=== PATIENT | male | born 1960 | race Caucasian/White ===

== ENCOUNTER → 2016-08-13 | Outpatient (CLI) | payer BC ==
[~2016-08-13] MED LIST: /ADVA50050; /ADVA50050 IN; /CELE20CA; /GLIM2TA; ACET65TA OR; ALBU83IN INH; AVAN8TAB3; CEFT500T OR; CEPACOL PO; CIPR500T19; CLAR5CHW OR; COLA100C2; DOXY100T PO; DUONSOL IN; ECOT325T5 PO; GLUC850T; GLUC850T PO; HYDR25TA6 OR; IBUP800T; IBUP800T OR; INSUDET SC; INSUH10VL SC; INSUHUMDS SC; IPRASOL4 IN; LEVEMIR INSULIN SC; LEVO175T3; LEVO200T4 PO; LEVO25TA5 PO; LEVO25TABR OR; LISI10TA4; LOPR50TA OR; LORATADINE; LOVA20TA2 PO; MUCI600T34 PO; MUCINEX PO; Omnicef PO; PAXI20TA PO; PRED10TA2 OR; PRED20TA PO; PROP10TAB; PROP10TAB PO; RANI150C PO; SING10TA31 PO; TYLE325T5 PO; VALS80CA OR; VENTAER IN; VICO5TAB; [UNRECOGNIZED DRUG - OTHER]; [UNRECOGNIZED DRUG - OTHER] PO; [UNRECOGNIZED DRUG - OTHER] PO
--- NOTE | 2016-08-14 02:56 | REP ---
Clinical: Right hip pain. Technique: AP and frog lateral views of the right hip. Findings: AP view suggests an acute avulsion fracture off the greater trochanter and correlation is recommended. Joint space demonstrates mild age-related degenerative changes including increase sclerosis to the acetabular roof with subtle spurring and mild joint space narrowing. Impression: Small acute avulsion fracture from the greater trochanter. Signed by Jayant Dodd MD 08/14/2016 02:47 A
--- NOTE | 2016-08-14 02:58 | REP ---
Clinical: Right lower extremity pain. Technique: AP and lateral views of the femur. Findings: Evaluation in conjunction with right hip series demonstrates a small avulsion fracture from the greater trochanter. Age-related degenerative changes at the hip and knee noted. No further acute fracture or dislocation identified. Impression: Small avulsion fracture from the greater trochanter. Age-related degenerative changes at the hip and knee. Signed by Jayant Dodd MD 08/14/2016 02:50 A
--- NOTE | 2016-08-14 03:04 | REP ---
Clinical: Acute right knee pain. Technique: AP, lateral views. Findings: In conjunction with right femur radiographs, age-related degenerative changes noted without evidence for acute fracture or dislocation. No obvious effusion. Impression: Age-related changes. No acute fracture or dislocation. Signed by Jayant Dodd MD 08/14/2016 02:55 A
--- NOTE | 2016-08-14 03:06 | REP ---
Clinical: Acute right ankle pain. Peak: AP, lateral, bilateral oblique views of the right ankle. Findings: Age-related degenerative changes are appreciated along with evidence to suggest old lateral malleolus fracture. Subtle superimposed acute injury to the distal fibula cannot be excluded. Mild lateral soft tissue swelling noted. Impression: Findings to suggest old injury involving the lateral malleolus. Cannot exclude subtle superimposed acute injury. Signed by Jayant Dodd MD 08/14/2016 02:58 A
== END | disposition home or self-care (01) ==
LOC: M RAD 16:23
PROVIDERS: ATTEND Nurse Practitioner Family
DX: M25.561 Pain in right knee (principal); M25.571 Pain in right ankle and joints of right foot; M25.551 Pain in right hip; S72.111A Displaced fracture of greater trochanter of right femur, initial encounter for closed fracture; X58.XXXA Exposure to other specified factors, initial encounter; Y92.9 Unspecified place or not applicable; Y93.9 Activity, unspecified; Y99.9 Unspecified external cause status

== ENCOUNTER → 2016-08-17 | Outpatient (CLI) | payer BC ==
[2016-08-17 11:39] LABS: MEAN CORPUSCULAR HEMOGLOBIN 31.3 pg (27.0-33.0); MEAN CORPUSCULAR HGB CONC 36.1 g/dl (32.0-36.5); MEAN CORPUSCULAR VOLUME 86.5 fl (80.0-96.0); RED CELL DISTRIBUTION WIDTH 13.7 % (11.5-14.5); WHITE BLOOD COUNT 5.7 K/mm3 (4.0-10.0)
[2016-08-17 12:02] LABS: ANION GAP 9 MEQ/L (8-16); BLOOD UREA NITROGEN 23 MG/DL (7-18); CALCIUM LEVEL 8.6 MG/DL (8.5-10.1); CARBON DIOXIDE LEVEL 27 MEQ/L (21-32); CHLORIDE LEVEL 106 MEQ/L (98-107); CREATININE FOR GFR 0.98 MG/DL (0.70-1.30); GLOMERULAR FILTRATION RATE > 60.0 (>56); GLUCOSE, FASTING 167 MG/DL (70-105); POTASSIUM SERUM 4.3 MEQ/L (3.5-5.1); SODIUM LEVEL 142 MEQ/L (136-145)
== END | disposition home or self-care (01) ==
LOC: M WUC 10:18
PROVIDERS: ATTEND Internal Medicine Cardiovascular Disease
DX: I10 Essential (primary) hypertension (principal); I42.0 Dilated cardiomyopathy; R00.2 Palpitations

== ENCOUNTER → 2016-08-17 | Outpatient (CLI) | payer BC ==
[2016-08-17 12:00] LABS: ALBUMIN/GLOBULIN RATIO 1.48 (1.00-1.93); ALKALINE PHOSPHATASE 100 U/L (45-117); ALT/SGPT 29 U/L (12-78); ANION GAP 8 MEQ/L (8-16); AST/SGOT 12 U/L (15-37); BILIRUBIN,TOTAL 0.9 MG/DL (0.2-1.0); BLOOD UREA NITROGEN 22 MG/DL (7-18); CALCIUM LEVEL 8.6 MG/DL (8.5-10.1); CARBON DIOXIDE LEVEL 28 MEQ/L (21-32); CHLORIDE LEVEL 105 MEQ/L (98-107); CHOLESTEROL LEVEL 151 MG/DL (<200); CREATININE FOR GFR 1.01 MG/DL (0.70-1.30); FREE T4 0.76 NG/DL (0.76-1.46); GLOMERULAR FILTRATION RATE > 60.0 (>56); GLUCOSE, FASTING 173 MG/DL (70-105); POTASSIUM SERUM 4.3 MEQ/L (3.5-5.1); SODIUM LEVEL 141 MEQ/L (136-145); TOTAL PROTEIN 6.7 GM/DL (6.4-8.2); TRIGLYCERIDES LEVEL 144 MG/DL (<150)
== END | disposition home or self-care (01) ==
LOC: M WUC 10:14
PROVIDERS: ATTEND Nurse Practitioner Family
DX: E11.65 Type 2 diabetes mellitus with hyperglycemia (principal); I10 Essential (primary) hypertension; E03.9 Hypothyroidism, unspecified; E78.4 Other hyperlipidemia

== ENCOUNTER 2017-02-13 14:43 | Emergency (ER) | payer BC ==
[~2017-02-13] VITALS: Ht 180.3 cm; Wt 115.0 kg
[~2017-02-13 14:43] MED LIST changes: -MUCI600T34 PO; +MUCI600T37 PO
[2017-02-13] MEDS: NITROGLYCERIN 0.4 MG SUBL TABLET SL PRN ×3 (15:03→15:15)
[2017-02-13] MEDS ORDERED: PARO20TA3 PO (15:09)
[2017-02-13] MEDS ORDERED: VITA2000 PO (15:09)
[2017-02-13] MEDS ORDERED: LOSA50TA20 PO (15:09)
[2017-02-13] MEDS ORDERED: ASPI81CH PO (15:09)
[2017-02-13] MEDS ORDERED: CARV25TA PO (15:09)
[2017-02-13] MEDS ORDERED: ATOR1TAB21 PO (15:09)
[2017-02-13] MEDS ORDERED: LEVO75TA4 PO (15:09)
[2017-02-13] MEDS ORDERED: COEN100C PO (15:09)
[2017-02-13 15:15] VITALS: BP 137/64
[2017-02-13] MEDS ORDERED: MORPHINE 2 MG/ML 1ML SYRINGE IV PRN (15:15)
[2017-02-13] MEDS ORDERED: ONDANSETRON 4MG/2ML VIAL (J2405) As Ordered ONE (15:26)
[2017-02-13] MEDS ORDERED: ONDANSETRON 4MG/2ML VIAL (J2405) IV ONE (15:30)
[2017-02-13 15:59] LABS: ALBUMIN 3.9 GM/DL (3.2-5.2); ALKALINE PHOSPHATASE 91 U/L (45-117); ALT/SGPT 35 U/L (12-78); ANION GAP 8 MEQ/L (8-16); AST/SGOT 11 U/L (15-37); BILIRUBIN,DIRECT 0.2 MG/DL (0.0-0.2); BILIRUBIN,TOTAL 0.8 MG/DL (0.2-1.0); BLOOD UREA NITROGEN 20 MG/DL (7-18); CALCIUM LEVEL 8.8 MG/DL (8.5-10.1); CARBON DIOXIDE LEVEL 26 MEQ/L (21-32); CHLORIDE LEVEL 109 MEQ/L (98-107); CREATININE FOR GFR 0.84 MG/DL (0.70-1.30); FREE T4 0.88 NG/DL (0.76-1.46); GLOMERULAR FILTRATION RATE > 60.0 (>56); GLUCOSE, FASTING 173 MG/DL (70-105); POTASSIUM SERUM 3.7 MEQ/L (3.5-5.1); SODIUM LEVEL 143 MEQ/L (136-145); TOTAL PROTEIN 6.9 GM/DL (6.4-8.2)
[2017-02-13 16:00] LABS: INR 0.99
[2017-02-13 16:28] LABS: BASO % 0.5 % (0.0-1.0); EOS # 0.1 K/mm3 (0.0-0.50); EOS % 1.2 % (0.0-3.0); LARGE UNSTAINED CELL # 0.1 K/mm3 (0.0-0.4); LARGE UNSTAINED CELL % 2.1 % (0.0-4.0); LYMPH # 1.2 K/mm3 (1.5-4.5); LYMPH % 22.7 % (24.0-44.0); MEAN CORPUSCULAR HEMOGLOBIN 32.3 pg (27.0-33.0); MEAN CORPUSCULAR HGB CONC 36.4 g/dl (32.0-36.5); MEAN CORPUSCULAR VOLUME 88.8 fl (80.0-96.0); MONO # 0.3 K/mm3 (0.0-0.8); MONO % 5.6 % (0.0-5.0); NEUTROPHILS # 3.5 K/mm3 (1.8-7.7); PLATELET COUNT, AUTOMATED 184 k/mm3 (150-450); RED CELL DISTRIBUTION WIDTH 13.6 % (11.5-14.5); WHITE BLOOD COUNT 5.2 K/mm3 (4.0-10.0)
--- NOTE | 2017-02-13 16:36 | REP ---
Chest one-view HISTORY: Chest pain Comparison: 09/20/2014 The lungs are clear. The heart is normal in size. The pulmonary vasculature is normal in appearance. Impression: No acute disease. Signed by Fransisco Persaud MD 02/13/2017 04:17 P
[2017-02-13] MEDS ORDERED: HEPARIN DRIP 25,000 UNITS in APPROPRIATE DILUENT 1 EA IV SCH (16:40)
[2017-02-13] MEDS ORDERED: HEPARIN SOD (PORCINE) 5000 UNITS/ML VIAL IV ONE (16:45)
[2017-02-13] MEDS ORDERED: CLOPIDOGREL 300 MG TAB (PLAVIX) PO ONE (16:45)
[2017-02-13] MEDS ORDERED: NS 1,000 ML IV SCH (17:15)
[2017-02-13 18:47] VITALS: BP 135/56
--- NOTE | 2017-02-13 21:00 | ECGEPIP ---
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
--- NOTE | 2017-02-13 21:01 | ECGEPIP ---
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
--- NOTE | 2017-02-13 21:01 | ECGEPIP ---
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
[2017-04-18] MEDS ORDERED: NITR4TASL SL (16:14)
[2017-04-18] MEDS ORDERED: LOVA40TA PO (16:14)
[2017-04-18] MEDS ORDERED: INSUDET SC (16:14)
[2017-04-18] MEDS ORDERED: CORE3.12 PO (16:14)
[2017-04-18] MEDS ORDERED: LEVO25TA5 PO (16:14)
[2017-04-18] MEDS ORDERED: TRUL10IN SC (16:14)
== END 2017-02-13 18:54 | disposition short-term general hospital (02) ==
LOC: M ED 14:43
DX: I20.0 Unstable angina (principal); E11.9 Type 2 diabetes mellitus without complications; K21.9 Gastro-esophageal reflux disease without esophagitis; I10 Essential (primary) hypertension; E78.5 Hyperlipidemia, unspecified; G47.33 Obstructive sleep apnea (adult) (pediatric); Z88.2 Allergy status to sulfonamides; Z88.8 Allergy status to other drugs, medicaments and biological substances; Z79.82 Long term (current) use of aspirin; Z79.4 Long term (current) use of insulin; Z79.899 Other long term (current) drug therapy; Z79.52 Long term (current) use of systemic steroids
CPT/HCPCS: 71010; 80048; 80076; 82550; 82553; 83690; 84439; 84443; 85025; 85610; 85730; 93005; 93041; 94760; 96374; 96375; 99285; J2405

== ENCOUNTER 2017-04-25 10:37 | Day surgery (SDC) | payer BC, SELFPAY ==
[~2017-04-25] VITALS: Ht 177.8 cm; Wt 114.8 kg
[~2017-04-25 10:37] MED LIST changes: +ASPI81CH PO; +ATOR1TAB21 PO; +CARV25TA PO; +COEN100C PO; +CORE3.12 PO; +LEVO75TA4 PO; +LOSA50TA20 PO; +LOVA40TA PO; +NITR4TASL SL; +PARO20TA3 PO; +TRUL10IN SC; +VITA2000 PO
[2017-04-25] MEDS ORDERED: PROPOFOL 200 MG/20 ML VIAL As Ordered ONE (11:33)
--- NOTE | 2017-04-25 12:13 | ROOR ---
Patient Name: Kuldip Reyna Procedure Date: 04/25/2017 11:43 AM Date of : 1960 Age: 56 Room: [facility] Gender: Male Note Status: Finalized Procedure: Colonoscopy Indications: Screening in patient at increased risk: Colorectal cancer in brother before age 60 Providers: To CASTELLON MD Referring MD: PORTILLO MCGOVERN MD, Galilea Roblero NP Requesting Provider: Medicines: Monitored Anesthesia Care Complications: No immediate complications. Procedure: Pre-Anesthesia Assessment: - The heart rate, respiratory rate, oxygen saturations, blood pressure, adequacy of pulmonary ventilation, and response to care were monitored throughout the procedure. The Colonoscope was introduced through the anus and advanced to the cecum, identified by appendiceal orifice and ileocecal valve. The colonoscopy was performed without difficulty. The patient tolerated the procedure well. The quality of the bowel preparation was good. Findings: The perianal and digital rectal examinations were normal. Two sessile polyps were found in the cecum. The polyps were 4 to 5 mm in size. These polyps were removed with a cold snare. Resection and retrieval were complete. A 5 mm polyp was found in the splenic flexure. The polyp was sessile. The polyp was removed with a cold snare. Resection and retrieval were complete. Two sessile polyps were found in the sigmoid colon. The polyps were 5 to 6 mm in size. These polyps were removed with a cold snare. Resection and retrieval were complete. A 4 mm polyp was found in the rectum. The polyp was sessile. The polyp was removed with a cold snare. Resection and retrieval were complete. Small Internal Hemorrhoids. The exam was otherwise without abnormality on direct and retroflexion views. Impression: - Two 4 to 5 mm polyps in the cecum, removed with a cold snare. Resected and retrieved. - One 5 mm polyp at the splenic flexure, removed with a cold snare. Resected and retrieved. - Two 5 to 6 mm polyps in the sigmoid colon, removed with a cold snare. Resected and retrieved. - One 4 mm polyp in the rectum, removed with a cold snare. Resected and retrieved. - Small Internal Hemorrhoids. - The examination was otherwise normal on direct and retroflexion views. Recommendation: - Repeat colonoscopy in 3 years for surveillance. - Telephone endoscopist for pathology results in 2 weeks. To Castellon MD To CASTELLON MD 04/25/2017 12:12:33 PM This report has been signed electronically. Number of Addenda: 0 Note Initiated On: 04/25/2017 11:43 AM Estimated Blood Loss: Estimated blood loss: none.
[2017-04-25 12:40] VITALS: BP 127/72
== END 2017-04-25 12:52 | disposition home or self-care (01) ==
LOC: M OPP 10:37 → EDSTATUS 11:45 → M OPP 12:52
PROVIDERS: ATTEND Internal Medicine Gastroenterology
DX: Z12.11 Encounter for screening for malignant neoplasm of colon (principal); Z80.0 Family history of malignant neoplasm of digestive organs; D12.0 Benign neoplasm of cecum; D12.3 Benign neoplasm of transverse colon; D12.5 Benign neoplasm of sigmoid colon; K62.1 Rectal polyp; K64.8 Other hemorrhoids; R00.8 Other abnormalities of heart beat; I25.10 Atherosclerotic heart disease of native coronary artery without angina pectoris; K21.9 Gastro-esophageal reflux disease without esophagitis; I10 Essential (primary) hypertension; E78.5 Hyperlipidemia, unspecified; E11.9 Type 2 diabetes mellitus without complications; E03.9 Hypothyroidism, unspecified; F41.9 Anxiety disorder, unspecified; J45.909 Unspecified asthma, uncomplicated; G47.30 Sleep apnea, unspecified; F17.220 Nicotine dependence, chewing tobacco, uncomplicated; Z88.8 Allergy status to other drugs, medicaments and biological substances; Z88.2 Allergy status to sulfonamides; Z79.82 Long term (current) use of aspirin; Z79.899 Other long term (current) drug therapy

== ENCOUNTER → 2017-06-18 | Outpatient (CLI) | payer BC ==
[2017-06-18 12:16] LABS: MEAN CORPUSCULAR HEMOGLOBIN 30.9 pg (27.0-33.0); MEAN CORPUSCULAR HGB CONC 36.1 g/dl (32.0-36.5); MEAN CORPUSCULAR VOLUME 85.7 fl (80.0-96.0); PLATELET COUNT, AUTOMATED 191 10^3/uL (150-450); WHITE BLOOD COUNT 6.2 10^3/uL (4.0-10.0)
[2017-06-18 12:41] LABS: ALKALINE PHOSPHATASE 92 U/L (45-117); ALT/SGPT 30 U/L (12-78); ANION GAP 8 MEQ/L (8-16); AST/SGOT 10 U/L (7-37); BILIRUBIN,TOTAL 0.7 MG/DL (0.2-1.0); BLOOD UREA NITROGEN 18 MG/DL (7-18); CALCIUM LEVEL 8.5 MG/DL (8.5-10.1); CARBON DIOXIDE LEVEL 27 MEQ/L (21-32); CHLORIDE LEVEL 107 MEQ/L (98-107); CHOLESTEROL LEVEL 125 MG/DL (<200); CREATININE FOR GFR 1.03 MG/DL (0.70-1.30); GLOMERULAR FILTRATION RATE > 60.0 (>56); GLUCOSE, FASTING 165 MG/DL (70-105); POTASSIUM SERUM 4.4 MEQ/L (3.5-5.1); SODIUM LEVEL 142 MEQ/L (136-145); TRIGLYCERIDES LEVEL 125 MG/DL (<150)
[2017-06-18 12:42] LABS: ALBUMIN/GLOBULIN RATIO 1.38 (1.00-1.93); FREE T4 0.83 NG/DL (0.76-1.46); TOTAL PROTEIN 6.9 GM/DL (6.4-8.2)
== END ==
LOC: M WUC 09:03
PROVIDERS: ATTEND Internal Medicine Endocrinology, Diabetes & Metabolism
DX: E11.65 Type 2 diabetes mellitus with hyperglycemia (principal); Z79.4 Long term (current) use of insulin

== ENCOUNTER → 2017-06-18 | Outpatient (CLI) | payer BC ==
[2017-06-18 12:14] LABS: BASO # 0.1 10^3/uL (0.0-0.2); BASO % 0.8 % (0.0-1.0); EOS # 0.1 10^3/uL (0.0-0.50); EOS % 1.8 % (0.0-3.0); IMMATURE GRANULOCYTE % 0.5 % (0-0); LYMPH # 1.9 10^3/uL (1.5-4.5); LYMPH % 31.5 % (24.0-44.0); MEAN CORPUSCULAR HEMOGLOBIN 30.8 pg (27.0-33.0); MEAN CORPUSCULAR HGB CONC 35.8 g/dl (32.0-36.5); MEAN CORPUSCULAR VOLUME 86.1 fl (80.0-96.0); MONO # 0.4 10^3/uL (0.0-0.8); MONO % 7.1 % (0.0-5.0); NEUTROPHILS # 3.6 10^3/uL (1.8-7.7); NEUTROPHILS % 58.3 % (36.0-66.0); PLATELET COUNT, AUTOMATED 188 10^3/uL (150-450); WHITE BLOOD COUNT 6.1 10^3/uL (4.0-10.0)
[2017-06-18 12:40] LABS: ALBUMIN/GLOBULIN RATIO 1.43 (1.00-1.93); ALKALINE PHOSPHATASE 93 U/L (45-117); ALT/SGPT 28 U/L (12-78); ANION GAP 8 MEQ/L (8-16); AST/SGOT 10 U/L (7-37); BILIRUBIN,TOTAL 0.7 MG/DL (0.2-1.0); BLOOD UREA NITROGEN 18 MG/DL (7-18); CALCIUM LEVEL 8.3 MG/DL (8.5-10.1); CARBON DIOXIDE LEVEL 26 MEQ/L (21-32); CHLORIDE LEVEL 107 MEQ/L (98-107); CHOLESTEROL LEVEL 125 MG/DL (<200); CREATININE FOR GFR 1.02 MG/DL (0.70-1.30); FREE T4 0.82 NG/DL (0.76-1.46); GLOMERULAR FILTRATION RATE > 60.0 (>56); GLUCOSE, FASTING 165 MG/DL (70-105); POTASSIUM SERUM 4.4 MEQ/L (3.5-5.1); SODIUM LEVEL 141 MEQ/L (136-145); TOTAL PROTEIN 6.8 GM/DL (6.4-8.2); TRIGLYCERIDES LEVEL 125 MG/DL (<150)
== END ==
LOC: M WUC 08:59
PROVIDERS: ATTEND Nurse Practitioner Family
DX: F32.9 Major depressive disorder, single episode, unspecified (principal); I10 Essential (primary) hypertension; E03.9 Hypothyroidism, unspecified; E11.65 Type 2 diabetes mellitus with hyperglycemia

== ENCOUNTER 2017-08-24 20:51 | Emergency (ER) | payer OTHER, BC ==
[2017-08-24 21:26] LABS: BASO # 0.1 10^3/uL (0.0-0.2); BASO % 0.6 % (0.0-1.0); EOS # 0.1 10^3/uL (0.0-0.50); EOS % 1.2 % (0.0-3.0); HEMATOCRIT 42.9 % (42.0-52.0); HEMOGLOBIN 15.6 g/dl (14.0-18.0); IMMATURE GRANULOCYTE % 0.6 % (0-3.0); LYMPH # 2.4 10^3/uL (1.5-4.5); LYMPH % 26.6 % (24.0-44.0); MEAN CORPUSCULAR HEMOGLOBIN 31.4 pg (27.0-33.0); MEAN CORPUSCULAR HGB CONC 36.4 g/dl (32.0-36.5); MEAN CORPUSCULAR VOLUME 86.3 fl (80.0-96.0); MONO # 0.7 10^3/uL (0.0-0.8); MONO % 7.9 % (0.0-5.0); NEUTROPHILS # 5.6 10^3/uL (1.8-7.7); NEUTROPHILS % 63.1 % (36.0-66.0); PLATELET COUNT, AUTOMATED 183 10^3/uL (150-450); RED BLOOD COUNT 4.97 10^6/uL (4.30-6.10); RED CELL DISTRIBUTION WIDTH 13.2 % (11.5-14.5); WHITE BLOOD COUNT 8.9 10^3/uL (4.0-10.0)
[2017-08-24 21:37] LABS: INR 1.01; PARTIAL THROMBOPLASTIN TIME 27.9 SECONDS (26.8-37.9); PROTHROMBIN TIME 13.4 SECONDS (12.4-14.5)
[2017-08-24] MEDS: ONDANSETRON 4MG/2ML VIAL (J2405) IV (21:45)
[2017-08-24 21:49] LABS: ALKALINE PHOSPHATASE 101 U/L (45-117); ALT/SGPT 35 U/L (12-78); ANION GAP 9 MEQ/L (8-16); AST/SGOT 20 U/L (7-37); BLOOD UREA NITROGEN 19 MG/DL (7-18); CALCIUM LEVEL 8.8 MG/DL (8.5-10.1); CARBON DIOXIDE LEVEL 27 MEQ/L (21-32); CHLORIDE LEVEL 107 MEQ/L (98-107); CREATININE FOR GFR 1.27 MG/DL (0.70-1.30); GLOMERULAR FILTRATION RATE > 60.0 (>56); GLUCOSE, FASTING 129 MG/DL (70-100); POTASSIUM SERUM 3.6 MEQ/L (3.5-5.1); SODIUM LEVEL 143 MEQ/L (136-145)
[2017-08-24 21:50] LABS: ALBUMIN 4.2 GM/DL (3.2-5.2); ALBUMIN/GLOBULIN RATIO 1.27 (1.00-1.93); BILIRUBIN,DIRECT 0.1 MG/DL (0.0-0.2); BILIRUBIN,TOTAL 0.5 MG/DL (0.2-1.0); LIPASE 146 U/L (73-393); TOTAL PROTEIN 7.5 GM/DL (6.4-8.2); TROPONIN I 0.04 NG/ML (< 0.10)
[2017-08-24] MEDS: LORazepam 2 MG/ML VIAL (J2060) IV (21:54)
[2017-08-24] MEDS: ASPIRIN 81 MG CHEW TABLET PO (21:54)
[2017-08-24] MEDS: ACETAMINOPHEN TAB 650MG DOSE (2X325MG) PO (21:54)
[2017-08-24] MEDS: NITROGLYCERIN 0.4 MG SUBL TABLET SL ×2 (21:54→22:16)
[2017-08-24 22:12] LABS: CK-MB VALUE MASS 3.4 NG/ML (0.0-3.6)
[2017-08-24 22:13] LABS: CPK CREATINE PHOSPHOKINASE 1217 U/L (39-308); MB/CK RELATIVE INDEX 0.27 (< OR =4)
[2017-08-24] MEDS: MORPHINE 4 MG/ML 1ML VIAL (J2270) IV (22:35)
[2017-08-24] MEDS ORDERED: ISOVUE-370 76% 100ML VIAL (Q9967) As Ordered (22:40)
[2017-08-25 01:36] LABS: BEDSIDE GLUCOSE 109 MG/DL (70-105)
== END 2017-08-25 01:46 | disposition short-term general hospital (02) ==
LOC: M ED 08-25 01:46
DX: I20.0 Unstable angina (principal); I44.7 Left bundle-branch block, unspecified; I51.9 Heart disease, unspecified; Z79.82 Long term (current) use of aspirin; Z79.84 Long term (current) use of oral hypoglycemic drugs; Z79.899 Other long term (current) drug therapy; Z88.0 Allergy status to penicillin; Z88.8 Allergy status to other drugs, medicaments and biological substances; Z88.2 Allergy status to sulfonamides
CPT/HCPCS: J2270

== ENCOUNTER → 2018-03-13 | Outpatient (CLI) | payer OTHER ==
[2018-03-13 17:37] LABS: BASO % 0.6 % (0.0-1.0); EOS # 0.2 10^3/uL (0.0-0.50); EOS % 2.4 % (0.0-3.0); HEMATOCRIT 43.9 % (42.0-52.0); HEMOGLOBIN 15.3 g/dl (13.5-17.5); IMMATURE GRANULOCYTE % 0.5 % (0-3.0); LYMPH # 2.3 10^3/uL (1.5-4.5); MEAN CORPUSCULAR HEMOGLOBIN 30.4 pg (27.0-33.0); MEAN CORPUSCULAR HGB CONC 34.9 g/dl (32.0-36.5); MEAN CORPUSCULAR VOLUME 87.1 fl (80.0-96.0); MONO # 0.6 10^3/uL (0.0-0.8); MONO % 8.9 % (0.0-5.0); NEUTROPHILS # 3.5 10^3/uL (1.8-7.7); NEUTROPHILS % 52.6 % (36.0-66.0); PLATELET COUNT, AUTOMATED 186 10^3/uL (150-450); RED BLOOD COUNT 5.04 10^6/uL (4.30-6.10); RED CELL DISTRIBUTION WIDTH 13.5 % (11.5-14.5); WHITE BLOOD COUNT 6.6 10^3/uL (4.0-10.0)
[2018-03-13 18:06] LABS: ESTIMATED AVERAGE GLUCOSE 157 MG/DL (60-110); HEMOGLOBIN A1c 7.1 %
[2018-03-13 18:09] LABS: ALBUMIN 4.3 GM/DL (3.2-5.2); ALBUMIN/GLOBULIN RATIO 1.54 (1.00-1.93); ALKALINE PHOSPHATASE 96 U/L (45-117); ALT/SGPT 33 U/L (12-78); ANION GAP 10 MEQ/L (8-16); AST/SGOT 15 U/L (7-37); BILIRUBIN,TOTAL 0.7 MG/DL (0.2-1.0); BLOOD UREA NITROGEN 14 MG/DL (7-18); CARBON DIOXIDE LEVEL 28 MEQ/L (21-32); CHLORIDE LEVEL 107 MEQ/L (98-107); CHOLESTEROL LEVEL 135 MG/DL (<200); CHOLESTEROL RISK RATIO 3.857 (<5); CREATININE FOR GFR 0.88 MG/DL (0.70-1.30); FREE T4 0.78 NG/DL (0.76-1.46); GLOMERULAR FILTRATION RATE > 60.0 (>56); GLUCOSE, FASTING 102 MG/DL (70-100); HDL CHOLESTEROL 35 MG/DL (>40); LDL CHOLESTEROL 76.2 MG/DL (<100); NON-HDL-C 100 MG/DL; POTASSIUM SERUM 4.3 MEQ/L (3.5-5.1); SODIUM LEVEL 145 MEQ/L (136-145); TOTAL PROTEIN 7.1 GM/DL (6.4-8.2); TRIGLYCERIDES LEVEL 119 MG/DL (<150)
== END ==
LOC: M WUC 11:15
DX: F32.9 Major depressive disorder, single episode, unspecified (principal); I10 Essential (primary) hypertension; E03.9 Hypothyroidism, unspecified; E11.65 Type 2 diabetes mellitus with hyperglycemia
CPT/HCPCS: 84443

== ENCOUNTER 2018-05-17 22:58 | Emergency (ER) | payer OTHER ==
[2018-05-17] MEDS: TETRACAINE 0.5% OPHTH SOLN 4ML OU (23:42)
[2018-05-17] MEDS: FLUORESCEIN OPHTH 1 MG STRIP OU (23:42)
== END 2018-05-18 00:12 | disposition home or self-care (01) ==
LOC: M ED 22:58
DX: S00.12XA Contusion of left eyelid and periocular area, initial encounter (principal); W22.8XXA Striking against or struck by other objects, initial encounter; Y92.89 Other specified places as the place of occurrence of the external cause; E11.9 Type 2 diabetes mellitus without complications; I12.9 Hypertensive chronic kidney disease with stage 1 through stage 4 chronic kidney disease, or unspecified chronic kidney disease; N18.9 Chronic kidney disease, unspecified; I25.2 Old myocardial infarction; Z79.899 Other long term (current) drug therapy; Z79.4 Long term (current) use of insulin
CPT/HCPCS: 99283

== ENCOUNTER → 2018-08-18 | Outpatient (REF) | payer OTHER ==
[~2018-08-18] MED LIST changes: +IPRA0.00 IN; -IPRASOL4 IN; -LOSA50TA20 PO; +LOSA50TA88 PO
[2018-08-18 16:51] LABS: BASO # 0.1 10^3/uL (0.0-0.2); BASO % 0.7 % (0.0-1.0); EOS # 0.1 10^3/uL (0.0-0.50); EOS % 1.8 % (0.0-3.0); HEMATOCRIT 45.8 % (42.0-52.0); HEMOGLOBIN 15.9 g/dl (13.5-17.5); LYMPH # 1.9 10^3/uL (1.5-4.5); LYMPH % 26.9 % (24.0-44.0); MEAN CORPUSCULAR HEMOGLOBIN 30.4 pg (27.0-33.0); MEAN CORPUSCULAR HGB CONC 34.7 g/dl (32.0-36.5); MEAN CORPUSCULAR VOLUME 87.6 fl (80.0-96.0); MONO # 0.6 10^3/uL (0.0-0.8); NEUTROPHILS # 4.4 10^3/uL (1.8-7.7); PLATELET COUNT, AUTOMATED 192 10^3/uL (150-450); RED BLOOD COUNT 5.23 10^6/uL (4.30-6.10); WHITE BLOOD COUNT 7.1 10^3/uL (4.0-10.0)
[2018-08-18 17:00] LABS: ALBUMIN 4.1 GM/DL (3.2-5.2); ALT/SGPT 27 U/L (12-78); BILIRUBIN,TOTAL 0.8 MG/DL (0.2-1.0); BLOOD UREA NITROGEN 19 MG/DL (7-18); CALCIUM LEVEL 8.8 MG/DL (8.5-10.1); CARBON DIOXIDE LEVEL 29 MEQ/L (21-32); CHLORIDE LEVEL 107 MEQ/L (98-107); CHOLESTEROL LEVEL 126 MG/DL (<200); CHOLESTEROL RISK RATIO 3.818 (<5); CREATININE FOR GFR 0.96 MG/DL (0.70-1.30); FREE T4 0.87 NG/DL (0.76-1.46); GLOMERULAR FILTRATION RATE > 60.0 (>56); GLUCOSE, FASTING 133 MG/DL (70-100); HDL CHOLESTEROL 33 MG/DL (>40); LDL CHOLESTEROL 69 MG/DL (<100); NON-HDL-C 93 MG/DL; POTASSIUM SERUM 4.1 MEQ/L (3.5-5.1); SODIUM LEVEL 142 MEQ/L (136-145); TOTAL PROTEIN 6.9 GM/DL (6.4-8.2); TRIGLYCERIDES LEVEL 122 MG/DL (<150)
[2018-08-18 17:06] LABS: HEMOGLOBIN A1c 7.2 %
[2018-08-18 17:25] LABS: MALB URINE SIEMENS 33.3 MG/L; MAU/CREAT RATIO 14.3 MCG/MG (0.0-30.0)
== END ==
LOC: M SFHCCLAY 10:57
PROVIDERS: ATTEND Nurse Practitioner Family
DX: E11.65 Type 2 diabetes mellitus with hyperglycemia (principal); I10 Essential (primary) hypertension; F32.9 Major depressive disorder, single episode, unspecified; E03.9 Hypothyroidism, unspecified

== ENCOUNTER → 2018-12-01 | Outpatient (REF) | payer OTHER ==
[~2018-12-01] MED LIST changes: -/ADVA50050; -/ADVA50050 IN; -/CELE20CA; -/GLIM2TA; +ADVA1AER2; +ADVA1AER2 IN; +AMAR1TAB5; -ASPI81CH PO; +ASPI81CH49 PO; +CELE1CAP4
[2018-12-01 16:28] LABS: BLOOD UREA NITROGEN 20 MG/DL (7-18); CREATININE FOR GFR 0.95 MG/DL (0.70-1.30); GLOMERULAR FILTRATION RATE > 60.0 (>56)
== END ==
LOC: M LABDRAW1 15:54
PROVIDERS: ATTEND Orthopaedic Surgery Sports Medicine
DX: R22.32 Localized swelling, mass and lump, left upper limb (principal)

== ENCOUNTER 2018-12-14 04:22 | Emergency (ER) | payer OTHER ==
[~2018-12-14] VITALS: Ht 180.3 cm; Wt 117.7 kg
[2018-12-14 04:54] LABS: BASO % 0.1 % (0.0-1.0); EOS # 0.1 10^3/uL (0.0-0.50); EOS % 0.4 % (0.0-3.0); HEMATOCRIT 44.2 % (42.0-52.0); HEMOGLOBIN 15.9 g/dl (13.5-17.5); LYMPH # 1.6 10^3/uL (1.5-4.5); LYMPH % 11.7 % (24.0-44.0); MEAN CORPUSCULAR HEMOGLOBIN 31.1 pg (27.0-33.0); MEAN CORPUSCULAR VOLUME 86.3 fl (80.0-96.0); MONO # 0.6 10^3/uL (0.0-0.8); MONO % 4.6 % (0.0-5.0); NEUTROPHILS # 11.2 10^3/uL (1.8-7.7); NEUTROPHILS % 82.8 % (36.0-66.0); PLATELET COUNT, AUTOMATED 192 10^3/uL (150-450); RED BLOOD COUNT 5.12 10^6/uL (4.30-6.10); WHITE BLOOD COUNT 13.6 10^3/uL (4.0-10.0)
[2018-12-14] MEDS ORDERED: TRUL0.5I IM (04:54)
[2018-12-14] MEDS ORDERED: CARV6.25 PO (04:54)
[2018-12-14] MEDS ORDERED: CLOP75TA2 PO (04:54)
[2018-12-14] MEDS ORDERED: LEVO100T5 PO (04:54)
[2018-12-14] MEDS ORDERED: ATOR40TA75 PO (04:54)
[2018-12-14] MEDS ORDERED: GI COCKTAIL 50ML BTL(HYOSCYAMINE/MAALOX/LIDOCAINE VISCOUS)(1:3:1) PO ONE (05:00)
[2018-12-14] MEDS ORDERED: MORPHINE 4 MG/ML 1ML VIAL/SYRINGE (J2270) IV ONE (05:00)
[2018-12-14] MEDS ORDERED: MORPHINE 4 MG/ML 1ML VIAL/SYRINGE (J2270) As Ordered ONE (05:01)
[2018-12-14 05:05] LABS: INR 1.05; PROTHROMBIN TIME 13.8 SECONDS (12.1-14.4)
[2018-12-14 05:17] LABS: ALBUMIN 3.6 GM/DL (3.2-5.2); ALT/SGPT 28 U/L (12-78); BILIRUBIN,DIRECT 0.2 MG/DL (0.0-0.2); BILIRUBIN,TOTAL 0.9 MG/DL (0.2-1.0); BLOOD UREA NITROGEN 15 MG/DL (7-18); CALCIUM LEVEL 8.5 MG/DL (8.5-10.1); CARBON DIOXIDE LEVEL 24 MEQ/L (21-32); CHLORIDE LEVEL 110 MEQ/L (98-107); CK-MB VALUE MASS 2.6 NG/ML (<3.6); CPK CREATINE PHOSPHOKINASE 144 U/L (39-308); CREATININE FOR GFR 1.07 MG/DL (0.70-1.30); GLOMERULAR FILTRATION RATE > 60.0 (>56); GLUCOSE, FASTING 243 MG/DL (70-100); LIPASE 177 U/L (73-393); MB/CK RELATIVE INDEX 1.81 (< OR =4); POTASSIUM SERUM 3.9 MEQ/L (3.5-5.1); SODIUM LEVEL 143 MEQ/L (136-145); TOTAL PROTEIN 6.2 GM/DL (6.4-8.2); TROPONIN I < 0.02 NG/ML (< 0.10)
[2018-12-14] MEDS ORDERED: PANTOPRAZOLE 40MG INJ (PROTONIX) (C9113) IV ONE (05:30)
[2018-12-14] MEDS ORDERED: METOCLOPRAMIDE INJ 10MG/2ML VIAL (J2765) IV ONE (05:30)
[2018-12-14] MEDS ORDERED: PROT1TAB2 PO (05:58)
--- NOTE | 2018-12-14 07:14 | ECGEPIP ---
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
[2018-12-14 09:47] LABS: CK-MB VALUE MASS 1.9 NG/ML (<3.6); CPK CREATINE PHOSPHOKINASE 112 U/L (39-308); TROPONIN I < 0.02 NG/ML (< 0.10)
[2018-12-14 12:06] VITALS: BP 112/69
--- NOTE | 2018-12-15 07:44 | ECGEPIP ---
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
--- NOTE | 2018-12-21 11:28 | REP ---
CHEST, SINGLE VIEW: There is no evidence of acute infiltrate. No pleural effusion is seen. The heart is normal in size. The mediastinal silhouette is unremarkable. The visualized osseous structures are intact. IMPRESSION: No acute pulmonary disease. Electronically Signed by Massimo Casillas MD 12/21/2018 04:20 P
== END 2018-12-14 12:14 | disposition home or self-care (01) ==
LOC: EDBD 04:22 → M ED 04:22
DX: K21.9 Gastro-esophageal reflux disease without esophagitis (principal); I44.7 Left bundle-branch block, unspecified; E11.9 Type 2 diabetes mellitus without complications; I10 Essential (primary) hypertension; E78.5 Hyperlipidemia, unspecified; Z79.899 Other long term (current) drug therapy; Z79.4 Long term (current) use of insulin; Z79.82 Long term (current) use of aspirin; Z79.01 Long term (current) use of anticoagulants; Z88.1 Allergy status to other antibiotic agents; Z88.2 Allergy status to sulfonamides; Z88.8 Allergy status to other drugs, medicaments and biological substances
CPT/HCPCS: 71045; 80048; 80076; 82550; 82553; 83690; 84484; 85025; 85610; 93005; 93041; 94760; 96374; 96375; 99285; C9113; J2270; J2765

== ENCOUNTER 2019-04-15 06:19 | Emergency (ER) | payer OTHER ==
[~2019-04-15] VITALS: Ht 177.8 cm; Wt 118.8 kg
[~2019-04-15 06:19] MED LIST changes: +ATOR40TA75 PO; +CARV6.25 PO; +CLOP75TA2 PO; +LEVO100T5 PO; +PROT1TAB2 PO; +TRUL0.5I IM
[2019-04-15 06:42] LABS: BASO % 0.4 % (0.0-1.0); EOS # 0.1 10^3/uL (0.0-0.5); EOS % 1.7 % (0.0-3.0); HEMATOCRIT 39.9 % (42.0-52.0); HEMOGLOBIN 14.2 g/dl (13.5-17.5); LYMPH # 1.7 10^3/uL (1.5-5.0); MEAN CORPUSCULAR HEMOGLOBIN 31.3 pg (27.0-33.0); MEAN CORPUSCULAR HGB CONC 35.6 g/dl (32.0-36.5); MEAN CORPUSCULAR VOLUME 88.1 fl (80.0-96.0); MONO # 0.6 10^3/uL (0.0-0.8); MONO % 7.7 % (0.0-5.0); NEUTROPHILS # 4.8 10^3/uL (1.5-8.5); NEUTROPHILS % 65.4 % (36.0-66.0); PLATELET COUNT, AUTOMATED 182 10^3/uL (150-450); RED BLOOD COUNT 4.53 10^6/uL (4.30-6.10); WHITE BLOOD COUNT 7.3 10^3/uL (4.0-10.0)
[2019-04-15] MEDS ORDERED: MORPHINE 4 MG/ML 1ML VIAL/SYRINGE (J2270) IV PRN (06:45)
[2019-04-15 06:54] LABS: INR 1.11
[2019-04-15 07:13] LABS: ALBUMIN 3.5 GM/DL (3.2-5.2); ALT/SGPT 35 U/L (12-78); BILIRUBIN,DIRECT 0.2 MG/DL (0.0-0.2); BILIRUBIN,TOTAL 0.9 MG/DL (0.2-1.0); BLOOD UREA NITROGEN 17 MG/DL (7-18); CALCIUM LEVEL 8.5 MG/DL (8.5-10.1); CARBON DIOXIDE LEVEL 25 MEQ/L (21-32); CHLORIDE LEVEL 108 MEQ/L (98-107); CK-MB VALUE MASS 1.7 NG/ML (<3.6); CPK CREATINE PHOSPHOKINASE 121 U/L (39-308); CREATININE FOR GFR 1.06 MG/DL (0.70-1.30); GLOMERULAR FILTRATION RATE > 60.0 (>56); GLUCOSE, FASTING 241 MG/DL (70-100); LIPASE 110 U/L (73-393); POTASSIUM SERUM 3.6 MEQ/L (3.5-5.1); SODIUM LEVEL 142 MEQ/L (136-145); TOTAL PROTEIN 6.2 GM/DL (6.4-8.2); TROPONIN I < 0.02 NG/ML (< 0.10)
--- NOTE | 2019-04-15 08:11 | REP ---
Portable chest, 06:33 a.m., single AP view with the patient upright: Comparison is 12/14/2018. The lung guillaume are clear. The cardiac size is normal. The viviana, mediastinum, and skeletal structures are unremarkable. Impression: Negative portable chest. Electronically Signed by Massimo Olmos MD 04/15/2019 08:03 A
[2019-04-15] MEDS ORDERED: ISOVUE-370 76% 100ML VIAL (Q9967) As Ordered ONE (08:41)
--- NOTE | 2019-04-15 09:34 | REP ---
CT of the abdomen and pelvis with IV contrast, without bowel contrast: The studies performed. Contiguous with the chest CT utilizing the same IV contrast bolus. Studies performed for abdominal pain. Comparison is 07/07/2011. The visualized lung guillaume are unremarkable. The hepatic parenchyma is hypodense as previously compatible with hepato steatosis. The hepatic parenchyma is otherwise unremarkable. Spleen is upper normal size measuring 16 cm craniocaudad length in the midclavicular line. The gallbladder and pancreas are unremarkable. Spleen is enlarged measuring 16 cm AP diameter. The adrenals are unremarkable. The kidneys are unremarkable. The abdominal aorta is unremarkable. There is no periaortic adenopathy or mass. There is no bowel distension or obstruction. There is wall thickening of the sigmoid colon, nonspecific but could represent colitis in the appropriate clinical setting. Pelvis: The the patient has an appendectomy. The bladder is unremarkable. There is no adenopathy or ascites. Impression: Splenomegaly. The liver is upper normal size. Hepato steatosis. There is no ascites. Wall thickening of the sigmoid colon, nonspecific but could represent colitis in the appropriate clinical setting. Otherwise, negative CT of the abdomen and pelvis. Electronically Signed by Massimo Olmos MD 04/15/2019 09:26 A
--- NOTE | 2019-04-15 09:58 | REP ---
CT of the chest for chest pain with IV contrast, CT pulmonary angiography: There are no emboli in the pulmonary trunk or central pulmonary arteries. There are no emboli in the pulmonary lobe or segment branches. There are no infiltrates or pleural effusions. There are no masses or nodules. There is no mediastinal, hilar or axillary lymphadenopathy. The thoracic aorta is unremarkable. Cardiac size is upper normal. There is no pericardial effusion. The visualized upper abdominal structures are unremarkable except that the spleen is enlarged measuring 16 cm AP diameter. Impression: There are no pulmonary emboli. Splenomegaly. Otherwise, negative CT study of the chest. Electronically Signed by Massimo Olmos MD 04/15/2019 09:50 A
--- NOTE | 2019-04-15 10:57 | ECGEPIP ---
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
--- NOTE | 2019-04-15 11:00 | ECGEPIP ---
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
[2019-04-15 11:22] LABS: CK-MB VALUE MASS 2.1 NG/ML (<3.6); CPK CREATINE PHOSPHOKINASE 108 U/L (39-308); MB/CK RELATIVE INDEX 1.94 (< OR =4); TROPONIN I < 0.02 NG/ML (< 0.10)
[2019-04-15 11:30] VITALS: BP 131/68
[2019-04-15] MEDS ORDERED: CIPR500T3 PO (12:02)
[2019-04-15] MEDS ORDERED: FLAG500T PO (12:02)
[2019-04-15] MEDS ORDERED: metroNIDAZOLE (FLAGYL) 500 MG TAB PO ONE (12:15)
[2019-04-15] MEDS ORDERED: CIPROFLOXACIN 500 MG TAB PO ONE (12:15)
== END 2019-04-15 12:53 | disposition home or self-care (01) ==
LOC: M ED 06:19
DX: A09 Infectious gastroenteritis and colitis, unspecified (principal); R07.89 Other chest pain; R16.1 Splenomegaly, not elsewhere classified; K75.81 Nonalcoholic steatohepatitis (NASH); I25.10 Atherosclerotic heart disease of native coronary artery without angina pectoris; E11.9 Type 2 diabetes mellitus without complications; Z95.5 Presence of coronary angioplasty implant and graft; Z88.2 Allergy status to sulfonamides; Z88.8 Allergy status to other drugs, medicaments and biological substances; Z88.0 Allergy status to penicillin; Z88.1 Allergy status to other antibiotic agents; Z79.899 Other long term (current) drug therapy
CPT/HCPCS: 71045; 71275; 74177; 80048; 80076; 82550; 82553; 83690; 85025; 85610; 93005; 93041; 94760; 99285; Q9967

== ENCOUNTER → 2019-07-16 | Outpatient (CLI) | payer OTHER ==
[~2019-07-16] MED LIST changes: +CIPR500T3 PO; +FLAG500T PO
--- NOTE | 2019-07-16 14:29 | REP ---
CHEST, TWO VIEWS: There is no evidence of acute infiltrate. No pleural effusion is seen. The heart is normal in size. The mediastinal silhouette is unremarkable. The visualized osseous structures are intact. IMPRESSION: No acute pulmonary disease. Electronically Signed by Massimo Casillas MD 07/17/2019 03:21 P
[2019-07-16 16:07] LABS: HEMOGLOBIN 15.6 g/dl (13.5-17.5); MEAN CORPUSCULAR HEMOGLOBIN 30.2 pg (27.0-33.0); MEAN CORPUSCULAR HGB CONC 33.9 g/dl (32.0-36.5); PLATELET COUNT, AUTOMATED 167 10^3/uL (150-450); RED BLOOD COUNT 5.17 10^6/uL (4.30-6.10); WHITE BLOOD COUNT 5.3 10^3/uL (4.0-10.0)
[2019-07-16 16:17] LABS: INR 1.08; PROTHROMBIN TIME 13.7 SECONDS (11.8-14.0)
== END ==
LOC: M CLY 12:04
PROVIDERS: ATTEND Orthopaedic Surgery Sports Medicine
DX: M67.432 Ganglion, left wrist (principal)

== ENCOUNTER 2019-07-30 09:12 | Day surgery (SDC) | payer OTHER ==
[~2019-07-30] VITALS: Ht 177.8 cm; Wt 118.8 kg
[~2019-07-30 09:12] MED LIST changes: -COEN100C PO; +LIDOCAINE 2% INJ 100 MG/5 ML SDV (FOR ANES.) As Ordered ONE; +LR 1,000 ML IV ONE; +MIDAZOLAM INJ 2 MG/2 ML VIAL (J2250) As Ordered ONE; +ONDANSETRON 4MG/2ML VIAL (J2405) As Ordered ONE; +UBID100C6 PO; +ceFAZolin SOD 2 GM in IV 1 EA IV ONE; +fentaNYL 100 MCG/2 ML INJECTION (J3010) As Ordered ONE; +propofoL 200 MG/20 ML VIAL As Ordered ONE
[2019-07-30] MEDS ORDERED: LIDOCAINE 1% SDV INJ 30 ML VIAL As Ordered ONE (10:37)
[2019-07-30] MEDS ORDERED: MIDAZOLAM INJ 2 MG/2 ML VIAL (J2250) As Ordered ONE (10:38)
[2019-07-30] MEDS ORDERED: ACETAMINOPHEN 1000MG 100ML IV BTL (OFIRMEV) (J0131 PER 10MG) As Ordered ONE (11:22)
[2019-07-30] MEDS ORDERED: KETOROLAC 60 MG/2 ML VIAL (J1885) As Ordered ONE (11:37)
[2019-07-30] MEDS ORDERED: propofoL 200 MG/20 ML VIAL As Ordered ONE (11:46)
[2019-07-30] MEDS ORDERED: ONDANSETRON 4MG/2ML VIAL (J2405) IV PRN (12:45)
[2019-07-30] MEDS ORDERED: oxyCODONE 5MG TAB PO PRN (12:45)
[2019-07-30] MEDS ORDERED: LR 1,000 ML IV SCH (12:45)
--- NOTE | 2019-07-30 12:58 | RO ---
DATE OF PROCEDURE: 07/30/2019 PREOPERATIVE DIAGNOSIS: Left wrist ganglion cyst on the volar side. POSTOPERATIVE DIAGNOSIS: Left wrist ganglion cyst on the volar side. PLANNED PROCEDURE: Left wrist ganglion cyst excision. PROCEDURE PERFORMED: Left wrist ganglion cyst excision. SURGEON: Dr. Tristan Fatima QUANTITATIVE ANALYST MARKETING: ANESTHESIA: Local plus MAC. PLASTIC ROLLER: Dr. Justin OPERATIVE PREAMBLE: This 58-year-old man had a ganglion cyst on MRI and clinical exam on the volar aspect of his left wrist. He tried to do an aspiration by himself and only clear fluid came out and it came back. We talked about the pros, cons, risks, benefits, and continued nonsurgical management versus surgical excision. These risks were reiterated in preoperative holding. I marked the left upper extremity. We proceeded to surgery. OPERATIVE REPORT: The patient was brought to the operating theater. There administered a sedation by the traveling auditor team. All bony prominences were padded. Hand table was used for the left side. Tourniquet applied and appropriately padded as well as all bony prominences appropriately padded and sequential compression devices (SCDs) used. Two grams of IV Ancef was administered. The limb was prepped and draped in the usual sterile fashion allowing over 3 minutes prep solution drying time. A preoperative time out was performed to confirm the site of the patient's surgery. The limb was elevated. Esmarch used to exsanguinate the limb and tourniquet inflated to 250 mmHg. I began by making a small 1 inch incision longitudinally, centered over the midline of the left wrist just proximal to the wrist crease overlying the obvious site of the lesion. This incision was carried down through skin and subcutaneous tissue achieving meticulous hemostasis. Immediately upon entering the subcutaneous tissue, there is clear fluid that escaped. This is approximately 3 mL. I worked around this and there was some ganglion tissue to be found at the distal end of the incision. I followed this deep down into the wrist, identifying the median nerve as well as palmaris longus and the other flexor tendons. There was no obvious stalk. This appeared to be mostly superficial. I excised the ganglion tissue that I could, ensuring safety of the neurovascular bundles and median nerve. I sent this off for pathology. Tourniquet was let down. Meticulous hemostasis was achieved. The wound was thoroughly irrigated using normal saline. Subcutaneous tissues closed interrupted #2-0 Vicryl suture and the skin with #3-0 Monocryl. Seven mL of 1% lidocaine was instilled in and around the incision site. Steri-Strips were applied, Adaptic and 4x8 gauze was then applied and overwrapped with a sterile 4-inch Hao bandage. Tourniquet was taken down prior to the end of the case. The patient was woken up from her local and sedation and transferred off the operating table and taken to the postanesthetic care unit in stable condition. All sponge, needle, and instrument were correct. No complications. Estimated blood loss 5 mL. PLAN: The patient to be discharged home according to day surgery criteria. Follow up in the office 2 weeks' time. Change the bandage in 2 days or when they see myself in 2 weeks. Activity as tolerated, the definitely no soaks and no heavy lifting or gripping for 4 weeks until the incision is completely healed and the pain and swelling have settled down. MTDD
[2019-07-30 13:00] VITALS: BP 128/67
== END 2019-07-30 13:50 | disposition home or self-care (01) ==
LOC: M SDC 09:12
PROVIDERS: ATTEND Orthopaedic Surgery Sports Medicine
DX: M67.432 Ganglion, left wrist (principal); I10 Essential (primary) hypertension; J45.909 Unspecified asthma, uncomplicated; E78.00 Pure hypercholesterolemia, unspecified; E11.9 Type 2 diabetes mellitus without complications; G47.30 Sleep apnea, unspecified; E03.9 Hypothyroidism, unspecified; K21.9 Gastro-esophageal reflux disease without esophagitis; I42.9 Cardiomyopathy, unspecified; I44.7 Left bundle-branch block, unspecified; Z88.2 Allergy status to sulfonamides; Z88.0 Allergy status to penicillin; Z88.1 Allergy status to other antibiotic agents; Z88.8 Allergy status to other drugs, medicaments and biological substances; Z91.018 Allergy to other foods; Z95.5 Presence of coronary angioplasty implant and graft; I25.10 Atherosclerotic heart disease of native coronary artery without angina pectoris; I25.2 Old myocardial infarction; F41.9 Anxiety disorder, unspecified; G43.909 Migraine, unspecified, not intractable, without status migrainosus; F17.220 Nicotine dependence, chewing tobacco, uncomplicated; Z79.899 Other long term (current) drug therapy; Z79.82 Long term (current) use of aspirin; Z79.02 Long term (current) use of antithrombotics/antiplatelets; Z79.4 Long term (current) use of insulin
CPT/HCPCS: 25111; 88304; J0131; J0690; J1885; J2250; J2405; J3010

== ENCOUNTER 2019-09-04 06:53 | Emergency (ER) | payer OTHER ==
[~2019-09-04] VITALS: Ht 180.3 cm; Wt 114.8 kg
[~2019-09-04 06:53] MED LIST changes: +CETI5SOL3 PO; -LIDOCAINE 2% INJ 100 MG/5 ML SDV (FOR ANES.) As Ordered ONE; -LR 1,000 ML IV ONE; -MIDAZOLAM INJ 2 MG/2 ML VIAL (J2250) As Ordered ONE; -ONDANSETRON 4MG/2ML VIAL (J2405) As Ordered ONE; +VITAD1000T PO; -ceFAZolin SOD 2 GM in IV 1 EA IV ONE; -fentaNYL 100 MCG/2 ML INJECTION (J3010) As Ordered ONE; -propofoL 200 MG/20 ML VIAL As Ordered ONE
[2019-09-04] MEDS ORDERED: diphenhydrAMINE INJ 50MG/ML VIAL (J1200) IV STA (07:11)
[2019-09-04] MEDS ORDERED: diphenhydrAMINE INJ 50MG/ML VIAL (J1200) As Ordered ONE (07:13)
[2019-09-04] MEDS ORDERED: METOCLOPRAMIDE INJ 10MG/2ML VIAL (J2765) As Ordered ONE (07:13)
[2019-09-04] MEDS ORDERED: METOCLOPRAMIDE INJ 10MG/2ML VIAL (J2765) IV ONE (07:15)
[2019-09-04] MEDS ORDERED: NS 1,000 ML IV ONE (07:15)
[2019-09-04 07:20] LABS: BASO % 0.2 % (0.0-1.0); EOS # 0.1 10^3/uL (0.0-0.5); EOS % 0.7 % (0.0-3.0); HEMATOCRIT 53.6 % (42.0-52.0); HEMOGLOBIN 18.8 g/dl (13.5-17.5); LYMPH # 1.2 10^3/uL (1.5-5.0); LYMPH % 8.1 % (24.0-44.0); MEAN CORPUSCULAR HEMOGLOBIN 30.5 pg (27.0-33.0); MEAN CORPUSCULAR HGB CONC 35.1 g/dl (32.0-36.5); MONO # 0.6 10^3/uL (0.0-0.8); MONO % 4.2 % (0.0-5.0); NEUTROPHILS # 13.1 10^3/uL (1.5-8.5); NEUTROPHILS % 86.2 % (36.0-66.0); PLATELET COUNT, AUTOMATED 265 10^3/uL (150-450); RED BLOOD COUNT 6.16 10^6/uL (4.30-6.10); WHITE BLOOD COUNT 15.2 10^3/uL (4.0-10.0)
[2019-09-04] MEDS ORDERED: PANTOPRAZOLE 40MG INJ (PROTONIX) (C9113) IV ONE (07:30)
[2019-09-04 07:31] LABS: INR 1.12; PARTIAL THROMBOPLASTIN TIME 27.5 SECONDS (25.0-38.4); PROTHROMBIN TIME 14.1 SECONDS (11.8-14.0)
[2019-09-04 07:54] LABS: ALBUMIN 3.7 GM/DL (3.2-5.2); ALT/SGPT 26 U/L (12-78); BILIRUBIN,DIRECT 0.2 MG/DL (0.0-0.2); BILIRUBIN,TOTAL 1.3 MG/DL (0.2-1.0); BLOOD UREA NITROGEN 27 MG/DL (7-18); CALCIUM LEVEL 8.6 MG/DL (8.5-10.1); CARBON DIOXIDE LEVEL 21 MEQ/L (21-32); CHLORIDE LEVEL 107 MEQ/L (98-107); CK-MB VALUE MASS 1.5 NG/ML (<3.6); CPK CREATINE PHOSPHOKINASE 159 U/L (39-308); CREATININE FOR GFR 1.28 MG/DL (0.70-1.30); GLOMERULAR FILTRATION RATE > 60.0 (>56); GLUCOSE, FASTING 297 MG/DL (70-100); LIPASE 45 U/L (73-393); MB/CK RELATIVE INDEX 0.94 (< OR =4); NT-PRO BNP 47 PG/ML (<125); POTASSIUM SERUM 4.7 MEQ/L (3.5-5.1); SODIUM LEVEL 137 MEQ/L (136-145); TOTAL PROTEIN 6.8 GM/DL (6.4-8.2); TROPONIN I < 0.02 NG/ML (< 0.10)
--- NOTE | 2019-09-04 09:58 | REP ---
CHEST: Single view. There is no evidence of acute infiltrate. No pleural effusion is seen. The heart is normal in size. The mediastinal silhouette is unremarkable. The visualized osseous structures are intact. IMPRESSION: No acute pulmonary disease. Electronically Signed by Massimo Casillas MD 09/04/2019 06:35 P
[2019-09-04 11:41] LABS: CK-MB VALUE MASS 1.2 NG/ML (<3.6); CPK CREATINE PHOSPHOKINASE 56 U/L (39-308); MB/CK RELATIVE INDEX 2.14 (< OR =4); TROPONIN I < 0.02 NG/ML (< 0.10)
[2019-09-04] MEDS ORDERED: ONDA4TAB6 PO (12:25)
[2019-09-04 12:39] VITALS: BP 138/69
--- NOTE | 2019-09-04 17:51 | ECGEPIP ---
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
--- NOTE | 2019-09-04 17:53 | ECGEPIP ---
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
== END 2019-09-04 12:43 | disposition home or self-care (01) ==
LOC: M ED 06:53
DX: R11.10 Vomiting, unspecified (principal); R19.7 Diarrhea, unspecified; E78.5 Hyperlipidemia, unspecified; I44.7 Left bundle-branch block, unspecified; Z79.4 Long term (current) use of insulin; Z79.82 Long term (current) use of aspirin; Z79.899 Other long term (current) drug therapy; Z88.1 Allergy status to other antibiotic agents; Z88.2 Allergy status to sulfonamides; Z88.8 Allergy status to other drugs, medicaments and biological substances; Z91.018 Allergy to other foods; Z95.818 Presence of other cardiac implants and grafts
CPT/HCPCS: 71045; 80048; 80076; 82550; 82553; 83690; 83880; 84443; 85025; 85610; 85730; 93005; 93041; 94760; 96374; 96375; 99285; C9113; J1200; J2765

== ENCOUNTER → 2019-10-20 | Outpatient (CLI) | payer OTHER, MEDICAID ==
[~2019-10-20] MED LIST changes: +BACL10TA2 PO; +LEVO125T4; +LIDO5DIS41 TOP; +ONDA4TAB6 PO; +VITA-122
--- NOTE | 2019-10-21 15:44 | SLEEPHOME ---
DATE OF PROCEDURE: 10/20/2019 ORDERED BY: Antonella Stone NP Diagnostic home sleep testing was performed due to concern for the obstructive sleep apnea syndrome. For testing a nocturnal T3 respiratory monitoring device was used. Continuous record was made of pulse, oxygen saturation, airflow, chest and abdominal strain and body position. 9 hours and 59 minutes data were reviewed. There were 7 hours and 3 minutes marked as time in bed. During the interval marked time in bed, there were 193 respiratory events identified of 10 seconds in duration or greater for a respiratory event index of 27.3. The events were obstructive. Baseline pulse rate 72. Pulse rate ranged 60-102. Baseline saturation was 92%. Saturations fell to 75%. Testing was performed in both the supine and non positions. IMPRESSION: Abnormal home sleep testing with repetitive respiratory events and oxygen desaturations to 75% with a respiratory event index of 27.3 is consistent with obstructive sleep apnea syndrome. RECOMMENDATIONS: The patient should be encouraged to undergo formal evaluation.
== END ==
LOC: M SLEEP HO 11:31
PROVIDERS: ATTEND Nurse Practitioner Adult Health
DX: G47.30 Sleep apnea, unspecified (principal)

== ENCOUNTER 2019-11-18 11:56 | Emergency (ER) | payer MEDICAID, OTHER ==
[~2019-11-18] VITALS: Ht 177.8 cm; Wt 124.2 kg
[~2019-11-18 11:56] MED LIST changes: -BACL10TA2 PO; -LEVO125T4; -LIDO5DIS41 TOP; -VITA-122
[2019-11-18] MEDS ORDERED: VITA-122 (12:07)
[2019-11-18] MEDS ORDERED: LEVO125T4 (12:07)
[2019-11-18 13:48] LABS: ALBUMIN 3.8 GM/DL (3.2-5.2); ALT/SGPT 32 U/L (12-78); BILIRUBIN,DIRECT 0.2 MG/DL (0.0-0.2); BILIRUBIN,TOTAL 0.6 MG/DL (0.2-1.0); LIPASE 213 U/L (73-393); TOTAL PROTEIN 6.6 GM/DL (6.4-8.2)
[2019-11-18 13:50] LABS: BASO % 0.7 % (0.0-1.0); EOS # 0.2 10^3/uL (0.0-0.5); EOS % 2.9 % (0.0-3.0); HEMATOCRIT 41.6 % (42.0-52.0); LYMPH # 2.2 10^3/uL (1.5-5.0); LYMPH % 37.8 % (24.0-44.0); MEAN CORPUSCULAR HEMOGLOBIN 30.9 pg (27.0-33.0); MEAN CORPUSCULAR HGB CONC 36.1 g/dl (32.0-36.5); MEAN CORPUSCULAR VOLUME 85.8 fl (80.0-96.0); MONO # 0.5 10^3/uL (0.0-0.8); MONO % 8.1 % (0.0-5.0); NEUTROPHILS # 2.9 10^3/uL (1.5-8.5); NEUTROPHILS % 49.5 % (36.0-66.0); PLATELET COUNT, AUTOMATED 179 10^3/uL (150-450); RED BLOOD COUNT 4.85 10^6/uL (4.30-6.10); WHITE BLOOD COUNT 5.8 10^3/uL (4.0-10.0)
[2019-11-18] MEDS ORDERED: LIDOCAINE 5% (LIDODERM) PATCH TD ONE (14:00)
[2019-11-18 14:26] LABS: BLOOD UREA NITROGEN 18 MG/DL (7-18); CALCIUM LEVEL 8.4 MG/DL (8.5-10.1); CARBON DIOXIDE LEVEL 25 MEQ/L (21-32); CHLORIDE LEVEL 110 MEQ/L (98-107); CREATININE FOR GFR 0.82 MG/DL (0.70-1.30); GLOMERULAR FILTRATION RATE > 60.0 (>56); GLUCOSE, FASTING 120 MG/DL (70-100); POTASSIUM SERUM 3.9 MEQ/L (3.5-5.1); SODIUM LEVEL 143 MEQ/L (136-145)
--- NOTE | 2019-11-18 16:08 | REP ---
LEFT INGUINAL ULTRASOUND: Left inguinal ultrasound performed at rest and with Valsalva maneuver to evaluate for a left inguinal hernia. There is no evidence of left inguinal hernia. No mass or fluid collection is seen. IMPRESSION: No sonographic evidence of left inguinal hernia. Electronically Signed by Massimo Casillas MD 11/18/2019 04:16 P
[2019-11-18 16:18] VITALS: BP 150/90
[2019-11-18] MEDS ORDERED: BACL10TA2 PO (16:20)
[2019-11-18] MEDS ORDERED: LIDO5DIS41 TOP (16:21)
[2019-11-18] MEDS ORDERED: ACETAMINOPHEN TAB 650MG DOSE (2X325MG) PO ONE (16:30)
[2019-11-18] MEDS ORDERED: **NOTE PATIENT COMMENT** MISC XX SCH (21:00)
== END 2019-11-18 16:49 | disposition home or self-care (01) ==
LOC: M ED 11:56

== ENCOUNTER → 2019-11-24 | Outpatient (REF) | payer MEDICAID ==
[~2019-11-24] MED LIST changes: +BACL10TA2 PO; +LEVO125T4; +LIDO5DIS41 TOP; +VITA-122
== END ==
LOC: M SFHCCLAY 15:57
PROVIDERS: ATTEND Nurse Practitioner Family
DX: R19.7 Diarrhea, unspecified (principal)

== ENCOUNTER → 2019-12-03 | Outpatient (CLI) | payer MEDICAID ==
[2019-12-03 13:40] LABS: ALBUMIN 3.6 GM/DL (3.2-5.2); ALT/SGPT 45 U/L (12-78); BILIRUBIN,TOTAL 0.7 MG/DL (0.2-1.0); BLOOD UREA NITROGEN 20 MG/DL (7-18); CALCIUM LEVEL 8.7 MG/DL (8.5-10.1); CARBON DIOXIDE LEVEL 30 MEQ/L (21-32); CHLORIDE LEVEL 109 MEQ/L (98-107); CHOLESTEROL LEVEL 131 MG/DL (<200); CHOLESTEROL RISK RATIO 4.225 (<5); CREATININE FOR GFR 0.85 MG/DL (0.70-1.30); FREE T4 0.99 NG/DL (0.76-1.46); GLOMERULAR FILTRATION RATE > 60.0 (>56); GLUCOSE, FASTING 135 MG/DL (70-100); HDL CHOLESTEROL 31 MG/DL (>40); LDL CHOLESTEROL 77 MG/DL (<100); NON-HDL-C 100 MG/DL; POTASSIUM SERUM 4.2 MEQ/L (3.5-5.1); SODIUM LEVEL 145 MEQ/L (136-145); TOTAL PROTEIN 6.4 GM/DL (6.4-8.2); TRIGLYCERIDES LEVEL 116 MG/DL (<150)
[2019-12-03 13:44] LABS: THYROID PEROXIDASE ANTIBODY 152.4 U/ML (<60.0); TOTAL 25(OH) VITAMIN D 25.9 NG/ML (30.0-100.0)
[2019-12-03 13:50] LABS: MALB URINE SIEMENS 7.8 MG/L; MAU/CREAT RATIO 5.3 MCG/MG (0.0-30.0)
== END ==
LOC: M LAB 11:35
PROVIDERS: ATTEND Physician Assistant
DX: E78.5 Hyperlipidemia, unspecified (principal)

== ENCOUNTER → 2019-12-12 | Outpatient (CLI) | payer MEDICAID, OTHER ==
--- NOTE | 2019-12-17 08:51 | SLEEPCENT ---
DATE OF STUDY: 12/12/2019 ORDERED BY: Antonella Stone Nocturnal polysomnography was performed for the titration of pressure therapy in this patient with obstructive sleep apnea syndrome. For testing, a ResMed Air Fit N20 nasal mask of medium size was used and 4 cm of water pressure were applied to the circuit and the lights were extinguished. 7 hours and 22 minutes of data were reviewed. There were 394 minutes of sleep identified. Sleep latency was normal 11.5 minutes. REM sleep was delayed at 133 minutes. Sleep architecture was fair with 2 REM cycles. Overall sleep efficiency was 90.2%. The electrocardiogram showed a sinus rhythm, possibly paced. Average heart rate 62 beats per minute. Electroencephalogram (EEG) showed normal waveforms for awake and sleep. Respiratory events were best palliated with C-PAP at a pressure of +6. Some limb activity was noted in the midportion of the study. Limb movement arousal index was 6.2. IMPRESSION: Obstructive sleep apnea syndrome (G47.33). RECOMMENDATION: Nightly use of pressure therapy at 6 cm of water.
== END ==
LOC: M SLEEP 20:00
PROVIDERS: ATTEND Nurse Practitioner Adult Health
DX: G47.33 Obstructive sleep apnea (adult) (pediatric) (principal)

== ENCOUNTER → 2020-05-24 | Outpatient (REF) | payer MEDICAID, OTHER ==
[~2020-05-24] MED LIST changes: +COEN100C4 PO; +D31000TA2 PO; -UBID100C6 PO; -VITAD1000T PO
[2020-05-24 12:44] LABS: BASO # 0.1 10^3/uL (0.0-0.2); BASO % 0.9 % (0.0-1.0); EOS # 0.2 10^3/uL (0.0-0.5); EOS % 3.6 % (0.0-3.0); HEMOGLOBIN 14.2 g/dl (13.5-17.5); LYMPH # 1.8 10^3/uL (1.5-5.0); LYMPH % 34.5 % (24.0-44.0); MEAN CORPUSCULAR HEMOGLOBIN 30.2 pg (27.0-33.0); MEAN CORPUSCULAR HGB CONC 33.8 g/dl (32.0-36.5); MEAN CORPUSCULAR VOLUME 89.4 fl (80.0-96.0); MONO # 0.5 10^3/uL (0.0-0.8); MONO % 8.8 % (0.0-5.0); NEUTROPHILS # 2.8 10^3/uL (1.5-8.5); NEUTROPHILS % 51.8 % (36.0-66.0); PLATELET COUNT, AUTOMATED 184 10^3/uL (150-450); WHITE BLOOD COUNT 5.3 10^3/uL (4.0-10.0)
[2020-05-24 13:05] LABS: HEMOGLOBIN A1c 6.7 %
[2020-05-24 13:29] LABS: ALBUMIN 3.8 GM/DL (3.2-5.2); ALT/SGPT 27 U/L (12-78); BILIRUBIN,TOTAL 0.7 MG/DL (0.2-1.0); BLOOD UREA NITROGEN 14 MG/DL (7-18); CALCIUM LEVEL 8.6 MG/DL (8.5-10.1); CARBON DIOXIDE LEVEL 28 MEQ/L (21-32); CHLORIDE LEVEL 110 MEQ/L (98-107); CHOLESTEROL LEVEL 119 MG/DL (<200); FREE T4 1.02 NG/DL (0.76-1.46); GLOMERULAR FILTRATION RATE > 60.0 (>56); GLUCOSE, FASTING 109 MG/DL (70-100); HDL CHOLESTEROL 35 MG/DL (>40); LDL CHOLESTEROL 67 MG/DL (<100); NON-HDL-C 84 MG/DL; POTASSIUM SERUM 4.1 MEQ/L (3.5-5.1); SODIUM LEVEL 143 MEQ/L (136-145); TOTAL PROTEIN 6.6 GM/DL (6.4-8.2); TRIGLYCERIDES LEVEL 84 MG/DL (<150)
== END ==
LOC: M SFHCCLAY 08:03
PROVIDERS: ATTEND Nurse Practitioner Family
DX: I25.110 Atherosclerotic heart disease of native coronary artery with unstable angina pectoris (principal); E11.9 Type 2 diabetes mellitus without complications; E03.9 Hypothyroidism, unspecified; E11.65 Type 2 diabetes mellitus with hyperglycemia; I10 Essential (primary) hypertension

== ENCOUNTER 2020-06-04 14:46 | Observation (INO) | payer OTHER ==
[~2020-06-04] VITALS: Ht 177.8 cm; Wt 113.6 kg
[~2020-06-04 14:46] MED LIST changes: -LEVO125T4; +LEVO125T4 PO
[2020-06-04 15:18] LABS: BASO % 0.2 % (0.0-1.0); EOS # 0.2 10^3/uL (0.0-0.5); EOS % 1.8 % (0.0-3.0); HEMATOCRIT 51.1 % (42.0-52.0); HEMOGLOBIN 17.8 g/dl (13.5-17.5); LYMPH % 15.6 % (24.0-44.0); MEAN CORPUSCULAR HGB CONC 34.8 g/dl (32.0-36.5); MEAN CORPUSCULAR VOLUME 86.2 fl (80.0-96.0); MONO # 0.8 10^3/uL (0.0-0.8); MONO % 6.4 % (0.0-5.0); NEUTROPHILS # 9.5 10^3/uL (1.5-8.5); NEUTROPHILS % 75.6 % (36.0-66.0); PLATELET COUNT, AUTOMATED 254 10^3/uL (150-450); RED BLOOD COUNT 5.93 10^6/uL (4.30-6.10); WHITE BLOOD COUNT 12.6 10^3/uL (4.0-10.0)
[2020-06-04] MEDS ORDERED: MORPHINE 2 MG/ML 1ML VIAL (J2270) IV PRN ×2 (15:45→21:15)
[2020-06-04] MEDS ORDERED: NS 1,000 ML IV ONE (15:45)
[2020-06-04] MEDS ORDERED: ONDANSETRON 4MG/2ML VIAL IV ONE (15:45)
[2020-06-04 15:55] LABS: ALBUMIN 3.7 GM/DL (3.2-5.2); ALT/SGPT 25 U/L (12-78); BILIRUBIN,DIRECT 0.2 MG/DL (0.0-0.2); BILIRUBIN,TOTAL 1.1 MG/DL (0.2-1.0); BLOOD UREA NITROGEN 31 MG/DL (7-18); CALCIUM LEVEL 8.6 MG/DL (8.5-10.1); CARBON DIOXIDE LEVEL 23 MEQ/L (21-32); CHLORIDE LEVEL 105 MEQ/L (98-107); CK-MB VALUE MASS 2.3 NG/ML (<3.6); CPK CREATINE PHOSPHOKINASE 101 U/L (39-308); CREATININE FOR GFR 1.32 MG/DL (0.70-1.30); FREE T4 0.87 NG/DL (0.76-1.46); GLOMERULAR FILTRATION RATE 59.3 (>56); GLUCOSE, FASTING 224 MG/DL (70-100); LIPASE 74 U/L (73-393); MB/CK RELATIVE INDEX 2.28 (< OR =4); SODIUM LEVEL 137 MEQ/L (136-145); TOTAL PROTEIN 7.1 GM/DL (6.4-8.2); TROPONIN I < 0.02 NG/ML (< 0.10)
--- NOTE | 2020-06-04 16:02 | REP ---
INDICATION: CHEST PAIN COMPARISON: 09/04/2019 TECHNIQUE: Portable AP view of the chest FINDINGS: The mediastinum and cardiac silhouette are stable and within normal limits for portable technique. The lung guillaume are clear without acute consolidation, effusion, or pneumothorax. Skeletal structures are intact. IMPRESSION: No acute cardiopulmonary process appreciated. <Electronically signed by Jayant Dodd > 06/04/20 [id number]
[2020-06-04 16:47] LABS: CLOSTRIDIUM DIFFICILE PCR NEGATIVE (NEGATIVE)
[2020-06-04] MEDS ORDERED: ISOVUE-370 76% 100ML VIAL As Ordered ONE (17:53)
--- NOTE | 2020-06-04 18:20 | REPVR ---
PROCEDURE INFORMATION: Exam: CT Abdomen And Pelvis With Contrast Exam date and time: 06/04/2020 5:55 PM Age: 59 years old Clinical indication: Abdominal pain; Generalized; Additional info: Abdominal pain/chest pain TECHNIQUE: Imaging protocol: Computed tomography of the abdomen and pelvis with intravenous contrast. Radiation optimization: All CT scans at this facility use at least one of these dose optimization techniques: automated exposure control; mA and/or kV adjustment per patient size (includes targeted exams where dose is matched to clinical indication); or iterative reconstruction. Contrast material: ISOVUE 370; Contrast volume: 100 ml; Contrast route: INTRAVENOUS (IV); COMPARISON: CT ABD/PEL W/IV CONTRAST ONLY 04/15/2019 8:48 AM FINDINGS: Lungs: Mild atelectasis at the right lung base. Liver: Liver appears normal with no focal abnormality. Gallbladder and bile ducts: Gallbladder is present and shows no evidence of gallstone. Pancreas: Pancreas appears normal. No focal mass or peripancreatic inflammation. Spleen: Spleen appears homogeneous without focal mass. Adrenal glands: Adrenal glands are normal in appearance. Kidneys and ureters: Kidneys appear normal, with no stone, solid mass or hydronephrosis. Stomach and bowel: No evidence of small bowel obstruction. Terminal ileum has normal appearance. No evidence of acute diverticulitis. Multiple fluid-filled loops of nondilated bowel with enhancing mucosa are present. Appendix: Appendix is not seen. No RLQ inflammation to suggest appendicitis. Intraperitoneal space: No pneumoperitoneum. Vasculature: No aortic aneurysm. Main portal and splenic veins enhance normally. Lymph nodes: No enlarged lymph nodes. Urinary bladder: Urinary bladder appears normal. Reproductive: No overt enlargement of the prostate gland. Bones/joints: Bony structures are normal except for lumbar spine degenerative disc changes. Soft tissues: Unremarkable. IMPRESSION: Questionable mild changes in the small bowel and proximal colon which may suggest mild infectious or inflammatory enteritis. These are equivocal. Electronically signed by: Von Matthew On 06/04/2020 18:20:13 PM
--- NOTE | 2020-06-04 18:22 | REPVR ---
PROCEDURE INFORMATION: Exam: CT Angiography Chest With Contrast Exam date and time: 06/04/2020 5:55 PM Age: 59 years old Clinical indication: Chest pain; Type not specified; Additional info: Abdominal pain/chest pain TECHNIQUE: Imaging protocol: Computed tomographic angiography of the chest with intravenous contrast. 3D rendering (Not supervised by radiologist): MIP and/or 3D reconstructed images were created by the technologist. Radiation optimization: All CT scans at this facility use at least one of these dose optimization techniques: automated exposure control; mA and/or kV adjustment per patient size (includes targeted exams where dose is matched to clinical indication); or iterative reconstruction. Contrast material: ISOVUE 370; Contrast volume: 100 ml; Contrast route: INTRAVENOUS (IV); COMPARISON: CT ANGIO CHEST 04/15/2019 8:48 AM FINDINGS: Pulmonary arteries: No focal pulmonary artery filling defect to suggest acute pulmonary embolus. Aorta: No thoracic aortic aneurysm or dissection. Great vessels off aortic arch: Atherosclerotic calcifications in the coronary vessels. Lungs: Pulmonary vascular/interstitial pattern does not suggest active pulmonary edema. Minimal atelectasis at the right lung base. Noncalcified subpleural 6 mm nodule in the left lower lobe, axial image 109, unchanged since chest CT August 24 2017. This is a benign lesion. No central endobronchial lesion, new or concerning mass or airspace infiltrate. Pleural space: No pleural effusion or pneumothorax. Heart: No overt cardiac enlargement or abnormal volume of pericardial fluid. Lymph nodes: No enlarged mediastinal lymph nodes. Bones/joints: Bony structures are unremarkable except for thoracic degenerative disc disease. Soft tissues: No asymmetric abnormality of the extrathoracic soft tissues. IMPRESSION: 1. No evidence of acute pulmonary embolus. 2. No other acute or concerning focal intrathoracic abnormality. 3. Benign 6 mm subpleural left lower lobe lung nodule, unchanged since August 2017. No specific follow-up is warranted given the stability in size over greater than 2 years. Electronically signed by: Von Matthew On 06/04/2020 18:22:57 PM
[2020-06-04] MEDS ORDERED: CIPROFLOXACIN 400 MG in IV 1 EA IV ONE (20:00)
[2020-06-04] MEDS ORDERED: METOCLOPRAMIDE INJ 10MG/2ML VIAL (J2765 PER 1) IV ONE (20:00)
[2020-06-04] MEDS ORDERED: HYDROMORPHONE HCL 0.5 MG/ 0.5 ML SYRINGE (J1170 PER 1) IV PRN (20:00)
[2020-06-04] MEDS ORDERED: metroNIDAZOLE 500 MG in IV 1 EA IV ONE (20:00)
[2020-06-04] MEDS ORDERED: LOSA100T50 PO (20:34)
[2020-06-04] MEDS ORDERED: CETI10TA4 PO (20:34)
[2020-06-04] MEDS ORDERED: ADME100I2 SC (20:37)
[2020-06-04] MEDS ORDERED: BASA100I SC (20:37)
--- NOTE | 2020-06-04 20:42 | ECGEPIP ---
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
[2020-06-04] MEDS ORDERED: NITROGLYCERIN 0.4 MG SUBL TABLET SL PRN (21:00)
[2020-06-04] MEDS ORDERED: GLUCOSE 4GM CHEW TABLET PO PRN (21:00)
[2020-06-04] MEDS: LEVEMIR (INSULIN DETEMIR) 1 UNITS/0.01ML SC SCH (21:00)
[2020-06-04] MEDS: HumaLOG INSULIN (NovoLOG) PER UNIT SC SCH (21:00)
[2020-06-04] MEDS ORDERED: ACETAMINOPHEN TAB 650MG DOSE (2X325MG) PO PRN (21:00)
[2020-06-04] MEDS ORDERED: MORPHINE 2 MG/ML 1ML VIAL (J2270) IV SCH (21:00)
[2020-06-04] MEDS ORDERED: ONDANSETRON 4MG/2ML VIAL IV PRN (21:00)
[2020-06-04] MEDS ORDERED: DEXTROSE 50% 50 ML SYRINGE IV PRN (21:00)
[2020-06-04] MEDS ORDERED: GLUCAGON INJ 1MG VIAL SC PRN (21:00)
[2020-06-04] MEDS ORDERED: metroNIDAZOLE 250 MG in IV 1 EA IV SCH (21:00)
--- NOTE | 2020-06-04 21:14 | HPEPDOC ---
General Date of Admission Jun 04, 2020 at 14:47 Date of Service: Jun 04, 2020 Chief Complaint The patient is a 59-year-old male admitted with a reason for visit of Vomiting And Diarrhea. Source: Patient Exam Limitations: No limitations Timing/Duration: Day(s) Severity: Moderate Associated Symptoms: Nausea, Vomiting History of Present Illness Patient is 59 years old male with past medical history of coronary artery diseases, hyperlipidemia, stent placement around 3 years ago, hypothyroidism presented to the hospital with nausea,vomiting and diarrhea. Patient stated that yesterday he developed severe abdominal pain in the right lower quadrant associated with multiple episodes of diarrhea with constant nausea and multiple episodes of vomiting. Patient denied fever, chills or blood in the stool. Patient stated that nobody from his family have the same symptoms. After multiple episodes of vomiting patient started feeling dull chest pain without radiation. In ER patient was found to have leukocytosis of 12.6, creatinine 1.3. CT abdomen and pelvis showed questionable mild changes in the small bowel and proximal colon which may suggest mild infectious or inflammatory enteritis. EKG was done and did not show any acute ischemic changes. Troponin negative Home Medications Scheduled Aspirin (Aspirin) 81 Mg Chw, 81 MG PO DAILY, (Reported) Atorvastatin Calcium (Atorvastatin Calcium) 40 Mg Tablet, 40 MG PO QHS, (Reported) Cetirizine HCl (Cetirizine HCl) 10 Mg Tablet, 10 MG PO DAILY, (Reported) Cholecalciferol (Vitamin D3) (Vitamin D3) 1,000 Unit Tablet, 2,000 UNITS PO DAILY, (Reported) Dulaglutide (Trulicity) 1.5 Mg/0.5 Ml Pen.injctr, 1.75 MG IM QWEEK, (Reported) FRIDAY Insulin Glargine,Hum.rec.anlog (Basaglar Kwikpen U-100) 100 Unit/1 Ml Insuln.pen, 60 UNIT SC BID, (Reported) Levothyroxine Sodium (Levothyroxine Sodium) 125 Mcg Tablet, 125 MCG PO QAM, (Reported) Losartan Potassium (Losartan Potassium) 100 Mg Tablet, 100 MG PO DAILY, (Reported) Nitroglycerin (Nitrostat) 0.4 Mg Subl, 0.4 MG SL Q5MP, (Reported) Paroxetine HCl (Paroxetine HCl) 20 Mg Tab, 20 MG PO DAILY, (Reported) Ubidecarenone (Coenzyme Q10) 100 Mg Cap, 200 MG PO BID, (Reported) Scheduled PRN Insulin Lispro (Admelog Solostar) 100 Unit/1 Ml Insuln.pen, 1 DOSE SC ASDIRECTED PRN for SLIDING SCALE, (Reported) Allergies Coded Allergies: Sulfa (Sulfonamide Antibiotics) (Verified Allergy, Severe, ANAPHYLAXIS, 12/14/18) pokagon (Verified Allergy, Severe, ANAPHYLAXIS, 06/04/20) amoxicillin (Verified Allergy, Unknown, 12/14/18) cefdinir (Verified Allergy, Unknown, 12/14/18) clavulanic acid (Verified Allergy, Unknown, 12/14/18) pseudoephedrine (Verified Adverse Reaction, Severe, high bp, 08/12/19) lisinopril (Verified Adverse Reaction, Intermediate, BRADYKININ COUGH, 08/12/19) Past Medical History Medical History LUCILA/ CPAP PULMONARY (LAST SEEN 06/16)- NOT USING DM2 HYPOTHYROIDISM: MARGO GERD : DIET CONTROLLED HTN OBESITY DYSLIPIDEMIA H/O ANXIETY ALLERGIC RHINITIS PNEUMOVAX- REFUSES THORACIC ANUERYSM LBBB ECHOCARDIOGRAM 05/[address] CONNELL: MODERATELY THICKENED AORTIC VALVE, DILATED THROACIC AORTA AT 4.2 CM CAD Surgical History HERNIA REPAIR APPENDECTOMY SEPTOPLASTY CARDIAC CATH ([facility]) 09/2012 EGD/COLONOSCOPY 2010 ANGIOPLASTY- [facility]: BILL 02/2017 COLONOSCOPY- DR. REDDY. + ADENOMA: REPEAT DUE 04/2017 CARDIAC STENT: [facility] 08/2017 Family History FATHER: 82 YRS, CAD, DIAGNOSED WITH HYPERTENSION, DIABETES, UNSPECIFIED HEART DISEASE MOTHER: 82 YRS, DEMENTIA, TIAS SIBLINGS: BROTHER FROM RECTAL CANCER BROTHER GSW OTHER SIBS: WELL SISTER 71YO WITH LUNG CA 1 BROTHER(S) , 1 SISTER(S) . 1 SON(S) , 2 DAUGHTER(S) - HEALTHY. BROTHER IN OCTOBER D/T COLORECTAL CANCERBROTHER - MVASISTER- LUNG CA (2). Social History * Smoker: Denies, chew Alcohol: Denies Drugs: denies A-FIB/CHADSVASC A-FIB History Current/History of A-Fib/PAF?: No Current PO Anticoag Therapy: No Review of Systems Constitutional: Denies: Chills, Fever Eyes: Denies: Pain ENT: Denies: Head Aches Skin: Denies: Rash, Lesions Pulmonary: Denies: Dyspnea, Cough Cardiovascular: Reports: Chest Pain Gastrointestinal: Reports: Nausea, Vomiting, Abdominal Pain, Diarrhea Genitourinary: Denies: Dysuria Hematologic: Denies: Bruising Endocrine: Denies: Polydipsia Musculoskeletal: Denies: Neck Pain Neurological: Denies: Weakness Psych: Reports: Mood Normal Physical Examination General Exam: Positive: Alert, Cooperative Eye Exam: Positive: PERRLA ENT Exam: Positive: Atraumatic Neck Exam: Positive: Supple; Negative: JVD Chest Exam: Positive: Clear to auscultation Heart Exam: Positive: Rate Normal Telemetry: Positive: No significant arrhythmia Abdomen Exam: Positive: BS Hyperactive, Tenderness (right lower quadrant) Extremity Exam: Negative: Cyanosis Skin Exam: Positive: Nl turgor and temperature Neuro Exam: Positive: Strength at 5/5 X4 ext Psych Exam: Positive: Mental status NL Vital Signs Vital Signs Date Time Temp Pulse Resp B/P (MAP) Pulse Ox O2 Delivery O2 Flow Rate FiO2 06/04/20 18:16 79 06/04/20 15:50 16 06/04/20 15:18 06/04/20 14:47 97.0 98 Room Air Laboratory Data Labs 24H Laboratory Tests 2 06/04/20 15:06: Immature Granulocyte % (Auto) 0.4, Neutrophils (%) (Auto) 75.6H, Lymphocytes (%) (Auto) 15.6L, Monocytes (%) (Auto) 6.4H, Eosinophils (%) (Auto) 1.8, Basophils (%) (Auto) 0.2, Neutrophils # (Auto) 9.5H, Lymphocytes # (Auto) 2.0, Monocytes # (Auto) 0.8, Eosinophils # (Auto) 0.2, Basophils # (Auto) 0.0, Nucleated Red Blood Cells % (auto) 0.0, Anion Gap 9, Glomerular Filtration Rate 59.3, Calcium Level 8.6, Total Bilirubin 1.1H, Direct Bilirubin 0.2, Aspartate Amino Transf (AST/SGOT) 4L, Alanine Aminotransferase (ALT/SGPT) 25, Alkaline Phosphatase 138H, Total Creatine Kinase 101, Creatine Kinase MB 2.3, Creatine Kinase MB Relative Index 2.28, Troponin I < 0.02, Total Protein 7.1, Albumin 3.7, Al bumin/Globulin Ratio 1.1, Lipase 74, Thyroid Stimulating Hormone (TSH) 6.570H, Free Thyroxine 0.87 06/04/20 15:54: Clostridium difficile [id number] PRESUMPTIVE NEGATIVE, Clostridium difficile Toxin (PCR) NEGATIVE CBC/BMP Laboratory Tests 06/04/20 15:06 Microbiology Microbiology 06/04/20 Respiratory Virus Panel (PCR) ([facility]) - Final, Complete Assessment/Plan Patient is 59 years old male with past medical history of coronary artery diseases, hyperlipidemia, stent placement around 3 years ago, hypothyroidism presented to the hospital with nausea,vomiting and diarrhea. Patient stated that yesterday he developed severe abdominal pain in the right lower quadrant associated with multiple episodes of diarrhea with constant nausea and multiple episodes of vomiting. Patient denied fever, chills or blood in the stool. Patient stated that nobody from his family have the same symptoms. Patient denied eating outside. After multiple episodes of vomiting patient started feeling dull chest pain without radiation. In ER patient was found to have leukocytosis of 12.6, creatinine 1.3. CT abdomen and pelvis showed questionable mild changes in the small bowel and proximal colon which may suggest mild infectious or inflammatory enteritis. EKG was done and did not show any acute ischemic changes. Troponin negative Problems (1) Colitis Status: Acute Problem Text: Most likely infectious etiology Ciprofloxacin IV, metronidazole IV GI panel IV fluid (2) Coronary artery disease Status: Chronic Problem Text: Continue home cardioprotective medication (3) Vomiting and diarrhea Status: Acute Problem Text: Zofran IV (4) Atypical chest pain Status: Acute Problem Text: Most likely secondary to multiple episodes of vomiting EKG negative for acute ischemic changes Troponin negative Continue telemetry Plan / VTE VTE Prophylaxis Ordered?: Yes LAURY LEIGH DO Jun 04, 2020 21:14
[2020-06-04 22:15] VITALS: BP 145/85
[2020-06-04] MEDS: ATORVASTATIN 20 MG TAB PO SCH (23:25)
[2020-06-04] MEDS: HEPARIN SOD (PORCINE) 5000UNITS/ML 1ML VIAL/SYRINGE SC SCH (23:26)
[2020-06-04] MEDS: NS 1,000 ML IV SCH (23:32)
[2020-06-04] MEDS: CO-ENZYME Q10 50 MG CAP PO SCH (23:45)
[2020-06-05] MEDS: NS 1,000 ML IV SCH ×3 (05:14→21:02)
[2020-06-05 06:00] VITALS: BP 119/67
[2020-06-05] MEDS: metroNIDAZOLE 500 MG in IV 1 EA IV SCH ×3 (06:01→21:02)
[2020-06-05] MEDS: LEVOTHYROXINE 125MCG TABLET (0.125MG) PO SCH (06:03)
[2020-06-05 06:15] LABS: HEMATOCRIT 46.6 % (42.0-52.0); HEMOGLOBIN 16.4 g/dl (13.5-17.5); MEAN CORPUSCULAR HGB CONC 35.2 g/dl (32.0-36.5); MEAN CORPUSCULAR VOLUME 88.1 fl (80.0-96.0); PLATELET COUNT, AUTOMATED 193 10^3/uL (150-450); RED BLOOD COUNT 5.29 10^6/uL (4.30-6.10); WHITE BLOOD COUNT 9.4 10^3/uL (4.0-10.0)
[2020-06-05 06:53] LABS: ALBUMIN 3.3 GM/DL (3.2-5.2); ALT/SGPT 22 U/L (12-78); BILIRUBIN,TOTAL 0.8 MG/DL (0.2-1.0); BLOOD UREA NITROGEN 28 MG/DL (7-18); CALCIUM LEVEL 7.9 MG/DL (8.5-10.1); CARBON DIOXIDE LEVEL 23 MEQ/L (21-32); CHLORIDE LEVEL 107 MEQ/L (98-107); CREATININE FOR GFR 1.03 MG/DL (0.70-1.30); GLOMERULAR FILTRATION RATE > 60.0 (>56); GLUCOSE, FASTING 118 MG/DL (70-100); MAGNESIUM LEVEL 1.9 MG/DL (1.8-2.4); POTASSIUM SERUM 3.5 MEQ/L (3.5-5.1); SODIUM LEVEL 138 MEQ/L (136-145); TOTAL PROTEIN 6.3 GM/DL (6.4-8.2)
--- NOTE | 2020-06-05 07:26 | IPNPDOC ---
Text Note Date of Service The patient was seen on 06/05/20. NOTE SUBJECTIVE: Patient reports symptoms are improving since his admission. He is having 3 bouts of diarrhea overnight, nonbloody. Denies any emesis. Lower abdominal pain is also improving. Currently on clear liquid diet does report that he is hungry. Denies any chest pain, tightness or palpitations. No shortness of breath, cough or wheeze. OBJECTIVE: Vital signs: Temperature 98.3, pulse of 78, respiratory rate of 16, blood pressure 119/68, oxygen saturation 98% on room air Gen.: Patient is interviewed and examined in his hospital room. Patient is currently resting in bed comfortably in no acute distress. He was awake alert and able to answer questions regarding his medical history. HEENT: Normocephalic, atraumatic, EOMI, sclera nonicteric, no conjunctival pallor or injection, his membranes are moist, is midline, face is symmetric CVS: Regular rate and rhythm, normal S1 and S2 without any murmurs appreciated Respiratory: Clear to auscultation bilaterally, fair air movement, no conversational dyspnea appreciated. Abdomen: Mild tenderness to bilateral lower quadrants, no apparent rebound or guarding. No overlying skin changes, appendectomy scar in the lower right quadrant noted. Bowel sounds appreciated throughout. There is small umbilical fascial defect appreciated, Extremities: Peripheral pulses 2+ bilaterally both radial and posterior tibial pulses. No lower extremity edema or calf tenderness. Psychiatric: Mood and affect are appropriate given patient's current clinical condition. LABS: WBC of 9.4, H/H of 16.4/46.6, platelet count 193, sodium 138, potassium of 3.5, BUN/CR 28/1.03, C. difficile negative GI panel pending. IMAGING: CT Abdomen/Pelvis (06/04/20): Questionable mild changes in the small bowel and proximal colon which may suggest mild infectious or inflammatory enteritis. These are equivocal. CT Angio Chest (06/04/20): No evidence of acute pulmonary emboli. No other acute or concerning focal intrathoracic abdomen allergies. Benign 6 mm velazco bpleural left lower lobe lung nodule, unchanged August 2017. No specific follow-up is warranted given the stability in size over greater than 2 years. CXR (06/04/20): No acute cardiopulmonary process appreciated. ASSESSMENT: Patient is a 59-year-old male, past medical history is for coronary artery disease, hyperlipidemia, stent placement in 2018, hypothyroidism presented to the hospital on 06/04/2020 with a chief complaint of 3 day history of nausea, vomiting and diarrhea. Generalized lower abdominal pain began on 06/02 and persisted throughout 06/03. Patient reported no one else in his family has fallen ill, and he has not had any food cooked outside the home. Early on 06/04/20, patient reported experiencing some nonspecific chest pain at which time he decided to present to the emergency department further evaluation and management. In the ER, patient was found to have a mild leukocytosis 12.6, a small bump in his creatinine of 1.3. EKG and troponins were negative. C. difficile negative. CT of the patient's abdomen did demonstrate some mild changes in the small bowel and proximal colon suggestive of possible infectious enteritis. Given these findings, patient was admitted for further evaluation and management. He was started on clear liquid diet, IV fluids and treated with ciprofloxacin and metronidazole. Panel was ordered and remains pending. Overnight, patient continued to have 3 episodes of nonbloody diarrhea. His abdominal pain improved, but was still somewhat present. He has remained afebrile, his leukocytosis has resolved, as has his chest discomfort. Patient remained on telemetry overnight without any noteable findings. If patient chaparrita erates advancing diet, despite discharge later today. PLAN: #Enterocolitis -Suspect viral etiology, patient remains stable, afebrile, without leukocytosis. -Continues receiving IV Cipro and flagyl -IVF at 120 mL per hour -GI panel pending -advanced diet as tolerated, likely D/C home today #N/V -Utilizing IV Zofran -Discharge patient with by mouth Zofran #MARIO -Suspect dehydration 2/2 to vomiting and diarrhea -BUN/Cr of 31/1.32 at admission -Improved to BUN/Cr of 28/1.03 following appropriate rehydration #Atypical Chest pain -Suspect related to emesis. -Center EKG negative admission. No events on tele overnight. -Resolved CODE STATUS: Full Code DVT: Heparin SQ DISPO: D/C today if tolerating PO VS,Fishbone, I+O VS, Fishbone, I+O Laboratory Tests 06/04/20 15:06 06/05/20 05:46 Vital Signs Date Time Temp Pulse Resp B/P (MAP) Pulse Ox O2 Delivery O2 Flow Rate FiO2 06/05/20 06:00 98.3 78 16 119/67 (84) 98 Room Air I&O- Last 24 Hours up to 6 AM 06/05/20 06:00 Intake Total 2120 ml Output Total 200 ml Balance 1920 ml GME ATTESTATION GME ATTESTATION My faculty preceptor for this patient encounter was physically present during the encounter and was fully available. All aspects of the patient interview, examination, medical decision making process, and medical care plan development were reviewed and approved by the faculty preceptor. The faculty preceptor is aware and concurs with the plan as stated in the body of this note and will attest to such by his/her cosignature. VERONICA MORRIS DO Jun 05, 2020 07:26
[2020-06-05] MEDS: LEVEMIR (INSULIN DETEMIR) 1 UNITS/0.01ML SC SCH ×2 (08:15→21:04)
[2020-06-05] MEDS: CETIRIZINE (ZyrTEC) 10 MG TAB PO SCH (08:16)
[2020-06-05] MEDS: HumaLOG INSULIN (NovoLOG) PER UNIT SC SCH ×4 (08:16→21:00)
[2020-06-05] MEDS: ASPIRIN 81 MG CHEW TABLET PO SCH (08:16)
[2020-06-05] MEDS: PARoxetine 20MG TABLET PO SCH (08:16)
[2020-06-05] MEDS: VITAMIN D 1,000 INTERNATIONAL UNITS TABLET PO SCH (08:17)
[2020-06-05] MEDS: CO-ENZYME Q10 50 MG CAP PO SCH ×2 (08:17→21:02)
[2020-06-05] MEDS: LOSARTAN 50MG TABLET PO SCH (08:18)
[2020-06-05] MEDS: HEPARIN SOD (PORCINE) 5000UNITS/ML 1ML VIAL/SYRINGE SC SCH ×2 (08:18→21:02)
[2020-06-05] MEDS ORDERED: POTASSIUM CHLORIDE 10 MEQ SR TABLET PO ONE (09:00)
[2020-06-05] MEDS ORDERED: LEVEMIR (INSULIN DETEMIR) 1 UNITS/0.01ML SC ONE (09:00)
[2020-06-05] MEDS: CIPROFLOXACIN 400 MG in IV 1 EA IV SCH ×2 (09:58→23:31)
[2020-06-05] MEDS ORDERED: ONDA4TAB6 PO (10:59)
[2020-06-05 14:00] VITALS: BP 124/66
[2020-06-05] MEDS: ATORVASTATIN 20 MG TAB PO SCH (21:02)
[2020-06-05 22:00] VITALS: BP 126/64
[2020-06-06] MEDS: LEVOTHYROXINE 125MCG TABLET (0.125MG) PO SCH (05:55)
[2020-06-06] MEDS: metroNIDAZOLE 500 MG in IV 1 EA IV SCH (05:55)
[2020-06-06 06:00] VITALS: BP 150/64
[2020-06-06 06:03] LABS: HEMATOCRIT 38.4 % (42.0-52.0); MEAN CORPUSCULAR HEMOGLOBIN 30.4 pg (27.0-33.0); MEAN CORPUSCULAR HGB CONC 34.6 g/dl (32.0-36.5); MEAN CORPUSCULAR VOLUME 87.9 fl (80.0-96.0); PLATELET COUNT, AUTOMATED 152 10^3/uL (150-450); RED BLOOD COUNT 4.37 10^6/uL (4.30-6.10); WHITE BLOOD COUNT 5.1 10^3/uL (4.0-10.0)
[2020-06-06 06:05] LABS: HEMOGLOBIN 13.3 g/dl (13.5-17.5)
[2020-06-06] MEDS: NS 1,000 ML IV SCH (06:14)
[2020-06-06 06:31] LABS: BLOOD UREA NITROGEN 12 MG/DL (7-18); CALCIUM LEVEL 7.8 MG/DL (8.5-10.1); CARBON DIOXIDE LEVEL 23 MEQ/L (21-32); CHLORIDE LEVEL 113 MEQ/L (98-107); CREATININE FOR GFR 0.98 MG/DL (0.70-1.30); GLOMERULAR FILTRATION RATE > 60.0 (>56); GLUCOSE, FASTING 176 MG/DL (70-100); POTASSIUM SERUM 3.3 MEQ/L (3.5-5.1); SODIUM LEVEL 142 MEQ/L (136-145)
[2020-06-06] MEDS ORDERED: CIPR500T3 PO (06:47)
[2020-06-06] MEDS ORDERED: METR-265 PO (06:47)
[2020-06-06] MEDS ORDERED: POTASSIUM CHLORIDE 10 MEQ SR TABLET PO ONE (07:00)
--- NOTE | 2020-06-06 07:00 | DS.PDOC ---
Discharge Summary General Date of Admission Jun 04, 2020 at 14:47 Date of Discharge 06/06/20 Primary Care Physician: Philipp Mcfarland MD Attending Physician: SERGIO MARTINS MD Discharge Summary PROCEDURES PERFORMED DURING STAY: None ADMITTING DIAGNOSES: Colitis CAD Vomiting and Diarrhea Atypical chest pain DISCHARGE DIAGNOSES: Enterocolitis, viral vs. bacterial MARIO Atypical chest pain COMPLICATIONS/CHIEF COMPLAINT: Vomiting And Diarrhea. HISTORY OF PRESENT ILLNESS: Patient is 59 years old male with past medical history of coronary artery diseases, hyperlipidemia, stent placement around 3 years ago, hypothyroidism presented to the hospital with nausea,vomiting and diarrhea. Patient stated that yesterday he developed severe abdominal pain in the right lower quadrant associated with multiple episodes of diarrhea with constant nausea and multiple episodes of vomiting. Patient denied fever, chills or blood in the stool. Patient stated that nobody from his family have the same symptoms. After multiple episodes of vomiting patient started feeling dull chest pain without radiation. In ER patient was found to have leukocytosis of 12.6, creatinine 1.3. CT abdomen and pelvis showed questionable mild changes in the small bowel and proximal colon which may suggest mild infectious or inflammatory enteritis. EKG was done and did not show any acute ischemic changes. Troponin negative. HOSPITAL COURSE: Patient was admitted to the floor and started on both Cipro Floxin metronidazole for infectious colitis, bacterial versus viral etiology. He received adequate IVF and electrolyte replacement. Nausea controlled with Zofran PRN. Given his chest pain, patient was placed on telemetry. No acute events during patient's hospitalization, further supporting that his chest pain was related to his nausea and vomiting rather than any ACS event. On 06/05/20, patient was successfully transitioned to a full diet. Stools have become more formed. Pt to be discharge with an additional 3 days of both PO ciprofloxacin and metronidazole. DISCHARGE MEDICATIONS: Please see below. ALLERGIES: Please see below. PHYSICAL EXAMINATION ON DISCHARGE: VITAL SIGNS: Please see below. GENERAL: Patient is interviewed and examined in his hospital room. Patient is seated comfortably in his bedside chair watching television. No acute distress. HEENT: Normocephalic, atraumatic, EOMI, sclera nonicteric conjunctival injection, mucous members moist CARDIOVASCULAR EXAMINATION: Regular rate and rhythm, no murmurs gallops or rubs RESPIRATORY EXAMINATION: Clear to auscultation bilaterally, appropriate movement, no conversational dyspnea. ABDOMINAL EXAMINATION: Soft, nontender, nondistended, no organomegaly present, no overlying skin changes EXTREMITIES: No lower edema or calf tenderness. Radial posterior tibial pulses 2+ bilaterally. SKIN: No skin changes including rashes or new lesions NEUROLOGICAL EXAMINATION: No focal neurologic deficits, motor function/cranial nerves grossly intact PSYCHIATRIC EXAMINATION: Mood and affect are appropriate LABORATORY DATA: Please see below. IMAGING: CT Abdomen/Pelvis (06/04/20): Questionable mild changes in the small bowel and proximal colon which may suggest mild infectious or inflammatory enteritis. These are equivocal. CT Angio Chest (06/04/20): No evidence of acute pulmonary emboli. No other acute or concerning focal intrathoracic abdomen allergies. Benign 6 mm subpleural left lower lobe lung nodule, unchanged August 2017. No specific follow-up is warranted given the stability in size over greater than 2 years. CXR (06/04/20): No acute cardiopulmonary process appreciated. PROGNOSIS: Good ACTIVITY: As tolerated DIET: As tolerated DISPOSITION: Home with self-care. DISCHARGE INSTRUCTIONS: Please continue oral antibiotics for 3 days. Please utilize Zofran as needed for nausea. Please follow-up with PCP in 5-7 days. Please return to ED if symptoms return. DISCHARGE CONDITION: Stable TIME SPENT ON DISCHARGE: Greater than 25 minutes. Vital Signs/I&Os Vital Signs Date Time Temp Pulse Resp B/P (MAP) Pulse Ox O2 Delivery O2 Flow Rate FiO2 06/05/20 22:00 98.5 65 18 126/64 (84) 95 Room Air I&O- Last 24 Hours up to 6 AM 06/06/20 06:00 Intake Total 3550 ml Output Total 700 ml Balance 2850 ml Laboratory Data Labs 24H Laboratory Tests 2 06/05/20 12:27: Bedside Glucose (Misc Panel) 157H 06/05/20 16:58: Bedside Glucose (Misc Panel) 164H 06/05/20 20:42: Bedside Glucose (Misc Panel) 205H 06/06/20 04:17: Bedside Glucose (Misc Panel) 98 06/06/20 04:24: Bedside Glucose (Misc Panel) 97 06/06/20 05:32: Nucleated Red Blood Cells % (auto) 0.0, Anion Gap 6L, Glomerular Filtration Rate > 60.0, Calcium Level 7.8L CBC/BMP Laboratory Tests 06/06/20 05:32 FSBS Laboratory Tests Test 06/05/20 12:27 06/05/20 16:58 06/05/20 20:42 06/06/20 04:17 Range/Units Bedside Glucose (Misc Panel) 157 164 205 98 70-105 MG/DL Test 06/06/20 04:24 Range/Units Bedside Glucose (Misc Panel) 97 70-105 MG/DL Microbiology Microbiology 06/05/20 Campylobacter (PCR), Received Pending 06/05/20 Clostridium difficile Toxin A&B PCR, Received Pending 06/05/20 Plesiomonas shigelloides (PCR), Received Pending 06/05/20 Salmonella (PCR)(MAURO), Received Pending 06/05/20 Vibrio Species (PCR), Received Pending 06/05/20 Vibrio Cholerae (PCR), Received Pending 06/05/20 Yersinia enterocolitica (PCR), Received Pending 06/05/20 Enteroaggregative E. coli (PCR), Received Pending 06/05/20 Enteropathogenic E. coli (PCR), Received Pending 06/05/20 Enterotoxigenic E. coli (PCR), Received Pending 06/05/20 E. coli Shiga-like Toxin (PCR), Received Pending 06/05/20 Escherichia coli 0157 (PCR), Received Pending 06/05/20 Enteroinvasive E. coli/Shigella PCR, Received Pending 06/05/20 Cryptosporidium (PCR), Received Pending 06/05/20 Cyclospora cayetanensis (PCR), Received Pending 06/05/20 Entamoeba histolytica (PCR), Received Pending 06/05/20 Giardia lamblia (PCR), Received Pending 06/05/20 Adenovirus Type F 40/41 (PCR), Received Pending 06/05/20 Astrovirus (PCR), Received Pending 06/05/20 Norovirus GI/GII (PCR), Received Pending 06/05/20 Rotavirus A (PCR), Received Pending 06/05/20 Sapovirus I/II/IV/V (PCR), Received Pending 06/04/20 Respiratory Virus Panel (PCR) (MAURO) - Final, Complete Discharge Medications Scheduled Aspirin (Aspirin) 81 Mg Chw, 81 MG PO DAILY, (Reported) Atorvastatin Calcium (Atorvastatin Calcium) 40 Mg Tablet, 40 MG PO QHS, (Reported) Cetirizine HCl (Cetirizine HCl) 10 Mg Tablet, 10 MG PO DAILY, (Reported) Cholecalciferol (Vitamin D3) (Vitamin D3) 1,000 Unit Tablet, 2,000 UNITS PO DAILY, (Reported) Ciprofloxacin HCl (Ciprofloxacin HCl) 500 Mg Tablet, 500 MG PO BID Dulaglutide (Trulicity) 1.5 Mg/0.5 Ml Pen.injctr, 1.75 MG IM QWEEK, (Reported) FRIDAY Insulin Glargine,Hum.rec.anlog (Basaglar Kwikpen U-100) 100 Unit/1 Ml Insuln.pen, 60 UNIT SC BID, (Reported) Levothyroxine Sodium (Levothyroxine Sodium) 125 Mcg Tablet, 125 MCG PO QAM, (Reported) Losartan Potassium (Losartan Potassium) 100 Mg Tablet, 100 MG PO DAILY, (Reported) Metronidazole (Metronidazole) 500 Mg Tablet, 500 MG PO TID Nitroglycerin (Nitrostat) 0.4 Mg Subl, 0.4 MG SL Q5MP, (Reported) Paroxetine HCl (Paroxetine HCl) 20 Mg Tab, 20 MG PO DAILY, (Reported) Ubidecarenone (Coenzyme Q10) 100 Mg Cap, 200 MG PO BID, (Reported) Scheduled PRN Insulin Lispro (Admelog Solostar) 100 Unit/1 Ml Insuln.pen, 1 DOSE SC ASDIRECTED PRN for SLIDING SCALE, (Reported) Ondansetron (Ondansetron Odt) 4 Mg Tab.rapdis, 4 MG PO Q6-8HP PRN for nausea/vomiting Allergies Coded Allergies: Sulfa (Sulfonamide Antibiotics) (Verified Allergy, Severe, ANAPHYLAXIS, 12/14/18) [place] (Verified Allergy, Severe, ANAPHYLAXIS, 06/04/20) amoxicillin (Verified Allergy, Unknown, 12/14/18) cefdinir (Verified Allergy, Unknown, 12/14/18) clavulanic acid (Verified Allergy, Unknown, 12/14/18) pseudoephedrine (Verified Adverse Reaction, Severe, high bp, 08/12/19) lisinopril (Verified Adverse Reaction, Intermediate, BRADYKININ COUGH, 08/12/19) GME ATTESTATION GME ATTESTATION My faculty preceptor for this patient encounter was physically present during the encounter and was fully available. All aspects of the patient interview, examination, medical decision making process, and medical care plan development were reviewed and approved by the faculty preceptor. The faculty preceptor is aware and concurs with the plan as stated in the body of this note and will attest to such by his/her cosignature. VERONICA MORRIS DO Jun 06, 2020 07:00
[2020-06-06] MEDS: HumaLOG INSULIN (NovoLOG) PER UNIT SC SCH (07:30)
[2020-06-06] MEDS: ASPIRIN 81 MG CHEW TABLET PO SCH (08:20)
[2020-06-06] MEDS: CO-ENZYME Q10 50 MG CAP PO SCH (08:20)
[2020-06-06] MEDS: PARoxetine 20MG TABLET PO SCH (08:20)
[2020-06-06 08:21] VITALS: BP 136/62
[2020-06-06] MEDS: CETIRIZINE (ZyrTEC) 10 MG TAB PO SCH (08:21)
[2020-06-06] MEDS: LOSARTAN 50MG TABLET PO SCH (08:21)
[2020-06-06] MEDS: VITAMIN D 1,000 INTERNATIONAL UNITS TABLET PO SCH (08:21)
[2020-06-06] MEDS: HEPARIN SOD (PORCINE) 5000UNITS/ML 1ML VIAL/SYRINGE SC SCH (08:22)
[2020-06-06] MEDS: LEVEMIR (INSULIN DETEMIR) 1 UNITS/0.01ML SC SCH (08:22)
== END 2020-06-06 11:23 | disposition home or self-care (01) ==
LOC: M ED 14:46 → M ED INP 14:47 → ENRESERV 21:24 → M MSPAV 22:15
PROVIDERS: ADMIT Internal Medicine; ATTEND Internal Medicine
DX: K52.9 Noninfective gastroenteritis and colitis, unspecified (principal); N17.9 Acute kidney failure, unspecified; R07.89 Other chest pain; E66.9 Obesity, unspecified; I25.10 Atherosclerotic heart disease of native coronary artery without angina pectoris; E78.49 Other hyperlipidemia; Z98.61 Coronary angioplasty status; E11.9 Type 2 diabetes mellitus without complications; E03.9 Hypothyroidism, unspecified; Z79.82 Long term (current) use of aspirin; Z79.4 Long term (current) use of insulin; Z79.899 Other long term (current) drug therapy; K21.9 Gastro-esophageal reflux disease without esophagitis; Z91.018 Allergy to other foods; Z88.2 Allergy status to sulfonamides; Z88.1 Allergy status to other antibiotic agents; F17.220 Nicotine dependence, chewing tobacco, uncomplicated
CPT/HCPCS: 36415; 71045; 71275; 74177; 80048; 80053; 80076; 82550; 82553; 83690; 83735; 84439; 84443; 85025; 85027; 87486; 87493; 87507; 87581; 87633; 87798; 93005; 93041; 96365; 96366; 96367; 96372; 96375; 96376; 99285; J0744; J1644; J2270; J2405; J2765; Q9967

== ENCOUNTER 2020-07-03 22:06 | Emergency (ER) | payer MEDICAID, OTHER ==
[~2020-07-03] VITALS: Ht 180.3 cm; Wt 119.8 kg
[~2020-07-03 22:06] MED LIST changes: +ADME100I2 SC; +BASA100I SC; +CETI10TA4 PO; +LOSA100T50 PO; +METR-265 PO
[2020-07-03 22:07] VITALS: BP 141/69
[2020-07-03] MEDS ORDERED: PANT40TA29 (22:17)
[2020-07-03] MEDS ORDERED: OMEP-218 (22:17)
[2020-07-03] MEDS ORDERED: VITA200016 (22:17)
[2020-07-03 22:57] LABS: BASO % 0.6 % (0.0-1.0); EOS # 0.6 10^3/uL (0.0-0.5); EOS % 9.5 % (0.0-3.0); HEMATOCRIT 46.2 % (42.0-52.0); HEMOGLOBIN 15.5 g/dl (13.5-17.5); LYMPH % 14.7 % (24.0-44.0); MEAN CORPUSCULAR HEMOGLOBIN 29.7 pg (27.0-33.0); MEAN CORPUSCULAR HGB CONC 33.5 g/dl (32.0-36.5); MEAN CORPUSCULAR VOLUME 88.5 fl (80.0-96.0); MONO # 0.7 10^3/uL (0.0-0.8); MONO % 10.3 % (0.0-5.0); NEUTROPHILS # 4.3 10^3/uL (1.5-8.5); NEUTROPHILS % 64.3 % (36.0-66.0); PLATELET COUNT, AUTOMATED 155 10^3/uL (150-450); RED BLOOD COUNT 5.22 10^6/uL (4.30-6.10); WHITE BLOOD COUNT 6.6 10^3/uL (4.0-10.0)
[2020-07-03] MEDS ORDERED: MORPHINE 4 MG/ML 1ML VIAL/SYRINGE (J2270) IV ONE (23:15)
[2020-07-03] MEDS ORDERED: NS 1,000 ML IV ONE (23:15)
[2020-07-03 23:37] LABS: ALBUMIN 4.1 GM/DL (3.2-5.2); ALT/SGPT 41 U/L (12-78); BILIRUBIN,DIRECT 0.1 MG/DL (0.0-0.2); BILIRUBIN,TOTAL 0.8 MG/DL (0.2-1.0); BLOOD UREA NITROGEN 17 MG/DL (7-18); CALCIUM LEVEL 8.9 MG/DL (8.5-10.1); CARBON DIOXIDE LEVEL 25 MEQ/L (21-32); CHLORIDE LEVEL 106 MEQ/L (98-107); CREATININE FOR GFR 1.21 MG/DL (0.70-1.30); GLOMERULAR FILTRATION RATE > 60.0 (>56); GLUCOSE, FASTING 228 MG/DL (70-100); LIPASE 124 U/L (73-393); SODIUM LEVEL 139 MEQ/L (136-145); TOTAL PROTEIN 7.3 GM/DL (6.4-8.2)
--- NOTE | 2020-07-04 00:25 | REPVR ---
PROCEDURE INFORMATION: Exam: CT Abdomen And Pelvis With Contrast Exam date and time: 07/03/2020 11:04 PM Age: 59 years old Clinical indication: Abdominal pain; Localized; Lower; Additional info: Lower abd pain, HX c diff, recent admit, no better TECHNIQUE: Imaging protocol: Computed tomography of the abdomen and pelvis with intravenous contrast. Radiation optimization: All CT scans at this facility use at least one of these dose optimization techniques: automated exposure control; mA and/or kV adjustment per patient size (includes targeted exams where dose is matched to clinical indication); or iterative reconstruction. Contrast material: ISO; Contrast volume: 100 ml; Contrast route: INTRAVENOUS (IV); COMPARISON: CT ABD/PEL W/IV CONTRAST ONLY 06/04/2020 5:56 PM FINDINGS: Lungs: No suspicious mass or airspace process in the visualized lung bases. Liver: Liver appears diffusely enlarged, without focal lesion. Gallbladder and bile ducts: Gallbladder is present and shows no evidence of gallstone. Pancreas: Pancreas appears normal. No focal mass or peripancreatic inflammation. Spleen: Spleen is diffusely enlarged, without focal lesion. Adrenal glands: Adrenal glands are normal in appearance. Kidneys and ureters: Kidneys appear normal, with no stone, solid mass or hydronephrosis. Stomach and bowel: No evidence of small bowel obstruction. Terminal ileum has normal appearance. No evidence of acute diverticulitis. No abnormal colonic wall thickening or pericolonic inflammation. Appendix: Appendix is not seen. No RLQ inflammation to suggest appendicitis. Intraperitoneal space: No pneumoperitoneum. Vasculature: No aortic aneurysm. Main portal and splenic veins enhance normally. Lymph nodes: No enlarged lymph nodes. Urinary bladder: Urinary bladder appears normal. Reproductive: Dystrophic prostate calcifications are noted. Bones/joints: Bony structures are normal except for lumbar spine degenerative disc changes. Soft tissues: Fat containing umbilical hernia is present. Fat containing umbilical hernia is present. IMPRESSION: 1. No acute surgical or inflammatory intra-abdominal or pelvic process. No evidence of active colitis. 2. Hepatosplenomegaly. Electronically signed by: Von Matthew On 07/04/2020 00:25:17 AM
[2020-07-04] MEDS ORDERED: ZINC OXIDE 30.6% CREAM 92GM TUBE (SECURA EPC) TOP STA (00:59)
[2020-07-04] MEDS ORDERED: LOPERAMIDE 2 MG CAPLET PO ONE (01:00)
[2020-07-04] MEDS ORDERED: DICYCLOMINE 10 MG CAP PO ONE (01:00)
[2020-07-04] MEDS ORDERED: LOPE-39 PO (01:06)
[2020-07-04] MEDS ORDERED: CVS13CRE TOP (01:06)
[2020-07-04] MEDS ORDERED: DICY10CA13 PO (01:06)
[2020-07-04] MEDS ORDERED: VANC125C3 PO (01:09)
[2020-07-04] MEDS ORDERED: VANCOMYCIN ORAL SOL 250MG/5ML ORAL SYRINGE PO STA (01:13)
== END 2020-07-04 02:00 | disposition home or self-care (01) ==
LOC: M ED 22:06
DX: A04.71 Enterocolitis due to Clostridium difficile, recurrent (principal); R10.30 Lower abdominal pain, unspecified; I25.10 Atherosclerotic heart disease of native coronary artery without angina pectoris; I25.2 Old myocardial infarction; E78.5 Hyperlipidemia, unspecified; E03.9 Hypothyroidism, unspecified; E11.9 Type 2 diabetes mellitus without complications; Z95.5 Presence of coronary angioplasty implant and graft; Z88.2 Allergy status to sulfonamides; Z88.0 Allergy status to penicillin; Z88.1 Allergy status to other antibiotic agents; Z88.8 Allergy status to other drugs, medicaments and biological substances; Z91.018 Allergy to other foods; Z79.899 Other long term (current) drug therapy; Z79.82 Long term (current) use of aspirin; Z79.4 Long term (current) use of insulin
CPT/HCPCS: 74177; 80048; 80076; 81001; 83690; 85025; 87505; 96361; 96374; 99283; J2270

== ENCOUNTER 2020-07-07 20:06 | Emergency (ER) | payer OTHER ==
[~2020-07-07 20:06] MED LIST changes: +CVS13CRE TOP; +DICY10CA13 PO; +LOPE-39 PO; +OMEP-218 PO; +PANT40TA29 PO; +VANC125C3 PO; +VITA200016 PO
[2020-07-07] MEDS ORDERED: NS 1,000 ML IV ONE (20:30)
[2020-07-07] MEDS ORDERED: methylPREDNISolone 125MG 2ML VIAL IV ONE (20:30)
[2020-07-07] MEDS ORDERED: ACETAMINOPHEN 325 MG TAB PO ONE (20:30)
[2020-07-07 20:55] LABS: BASO % 0.5 % (0.0-1.0); EOS # 0.1 10^3/uL (0.0-0.5); EOS % 2.3 % (0.0-3.0); HEMATOCRIT 45.2 % (42.0-52.0); HEMOGLOBIN 15.1 g/dl (13.5-17.5); LYMPH # 1.1 10^3/uL (1.5-5.0); LYMPH % 25.5 % (24.0-44.0); MEAN CORPUSCULAR HEMOGLOBIN 29.5 pg (27.0-33.0); MEAN CORPUSCULAR HGB CONC 33.4 g/dl (32.0-36.5); MEAN CORPUSCULAR VOLUME 88.3 fl (80.0-96.0); MONO # 0.3 10^3/uL (0.0-0.8); MONO % 7.6 % (0.0-5.0); NEUTROPHILS # 2.8 10^3/uL (1.5-8.5); NEUTROPHILS % 63.9 % (36.0-66.0); PLATELET COUNT, AUTOMATED 126 10^3/uL (150-450); RED BLOOD COUNT 5.12 10^6/uL (4.30-6.10); WHITE BLOOD COUNT 4.4 10^3/uL (4.0-10.0)
[2020-07-07 21:17] LABS: INR 0.98; PROTHROMBIN TIME 13.2 SECONDS (12.5-14.3)
--- NOTE | 2020-07-07 21:19 | REPVR ---
PROCEDURE INFORMATION: Exam: XR Chest, 1 View Exam date and time: 07/07/20 (8:48pm) Age: 59 years old Clinical indication: Dyspnea and cough TECHNIQUE: Imaging protocol: Portable CXR Views: 1 view COMPARISON: Portable CXR of 06/04/20 FINDINGS: Lungs: Unremarkable. No consolidation. Pleural space: Unremarkable. No pleural effusions. No pneumothorax. Heart/Mediastinum: Unremarkable. No cardiomegaly. Bones/joints: Unremarkable. IMPRESSION: No acute findings. The lung guillaume remain clear. Electronically signed by: Suellen Barlow On 07/07/2020 21:19:14 PM
[2020-07-07 21:30] LABS: ALBUMIN 3.6 GM/DL (3.2-5.2); ALT/SGPT 44 U/L (12-78); BILIRUBIN,DIRECT 0.1 MG/DL (0.0-0.2); BILIRUBIN,TOTAL 0.8 MG/DL (0.2-1.0); BLOOD UREA NITROGEN 12 MG/DL (7-18); CALCIUM LEVEL 8.2 MG/DL (8.5-10.1); CARBON DIOXIDE LEVEL 25 MEQ/L (21-32); CHLORIDE LEVEL 101 MEQ/L (98-107); CK-MB VALUE MASS 1.2 NG/ML (<3.6); CPK CREATINE PHOSPHOKINASE 166 U/L (39-308); CREATININE FOR GFR 0.91 MG/DL (0.70-1.30); GLOMERULAR FILTRATION RATE > 60.0 (>56); GLUCOSE, FASTING 146 MG/DL (70-100); MB/CK RELATIVE INDEX 0.72 (< OR =4); NT-PRO BNP 27 PG/ML (<125); POTASSIUM SERUM 4.2 MEQ/L (3.5-5.1); SODIUM LEVEL 136 MEQ/L (136-145); TOTAL PROTEIN 6.6 GM/DL (6.4-8.2); TROPONIN I < 0.02 NG/ML (< 0.10)
[2020-07-07] MEDS: ALBUTEROL 90 MCG/ACT 8GM HFA INHALER INH SCH ×3 (21:32→21:54)
[2020-07-07] MEDS ORDERED: ALBUTEROL 90 MCG/ACT 8GM HFA INHALER INH ONE (22:15)
[2020-07-07 22:51] VITALS: BP 131/74
--- NOTE | 2020-07-08 09:26 | ECGEPIP ---
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
== END 2020-07-07 23:10 | disposition home or self-care (01) ==
LOC: M ED 20:06
DX: B34.9 Viral infection, unspecified (principal); F41.9 Anxiety disorder, unspecified; I44.7 Left bundle-branch block, unspecified; I10 Essential (primary) hypertension; E11.9 Type 2 diabetes mellitus without complications; Z88.2 Allergy status to sulfonamides; Z88.8 Allergy status to other drugs, medicaments and biological substances; Z88.0 Allergy status to penicillin; Z88.1 Allergy status to other antibiotic agents; Z91.018 Allergy to other foods; Z79.899 Other long term (current) drug therapy; Z79.2 Long term (current) use of antibiotics; Z79.82 Long term (current) use of aspirin; Z79.4 Long term (current) use of insulin
CPT/HCPCS: 36600; 71045; 80048; 80076; 82550; 82553; 82803; 83880; 85025; 85610; 93005; 96361; 96374; 99285; J2930

== ENCOUNTER 2020-07-11 12:31 | Inpatient (IN) | payer OTHER ==
[~2020-07-11] VITALS: Ht 177.8 cm; Wt 123.8 kg
[2020-07-11] MEDS ORDERED: NS 1,000 ML IV ONE (13:15)
[2020-07-11] MEDS ORDERED: MORPHINE 4 MG/ML 1ML VIAL/SYRINGE (J2270) IV ONE (13:15)
[2020-07-11] MEDS ORDERED: ONDANSETRON 4MG/2ML VIAL IV ONE (13:15)
[2020-07-11] MEDS ORDERED: LOPE2CAP PO (13:23)
[2020-07-11 14:16] LABS: BASO % 0.3 % (0.0-1.0); EOS % 0.3 % (0.0-3.0); HEMATOCRIT 43.3 % (42.0-52.0); HEMOGLOBIN 14.8 g/dl (13.5-17.5); LYMPH # 0.8 10^3/uL (1.5-5.0); LYMPH % 21.5 % (24.0-44.0); MEAN CORPUSCULAR HGB CONC 34.2 g/dl (32.0-36.5); MEAN CORPUSCULAR VOLUME 87.7 fl (80.0-96.0); MONO # 0.2 10^3/uL (0.0-0.8); NEUTROPHILS # 2.6 10^3/uL (1.5-8.5); NEUTROPHILS % 71.6 % (36.0-66.0); PLATELET COUNT, AUTOMATED 139 10^3/uL (150-450); RED BLOOD COUNT 4.94 10^6/uL (4.30-6.10); WHITE BLOOD COUNT 3.7 10^3/uL (4.0-10.0)
[2020-07-11 14:31] LABS: INR 0.95; PROTHROMBIN TIME 12.9 SECONDS (12.5-14.3)
[2020-07-11 14:32] LABS: PARTIAL THROMBOPLASTIN TIME 30.4 SECONDS (24.2-38.5)
[2020-07-11 14:35] LABS: D-DIMER QUANT 391.92 ng/ml (<500)
--- NOTE | 2020-07-11 14:35 | REP ---
INDICATION: left scrotal pain - covid positive. COMPARISON: 07/07/2020 as well as other prior exams. TECHNIQUE: SINGLE PORTABLE AP VIEW OF THE CHEST WAS PERFORMED. FINDINGS: Infiltrate is visualized in the left lung base. No infiltrate is seen in the right lung. Heart and mediastinum are unchanged. IMPRESSION: Infiltrate lower left lung. <Electronically signed by Massimo Casillas > 07/11/20 [id number]
[2020-07-11 14:53] LABS: ALBUMIN 3.5 GM/DL (3.2-5.2); ALT/SGPT 38 U/L (12-78); BILIRUBIN,TOTAL 0.7 MG/DL (0.2-1.0); BLOOD UREA NITROGEN 11 MG/DL (7-18); C REACTIVE PROTEIN QUANTITATIV 4.07 MG/DL (0.00-0.30); CALCIUM LEVEL 8.5 MG/DL (8.5-10.1); CARBON DIOXIDE LEVEL 26 MEQ/L (21-32); CHLORIDE LEVEL 105 MEQ/L (98-107); CK-MB VALUE MASS < 1.0 NG/ML (<3.6); CPK CREATINE PHOSPHOKINASE 120 U/L (39-308); CREATININE FOR GFR 0.83 MG/DL (0.70-1.30); FERRITIN 519 NG/ML (26-388); GLOMERULAR FILTRATION RATE > 60.0 (>56); GLUCOSE, FASTING 168 MG/DL (70-100); LDH LACTATE DEHYDROGENASE 268 U/L (87-241); MAGNESIUM LEVEL 2.2 MG/DL (1.8-2.4); MB/CK RELATIVE INDEX 0.83 (< OR =4); SODIUM LEVEL 137 MEQ/L (136-145); TOTAL PROTEIN 6.5 GM/DL (6.4-8.2); TROPONIN I < 0.02 NG/ML (< 0.10)
--- NOTE | 2020-07-11 15:17 | REP ---
INDICATION: left scrotal pain - covid positive COMPARISON: None. TECHNIQUE: Casillas scale and color Doppler evaluation using linear and curved array transducer with color Doppler evaluation. FINDINGS: The bilateral testicles and right epididymis are normal in contour, size, echogenicity, vascularity and overall appearance. The left epididymis appears heterogeneous and mildly thickened and includes 2 mm epididymal head cyst. There also appears to be a moderate complex left hydrocele with floating debris. Color evaluation demonstrates no significant asymmetric hypervascularity. Findings may represent resolving epididymitis and should be correlated with physical examination. No right hydrocele or bilateral varicoceles are identified. Right testicle measures 5.5 x 2.4 x 3.2 cm. Left testicle measures 5.6 x 2.2 x 3.3 cm. IMPRESSION: 1. Asymmetric findings involving the left epididymis and complex left hydrocele raise the possibility of resolving epididymitis. Correlation is recommended. 2. Bilateral testicles and right epididymis are normal. <Electronically signed by Jayant Dodd > 07/11/20 [id number]
[2020-07-11] MEDS ORDERED: methylPREDNISolone 125MG 2ML VIAL IV ONE (15:45)
[2020-07-11] MEDS ORDERED: LevoFLOXacin IV 750 MG in IV 1 EA IV ONE (15:45)
[2020-07-11] MEDS: ALBUTEROL 90 MCG/ACT 8GM HFA INHALER INH SCH ×3 (16:10→16:45)
[2020-07-11] MEDS ORDERED: ACETAMINOPHEN TAB 650MG DOSE (2X325MG) PO PRN (16:15)
[2020-07-11] MEDS ORDERED: ISOVUE-370 76% 100ML VIAL As Ordered ONE (16:27)
[2020-07-11] MEDS ORDERED: VANC125C3 PO (17:30)
[2020-07-11] MEDS ORDERED: LEVO-92 PO (17:31)
--- NOTE | 2020-07-11 18:40 | HPEPDOC ---
[facility] Medical History & Physical Date of Admission Jul 11, 2020 Date of Service: Jul 11, 2020 Attending Physician: STEFF UGALDE MD History and Physical CHIEF COMPLAINT: SOB in the setting of recent covid-19 diagnosis, constipation, abdominal pain HISTORY OF PRESENT ILLNESS: 59 yo M with a history of IDDM, coronary artery diseases, hyperlipidemia, cardiac stent placement in 2017, hypothyroidism who developed respiratory symptoms and diarrhea on 06/29, was diagnosed with C.diff infection on 07/03 and started on PO vanc and loperamide QID? at the same time, and finally diagnosed with covid-19 on 07/04 who now represents to [facility] with abdominal pain at R suprapubic area/lower abdominal pain, constipation for 5 days with last very small BM yesterday, poor PO, without nausea, emesis and worsening dry to mildly productive cough and chills and diffuse aches. He denies recent krupa fevers, rigors, krupa chest pain, palpitations. In the ED, he arrived HDS, afebrile and saturating well on room air but was noted to desaturate to 989-90% and acutely became dizzy and SOB on standing to ambulate. His abdomen was hypoactive and mildly distended and tender and reported scrotal pain especially on the R side. Workup was notable for leukopenia to WBC 3.7, hgb 14.8, platelets of 139, Na 137, K 4, Cr 0.83, lactate wnl, procalcitonin <0.05, troponin wnl, LDH 268, CRP 4.07, Ddimer 391, fibr inogen 624 and CXR showed LLL infiltrate. Given the scrotal pain, he had a scrotal US that showed a moderate complex L hydrocele with floating debris c/f epididymitis. UA was bland and GC/CT was ordered and is pending. Given the LLL infiltrate (likely viral given negative procalcitonin) and ongoing epididymitis he was given IV levaquin and he was also started on PO vanc for ongoing C.diff infection and loperamide was discontinued and CT A/P ordered for c/f obstructive pathology given Q6H loperamide during an active C.diff infection, while a CTA chest was also ordered for exertional hypoxemia with a +ddimer in a covid-19 patient. He is now being admitted to medicine with pending imaging. ALLERGIES: Sulfa (Sulfonamide Antibiotics) (Verified Allergy, Severe, ANAPHYLAXIS, 12/14/18) [place] (Verified Allergy, Severe, ANAPHYLAXIS, 06/04/20) amoxicillin (Verified Allergy, Unknown, 12/14/18) cefdinir (Verified Allergy, Unknown, 12/14/18) clavulanic acid (Verified Allergy, Unknown, 12/14/18) pseudoephedrine (Verified Adverse Reaction, Severe, high bp, 08/12/19) lisinopril (Verified Adverse Reaction, Intermediate, BRADYKININ COUGH, 08/12/19) PAST MEDICAL HISTORY: LUCILA/ CPAP PULMONARY (LAST SEEN 06/16)- NOT USING DM2 HYPOTHYROIDISM: MARGO GERD: DIET CONTROLLED HTN OBESITY DYSLIPIDEMIA H/O ANXIETY ALLERGIC RHINITIS PNEUMOVAX- REFUSES THORACIC ANUERYSM LBBB ECHOCARDIOGRAM 05/[address] CONNELL: MODERATELY THICKENED AORTIC VALVE, DILATED THROACIC AORTA AT 4.2 CM CAD PAST SURGICAL HISTORY: HERNIA REPAIR APPENDECTOMY SEPTOPLASTY CARDIAC CATH ([facility] 09/2012 EGD/COLONOSCOPY 2010 ANGIOPLASTY- [facility]: BILL 02/2017 COLONOSCOPY- DR. REDDY. + ADENOMA: REPEAT DUE 04/2017 CARDIAC STENT: [facility] 08/2017 FAMILY HISTORY: FATHER: 82 YRS, CAD, DIAGNOSED WITH HYPERTENSION, DIABETES, UNSPECIFIED HEART DISEASE MOTHER: 82 YRS, DEMENTIA, TIAS SIBLINGS: BROTHER FROM RECTAL CANCER BROTHER GSW OTHER SIBS: WELL SISTER 71YO WITH LUNG CA 1 BROTHER(S) , 1 SISTER(S) . 1 SON(S) , 2 DAUGHTER(S) - HEALTHY. BROTHER IN OCTOBER D/T COLORECTAL CANCERBROTHER - MVASISTER- LUNG CA (2). SOCIAL HISTORY: No alcohol, nicotine or illicit drug use. REVIEW OF SYSTEMS:12 point ROS was completed, and all pertinent positives were noted in HPI. HOME MEDICATIONS: Please see below. PHYSICAL EXAMINATION: VITAL SIGNS: HDS, afebrile, stable on room air GENERAL APPEARANCE: Ill appearing, shivering during my examination, clammy HEENT: NCAT, EOMI, MMM CARDIOVASCULAR: RRR, no m/r/g LUNGS: Good air movement, no wheezing or crackles at this time. coughing through his speech, has cough fits mild distress when he coughs that resolves promptly ABDOMEN: Mild distention, hypoactive sounds, lower quadrants TTP, no rebound or involuntary guarding EXTREMITIES: WWP, no LE edema NEUROLOGICAL: AOx3, CN 3-12 intact, speech clear, moving all extremities PSYCHIATRIC: AOx3 LABORATORY DATA AND IMAGING: noted above MICROBIOLOGY: Please see below. ASSESSMENT: 59 yo M with a history of IDDM, coronary artery diseases, hyperlipidemia, cardiac stent placement in 2016, hypothyroidism who developed respiratory sympto ms and diarrhea on 06/29, was diagnosed with C.diff infection on 07/03 and started on PO vanc and loperamide QID? at the same time, and finally diagnosed with covid-19 on 07/04 who now represents to [facility] with abdominal pain at R suprapubic area/lower abdominal pain, constipation for 5 days, poor PO and worsening cough and chills with imaging showing LLL infiltrates c/w ongoing c.diff infection c/b loperamide induced constipation placing him at risk for GI complications, ongoing covid-19 PNA and epididymitis. Covid-19 PNA: LLL infiltrates with negative procalcitonin with mild exertional hypoxemia -trend covid labs including procal -empiric levaquin that will also cover epididymitis -sputum culture -urine strep and legionella -incentive spiromtery -tessalon perls for cough -albuterol inh PRN -q4H pulse ox -droplet precautions -CTA chest -will give lovenox at 40 QD given Ddimer in 300s unless CTA results in confirmation of thrombi C.diff infection c/b loperamide usage -CT A/P for distention, pain and hypoactive abdomen -may need to involve surgery team if imaging is concerning -stop loperamide -PO vanc Q6H for c.diff infection -will hold off diet and allow liquids until imaging results Epididymitis: -UA was bland -f/u GC/CT testing -empiric levaquin, will require 10d course, day 1 IDDM: -c/w levemir for lantus long acting insulin -SSI AC/HS -hypoglycemia protocol -FSBG AC/HS -hold trulicity CAD: -c/w ASA/lipitor -PRN SLN Depression: -c/w paxil HTN -contnue ARB DVT ppx: lovenox 40 QD Dispo: med/surg, covid floor Vital Signs Vital Signs Date Time Temp Pulse Resp B/P (MAP) Pulse Ox O2 Delivery O2 Flow Rate FiO2 07/11/20 15:19 97.4 77 18 151/69 99 Room Air Laboratory Data Labs 24H Laboratory Tests 2 07/11/20 14:01: Immature Granulocyte % (Auto) 0.3, Neutrophils (%) (Auto) 71.6H, Lymphocytes (%) (Auto) 21.5L, Monocytes (%) (Auto) 6.0H, Eosinophils (%) (Auto) 0.3, Basophils (%) (Auto) 0.3, Neutrophils # (Auto) 2.6, Lymphocytes # (Auto) 0.8L, Monocytes # (Auto) 0.2, Eosinophils # (Auto) 0.0, Basophils # (Auto) 0.0, Nucleated Red Blood Cells % (auto) 0.0, Prothrombin Time 12.9, Prothromb Time International Ratio 0.95, Activated Partial Thromboplast Time 30.4, Fibrinogen 624H, D-Dimer, Quantitative 391.92, Anion Gap 6L, Glomerular Filtration Rate > 60.0, Lactic Acid Level 1.1, Calcium Level 8.5, Magnesium Level 2.2, Ferritin 519H, Total Bilirubin 0.7, Aspartate Amino Transf (AST/SGOT) 21, Alanine Aminotransferase (ALT/SGPT) 38, Alkaline Phosphatase 109, Lactate Dehydrogenase 268H, Total Creatine Kinase 120, Creatine Kinase MB < 1.0, Creatine Kinase MB Relative Index 0.83, Troponin I < 0.02, C-Reactive Protein, Quantitative 4.07H, Total Protein 6.5, Albumin 3.5, Albumin/Globulin Ratio 1.2, Procalcitonin <0.05 07/11/20 15:36: Urine Color YELLOW, Urine Appearance HAZY, Urine pH 6.0, Urine Specific [place] 1.021, Urine Protein 2+H, Urine Glucose (UA) 1+H, Urine Ketones 1+H, Urine Blood NEGATIVE, Urine Nitrite NEGATIVE, Urine Bilirubin NEGATIVE, Urine Urobilinogen 0.2, Urine Leukocyte Esterase NEGATIVE, Urine WBC (Auto) 0, Urine RBC (Auto) 2, Urine Hyaline Casts (Auto) 0, Urine Bacteria (Auto) NEGATIVE, Urine Squamous Epithelial Cells 0, Urine Mucus (Auto) SMALL, Urine Sperm (Auto) CBC/BMP Laboratory Tests 07/11/20 14:01 Microbiology Microbiology 07/11/20 Blood Culture, Received Pending 07/11/20 Blood Culture, Received Pending Home Medications Scheduled Aspirin (Aspirin) 81 Mg Chw, 81 MG PO DAILY Atorvastatin Calcium (Atorvastatin Calcium) 40 Mg Tablet, 40 MG PO QHS Cetirizine HCl (Cetirizine HCl) 10 Mg Tablet, 10 MG PO DAILY Cholecalciferol (Vitamin D3) (Vitamin D3) 50 Mcg Capsule, 100 MCG PO DAILY Dulaglutide (Trulicity) 1.5 Mg/0.5 Ml Pen.injctr, 1.5 MG IM QWEEK FRIDAY Insulin Glargine,Hum.rec.anlog (Basaglar Kwikpen U-100) 100 Unit/1 Ml Insuln.pen, 60 UNIT SC BID Levothyroxine Sodium (Levo-T) 125 Mcg Tablet, 125 MCG PO DAILY Losartan Potassium (Losartan Potassium) 100 Mg Tablet, 100 MG PO DAILY Nitroglycerin (Nitrostat) 0.4 Mg Subl, 0.4 MG SL Q5MP Pantoprazole Sodium (Pantoprazole Sodium) 40 Mg Tablet.dr, 40 MG PO DAILY Paroxetine HCl (Paroxetine HCl) 20 Mg Tab, 20 MG PO DAILY Ubidecarenone (Coenzyme Q10) 100 Mg Cap, 200 MG PO BID Vancomycin Hcl (Vancomycin HCl) 125 Mg Capsule, 125 MG PO QID Zinc Oxide (Diaper Rash) 113 Gm Cream..g., 1 APLCT TOP BID Scheduled PRN Dicyclomine HCl (Dicyclomine HCl) 10 Mg Capsule, 1 CAP PO Q6HP PRN for irritable bowel symptoms Insulin Lispro (Admelog Solostar) 100 Unit/1 Ml Insuln.pen, 1 DOSE SC ASDIRECTED PRN for SLIDING SCALE Allergies Coded Allergies: Sulfa (Sulfonamide Antibiotics) (Verified Allergy, Severe, ANAPHYLAXIS, 12/14/18) [place] (Verified Allergy, Severe, ANAPHYLAXIS, 06/04/20) amoxicillin (Verified Allergy, Unknown, 12/14/18) cefdinir (Verified Allergy, Unknown, 12/14/18) clavulanic acid (Verified Allergy, Unknown, 12/14/18) pseudoephedrine (Verified Adverse Reaction, Severe, high bp, 08/12/19) lisinopril (Verified Adverse Reaction, Intermediate, BRADYKININ COUGH, 08/12/19) A-FIB/CHADSVASC A-FIB History Current/History of A-Fib/PAF?: No Current PO Anticoag Therapy: No Age/Risk Factor Scoring CHADSVASC: CHADSVASC Response (Comments) Value Age Risk Factor Age < 65 years old 0 Gender Risk Factor Male 0 Hx of CHF No 0 Hx of HTN Yes 1 Hx of Stroke/TIA/or VTE No 0 Hx of Diabetes Yes 1 Hx of Vascular Disease Yes 1 Total 3 Treatment Treatment ordered: NONE Reason Anticoagulant not given: Not indicated/[id number] STEFF UGALDE MD Jul 11, 2020 18:40
[2020-07-11] MEDS ORDERED: GLUCAGON INJ 1MG VIAL SC PRN (18:45)
[2020-07-11] MEDS ORDERED: DEXTROSE 50% 50 ML SYRINGE IV PRN (18:45)
[2020-07-11] MEDS ORDERED: GLUCOSE 4GM CHEW TABLET PO PRN (18:45)
[2020-07-11] MEDS ORDERED: NITROGLYCERIN 0.4 MG SUBL TABLET SL PRN (18:45)
--- NOTE | 2020-07-11 19:02 | REPVR ---
PROCEDURE INFORMATION: Exam: CT Angiography Chest With Contrast Exam date and time: 07/11/2020 6:20 PM Age: 59 years old Clinical indication: Shortness of breath; Additional info: RO pe TECHNIQUE: Imaging protocol: Computed tomographic angiography of the chest with intravenous contrast. 3D rendering (Not supervised by radiologist): MIP and/or 3D reconstructed images were created by the technologist. Radiation optimization: All CT scans at this facility use at least one of these dose optimization techniques: automated exposure control; mA and/or kV adjustment per patient size (includes targeted exams where dose is matched to clinical indication); or iterative reconstruction. Contrast material: ISOVUE 370; Contrast volume: 100 ml; Contrast route: INTRAVENOUS (IV); COMPARISON: CT ANGIO CHEST 06/04/2020 5:56 PM FINDINGS: Pulmonary arteries: Peripheral pulmonary artery evaluation limited by cardiac and respiratory motion artifact. Central pulmonary arteries show no intraluminal defect suggestive of clot. Aorta: No thoracic aortic aneurysm or dissection. Lungs: Pulmonary vascular/interstitial pattern does not suggest active pulmonary edema. Patchy multifocal airspace infiltrates bilaterally. No central endobronchial lesion or dense consolidation. Pleural space: No pleural effusion or pneumothorax. Heart: Multi-chamber cardiac dilatation is noted. Lymph nodes: Small, nonspecific mediastinal nodes are present. Liver: Liver and spleen may be enlarged but are incompletely imaged. Bones/joints: Bony structures show no acute fracture or destructive process. IMPRESSION: 1. No evidence of acute, central pulmonary embolus. Peripheral pulmonary arterial evaluation is limited by cardiac and respiratory motion artifact. 2. Multifocal lung infiltrates suggestive of COVID-19 pneumonia Electronically signed by: Von Matthew On 07/11/2020 19:02:35 PM
--- NOTE | 2020-07-11 19:07 | REPVR ---
PROCEDURE INFORMATION: Exam: CT Abdomen And Pelvis With Contrast Exam date and time: 07/11/2020 6:20 PM Age: 59 years old Clinical indication: Abdominal pain; Additional info: Llq pain TECHNIQUE: Imaging protocol: Computed tomography of the abdomen and pelvis with intravenous contrast. Radiation optimization: All CT scans at this facility use at least one of these dose optimization techniques: automated exposure control; mA and/or kV adjustment per patient size (includes targeted exams where dose is matched to clinical indication); or iterative reconstruction. Contrast material: ISOVUE 370; Contrast volume: 100 ml; Contrast route: INTRAVENOUS (IV); COMPARISON: CT ABD/PEL W/IV CONTRAST ONLY 07/03/2020 11:41 PM FINDINGS: Liver: Liver is mildly enlarged without focal lesion. Probable hepatic steatosis Gallbladder and bile ducts: Gallbladder is present and shows no evidence of gallstone. Pancreas: Pancreas appears normal. No focal mass or peripancreatic inflammation. Spleen: Spleen is mildly enlarged, without focal lesion. Adrenal glands: Adrenal glands are normal in appearance. Kidneys and ureters: Kidneys demonstrate mild perinephric stranding but symmetric enhancement. No mass, hydronephrosis or obstructing stone. Stomach and bowel: No evidence of small bowel obstruction. Diverticular changes are present within the colon without inflammation. Appendix: Appendix is not seen. No RLQ inflammation to suggest appendicitis. Unchanged 2.4 x 1.6 cm ovoid fluid density structure just deep to the left inguinal canal in the anterior lower iliac fossa. This is unchanged since April 15, 2019 and probably a benign cyst. Intraperitoneal space: No pneumoperitoneum. Vasculature: No aortic aneurysm. Main portal and splenic veins enhance normally. Lymph nodes: No enlarged lymph nodes. Urinary bladder: Urinary bladder appears normal. Reproductive: No overt enlargement of the prostate gland. Dystrophic prostate calcifications are noted. Bones/joints: Benign bone island in the right femoral head. Mild degenerative change in the lower lumbar spine. Soft tissues: Subcutaneous scarring in the anterior lower abdomen bilaterally, unchanged. IMPRESSION: 1. No evidence of acute diverticulitis or other inflammatory left lower quadrant process. 2. Probable benign mesenteric cyst, anterior left lower quadrant unchanged since April 15, 2019. 3. Hepatosplenomegaly and hepatic steatosis, as seen on multiple prior CTs. Electronically signed by: Von Matthew On 07/11/2020 19:08:26 PM
[2020-07-11] MEDS ORDERED: ATORVASTATIN 20 MG TAB PO SCH (21:00)
[2020-07-11] MEDS ORDERED: HumaLOG INSULIN (NovoLOG) PER UNIT SC SCH (21:00)
[2020-07-11 21:47] VITALS: BP 140/66
[2020-07-11] MEDS: LEVEMIR (INSULIN DETEMIR) 1 UNITS/0.01ML SC SCH (22:33)
[2020-07-11 23:04] VITALS: O2SAT 95
[2020-07-11] MEDS: VANCOMYCIN ORAL SOL 250MG/5ML ORAL SYRINGE PO SCH (23:35)
[2020-07-12] MEDS: VANCOMYCIN ORAL SOL 250MG/5ML ORAL SYRINGE PO SCH ×4 (01:28→17:37)
[2020-07-12] MEDS: CO-ENZYME Q10 50 MG CAP PO SCH ×2 (01:28→08:34)
[2020-07-12 02:11] VITALS: O2SAT 96
[2020-07-12 06:00] LABS: HEMATOCRIT 42.4 % (42.0-52.0); LYMPH # 0.5 10^3/uL (1.5-5.0); LYMPH % 17.5 % (24.0-44.0); MEAN CORPUSCULAR HEMOGLOBIN 29.3 pg (27.0-33.0); MEAN CORPUSCULAR VOLUME 88.7 fl (80.0-96.0); MONO # 0.1 10^3/uL (0.0-0.8); MONO % 2.4 % (0.0-5.0); NEUTROPHILS # 2.4 10^3/uL (1.5-8.5); NEUTROPHILS % 79.8 % (36.0-66.0); PLATELET COUNT, AUTOMATED 151 10^3/uL (150-450); RED BLOOD COUNT 4.78 10^6/uL (4.30-6.10)
[2020-07-12] MEDS ORDERED: LEVOTHYROXINE 125MCG TABLET (0.125MG) PO SCH (06:00)
[2020-07-12 06:11] LABS: INR 1.05; PROTHROMBIN TIME 13.9 SECONDS (12.5-14.3)
[2020-07-12 06:12] LABS: PARTIAL THROMBOPLASTIN TIME 32.6 SECONDS (24.2-38.5)
[2020-07-12 06:14] LABS: D-DIMER QUANT 367.41 ng/ml (<500)
[2020-07-12 06:34] LABS: ALBUMIN 3.3 GM/DL (3.2-5.2); ALT/SGPT 35 U/L (12-78); BILIRUBIN,DIRECT 0.2 MG/DL (0.0-0.2); BILIRUBIN,TOTAL 0.6 MG/DL (0.2-1.0); BLOOD UREA NITROGEN 12 MG/DL (7-18); C REACTIVE PROTEIN QUANTITATIV 5.77 MG/DL (0.00-0.30); CALCIUM LEVEL 8.5 MG/DL (8.5-10.1); CARBON DIOXIDE LEVEL 26 MEQ/L (21-32); CHLORIDE LEVEL 104 MEQ/L (98-107); CREATININE FOR GFR 0.86 MG/DL (0.70-1.30); FERRITIN 534 NG/ML (26-388); GLOMERULAR FILTRATION RATE > 60.0 (>56); GLUCOSE, FASTING 294 MG/DL (70-100); LDH LACTATE DEHYDROGENASE 252 U/L (87-241); MAGNESIUM LEVEL 2.3 MG/DL (1.8-2.4); NT-PRO BNP 132 PG/ML (<125); POTASSIUM SERUM 4.7 MEQ/L (3.5-5.1); SODIUM LEVEL 135 MEQ/L (136-145); TOTAL PROTEIN 6.4 GM/DL (6.4-8.2); TRIGLYCERIDES LEVEL 62 MG/DL (<150); TROPONIN I < 0.02 NG/ML (< 0.10)
[2020-07-12 08:00] VITALS: O2SAT 93
[2020-07-12] MEDS: LEVEMIR (INSULIN DETEMIR) 1 UNITS/0.01ML SC SCH (08:32)
[2020-07-12] MEDS: HumaLOG INSULIN (NovoLOG) PER UNIT SC SCH ×3 (08:34→17:38)
[2020-07-12 08:36] VITALS: BP 127/72
[2020-07-12] MEDS ORDERED: CETIRIZINE (ZyrTEC) 10 MG TAB PO SCH (09:00)
[2020-07-12] MEDS ORDERED: PANTOPRAZOLE 40MG TAB (PROTONIX) PO SCH (09:00)
[2020-07-12] MEDS ORDERED: LOSARTAN 50MG TABLET PO SCH (09:00)
[2020-07-12] MEDS ORDERED: ASPIRIN 81 MG CHEW TABLET PO SCH (09:00)
[2020-07-12] MEDS ORDERED: ENOXAPARIN 40MG/0.4ML SYRINGE (J1650 PER 10MG) SC SCH (09:00)
[2020-07-12] MEDS ORDERED: PARoxetine 20MG TABLET PO SCH (09:00)
[2020-07-12 09:08] LABS: HEPATITIS B SURFACE ANTIGEN NEGATIVE (NEGATIVE)
[2020-07-12 09:37] LABS: HIV 1&2 SCREEN CENTAUR NEGATIVE (NEGATIVE)
[2020-07-12 12:00] VITALS: BP 131/71; O2SAT 91
[2020-07-12] MEDS ORDERED: VANC125C3 PO (12:21)
[2020-07-12] MEDS ORDERED: TESS100C PO (12:21)
[2020-07-12] MEDS ORDERED: ALBU8.5H INH (12:21)
[2020-07-12] MEDS ORDERED: PROBCAP2 PO (12:21)
[2020-07-12] MEDS ORDERED: LEVO750T13 PO (12:21)
--- NOTE | 2020-07-12 12:43 | DS.PDOC ---
Discharge Summary General Date of Admission Jul 11, 2020 at 16:04 Date of Discharge 07/12/2020 Attending Physician: STEFF UGALDE MD Discharge Summary PROCEDURES PERFORMED DURING STAY: None ADMITTING DIAGNOSES: Covid-19 infection Recent C.diff infection with ongoing treatment Constipation Scrotal pain DISCHARGE DIAGNOSES: Covid-19 infection Recent C.diff infection with ongoing treatment Constipation i/s/o recent loperamide Epididymitis LUCILA not using CPAP IDDM Hypothyroidism HTN Obesity HLD COMPLICATIONS/CHIEF COMPLAINT: Abdominal Pain,Covid-19,Hypoxia,Pneumonia,Sc rotal. HISTORY OF PRESENT ILLNESS: 59 yo M with a history of IDDM, coronary artery diseases, hyperlipidemia, cardiac stent placement in 2016, hypothyroidism who developed respiratory symptoms and diarrhea on 06/29, was diagnosed with C.diff infection on 07/03 and started on PO vanc and loperamide QID? at the same time, and finally diagnosed with covid-19 on 07/04 who represented to [facility] with abdominal pain at R suprapubic area/lower abdominal pain, constipation for 5 days with last very small BM the day before admission, poor PO, without nausea, emesis and worsening dry to mildly productive cough and chills. He denied recent krupa fevers, rigors, krupa chest pain, palpitations. HOSPITAL COURSE In the ED, he arrived HDS, afebrile and saturating well on room air but was noted to desaturate to 89-90% and acutely became dizzy and SOB on standing to ambulate. His abdomen was hypoactive and mildly distended and tender and reported scrotal pain especially on the R side. Workup was notable for leukopenia to WBC 3.7, hgb 14.8, platelets of 139, Na 137, K 4, Cr 0.83, lactate wnl, procalcitonin <0.05, troponin wnl, LDH 268, CRP 4.07, Ddimer 391, fibrinogen 624 and CXR showed LLL infiltrate. Given the scrotal pain, he had a scrotal US that showed a moderate complex L hydrocele with floating debris c/f epididymitis. UA was bland and GC/CT was ordered and is pending. Given the LLL infiltrate (likely viral given negative procalcitonin) and ongoing epididymitis he was given IV levaquin and he was also started on PO vanc for ongoing C.diff infection and loperamide was discontinued and CT A/P ordered for c/f obstructive pathology given Q6H loperamide during an active C.diff infection, while a CTA chest was also ordered for exertional hypoxemia with a +ddimer in a covid-19 patient. His CTA was negative for a PE and showed multifocal GGO's c/w covid infection, while procalcitonin was negative, and CT A/P showed normal gas pattern without obstructive pathology, bowel edema or inflammation. He did well overnight without any noted hypoxemia even with exertion, was afebrile and labs were stable without worsening covid-indices. He is now being discharged home to complete the oral vancomycin for the recent C.diff infection and 7d of levaquin for the ongoing epididymitis, as well as covid infection supportive medications namely, albuterol mdi, tessalon perls for cough, as well as a probiotic. DISCHARGE MEDICATIONS: Please see below. ALLERGIES: Please see below. PHYSICAL EXAMINATION ON DISCHARGE: VITAL SIGNS: HDS, afebrile, stable on room air GENERAL APPEARANCE: Ill appearing, shivering during my examination, clammy HEENT: NCAT, EOMI, MMM CARDIOVASCULAR: RRR, no m/r/g LUNGS: Good air movement, no wheezing or crackles at this time. coughing through his speech, has cough fits mild distress when he coughs that resolves promptly ABDOMEN: Mild distention, hypoactive sounds, lower quadrants TTP, no rebound or involuntary guarding EXTREMITIES: WWP, no LE edema NEUROLOGICAL: AOx3, CN 3-12 intact, speech clear, moving all extremities PSYCHIATRIC: AOx3 LABORATORY DATA: Please see below. IMAGING: CT A/P without contrast: FINDINGS: Liver: Liver is mildly enlarged without focal lesion. Probable hepatic steatosis Gallbladder and bile ducts: Gallbladder is present and shows no evidence of gallstone. Pancreas: Pancreas appears normal. No focal mass or peripancreatic inflammation. Spleen: Spleen is mildly enlarged, without focal lesion. Adrenal glands: Adrenal glands are normal in appearance. Kidneys and ureters: Kidneys demonstrate mild perinephric stranding but symmetric enhancement. No mass, hydronephrosis or obstructing stone. Stomach and bowel: No evidence of small bowel obstruction. Diverticular changes are present within the colon without inflammation. Appendix: Appendix is not seen. No RLQ inflammation to suggest appendicitis. Unchanged 2.4 x 1.6 cm ovoid fluid density structure just deep to the left inguinal canal in the anterior lower iliac fossa. This is unchanged since April 15, 2019 and probably a benign cyst. Intraperitoneal space: No pneumoperitoneum. Vasculature: No aortic aneurysm. Main portal and splenic veins enhance normally. Lymph nodes: No enlarged lymph nodes. Urinary bladder: Urinary bladder appears normal. Reproductive: No overt enlargement of the prostate gland. Dystrophic prostate calcifications are noted. Bones/joints: Benign bone island in the right femoral head. Mild degenerative change in the lower lumbar spine. Soft tissues: Subcutaneous scarring in the anterior lower abdomen bilaterally, unchanged. IMPRESSION: 1. No evidence of acute diverticulitis or other inflammatory left lower quadrant process. 2. Probable benign mesenteric cyst, anterior left lower quadrant unchanged since April 15, 2019. 3. Hepatosplenomegaly and hepatic steatosis, as seen on multiple prior CTs. CTA chest: FINDINGS: Pulmonary arteries: Peripheral pulmonary artery evaluation limited by cardiac and respiratory motion artifact. Central pulmonary arteries show no intraluminal defect suggestive of clot. Aorta: No thoracic aortic aneurysm or dissection. Lungs: Pulmonary vascular/interstitial pattern does not suggest active pulmonary edema. Patchy multifocal airspace infiltrates bilaterally. No central endobronchial lesion or dense consolidation. Pleural space: No pleural effusion or pneumothorax. Heart: Multi-chamber cardiac dilatation is noted. Lymph nodes: Small, nonspecific mediastinal nodes are present. Liver: Liver and spleen may be enlarged but are incompletely imaged. Bones/joints: Bony structures show no acute fracture or destructive process. IMPRESSION: 1. No evidence of acute, central pulmonary embolus. Peripheral pulmonary arterial evaluation is limited by cardiac and respiratory motion artifact. 2. Multifocal lung infiltrates suggestive of COVID-19 pneumonia CXR: Infiltrate is visualized in the left lung base. No infiltrate is seen in the right lung. Heart and mediastinum are unchanged. IMPRESSION: Infiltrate lower left lung. Scrotal US: The bilateral testicles and right epididymis are normal in contour, size, echogenicity, vascularity and overall appearance. The left epididymis appears heterogeneous and mildly thickened and includes 2 mm epididymal head cyst. There also appears to be a moderate complex left hydrocele with floating debris. Color evaluation demonstrates no significant asymmetric hypervascularity. Findings may represent resolving epididymitis and should be correlated with physical examination. No right hydrocele or bilateral varicoceles are identified. Right testicle measures 5.5 x 2.4 x 3.2 cm. Left testicle measures 5.6 x 2.2 x 3.3 cm. IMPRESSION: 1. Asymmetric findings involving the left epididymis and complex left hydrocele raise the possibility of resolving epididymitis. Correlation is recommended. 2. Bilateral testicles and right epididymis are normal. PROGNOSIS: Good ACTIVITY: As tolerated DIET: Consistent carb DISCHARGE PLAN: Home with PCP follow up DISPOSITION: Home DISCHARGE INSTRUCTIONS: Home to complete the oral vancomycin for the recent C.diff infection and 7d of levaquin for the ongoing epididymitis, as well as covid infection supportive medications namely, albuterol mdi, tessalon perls for cough, as well as a probiotic. ITEMS TO FOLLOWUP ON ON OUTPATIENT: C.diff infection resolution Covid-19 infection Epididymitis DISCHARGE CONDITION: Stable TIME SPENT ON DISCHARGE: 46 minutes. Vital Signs/I&Os Vital Signs Date Time Temp Pulse Resp B/P (MAP) Pulse Ox O2 Delivery O2 Flow Rate FiO2 07/12/20 08:36 127/72 07/12/20 02:14 16 07/12/20 02:11 96 Room Air 07/11/20 23:04 2.0 07/11/20 21:47 100.6 85 I&O- Last 24 Hours up to 6 AM 07/12/20 06:00 Intake Total 1630 ml Output Total 1900 ml Balance -270 ml Laboratory Data Labs 24H Laboratory Tests 2 07/11/20 14:01: Immature Granulocyte % (Auto) 0.3, Neutrophils (%) (Auto) 71.6H, Lymphocytes (%) (Auto) 21.5L, Monocytes (%) (Auto) 6.0H, Eosinophils (%) (Auto) 0.3, Basophils (%) (Auto) 0.3, Neutrophils # (Auto) 2.6, Lymphocytes # (Auto) 0.8L, Monocytes # (Auto) 0.2, Eosinophils # (Auto) 0.0, Basophils # (Auto) 0.0, Nucleated Red Blood Cells % (auto) 0.0, Prothrombin Time 12.9, Prothromb Time International Ratio 0.95, Activated Partial Thromboplast Time 30.4, Fibrinogen 624H, D-Dimer, Quantitative 391.92, Anion Gap 6L, Glomerular Filtration Rate > 60.0, Lactic Acid Level 1.1, Calcium Level 8.5, Magnesium Level 2.2, Ferritin 519H, Total Bilirubin 0.7, Aspartate Amino Transf (AST/SGOT) 21, Alanine Aminotransferase (ALT/SGPT) 38, Alkaline Phosphatase 109, Lactate Dehydrogenase 268H, Total Creatine Kinase 120, Creatine Kinase MB < 1.0, Creatine Kinase MB Relative Index 0.83, Troponin I < 0.02, C-Reactive Protein, Quantitative 4.07H, Total Protein 6.5, Albumin 3.5, Albumin/Globulin Ratio 1.2, Procalcitonin <0.05 07/11/20 15:36: Urine Color YELLOW, Urine Appearance HAZY, Urine pH 6.0, Urine Specific Addis 1.021, Urine Protein 2+H, Urine Glucose (UA) 1+H, Urine Ketones 1+H, Urine Blood NEGATIVE, Urine Nitrite NEGATIVE, Urine Bilirubin NEGATIVE, Urine Urobilinogen 0.2, Urine Leukocyte Esterase NEGATIVE, Urine WBC (Auto) 0, Urine RBC (Auto) 2, Urine Hyaline Casts (Auto) 0, Urine Bacteria (Auto) NEGATIVE, Urine Squamous Epithelial Cells 0, Urine Mucus (Auto) SMALL, Urine Sperm (Auto) 07/11/20 22:32: Bedside Glucose (Misc Panel) 288H 07/12/20 05:48: Immature Granulocyte % (Auto) 0.3, Neutrophils (%) (Auto) 79.8H, Lymphocytes (%) (Auto) 17.5L, Monocytes (%) (Auto) 2.4, Eosinophils (%) (Auto) 0.0, Basophils (%) (Auto) 0.0, Neutrophils # (Auto) 2.4, Lymphocytes # (Auto) 0.5L, Monocytes # (Auto) 0.1, Eosinophils # (Auto) 0.0, Basophils # (Auto) 0.0, Nucleated Red Blood Cells % (auto) 0.0, Prothrombin Time 13.9, Prothromb Time International Ratio 1.05, Activated Partial Thromboplast Time 32.6, Fibrinogen 608H, D-Dimer, Quantitative 367.41, Anion Gap 5L, Glomerular Filtration Rate > 60.0, Lactic Acid Level 1.2, Calcium Level 8.5, Magnesium Level 2.3, Ferritin 534H, Total Bilirubin 0.6, Aspartate Amino Transf (AST/SGOT) 15, Alanine Aminotransferase (ALT/SGPT) 35, Alkaline Phosphatase 106, Lactate Dehydrogenase 252H, Troponin I < 0.02, C-Reactive Protein, Quantitative 5.77H, Total Protein 6.4, Albumin 3.3, Albumin/Globulin Ratio 1.1, Procalcitonin <0.05, Direct Bilirubin 0.2, NT-Coc-N-Type Natriuretic Peptide 132H, Triglycerides Level 62, Hepatitis B Surface Antigen NEGATIVE, HIV Antigen/Antibody Combo Qual NEGATIVE 07/12/20 11:35: Bedside Glucose (Misc Panel) 386H CBC/BMP Laboratory Tests 07/11/20 14:01 07/12/20 05:48 FSBS Laboratory Tests Test 07/11/20 22:32 07/12/20 11:35 Range/Units Bedside Glucose (Misc Panel) 288 386 70-105 MG/DL Microbiology Microbiology 07/11/20 Blood Culture, Received Pending 07/11/20 Blood Culture, Received Pending Discharge Medications Scheduled Aspirin (Aspirin) 81 Mg Chw, 81 MG PO DAILY, (Reported) Atorvastatin Calcium (Atorvastatin Calcium) 40 Mg Tablet, 40 MG PO QHS, (Reported) Benzonatate (Tessalon Perle) 100 Mg Capsule, 1 CAP PO TID for cough Cetirizine HCl (Cetirizine HCl) 10 Mg Tablet, 10 MG PO DAILY, (Reported) Cholecalciferol (Vitamin D3) (Vitamin D3) 50 Mcg Capsule, 100 MCG PO DAILY, (Reported) Dulaglutide (Trulicity) 1.5 Mg/0.5 Ml Pen.injctr, 1.5 MG IM QWEEK, (Reported) FRIDAY Insulin Glargine,Hum.rec.anlog (Basaglar Kwikpen U-100) 100 Unit/1 Ml Insuln.pen, 60 UNIT SC BID, (Reported) Lactobacillus 3/Fos/Pantethine (Probiotic & Acidophilus Cap) 1 Each Capsule, 1 CAP PO DAILY Levofloxacin (Levofloxacin) 750 Mg Tablet, 1 TAB PO DAILY Levothyroxine Sodium (Levo-T) 125 Mcg Tablet, 125 MCG PO DAILY, (Reported) Losartan Potassium (Losartan Potassium) 100 Mg Tablet, 100 MG PO DAILY, (Reported) Nitroglycerin (Nitrostat) 0.4 Mg Subl, 0.4 MG SL Q5MP, (Reported) Pantoprazole Sodium (Pantoprazole Sodium) 40 Mg Tablet.dr, 40 MG PO DAILY, (Reported) Paroxetine HCl (Paroxetine HCl) 20 Mg Tab, 20 MG PO DAILY, (Reported) Ubidecarenone (Coenzyme Q10) 100 Mg Cap, 200 MG PO BID, (Reported) Vancomycin Hcl (Vancomycin HCl) 125 Mg Capsule, 125 MG PO QID Zinc Oxide (Diaper Rash) 113 Gm Cream..g., 1 APLCT TOP BID Scheduled PRN Albuterol Sulfate (Albuterol Sulfate Hfa) 8.5 Gm Hfa.aer.ad, 2 PUFFS INH Q6HP PRN for SOB/COUGH Dicyclomine HCl (Dicyclomine HCl) 10 Mg Capsule, 1 CAP PO Q6HP PRN for irritable bowel symptoms Insulin Lispro (Admelog Solostar) 100 Unit/1 Ml Insuln.pen, 1 DOSE SC ASDIRECTED PRN for SLIDING SCALE, (Reported) Allergies Coded Allergies: Sulfa (Sulfonamide Antibiotics) (Verified Allergy, Severe, ANAPHYLAXIS, 12/14/18) [place] (Verified Allergy, Severe, ANAPHYLAXIS, 06/04/20) amoxicillin (Verified Allergy, Unknown, 12/14/18) cefdinir (Verified Allergy, Unknown, 12/14/18) clavulanic acid (Verified Allergy, Unknown, 12/14/18) pseudoephedrine (Verified Adverse Reaction, Severe, high bp, 08/12/19) lisinopril (Verified Adverse Reaction, Intermediate, BRADYKININ COUGH, 08/12/19) STEFF UGALDE MD Jul 12, 2020 12:42
[2020-07-12 16:00] VITALS: O2SAT 93
[2020-07-12] MEDS ORDERED: LevoFLOXacin IV 750 MG in IV 1 EA IV SCH (18:00)
[2020-07-12 20:27] VITALS: BP 142/72
== END 2020-07-12 20:00 | disposition home or self-care (01) | DRG 137 ==
LOC: M ED 12:31 → M ED INP 16:04 → ENRESERV 16:56 → M 4MAIN 21:47
PROVIDERS: ADMIT Internal Medicine; ATTEND Internal Medicine
DX: U07.1 COVID-19 (principal); I71.2 Thoracic aortic aneurysm, without rupture; A04.72 Enterocolitis due to Clostridium difficile, not specified as recurrent; J12.89 Other viral pneumonia; I10 Essential (primary) hypertension; E11.9 Type 2 diabetes mellitus without complications; E66.9 Obesity, unspecified; Z68.39 Body mass index [BMI] 39.0-39.9, adult; N45.1 Epididymitis; G47.33 Obstructive sleep apnea (adult) (pediatric); K59.00 Constipation, unspecified; E78.5 Hyperlipidemia, unspecified; Z95.2 Presence of prosthetic heart valve; Z79.899 Other long term (current) drug therapy; Z79.82 Long term (current) use of aspirin; Z79.4 Long term (current) use of insulin; Z88.2 Allergy status to sulfonamides; Z88.1 Allergy status to other antibiotic agents; Z88.8 Allergy status to other drugs, medicaments and biological substances; Z91.018 Allergy to other foods; K21.9 Gastro-esophageal reflux disease without esophagitis; F32.9 Major depressive disorder, single episode, unspecified; I25.10 Atherosclerotic heart disease of native coronary artery without angina pectoris

== ENCOUNTER 2020-07-13 12:33 | Inpatient (IN) | payer OTHER ==
[~2020-07-13] VITALS: Ht 182.9 cm; Wt 113.1 kg
[~2020-07-13 12:33] MED LIST changes: +ALBU8.5H INH; +LEVO-92 PO; +LEVO750T13 PO; +LOPE2CAP PO; +PROBCAP2 PO; +TESS100C PO
--- NOTE | 2020-07-13 13:36 | REP ---
INDICATION: Coronavirus workup. COMPARISON: Comparison portable chest x-ray 11 July 2020. TECHNIQUE: Portable upright AP chest radiograph. FINDINGS: The lungs are exposed at a somewhat lesser level of inspiration. There is an infiltrate in the left base which appears more extensive than on the study done 2 days prior. Increased markings are felt to be present above the minor fissure in the right upper lobe today and a subtle interstitial infiltrate in the right upper lobe is suspected. Monitoring electrodes and oxygen delivery tubing are seen.. IMPRESSION: Relatively low level of inspiration. Increased infiltrate left base. Question new infiltrate right upper lobe.. <Electronically signed by Rex Lara > 07/13/20 [id number]
[2020-07-13 13:49] LABS: BASO % 0.1 % (0.0-1.0); HEMATOCRIT 40.7 % (42.0-52.0); HEMOGLOBIN 13.9 g/dl (13.5-17.5); LYMPH # 0.7 10^3/uL (1.5-5.0); MEAN CORPUSCULAR HEMOGLOBIN 29.8 pg (27.0-33.0); MEAN CORPUSCULAR HGB CONC 34.2 g/dl (32.0-36.5); MEAN CORPUSCULAR VOLUME 87.3 fl (80.0-96.0); MONO # 0.4 10^3/uL (0.0-0.8); MONO % 3.7 % (0.0-5.0); NEUTROPHILS # 8.7 10^3/uL (1.5-8.5); NEUTROPHILS % 88.7 % (36.0-66.0); PLATELET COUNT, AUTOMATED 191 10^3/uL (150-450); RED BLOOD COUNT 4.66 10^6/uL (4.30-6.10); WHITE BLOOD COUNT 9.8 10^3/uL (4.0-10.0)
[2020-07-13 13:59] LABS: INR 1.05; PROTHROMBIN TIME 13.9 SECONDS (12.5-14.3)
[2020-07-13 14:00] LABS: PARTIAL THROMBOPLASTIN TIME 29.8 SECONDS (24.2-38.5)
[2020-07-13 14:03] LABS: D-DIMER QUANT 334.37 ng/ml (<500)
[2020-07-13 14:28] LABS: ALBUMIN 3.3 GM/DL (3.2-5.2); ALT/SGPT 35 U/L (12-78); BILIRUBIN,TOTAL 0.7 MG/DL (0.2-1.0); BLOOD UREA NITROGEN 21 MG/DL (7-18); C REACTIVE PROTEIN QUANTITATIV 7.52 MG/DL (0.00-0.30); CALCIUM LEVEL 8.6 MG/DL (8.5-10.1); CARBON DIOXIDE LEVEL 27 MEQ/L (21-32); CHLORIDE LEVEL 106 MEQ/L (98-107); CK-MB VALUE MASS < 1.0 NG/ML (<3.6); CPK CREATINE PHOSPHOKINASE 111 U/L (39-308); CREATININE FOR GFR 1.04 MG/DL (0.70-1.30); FERRITIN 592 NG/ML (26-388); GLOMERULAR FILTRATION RATE > 60.0 (>56); GLUCOSE, FASTING 134 MG/DL (70-100); LDH LACTATE DEHYDROGENASE 247 U/L (87-241); MAGNESIUM LEVEL 1.7 MG/DL (1.8-2.4); POTASSIUM SERUM 3.8 MEQ/L (3.5-5.1); SODIUM LEVEL 137 MEQ/L (136-145); TOTAL PROTEIN 6.7 GM/DL (6.4-8.2); TROPONIN I < 0.02 NG/ML (< 0.10)
[2020-07-13] MEDS ORDERED: GLUCAGON INJ 1MG VIAL SC PRN (17:15)
[2020-07-13] MEDS ORDERED: DICYCLOMINE 10 MG CAP PO PRN (17:15)
[2020-07-13] MEDS ORDERED: DEXTROSE 50% 50 ML SYRINGE IV PRN (17:15)
[2020-07-13] MEDS ORDERED: NITROGLYCERIN 0.4 MG SUBL TABLET SL PRN (17:15)
[2020-07-13] MEDS ORDERED: GLUCOSE 4GM CHEW TABLET PO PRN (17:15)
[2020-07-13] MEDS ORDERED: ALBUTEROL 90 MCG/ACT 8GM HFA INHALER INH PRN (17:15)
[2020-07-13] MEDS: HumaLOG INSULIN (NovoLOG) PER UNIT SC SCH (17:30)
--- NOTE | 2020-07-13 18:07 | HPEPDOC ---
[facility] Medical History & Physical Date of Admission Jul 13, 2020 Date of Service: Jul 13, 2020 Attending Physician: SETFF UGALDE MD History and Physical CHIEF COMPLAINT: Dyspnea HISTORY OF PRESENT ILLNESS: 59 yo M with a history of IDDM, coronary artery diseases, hyperlipidemia, cardiac stent placement in 2017, hypothyroidism who developed respiratory symptoms and diarrhea on 06/29, was diagnosed with C.diff infection on 07/03 and started on PO vanc and loperamide QID? at the same time, and finally diagnosed with covid-19 on 07/04 who was recently admitted at [facility] 07/11 - 07/12 with abdominal pain at R suprapubic area/lower abdominal pain, constipation for 5 days and found to have mild covid-19 infection without hypoxemia, and constipation without obstruction or toxic megacolon with resolving c.diff infection, who now returns reporting worsening dyspnea without any noted krupa fevers, no diarrhea or abdominal pain, no chest pain or palpitations. Chief complaint is worsening dyspnea at rest and worse with exertion with poor PO intake. In the ED, he arrived HDS, afebrile and saturating 84% at rest on room air and desaturated to 70s% exertion. Workup today was notable for WBC 9.8, hgb 13.9, platelets of 191, Cr 1.04, lactate wnl, procalcitonin <0.05, troponin wnl, Ddimer down to 334 from 330 at discharge yesterday, fibrinogen 608 from 667, and CXR showed worsening now multifocal infiltrates that were previously LLL. Of note, he was discharged home on PO vanc for resolving C.diff infection with recent CT A/P that showed normal gas pattern without acute obstruction or faraz acolon, while recent CTA did not showed a PE but multifocal GGOs. He is now being admitted for worsening covid-19 PNA with hypoxemic respiratory failure. ALLERGIES: Sulfa (Sulfonamide Antibiotics) (Verified Allergy, Severe, ANAPHYLAXIS, 12/14/18) [place] (Verified Allergy, Severe, ANAPHYLAXIS, 06/04/20) amoxicillin (Verified Allergy, Unknown, 12/14/18) cefdinir (Verified Allergy, Unknown, 12/14/18) clavulanic acid (Verified Allergy, Unknown, 12/14/18) pseudoephedrine (Verified Adverse Reaction, Severe, high bp, 08/12/19) lisinopril (Verified Adverse Reaction, Intermediate, BRADYKININ COUGH, 08/12/19) PAST MEDICAL HISTORY: LUCILA/ CPAP PULMONARY (LAST SEEN 06/16)- NOT USING DM2 HYPOTHYROIDISM: MARGO GERD: DIET CONTROLLED HTN OBESITY DYSLIPIDEMIA H/O ANXIETY ALLERGIC RHINITIS PNEUMOVAX- REFUSES THORACIC ANUERYSM LBBB ECHOCARDIOGRAM 05/[address] 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 REDDY. + ADENOMA: REPEAT DUE 04/2017 CARDIAC STENT: [facility] 08/2017 FAMILY HISTORY: FATHER: 82 YRS, CAD, DIAGNOSED WITH HYPERTENSION, DIABETES, UNSPECIFIED HEART DISEASE MOTHER: 82 YRS, DEMENTIA, TIAS SIBLINGS: BROTHER FROM RECTAL CANCER BROTHER GSW OTHER SIBS: WELL SISTER 71YO WITH LUNG CA 1 BROTHER(S) , 1 SISTER(S) . 1 SON(S) , 2 DAUGHTER(S) - HEALTHY. BROTHER IN OCTOBER D/T COLORECTAL CANCERBROTHER - MVASISTER- LUNG CA (2). SOCIAL HISTORY: No alcohol, nicotine or illicit drug use. REVIEW OF SYSTEMS:12 point ROS was completed, and all pertinent positives were noted in HPI. HOME MEDICATIONS: Please see below. PHYSICAL EXAMINATION: VITAL SIGNS: HDS, afebrile, on 2L NC GENERAL APPEARANCE: Ill appearing, appears uncomfortable HEENT: NCAT, EOMI, MMM CARDIOVASCULAR: RRR, no m/r/g LUNGS: Good air movement, no wheezing or crackles at this time. coughing while we speak with some mild distress. Nasal canula in place. ABDOMEN: Obese, soft, normoactive sounds, NTND EXTREMITIES: WWP, no LE edema NEUROLOGICAL: AOx3, CN 3-12 intact, speech clear, moving all extremities PSYCHIATRIC: AOx3 LABORATORY DATA: summarized above IMAGIN07/13/2020 CXR FINDINGS: The lungs are exposed at a somewhat lesser level of inspiration. There is an infiltrate in the left base which appears more extensive than on the study done 2 days prior. Increased markings are felt to be present above the minor fissure in the right upper lobe today and a subtle interstitial infiltrate in the right upper lobe is suspected. Monitoring electrodes and oxygen delivery tubing are seen.. IMPRESSION: Relatively low level of inspiration. Increased infiltrate left base. Question new infiltrate right upper lobe.. MICROBIOLOGY: Please see below. ASSESSMENT: 59 yo M with a history of IDDM, coronary artery diseases, hyperlipidemia, cardiac stent placement in 2017, hypothyroidism who developed respiratory symptoms and diarrhea on 06/29, was diagnosed with C.diff infection on 07/03 and finally diagnosed with covid-19 on 07/04 who was admitted at [facility] 07/11 - 07/12 for mild covid-19 infection and abdominal pain and epididymitis and was discharged home but now returns with worsening dyspnea and found to have new hypoxemic respiratory failure with imaging c/w worsening covid-19 PNA. Covid-19 PNA: LLL infiltrates with negative procalcitonin with mild exertional hypoxemia -trend covid labs including procal -continue PO levaquin that will also cover recent epididymitis -sputum culture -incentive spiromtery -tessalon perls for cough -albuterol inh PRN -q4H pulse ox -droplet precautions -will give lovenox at 40 QD given Ddimer in 300s unless -supplemental O2 -dex 6mg daily, no remdesevir given out of the window for proven potential benefit. Recent C.diff infection c/b loperamide usage: resolved. -Recent CT A/P wnl Recent diagnosis of epididymitis: -UA was bland -f/u GC/CT testing was negative -empiric levaquin, on levaquin day 2 of 7 IDDM: -levemir for lantus long acting insulin -SSI AC/HS -hypoglycemia protocol -FSBG AC/HS -hold trulicity CAD: -c/w ASA/lipitor -PRN SLN Depression: -c/w paxil HTN -continue ARB DVT ppx: lovenox 40 QD Dispo: med/surg, covid floor Vital Signs Vital Signs Date Time Temp Pulse Resp B/P (MAP) Pulse Ox O2 Delivery O2 Flow Rate FiO2 07/13/20 12:49 97.8 93 24 141/68 96 Nasal Cannula 2.0 Laboratory Data Labs 24H Laboratory Tests 2 07/13/20 13:35: Immature Granulocyte % (Auto) 0.5, Neutrophils (%) (Auto) 88.7H, Lymphocytes (%) (Auto) 7.0L, Monocytes (%) (Auto) 3.7, Eosinophils (%) (Auto) 0.0, Basophils (%) (Auto) 0.1, Neutrophils # (Auto) 8.7H, Lymphocytes # (Auto) 0.7L, Monocytes # (Auto) 0.4, Eosinophils # (Auto) 0.0, Basophils # (Auto) 0.0, Nucleated Red Blood Cells % (auto) 0.0, Prothrombin Time 13.9, Prothromb Time International Ratio 1.05, Activated Partial Thromboplast Time 29.8, Fibrinogen 667H, D-Dimer, Quantitative 334.37, Anion Gap 4L, Glomerular Filtration Rate > 60.0, Lactic Acid Level 1.7, Calcium Level 8.6, Magnesium Level 1.7L, Ferritin 592H, Total Bilirubin 0.7, Aspartate Amino Transf (AST/SGOT) 16, Alanine Aminotransferase (ALT/SGPT) 35, Alkaline Phosphatase 91, Lactate Dehydrogenase 247H, Total Creatine Kinase 111, Creatine Kinase MB < 1.0, Creatine Kinase MB Relative Index 0.90, Troponin I < 0.02, C-Reactive Protein, Quantitative 7.52H, Total Protein 6.7, Albumin 3.3, Albumin/Globulin Ratio 1.0, Procalcitonin <0.05 CBC/BMP Laboratory Tests 07/13/20 13:35 Microbiology Microbiology 07/13/20 Blood Culture, Received Pending 07/13/20 Respiratory Virus Panel (PCR) ([facility]) - Final, Complete SARS-CoV-2 (COVID 19) 07/13/20 Blood Culture, Received Pending Home Medications Scheduled Aspirin (Aspirin) 81 Mg Chw, 81 MG PO DAILY Atorvastatin Calcium (Atorvastatin Calcium) 40 Mg Tablet, 40 MG PO QHS Benzonatate (Tessalon Perle) 100 Mg Capsule, 1 CAP PO TID for cough Cetirizine HCl (Cetirizine HCl) 10 Mg Tablet, 10 MG PO DAILY Cholecalciferol (Vitamin D3) (Vitamin D3) 50 Mcg Capsule, 100 MCG PO DAILY Dulaglutide (Trulicity) 1.5 Mg/0.5 Ml Pen.injctr, 1.5 MG IM QWEEK FRIDAY Insulin Glargine,Hum.rec.anlog (Basaglar Kwikpen U-100) 100 Unit/1 Ml Insuln.pen, 60 UNIT SC BID Lactobacillus 3/Fos/Pantethine (Probiotic & Acidophilus Cap) 1 Each Capsule, 1 CAP PO DAILY Levofloxacin (Levofloxacin) 750 Mg Tablet, 1 TAB PO DAILY Levothyroxine Sodium (Levo-T) 125 Mcg Tablet, 125 MCG PO DAILY Losartan Potassium (Losartan Potassium) 100 Mg Tablet, 100 MG PO DAILY Nitroglycerin (Nitrostat) 0.4 Mg Subl, 0.4 MG SL Q5MP Pantoprazole Sodium (Pantoprazole Sodium) 40 Mg Tablet.dr, 40 MG PO QHS Paroxetine HCl (Paroxetine HCl) 20 Mg Tab, 20 MG PO QHS Ubidecarenone (Coenzyme Q10) 100 Mg Cap, 200 MG PO BID Vancomycin Hcl (Vancomycin HCl) 125 Mg Capsule, 125 MG PO QID Zinc Oxide (Diaper Rash) 113 Gm Cream..g., 1 APLCT TOP BID Scheduled PRN Albuterol Sulfate (Albuterol Sulfate Hfa) 8.5 Gm Hfa.aer.ad, 2 PUFFS INH Q6HP PRN for SOB/COUGH Dicyclomine HCl (Dicyclomine HCl) 10 Mg Capsule, 1 CAP PO Q6HP PRN for irritable bowel symptoms Insulin Lispro (Admelog Solostar) 100 Unit/1 Ml Insuln.pen, 1 DOSE SC ASDIRECTED PRN for SLIDING SCALE Allergies Coded Allergies: Sulfa (Sulfonamide Antibiotics) (Verified Allergy, Severe, ANAPHYLAXIS, 12/14/18) [place] (Verified Allergy, Severe, ANAPHYLAXIS, 06/04/20) amoxicillin (Verified Allergy, Unknown, 12/14/18) cefdinir (Verified Allergy, Unknown, 12/14/18) clavulanic acid (Verified Allergy, Unknown, 12/14/18) pseudoephedrine (Verified Adverse Reaction, Severe, high bp, 08/12/19) lisinopril (Verified Adverse Reaction, Intermediate, BRADYKININ COUGH, 08/12/19) A-FIB/CHADSVASC A-FIB History Current/History of A-Fib/PAF?: No Current PO Anticoag Therapy: No Age/Risk Factor Scoring CHADSVASC: CHADSVASC Response (Comments) Value Age Risk Factor Age < 65 years old 0 Gender Risk Factor Male 0 Hx of CHF No 0 Hx of HTN Yes 1 Hx of Stroke/TIA/or VTE No 0 Hx of Diabetes Yes 1 Hx of Vascular Disease No 0 Total 2 Treatment Treatment ordered: NONE Reason Anticoagulant not given: Not indicated/[id number] STEFF UGALDE MD Jul 13, 2020 17:02
[2020-07-13] MEDS: dexameTHASONE 4 MG/ML 1ML VIAL (J1100 PER 1MG) IV SCH (18:43)
[2020-07-13] MEDS: PARoxetine 20MG TABLET PO SCH (21:00)
[2020-07-13] MEDS: BENZONATATE 100 MG CAP PO SCH (21:00)
[2020-07-13] MEDS: PANTOPRAZOLE 40MG TAB (PROTONIX) PO SCH (21:00)
[2020-07-13] MEDS: ATORVASTATIN 20 MG TAB PO SCH (21:00)
[2020-07-13] MEDS: CO-ENZYME Q10 50 MG CAP PO SCH (21:00)
[2020-07-13] MEDS: LEVEMIR (INSULIN DETEMIR) 1 UNITS/0.01ML SC SCH (22:12)
[2020-07-14] VITALS (7 sets, daily range): BP systolic 101–136; BP diastolic 51–65; O2SAT 91–100
[2020-07-14] MEDS: HumaLOG INSULIN (NovoLOG) PER UNIT SC SCH ×5 (03:07→21:00)
[2020-07-14] MEDS: LevoFLOXacin 750 MG TABLET PO SCH (06:06)
[2020-07-14] MEDS: LEVOTHYROXINE 125MCG TABLET (0.125MG) PO SCH (06:06)
[2020-07-14 07:21] LABS: BASO % 0.1 % (0.0-1.0); HEMATOCRIT 40.1 % (42.0-52.0); LYMPH # 0.7 10^3/uL (1.5-5.0); LYMPH % 7.2 % (24.0-44.0); MEAN CORPUSCULAR HEMOGLOBIN 29.3 pg (27.0-33.0); MEAN CORPUSCULAR HGB CONC 32.4 g/dl (32.0-36.5); MEAN CORPUSCULAR VOLUME 90.3 fl (80.0-96.0); MONO # 0.3 10^3/uL (0.0-0.8); MONO % 3.6 % (0.0-5.0); NEUTROPHILS # 8.3 10^3/uL (1.5-8.5); NEUTROPHILS % 88.7 % (36.0-66.0); PLATELET COUNT, AUTOMATED 208 10^3/uL (150-450); RED BLOOD COUNT 4.44 10^6/uL (4.30-6.10); WHITE BLOOD COUNT 9.3 10^3/uL (4.0-10.0)
[2020-07-14 07:53] LABS: INR 1.1; PROTHROMBIN TIME 14.4 SECONDS (12.5-14.3)
[2020-07-14 07:54] LABS: PARTIAL THROMBOPLASTIN TIME 34.9 SECONDS (24.2-38.5)
[2020-07-14 07:57] LABS: ALT/SGPT 36 U/L (12-78); BILIRUBIN,DIRECT 0.2 MG/DL (0.0-0.2); BILIRUBIN,TOTAL 0.8 MG/DL (0.2-1.0); BLOOD UREA NITROGEN 18 MG/DL (7-18); CALCIUM LEVEL 8.4 MG/DL (8.5-10.1); CARBON DIOXIDE LEVEL 28 MEQ/L (21-32); CHLORIDE LEVEL 101 MEQ/L (98-107); CREATININE FOR GFR 1.06 MG/DL (0.70-1.30); D-DIMER QUANT 300.93 ng/ml (<500); FERRITIN 660 NG/ML (26-388); GLOMERULAR FILTRATION RATE > 60.0 (>56); GLUCOSE, FASTING 205 MG/DL (70-100); LDH LACTATE DEHYDROGENASE 238 U/L (87-241); MAGNESIUM LEVEL 2.1 MG/DL (1.8-2.4); NT-PRO BNP 224 PG/ML (<125); POTASSIUM SERUM 4.2 MEQ/L (3.5-5.1); SODIUM LEVEL 135 MEQ/L (136-145); TOTAL PROTEIN 6.5 GM/DL (6.4-8.2); TRIGLYCERIDES LEVEL 82 MG/DL (<150); TROPONIN I < 0.02 NG/ML (< 0.10)
[2020-07-14] MEDS: dexameTHASONE 4 MG/ML 1ML VIAL (J1100 PER 1MG) IV SCH (08:41)
[2020-07-14] MEDS: ENOXAPARIN 40MG/0.4ML SYRINGE (J1650 PER 10MG) SC SCH (08:42)
[2020-07-14] MEDS: LEVEMIR (INSULIN DETEMIR) 1 UNITS/0.01ML SC SCH ×2 (08:42→21:00)
[2020-07-14] MEDS: CO-ENZYME Q10 50 MG CAP PO SCH ×2 (08:43→22:10)
[2020-07-14] MEDS: ASPIRIN 81 MG CHEW TABLET PO SCH (08:43)
[2020-07-14] MEDS: VITAMIN D 1,000 INTERNATIONAL UNITS TABLET PO SCH (08:43)
[2020-07-14] MEDS: LOSARTAN 50MG TABLET PO SCH (08:43)
[2020-07-14] MEDS: BENZONATATE 100 MG CAP PO SCH ×3 (08:43→22:09)
[2020-07-14] MEDS: LACTOBACILLUS ACIDOPHILUS CAP (BACID) PO SCH (08:43)
[2020-07-14] MEDS: CETIRIZINE (ZyrTEC) 10 MG TAB PO SCH (08:43)
--- NOTE | 2020-07-14 14:31 | IPNPDOC ---
Text Note Date of Service The patient was seen on 07/14/20. NOTE SUBJECTIVE: -No acute events, now on 4L NC -continues to have a cough PHYSICAL EXAMINATION: VITAL SIGNS: HDS, afebrile, on 4L NC GENERAL APPEARANCE: Ill appearing, appears uncomfortable HEENT: NCAT, EOMI, MMM CARDIOVASCULAR: RRR, no m/r/g LUNGS: Good air movement, no wheezing or crackles at this time. coughing while we speak with some mild distress. Nasal canula in place. ABDOMEN: Obese, soft, normoactive sounds, NTND EXTREMITIES: WWP, no LE edema NEUROLOGICAL: AOx3, CN 3-12 intact, speech clear, moving all extremities PSYCHIATRIC: AOx3 LABORATORY DATA: reviewed CRP now uptrending at 10.9 proBNP 224 ferritin 660 CBC and BMP wnl IMAGIN07/13/2020 CXR FINDINGS: The lungs are exposed at a somewhat lesser level of inspiration. There is an infiltrate in the left base which appears more extensive than on the study done 2 days prior. Increased markings are felt to be present above the minor fissure in the right upper lobe today and a subtle interstitial infiltrate in the right upper lobe is suspected. Monitoring electrodes and oxygen delivery tubing are seen.. IMPRESSION: Relatively low level of inspiration. Increased infiltrate left base. Question new infiltrate right upper lobe.. MICROBIOLOGY: Please see below. ASSESSMENT: 59 yo M with a history of IDDM, coronary artery diseases, hyperlipidemia, cardiac stent placement in 2017, hypothyroidism who developed respiratory symptoms and diarrhea on 06/29, was diagnosed with C.diff infection on 07/03 and finally diagnosed with covid-19 on 07/04 who was admitted at [facility] 07/11 - 07/12 for mild covid-19 infection and abdominal pain and epididymitis and was discharged home but now returns with worsening dyspnea and found to have new hypoxemic respiratory failure with imaging c/w worsening covid-19 PNA. Covid-19 PNA: LLL infiltrates with negative procalcitonin with mild exertional hypoxemia -trend covid labs including procal -continue PO levaquin that will also cover recent epididymitis -sputum culture -incentive spiromtery -tessalon perls for cough -albuterol inh PRN -q4H pulse ox -droplet precautions -will give lovenox at 40 QD given Ddimer in 300s -supplemental O2 -dex 6mg daily, no remdesevir given out of the window for proven potential benefit. Recent C.diff infection c/b loperamide usage: resolved. -Recent CT A/P wnl Recent diagnosis of epididymitis: -UA was bland -f/u GC/CT testing was negative -empiric levaquin, on levaquin day 3 of 7 IDDM: -levemir for lantus long acting insulin -SSI AC/HS -hypoglycemia protocol -FSBG AC/HS -hold trulicity CAD: -c/w ASA/lipitor -PRN SLN Depression: -c/w paxil HTN -continue ARB DVT ppx: lovenox 40 QD Dispo: med/surg, covid floor VS,Fishbone, I+O VS, Fishbone, I+O Laboratory Tests 07/13/20 13:35 07/14/20 06:48 Vital Signs Date Time Temp Pulse Resp B/P (MAP) Pulse Ox O2 Delivery O2 Flow Rate FiO2 07/14/20 08:43 136/65 07/14/20 06:04 100.0 70 18 94 Nasal Cannula 4.0 07/14/20 00:16 40 STEFF UGALDE MD Jul 14, 2020 10:18
[2020-07-14 18:15] LABS: TROPONIN I < 0.02 NG/ML (< 0.10)
--- NOTE | 2020-07-14 21:28 | ECGEPIP ---
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
[2020-07-14] MEDS: ATORVASTATIN 20 MG TAB PO SCH (22:10)
[2020-07-14] MEDS: PANTOPRAZOLE 40MG TAB (PROTONIX) PO SCH (22:10)
[2020-07-14] MEDS: PARoxetine 20MG TABLET PO SCH (22:10)
[2020-07-15] MEDS: LEVOTHYROXINE 125MCG TABLET (0.125MG) PO SCH (06:56)
[2020-07-15] MEDS: LevoFLOXacin 750 MG TABLET PO SCH (06:56)
[2020-07-15 06:57] VITALS: BP 114/60
[2020-07-15] MEDS: HumaLOG INSULIN (NovoLOG) PER UNIT SC SCH ×4 (07:30→22:41)
[2020-07-15 08:00] VITALS: BP 101/55
[2020-07-15] MEDS: LEVEMIR (INSULIN DETEMIR) 1 UNITS/0.01ML SC SCH ×2 (09:00→22:40)
[2020-07-15] MEDS: LOSARTAN 50MG TABLET PO SCH (09:00)
[2020-07-15] MEDS: BENZONATATE 100 MG CAP PO SCH ×3 (09:21→22:39)
[2020-07-15] MEDS: ENOXAPARIN 40MG/0.4ML SYRINGE (J1650 PER 10MG) SC SCH (09:21)
[2020-07-15] MEDS: dexameTHASONE 4 MG/ML 1ML VIAL (J1100 PER 1MG) IV SCH (09:21)
[2020-07-15] MEDS: CO-ENZYME Q10 50 MG CAP PO SCH ×2 (09:22→22:35)
[2020-07-15] MEDS: ACETAMINOPHEN TAB 650MG DOSE (2X325MG) PO PRN (09:22)
[2020-07-15] MEDS: LACTOBACILLUS ACIDOPHILUS CAP (BACID) PO SCH (09:22)
[2020-07-15] MEDS: ASPIRIN 81 MG CHEW TABLET PO SCH (09:22)
[2020-07-15] MEDS: VITAMIN D 1,000 INTERNATIONAL UNITS TABLET PO SCH (09:23)
[2020-07-15] MEDS: CETIRIZINE (ZyrTEC) 10 MG TAB PO SCH (09:24)
[2020-07-15] MEDS ORDERED: LEVEMIR (INSULIN DETEMIR) 1 UNITS/0.01ML SC ONE (09:30)
[2020-07-15 11:17] LABS: BASO % 0.1 % (0.0-1.0); HEMATOCRIT 38.4 % (42.0-52.0); HEMOGLOBIN 12.6 g/dl (13.5-17.5); LYMPH # 0.7 10^3/uL (1.5-5.0); LYMPH % 6.1 % (24.0-44.0); MEAN CORPUSCULAR HEMOGLOBIN 29.4 pg (27.0-33.0); MEAN CORPUSCULAR HGB CONC 32.8 g/dl (32.0-36.5); MEAN CORPUSCULAR VOLUME 89.7 fl (80.0-96.0); MONO # 0.4 10^3/uL (0.0-0.8); MONO % 3.3 % (0.0-5.0); NEUTROPHILS # 10.8 10^3/uL (1.5-8.5); PLATELET COUNT, AUTOMATED 223 10^3/uL (150-450); RED BLOOD COUNT 4.28 10^6/uL (4.30-6.10)
[2020-07-15 11:53] LABS: ALBUMIN 2.8 GM/DL (3.2-5.2); ALT/SGPT 43 U/L (12-78); BILIRUBIN,DIRECT 0.2 MG/DL (0.0-0.2); BILIRUBIN,TOTAL 0.8 MG/DL (0.2-1.0); BLOOD UREA NITROGEN 30 MG/DL (7-18); CALCIUM LEVEL 8.3 MG/DL (8.5-10.1); CARBON DIOXIDE LEVEL 26 MEQ/L (21-32); CHLORIDE LEVEL 107 MEQ/L (98-107); CREATININE FOR GFR 1.12 MG/DL (0.70-1.30); FERRITIN 1063 NG/ML (26-388); GLOMERULAR FILTRATION RATE > 60.0 (>56); GLUCOSE, FASTING 90 MG/DL (70-100); MAGNESIUM LEVEL 2.3 MG/DL (1.8-2.4); SODIUM LEVEL 140 MEQ/L (136-145); TOTAL PROTEIN 5.9 GM/DL (6.4-8.2); TROPONIN I < 0.02 NG/ML (< 0.10)
[2020-07-15 12:17] LABS: D-DIMER QUANT 271.34 ng/ml (<500)
[2020-07-15 13:11] VITALS: BP 110/57
--- NOTE | 2020-07-15 14:55 | IPNPDOC ---
Text Note Date of Service The patient was seen on 07/15/20. NOTE SUBJECTIVE: -No acute events, now on 6L NC -continues to have a cough PHYSICAL EXAMINATION: VITAL SIGNS: HDS, afebrile, on 4L NC GENERAL APPEARANCE: Ill appearing, NAD HEENT: NCAT, EOMI, MMM CARDIOVASCULAR: RRR, no m/r/g LUNGS: More diminished today, no wheezing or crackles at this time. Nasal canula in place. ABDOMEN: Obese, soft, normoactive sounds, NTND EXTREMITIES: WWP, no LE edema NEUROLOGICAL: AOx3, CN 3-12 intact, speech clear, moving all extremities PSYCHIATRIC: AOx3 LABORATORY DATA: reviewed IMAGIN07/13/2020 CXR FINDINGS: The lungs are exposed at a somewhat lesser level of inspiration. There is an infiltrate in the left base which appears more extensive than on the study done 2 days prior. Increased markings are felt to be present above the minor fissure in the right upper lobe today and a subtle interstitial infiltrate in the right upper lobe is suspected. Monitoring electrodes and oxygen delivery tubing are seen.. IMPRESSION: Relatively low level of inspiration. Increased infiltrate left base. Question new infiltrate right upper lobe.. MICROBIOLOGY: Please see below. ASSESSMENT: 59 yo M with a history of IDDM, coronary artery diseases, hyperlipidemia, cardiac stent placement in 2017, hypothyroidism who developed respiratory symptoms and diarrhea on 06/29, was diagnosed with C.diff infection on 07/03 and finally diagnosed with covid-19 on 07/04 who was admitted at [facility] 07/11 - 07/12 for mild covid-19 infection and abdominal pain and epididymitis and was discharged home but now returns with worsening dyspnea and found to have new hypoxemic respiratory failure with imaging c/w worsening covid-19 PNA. Covid-19 PNA: LLL infiltrates with negative procalcitonin with mild exertional hypoxemia -trend covid labs including procal -continue PO levaquin that will also cover recent epididymitis to completion -sputum culture -incentive spiromtery -tessalon perls for cough -albuterol inh PRN -q4H pulse ox -droplet precautions -lovenox at 40 QD given Ddimer wnl -supplemental O2 -dex 6mg daily, no remdesevir given out of the window for proven potential benefit. Recent C.diff infection c/b loperamide usage: resolved. -Recent CT A/P wnl Recent diagnosis of epididymitis: -UA was bland -f/u GC/CT testing was negative -empiric levaquin, on levaquin day 4 of 7 IDDM: -levemir for lantus long acting insulin -SSI AC/HS -hypoglycemia protocol -FSBG AC/HS -hold trulicity CAD: -c/w ASA/lipitor -PRN SLN Depression: -c/w paxil HTN -continue ARB DVT ppx: lovenox 40 QD Dispo: med/surg, covid floor VS,Fishbone, I+O VS, Fishbone, I+O Vital Signs Date Time Temp Pulse Resp B/P (MAP) Pulse Ox O2 Delivery O2 Flow Rate FiO2 07/15/20 06:57 97.3 84 20 114/60 (78) 95 NIPPV (BIPAP/CPAP) 5.0 07/14/20 00:16 40 I&O- Last 24 Hours up to 6 AM 07/15/20 06:00 Intake Total 660 ml Output Total 950 ml Balance -290 ml STEFF UGALDE MD Jul 15, 2020 08:59
[2020-07-15 16:00] VITALS: BP 110/57
[2020-07-15 20:00] VITALS: O2SAT 92
[2020-07-15 22:00] VITALS: BP 122/61
[2020-07-15] MEDS: ATORVASTATIN 20 MG TAB PO SCH (22:36)
[2020-07-15] MEDS: PARoxetine 20MG TABLET PO SCH (22:39)
[2020-07-15] MEDS: PANTOPRAZOLE 40MG TAB (PROTONIX) PO SCH (22:39)
[2020-07-16] VITALS: O2SAT 91
[2020-07-16 04:00] VITALS: O2SAT 91
[2020-07-16 06:00] VITALS: BP 107/54
[2020-07-16] MEDS: LEVOTHYROXINE 125MCG TABLET (0.125MG) PO SCH (06:02)
[2020-07-16] MEDS: LevoFLOXacin 750 MG TABLET PO SCH (06:02)
[2020-07-16 07:54] LABS: BASO % 0.1 % (0.0-1.0); HEMATOCRIT 40.9 % (42.0-52.0); HEMOGLOBIN 12.9 g/dl (13.5-17.5); LYMPH # 0.6 10^3/uL (1.5-5.0); LYMPH % 5.8 % (24.0-44.0); MEAN CORPUSCULAR HEMOGLOBIN 29.7 pg (27.0-33.0); MEAN CORPUSCULAR HGB CONC 31.5 g/dl (32.0-36.5); MEAN CORPUSCULAR VOLUME 94.2 fl (80.0-96.0); MONO # 0.5 10^3/uL (0.0-0.8); MONO % 4.4 % (0.0-5.0); NEUTROPHILS # 9.3 10^3/uL (1.5-8.5); NEUTROPHILS % 89.3 % (36.0-66.0); PLATELET COUNT, AUTOMATED 229 10^3/uL (150-450); RED BLOOD COUNT 4.34 10^6/uL (4.30-6.10); WHITE BLOOD COUNT 10.4 10^3/uL (4.0-10.0)
[2020-07-16 08:50] LABS: ALBUMIN 2.6 GM/DL (3.2-5.2); ALT/SGPT 93 U/L (12-78); BILIRUBIN,DIRECT 0.2 MG/DL (0.0-0.2); BILIRUBIN,TOTAL 0.8 MG/DL (0.2-1.0); BLOOD UREA NITROGEN 32 MG/DL (7-18); CALCIUM LEVEL 8.2 MG/DL (8.5-10.1); CARBON DIOXIDE LEVEL 25 MEQ/L (21-32); CHLORIDE LEVEL 108 MEQ/L (98-107); CREATININE FOR GFR 0.97 MG/DL (0.70-1.30); FERRITIN 1451 NG/ML (26-388); GLOMERULAR FILTRATION RATE > 60.0 (>56); GLUCOSE, FASTING 215 MG/DL (70-100); MAGNESIUM LEVEL 2.3 MG/DL (1.8-2.4); POTASSIUM SERUM 4.8 MEQ/L (3.5-5.1); SODIUM LEVEL 141 MEQ/L (136-145); TOTAL PROTEIN 5.9 GM/DL (6.4-8.2)
[2020-07-16] MEDS ORDERED: dexameTHASONE 20MG/5ML VIAL (J1100 PER 1MG) IV SCH ×2 (09:00→13:00)
[2020-07-16] MEDS: LOSARTAN 50MG TABLET PO SCH (09:00)
[2020-07-16] MEDS: HumaLOG INSULIN (NovoLOG) PER UNIT SC SCH ×4 (09:35→22:33)
[2020-07-16] MEDS: LEVEMIR (INSULIN DETEMIR) 1 UNITS/0.01ML SC SCH ×2 (09:36→22:32)
[2020-07-16] MEDS: CETIRIZINE (ZyrTEC) 10 MG TAB PO SCH (09:36)
[2020-07-16] MEDS: LACTOBACILLUS ACIDOPHILUS CAP (BACID) PO SCH (09:36)
[2020-07-16] MEDS: CO-ENZYME Q10 50 MG CAP PO SCH ×2 (09:36→22:31)
[2020-07-16] MEDS: VITAMIN D 1,000 INTERNATIONAL UNITS TABLET PO SCH (09:37)
[2020-07-16] MEDS: ASPIRIN 81 MG CHEW TABLET PO SCH (09:37)
[2020-07-16] MEDS: BENZONATATE 100 MG CAP PO SCH ×3 (09:37→22:31)
[2020-07-16] MEDS: ENOXAPARIN 40MG/0.4ML SYRINGE (J1650 PER 10MG) SC SCH (09:38)
[2020-07-16 10:10] LABS: FIBRINOGEN 882 MG/DL (221-452)
[2020-07-16 10:57] LABS: D-DIMER QUANT < 270 ng/ml (<500)
--- NOTE | 2020-07-16 15:40 | IPNPDOC ---
Text Note Date of Service The patient was seen on 07/16/20. NOTE SUBJECTIVE: -No acute events -requiring 5L -continues to have a cough PHYSICAL EXAMINATION: VITAL SIGNS: HDS, afebrile, on 5L NC GENERAL APPEARANCE: Ill appearing, NAD HEENT: NCAT, EOMI, MMM CARDIOVASCULAR: RRR, no m/r/g LUNGS: Diminished today, no wheezing or crackles at this time. Nasal canula in place. ABDOMEN: Obese, soft, normoactive sounds, NTND EXTREMITIES: WWP, no LE edema NEUROLOGICAL: AOx3, CN 3-12 intact, speech clear, moving all extremities PSYCHIATRIC: AOx3 LABORATORY DATA: reviewed IMAGIN07/13/2020 CXR FINDINGS: The lungs are exposed at a somewhat lesser level of inspiration. There is an infiltrate in the left base which appears more extensive than on the study done 2 days prior. Increased markings are felt to be present above the minor fissure in the right upper lobe today and a subtle interstitial infiltrate in the right upper lobe is suspected. Monitoring electrodes and oxygen delivery tubing are seen.. IMPRESSION: Relatively low level of inspiration. Increased infiltrate left base. Question new infiltrate right upper lobe.. MICROBIOLOGY: Please see below. ASSESSMENT: 59 yo M with a history of IDDM, coronary artery diseases, hyperlipidemia, cardiac stent placement in 2017, hypothyroidism who developed respiratory symptoms and diarrhea on 06/29, was diagnosed with C.diff infection on 07/03 and finally diagnosed with covid-19 on 07/04 who was admitted at [facility] 07/11 - 07/12 for mild covid-19 infection and abdominal pain and epididymitis and was discharged home but now returns with worsening dyspnea and found to have new hypoxemic respiratory failure with imaging c/w worsening covid-19 PNA. Covid-19 PNA: LLL infiltrates with negative procalcitonin with mild exertional hypoxemia -trend covid labs -continue PO levaquin that will also cover recent epididymitis to completion -incentive spiromtery -tessalon perls for cough -albuterol inh PRN -q4H pulse ox -droplet precautions -lovenox at 40 QD given Ddimer wnl -supplemental O2 -Day #3 of dex 6mg daily, no remdesevir given out of the window for proven potential benefit. Recent C.diff infection c/b loperamide usage: resolved. -Recent CT A/P wnl Recent diagnosis of epididymitis: -UA was bland -f/u GC/CT testing was negative -empiric levaquin, on levaquin day 5 of 7 IDDM: -levemir for lantus long acting insulin -SSI AC/HS -hypoglycemia protocol -FSBG AC/HS -hold trulicity CAD: -c/w ASA/lipitor -PRN SLN Depression: -c/w paxil HTN -continue ARB DVT ppx: lovenox 40 QD Dispo: med/surg, covid floor VS,Fishbone, I+O VS, Fishbone, I+O Laboratory Tests 07/15/20 10:25 07/15/20 10:55 07/16/20 07:34 Vital Signs Date Time Temp Pulse Resp B/P (MAP) Pulse Ox O2 Delivery O2 Flow Rate FiO2 07/16/20 06:00 98.9 66 20 107/54 (71) 91 NIPPV (BIPAP/CPAP) 5.0 07/14/20 00:16 40 I&O- Last 24 Hours up to 6 AM 07/16/20 05:59 Intake Total 1220 ml Output Total 1100 ml Balance 120 ml STEFF UGALDE MD Jul 16, 2020 08:45
[2020-07-16 20:00] VITALS: O2SAT 91
[2020-07-16 22:00] VITALS: BP 120/61
[2020-07-16] MEDS: PARoxetine 20MG TABLET PO SCH (22:30)
[2020-07-16] MEDS: ATORVASTATIN 20 MG TAB PO SCH (22:31)
[2020-07-16] MEDS: PANTOPRAZOLE 40MG TAB (PROTONIX) PO SCH (22:31)
[2020-07-17] VITALS: O2SAT 91
[2020-07-17 04:00] VITALS: BP 115/56; O2SAT 93
[2020-07-17] MEDS: LevoFLOXacin 750 MG TABLET PO SCH (06:08)
[2020-07-17] MEDS: LEVOTHYROXINE 125MCG TABLET (0.125MG) PO SCH (06:08)
[2020-07-17 08:00] VITALS: O2SAT 94
[2020-07-17] MEDS: LOSARTAN 50MG TABLET PO SCH (09:00)
[2020-07-17] MEDS: LEVEMIR (INSULIN DETEMIR) 1 UNITS/0.01ML SC SCH ×2 (09:13→22:32)
[2020-07-17] MEDS: HumaLOG INSULIN (NovoLOG) PER UNIT SC SCH ×4 (09:14→22:00)
[2020-07-17] MEDS: ASPIRIN 81 MG CHEW TABLET PO SCH (09:14)
[2020-07-17] MEDS: LACTOBACILLUS ACIDOPHILUS CAP (BACID) PO SCH (09:14)
[2020-07-17] MEDS: CO-ENZYME Q10 50 MG CAP PO SCH ×2 (09:17→22:31)
[2020-07-17] MEDS: BENZONATATE 100 MG CAP PO SCH ×3 (09:17→22:31)
[2020-07-17] MEDS: CETIRIZINE (ZyrTEC) 10 MG TAB PO SCH (09:17)
[2020-07-17] MEDS: VITAMIN D 1,000 INTERNATIONAL UNITS TABLET PO SCH (09:17)
[2020-07-17 10:47] LABS: BASO % 0.2 % (0.0-1.0); EOS % 0.1 % (0.0-3.0); HEMATOCRIT 40.5 % (42.0-52.0); HEMOGLOBIN 13.3 g/dl (13.5-17.5); LYMPH # 0.8 10^3/uL (1.5-5.0); MEAN CORPUSCULAR HEMOGLOBIN 29.6 pg (27.0-33.0); MEAN CORPUSCULAR HGB CONC 32.8 g/dl (32.0-36.5); MEAN CORPUSCULAR VOLUME 90.2 fl (80.0-96.0); MONO # 0.5 10^3/uL (0.0-0.8); MONO % 5.9 % (0.0-5.0); NEUTROPHILS # 6.8 10^3/uL (1.5-8.5); NEUTROPHILS % 83.1 % (36.0-66.0); PLATELET COUNT, AUTOMATED 266 10^3/uL (150-450); RED BLOOD COUNT 4.49 10^6/uL (4.30-6.10); WHITE BLOOD COUNT 8.2 10^3/uL (4.0-10.0)
[2020-07-17 11:21] LABS: D-DIMER QUANT 275.58 ng/ml (<500)
[2020-07-17 11:22] LABS: ALBUMIN 2.8 GM/DL (3.2-5.2); ALT/SGPT 229 U/L (12-78); BILIRUBIN,DIRECT 0.2 MG/DL (0.0-0.2); BILIRUBIN,TOTAL 0.7 MG/DL (0.2-1.0); BLOOD UREA NITROGEN 32 MG/DL (7-18); C REACTIVE PROTEIN QUANTITATIV 5.04 MG/DL (0.00-0.30); CALCIUM LEVEL 8.7 MG/DL (8.5-10.1); CARBON DIOXIDE LEVEL 27 MEQ/L (21-32); CHLORIDE LEVEL 106 MEQ/L (98-107); CREATININE FOR GFR 0.95 MG/DL (0.70-1.30); FERRITIN 1889 NG/ML (26-388); GLOMERULAR FILTRATION RATE > 60.0 (>56); GLUCOSE, FASTING 239 MG/DL (70-100); MAGNESIUM LEVEL 2.2 MG/DL (1.8-2.4); POTASSIUM SERUM 3.8 MEQ/L (3.5-5.1); SODIUM LEVEL 139 MEQ/L (136-145); TOTAL PROTEIN 6.8 GM/DL (6.4-8.2)
[2020-07-17 12:00] VITALS: BP 118/57; O2SAT 93
[2020-07-17] MEDS: ENOXAPARIN 40MG/0.4ML SYRINGE (J1650 PER 10MG) SC SCH (12:38)
--- NOTE | 2020-07-17 17:21 | IPNPDOC ---
Date Seen The patient was seen on 07/17/20. Progress Note SUBJECTIVE: Mr. Reyna was seen and examined at the bedside this morning sitting up using his BiPaP. Later in the day he was transitioned to nasal cannula oxygen requiring only 4 L. He complains of R shoulder pain which he attributes to his proning. Otherwise he states he feels better than days prior. He denies any worsening shortness of breath, no cough, no nausea no vomiting and no abdominal pain. He denies any diarrhea. Overall he feels he is improving. OBJECTIVE PHYSICAL EXAMINATION: VITAL SIGNS: see below GENERAL: Sitting up in bed, alert and oriented, in no apparent distress, co nversant in full sentences. HEENT: PERRL, EOMI, Oral mucous membranes are moist without lesions. NECK: The patient has no noted JVD. No adenopathy is appreciated. No thyromegaly CHEST/LUNGS: There are decreased breath sounds bilaterally with some scattered wheezing in all lung guillaume. Chest rise is symmetrical HEART:Regular rate and rhythm. No murmurs, rubs, or gallops are appreciated. Distal pulses are 2+. No carotid bruits appreciated. ABDOMEN: Soft, nontender, and nondistended. Bowel sounds are positive. No organomegaly is appreciated. No masses are appreciated. There are no peritoneal signs. There is no [place] sign. EXTREMITIES: No peripheral edema. There is no focal long bone tenderness or deformity. SKIN: The patients skin is warm and dry, without rashes or lesions. PSYCHIATRIC: AAO x 3, normal mood/affect NEUROLOGIC: The patient has 5/5 strength to the upper and lower extremities bilaterally. Sensation is intact throughout. Deep tendon reflexes are 2+ in all four extremities. There are no deficits to the cranial nerves. LABORATORY DATA, IMAGING STUDIES, MICROBIOLOGY: Please see below. Echocardiogram: None ASSESSMENT AND PLAN: This is a 59-year-old man with history of type 2 diabetes, CAD, hypothyroidism who first developed respiratory symptoms on 06/29/2020, was diagnosed with C. difficile infection on 07/03/2020 and finally diagnosed with Covid 19 pneumonia on 07/04/2020. He was admitted to [facility] 07/11/2020 until 07/12/2020 found to have mild abdominal pain and epididymitis for which he is currently on antibiotics. On this hospitalization he was found to have new hypoxemic respiratory failure and is admitted to the Covid floor on BiPAP. PROBLEMS: 1. Acute hypoxemic respiratory failure secondary to Covid 19 pneumonia: -Inflammatory markers: Ferritin decreased to 1249, liver enzymes improving, CRP stable at 3.37, pro calcitonin for today pending. D-dimer normalized to 326. -Tessalon Perles as needed for cough -Albuterol as needed for shortness of breath -Continue dexamethasone, day #5 2. Recent C. difficile infection: -Resolved. CT abdomen and pelvis on admission WNL -Continue Bacid 3. Recent diagnosis of epididymitis: -Completed 7 day course of Levaquin 4. Type 2 diabetes mellitus, on insulin: -Patient was hypoglycemic this morning, Levemir dose switch to 30 units twice a day -Sliding-scale insulin with hypoglycemic protocol -FS BS before meals/at bedtime -Holding home Trulicity 5. History of CAD status post cardiac stent placement in 2017: -Continue home aspirin, Lipitor 6. Mood disorder: Continue Paxil 7. Hypothyroidism: -TSH elevated at 11.6 likely due to acute infection. T4 was within normal limits -Continue Levothyroxine 125mcg daily 8. HTN: -Continue Losartan DVT prophylaxis ordered?: Lovenox 40 mg every 12 hours GI PPx: Protonix DISPOSITION: Pending improvement in oxygenation VS, I&O, 24H, [facility] Vital Signs/I&O Vital Signs Date Time Temp Pulse Resp B/P (MAP) Pulse Ox O2 Delivery O2 Flow Rate FiO2 07/17/20 15:22 NIPPV (BIPAP/CPAP) 07/17/20 12:00 97.0 66 20 118/57 (77) 98 4.0 07/14/20 00:16 40 I&O- Last 24 Hours up to 6 AM 07/17/20 06:00 Intake Total 0 ml Output Total 1050 ml Balance -1050 ml Laboratory Data 24H LABS Laboratory Tests 2 07/16/20 18:38: D-Dimer, Quantitative < 270, C-Reactive Protein, Quantitative 7.64H 07/16/20 22:29: Bedside Glucose (Misc Panel) 327H 07/17/20 09:56: D-Dimer, Quantitative 275.58, C-Reactive Protein, Quantitative 5.04H, Immature Granulocyte % (Auto) 0.7, Neutrophils (%) (Auto) 83.1H, Lymphocytes (%) (Auto) 10.0L, Monocytes (%) (Auto) 5.9H, Eosinophils (%) (Auto) 0.1, Basophils (%) (Auto) 0.2, Neutrophils # (Auto) 6.8, Lymphocytes # (Auto) 0.8L, Monocytes # (Auto) 0.5, Eosinophils # (Auto) 0.0, Basophils # (Auto) 0.0, Nucleated Red Blood Cells % (auto) 0.0, Fibrinogen 722H, Anion Gap 6L, Glomerular Filtration Rate > 60.0, Calcium Level 8.7, Magnesium Level 2.2, Ferritin 1889H, Total Bilirubin 0.7, Direct Bilirubin 0.2, Aspartate Amino Transf (AST/SGOT) 116H, Alanine Aminotransferase (ALT/SGPT) 229H, Alkaline Phosphatase 133H, Total Protein 6.8, Albumin 2.8L, Albumin/Globulin Ratio 0.7 CBC/BMP Laboratory Tests 07/17/20 09:56 Microbiology Microbiology 07/13/20 Blood Culture - Preliminary, Resulted No Growth after 72 hours. All specime... 07/13/20 Blood Culture - Preliminary, Resulted No Growth after 72 hours. All specime... 07/13/20 Blood Culture - Preliminary, Resulted No Growth after 72 hours. All specime... 07/13/20 Respiratory Virus Panel (PCR) ([facility]) - Final, Complete SARS-CoV-2 (COVID 19) 07/13/20 Blood Culture - Preliminary, Resulted No Growth after 72 hours. All specime... GME ATTESTATION GME ATTESTATION My faculty preceptor for this patient encounter was physically present during the encounter and was fully available. All aspects of the patient interview, examination, medical decision making process, and medical care plan development were reviewed and approved by the faculty preceptor. The faculty preceptor is a gao and concurs with the plan as stated in the body of this note and will attest to such by his/her cosignature. SONAM YUN MD Jul 17, 2020 17:11
[2020-07-17 20:00] VITALS: O2SAT 93
[2020-07-17 22:00] VITALS: BP 144/62
[2020-07-17] MEDS: PARoxetine 20MG TABLET PO SCH (22:31)
[2020-07-17] MEDS: ATORVASTATIN 20 MG TAB PO SCH (22:31)
[2020-07-17] MEDS: PANTOPRAZOLE 40MG TAB (PROTONIX) PO SCH (22:31)
[2020-07-18] VITALS: O2SAT 93
[2020-07-18 04:34] VITALS: O2SAT 92
[2020-07-18 05:35] VITALS: BP 102/51
[2020-07-18] MEDS: LEVOTHYROXINE 125MCG TABLET (0.125MG) PO SCH (06:03)
[2020-07-18] MEDS: ACETAMINOPHEN TAB 650MG DOSE (2X325MG) PO PRN ×2 (06:19→23:01)
[2020-07-18] MEDS: HumaLOG INSULIN (NovoLOG) PER UNIT SC SCH ×4 (07:30→23:02)
[2020-07-18 09:37] LABS: BASO % 0.1 % (0.0-1.0); EOS # 0.1 10^3/uL (0.0-0.5); EOS % 0.5 % (0.0-3.0); HEMATOCRIT 40.2 % (42.0-52.0); HEMOGLOBIN 13.5 g/dl (13.5-17.5); LYMPH # 1.4 10^3/uL (1.5-5.0); LYMPH % 14.1 % (24.0-44.0); MEAN CORPUSCULAR HEMOGLOBIN 30.3 pg (27.0-33.0); MEAN CORPUSCULAR HGB CONC 33.6 g/dl (32.0-36.5); MEAN CORPUSCULAR VOLUME 90.3 fl (80.0-96.0); MONO # 0.7 10^3/uL (0.0-0.8); MONO % 7.7 % (0.0-5.0); NEUTROPHILS # 7.3 10^3/uL (1.5-8.5); NEUTROPHILS % 76.9 % (36.0-66.0); PLATELET COUNT, AUTOMATED 276 10^3/uL (150-450); RED BLOOD COUNT 4.45 10^6/uL (4.30-6.10); WHITE BLOOD COUNT 9.6 10^3/uL (4.0-10.0)
[2020-07-18 10:08] LABS: D-DIMER QUANT 326.05 ng/ml (<500)
[2020-07-18 10:14] LABS: ALBUMIN 2.7 GM/DL (3.2-5.2); ALT/SGPT 202 U/L (12-78); BILIRUBIN,DIRECT 0.2 MG/DL (0.0-0.2); BILIRUBIN,TOTAL 0.7 MG/DL (0.2-1.0); BLOOD UREA NITROGEN 26 MG/DL (7-18); C REACTIVE PROTEIN QUANTITATIV 3.37 MG/DL (0.00-0.30); CALCIUM LEVEL 8.3 MG/DL (8.5-10.1); CARBON DIOXIDE LEVEL 28 MEQ/L (21-32); CHLORIDE LEVEL 108 MEQ/L (98-107); CREATININE FOR GFR 0.87 MG/DL (0.70-1.30); FERRITIN 1249 NG/ML (26-388); FREE T4 1.24 NG/DL (0.76-1.46); GLOMERULAR FILTRATION RATE > 60.0 (>56); GLUCOSE, FASTING 62 MG/DL (70-100); MAGNESIUM LEVEL 2.1 MG/DL (1.8-2.4); POTASSIUM SERUM 3.7 MEQ/L (3.5-5.1); SODIUM LEVEL 142 MEQ/L (136-145); TOTAL PROTEIN 5.7 GM/DL (6.4-8.2)
[2020-07-18] MEDS: LACTOBACILLUS ACIDOPHILUS CAP (BACID) PO SCH (10:36)
[2020-07-18] MEDS: ASPIRIN 81 MG CHEW TABLET PO SCH (10:36)
[2020-07-18] MEDS: BENZONATATE 100 MG CAP PO SCH ×3 (10:36→23:00)
[2020-07-18] MEDS: CETIRIZINE (ZyrTEC) 10 MG TAB PO SCH (10:36)
[2020-07-18] MEDS: VITAMIN D 1,000 INTERNATIONAL UNITS TABLET PO SCH (10:36)
[2020-07-18] MEDS: dexameTHASONE 20MG/5ML VIAL (J1100 PER 1MG) IV SCH (10:37)
[2020-07-18] MEDS: CO-ENZYME Q10 50 MG CAP PO SCH ×2 (10:37→23:01)
[2020-07-18] MEDS: ENOXAPARIN 40MG/0.4ML SYRINGE (J1650 PER 10MG) SC SCH (10:37)
[2020-07-18] MEDS: LOSARTAN 50MG TABLET PO SCH (10:44)
[2020-07-18] MEDS ORDERED: traMADol 50 MG TAB PO PRN (11:00)
[2020-07-18 12:00] VITALS: BP 114/63
--- NOTE | 2020-07-18 13:29 | IPNPDOC ---
Date Seen The patient was seen on 07/18/20. Progress Note SUBJECTIVE: Mr. Reyna was seen and examined at the bedside this morning sitting up using his BiPaP. Later in the day he was transitioned to nasal cannula oxygen requiring only 4 L. He complains of R shoulder pain which he attributes to his proning. Otherwise he states he feels better than days prior. He denies any worsening shortness of breath, no cough, no nausea no vomiting and no abdominal pain. He denies any diarrhea. Overall he feels he is improving. OBJECTIVE PHYSICAL EXAMINATION: VITAL SIGNS: see below GENERAL: Sitting up in bed, alert and oriented, in no apparent distress, co nversant in full sentences. HEENT: PERRL, EOMI, Oral mucous membranes are moist without lesions. NECK: The patient has no noted JVD. No adenopathy is appreciated. No thyromegaly CHEST/LUNGS: There are decreased breath sounds bilaterally with some scattered wheezing in all lung guillaume. Chest rise is symmetrical HEART:Regular rate and rhythm. No murmurs, rubs, or gallops are appreciated. Distal pulses are 2+. No carotid bruits appreciated. ABDOMEN: Soft, nontender, and nondistended. Bowel sounds are positive. No organomegaly is appreciated. No masses are appreciated. There are no peritoneal signs. There is no [place] sign. EXTREMITIES: No peripheral edema. There is no focal long bone tenderness or deformity. SKIN: The patients skin is warm and dry, without rashes or lesions. PSYCHIATRIC: AAO x 3, normal mood/affect NEUROLOGIC: The patient has 5/5 strength to the upper and lower extremities bilaterally. Sensation is intact throughout. Deep tendon reflexes are 2+ in all four extremities. There are no deficits to the cranial nerves. LABORATORY DATA, IMAGING STUDIES, MICROBIOLOGY: Please see below. Echocardiogram: None ASSESSMENT AND PLAN: This is a 59-year-old man with history of type 2 diabetes, CAD, hypothyroidism who first developed respiratory symptoms on 06/29/2020, was diagnosed with C. difficile infection on 07/03/2020 and finally diagnosed with Covid 19 pneumonia on 07/04/2020. He was admitted to [facility] 07/11/2020 until 07/12/2020 found to have mild abdominal pain and epididymitis for which he is currently on antibiotics. On this hospitalization he was found to have new hypoxemic respiratory failure and is admitted to the Covid floor on BiPAP. PROBLEMS: 1. Acute hypoxemic respiratory failure secondary to COVID19 pneumonia: -Inflammatory markers: Ferritin decreased to 1249, liver enzymes improving, CRP stable at 3.37, pro calcitonin for today pending. D-dimer normalized to 326. -Tessalon Perles as needed for cough -Albuterol as needed for shortness of breath -Continue dexamethasone; day #5 2. Recent C. difficile infection: -Resolved; CT abdomen and pelvis on admission WNL -Continue Bacid 3. Recent diagnosis of epididymitis: -Completed 7 day course of Levaquin 4. Type 2 diabetes mellitus, on insulin: -Patient was hypoglycemic this morning, Levemir dose switch to 30 units twice a day -Sliding-scale insulin with hypoglycemic protocol -FS BS before meals/at bedtime -Holding home Trulicity 5. History of CAD status post cardiac stent placement in 2017: -Continue home aspirin, Lipitor 6. Mood disorder: Continue Paxil 7. Hypothyroidism: -TSH elevated at 11.6 likely due to acute infection. T4 was within normal limits -Continue Levothyroxine 125mcg daily 8. HTN: -Continue Losartan DVT prophylaxis ordered?: Lovenox 40 mg every 12 hours GI PPx: Protonix DISPOSITION: Pending improvement in oxygenation VS, I&O, 24H, Fishbone Vital Signs/I&O Vital Signs Date Time Temp Pulse Resp B/P (MAP) Pulse Ox O2 Delivery O2 Flow Rate FiO2 07/18/20 12:00 98.9 61 19 114/63 (80) 98 Nasal Cannula 4.0 07/14/20 00:16 40 I&O- Last 24 Hours up to 6 AM 07/18/20 06:00 Intake Total 1350 ml Output Total 1500 ml Balance -150 ml Laboratory Data 24H LABS Laboratory Tests 2 07/17/20 17:23: D-Dimer, Quantitative 379.69, C-Reactive Protein, Quantitative 3.49H 07/18/20 05:21: Bedside Glucose (Misc Panel) 63L 07/18/20 09:16: D-Dimer, Quantitative 326.05, C-Reactive Protein, Quantitative 3.37H, Immature Granulocyte % (Auto) 0.7, Neutrophils (%) (Auto) 76.9H, Lymphocytes (%) (Auto) 14.1L, Monocytes (%) (Auto) 7.7H, Eosinophils (%) (Auto) 0.5, Basophils (%) (Aut o) 0.1, Neutrophils # (Auto) 7.3, Lymphocytes # (Auto) 1.4L, Monocytes # (Auto) 0.7, Eosinophils # (Auto) 0.1, Basophils # (Auto) 0.0, Nucleated Red Blood Cells % (auto) 0.0, Fibrinogen 628H, Anion Gap 6L, Glomerular Filtration Rate > 60.0, Calcium Level 8.3L, Magnesium Level 2.1, Ferritin 1249H, Total Bilirubin 0.7, Direct Bilirubin 0.2, Aspartate Amino Transf (AST/SGOT) 57H, Alanine Aminotransferase (ALT/SGPT) 202H, Alkaline Phosphatase 118H, Total Protein 5.7L, Albumin 2.7L, Albumin/Globulin Ratio 0.9, Thyroid Stimulating Hormone (TSH) 11.600H, Free Thyroxine 1.24 07/18/20 10:32: Bedside Glucose (Misc Panel) 97 07/18/20 11:44: Bedside Glucose (Misc Panel) 230H CBC/BMP Laboratory Tests 07/18/20 09:16 Microbiology Microbiology 07/13/20 Blood Culture - Preliminary, Resulted No Growth after 72 hours. All specime... 07/13/20 Blood Culture - Preliminary, Resulted No Growth after 72 hours. All specime... 07/13/20 Blood Culture - Preliminary, Resulted No Growth after 72 hours. All specime... 07/13/20 Respiratory Virus Panel (PCR) ([facility]) - Final, Complete SARS-CoV-2 (COVID 19) 07/13/20 Blood Culture - Preliminary, Resulted No Growth after 72 hours. All specime... GME ATTESTATION GME ATTESTATION My faculty preceptor for this patient encounter was physically present during the encounter and was fully available. All aspects of the patient interview, examination, medical decision making process, and medical care plan development were reviewed and approved by the faculty preceptor. The faculty preceptor is aware and concurs with the plan as stated in the body of this note and will attest to such by his/her cosignature. ATTENDING NOTE I, Cleopatra Blanc, have independently examined this patient and performed my own physical exam, as well as reviewed the documentation and edited where necessary. I have discussed in detail with the resident / student the findings and plan of treatment as documented by the resident / student and edited their note. I agree with their findings and treatment plan and have edited their documentation. I will continue to follow the patient during this hospital stay. SONAM YUN MD Jul 18, 2020 13:29 CLEOPATRA BLANC MD Jul 18, 2020 15:57
[2020-07-18 20:00] VITALS: BP 153/71
[2020-07-18] MEDS: ATORVASTATIN 20 MG TAB PO SCH (23:00)
[2020-07-18] MEDS: PARoxetine 20MG TABLET PO SCH (23:01)
[2020-07-18] MEDS: PANTOPRAZOLE 40MG TAB (PROTONIX) PO SCH (23:01)
[2020-07-18] MEDS: LEVEMIR (INSULIN DETEMIR) 1 UNITS/0.01ML SC SCH (23:02)
[2020-07-19 04:00] VITALS: BP 119/61
[2020-07-19] MEDS: LEVOTHYROXINE 125MCG TABLET (0.125MG) PO SCH (06:21)
[2020-07-19 08:21] LABS: BASO % 0.3 % (0.0-1.0); EOS # 0.1 10^3/uL (0.0-0.5); EOS % 0.8 % (0.0-3.0); HEMATOCRIT 38.6 % (42.0-52.0); HEMOGLOBIN 12.8 g/dl (13.5-17.5); LYMPH # 0.7 10^3/uL (1.5-5.0); LYMPH % 9.6 % (24.0-44.0); MEAN CORPUSCULAR HEMOGLOBIN 29.1 pg (27.0-33.0); MEAN CORPUSCULAR HGB CONC 33.2 g/dl (32.0-36.5); MEAN CORPUSCULAR VOLUME 87.7 fl (80.0-96.0); MONO # 0.5 10^3/uL (0.0-0.8); MONO % 6.2 % (0.0-5.0); NEUTROPHILS # 6.1 10^3/uL (1.5-8.5); NEUTROPHILS % 81.8 % (36.0-66.0); PLATELET COUNT, AUTOMATED 259 10^3/uL (150-450); WHITE BLOOD COUNT 7.5 10^3/uL (4.0-10.0)
[2020-07-19] MEDS: LEVEMIR (INSULIN DETEMIR) 1 UNITS/0.01ML SC SCH (08:42)
[2020-07-19] MEDS: HumaLOG INSULIN (NovoLOG) PER UNIT SC SCH ×3 (08:42→18:31)
[2020-07-19] MEDS: CO-ENZYME Q10 50 MG CAP PO SCH (08:43)
[2020-07-19] MEDS: VITAMIN D 1,000 INTERNATIONAL UNITS TABLET PO SCH (08:43)
[2020-07-19] MEDS: BENZONATATE 100 MG CAP PO SCH ×2 (08:43→16:00)
[2020-07-19] MEDS: dexameTHASONE 20MG/5ML VIAL (J1100 PER 1MG) IV SCH (08:43)
[2020-07-19 08:44] VITALS: BP 119/61
[2020-07-19] MEDS: ENOXAPARIN 40MG/0.4ML SYRINGE (J1650 PER 10MG) SC SCH (08:44)
[2020-07-19] MEDS: CETIRIZINE (ZyrTEC) 10 MG TAB PO SCH (08:44)
[2020-07-19] MEDS: LOSARTAN 50MG TABLET PO SCH (08:44)
[2020-07-19] MEDS: LACTOBACILLUS ACIDOPHILUS CAP (BACID) PO SCH (08:44)
[2020-07-19] MEDS: ASPIRIN 81 MG CHEW TABLET PO SCH (08:45)
[2020-07-19 08:46] LABS: ALBUMIN 2.6 GM/DL (3.2-5.2); ALT/SGPT 236 U/L (12-78); BILIRUBIN,TOTAL 0.8 MG/DL (0.2-1.0); BLOOD UREA NITROGEN 18 MG/DL (7-18); CALCIUM LEVEL 8.4 MG/DL (8.5-10.1); CARBON DIOXIDE LEVEL 28 MEQ/L (21-32); CHLORIDE LEVEL 105 MEQ/L (98-107); CREATININE FOR GFR 0.77 MG/DL (0.70-1.30); FERRITIN 1202 NG/ML (26-388); GLOMERULAR FILTRATION RATE > 60.0 (>56); GLUCOSE, FASTING 216 MG/DL (70-100); LDH LACTATE DEHYDROGENASE 256 U/L (87-241); POTASSIUM SERUM 4.4 MEQ/L (3.5-5.1); SODIUM LEVEL 137 MEQ/L (136-145); TOTAL PROTEIN 5.8 GM/DL (6.4-8.2)
[2020-07-19] MEDS ORDERED: SODIUM CHLORIDE NASAL 0.65% SPRAY BTL (OCEAN) PRN (10:00)
[2020-07-19 12:10] VITALS: BP 127/64
--- NOTE | 2020-07-19 12:15 | REP ---
INDICATION: hypoxia covid+. COMPARISON: 07/13/2020. TECHNIQUE: SINGLE PORTABLE AP VIEW OF THE CHEST WAS PERFORMED. FINDINGS: Diffuse bilateral infiltrates are visualized which have worsened compared to the prior study. Heart mediastinum are unchanged. IMPRESSION: Increased diffuse bilateral infiltrates. <Electronically signed by Massimo Casillas > 07/19/20 1211
--- NOTE | 2020-07-19 14:44 | IPNPDOC ---
Date Seen The patient was seen on 07/19/20. Progress Note SUBJECTIVE: Mr. Reyna was seen and examined at the bedside this morning sitting up using his BiPaP. I asked him to sit up in bed and found that his oxygen dropped to 86- 88% when BiPAP was removed. He denied any shortness of breath at that time. He was transitioned to nasal cannula 5 L and later titrated down to 3 L nasal cannula at 92% saturation. He complains of R shoulder pain which he surmises is from proning on his stomach. The pain is limiting his ability to take deep breaths. He states that Tylenol is not helping his pain. Tramadol had been ordered for him yesterday but had not been given. Otherwise, he has no other complaints. OBJECTIVE PHYSICAL EXAMINATION: VITAL SIGNS: see below GENERAL: Sitting up in bed, alert and oriented, in no apparent distress, conversant in full sentences. HEENT: PERRL, EOMI, Oral mucous membranes are moist without lesions. NECK: The patient has no noted JVD. No adenopathy is appreciated. No thyromegaly CHEST/LUNGS: There are decreased breath sounds bilaterally with some scattered wheezing in all lung guillaume. Chest rise is symmetrical HEART:Regular rate and rhythm. No murmurs, rubs, or gallops are appreciated. Distal pulses are 2+. No carotid bruits appreciated. ABDOMEN: Soft, nontender, and nondistended. Bowel sounds are positive. No o rganomegaly is appreciated. No masses are appreciated. There are no peritoneal signs. There is no [place] sign. EXTREMITIES: No peripheral edema. There is no focal long bone tenderness or deformity. SKIN: The patients skin is warm and dry, without rashes or lesions. PSYCHIATRIC: AAO x 3, normal mood/affect NEUROLOGIC: The patient has 5/5 strength to the upper and lower extremities bilaterally. Sensation is intact throughout. Deep tendon reflexes are 2+ in all four extremities. There are no deficits to the cranial nerves. LABORATORY DATA, IMAGING STUDIES, MICROBIOLOGY: Please see below. Echocardiogram: None ASSESSMENT AND PLAN: This is a 59-year-old man with history of type 2 diabetes, CAD, hypothyroidism who first developed respiratory symptoms on 06/29/2020, was diagnosed with C. difficile infection on 07/03/2020 and finally diagnosed with Covid 19 pneumonia on 07/04/2020. He was admitted to [facility] 07/11/2020 until 07/12/2020 found to have mild abdominal pain and epididymitis for which he is currently on antibiotics. On this hospitalization he was found to have new hypoxemic respiratory failure and is admitted to the Covid floor on BiPAP. PROBLEMS: 1. Acute hypoxemic respiratory failure secondary to COVID19 pneumonia: -Inflammatory markers: Ferritin decreased to 1249, liver enzymes improving, CRP stable at 3.37, pro calcitonin for today pending. D-dimer normalized to 326. -Tessalon Perles as needed for cough -Albuterol as needed for shortness of breath -Continue dexamethasone; day #6 2. Recent C. difficile infection: -Resolved; CT abdomen and pelvis on admission WNL -Continue Bacid 3. Recent diagnosis of epididymitis: -Completed 7 day course of Levaquin 4. Type 2 diabetes mellitus, on insulin: -Patient was hypoglycemic this morning, Levemir dose switch to 30 units twice a day -Sliding-scale insulin with hypoglycemic protocol -FS BS before meals/at bedtime -Holding home Trulicity 5. History of CAD status post cardiac stent placement in 2017: -Continue home aspirin, Lipitor 6. Mood disorder: Continue Paxil 7. Hypothyroidism: -TSH elevated at 11.6 likely due to acute infection. T4 was within normal limits -Continue Levothyroxine 125mcg daily 8. HTN: -Continue Losartan DVT prophylaxis ordered?: Lovenox 40 mg every 12 hours GI PPx: Protonix DISPOSITION: Pending improvement in oxygenation VS, I&O, 24H, Fishbone Vital Signs/I&O Vital Signs Date Time Temp Pulse Resp B/P (MAP) Pulse Ox O2 Delivery O2 Flow Rate FiO2 07/19/20 12:10 97.9 71 20 127/64 (85) 92 Nasal Cannula 3.0 07/14/20 00:16 40 I&O- Last 24 Hours up to 6 AM 07/19/20 06:00 Intake Total 940 ml Output Total 2070 ml Balance -1130 ml Laboratory Data 24H LABS Laboratory Tests 2 07/18/20 16:46: Bedside Glucose (Misc Panel) 199H 07/18/20 16:47: D-Dimer, Quantitative < 270, C-Reactive Protein, Quantitative 4.85H 07/18/20 21:54: Bedside Glucose (Misc Panel) 265H 07/19/20 06:45: Bedside Glucose (Misc Panel) 268H 07/19/20 07:47: Immature Granulocyte % (Auto) 1.3, Neutrophils (%) (Auto) 81.8H, Lymphocytes (%) (Auto) 9.6L, Monocytes (%) (Auto) 6.2H, Eosinophils (%) (Auto) 0.8, Basophils (%) (Auto) 0.3, Neutrophils # (Auto) 6.1, Lymphocytes # (Auto) 0.7L, Monocytes # (Auto) 0.5, Eosinophils # (Auto) 0.1, Basophils # (Auto) 0.0, Nucleated Red Blood Cells % (auto) 0.0, Fibrinogen 685H, Anion Gap 4L, Glomerular Filtration Rate > 60.0, Calcium Level 8.4L, Ferritin 1202H, Total Bilirubin 0.8, Aspartate Amino Transf (AST/SGOT) 47H, Alanine Aminotransferase (ALT/SGPT) 236H, Alkaline Phosphatase 133H, Lactate Dehydrogenase 256H, C-Reactive Protein, Quantitative 4.40H, Total Protein 5.8L, Albumin 2.6L, Albumin/Globulin Ratio 0.8 07/19/20 11:29: Bedside Glucose (Misc Panel) 265H CBC/BMP Laboratory Tests 07/19/20 07:47 Microbiology Microbiology 07/13/20 Blood Culture - Final, Complete NO GROWTH AFTER 5 DAYS 07/13/20 Blood Culture - Final, Complete NO GROWTH AFTER 5 DAYS 07/13/20 Blood Culture - Final, Complete NO GROWTH AFTER 5 DAYS 07/13/20 Respiratory Virus Panel (PCR) ([facility]) - Final, Complete SARS-CoV-2 (COVID 19) 07/13/20 Blood Culture - Final, Complete NO GROWTH AFTER 5 DAYS GME ATTESTATION GME ATTESTATION My faculty preceptor for this patient encounter was physically present during the encounter and was fully available. All aspects of the patient interview, examination, medical decision making process, and medical care plan development were reviewed and approved by the faculty preceptor. The faculty preceptor is aware and concurs with the plan as stated in the body of this note and will attest to such by his/her cosignature. ATTENDING NOTE I, Cleopatra Blanc, have independently examined this patient and performed my own physical exam, as well as reviewed the documentation and edited where necessary. I have discussed in detail with the resident / student the findings and plan of treatment as documented by the resident / student and edited their note. I agree with their findings and treatment plan and have edited their documentation. I will continue to follow the patient during this hospital stay. SONAM YUN MD Jul 19, 2020 14:44 CLEOPATRA BLANC MD Jul 19, 2020 15:10
[2020-07-19 16:00] VITALS: O2SAT 91
[2020-07-19] MEDS ORDERED: BASA100I SC (16:59)
[2020-07-19] MEDS ORDERED: TRAM50TA2 PO (16:59)
[2020-07-19] MEDS ORDERED: COMBAER6 INH (18:12)
--- NOTE | 2020-07-19 18:45 | DS.PDOC ---
Discharge Summary General Date of Admission Jul 13, 2020 at 17:02 Date of Discharge July 19, 2020 Attending Physician: CLEOPATRA FERRARO MD Discharge Summary PROCEDURES PERFORMED DURING STAY: [None]. ADMITTING DIAGNOSES / DISCHARGE DIAGNOSES: Acute hypoxic respiratory failure secondary to COVID19 pneumonia Recent C. difficile infection Recent diagnosis of epididymitis Type 2 diabetes mellitus, on insulin History of CAD status post cardiac stent placement (2016) Mood disorder Hypothyroidism HTN DVT prophylaxis COMPLICATIONS/CHIEF COMPLAINT: Shortness of breath HISTORY OF PRESENT ILLNESS: 59 yo M with a history of IDDM, coronary artery diseases, hyperlipidemia, cardiac stent placement in 2016, hypothyroidism who developed respiratory symptoms and diarrhea on 06/29, was diagnosed with C.diff infection on 07/03 and started on PO vanc and loperamide QID? at the same time, and finally diagnosed with covid-19 on 07/04 who was recently admitted at [facility] 07/11 - 07/12 with abdominal pain at R suprapubic area/lower abdominal pain, constipation for 5 days and found to have mild covid-19 infection without hypoxemia, and constipation without obstruction or toxic megacolon with resolving c.diff infection, who now returns reporting worsening dyspnea without any noted krupa fevers, no diarrhea or abdominal pain, no chest pain or palpitations. Chief complaint is worsening dyspnea at rest and worse with exertion with poor PO intake. In the ED, he arrived HDS, afebrile and saturating 84% at rest on room air and desaturated to 70s% exertion. Workup today was notable for WBC 9.8, hgb 13.9, platelets of 191, Cr 1.04, lactate wnl, procalcitonin <0.05, troponin wnl, Ddimer down to 334 from 330 at discharge yesterday, fibrinogen 608 from 667, and CXR showed worsening now multifocal infiltrates that were previously LLL. Of note, he was discharged home on PO vanc for resolving C.diff infection with recent CT A/P that showed normal gas pattern without acute obstruction or megacolon, while recent CTA did not showed a PE but multifocal GGOs. He is now being admitted for worsening covid-19 PNA with hypoxemic respiratory failure. HOSPITAL COURSE: 1. Acute hypoxemic respiratory failure secondary to COVID19 pneumonia: Patient was based on BiPAP and eventually titrated down to room air on hospital day 7. -Inflammatory markers decreased throughout hospitalization -Tessalon Perles as needed for cough -Albuterol as needed for shortness of breath -Completed 6 days of dexamethasone -Patient sent home on Combivent inhaler, 2 L oxygen for ambulation 2. Recent C. difficile infection: -Resolved; CT abdomen and pelvis on admission WNL -Continue Bacid 3. Recent diagnosis of epididymitis: -Completed 7 day course of Levaquin 4. Type 2 diabetes mellitus, on insulin: -Levemir 30 units twice daily -Sliding-scale insulin with hypoglycemic protocol -FS BS before meals/at bedtime -Holding home Trulicity 5. History of CAD status post cardiac stent placement in 2017: -Continue home aspirin, Lipitor 6. Mood disorder: Continue Paxil 7. Hypothyroidism: -TSH elevated at 11.6 likely due to acute infection. T4 was within normal limits -Continue Levothyroxine 125mcg daily 8. HTN: -Continue Losartan DISCHARGE MEDICATIONS: Please see below. ALLERGIES: Please see below. PHYSICAL EXAMINATION ON DISCHARGE: VITAL SIGNS: see below GENERAL: Sitting up in bed, alert and oriented, in no apparent distress, conversant in full sentences. HEENT: PERRL, EOMI, Oral mucous membranes are moist without lesions. NECK: The patient has no noted JVD. No adenopathy is appreciated. No thyromegaly CHEST/LUNGS: There are decreased breath sounds bilaterally with some scattered wheezing in all lung guillaume. Chest rise is symmetrical HEART:Regular rate and rhythm. No murmurs, rubs, or gallops are appreciated. Distal pulses are 2+. No carotid bruits appreciated. ABDOMEN: Soft, nontender, and nondistended. Bowel sounds are positive. No organomegaly is appreciated. No masses are appreciated. There are no peritoneal signs. There is no Paris sign. EXTREMITIES: No peripheral edema. There is no focal long bone tenderness or deformity. SKIN: The patients skin is warm and dry, without rashes or lesions. PSYCHIATRIC: AAO x 3, normal mood/affect NEUROLOGIC: The patient has 5/5 strength to the upper and lower extremities bilaterally. Sensation is intact throughout. Deep tendon reflexes are 2+ in all four extremities. There are no deficits to the cranial nerves. LABORATORY DATA: Please see below. IMAGING: CXR: FINDINGS: Diffuse bilateral infiltrates are visualized which have worsened compared to the prior study. Heart mediastinum are unchanged. IMPRESSION: Increased diffuse bilateral infiltrates PROGNOSIS: Fair ACTIVITY: [As tolerated]. DIET: Consistent carb DISCHARGE PLAN: Follow-up with primary care provider within the next 7 days Remain compliant with treatment plan and medications Return to the ER if you experience any problems DISPOSITION: Home DISCHARGE INSTRUCTIONS: 1. Quarantine for 10 days 2. Follow-up with PCP after 14 days 3. Pickup oxygen for use at home ITEMS TO FOLLOWUP ON ON OUTPATIENT: 1. None DISCHARGE CONDITION: [Stable]. TIME SPENT ON DISCHARGE: 35 minutes. Vital Signs/I&Os Vital Signs Date Time Temp Pulse Resp B/P (MAP) Pulse Ox O2 Delivery O2 Flow Rate FiO2 07/19/20 16:00 91 Room Air 07/19/20 12:10 97.9 71 20 127/64 (85) 3.0 07/14/20 00:16 40 I&O- Last 24 Hours up to 6 AM 07/19/20 06:00 Intake Total 940 ml Output Total 2070 ml Balance -1130 ml Laboratory Data Labs 24H Laboratory Tests 2 07/18/20 21:54: Bedside Glucose (Misc Panel) 265H 07/19/20 06:45: Bedside Glucose (Misc Panel) 268H 07/19/20 07:47: Immature Granulocyte % (Auto) 1.3, Neutrophils (%) (Auto) 81.8H, Lymphocytes (%) (Auto) 9.6L, Monocytes (%) (Auto) 6.2H, Eosinophils (%) (Auto) 0.8, Basophils (%) (Auto) 0.3, Neutrophils # (Auto) 6.1, Lymphocytes # (Auto) 0.7L, Monocytes # (Auto) 0.5, Eosinophils # (Auto) 0.1, Basophils # (Auto) 0.0, Nucleated Red Blood Cells % (auto) 0.0, Fibrinogen 685H, Anion Gap 4L, Glomerular Filtration Rate > 60.0, Calcium Level 8.4L, Ferritin 1202H, Total Bilirubin 0.8, Aspartate Amino Transf (AST/SGOT) 47H, Alanine Aminotransferase (ALT/SGPT) 236H, Alkaline Phosphatase 133H, Lactate Dehydrogenase 256H, C-Reactive Protein, Quantitative 4.40H, Total Protein 5.8L, Albumin 2.6L, Albumin/Globulin Ratio 0.8 07/19/20 11:29: Bedside Glucose (Misc Panel) 265H 07/19/20 17:51: Bedside Glucose (Misc Panel) 265H CBC/BMP Laboratory Tests 07/19/20 07:47 FSBS Laboratory Tests Test 07/18/20 21:54 07/19/20 06:45 07/19/20 11:29 07/19/20 17:51 Range/Units Bedside Glucose (Misc Panel) 265 268 265 265 70-105 MG/DL Microbiology Microbiology 07/13/20 Blood Culture - Final, Complete NO GROWTH AFTER 5 DAYS 07/13/20 Blood Culture - Final, Complete NO GROWTH AFTER 5 DAYS 07/13/20 Blood Culture - Final, Complete NO GROWTH AFTER 5 DAYS 07/13/20 Respiratory Virus Panel (PCR) ([facility]) - Final, Complete SARS-CoV-2 (COVID 19) 07/13/20 Blood Culture - Final, Complete NO GROWTH AFTER 5 DAYS Discharge Medications Scheduled Aspirin (Aspirin) 81 Mg Chw, 81 MG PO DAILY, (Reported) Atorvastatin Calcium (Atorvastatin Calcium) 40 Mg Tablet, 40 MG PO QHS, (Reported) Benzonatate (Tessalon Perle) 100 Mg Capsule, 1 CAP PO TID for cough Cetirizine HCl (Cetirizine HCl) 10 Mg Tablet, 10 MG PO DAILY, (Reported) Cholecalciferol (Vitamin D3) (Vitamin D3) 50 Mcg Capsule, 100 MCG PO DAILY, (Reported) Dulaglutide (Trulicity) 1.5 Mg/0.5 Ml Pen.injctr, 1.5 MG IM QWEEK, (Reported) FRIDAY Insulin Glargine,Hum.rec.anlog (Basaglar Kwikpen U-100) 100 Unit/1 Ml Insuln.pen, 30 UNIT SC BID Ipratropium/Albuterol Sulfate (Combivent Respimat 20-100 Mcg) 4 Gm Mist.inhal, 2 PUFF INH TID Lactobacillus 3/Fos/Pantethine (Probiotic & Acidophilus Cap) 1 Each Capsule, 1 CAP PO DAILY Levothyroxine Sodium (Levo-T) 125 Mcg Tablet, 125 MCG PO DAILY, (Reported) Losartan Potassium (Losartan Potassium) 100 Mg Tablet, 100 MG PO DAILY, (Reported) Nitroglycerin (Nitrostat) 0.4 Mg Subl, 0.4 MG SL Q5MP, (Reported) Pantoprazole Sodium (Pantoprazole Sodium) 40 Mg Tablet.dr, 40 MG PO QHS, (Reported) Paroxetine HCl (Paroxetine HCl) 20 Mg Tab, 20 MG PO QHS, (Reported) Ubidecarenone (Coenzyme Q10) 100 Mg Cap, 200 MG PO BID, (Reported) Zinc Oxide (Diaper Rash) 113 Gm Cream..g., 1 APLCT TOP BID Scheduled PRN Albuterol Sulfate (Albuterol Sulfate Hfa) 8.5 Gm Hfa.aer.ad, 2 PUFFS INH Q6HP PRN for SOB/COUGH Dicyclomine HCl (Dicyclomine HCl) 10 Mg Capsule, 1 CAP PO Q6HP PRN for irritable bowel symptoms Insulin Lispro (Admelog Solostar) 100 Unit/1 Ml Insuln.pen, 1 DOSE SC ASDIRECTED PRN for SLIDING SCALE, (Reported) Tramadol HCl (Tramadol HCl) 50 Mg Tablet, 50 MG PO Q8HP PRN for MODERATE PAIN (PS 5-7) Allergies Coded Allergies: Sulfa (Sulfonamide Antibiotics) (Verified Allergy, Severe, ANAPHYLAXIS, 04/24) [place] (Verified Allergy, Severe, ANAPHYLAXIS, 06/04/20) amoxicillin (Verified Allergy, Unknown, 12/14/18) cefdinir (Verified Allergy, Unknown, 12/14/18) clavulanic acid (Verified Allergy, Unknown, 12/14/18) pseudoephedrine (Verified Adverse Reaction, Severe, high bp, 08/12/19) lisinopril (Verified Adverse Reaction, Intermediate, BRADYKININ COUGH, 08/12/19) GME ATTESTATION GME ATTESTATION My faculty preceptor for this patient encounter was physically present during the encounter and was fully available. All aspects of the patient interview, examination, medical decision making process, and medical care plan development were reviewed and approved by the faculty preceptor. The faculty preceptor is aware and concurs with the plan as stated in the body of this note and will attest to such by his/her cosignature. ATTENDING NOTE I, Cleopatra Ferraro, have independently examined this patient and performed my own physical exam, as well as reviewed the documentation and edited where necessary. I have discussed in detail with the resident / student the findings and plan of treatment as documented by the resident / student and edited their note. I agree with their findings and treatment plan and have edited their documentation. I will continue to follow the patient during this hospital stay. Time spent on discharge 37 minutes SONAM YUN MD Jul 19, 2020 18:45 CLEOPATRA FERRARO MD Jul 20, 2020 14:35
== END 2020-07-19 19:00 | disposition home or self-care (01) | DRG 137 ==
LOC: M ED 12:33 → M ED INP 17:02 → M 4MAIN 07-14 03:07
PROVIDERS: ADMIT Internal Medicine; ATTEND Internal Medicine
PROC: 3E0333Z Introduction of Anti-inflammatory into Peripheral Vein, Percutaneous Approach (ICD-10-PCS; principal; 2020-07-13)
DX: U07.1 COVID-19 (principal); J96.01 Acute respiratory failure with hypoxia; A04.72 Enterocolitis due to Clostridium difficile, not specified as recurrent; J12.89 Other viral pneumonia; E11.9 Type 2 diabetes mellitus without complications; I25.10 Atherosclerotic heart disease of native coronary artery without angina pectoris; E03.9 Hypothyroidism, unspecified; G47.33 Obstructive sleep apnea (adult) (pediatric); I10 Essential (primary) hypertension; N45.1 Epididymitis; E66.9 Obesity, unspecified; E78.5 Hyperlipidemia, unspecified; F32.9 Major depressive disorder, single episode, unspecified; F39 Unspecified mood [affective] disorder; K21.9 Gastro-esophageal reflux disease without esophagitis; Z95.5 Presence of coronary angioplasty implant and graft; Z88.0 Allergy status to penicillin; Z88.1 Allergy status to other antibiotic agents; Z88.2 Allergy status to sulfonamides; Z88.8 Allergy status to other drugs, medicaments and biological substances; Z91.018 Allergy to other foods; Z79.82 Long term (current) use of aspirin; Z79.4 Long term (current) use of insulin; Z79.899 Other long term (current) drug therapy; Z68.33 Body mass index [BMI] 33.0-33.9, adult

== ENCOUNTER 2020-07-21 15:28 | Inpatient (IN) | payer OTHER ==
[~2020-07-21] VITALS: Ht 177.8 cm; Wt 109.0 kg
[~2020-07-21 15:28] MED LIST changes: +COMBAER6 INH; +TRAM50TA2 PO
--- OUTSIDE RECORDS SUMMARY | 2020-07-21 15:35 | CCD ---
Author Author [facility] Organization [facility] Address Unknown Phone Unavailable Care Team Providers Care Booking Prizer Name Role Phone Galilea Roblero Unavailable PROBLEMS Type Condition ICD9-CM Code [id number] Code Onset Dates Condition S tatus SNOMED Code Notes Problem Asthma J45.909 Active 234542761 Problem Esophageal reflux K21.9 Active 329459452 Problem Other and unspecified hyperlipidemia E78.5 Act artemio 21836622 Problem Obstructive sleep apnea G47.33 Active 47841279 Problem Hypothyroidism, unspecified E03.9 Active 4093 0008 Problem Type 2 diabetes mellitus with hyperglycemia E11.65 Active 196995968250145 Problem Essential (primary) hypertension I10 Active 45411661 Problem Other anxiety states F41.1 Active 170934706 Problem Other asthma J45.998 Active 470675744 Problem Other obesity E66.8 Active 167354048 Problem Type 2 diabetes mellitus without complications E11 .9 Active 742825625 Problem Depression, unspecified depression type F32.9 Active 89308479 Problem 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 Active 23612988 Problem Other hyperlipidemia E78.4 Active 71458367 Problem DM w/o complication type II E11.9 Active 3134 86315 Problem LUCILA (obstructive sleep apnea) G47.33 Active 78 592836 Problem Obstructive sleep apnea (adult) (pediatric) G47.33 Active 11759946 Problem Hypothyroidism E03.9 Active 46523730 Problem Obesity E66.9 Active 826240717 Problem Coronary artery disease invo lving jamul heart with unstable angina pectoris, unspecified vessel or lesion type I25.110 Act artemio 02276316 Problem 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 Active 63813053 Problem Allergic rhinitis, unspecified J30.9 Active 6 0202602 Problem Anxiety F41.9 Active 22163097 ALLERGIES Allergen (clinical drug ingredient) Drug/Non Drug Allergy do cumented on EMR Reaction Allergy Type Onset Date Status pseudoephedrine Pseudoephedrine HCl([facility] Code:[address]- 61) hospitalized for hypertensive urgency Drug Allergy Active amoxicillin / clavulanate Augmentin([facility] Code:[address]-27) Unkn own Drug Allergy Active cefdinir Cefdinir([facility] Code:[address]-36) Tongue tingling Drug Freddie rgy Active [place] Anaphylaxis Non Drug Allergy Active Sulfa (for allergy use only) anaphylaxis Drug Allergy Active ENCOUNTERS from 1961 to 2020-07-11 Encounter Location Date Provider Diagnosis [facility] [address] [place] [address] Jul Galilea Roblero IMMUNIZATIONS Vaccine Route Administration Date Status Influenza (6mo & up) Fluzone Unknown May 21, 2017 Ref used Influenza (6mo & up) Fluzone Unknown Aug 13, 2016 Oth ers SOCIAL HISTORY Tobacco Use: Social History Observation Description Date Details (start date - stop date) Never Smoker Sex Assigned At : Social History Observation Description Sex Assigned At Unknown Education: Question Answer Notes Level of Education: High School Audit Question Answer Notes Total Score: 2 Interpretation: Alcohol Education Language: Question Answer Notes Languages spoken: Citizen Of [place] Methodist: Question Answer Notes Methodist 08 Gnosticist Sexual Hx: Question Answer Notes Had sex in the last 12 months (vaginal, oral, or anal)? Yes Have you ever had an STD? No with Women only Drug and Alcohol Question Answer Notes Total Score: 0 Interpretation: No problems reported Alcohol Screening: Question Answer Notes Did you have a drink containing alcohol in the past year? Ye s Points 1 Interpretation Negative How often did you have six or more drinks on one occas ion in the past year? Never (0 points) How many drinks did you have on a typica l day when you were drinking in the past year? 1 or 2 (0 points) How often did you have a drink containing alcohol in t he past year? Monthly or less (1 point) BMI Care Goal Follow-Up Question Answer Notes Above Normal BMI Follow-Up Lifestyle education regarding t Tobacco Use: Question Answer Notes Are you a: never smoker Additional Findings: Tobacco User Chews fine cut tobacco 1 c an per day REASON FOR REFERRAL No Information VITAL SIGNS No information MEDICATIONS Medication SIG (Take, Route, Frequency, Duration) Notes Start Da te End Date Status Tizanidine HCl 4 MG 1 tablet as needed Orally Three times a day for 5 day(s) November, Active Aspirin 81 81 MG 1 tablet Orally Once a day Active Naproxen 500 MG 1 tablet with food or milk a s needed Orally every 12 hrs for 5 day(s) November, Active Co Q 10 200 MG 1 capsule with a meal Orally BID Active Losartan Potassium 50 MG 1 tablet Orally Once a day Active Levemir 100 UNIT/ML DX : 250 Subcutaneous 60 units twice daily Unknown Trulicity 1.5 MG/0.5ML Subcutaneous Active Atorvastatin Calcium 40 MG 1 tablet Orally Once a day Active Terbinafine HCl 1 % apply thick layer to groin e xternally three times a day for 30 Days Aug, Active Nitroglycerin 0.4 MG Sublingual Act artemio Flonase 50 MCG/ACT 1 spray in each nostril Nasally bid for 90 days Active Omeprazole 20 MG ONE BY MOUTH EVERY DAY for 30 Active NovoLog Flexpen 100 UNIT/ML sliding scale Subcutaneous between 10 and 28 units (Dr. Felipe) Active Tylenol Extra Strength 650 mg 1 tablet as needed Orally every 6 hrs as needed Active Pantoprazole Sodium 40 MG take one tablet by mouth jerri ry day orally Daily for 30 days Active Zyrtec Allergy 10 MG 1 tablet Orally Once a day for 90 Active Levothyroxine Sodium 125 MCG 1 tablet on an empty stom ach in the morning Orally Once a day Active Vitamin D 1000 UNIT 4 tablet Orally Once a day Active Paxil 20 MG 1 tablet in the morning Orally Once a day for 30 Active PROCEDURES No Information RESULTS No Results REASON FOR VISIT needs a call back MEDICAL (GENERAL) HISTORY Type Description Date Medical History LUCILA/ CPAP Pulmonary (last seen 06/16)- n ot using Medical History DM2: [place] Medical History Hypothyroidism: [place] Medical History GERD : diet controlled Medical History HTN Medical History Obesity Medical History Dyslipidemia Medical History H/O Anxiety Medical History Allergic rhinitis Medical History Pneumovax- REFUSES Medical History thoracic anuerysm Medical History LBBB Medical History Echocardiogram 05/[address] Gutierrez: moderately thickened aortic valve, dilated throacic aorta at 4.2 cm Medical History CAD Surgical History hernia repair Surgical History appendectomy Surgical History septoplasty Surgical History cardiac cath ([facility]) 09/2012 Surgical History EGD/colonoscopy 2010 Surgical History Angioplasty- [facility]: [place] 02/23 17 Surgical History Colonoscopy- Dr. Castellon. + adenoma: repe at due 04/2017 Surgical History Cardiac Stent: [facility] 08/2017 Hospitalization History asthma exacerbation 09/2011 Hospitalization History unstable angina, angioplasty [facility] Hospitalization History [facility] [place]/Stent 08/2017 Hospitalization History [facility]-N/V/D-Colitis 06/2020 Goals Section No Information Health Concerns No Information MEDICAL EQUIPMENT No Information MENTAL STATUS No Information FUNCTIONAL STATUS No Information ASSESSMENTS No Information PLAN OF TREATMENT No Information Insurance Providers Payer Name Payer Address Payer Phone Insured Name Patient Relati onship to Insured Coverage Start Date Coverage End Date MEDICAID [place] [employer] [address] [facility] [id number] [place] self
--- OUTSIDE RECORDS SUMMARY | 2020-07-21 15:35 | CCD ---
Author Author [facility] Organization [facility] Address Unknown Phone Unavailable Care Team Providers Care [employer] Name Role Phone Galilea Roblero Unavailable PROBLEMS Type Condition ICD9-CM Code RRA36-UX Code Onset Dates Condition S tatus SNOMED Code Notes Problem Asthma J45.909 Active 133795324 Problem Esophageal reflux K21.9 Active 831975126 Problem Other and unspecified hyperlipidemia E78.5 Act artemio 98061296 Problem Obstructive sleep apnea G47.33 Active 72726110 Problem Hypothyroidism, unspecified E03.9 Active 4093 0008 Problem Type 2 diabetes mellitus with hyperglycemia E11.65 Active 224490557280125 Problem Essential (primary) hypertension I10 Active 93020161 Problem Other anxiety states F41.1 Active 333681437 Problem Other asthma J45.998 Active 492686462 Problem Other obesity E66.8 Active 329583872 Problem Type 2 diabetes mellitus without complications E11 .9 Active 527681734 Problem Depression, unspecified depression type F32.9 Active 26397825 Problem 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 Active 69380418 Problem Other hyperlipidemia E78.4 Active 42648966 Problem DM w/o complication type II E11.9 Active 3134 71596 Problem LUCILA (obstructive sleep apnea) G47.33 Active 78 569055 Problem Obstructive sleep apnea (adult) (pediatric) G47.33 Active 81148932 Problem Hypothyroidism E03.9 Active 45514091 Problem Obesity E66.9 Active 351756663 Problem Coronary artery disease invo lving inupiat heart with unstable angina pectoris, unspecified vessel or lesion type I25.110 Act artemio 11242371 Problem 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 Active 44237295 Problem Allergic rhinitis, unspecified J30.9 Active 6 2448028 Problem Anxiety F41.9 Active 22901338 ALLERGIES Allergen (clinical drug ingredient) Drug/Non Drug Allergy do cumented on EMR Reaction Allergy Type Onset Date Status pseudoephedrine Pseudoephedrine HCl([facility] Code:[address]- 61) hospitalized for hypertensive urgency Drug Allergy Active amoxicillin / clavulanate Augmentin([facility] Code:[address]-42) Unkn own Drug Allergy Active cefdinir Cefdinir([facility] Code:[address]-45) Tongue tingling Drug Freddie rgy Active [place] Anaphylaxis Non Drug Allergy Active Sulfa (for allergy use only) anaphylaxis Drug Allergy Active ENCOUNTERS from 1961 to 2020-07-18 Encounter Location Date Provider Diagnosis [facility] [address] [place] [address] Jul Galilea Roblero IMMUNIZATIONS Vaccine Route Administration [...] Education Language: Question Answer Notes Languages spoken: [place] Jainism: Question Answer Notes Jainism 08 Yarsani Sexual Hx: Question Answer Notes Had sex [...] Notes Start Da te End Date Status Co Q 10 200 MG 1 capsule with a meal Orally BID Unknown Levemir 100 UNIT/ML DX : 250 Subcutaneous 60 units twice daily Unknown Nitroglycerin 0.4 MG Sublingual Unk nown Zyrtec Allergy 10 MG 1 tablet Orally Once a day for 90 Unknown Omeprazole 20 MG ONE BY MOUTH EVERY DAY for 30 Unknown Pantoprazole Sodium 40 MG take one tablet by mouth jerri ry day orally Daily for 30 days Unknown Levothyroxine Sodium 125 MCG 1 tablet on an empty stom ach in the morning Orally Once a day Unknown Atorvastatin Calcium 40 MG 1 tablet Orally Once a day Unknown Vitamin D 1000 UNIT 4 tablet Orally Once a day Unknown Tizanidine HCl 4 MG 1 tablet as needed Orally Three times a day for 5 day(s) November, Unknown Naproxen 500 MG 1 tablet with food or milk a s needed Orally every 12 hrs for 5 day(s) November, Unknown Losartan Potassium 50 MG 1 tablet Orally Once a day Unknown Tylenol Extra Strength 650 mg 1 tablet as needed Orally every 6 hrs as needed Unknown NovoLog Flexpen 100 UNIT/ML sliding scale Subcutaneous between 10 and 28 units (Dr. Felipe) Unknown Flonase 50 MCG/ACT 1 spray in each nostril Nasally bid for 90 days Unknown Trulicity 1.5 MG/0.5ML Subcutaneous Unknown Aspirin 81 81 MG 1 tablet Orally Once a day Unknown Paxil 20 MG 1 tablet in the morning Orally Once a day for 30 Unknown Terbinafine HCl 1 % apply thick layer to groin e xternally three times a day for 30 Days Aug, Unknown PROCEDURES No Information RESULTS No Results REASON FOR VISIT [facility] D/C 07/12 MEDICAL (GENERAL) HISTORY Type Description Date Medical History LUCILA/ CPAP Pulmonary (last seen 06/16)- n ot using Medical History DM2: [place] Medical History Hypothyroidism: [place] Medical History GERD : diet controlled Medical [...] Surgical History septoplasty Surgical History cardiac cath ([facility]) 09/2012 Surgical History EGD/colonoscopy 2010 Surgical History Angioplasty- [facility]: [place] 02/23 17 Surgical History Colonoscopy- Dr. Castellon. + adenoma: repe at due 2020 04/2017 Surgical History Cardiac Stent: [facility] 08/2017 Hospitalization History asthma exacerbation 09/2011 Hospitalization History unstable angina, angioplasty [facility] Hospitalization History [facility] [place]/Stent 08/2017 Hospitalization History [facility]-N/V/D-Colitis 06/2020 Goals Section No Information Health Concerns No Information MEDICAL EQUIPMENT No Information MENTAL STATUS No Information FUNCTIONAL STATUS No Information ASSESSMENTS Encounter Date Diagnosis Assessment Notes Treatment Notes Treatm ent Clinical Notes Jul, Other Discussion with patient PLAN OF TREATMENT No Information Insurance Providers Payer Name Payer Address Payer Phone Insured Name Patient Relati onship to Insured Coverage Start Date Coverage End Date MEDICAID [place] [address] [facility] [id number] [place] self
--- OUTSIDE RECORDS SUMMARY | 2020-07-21 15:35 | CCD ---
Author Author [facility] Organization [facility] Address Unknown Phone Unavailable Care Team Providers Care Geoscience Technician Name Role Phone Galilea Roblero Unavailable PROBLEMS Type Condition ICD9-CM Code SEO26-SS Code Onset Dates Condition S tatus SNOMED Code Notes Problem Asthma J45.909 Active 864761433 Problem Esophageal reflux K21.9 Active 901220865 Problem Other and unspecified hyperlipidemia E78.5 Act artemio 91213772 Problem Obstructive sleep apnea G47.33 Active 15937975 Problem Hypothyroidism, unspecified E03.9 Active 4093 0008 Problem Type 2 diabetes mellitus with hyperglycemia E11.65 Active 783904646869384 Problem Essential (primary) hypertension I10 Active 36028778 Problem Other anxiety states F41.1 Active 285243398 Problem Other asthma J45.998 Active 494709483 Problem Other obesity E66.8 Active 714017021 Problem Type 2 diabetes mellitus without complications E11 .9 Active 444931364 Problem Depression, unspecified depression type F32.9 Active 53902428 Problem 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 Active 63307950 Problem Other hyperlipidemia E78.4 Active 40816363 Problem DM w/o complication type II E11.9 Active 3134 04020 Problem LUCILA (obstructive sleep apnea) G47.33 Active 78 318939 Problem Obstructive sleep apnea (adult) (pediatric) G47.33 Active 34475283 Problem Hypothyroidism E03.9 Active 12998420 Problem Obesity E66.9 Active 141251626 Problem Coronary artery disease invo lving [place] heart with unstable angina pectoris, unspecified vessel or lesion type I25.110 Act artemio 54055051 Problem 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 Active 14087342 Problem Allergic rhinitis, unspecified J30.9 Active 6 1665772 Problem Anxiety F41.9 Active 43430109 ALLERGIES Allergen (clinical drug ingredient) Drug/Non Drug Allergy do cumented on EMR Reaction Allergy Type Onset Date Status pseudoephedrine Pseudoephedrine HCl([facility] Code:[address]- 61) hospitalized for hypertensive urgency Drug Allergy Active amoxicillin / clavulanate Augmentin([facility] Code:[address]-76) Unkn own Drug Allergy Active cefdinir Cefdinir([facility] Code:[address]-79) Tongue tingling Drug Freddie rgy Active [place] Anaphylaxis Non Drug Allergy Active Sulfa (for allergy use only) anaphylaxis Drug Allergy Active ENCOUNTERS from 1961 to 2020-07-14 Encounter Location Date Provider Diagnosis [facility] [address] [place] [address] Jul Galilea Roblero IMMUNIZATIONS Vaccine Route Administration [...] Education Language: Question Answer Notes Languages spoken: [place] Yazidi: Question Answer Notes Yazidi 08 Orthodox Sexual Hx: Question Answer Notes Had sex [...] Information RESULTS No Results REASON FOR VISIT diff breathing/ weakness/ fever MEDICAL (GENERAL) HISTORY Type Description Date Medical History LUCILA/ CPAP Pulmonary (last seen 06/16)- n ot using Medical History DM2: [place] Medical History Hypothyroidism: [place] Medical History GERD : diet controlled Medical [...] Surgical History septoplasty Surgical History cardiac cath ([place] [facility]) 09/2012 Surgical History EGD/colonoscopy 2010 Surgical History Angioplasty- [place]: [place] 02/23 17 Surgical History Colonoscopy- Dr. Castellon. + adenoma: repe at due 04/2017 Surgical History Cardiac Stent: [facility] 08/2017 Hospitalization History asthma exacerbation 09/2011 Hospitalization History unstable angina, angioplasty [facility] Hospitalization History [facility] [place]/Stent 08/2017 Hospitalization History [facility]-Colitis 06/2020 Goals Section No Information Health Concerns No Information MEDICAL EQUIPMENT No Information MENTAL STATUS No Information FUNCTIONAL STATUS No Information ASSESSMENTS No Information PLAN OF TREATMENT No Information Insurance Providers Payer Name Payer Address Payer Phone Insured Name Patient Relati onship to Insured Coverage Start Date Coverage End Date MEDICAID [address] [address] [facility] [id number] [place] SHIELDS self
--- OUTSIDE RECORDS SUMMARY | 2020-07-21 15:35 | CCD ---
Author Author [facility] Organization [facility] Address Unknown Phone Unavailable Care Team Providers Care Welfare Director Name Role Phone Galilea Roblero Unavailable PROBLEMS Type Condition ICD9-CM Code [id number] Code Onset Dates Condition S tatus SNOMED Code Notes Problem Asthma J45.909 Active 334147601 Problem Esophageal reflux K21.9 Active 955292632 Problem Other and unspecified hyperlipidemia E78.5 Act artemio 71695772 Problem Obstructive sleep apnea G47.33 Active 70757055 Problem Hypothyroidism, unspecified E03.9 Active 4093 0008 Problem Type 2 diabetes mellitus with hyperglycemia E11.65 Active 328803686853901 Problem Essential (primary) hypertension I10 Active 06999175 Problem Other anxiety states F41.1 Active 911405910 Problem Other asthma J45.998 Active 311685218 Problem Other obesity E66.8 Active 949204390 Problem Type 2 diabetes mellitus without complications E11 .9 Active 629474308 Problem Depression, unspecified depression type F32.9 Active 90877702 Problem 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 Active 27807896 Problem Other hyperlipidemia E78.4 Active 68647518 Problem DM w/o complication type II E11.9 Active 3134 04127 Problem LUCILA (obstructive sleep apnea) G47.33 Active 78 708346 Problem Obstructive sleep apnea (adult) (pediatric) G47.33 Active 40868774 Problem Hypothyroidism E03.9 Active 47997209 Problem Obesity E66.9 Active 907629903 Problem Coronary artery disease invo lving [place] heart with unstable angina pectoris, unspecified vessel or lesion type I25.110 Act artemio 20602673 Problem 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 Active 55389482 Problem Allergic rhinitis, unspecified J30.9 Active 6 3284516 Problem Anxiety F41.9 Active 68166858 ALLERGIES Allergen (clinical drug ingredient) Drug/Non Drug Allergy do cumented on EMR Reaction Allergy Type Onset Date Status pseudoephedrine Pseudoephedrine HCl([facility] Code:[address]- 61) hospitalized for hypertensive urgency Drug Allergy Active amoxicillin / clavulanate Augmentin([facility] Code:[address]-06) Unkn own Drug Allergy Active cefdinir Cefdinir([facility] Code:[address]-56) Tongue tingling Drug Freddie rgy Active [place] Anaphylaxis Non Drug Allergy Active Sulfa (for allergy use only) anaphylaxis Drug Allergy Active ENCOUNTERS from 1961 to 2020-07-13 Encounter Location Date Provider Diagnosis [facility] [address] [place] [address] Jul Galilea Roblero IMMUNIZATIONS Vaccine Route Administration [...] Education Language: Question Answer Notes Languages spoken: [place] Latter-Day: Question Answer Notes Latter-Day 08 Christianity Sexual Hx: Question Answer Notes Had sex [...] Information RESULTS No Results REASON FOR VISIT msg/call back MEDICAL (GENERAL) HISTORY Type Description Date Medical History LUCILA/ CPAP Pulmonary (last seen 06/16)- n ot using Medical History DM2: [place] Medical History Hypothyroidism: [place] Medical History GERD : diet controlled Medical [...] Surgical History septoplasty Surgical History cardiac cath ([place] [facility]) 09/2012 Surgical History EGD/colonoscopy 2010 Surgical History Angioplasty- [place]: [place] 02/23 17 Surgical History Colonoscopy- Dr. Castellon. + adenoma: repe at due 04/2017 Surgical History [facility] St[facility] 08[facility] Hospitalization History asthma exacerbation 09/2011 Hospitalization History unstable angina, angioplasty [facility] Hospitalization History [facility] [place] 08/2017 Hospitalization [facility] 06/2020 Goals Section No Information Health Concerns No Information MEDICAL EQUIPMENT No Information MENTAL STATUS No Information FUNCTIONAL STATUS No Information ASSESSMENTS No Information PLAN OF TREATMENT No Information Insurance Providers Payer Name Payer Address Payer Phone Insured Name Patient Relati onship to Insured Coverage Start Date Coverage End Date MEDICAID [employer] [address] [facility] [address] MAR[place] SHIELDS self
--- OUTSIDE RECORDS SUMMARY | 2020-07-21 15:35 | CCD ---
Author Author [facility] Organization [facility] Address Unknown Phone Unavailable Care Team Providers Care Bus Monitor Name Role Phone Galilea Roblero Unavailable PROBLEMS Type Condition ICD9-CM Code [id number] Code Onset Dates Condition S tatus SNOMED Code Notes Problem Asthma J45.909 Active 134788081 Problem Esophageal reflux K21.9 Active 586302701 Problem Other and unspecified hyperlipidemia E78.5 Act artemio 12692797 Problem Obstructive sleep apnea G47.33 Active 87659419 Problem Hypothyroidism, unspecified E03.9 Active 4093 0008 Problem Type 2 diabetes mellitus with hyperglycemia E11.65 Active 327644521831138 Problem Essential (primary) hypertension I10 Active 76247996 Problem Other anxiety states F41.1 Active 725063185 Problem Other asthma J45.998 Active 725345769 Problem Other obesity E66.8 Active 479496306 Problem Type 2 diabetes mellitus without complications E11 .9 Active 065905763 Problem Depression, unspecified depression type F32.9 Active 03417300 Problem 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 Active 68865248 Problem Other hyperlipidemia E78.4 Active 04548999 Problem DM w/o complication type II E11.9 Active 3134 18565 Problem LUCILA (obstructive sleep apnea) G47.33 Active 78 876066 Problem Obstructive sleep apnea (adult) (pediatric) G47.33 Active 49993620 Problem Hypothyroidism E03.9 Active 57283352 Problem Obesity E66.9 Active 571017840 Problem Coronary artery disease invo lving [place] heart with unstable angina pectoris, unspecified vessel or lesion type I25.110 Act artemio 80201011 Problem 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 Active 55997198 Problem Allergic rhinitis, unspecified J30.9 Active 6 8162732 Problem Anxiety F41.9 Active 20667941 ALLERGIES Allergen (clinical drug ingredient) Drug/Non Drug Allergy do cumented on EMR Reaction Allergy Type Onset Date Status pseudoephedrine Pseudoephedrine HCl([facility] Code:[address]- 61) hospitalized for hypertensive urgency Drug Allergy Active amoxicillin / clavulanate Augmentin([facility] Code:[address]-50) Unkn own Drug Allergy Active cefdinir Cefdinir([facility] Code:[address]-07) Tongue tingling Drug Freddie rgy Active [place] Anaphylaxis Non Drug Allergy Active Sulfa (for allergy use only) anaphylaxis Drug Allergy Active ENCOUNTERS from 1961 to 2020-07-12 Encounter Location Date Provider Diagnosis [facility] [address] [place] [address] Jul Galilea Roblero IMMUNIZATIONS Vaccine Route Administration [...] Education Language: Question Answer Notes Languages spoken: Thai Gnosticism: Question Answer Notes Gnosticism 08 Caodaism Sexual Hx: Question Answer Notes Had sex [...] Surgical History septoplasty Surgical History cardiac cath ([facility]) 09/2012 Surgical History EGD/colonoscopy 2010 Surgical History Angi[place]- [facility]: [place] 02/23 17 Surgical History Colonoscopy- Dr. Castellon. + adenoma: repe at due 04/2017 Surgical History Cardiac Stent: [facility] 08/2017 Hospitalization History asthma exacerbation 09/2011 Hospitalization History unstable angina, angioplasty [facility] Hospitalization History [facility] [place]/Stent 08/2017 Hospitalization History [facility] 06/2020 Goals Section No Information Health Concerns No Information MEDICAL EQUIPMENT No Information MENTAL STATUS No Information FUNCTIONAL STATUS No Information ASSESSMENTS No Information PLAN OF TREATMENT No Information Insurance Providers Payer Name Payer Address Payer Phone Insured Name Patient Relati onship to Insured Coverage Start Date Coverage End Date MEDICAID [employer] [address] [facility] [id number] MARILYN SHIELDS self
--- OUTSIDE RECORDS SUMMARY | 2020-07-21 15:36 | CCD ---
Author Author [facility] Organization [facility] Address Unknown Phone Unavailable Care Team Providers Care City Plant Supervisor Name Role Phone Jeremy Fatima MD Unavailable Unavailable Jeremy Fatima MD Unavailable Unavailable Jeremy Fatima MD Unavailable Unavailable Jeremy Fatima MD Unavailable Unavailable Jeremy Fatima MD Unavailable Unavailable Jeremy Fatima MD Unavailable Unavailable Jeremy Fatima MD Unavailable Unavailable Jeremy Fatima MD Unavailable Unavailable Jeremy Fatima MD Unavailable Unavailable Jeremy Fatima MD Unavailable Unavailable Jeremy Fatima MD Unavailable Unavailable Jeremy Fatima MD Unavailable Unavailable Jeremy Fatima MD Unavailable Unavailable Jeremy Fatima MD Unavailable Unavailable Jeremy Fatima MD Unavailable Unavailable Jeremy Fatima MD Unavailable Unavailable Jeremy Fatima MD Unavailable Unavailable Jeremy Fatima MD Unavailable Unavailable Jeremy Fatima MD Unavailable Unavailable Jeremy Fatima MD Unavailable Unavailable Jeremy Fatima MD Unavailable Unavailable Lisa, Ruban Unavailable Unavailable Lisa, Ruban Unavailable Unavailable Lisa, Ruban Unavailable Unavailable Lisa, Ruban Unavailable Unavailable Lisa, Ruban Unavailable Unavailable Lisa, Ruban Unavailable Unavailable Lisa, Ruban Unavailable Unavailable Lisa, Ruban Unavailable Unavailable Lisa, Ruban Unavailable Unavailable Lisa, Ruban Unavailable Unavailable Lisa, Ruban Unavailable Unavailable Lisa, Ruban Unavailable Unavailable Lisa, Ruban Unavailable Unavailable Lisa, Ruban Unavailable Unavailable Lisa, Ruban Unavailable Unavailable Lisa, Ruban Unavailable Unavailable Lisa, Ruban Unavailable Unavailable Lisa, Ruban Unavailable Unavailable Lisa, Ruban Unavailable Unavailable Lisa, Ruban Unavailable Unavailable Lisa, Ruban Unavailable Unavailable Lisa, Ruban Unavailable Unavailable Lisa, Ruban Unavailable Unavailable Lisa, Ruban Unavailable Unavailable Lisa, Ruban Unavailable Unavailable Lisa, Ruban Unavailable Unavailable Lisa, Ruban Unavailable Unavailable Lisa, Ruban Unavailable Unavailable Lisa, Ruban Unavailable Unavailable Lisa, Ruban Unavailable Unavailable Lisa, Ruban Unavailable Unavailable Lisa, Ruban Unavailable Unavailable Lisa, Ruban Unavailable Unavailable Lisa, Ruban Unavailable Unavailable Lisa, Ruban Unavailable Unavailable Lisa, Ruban Unavailable Unavailable Lisa, Ruban Unavailable Unavailable Lisa, Ruban Unavailable Unavailable Lisa, Ruban Unavailable Unavailable Lisa, Ruban Unavailable Unavailable Lisa, Ruban Unavailable Unavailable Spenser, L Jessie PA Unavailable Unavailable Spenser, L Jessie PA Unavailable Unavailable Spenser, L Jessie PA Unavailable Unavailable Spenser, L Jessie PA Unavailable Unavailable Spenser, L Jessie PA Unavailable Unavailable Spenser, L Jessie PA Unavailable Unavailable Spenser, L Jessie PA Unavailable Unavailable Spenser, L Jessie PA Unavailable Unavailable Spenser, L Jessie PA Unavailable Unavailable Spenser, L Jessie PA Unavailable Unavailable Spenser, L Jessie PA Unavailable Unavailable Spenser, L Jessie PA Unavailable Unavailable Spenser, L Jessie PA Unavailable Unavailable Spenser, L Jessie PA Unavailable Unavailable Spenser, L Jessie PA Unavailable Unavailable Spenser, L Jessie PA Unavailable Unavailable Spenser, L Jessie PA Unavailable Unavailable Spenser, L Jessie PA Unavailable Unavailable Spenser, L Jessie PA Unavailable Unavailable Spenser, L Jessie PA Unavailable Unavailable Spenser, L Jessie PA Unavailable Unavailable Spenser, L Jessie PA Unavailable Unavailable Spenser, L Jessie PA Unavailable Unavailable GENA, SATYA PA Unavailable Unavailable GENA, SATYA PA Unavailable Unavailable GENA, SATYA PA Unavailable Unavailable GENA, SATYA PA Unavailable Unavailable GENA, SATYA PA Unavailable Unavailable GENA, SATYA PA Unavailable Unavailable GENA, SATYA PA Unavailable Unavailable GENA, SATYA PA Unavailable Unavailable GENA, SATYA PA Unavailable Unavailable GENA, SATYA PA Unavailable Unavailable GENA, SATYA PA Unavailable Unavailable GENA, SATYA PA Unavailable Unavailable GENA, SATYA PA Unavailable Unavailable GENA, SATYA PA Unavailable Unavailable GENA, SATYA PA Unavailable Unavailable GENA, SATYA PA Unavailable Unavailable GENA, SATYA PA Unavailable Unavailable GENA, SATYA PA Unavailable Unavailable GENA, SATYA PA Unavailable Unavailable GENA, SATYA PA Unavailable Unavailable GENA, SATYA PA Unavailable Unavailable GENA, SATYA PA Unavailable Unavailable GENA, SATYA PA Unavailable Unavailable GENA, SATYA PA Unavailable Unavailable GENA, SATYA PA Unavailable Unavailable GENA, SATYA PA Unavailable Unavailable GENA, SATYA PA Unavailable Unavailable GENA, SATYA PA Unavailable Unavailable GENA, SATYA PA Unavailable Unavailable GENA, SATYA PA Unavailable Unavailable GENA, SATYA PA Unavailable Unavailable GENA, SATYA PA Unavailable Unavailable GENA, SATYA PA Unavailable Unavailable GENA, SATYA PA Unavailable Unavailable GENA, SATYA PA Unavailable Unavailable REINDL, RACHEL WRIGHT Unavailable Unavailable REINDL, RACHEL WRIGHT Unavailable Unavailable REINDL, RACHEL WRIGHT Unavailable Unavailable REINDL, RACHEL WRIGHT Unavailable Unavailable REINDL, RACHEL WRIGHT Unavailable Unavailable REINDL, RACHEL WRIGHT Unavailable Unavailable REINDL, RACHEL WRIGHT Unavailable Unavailable REINDL, RACHEL WRIGHT Unavailable Unavailable REINDL, RACHEL WRIGHT Unavailable Unavailable REINDL, RACHEL WRIGHT Unavailable Unavailable REINDL, RACHEL WRIGHT Unavailable Unavailable REINDL, RACHEL WRIGHT Unavailable Unavailable REINDL, RACHEL WRIGHT Unavailable Unavailable REINDL, RACHEL WRIGHT Unavailable Unavailable REINDL, RACHEL WRIGHT Unavailable Unavailable REINDL, RACHEL WRIGHT Unavailable Unavailable REINDL, RACHEL WRIGHT Unavailable Unavailable REINDL, RACHEL WRIGHT Unavailable Unavailable REINDL, RACHEL WRIGHT Unavailable Unavailable REINDL, RACHEL WRIGHT Unavailable Unavailable REINDL, RACHEL WRIGHT Unavailable Unavailable REINDL, RACHEL WRIGHT Unavailable Unavailable REINDL, RACHEL WRIGHT Unavailable Unavailable REINDL, RACHEL WRIGHT Unavailable Unavailable REINDL, RACHEL WRIGHT Unavailable Unavailable REINDL, RACHEL WRIGHT Unavailable Unavailable REINDL, RACHEL WRIGHT Unavailable Unavailable REINDL, RACHEL WRIGHT Unavailable Unavailable REINDL, RACHEL WRIGHT Unavailable Unavailable REINDL, RACHEL WRIGHT Unavailable Unavailable REINDL, RACHEL WRIGHT Unavailable Unavailable REINDL, RACHEL WRIGHT Unavailable Unavailable REINDL, RACHEL WRIGHT Unavailable Unavailable REINDL, RACHEL WRIGHT Unavailable Unavailable REINDL, RACHEL WRIGHT Unavailable Unavailable REINDL, RACHEL WRIGHT Unavailable Unavailable REINDL, RACHEL WRIGHT Unavailable Unavailable REINDL, RACHEL WRIGHT Unavailable Unavailable REINDL, RACHEL WRIGHT Unavailable Unavailable REINDL, RACHEL WRIGHT Unavailable Unavailable REINDL, RACHEL WRIGHT Unavailable Unavailable REINDL, RACHEL WRIGHT Unavailable Unavailable Chase, L Antonella MACHINE WORKER Unavailable Unavailable Chase, L Antonella MACHINE WORKER Unavailable Unavailable Chase, L Antonella MACHINE WORKER Unavailable Unavailable Chase, L Antonella MACHINE WORKER Unavailable Unavailable Chase, L Antonella MACHINE WORKER Unavailable Unavailable Chase, L Antonella MACHINE WORKER Unavailable Unavailable Chase, L Antonella MACHINE WORKER Unavailable Unavailable Chase, L Antonella MACHINE WORKER Unavailable Unavailable Chase, L Antonella MACHINE WORKER Unavailable Unavailable Chase, L Antonella MACHINE WORKER Unavailable Unavailable Chase, L Antonella MACHINE WORKER Unavailable Unavailable Chase, L Antonella MACHINE WORKER Unavailable Unavailable Chase, L Antonella MACHINE WORKER Unavailable Unavailable Chase, L Antonella MACHINE WORKER Unavailable Unavailable Chase, L Antonella MACHINE WORKER Unavailable Unavailable Chase, L Antonella MACHINE WORKER Unavailable Unavailable Chase, L Antonella MACHINE WORKER Unavailable Unavailable Chase, L Antonella MACHINE WORKER Unavailable Unavailable Chase, L Antonella MACHINE WORKER Unavailable Unavailable Chase, L Antonella MACHINE WORKER Unavailable Unavailable Chase, L Antonella MACHINE WORKER Unavailable Unavailable Chase, L Antoenlla MACHINE WORKER Unavailable Unavailable Re-disclosure Warning The records that you are about to access may contain information from federally-assisted alcohol or drug abuse programs. If such information is present, then the following federally mandated warning applies: This information has been disclosed to you from records protected by federal confidentiality rules (42 CFR part 2). The federal rules prohibit you from making any further disclosure of this information unless further disclosure is expressly permitted by the written consent of the person to whom it pertains or as otherwise permitted by 42 CFR part 2. A general authorization for the release of medical or other information is NOT sufficient for this purpose. The Federal rules restrict any use of the information to criminally investigate or prosecute any alcohol or drug abuse patient.The records that you are about to access may contain highly sensitive health information, the redisclosure of which is protected by Article 27-F of the [place] Public Health law. If you continue you may have access to information: Regarding HIV / AIDS; Provided by facilities licensed or operated by the [facility] Office of Mental Health; or Provided by the [facility] Office for People With Developmental Disabilities. If such information is present, then the following [facility] mandated warning applies: This information has been disclosed to you from confidential records which are protected by state law. State law prohibits you from making any further disclosure of this information without the specific written consent of the person to whom it pertains, or as otherwise permitted by law. Any unauthorized further disclosure in violation of state law may result in a fine or half-way sentence or both. A general authorization for the release of medical or other information is NOT sufficient authorization for further disc losure. Allergies and Adverse Reactions Type Description Substance Reaction Status Data Source(s ) Drug allergy Cefdinir cefdinir Tongue tingling Active eCW1 ( [facility]) Drug allergy Augmentin amoxicillin / clavulanate Unknown Active eCW1 ([facility]) Drug allergy Pseudoephedrine HCl Pseudoephedrine hospitalized for hypertensive urgency Active eCW1 ([facility]) platinum platinum platinum Anaphylaxis Active eCW1 ([facility]) platinum platinum platinum Anaphylaxis Active eCW1 ([facility]) platinum platinum platinum Anaphylaxis Active eCW1 ([facility]) platinum platinum platinum Anaphylaxis Active eCW1 ([facility]) Family History Family Member Name Family Member Gender Family Member Status Date o f Status Description Data Source(s) Unknown Male Problem MEDENT ([facility]) Unknown Unknown Problem MEDENT ([facility] ) Unknown Unknown Problem MEDENT ([facility] ) Unknown Unknown Problem MEDENT ([facility] ) Unknown Female Problem MEDENT ([facility]) Unknown Female Problem MEDENT ([facility]) Encounters Encounter Providers Location Date Indications Data Source(s ) Outpatient Attender: SATYA ANDERSON 11/01/2020 12:00:0 0 AM [facility] Outpatient Attender: Evan Gonzalez 08/03/2020 12:00:00 AM [facility] [place] [address] [address] 07/20/2020 12:00:00 AM EST eCW1 ([facility]) [place] [address] [address] 07/20/2020 12:00:00 AM EST eCW1 ([facility]) [place] [address] [address] 07/13/2020 12:00:00 AM EST eCW1 ([facility]) [place] [address] [address] 07/13/2020 12:00:00 AM EST eCW1 ([facility]) [place] [address] [address] 07/11/2020 12:00:00 AM EST eCW1 ([facility]) [place] [address] [address] 07/11/2020 12:00:00 AM EST eCW1 ([facility]) [place] [address] [address] 07/10/2020 12:00:00 AM EST eCW1 ([facility]) [place] [address] [address] 07/05/2020 12:00:00 AM EST eCW1 ([facility]) [place] [address] [address] 07/04/2020 12:00:00 AM EST eCW1 ([facility]) [place] [address] [address] 06/15/2020 12:00:00 AM EST eCW1 ([facility]) [place] [address] [address] 06/09/2020 12:00:00 AM EST eCW1 ([facility]) [place] [address] [facility] [place] [address] 06/08/2020 12:00:00 AM EST eCW1 ([facility]) [place] [address] [facility] [address] 05/26/2020 12:00:00 AM EST eCW1 ([facility]) [place] [address] [facility] [place] [address] 05/24/2020 12:00:00 AM EST eCW1 ([facility]) Outpatient Attender: Jessie ANDERSON Main Office 05/12/2020 07:15:0 0 AM EST MEDENT ([facility]) Outpatient Attender: SATYA ANDERSON [id number] 12:00:00 AM EDT - 04/20/2020 12:42:09 PM EDT Type 2 diabetes mellitus with hyperglycemia [facility] Type 2 diabetes mellitus with hyperglyce starla Outpatient Attender: Antonella Madera/Clarisa/Yasmany/Reinleif 03/30/2020 10:00:00 AM EDT MEDENT ([facility]) Outpatient Attender: Evan Gonzalez 01/27/2020 12:00:00 AM EDT [facility] Outpatient Attender: Jessie ANDERSON Main Office 12/03/2019 09:45:0 0 AM EDT MEDENT ([facility]) [address] [address] 11/30/2019 12:00:00 AM EDT [facility] Outpatient Referrer: Tristan Fatima MD 11/26/2019 05:14:00 AM EDT [facility] [address] [address] 11/25/2019 12:00:00 AM EDT [facility] [address] [address] 11/24/2019 12:00:00 AM EDT eCW1 ([facility] [address] [address] 11/22/2019 12:00:00 AM EDT eCW1 ([facility] [address] [place] [address] 11/22/2019 12:00:00 AM EDT eCW1 ([facility] [address] [address] 11/19/2019 12:00:00 AM EDT eCW1 ([facility] [address] [address] 11/17/2019 12:00:00 AM EDT eCW1 [facility]) Outpatient Attender: Antonella Madera/Clarisa/Yasmany/Cande 11/02/2019 10:30:00 AM EDT MEDENT ([facility]) Outpatient Attender: SATYA [id number] 12:00:00 AM EDT - 10/28/2019 12:30:32 PM EDT Type 2 diabetes mellitus with hyperglycemia [facility] Type 2 diabetes mellitus with hyperglyce starla [address] [address] 10/12/2019 12:00:00 AM EDT eCW1 ([facility]) Outpatient Attender: Antonella Stone NP Main Office 09/16/2019 10:00:00 AM EDT MEDENT ([facility] Outpatient Referrer: Tristan Fatima MD 09/09/2019 11:44:00 AM EST [facility] [address] [address] 08/27/2019 12:00:00 AM EST eCW1 ([facility]) [address] [address] 08/12/2019 12:00:00 AM EST eCW1 ([facility]) Outpatient Referrer: Tristan Fatima MD 07/29/2019 09:04:00 PM EST [facility] Outpatient Attender: SATYA ANDERSON [id number] 12:00:00 AM EST - 07/28/2019 10:49:43 AM EST Type 2 diabetes mellitus with hyperglycemia [facility] Type 2 diabetes mellitus with hyperglyce starla [address], [facility] [address] 07/19/2019 12:00:00 AM EST eCW1 ([facility]) [address] [address] 07/16/2019 12:00:00 AM EST eCW1 ([facility]) Outpatient Attender: RACHEL Madera/Clarisa/Yasmany/Singh yadav 07/14/2019 10:00:00 AM EST MEDENT ([facility]) [facility] Hannah [address], [facility] [address] 07/13/2019 12:00:00 AM EST eCW1 ([facility]) Outpatient Attender: Jessie ANDERSON Main Office 07/09/2019 10:30:0 0 AM EST MEDENT ([facility]) [facility] GME Resident [address] [place] [address] 06/02/2019 12:00:00 AM EST eCW1 ([facility]) Medications Medication Brand Name Start Date Product Form Dose Route Admi nistrative Instructions Pharmacy Instructions Status Indications Reaction Description Data Source(s) 50 mg 07/19/2020 12:00:00 AM EST tablet 9 TAKE ONE TABLET BY MOUTH EVERY 8 HOURS NEEDED FOR MODERATE PAIN (PS 5-7) MAXIMUM DAILY DOSE = 3 TABLETS TAKE ONE TABLET BY MOUTH EVERY 8 HOURS NEEDED FOR MODERATE PAIN (PS 5-7) MAXIMUM DAILY DOSE = 3 TABLETS SOLD: 07/19/2020 [facility] 20-100 mcg/actuation 07/19/2020 12:00:00 AM EST mist 4 INHALE 2 PUFFS BY MOUTH THREE TIMES A DAY INHALE 2 PUFFS BY MOUTH THREE TIMES A DAY SOLD: 07/19/2020 [facility] 125 mg 07/18/2020 12:00:00 AM EST capsule 36 TAKE ONE CAPSULE BY MOUTH FOUR TIMES A DAY TAKE ONE CAPSULE BY MOUTH FOUR TIMES A DAY SOLD: 07/19/2020 [facility] 750 mg 07/12/2020 12:00:00 AM EST tablet 7 TAKE ONE TABLET BY MOUTH EVERY DAY TAKE ONE TABLET BY MOUTH EVERY DAY SOLD: 07/12/2020 [facility] 90 mcg/actuation 07/12/2020 12:00:00 AM EST HFA aerosol inha ler 8 USE 2 PUFFS BY MOUTH EVERY 6 HOURS NEEDED FOR SHORTNESS OF BREATH / COUGH USE 2 PUFFS BY MOUTH EVERY 6 HOURS NEEDED FOR SHORTNESS OF BREATH / COUGH SOLD: 07/12/2020 [facility] benzonatate 100 MG Oral Capsule BENZONATATE 07/12/2020 12:00:00 AM EST capsule 30 TAKE ONE CAPSULE BY MOUTH THREE TIMES A DAY FOR COUGH TAKE ONE CAPSULE BY MOUTH THREE TIMES A DAY FOR COUGH SOLD: 07/12/2020 [facility] 125 mg 07/04/2020 12:00:00 AM EST capsule 40 TAKE ONE CAPSULE BY MOUTH FOUR TIMES A DAY TAKE ONE CAPSULE BY MOUTH FOUR TIMES A DAY SOLD: 07/04/2020 [facility] 10 mg 07/04/2020 12:00:00 AM EST capsule 20 TAKE ONE CAPSULE BY MOUTH EVERY 6 HOURS NEEDED IRRIATBLE BOWEL SYMPTOM TAKE ONE CAPSULE BY MOUTH EVERY 6 HOURS NEEDED IRRIATBLE BOWEL SYMPTOM SOLD: 07/04/2020 [facility] 2 mg 07/04/2020 12:00:00 AM EST capsule 20 TAKE ONE CAPSULE BY MOUTH FOUR TIMES A DAY TAKE ONE CAPSULE BY MOUTH FOUR TIMES A DAY SOLD: 07/04/2020 [facility] Metronidazole 500 MG Oral Tablet METRONIDAZOLE 06/06/2020 12:0 0:00 AM EST tablet 30 TAKE ONE TABLET BY MOUTH THREE T IMES A DAY TAKE ONE TABLET BY MOUTH THREE TIMES A DAY SOLD: 06/06/2020 [facility] 500 mg 06/06/2020 12:00:00 AM EST tablet 14 TAKE ONE TABLET BY MOUTH TWICE A DAY TAKE ONE TABLET BY MOUTH TWICE A DAY SOLD: 06/06/2020 [facility] 4 mg 06/05/2020 12:00:00 AM EST tablet,disintegrating 8 DISSOLVE 1 TABLET BY MOUTH EVERY 6 TO 8 HOURS NEEDED FOR NAUSEA AND VOMITING DISSOLVE 1 TABLET BY MOUTH EVERY 6 TO 8 HOURS NEEDED FOR NAUSEA AND VOMITING SOLD: 06/06/2020 [facility] Cholecalciferol 2000 UNT Oral Capsule Vitamin D3 05/11/2020 12:00:00 AM EST ORAL active MEDENT ([facility]) 100 unit/mL 04/30/2020 12:00:00 AM EDT insulin pen 45 INJECT SUBCUTANEOUSLY DAILY PER INSULIN ORDERS MAXIMUM DAILY DOSE = 140 UNITS WITH TITRATION AND PRIMING INJECT SUBCUTANEOUSLY DAILY PER INSULIN ORDERS MAXIMUM DAILY DOSE = 140 UNITS WITH TITRATION AND PRIMING SOLD: 06/26/2020 [facility] 100 unit/mL 04/30/2020 12:00:00 AM EDT insulin pen 30 INJECT SUBCUTANEOUSLY DAILY PER INSULIN ORDERS MAXIMUM DAILY DOSE = 140 UNITS WITH TITRATION AND PRIMING INJECT SUBCUTANEOUSLY DAILY PER INSULIN ORDERS MAXIMUM DAILY DOSE = 140 UNITS WITH TITRATION AND PRIMING SOLD: 04/30/2020 [facility] 100 unit/mL 04/30/2020 12:00:00 AM EDT insulin pen 45 INJECT SUBCUTANEOUSLY DAILY PER INSULIN ORDERS MAXIMUM DAILY DOSE = 140 UNITS WITH TITRATION AND PRIMING INJECT SUBCUTANEOUSLY DAILY PER INSULIN ORDERS MAXIMUM DAILY DOSE = 140 UNITS WITH TITRATION AND PRIMING SOLD: 05/26/2020 [facility] 100 unit/mL (3 mL) 04/25/2020 12:00:00 AM EDT insulin pen 45 INJECT 60 UNITS EVERY MORNING AND 60 UNITS IN THE EVENING MAXIMUM DAILY DOSE = 144 UNITS INJECT 60 UNITS EVERY MORNING AND 60 UNITS IN THE EVENING MAXIMUM DAILY DOSE = 144 UNITS SOLD: 04/30/2020 [facility] 100 unit/mL (3 mL) 04/25/2020 12:00:00 AM EDT insulin pen 45 INJECT 60 UNITS EVERY MORNING AND 60 UNITS IN THE EVENING MAXIMUM DAILY DOSE = 144 UNITS INJECT 60 UNITS EVERY MORNING AND 60 UNITS IN THE EVENING MAXIMUM DAILY DOSE = 144 UNITS SOLD: 06/06/2020 [facility] 100 unit/mL (3 mL) 04/25/2020 12:00:00 AM EDT insulin pen 45 INJECT 60 UNITS EVERY MORNING AND 60 UNITS IN THE EVENING MAXIMUM DAILY DOSE = 144 UNITS INJECT 60 UNITS EVERY MORNING AND 60 UNITS IN THE EVENING MAXIMUM DAILY DOSE = 144 UNITS SOLD: 07/04/2020 [facility] Cholecalciferol 4000 UNT Oral Capsule Ch olecalciferol 100 MCG (4000 UT) Oral Capsule Cholecalciferol 100 MCG (4000 UT) Oral Capsule 12:00:00 AM EDT 1 {capsule} Oral active Take 1 capsu le by mouth daily [facility] 0.4 mg 04/20/2020 12:00:00 AM EDT tablet, sublingual [address] ONE TABLET UNDER THE TONGUE EVERY 5 MINUTES FOR UP TO 3 DOSES NEEDED FOR CHEST PAIN. IF CHEST PAIN STILL PERSISTS CONTACT [address] ONE TABLET UNDER THE TONGUE EVERY 5 MINUTES FOR UP TO 3 DOSES NEEDED FOR CHEST PAIN. IF CHEST PAIN STILL PERSISTS CONTACT 911 SOLD: 07/19/2020 [facility] atorvastatin 40 MG Oral Tablet Atorvastatin Calcium 40 MG Oral Tablet (LIPITOR) Atorvastatin Calcium 40 MG Oral Tablet (LIPITOR) 04/20/2020 12:00:00 AM EDT active [facility] 3 ML Insulin, Aspart, Human 100 UNT/ML P en Injector [NovoLog] NovoLOG FlexPen 100 UNIT/ML Subcutaneous Solution Pen-injector (insulin aspart) NovoLOG FlexPen 100 UNIT/ML Subcutaneous Solution Pen-injector (insulin aspart) 04/20/2020 12:00:00 AM EDT active Type 2 diabetes mellitus with hyperglycemia, with long-term current use of insulin Inject subq malik y per insulin orders. MDD 140 units with titration and priming. Dx: E11.65. [facility] Type 2 diabetes mellitus with hyperglyce starla, with long-term current use of insulin FreeStyle Shabbir 14 Day Sensor [address]-04 04/20/2020 12:00:00 AM EDT active Type 2 diabetes mellitus with hyperglyce starla, with long-term current use of insulin Use as directed. Change every 14 days. Dx: E11.65 [facility] Type 2 diabetes mellitus with hyperglyce starla, with long-term current use of insulin 3 ML insulin detemir 100 UNT/ML Pen Inje ctor [Levemir] Levemir FlexTouch 100 UNIT/ML Subcutaneous Solution Pen-injector (insulin detemir) Levemir FlexTouch 100 UNIT/ML Subcutaneous Solution Pen-injector (insulin detemir) 04/20/2020 12:00:00 AM EDT active Type 2 diabetes mellitus with hyperglycemia, with long-term current use of insulin Inject 60 units, QAM and 60 units QPM, Max Daily Dose: 144 units inclusive of priming and titiration. Dx code: E11.65 [facility] Type 2 diabetes mellitus with hyperglyce starla, with long-term current use of insulin OneTouch Ze[employer]at [address] [id number] 04/20/2020 12:00:00 AM EDT active Type 2 diabetes mellitus with hyperglyce starla, with long-term current use of insulin Use to test blood sugar up to 4 times da adeola. Dx: e11.65 [facility] Type 2 diabetes mellitus with hyperglyce starla, with long-term current use of insulin 0.5 ML dulaglutide 3 MG/ML Auto-Injector [Trulicity] Trulicity 1.5 MG/0.5ML Subcutaneous Solution Pen-injector (dulaglutide) Trulicity 1.5 MG/0.5ML Subcutaneous Solution Pen-injector (dulaglutide) 04/20/2020 12:00:00 AM EDT 1.5 mg Subcutaneous active Type 2 diabetes mellitus with hyperglycemia, with long-term current use of insulin Inject 0.5 [address] the sk in once a week [facility] Type 2 diabetes mellitus with hyperglyce starla, with long-term current use of insulin 0.4 mg 04/20/2020 12:00:00 AM EDT tablet, sublingual [address]ACE ONE TABLET UNDER THE TONGUE EVERY 5 MINUTES FOR UP TO 3 DOSES NEEDED FOR CHEST PAIN. IF CHEST PAIN STILL PERSISTS CONTACT [address] ONE TABLET UNDER THE TONGUE EVERY 5 MINUTES FOR UP TO 3 DOSES NEEDED FOR CHEST PAIN. IF CHEST PAIN STILL PERSISTS CONTACT 911 SOLD: 05/26/2020 [facility] atorvastatin 40 MG Oral Tablet ATORVASTATIN CALCIUM 04/20/2020 1 2:00:00 AM EDT tablet 30 TAKE 1 TABLET BY MOUTH AT BEDTIME TAKE 1 TABLET BY MOUTH AT BEDTIME SOLD: 06/26/2020 [facility] atorvastatin 40 MG Oral Tablet ATORVASTATIN CALCIUM 04/20/2020 1 2:00:00 AM EDT tablet 30 TAKE 1 TABLET BY MOUTH AT BEDTIME TAKE 1 TABLET BY MOUTH AT BEDTIME SOLD: 05/26/2020 [facility] 0.4 mg 04/20/2020 12:00:00 AM EDT tablet, sublingual [address]ACE ONE TABLET UNDER THE TONGUE EVERY 5 MINUTES FOR UP TO 3 DOSES NEEDED FOR CHEST PAIN. IF CHEST PAIN STILL PERSISTS CONTACT [address] ONE TABLET UNDER THE TONGUE EVERY 5 MINUTES FOR UP TO 3 DOSES NEEDED FOR CHEST PAIN. IF CHEST PAIN STILL PERSISTS CONTACT 911 SOLD: 06/26/2020 [facility] atorvastatin 40 MG Oral Tablet ATORVASTATIN CALCIUM 04/20/2020 1 2:00:00 AM EDT tablet 30 TAKE 1 TABLET BY MOUTH AT BEDTIME TAKE 1 TABLET BY MOUTH AT BEDTIME SOLD: 04/24/2020 [facility] 0.4 mg 04/20/2020 12:00:00 AM EDT tablet, sublingual 75 [address]ACE ONE TABLET UNDER THE TONGUE EVERY 5 MINUTES FOR UP TO 3 DOSES NEEDED FOR CHEST PAIN. IF CHEST PAIN STILL PERSISTS CONTACT [address] ONE TABLET UNDER THE TONGUE EVERY 5 MINUTES FOR UP TO 3 DOSES NEEDED FOR CHEST PAIN. IF CHEST PAIN STILL PERSISTS CONTACT 911 SOLD: 04/24/2020 [facility] Losartan Potassium 100 MG Oral Tablet Lo sartan Potassium 100 MG Oral Tablet (COZAAR) Losartan Potassium 100 MG Oral Tablet (COZAAR) 10/14/2 020 12:00:00 AM EDT active [facility] Naproxen 500 MG Oral Tablet Naproxen 500 MG Oral Table t (NAPROSYN) Naproxen 500 MG Oral Tablet (NAPROSYN) 03/25/2020 12:00:00 AM EDT active TAKE ONE TABLET BY MOUTH EVERY 12 HOURS WITH FOOD OR MILK NEEDED [facility] Levothyroxine Sodium 0.125 MG Oral Table t Levothyroxine Sodium 125 MCG Oral Tablet (SYNTHROID) Levothyroxine Sodium 125 MCG Oral Tablet (SYNTHROID) 03/21/2020 12:00:00 AM EDT active Other specified hypothyroidism TAKE ONE TABLET BY MOUTH EVERY DAY [facility] Other specified hypothyroidism Cholecalciferol 1000 UNT Oral Tablet Vit olmedo D3 25 MCG (1000 UT) Oral Tablet (CHOLECALCIFEROL) Vitamin D3 25 MCG (1000 UT) Oral Tablet (CHOLECALCIFER OL) 03/21/2020 12:00:00 AM EDT aborted TAKE THREE TABLETS BY MOUTH EVERY DAY [facility] BD Pen Needle Original U/F 29G X 12.7MM (Insulin Pen Needle) [id number] 03/21/2020 12:00:00 AM EDT act [facility] Type 2 diabetes mellitus with hyperglycemia, with long-term current use of insulin U se as directed. INJECT DIRECTED UP TO 5 TIMES A DAY [facility] Type 2 diabetes mellitus with hyperglyce starla, with long-term current use of insulin CPAP 12/15/2019 12:00:00 AM EDT active [facility] ([facility]) Losartan Potassium 100 MG Oral Tablet Losartan Potassium 12:00:00 AM EDT ORAL active [facility] ([facility] 100 mg 12/03/2019 12:00:00 AM EDT tablet 90 TAKE ONE TABLET BY MOUTH EVERY DAY AT BEDTIME TAKE ONE TABLET BY MOUTH EVERY DAY AT BEDTIME SOLD: 12/06/2019 [facility] Cholecalciferol 1000 UNT Oral Capsule Vitamin D3 12/02/2019 12:00:00 AM EDT ORAL completed [facility] ([facility]) 10 mg 11/30/2019 12:00:00 AM EDT tablet 90 TAKE ONE TABLET BY MOUTH EVERY DAY TAKE ONE TABLET BY MOUTH EVERY DAY SOLD: 12/01/2019 [facility] Naproxen 500 MG Oral Tablet Naproxen 500 MG 11/24/2019 12:00:00 AM EDT active Naproxen 500 MG eCW1 ([facility]) Naproxen 500 MG Oral Tablet Naproxen 500 MG 11/24/2019 12:00:00 AM EDT active Naproxen 500 MG eCW1 ([facility]) tizanidine 4 MG Oral Tablet Tizanidine HCl 4 MG Tizanidine H Cl 4 MG 11/24/2019 12:00:00 AM EDT 1.0 {tablet_as_needed} active Tizanidine HCl 4 MG eCW1 ([facility]) Naproxen 500 MG Oral Tablet Naproxen 500 MG 11/24/2019 12:00:00 AM EDT active Naproxen 500 MG eCW1 ([facility]) tizanidine 4 MG Oral Tablet Tizanidine HCl 4 MG Tizanidine H Cl 4 MG 11/24/2019 12:00:00 AM EDT 1.0 {tablet_as_needed} active Tizanidine HCl 4 MG eCW1 ([facility]) Naproxen 500 MG Oral Tablet Naproxen 500 MG 11/24/2019 12:00:00 AM EDT active Naproxen 500 MG eCW1 ([facility]) tizanidine 4 MG Oral Tablet Tizanidine HCl 4 MG Tizanidine H Cl 4 MG 11/24/2019 12:00:00 AM EDT 1.0 {tablet_as_needed} active Tizanidine HCl 4 MG eCW1 ([facility]) Naproxen 500 MG Oral Tablet Naproxen 500 MG 11/24/2019 12:00:00 AM EDT active Naproxen 500 MG eCW1 ([facility]) Naproxen 500 MG Oral Tablet Naproxen 500 MG 11/24/2019 12:00:00 AM EDT suspended Naproxen 500 MG eCW1 ([facility]) tizanidine 4 MG Oral Tablet Tizanidine HCl 4 MG Tizanidine H Cl 4 MG 11/24/2019 12:00:00 AM EDT 1.0 {tablet_as_needed} active Tizanidine HCl 4 MG eCW1 ([facility]) tizanidine 4 MG Oral Tablet Tizanidine HCl 4 MG Tizanidine H Cl 4 MG 11/24/2019 12:00:00 AM EDT active 1 tablet as needed eCW1 ([facility]) Naproxen 500 MG Oral Tablet Naproxen 500 MG 11/24/2019 12:00:00 AM EDT active Naproxen 500 MG eCW1 ([facility]) tizanidine 4 MG Oral Tablet Tizanidine HCl 4 MG Tizanidine H Cl 4 MG 11/24/2019 12:00:00 AM EDT 1.0 {tablet_as_needed} active Tizanidine HCl 4 MG eCW1 ([facility]) Naproxen 500 MG Oral Tablet Naproxen 500 MG 11/24/2019 12:00:00 AM EDT active Naproxen 500 MG eCW1 ([facility]) tizanidine 4 MG Oral Tablet Tizanidine HCl 4 MG Tizanidine H Cl 4 MG 11/24/2019 12:00:00 AM EDT 1.0 {tablet_as_needed} active Tizanidine HCl 4 MG eCW1 ([facility]) Naproxen 500 MG Oral Tablet Naproxen 500 MG 11/24/2019 12:00:00 AM EDT suspended Naproxen 500 MG eCW1 ([facility]) Naproxen 500 MG Oral Tablet Naproxen 500 MG 11/24/2019 12:00:00 AM EDT active 1 tablet with food or milk a s needed eCW1 ([facility]) tizanidine 4 MG Oral Tablet Tizanidine HCl 4 MG Tizanidine H Cl 4 MG 11/24/2019 12:00:00 AM EDT 1.0 {tablet_as_needed} active Tizanidine HCl 4 MG eCW1 ([facility]) Naproxen 500 MG Oral Tablet Naproxen 500 MG 11/24/2019 12:00:00 AM EDT active Naproxen 500 MG eCW1 ([facility]) Naproxen 500 MG Oral Tablet Naproxen 500 MG 11/24/2019 12:00:00 AM EDT active Naproxen 500 MG eCW1 ([facility]) tizanidine 4 MG Oral Tablet Tizanidine HCl 4 MG Tizanidine H Cl 4 MG 11/24/2019 12:00:00 AM EDT 1.0 {tablet_as_needed} active Tizanidine HCl 4 MG eCW1 ([facility]) tizanidine 4 MG Oral Tablet Tizanidine HCl 4 MG Tizanidine H Cl 4 MG 11/24/2019 12:00:00 AM EDT 1.0 {tablet_as_needed} active Tizanidine HCl 4 MG eCW1 ([facility]) tizanidine 4 MG Oral Tablet Tizanidine HCl 4 MG Tizanidine H Cl 4 MG 11/24/2019 12:00:00 AM EDT 1.0 {tablet_as_needed} active Tizanidine HCl 4 MG eCW1 ([facility]) tizanidine 4 MG Oral Tablet Tizanidine HCl 4 MG Tizanidine H Cl 4 MG 11/24/2019 12:00:00 AM EDT 1.0 {tablet_as_needed} suspended Tizanidine HCl 4 MG eCW1 ([facility]) tizanidine 4 MG Oral Tablet Tizanidine HCl 4 MG Tizanidine H Cl 4 MG 11/24/2019 12:00:00 AM EDT 1.0 {tablet_as_needed} active Tizanidine HCl 4 MG eCW1 ([facility]) tizanidine 4 MG Oral Tablet Tizanidine HCl 4 MG Tizanidine H Cl 4 MG 11/24/2019 12:00:00 AM EDT 1.0 {tablet_as_needed} active Tizanidine HCl 4 MG eCW1 ([facility]) Naproxen 500 MG Oral Tablet Naproxen 500 MG 11/24/2019 12:00:00 AM EDT active Naproxen 500 MG eCW1 ([facility]) tizanidine 4 MG Oral Tablet Tizanidine HCl 4 MG Tizanidine H Cl 4 MG 11/24/2019 12:00:00 AM EDT 1.0 {tablet_as_needed} suspended Tizanidine HCl 4 MG eCW1 ([facility]) Naproxen 500 MG Oral Tablet Naproxen 500 MG 11/24/2019 12:00:00 AM EDT active Naproxen 500 MG eCW1 ([facility]) Naproxen 500 MG Oral Tablet Naproxen 500 MG 11/24/2019 12:00:00 AM EDT active Naproxen 500 MG eCW1 ([facility]) FLASH GLUCOSE SENSOR 11/23/2019 12:00:00 AM EDT kit 2 USE DIRECTED, CHANGE EVERY 14 DAYS USE DIRECTED, CHANGE EVERY 14 DAYS SOLD: 11/23/2019 [facility] [employer] Shabbir 14 Day Sensor [id number] 11/23/2019 12:00:00 AM EDT aborted Type 2 diabetes mellitus with hyperglyce starla, with long-term current use of insulin Use as directed. Change every 14 days. Dx: E11.65 [facility] Type 2 diabetes mellitus with hyperglyce starla, with long-term current use of insulin 20 mg 11/21/2019 12:00:00 AM EDT tablet 30 TAKE 1 TABLET BY MOUTH ONCE DAILY IN THE MORNING TAKE 1 TABLET BY MOUTH ONCE DAILY IN THE MORNING SOLD: 02/01/2020 [facility] 20 mg 11/21/2019 12:00:00 AM EDT tablet 30 TAKE 1 TABLET BY MOUTH ONCE DAILY IN THE MORNING TAKE 1 TABLET BY MOUTH ONCE DAILY IN THE MORNING SOLD: 11/23/2019 [facility] Baclofen 10 MG Oral Tablet Baclofen 10 MG Oral Tablet (LIORESAL) Baclofen 10 MG Oral Tablet (LIORESAL) 11/18/2019 12:00:00 AM EDT active TAKE ONE TABLET BY MOUTH THREE TIMES A DAY NEEDED FOR MUSCLE SPASMS [facility] 10 mg 11/18/2019 12:00:00 AM EDT tablet 21 TAKE ONE TABLET BY MOUTH THREE TIMES A DAY NEEDED FOR MUSCLE SPASMS TAKE ONE TABLET BY MOUTH THREE TIMES A DAY NEEDED FOR MUSCLE SPASMS SOLD: 11/18/2019 [facility] 29 gauge x 1/2" 11/02/2019 12:00:00 AM EDT needle 150 USE DIRECTED UP TO 5 TIMES A DAY USE DIRECTED UP TO 5 TIMES A DAY SOLD: 11/02/2019 [facility] Insulin Pen Needle 29G X 12.7MM (BD ULTRA-FINE PEN NEEDLES) [id number] 10/28/2019 12:00:00 AM EDT active Type 2 diabetes mellitus with hyperglycemia, with long-term current use of insulin Use as directed. DIRECTED UP TO 5 TIMES A DAY [facility] Type 2 diabetes mellitus with hyperglyce starla, with long-term current use of insulin 20 mg 10/27/2019 12:00:00 AM EDT tablet 30 TAKE ONE TABLET BY MOUTH EVERY DAY IN THE MORNING TAKE ONE TABLET BY MOUTH EVERY DAY IN THE MORNING SOLD : 11/02/2019 [facility] 0.5 ML dulaglutide 3 MG/ML Auto-Injector [Trulicity] Trulicity 1.5 MG/0.5ML Subcutaneous Solution Pen-injector (dulaglutide) Trulicity 1.5 MG/0.5ML Subcutaneous Solution Pen-injector (dulaglutide) 10/04/2019 12:00:00 AM EDT aborted Type 2 diabetes mellitus with hyperglycemia, with long-term current use of insulin INJECT 1.5MG WEEKLY [facility] Type 2 diabetes mellitus with hyperglyce starla, with long-term current use of insulin 1.5 mg/0.5 mL 10/01/2019 12:00:00 AM EDT pen injector 4 INJECT 1 PEN (1.5MG) ONCE WEEKLY INJECT 1 PEN (1.5MG) ONCE WEEKLY SOLD: 12/06/2019 [facility] 1.5 mg/0.5 mL 10/01/2019 12:00:00 AM EDT pen injector 4 INJECT 1 PEN (1.5MG) ONCE WEEKLY INJECT 1 PEN (1.5MG) ONCE WEEKLY SOLD: 10/01/2019 [facility] pantoprazole 40 MG Delayed Release Oral Tablet Pantoprazole Sodium 40 MG Oral Tablet Delayed Release (PROTONIX) Pantoprazole Sodium 40 MG Oral Tablet De layed Release (PROTONIX) 10/01/2019 12:00:00 AM EDT acti ve [facility] Losartan Potassium 50 MG Oral Tablet Los gavin Potassium 50 MG Oral Tablet (COZAAR) Losartan Potassium 50 MG Oral Tablet (COZAAR) 10/01/19 12:00:00 AM EDT aborted [facility] Terbinafine hydrochloride 10 MG/ML Topic al Cream SM Athletes Foot 1 % External Cream SM Athletes Foot 1 % External Cream 09/28/2019 12:00:00 AM EDT active [facility] Insulin Pen Needle 29G X 12.7MM (BD ULTRA-FINE PEN NEEDLES) [id number] 09/06/2019 12:00:00 AM EST aborted Type 2 diabetes mellitus with hyperglycemia, with long-term current use of insulin Use as directed. DIRECTED UP TO 5 TIMES A DAY [facility] Type 2 diabetes mellitus with hyperglyce starla, with long-term current use of insulin Ondansetron 4 MG Disintegrating Oral Tab let Ondansetron 4 MG Oral Tablet Disintegrating (ZOFRAN-ODT) Ondansetron 4 MG Oral Tablet Disintegrat ing (ZOFRAN-ODT) 09/04/2019 12:00:00 AM EST active [facility] 4 mg 09/04/2019 12:00:00 AM EST tablet,disintegrating 8 DISSOLVE ONE TABLET ON TONGUE EVERY 6 TO 8 HOURS NEEDED FOR NAUSEA AND VOMITING DISSOLVE ONE TABLET ON TONGUE EVERY 6 TO 8 HOURS NEEDED FOR NAUSEA AND VOMITING SOLD: 09/05/2019 [facility] 100 unit/mL (3 mL) 09/02/2019 12:00:00 AM EST insulin pen 45 INJECT 60 UNITS EVERY MORNING AND EVERY EVENING MAXIMUM DAILY DOSE = 144 UNITS INCLUSIVE OF PRIMING AND TITRATION INJECT 60 UNITS EVERY MORNING AND EVERY EVENING MAXIMUM DAILY DOSE = 144 UNITS INCLUSIVE OF PRIMING AND TITRATION SOLD: 12/01/2019 [facility] 100 unit/mL (3 mL) 09/02/2019 12:00:00 AM EST insulin pen 13 5 INJECT 60 UNITS EVERY MORNING AND EVERY EVENING MAXIMUM DAILY DOSE = 144 UNITS INCLUSIVE OF PRIMING AND TITRATION INJECT 60 UNITS EVERY MORNING AND EVERY EVENING MAXIMUM DAILY DOSE = 144 UNITS INCLUSIVE OF PRIMING AND TITRATION SOLD: 09/02/2019 [facility] Terbinafine HCl 1 % Terbinafine HCl 1 % 08/27/2019 12:00:00 AM EST suspended Terbinafine HCl 1 % eCW1 ([facility]) Terbinafine HCl 1 % Terbinafine HCl 1 % 08/27/2019 12:00:00 AM EST active Terbinafine HCl 1 % eCW1 ([facility]) Terbinafine HCl 1 % Terbinafine HCl 1 % 08/27/2019 12:00:00 AM EST active apply thick layer to groin eCW1 ([facility]) Terbinafine HCl 1 % Terbinafine HCl 1 % 08/27/2019 12:00:00 AM EST active Terbinafine HCl 1 % eCW1 ([facility]) Terbinafine HCl 1 % Terbinafine HCl 1 % 08/27/2019 12:00:00 AM EST active Terbinafine HCl 1 % eCW1 ([facility]) Terbinafine HCl 1 % Terbinafine HCl 1 % 08/27/2019 12:00:00 AM EST active Terbinafine HCl 1 % eCW1 ([facility]) Terbinafine hydrochloride 10 MG/ML Topical Cream Terbi nafine HCl 1 % Terbinafine HCl 1 % 08/27/2019 12:00:00 AM EST active apply thick layer to groin eCW1 ([facility]) 1 % 08/27/2019 12:00:00 AM EST cream 60 APPLY THICK LAYER TO GROIN THREE TIMES A DAY APPLY THICK LAYER TO GROIN THREE TIMES A DAY SOLD: 09/02/2019 [facility] Terbinafine HCl 1 % Terbinafine HCl 1 % 08/27/2019 12:00:00 AM EST active Terbinafine HCl 1 % eCW1 ([facility]) Terbinafine HCl 1 % Terbinafine HCl 1 % 08/27/2019 12:00:00 AM EST active Terbinafine HCl 1 % eCW1 ([facility]) Terbinafine HCl 1 % Terbinafine HCl 1 % 08/27/2019 12:00:00 AM EST active Terbinafine HCl 1 % eCW1 ([facility]) Terbinafine HCl 1 % Terbinafine HCl 1 % 08/27/2019 12:00:00 AM EST active apply thick layer to groin eCW1 ([facility]) Terbinafine HCl 1 % Terbinafine HCl 1 % 08/27/2019 12:00:00 AM EST active Terbinafine HCl 1 % eCW1 ([facility]) Terbinafine HCl 1 % Terbinafine HCl 1 % 08/27/2019 12:00:00 AM EST active Terbinafine HCl 1 % eCW1 ([facility]) Terbinafine HCl 1 % Terbinafine HCl 1 % 08/27/2019 12:00:00 AM EST active Terbinafine HCl 1 % eCW1 ([facility]) Terbinafine HCl 1 % Terbinafine HCl 1 % 08/27/2019 12:00:00 AM EST active Terbinafine HCl 1 % eCW1 ([facility]) Terbinafine HCl 1 % Terbinafine HCl 1 % 08/27/2019 12:00:00 AM EST active Terbinafine HCl 1 % eCW1 ([facility]) Terbinafine HCl 1 % Terbinafine HCl 1 % 08/27/2019 12:00:00 AM EST suspended Terbinafine HCl 1 % eCW1 ([facility]) 25 mcg (1,000 unit) 08/03/2019 12:00:00 AM EST tablet 90 TAKE THREE TABLETS BY MOUTH EVERY DAY TAKE THREE TABLETS BY MOUTH EVERY DAY SOLD: 09/02/2019 [facility] 25 mcg (1,000 unit) 08/03/2019 12:00:00 AM EST tablet 90 TAKE THREE TABLETS BY MOUTH EVERY DAY TAKE THREE TABLETS BY MOUTH EVERY DAY SOLD: 11/02/2019 [facility] 100 unit/mL (3 mL) 08/03/2019 12:00:00 AM EST insulin pen 15 6 INJECT UNDER THE SKIN DAILY PER INSULIN ORDERS MAXIMUM DAILY DOSE = 175 UNITS WITH TITRATION AND PRIMING INJECT UNDER THE SKIN DAILY PER INSULIN ORDERS MAXIMUM DAILY DOSE = 175 UNITS WITH TITRATION AND PRIMING SOLD: 08/03/2019 [facility] 29 gauge x 1/2" 08/03/2019 12:00:00 AM EST needle 150 USE DIRECTED UP TO 5 TIMES DAILY USE DIRECTED UP TO 5 TIMES DAILY SOLD: 08/03/2019 [facility] 25 mcg (1,000 unit) 08/03/2019 12:00:00 AM EST tablet 90 TAKE THREE TABLETS BY MOUTH EVERY DAY TAKE THREE TABLETS BY MOUTH EVERY DAY SOLD: 08/03/2019 [facility] 25 mcg (1,000 unit) 08/03/2019 12:00:00 AM EST tablet 90 TAKE THREE TABLETS BY MOUTH EVERY DAY TAKE THREE TABLETS BY MOUTH EVERY DAY SOLD: 10/01/2019 [facility] 25 mcg (1,000 unit) 08/03/2019 12:00:00 AM EST tablet 90 TAKE THREE TABLETS BY MOUTH EVERY DAY TAKE THREE TABLETS BY MOUTH EVERY DAY SOLD: 12/01/2019 [facility] 25 mcg (1,000 unit) 08/03/2019 12:00:00 AM EST tablet 90 TAKE THREE TABLETS BY MOUTH EVERY DAY TAKE THREE TABLETS BY MOUTH EVERY DAY SOLD: 02/01/2020 [facility] 5-325 mg 07/29/2019 12:00:00 AM EST tablet 30 TAKE ONE TABLET BY MOUTH EVERY 4 HOURS FOR POST SURGICAL PAIN, MAXIMUM DAILY DOSE = 6 TAKE ONE TABLET BY MOUTH EVERY 4 HOURS FOR POST SURGICAL PAIN, MAXIMUM DAILY DOSE = 6 SOLD: 07/30/2019 [facility] FLASH GLUCOSE SENSOR 07/29/2019 12:00:00 AM EST kit 6 USE DIRECTED CHANGE EVERY 14 DAYS USE DIRECTED CHANGE EVERY 14 DAYS SOLD: 07/30/2019 [facility] FLASH GLUCOSE SENSOR 07/29/2019 12:00:00 AM EST kit 6 USE DIRECTED CHANGE EVERY 14 DAYS USE DIRECTED CHANGE EVERY 14 DAYS SOLD: 10/01/2019 [facility] 0.5 ML dulaglutide 3 MG/ML Auto-Injector Dulaglutide 1.5 MG/0.5ML Subcutaneous Solution Pen-injector (TRULICITY) Dulaglutide 1.5 MG/0.5ML Subcutaneous So lution Pen-injector (TRULICITY) 07/28/2019 12:00:00 AM EST active Type 2 diabetes mellitus with hyperglycemia, with long-term current use of insulin Inject 1.5 mg once weekly. DX:E11.65 [facility] Type 2 diabetes mellitus with hyperglyce starla, with long-term current use of insulin 3 ML insulin detemir 100 UNT/ML Pen Inje ctor Insulin Detemir 100 UNIT/ML Subcutaneous Solution Pen-injector (LEVEMIR FLEXTOUCH) Insulin Detemir 100 UNIT/ML Subcutaneous Solution Pen-injector (LEVEMIR FLEXTOUCH) 07/28/2019 12:00:00 AM EST aborted Type 2 diabetes mellitus with hyperglycemia, with long-term current use of insulin Inject 60 units, QAM and 60 units QPM, Max Daily Dose: 144 units inclusive of priming and titiration. Dx code: E11.65 [facility] Type 2 diabetes mellitus with hyperglyce starla, with long-term current use of insulin 3 ML Insulin, Aspart, Human 100 UNT/ML P en Injector Insulin Aspart 100 UNIT/ML Subcutaneous Solution Pen-injector (NOVOLOG FLEXPEN) Insulin Aspart 100 UNIT/ML Subcutaneous Solution Pen-injector (NOVOLOG FLEXPEN) 07/28/2019 12:00:00 AM EST aborted Type 2 diabete s mellitus with hyperglycemia, with long-term current use of insulin Inject subq daily per insuli n orders. MDD 175 units with titration and priming. Dx: E11.65. [facility] Type 2 diabetes mellitus with hyperglyce starla, with long-term current use of insulin Cholecalciferol 1000 UNT Oral Tablet Vit olmedo D3 25 MCG (1000 UT) Oral Tablet (CHOLECALCIFEROL) Vitamin D3 25 MCG (1000 UT) Oral Tablet (CHOLECALCIFER OL) 07/28/2019 12:00:00 AM EST 3000 U Oral active Take 3 tablets by mouth daily [facility] Levothyroxine Sodium 0.125 MG Oral Table t Levothyroxine Sodium 125 MCG Oral Tablet (SYNTHROID, LEVOTHROID) Levothyroxine Sodium 125 MCG Oral Tablet (SYNTHROID, LEVOTHROID) 07/28/2019 12:00:00 AM EST 125 ug Oral active Other specified hypothyroidism Take 1 tablet by mouth daily [facility] Other specified hypothyroidism [employer] Shabbir 14 Day Sensor [id number] 07/28/2019 12:00:00 AM EST active Type 2 diabetes mellitus with hyperglyce starla, with long-term current use of insulin Use as directed. Change every 14 days. Dx: E11.65 [facility] Type 2 diabetes mellitus with hyperglyce starla, with long-term current use of insulin 125 mcg 07/28/2019 12:00:00 AM EST tablet 90 TAKE ONE TABLET BY MOUTH EVERY DAY TAKE ONE TABLET BY MOUTH EVERY DAY SOLD: 11/02/2019 [facility] 125 mcg 07/28/2019 12:00:00 AM EST tablet 90 TAKE ONE TABLET BY MOUTH EVERY DAY TAKE ONE TABLET BY MOUTH EVERY DAY SOLD: 07/30/2019 [facility] Acetaminophen 325 MG / Oxycodone Hydrochloride 5 MG Or al Tablet [Percocet] Percocet 07/26/2019 12:00:00 AM EST ORAL active [facility] ([facility]) 20 mg 07/19/2019 12:00:00 AM EST tablet 30 TAKE ONE TABLET BY MOUTH EVERY MORNING TAKE ONE TABLET BY MOUTH EVERY MORNING SOLD: 07/30/2019 [facility] 20 mg 07/19/2019 12:00:00 AM EST tablet 30 TAKE ONE TABLET BY MOUTH EVERY MORNING TAKE ONE TABLET BY MOUTH EVERY MORNING SOLD: 10/01/2019 [facility] 20 mg 07/19/2019 12:00:00 AM EST tablet 30 TAKE ONE TABLET BY MOUTH EVERY MORNING TAKE ONE TABLET BY MOUTH EVERY MORNING SOLD: 09/02/2019 [facility] Hydrocortisone 25 MG/ML Topical Cream Hydrocortisone 07/14/2019 12:00:00 AM EST active [facility] ( [facility], ) 17.5-3.13-1.6 gram 07/14/2019 12:00:00 AM EST recon soln [address] REDDY'S INSTRUCTIONS DIRECTED SEE DR REDDY'S INSTRUCTIONS SOLD: 07/14/2019 [facility] Suprep Bowel Prep Kit Suprep Bowel Prep Kit 07/14/2019 12:00:00 AM EST active [facility] ([facility], ) Magnesium Hydroxide 80 MG/ML Oral Suspension Milk Of Magnesi a 07/14/2019 12:00:00 AM EST ORAL active M [facility]ENT ([facility], ) 2.5 % 07/14/2019 12:00:00 AM EST cream with perineal bart licator 60 APPLY 0.5CC TO PERIANAL AREA THREE TIMES A DAY FOR 14 DAYS APPLY 0.5CC TO PERIANAL AREA THREE TIMES A DAY FOR 14 DAYS SOLD: 07/14/2019 [facility] pantoprazole 40 MG Delayed Release Oral Tablet Pantoprazole Sodium 07/08/2019 12:00:00 AM EST ORAL active [facility] ([facility]) Levothyroxine Sodium 0.125 MG Oral Tablet Levothyroxine Sodi um 07/08/2019 12:00:00 AM EST ORAL active [facility] ([facility]) 29 gauge x 1/2" 07/06/2019 12:00:00 AM EST needle 150 DIRECTED UP TO 5 TIMES A DAY DIRECTED UP TO 5 TIMES A DAY SOLD: 07/09/2019 [facility] 100 unit/mL (3 mL) 07/02/2019 12:00:00 AM EST insulin pen 75 INJECT UNDER THE SKIN THREE TIMES A DAY MAXIMUM DAILY DOSE = 125UNITS INJECT UNDER THE SKIN THREE TIMES A DAY MAXIMUM DAILY DOSE = 125UNITS SOLD: 07/09/2019 [facility] Insulin Pen Needle 29G X 12.7MM (BD ULTRA-FINE PEN NEEDLES) [id number] 07/02/2019 12:00:00 AM EST active Type 2 diabetes mellitus with hyperglycemia, with long-term current use of insulin Use as directed. DIRECTED UP TO 5 TIMES A DAY [facility] Type 2 diabetes mellitus with hyperglyce starla, with long-term current use of insulin carvedilol 6.25 MG Oral Tablet CARVEDILOL 07/01/2019 12:00:00 AM EST tablet 60 TAKE ONE TABLET BY MOUTH TWICE A DAY TAKE ONE TABLET BY MOUT H TWICE A DAY SOLD: 08/16/2019 [facility] 100 unit/mL (3 mL) 07/01/2019 12:00:00 AM EST insulin pen 90 INJECT 60 UNITS EVERY MORNING AND EVERY EVENING MAXIMUM DAILY DOSE = 140 UNITS INCLUSIVE OF PRIMING AND TITRATION INJECT 60 UNITS EVERY MORNING AND EVERY EVENING MAXIMUM DAILY DOSE = 140 UNITS INCLUSIVE OF PRIMING AND TITRATION SOLD: 07/01/2019 [facility] carvedilol 6.25 MG Oral Tablet CARVEDILOL 07/01/2019 12:00:00 AM EST tablet 60 TAKE ONE TABLET BY MOUTH TWICE A DAY TAKE ONE TABLET BY MOUT H TWICE A DAY SOLD: 11/02/2019 [facility] 1.5 mg/0.5 mL 07/01/2019 12:00:00 AM EST pen injector 2 INJECT 1.5MG WEEKLY INJECT 1.5MG WEEKLY SOLD: 07/01/2019 [facility] carvedilol 6.25 MG Oral Tablet CARVEDILOL 07/01/2019 12:00:00 AM EST tablet 60 TAKE ONE TABLET BY MOUTH TWICE A DAY TAKE ONE TABLET BY MOUT H TWICE A DAY SOLD: 12/06/2019 [facility] carvedilol 6.25 MG Oral Tablet CARVEDILOL 07/01/2019 12:00:00 AM EST tablet 60 TAKE ONE TABLET BY MOUTH TWICE A DAY TAKE ONE TABLET BY MOUT H TWICE A DAY SOLD: 07/01/2019 [facility] carvedilol 6.25 MG Oral Tablet CARVEDILOL 07/01/2019 12:00:00 AM EST tablet 60 TAKE ONE TABLET BY MOUTH TWICE A DAY TAKE ONE TABLET BY MOUT H TWICE A DAY SOLD: 10/01/2019 [facility] 1.5 mg/0.5 mL 07/01/2019 12:00:00 AM EST pen injector 2 INJECT 1.5MG WEEKLY INJECT 1.5MG WEEKLY SOLD: 07/30/2019 [facility] carvedilol 6.25 MG Oral Tablet CARVEDILOL 07/01/2019 12:00:00 AM EST tablet 60 TAKE ONE TABLET BY MOUTH TWICE A DAY TAKE ONE TABLET BY MOUT H TWICE A DAY SOLD: 02/01/2020 [facility] 10 mg 06/29/2019 12:00:00 AM EST tablet 30 TAKE ONE TABLET BY MOUTH EVERY DAY TAKE ONE TABLET BY MOUTH EVERY DAY SOLD: 09/02/2019 [facility] 10 mg 06/29/2019 12:00:00 AM EST tablet 30 TAKE ONE TABLET BY MOUTH EVERY DAY TAKE ONE TABLET BY MOUTH EVERY DAY SOLD: 10/01/2019 [facility] 10 mg 06/29/2019 12:00:00 AM EST tablet 30 TAKE ONE TABLET BY MOUTH EVERY DAY TAKE ONE TABLET BY MOUTH EVERY DAY SOLD: 11/02/2019 [facility] 10 mg 06/29/2019 12:00:00 AM EST tablet 30 TAKE ONE TABLET BY MOUTH EVERY DAY TAKE ONE TABLET BY MOUTH EVERY DAY SOLD: 07/30/2019 [facility] 10 mg 06/29/2019 12:00:00 AM EST tablet 30 TAKE ONE TABLET BY MOUTH EVERY DAY TAKE ONE TABLET BY MOUTH EVERY DAY SOLD: 07/01/2019 [facility] 40 mg 06/22/2019 12:00:00 AM EST tablet 90 TAKE ONE TABLET BY MOUTH AT BEDTIME TAKE ONE TABLET BY MOUTH AT BEDTIME SOLD: 06/28/2019 [facility] 40 mg 06/22/2019 12:00:00 AM EST tablet 90 TAKE ONE TABLET BY MOUTH AT BEDTIME TAKE ONE TABLET BY MOUTH AT BEDTIME SOLD: 10/01/2019 [facility] 40 mg 06/22/2019 12:00:00 AM EST tablet 90 TAKE ONE TABLET BY MOUTH AT BEDTIME TAKE ONE TABLET BY MOUTH AT BEDTIME SOLD: 12/01/2019 [facility] Acetaminophen 325 MG / Oxycodone Hydrochloride 5 MG Or al Tablet [Percocet] Percocet 06/11/2019 12:00:00 AM EST ORAL completed [facility] ([facility]) 3 ML insulin detemir 100 UNT/ML Pen Inje ctor Insulin Detemir 100 UNIT/ML Subcutaneous Solution Pen-injector (LEVEMIR FLEXTOUCH) Insulin Detemir 100 UNIT/ML Subcutaneous Solution Pen-injector (LEVEMIR FLEXTOUCH) 05/28/2019 12:00:00 AM EST aborted Type 2 diabetes mellitus with hyperglycemia, with long-term current use of insulin Inject 60 units, QAM and 60 units QPM, Max Daily Dose: 140 units inclusive of priming and titiration. Dx code: E11.65 [facility] Type 2 diabetes mellitus with hyperglyce starla, with long-term current use of insulin 0.5 ML dulaglutide 3 MG/ML Auto-Injector Dulaglutide 1.5 MG/0.5ML Subcutaneous Solution Pen-injector (TRULICITY) Dulaglutide 1.5 MG/0.5ML Subcutaneous So lution Pen-injector (TRULICITY) 05/28/2019 12:00:00 AM EST aborted Type 2 diabetes mellitus with hyperglycemia, with long-term current use of insulin Inject 1.5 mg once weekly. DX:E11.65 [facility] Type 2 diabetes mellitus with hyperglyce starla, with long-term current use of insulin 3 ML Insulin, Aspart, Human 100 UNT/ML P en Injector Insulin Aspart 100 UNIT/ML Subcutaneous Solution Pen-injector (NOVOLOG FLEXPEN) Insulin Aspart 100 UNIT/ML Subcutaneous Solution Pen-injector (NOVOLOG FLEXPEN) 05/28/2019 12:00:00 AM EST aborted Type 2 diabete s mellitus with hyperglycemia, with long-term current use of insulin Inject subq 3 time daily pe r insulin orders.MDD 125 units with titration and priming. Dx: E11.65. [facility] Type 2 diabetes mellitus with hyperglyce starla, with long-term current use of insulin 40 mg 05/04/2019 12:00:00 AM EDT tablet,delayed release (DR/EC) 30 TAKE ONE TABLET BY MOUTH EVERY DAY TAKE ONE TABLET BY MOUTH EVERY DAY SOLD: 09/02/2019 [facility] 40 mg 05/04/2019 12:00:00 AM EDT tablet,delayed release (DR/EC) 30 TAKE ONE TABLET BY MOUTH EVERY DAY TAKE ONE TABLET BY MOUTH EVERY DAY SOLD: 07/01/2019 [facility] 40 mg 05/04/2019 12:00:00 AM EDT tablet,delayed release (DR/EC) 30 TAKE ONE TABLET BY MOUTH EVERY DAY TAKE ONE TABLET BY MOUTH EVERY DAY SOLD: 10/01/2019 [facility] 40 mg 05/04/2019 12:00:00 AM EDT tablet,delayed release (DR/EC) 30 TAKE ONE TABLET BY MOUTH EVERY DAY TAKE ONE TABLET BY MOUTH EVERY DAY SOLD: 08/03/2019 [facility] 20 mg 04/08/2019 12:00:00 AM EDT tablet,delayed release (DR/EC) 30 ONE BY MOUTH EVERY DAY ONE BY MOUTH EVERY DAY SOLD: 05/25/2019 [facility] 75 mg 04/05/2019 12:00:00 AM EDT tablet 30 TAKE ONE TABLET BY MOUTH EVERY DAY TAKE ONE TABLET BY MOUTH EVERY DAY SOLD: 02/01/2020 [facility] 75 mg 04/05/2019 12:00:00 AM EDT tablet 90 TAKE ONE TABLET BY MOUTH EVERY DAY TAKE ONE TABLET BY MOUTH EVERY DAY SOLD: 07/01/2019 [facility] 75 mg 04/05/2019 12:00:00 AM EDT tablet 90 TAKE ONE TABLET BY MOUTH EVERY DAY TAKE ONE TABLET BY MOUTH EVERY DAY SOLD: 10/01/2019 [facility] FLASH GLUCOSE SENSOR 03/10/2019 12:00:00 AM EDT kit 2 USE DIRECTED CHANGE EVERY 14 DAYS USE DIRECTED CHANGE EVERY 14 DAYS SOLD: 07/01/2019 [facility] Continuous Blood Gluc Sensor (FREESTYLE SHABBIR 14 DAY SENSOR) [facility] [id number] 03/10/2019 12:00:00 AM EDT abo rted Type 2 diabetes mellitus with hyperglycemia, with long-term current use of insulin U se as directed. Change every 14 days. [facility] Type 2 diabetes mellitus with hyperglyce starla, with long-term current use of insulin Losartan Potassium 50 MG Oral Tablet LOSARTAN POTASSIUM 12:00:00 AM EDT tablet 90 TAKE ONE TABLET BY MOUTH MARCELLUS TAKE ONE TABLET BY MOUTH EVERY DAY SOLD: 07/09/2019 [facility] 50 mg 01/29/2019 12:00:00 AM EDT tablet 90 TAKE ONE TABLET BY MOUTH EVERY DAY TAKE ONE TABLET BY MOUTH EVERY DAY SOLD: 10/01/2019 [facility] 25 mcg (1,000 unit) 12/22/2018 12:00:00 AM EDT tablet 90 TAKE THREE TABLETS BY MOUTH EVERY DAY TAKE THREE TABLETS BY MOUTH EVERY DAY SOLD: 07/01/2019 [facility] 25 mcg (1,000 unit) 12/22/2018 12:00:00 AM EDT tablet 90 TAKE THREE TABLETS BY MOUTH EVERY DAY TAKE THREE TABLETS BY MOUTH EVERY DAY SOLD: 05/25/2019 [facility] Cholecalciferol 1000 UNT Oral Tablet Vit olmedo D3 (CHOLECALCIFEROL) 1000 units tablet Vitamin D3 (CHOLECALCIFEROL) 1000 units tablet 019 12:00:00 AM EDT aborted TAKE THREE TABLE TS BY MOUTH EVERY DAY [facility] 10 mg 11/11/2018 12:00:00 AM EDT tablet 30 TAKE ONE TABLET BY MOUTH EVERY DAY TAKE ONE TABLET BY MOUTH EVERY DAY SOLD: 05/25/2019 [facility] 125 mcg 10/26/2018 12:00:00 AM EDT tablet 30 TAKE ONE TABLET BY MOUTH EVERY DAY TAKE ONE TABLET BY MOUTH EVERY DAY SOLD: 06/28/2019 [facility] Levothyroxine Sodium 0.125 MG Oral Table t levothyroxine (SYNTHROID, LEVOTHROID) 125 MCG tablet levothyroxine (SYNTHROID, LEVOTHROID) 125 MCG tablet 0 10/26/2018 12:00:00 AM EDT aborted Other specified hypothyroidism TAKE ONE TABLET BY MOUTH EVERY DAY [facility] Other specified hypothyroidism 29 gauge x 1/2" 09/18/2018 12:00:00 AM EDT needle 50 DIRECTED UP TO 5 TIMES A DAY DIRECTED UP TO 5 TIMES A DAY SOLD: 06/28/2019 [facility] ONETOUCH DELICA LANCETS 33G [facility] [id number] 06/17/2017 12:00:[address] aborted Type 2 diabetes idris itus with hyperglycemia, with long-term current use of insulin Use to test blood sugar up to 6 times da adeola. Dx: e11.65 [facility] Type 2 diabetes mellitus with hyperglyce starla, with long-term current use of insulin Insurance Providers Payer name Policy type / Coverage type Policy ID Covered green party ID Covered green party's relationship to patiño Policy Patiño Plan Information [facility] [id number] SP [id number] [facility] [place] [id number] S [id number] [place] [id number] SP [id number] [facility] [id number] SP [id number] [facility] I [id number] Self [id number] MEDICAID [id number] SP [id number] MEDICAID [id number] S [id number] MEDICAID [id number] SP [id number] [facility] EX[place]ANGE [place] [id number] Self [id number] ANSI-Not a Secondary Insurance [id number] ANSI-Not a Secondary Insurance [id number] [employer] (O) [id number] Self [id number] [employer] (O) [id number] Self [id number] ANSI-Not a Secondary Insurance [id number] ANSI-Not a Secondary Insurance [id number] ANSI-Not a Secondary Insurance [id number] [employer] (O) [id number] Self [id number] ANSI-Not a Secondary Insurance [id number] ANSI-Not a Secondary Insurance [id number] ANSI-Not a Secondary Insurance [id number] [employer] (O) [id number] Self [id number] [place] [employer] (O) [id number] Self [id number] ANSI-Not a Secondary Insurance [id number] ANSI-Not a Secondary Insurance [id number] ANSI-Not a Secondary Insurance [id number] ANSI-Not a Secondary Insurance [id number] EXCELLUS H [id number] [facility] [id number] [place] EXCHANGE [id number] Liset 7 [id number] [place] MEDICAID [id number] Liset 7 [id number] [place] MEDICAID PI PI [employer] BCBS [id number] ORe YND [id number] [place] 306/806 [id number] [place] [id number] Ghi FHP-(DO Not Use) Medigap Part B [id number] Self [id number] Bshmo ZFC,Yot,Yoy,ZFH,ZFP Medigap Part B [id number] Self [id number] BS [place] Medigap Part B [id number] Family Depend ent [id number] BS [place] Commercial [id number] Family Dependent [id number] SELF PAY ONLY [id number] SP [id number] [employer] BCBS Health Maintenance Organization (HMO) [id number] Family Dependent [id number] BCBS [place] PPO 302/307 [id number] [place] [id number] [employer] BCBS PI PI Ghi FHP-(DO Not Use) Medigap Part B [id number] Self [id number] Bshmo ZFC,Yot,Yoy,ZFH,ZFP Medigap Part B [id number] Self [id number] BS [place] Medigap Part B [id number] Family Depend ent [id number] BS [place] Commercial [id number] Family Dependent [id number] Ghi FHP-(DO Not Use) Medigap Part B [id number] Self [id number] Bshmo ZFC,Yot,Yoy,ZFH,ZFP Medigap Part B [id number] Self [id number] BS [place] Medigap Part B [id number] Family Depend ent [id number] BS [place] Commercial [id number] Family Dependent [id number] Ghi FHP-(DO Not Use) Medigap Part B [id number] Self [id number] Bshmo ZFC,Yot,Yoy,ZFH,ZFP Medigap Part B [id number] Self [id number] BS [place] Medigap Part B [id number] Family Depend ent [id number] BS [place] Commercial [id number] Family Dependent [id number] BCBS [place] PPO 302/307 [id number] [place]2 [id number] [employer] BCBS B [id number] P YND [id number] BCBS [place] PPO 302/307 [id number] [place] [id number] [employer] BC[employer] Health Maintenance Organization (HMO) Family Dependent Ghi FHP-(DO Not Use) Medigap Part B Self Bshmo ZFC,Yot,Yoy,ZFH,ZFP Medigap Part B Self BS [place] Commercial Family Dependent BS [place] Commercial Family Dependent BCBS [place] PPO 302/307 [id number] [place]2 [id number] EXCELLUS C [id number] Self [id number] BCBS [place] O [id number] U VY [id number] [employer] BCBS P [id number] P KARINE [id number] SELF PAY 2 UNAVAILABLE 1 UNAVAILA BLE BC EXC PLANS 1 [id number] Problems, Conditions, and Diagnoses Code Display Name Description Problem Type Effective Dates Data Source(s) Thoracic aortic ectasia Thoracic aortic ectasia Proble m 12/03/2019 12:00:00 AM EDT [facility] ([facility]) [id number] Obstructive sleep apnea syndrome Obstructive sle ep apnea syndrome Problem 11/02/2019 12:00:00 AM EDT [facility] ([facility] NEETA sanchez) G47.33 [id number] LUCILA (obstructive sleep apnea) Problem 07/19/2019 12:00:00 AM EST eCW1 ([facility]) [id number] Preoperative cardiovascular examination Preoperative cardiovascular examination Problem 07/09/2019 12:00:00 AM EST [facility] ([facility]) E55.9 Vitamin D deficiency, unspecified Vitamin D defi ciency, unspecified Diagnosis 07/28/2019 12:46:10 PM [facility] Surgeries/Procedures Procedure Description Date Indications Data Source(s) ECG ROUTINE ECG W/LEAST 12 LDS W/I&R 05/12/2020 12:00: 00 AM EST [facility] ([facility]) POCT HEMOGLOBIN A1C, DOCKED POCT HEMOGLOBIN A1C, DOCKED Routine 04/20/2020 12:00 PM EDT 04/20/2020 12:00:00 PM EDT [facility] POCT GLUCOSE, DOCKED POCT GLUCOSE, DOCKED Routine 04/20/2020 11:58 AM EDT 04/20/2020 11:58:00 AM [facility] MYOCARDIAL SPECT MULTIPLE STUDIES 01/24/2020 12:00:00 AM EDT [facility] ([facility]) CV STRS TST XERS&/OR RX CONT ECG PHYS SI&R 01/24/2020 12:00:00 AM EDT [facility] ([facility]) ECG ROUTINE ECG W/LEAST 12 LDS W/I&R 12/03/2019 12:00: 00 AM EDT [facility] ([facility]) PHYSICIAN TELEPHONE EVALUATION 5-10 MIN 10/12/2019 12: 00:00 AM EDT eCW1 ([facility]) DESTROY BENIGN/PREMLG LESION 08/27/2019 12:00:00 AM ES T eCW1 ([facility]) POCT HEMOGLOBIN A1C, DOCKED POCT HEMOGLOBIN A1C, DOCKED Routine 07/28/2019 10:06 AM EST 07/28/2019 03:06:00 PM EST [facility] POCT GLUCOSE, DOCKED POCT GLUCOSE, DOCKED Routine 07/28/2019 9:58 AM EST 07/28/2019 02:58:00 PM [facility] ECG ROUTINE ECG W/LEAST 12 LDS W/I&R 07/09/2019 12:00: 00 AM EST [facility] ([facility]) ECHO TTHRC R-T 2D W/WOM-MODE COMPL SPEC&COLR DOP 06/08 12:00:00 AM EST [facility] ([facility]) Results ID Date Data Source [id number] 07/13/2020 01:35:00 PM EST [facility] Name Value Range Interpretation Code Description Data Renetta rce(s) Supporting Document(s) Respiratory pathogens identified [Type] in Nasopharynx by Probe and target amplification method SARS-CoV-2 (COVID 19) [facility] This lab was ordered by [facility] a nd reported by [facility]. ID Date Data Source [id number] 07/04/2020 12:00:00 AM EST [facility] Name Value Range Interpretation Code Description Data Renetta rce(s) Supporting Document(s) Carestart Rapid COVID Antigen Test [facility] This lab was reported by [facility] Isauro hernandez. ID Date Data Source [id number] 06/04/2020 03:54:00 PM EST [facility] Name Value Range Interpretation Code Description Data Renetta rce(s) Supporting Document(s) SARS-CoV-2 (COVID 19) [facility] This lab was ordered by [facility] a nd reported by [facility]. ID Date Data Source CBC with Differential 05/24/2020 12:00:00 AM EST eCW1 ([facility]) Name Value Range Interpretation Code Description Data Renetta rce(s) Supporting Document(s) 5.3 4.0-10.0 WHITE BLOOD COUNT eCW1 ([facility]) 4.70 4.30-6.10 RED BLOOD COUNT eCW1 ([facility]) 14.2 13.5-17.5 HEMOGLOBIN eCW1 (On license of [facility]) 33.8 32.0-36.5 MEAN CORPUSCULAR HGB CONC eCW1 ([facility]) 42.0 42.0-52.0 HEMATOCRIT eCW1 (On license of [facility]) 30.2 27.0-33.0 MEAN CORPUSCULAR HEMOGLOB IN eCW1 ([facility]) 89.4 80.0-96.0 MEAN CORPUSCULAR VOLUME e CW1 ([facility]) 8.8 0.0-5.0 MONO % eCW1 ([facility]) 12.5 11.5-14.5 RED CELL DISTRIBUTION WID TH eCW1 ([facility]) 51.8 36.0-66.0 NEUTROPHILS % eCW1 ([facility]) 34.5 24.0-44.0 LYMPH % eCW1 ([facility]) 184 150-450 PLATELET COUNT, AUTOMATED eCW1 ([facility]) 2.8 1.5-8.5 NEUTROPHILS # eCW1 ([facility]) 0.9 0.0-1.0 BASO % eCW1 ([facility]) 0.5 0.0-0.8 MONO # eCW1 ([facility]) 3.6 0.0-3.0 EOS % eCW1 ([facility]) 1.8 1.5-5.0 LYMPH # eCW1 ([facility]) 0.1 0.0-0.2 BASO # eCW1 ([facility]) 0.2 0.0-0.5 EOS # eCW1 ([facility]) ID Date Data Source [id number] 05/24/2020 12:00:00 AM EST eCW1 ([facility]) Name Value Range Interpretation Code Description Data Renetta rce(s) Supporting Document(s) Hemoglobin A1c/Hemoglobin.total in Blood 6.7 HEMOGLOBIN A1c eCW1 ([facility]) ID Date Data Source LIPID PANEL (CARDIAC RISK) 05/24/2020 12:00:00 AM EST eCW1 ( [facility]) Name Value Range Interpretation Code Description Data Renetta rce(s) Supporting Document(s) Triglyceride [Mass/volume] in Serum or Plasma by calculation 84 <150 TRIGLYCERIDES LEVEL eCW1 ([facility]) Cholesterol in HDL [Moles/volume] in Serum or Plasma 35 >40 HDL CHOLESTEROL eCW1 ([facility]) Cholesterol [Moles/volume] in Serum or Plasma 119 <200 CHOLESTEROL LEVEL eCW1 ([facility]) 84 NON-HDL-C eCW1 ([facility]) Cholesterol in LDL [Mass/volume] in Serum or Plasma by calculation 67 <100 LDL CHOLESTEROL eCW1 ([facility]) 3.400 <5 CHOLESTEROL RISK RATIO eCW1 ([facility]) ID Date Data Source FREE T4 & TSH PANEL 05/24/2020 12:00:00 AM EST eCW1 ([facility]) Name Value Range Interpretation Code Description Data Renetta rce(s) Supporting Document(s) 2.800 0.358-3.740 eCW1 ([facility]) 1.02 0.76-1.46 eCW1 ([facility]) ID Date Data Source Comprehensive Metabolic Profile (CMP) 05/24/2020 12:00:00 AM EST eCW1 ([facility]) Name Value Range Interpretation Code Description Data Renetta rce(s) Supporting Document(s) 109 70-100 GLUCOSE, FASTING eCW1 ([facility]) 14 7-18 BLOOD UREA NITROGEN eCW1 ([facility]) > 60.0 >56 GLOMERULAR FILTRATION RATE eCW 1 ([facility]) 110 98-107 CHLORIDE LEVEL eCW1 ([facility]) 1.00 0.70-1.30 CREATININE FOR GFR eCW1 ([facility]) 4.1 3.5-5.1 POTASSIUM SERUM eCW1 ([facility]) 143 136-145 SODIUM LEVEL eCW1 ([facility]) 8.6 8.5-10.1 CALCIUM LEVEL eCW1 ([facility]) 10 7-37 AST/SGOT eCW1 ([facility]) 28 21-32 CARBON DIOXIDE LEVEL eCW1 ([facility]) 27 12-78 ALT/SGPT eCW1 ([facility]) 3.8 3.2-5.2 ALBUMIN eCW1 ([facility]) 1.4 ALBUMIN/GLOBULIN RATIO eCW1 ([facility]) 0.7 0.2-1.0 BILIRUBIN,TOTAL eCW1 ([facility]) 6.6 6.4-8.2 TOTAL PROTEIN eCW1 ([facility]) 93 45-117 ALKALINE PHOSPHATASE eCW1 ([facility]) ID Date Data Source [id number] 04/20/2020 04:48:22 PM EDT [facility] Name Value Range Interpretation Code Description Data Renetta rce(s) Supporting Document(s) Progress Note [facility] CXIWQv0mNvOWJnQr24/CSYorIGExi9DlSXybPKf8FVrkUQEtO8DgRKA0jU0pSBA3HYwDCcIiVzEuUCI8 lbm [file] ICAgICAgICAgICAgICAgICAgICAgICAgICAgICAgIC AgICAgICAgICAgICAgICAgICAgICAgICAgICAgICAgDQogICAgICAgICAgICAgICAgICAgICAgICAgIC AgICAgICAgICAgICAgICAgICAgICAgICAgICAgICAgICAgICAgICAgICAgICAgICAgICAgICAgICAgIC AgICAgICAgICAgICAgDQogICAgICAgICAgICAgICAg ICAgICAgICAgICAgICAgICAgICAgICAgICAgICAgICAgICAgICAgICAgICAgICAgICAgICAgICAgICAg ICAgICAgICAgICAgICAgICAgICAgICAgDQogICAgICAgICAgICAgICAgICAgICAgICAgICAgICAgICAg ICAgICAgICAgICAgICAgICAgICAgICAgICAgICAgIC AgICAgICAgICAgICAgICAgICAgICAgICAgICAgICAgICAgDQogICAgICAgICAgICAgICAgICAgICAgIC AgICAgICAgICAgICAgICAgICAgICAgICAgICAgICAgICAgICAgICAgICAgICAgICAgICAgICAgICAgIC AgICAgICAgICAgICAgICAgDQogICAgICAgICAgICAg ICAgICAgICAgICAgICAgICAgICAgICAgICAgICAgICAgICAgICAgICAgICAgICAgICAgICAgICAgICAg ICAgICAgICAgICAgICAgICAgICAgICAgICAgDQogICAgICAgICAgICAgICAgICAgICAgICAgICAgICAg ICAgICAgICAgICAgICAgICAgICAgICAgICAgICAgIC AgICAgICAgICAgICAgICAgICAgICAgICAgICAgICAgICAgICAgDQogICAgICAgICAgICAgICAgICAgIC AgICAgICAgICAgICAgICAgICAgICAgICAgICAgICAgICAgICAgICAgICAgICAgICAgICAgICAgICAgIC AgICAgICAgICAgICAgICAgICAgDQogICAgICAgICAg ICAgICAgICAgICAgICAgICAgICAgICAgICAgICAgICAgICAgICAgICAgICAgICAgICAgICAgICAgICAg ICAgICAgICAgICAgICAgICAgICAgICAgICAgICAgDQogICAgICAgICAgICAgICAgICAgICAgICAgICAg ICAgICAgICAgICAgICAgICAgICAgICAgICAgICAgIC OrCQOgQTYeBYJwHDMgPVMmHMHtHDUhZODzMIDaPGFdMQWbPUAhTABtUDa0L6waILKrNULiRL6bWSl6Ob 8+RDmPMsRxIAL6ckYczW0DZT7px0ZrAMcsUQHiy5JbHIe5VZ3KRSThPXcfLX0XXXqnjj6MYRTdMKUgrK LZx8reOvQrQKV4RHAqNpfnJL8HNNHsD5notbEoOPSh DHTDUAkgVOCMNLogINXHTGReZDVhNuKcBgIlTYYxDWFhCIALKBC2IKYdNwTzGJZyFRGyFvTqTIFUFM7M SvZvL4ZyxZ96AEbKYk9+FKdwagTgJakJLkA2BJMvt0UuZLc9BW9SFMCpDzxkg9UeEntfBSGEWKvsXQ6E UBH6BDZ1QIUwEs1XWIRcA691pvHmIG5XRp3TXfZeHO 5bsl8GTbfiSRDxYcmJBzb0OOniEH8ReXTsAWtDqx2wgsNbtuNQk4AkjjHkfNLUWC2lAYcmLOXLYSK3mg tpxAtoFVXiUJHgWWQsAGEbAnMrKBBkRNkjIYWRCXrARcKeJ6Wfj2TyNoF4OWNcSvCmPPwuKUWlCvQ8HV 33dSolRS1DVGYuEOWtQT25WMY3VKUsTm3CId4ANgJw GU7urk8MRTCqUFBzBwlQMok3AFvbCS5LeOBiV0WbtTJdx1wLHkEcL4NBZKE5ZZFaKg6TBXHiKlQgQEIr SNxuVR3sZLEgDVUOtLgzxqK1SD1WLP2sxwLfNG9LXzJdDx9fEn4ILyHsP1TmB5RdYBZkTSNHURlqVZ8I OHnwVA0dAW5Iz9HRtBKnuV5qhl3PWTWuISLiVcoova 1YSmgoF6I1aPrtQQGuRstnCUPONCsnRK0YWCZgJVM8YFSqIqDzGLBJVbHkV65bZA2WY9Ffh42sAqC8QK NwEwXzOTpkNK30eMxbilMytWGzvJyaJF0ZIc3+DQplbmRvYmoNCnhyZWYNCjAgNDENCjAwMDAwMDAwMD MrDhD3LoVsXn4PUSSeYNInYXHgWvWmKOQmURBaLKkp SBBcRGR8VNrkHUAkXTJjAP6JIsKtDPQbYDa6FMdhJSWaGRBtxj6YLPMeCKVuJAD4XnOjJDGdOYJsSOay PDHeSDQ0SEs4UOGxZWBoCW0ZUxVaDPOeBCC0UKzvBTHuLFYsio2ECCQkESAkCXY4EhTeCZPaCYRxJZui CFJiHYM9CStzKVWqWCExRX8EZuNnIOHrURKzSKXwFX RpQSXxof3FVEIvGEJhZRL8NBMuMIZrFQXjFBcpKHIsAVE0JMI3NENvTRSeRK3NYcQhQHPhNBS0CyViLG CaIOSsbc0THDPtSVYlADRjIkAyPZWnCRJgFVncMGDoKEO1QoYuTFThUVIjEN2KBpNeRKIzItY1XfdvEW SjTGCodq9VRUAtSKRbJRG1FYRwUZApPUBhVHxvPJQs DSOtNODmUFVlVPEvQO0FGwKoZAGmXaDjAEPkWREyXJYukg1QKCYyFNZjNjdzIAEyNBArZFVkTVcyZCWp SXA0GZL3ABAyEHDtZD7MNxBpVDWgLws1IDMaSPUeLXFbgn8BUZSpUUEpLHA4REAhDOQbYFPsJKkmSLFt YVQmBpSlQZLbOGNxNU0BStIsGBVdJyU8LIdvJYKpBC Skul1RNKQoTKTnWBEmEWSnGREzIMVqLTwpZLKnOGBiZTlvRTNgGMSjQI8WZoBlDEYbDrBbCXOwNBNaWH Nrsk4XOFOuNNNwJwC2AXOyVTLoKIHpXOrnREMuDYVdUCFpXBBfFDNvED9CZtAaBLObUTGaXdWtAMAjGT Egvy9XTPOzFLL4ETI4FVKpOQRqYPLjHYooOTKfJGN6 MUi8DZYuQLHxQU5UZaPnXDHnFLX5JZFjTXVvHEJpge2FOKPnEPJ3XHP6MNEfWFQxAHBeXUjcFDIzQEI5 RPpzRPRyRAPjSJ2FDoKxTZFbDOVwZVVjDDYcRKQqhn9KOZSoNUM9SrQ7CsPnTPIoJEHlFVswZQXqSCF7 FHU9CZGyFLHlHE1XGxCsPOBxWYsdFmXdDTNjQRHvmu 6XEYZsUDC6JEN7TzMjCCWvQGJzHTw7qsCskCEgZNa1DH1ZX7DzasYdJTSQXi9Ug623QEQmVNBbRp1VC8 hhKo3aRLMaLZDZPe5XVYf7RTWwDKmhYCEjZMX8RcX6EmJ4GCUvDXp6ENE8DyDdFQJ+EFiePRL4YGF7EC GnHwJfDihfIBanHjS1YQgsDOg2YqY8Si8yPSQZNi2+UWvldVSktYnnZMIEZyJ1GAB1OLbgHWVZTj3E ID Date Data Source [id number] 04/20/2020 12:13:55 PM EDT [facility] Name Value Range Interpretation Code Description Data Renetta rce(s) Supporting Document(s) Hemoglobin A1c/Hemoglobin.total in Blood 8.5 % 4.0-6.0 [facility] Glucose mean value [Mass/volume] in Blood Estimated fr om glycated hemoglobin 197 mg/dL <126 [facility] ID Date Data Source [id number] 04/20/2020 12:09:45 PM EDT [facility] Name Value Range Interpretation Code Description Data Renetta rce(s) Supporting Document(s) Glucose [Mass/volume] in Capillary blood by Glucometer 303 mg/dL 70- 140 [facility] ID Date Data Source [id number] 04/20/2020 11:24:00 AM EDT [facility] ([facility]) Name Value Range Interpretation Code Description Data Renetta rce(s) Supporting Document(s) Hemoglobin A1c/Hemoglobin.total in Blood 8.5 [facility] ([facility]) ID Date Data Source GASTROINTESTINAL GI PANEL (GIPANEL) 11/24/2019 12:00:00 AM EDT eCW1 ([facility]) Name Value Range Interpretation Code Description Data Renetta rce(s) Supporting Document(s) This Gastrointestinal PCR Panel detects the following bacteria, GASTROINTESTINAL (GI) PANEL eCW1 ([facility]) ID Date Data Source [id number] 11/18/2019 03:32:00 PM EDT [facility] ([facility]) Name Value Range Interpretation Code Description Data Renetta rce(s) Supporting Document(s) Albumin [Mass/volume] in Serum or Plasma 3.8 [facility] ([facility]) Alanine aminotransferase [Enzymatic activity/volume] in Serum or Pl asma 32 [facility] ([facility]) Carbon dioxide, total [Moles/volume] in Serum or Plasma 25 [facility] ([facility]) Calcium [Mass/volume] in Serum or Plasma 8.4 [facility] ([facility]) Chloride [Moles/volume] in Serum or Plasma 110 [facility] ([facility]) Potassium [Moles/volume] in Serum or Plasma 3.9 [facility] ([facility]) Alkaline phosphatase [Enzymatic activity/volume] in Serum or Plasma 1 09 [facility] ([facility]) Protein [Mass/volume] in Serum or Plasma 6.6 [facility] ([facility]) Aspartate aminotransferase [Enzymatic activity/volume] in Serum or Plasma 11 [facility] ([facility]) Glucose 120 70-100 [facility] ([facility] Urea nitrogen [Mass/volume] in Serum or Plasma 18 [facility] ([facility]) Sodium 143 [facility] ([facility] Creatinine For GFR 0.82 [facility] ([facility]) ID Date Data Source [id number] 11/18/2019 03:32:00 PM EDT [facility] ([facility]) Name Value Range Interpretation Code Description Data Renetta rce(s) Supporting Document(s) White Blood Count 5.8 4.0-10.0 [facility] ([facility]) Red Blood Count 4.85 4.30-6.10 [facility] ([facility]) Hemoglobin 15.0 [facility] ([facility]) Platelets 179 150-450 [facility] ([facility] Hematocrit 41.6 [facility] ([facility]) ID Date Data Source [id number] 10/28/2019 11:19:24 AM EDT [facility] Name Value Range Interpretation Code Description Data Renetta rce(s) Supporting Document(s) Progress Note [facility] MBVSGm1zOjRUVgDg82/AEVssQCZjr8NcEXebCXr9INyhZNBlX6MdVIM9uS6zCDU0VJjHUdVeDyDwUZBc [facility] ImDlvKCaMiFAWcZmwPQcDtRFubNnaukMGwCV5MrYX5CFKxO49iZKBkHFRsU0LuUGH9CyT+Ob9SYBSprY DwIU1GSsfE3M3wm4sKPi7y3H3VBpJttN8sa7axi6NObODxc7gaUGvRfhb1VUHrC74m7wW5xf02Ip3Bkz x1VMIr5VQcpFhjKUBys217PiHDpeb2r0jSzioj5WZ/ 2nnIa3QilJ/+cBm2mOm51+djo7k0cN9PIFbEut+e+/bYcm865QTWOWNGeh3p6cokJXaajkKV6F35HnmN 3QgyJ0XMo40ed7dSN1/OLt4o1/Mdz4+hog0Ngz+h87683whb8jXMACI+578blqBf7m78CPUDVzZhnrcs 0murk/v51wKijbA8Bn/FZjltcqdaTafteexiNiVk42 Ze37DtolDECm00hMXawVBs3wa5Raf02F9JF+hpIv9vr0R7AdfRZR1Sypq1h67IJnh3FDyzFTQJdv9baG /+CNlmSSkT39SVBDiiBDlJ5BJ8ULu85pF+udq7mdkfivAkBi/ilvzCGo3kpEk8PZQSGvKPKV4EnxI56C 5SStDlUrwDrQ/c2Dp4E+CjJ62zObr+uCbTR/3+NJlZ 1O0HxAxo18xnKD1zKj/wdkZn3zCDUGRgysh9zLBKsyuVu06s4HbEnrVyM8JUwLwd9mEYKenUKXBz+mxh jqf89zY/GyW07mGjJy6rSGg8JRUiM8cV1LarMPwlU14x/40QrUUBMdFvsFc586fQ8jbsitQE45m8oJv8 mvmCA1pz9Qt7Yg3lk+k06f/YMcL9ysIOWgcAC3iFLG gZgQob0jF3MtaFQzb5IEVzZcVA7PAHMfugxqTbJgZwJwCr7myOVqMGPcVdn80ktLG0OSt462dD4J1zC9 /Dj4vqtS/sPc/bHNwCbxjPmfvx5BNzgAAqc/K30NSOf+iKROWy8Es49eoFqF0y5dEgC/cx1sUxMXTWK7 UeRT9JRCgU/O7g/H2bpX7gVD1XY60KYPIrBY4R8F10 Rlgxb9g9LwoS27KtbgEB6qTBgnEKbxgb2uZvGqEq4jTyDjAm4J6k1zUkOVGcREkjEaRfNYEz17GB5QZ1 /82yzF92JW91iezQwJ7NMmWk9D+T7m6jQYHHREy2LCpVdsdnYjfeiASkEuyskPNFlta9XgFJINtcN7dq J+eob7SxXff5TvPqdNYlswcLKOVdmqygP+SihgEwvJ eFw/zpWTkGjZprXL7UNyEAHOhyp6x2Cjy4/DDBUBzneZaju/oeRn9EEcKfxMpyKGwRDf9/WCjyEBVHGD fQ9zIGKq2Os8/555KPApBIcXs54rPmlfKv7xa+/VfHea//9h/KelV2hcmcWktMjl91WMUjZwSJoBIV69 c32rE76B7P2Bl9iS31fxQ8fYFP3qz7S7Lz6idhGTF4 [file] ICAgICAgICAgICAgICAgICAgICAgICAgICAgICAgIC AgICAgICAgICAgICAgICAgICAgICAgICAgICAgDQogICAgICAgICAgICAgICAgICAgICAgICAgICAgIC AgICAgICAgICAgICAgICAgICAgICAgICAgICAgICAgICAgICAgICAgICAgICAgICAgICAgICAgICAgIC AgICAgICAgICAgDQogICAgICAgICAgICAgICAgICAg ICAgICAgICAgICAgICAgICAgICAgICAgICAgICAgICAgICAgICAgICAgICAgICAgICAgICAgICAgICAg ICAgICAgICAgICAgICAgICAgICAgDQogICAgICAgICAgICAgICAgICAgICAgICAgICAgICAgICAgICAg ICAgICAgICAgICAgICAgICAgICAgICAgICAgICAgIC AgICAgICAgICAgICAgICAgICAgICAgICAgICAgICAgDQogICAgICAgICAgICAgICAgICAgICAgICAgIC AgICAgICAgICAgICAgICAgICAgICAgICAgICAgICAgICAgICAgICAgICAgICAgICAgICAgICAgICAgIC AgICAgICAgICAgICAgDQogICAgICAgICAgICAgICAg ICAgICAgICAgICAgICAgICAgICAgICAgICAgICAgICAgICAgICAgICAgICAgICAgICAgICAgICAgICAg ICAgICAgICAgICAgICAgICAgICAgICAgDQogICAgICAgICAgICAgICAgICAgICAgICAgICAgICAgICAg ICAgICAgICAgICAgICAgICAgICAgICAgICAgICAgIC AgICAgICAgICAgICAgICAgICAgICAgICAgICAgICAgICAgDQogICAgICAgICAgICAgICAgICAgICAgIC AgICAgICAgICAgICAgICAgICAgICAgICAgICAgICAgICAgICAgICAgICAgICAgICAgICAgICAgICAgIC AgICAgICAgICAgICAgICAgDQogICAgICAgICAgICAg ICAgICAgICAgICAgICAgICAgICAgICAgICAgICAgICAgICAgICAgICAgICAgICAgICAgICAgICAgICAg ICAgICAgICAgICAgICAgICAgICAgICAgICAgDQogICAgICAgICAgICAgICAgICAgICAgICAgICAgICAg ICAgICAgICAgICAgICAgICAgICAgICAgICAgICAgIC WwSPVxHULhCIHlYNLuBHAmRNSgJYXuWNWiQFVjWGKlPMFsQVXvWSe0P2vlRVRsXKCiWZ7fUAj8Yp0+DQ yGOtSbDNE1bvXnwR9CMJ4bn3TxERcqHEGnm7AqOVe6TY7KWQTdIUkqHG9AHNnwwp3UVZXrZPQrlAJNw8 reWbNbSAG4REZdNcwfVS4GDZPrK0xglpUfNZVkLSAY DRjvTQJLXYxlKWEIGGNyJHMxZoEuJxWxXGMfOVWfVTLINWL1HHDlPjTcEGNkOQTnEO7KOKWgD395vsYc PN8RXn6NDlXdOM5fif9ASkWvMBXeNsiZWdj2ATyjYX6EkXOanJRbZbPhXXNOXnUgA8bxv9FfBfveFHXY GHscEI8In0QvhUGcUHg+Pi0MHP9yy4KvUYakVaEbBD 1rnk0NBCmEZuEfU6KjvMzfWASjx8xoIJWgGP0jeRLjQKI6ZQNmgyxarMuuJXWxXDVpnUPzZGQFJEUbpQ A1EtRaPxNmScQgFBH0UyQbPC2gGJamHO8JJNM8GUhtDKHnPEEfY3yWBzUgIRLsDjOspKzmHJ9QNkQcE8 BhcmVudCAzNiAwIFINCj4+AZclyrLzFnzPIqA2LSTg n9EoFOl9SG3LWLEfCTkxII6YVDShjN1eEWnkZI9GOzRfPNLgQZLEAoNqR85fsAQuCPa1N8VwFeCzVABf RmlsZXMgPDwvTmFtZXMgWyBdDQogID4+ID4+MUkmQT0MNYhuljNfXUJmBo4FJPEmPHOoQB0dNNArFFJr V2U1gTiaGOWAUfRlV6kcqxkqIU3qXPFyV477sIlnod OvFCP9CYWxQb3DRJQtHWY6TGNcpOWxNgWxMYPZENxhIV4FsDYfFLI6dT2zTAljIFRcGQPuG8xWMqYcuH oxJW78tFrhmvVyuFCvJUf+Nt0JWF7iq1DeJBz4gpCiBTkhTDJ0ETrqZNXlCHQrGTPzKIL1JUV5PUEABq IsWIHeYTEuBAhgVSXhOXZoso6PEOOcSTJ4QOqxMMUu ULAxLRUbAZtbBECfULRbHuZtKFBtUCGmUL0VTbEbRGGsQBVsISmxXRRcNANrzu8UXERlRXFlJgllQbXm ZAPkNGPhKPktALJzQLVoRUH6WUPhOGEnKY8IDnNvBAIoXBP1KVvcPPOtEEGwxe3AHFYzZRRvDvO1LlXu DFUkGAYzRNlaNQCoDNX7JDB3RLDzWXXnTQ4KUdZzXV ZwGMxjJiRhHXRdRMOpjf8XEQVwSKFuKlenNvYnTQGfJOOhDXicGHBgTXIwAPFjRREjTEMnUI9SUqBrAG FtAST2XTXaYSQyOSKpom3FFYWhXFBpArNdXPNeETKfRKQqKZelJOSaSDG4VmvtAWHgNOFbNO0NOpVaMV NzTVp2YOWpAMHfFNQwdm9MIPRwOTFuVqH4TBFqTTWu XLIgQRngKQGgRYJtGvgvBGLcWQXsKF2JFlCbTYAnYmBvYbCvZWPxGWIrik5SXWWcRMTrPRQxHsPkAOOn NJZbLEzkOYSqCDQ8IMg2UPBtNCPdGG1KDyBdZNErOmZ8BOMyJVWoLDObzf4HPDFbPLFvGIe7LvApATVt RTFrIKbcOTHtRVG7YCP1NPPtOXNxXB9QVzFwFHGwPi owQleoUOTuYDGnlo3KBRRuZLPnBvUdRxOmRRBhJQKjHWrvEVFuKVL3WjJ6NEDjGYVnJB5HUbHxVEQtGu c0RAZfRORjUEYsxo6UXFHoKXQaTKM8QUMuKJXaXMTdCMitRMIzOQO8CBXnTOHkTFAsQJ4XNkYbEMCzUt j9MHVhSUUhWNOmwk8UVWFpPGW4QLRuYYDkOXWuGEXp SPdaKMQkQXBhYpB2ZHIeCHEoVI9GHsXvHXMmPXX5INJrFLSgIRNqvc0UCGMdWTL1DQSfTcQtMGYoAHAb GJrjOYIoUQJuXzi5TPElUIYbLH2NUuVsNMLmZRX9XgqhCJKzAHKuxc5HGHBuZAX9JfXfATWjWUQjJKXg XQw6cqGgnJJnCQr1KC0BF2HyvkWeIscKKj3St508CO N3VLPwBa9WF5sqYc4mLCUlVIPDXg5XASx5DxSeVEUaLAMlGHCvR8E4Q0H7AZRnDgUrItSrS3PzCZD+ID wnBWLqHKIkVvOcAEP9UxljMTU3FWNkQSPiVCIyKWFkYr6bNQQYJa8+IKxsyXNerBmyBUJMBoQqElI0VM ofFVFKFk9Q ID Date Data Source [id number] 07/28/2019 12:48:26 PM [facility] Name Value Range Interpretation Code Description Data Renetta rce(s) Supporting Document(s) Progress Note [facility] WOTBLm7zCpMJHfBz26/OJCtdTAPsz0GqZVfmGKj3PFerVAZtJ1ZgUCS9gU6iCTX1DFoPYnKqIjUzNIVi lbm [file] ICAgICAgICAgICAgICAgICAgICAgICAgICAgICAgICAgICAgICAgICAgICAgICAgICAgICAgICAgDQog ICAgICAgICAgICAgICAgICAgICAgICAgICAgICAgIC AgICAgICAgICAgICAgICAgICAgICAgICAgICAgICAgICAgICAgICAgICAgICAgICAgICAgICAgICAgIC AgICAgICAgDQogICAgICAgICAgICAgICAgICAgICAgICAgICAgICAgICAgICAgICAgICAgICAgICAgIC AgICAgICAgICAgICAgICAgICAgICAgICAgICAgICAg ICAgICAgICAgICAgICAgICAgDQogICAgICAgICAgICAgICAgICAgICAgICAgICAgICAgICAgICAgICAg ICAgICAgICAgICAgICAgICAgICAgICAgICAgICAgICAgICAgICAgICAgICAgICAgICAgICAgICAgICAg DQogICAgICAgICAgICAgICAgICAgICAgICAgICAgIC AgICAgICAgICAgICAgICAgICAgICAgICAgICAgICAgICAgICAgICAgICAgICAgICAgICAgICAgICAgIC AgICAgICAgICAgDQogICAgICAgICAgICAgICAgICAgICAgICAgICAgICAgICAgICAgICAgICAgICAgIC AgICAgICAgICAgICAgICAgICAgICAgICAgICAgICAg ICAgICAgICAgICAgICAgICAgICAgDQogICAgICAgICAgICAgICAgICAgICAgICAgICAgICAgICAgICAg ICAgICAgICAgICAgICAgICAgICAgICAgICAgICAgICAgICAgICAgICAgICAgICAgICAgICAgICAgICAg ICAgDQogICAgICAgICAgICAgICAgICAgICAgICAgIC AgICAgICAgICAgICAgICAgICAgICAgICAgICAgICAgICAgICAgICAgICAgICAgICAgICAgICAgICAgIC AgICAgICAgICAgICAgDQogICAgICAgICAgICAgICAgICAgICAgICAgICAgICAgICAgICAgICAgICAgIC AgICAgICAgICAgICAgICAgICAgICAgICAgICAgICAg ICAgICAgICAgICAgICAgICAgICAgICAgDQogICAgICAgICAgICAgICAgICAgICAgICAgICAgICAgICAg ICAgICAgICAgICAgICAgICAgICAgICAgICAgICAgICAgICAgICAgICAgICAgICAgICAgICAgICAgICAg URWnZDUwIVi8L1zdROJcZUXsDP1fTDw3Uq4+DQoNCm XtYID2ohQipR1XKI4lu2UbPPdsWCZiz1IsWCr6OK6WQYZrUVfgXI9JINobpb8SJVXzQEDdkENYf2ddZn DwNRR2SVLqLuoaKX4DKNTgG4bswtWeABKoUSZOLXddZSTCPUsgEXDFMNOoAALbUbObNuUuUYDxUUKgXG HFUAY0REWvKnRpKBReJUFnJwUxVIEMVO6OLsDkW4Sp jF11DXoFGm0+MXfxgkZmKxxJGxQfWLSiy0OaHMc0CG4QUDVwIfylm0KgLCLzFSMFHZzhCI6SFCZ5UVEz RUYePp0OMKHkO909vjXyAN0QWc6PTnXsVX4pab8ZILStZZLcUgaKExk7BUkhXY5NjYVoXElCkd9arzJr rhXBa7NnuxYuuPSGKZ3aQCoaEBJGWJJ6qehtmGplNP VjIYVqZH2rOk2zMMTiMJX5IkRvUUAJQC8MVAMtTYKimOPvTKRsFFXRUL9JHYkwONQ8NEXlagIdqZSiDW bxHP5THOLabnYnHPSoWQHJKAq+Tg0IWM0jl6VwWOe4LEVvUH1qjo9UFOmLCeJmS3M7uVEsS3Y0KAqiSy 1KJQMvRJEiGDVrACSIOWijIB7LHQ2ixmV7LI1ToQRc FOZeMNHxsHZiTYq0E82kpSJoEKhsCR9IJOK+Cristina+Fi3MLZRiXGEpWGTdClPrRFJOIgDoR5YyH0MZz3Yz R9DaBQ01zUscfqRmVSohGQ1KPN0rCRHeIIMIDU6LqSPpdW1dmqI4EiZkBCNKMmOuD56hiPWnHSPmECHs RRJpCv0AHOKzN0PouoBeoDnlsbOwWCJxBEVEHJ9OFJ bjdsSviBEsdAcbWC84qXjdYD1BGy4TVqOkWQ8lsh4IgHQoJn0PBEM3JV1UFLQfDXBjYTPaSQD9IECcZk ZaBJicMFRxTEXvIUN0SMAgBFReRH3FFrLyREQhUXY1FRQsMIYoDQBshh2VKCEeUSR6XjH3KaEsSDGcNE SxAUsmSYFkZDPiMKS1UXQfQFYnHE2LCkWvPTDnKEV7 PUyjYERmMPWoqd0OQWLuWEYjOSNqUzRiPBEtXBQiXYdzWIBtNLH7XMcwIZLfQHNjKY4FAaSyXMJmXNQg BNvmVSZgMSAczn2UIXHpASQnZYGkPkBsSQRdYUTxZMbuLUOxVVE7EVX2RJHjHKYcBF0YWvLwDMNbZKK2 JsleQUBaXJCwpc4INWGiQDXwLMr3UgMdUWMcTXWaZT vzXAVcGOF6Xbo2ZNKtTZKzWB2LIeCiHQCiLTV3FVNdPJMxDYLvgn5OSOJrIQXqYbB3EBJmBJRsPTRcEJ pxWIHjIHF3YvdcSGAiKVIxAQ2INoJlFCTkChT3DSLjHVKfYAYdul5HHSEwQTJnYFp5TgCnBZFgWPEyEJ ezPLXmCAH7FWR8OMJkTYLfEG7SLxSvHVKsBwEqHCFy SRFmNVRrbz4UGWKbWJGjCcT6KhLsVNMxDRApHYqqWQClKWB0Wpn4CPUzHCUvXE0FQqLbFRSuQvg7DChq LUIqSIUgnf6HNQGcQBRwPrs5ZFDhTTOpBGNmOKzaAGKlSEP1DKZ2TLWyOASuMU0DLtTcJBNiVyfqRSnt PXUqLYDidk6RXUEtSHRqLZK4HOHsEMLxEZXgXOisMI VrEFK2CJb8VGQdGFLdYE6ZSeEzGCJxFMS2PXhhVDPbMCHeay5YDPDgLGF0WGYlZuLqMPZjGMNdNQmrFP XsZAFyTFBeISJaPXUbLG0KDlUgLCPaLRT2DZSyPFDzCKItai1MTHFiQET6ZHpsFvJcJNOfCCOaKMzaAF PfCYMmSkmuLTYaYFIcAI6LKuLtTCLfQDB7AfwyOBPx MYSmwh4COXAnAWJ9DiS6XeTiEVQiQUTePYatNUHcAMQaYOi9YJLiLEHnRR4XMiXuJDFzKpJ6EVYcFXDn CMOpxu4YCBLsRSM4DtRpVpHqCYCpRQAlRAmeTKOyNRkoLdUnZHYgDAZeCM0PKpKySQTuIHCsKMVzSAQy ZWYmgb6WJAUmSLX3NkziHKPzIRFhVDXiELjtBOXaWW qlJRG3HYAvRRMfLM1LDbWoRCTyGUQ5YmJnSVSkHMMnbq5IaZRcgNgkjk1ZFPyNOy4ElYexCOI8AUfbGg 1pjNV6NNIjZGMEVq5WsgDtVLHaEDPSSRlhCQPpZKA7JuYnWSUiU6AgVDEyEvJwZaxqRSF6PwNlNhS1Yo E8TuI6HhX3JFQzIWM6KiXwUpXsSaTyXoV8HOh2CYAu YzhjMzk+VH1xFJm+Ph0Xo4ItrdH0cgApGCy5XhObOL1DVFHKK9XWDz== ID Date Data Source [id number] 07/28/2019 10:25:56 AM [facility] Name Value Range Interpretation Code Description Data Renetta rce(s) Supporting Document(s) Hemoglobin A1c/Hemoglobin.total in Blood 7.9 % 4.0-6.0 [facility] Glucose mean value [Mass/volume] in Blood Estimated fr om glycated hemoglobin 180 mg/dL <126 [facility] ID Date Data Source [id number] 07/28/2019 10:13:43 AM [facility] Name Value Range Interpretation Code Description Data Renetta rce(s) Supporting Document(s) Glucose [Mass/volume] in Capillary blood by Glucometer 111 mg/dL 70- 140 [facility] ID Date Data Source [id number] 07/16/2019 12:00:00 PM EST [facility] ([facility]) Name Value Range Interpretation Code Description Data Renetta rce(s) Supporting Document(s) Prothrombin Time 13.7 s 11.8-14.0 [facility] ([facility]) Inr 1.08 [facility] ([facility]) THERAPUTIC HUMAN INR VALUES INDICATIONS NORMAL RANGES PROPHYLAXIS/TREATMENT OF: VENOUS THROMBOSIS 2.0-3.0 PULMONARY EMBOLISM 2.0-3.0 PREVENTION OF SYSTEMIC EMBOLISM FROM: TISSUE HEART VALVES 2.0-3.0 ACUTE MYOCARDIAL INFARCTION 2.0-3.0 VALVULAR HEART DISEASE 2.0-3.0 ATRIAL FIBRILLATION 2.0-3.0 MECHANICAL VALVES(HIGH RISK) 2.5-3.5 RECURRENT MYOCARDIAL INFARCTION 2.5-3.5 ID Date Data Source [id number] 07/16/2019 12:00:00 PM EST [facility] ([facility]) Name Value Range Interpretation Code Description Data Renetta rce(s) Supporting Document(s) Sodium Level 142 meq/L 136-145 [facility] ([facility]) Potassium Serum 4.0 meq/L 3.5-5.1 [facility] ([facility]) Chloride Level 108 meq/L 98-107 [facility] ([facility]) Carbon Dioxide Level 26 meq/L 21-32 [facility] ([facility]) Anion Gap 8 meq/L 8-16 [facility] ID Date Data Source [id number] 07/16/2019 12:00:00 PM EST [facility] ([facility]) Name Value Range Interpretation Code Description Data Renetta rce(s) Supporting Document(s) White Blood Count 5.3 10 4.0-10.0 [facility] ([facility]) Red Blood Count 5.17 10 4.30-6.10 [facility] ([facility]) Hematocrit 46.0 % 42.0-52.0 [facility] ([facility]) Hemoglobin 15.6 g/dL 13.5-17.5 [facility] ([facility]) Mean Corpuscular Hemoglobin 30.2 pg 27.0-33.0 [facility] ([facility]) Mean Corpuscular HGB Conc 33.9 g/dL 32.0-36.5 [facility] ([facility]) Mean Corpuscular Volume 89.0 fl 80.0-96.0 M EDENT ([facility]) Platelet Count, Automated 167 10 150-450 [facility] ([facility]) Red Cell Distribution Width 12.9 % 11.5-14.5 [facility] ([facility]) Nucleated Red Blood Cell % 0.0 % 0-0 MED ENT ([facility]) Procedure Social History Code Duration Value Status Description Data Source(s ) Smoking 06/15/2020 12:00:00 AM EST Never Smoker completed Never S moker eCW1 ([facility]) Smoking 06/15/2020 12:00:00 AM EST Never Smoker completed Never S moker eCW1 ([facility]) Smoking 06/15/2020 12:00:00 AM EST Never Smoker completed Never S moker eCW1 ([facility]) Smoking 06/15/2020 12:00:00 AM EST Never Smoker completed Never S moker eCW1 ([facility]) Smoking 06/15/2020 12:00:00 AM EST Never Smoker completed Never S moker eCW1 ([facility]) Smoking 06/15/2020 12:00:00 AM EST Never Smoker completed Never S moker eCW1 ([facility]) Smoking 06/15/2020 12:00:00 AM EST Never Smoker completed Never S moker eCW1 ([facility]) Smoking 06/15/2020 12:00:00 AM EST Never Smoker completed Never S moker eCW1 ([facility]) Smoking 06/15/2020 12:00:00 AM EST Never Smoker completed Never S moker eCW1 ([facility]) Smoking 06/15/2020 12:00:00 AM EST Never Smoker completed Never S moker eCW1 ([facility]) Smoking 05/24/2020 12:00:00 AM EST Never Smoker completed Never S moker eCW1 ([facility]) Smoking 05/24/2020 12:00:00 AM EST Never Smoker completed Never S moker eCW1 ([facility]) Smoking 05/24/2020 12:00:00 AM EST Never Smoker completed Never S moker eCW1 ([facility]) Smoking 05/24/2020 12:00:00 AM EST Never Smoker completed Never S moker eCW1 ([facility]) Smoking 05/12/2020 12:00:00 AM EST Patient has never smoked co mpleted Patient has never smoked [facility] ([facility]) Smoking 03/30/2020 12:00:00 AM EDT Never Smoked Cigarettes com pleted Never Smoked Cigarettes [facility] ([facility]) Alcohol intake 10/28/2019 12:00:00 AM EDT Current drinker of al cohol (finding) completed Current drinker of alcohol (finding) [facility] Tobacco use and exposure 10/28/2019 12:00:00 AM EDT Current user co mpleted Current user [facility] Smoking 10/28/2019 12:00:00 AM EDT Never smoker completed Never [facility] Smoking 10/28/2019 12:00:00 AM EDT Never smoker completed Never [facility] Alcohol intake 07/28/2019 12:00:00 AM EST Current drinker of al cohol (finding) completed Current drinker of alcohol (finding) [facility] Smoking 07/28/2019 12:00:00 AM EST Never smoker completed Never [facility] Vital Signs ID Date Data Source UNK Name Value Range Interpretation Code Description Data Source(s) Diastolic blood pressure 68 mm[Hg] 68 mm[Hg] eCW1 ([facility]) Systolic blood pressure 138 mm[Hg] 138 mm[Hg] e CW1 ([facility]) Body temperature 96.8 [degF] 96.8 [degF] eCW1 ( [facility]) Respiratory rate 16 /min 16 /min eCW1 ([facility]) Heart rate 69 /min 69 /min eCW1 ([facility]) Body mass index (BMI) [Ratio] 36.68 kg/m2 36.68 kg/m2 W1 ([facility]) Body height 71 [in_i] 71 [in_i] eCW1 ([facility]) Body weight 263 [lb_av] 263 [lb_av] eCW1 ([facility]) Diastolic blood pressure 78 mm[Hg] 78 mm[Hg] eCW1 ([facility]) Systolic blood pressure 124 mm[Hg] 124 mm[Hg] e CW1 ([facility]) Body temperature 97.1 [degF] 97.1 [degF] eCW1 ( [facility]) Respiratory rate 16 /min 16 /min eCW1 ([facility]) Heart rate 67 /min 67 /min eCW1 ([facility]) Body mass index (BMI) [Ratio] 36.40 kg/m2 36.40 kg/m2 eCW1 ([facility]) Body height 71 [in_i] 71 [in_i] eCW1 ([facility]) Body weight 261 [lb_av] 261 [lb_av] eCW1 ([facility]) Diastolic blood pressure--sitting 78 mm[Hg] 78 mm[Hg] MEDENT ([facility]) large cuff, Ra Systolic blood pressure--sitting 140 mm[Hg] 140 mm[Hg] [facility] ([facility]) large cuff, Ra Heart rate 61 /min 61 /min [facility] ([facility] Body mass index (BMI) [Ratio] 36.4 kg/m2 36.4 k g/m2 [facility] ([facility]) Body height 71 [in_i] 71 [in_i] [facility] ([facility]) 5'11" Body weight 261.00 [lb_av] 261.00 [lb_av] MEDEN T ([facility]) Body weight 119.297 kg 119.297 [facility] Body mass index (BMI) [Ratio] 37.7 kg/m2 37.7 k g/m2 [facility] ([facility], ) Body weight 263.00 [lb_av] 263.00 [lb_av] MEDEN T ([facility], ) Body height 70 [in_i] 70 [in_i] [facility] 5'10" Body temperature 97.1 [degF] 97.1 [degF] [facility] ([facility], ) Oxygen saturation in Arterial blood by Pulse oximetry 96 % 96 % [facility] ([facility], ) Heart rate 65 /min 65 /min [facility] ([facility], ) Diastolic blood pressure 68 mm[Hg] 68 mm[Hg] [facility] ([facility], ) Systolic blood pressure 124 mm[Hg] 124 mm[Hg] M EDENT ([facility], ) Diastolic blood pressure--sitting 78 mm[Hg] 78 mm[Hg] [facility] ([facility]) large cuff, Ra Systolic blood pressure--sitting 126 mm[Hg] 126 mm[Hg] [facility] ([facility]) large cuff, Ra Heart rate 67 /min 67 /min [facility] ([facility] Body mass index (BMI) [Ratio] 37.1 kg/m2 37.1 k g/m2 [facility] ([facility]) Body height 71 [in_i] 71 [in_i] [facility] ([facility] 5'11" Body weight 266.00 [lb_av] 266.00 [lb_av] MEDEN T ([facility]) Respiratory rate 18 /min 18 /min eCW1 ([facility]) Heart rate 71 /min 71 /min eCW1 ([facility]) Body mass index (BMI) [Ratio] 36.82 kg/m2 36.82 kg/m2 eCW1 ([facility]) Body height 71 [in_us] 71 [in_us] eCW1 ([facility]) Body weight Measured 264 [lb_av] 264 [lb_av] eC W1 ([facility]) Diastolic blood pressure 84 mm[Hg] 84 mm[Hg] eCW1 ([facility]) Systolic blood pressure 158 mm[Hg] 158 mm[Hg] e CW1 ([facility]) Body temperature 97.4 [degF] 97.4 [degF] eCW1 ( [facility]) Body weight 122.472 kg 122.472 kg [facility] ([facility], ) Body mass index (BMI) [Ratio] 38.7 kg/m2 38.7 k g/m2 [facility] ([facility], ) Body weight 270.00 [lb_av] 270.00 [lb_av] MEDEN T ([facility], ) Body height 70 [in_i] 70 [in_i] [facility] ([facility], ) 5'10" Body temperature 97.2 [degF] 97.2 [degF] [facility] ([facility], ) Oxygen saturation in Arterial blood by Pulse oximetry 96 % 96 % [facility] ([facility], ) Heart rate 65 /min 65 /min [facility] ([facility], ) Diastolic blood pressure 82 mm[Hg] 82 mm[Hg] [facility] ([facility], ) Systolic blood pressure 150 mm[Hg] 150 mm[Hg] M EDENT ([facility], ) Body mass index (BMI) [Ratio] 37.2 kg/m2 37.2 k g/m2 [facility] ([facility] Body weight 263.00 [lb_av] 263.00 [lb_av] MEDEN T ([facility] Body height 70.5 [in_i] 70.5 [in_i] [facility] ([facility] 5'10.50" Oxygen saturation in Arterial blood by Pulse oximetry 95 % 95 % [facility] ([facility] Heart rate 78 /min 78 /min MEDENT ([facility] Diastolic blood pressure 70 mm[Hg] 70 mm[Hg] MEDENT ([facility] Systolic blood pressure 122 mm[Hg] 122 mm[Hg] M EDENT ([facility] Diastolic blood pressure 72 mm[Hg] 72 mm[Hg] W1 ([facility]) Systolic blood pressure 136 mm[Hg] 136 mm[Hg] e CW1 ([facility]) Body mass index (BMI) [Ratio] 36.82 kg/m2 36.82 kg/m2 eCW1 ([facility]) Body height 71 [in_us] 71 [in_us] W1 ([facility]) Body weight Measured 264 [lb_av] 264 [lb_av] eC W1 ([facility]) Diastolic blood pressure 72 mm[Hg] 72 mm[Hg] eCW1 ([facility]) Systolic blood pressure 145 mm[Hg] 145 mm[Hg] e CW1 ([facility]) Body temperature 98.3 [degF] 98.3 [degF] eCW1 ( [facility]) Respiratory rate 18 /min 18 /min eCW1 ([facility]) Heart rate 64 /min 64 /min eCW1 ([facility]) Body mass index (BMI) [Ratio] 36.54 kg/m2 36.54 kg/m2 eCW1 ([facility]) Body height 71 [in_us] 71 [in_us] eCW1 ([facility]) Body weight Measured 262 [lb_av] 262 [lb_av] eC W1 ([facility]) Body weight 118.390 kg 118.390 kg MEDENT ([facility], ) Body mass index (BMI) [Ratio] 36.4 kg/m2 36.4 k g/m2 [facility] ([facility]) Body weight 261.00 [lb_av] 261.00 [lb_av] MEDEN T ([facility]) Body height 71 [in_i] 71 [in_i] [facility], [facility] 5'11" Diastolic blood pressure 80 mm[Hg] 80 mm[Hg] [facility] ([facility]) Systolic blood pressure 149 mm[Hg] 149 mm[Hg] M EDENT ([facility]) Diastolic blood pressure--sitting 76 mm[Hg] 76 mm[Hg] [facility] large cuff, [place] Systolic blood pressure--sitting 138 mm[Hg] 138 mm[Hg] [facility] large cuff, [place] Heart rate 63 /min 63 /min MEDENT ([facility] Body mass index (BMI) [Ratio] 36.5 kg/m2 36.5 k g/m2 MEDENT ([facility]) Body height 71 [in_i] 71 [in_i] MEDENT ([facility] 5'11" Body weight 262.00 [lb_av] 262.00 [lb_av] MEDEN T ([facility]) ID Date Data Source [id number] 04/24/2020 10:52:[facility] Name Value Range Interpretation Code Description Data Source(s) WEIGHT RECORDED 261.6 lb 261.6 lb [facility] Body height Measured 70.08 in 70.08 in [facility] ID Date Data Source [id number] 01/03/2020 11:02:56 AM [facility] Name Value Range Interpretation Code Description Data Source(s) WEIGHT RECORDED 261 lb 261 lb [facility] Body height Measured 70 in 70 in [facility] ID Date Data Source [id number] 07/28/2019 10:41:46 AM [facility] Name Value Range Interpretation Code Description Data Source(s) WEIGHT RECORDED 261 lb 261 lb [facility] Body height Measured 70 in 70 in [facility] Patient Treatment Plan of Care Planned Activity Planned Date Details Description Data Source (s) atorvastatin 40 MG Oral Tablet 04/20/2020 12:00:00 AM [facility] Cholecalciferol 4000 UNT Oral Capsule 04/20/2020 12:00:00 AM [facility] 0.5 ML dulaglutide 3 MG/ML Auto-Injector [Trulicity] 020 12:00:00 AM [facility] OneTouch Delica Lancets 33G 04/20/2020 12:00:00 AM [facility] 3 ML insulin detemir 100 UNT/ML Pen Injector [Levemir] 04/20/2020 12:00:[address] [facility] 3 ML Insulin, Aspart, Human 100 UNT/ML Pen Injector [N ovoLog] 04/20/2020 12:00:[address] [facility] FreeStyle Shabbir 14 Day Sensor 04/20/2020 12:00:00 AM [facility] Losartan Potassium 100 MG Oral Tablet 04/19/2020 12:00:00 AM [facility] Naproxen 500 MG Oral Tablet 03/25/2020 12:00:00 AM [facility] BD Pen Needle Original U/F 29G X 12.7MM (Insulin Pen N eedle) 03/21/2020 12:00:[address] [facility] Levothyroxine Sodium 0.125 MG Oral Tablet 03/21/2020 12:00:00 AM [facility] Cholecalciferol 1000 UNT Oral Tablet 03/21/2020 12:00:00 AM [facility] tizanidine 4 MG Oral Tablet 11/24/2019 12:00:00 AM [place] [id number] ([facility]) Naproxen 500 MG Oral Tablet 11/24/2019 12:00:00 AM [place] [id number] ([facility]) FreeStyle Shabbir 14 Day Sensor 11/23/2019 12:00:00 AM [facility] Baclofen 10 MG Oral Tablet 11/18/2019 12:00:00 AM [facility] Insulin Pen Needle 29G X 12.7MM (BD ULTRA-FINE PEN NEE DLES) 10/28/2019 12:00:[address] [facility] 0.5 ML dulaglutide 3 MG/ML Auto-Injector [Trulicity] 12:00:00 AM [facility] pantoprazole 40 MG Delayed Release Oral Tablet 10/01/2019 12:00:00 AM [facility] Losartan Potassium 50 MG Oral Tablet 10/01/2019 12:00:00 AM [facility] Terbinafine hydrochloride 10 MG/ML Topical Cream 09/28/2019 12:00:0 0 AM [facility] Insulin Pen Needle 29G X 12.7MM (BD ULTRA-FINE PEN NEE DLES) 09/06/2019 12:00:00 AM [facility] Ondansetron 4 MG Disintegrating Oral Tablet 09/04/2019 12:00:00 AM [facility] Terbinafine hydrochloride 10 MG/ML Topical Cream 08/27/2019 12:00:0 0 AM [place] [id number] ([facility]) 3 ML insulin detemir 100 UNT/ML Pen Injector 07/28/2019 12:00:00 AM [facility] 3 ML Insulin, Aspart, Human 100 UNT/ML Pen Injector 07/28/19 12:00:00 AM [facility] Cholecalciferol 1000 UNT Oral Tablet 07/28/2019 12:00:00 AM [facility] Levothyroxine Sodium 0.125 MG Oral Tablet 07/28/2019 12:00:00 AM [facility] FreeStyle Shabbir 14 Day Sensor 07/28/2019 12:00:00 AM [facility] 0.5 ML dulaglutide 3 MG/ML Auto-Injector 07/28/2019 12:00:00 AM [facility] Insulin Pen Needle 29G X 12.7MM (BD ULTRA-FINE PEN NEE DLES) 07/02/2019 12:00:00 AM [facility] 0.5 ML dulaglutide 3 MG/ML Auto-Injector 05/28/2019 12:00:00 AM [facility] 3 ML Insulin, Aspart, Human 100 UNT/ML Pen Injector 05/28/20 12:00:00 AM [facility] 3 ML insulin detemir 100 UNT/ML Pen Injector 05/28/2019 12:00:00 AM [facility] Continuous Blood Gluc Sensor (FREESTYLE SHABBIR 14 DAY S ENSOR) [facility] 03/10/2019 12:00:[address] [facility] Cholecalciferol 1000 UNT Oral Tablet 12/02/2018 12:00:00 AM [facility] Levothyroxine Sodium 0.125 MG Oral Tablet 10/26/2018 12:00:00 AM [facility] JAZZY BLANC 33G [facility] 06/17/2017 12:00:00 AM [facility]
--- NOTE | 2020-07-21 16:01 | REP ---
INDICATION: DYSPNEA/COUGH. COMPARISON: 07/19/2020. TECHNIQUE: SINGLE PORTABLE AP VIEW OF THE CHEST WAS PERFORMED. FINDINGS: Diffuse bilateral infiltrates are again noted appearing quite similar to the prior exam. Heart mediastinum appear unchanged. IMPRESSION: Stable diffuse bilateral infiltrates. <Electronically signed by Massimo Casillas > 07/21/20 1551
[2020-07-21 16:13] LABS: BASO % 0.1 % (0.0-1.0); EOS # 0.1 10^3/uL (0.0-0.5); EOS % 1.1 % (0.0-3.0); HEMATOCRIT 37.5 % (42.0-52.0); HEMOGLOBIN 12.8 g/dl (13.5-17.5); LYMPH # 0.8 10^3/uL (1.5-5.0); LYMPH % 10.8 % (24.0-44.0); MEAN CORPUSCULAR HEMOGLOBIN 29.6 pg (27.0-33.0); MEAN CORPUSCULAR HGB CONC 34.1 g/dl (32.0-36.5); MEAN CORPUSCULAR VOLUME 86.8 fl (80.0-96.0); MONO # 0.5 10^3/uL (0.0-0.8); MONO % 6.6 % (0.0-5.0); NEUTROPHILS % 79.8 % (36.0-66.0); RED BLOOD COUNT 4.32 10^6/uL (4.30-6.10); WHITE BLOOD COUNT 7.5 10^3/uL (4.0-10.0)
[2020-07-21 16:30] LABS: INR 1.09; PROTHROMBIN TIME 14.4 SECONDS (12.5-14.3)
--- OUTSIDE RECORDS SUMMARY | 2020-07-21 16:48 | CCD ---
Author Author [facility] Organization [facility] Address Unknown Phone Unavailable Care Team Providers Care Decorating Supervisor Name Role Phone Jeremy Fatima MD [...] RACHEL WRIGHT Unavailable Unavailable Chase, L Antonella HERB DOCTOR Unavailable Unavailable Chase, L Antonella HERB DOCTOR Unavailable Unavailable Chase, L Antonella HERB DOCTOR Unavailable Unavailable Chase, L Antonella HERB DOCTOR Unavailable Unavailable Chase, L Antonella HERB DOCTOR Unavailable Unavailable Chase, L Antonella HERB DOCTOR Unavailable Unavailable Chase, L Antonella HERB DOCTOR Unavailable Unavailable Chase, L Antonella HERB DOCTOR Unavailable Unavailable Chase, L Antonella HERB DOCTOR Unavailable Unavailable Chase, L Antonella HERB DOCTOR Unavailable Unavailable Chase, L Antonella HERB DOCTOR Unavailable Unavailable Chase, L Antonella HERB DOCTOR Unavailable Unavailable Chase, L Antonella HERB DOCTOR Unavailable Unavailable Chase, L Antonella HERB DOCTOR Unavailable Unavailable Chase, L Antonella HERB DOCTOR Unavailable Unavailable Chase, L Antonella HERB DOCTOR Unavailable Unavailable Chase, L Antonella HERB DOCTOR Unavailable Unavailable Chase, L Antonella HERB DOCTOR Unavailable Unavailable Chase, L Antonella HERB DOCTOR Unavailable Unavailable Chase, L Antonella HERB DOCTOR Unavailable Unavailable Chase, L Antonella HERB DOCTOR Unavailable Unavailable Chase, L Antonella HERB DOCTOR Unavailable Unavailable Re-disclosure Warning The records that [...] is protected by Article 27-F of the [place] State Public Health law. If you continue you may have access to information: Regarding HIV / AIDS; Provided by facilities licensed or operated by the [facility] Office of Mental Health; or Provided by the [facility] Office for People With Developmental Disabilities. If such information is present, then the following [facility] mandated warning applies: This information has been [...] law may result in a fine or alf sentence or both. A general authorization for the release of medical or other information is NOT sufficient authorization for further disc losure. Allergies and Adverse Reactions Type Description Substance Reaction Status Data Source(s ) Drug allergy Cefdinir cefdinir Tongue tingling Active eCW1 ( [facility]) Drug allergy Augmentin amoxicillin / clavulanate Unknown Active eCW1 ([facility]) Drug allergy Pseudoephedrine HCl Pseudoephedrine hospitalized for hypertensive urgency Active eCW1 ([facility]) sh[place]nee shaw[place] shawnee Anaphylaxis Active eCW1 ([facility]) shawnee shawnee shawnee Anaphylaxis Active eCW1 ([facility]) shawnee shawnee shawnee Anaphylaxis Active eCW1 ([facility]) shawnee shawnee shawnee Anaphylaxis Active eCW1 ([facility]) Family History Family Member Name Family Member Gender Family Member Status Date o f Status Description Data Source(s) Unknown Male Problem MEDENT ([facility]) Unknown Unknown Problem MEDENT ([facility] ) Unknown Unknown Problem MEDENT ([facility] ) Unknown Unknown Problem MEDENT ([facility] ) Unknown Female Problem MEDENT ([facility]) Unknown Female Problem MEDENT ([facility]) Encounters Encounter Providers Location Date Indications Data Source(s ) Outpatient Attender: SATYA ANDERSON 11/01/2020 12:00:0 0 AM [facility] Outpatient Attender: Evan Gonzalez 08/03/2020 12:00:00 AM [facility] Unknown [address] [facility] [address] 07/20/2020 12:00:00 AM EST eCW1 ([facility]) [place] [address] [facility] [address] 07/20/2020 12:00:00 AM EST eCW1 ([facility]) [place] [address] [facility] [address] 07/13/2020 12:00:00 AM EST eCW1 ([facility]) [place] [address] [facility] [address] 07/13/2020 12:00:00 AM EST eCW1 ([facility]) [place] [address] [facility] [address] 07/11/2020 12:00:00 AM EST eCW1 ([facility]) [place] [address] [facility] [address] 07/11/2020 12:00:00 AM EST eCW1 ([facility]) [place] [address] [facility] [address] 07/10/2020 12:00:00 AM EST eCW1 ([facility]) [place] [address] [facility] [address] 07/05/2020 12:00:00 AM EST eCW1 ([facility]) [place] [address] [facility] [address] 07/04/2020 12:00:00 AM EST eCW1 ([facility]) Outpatient [address] [facility] [address] 06/15/2020 12:00:00 AM EST eCW1 ([facility]) Unknown [address] [facility] [address] 06/09/2020 12:00:00 AM EST eCW1 ([facility]) [place] [address] [facility] [place] [address] 06/08/2020 12:00:00 AM EST eCW1 ([facility]) Unknown [address] [facility] [address] 05/26/2020 12:00:00 AM EST eCW1 ([facility]) Outpatient [address] [facility] [place] [address] 05/24/2020 12:00:00 AM EST eCW1 ([facility]) Outpatient Attender: Jessie ANDERSON Main Office 05/12/2020 07:15:0 0 AM EST MEDENT ([facility]) Outpatient Attender: SATYA ANDERSON [id number] 12:00:00 AM EDT - 04/20/2020 12:42:09 PM EDT Type 2 diabetes mellitus with hyperglycemia [facility] Type 2 diabetes mellitus with hyperglyce starla Outpatient Attender: Antonella Madera/Clarisa/Yasmany/Reinleif 03/30/2020 10:00:00 AM EDT MEDENT ([facility]) Outpatient Attender: Evan Gonzalez 01/27/2020 12:00:00 AM EDT [facility] Outpatient Attender: Jessie ANDERSON Main Office 12/03/2019 09:45:0 0 AM EDT MED[facility] ([facility]) [address] [address] 11/30/2019 12:00:00 AM EDT eCW1 ([facility]) Outpatient Referrer: Tristan Fatima MD 11/26/2019 05:14:00 AM EDT [facility] [address] [address] 11/25/2019 12:00:00 AM EDT eCW1 ([facility]) [address] [address] 11/24/2019 12:00:00 AM EDT eCW1 ([facility]) [address] [address] 11/22/2019 12:00:00 AM EDT eCW1 ([facility]) [address] [place] [address] 11/22/2019 12:00:00 AM EDT eCW1 ([facility]) [address] [address] 11/19/2019 12:00:00 AM EDT eCW1 ([facility]) [address] [address] 11/17/2019 12:00:00 AM EDT eCW1 ([facility]) Outpatient Attender: Antonella Madera/Clarisa/Yasmany/Cande 11/02/2019 10:30:00 AM EDT MEDENT ([facility]) Outpatient Attender: SATYA [id number] 12:00:00 AM EDT - 10/28/2019 12:30:32 PM EDT Type 2 diabetes mellitus with hyperglycemia [facility] Type 2 diabetes mellitus with hyperglyce starla [address] [address] 10/12/2019 12:00:00 AM EDT eCW1 ([facility]) Outpatient Attender: Antonella Stone NP Main Office 09/16/2019 10:00:00 AM EDT MEDENT ([facility] Outpatient Referrer: Tristan Fatima MD 09/09/2019 11:44:00 AM EST [facility] [address] [address] 08/27/2019 12:00:00 AM EST eCW1 ([facility]) [address] [address] 08/12/2019 12:00:00 AM EST eCW1 ([facility]) Outpatient Referrer: Tristan Fatima MD 07/29/2019 09:04:00 PM EST [facility] Outpatient Attender: SATYA ANDERSON [id number] 12:00:00 AM EST - 07/28/2019 10:49:43 AM EST Type 2 diabetes mellitus with hyperglycemia [facility] Type 2 diabetes mellitus with hyperglyce starla [address], [facility] [address] 07/19/2019 12:00:00 AM EST eCW1 ([facility]) [address] [address] 07/16/2019 12:00:00 AM EST eCW1 ([facility]) Outpatient Attender: RACHEL Madera/Clarisa/Yasmany/Singh yadav 07/14/2019 10:00:00 AM EST MED[facility] ([facility] [place] [address] [facility], [facility] [address] 07/13/2019 12:00:00 AM EST eCW1 ([facility]) Outpatient Attender: Jessie ANDERSON Main Office 07/09/2019 10:30:0 0 AM EST MEDENT ([facility]) [facility] [address] [place] [address] 06/02/2019 12:00:00 AM EST eCW1 ([facility]) Medications Medication Brand Name Start Date Product [...] ORAL active [facility] ([facility]) 100 unit/mL 04/30/2020 12:00:00 AM EDT insulin [...] Take 1 capsu le by mouth daily [facility] 0.4 mg 04/20/2020 12:00:00 AM EDT tablet, sublingual [address] ONE TABLET UNDER THE TONGUE EVERY 5 MINUTES FOR UP TO 3 DOSES NEEDED FOR CHEST PAIN. IF CHEST PAIN STILL PERSISTS CONTACT [address] ONE TABLET UNDER THE TONGUE EVERY 5 MINUTES FOR UP TO 3 DOSES NEEDED FOR CHEST PAIN. IF CHEST PAIN STILL PERSISTS CONTACT 911 SOLD: 07/19/2020 [facility] atorvastatin 40 MG Oral Tablet Atorvastatin Calcium 40 MG Oral Tablet (LIPITOR) Atorvastatin Calcium 40 MG Oral Tablet (LIPITOR) 04/20/2020 12:00:00 AM EDT active [facility] 3 ML Insulin, Aspart, Human 100 UNT/ML P en Injector [NovoLog] NovoLOG FlexPen 100 UNIT/ML Subcutaneous Solution Pen-injector (insulin aspart) NovoLOG FlexPen 100 UNIT/ML Subcutaneous Solution Pen-injector (insulin aspart) 04/20/2020 12:00:00 AM EDT active Type 2 diabetes mellitus with hyperglycemia, with long-term current use of insulin Inject subq malik y per insulin orders. MDD 140 units with titration and priming. Dx: E11.65. [facility] Type 2 diabetes mellitus with hyperglyce starla, with long-term current use of insulin FreeStyle Shabbir 14 Day Sensor [id number] 04/20/2020 12:00:00 AM EDT active Type 2 diabetes mellitus with hyperglyce starla, with long-term current use of insulin Use as directed. Change every 14 days. Dx: E11.65 [facility] Type 2 diabetes mellitus with hyperglyce starla, [...] of priming and titiration. Dx code: E11.65 [facility] Type 2 diabetes mellitus with hyperglyce starla, with long-term current use of insulin [employer] [facility] [address] [address] 04/20/2020 12:00:00 AM EDT active Type 2 diabetes mellitus with hyperglyce starla, with long-term current use of insulin Use to test blood sugar up to 4 times da adeola. Dx: e11.65 [facility] Type 2 diabetes mellitus with hyperglyce starla, [...] into the sk in once a week [facility] Type 2 diabetes mellitus with hyperglyce starla, [...] (COZAAR) 10/14/2 020 12:00:00 AM EDT active [facility] Naproxen 500 MG Oral Tablet Naproxen 500 MG Oral Table t (NAPROSYN) Naproxen 500 MG Oral Tablet (NAPROSYN) 03/25/2020 12:00:00 AM EDT active TAKE ONE TABLET BY MOUTH EVERY 12 HOURS WITH FOOD OR MILK NEEDED [facility] Levothyroxine Sodium 0.125 MG Oral Table t Levothyroxine Sodium 125 MCG Oral Tablet (SYNTHROID) Levothyroxine Sodium 125 MCG Oral Tablet (SYNTHROID) 03/21/2020 12:00:00 AM EDT active Other specified hypothyroidism TAKE ONE TABLET BY MOUTH EVERY DAY [facility] Other specified hypothyroidism Cholecalciferol 1000 UNT Oral Tablet Vit olmedo D3 25 MCG (1000 UT) Oral Tablet (CHOLECALCIFEROL) Vitamin D3 25 MCG (1000 UT) Oral Tablet (CHOLECALCIFER OL) 03/21/2020 12:00:00 AM EDT aborted TAKE THREE TABLETS BY MOUTH EVERY DAY [facility] BD Pen Needle Original U/F 29G X 12.7MM (Insulin Pen Needle) [id number] 03/21/2020 12:00:00 AM EDT act artemio Type 2 diabetes mellitus with hyperglycemia, with long-term current use of insulin U se as directed. INJECT DIRECTED UP TO 5 TIMES A DAY [facility] Type 2 diabetes mellitus with hyperglyce starla, with long-term current use of insulin CPAP 12/15/2019 12:00:00 AM EDT active MEDENT ([facility]) Losartan Potassium 100 MG Oral Tablet Losartan Potassium 12:00:00 AM EDT ORAL active [facility] ([facility] 100 mg 12/03/2019 12:00:00 AM EDT tablet 90 TAKE ONE TABLET BY MOUTH EVERY DAY AT BEDTIME TAKE ONE TABLET BY MOUTH EVERY DAY AT BEDTIME SOLD: 12/06/2019 [facility] Cholecalciferol 1000 UNT Oral Capsule Vitamin D3 12/02/2019 12:00:00 AM EDT ORAL completed [facility] ([facility]) 10 mg 11/30/2019 12:00:00 AM EDT tablet 90 TAKE ONE TABLET BY MOUTH EVERY DAY TAKE ONE TABLET BY MOUTH EVERY DAY SOLD: 12/01/2019 [facility] Naproxen 500 MG Oral Tablet Naproxen 500 MG 11/24/2019 12:00:00 AM EDT active Naproxen 500 MG eCW1 ([facility]) Naproxen 500 MG Oral Tablet Naproxen 500 MG 11/24/2019 12:00:00 AM EDT active Naproxen 500 MG eCW1 ([facility]) tizanidine 4 MG Oral Tablet Tizanidine HCl 4 MG Tizanidine H Cl 4 MG 11/24/2019 12:00:00 AM EDT 1.0 {tablet_as_needed} active Tizanidine HCl 4 MG eCW1 ([facility]) Naproxen 500 MG Oral Tablet Naproxen 500 MG 11/24/2019 12:00:00 AM EDT active Naproxen 500 MG eCW1 ([facility]) tizanidine 4 MG Oral Tablet Tizanidine HCl 4 MG Tizanidine H Cl 4 MG 11/24/2019 12:00:00 AM EDT 1.0 {tablet_as_needed} active Tizanidine HCl 4 MG eCW1 ([facility]) Naproxen 500 MG Oral Tablet Naproxen 500 MG 11/24/2019 12:00:00 AM EDT active Naproxen 500 MG eCW1 ([facility]) tizanidine 4 MG Oral Tablet Tizanidine HCl 4 MG Tizanidine H Cl 4 MG 11/24/2019 12:00:00 AM EDT 1.0 {tablet_as_needed} active Tizanidine HCl 4 MG eCW1 ([facility]) Naproxen 500 MG Oral Tablet Naproxen 500 MG 11/24/2019 12:00:00 AM EDT active Naproxen 500 MG eCW1 ([facility]) Naproxen 500 MG Oral Tablet Naproxen 500 MG 11/24/2019 12:00:00 AM EDT suspended Naproxen 500 MG eCW1 ([facility]) tizanidine 4 MG Oral Tablet Tizanidine HCl 4 MG Tizanidine H Cl 4 MG 11/24/2019 12:00:00 AM EDT 1.0 {tablet_as_needed} active Tizanidine HCl 4 MG eCW1 ([facility]) tizanidine 4 MG Oral Tablet Tizanidine HCl 4 MG Tizanidine H Cl 4 MG 11/24/2019 12:00:00 AM EDT active 1 tablet as needed eCW1 ([facility]) Naproxen 500 MG Oral Tablet Naproxen 500 MG 11/24/2019 12:00:00 AM EDT active Naproxen 500 MG eCW1 ([facility]) tizanidine 4 MG Oral Tablet Tizanidine HCl 4 MG Tizanidine H Cl 4 MG 11/24/2019 12:00:00 AM EDT 1.0 {tablet_as_needed} active Tizanidine HCl 4 MG eCW1 ([facility]) Naproxen 500 MG Oral Tablet Naproxen 500 MG 11/24/2019 12:00:00 AM EDT active Naproxen 500 MG eCW1 ([facility]) tizanidine 4 MG Oral Tablet Tizanidine HCl 4 MG Tizanidine H Cl 4 MG 11/24/2019 12:00:00 AM EDT 1.0 {tablet_as_needed} active Tizanidine HCl 4 MG eCW1 ([facility]) Naproxen 500 MG Oral Tablet Naproxen 500 MG 11/24/2019 12:00:00 AM EDT suspended Naproxen 500 MG eCW1 ([facility]) Naproxen 500 MG Oral Tablet Naproxen 500 MG 11/24/2019 12:00:00 AM EDT active 1 tablet with food or milk a s needed eCW1 ([facility]) tizanidine 4 MG Oral Tablet Tizanidine HCl 4 MG Tizanidine H Cl 4 MG 11/24/2019 12:00:00 AM EDT 1.0 {tablet_as_needed} active Tizanidine HCl 4 MG eCW1 ([facility]) Naproxen 500 MG Oral Tablet Naproxen 500 MG 11/24/2019 12:00:00 AM EDT active Naproxen 500 MG eCW1 ([facility]) Naproxen 500 MG Oral Tablet Naproxen 500 MG 11/24/2019 12:00:00 AM EDT active Naproxen 500 MG eCW1 ([facility]) tizanidine 4 MG Oral Tablet Tizanidine HCl 4 MG Tizanidine H Cl 4 MG 11/24/2019 12:00:00 AM EDT 1.0 {tablet_as_needed} active Tizanidine HCl 4 MG eCW1 ([facility]) tizanidine 4 MG Oral Tablet Tizanidine HCl 4 MG Tizanidine H Cl 4 MG 11/24/2019 12:00:00 AM EDT 1.0 {tablet_as_needed} active Tizanidine HCl 4 MG eCW1 ([facility]) tizanidine 4 MG Oral Tablet Tizanidine HCl 4 MG Tizanidine H Cl 4 MG 11/24/2019 12:00:00 AM EDT 1.0 {tablet_as_needed} active Tizanidine HCl 4 MG eCW1 ([facility]) tizanidine 4 MG Oral Tablet Tizanidine HCl 4 MG Tizanidine H Cl 4 MG 11/24/2019 12:00:00 AM EDT 1.0 {tablet_as_needed} suspended Tizanidine HCl 4 MG eCW1 ([facility]) tizanidine 4 MG Oral Tablet Tizanidine HCl 4 MG Tizanidine H Cl 4 MG 11/24/2019 12:00:00 AM EDT 1.0 {tablet_as_needed} active Tizanidine HCl 4 MG eCW1 ([facility]) tizanidine 4 MG Oral Tablet Tizanidine HCl 4 MG Tizanidine H Cl 4 MG 11/24/2019 12:00:00 AM EDT 1.0 {tablet_as_needed} active Tizanidine HCl 4 MG eCW1 ([facility]) Naproxen 500 MG Oral Tablet Naproxen 500 MG 11/24/2019 12:00:00 AM EDT active Naproxen 500 MG eCW1 ([facility]) tizanidine 4 MG Oral Tablet Tizanidine HCl 4 MG Tizanidine H Cl 4 MG 11/24/2019 12:00:00 AM EDT 1.0 {tablet_as_needed} suspended Tizanidine HCl 4 MG eCW1 ([facility]) Naproxen 500 MG Oral Tablet Naproxen 500 MG 11/24/2019 12:00:00 AM EDT active Naproxen 500 MG eCW1 ([facility]) Naproxen 500 MG Oral Tablet Naproxen 500 MG 11/24/2019 12:00:00 AM EDT active Naproxen 500 MG eCW1 ([facility]) FLASH GLUCOSE SENSOR 11/23/2019 12:00:00 AM EDT kit 2 USE DIRECTED, CHANGE EVERY 14 DAYS USE DIRECTED, CHANGE EVERY 14 DAYS SOLD: 11/23/2019 [facility] [employer] Shabbir 14 Day Sensor [id number] 11/23/2019 12:00:00 AM EDT aborted Type 2 diabetes mellitus with hyperglyce starla, with long-term current use of insulin Use as directed. Change every 14 days. Dx: E11.65 [facility] Type 2 diabetes mellitus with hyperglyce starla, [...] TIMES A DAY NEEDED FOR MUSCLE SPASMS [facility] 10 mg 11/18/2019 12:00:00 AM EDT tablet 21 TAKE ONE TABLET BY MOUTH THREE TIMES A DAY NEEDED FOR MUSCLE SPASMS TAKE ONE TABLET BY MOUTH THREE TIMES A DAY NEEDED FOR MUSCLE SPASMS SOLD: 11/18/2019 [facility] 29 gauge x 1/2" 11/02/2019 12:00:00 AM EDT needle 150 USE DIRECTED UP TO 5 TIMES A DAY USE DIRECTED UP TO 5 TIMES A DAY SOLD: 11/02/2019 [facility] Insulin Pen Needle 29G X 12.7MM (BD ULTRA-FINE PEN NEEDLES) [id number] 10/28/2019 12:00:00 AM EDT active Type 2 diabetes mellitus with hyperglycemia, with long-term current use of insulin Use as directed. DIRECTED UP TO 5 TIMES A DAY [facility] Type 2 diabetes mellitus with hyperglyce starla, [...] current use of insulin INJECT 1.5MG WEEKLY [facility] Type 2 diabetes mellitus with hyperglyce starla, [...] (PROTONIX) 10/01/2019 12:00:00 AM EDT acti ve [facility] Losartan Potassium 50 MG Oral Tablet Los gavin Potassium 50 MG Oral Tablet (COZAAR) Losartan Potassium 50 MG Oral Tablet (COZAAR) 10/01/19 12:00:00 AM EDT aborted [facility] Terbinafine hydrochloride 10 MG/ML Topic al Cream SM Athletes Foot 1 % External Cream SM Athletes Foot 1 % External Cream 09/28/2019 12:00:00 AM EDT active [facility] Insulin Pen Needle 29G X 12.7MM (BD ULTRA-FINE PEN NEEDLES) [id number] 09/06/2019 12:00:00 AM EST aborted Type 2 diabetes mellitus with hyperglycemia, with long-term current use of insulin Use as directed. DIRECTED UP TO 5 TIMES A DAY [facility] Type 2 diabetes mellitus with hyperglyce starla, with long-term current use of insulin Ondansetron 4 MG Disintegrating Oral Tab let Ondansetron 4 MG Oral Tablet Disintegrating (ZOFRAN-ODT) Ondansetron 4 MG Oral Tablet Disintegrat ing (ZOFRAN-ODT) 09/04/2019 12:00:00 AM EST active [facility] 4 mg 09/04/2019 12:00:00 AM EST tablet,disintegrating [...] suspended Terbinafine HCl 1 % eCW1 ([facility]) Terbinafine HCl 1 % Terbinafine HCl 1 % 08/27/2019 12:00:00 AM EST active Terbinafine HCl 1 % eCW1 ([facility]) Terbinafine HCl 1 % Terbinafine HCl 1 % 08/27/2019 12:00:00 AM EST active apply thick layer to groin eCW1 ([facility]) Terbinafine HCl 1 % Terbinafine HCl 1 % 08/27/2019 12:00:00 AM EST active Terbinafine HCl 1 % eCW1 ([facility]) Terbinafine HCl 1 % Terbinafine HCl 1 % 08/27/2019 12:00:00 AM EST active Terbinafine HCl 1 % eCW1 ([facility]) Terbinafine HCl 1 % Terbinafine HCl 1 % 08/27/2019 12:00:00 AM EST active Terbinafine HCl 1 % eCW1 ([facility]) Terbinafine hydrochloride 10 MG/ML Topical Cream Terbi nafine HCl 1 % Terbinafine HCl 1 % 08/27/2019 12:00:00 AM EST active apply thick layer to groin eCW1 ([facility]) 1 % 08/27/2019 12:00:00 AM EST cream 60 APPLY THICK LAYER TO GROIN THREE TIMES A DAY APPLY THICK LAYER TO GROIN THREE TIMES A DAY SOLD: 09/02/2019 [facility] Terbinafine HCl 1 % Terbinafine HCl 1 % 08/27/2019 12:00:00 AM EST active Terbinafine HCl 1 % eCW1 ([facility]) Terbinafine HCl 1 % Terbinafine HCl 1 % 08/27/2019 12:00:00 AM EST active Terbinafine HCl 1 % eCW1 ([facility]) Terbinafine HCl 1 % Terbinafine HCl 1 % 08/27/2019 12:00:00 AM EST active Terbinafine HCl 1 % eCW1 ([facility]) Terbinafine HCl 1 % Terbinafine HCl 1 % 08/27/2019 12:00:00 AM EST active apply thick layer to groin eCW1 ([facility]) Terbinafine HCl 1 % Terbinafine HCl 1 % 08/27/2019 12:00:00 AM EST active Terbinafine HCl 1 % eCW1 ([facility]) Terbinafine HCl 1 % Terbinafine HCl 1 % 08/27/2019 12:00:00 AM EST active Terbinafine HCl 1 % eCW1 ([facility]) Terbinafine HCl 1 % Terbinafine HCl 1 % 08/27/2019 12:00:00 AM EST active Terbinafine HCl 1 % eCW1 ([facility]) Terbinafine HCl 1 % Terbinafine HCl 1 % 08/27/2019 12:00:00 AM EST active Terbinafine HCl 1 % eCW1 ([facility]) Terbinafine HCl 1 % Terbinafine HCl 1 % 08/27/2019 12:00:00 AM EST active Terbinafine HCl 1 % eCW1 ([facility]) Terbinafine HCl 1 % Terbinafine HCl 1 % 08/27/2019 12:00:00 AM EST suspended Terbinafine HCl 1 % eCW1 ([facility]) 25 mcg (1,000 unit) 08/03/2019 12:00:00 AM [...] insulin Inject 1.5 mg once weekly. DX:E11.65 [facility] Type 2 diabetes mellitus with hyperglyce starla, [...] of priming and titiration. Dx code: E11.65 [facility] Type 2 diabetes mellitus with hyperglyce starla, [...] units with titration and priming. Dx: E11.65. [facility] Type 2 diabetes mellitus with hyperglyce starla, with long-term current use of insulin Cholecalciferol 1000 UNT Oral Tablet Vit olmedo D3 25 MCG (1000 UT) Oral Tablet (CHOLECALCIFEROL) Vitamin D3 25 MCG (1000 UT) Oral Tablet (CHOLECALCIFER OL) 07/28/2019 12:00:00 AM EST 3000 U Oral active Take 3 tablets by mouth daily [facility] Levothyroxine Sodium 0.125 MG Oral Table t Levothyroxine Sodium 125 MCG Oral Tablet (SYNTHROID, LEVOTHROID) Levothyroxine Sodium 125 MCG Oral Tablet (SYNTHROID, LEVOTHROID) 07/28/2019 12:00:00 AM EST 125 ug Oral active Other specified hypothyroidism Take 1 tablet by mouth daily [facility] Other specified hypothyroidism FreeStyle Shabbir 14 Day Sensor [id number] 07/28/2019 12:00:00 AM EST active Type 2 diabetes mellitus with hyperglyce starla, with long-term current use of insulin Use as directed. Change every 14 days. Dx: E11.65 [facility] Type 2 diabetes mellitus with hyperglyce starla, [...] 07/26/2019 12:00:00 AM EST ORAL active MEDENT ([facility]) 20 mg 07/19/2019 12:00:00 AM [...] 07/14/2019 12:00:00 AM EST active MEDENT ( [facility], ) 17.5-3.13-1.6 gram 07/14/2019 12:00:00 AM EST recon soln [address] REDDY'S INSTRUCTIONS DIRECTED SEE DR REDDY'S INSTRUCTIONS SOLD: 07/14/2019 [facility] Suprep Bowel Prep Kit Suprep Bowel Prep Kit 07/14/2019 12:00:00 AM EST active MEDENT ([facility] ) Magnesium Hydroxide 80 MG/ML Oral Suspension Milk Of Magnesi a 07/14/2019 12:00:00 AM EST ORAL active M EDENT ([facility], ) 2.5 % 07/14/2019 12:00:00 AM EST cream with perineal bart licator 60 APPLY 0.5CC TO PERIANAL AREA THREE TIMES A DAY FOR 14 DAYS APPLY 0.5CC TO PERIANAL AREA THREE TIMES A DAY FOR 14 DAYS SOLD: 07/14/2019 [facility] pantoprazole 40 MG Delayed Release Oral Tablet Pantoprazole Sodium 07/08/2019 12:00:00 AM EST ORAL active M EDENT ([facility]) Levothyroxine Sodium 0.125 MG Oral Tablet Levothyroxine Sodi um 07/08/2019 12:00:00 AM EST ORAL active M EDENT ([facility]) 29 gauge x 1/2" 07/06/2019 12:00:00 AM [...] 29G X 12.7MM (BD ULTRA-FINE PEN NEEDLES) [id number] 07/02/2019 12:00:00 AM EST active Type 2 diabetes mellitus with hyperglycemia, with long-term current use of insulin Use as directed. DIRECTED UP TO 5 TIMES A DAY [facility] Type 2 diabetes mellitus with hyperglyce starla, [...] 06/11/2019 12:00:00 AM EST ORAL completed MEDENT ([facility]) 3 ML insulin detemir 100 [...] of priming and titiration. Dx code: E11.65 [facility] Type 2 diabetes mellitus with hyperglyce starla, with long-term current use of insulin 0.5 ML dulaglutide 3 MG/ML Auto-Injector Dulaglutide 1.5 MG/0.5ML Subcutaneous Solution Pen-injector (TRULICITY) Dulaglutide 1.5 MG/0.5ML Subcutaneous So lution Pen-injector (TRULICITY) 05/28/2019 12:00:00 AM EST aborted Type 2 diabetes mellitus with hyperglycemia, with long-term current use of insulin Inject 1.5 mg once weekly. DX:E11.65 [facility] Type 2 diabetes mellitus with hyperglyce starla, [...] units with titration and priming. Dx: E11.65. [facility] Type 2 diabetes mellitus with hyperglyce starla, [...] TABLET BY MOUTH EVERY DAY SOLD: 08/03/2019 [facility] 20 mg 04/08/2019 12:00:00 AM EDT [...] Gluc Sensor (FREESTYLE SHABBIR 14 DAY SENSOR) [facility] [id number] 03/10/2019 12:00:00 AM EDT abo rted Type 2 diabetes mellitus with hyperglycemia, with long-term current use of insulin U se as directed. Change every 14 days. [facility] Type 2 diabetes mellitus with hyperglyce starla, [...] THREE TABLE TS BY MOUTH EVERY DAY [facility] 10 mg 11/11/2018 12:00:00 AM EDT tablet [...] TAKE ONE TABLET BY MOUTH EVERY DAY [facility] Other specified hypothyroidism 29 gauge x 1/2" 09/18/2018 12:00:00 AM EDT needle 50 DIRECTED UP TO 5 TIMES A DAY DIRECTED UP TO 5 TIMES A DAY SOLD: 06/28/2019 [facility] ONETOUCH DELICA LANCETS 33G [facility] [phone] 06/17/2017 12:00:[address] aborted Type 2 diabetes idris itus with hyperglycemia, with long-term current use of insulin Use to test blood sugar up to 6 times da adeola. Dx: e11.65 [facility] Type 2 diabetes mellitus with hyperglyce starla, with long-term current use of insulin Insurance Providers Payer name Policy type / Coverage type Policy ID Covered alliance party ID Covered alliance party's relationship to patiño Policy Patiño Plan Information [facility] [id number] SP [id number] [facility] [place] [id number] S [id number] [place] [id number] SP [id number] [facility] [id number] SP [id number] [facility] I [id number] Self [id number] MEDICAID [id number] SP [id number] MEDICAID M [id number] S [id number] MEDICAID [id number] SP [id number] [facility] EXCHANGE U [id number] Self [id number] ANSI-Not a Secondary Insurance [id number] ANSI-Not a Secondary Insurance [id number] [employer] (O) [id number] Self [id number] [employer] (O) [id number] Self [id number] ANSI-Not a Secondary Insurance [id number] ANSI-Not a Secondary Insurance [id number] ANSI-Not a Secondary Insurance [id number] [place] [employer] (O) [id number] Self [id number] ANSI-Not a Secondary Insurance [id number] ANSI-Not a Secondary Insurance [id number] ANSI-Not a Secondary Insurance [id number] [place] [employer] (O) [id number] Self [id number] [employer] (O) [id number] Self [id number] ANSI-Not a Secondary Insurance [id number] ANSI-Not a Secondary Insurance [id number] ANSI-Not a Secondary Insurance [id number] ANSI-Not a Secondary Insurance [id number] EXCELL[employer] H [id number] [facility] [id number] [place] EXCHANGE [id number] Liset 7 [id number] [place] MEDICAID [id number] Liset 7 [id number] [place] MEDICAID PI PI [employer] BCBS [id number] ORe YND [id number] BCBS OF [place] 306/[id number] WI2 [id number] Ghi FHP-(DO Not Use) Medigap Part B [id number] Self [id number] Bshmo ZFC,Yot,Yoy,ZFH,ZFP Medigap Part B [id number] Self [id number] BS [place] Medigap Part B [id number] Family Depend ent [id number] BS [place] Commercial [id number] Family Dependent [id number] SELF PAY ONLY [id number] SP [id number] [employer] BCBS Health Maintenance Organization (HMO) [id number] Family Dependent [id number] BCBS [place] PPO 302/307 [id number] [place]2 [id number] [employer] BCBS PI PI Ghi FHP-(DO Not Use) Medigap Part B [id number] Self [id number] Bshmo ZFC,Yot,Yoy,ZFH,ZFP Medigap Part B [id number] Self [id number] BS [place] Medigap Part B [id number] Family Depend ent [id number] BS [place] Commercial [id number] Family Dependent [id number] Ghi FHP-(DO Not Use) Medigap Part B [id number] Self [id number] Bshmo ZFC,Yot,Yoy,ZFH,ZFP Medigap Part B [id number] Self [id number] BS [place] Medigap Part B [id number] Family Depend ent [id number] BS [place] Commercial [id number] Family Dependent [id number] Ghi FHP-(DO Not Use) Medigap Part B [id number] Self [id number] Bshmo ZFC,Yot,Yoy,ZFH,ZFP Medigap Part B [id number] Self [id number] BS [place] Medigap Part B [id number] Family Depend ent [id number] BS [place] Commercial [id number] Family Dependent [id number] BCBS [place] PPO 302/307 [id number] [place]2 [id number] [employer] BCBS B [id number] P YND [id number] BCBS [place] PPO 302/307 [id number] WI2 [id number] [employer] Health Maintenance Organization (HMO) Family Dependent Ghi FHP-(DO Not Use) Medigap Part B Self Bshmo ZFC,Yot,Yoy,ZFH,ZFP Medigap Part B Self BS [place] Commercial Family Dependent BS [place] Commercial Family Dependent BCBS [place] PPO 302/307 [id number] WI2 [id number] EXCELLUS C [id number] Self [id number] BCBS ARON O [id number] U VY [id number] [employer] BCBS P [id number] P KARINE [id number] SELF PAY 2 UNAVAILABLE 1 UNAVAILA BLE BC EXC PLANS 1 [id number] Problems, Conditions, and Diagnoses Code Display Name Description Problem Type Effective Dates Data Source(s) Thoracic aortic ectasia Thoracic aortic ectasia Proble m 12/03/2019 12:00:00 AM EDT MEDENT ([facility]) [id number] Obstructive sleep apnea syndrome Obstructive sle ep apnea syndrome Problem 11/02/2019 12:00:00 AM EDT MEDENT ([facility] NEETA sanchez) G47.33 [id number] LUCILA (obstructive sleep apnea) Problem 07/19/2019 12:00:00 AM EST eCW1 ([facility]) [id number] Preoperative cardiovascular examination Preoperative cardiovascular examination Problem 07/09/2019 12:00:00 AM EST [facility] ([facility] E55.9 Vitamin D deficiency, unspecified Vitamin D defi ciency, unspecified Diagnosis 07/28/2019 12:46:10 PM [facility] Surgeries/Procedures Procedure Description Date Indications Data Source(s) ECG ROUTINE ECG W/LEAST 12 LDS W/I&R 05/12/2020 12:00: 00 AM EST MEDENT ([facility]) POCT HEMOGLOBIN A1C, DOCKED POCT HEMOGLOBIN A1C, DOCKED Routine 04/20/2020 12:00 PM EDT 04/20/2020 12:00:00 PM EDT [facility] POCT GLUCOSE, DOCKED POCT GLUCOSE, DOCKED Routine 04/20/2020 11:58 AM EDT 04/20/2020 11:58:00 AM [facility] MYOCARDIAL SPECT MULTIPLE STUDIES 01/24/2020 12:00:00 AM EDT MEDENT ([facility]) CV STRS TST XERS&/OR RX CONT ECG PHYS SI&R 01/24/2020 12:00:00 AM EDT MEDENT ([facility]) ECG ROUTINE ECG W/LEAST 12 LDS W/I&R 12/03/2019 12:00: 00 AM EDT MEDENT ([facility]) PHYSICIAN TELEPHONE EVALUATION 5-10 MIN 10/12/2019 12: 00:00 AM EDT eCW1 ([facility]) DESTROY BENIGN/PREMLG LESION 08/27/2019 12:00:00 AM ES T eCW1 ([facility]) POCT HEMOGLOBIN A1C, DOCKED POCT HEMOGLOBIN A1C, DOCKED Routine 07/28/2019 10:06 AM EST 07/28/2019 03:06:00 PM EST [facility] POCT GLUCOSE, DOCKED POCT GLUCOSE, DOCKED Routine 07/28/2019 9:58 AM EST 07/28/2019 02:58:00 PM [facility] ECG ROUTINE ECG W/LEAST 12 LDS W/I&R 07/09/2019 12:00: 00 AM EST [facility] ([facility]) ECHO TTHRC R-T 2D W/WOM-MODE COMPL SPEC&COLR DOP 06/08 12:00:00 AM EST [facility] ([facility]) Results ID Date Data Source [id number] 07/13/2020 01:35:00 PM EST [facility] Name Value Range Interpretation Code Description Data Renetta rce(s) Supporting Document(s) Respiratory pathogens identified [Type] in Nasopharynx by Probe and target amplification method SARS-CoV-2 (COVID 19) [facility] This lab was ordered by [facility] a nd reported by [facility]. ID Date Data Source [id number] 07/04/2020 12:00:00 AM EST [facility] Name Value Range Interpretation Code Description Data Renetta rce(s) Supporting Document(s) Carestart Rapid COVID Antigen Test [facility] This lab was reported by [facility] Isauro hernandez. ID Date Data Source [id number] 06/04/2020 03:54:00 PM EST [facility] Name Value Range Interpretation Code Description Data Renetta rce(s) Supporting Document(s) SARS-CoV-2 (COVID 19) [facility] This lab was ordered by [facility] a nd reported by [facility]. ID Date Data Source CBC with Differential 05/24/2020 12:00:00 AM EST eCW1 ([facility]) Name Value Range Interpretation Code Description Data Renetta rce(s) Supporting Document(s) 5.3 4.0-10.0 WHITE BLOOD COUNT eCW1 ([facility]) 4.70 4.30-6.10 RED BLOOD COUNT eCW1 ([facility]) 14.2 13.5-17.5 HEMOGLOBIN eCW1 ([facility]) 33.8 32.0-36.5 MEAN CORPUSCULAR HGB CONC eCW1 ([facility]) 42.0 42.0-52.0 HEMATOCRIT eCW1 ([facility]) 30.2 27.0-33.0 MEAN CORPUSCULAR HEMOGLOB IN eCW1 ([facility]) 89.4 80.0-96.0 MEAN CORPUSCULAR VOLUME e CW1 ([facility]) 8.8 0.0-5.0 MONO % eCW1 ([facility]) 12.5 11.5-14.5 RED CELL DISTRIBUTION WID TH eCW1 ([facility]) 51.8 36.0-66.0 NEUTROPHILS % eCW1 ([facility]) 34.5 24.0-44.0 LYMPH % eCW1 ([facility]) 184 150-450 PLATELET COUNT, AUTOMATED eCW1 ([facility]) 2.8 1.5-8.5 NEUTROPHILS # eCW1 ([facility]) 0.9 0.0-1.0 BASO % eCW1 ([facility]) 0.5 0.0-0.8 MONO # eCW1 ([facility]) 3.6 0.0-3.0 EOS % eCW1 ([facility]) 1.8 1.5-5.0 LYMPH # eCW1 ([facility]) 0.1 0.0-0.2 BASO # eCW1 ([facility]) 0.2 0.0-0.5 EOS # eCW1 ([facility]) ID Date Data Source [id number] 05/24/2020 12:00:00 AM EST eCW1 ([facility]) Name Value Range Interpretation Code Description Data Renetta rce(s) Supporting Document(s) Hemoglobin A1c/Hemoglobin.total in Blood 6.7 HEMOGLOBIN A1c eCW1 ([facility]) ID Date Data Source LIPID PANEL (CARDIAC RISK) 05/24/2020 12:00:00 AM EST eCW1 ( [facility]) Name Value Range Interpretation Code Description Data Renetta rce(s) Supporting Document(s) Triglyceride [Mass/volume] in Serum or Plasma by calculation 84 <150 TRIGLYCERIDES LEVEL eCW1 ([facility]) Cholesterol in HDL [Moles/volume] in Serum or Plasma 35 >40 HDL CHOLESTEROL eCW1 ([facility]) Cholesterol [Moles/volume] in Serum or Plasma 119 <200 CHOLESTEROL LEVEL eCW1 ([facility]) 84 NON-HDL-C eCW1 ([facility]) Cholesterol in LDL [Mass/volume] in Serum or Plasma by calculation 67 <100 LDL CHOLESTEROL eCW1 ([facility]) 3.400 <5 CHOLESTEROL RISK RATIO eCW1 (Count includes the [facility]) ID Date Data Source FREE T4 & TSH PANEL 05/24/2020 12:00:00 AM EST eCW1 ([facility]) Name Value Range Interpretation Code Description Data Renetta rce(s) Supporting Document(s) 2.800 0.358-3.740 eCW1 ([facility]) 1.02 0.76-1.46 eCW1 ([facility]) ID Date Data Source Comprehensive Metabolic Profile (CMP) 05/24/2020 12:00:00 AM EST eCW1 ([facility]) Name Value Range Interpretation Code Description Data Renetta rce(s) Supporting Document(s) 109 70-100 GLUCOSE, FASTING eCW1 ([facility]) 14 7-18 BLOOD UREA NITROGEN eCW1 ([facility]) > 60.0 >56 GLOMERULAR FILTRATION RATE eCW 1 ([facility]) 110 98-107 CHLORIDE LEVEL eCW1 ([facility]) 1.00 0.70-1.30 CREATININE FOR GFR eCW1 ([facility]) 4.1 3.5-5.1 POTASSIUM SERUM eCW1 ([facility]) 143 136-145 SODIUM LEVEL eCW1 ([facility]) 8.6 8.5-10.1 CALCIUM LEVEL eCW1 ([facility]) 10 7-37 AST/SGOT eCW1 ([facility]) 28 21-32 CARBON DIOXIDE LEVEL eCW1 ([facility]) 27 12-78 ALT/SGPT eCW1 ([facility]) 3.8 3.2-5.2 ALBUMIN eCW1 ([facility]) 1.4 ALBUMIN/GLOBULIN RATIO eCW1 (Count includes the [facility]) 0.7 0.2-1.0 BILIRUBIN,TOTAL eCW1 ([facility]) 6.6 6.4-8.2 TOTAL PROTEIN eCW1 ([facility]) 93 45-117 ALKALINE PHOSPHATASE eCW1 ([facility]) ID Date Data Source [id number] 04/20/2020 04:48:22 PM EDT [facility] Name Value Range Interpretation Code Description Data Renetta rce(s) Supporting Document(s) Progress Note [facility] WSPXLv1zYbGSJdPv56/OAEecMLLiw3PgSUjwMNl1XJvbPZKbI9PmIRM0oB3sRPN7MZnSWoVgQuNrGOD5 lbm [file] ICAgICAgICAgICAgICAgICAgICAgICAgICAgICAgIC AgICAgICAgICAgICAgICAgICAgICAgICAgICAgICAgDQogICAgICAgICAgICAgICAgICAgICAgICAgIC AgICAgICAgICAgICAgICAgICAgICAgICAgICAgICAgICAgICAgICAgICAgICAgICAgICAgICAgICAgIC AgICAgICAgICAgICAgDQogICAgICAgICAgICAgICAg ICAgICAgICAgICAgICAgICAgICAgICAgICAgICAgICAgICAgICAgICAgICAgICAgICAgICAgICAgICAg ICAgICAgICAgICAgICAgICAgICAgICAgDQogICAgICAgICAgICAgICAgICAgICAgICAgICAgICAgICAg ICAgICAgICAgICAgICAgICAgICAgICAgICAgICAgIC AgICAgICAgICAgICAgICAgICAgICAgICAgICAgICAgICAgDQogICAgICAgICAgICAgICAgICAgICAgIC AgICAgICAgICAgICAgICAgICAgICAgICAgICAgICAgICAgICAgICAgICAgICAgICAgICAgICAgICAgIC AgICAgICAgICAgICAgICAgDQogICAgICAgICAgICAg ICAgICAgICAgICAgICAgICAgICAgICAgICAgICAgICAgICAgICAgICAgICAgICAgICAgICAgICAgICAg ICAgICAgICAgICAgICAgICAgICAgICAgICAgDQogICAgICAgICAgICAgICAgICAgICAgICAgICAgICAg ICAgICAgICAgICAgICAgICAgICAgICAgICAgICAgIC AgICAgICAgICAgICAgICAgICAgICAgICAgICAgICAgICAgICAgDQogICAgICAgICAgICAgICAgICAgIC AgICAgICAgICAgICAgICAgICAgICAgICAgICAgICAgICAgICAgICAgICAgICAgICAgICAgICAgICAgIC AgICAgICAgICAgICAgICAgICAgDQogICAgICAgICAg ICAgICAgICAgICAgICAgICAgICAgICAgICAgICAgICAgICAgICAgICAgICAgICAgICAgICAgICAgICAg ICAgICAgICAgICAgICAgICAgICAgICAgICAgICAgDQogICAgICAgICAgICAgICAgICAgICAgICAgICAg ICAgICAgICAgICAgICAgICAgICAgICAgICAgICAgIC NuNZNzXKHhOPJjKDStHRHrCNFyLKFdENJbNJTyCTEgBQZrHKHjXGZdJIc5Z8feWNJuEFAbTN4xCXp8Ib 8+AKgHDfYdCJJ1bxAxvF4YLF4jr8YsQFfqQEPrl3MdVEv5WQ3UQVBaOTtrCZ4GEMdmmx6OXWDmKMTjeH ZAd1olDvLxOMV1LPSjSslcUM6NOAFeS0ycrsDeQKPx TIIXMBmhSPRUJNohEMQVHNYjKZNsPnLrNsMdCSFbBJKzSFZCBXJ6CAAtFaSaAWBkBRKdFlVcJPCKAR4B NoKcP0AukL19KLsXKq9+ZTjbifNeZebFHmB3ATMxs9UwDMs0FD3XXTNxOsqal9CrRmwuYZHHJSaePW1C OQU4AJD7DFQaGe1UPJQeN774feTyOL5BQv8EKrKbYK 5nbl9PAqerGDKzRglLGfi2OAhgOA6LhRGaQOiAlx8lsfBpgqKMm5XcdrUlpHDGXW3iULijVPOJTGE3xt fitRixNMHeLKPqRPMnNBBfYgRbJEWmWIyhZKFHQOxGKgGqU4Alp3EpLxP7FFEwTtKjQKiqSLBmJdK9XB 67vEuxHP6EQFWrBIFtXL86FIY3PASoJj4SEk7VJgOr CT9cac1HDAVnFOQdPbbUTzd8HItnMN5XbSIcJ0ZjeFDrv4nGHwCtI4CSVLR1XKZlTe5DVJIjMnFyEAJa DFfxCV8vVHXjTVFPjJakvzL0FP2FCT2hwuFiZW1NJwRsIr6gPx3YXiEoD4ZeB2JpVBXsGYVNCAjiPY6E OYrdZR6vOG9Wx4AEfXBygH1hkj9AKFQoTINjDeagvl 9ERkveL8R0gCdlZVYlOdtuKTGQXXwmWO3CTYVyIDC1NSDfJyKkULKTDwEyD03wKL9VV6Cpy13eVfZ2SP AzFmAeJEhjBF80tEgvzcAycEXryUvjZQ0RQi6+DQplbmRvYmoNCnhyZWYNCjAgNDENCjAwMDAwMDAwMD ImXjX5EqUtPj3LRQGwKANuEZQiXzCpORRsJFWeHHfb IXMkGEY8LZwyBNEkPRZyOS6KKlJlSBRcGMj2WWaxIKMlDQQwra3GEFSnGDUnLTW8OoUpTTOuMABcMFap VDDmJHC9IXl4MQWhDAYsPC3PKgCfJPIxYZO7WAklSBVvVTBesl7ILFHbPRAsCRX1JpUkMITeLFLzWYwz LTUvASG7EOkuKXQeJGBnWG1VEvRjFGMlGSGrVCExVH BuYXDgvt2JOCNdYJOaWSI1FERaSGYlGUUmSRgmRWDdJDL8CRU8GCPlVPXmTU2KQjXbGTEmETL5EmUcYK UuWLWujw5APUIsDOCcRLBmIjNoSAWeQOEzBXdzXLIvYPV8HeHhJLVsXWVaEL3QAqBuHCGpWvY5QzdfBK JoZZJasd2SYCYeMPInFBO9LOTlHOEnUIAvSPkiVBRw PHBhHWHbYEYkGBRyTP0MNbFqWIRrZaGkXCHcQFXpSXVggp3ATWGqBESaWfksBAHeDTFbACJtAZogYZTm TAP2PMK6MLYxWYSxHN8VOnCvLZJzFxa3YYNnOCUyJSSejq3HEQFtVCQgDJU6KIQdLPKcJECqBWcvRLVt MDWfVnJwWEQrLOBjZB2FBrByKDVbHeW7XQnjNBVvEX Satu2TDYQeSFFwYXFwXXUzNRGfGSMiFEgtPMDtOUIpYTnsZSScQRYjRB6VXgYoAXTbJiHoLPOeIUYrCP Rzyu0IRHIkDMGrOcP9FZWkMWVpAPMsBRyaDSIdMWLtPGHmHHEsQWRaQT3DPrGmXTHeHEYhIiYvMDQsLQ Msag5DTUVcELF2HZZ7IZQwRIIlYDAqPCgeQYGdTGT2 CUn6KMGaHFUtLX9CSePyMMVfOTJ6GGClPYMcUNAbmm7YYFPeOAA5IQO2JLHkAQHpFAUaSVuxZMViGHL2 BMugAAHvLREnEQ3QXiEsIWFmEZXgYSBeTOCtGJGhgb7UGCWgRMI6WhC9QfLwGGPmWXStOXmwUNBcJVR5 GTC5PLXjITSkCT3LIaOzUVZmVKluPpRhZUOxJMOmye 5OBNChSAP2DVE3RdZnWBJaOSJyKSp5ocSklZHoWHi8WR2MU4VhhqJpEDAXKc6Jj421GJJxKNRmIc8SG5 wvOj4gIQDxEJRINl5NDUy9AOHmUPgcGLFtSNL4ZxZ3FmI2SGPcMBh4DHK0QeJtHUZ+JJmfGQT8LZK8FK ZfIpEqSkfkLQljBvA8WHoyEPs0YhP1Fb5bCKJATe8+DRqzpWWvlXhpLZZNKzD5TRQ3AOvfBPVMTc2U ID Date Data Source [id number] 04/20/2020 12:13:55 PM EDT [facility] Name Value Range Interpretation Code Description Data Renetta rce(s) Supporting Document(s) Hemoglobin A1c/Hemoglobin.total in Blood 8.5 % 4.0-6.0 H [facility] Glucose mean value [Mass/volume] in Blood Estimated fr om glycated hemoglobin 197 mg/dL <126 H [facility] ID Date Data Source [id number] 04/20/2020 12:09:45 PM EDT [facility] Name Value Range Interpretation Code Description Data Renetta rce(s) Supporting Document(s) Glucose [Mass/volume] in Capillary blood by Glucometer 303 mg/dL 70- 140 H [facility] ID Date Data Source [id number] 04/20/2020 11:24:00 AM EDT MEDENT ([facility] Name Value Range Interpretation Code Description Data Renetta rce(s) Supporting Document(s) Hemoglobin A1c/Hemoglobin.total in Blood 8.5 MEDENT ([facility]) ID Date Data Source GASTROINTESTINAL GI PANEL (GIPANEL) 11/24/2019 12:00:00 AM EDT eCW1 ([facility]) Name Value Range Interpretation Code Description Data Renetta rce(s) Supporting Document(s) This Gastrointestinal PCR Panel detects the following bacteria, GASTROINTESTINAL (GI) PANEL eCW1 ([facility]) ID Date Data Source [id number] 11/18/2019 03:32:00 PM EDT MEDENT ([facility] Name Value Range Interpretation Code Description Data Renetta rce(s) Supporting Document(s) Albumin [Mass/volume] in Serum or Plasma 3.8 MEDENT ([facility]) Alanine aminotransferase [Enzymatic activity/volume] in Serum or Pl asma 32 MEDENT ([facility]) Carbon dioxide, total [Moles/volume] in Serum or Plasma 25 [facility] ([facility]) Calcium [Mass/volume] in Serum or Plasma 8.4 [facility] ([facility]) Chloride [Moles/volume] in Serum or Plasma 110 [facility] ([facility]) Potassium [Moles/volume] in Serum or Plasma 3.9 [facility] ([facility]) Alkaline phosphatase [Enzymatic activity/volume] in Serum or Plasma 1 09 [facility] ([facility]) Protein [Mass/volume] in Serum or Plasma 6.6 [facility] ([facility]) Aspartate aminotransferase [Enzymatic activity/volume] in Serum or Plasma 11 [facility] ([facility]) Glucose 120 70-100 [facility] Urea nitrogen [Mass/volume] in Serum or Plasma 18 [facility] ([facility] Sodium 143 [facility] Creatinine For GFR 0.82 [facility] ([facility]) ID Date Data Source [id number] 11/18/2019 03:32:00 PM EDT [facility] ([facility] Name Value Range Interpretation Code Description Data Renetta rce(s) Supporting Document(s) White Blood Count 5.8 4.0-10.0 [facility] Red Blood Count 4.85 4.30-6.10 [facility] Hemoglobin 15.0 [facility] ([facility]) Platelets 179 150-450 [facility] Hematocrit 41.6 [facility] ([facility]) ID Date Data Source [id number] 10/28/2019 11:19:24 AM EDT [facility] Name Value Range Interpretation Code Description Data Renetta rce(s) Supporting Document(s) Progress Note [facility] COVQGz2tDwEBZmSh86/SEFzgSHUbo5YxBOqkCYz2FFclJZKhM4FbCHT4dW3qXDX0SPgHZsKrSuCsRHEp [facility] NsNedJXcDpOFArCzwRBbZzRJrhHdzvbKTmEX5NwYD7MGKrV05tLGHvHNLzL6WhKRR5VwU+Kv0GLKWsyE ChRF8LLsuX7X4sl3lJSj4f6C5MQpIsyS0dk8jgw6ZJaYJtm7fsKCrFlgy3ILLdD56y6dM8yx57Mh6Dja i9NKSl0UBauSdpPYChx329XmJCqqn8j1cTmztr5PP/ 9syPz4WsxX/+vTm0bMv41+ama6y5gJ1FMEcZqt+e+/hXwd781FWCXVUMvy6i5crcWMrkalRV6T66JzxN 0KurF5MKc23xe2jLM4/OLt4o1/Mdz4+cfj2Ovh+u80114blj5wPESOR+634uxxDy0s51DYXPEuOypqox 0murk/l91vOipsR8Qp/IVflvytdoGjpwaipbVmYi76 Lh40HvuzNNEy68hSEtsTDg6jc5Sye22Z1WC+qzNa9uc5Z2DbwDJA9Ipgi6f97XGvd6OJqfHXVNou7uvL /+GMekKCyL55ZXGNjfEQpL1SY6RBb43dV+yhn1uqguzzZpIx/avjbMSi5fbGx1QNHKYjXYHL0MmfQ70Q 5SStDlUrwDrQ/c2Dp4E+HbE01wPmn+uCbTR/3+NJlZ 3F6FgNjv99tjRX0cFt/rjwZu9sQQHPLcqku0kJWMziwSv02j7PvUlvUuE9DDpUeb2kLEEhqPHSCd+mxh sza31iC/SuK45sZrWq1xQZl3NPAmL9oA4RiaFHonJ92w/63ClFIIQgXssBu568mN1bsyhqSS55u6mQa7 xswSZ7ou3Yc3Do2yr+k06f/JSzU5lpSRSqkKD1wHIL qTzYuq7zR9KldAMiq6IGIzPeTM8RYXNrzcvoYfJiImLsJa2vvRFeMJRcKps32jmBT6DHo881iR2X2nS6 /Rg9xprD/sPc/yNCgZigsWkvgd8CAofZGxl/P69BOKy+tBJOKz9Rd19voMmC3q8wVtD/rc1bHoUCUDH2 GuMX4CPFxX/O7g/C4ikV6cBA1GO54HODWjXJ0A2W21 Ikrle0b3TavM45JhelXD3tFKxpOPuwpb6vXkYfTb8zPuOtUv9J5c1bOfIYZmNJujXtBwXPCt52GM3BQ6 /19meD34AJ99pdwFaY4VUiNp7O+G5i8mEEWGDVk8XIgKssxoKzmsrCLwMguxlACGptz5AlBJNHegK8hj J+eib6MmFoc0DoHwzWNlepbSRFZajediR+SihgEwvJ eFw/mfUMoPjYuwDW8CNfFUQQmqg3b5Xpq3/DDBUBzneZaju/qxQq1LIlKomEzvIFkYYh6/WCjyEBVHGD cV8cRDGo7Sg9/320WVJhGSqJb39bCkkrKr0nf+/VfHea//9h/KkdT5sfeqQpfUkk71FSApHpBJnZDR61 e68aW49C3F0Dv7rT20mzX8qMVT4le9U8Zy6udmBLI0 [file] group home+/Ja0WgTUkEeONn5lfvDJfu9su0y+LBlaFqkhpkuV62Lp4IsjHO6pmgZvxXgF+NcDQ0KYPklp1Yev [file] ICAgICAgICAgICAgICAgICAgICAgICAgICAgICAgIC AgICAgICAgICAgICAgICAgICAgICAgICAgICAgDQogICAgICAgICAgICAgICAgICAgICAgICAgICAgIC AgICAgICAgICAgICAgICAgICAgICAgICAgICAgICAgICAgICAgICAgICAgICAgICAgICAgICAgICAgIC AgICAgICAgICAgDQogICAgICAgICAgICAgICAgICAg ICAgICAgICAgICAgICAgICAgICAgICAgICAgICAgICAgICAgICAgICAgICAgICAgICAgICAgICAgICAg ICAgICAgICAgICAgICAgICAgICAgDQogICAgICAgICAgICAgICAgICAgICAgICAgICAgICAgICAgICAg ICAgICAgICAgICAgICAgICAgICAgICAgICAgICAgIC AgICAgICAgICAgICAgICAgICAgICAgICAgICAgICAgDQogICAgICAgICAgICAgICAgICAgICAgICAgIC AgICAgICAgICAgICAgICAgICAgICAgICAgICAgICAgICAgICAgICAgICAgICAgICAgICAgICAgICAgIC AgICAgICAgICAgICAgDQogICAgICAgICAgICAgICAg ICAgICAgICAgICAgICAgICAgICAgICAgICAgICAgICAgICAgICAgICAgICAgICAgICAgICAgICAgICAg ICAgICAgICAgICAgICAgICAgICAgICAgDQogICAgICAgICAgICAgICAgICAgICAgICAgICAgICAgICAg ICAgICAgICAgICAgICAgICAgICAgICAgICAgICAgIC AgICAgICAgICAgICAgICAgICAgICAgICAgICAgICAgICAgDQogICAgICAgICAgICAgICAgICAgICAgIC AgICAgICAgICAgICAgICAgICAgICAgICAgICAgICAgICAgICAgICAgICAgICAgICAgICAgICAgICAgIC AgICAgICAgICAgICAgICAgDQogICAgICAgICAgICAg ICAgICAgICAgICAgICAgICAgICAgICAgICAgICAgICAgICAgICAgICAgICAgICAgICAgICAgICAgICAg ICAgICAgICAgICAgICAgICAgICAgICAgICAgDQogICAgICAgICAgICAgICAgICAgICAgICAgICAgICAg ICAgICAgICAgICAgICAgICAgICAgICAgICAgICAgIC XfYYViOHXbQFSzXGHmULCsSJHxRXZxANIrQHNpWMSdNYSlUVKpPDr7I9qcNBNlZLKmWJ1vXCl7Rg4+DQ zTQtCdBPJ4ysPmlJ5GIZ2dh5OsRFlqTZAap7DdMRw7GL8YBMQxATvaEZ4KZAzxur8SSCWiMUStnZTXy7 klPiGzOPS7SXUyEotuJX0TAEEqG3uwikUnMSSqRMCU XCufKMHLZRvfZWUSCJNwQANvYpCtAlFdCLYgOXWaLYVBLRM6GAQcYsYgGIUvBKKbMF1CRBGoO275ilIb JH3MIf1VAoUaNP7ivy2GLbPfQPOmTwrDLpa7EThoIH2MvBOmoXFlAyZqRBMQOlViU9fja6OvGmveDTST ZAktHT6Hx2OgzBCyYYm+Ne4QVO6bx1XqDDtiDjIoZQ 3lyu3WEUbWVdKzM0MleAdwXAXcb3voRKOwXV1tnBGoACU2MITcxselmIvuARSrVJFxiPZsOGJSOXPerI G7AxVkZgXzEbMrOYJ4KqOrND2fJFuoBP9ZUKG6NJegAOOmUVKnI7fYMnYuZBKkGpMcdEjeIQ2XTrTpY0 BhcmVudCAzNiAwIFINCj4+IZfeskFaMjqSZuU7MMPp e7JtVXq4GP2JQQRyCUlfRD8GHHZgpM0jSVrpNF6FWcQtXASeZEWPWfXyA19qrLUoZLp3H4PwRhLkNDAv RmlsZXMgPDwvTmFtZXMgWyBdDQogID4+ID4+OAjyQT7EBXrzupUmMYGbLg3IUHRwXVXsHR8lRZNlEQCb M1N5xCdeDUBNHbAuI2pmsnwyML7dJOToH786bFdlwq NtPVR9XGCxWt2XOMUdPHJ9ZPTcyQNbSeZbPHVYWKglJW2GnAQvKSF5dS5pQSptNNZkKPDkB3zBZxWmvX ucXH23qNtfnnEgwCYoOUq+Xd0YLM2uv8KwPYt3ttZfFQopNVU8LKngHCQpQJEkPSFsUAY9KKZ0JEGAHu SyVIFpUBElPAdeBPGxEGLpmq5KCXJiAPS3WXfpMPAz LDWeJCPqJPzoKTWsPHPkFbGsXPLcZGVqYN8NHkVtTZHlDJRmIFkfXQNwTFIbis6GXTWsCMZvImjsEdLn SAIiOWOkKZfrMHXiKULkGPH7HPRjTQKpLD3CClQzDLFrBFT0MIhpCDCeKZQxkz9EXTKzRSHxXaS4EcFo ZEJzKHUeJBkeCJWiZNL3MVW9GIUoYOYuFM6XPuDfRA BfOVfjKoByHUAbUKHayw3SGTAhZYNmAckuZoUaMPXdFZDzOZnpJQOyHNCcJZZmUXTtDPOmEA1ESeKvWT ZiMUN8QKIoTEEgMTFpwf0JMDWuTFVmLwVtPTHfNBJwTWTuPOfhFTOiAPQ4WfvkHIMxSNUrTW3JOiIfBW JaAPb6ZCRrHELqUQHezb2SDVJeIEAxUnI7FOXpTNYq EGAjMQtnBGNxTKAvQwcfSNWuRNNnZX4KAkZnZEVhVxOtYiPlQKBoSPRxyn7WADAtOOAhBPOuJdZsEZMe DAWiBLuaAYJjNRD4ZXl7MOEdIGLbIS2KXxSaGPNkWsD4UJGiGDLcAFMmgl8KSUFgKMNdVEw2JyZuSEZi CSEsFZvpZNByDDQ4MFE2VWEgSBLdDA9ENlOjUBMnAl ugYoawWIFhBQOrzi7NBGUrPYMuXjHrDhYwXPRdQGXcWBemXVMtMMT4EtX2KYEtLDCpCY0BIdVrCKWrNd p4ENSeIQOvIFVlps7PWENzSWEjKRK9IXLqHYFxLFIhFCnsRYHqATV0XELaSNApOCKxTK2JUgXvZNIcFx a6DVKgNOBvEPErqa0FMSBmZZF4JFGtFMNjDXQoXJKr XKttCWLvPZIjBcN4STHrKSOlPG3VJrNuHBHnVSD3TSDpFQRcRNJfns2UGCWcURD5PAXaJlCiQRYfFHIb MPzkGULqSOXxBav0NMDnPZKbFO0CXiLwRBFdEYJ4GfbzVMDyHWVzke5WRQGjXHU9ZbIqFOJyKLWhDAGj SJw2efEqxMMfTFs0VR5NF7WedwUvYhdKEa3Vv400RG U5WLByMr1XC9vbOj5fOSIgPUIPWd0TAUj3IfBcIPQgZUVmHPTjT9S3J7X5HSJzOdEnMbNvL5JeBLO+ID wdCMFlVKYzVgBxVAP0UjglZHN8BACeJMLiUEYgEKVlHy0lSHWXHt8+WScprQEkfQmzZOIKAkEaMuR5YD qlIKTKEc7O ID Date Data Source [id number] 07/28/2019 12:48:26 PM [facility] Name Value Range Interpretation Code Description Data Renetta rce(s) Supporting Document(s) Progress Note [facility] ZZEZIs6mAnQMTwKr74/RYBgfREJjo5HfBQchOSk7KJqgMAShW3CsYEU8zL8mQMY7OGuRRdBtEsEuJNKr lbm [file] ICAgICAgICAgICAgICAgICAgICAgICAgICAgICAgICAgICAgICAgICAgICAgICAgICAgICAgICAgDQog ICAgICAgICAgICAgICAgICAgICAgICAgICAgICAgIC AgICAgICAgICAgICAgICAgICAgICAgICAgICAgICAgICAgICAgICAgICAgICAgICAgICAgICAgICAgIC AgICAgICAgDQogICAgICAgICAgICAgICAgICAgICAgICAgICAgICAgICAgICAgICAgICAgICAgICAgIC AgICAgICAgICAgICAgICAgICAgICAgICAgICAgICAg ICAgICAgICAgICAgICAgICAgDQogICAgICAgICAgICAgICAgICAgICAgICAgICAgICAgICAgICAgICAg ICAgICAgICAgICAgICAgICAgICAgICAgICAgICAgICAgICAgICAgICAgICAgICAgICAgICAgICAgICAg DQogICAgICAgICAgICAgICAgICAgICAgICAgICAgIC AgICAgICAgICAgICAgICAgICAgICAgICAgICAgICAgICAgICAgICAgICAgICAgICAgICAgICAgICAgIC AgICAgICAgICAgDQogICAgICAgICAgICAgICAgICAgICAgICAgICAgICAgICAgICAgICAgICAgICAgIC AgICAgICAgICAgICAgICAgICAgICAgICAgICAgICAg ICAgICAgICAgICAgICAgICAgICAgDQogICAgICAgICAgICAgICAgICAgICAgICAgICAgICAgICAgICAg ICAgICAgICAgICAgICAgICAgICAgICAgICAgICAgICAgICAgICAgICAgICAgICAgICAgICAgICAgICAg ICAgDQogICAgICAgICAgICAgICAgICAgICAgICAgIC AgICAgICAgICAgICAgICAgICAgICAgICAgICAgICAgICAgICAgICAgICAgICAgICAgICAgICAgICAgIC AgICAgICAgICAgICAgDQogICAgICAgICAgICAgICAgICAgICAgICAgICAgICAgICAgICAgICAgICAgIC AgICAgICAgICAgICAgICAgICAgICAgICAgICAgICAg ICAgICAgICAgICAgICAgICAgICAgICAgDQogICAgICAgICAgICAgICAgICAgICAgICAgICAgICAgICAg ICAgICAgICAgICAgICAgICAgICAgICAgICAgICAgICAgICAgICAgICAgICAgICAgICAgICAgICAgICAg MMHiIFTvGUg1S6cdGNJwQHSsCL2nAYh7Wu3+DQoNCm IoPPA3iwSwpO3IMX4zm3EtWDofQXPmo6GlGDc2DJ3LJMSeBWxiPT7LYEvcbn2GETBxFFVwfIFVh5ebJq HkDEL0VCPxRdplVS6AIUYjE1qhnsSlWWUvLEUPXHrlXWPLSXgnVMZJUTKbWDDeQaFyKwPsHIXjLALeLV JMBTE0UBKoKoJeBXReSUNuCgNmQTERIR5YRjLwI9Rq oI60YKaLUw4+ZMebviMxBfoKWeCfUXUab7GbEEk0HH8JDHEbWgkgp0KbLJIlBSURAHgfPT1PRKZ1PZKi CTGvRl8QMIKvW373yzRmGO4KIb0OGeXoWM3ope7GTOMsSEKvIlgKRqu9NWjwCQ2FvDCoHQqBfv3lmkYv mdBRz2VhiyXjrTOHTI1uKXwqZMARKHG3zcuxpAloKO PyPUXsAK3kTo8wXKYnZIF5SmGyPRIKEF6DGWBvPXHpfVInSZCcEKUIDQ4NTTjuQMZ2CLBtlgQhwZRqPA rtYA5GFFHhgrAlKCTlHVGGODt+Yy6ZXI1zt4SdBBx8GIOaHO5uyw4AOUuPYcLxJ2K9vNIlY0O0RVdfAx 2TFSOhSGQuUGMsSUFKLGrgLV1ZUB9bnrZ8PP3EbNOf JEOuUEEcqWUtNFw4I02hyQUnUIiuTU3RKGQ+Cristina+Vl1SFHDhRSHgHYLbGiTiQGPQEoDmB9KoI8EFi6Ml O5MvDK50pTzzphHlLVxkSB4VSC8hKGJdSWJRXI0KrREycN1wiuQ1RsMfMXQXJaTnL23kxLVnZSTyDIXn DEBfWc7QTHTsE1ZfsbWkgIcocaCkYDExVIKRIE9VHP ovmlGgpXNxxOptLX03bJuhAL1GBk5XEfIxHN9tzc6QaXDaRu6AVAE0HU5PRIFjQNTdYALmPUR0FQJeWa UfATxsCPPlQPMqDCA5OLWkBKOsFP3TVpYcPBNvFCN5RDMmNPXbSDHhck3GJMGxCXM3XiW1SiKhKOHkJE AuBAsfZRCnPMIbBBF3BIWvIFIvXJ6QYeYlGQFfVWD6 ATkxQDBiCXRsmo0IFMFeKIMaNMYpQmIsJQZsJLWkARnpVMVsZNK1LBzxVZTlPXWmOS0UCjJpZDVpGEJx VOkeGRLbUZKgqj7LHJXuGSDqFECkXpUlPUAeGVJpFHurPKBbURK1XXB7NIVyFLCyQN5YQbTjALNkUNN8 GcumMJQkAWYttg7RKITvVCEvEUf0JyTrPNYeWMFvJO xcBXUwIOW3Ces9FHEyMSWfJE3SGrMfUABpHQQ6JKLlIRMyEPCdsq9IFEByVCUkEuJ2WRWbPZTmKPYvYQ wnDUXvGYB2FkjtWZMaLONoKA5IYiHlMAZiGbW0JQAzUOJnEJNzmp8UCAYoOLWoHUj6SsTgTASmFYIrAT hbDSTjSWP1SKF7VLBbRWXkAZ2IXtWwROTeDjBzPGQo OGDuYQWrhb3JQURiZUKwHyP5GsZlFGOvHQVoWGqeRJKjYHT2Req8TCNwTAXwQN1KGpZbRCDzWfw7HMkt QSJyEATrou1MOWFxWPGbYns9BVBlFHJpRGWwSEffSFQrBIR5KBS6QYDsQYIwFI8FKyYfXNCpYlpxZYse XMChQASawi2HMJSyXBJxACP3BBCtFZYhZIGmBFzlKX CnMVT4CUn3WGXbGEGaEN4CWxEyOAXoXTC0FSdyJHPlVICguv4NUCWeUUD2GFQlDnDuDNXfCEBcDOdnOU WkHWYwYVKsNGOiSVRnVF9GGjEcSQMfTTF1NAFfYODqYEVdea0YPQJyMFE4VUajLaEiHMPeVIEvYPkbPN WhAOMyInibFBWiNPRvMH0ZQbDaBCJuIYB9TmvoDDEi APLxjf1HWAItVMZ6YiJ5YkAiSWWbPTWcLOmwXPBsRWQvXXz9DIBhFNGxBF8TXkOxLAMmNaJ3NGEtLBDl CTFjem4QXTQeEAW5GyNbZdSmQIQeEKUiEAxuNAYrDWsmZcVyQYUzVTXcEQ8DCjCaHYIuNYBmZZHjRZQf SDRazb9OMDRtQVR7UbecEWMaDXYlWEZoAKtuPCYdMH izBMR4MNUuEMMbFA1CNmTgIGTzDCH9IzFbDSZwHQMkxn6NuLIceGkhpd0KVSnZHs8KzSryTVN0MKmfSz 2haVE3RROfMGVXVt5QyfMkNMIzISYCBPvuLSTkHBD2FfPuWCCiU3FjXUSxQtCoAeguOIO8AaLdTxS4Kr K1VcY7VjP2LDPiOEQ4SfFqLaViUuZdPfH6RRp8IWUf YzhjMzk+GV8yBPh+Uv1Pi7KapqE5epVtIAr6InPsKJ1OSZPKH3CBZs== ID Date Data Source [id number] 07/28/2019 10:25:56 AM [facility] Name Value Range Interpretation Code Description Data Renetta rce(s) Supporting Document(s) Hemoglobin A1c/Hemoglobin.total in Blood 7.9 % 4.0-6.0 [facility] Glucose mean value [Mass/volume] in Blood Estimated fr om glycated hemoglobin 180 mg/dL <126 [facility] ID Date Data Source [id number] 07/28/2019 10:13:43 AM [facility] Name Value Range Interpretation Code Description Data Renetta rce(s) Supporting Document(s) Glucose [Mass/volume] in Capillary blood by Glucometer 111 mg/dL 70- 140 [facility] ID Date Data Source [id number] 07/16/2019 12:00:00 PM EST [facility] ([facility]) Name Value Range Interpretation Code Description Data Renetta rce(s) Supporting Document(s) Prothrombin Time 13.7 s 11.8-14.0 [facility] ([facility] Inr 1.08 [facility] ([facility] THERAPUTIC HUMAN INR VALUES INDICATIONS NORMAL RANGES PROPHYLAXIS/TREATMENT OF: VENOUS THROMBOSIS 2.0-3.0 PULMONARY EMBOLISM 2.0-3.0 PREVENTION OF SYSTEMIC EMBOLISM FROM: TISSUE HEART VALVES 2.0-3.0 ACUTE MYOCARDIAL INFARCTION 2.0-3.0 VALVULAR HEART DISEASE 2.0-3.0 ATRIAL FIBRILLATION 2.0-3.0 MECHANICAL VALVES(HIGH RISK) 2.5-3.5 RECURRENT MYOCARDIAL INFARCTION 2.5-3.5 ID Date Data Source [id number] 07/16/2019 12:00:00 PM EST [facility] ([facility]) Name Value Range Interpretation Code Description Data Renetta rce(s) Supporting Document(s) Sodium Level 142 meq/L 136-145 [facility] ([facility]) Potassium Serum 4.0 meq/L 3.5-5.1 [facility] ([facility]) Chloride Level 108 meq/L 98-107 [facility] ([facility]) Carbon Dioxide Level 26 meq/L 21-32 [facility] ([facility]) Anion Gap 8 meq/L 8-16 [facility] ID Date Data Source [id number] 07/16/2019 12:00:00 PM EST [facility] ([facility]) Name Value Range Interpretation Code Description Data Renetta rce(s) Supporting Document(s) White Blood Count 5.3 10 4.0-10.0 [facility] ([facility]) Red Blood Count 5.17 10 4.30-6.10 [facility] ([facility]) Hematocrit 46.0 % 42.0-52.0 [facility] ([facility]) Hemoglobin 15.6 g/dL 13.5-17.5 [facility] ([facility]) Mean Corpuscular Hemoglobin 30.2 pg 27.0-33.0 [facility] ([facility]) Mean Corpuscular HGB Conc 33.9 g/dL 32.0-36.5 [facility] ([facility]) Mean Corpuscular Volume 89.0 fl 80.0-96.0 M [facility] ([facility]) Platelet Count, Automated 167 10 150-450 [facility] ([facility]) Red Cell Distribution Width 12.9 % 11.5-14.5 [facility] ([facility]) Nucleated Red Blood Cell % 0.0 % 0-0 MED ENT ([facility]) Procedure Social History Code Duration Value Status Description Data Source(s ) Smoking 06/15/2020 12:00:00 AM EST Never Smoker completed Never S moker eCW1 ([facility]) Smoking 06/15/2020 12:00:00 AM EST Never Smoker completed Never S moker eCW1 ([facility]) Smoking 06/15/2020 12:00:00 AM EST Never Smoker completed Never S moker eCW1 ([facility]) Smoking 06/15/2020 12:00:00 AM EST Never Smoker completed Never S moker eCW1 ([facility]) Smoking 06/15/2020 12:00:00 AM EST Never Smoker completed Never S moker eCW1 ([facility]) Smoking 06/15/2020 12:00:00 AM EST Never Smoker completed Never S moker eCW1 ([facility]) Smoking 06/15/2020 12:00:00 AM EST Never Smoker completed Never S moker eCW1 ([facility]) Smoking 06/15/2020 12:00:00 AM EST Never Smoker completed Never S moker eCW1 ([facility]) Smoking 06/15/2020 12:00:00 AM EST Never Smoker completed Never S moker eCW1 ([facility]) Smoking 06/15/2020 12:00:00 AM EST Never Smoker completed Never S moker eCW1 ([facility]) Smoking 05/24/2020 12:00:00 AM EST Never Smoker completed Never S moker eCW1 ([facility]) Smoking 05/24/2020 12:00:00 AM EST Never Smoker completed Never S moker eCW1 ([facility]) Smoking 05/24/2020 12:00:00 AM EST Never Smoker completed Never S moker eCW1 ([facility]) Smoking 05/24/2020 12:00:00 AM EST Never Smoker completed Never S moker eCW1 ([facility]) Smoking 05/12/2020 12:00:00 AM EST Patient has never smoked co mpleted Patient has never smoked [facility] ([facility]) Smoking 03/30/2020 12:00:00 AM EDT Never Smoked Cigarettes com pleted Never Smoked Cigarettes [facility] ([facility]) Alcohol intake 10/28/2019 12:00:00 AM EDT Current drinker of al cohol (finding) completed Current drinker of alcohol (finding) [facility] Tobacco use and exposure 10/28/2019 12:00:00 AM EDT Current user co mpleted Current user [facility] Smoking 10/28/2019 12:00:00 AM EDT Never smoker completed Never [facility] Smoking 10/28/2019 12:00:00 AM EDT Never smoker completed Never [facility] Alcohol intake 07/28/2019 12:00:00 AM EST Current drinker of al cohol (finding) completed Current drinker of alcohol (finding) [facility] Smoking 07/28/2019 12:00:00 AM EST Never smoker completed Never [facility] Vital Signs ID Date Data Source [id number] Name Value Range Interpretation Code Description Data Source(s) Diastolic blood pressure 68 mm[Hg] 68 mm[Hg] eCW1 ([facility]) Systolic blood pressure 138 mm[Hg] 138 mm[Hg] e CW1 ([facility]) Body temperature 96.8 [degF] 96.8 [degF] eCW1 ( [facility]) Respiratory rate 16 /min 16 /min eCW1 ([facility]) Heart rate 69 /min 69 /min eCW1 ([facility]) Body mass index (BMI) [Ratio] 36.68 kg/m2 36.68 kg/m2 W1 ([facility]) Body height 71 [in_i] 71 [in_i] eCW1 ([facility]) Body weight 263 [lb_av] 263 [lb_av] eCW1 ([facility]) Diastolic blood pressure 78 mm[Hg] 78 mm[Hg] eCW1 ([facility]) Systolic blood pressure 124 mm[Hg] 124 mm[Hg] e CW1 ([facility]) Body temperature 97.1 [degF] 97.1 [degF] eCW1 ( [facility]) Respiratory rate 16 /min 16 /min eCW1 ([facility]) Heart rate 67 /min 67 /min eCW1 ([facility]) Body mass index (BMI) [Ratio] 36.40 kg/m2 36.40 kg/m2 eCW1 ([facility]) Body height 71 [in_i] 71 [in_i] eCW1 ([facility]) Body weight 261 [lb_av] 261 [lb_av] eCW1 ([facility]) Diastolic blood pressure--sitting 78 mm[Hg] 78 mm[Hg] [facility] ([facility]) large cuff, Ra Systolic blood pressure--sitting 140 mm[Hg] 140 mm[Hg] [facility] ([facility]) large cuff, Ra Heart rate 61 /min 61 /min [facility] ([facility]) Body mass index (BMI) [Ratio] 36.4 kg/m2 36.4 k g/m2 [facility] ([facility]) Body height 71 [in_i] 71 [in_i] [facility] ([facility]) 5'11" Body weight 261.00 [lb_av] 261.00 [lb_av] MEDEN T ([facility]) Body weight 119.297 kg 119.297 [facility], [facility] Body mass index (BMI) [Ratio] 37.7 kg/m2 37.7 k g/m2 [facility] ([facility], ) Body weight 263.00 [lb_av] 263.00 [lb_av] MEDEN T ([facility], ) Body height 70 [in_i] 70 [in_i] [facility], [facility] 5'10" Body temperature 97.1 [degF] 97.1 [degF] [facility] ([facility], ) Oxygen saturation in Arterial blood by Pulse oximetry 96 % 96 % [facility] ([facility], ) Heart rate 65 /min 65 /min [facility] ([facility], ) Diastolic blood pressure 68 mm[Hg] 68 mm[Hg] [facility] ([facility], ) Systolic blood pressure 124 mm[Hg] 124 mm[Hg] M EDENT ([facility], ) Diastolic blood pressure--sitting 78 mm[Hg] 78 mm[Hg] [facility] ([facility]) large cuff, Ra Systolic blood pressure--sitting 126 mm[Hg] 126 mm[Hg] [facility] ([facility]) large cuff, Ra Heart rate 67 /min 67 /min [facility] ([facility]) Body mass index (BMI) [Ratio] 37.1 kg/m2 37.1 k g/m2 [facility] ([facility]) Body height 71 [in_i] 71 [in_i] [facility] ([facility]) 5'11" Body weight 266.00 [lb_av] 266.00 [lb_av] [facility] T ([facility]) Respiratory rate 18 /min 18 /min eCW1 ([facility]) Heart rate 71 /min 71 /min eCW1 ([facility]) Body mass index (BMI) [Ratio] 36.82 kg/m2 36.82 kg/m2 eCW1 ([facility]) Body height 71 [in_us] 71 [in_us] eCW1 ([facility]) Body weight Measured 264 [lb_av] 264 [lb_av] eC W1 ([facility]) Diastolic blood pressure 84 mm[Hg] 84 mm[Hg] eCW1 ([facility]) Systolic blood pressure 158 mm[Hg] 158 mm[Hg] e CW1 ([facility]) Body temperature 97.4 [degF] 97.4 [degF] eCW1 ( [facility]) Body weight 122.472 kg 122.472 kg [facility] ([facility], ) Body mass index (BMI) [Ratio] 38.7 kg/m2 38.7 k g/m2 [facility] ([facility], ) Body weight 270.00 [lb_av] 270.00 [lb_av] MEDEN T ([facility], ) Body height 70 [in_i] 70 [in_i] [facility] ([facility], ) 5'10" Body temperature 97.2 [degF] 97.2 [degF] [facility] ([facility], ) Oxygen saturation in Arterial blood by Pulse oximetry 96 % 96 % [facility] ([facility], ) Heart rate 65 /min 65 /min [facility] ([facility], ) Diastolic blood pressure 82 mm[Hg] 82 mm[Hg] [facility] ([facility], ) Systolic blood pressure 150 mm[Hg] 150 mm[Hg] M EDENT ([facility], ) Body mass index (BMI) [Ratio] [...] rate 78 /min 78 /min [facility] ([facility] Diastolic blood pressure 70 mm[Hg] 70 mm[Hg] [facility] ([facility] Systolic blood pressure 122 mm[Hg] 122 mm[Hg] M EDENT ([facility] Diastolic blood pressure 72 mm[Hg] 72 mm[Hg] W1 ([facility]) Systolic blood pressure 136 mm[Hg] 136 mm[Hg] e CW1 ([facility]) Body mass index (BMI) [Ratio] 36.82 kg/m2 36.82 kg/m2 eCW1 ([facility]) Body height 71 [in_us] 71 [in_us] W1 ([facility]) Body weight Measured 264 [lb_av] 264 [lb_av] eC W1 ([facility]) Diastolic blood pressure 72 mm[Hg] 72 mm[Hg] eCW1 ([facility]) Systolic blood pressure 145 mm[Hg] 145 mm[Hg] e CW1 ([facility]) Body temperature 98.3 [degF] 98.3 [degF] eCW1 ( [facility]) Respiratory rate 18 /min 18 /min eCW1 ([facility]) Heart rate 64 /min 64 /min eCW1 ([facility]) Body mass index (BMI) [Ratio] 36.54 kg/m2 36.54 kg/m2 eCW1 ([facility]) Body height 71 [in_us] 71 [in_us] eCW1 ([facility]) Body weight Measured 262 [lb_av] 262 [lb_av] eC W1 ([facility]) Body weight 118.390 kg 118.390 kg MEDENT ([facility], ) Body mass index (BMI) [Ratio] 36.4 kg/m2 36.4 k g/m2 [facility] ([facility]) Body weight 261.00 [lb_av] 261.00 [lb_av] MEDEN T ([facility]) Body height 71 [in_i] 71 [in_i] [facility] 5'11" Diastolic blood pressure 80 mm[Hg] 80 mm[Hg] [facility] ([facility]) Systolic blood pressure 149 mm[Hg] 149 mm[Hg] M EDENT ([facility]) Diastolic blood pressure--sitting 76 mm[Hg] 76 mm[Hg] [facility] ([facility]) large cuff, [place] Systolic blood pressure--sitting 138 mm[Hg] 138 mm[Hg] [facility] ([facility]) large cuff, [place] Heart rate 63 /min 63 /min MED[facility] ([facility] Body mass index (BMI) [Ratio] 36.5 kg/m2 36.5 k g/m2 [facility] ([facility]) Body height 71 [in_i] 71 [in_i] [facility] 5'11" Body weight 262.00 [lb_av] 262.00 [lb_av] MEDEN T ([facility]) ID Date Data Source [id number] [facility]24[facility] Value Range Interpretation Code Description Data Source(s) WEIGHT RECORDED 261.6 lb 261.6 lb [facility] Body height Measured 70.08 in 70.08 in [facility] ID Date Data Source [id number] 01/03/2020 11:02:56 AM [facility] Name Value Range Interpretation Code Description Data Source(s) WEIGHT RECORDED 261 lb 261 lb [facility] Body height Measured 70 in 70 in [facility] ID Date Data Source [id number] 07/28/2019 10:41:46 AM [facility] Name Value Range Interpretation Code Description Data Source(s) WEIGHT RECORDED 261 lb 261 lb [facility] Body height Measured 70 in 70 in [facility] Patient Treatment Plan of Care Planned Activity Planned Date Details Description Data Source (s) atorvastatin 40 MG Oral Tablet 04/20/2020 12:00:00 AM [facility] Cholecalciferol 4000 UNT Oral Capsule 04/20/2020 12:00:00 AM [facility] 0.5 ML dulaglutide 3 MG/ML Auto-Injector [Trulicity] 020 12:00:00 AM [facility] OneTouch Delica Lancets 33G 04/20/2020 12:00:00 AM [facility] 3 ML insulin detemir 100 UNT/ML Pen Injector [Levemir] 04/20/2020 12:00:00 AM [facility] 3 ML Insulin, Aspart, Human 100 UNT/ML Pen Injector [N ovoLog] 04/20/2020 12:00:00 AM [facility] FreeStyle Shabbir 14 Day Sensor 04/20/2020 12:00:00 AM [facility] Losartan Potassium 100 MG Oral Tablet 04/19/2020 12:00:00 AM [facility] Naproxen 500 MG Oral Tablet 03/25/2020 12:00:00 AM [facility] BD Pen Needle Original U/F 29G X 12.7MM (Insulin Pen N eedle) 03/21/2020 12:00:00 AM [facility] Levothyroxine Sodium 0.125 MG Oral Tablet 03/21/2020 12:00:[address] [facility] Cholecalciferol 1000 UNT Oral Tablet 03/21/2020 12:00:00 AM [facility] tizanidine 4 MG Oral Tablet 11/24/2019 12:00:00 AM [place] [id number] ([facility]) Naproxen 500 MG Oral Tablet 11/24/2019 12:00:00 AM [place] [id number] ([facility]) FreeStyle Shabbir 14 Day Sensor 11/23/2019 12:00:00 AM [facility] Baclofen 10 MG Oral Tablet 11/18/2019 12:00:00 AM [facility] Insulin Pen Needle 29G X 12.7MM (BD ULTRA-FINE PEN NEE DLES) 10/28/2019 12:00:00 AM [facility] 0.5 ML dulaglutide 3 MG/ML Auto-Injector [Trulicity] 12:00:00 AM [facility] pantoprazole 40 MG Delayed Release Oral Tablet 10/01/2019 12:00:00 AM [facility] Losartan Potassium 50 MG Oral Tablet 10/01/2019 12:00:00 AM [facility] Terbinafine hydrochloride 10 MG/ML Topical Cream 09/28/2019 12:00:0 0 AM [facility] Insulin Pen Needle 29G X 12.7MM (BD ULTRA-FINE PEN NEE DLES) 09/06/2019 12:00:00 AM [facility] Ondansetron 4 MG Disintegrating Oral Tablet 09/04/2019 12:00:00 AM [facility] Terbinafine hydrochloride 10 MG/ML Topical Cream 08/27/2019 12:00:0 0 AM [place] [id number] ([facility]) 3 ML insulin detemir 100 UNT/ML Pen Injector 07/28/2019 12:00:00 AM [facility] 3 ML Insulin, Aspart, Human 100 UNT/ML Pen Injector 07/28/19 12:00:00 AM [facility] Cholecalciferol 1000 UNT Oral Tablet 07/28/2019 12:00:00 AM [facility] Levothyroxine Sodium 0.125 MG Oral Tablet 07/28/2019 12:00:00 AM [facility] FreeStyle Shabbir 14 Day Sensor 07/28/2019 12:00:00 AM [facility] 0.5 ML dulaglutide 3 MG/ML Auto-Injector 07/28/2019 12:00:00 AM [facility] Insulin Pen Needle 29G X 12.7MM (BD ULTRA-FINE PEN NEE DLES) 07/02/2019 12:00:00 AM [facility] ospital 0.5 ML dulaglutide 3 MG/ML Auto-Injector 05/28/2019 12:00:00 AM [facility] 3 ML Insulin, Aspart, Human 100 UNT/ML Pen Injector 05/28/20 12:00:00 AM [facility] 3 ML insulin detemir 100 UNT/ML Pen Injector 05/28/2019 12:00:00 AM [facility] Continuous Blood Gluc Sensor (FREESTYLE SHABBIR 14 DAY S ENSOR) [facility] 03/10/2019 12:00:00 AM [facility]spital Cholecalciferol 1000 UNT Oral Tablet 12/02/2018 12:00:00 AM [facility] Levothyroxine Sodium 0.125 MG Oral Tablet 10/26/2018 12:00:[address] [facility] JAZZY BLANC 33G [facility] 06/17/2017 12:00:00 AM [facility]
[2020-07-21 16:52] LABS: ALBUMIN 2.6 GM/DL (3.2-5.2); BILIRUBIN,DIRECT 0.2 MG/DL (0.0-0.2); BILIRUBIN,TOTAL 0.8 MG/DL (0.2-1.0); THYROID STIMULATING HORMONE 7.94 uIU/ML (0.358-3.740)
[2020-07-21] MEDS ORDERED: TRAM50TA2 PO (17:04)
[2020-07-21] MEDS ORDERED: ACET-683 PO (17:04)
[2020-07-21] MEDS ORDERED: VENTAER INH (17:04)
[2020-07-21] MEDS ORDERED: COMBAER6 INH (17:04)
[2020-07-21] MEDS ORDERED: BASA100I SC (17:04)
[2020-07-21] MEDS ORDERED: TESS100C PO (17:04)
[2020-07-21] MEDS ORDERED: PROBCAP2 PO (17:04)
[2020-07-21] MEDS ORDERED: ACETAMINOPHEN TAB 650MG DOSE (2X325MG) PO PRN (17:30)
[2020-07-21] MEDS ORDERED: BENZONATATE 100 MG CAP PO PRN (17:30)
[2020-07-21] MEDS ORDERED: GLUCAGON INJ 1MG VIAL SC PRN (17:45)
[2020-07-21] MEDS ORDERED: GLUCOSE 4GM CHEW TABLET PO PRN (17:45)
[2020-07-21] MEDS ORDERED: DEXTROSE 50% 50 ML SYRINGE IV PRN (17:45)
[2020-07-21] MEDS ORDERED: ISOVUE-370 76% 100ML VIAL As Ordered ONE (17:51)
[2020-07-21 17:56] LABS: C REACTIVE PROTEIN QUANTITATIV 11.9 MG/DL (0.00-0.30); FREE T4 1.25 NG/DL (0.76-1.46)
[2020-07-21 18:13] LABS: D-DIMER QUANT 606.72 ng/ml (<500)
--- OUTSIDE RECORDS SUMMARY | 2020-07-21 18:16 | CCD ---
Author Author [facility] Organization [facility] Address Unknown Phone Unavailable Care Team Providers Care Inspector Plug Seam Name Role Phone Jeremy Fatima MD Unavailable [...] Unavailable Unavailable GENA, SATYA PA Unavailable Unavailable EGNA, SATYA PA Unavailable Unavailable GENA, SATYA PA [...] REINDL, RACHEL WRIGHT Unavailable Unavailable REINDL, RACHEL WRGIHT Unavailable Unavailable REINDL, RACHEL WRIGHT Unavailable Unavailable REINDL, RACHEL WRIGHT Unavailable Unavailable REINDL, RACHEL WRIGHT Unavailable Unavailable REINDL, RACHEL WRIGHT Unavailable Unavailable REINDL, RACHEL WRIGHT Unavailable Unavailable REINDL, RACHEL WRGIHT Unavailable Unavailable REINDL, RACHEL WRIGHT Unavailable Unavailable [...] RACHEL WRIGHT Unavailable Unavailable Chase, L Antonella IRONING PLEATER Unavailable Unavailable Chase, L Antonella IRONING PLEATER Unavailable Unavailable Chase, L Antonella IRONING PLEATER Unavailable Unavailable Chase, L Antonella IRONING PLEATER Unavailable Unavailable Chase, L Antonella IRONING PLEATER Unavailable Unavailable Chase, L Antonella IRONING PLEATER Unavailable Unavailable Chase, L Antonella IRONING PLEATER Unavailable Unavailable Chase, L Antonella IRONING PLEATER Unavailable Unavailable Chase, L Antonella IRONING PLEATER Unavailable Unavailable Chase, L Antonella IRONING PLEATER Unavailable Unavailable Chase, L Antonella IRONING PLEATER Unavailable Unavailable Chase, L Antonella IRONING PLEATER Unavailable Unavailable Chase, L Antonella IRONING PLEATER Unavailable Unavailable Chase, L Antonella IRONING PLEATER Unavailable Unavailable Chase, L Antonella IRONING PLEATER Unavailable Unavailable Chase, L Antonella IRONING PLEATER Unavailable Unavailable Cahse, L Antonella IRONING PLEATER Unavailable Unavailable Chase, L Antonella IRONING PLEATER Unavailable Unavailable Chase, L Antonella IRONING PLEATER Unavailable Unavailable Chase, L Antonella IRONING PLEATER Unavailable Unavailable Chase, L Antonella IRONING PLEATER Unavailable Unavailable Chase, L Antonella IRONING PLEATER Unavailable Unavailable Re-disclosure Warning The records that [...] is protected by Article 27-F of the [place] State Public Health law. If you continue you may have access to information: Regarding HIV / AIDS; Provided by facilities licensed or operated by the [facility] Office of Mental Health; or Provided by the [facility] Office for People With Developmental Disabilities. If such information is present, then the following [facility] mandated warning applies: This information [...] law may result in a fine or prison sentence or both. A general authorization for the release of medical or other information is NOT sufficient authorization for further disc losure. Allergies and Adverse Reactions Type Description Substance Reaction Status Data Source(s ) Drug allergy Cefdinir cefdinir Tongue tingling Active eCW1 ( [facility]) Drug allergy Augmentin amoxicillin / clavulanate Unknown Active eCW1 ([facility]) Drug allergy Pseudoephedrine HCl Pseudoephedrine hospitalized for hypertensive urgency Active eCW1 ([facility]) santee sioux santee sioux santee sioux Anaphylaxis Active eCW1 ([facility]) santee sioux santee sioux santee sioux Anaphylaxis Active eCW1 ([facility]) santee sioux santee sioux santee sioux Anaphylaxis Active eCW1 ([facility]) santee sioux santee sioux santee sioux Anaphylaxis Active eCW1 ([facility]) Family History Family Member Name Family Member Gender Family Member Status Date o f Status Description Data Source(s) Unknown Male Problem MEDENT ([facility]) Unknown Unknown Problem MEDENT ([facility] ) [facility] Unknown Problem MEDENT ([facility] ) Unknown Unknown Problem MEDENT ([facility] ) Unknown Female Problem MEDENT ([facility]) Unknown Female Problem MEDENT ([facility]) Encounters Encounter Providers Location Date Indications Data Source(s ) Outpatient Attender: SATYA ANDERSON 11/01/2020 12:00:0 0 AM [facility] Outpatient Attender: Evan Gonzalez 08/03/2020 12:00:00 AM [facility] Unknown [address] [facility] [facility] [address] 07/20/2020 12:00:00 AM EST eCW1 ([facility]) [place] [address] [facility] [facility] [address] 07/20/2020 12:00:00 AM EST eCW1 ([facility]) [place] [address] [facility] [facility] [address] 07/13/2020 12:00:00 AM EST eCW1 ([facility]) [place] [address] [facility] [facility] [address] 07/13/2020 12:00:00 AM EST eCW1 ([facility]) Unknown [address] [facility] [facility] [address] 07/11/2020 12:00:00 AM EST eCW1 ([facility]) Unknown [address] [facility] [facility] [address] 07/11/2020 12:00:00 AM EST eCW1 ([facility]) Unknown [address] [facility] [facility] [address] 07/10/2020 12:00:00 AM EST eCW1 ([facility]) Unknown [address] [facility] [address] 07/05/2020 12:00:00 AM EST eCW1 ([facility]) Unknown [address] [facility] [address] 07/04/2020 12:00:00 AM EST eCW1 ([facility]) [place] [address] [facility] [address] 06/15/2020 12:00:00 AM EST eCW1 ([facility]) Unknown [address] [facility] [address] 06/09/2020 12:00:00 AM EST eCW1 ([facility]) [place] [address] [facility] [place] [address] 06/08/2020 12:00:00 AM EST eCW1 ([facility]) Unknown [address] [facility] [address] 05/26/2020 12:00:00 AM EST eCW1 ([facility]) [place] [address] [facility] [place] [address] 05/24/2020 12:00:00 AM EST eCW1 ([facility]) Outpatient Attender: Jessie ANDERSON Main Office 05/12/2020 07:15:0 0 AM EST MEDENT ([facility]) Outpatient Attender: SATYA ANDERSON [id number] 12:00:00 AM EDT - 04/20/2020 12:42:09 PM EDT Type 2 diabetes mellitus with hyperglycemia [facility] Type 2 diabetes mellitus with hyperglyce starla Outpatient Attender: Antonella Madera/Clarisa/Yasmany/Reinleif 03/30/2020 10:00:00 AM EDT MEDENT ([facility]) Outpatient Attender: Evan Gonzalez 01/27/2020 12:00:00 AM EDT [facility] Outpatient Attender: Jessie ANDERSON Main Office 12/03/2019 09:45:0 0 AM EDT MEDENT ([facility]) [address] [address] 11/30/2019 12:00:00 AM EDT [facility]CW1 [facility] Outpatient Referrer: Tristan Fatima MD 11/26/2019 05:14:00 AM EDT [facility] [address] [address] 11/25/2019 12:00:00 AM EDT eCW1 ([facility] [address] [address] 11/24/2019 12:00:00 AM EDT [facility]CW1 ([facility] [address] [address] 11/22/2019 12:00:00 AM EDT [facility]CW1 ([facility] [address] [place] [address] 11/22/2019 12:00:00 AM EDT eCW1 ([facility] [address] [address] 11/19/2019 12:00:00 AM EDT eCW1 ([facility] [address] [address] 11/17/2019 12:00:00 AM EDT eCW1 ([facility]) Outpatient Attender: Antonella Maedra/Clarisa/Yasmany/Cande 11/02/2019 10:30:00 AM EDT MEDENT ([facility]) Outpatient Attender: SATYA [id number] 12:00:00 AM EDT - 10/28/2019 12:30:32 PM EDT Type 2 diabetes mellitus with hyperglycemia [facility] Type 2 diabetes mellitus with hyperglyce starla [address] [address] 10/12/2019 12:00:00 AM EDT eCW1 ([facility]) Outpatient Attender: Antonella Stone NP Main Office 09/16/2019 10:00:00 AM EDT MEDENT ([facility] Outpatient Referrer: Tristan Fatima MD 09/09/2019 11:44:00 AM EST [facility] [address] [address] 08/27/2019 12:00:00 AM EST eCW1 ([facility]) [address] [address] 08/12/2019 12:00:00 AM EST eCW1 ([facility]) Outpatient Referrer: Tristan Fatima MD 07/29/2019 09:04:00 PM EST [facility] Outpatient Attender: SATYA ANDERSON [id number] 12:00:00 AM EST - 07/28/2019 10:49:43 AM EST Type 2 diabetes mellitus with hyperglycemia [facility] Type 2 diabetes mellitus with hyperglyce starla [address], [facility] [address] 07/19/2019 12:00:00 AM EST eCW1 ([facility]) [address] [address] 07/16/2019 12:00:00 AM EST eCW1 ([facility]) Outpatient Attender: RACHEL Madera/Clarisa/Yasmany/Singh yadav 07/14/2019 10:00:00 AM EST MEDENT ([facility] [place] [address] [facility] [facility], [facility] [address] 07/13/2019 12:00:00 AM EST eCW1 ([facility]) Outpatient Attender: Jessie ANDERSON Main Office 07/09/2019 10:30:0 0 AM EST MEDENT ([facility]) [facility] Resident [address] [place] [address] 06/02/2019 12:00:00 AM EST eCW1 ([facility]) Medications Medication Brand Name Start Date [...] NEEDED FOR NAUSEA AND VOMITING SOLD: 06/06/2020 [facility] Cholecalciferol 2000 UNT Oral Capsule Vitamin D3 05/11/2020 12:00:00 AM EST ORAL active MEDENT ([facility] 100 unit/mL 04/30/2020 12:00:00 AM EDT insulin [...] Take 1 capsu le by mouth daily [facility] 0.4 mg 04/20/2020 12:00:00 AM EDT tablet, sublingual [address] ONE TABLET UNDER THE TONGUE EVERY 5 MINUTES FOR UP TO 3 DOSES NEEDED FOR CHEST PAIN. IF CHEST PAIN STILL PERSISTS CONTACT [address] ONE TABLET UNDER THE TONGUE EVERY 5 MINUTES FOR UP TO 3 DOSES NEEDED FOR CHEST PAIN. IF CHEST PAIN STILL PERSISTS CONTACT 911 SOLD: 07/19/2020 [facility] atorvastatin 40 MG Oral Tablet Atorvastatin Calcium 40 MG Oral Tablet (LIPITOR) Atorvastatin Calcium 40 MG Oral Tablet (LIPITOR) 04/20/2020 12:00:00 AM EDT active [facility] 3 ML Insulin, Aspart, Human 100 UNT/ML P en Injector [NovoLog] NovoLOG FlexPen 100 UNIT/ML Subcutaneous Solution Pen-injector (insulin aspart) NovoLOG FlexPen 100 UNIT/ML Subcutaneous Solution Pen-injector (insulin aspart) 04/20/2020 12:00:00 AM EDT active Type 2 diabetes mellitus with hyperglycemia, with long-term current use of insulin Inject subq malik y per insulin orders. MDD 140 units with titration and priming. Dx: E11.65. [facility] Type 2 diabetes mellitus with hyperglyce starla, with long-term current use of insulin FreeStyle Shabbir 14 Day Sensor [id number] 04/20/2020 12:00:00 AM EDT active Type 2 diabetes mellitus with hyperglyce starla, with long-term current use of insulin Use as directed. Change every 14 days. Dx: E11.65 [facility] Type 2 diabetes mellitus with hyperglyce [...] of priming and titiration. Dx code: E11.65 [facility] Type 2 diabetes mellitus with hyperglyce starla, with long-term current use of insulin [employer] [address] [address]30 04/20/2020 12:00:00 AM EDT active Type 2 diabetes mellitus with hyperglyce starla, with long-term current use of insulin Use to test blood sugar up to 4 times da adeola. Dx: e11.65 [facility] Type 2 diabetes mellitus with hyperglyce [...] into the sk in once a week [facility] Type 2 diabetes mellitus with hyperglyce [...] (COZAAR) 10/14/2 020 12:00:00 AM EDT active [facility] Naproxen 500 MG Oral Tablet Naproxen 500 MG Oral Table t (NAPROSYN) Naproxen 500 MG Oral Tablet (NAPROSYN) 03/25/2020 12:00:00 AM EDT active TAKE ONE TABLET BY MOUTH EVERY 12 HOURS WITH FOOD OR MILK NEEDED [facility] Levothyroxine Sodium 0.125 MG Oral Table t Levothyroxine Sodium 125 MCG Oral Tablet (SYNTHROID) Levothyroxine Sodium 125 MCG Oral Tablet (SYNTHROID) 03/21/2020 12:00:00 AM EDT active Other specified hypothyroidism TAKE ONE TABLET BY MOUTH EVERY DAY [facility] Other specified hypothyroidism Cholecalciferol 1000 UNT Oral Tablet Vit olmedo D3 25 MCG (1000 UT) Oral Tablet (CHOLECALCIFEROL) Vitamin D3 25 MCG (1000 UT) Oral Tablet (CHOLECALCIFER OL) 03/21/2020 12:00:00 AM EDT aborted TAKE THREE TABLETS BY MOUTH EVERY DAY [facility] BD Pen Needle Original U/F 29G X 12.7MM (Insulin Pen Needle) [id number] 03/21/2020 12:00:00 AM EDT act artemio Type 2 diabetes mellitus with hyperglycemia, with long-term current use of insulin U se as directed. INJECT DIRECTED UP TO 5 TIMES A DAY [facility] Type 2 diabetes mellitus with hyperglyce starla, with long-term current use of insulin CPAP 12/15/2019 12:00:00 AM EDT active MEDENT ([facility]) Losartan Potassium 100 MG Oral Tablet Losartan Potassium 12:00:00 AM EDT ORAL active [facility] ([facility] 100 mg 12/03/2019 12:00:00 AM EDT tablet 90 TAKE ONE TABLET BY MOUTH EVERY DAY AT BEDTIME TAKE ONE TABLET BY MOUTH EVERY DAY AT BEDTIME SOLD: 12/06/2019 [facility] Cholecalciferol 1000 UNT Oral Capsule Vitamin D3 12/02/2019 12:00:00 AM EDT ORAL completed [facility]ENT ([facility] 10 mg 11/30/2019 12:00:00 AM EDT tablet 90 TAKE ONE TABLET BY MOUTH EVERY DAY TAKE ONE TABLET BY MOUTH EVERY DAY SOLD: 12/01/2019 [facility] Naproxen 500 MG Oral Tablet Naproxen 500 MG 11/24/2019 12:00:00 AM EDT active Naproxen 500 MG eCW1 ([facility]) Naproxen 500 MG Oral Tablet Naproxen 500 MG 11/24/2019 12:00:00 AM EDT active Naproxen 500 MG eCW1 ([facility]) tizanidine 4 MG Oral Tablet Tizanidine HCl 4 MG Tizanidine H Cl 4 MG 11/24/2019 12:00:00 AM EDT 1.0 {tablet_as_needed} active Tizanidine HCl 4 MG eCW1 ([facility]) Naproxen 500 MG Oral Tablet Naproxen 500 MG 11/24/2019 12:00:00 AM EDT active Naproxen 500 MG eCW1 ([facility]) tizanidine 4 MG Oral Tablet Tizanidine HCl 4 MG Tizanidine H Cl 4 MG 11/24/2019 12:00:00 AM EDT 1.0 {tablet_as_needed} active Tizanidine HCl 4 MG eCW1 ([facility]) Naproxen 500 MG Oral Tablet Naproxen 500 MG 11/24/2019 12:00:00 AM EDT active Naproxen 500 MG eCW1 ([facility]) tizanidine 4 MG Oral Tablet Tizanidine HCl 4 MG Tizanidine H Cl 4 MG 11/24/2019 12:00:00 AM EDT 1.0 {tablet_as_needed} active Tizanidine HCl 4 MG eCW1 ([facility]) Naproxen 500 MG Oral Tablet Naproxen 500 MG 11/24/2019 12:00:00 AM EDT active Naproxen 500 MG eCW1 ([facility]) Naproxen 500 MG Oral Tablet Naproxen 500 MG 11/24/2019 12:00:00 AM EDT suspended Naproxen 500 MG eCW1 ([facility]) tizanidine 4 MG Oral Tablet Tizanidine HCl 4 MG Tizanidine H Cl 4 MG 11/24/2019 12:00:00 AM EDT 1.0 {tablet_as_needed} active Tizanidine HCl 4 MG eCW1 ([facility]) tizanidine 4 MG Oral Tablet Tizanidine HCl 4 MG Tizanidine H Cl 4 MG 11/24/2019 12:00:00 AM EDT active 1 tablet as needed eCW1 ([facility]) Naproxen 500 MG Oral Tablet Naproxen 500 MG 11/24/2019 12:00:00 AM EDT active Naproxen 500 MG eCW1 ([facility]) tizanidine 4 MG Oral Tablet Tizanidine HCl 4 MG Tizanidine H Cl 4 MG 11/24/2019 12:00:00 AM EDT 1.0 {tablet_as_needed} active Tizanidine HCl 4 MG eCW1 ([facility]) Naproxen 500 MG Oral Tablet Naproxen 500 MG 11/24/2019 12:00:00 AM EDT active Naproxen 500 MG eCW1 ([facility]) tizanidine 4 MG Oral Tablet Tizanidine HCl 4 MG Tizanidine H Cl 4 MG 11/24/2019 12:00:00 AM EDT 1.0 {tablet_as_needed} active Tizanidine HCl 4 MG eCW1 ([facility]) Naproxen 500 MG Oral Tablet Naproxen 500 MG 11/24/2019 12:00:00 AM EDT suspended Naproxen 500 MG eCW1 ([facility]) Naproxen 500 MG Oral Tablet Naproxen 500 MG 11/24/2019 12:00:00 AM EDT active 1 tablet with food or milk a s needed eCW1 ([facility]) tizanidine 4 MG Oral Tablet Tizanidine HCl 4 MG Tizanidine H Cl 4 MG 11/24/2019 12:00:00 AM EDT 1.0 {tablet_as_needed} active Tizanidine HCl 4 MG eCW1 ([facility]) Naproxen 500 MG Oral Tablet Naproxen 500 MG 11/24/2019 12:00:00 AM EDT active Naproxen 500 MG eCW1 ([facility]) Naproxen 500 MG Oral Tablet Naproxen 500 MG 11/24/2019 12:00:00 AM EDT active Naproxen 500 MG eCW1 ([facility]) tizanidine 4 MG Oral Tablet Tizanidine HCl 4 MG Tizanidine H Cl 4 MG 11/24/2019 12:00:00 AM EDT 1.0 {tablet_as_needed} active Tizanidine HCl 4 MG eCW1 ([facility]) tizanidine 4 MG Oral Tablet Tizanidine HCl 4 MG Tizanidine H Cl 4 MG 11/24/2019 12:00:00 AM EDT 1.0 {tablet_as_needed} active Tizanidine HCl 4 MG eCW1 ([facility]) tizanidine 4 MG Oral Tablet Tizanidine HCl 4 MG Tizanidine H Cl 4 MG 11/24/2019 12:00:00 AM EDT 1.0 {tablet_as_needed} active Tizanidine HCl 4 MG eCW1 ([facility]) tizanidine 4 MG Oral Tablet Tizanidine HCl 4 MG Tizanidine H Cl 4 MG 11/24/2019 12:00:00 AM EDT 1.0 {tablet_as_needed} suspended Tizanidine HCl 4 MG eCW1 ([facility]) tizanidine 4 MG Oral Tablet Tizanidine HCl 4 MG Tizanidine H Cl 4 MG 11/24/2019 12:00:00 AM EDT 1.0 {tablet_as_needed} active Tizanidine HCl 4 MG eCW1 ([facility]) tizanidine 4 MG Oral Tablet Tizanidine HCl 4 MG Tizanidine H Cl 4 MG 11/24/2019 12:00:00 AM EDT 1.0 {tablet_as_needed} active Tizanidine HCl 4 MG eCW1 ([facility]) Naproxen 500 MG Oral Tablet Naproxen 500 MG 11/24/2019 12:00:00 AM EDT active Naproxen 500 MG eCW1 ([facility]) tizanidine 4 MG Oral Tablet Tizanidine HCl 4 MG Tizanidine H Cl 4 MG 11/24/2019 12:00:00 AM EDT 1.0 {tablet_as_needed} suspended Tizanidine HCl 4 MG eCW1 ([facility]) Naproxen 500 MG Oral Tablet Naproxen 500 MG 11/24/2019 12:00:00 AM EDT active Naproxen 500 MG eCW1 ([facility]) Naproxen 500 MG Oral Tablet Naproxen 500 MG 11/24/2019 12:00:00 AM EDT active Naproxen 500 MG eCW1 ([facility]) FLASH GLUCOSE SENSOR 11/23/2019 12:00:00 AM EDT kit 2 USE DIRECTED, CHANGE EVERY 14 DAYS USE DIRECTED, CHANGE EVERY 14 DAYS SOLD: 11/23/2019 [facility] [employer]Style Shabbir 14 Day Sensor [id number] 11/23/2019 12:00:00 AM EDT aborted Type 2 diabetes mellitus with hyperglyce starla, with long-term current use of insulin Use as directed. Change every 14 days. Dx: E11.65 [facility] Type 2 diabetes mellitus with hyperglyce [...] TIMES A DAY NEEDED FOR MUSCLE SPASMS [facility] 10 mg 11/18/2019 12:00:00 AM EDT tablet 21 TAKE ONE TABLET BY MOUTH THREE TIMES A DAY NEEDED FOR MUSCLE SPASMS TAKE ONE TABLET BY MOUTH THREE TIMES A DAY NEEDED FOR MUSCLE SPASMS SOLD: 11/18/2019 [facility] 29 gauge x 1/2" 11/02/2019 12:00:00 AM EDT needle 150 USE DIRECTED UP TO 5 TIMES A DAY USE DIRECTED UP TO 5 TIMES A DAY SOLD: 11/02/2019 [facility] Insulin Pen Needle 29G X 12.7MM (BD ULTRA-FINE PEN NEEDLES) [id number] 10/28/2019 12:00:00 AM EDT active Type 2 diabetes mellitus with hyperglycemia, with long-term current use of insulin Use as directed. DIRECTED UP TO 5 TIMES A DAY [facility] Type 2 diabetes mellitus with hyperglyce starla, with long-term current use of insulin 20 mg 10/27/2019 12:00:00 AM EDT tablet 30 TAKE ONE TABLET BY MOUTH EVERY DAY IN THE MORNING TAKE ONE TABLET BY MOUTH EVERY DAY IN THE MORNING SOLD : 11/02/2019 [facility] 0.5 ML dulaglutide 3 MG/ML Auto-Injector [Trulicity] Trulicity 1.5 MG/0.5ML Subcutaneous Solution Pen-injector (dulaglutide) Trulicity 1.5 MG/0.5ML Subcutaneous Solution Pen-injector (dulaglutide) 10/04/2019 12:00:00 AM EDT aborted Type 2 diabetes mellitus with hyperglycemia, with long-term current use of insulin INJECT 1.5MG WEEKLY [facility] Type 2 diabetes mellitus with hyperglyce [...] (PROTONIX) 10/01/2019 12:00:00 AM EDT acti ve [facility] Losartan Potassium 50 MG Oral Tablet [place] Potassium 50 MG Oral Tablet (COZAAR) Losartan Potassium 50 MG Oral Tablet (COZAAR) 10/01/19 12:00:00 AM EDT aborted [facility] Terbinafine hydrochloride 10 MG/ML Topic al Cream SM Athletes Foot 1 % External Cream SM Athletes Foot 1 % External Cream 09/28/2019 12:00:00 AM EDT active [facility] Insulin Pen Needle 29G X 12.7MM (BD ULTRA-FINE PEN NEEDLES) [id number] 09/06/2019 12:00:00 AM EST aborted Type 2 diabetes mellitus with hyperglycemia, with long-term current use of insulin Use as directed. DIRECTED UP TO 5 TIMES A DAY [facility] Type 2 diabetes mellitus with hyperglyce starla, with long-term current use of insulin Ondansetron 4 MG Disintegrating Oral Tab let Ondansetron 4 MG Oral Tablet Disintegrating (ZOFRAN-ODT) Ondansetron 4 MG Oral Tablet Disintegrat ing (ZOFRAN-ODT) 09/04/2019 12:00:00 AM EST active [facility] 4 mg 09/04/2019 12:00:00 AM EST [...] EST suspended Terbinafine HCl 1 % eCW1 ([facility]) Terbinafine HCl 1 % Terbinafine HCl 1 % 08/27/2019 12:00:00 AM EST active Terbinafine HCl 1 % eCW1 ([facility]) Terbinafine HCl 1 % Terbinafine HCl 1 % 08/27/2019 12:00:00 AM EST active apply thick layer to groin eCW1 ([facility]) Terbinafine HCl 1 % Terbinafine HCl 1 % 08/27/2019 12:00:00 AM EST active Terbinafine HCl 1 % eCW1 ([facility]) Terbinafine HCl 1 % Terbinafine HCl 1 % 08/27/2019 12:00:00 AM EST active Terbinafine HCl 1 % eCW1 ([facility]) Terbinafine HCl 1 % Terbinafine HCl 1 % 08/27/2019 12:00:00 AM EST active Terbinafine HCl 1 % eCW1 ([facility]) Terbinafine hydrochloride 10 MG/ML Topical Cream Terbi nafine HCl 1 % Terbinafine HCl 1 % 08/27/2019 12:00:00 AM EST active apply thick layer to groin eCW1 ([facility]) 1 % 08/27/2019 12:00:00 AM EST cream 60 APPLY THICK LAYER TO GROIN THREE TIMES A DAY APPLY THICK LAYER TO GROIN THREE TIMES A DAY SOLD: 09/02/2019 [facility] Terbinafine HCl 1 % Terbinafine HCl 1 % 08/27/2019 12:00:00 AM EST active Terbinafine HCl 1 % eCW1 ([facility]) Terbinafine HCl 1 % Terbinafine HCl 1 % 08/27/2019 12:00:00 AM EST active Terbinafine HCl 1 % eCW1 ([facility]) Terbinafine HCl 1 % Terbinafine HCl 1 % 08/27/2019 12:00:00 AM EST active Terbinafine HCl 1 % eCW1 ([facility]) Terbinafine HCl 1 % Terbinafine HCl 1 % 08/27/2019 12:00:00 AM EST active apply thick layer to groin eCW1 ([facility]) Terbinafine HCl 1 % Terbinafine HCl 1 % 08/27/2019 12:00:00 AM EST active Terbinafine HCl 1 % eCW1 ([facility]) Terbinafine HCl 1 % Terbinafine HCl 1 % 08/27/2019 12:00:00 AM EST active Terbinafine HCl 1 % eCW1 ([facility]) Terbinafine HCl 1 % Terbinafine HCl 1 % 08/27/2019 12:00:00 AM EST active Terbinafine HCl 1 % eCW1 ([facility]) Terbinafine HCl 1 % Terbinafine HCl 1 % 08/27/2019 12:00:00 AM EST active Terbinafine HCl 1 % eCW1 ([facility]) Terbinafine HCl 1 % Terbinafine HCl 1 % 08/27/2019 12:00:00 AM EST active Terbinafine HCl 1 % eCW1 ([facility]) Terbinafine HCl 1 % Terbinafine HCl 1 % 08/27/2019 12:00:00 AM EST suspended Terbinafine HCl 1 % eCW1 ([facility]) 25 mcg (1,000 unit) 08/03/2019 12:00:00 AM [...] insulin Inject 1.5 mg once weekly. DX:E11.65 [facility] Type 2 diabetes mellitus with hyperglyce [...] of priming and titiration. Dx code: E11.65 [facility] Type 2 diabetes mellitus with hyperglyce [...] units with titration and priming. Dx: E11.65. [facility] Type 2 diabetes mellitus with hyperglyce starla, with long-term current use of insulin Cholecalciferol 1000 UNT Oral Tablet Vit olmedo D3 25 MCG (1000 UT) Oral Tablet (CHOLECALCIFEROL) Vitamin D3 25 MCG (1000 UT) Oral Tablet (CHOLECALCIFER OL) 07/28/2019 12:00:00 AM EST 3000 U Oral active Take 3 tablets by mouth daily [facility] Levothyroxine Sodium 0.125 MG Oral Table t Levothyroxine Sodium 125 MCG Oral Tablet (SYNTHROID, LEVOTHROID) Levothyroxine Sodium 125 MCG Oral Tablet (SYNTHROID, LEVOTHROID) 07/28/2019 12:00:00 AM EST 125 ug Oral active Other specified hypothyroidism Take 1 tablet by mouth daily [facility] Other specified hypothyroidism FreeStyle Shabbir 14 Day Sensor [id number] 07/28/2019 12:00:00 AM EST active Type 2 diabetes mellitus with hyperglyce starla, with long-term current use of insulin Use as directed. Change every 14 days. Dx: E11.65 [facility] Type 2 diabetes mellitus with hyperglyce [...] 07/26/2019 12:00:00 AM EST ORAL active MEDENT ([facility]) 20 mg 07/19/2019 12:00:00 AM EST tablet 30 TAKE ONE TABLET BY MOUTH EVERY MORNING TAKE ONE TABLET BY MOUTH EVERY MORNING SOLD: 07/30/2019 [facility] 20 mg 07/19/2019 12:00:00 AM EST tablet 30 TAKE ONE TABLET BY MOUTH EVERY MORNING TAKE ONE TABLET BY MOUTH EVERY MORNING SOLD: 10/01/2019 [facility] 20 mg 07/19/2019 12:00:00 AM EST tablet 30 TAKE ONE TABLET BY MOUTH EVERY MORNING TAKE ONE TABLET BY MOUTH EVERY MORNING SOLD: 09/02/2019 [facility] Hydrocortisone 25 MG/ML Topical Cream Hydrocortisone 07/14/2019 12:00:00 AM EST active MEDENT ( [facility], ) 17.5-3.13-1.6 gram 07/14/2019 12:00:00 AM EST recon soln [address] REDDY'S INSTRUCTIONS DIRECTED SEE DR REDDY'S INSTRUCTIONS SOLD: 07/14/2019 [facility] Suprep Bowel Prep Kit Suprep Bowel Prep Kit 07/14/2019 12:00:00 AM EST active MEDENT ([facility], ) Magnesium Hydroxide 80 MG/ML Oral Suspension Milk Of Magnesi a 07/14/2019 12:00:00 AM EST ORAL active M EDENT ([facility], ) 2.5 % 07/14/2019 12:00:00 AM EST cream with perineal bart licator 60 APPLY 0.5CC TO PERIANAL AREA THREE TIMES A DAY FOR 14 DAYS APPLY 0.5CC TO PERIANAL AREA THREE TIMES A DAY FOR 14 DAYS SOLD: 07/14/2019 [facility] pantoprazole 40 MG Delayed Release Oral Tablet Pantoprazole Sodium 07/08/2019 12:00:00 AM EST ORAL active M EDENT ([facility]) Levothyroxine Sodium 0.125 MG Oral Tablet Levothyroxine Sodi um 07/08/2019 12:00:00 AM EST ORAL active M EDENT ([facility]) 29 gauge x 1/2" 07/06/2019 12:00:00 AM [...] 29G X 12.7MM (BD ULTRA-FINE PEN NEEDLES) [id number] 07/02/2019 12:00:00 AM EST active Type 2 diabetes mellitus with hyperglycemia, with long-term current use of insulin Use as directed. DIRECTED UP TO 5 TIMES A DAY [facility] Type 2 diabetes mellitus with hyperglyce [...] 06/11/2019 12:00:00 AM EST ORAL completed MEDENT ([facility]) 3 ML insulin detemir [...] of priming and titiration. Dx code: E11.65 [facility] Type 2 diabetes mellitus with hyperglyce starla, with long-term current use of insulin 0.5 ML dulaglutide 3 MG/ML Auto-Injector Dulaglutide 1.5 MG/0.5ML Subcutaneous Solution Pen-injector (TRULICITY) Dulaglutide 1.5 MG/0.5ML Subcutaneous So lution Pen-injector (TRULICITY) 05/28/2019 12:00:00 AM EST aborted Type 2 diabetes mellitus with hyperglycemia, with long-term current use of insulin Inject 1.5 mg once weekly. DX:E11.65 [facility] Type 2 diabetes mellitus with hyperglyce [...] units with titration and priming. Dx: E11.65. [facility] Type 2 diabetes mellitus with hyperglyce [...] Gluc Sensor (FREESTYLE SHABBIR 14 DAY SENSOR) [facility] [id number] 03/10/2019 12:00:00 AM EDT abo rted Type 2 diabetes mellitus with hyperglycemia, with long-term current use of insulin U se as directed. Change every 14 days. [facility] Type 2 diabetes mellitus with hyperglyce [...] THREE TABLE TS BY MOUTH EVERY DAY [facility] 10 mg 11/11/2018 12:00:00 AM EDT [...] TAKE ONE TABLET BY MOUTH EVERY DAY [facility] Other specified hypothyroidism 29 gauge x 1/2" 09/18/2018 12:00:00 AM EDT needle 50 DIRECTED UP TO 5 TIMES A DAY DIRECTED UP TO 5 TIMES A DAY SOLD: 06/28/2019 [facility] ONETOUCH DELICA LANCETS 33G [facility] [id number] 06/17/2017 12:00:[address] aborted Type 2 diabetes idris itus with hyperglycemia, with long-term current use of insulin Use to test blood sugar up to 6 times da adeola. Dx: e11.65 [facility] Type 2 diabetes mellitus with hyperglyce starla, with long-term current use of insulin Insurance Providers Payer name Policy type / Coverage type Policy ID Covered green party ID Covered green party's relationship to patiño Policy Patiño Plan Information [facility] [id number] SP [id number] [facility] [place] [id number] S [id number] [place] [id number] SP [id number] [facility] [id number] SP [id number] [facility] I [id number] Self [id number] MEDICAID [id number] SP [id number] MEDICAID [id number] S [id number] MEDICAID [id number] SP [id number] [facility] EXCHANGE U [id number] Self [id number] ANSI-Not a Secondary Insurance [id number] ANSI-Not a Secondary Insurance [id number] [place] [employer] ([place]) [id number] Self [id number] [employer] (O) [id number] Self [id number] ANSI-Not a Secondary Insurance [id number] ANSI-Not a Secondary Insurance [id number] ANSI-Not a Secondary Insurance [id number] [place] [employer] (O) [id number] Self [id number] ANSI-Not a Secondary Insurance [id number] ANSI-Not a Secondary Insurance [id number] ANSI-Not a Secondary Insurance [id number] [place] [employer] (O) [id number] Self [id number] [place] [employer] (O) [id number] Self [id number] ANSI-Not a Secondary Insurance [id number] ANSI-Not a Secondary Insurance [id number] ANSI-Not a Secondary Insurance [id number] ANSI-Not a Secondary Insurance [id number] EXCELLUS H [id number] [facility] [id number] [place] EXCHANGE [id number] Liset 7 [id number] [place] MEDICAID [id number] Liset 7 [id number] [place] MEDICAID PI PI EXCELL[employer] BCBS [id number] ORe YND [id number] BCBS OF [place] 306/806 [id number] [place]2 [id number] Ghi FHP-(DO Not Use) Medigap Part B [id number] Self [id number] Bshmo ZFC,Yot,Yoy,ZFH,ZFP Medigap Part B [id number] Self [id number] [place] Medigap Part B [id number] Family Depend ent [id number] [place] Commercial [id number] Family Dependent [id number] SELF PAY ONLY [id number] SP [id number] [employer] BCBS Health Maintenance Organization (HMO) [id number] Family Dependent [id number] BCBS [place] PPO 302/307 [id number] [place] [id number] [employer] BCBS PI PI Ghi FHP-(DO Not Use) Medigap Part B [id number] Self [id number] Bshmo ZFC,Yot,Yoy,ZFH,ZFP Medigap Part B [id number] Self [id number] [place] Medigap Part B [id number] Family Depend ent [id number] [place] Commercial [id number] Family Dependent [id number] Ghi FHP-(DO Not Use) Medigap Part B [id number] Self [id number] Bshmo ZFC,Yot,Yoy,ZFH,ZFP Medigap Part B [id number] Self [id number] [place] Medigap Part B [id number] Family Depend ent [id number] [place] Commercial [id number] Family Dependent [id number] Ghi FHP-(DO Not Use) Medigap Part B [id number] Self [id number] Bshmo ZFC,Yot,Yoy,ZFH,ZFP Medigap Part B [id number] Self [id number] [place] Medigap Part B [id number] Family Depend ent [id number] BS [place] Commercial [id number] Family Dependent [id number] BCBS [place] PPO 302/307 [id number] WI2 [id number] EXCELLUS BCBS B [id number] P YND [id number] BCBS [place] PPO 302/307 [id number] WI2 [id number] [employer] BC[employer] Health Maintenance Organization (HMO) Family Dependent Ghi FHP-(DO Not Use) Medigap Part B Self Bshmo ZFC,Yot,Yoy,ZFH,ZFP Medigap Part B Self BS [place] Commercial Family Dependent BS [place] Commercial Family Dependent BCBS [place] PPO 302/307 [id number] WI2 [id number] EXCELLUS C [id number] Self [id number] BCBS [place] O [id number] U VY [id number] EXCELLUS BCBS P [id number] P KARINE [id number] SELF PAY 2 UNAVAILABLE 1 UNAVAILA BLE BC EXC PLANS 1 [id number] Problems, Conditions, and Diagnoses Code Display Name Description Problem Type Effective Dates Data Source(s) Thoracic aortic ectasia Thoracic aortic ectasia Proble m 12/03/2019 12:00:00 AM EDT MEDENT ([facility]) [id number] Obstructive sleep apnea syndrome Obstructive sle ep apnea syndrome Problem 11/02/2019 12:00:00 AM EDT MEDENT ([facility] NEETA sanchez) G47.33 [id number] LUCILA (obstructive sleep apnea) Problem 07/19/2019 12:00:00 AM EST eCW1 ([facility]) [id number] Preoperative cardiovascular examination Preoperative cardiovascular examination Problem 07/09/2019 12:00:00 AM EST MEDENT ([facility]) E55.9 Vitamin D deficiency, unspecified Vitamin D defi ciency, unspecified Diagnosis 07/28/2019 12:46:10 PM [facility] Surgeries/Procedures Procedure Description Date Indications Data Source(s) ECG ROUTINE ECG W/LEAST 12 LDS W/I&R 05/12/2020 12:00: 00 AM EST MED[facility] ([facility]) POCT HEMOGLOBIN A1C, DOCKED POCT HEMOGLOBIN A1C, DOCKED Routine 04/20/2020 12:00 PM EDT 04/20/2020 12:00:00 PM EDT [facility] POCT GLUCOSE, DOCKED POCT GLUCOSE, DOCKED Routine 04/20/2020 11:58 AM EDT 04/20/2020 11:58:00 AM [facility] MYOCARDIAL SPECT MULTIPLE STUDIES 01/24/2020 12:00:00 AM EDT MEDENT ([facility]) CV STRS TST XERS&/OR RX CONT ECG PHYS SI&R 01/24/2020 12:00:00 AM EDT [facility] ([facility]) ECG ROUTINE ECG W/LEAST 12 LDS W/I&R 12/03/2019 12:00: 00 AM EDT [facility] ([facility]) PHYSICIAN TELEPHONE EVALUATION 5-10 MIN 10/12/2019 12: 00:00 AM EDT eCW1 ([facility]) DESTROY BENIGN/PREMLG LESION 08/27/2019 12:00:00 AM ES T eCW1 ([facility]) POCT HEMOGLOBIN A1C, DOCKED POCT HEMOGLOBIN A1C, DOCKED Routine 07/28/2019 10:06 AM EST 07/28/2019 03:06:00 PM EST [facility] POCT GLUCOSE, DOCKED POCT GLUCOSE, DOCKED Routine 07/28/2019 9:58 AM EST 07/28/2019 02:58:00 PM [facility] ECG ROUTINE ECG W/LEAST 12 LDS W/I&R 07/09/2019 12:00: 00 AM EST [facility] ([facility]) ECHO TTHRC R-T 2D W/WOM-MODE COMPL SPEC&COLR DOP 06/08 12:00:00 AM EST [facility] ([facility]) Results ID Date Data Source [id number] 07/13/2020 01:35:00 PM EST [facility] Name Value Range Interpretation Code Description Data Renetta rce(s) Supporting Document(s) Respiratory pathogens identified [Type] in Nasopharynx by Probe and target amplification method SARS-CoV-2 (COVID 19) [facility] This lab was ordered by [facility] a nd reported by [facility]. ID Date Data Source [id number] 07/04/2020 12:00:00 AM EST [facility] Name Value Range Interpretation Code Description Data Renetta rce(s) Supporting Document(s) Carestart Rapid COVID Antigen Test [facility] This lab was reported by [facility] Isauro hernandez. ID Date Data Source [id number] 06/04/2020 03:54:00 PM EST [facility] Name Value Range Interpretation Code Description Data Renetta rce(s) Supporting Document(s) SARS-CoV-2 (COVID 19) [facility] This lab was ordered by [facility] a nd reported by [facility]. ID Date Data Source CBC with Differential 05/24/2020 12:00:00 AM EST eCW1 ([facility]) Name Value Range Interpretation Code Description Data Renetta rce(s) Supporting Document(s) 5.3 4.0-10.0 WHITE BLOOD COUNT eCW1 ([facility]) 4.70 4.30-6.10 RED BLOOD COUNT eCW1 ([facility]) 14.2 13.5-17.5 HEMOGLOBIN eCW1 ([facility]) 33.8 32.0-36.5 MEAN CORPUSCULAR HGB CONC eCW1 ([facility]) 42.0 42.0-52.0 HEMATOCRIT eCW1 ([facility]) 30.2 27.0-33.0 MEAN CORPUSCULAR HEMOGLOB IN eCW1 ([facility]) 89.4 80.0-96.0 MEAN CORPUSCULAR VOLUME e CW1 ([facility]) 8.8 0.0-5.0 MONO % eCW1 ([facility]) 12.5 11.5-14.5 RED CELL DISTRIBUTION WID TH eCW1 ([facility]) 51.8 36.0-66.0 NEUTROPHILS % eCW1 ([facility]) 34.5 24.0-44.0 LYMPH % eCW1 ([facility]) 184 150-450 PLATELET COUNT, AUTOMATED eCW1 ([facility]) 2.8 1.5-8.5 NEUTROPHILS # eCW1 ([facility]) 0.9 0.0-1.0 BASO % eCW1 ([facility]) 0.5 0.0-0.8 MONO # eCW1 ([facility]) 3.6 0.0-3.0 EOS % eCW1 ([facility]) 1.8 1.5-5.0 LYMPH # eCW1 ([facility]) 0.1 0.0-0.2 BASO # eCW1 ([facility]) 0.2 0.0-0.5 EOS # eCW1 ([facility]) ID Date Data Source [id number] 05/24/2020 12:00:00 AM EST eCW1 ([facility]) Name Value Range Interpretation Code Description Data Renetta rce(s) Supporting Document(s) Hemoglobin A1c/Hemoglobin.total in Blood 6.7 HEMOGLOBIN A1c eCW1 ([facility]) ID Date Data Source LIPID PANEL (CARDIAC RISK) 05/24/2020 12:00:00 AM EST eCW1 ( [facility]) Name Value Range Interpretation Code Description Data Renetta rce(s) Supporting Document(s) Triglyceride [Mass/volume] in Serum or Plasma by calculation 84 <150 TRIGLYCERIDES LEVEL eCW1 ([facility]) Cholesterol in HDL [Moles/volume] in Serum or Plasma 35 >40 HDL CHOLESTEROL eCW1 ([facility]) Cholesterol [Moles/volume] in Serum or Plasma 119 <200 CHOLESTEROL LEVEL eCW1 ([facility]) 84 NON-HDL-C eCW1 ([facility]) Cholesterol in LDL [Mass/volume] in Serum or Plasma by calculation 67 <100 LDL CHOLESTEROL eCW1 ([facility]) 3.400 <5 CHOLESTEROL RISK RATIO eCW1 ([facility]) ID Date Data Source FREE T4 & TSH PANEL 05/24/2020 12:00:00 AM EST eCW1 ([facility]) Name Value Range Interpretation Code Description Data Renetta rce(s) Supporting Document(s) 2.800 0.358-3.740 eCW1 ([facility]) 1.02 0.76-1.46 eCW1 ([facility]) ID Date Data Source Comprehensive Metabolic Profile (CMP) 05/24/2020 12:00:00 AM EST eCW1 ([facility]) Name Value Range Interpretation Code Description Data Renetta rce(s) Supporting Document(s) 109 70-100 GLUCOSE, FASTING eCW1 ([facility]) 14 7-18 BLOOD UREA NITROGEN eCW1 ([facility]) > 60.0 >56 GLOMERULAR FILTRATION RATE eCW 1 ([facility]) 110 98-107 CHLORIDE LEVEL eCW1 ([facility]) 1.00 0.70-1.30 CREATININE FOR GFR eCW1 ([facility]) 4.1 3.5-5.1 POTASSIUM SERUM eCW1 ([facility]) 143 136-145 SODIUM LEVEL eCW1 ([facility]) 8.6 8.5-10.1 CALCIUM LEVEL eCW1 ([facility]) 10 7-37 AST/SGOT eCW1 ([facility]) 28 21-32 CARBON DIOXIDE LEVEL eCW1 ([facility]) 27 12-78 ALT/SGPT eCW1 ([facility]) 3.8 3.2-5.2 ALBUMIN eCW1 ([facility]) 1.4 ALBUMIN/GLOBULIN RATIO eCW1 ([facility]) 0.7 0.2-1.0 BILIRUBIN,TOTAL eCW1 ([facility]) 6.6 6.4-8.2 TOTAL PROTEIN eCW1 ([facility]) 93 45-117 ALKALINE PHOSPHATASE eCW1 ([facility]) ID Date Data Source [id number] 04/20/2020 04:48:22 PM EDT [facility] Name Value Range Interpretation Code Description Data Renetta rce(s) Supporting Document(s) Progress Note [facility] MPNWFr6kNgRQSoUb53/XOLdvZAXdz7WbZNalYJa7FYiaYBArZ4PvVZT5iD6zFQK5BGhFGmQrVtOiWFC7 lbm [file] ICAgICAgICAgICAgICAgICAgICAgICAgICAgICAgIC AgICAgICAgICAgICAgICAgICAgICAgICAgICAgICAgDQogICAgICAgICAgICAgICAgICAgICAgICAgIC AgICAgICAgICAgICAgICAgICAgICAgICAgICAgICAgICAgICAgICAgICAgICAgICAgICAgICAgICAgIC AgICAgICAgICAgICAgDQogICAgICAgICAgICAgICAg ICAgICAgICAgICAgICAgICAgICAgICAgICAgICAgICAgICAgICAgICAgICAgICAgICAgICAgICAgICAg ICAgICAgICAgICAgICAgICAgICAgICAgDQogICAgICAgICAgICAgICAgICAgICAgICAgICAgICAgICAg ICAgICAgICAgICAgICAgICAgICAgICAgICAgICAgIC AgICAgICAgICAgICAgICAgICAgICAgICAgICAgICAgICAgDQogICAgICAgICAgICAgICAgICAgICAgIC AgICAgICAgICAgICAgICAgICAgICAgICAgICAgICAgICAgICAgICAgICAgICAgICAgICAgICAgICAgIC AgICAgICAgICAgICAgICAgDQogICAgICAgICAgICAg ICAgICAgICAgICAgICAgICAgICAgICAgICAgICAgICAgICAgICAgICAgICAgICAgICAgICAgICAgICAg ICAgICAgICAgICAgICAgICAgICAgICAgICAgDQogICAgICAgICAgICAgICAgICAgICAgICAgICAgICAg ICAgICAgICAgICAgICAgICAgICAgICAgICAgICAgIC AgICAgICAgICAgICAgICAgICAgICAgICAgICAgICAgICAgICAgDQogICAgICAgICAgICAgICAgICAgIC AgICAgICAgICAgICAgICAgICAgICAgICAgICAgICAgICAgICAgICAgICAgICAgICAgICAgICAgICAgIC AgICAgICAgICAgICAgICAgICAgDQogICAgICAgICAg ICAgICAgICAgICAgICAgICAgICAgICAgICAgICAgICAgICAgICAgICAgICAgICAgICAgICAgICAgICAg ICAgICAgICAgICAgICAgICAgICAgICAgICAgICAgDQogICAgICAgICAgICAgICAgICAgICAgICAgICAg ICAgICAgICAgICAgICAgICAgICAgICAgICAgICAgIC UqRBRkWQQtHCBlDJQiUSKaIDJcYGKpNXXqIKCfHTTlPFPkKEBsWUHrGXh4L1wcVZShDNRmOU9zONo8Ms 8+WYxMAzJyHRE6viOtjB7FLS7ew0NgZWwbLMNgi1BiWAf5IW2WPMYeXFzoVV1IPJfizq8WYITtUHDtkB QDa7icHkQiJXO9WXBkGrhtER0FQYLyR3sqheTuTIWy MFTMSWtdHAUDEVkfKKVZPRQqSFGyKmAyStEeSVEjZMKbFEXRHVR5PTVoTuHeAOZhIXAoLwNqJUSVPE0I IjSjU3IexV95RJfXEf4+HOzfpjUiEpyOHjR3HSWag3PrQCf9FC9KKUFtYoxoa6ZyDweuYMXARDepTU8N YKV7LTL2XHGlYg9UVJWbD835tgLkHJ4ZDp5FIhDpKY 0kfm6NCaoxPFZwFmrTIbp3UDhcWK9EfQDbZUwOkt0nwsTjtkDHr9ObmuGzcKZLFW9pNCoxNFMADBU1jp mqpNjkNYXiHWExWPDxOEAoPlYrKMKkUXfeKCQGSSvSIvDiK4Tfn9QbKsR6WUNqUiFeNPbiYBUsZpI4JK 33wIdtHQ0ZHPCvZCCtQU83ZJT5APUvZn5MOq2BNxEb KX2rqe1CVAVcLGFqKqyZGgs7IKdgHX4CsMTdQ8MmiNKts0sPYgEqH9CMPGN3GNLvCm0TFODzHrZgRVDm KXypPI1tVTDtDJRTkGnbtyR8NE5KFV2dvcNzGB5JHeUpXc2eZm7ZDnKcS6TaJ5WpHGQvHOIFAMbyBJ6X AWzdQO7mED4Hr2SItGYmcN7xjz7ICQFaEAZoInjuqr 8BPdpfY2P6tMteCUVsFrtnFUYEARhhKK9CHUGpOFG1ORMwUrZuYEDBNiVkY75aGA0OZ8Nde81vAyU1BU UrVmRlOXpmVZ13dFhsvsEakNCroIdnOF7NCh9+DQplbmRvYmoNCnhyZWYNCjAgNDENCjAwMDAwMDAwMD ObCeM2RjWnOx3OYHCdSLZzDKUzPnBuKPBoVZFyBVtj YWLtWCB9IBkyLPCwMPEbXI9OEyZyTHMtUNy5EVkaNCImJXDxur0BYWJqOTCyLQR3EqXiACJxYOHyOYxl COSpKGW1TKv1VTUuPMJcSU9NYsKvOFLbLHI3IRizBIWpDWNmot6ORCRgNSPtTEY8PcUdWDMdUULxGBvp IYDpBMO2XSvhTJIjJBZsWF3MDeDyCVKhVAKcICRpHU YyLZOjud6GXMJvCFWiHAB7UDRxLRVsYCOoFRepJPFdKGE4CGA2LJVpIBPtZS9XMlDdXADcHWX2IxVtVT HpMSNyas4IMMEqEPArEGPaFdUeLDFpJXRqBRihAJEgELF2PmHiTNVsWKUcCF8JFyPmYPCxDiJ4QaokGZ FyWEEfcq5ZLUWiBDYeDNV1WCNhUOYxAKQiEXzxNCPn ZAUvKBVtAEVdEHOlHY6CBiBjAZJlArCjNGWbQYXnVPCpar9BWMEiPFOgSosmZDAtVYAeRNXhIRhxVSBl QDL8RHK8POUbLQOtBQ3NVwLaVIMyEmj4TBXaOIIxLRDtgu5YIYFzYHYrGFL3BIWnAYApZGUyDUfeHIEz DAJpFnYnGNLwXOWrYW0JDvRxFCIaEtZ4FMqvXVJlNK Inez2CQRImIIFkOJMmGFQbAFSvNIVeDEtmGNFaKQNjJVmaBEPpFKUeEK0XNvRdNEXbNgBsFZMlGXGyKS Jnyo4PRZNxYAScKmV5MOBzEBVzYEHjAUwqVVQiPJJmMIEsOJOpLMZhJS1ICvFmVCOpUTFbVqJaNRCyRC Mjzf1IUNJoWXC2QJY3RPLxYECbNIGeJGvxUAMeIJU7 VXx3CRFcOZWjZV1HIfZvVLKjODA7ZVArFEXhFGTrxz6LPMDmCZE3KMJ1WINzOXUgUZQoLNxfALVfIZC6 KFguIPBnDKMiSI5ZQkXyCSKsFXWwOONeDQFzYZHivy5RKXLdEGQ4AoN2JqSdJSQaFFGaLVjsCCXmTFQ5 BZH6PYUqIZNjWN6XTcGeXSSeUKvzNsCbIXGnFCUtwo 0EIPRpOWN6LVU1TiRwMYMeYNJvDBx9nrZlsBFhEJc1SB4VF5DeteNuWKUFRe7Eh121ESCzMAKnUh5XY0 ynAt7hOSQgYXVARy2JPMi2TAThIPoaRRVuELL2ZhW0WcI9XRUfOYu6JCK7YxHlUGY+LUraQUO4OJB6YS ScRxWcZcjiDYcmScY5MRdhULc4YvK1Iu4nBWWORc9+FSaumKYntMpxHUNCIkO5MCL3KEdaKFBKFq5M ID Date Data Source [id number] 04/20/2020 12:13:55 PM EDT [facility] Name Value Range Interpretation Code Description Data Renetta rce(s) Supporting Document(s) Hemoglobin A1c/Hemoglobin.total in Blood 8.5 % 4.0-6.0 H [facility] Glucose mean value [Mass/volume] in Blood Estimated fr om glycated hemoglobin 197 mg/dL <126 H [facility] ID Date Data Source [id number] 04/20/2020 12:09:45 PM EDT [facility] Name Value Range Interpretation Code Description Data Renetta rce(s) Supporting Document(s) Glucose [Mass/volume] in Capillary blood by Glucometer 303 mg/dL 70- 140 [facility] ID Date Data Source [id number] 04/20/2020 11:24:00 AM EDT [facility] ([facility]) Name Value Range Interpretation Code Description Data Renetta rce(s) Supporting Document(s) Hemoglobin A1c/Hemoglobin.total in Blood 8.5 [facility] ([facility]) ID Date Data Source GASTROINTESTINAL GI PANEL (GIPANEL) 11/24/2019 12:00:00 AM EDT eCW1 ([facility]) Name Value Range Interpretation Code Description Data Renetta rce(s) Supporting Document(s) This Gastrointestinal PCR Panel detects the following bacteria, GASTROINTESTINAL (GI) PANEL eCW1 ([facility]) ID Date Data Source [id number] 11/18/2019 03:32:00 PM EDT [facility] ([facility]) Name Value Range Interpretation Code Description Data Renetta rce(s) Supporting Document(s) Albumin [Mass/volume] in Serum or Plasma 3.8 [facility] ([facility]) Alanine aminotransferase [Enzymatic activity/volume] in Serum or Pl asma 32 [facility] ([facility]) Carbon dioxide, total [Moles/volume] in Serum or Plasma 25 [facility] ([facility]) Calcium [Mass/volume] in Serum or Plasma 8.4 [facility] ([facility]) Chloride [Moles/volume] in Serum or Plasma 110 [facility] ([facility]) Potassium [Moles/volume] in Serum or Plasma 3.9 [facility] ([facility]) Alkaline phosphatase [Enzymatic activity/volume] in Serum or Plasma 1 09 [facility] ([facility]) Protein [Mass/volume] in Serum or Plasma 6.6 [facility] ([facility]) Aspartate aminotransferase [Enzymatic activity/volume] in Serum or Plasma 11 [facility] ([facility]) Glucose 120 70-100 [facility] Urea nitrogen [Mass/volume] in Serum or Plasma 18 [facility] ([facility]) Sodium 143 [facility] Creatinine For GFR 0.82 [facility] ([facility]) ID Date Data Source [id number] 11/18/2019 03:32:00 PM EDT [facility] ([facility]) Name Value Range Interpretation Code Description Data Renetta rce(s) Supporting Document(s) White Blood Count 5.8 4.0-10.0 [facility] ([facility]) Red Blood Count 4.85 4.30-6.10 [facility] [facility]) Hemoglobin 15.0 MEDENT ([facility]) Platelets 179 150-450 MED[facility] ([facility]) Hematocrit 41.6 MEDENT ([facility]) ID Date Data Source [id number] 10/28/2019 11:19:24 AM EDT [facility] Hospital Name Value Range Interpretation Code Description Data Renetta rce(s) Supporting Document(s) Progress Note [facility] AAXOVy6eGcRXExHx22/RLDviNQNel2RhROkrIUw6SZzpPJVrL0OjKQO2pV9vWAH8ZDyBLkPbUhBaWNIf [facility] SnKvqNLiKwNVWbHirGCiCtPBckFdymiLIzME5MmLX3JJOzT18gAKDiAEAkX0WvTBL9NcG+Ns6TDPZllJ ZxKG7XEvfM0X4hk7uHPw3k9K2ZPiWqbG1kg6qlc5GDjABmp2lvGGqCbsv4KSGkW06u8sB1zx81Og9Fou w6WKAx5ZZtkKqvYEGzq599XoSCxjk3y1wHxwno1ER/ 4rsZr5KyaE/+tOt2yZe84+qlt1o5hU3ATZuTee+e+/zKzh681GPBRRASfy3l2ctcRSsjulVT9D70NaiX 3NquT2CSh39mb0sUM0/OLt4o1/Mdz4+coj9Icy+l00315biv3hQALBQ+768hhcSn8e53YTFGLjVnxgxv 0murk/w98aMcjoG8Pp/CFjmzsjguQngnxuhyFgVw03 Np40UhafDQZh13aWSwrFXz6fx4Shi66R7RW+keEm5lj7N7PooUTM7Phmq2l37OWnp2KUtyTHSWnt4fiU /+IQnqXUiU27FKZXmbTRuE0KT8LOm15vB+aty2rxxqxdTpNt/pxgoIYx5zbSq9YEZUFvBWLP5HpkP72K 5SStDlUrwDrQ/c2Dp4E+SdY18sVpq+uCbTR/3+NJlZ 5B2PkAat51hsGE5eIc/pbfIa8lSJBNCwppl9aZULiipYo15g8VcVvaIaY1NUkXni1iOKNncGXCFg+mxh ggi70hK/DxF29vXoFv9xIYz6GBRfS5fE2CguHNtbE04q/94DkUOFLaKjzLz466xI7skcpoVU06n4bSw9 nhwYZ0ho6Wk6Fk0pg+k06f/JSyI1wlSHGdaGT9sPLI lRoMan0iP8XudGFro8MICzLxZM9GYUWnqkilJnKyKyFeAw2scDQpSMUrQhh58nfGW0BKc630hX6J3xS5 /Ij7zdfL/sPc/rWQxXqtjEyovi3KCybSAxh/K64PKSq+bVNMVj1Ky36pmVtC0y9jGeY/qr4nObSZUBG4 OzMM8OPVqG/O7g/F4afV6mIS9BC66BZETqDQ7F0S15 Dgges2y2QdvA69RxmfNX7jJRmkUXmftu3kKkSjUd1oMnPyUt6D1w9gWmYDBqABruJuEwUMLd14NP5DQ6 /14auX25AO72bddAwV3VRbUj0Q+U8i0wRANMBDf0SMdGxgdgLvnlbWKrPapkoPKTbnl0XsDRWXqyP2ec J+umr3TlUbt4KiMgeHCcbvfMTRBybloiA+SihgEwvJ eFw/yhZKoZpGyqOV2NWyYFPCxqt9g1Lyf0/DDBUBzneZaju/fqWh4HIcVekYpbKDqGYb8/WCjyEBVHGD dS1yKJAq3Jy2/384UUAvNOeDx66dEpqdVx1kc+/VfHea//9h/NnkA0ggwaEunEwp84XLUnPuZNaPZU66 n35iW08H5S9Pm7aK53lgF4gBGL7gs8B3Eh6uvuJGS2 [file] long term+/Iw7JxGUbDiKAm2vuuQMjo7mh8p+HCeoIfpkmsbN72Qd2YfaFM6oyvWxuBgU+LkSZ9GSQbfv6Atg [file] ICAgICAgICAgICAgICAgICAgICAgICAgICAgICAgIC AgICAgICAgICAgICAgICAgICAgICAgICAgICAgDQogICAgICAgICAgICAgICAgICAgICAgICAgICAgIC AgICAgICAgICAgICAgICAgICAgICAgICAgICAgICAgICAgICAgICAgICAgICAgICAgICAgICAgICAgIC AgICAgICAgICAgDQogICAgICAgICAgICAgICAgICAg ICAgICAgICAgICAgICAgICAgICAgICAgICAgICAgICAgICAgICAgICAgICAgICAgICAgICAgICAgICAg ICAgICAgICAgICAgICAgICAgICAgDQogICAgICAgICAgICAgICAgICAgICAgICAgICAgICAgICAgICAg ICAgICAgICAgICAgICAgICAgICAgICAgICAgICAgIC AgICAgICAgICAgICAgICAgICAgICAgICAgICAgICAgDQogICAgICAgICAgICAgICAgICAgICAgICAgIC AgICAgICAgICAgICAgICAgICAgICAgICAgICAgICAgICAgICAgICAgICAgICAgICAgICAgICAgICAgIC AgICAgICAgICAgICAgDQogICAgICAgICAgICAgICAg ICAgICAgICAgICAgICAgICAgICAgICAgICAgICAgICAgICAgICAgICAgICAgICAgICAgICAgICAgICAg ICAgICAgICAgICAgICAgICAgICAgICAgDQogICAgICAgICAgICAgICAgICAgICAgICAgICAgICAgICAg ICAgICAgICAgICAgICAgICAgICAgICAgICAgICAgIC AgICAgICAgICAgICAgICAgICAgICAgICAgICAgICAgICAgDQogICAgICAgICAgICAgICAgICAgICAgIC AgICAgICAgICAgICAgICAgICAgICAgICAgICAgICAgICAgICAgICAgICAgICAgICAgICAgICAgICAgIC AgICAgICAgICAgICAgICAgDQogICAgICAgICAgICAg ICAgICAgICAgICAgICAgICAgICAgICAgICAgICAgICAgICAgICAgICAgICAgICAgICAgICAgICAgICAg ICAgICAgICAgICAgICAgICAgICAgICAgICAgDQogICAgICAgICAgICAgICAgICAgICAgICAgICAgICAg ICAgICAgICAgICAgICAgICAgICAgICAgICAgICAgIC LwHXNiJVNgEWPrBZQhRPNgLKKgOJXlGJWnQRCaNWTrUKWjALEpEIn6R5ulGAOlGGMsDS8eRZb2Rm0+DQ nZCoZvYZL5rqPbgK0TLT7kx9JpYWvoBFMvr7LyYUp5SI0KCPJaHLjoBJ7TVTyiza0WTMQrKRRjuUXLp3 kbFzYcBAN6ZVJbIwedDU2WULXyR8ctkzLsQDNbROQC OXbcDPRLOGzvDELOURBmFXYuMnBdWiLsRTWqXNSoEDYMJKN7BYIdJrTyFTZfRPAtXS9BJWTuQ650fpIv TP3FIp2KSmKhTB6ivv6PTnJyOQZwMwlKZlg3FKmpQA7UcEAdhMSiPpAoYDBQJsFnP5wuw4RcZcosHHLB MGjfJV5Tl7SuzUFjXJh+Re1KKI7pj9YdGAxfLbBnOZ 6rup2ULVxWVgDyA7AnpVszRGXnj5omDHHcDV3inEUyCQC3IWNhpelhpLjtGUHsNROenGAnPDHHRUFesU C5DyCjLjLhWrKjQNI3CrMbRT9bRZzfOR6OQCT1TWyqIKCeDCFxJ3wNYuAwSRBmKxTxfVdkQC5WMhLoA7 BhcmVudCAzNiAwIFINCj4+LNvqzfRnQetYHrU0IDUs b9QsRMx4RW6WZTCuAZsuHP7OGAZgwQ3pGFlqHC4IFvCiZMUqAEIWRwYlG44xmUWrABg6H4McCmWoNVQv RmlsZXMgPDwvTmFtZXMgWyBdDQogID4+ID4+AXjlID5SPSwartRcWPBtZs9PFXYyMQPnXI4kVMZzDNTs S3V1dQjyMBAVHjJdE5rsakjxYU0nPQRwC185eKhyjv YyUZE3ZKVpMr8MKUHhSBN7XWMbaDEuDuMzOHWHDMfaQM8DlGDoHBD1pA6fDQdqYWRtLZOwP8rVOzAfqR ckBE27jPmzynYrjXPjKSh+Dy4NEQ9ld5UtQPb8sqIjFTclTPD3LJlzDKLgIAAuYDThYHS7AEW0EBGSLa HeEGZwTRGaRGdvFNYrAKKzuz1MIUXsZNI1NQzyJFQw IAJgOAQgRYgvDQIwMIHtMsLdIOAiIBQvQU9RXiYlZFJqDLZsQYbsLOAkDMMtzn7WYGFiRFPwVuziPxCc XLMpJKOmTLzsYTPjGKSwYVD9VZPhRMXrDK9EGhOrNXWqCDW4PDtySJOvLULtez8ONEYjZDKbAwV2OqPq JSIoGBBqIWtsWHCjFAA9LHI6SLFiXDTyLZ8MLwPyEA WhUIakBwNxIBJaMVSwcu3QMIGfPSLdNjwkSqFjIHNrILBdQHynPMGrPPIhFEZoTGFkOINzJG8CZuXcRH NpLTS0YVOnIUAsWSRubp0KHVLgUKMtFqCcPJQuSPBiVGXeLUvwLFTuBCB8UslsEDVlWSAyGK7IMjPmOR PxBCt9DERlLUVfXJGryk6MJARgLZPoPpV5KQUmYHIj SLVsPBoqDMGtQDKmLqiuSCCiQOWhCT4REyElLZBuYxKkXpXvPHBgVDArrr8QXNYsSYKwUDDwTuXqAZVr HWLtMCnzQOFgIQK7KHh0MUKuFDOiUQ4ELhBjMOKgUmA6LQEkSWGuSUVlxw7WLVSiPDYyWVb1VsLdRKBp JCVeNGbwRLNvRQC6XXA7IDHwGJGbZA2HYsPyTYTiXv lnRopxJPJyHXYzzq8DEZUxZPFtMlPfVtHrYSJxXQUrWSstAYZwEFK8AiM9LJLoTEOjRD1DAtOxOLEvHy m2VYSuQGIgJMLgsp8NCWDnHKTnFFW7GWBiZKRkVLEuRKpfQXZuLQV8IQOeBZMuMHKtVL5VYcLwEYAxFz r1YPUzGUFoILArhl2BWZUvWRE4SOStWAPyRTNbFPMv BTlySOObVQRbMeW1GEGtMMTpBJ9PGpRkYJKwYTA8FCXkKIMhZTHtge9UGAQuURG4UYZaEdLdGXMcMIHa LLfyWJYcCEExBgv9IRXoYYIaRK2IHwMaVHUeDNO1UooxHHVrLPIybs0RKEVtKMV4MgZzTUFaTUVjDYZm RDs5wtGggGAlOTr6BQ5QN9ElvrOuQmhDWg7Ly203ZK V0RQGkNh6KE7muPu3uPJOiSOFSAl4EPTl6BoWxRFClWNYsJATqK9G3P7F4DHOjGlCsPdCmM4HdTDH+ID gmOVGfQXInEoEiNCU2CzfnUPY6BSGnEAFyFOIfZEOcKl7gPPWLFd1+LEezyOCcpCdrTLOMDdFyFoI6AF afDOAJIo7H ID Date Data Source [id number] 07/28/2019 12:48:26 PM [facility] Hospital Name Value Range Interpretation Code Description Data Renetta rce(s) Supporting Document(s) Progress Note [facility] BCICDm9aErZZMbWh47/QDTweHFIac9CfIQbmDEr8AJkvGDBdW6McCHD4yH1gHFE3TKkWJnVzHbIeORUq lbm [file] ICAgICAgICAgICAgICAgICAgICAgICAgICAgICAgICAgICAgICAgICAgICAgICAgICAgICAgICAgDQog ICAgICAgICAgICAgICAgICAgICAgICAgICAgICAgIC AgICAgICAgICAgICAgICAgICAgICAgICAgICAgICAgICAgICAgICAgICAgICAgICAgICAgICAgICAgIC AgICAgICAgDQogICAgICAgICAgICAgICAgICAgICAgICAgICAgICAgICAgICAgICAgICAgICAgICAgIC AgICAgICAgICAgICAgICAgICAgICAgICAgICAgICAg ICAgICAgICAgICAgICAgICAgDQogICAgICAgICAgICAgICAgICAgICAgICAgICAgICAgICAgICAgICAg ICAgICAgICAgICAgICAgICAgICAgICAgICAgICAgICAgICAgICAgICAgICAgICAgICAgICAgICAgICAg DQogICAgICAgICAgICAgICAgICAgICAgICAgICAgIC AgICAgICAgICAgICAgICAgICAgICAgICAgICAgICAgICAgICAgICAgICAgICAgICAgICAgICAgICAgIC AgICAgICAgICAgDQogICAgICAgICAgICAgICAgICAgICAgICAgICAgICAgICAgICAgICAgICAgICAgIC AgICAgICAgICAgICAgICAgICAgICAgICAgICAgICAg ICAgICAgICAgICAgICAgICAgICAgDQogICAgICAgICAgICAgICAgICAgICAgICAgICAgICAgICAgICAg ICAgICAgICAgICAgICAgICAgICAgICAgICAgICAgICAgICAgICAgICAgICAgICAgICAgICAgICAgICAg ICAgDQogICAgICAgICAgICAgICAgICAgICAgICAgIC AgICAgICAgICAgICAgICAgICAgICAgICAgICAgICAgICAgICAgICAgICAgICAgICAgICAgICAgICAgIC AgICAgICAgICAgICAgDQogICAgICAgICAgICAgICAgICAgICAgICAgICAgICAgICAgICAgICAgICAgIC AgICAgICAgICAgICAgICAgICAgICAgICAgICAgICAg ICAgICAgICAgICAgICAgICAgICAgICAgDQogICAgICAgICAgICAgICAgICAgICAgICAgICAgICAgICAg ICAgICAgICAgICAgICAgICAgICAgICAgICAgICAgICAgICAgICAgICAgICAgICAgICAgICAgICAgICAg KTGkCCHdZLh0X0boFJWfCIQcVT9tUZj2Jl0+DQoNCm TyTBG1jbRinX0CLJ1is7FzXXrgTDNtj9FxOMd0OV2KQXOcARkmIK3HXBuqfx2JTYArTYJtdUNAb6wbPw RcIKZ1IDSbKgrjCY9QEPWeO4dzftGmCPHyCOWWJGveIDBHDSfmHCNOHNVcABFtFdCuLuZlIFPoOUCdDN THHRD4VTRiMdKaCHNiUWAqPhZoFSCIZN6DQkBvP3Rm oR03VGmDZm2+LDvoiyIsAqsDXeWqTNLvh4NfJHs3PM6VPPLmOjoch0JqAPSfUIMCMGawJJ9XWWK0HKHd TXQwTj6RHANbN670jnWwEV1RGc0EPkIgTP0lvq4APTNzJDGuRwjFAwj2WIfjVR3FaKTzTBkEvo4aomBx ymNBf1SewxWriPNEDA7vMHfrNDSSTPL9slzjiWxuXP MgOGEzNL9zKj5sWTWnUAP6JvNrSRAMOW7UHXLgNPJkgQKtXJLcCXXDSG2FAChzPNA3GMFlbuMiyOJbWA laDZ4NFSVhkrFmHENsBPFABGq+Ie8SPC6bf7KdLMe3XNElMH3uxn0ODMvEQqRrP7Z3cKFpD6H1ZZkwJy 6LBHPeAGOgNBYqZHUPYGpoHZ8WMU4npaD4XU0MsFYm NMUsFAEszGTsHBc5T86yxWMpJCdqAS7ORQB+Cristina+Pa1UGQGaRTVkITRpIhZnEQXILwTgJ6JrF7UEq7Xy C8DpXA71xHlnrtIzSNxmYN8BKD1xSPWlWYJCDB9NeTOkqC6ihpA6GxOrBPFDUeBhQ98trYReJSLtQTGi WKSwOs0MDMFiL2AiqaPhhKgqntCbMEBfGPCTWB0FVN etfnNzdHUhpCqnRH94lZmjOV8KXl5WNqPfQV2mqj3UmRCfLa3VPLW7YR5DYDZyEHMyVNMdAUW0RNCqIf RpWZfoXFHbQYQrTCZ7RQVmEGOyCI4VPdVyWJLhQKI2DAGyBQEzQFCjkp9KJMVoQGI6SkS4ViHrJATxDV OwZVrzCYYqKOImIUK7FATtNKOaMX5MSoYgSECeTZU5 WSmrTUZlWNMbqc5XASXkWXQpHPXoFtXeYFTkMXXxDIgvMZBwIQG0YIodLQGlKREtQL8SOxClUPJbJYIr LVcrBCOgUXQefo5HIVIiYUKyCOOeEwXwFHNiUUDkIZzzSRRvSIV4RZF8XVRoCMQkSF2BBkKsJXMfSHO4 ZmjmDHPxDRRseq5ONFIoRYVjLGa8QrJhUEGkNNSfQS ksYLSmGYN7Qwe6EYTaRHEmOG6IXnXaMBBxMCT2GGCxQZZxYALkym1WENPlWSMeXkD7NOZzCFDdBYIkRG mySUDgMFZ0UrnxWWYzHVGuWF0POgKjGTRfCuZ1VBCvMGYmYAKtuw0VTSFtGLXlNEm7OxWvVDYvSMPhMY hyQAYbQSO3UJK7ANQwDEDeHW0XZjHkPBKcKzRcDEVp LNCnOTOtrt4CYABdGPRzOrB2KbQqUFZfZQDhMXgwWTOaCPT1Tga6IFBaSRTxGA2BWyVkRAFaCgm7HXtu WDSrVWDhxd9DVPShTPRnVsf0PSQoIGQeBIOcLMbeBGUzZOL0WFQ3FTLeCAYiGC8SXyMiUDKcCrhrARfh GDQsSZUkml3CEWUuROSaBVF9AODyJMTjUNDjRYtnNO HjZYU2XIi7FUAnHAQcAG7SJuKkQZKiYHS9EAgwYENwGBWsof1UTKQnGEA4SJEhCnNdJPOaRHTqDRjiOX XuECWcIUNnZMHbJIWaFQ9GGmZqFBLvQAQ0FSFvQWAhVHIxdi4NHBWjBQV0SAwyMpFgDZOoLAOcZBtyAF AxIKBbPeqtTJRxLJKuOQ7NQoAlPVTpEMK8TvlvACCe IUYnlr8GSJIvERA1GlR7YvDoEIZlHSYzLXauXVElTDPgVLp6HDGtPCGxVE3BQxPnXERqXbR2CBLrBPCa WTXelz5DGFUxQND5RbQmCwEyQUFdGCDtHOikBVDnCImnAnBgGAJyNHMqLH2VQwBnNYPmZUGbDGDdOJRy WEUcpa5SYWBoACX4KuuaNOAgDJDjMAKhQXrbIMKsNX acKMR2SZNoEGBxTW7UYkCvVVTzBPG5CcYhROAqEFCivt0LcZWfsBhcpf4BDDgKIe3OmNqeRZO8UZsfZx 3geZJ7TVYaOHJHMq5XzwPmEARkYAKXESbsGAWvMDM7JzHqGMOnN0RpRZAgVgKsIaaeOTU4WxJpYrV7Qj Q2NmX8ShX4RXXqTIA4HaStKnAgIvMzDcD3DQp0ABQw YzhjMzk+QZ9pQKe+Ao2Zv8QmvjM3fwSuVIx4TuAzLE0RJCJMD6RNHu== ID Date Data Source [id number] 07/28/2019 10:25:56 AM [facility] Name Value Range Interpretation Code Description Data Renetta rce(s) Supporting Document(s) Hemoglobin A1c/Hemoglobin.total in Blood 7.9 % 4.0-6.0 H [facility] Glucose mean value [Mass/volume] in Blood Estimated fr om glycated hemoglobin 180 mg/dL <126 H [facility] ID Date Data Source [id number] 07/28/2019 10:13:43 AM [facility] Name Value Range Interpretation Code Description Data Renetta rce(s) Supporting Document(s) Glucose [Mass/volume] in Capillary blood by Glucometer 111 mg/dL 70- 140 [facility] ID Date Data Source [id number] 07/16/2019 12:00:00 PM EST MEDENT ([facility]) Name Value Range Interpretation Code Description Data Renetta rce(s) Supporting Document(s) Prothrombin Time 13.7 s 11.8-14.0 MED[facility] ([facility]) Inr 1.08 MED[facility] ([facility]) THERAPUTIC HUMAN INR VALUES INDICATIONS NORMAL RANGES PROPHYLAXIS/TREATMENT OF: VENOUS THROMBOSIS 2.0-3.0 PULMONARY EMBOLISM 2.0-3.0 PREVENTION OF SYSTEMIC EMBOLISM FROM: TISSUE HEART VALVES 2.0-3.0 ACUTE MYOCARDIAL INFARCTION 2.0-3.0 VALVULAR HEART DISEASE 2.0-3.0 ATRIAL FIBRILLATION 2.0-3.0 MECHANICAL VALVES(HIGH RISK) 2.5-3.5 RECURRENT MYOCARDIAL INFARCTION 2.5-3.5 ID Date Data Source [id number] 07/16/2019 12:00:00 PM EST MEDENT ([facility]) Name Value Range Interpretation Code Description Data Renetta rce(s) Supporting Document(s) Sodium Level 142 meq/L 136-145 [facility] ([facility]) Potassium Serum 4.0 meq/L 3.5-5.1 [facility] ([facility]) Chloride Level 108 meq/L 98-107 MED[facility] ([facility]) Carbon Dioxide Level 26 meq/L 21-32 MED[facility] ([facility]) Anion Gap 8 meq/L 8-16 [facility] ID Date Data Source [id number] 07/16/2019 12:00:00 PM EST MEDENT ([facility]) Name Value Range Interpretation Code Description Data Renetta rce(s) Supporting Document(s) White Blood Count 5.3 10 4.0-10.0 MED[facility] ([facility]) Red Blood Count 5.17 10 4.30-6.10 [facility] ([facility]) Hematocrit 46.0 % 42.0-52.0 [facility] ([facility]) Hemoglobin 15.6 g/dL 13.5-17.5 [facility] ([facility]) Mean Corpuscular Hemoglobin 30.2 pg 27.0-33.0 [facility] ([facility]) Mean Corpuscular HGB Conc 33.9 g/dL 32.0-36.5 [facility] ([facility]) Mean Corpuscular Volume 89.0 fl 80.0-96.0 M EDENT ([facility]) Platelet Count, Automated 167 10 150-450 MED[facility] ([facility]) Red Cell Distribution Width 12.9 % 11.5-14.5 [facility] ([facility]) Nucleated Red Blood Cell % 0.0 % 0-0 MED ENT ([facility]) Procedure Social History Code Duration Value Status Description Data Source(s ) Smoking 06/15/2020 12:00:00 AM EST Never Smoker completed Never S moker eCW1 ([facility]) Smoking 06/15/2020 12:00:00 AM EST Never Smoker completed Never S moker eCW1 ([facility]) Smoking 06/15/2020 12:00:00 AM EST Never Smoker completed Never S moker eCW1 ([facility]) Smoking 06/15/2020 12:00:00 AM EST Never Smoker completed Never S moker eCW1 ([facility]) Smoking 06/15/2020 12:00:00 AM EST Never Smoker completed Never S moker eCW1 ([facility]) Smoking 06/15/2020 12:00:00 AM EST Never Smoker completed Never S moker eCW1 ([facility]) Smoking 06/15/2020 12:00:00 AM EST Never Smoker completed Never S moker eCW1 ([facility]) Smoking 06/15/2020 12:00:00 AM EST Never Smoker completed Never S moker eCW1 ([facility]) Smoking 06/15/2020 12:00:00 AM EST Never Smoker completed Never S moker eCW1 ([facility]) Smoking 06/15/2020 12:00:00 AM EST Never Smoker completed Never S moker eCW1 ([facility]) Smoking 05/24/2020 12:00:00 AM EST Never Smoker completed Never S moker eCW1 ([facility]) Smoking 05/24/2020 12:00:00 AM EST Never Smoker completed Never S moker eCW1 ([facility]) Smoking 05/24/2020 12:00:00 AM EST Never Smoker completed Never S moker eCW1 ([facility]) Smoking 05/24/2020 12:00:00 AM EST Never Smoker completed Never S moker eCW1 ([facility]) Smoking 05/12/2020 12:00:00 AM EST Patient has never smoked co mpleted Patient has never smoked [facility] ([facility]) Smoking 03/30/2020 12:00:00 AM EDT Never Smoked Cigarettes com pleted Never Smoked Cigarettes MED[facility] ([facility]) Alcohol intake 10/28/2019 12:00:00 AM EDT Current drinker of al cohol (finding) completed Current drinker of alcohol (finding) [facility] Tobacco use and exposure 10/28/2019 12:00:00 AM EDT Current user co mpleted Current user [facility] Smoking 10/28/2019 12:00:00 AM EDT Never smoker completed Never [facility] Smoking 10/28/2019 12:00:00 AM EDT Never smoker completed Never [facility] Alcohol intake 07/28/2019 12:00:00 AM EST Current drinker of al cohol (finding) completed Current drinker of alcohol (finding) [facility] Smoking 07/28/2019 12:00:00 AM EST Never smoker completed Never [facility] Vital Signs ID Date Data Source [id number] Name Value Range Interpretation Code Description Data Source(s) Diastolic blood pressure 68 mm[Hg] 68 mm[Hg] eCW1 ([facility]) Systolic blood pressure 138 mm[Hg] 138 mm[Hg] e CW1 ([facility]) Body temperature 96.8 [degF] 96.8 [degF] eCW1 ( [facility]) Respiratory rate 16 /min 16 /min eCW1 ([facility]) Heart rate 69 /min 69 /min eCW1 ([facility]) Body mass index (BMI) [Ratio] 36.68 kg/m2 36.68 kg/m2 W1 ([facility]) Body height 71 [in_i] 71 [in_i] eCW1 ([facility]) Body weight 263 [lb_av] 263 [lb_av] eCW1 ([facility]) Diastolic blood pressure 78 mm[Hg] 78 mm[Hg] eCW1 ([facility]) Systolic blood pressure 124 mm[Hg] 124 mm[Hg] e CW1 ([facility]) Body temperature 97.1 [degF] 97.1 [degF] eCW1 ( [facility]) Respiratory rate 16 /min 16 /min eCW1 ([facility]) Heart rate 67 /min 67 /min eCW1 ([facility]) Body mass index (BMI) [Ratio] 36.40 kg/m2 36.40 kg/m2 eCW1 ([facility]) Body height 71 [in_i] 71 [in_i] eCW1 ([facility]) Body weight 261 [lb_av] 261 [lb_av] eCW1 ([facility]) Diastolic blood pressure--sitting 78 mm[Hg] 78 mm[Hg] MEDENT ([facility]) large cuff, Ra Systolic blood pressure--sitting 140 mm[Hg] 140 mm[Hg] MED[facility] ([facility]) large cuff, Ra Heart rate 61 /min 61 /min MED[facility] ([facility]) Body mass index (BMI) [Ratio] 36.4 kg/m2 36.4 k g/m2 [facility] ([facility]) Body height 71 [in_i] 71 [in_i] MED[facility] ([facility]) 5'11" Body weight 261.00 [lb_av] 261.00 [lb_av] MEDEN T ([facility]) Body weight 119.297 kg 119.297 [facility] Body mass index (BMI) [Ratio] 37.7 kg/m2 37.7 k g/m2 [facility] ([facility], ) Body weight 263.00 [lb_av] 263.00 [lb_av] MEDEN T ([facility], ) Body height 70 [in_i] 70 [in_i] [facility], [facility] 5'10" Body temperature 97.1 [degF] 97.1 [degF] [facility] ([facility], ) Oxygen saturation in Arterial blood by Pulse oximetry 96 % 96 % [facility] ([facility], ) Heart rate 65 /min 65 /min [facility] ([facility], ) Diastolic blood pressure 68 mm[Hg] 68 mm[Hg] [facility] ([facility], ) Systolic blood pressure 124 mm[Hg] 124 mm[Hg] M [facility] ([facility], ) Diastolic blood pressure--sitting 78 mm[Hg] 78 mm[Hg] [facility] ([facility]) large cuff, Ra Systolic blood pressure--sitting 126 mm[Hg] 126 mm[Hg] [facility] ([facility]) large cuff, Ra Heart rate 67 /min 67 /min [facility] ([facility]) Body mass index (BMI) [Ratio] 37.1 kg/m2 37.1 k g/m2 [facility] ([facility]) Body height 71 [in_i] 71 [in_i] [facility] ([facility]) 5'11" Body weight 266.00 [lb_av] 266.00 [lb_av] [facility] ([facility]) Respiratory rate 18 /min 18 /min eCW1 ([facility]) Heart rate 71 /min 71 /min eCW1 ([facility]) Body mass index (BMI) [Ratio] 36.82 kg/m2 36.82 kg/m2 eCW1 ([facility]) Body height 71 [in_us] 71 [in_us] eCW1 ([facility]) Body weight Measured 264 [lb_av] 264 [lb_av] eC W1 ([facility]) Diastolic blood pressure 84 mm[Hg] 84 mm[Hg] eCW1 ([facility]) Systolic blood pressure 158 mm[Hg] 158 mm[Hg] e CW1 ([facility]) Body temperature 97.4 [degF] 97.4 [degF] eCW1 ( [facility]) Body weight 122.472 kg 122.472 kg [facility] ([facility], ) Body mass index (BMI) [Ratio] 38.7 kg/m2 38.7 k g/m2 [facility] ([facility], ) Body weight 270.00 [lb_av] 270.00 [lb_av] [facility] T ([facility], ) Body height 70 [in_i] 70 [in_i] [facility] ([facility], ) 5'10" Body temperature 97.2 [degF] 97.2 [degF] [facility] ([facility], ) Oxygen saturation in Arterial blood by Pulse oximetry 96 % 96 % [facility] ([facility], ) Heart rate 65 /min 65 /min [facility] ([facility], ) Diastolic blood pressure 82 mm[Hg] 82 mm[Hg] [facility] ([facility], ) Systolic blood pressure 150 mm[Hg] 150 mm[Hg] M EDENT ([facility], ) Body mass index (BMI) [Ratio] [...] pressure 72 mm[Hg] 72 mm[Hg] W1 ([facility]) Systolic blood pressure 136 mm[Hg] 136 mm[Hg] e CW1 ([facility]) Body mass index (BMI) [Ratio] 36.82 kg/m2 36.82 kg/m2 eCW1 ([facility]) Body height 71 [in_us] 71 [in_us] W1 ([facility]) Body weight Measured 264 [lb_av] 264 [lb_av] eC W1 ([facility]) Diastolic blood pressure 72 mm[Hg] 72 mm[Hg] eCW1 ([facility]) Systolic blood pressure 145 mm[Hg] 145 mm[Hg] e CW1 ([facility]) Body temperature 98.3 [degF] 98.3 [degF] eCW1 ( [facility]) Respiratory rate 18 /min 18 /min eCW1 ([facility]) Heart rate 64 /min 64 /min eCW1 ([facility]) Body mass index (BMI) [Ratio] 36.54 kg/m2 36.54 kg/m2 eCW1 ([facility]) Body height 71 [in_us] 71 [in_us] eCW1 ([facility]) Body weight Measured 262 [lb_av] 262 [lb_av] eC W1 ([facility]) Body weight 118.390 kg 118.390 kg [facility] ([facility], ) Body mass index (BMI) [Ratio] 36.4 kg/m2 36.4 k g/m2 [facility] ([facility]) Body weight 261.00 [lb_av] 261.00 [lb_av] [facility] T ([facility]) Body height 71 [in_i] 71 [[facility]_i] [facility] 5'11" Diastolic blood pressure 80 mm[Hg] 80 mm[Hg] [facility] ([facility]) Systolic blood pressure 149 mm[Hg] 149 mm[Hg] M EDENT ([facility]) Diastolic blood pressure--sitting 76 mm[Hg] 76 mm[Hg] [facility]) large cuff, [place] Systolic blood pressure--sitting 138 mm[Hg] 138 mm[Hg] [facility] ([facility]) large cuff, [place] Heart rate 63 /min 63 /min [facility] ([facility]) Body mass index (BMI) [Ratio] 36.5 kg/m2 36.5 k g/m2 [facility] ([facility]) Body height 71 [in_i] 71 [in_i] [facility] ([facility]) 5'11" Body weight 262.00 [lb_av] 262.00 [lb_av] [facility] T ([facility]) ID Date Data Source [id number] [facility] Interpretation Code Description Data Source(s) WEIGHT RECORDED 261.6 lb 261.6 lb [facility] Body height Measured 70.08 in 70.08 in [facility] ID Date Data Source [id number] 01/03/2020 11:02:56 AM [facility] Name Value Range Interpretation Code Description Data Source(s) WEIGHT RECORDED 261 lb 261 lb [facility] Body height Measured 70 in 70 in [facility] ID Date Data Source [id number] 07/28/2019 10:41:46 AM [facility] Name Value Range Interpretation Code Description Data Source(s) WEIGHT RECORDED 261 lb 261 lb [facility] Body height Measured 70 in 70 in [facility] Patient Treatment Plan of Care Planned Activity Planned Date Details Description Data Source (s) atorvastatin 40 MG Oral Tablet 04/20/2020 12:00:00 AM [facility] Cholecalciferol 4000 UNT Oral Capsule 04/20/2020 12:00:00 AM [facility] 0.5 ML dulaglutide 3 MG/ML Auto-Injector [Trulicity] 020 12:00:00 AM [facility] OneTouch Delica Lancets 33G 04/20/2020 12:00:00 AM [facility] 3 ML insulin detemir 100 UNT/ML Pen Injector [Levemir] 04/20/2020 12:00:00 AM [facility] 3 ML Insulin, Aspart, Human 100 UNT/ML Pen Injector [N ovoLog] 04/20/2020 12:00:00 AM [facility] FreeStyle Shabbir 14 Day Sensor 04/20/2020 12:00:00 AM [facility] Losartan Potassium 100 MG Oral Tablet 04/19/2020 12:00:00 AM [facility] Naproxen 500 MG Oral Tablet 03/25/2020 12:00:00 AM [facility] BD Pen Needle Original U/F 29G X 12.7MM (Insulin Pen N eedle) 03/21/2020 12:00:00 AM [facility] Levothyroxine Sodium 0.125 MG Oral Tablet 03/21/2020 12:00:00 AM [facility] Cholecalciferol 1000 UNT Oral Tablet 03/21/2020 12:00:00 AM [facility] tizanidine 4 MG Oral Tablet 11/24/2019 12:00:00 AM [place] [id number] ([facility]) Naproxen 500 MG Oral Tablet 11/24/2019 12:00:00 AM [place] [id number] ([facility]) FreeStyle Shabbir 14 Day Sensor 11/23/2019 12:00:00 AM [facility] Baclofen 10 MG Oral Tablet 11/18/2019 12:00:00 AM [facility] Insulin Pen Needle 29G X 12.7MM (BD ULTRA-FINE PEN NEE DLES) 10/28/2019 12:00:00 AM [facility] 0.5 ML dulaglutide 3 MG/ML Auto-Injector [Trulicity] 12:00:00 AM [facility] pantoprazole 40 MG Delayed Release Oral Tablet 10/01/2019 12:00:00 AM [facility] Losartan Potassium 50 MG Oral Tablet 10/01/2019 12:00:00 AM [facility] Terbinafine hydrochloride 10 MG/ML Topical Cream 09/28/2019 12:00:0 0 AM [facility] Insulin Pen Needle 29G X 12.7MM (BD ULTRA-FINE PEN NEE DLES) 09/06/2019 12:00:00 AM [facility] Ondansetron 4 MG Disintegrating Oral Tablet 09/04/2019 12:00:00 AM [facility] Terbinafine hydrochloride 10 MG/ML Topical Cream 08/27/2019 12:00:0 0 AM [place] [id number] ([facility]) 3 ML insulin detemir 100 UNT/ML Pen Injector 07/28/2019 12:00:00 AM [facility] 3 ML Insulin, Aspart, Human 100 UNT/ML Pen Injector 07/28/19 12:00:00 AM [facility] Cholecalciferol 1000 UNT Oral Tablet 07/28/2019 12:00:00 AM [facility] Levothyroxine Sodium 0.125 MG Oral Tablet 07/28/2019 12:00:00 AM [facility] FreeStyle Shabbir 14 Day Sensor 07/28/2019 12:00:00 AM [facility] 0.5 ML dulaglutide 3 MG/ML Auto-Injector 07/28/2019 12:00:00 AM [facility] Insulin Pen Needle 29G X 12.7MM (BD ULTRA-FINE PEN NEE DLES) 07/02/2019 12:00:00 AM [facility] 0.5 ML dulaglutide 3 MG/ML Auto-Injector 05/28/2019 12:00:00 AM [facility] 3 ML Insulin, Aspart, Human 100 UNT/ML Pen Injector 05/28/20 12:00:00 AM [facility] 3 ML insulin detemir 100 UNT/ML Pen Injector 05/28/2019 12:00:00 AM [facility] Continuous Blood Gluc Sensor (FREESTYLE SHABBIR 14 DAY S ENSOR) [facility] 03/10/2019 12:00:00 AM [facility] Cholecalciferol 1000 UNT Oral Tablet 12/02/2018 12:00:00 AM [facility] Levothyroxine Sodium 0.125 MG Oral Tablet 10/26/2018 12:00:00 AM [facility] JAZZY BLANC 33G [facility] 06/17/2017 12:00:00 AM [facility]
--- NOTE | 2020-07-21 18:22 | ECGEPIP ---
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
--- NOTE | 2020-07-21 18:31 | HPEPDOC ---
[facility] Medical History & Physical Date of Admission Jul 21, 2020 Date of Service: Jul 21, 2020 Attending Physician: CLEOPATRA BLANC MD History and Physical CHIEF COMPLAINT: worsened SOB, COVID19+ HISTORY OF PRESENT ILLNESS: Kuldip Reyna is a 59 YO M with history of insulin-dependant DM2, LUCILA noncompliant with home CPAP, hypothyroidism who presents for third hospitalization in the past two months since he's been diagnosed with Covid 19. His first hospitalization was from 07/11/2020 until 07/12/2020 where he was found to be Covid positive as well as C. difficile, and epididymitis. He was discharged home on oral vancomycin and oral Levaquin for the C. difficile and epididymitis, respectively. On that hospitalization he was given only a one-time dose of 125 mg Solu-Medrol. A CT angiography of the chest on 07/11/2020 found no evidence of acute, central pulmonary emboli, but peripheral pulmonary arterial evaluation was limited by motion artifact. On his subsequent admission, from 07/13/2020 until 07/19/2020 the patient was treated with 6 days of dexamethasone and was placed on BiPAP as his saturations initially dropped. At the time of discharge he had been titrated down to 2 L oxygen and was sent home with oxygen and a Combivent inhaler. The patient reports once he went home he simply slept and continue to use the oxygen. He states he was using his incentive spirometer and Combivent inhaler but does not believe he received any the medication during inhalation. When home health visi allan him today he was found to require 6 L of oxygen. Upon his presentation to the ED, he states he feels more short of breath, worse with activity. He states that he has not had any fevers or chills recently, nor has he had any nausea/vomiting/diarrhea. He has not been eating much. PAST MEDICAL HISTORY: LUCILA/ CPAP Pulmonary (last seen 06/16)- not using. DM2: Cris. Hypothyroidism: Cris. GERD : diet controlled. HTN. Obesity. Dyslipidemia. H/O Anxiety. Allergic rhinitis. Pneumovax- REFUSES. Thoracic anuerysm. LBBB. Echocardiogram 05/[address] Gutierrez: moderately thickened aortic valve, dil ated throacic aorta at 4.2 cm. CAD. PAST SURGICAL HISTORY: hernia repair appendectomy septoplasty cardiac cath ([facility]) 09/2012 EGD/colonoscopy 2010 Angioplasty- [facility]: Gerda 02/2017 Colonoscopy- Dr. Castellon. + adenoma: repeat due 04/2017 Cardiac Stent: 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 1 son(s) , 2 daughter(s) - healthy. Brother in October d/t colorectal cancer Brother - MVA Sister- Lung CA (2). ALLERGIES: Please see below. REVIEW OF SYSTEMS: Constitutional: No Weight Change, No Fever, No Chills, No Night Sweats, No Fatigue, No Malaise ENT/Mouth: No Hearing Changes, No Ear Pain, No Nasal Congestion, No Sinus Pain, No Hoarseness, No sore throat, No Rhinorrhea, No Swallowing Difficulty Eyes: No Eye Pain, No Swelling, No Redness, No Foreign Body, No Discharge, No Vision Changes Cardiovascular: No Chest Pain, reports SOB, No PND, reports Dyspnea on Exertion, No Orthopnea, No Edema, No Palpitations Respiratory: Reports cough, reports shortness of breath, reports dyspnea on exertion Gastrointestinal: No Nausea, No Vomiting, No Diarrhea, No Constipation, No Pain, No Heartburn, No Anorexia, No Dysphagia, No Hematochezia, No Melena, No Flatulence, No Jaundice Genitourinary: No Dysuria Musculoskeletal: No Arthralgias, No Myalgias, No Joint Swelling, No Joint Stiffness, No Back Pain, No Neck Pain Neuro: No Weakness, No Numbness, No Paresthesias, No Loss of Consciousness, No Syncope, No Dizziness, No Headache, No Coordination Changes, No Recent Falls Psych: No Anxiety/Panic, No Depression, No Insomnia, No Personality Changes, No Delusions Heme/Lymph: No Bruising, No Bleeding, No Transfusions History, No Lymphadenopathy Endocrine: No Polyuria, No Polydipsia, No Temperature Intolerance HOME MEDICATIONS: Please see below. PHYSICAL EXAMINATION: VITAL SIGNS: see below GENERAL: alert and oriented, in no apparent distress, pleasant and conversant in full sentences. HEENT: PERRL, EOMI, Oral mucous membranes are moist without lesions. NECK: The patient has no noted JVD. No adenopathy is appreciated. No thyromegaly CHEST/LUNGS: There are decreased breath sounds bilaterally without any adventitious breath sounds appreciated. Chest rise is symmetrical. No crackles, wheezes HEART:Regular rate and rhythm. No murmurs, rubs, or gallops are appreciated. Distal pulses are 2+. No carotid bruits appreciated. ABDOMEN: Obese, Soft, nontender, and nondistended. Bowel sounds are positive. No organomegaly is appreciated. No masses are appreciated. There are no peritoneal signs. There is no [place] sign. EXTREMITIES: No peripheral edema. There is no focal long bone tenderness or deformity. SKIN: The patients skin is warm and dry, without rashes or lesions. PSYCHIATRIC: AAO x 3, normal mood/affect NEUROLOGIC: The patient has 5/5 strength to the upper and lower extremities jada aterally. Sensation is intact throughout. Deep tendon reflexes are 2+ in all four extremities. There are no deficits to the cranial nerves. LABORATORY DATA: See below. IMAGING: CXR: FINDINGS: Diffuse bilateral infiltrates are again noted appearing quite similar to the prior exam. Heart mediastinum appear unchanged. IMPRESSION: Stable diffuse bilateral infiltrates. MICROBIOLOGY: Please see below. ASSESSMENT: This is a 59-year-old male with history of obesity, diabetes type 2 on insulin, LUCILA noncompliant with CPAP who presents for third hospitalization for acute hypoxic respiratory failure secondary to COVID-19 pneumonia. PLAN: 1. Acute hypoxic respiratory failure secondary to COVID-19 pneumonia: -ABG on admission: 7.431/PCO2 34/PO2 67 -Will order CTA to rule out PE -Start Decadron 6 mg IV daily -Tessalon Perles for cough -Mucinex for congestion -Combivent inhaler scheduled 4 times a day -Oxygen titration orders in place -Weight-based Lovenox prophylactic dose ordered. Pending results of CTA, will change to weight-based treatment dose if necessary -Encourage strict proning -Encourage use of incentive spirometer -Will trend inflammatory markers at this time -Current inflammatory markers: Fibrinogen elevated at 778, d-dimer somewhat elevated at 606, CRP found to be elevated at 11.9 (CRP was down to 4.4 on 07/19/2020), ferritin elevated at 905 2. Possible superimposed bacterial pneumonia: -Started ceftriaxone and doxycycline for concurrent coverage of community-acquir ed pneumonia -Pending pro-calcitonin -Ordered mycoplasma, legionella workup -Pending blood cultures 3. Type 2 diabetes, insulin-dependent: -Continue Levemir 30 units twice daily -Sliding-scale insulin with hypoglycemic protocol -Consistent carbohydrate diet 4. Hypothyroidism: -TSH somewhat elevated at 7.940. T4 within normal limits at 1.25 -Continue home dose of levothyroxine 5. History of hypertension: -Continue losartan 6. GERD: -Continue Protonix 7. Mood disorder: -Continue paroxetine 8. History of CAD: -Continue atorvastatin, aspirin DVT ppx: Weight-based prophylactic dose of Lovenox, 110 mg every 12 hours DISPO: The improvement in oxygenation Vital Signs Vital Signs Date Time Temp Pulse Resp B/P (MAP) Pulse Ox O2 Delivery O2 Flow Rate FiO2 07/21/20 15:41 Nasal Cannula 6.0 93 07/21/20 15:37 96.5 71 38 123/56 92 Laboratory Data Labs 24H Laboratory Tests 2 07/21/20 15:49: Immature Granulocyte % (Auto) 1.6, Neutrophils (%) (Auto) 79.8H, Lymphocytes (%) (Auto) 10.8L, Monocytes (%) (Auto) 6.6H, Eosinophils (%) (Auto) 1.1, Basophils (%) (Auto) 0.1, Neutrophils # (Auto) 6.0, Lymphocytes # (Auto) 0.8L, Monocytes # (Auto) 0.5, Eosinophils # (Auto) 0.1, Basophils # (Auto) 0.0, Nucleated Red Blood Cells % (auto) 0.0, Prothrombin Time 14.4H, Prothromb Time International Ratio 1.09, Lactic Acid Level 1.3, Total Bilirubin 0.8, Direct Bilirubin 0.2, Aspartate Amino Transf (AST/SGOT) 16, Alanine Aminotransferase (ALT/SGPT) 129H, Alkaline Phosphatase 117, RP-Bys-V-Type Natriuretic Peptide 323H, Total Protein 6.0L, Albumin 2.6L, Albumin/Globulin Ratio 0.8, Thyroid Stimulating Hormone (TSH) 7.940H 1/15/21 16:10: POC Glucose (Misc Panel) 205H, POC Sodium (Misc Panel) 135L, POC Potassium (Misc Panel) 3.8, POC Chloride (Misc Panel) 104, POC Total CO2 (Misc Panel) 25.0, POC Blood Urea Nitrogen (Misc Panel 16, POC Ionized Calcium (Misc Panel) 4.0L, POC Creatinine (Misc Panel) 0.7, POC Hematocrit (Misc Panel) 33.0L 07/21/20 16:33: POC Total CO2 (Misc Panel) 24.0, POC pH (Misc Panel) 7.431, POC Base Excess (Misc Panel) -1.0, POC Saturated Percent O2 (Misc) 94L, POC pO2 (Misc Panel) 67.0L, POC pCO2 (Misc Panel) 34.5L, POC HCO3 (Misc Panel) 22.9 CBC/BMP Laboratory Tests 07/21/20 15:49 Microbiology Microbiology 07/21/20 Blood Culture, Received Pending 07/21/20 Blood Culture, Received Pending Home Medications Scheduled Aspirin (Aspirin) 81 Mg Chw, 81 MG PO QHS Atorvastatin Calcium (Atorvastatin Calcium) 40 Mg Tablet, 40 MG PO QHS Cetirizine HCl (Cetirizine HCl) 10 Mg Tablet, 10 MG PO QHS Cholecalciferol (Vitamin D3) (Vitamin D3) 50 Mcg Capsule, 100 MCG PO DAILY Dulaglutide (Trulicity) 1.5 Mg/0.5 Ml Pen.injctr, 1.5 MG IM QWEEK FRIDAY Insulin Glargine,Hum.rec.anlog (Basaglar Kwikpen U-100) 100 Unit/1 Ml Insuln.pen, 30 UNIT SC BID Ipratropium/Albuterol Sulfate (Combivent Respimat 20-100 Mcg) 4 Gm Mist.inhal, 2 PUFF INH TID Lactobacillus 3/Fos/Pantethine (Probiotic & Acidophilus Cap) 1 Each Capsule, 1 CAP PO DAILY Levothyroxine Sodium (Levo-T) 125 Mcg Tablet, 125 MCG PO DAILY Losartan Potassium (Losartan Potassium) 100 Mg Tablet, 100 MG PO QHS Pantoprazole Sodium (Pantoprazole Sodium) 40 Mg Tablet.dr, 40 MG PO QHS Paroxetine HCl (Paroxetine HCl) 20 Mg Tab, 20 MG PO QHS Ubidecarenone (Coenzyme Q10) 100 Mg Cap, 200 MG PO BID Scheduled PRN Acetaminophen (Acetaminophen) 500 Mg Tablet, 1,000 MG PO Q8H PRN for PAIN Albuterol Sulfate (Ventolin Hfa) 18 Gm Hfa.aer.ad, 2 PUFFS INH QID PRN for SOB/WHEEZING Benzonatate (Tessalon Perle) 100 Mg Capsule, 100 MG PO TID PRN for COUGH Insulin Lispro (Admelog Solostar) 100 Unit/1 Ml Insuln.pen, 1 DOSE SC ASDIRECTED PRN for SLIDING SCALE Nitroglycerin (Nitrostat) 0.4 Mg Subl, 0.4 MG SL NITRO PRN for CHEST PAIN Tramadol HCl (Tramadol HCl) 50 Mg Tablet, 50 MG PO Q8H PRN for PAIN Allergies Coded Allergies: Sulfa (Sulfonamide Antibiotics) (Verified Allergy, Severe, ANAPHYLAXIS, 07/21/20) asa'[place] (Verified Allergy, Severe, ANAPHYLAXIS, 07/21/20) amoxicillin (Verified Allergy, Unknown, 07/21/20) cefdinir (Verified Allergy, Unknown, 07/21/20) clavulanic acid (Verified Allergy, Unknown, 07/21/20) pseudoephedrine (Verified Adverse Reaction, Severe, high bp, 07/21/20) lisinopril (Verified Adverse Reaction, Intermediate, BRADYKININ COUGH, 07/21/20) A-FIB/CHADSVASC A-FIB History Current/History of A-Fib/PAF?: No Current PO Anticoag Therapy: No GME ATTESTATION GME ATTESTATION My faculty preceptor for this patient encounter was physically present during the encounter and was fully available. All aspects of the patient interview, examination, medical decision making process, and medical care plan development were reviewed and approved by the faculty preceptor. The faculty preceptor is aware and concurs with the plan as stated in the body of this note and will attest to such by his/her cosignature. ATTENDING NOTE I, Cleopatra Blanc, have independently examined this patient and performed my own physical exam, as well as reviewed the documentation and edited where necessary. I have discussed in detail with the resident / student the findings and plan of treatment as documented by the resident / student and edited their note. I agree with their findings and treatment plan and have edited their documentation. I will continue to follow the patient during this hospital stay. SONAM YUN MD Jul 21, 2020 17:06 CLEOPATRA BLANC MD Jul 22, 2020 16:23
[2020-07-21] MEDS: dexameTHASONE 4 MG/ML 1ML VIAL (J1100 PER 1MG) IV SCH (18:44)
[2020-07-21] MEDS: cefTRIAXone SOD 1 GM in D5W MINI-BAG PLUS 50 ML IV SCH (18:44)
--- NOTE | 2020-07-21 19:55 | REPVR ---
PROCEDURE INFORMATION: Exam: CT Angiography Chest With Contrast Exam date and time: 07/21/2020 7:01 PM Age: 59 years old Clinical indication: COVID+, R/O pe TECHNIQUE: Imaging protocol: Computed tomographic angiography of the chest with intravenous contrast. 3D rendering (Not supervised by radiologist): MIP and/or 3D reconstructed images were created by the technologist. Radiation optimization: All CT scans at this facility use at least one of these dose optimization techniques: automated exposure control; mA and/or kV adjustment per patient size (includes targeted exams where dose is matched to clinical indication); or iterative reconstruction. Contrast material: ISOVUE 370; Contrast volume: 100 ml; Contrast route: INTRAVENOUS (IV); COMPARISON: CT ANGIO CHEST 07/11/2020 5:59 PM FINDINGS: Pulmonary arteries: No pulmonary embolism. Aorta: The thoracic aorta is intact and patent. There is no thoracic aortic aneurysm, pseudoaneurysm, penetrating atherosclerotic ulcer, intramural hematoma, or dissection. There are minimal atherosclerotic calcifications. Great vessels off aortic arch: The brachiocephalic artery, imaged proximal portions of the common carotid arteries, imaged proximal portions of the vertebral arteries, and subclavian arteries are intact. No stenosis or occlusion of these vessels is noted. Incidental note is made of a bovine aortic arch, with common origin of the brachiocephalic artery and left common carotid artery from the aortic arch, which is a normal variant. Lungs: There are extensive ground-glass opacities with superimposed consolidation and areas of intralobular septal thickening (?crazy-paving?) from both lungs, which has progressed compared to the prior CTA chest on 07/11/2020 and are in keeping with the patient's history of COVID-19 pneumonia. Pleural space: Unremarkable. No pneumothorax. No pleural effusion. Heart: The heart is mildly enlarged. No pericardial effusion. The ratio of the diameter of the right ventricle to the diameter of the left ventricle measures less than 1, which is within normal limits and there is no evidence for a right ventricular strain. There are aortic valve and coronary artery calcifications. Mediastinal space: No mediastinal mass, fluid collection, or pneumomediastinum. Lymph nodes: No enlarged lymph nodes. Diaphragm: Intact. Gallbladder and bile ducts: No calcified gallstones are noted. No gallbladder wall thickening, pericholecystic fluid, or pericholecystic inflammatory changes are identified. No dilation of the bile ducts is noted. No calcified stones are seen in the common bile duct. Spleen: The spleen is enlarged and measures 14.3 cm. Limited kidneys: There is bilateral perinephric stranding. The kidneys were not fully imaged. Bones/joints: There is no fracture or dislocation. No suspicious osteolytic or osteoblastic lesion. There are degenerative changes involving the thoracic spine. There is endplate sclerosis involving the anterior aspect of the superior endplate of T11 that is unchanged compared to the prior CTA chest on 07/11/2020. Soft tissues: Unremarkable. No soft tissue fluid collection. IMPRESSION: 1. No pulmonary embolism. 2. Extensive ground-glass opacities with superimposed consolidation and areas of intralobular septal thickening (?crazy-paving?) from both lungs, which has progressed compared to the prior CTA chest on 07/11/2020 and are in keeping with the patient's history of COVID-19 pneumonia. 3. Splenomegaly. Electronically signed by: Samm Benitez On 07/21/2020 19:54:57 PM
[2020-07-21] MEDS: COMBIVENT RESPIMAT 100-20MCG INHALER 4GM INH SCH (20:00)
[2020-07-21] MEDS: traMADol 50 MG TAB PO PRN (20:01)
[2020-07-21 20:36] LABS: CK-MB VALUE MASS < 1.0 NG/ML (<3.6); CPK CREATINE PHOSPHOKINASE 414 U/L (39-308); MB/CK RELATIVE INDEX 0.24 (< OR =4); TROPONIN I < 0.02 NG/ML (< 0.10)
[2020-07-21] MEDS ORDERED: ENOXAPARIN 120MG/0.8ML SYRINGE (J1650 PER 10MG) SC SCH (21:00)
[2020-07-21] MEDS: SODIUM CHLORIDE NASAL 0.65% SPRAY BTL (OCEAN) SCH (21:00)
[2020-07-21 23:00] VITALS: BP 129/62
[2020-07-22] MEDS: guaiFENesin ER 600 MG TAB PO SCH ×3 (00:17→20:45)
[2020-07-22] MEDS: PANTOPRAZOLE 40MG TAB (PROTONIX) PO SCH ×2 (00:17→20:44)
[2020-07-22] MEDS: PARoxetine 20MG TABLET PO SCH ×2 (00:17→20:47)
[2020-07-22] MEDS: ATORVASTATIN 20 MG TAB PO SCH ×2 (00:18→20:44)
[2020-07-22] MEDS: LOSARTAN 50MG TABLET PO SCH ×2 (00:18→20:47)
[2020-07-22] MEDS: DOXYCYCLINE HYCLATE 100 MG in D5W MINI-BAG PLUS 100 ML IV SCH ×3 (00:20→20:44)
[2020-07-22] MEDS: HumaLOG INSULIN (NovoLOG) PER UNIT SC SCH ×5 (00:32→20:48)
[2020-07-22] MEDS: CETIRIZINE (ZyrTEC) 10 MG TAB PO SCH ×2 (00:32→20:44)
[2020-07-22] MEDS: ASPIRIN 81 MG CHEW TABLET PO SCH ×2 (00:32→20:44)
[2020-07-22] MEDS: LEVEMIR (INSULIN DETEMIR) 1 UNITS/0.01ML SC SCH ×3 (00:32→20:47)
[2020-07-22] MEDS: LEVOTHYROXINE 125MCG TABLET (0.125MG) PO SCH (06:04)
[2020-07-22] MEDS: cefTRIAXone SOD 1 GM in D5W MINI-BAG PLUS 50 ML IV SCH ×2 (06:04→18:33)
[2020-07-22 06:05] VITALS: BP 118/60
[2020-07-22 09:05] LABS: BASO % 0.2 % (0.0-1.0); EOS % 0.3 % (0.0-3.0); HEMATOCRIT 37.6 % (42.0-52.0); HEMOGLOBIN 12.9 g/dl (13.5-17.5); LYMPH # 0.6 10^3/uL (1.5-5.0); LYMPH % 9.5 % (24.0-44.0); MEAN CORPUSCULAR HEMOGLOBIN 30.6 pg (27.0-33.0); MEAN CORPUSCULAR HGB CONC 34.3 g/dl (32.0-36.5); MEAN CORPUSCULAR VOLUME 89.1 fl (80.0-96.0); MONO # 0.3 10^3/uL (0.0-0.8); MONO % 4.5 % (0.0-5.0); NEUTROPHILS # 5.2 10^3/uL (1.5-8.5); PLATELET COUNT, AUTOMATED 268 10^3/uL (150-450); RED BLOOD COUNT 4.22 10^6/uL (4.30-6.10); WHITE BLOOD COUNT 6.2 10^3/uL (4.0-10.0)
[2020-07-22 09:20] LABS: D-DIMER QUANT 305.13 ng/ml (<500)
[2020-07-22 09:25] LABS: C REACTIVE PROTEIN QUANTITATIV 9.19 MG/DL (0.00-0.30)
[2020-07-22] MEDS: SODIUM CHLORIDE NASAL 0.65% SPRAY BTL (OCEAN) SCH ×2 (09:32→20:48)
[2020-07-22] MEDS: ENOXAPARIN 60MG/0.6ML SYRINGE (J1650 PER 10MG) SC SCH ×2 (09:33→20:44)
[2020-07-22] MEDS: dexameTHASONE 4 MG/ML 1ML VIAL (J1100 PER 1MG) IV SCH (09:33)
[2020-07-22] MEDS: COMBIVENT RESPIMAT 100-20MCG INHALER 4GM INH SCH ×3 (09:34→20:49)
[2020-07-22 12:00] VITALS: BP 143/67
--- NOTE | 2020-07-22 14:32 | IPNPDOC ---
Date Seen The patient was seen on 07/22/20. Progress Note SUBJECTIVE: Mr. Reyna was seen and examined at the bedside this morning. He currently requires 4L O2. He states he feels somewhat better today but he is still short of breath. He was encouraged to continue proning and using his incentive spirometer. He denies any nausea/vomiting/diarrhea at this time. OBJECTIVE PHYSICAL EXAMINATION: VITAL SIGNS: see below GENERAL: alert and oriented, in no apparent distress, pleasant and conversant in full sentences. HEENT: PERRL, EOMI, Oral mucous membranes are moist without lesions. NECK: The patient has no noted JVD. No adenopathy is appreciated. No thyromegaly CHEST/LUNGS: There are decreased breath sounds bilaterally without any adventitious breath sounds appreciated. Chest rise is symmetrical. No crackles, wheezes HEART:Regular rate and rhythm. No murmurs, rubs, or gallops are appreciated. Distal pulses are 2+. No carotid bruits appreciated. ABDOMEN: Obese, Soft, nontender, and nondistended. Bowel sounds are positive. No organomegaly is appreciated. No masses are appreciated. There are no peritoneal signs. There is no Fowler sign. EXTREMITIES: No peripheral edema. There is no focal long bone tenderness or deformity. SKIN: The patients skin is warm and dry, without rashes or lesions. PSYCHIATRIC: AAO x 3, normal mood/affect NEUROLOGIC: The patient has 5/5 strength to the upper and lower extremities bilaterally. Sensation is intact throughout. Deep tendon reflexes are 2+ in all four extremities. There are no deficits to the cranial nerves. LABORATORY DATA: See below. IMAGING: CXR: FINDINGS: Diffuse bilateral infiltrates are again noted appearing quite similar to the prior exam. Heart mediastinum appear unchanged. IMPRESSION: Stable diffuse bilateral infiltrates. CTA: IMPRESSION: 1. No pulmonary embolism. 2. Extensive ground-glass opacities with superimposed consolidation and areas of intralobular septal thickening (?crazy-paving?) from both lungs, which has progressed compared to the prior CTA chest on 07/11/2020 and are in keeping with the patient's history of COVID-19 pneumonia. 3. Splenomegaly. MICROBIOLOGY: Please see below. ASSESSMENT: This is a 59-year-old male with history of obesity, diabetes type 2 on insulin, LUCILA noncompliant with CPAP who presents for third hospitalization for acute hypoxic respiratory failure secondary to COVID-19 pneumonia. PLAN: 1. Acute hypoxic respiratory failure secondary to COVID-19 pneumonia: -ABG on admission: 7.431/PCO2 34/PO2 67 -CTA without concern for PE -Continue Decadron 6 mg IV daily, day 2 -Tessalon Perles for cough -Mucinex for congestion -Combivent inhaler scheduled 4 times a day -Oxygen titration orders in place -Weight-based Lovenox prophylactic dose ordered. Pending results of CTA, will change to weight-based treatment dose if necessary -Encourage strict proning -Encourage use of incentive spirometer -Inflammatory markers: CRP trended down to 9.19, LDH stable at 230, ferritin 905, d-dimer trended down to 305, fibrinogen trended down to 740 2. Possible superimposed bacterial pneumonia: -Continue ceftriaxone and doxycycline for concurrent coverage of community- acquired pneumonia, day 2 -Pro calcitonin less than 0.5 -Ordered mycoplasma, legionella workup -Pending blood cultures 3. Type 2 diabetes, insulin-dependent: -Continue Levemir 30 units twice daily -Sliding-scale insulin with hypoglycemic protocol -Consistent carbohydrate diet 4. Hypothyroidism: -TSH somewhat elevated at 7.940. T4 within normal limits at 1.25 -Continue home dose of levothyroxine 5. History of hypertension: -Continue losartan 6. GERD: -Continue Protonix 7. Mood disorder: -Continue paroxetine 8. History of CAD: -Continue atorvastatin, aspirin DVT ppx: Lovenox 50 mg every 12 hours DISPO: The improvement in oxygenation VS, I&O, 24H, Fishbone Vital Signs/I&O Vital Signs Date Time Temp Pulse Resp B/P (MAP) Pulse Ox O2 Delivery O2 Flow Rate FiO2 07/22/20 06:05 97.8 56 18 118/60 (79) 95 Nasal Cannula 5.0 07/21/20 15:41 93 I&O- Last 24 Hours up to 6 AM 07/22/20 06:00 Intake Total 150 ml Output Total 400 ml Balance -250 ml Laboratory Data 24H LABS Laboratory Tests 2 07/21/20 15:45: Procalcitonin <0.05 07/21/20 15:49: Immature Granulocyte % (Auto) 1.6, Neutrophils (%) (Auto) 79.8H, Lymphocytes (%) (Auto) 10.8L, Monocytes (%) (Auto) 6.6H, Eosinophils (%) (Auto) 1.1, Basophils (%) (Auto) 0.1, Neutrophils # (Auto) 6.0, Lymphocytes # (Auto) 0.8L, Monocytes # (Auto) 0.5, Eosinophils # (Auto) 0.1, Basophils # (Auto) 0.0, Nucleated Red Blood Cells % (auto) 0.0, Prothrombin Time 14.4H, Prothromb Time International Ratio 1.09, Fibrinogen 778H, D-Dimer, Quantitative 606.72H, Lactic Acid Level 1.3, Ferritin 905H, Total Bilirubin 0.8, Direct Bilirubin 0.2, Aspartate Amino Transf (AST/SGOT) 16, Alanine Aminotransferase (ALT/SGPT) 129H, Alkaline Phosp hatase 117, Lactate Dehydrogenase 240, C-Reactive Protein, Quantitative 11.90H, EG-Nzr-B-Type Natriuretic Peptide 323H, Total Protein 6.0L, Albumin 2.6L, Albumin/Globulin Ratio 0.8, Thyroid Stimulating Hormone (TSH) 7.940H, Free Thyroxine 1.25 07/21/20 16:10: POC Glucose (Misc Panel) 205H, POC Sodium (Misc Panel) 135L, POC Potassium (Misc Panel) 3.8, POC Chloride (Misc Panel) 104, POC Total CO2 (Misc Panel) 25.0, POC Blood Urea Nitrogen (Misc Panel 16, POC Ionized Calcium (Misc Panel) 4.0L, POC Creatinine (Misc Panel) 0.7, POC Hematocrit (Misc Panel) 33.0L 07/21/20 16:33: POC Total CO2 (Misc Panel) 24.0, POC pH (Misc Panel) 7.431, POC Base Excess (Mi sc Panel) -1.0, POC Saturated Percent O2 (Misc) 94L, POC pO2 (Misc Panel) 67.0L, POC pCO2 (Misc Panel) 34.5L, POC HCO3 (Misc Panel) 22.9 07/21/20 19:38: Total Creatine Kinase 414H, Creatine Kinase MB < 1.0, Creatine Kinase MB Relative Index 0.24, Troponin I < 0.02 07/22/20 00:15: Bedside Glucose (Misc Panel) 321H 07/22/20 06:03: Bedside Glucose (Misc Panel) 236H CBC/BMP Laboratory Tests 07/21/20 15:49 Microbiology Microbiology 07/21/20 Blood Culture, Received Pending 07/21/20 Blood Culture, Received Pending GME ATTESTATION GME ATTESTATION My faculty preceptor for this patient encounter was physically present during the encounter and was fully available. All aspects of the patient interview, examination, medical decision making process, and medical care plan development were reviewed and approved by the faculty preceptor. The faculty preceptor is aware and concurs with the plan as stated in the body of this note and will attest to such by his/her cosignature. ATTENDING NOTE I, Cleopatra Ferraro, have independently examined this patient and performed my own physical exam, as well as reviewed the documentation and edited where necessary. I have discussed in detail with the resident / student the findings and plan of treatment as documented by the resident / student and edited their note. I agree with their findings and treatment plan and have edited their documentation. I will continue to follow the patient during this hospital stay. SONAM YUN MD Jul 22, 2020 08:38 CLEOPATRA FERRARO MD Jul 22, 2020 16:20
[2020-07-22] MEDS ORDERED: COMBIVENT RESPIMAT 100-20MCG INHALER 4GM INH PRN (14:45)
[2020-07-22 20:57] VITALS: BP 118/58
[2020-07-22] MEDS: traMADol 50 MG TAB PO PRN (22:11)
[2020-07-23] MEDS: cefTRIAXone SOD 1 GM in D5W MINI-BAG PLUS 50 ML IV SCH (06:03)
[2020-07-23] MEDS: LEVOTHYROXINE 125MCG TABLET (0.125MG) PO SCH (06:04)
[2020-07-23 06:07] VITALS: BP 113/61
[2020-07-23] MEDS: COMBIVENT RESPIMAT 100-20MCG INHALER 4GM INH SCH ×2 (06:12→20:00)
[2020-07-23 06:18] LABS: BASO % 0.3 % (0.0-1.0); EOS # 0.1 10^3/uL (0.0-0.5); EOS % 0.9 % (0.0-3.0); HEMATOCRIT 38.4 % (42.0-52.0); LYMPH # 0.9 10^3/uL (1.5-5.0); LYMPH % 9.1 % (24.0-44.0); MEAN CORPUSCULAR HEMOGLOBIN 29.3 pg (27.0-33.0); MEAN CORPUSCULAR HGB CONC 33.9 g/dl (32.0-36.5); MEAN CORPUSCULAR VOLUME 86.7 fl (80.0-96.0); MONO # 0.6 10^3/uL (0.0-0.8); MONO % 5.7 % (0.0-5.0); NEUTROPHILS # 8.1 10^3/uL (1.5-8.5); NEUTROPHILS % 82.5 % (36.0-66.0); PLATELET COUNT, AUTOMATED 272 10^3/uL (150-450); RED BLOOD COUNT 4.43 10^6/uL (4.30-6.10); WHITE BLOOD COUNT 9.8 10^3/uL (4.0-10.0)
[2020-07-23 06:27] LABS: D-DIMER QUANT 363.3 ng/ml (<500)
[2020-07-23 06:49] LABS: ALBUMIN 2.6 GM/DL (3.2-5.2); ALT/SGPT 114 U/L (12-78); BILIRUBIN,TOTAL 0.5 MG/DL (0.2-1.0); BLOOD UREA NITROGEN 19 MG/DL (7-18); C REACTIVE PROTEIN QUANTITATIV 3.83 MG/DL (0.00-0.30); CALCIUM LEVEL 8.7 MG/DL (8.5-10.1); CARBON DIOXIDE LEVEL 28 MEQ/L (21-32); CHLORIDE LEVEL 102 MEQ/L (98-107); CREATININE FOR GFR 0.87 MG/DL (0.70-1.30); GLOMERULAR FILTRATION RATE > 60.0 (>56); GLUCOSE, FASTING 209 MG/DL (70-100); LDH LACTATE DEHYDROGENASE 236 U/L (87-241); NT-PRO BNP 179 PG/ML (<125); POTASSIUM SERUM 4.3 MEQ/L (3.5-5.1); SODIUM LEVEL 136 MEQ/L (136-145)
[2020-07-23] MEDS: dexameTHASONE 4 MG/ML 1ML VIAL (J1100 PER 1MG) IV SCH (08:48)
[2020-07-23] MEDS: HumaLOG INSULIN (NovoLOG) PER UNIT SC SCH ×4 (08:49→22:30)
[2020-07-23] MEDS: ENOXAPARIN 60MG/0.6ML SYRINGE (J1650 PER 10MG) SC SCH ×2 (08:50→22:31)
[2020-07-23] MEDS: LEVEMIR (INSULIN DETEMIR) 1 UNITS/0.01ML SC SCH ×2 (08:50→22:31)
[2020-07-23] MEDS: guaiFENesin ER 600 MG TAB PO SCH ×2 (08:51→22:30)
[2020-07-23] MEDS: SODIUM CHLORIDE NASAL 0.65% SPRAY BTL (OCEAN) SCH ×2 (08:51→22:31)
[2020-07-23] MEDS ORDERED: DOXYCYCLINE HYCLATE 100MG TABLET PO SCH (09:00)
[2020-07-23] MEDS ORDERED: CEFDINIR 300 MG CAP (OMNICEF) PO SCH (09:00)
[2020-07-23] MEDS ORDERED: LevoFLOXacin 500 MG TABLET PO SCH (11:00)
--- NOTE | 2020-07-23 11:49 | IPNPDOC ---
Text Note Date of Service The patient was seen on 07/23/20. NOTE Subjective: Patient is a 69-year-old male with a PMHx of IDDM2, LUCILA on CPAP, Obestiy, Hx of C. diff (s/p Vanco PO) who presented to the ER for a third time after experiencing shortness of breath. Patient was admitted 07/11 to 07/12; patient was found to have C. difficile colitis and was treated with vancomycin by mouth also had epididymitis and was treated with Levaquin. Patient had presented again on 07/13 to 07/21. Patient had received 6 days of dexam ethasone was able to be titrated down to room air and 2 L of oxygen with ambulation and was discharged home Patient was seen and examined at the bedside. Currently patient seen lying on his stomach. Reports his breathing is doing better. Reports a mild cough. Denies any nausea, vomiting, abdominal pain, diarrhea, or urinary discomfort. Objective: Vitals (See below) General: Lying on stomach while in bed, appears comfortable, AAOx3 HEENT: NC, AT CVS: +S1S2 Lungs: Fair air entry b/l, -w/r/r Abdomen: Soft, ND, NT Extremities: - Edema, - Calf tenderness Imaging: CXR 07/21 Diffuse bilateral infiltrates are again noted appearing quite similar to the prior exam. Heart mediastinum appear unchanged. IMPRESSION: Stable diffuse bilateral infiltrates. CTA Chest 07/21 1. No pulmonary embolism. 2. Extensive ground-glass opacities with superimposed consolidation and areas of intralobular septal thickening (?crazy-paving?) from both lungs, which has progressed compared to the prior CTA chest on 07/11/2020 and are in keeping with the patient's history of COVID-19 pneumonia. 3. Splenomegaly. Assessment and plan: Acute hypoxic respiratory failure - likely 2/2 atelectasis with COVID19 pneumonia - Currently patient reports that his symptoms are doing better than upon arrival - Patient is on 4-5 L of nasal cannula oxygen - Inflammatory markers are improving - Imaging noted above - Continue with dexamethasone (Day #3) - c/w incentive spirometry / prone positioning and symptomatic control Unlikely 2/2 superimposed bacterial pneumonia - Patient has received a seven-day course of Levaquin on his first admission - Has been on antibiotics for 4 days; will DC antibiotics today; PCT negative Right shoulder pain - Patient reports that he follows with orthopedic surgery - c/w Tramadol IDDM2 - c/w ISS and Levemir Hypothyroidism - TSH improving - c/w Levothyroxine HTN - BP well controlled - c/w Losartan Mood disorder - c/w paroxetine CAD - c/w Atorvastatin and ASA GERD - c/w Protonix DVT prophylaxis - c/w Lovenox weight-based prophylactic dosing Disposition: - Awaiting clinical improvement in oxygenation VS,Fishbone, I+O VS, Fishbone, I+O Laboratory Tests 07/23/20 06:02 Vital Signs Date Time Temp Pulse Resp B/P (MAP) Pulse Ox O2 Delivery O2 Flow Rate FiO2 07/23/20 10:00 94 Nasal Cannula 5.0 07/23/20 06:07 96.5 68 18 113/61 (78) 07/21/20 15:41 93 I&O- Last 24 Hours up to 6 AM 07/23/20 05:59 Intake Total 860 ml Output Total 1100 ml Balance -240 ml OSKAR FERRARO MD Jul 23, 2020 11:49
[2020-07-23 16:34] VITALS: O2SAT 96
[2020-07-23 22:00] VITALS: BP 122/58
[2020-07-23] MEDS: PANTOPRAZOLE 40MG TAB (PROTONIX) PO SCH (22:30)
[2020-07-23] MEDS: PARoxetine 20MG TABLET PO SCH (22:30)
[2020-07-23] MEDS: CETIRIZINE (ZyrTEC) 10 MG TAB PO SCH (22:30)
[2020-07-23] MEDS: ASPIRIN 81 MG CHEW TABLET PO SCH (22:30)
[2020-07-23] MEDS: ATORVASTATIN 20 MG TAB PO SCH (22:30)
[2020-07-23] MEDS: LOSARTAN 50MG TABLET PO SCH (22:30)
[2020-07-24] MEDS: traMADol 50 MG TAB PO PRN ×2 (03:23→21:34)
[2020-07-24 03:58] VITALS: BP 114/53
[2020-07-24] MEDS: LEVOTHYROXINE 125MCG TABLET (0.125MG) PO SCH (05:41)
[2020-07-24] MEDS: COMBIVENT RESPIMAT 100-20MCG INHALER 4GM INH SCH ×2 (07:45→20:00)
[2020-07-24 08:00] VITALS: BP 110/53
[2020-07-24 08:02] LABS: BASO % 0.2 % (0.0-1.0); EOS # 0.1 10^3/uL (0.0-0.5); EOS % 1.1 % (0.0-3.0); HEMATOCRIT 37.3 % (42.0-52.0); HEMOGLOBIN 12.8 g/dl (13.5-17.5); LYMPH # 1.1 10^3/uL (1.5-5.0); LYMPH % 11.7 % (24.0-44.0); MEAN CORPUSCULAR HEMOGLOBIN 30.5 pg (27.0-33.0); MEAN CORPUSCULAR HGB CONC 34.3 g/dl (32.0-36.5); MEAN CORPUSCULAR VOLUME 88.8 fl (80.0-96.0); MONO # 0.6 10^3/uL (0.0-0.8); MONO % 6.6 % (0.0-5.0); NEUTROPHILS # 7.8 10^3/uL (1.5-8.5); NEUTROPHILS % 79.5 % (36.0-66.0); PLATELET COUNT, AUTOMATED 259 10^3/uL (150-450); WHITE BLOOD COUNT 9.8 10^3/uL (4.0-10.0)
[2020-07-24 08:21] LABS: D-DIMER QUANT 519.01 ng/ml (<500)
[2020-07-24 08:31] LABS: ALBUMIN 2.5 GM/DL (3.2-5.2); ALT/SGPT 103 U/L (12-78); BILIRUBIN,TOTAL 0.4 MG/DL (0.2-1.0); BLOOD UREA NITROGEN 21 MG/DL (7-18); C REACTIVE PROTEIN QUANTITATIV 1.76 MG/DL (0.00-0.30); CALCIUM LEVEL 8.3 MG/DL (8.5-10.1); CARBON DIOXIDE LEVEL 28 MEQ/L (21-32); CHLORIDE LEVEL 105 MEQ/L (98-107); CREATININE FOR GFR 0.92 MG/DL (0.70-1.30); GLOMERULAR FILTRATION RATE > 60.0 (>56); GLUCOSE, FASTING 242 MG/DL (70-100); LDH LACTATE DEHYDROGENASE 255 U/L (87-241); NT-PRO BNP 259 PG/ML (<125); SODIUM LEVEL 138 MEQ/L (136-145); TOTAL PROTEIN 5.6 GM/DL (6.4-8.2)
[2020-07-24] MEDS: dexameTHASONE 4 MG/ML 1ML VIAL (J1100 PER 1MG) IV SCH (09:01)
[2020-07-24] MEDS: HumaLOG INSULIN (NovoLOG) PER UNIT SC SCH ×4 (09:02→21:16)
[2020-07-24] MEDS: LEVEMIR (INSULIN DETEMIR) 1 UNITS/0.01ML SC SCH ×2 (09:02→21:15)
[2020-07-24] MEDS: guaiFENesin ER 600 MG TAB PO SCH ×2 (09:02→21:18)
[2020-07-24] MEDS: ENOXAPARIN 60MG/0.6ML SYRINGE (J1650 PER 10MG) SC SCH ×2 (09:03→21:17)
[2020-07-24] MEDS: SODIUM CHLORIDE NASAL 0.65% SPRAY BTL (OCEAN) SCH ×2 (09:03→21:17)
--- NOTE | 2020-07-24 11:30 | IPNPDOC ---
Text Note Date of Service The patient was seen on 07/24/20. NOTE Subjective: Patient is a 69-year-old male with a PMHx of IDDM2, LUCILA on CPAP, Obestiy, Hx of C. diff (s/p Vanco PO) who presented to the ER for a third time after experiencing shortness of breath. Patient was admitted 07/11 to 07/12; patient was found to have C. difficile colitis and was treated with vancomycin by mouth also had epididymitis and was treated with Levaquin. Patient had presented again on 07/13 to 07/21. Patient had received 6 days of dexam ethasone was able to be titrated down to room air and 2 L of oxygen with ambulation and was discharged home Patient was seen and examined at the bedside. Patient reports that yesterday he was doing relatively well throughout the majority of the day, however, in the evening. He did try to ambulate and felt that he was short of breath. Patient denies any nausea, vomiting, abdominal pain, diarrhea, or urinary discomfort. Objective: Vitals (See below) General: Patient is lying on his side appears to be comfortable, in no acute distress, is awake, alert and oriented 3 HEENT: NC, AT CVS: +S1S2 Lungs: There appears to be fair air entry bilaterally without any auscultated rhonchi, crackles or wheezing Abdomen: Soft, nondistended and nontender Extremities: No evidence of lower extremity edema, - Calf tenderness Imaging: CXR 07/21 Diffuse bilateral infiltrates are again noted appearing quite similar to the prior exam. Heart mediastinum appear unchanged. IMPRESSION: Stable diffuse bilateral infiltrates. CTA Chest 07/21 1. No pulmonary embolism. 2. Extensive ground-glass opacities with superimposed consolidation and areas of intralobular septal thickening (?crazy-paving?) from both lungs, which has progressed compared to the prior CTA chest on 07/11/2020 and are in keeping with the patient's history of COVID-19 pneumonia. 3. Splenomegaly. Assessment and plan: Acute hypoxic respiratory failure - likely 2/2 atelectasis with COVID19 pneumonia - Patient reports that he feels short of breath with ambulation ports a mild cough - Patient is on 4-5 L of nasal cannula oxygen; has remained essentially unchanged over the last 2 days - Inflammatory markers continue to be downtrending - Imaging noted above - Continue with dexamethasone (Day #4) - c/w incentive spirometry / prone positioning and symptomatic control - Will start PT today Unlikely 2/2 superimposed bacterial pneumonia - Patient has received a seven-day course of Levaquin on his first admission - Has been on antibiotics for 4 days; will DC antibiotics today; PCT negative Right shoulder pain - Patient reports that he follows with orthopedic surgery - c/w Tramadol IDDM2 - c/w ISS and Levemir Hypothyroidism - TSH improving - c/w Levothyroxine HTN - BP well controlled - c/w Losartan Mood disorder - c/w paroxetine CAD - c/w Atorvastatin and ASA GERD - c/w Protonix DVT prophylaxis - c/w Lovenox weight-based prophylactic dosing Disposition: - Awaiting clinical improvement in oxygenation - Called and discussed case with his ; Beverley Reyna; addressed all her questions and concerns VS,Abby, I+O VS, Abby, I+O Laboratory Tests 07/24/20 07:39 Vital Signs Date Time Temp Pulse Resp B/P (MAP) Pulse Ox O2 Delivery O2 Flow Rate FiO2 07/24/20 09:00 5.0 07/24/20 08:00 98.5 65 18 110/53 (72) 95 Nasal Cannula 07/21/20 15:41 93 I&O- Last 24 Hours up to 6 AM 07/24/20 06:00 Intake Total 1900 ml Output Total 400 ml Balance 1500 ml OSKAR FERRARO MD Jul 24, 2020 11:30
[2020-07-24 16:00] VITALS: BP 134/63
[2020-07-24 16:08] LABS: MYCOPLASMA PNEUMONIAE IgG <100 U/mL (0-99); MYCOPLASMA PNEUMONIAE IgM <770 U/mL (0-769)
[2020-07-24 19:57] VITALS: BP 136/68
[2020-07-24] MEDS: ASPIRIN 81 MG CHEW TABLET PO SCH (21:17)
[2020-07-24] MEDS: PARoxetine 20MG TABLET PO SCH (21:17)
[2020-07-24] MEDS: CETIRIZINE (ZyrTEC) 10 MG TAB PO SCH (21:18)
[2020-07-24] MEDS: LOSARTAN 50MG TABLET PO SCH (21:18)
[2020-07-24] MEDS: ATORVASTATIN 20 MG TAB PO SCH (21:18)
[2020-07-24] MEDS: PANTOPRAZOLE 40MG TAB (PROTONIX) PO SCH (21:18)
[2020-07-25 04:35] VITALS: BP 124/72
[2020-07-25] MEDS: LEVOTHYROXINE 125MCG TABLET (0.125MG) PO SCH (05:26)
[2020-07-25 05:30] VITALS: BP 108/52
[2020-07-25 07:25] LABS: BASO % 0.2 % (0.0-1.0); EOS # 0.1 10^3/uL (0.0-0.5); EOS % 1.2 % (0.0-3.0); HEMATOCRIT 38.2 % (42.0-52.0); LYMPH # 1.4 10^3/uL (1.5-5.0); LYMPH % 14.3 % (24.0-44.0); MEAN CORPUSCULAR VOLUME 88.2 fl (80.0-96.0); MONO # 0.7 10^3/uL (0.0-0.8); MONO % 7.4 % (0.0-5.0); NEUTROPHILS # 7.2 10^3/uL (1.5-8.5); NEUTROPHILS % 75.9 % (36.0-66.0); PLATELET COUNT, AUTOMATED 246 10^3/uL (150-450); RED BLOOD COUNT 4.33 10^6/uL (4.30-6.10); WHITE BLOOD COUNT 9.4 10^3/uL (4.0-10.0)
[2020-07-25 07:39] LABS: FIBRINOGEN 529 MG/DL (221-452)
[2020-07-25] MEDS: COMBIVENT RESPIMAT 100-20MCG INHALER 4GM INH SCH ×2 (07:59→20:40)
[2020-07-25 08:03] LABS: ALBUMIN 2.5 GM/DL (3.2-5.2); ALT/SGPT 87 U/L (12-78); BILIRUBIN,TOTAL 0.7 MG/DL (0.2-1.0); BLOOD UREA NITROGEN 20 MG/DL (7-18); C REACTIVE PROTEIN QUANTITATIV 1.32 MG/DL (0.00-0.30); CALCIUM LEVEL 8.8 MG/DL (8.5-10.1); CARBON DIOXIDE LEVEL 31 MEQ/L (21-32); CHLORIDE LEVEL 103 MEQ/L (98-107); GLOMERULAR FILTRATION RATE > 60.0 (>56); GLUCOSE, FASTING 181 MG/DL (70-100); LDH LACTATE DEHYDROGENASE 220 U/L (87-241); NT-PRO BNP 217 PG/ML (<125); POTASSIUM SERUM 4.1 MEQ/L (3.5-5.1); SODIUM LEVEL 136 MEQ/L (136-145); TOTAL PROTEIN 6.5 GM/DL (6.4-8.2)
[2020-07-25 08:06] LABS: D-DIMER QUANT < 270 ng/ml (<500)
[2020-07-25] MEDS: ENOXAPARIN 60MG/0.6ML SYRINGE (J1650 PER 10MG) SC SCH ×2 (08:41→21:05)
[2020-07-25] MEDS: dexameTHASONE 4 MG/ML 1ML VIAL (J1100 PER 1MG) IV SCH (08:41)
[2020-07-25] MEDS: guaiFENesin ER 600 MG TAB PO SCH ×2 (08:41→21:04)
[2020-07-25] MEDS: LEVEMIR (INSULIN DETEMIR) 1 UNITS/0.01ML SC SCH ×2 (08:42→21:08)
[2020-07-25] MEDS: SODIUM CHLORIDE NASAL 0.65% SPRAY BTL (OCEAN) SCH ×2 (08:43→21:05)
[2020-07-25] MEDS: HumaLOG INSULIN (NovoLOG) PER UNIT SC SCH ×4 (08:43→21:07)
[2020-07-25 13:19] VITALS: BP 115/62
--- NOTE | 2020-07-25 17:19 | IPNPDOC ---
Date Seen The patient was seen on 07/25/20. Progress Note SUBJECTIVE: 69-year-old male with a PMHx of IDDM2, LUCILA on CPAP, Obestiy, Hx of C. diff (s/p Vanco PO) who presented to the ER for a third time after experiencing shortness of breath. Patient was admitted between and was found to have C. difficile colitis was treated with by mouth vancomycin as well as epididymitis seizures treated with Levaquin. The patient had presented again to [facility] . 4. Hypoxia secondary to cold. And was treated with 6 days of dexamethasone and was able to be discharged on 2 L of oxygen with ambulation to home. The patient returns to the hospital with persistent shortness of breath. OBJECTIVE PHYSICAL EXAMINATION: VITAL SIGNS: please see below General: NAD, comfortable HEENT: PERRLA, EOMI, sclerae clear Neck: supple, normal ROM, no JVD Respiratory: Mild crackles bilateral lung bases. Otherwise clear CVS: RRR, normal S1, S2, no murmurs Abdo: soft, no masses, no hepatosplenomegaly, BS+, no rebound tenderness Extremities: no edema, pulses 2+ MSK: no joint deformities, normal ROM Neuro: no focal neuro deficits, moving all 4 extremities, CN2-12 intact. Strength 5/5 in all 4 extremities. No nystagmus. Psych: calm, cooperative, AAO x 3 LABORATORY DATA, IMAGING STUDIES, MICROBIOLOGY: Please see below. CXR 07/21 Diffuse bilateral infiltrates are again noted appearing quite similar to the prior exam. Heart mediastinum appear unchanged. IMPRESSION: Stable diffuse bilateral infiltrates. CTA Chest 07/21 1. No pulmonary embolism. 2. Extensive ground-glass opacities with superimposed consolidation and areas of intralobular septal thickening (?crazy-paving?) from both lungs, which has progressed compared to the prior CTA chest on 07/11/2020 and are in keeping with the patient's history of COVID-19 pneumonia. 3. Splenomegaly. DVT prophylaxis ordered?: Lovenox or 0.5 mg/kg every 12 hours subcutaneous. ASSESSMENT AND PLAN: Acute hypoxic respiratory failure - likely 2/2 atelectasis with COVID19 pneumonia - Patient reports that he feels short of breath with ambulation ports a mild cough - Patient is on 4-5 L of nasal cannula oxygen; has remained essentially unchanged over the last 2 days - Inflammatory markers continue to be downtrending - Imaging noted above - Continue with dexamethasone (Day #5) - c/w incentive spirometry / prone positioning and symptomatic control - PT eval ongoing Unlikely 2/2 superimposed bacterial pneumonia - Patient has received a seven-day course of Levaquin on his first admission - Has been on antibiotics for 4 days; Stopped abx on 07/25/20; PCT negative Right shoulder pain - Patient reports that he follows with orthopedic surgery - c/w Tramadol IDDM2 - c/w ISS and Levemir - discussed with his Yogesh Reyna, confirmed patient takes levemir 60 units sc BID - will increased dose to 45 units overnight, will reassess in am. Hypothyroidism - TSH improving - c/w Levothyroxine HTN - BP well controlled - c/w Losartan Mood disorder - c/w paroxetine CAD - c/w Atorvastatin and ASA GERD - c/w Protonix DVT prophylaxis - c/w Lovenox weight-based prophylactic dosing Dispo: I expect DC in 24 hours. Patient has been stable on 4L NC. I spoke to patient's Beverley Reyna and have answered all questions in detail. VS, I&O, 24H, Fishbone Vital Signs/I&O Vital Signs Date Time Temp Pulse Resp B/P (MAP) Pulse Ox O2 Delivery O2 Flow Rate FiO2 07/25/20 13:19 97.7 81 20 115/62 (79) 92 Nasal Cannula 4.0 07/21/20 15:41 93 I&O- Last 24 Hours up to 6 AM 07/25/20 06:00 Intake Total 1560 ml Output Total 3050 ml Balance -1490 ml Laboratory Data 24H LABS Laboratory Tests 2 07/24/20 19:51: Bedside Glucose (Misc Panel) 353H 07/25/20 05:56: Bedside Glucose (Misc Panel) 193H 07/25/20 07:04: Immature Granulocyte % (Auto) 1.0, Neutrophils (%) (Auto) 75.9H, Lymphocytes (%) (Auto) 14.3L, Monocytes (%) (Auto) 7.4H, Eosinophils (%) (Auto) 1.2, Basophils (%) (Auto) 0.2, Neutrophils # (Auto) 7.2, Lymphocytes # (Auto) 1.4L, Monocytes # (Auto) 0.7, Eosinophils # (Auto) 0.1, Basophils # (Auto) 0.0, Nucleated Red Blood Cells % (auto) 0.0, Fibrinogen 529H, D-Dimer, Quantitative < 270, Anion Gap 2L, Glomerular Filtration Rate > 60.0, Calcium Level 8.8, Total Bilirubin 0.7#, Aspartate Amino Transf (AST/SGOT) 7, Alanine Aminotransferase (ALT/SGPT) 87H, Alkaline Phosphatase 101, Lactate Dehydrogenase 220, C-Reactive Protein, Quantitative 1.32H, NQ-Hmo-C-Type Natriuretic Peptide 217H, Total Protein 6.5, Albumin 2.5L, Albumin/Globulin Ratio 0.6, Procalcitonin 0.05 07/25/20 11:24: Bedside Glucose (Misc Panel) 306H CBC/BMP Laboratory Tests 07/25/20 07:04 Microbiology Microbiology 07/21/20 Blood Culture - Preliminary, Resulted No Growth after 72 hours. All specime... 07/21/20 Blood Culture - Preliminary, Resulted No Growth after 72 hours. All specime... GOGO FLORES MD Jul 25, 2020 17:19
[2020-07-25 19:59] VITALS: BP 115/66
[2020-07-25 20:00] VITALS: O2SAT 93
[2020-07-25] MEDS: ATORVASTATIN 20 MG TAB PO SCH (21:03)
[2020-07-25] MEDS: PANTOPRAZOLE 40MG TAB (PROTONIX) PO SCH (21:03)
[2020-07-25 21:04] VITALS: BP 115/66
[2020-07-25] MEDS: CETIRIZINE (ZyrTEC) 10 MG TAB PO SCH (21:04)
[2020-07-25] MEDS: PARoxetine 20MG TABLET PO SCH (21:04)
[2020-07-25] MEDS: LOSARTAN 50MG TABLET PO SCH (21:04)
[2020-07-25] MEDS: ASPIRIN 81 MG CHEW TABLET PO SCH (21:04)
[2020-07-25] MEDS: traMADol 50 MG TAB PO PRN (22:05)
[2020-07-26] VITALS: O2SAT 96
[2020-07-26 04:00] VITALS: O2SAT 96
[2020-07-26 04:15] VITALS: BP 105/56
[2020-07-26] MEDS: LEVOTHYROXINE 125MCG TABLET (0.125MG) PO SCH (06:04)
[2020-07-26 06:33] LABS: BASO % 0.3 % (0.0-1.0); EOS # 0.1 10^3/uL (0.0-0.5); EOS % 1.2 % (0.0-3.0); HEMATOCRIT 36.7 % (42.0-52.0); HEMOGLOBIN 12.6 g/dl (13.5-17.5); LYMPH # 1.6 10^3/uL (1.5-5.0); LYMPH % 17.4 % (24.0-44.0); MEAN CORPUSCULAR HEMOGLOBIN 29.9 pg (27.0-33.0); MEAN CORPUSCULAR HGB CONC 34.3 g/dl (32.0-36.5); MONO # 0.7 10^3/uL (0.0-0.8); MONO % 7.7 % (0.0-5.0); NEUTROPHILS # 6.7 10^3/uL (1.5-8.5); NEUTROPHILS % 72.2 % (36.0-66.0); PLATELET COUNT, AUTOMATED 237 10^3/uL (150-450); RED BLOOD COUNT 4.22 10^6/uL (4.30-6.10); WHITE BLOOD COUNT 9.3 10^3/uL (4.0-10.0)
[2020-07-26 06:53] LABS: ALBUMIN 2.6 GM/DL (3.2-5.2); ALT/SGPT 71 U/L (12-78); BILIRUBIN,TOTAL 0.7 MG/DL (0.2-1.0); BLOOD UREA NITROGEN 21 MG/DL (7-18); C REACTIVE PROTEIN QUANTITATIV 0.92 MG/DL (0.00-0.30); CALCIUM LEVEL 8.5 MG/DL (8.5-10.1); CARBON DIOXIDE LEVEL 32 MEQ/L (21-32); CHLORIDE LEVEL 101 MEQ/L (98-107); CREATININE FOR GFR 0.83 MG/DL (0.70-1.30); GLOMERULAR FILTRATION RATE > 60.0 (>56); GLUCOSE, FASTING 240 MG/DL (70-100); LDH LACTATE DEHYDROGENASE 201 U/L (87-241); NT-PRO BNP 158 PG/ML (<125); SODIUM LEVEL 135 MEQ/L (136-145); TOTAL PROTEIN 5.7 GM/DL (6.4-8.2)
[2020-07-26 07:14] LABS: FIBRINOGEN 494 MG/DL (221-452)
[2020-07-26 07:21] LABS: D-DIMER QUANT < 270 ng/ml (<500)
[2020-07-26] MEDS: COMBIVENT RESPIMAT 100-20MCG INHALER 4GM INH SCH (08:00)
[2020-07-26 08:20] VITALS: BP 114/55
[2020-07-26] MEDS: guaiFENesin ER 600 MG TAB PO SCH (09:07)
[2020-07-26] MEDS: dexameTHASONE 4 MG/ML 1ML VIAL (J1100 PER 1MG) IV SCH (09:07)
[2020-07-26] MEDS: LEVEMIR (INSULIN DETEMIR) 1 UNITS/0.01ML SC SCH (09:08)
[2020-07-26] MEDS: ENOXAPARIN 60MG/0.6ML SYRINGE (J1650 PER 10MG) SC SCH (09:08)
[2020-07-26] MEDS: SODIUM CHLORIDE NASAL 0.65% SPRAY BTL (OCEAN) SCH (09:08)
[2020-07-26] MEDS: HumaLOG INSULIN (NovoLOG) PER UNIT SC SCH ×2 (09:09→12:46)
[2020-07-26] MEDS ORDERED: VENTAER INH (13:36)
[2020-07-26] MEDS ORDERED: BASA100I SC (13:36)
[2020-07-26] MEDS ORDERED: DEXA6TAB PO (13:36)
[2020-07-26] MEDS ORDERED: ALBU83IN NEB (13:36)
[2020-07-26] MEDS ORDERED: TESS100C PO (13:36)
--- NOTE | 2020-07-26 13:38 | DS.PDOC ---
Discharge Summary General Date of Admission Jul 21, 2020 at 17:30 Date of Discharge 07/26/20 Discharge Summary PROCEDURES PERFORMED DURING STAY: [None]. ADMITTING DIAGNOSES: Acute hypoxic respiratory failure secondary to Covid 19 Possible superimposed bacterial pneumonia Insulin-dependent type 2 diabetes Hypothyroidism Hypertension GERD Coronary artery disease Mood disorder DISCHARGE DIAGNOSES: Acute hypoxic respiratory failure secondary to Covid 19 Insulin-dependent type 2 diabetes Hypothyroidism Hypertension GERD Coronary artery disease Mood disorder COMPLICATIONS/CHIEF COMPLAINT: Covid-19 Hypoxia. HISTORY OF PRESENT ILLNESS: Kuldip Reyna is a 59 YO M with history of insulin-dependant DM2, LUCILA noncompliant with home CPAP, hypothyroidism who presents for third hospitalization in the past two months since he's been diagnosed with Covid 19. His first hospitalization was from 07/11/2020 until 07/12/2020 where he was found to be Covid positive as well as C. difficile, and epididymitis. He was discharged home on oral vancomycin and oral Levaquin for the C. difficile and epididymitis, respectively. On that hospitalization he was given only a one-time dose of 125 mg Solu-Medrol. A CT angiography of the chest on 07/11/2020 found no evidence of acute, central pulmonary emboli, but perip heral pulmonary arterial evaluation was limited by motion artifact. On his subsequent admission, from 07/13/2020 until 07/19/2020 the patient was treated with 6 days of dexamethasone and was placed on BiPAP as his saturations initially dropped. At the time of discharge he had been titrated down to 2 L oxygen and was sent home with oxygen and a Combivent inhaler. The patient reports once he went home he simply slept and continue to use the oxygen. He states he was using his incentive spirometer and Combivent inhaler but does not believe he received any the medication during inhalation. When home health visited him today he was found to require 6 L of oxygen. Upon his presentation to the ED, he states he feels more short of breath, worse with activity. He states that he has not had any fevers or chills recently, nor has he had any nausea/vomiting/diarrhea. He has not been eating much. HOSPITAL COURSE: Acute hypoxic respiratory failure - likely 2/2 atelectasis with COVID19 pneumonia - Patient is on 3-4L NC, and has been stable. - home O2 has been arranged. Home health services provided. - Inflammatory markers continue to be downtrending - Continue with dexamethasone 6 mg (to complete 14 days), to taper as outpatient. - c/w incentive spirometry, encorage prone positioning and symptomatic control at home - plan was discussed with patient's spouse, Beverley Reyna, and refills for nebulizer machine provided - PT cleared patient for DC. Walker provided on DC. Unlikely 2/2 superimposed bacterial pneumonia - Patient has received a seven-day course of Levaquin on his first admission - Has been on antibiotics for 4 days; Stopped abx on 07/25/20; procalcitonin negative Right shoulder pain - Patient reports that he follows with orthopedic surgery - c/w Tramadol IDDM2 - c/w ISS and Levemir - discussed with his Beverley Reyna, confirmed patient takes levemir 60 units sc BIB - will continue at 45 units bid, with titration on outpatient basis. Hypothyroidism - TSH improving - c/w Levothyroxine HTN - BP well controlled - c/w Losartan Mood disorder - c/w paroxetine CAD - c/w Atorvastatin and ASA GERD - c/w Protonix DVT prophylaxis - c/w Lovenox weight-based prophylactic dosing DISCHARGE MEDICATIONS: Please see below. ALLERGIES: Please see below. PHYSICAL EXAMINATION ON DISCHARGE: VITAL SIGNS: please see below General: NAD, comfortable HEENT: PERRLA, EOMI, sclerae clear Neck: supple, normal ROM, no JVD Respiratory: Discharge her bilaterally. No wheezes, no rales CVS: RRR, normal S1, S2, no murmurs Abdo: soft, no masses, no hepatosplenomegaly, BS+, no rebound tenderness Extremities: no edema MSK: no joint deformities, normal ROM Neuro: no focal neuro deficits, moving all 4 extremities, CN2-12 intact. Strength 5/5 in all 4 extremities. No nystagmus. Psych: calm, cooperative, AAO x 3 LABORATORY DATA: Please see below. IMAGING: CTA chest (07/21/20): 1. No pulmonary embolism. 2. Extensive ground-glass opacities with superimposed consolidation and areas of intralobular septal thickening (?crazy-paving?) from both lungs, which has progressed compared to the prior CTA chest on 07/11/2020 and are in keeping with the patient's history of COVID-19 pneumonia. 3. Splenomegaly. CXR (07/21/20): Diffuse bilateral infiltrates are again noted appearing quite similar to the prior exam. Heart mediastinum appear unchanged. IMPRESSION: Stable diffuse bilateral infiltrates. PROGNOSIS: Good ACTIVITY: As tolerated DIET: Consistent carbohydrate DISCHARGE PLAN: She'll shown with 4 L of home oxygen as well as home health services provided by [facility]. Follow-up with primary care doctor within 3-5 days. Patient has oxygen suppository delivered to the house from prior admission. DISPOSITION: Home with home services DISCHARGE INSTRUCTIONS: . Please follow-up with your primary care doctor within 3-5 days . Please taking medications as prescribed. Provided with albuterol nebulizer as well as dexamethasone. . If you develop bleeding, chest pain, shortness of breath, seizures, nausea, f sascha, or otherwise worsening of your symptoms, please call 911 or return to the nearest emergency room DISCHARGE CONDITION: Stable. Afebrile. Saturating 95% on 4 L of nasal cannula. Oxygen provided on discharge TIME SPENT ON DISCHARGE: 35 minutes Vital Signs/I&Os Vital Signs Date Time Temp Pulse Resp B/P (MAP) Pulse Ox O2 Delivery O2 Flow Rate FiO2 07/26/20 09:00 3.0 07/26/20 08:20 98.2 65 17 114/55 (74) 95 Nasal Cannula 07/21/20 15:41 93 I&O- Last 24 Hours up to 6 AM 07/26/20 06:00 Intake Total 600 ml Output Total 875 ml Balance -275 ml Laboratory Data Labs 24H Laboratory Tests 2 07/25/20 17:03: Bedside Glucose (Misc Panel) 336H 07/25/20 19:53: Bedside Glucose (Misc Panel) 356H 07/25/20 23:04: Bedside Glucose (Misc Panel) 435H 07/26/20 06:06: Immature Granulocyte % (Auto) 1.2, Neutrophils (%) (Auto) 72.2H, Lymphocytes (%) (Auto) 17.4L, Monocytes (%) (Auto) 7.7H, Eosinophils (%) (Auto) 1.2, Basophils (%) (Auto) 0.3, Neutrophils # (Auto) 6.7, Lymphocytes # (Auto) 1.6, Monocytes # (Auto) 0.7, Eosinophils # (Auto) 0.1, Basophils # (Auto) 0.0, Nucleated Red Blo od Cells % (auto) 0.0, Fibrinogen 494H, D-Dimer, Quantitative < 270, Anion Gap 2L, Glomerular Filtration Rate > 60.0, Calcium Level 8.5, Total Bilirubin 0.7, Aspartate Amino Transf (AST/SGOT) 5L, Alanine Aminotransferase (ALT/SGPT) 71, Alkaline Phosphatase 107, Lactate Dehydrogenase 201, C-Reactive Protein, Quantitative 0.92H, RJ-Rce-E-Type Natriuretic Peptide 158H, Total Protein 5.7L, Albumin 2.6L, Albumin/Globulin Ratio 0.8 07/26/20 11:40: Bedside Glucose (Misc Panel) 266H CBC/BMP Laboratory Tests 07/26/20 06:06 FSBS Laboratory Tests Test 07/25/20 17:03 07/25/20 19:53 07/25/20 23:04 07/26/20 11:40 Range/Units Bedside Glucose (Misc Panel) 336 356 435 266 70-105 MG/DL Microbiology Microbiology 07/21/20 Blood Culture - Preliminary, Resulted No Growth after 72 hours. All specime... 07/21/20 Blood Culture - Preliminary, Resulted No Growth after 72 hours. All specime... Discharge Medications Scheduled Aspirin (Aspirin) 81 Mg Chw, 81 MG PO QHS, (Reported) Atorvastatin Calcium (Atorvastatin Calcium) 40 Mg Tablet, 40 MG PO QHS, (Reported) Cetirizine HCl (Cetirizine HCl) 10 Mg Tablet, 10 MG PO QHS, (Reported) Cholecalciferol (Vitamin D3) (Vitamin D3) 50 Mcg Capsule, 100 MCG PO DAILY, (Reported) Dexamethasone (Dexamethasone) 6 Mg Tablet, 6 MG PO ONCE Dulaglutide (Trulicity) 1.5 Mg/0.5 Ml Pen.injctr, 1.5 MG IM QWEEK, (Reported) FRIDAY Insulin Glargine,Hum.rec.anlog (Basaglar Kwikpen U-100) 100 Unit/1 Ml Insuln.pen, 45 UNIT SC BID Ipratropium/Albuterol Sulfate (Combivent Respimat 20-100 Mcg) 4 Gm Mist.inhal, 2 PUFF INH TID, (Reported) Lactobacillus 3/Fos/Pantethine (Probiotic & Acidophilus Cap) 1 Each Capsule, 1 CAP PO DAILY, (Reported) Levothyroxine Sodium (Levo-T) 125 Mcg Tablet, 125 MCG PO DAILY, (Reported) Losartan Potassium (Losartan Potassium) 100 Mg Tablet, 100 MG PO QHS, (Reported) Pantoprazole Sodium (Pantoprazole Sodium) 40 Mg Tablet.dr, 40 MG PO QHS, (Reported) Paroxetine HCl (Paroxetine HCl) 20 Mg Tab, 20 MG PO QHS, (Reported) Ubidecarenone (Coenzyme Q10) 100 Mg Cap, 200 MG PO BID, (Reported) Scheduled PRN Acetaminophen (Acetaminophen) 500 Mg Tablet, 1,000 MG PO Q8H PRN for PAIN, (Reported) Albuterol Sulf (Albuterol Sulfate) 2.5 Mg/3 Ml Vial.neb, 1 VIAL NEB Q4HP PRN for wheezing Albuterol Sulfate (Ventolin Hfa) 18 Gm Hfa.aer.ad, 2 PUFFS INH QID PRN for SOB/WHEEZING Benzonatate (Tessalon Perle) 100 Mg Capsule, 100 MG PO TID PRN for COUGH Insulin Lispro (Admelog Solostar) 100 Unit/1 Ml Insuln.pen, 1 DOSE SC ASDIRECTED PRN for SLIDING SCALE, (Reported) Nitroglycerin (Nitrostat) 0.4 Mg Subl, 0.4 MG SL NITRO PRN for CHEST PAIN, (Reported) Tramadol HCl (Tramadol HCl) 50 Mg Tablet, 50 MG PO Q8H PRN for PAIN, (Reported) Allergies Coded Allergies: Sulfa (Sulfonamide Antibiotics) (Verified Allergy, Severe, ANAPHYLAXIS, 07/21/20) bill moore's slough (Verified Allergy, Severe, ANAPHYLAXIS, 07/21/20) amoxicillin (Verified Allergy, Unknown, 07/21/20) cefdinir (Verified Allergy, Unknown, 07/21/20) clavulanic acid (Verified Allergy, Unknown, 07/21/20) pseudoephedrine (Verified Adverse Reaction, Severe, high bp, 07/21/20) lisinopril (Verified Adverse Reaction, Intermediate, BRADYKININ COUGH, 07/21/20) GOGO FLORES MD Jul 26, 2020 13:38
[2020-07-26 16:08] LABS: BODY FLUID CULTURE Not indicated. (.); LEGIONELLA ANTIGEN URINE Negative (Negative); ORGANISM ID Not indicated. (.); SPECIMEN SOURCE Urine (.); URINE STREP PNEUMONIAE ANTIGEN Negative (Negative)
== END 2020-07-26 17:27 | disposition home health service (06) | DRG 137 ==
LOC: M ED 15:28 → M ED INP 17:30 → M 4MAIN 23:00
PROVIDERS: ADMIT Internal Medicine; ATTEND Family Medicine
DX: U07.1 COVID-19 (principal); J96.01 Acute respiratory failure with hypoxia; J12.89 Other viral pneumonia; E11.9 Type 2 diabetes mellitus without complications; G47.33 Obstructive sleep apnea (adult) (pediatric); E03.9 Hypothyroidism, unspecified; K21.9 Gastro-esophageal reflux disease without esophagitis; I10 Essential (primary) hypertension; E66.9 Obesity, unspecified; E78.5 Hyperlipidemia, unspecified; I25.10 Atherosclerotic heart disease of native coronary artery without angina pectoris; F17.220 Nicotine dependence, chewing tobacco, uncomplicated; M25.541 Pain in joints of right hand; I71.4 Abdominal aortic aneurysm, without rupture; I44.7 Left bundle-branch block, unspecified; J98.11 Atelectasis; F39 Unspecified mood [affective] disorder; Z90.49 Acquired absence of other specified parts of digestive tract; Z79.82 Long term (current) use of aspirin; Z79.4 Long term (current) use of insulin; Z79.899 Other long term (current) drug therapy; Z88.2 Allergy status to sulfonamides; Z88.1 Allergy status to other antibiotic agents; Z88.0 Allergy status to penicillin; Z88.8 Allergy status to other drugs, medicaments and biological substances; Z68.34 Body mass index [BMI] 34.0-34.9, adult

== ENCOUNTER → 2020-09-06 | Outpatient (CLI) | payer OTHER ==
[~2020-09-06] MED LIST changes: +ACET-683 PO; +ALBU83IN NEB; +DEXA6TAB PO; +VENTAER INH; -VITA-122; +VITA-168
[2020-09-06 16:15] LABS: BASO # 0.1 10^3/uL (0.0-0.2); EOS # 0.2 10^3/uL (0.0-0.5); EOS % 3.3 % (0.0-3.0); HEMATOCRIT 38.3 % (42.0-52.0); HEMOGLOBIN 12.9 g/dl (13.5-17.5); LYMPH # 2.1 10^3/uL (1.5-5.0); LYMPH % 34.1 % (24.0-44.0); MEAN CORPUSCULAR HEMOGLOBIN 29.9 pg (27.0-33.0); MEAN CORPUSCULAR HGB CONC 33.7 g/dl (32.0-36.5); MEAN CORPUSCULAR VOLUME 88.9 fl (80.0-96.0); MONO # 0.5 10^3/uL (0.0-0.8); NEUTROPHILS # 3.3 10^3/uL (1.5-8.5); NEUTROPHILS % 52.8 % (36.0-66.0); PLATELET COUNT, AUTOMATED 234 10^3/uL (150-450); RED BLOOD COUNT 4.31 10^6/uL (4.30-6.10); WHITE BLOOD COUNT 6.2 10^3/uL (4.0-10.0)
[2020-09-06 16:23] LABS: INR 1.02; PROTHROMBIN TIME 13.6 SECONDS (12.5-14.3)
[2020-09-06 16:38] LABS: ALBUMIN 3.9 GM/DL (3.2-5.2); ALT/SGPT 67 U/L (12-78); BILIRUBIN,DIRECT 0.2 MG/DL (0.0-0.2); BILIRUBIN,TOTAL 0.7 MG/DL (0.2-1.0); IMMUNOGLOBULIN A 99.5 MG/DL (70-400); IRON (FE) 85 UG/DL (65-175); PERCENT SATURATION 30.4 % (19.7-50.0); TOTAL IRON BINDING CAPACITY 280 UG/DL (250-450); TOTAL PROTEIN 6.9 GM/DL (6.4-8.2)
[2020-09-06 16:57] LABS: HEPATITIS B SURFACE ANTIGEN NEGATIVE (NEGATIVE)
[2020-09-06 17:24] LABS: HEPATITIS B CORE ANTIBODY IGM NEGATIVE (NEGATIVE); HEPATITIS C VIRUS ABY INDEX < 0.0 INDEX (<0.8)
[2020-09-06 17:27] LABS: HEPATITIS A ANTIBODY IGM NEGATIVE (NEGATIVE)
== END ==
LOC: M LAB 15:38
PROVIDERS: ATTEND Internal Medicine Gastroenterology
DX: R94.5 Abnormal results of liver function studies (principal)

== ENCOUNTER 2020-09-17 07:32 | Emergency (ER) | payer OTHER ==
[~2020-09-17] VITALS: Ht 177.8 cm; Wt 109.1 kg
[2020-09-17] MEDS ORDERED: CHLO125TA (07:51)
[2020-09-17] MEDS ORDERED: ASPIRIN 81 MG CHEW TABLET PO ONE (08:10)
[2020-09-17 08:15] LABS: BASO % 0.1 % (0.0-1.0); EOS # 0.3 10^3/uL (0.0-0.5); HEMATOCRIT 38.8 % (42.0-52.0); HEMOGLOBIN 13.4 g/dl (13.5-17.5); LYMPH # 1.7 10^3/uL (1.5-5.0); LYMPH % 22.6 % (24.0-44.0); MEAN CORPUSCULAR HEMOGLOBIN 30.2 pg (27.0-33.0); MEAN CORPUSCULAR HGB CONC 34.5 g/dl (32.0-36.5); MEAN CORPUSCULAR VOLUME 87.6 fl (80.0-96.0); MONO # 0.7 10^3/uL (0.0-0.8); MONO % 8.6 % (2.0-8.0); NEUTROPHILS % 64.3 % (36.0-66.0); PLATELET COUNT, AUTOMATED 187 10^3/uL (150-450); RED BLOOD COUNT 4.43 10^6/uL (4.30-6.10); WHITE BLOOD COUNT 7.7 10^3/uL (4.0-10.0)
[2020-09-17] MEDS: NITROGLYCERIN 0.4 MG SUBL TABLET SL PRN ×2 (08:21→08:30)
[2020-09-17 08:30] VITALS: BP 111/55
[2020-09-17] MEDS ORDERED: POTASSIUM CHLORIDE 10 MEQ SR TABLET PO ONE (08:30)
--- NOTE | 2020-09-17 08:37 | REP ---
INDICATION: CHEST PAIN COMPARISON: 07/21/2020 TECHNIQUE: Portable AP view of the chest FINDINGS: Lung guillaume demonstrate chronic changes with bilateral lower lobe airspace disease. Small right pleural effusion cannot be excluded. Further evaluation is limited by portable technique, underpenetration and poor inspiratory effort. IMPRESSION: Chronic changes with suspected superimposed perihilar and lower lobe infiltrates as well as possible small pleural effusion. <Electronically signed by Jayant Dodd > 09/17/20 0847
[2020-09-17 08:43] LABS: ALBUMIN 3.6 GM/DL (3.2-5.2); BILIRUBIN,DIRECT 0.3 MG/DL (0.0-0.2); BILIRUBIN,TOTAL 1.2 MG/DL (0.2-1.0); TOTAL PROTEIN 6.3 GM/DL (6.4-8.2)
[2020-09-17] MEDS ORDERED: ISOVUE-370 76% 100ML VIAL As Ordered ONE (08:56)
--- NOTE | 2020-09-17 09:26 | REP ---
INDICATION: CP COMPARISON: 07/21/2020 TECHNIQUE: Axial contrast enhanced images from the thoracic inlet to the upper abdomen using pulmonary embolus technique with multiplanar re-formations. 100 ml Isovue 370 intravenous contrast material administered without complication. Examination was followed by CT of the abdomen and pelvis. This CT examination was performed using the following dose reduction techniques: Automated exposure control, adjustment of mA and/or kv according to the patient's size, and use of iterative reconstruction technique. FINDINGS: Satisfactory enhancement of the pulmonary vasculature is achieved and no filling defects are identified to suggest pulmonary embolus. Further evaluation of the mediastinum demonstrates normal thoracic aorta. Atherosclerotic changes to the coronary arteries noted without cardiomegaly or pericardial effusion. The lung guillaume demonstrate chronic fibrosis along with scattered moderate to significant superimposed infiltrates which appear less dense and improved as compared with prior examination. No effusion or pneumothorax. Reactive mediastinal and hilar lymph nodes are identified. The tracheobronchial tree is patent. IMPRESSION: No evidence for pulmonary embolus. Bilateral multifocal primarily ground-glass infiltrates consistent with a continued multifocal pneumonia, but improved as compared with 07/21/2020 examination. <Electronically signed by Jayant Dodd > 09/17/20 0924
--- NOTE | 2020-09-17 09:28 | REP ---
INDICATION: intractable vomiting. COMPARISON: 07/11/2020 TECHNIQUE: Axial contrast-enhanced images from the lung bases to the pubic symphysis using 100 cc Isovue 370 intravenous contrast material. Coronal and sagittal reformations obtained. This CT examination was performed using the following dose reduction techniques: Automated exposure control, adjustment of mA and/or kv according to the patient's size, and the use of iterative reconstruction technique. FINDINGS: Liver, spleen, pancreas, gallbladder, bilateral adrenal glands and kidneys are normal. Mild symmetric perinephric stranding likely chronic. The enteric system including stomach, small, and large bowel appears normal. No evidence for obstruction or acute inflammatory process. Normal terminal ileum and cecum are identified in the right lower quadrant. Pelvis demonstrates normal bladder and age-appropriate prostate/seminal vesicles. No ascites. No free air. No intraperitoneal or retroperitoneal adenopathy. Abdominal aorta and vasculature appear normal. Musculoskeletal structures are intact and without acute osseous abnormality. IMPRESSION: No acute abdominopelvic pathology appreciated. Bibasilar pulmonary infiltrates. <Electronically signed by Jayant Dodd > 09/17/20 0930
[2020-09-17 15:15] VITALS: BP 116/55
--- NOTE | 2020-09-17 19:15 | ECGEPIP ---
[facility] - ED Test Date: 2020-09-17 Pat Name: MARILYN SHIELDS Department: Room: - Gender: Male Recreational Director: SEFERINO : 1960 Requested By: Hermelinda Dueñas Order Number: [id number] Reading MD: Prasanna Calloway Measurements Intervals [place] Rate: 81 P: 56 MS: 176 QRS: -26 QRSD: 114 T: 138 QT: 394 QTc: 457 Interpretive Statements Normal sinus rhythm LEFT ANTERIOR FASCICULAR BLOCK POOR R WAVE PROGRESSION Left ventricular hypertrophy with repolarization abnormality ( Lutz product ) SIMILAR TO 07/21/20 Electronically Signed on 09-17-2020 19:14:42 EDT by Prasanna Calloway
--- NOTE | 2020-09-17 19:23 | ECGEPIP ---
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
--- NOTE | 2020-09-18 12:34 | ED PDOC ---
Post-Departure Follow-Up cta chest and abd/p faxed to nika fernandez for fu Mary Taveras MD Sep 18, 2020 12:34
== END 2020-09-17 15:44 | disposition home or self-care (01) ==
LOC: M ED 07:32
DX: R07.9 Chest pain, unspecified (principal); R11.2 Nausea with vomiting, unspecified; R19.7 Diarrhea, unspecified; I11.9 Hypertensive heart disease without heart failure; E11.9 Type 2 diabetes mellitus without complications; E78.5 Hyperlipidemia, unspecified; J45.909 Unspecified asthma, uncomplicated; Z95.5 Presence of coronary angioplasty implant and graft
CPT/HCPCS: 71045; 71275; 74177; 80047; 80076; 83690; 83880; 85025; 93005; 93041; 94760; 99285; Q9967

== ENCOUNTER → 2020-09-27 | Outpatient (CLI) | payer OTHER ==
[~2020-09-27] MED LIST changes: +CHLO125TA
[2020-09-27 16:37] LABS: BASO # 0.1 10^3/uL (0.0-0.2); BASO % 1.3 % (0.0-1.0); EOS # 0.8 10^3/uL (0.0-0.5); EOS % 6.8 % (0.0-3.0); HEMATOCRIT 45.4 % (42.0-52.0); HEMOGLOBIN 15.4 g/dl (13.5-17.5); LYMPH # 2.9 10^3/uL (1.5-5.0); MEAN CORPUSCULAR HGB CONC 33.9 g/dl (32.0-36.5); MEAN CORPUSCULAR VOLUME 88.3 fl (80.0-96.0); MONO # 0.7 10^3/uL (0.0-0.8); MONO % 6.3 % (2.0-8.0); NEUTROPHILS # 6.5 10^3/uL (1.5-8.5); NEUTROPHILS % 58.6 % (36.0-66.0); PLATELET COUNT, AUTOMATED 250 10^3/uL (150-450); RED BLOOD COUNT 5.14 10^6/uL (4.30-6.10); WHITE BLOOD COUNT 11.1 10^3/uL (4.0-10.0)
[2020-09-27 17:10] LABS: ALBUMIN 4.2 GM/DL (3.2-5.2); ALT/SGPT 22 U/L (12-78); BILIRUBIN,TOTAL 0.6 MG/DL (0.2-1.0); BLOOD UREA NITROGEN 19 MG/DL (7-18); CALCIUM LEVEL 9.2 MG/DL (8.5-10.1); CARBON DIOXIDE LEVEL 27 MEQ/L (21-32); CHLORIDE LEVEL 107 MEQ/L (98-107); CREATININE FOR GFR 0.88 MG/DL (0.70-1.30); GLOMERULAR FILTRATION RATE > 60.0 (>56); GLUCOSE, FASTING 150 MG/DL (70-100); POTASSIUM SERUM 4.1 MEQ/L (3.5-5.1); SODIUM LEVEL 141 MEQ/L (136-145); TOTAL PROTEIN 7.2 GM/DL (6.4-8.2)
== END ==
LOC: M LAB 16:10
PROVIDERS: ATTEND Internal Medicine Cardiovascular Disease
DX: I11.9 Hypertensive heart disease without heart failure (principal); I25.10 Atherosclerotic heart disease of native coronary artery without angina pectoris; E78.00 Pure hypercholesterolemia, unspecified; I35.0 Nonrheumatic aortic (valve) stenosis

== ENCOUNTER → 2020-11-16 | Outpatient (CLI) | payer OTHER ==
[2020-11-16 16:16] LABS: BLOOD UREA NITROGEN 16 MG/DL (7-18); CALCIUM LEVEL 9.2 MG/DL (8.5-10.1); CARBON DIOXIDE LEVEL 28 MEQ/L (21-32); CHLORIDE LEVEL 109 MEQ/L (98-107); CREATININE FOR GFR 1.01 MG/DL (0.70-1.30); GLOMERULAR FILTRATION RATE > 60.0 (>56); GLUCOSE, FASTING 246 MG/DL (70-100); NT-PRO BNP 94 PG/ML (<125); SODIUM LEVEL 141 MEQ/L (136-145)
== END ==
LOC: M LAB 15:21
PROVIDERS: ATTEND Physician Assistant
DX: R06.02 Shortness of breath (principal)

== ENCOUNTER → 2021-01-15 | Outpatient (CLI) | payer OTHER ==
--- NOTE | 2021-01-15 10:17 | REP ---
INDICATION: ABN FINDINGS OF LUNG FIELD COMPARISON: 09/17/2020 through 08/24/2017 TECHNIQUE: Axial noncontrast images from the thoracic inlet to the upper abdomen with coronal and sagittal reformations. This CT examination was performed using the following dose reduction techniques: Automated exposure control, adjustment of mA and/or kv according to the patient's size, and use of iterative reconstruction technique. FINDINGS: The lung guillaume demonstrate moderate to advanced chronic COPD/emphysematous disease and basilar fibrosis/scarring. Previously noted infiltrates have resolved. A 5 mm noncalcified nodule in the periphery of the left lower lobe which was obscured by recent infiltrates is identified, but stable compared to 2018. No new acute consolidation, suspicious nodule or mass. No effusion. No pneumothorax. Tracheobronchial tree is patent. Nonspecific mediastinal lymph nodes measure up to approximately 10 mm. Atherosclerotic changes to the thoracic aorta and coronary arteries again noted and unchanged. No aortic aneurysm or cardiomegaly. No pericardial effusion. Surrounding musculoskeletal structures are intact. Limited upper abdomen demonstrates normal bilateral adrenal glands. IMPRESSION: Progressive COPD/emphysematous disease with moderate basilar fibrosis and scarring. Stable left lower lobe nodule unchanged compared to 2018. No acute mediastinal or pleuroparenchymal process otherwise appreciated. <Electronically signed by Jayant Dodd > 01/15/21 1011
== END ==
LOC: M RAD 09:16
PROVIDERS: ATTEND Nurse Practitioner Adult Health
DX: R91.1 Solitary pulmonary nodule (principal)

== ENCOUNTER → 2021-02-14 | Outpatient (CLI) | payer OTHER ==
--- NOTE | 2021-02-14 19:18 | REP ---
INDICATION: LT TESTIS SWELLING W/ PAIN ? TORSION. COMPARISON: None. TECHNIQUE: High-resolution bilateral scrotal sonography. FINDINGS: Testicular parenchyma is normal and homogeneous. No intratesticular mass lesion is seen on either side. Right testis measures 5.0 x 2.8 x 3.4 cm. Left testicular dimensions are 5.0 x 2.8 x 2.5 cm. Doppler flow is preserved to both testes. Resistive index by Doppler is measured at 0.59 on the right and 0.51 on the left. There is a 0.5 x 0.3 x 0.3 cm epididymal head cyst on the left. The right epididymis is unremarkable. There is a small small left-sided hydrocele. IMPRESSION: No significant abnormality. Small left-sided hydrocele and left-sided epididymal cyst. Otherwise negative. <Electronically signed by Rex Lara > 02/14/211914
[2021-02-15 11:08] LABS: APPEARANCE, URINE CLEAR (CLEAR); BACTERIA, URINE AUTO NEGATIVE (NEGATIVE); BILIRUBIN, URINE AUTO NEGATIVE (NEGATIVE); BLOOD, URINE BLOOD NEGATIVE (NEGATIVE); COLOR, URINE STRAW (YELLOW); GLUCOSE, URINE (UA) AUTO 3+ mg/dL (NEGATIVE); KETONE, URINE AUTO NEGATIVE (NEGATIVE); LEUKOCYTE ESTERASE, URINE AUTO NEGATIVE (NEGATIVE); NITRITE, URINE AUTO NEGATIVE (NEGATIVE); PROTEIN, URINE AUTO NEGATIVE (NEGATIVE); RBC, URINE AUTO 0 /HPF (0-3); SPECIFIC GRAVITY URINE AUTO 1.024 (1.002-1.035); SQUAMOUS EPITHELIAL CELL UR AU 0 /HPF (0-6); UROBILINOGEN, URINE AUTO 0.2 mg/dL (0.0-2.0); WBC, URINE AUTO 0 /HPF (0-3)
== END ==
LOC: M RAD 16:43
PROVIDERS: ATTEND Physician Assistant
DX: N50.89 Other specified disorders of the male genital organs (principal); N50.812 Left testicular pain

== ENCOUNTER 2021-04-18 21:22 | Inpatient (IN) | payer OTHER ==
[~2021-04-18] VITALS: Ht 180.3 cm; Wt 113.1 kg
[2021-04-18] MEDS: ROCURONIUM BROMIDE 50 MG/5 ML VIAL IV SCH ×2 (11:54→23:57)
--- OUTSIDE RECORDS SUMMARY | 2021-04-18 21:28 | CCD ---
Author Author [facility] Organization [facility] Address Unknown Phone Unavailable Care Team Providers Care Cable Dispatcher Name Role Phone Galilea Roblero Unavailable PROBLEMS Type Condition ICD9-CM Code [id number] Code Onset Dates Condition S tatus W/U Status Risk SNOMED Code Notes Problem Obstructive sleep apnea G47.33 Active confirmed 78156734 Problem Asthma J45.909 Active confirmed 420202396 Problem Type 2 diabetes mellitus with hyperglycemia E11.65 Active confirmed 527864406001992 Problem Other and unspecified hyperlipidemia E78.5 Act artemio confirmed 38072419 Problem Other asthma J45.998 Active confirmed 642049 001 Problem Hypothyroidism, unspecified E03.9 Active confirmed 82466239 Problem Obstructive sleep apnea (adult) (pediatric) G47.33 Active confirmed 84802461 Problem Hypothyroidism E03.9 Active confirmed 76911 008 Problem Essential (primary) hypertension I10 Active conf irmed 27556942 Problem Other anxiety states F41.1 Active confirmed 279962295 Problem Type 2 diabetes mellitus without complications E11 .9 Active confirmed 679891351 Problem Depression, unspecified depression type F32.9 Active confirmed 68258020 Problem 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, unspecified vessel or lesion type I25.110 Active confirmed 29370721 Problem LUCILA (obstructive sleep apnea) G47.33 Active confirm ed 74911636 Problem Other obesity E66.8 Active confirmed 208678 001 Problem Obesity E66.9 Active confirmed 763563068 Problem Right chronic serous otitis media H65.21 Active confirmed 261101888 Problem Other hyperlipidemia E78.4 Active confirmed 33585138 Problem DM w/o complication type II E11.9 Active confirmed 259117408 Problem Esophageal reflux K21.9 Active confirmed 23 3145673 Problem 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 Active confirmed 31944052 Problem Allergic rhinitis, unspecified J30.9 Active confir med 03527140 Problem Anxiety F41.9 Active confirmed 64417786 Problem 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 Active confirmed 21917917 ALLERGIES Allergen (clinical drug ingredient) Drug/Non Drug Allergy do cumented on EMR Reaction Allergy Type Onset Date Status pseudoephedrine Pseudoephedrine HCl([facility] Code:[address]- 61) hospitalized for hypertensive urgency Drug Allergy Active amoxicillin / clavulanate Augmentin([facility] Code:[address]-49) Unkn own Drug Allergy Active cefdinir Cefdinir([facility] Code:[address]-12) Tongue tingling Drug Freddie rgy Active [place] Anaphylaxis Non Drug Allergy Active Sulfa (for allergy use only) anaphylaxis Drug Allergy Active ENCOUNTERS from 1961 to 2021-03-08 Encounter Location Date Provider Diagnosis [address] [phone] [place] [address] Feb, 2021 Galilea Roblero Depression, unspecified depression type F32.9 ; Hypothyroidism, unspecified E03.9 ; Type 2 diabetes mellitus with hyperglycemia E11.65 ; Essential (primary) hypertension I10 ; Other asthma J45.998 ; Coronary artery disease involving comanche heart with unstable angina pectoris, unspecified vessel or lesion type I25.110 and Encounter for immunization Z23 IMMUNIZATIONS Vaccine Route Administration Date Status TDAP 0.5mL Boostrix IM Intramuscular Mar 06, 2021 Administere d Pneumococcal Adult 0.5mL Pneumovax 23 IM Intramuscular Mar 06 021 Administered Influenza 6mo & up Fluzone Unknown May 21, 2017 Refus ed Influenza 6mo & up Fluzone Unknown Aug 13, 2016 Other s SOCIAL HISTORY Tobacco Use: Social History Observation Description Date Details (start date - stop date) Never Smoker Sex Assigned At : Social History Observation Description Sex Assigned At Unknown Education: Question Answer Notes Level of Education: High School Audit Question Answer Notes Total Score: 2 Interpretation: Alcohol Education Language: Question Answer Notes Languages spoken: Cambodian Christian: Question Answer Notes Christian 08 Rastafari Sexual Hx: Question Answer Notes Had sex [...] REASON FOR REFERRAL No Information VITAL SIGNS Weight 255.12 lbs Feb, Weight-kg 115.72 kg Feb, Height 71 in Feb, BMI 35.58 kg/m2 Feb, Heart Rate 78 /min Feb, Respiratory Rate 18 /min Feb, Temperature 98.3 degrees Fahrenheit Feb, Oximetry 97 Feb, Blood pressure systolic 140 mm Hg Feb, Blood pressure diastolic 90 mm Hg Feb, MEDICATIONS Medication SIG (Take, Route, Frequency, Duration) Notes Start Da te End Date Status Dexamethasone 4 MG 1 tablet Orally Once a day for 7 day(s) Not-Taking Paxil 20 MG 1 tablet in the morning Orally Once a day for 30 Not-Taking Chlorthalidone 25 MG 1 tablet in the morning with food Orally Once a day for 30 day(s) /2 tab M-W-F Sep, Active Aspirin 81 81 MG 1 tablet Orally Once a day Active Pantoprazole Sodium 40 MG take one tablet by mouth jerri day orally Daily for 30 Active Naproxen 500 MG 1 tablet with food or milk a s needed Orally every 12 hrs for 5 day(s) November, Not-Taking traMADol HCl 50 MG 1 tablet as needed Orally QID prn pain for 5 days Feb, Active ZyrTEC Allergy 10 MG 1 tablet Orally Once a day for 30 Days Active Terbinafine HCl 1 % apply thick layer to groin e xternally three times a day for 30 Days Aug, Not-Taking Levaquin 500 MG 1 tablet Orally Once a day for 10 day(s) Feb, Not-Taking Levemir 100 UNIT/ML DX : 250 Subcutaneous 60 units twice daily Active tiZANidine HCl 4 MG 1 tablet as needed Orally Three times a day for 5 day(s) November, Not-Taking Combivent Respimat 20-100 mcg/act 1 puff Inhalation th ree times daily for 30 Days Active Paxil 20 MG 1 tablet in the morning Orally Once a day for 30 Days Active NovoLOG FlexPen 100 UNIT/ML sliding scale Subcutaneous between 10 and 28 units (Dr. Felipe) Active Flonase 50 MCG/ACT 1 spray in each nostril Nasally bid for 90 days Active Omeprazole 20 MG ONE BY MOUTH EVERY DAY for 30 Not-Taking Losartan Potassium 100 MG 1 tablet Orally Once a day Active Benzonatate 100 MG 1 capsule as needed Orally Three times a day Not-Taking Albuterol Sulfate HFA 108 (90 Base) MCG/ACT 1 puff as needed Inhalation every 6 hrs Active Dexamethasone 2 MG 1 tablet Orally after finish ing 4 mg tabs Once a day for 7 day(s) Jul, Not-Taking Trulicity 1.5 MG/0.5ML Subcutaneous Active Nitroglycerin 0.4 MG Sublingual Act artemio Tylenol Extra Strength 650 mg 1 tablet as needed Orally every 6 hrs as needed Active Admelog SoloStar 100 UNIT/ML as directed Subcutaneous sliding scale Active Levothyroxine Sodium 125 MCG 1 tablet on an empty stom ach in the morning Orally Once a day Active Albuterol Sulfate (2.5 MG/3ML) 0.083% 3 ml as needed Inhalation jerri ry 6 hrs Active Dicyclomine HCl 10 MG 1 capsules Orally every 6 ho urs as needed for irritable bowel symptoms Not-Taking Basaglar KwikPen 100 UNIT/ML 30 units Subcutaneous daily Active Vitamin D 1000 UNIT 4 tablet Orally Once a day Active Atorvastatin Calcium 40 MG 1 tablet Orally Once a day Active Probiotic Acidophilus - as directed Orally daily Active Zinc Oxide 12 % as directed Externally no percentage listed on d/c paper work Not-Taking Co Q 10 200 MG 1 capsule with a meal Orally BID Active May Have - as directed BP cuff: I10.0 - for 30 Days Jul Active PROCEDURES from 1961 to 2021-03-08 Procedure Date Ordered Result Body Site Imm: Pneumovax 23 0.5mL IM Pneumococcal 2021-03-06 N/A Imm: Boostrix 0.5mL IM TDAP 2021-03-06 N/A RESULTS No Results REASON FOR VISIT 4 month rescheduled from 01/18/2021 MEDICAL (GENERAL) HISTORY Type Description Date Medical History LUCILA/ CPAP Pulmonary (last seen 06/16)- n ot using Medical History DM2: [place] Medical History Hypothyroidism: [place] Medical History GERD : diet controlled Medical [...] Surgical History septoplasty [facility] Surgical History EGD/colonoscopy 2010 Surgical History Angioplasty- [place]: [place] 02/23 17 Surgical History Colonoscopy- Dr. Castellon. + adenoma: repe at due 04/2017 Surgical History Cardiac Stent: [facility] 08/2017 Hospitalization History asthma exacerbation 09/2011 Hospitalization History unstable angina, angioplasty [facility] Hospitalization History [place]- [place]/Stent 08/2017 Hospitalization History [facility]/V/D-Colitis 06/2020 Goals Section No Information Health Concerns No Information MEDICAL EQUIPMENT No Information MENTAL STATUS No Information FUNCTIONAL STATUS No Information ASSESSMENTS Encounter Date Diagnosis Assessment Notes Treatment Notes Treatm ent Clinical Notes Feb, Depression, unspecified depression type (ICD-10 - F32.9) stable. Feb, Hypothyroidism, unspecified (ICD-10 - E03.9) stable. Feb, Type 2 diabetes mellitus with hyperglycemia (ICD -10 - E11.65) Continue to maintain glycemic control. [facility] with [facility] Feb, Essential (primary) hypertension (ICD-10 - I10) Cardiology has been changing medications. Has appt in a few weeks for followup. Encouraged to keep that appt. Feb, Other asthma (ICD-10 - J45.998) treatment per COVID Feb, 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, unspecified vessel or lesion type (ICD-10 - I25.110) Feb, Encounter for immunization (ICD-10 - Z23) PLAN OF TREATMENT Medication Medication Name Sig Start Date Stop Date Nitroglycerin 0.4 MG Sublingual Atorvastatin Calcium 40 MG 1 tablet Orally Once a day Basaglar KwikPen 100 UNIT/ML 30 units Subcutaneous daily Losartan Potassium 100 MG 1 tablet Orally Once a day Admelog SoloStar 100 UNIT/ML as directed Subcutaneous sliding sc cici Paxil 20 MG 1 tablet in the morning Orally Once a day for 30 Days Levothyroxine Sodium 125 MCG 1 tablet on an empty stom ach in the morning Orally Once a day Trulicity 1.5 MG/0.5ML Subcutaneous Treatment Notes Assessment Notes Clinical Notes Depression, unspecified depression type stable. Hypothyroidism, unspecified stable. Type 2 diabetes mellitus with hyperglycemia Continue to maintain glycemic control. [facility] [facility] [place] Essential (primary) hypertension Cardiol ogy has been changing medications. Has appt in a few weeks for followup. Encouraged to keep that appt. Other asthma treatment per COVID Next Appt Details 6 Months Reason: Provider Name:Galilea Roblero, 09-03 11:00:00 AM, [address], , [place], [address], Insurance Providers Payer Name Payer Address Payer Phone Insured Name Patient Relati onship to Insured Coverage Start Date Coverage End Date [facility] CLAIMS DEPT [address] [place] [phone] MARILYN SHIELDS self
--- OUTSIDE RECORDS SUMMARY | 2021-04-18 21:28 | CCD ---
Author Author [facility] Organization [facility] Address Unknown Phone Unavailable Care Team Providers Care Electrical Technology Instructor Name Role Phone Teresita Parkinson Unavailable PROBLEMS Type Condition ICD9-CM Code [id number] Code Onset Dates Condition S tatus W/U Status Risk SNOMED Code Notes Problem Obstructive sleep apnea G47.33 Active confirmed 84117016 Problem Asthma J45.909 Active confirmed 991548033 Problem Type 2 diabetes mellitus with hyperglycemia E11.65 Active confirmed 674170208954340 Problem Other and unspecified hyperlipidemia E78.5 Act artemio confirmed 25500496 Problem Other asthma J45.998 Active confirmed 614692 001 Problem Hypothyroidism, unspecified E03.9 Active confirmed 23713559 Problem Obstructive sleep apnea (adult) (pediatric) G47.33 Active confirmed 15459864 Problem Hypothyroidism E03.9 Active confirmed 42268 008 Problem Essential (primary) hypertension I10 Active conf irmed 33018505 Problem Other anxiety states F41.1 Active confirmed 103722169 Problem Type 2 diabetes mellitus without complications E11 .9 Active confirmed 278942334 Problem Depression, unspecified depression type F32.9 Active confirmed 39897088 Problem Coronary artery disease invo 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, unspecified vessel or lesion type I25.110 Active confirmed 66805142 Problem LUCILA (obstructive sleep apnea) G47.33 Active confirm ed 32480828 Problem Other obesity E66.8 Active confirmed 522728 001 Problem Obesity E66.9 Active confirmed 179795330 Problem Right chronic serous otitis media H65.21 Active confirmed 396008969 Problem Other hyperlipidemia E78.4 Active confirmed 09594973 Problem DM w/o complication type II E11.9 Active confirmed 272316228 Problem Esophageal reflux K21.9 Active confirmed 23 9953180 Problem 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 Active confirmed 62817428 Problem Allergic rhinitis, unspecified J30.9 Active confir med 47035779 Problem Anxiety F41.9 Active confirmed 41676522 Problem 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 Active confirmed 78279560 ALLERGIES Allergen (clinical drug ingredient) Drug/Non Drug Allergy do cumented on EMR Reaction Allergy Type Onset Date Status pseudoephedrine Pseudoephedrine HCl([facility] Code:[address]- 61) hospitalized for hypertensive urgency Drug Allergy Active amoxicillin / clavulanate Augmentin([place] Code:[address]-09) Unkn own Drug Allergy Active cefdinir Cefdinir([facility] Code:[address]-27) Tongue tingling Drug Freddie rgy Active [place] Anaphylaxis Non Drug Allergy Active Sulfa (for allergy use only) anaphylaxis Drug Allergy Active ENCOUNTERS from 1961 to 2021-02-16 Encounter Location Date Provider Diagnosis [address] [phone] [place] [address] Feb, Teresita Parkinson Testicular swelling, left N5 0.89 and Left testicular pain N50.812 IMMUNIZATIONS Vaccine Route Administration Date Status Influenza 6mo & up Fluzone Unknown May [...] Education Language: Question Answer Notes Languages spoken: Emirati Sabianism: Question Answer Notes Sabianism 08 Taoism Sexual Hx: Question Answer Notes Had sex [...] FOR REFERRAL No Information VITAL SIGNS Weight 257 lbs Feb, Weight-kg 116.57 kg Feb, Height 71 in Feb, BMI 35.84 kg/m2 Feb, Heart Rate 81 /min Feb, Respiratory Rate 18 /min Feb, Temperature 97.4 degrees Fahrenheit Feb, Oximetry 98 Feb, Blood pressure systolic 150 mm Hg Feb, Blood pressure diastolic 84 mm Hg Feb, MEDICATIONS Medication SIG (Take, Route, Frequency, Duration) Notes Start Da te End Date Status Chlorthalidone 25 MG 1 tablet in the morning with food Orally Once a day for 30 day(s) /2 tab M-W-F Sep, Active Levemir 100 UNIT/ML DX : 250 Subcutaneous 60 units twice daily Not-Taking Naproxen 500 MG 1 tablet with food or milk a s needed Orally every 12 hrs for 5 day(s) November, Not-Taking May Have - as directed BP cuff: I10.0 - for 30 Days Jul Active Albuterol Sulfate HFA 108 (90 Base) MCG/ACT 1 puff as needed Inhalation every 6 hrs Active tiZANidine HCl 4 MG 1 tablet as needed Orally Three times a day for 5 day(s) November, Not-Taking Atorvastatin Calcium 40 MG 1 tablet Orally Once a day Active Levothyroxine Sodium 125 MCG 1 tablet on an empty stom ach in the morning Orally Once a day Active Omeprazole 20 MG ONE BY MOUTH EVERY DAY for 30 Not-Taking Nitroglycerin 0.4 MG Sublingual Act artemio traMADol HCl 50 MG 1 tablet as needed Orally QID prn pain for 5 days Feb, Active Levaquin 500 MG 1 tablet Orally Once a day for 10 day(s) Feb, Active Admelog SoloStar 100 UNIT/ML as directed Subcutaneous sliding scale Active Paxil 20 MG 1 tablet in the morning Orally Once a day for 30 Days Active Trulicity 1.5 MG/0.5ML Subcutaneous Active NovoLOG FlexPen 100 UNIT/ML sliding scale Subcutaneous between 10 and 28 units (Dr. Felipe) Not-Taking Basaglar KwikPen 100 UNIT/ML 30 units Subcutaneous daily Active Flonase 50 MCG/ACT 1 spray in each nostril Nasally bid for 90 days Not-Taking Zinc Oxide 12 % as directed Externally no percentage listed on d/c paper work Not-Taking Dexamethasone 4 MG 1 tablet Orally Once a day for 7 day(s) Not-Taking Probiotic Acidophilus - as directed Orally daily Active Tylenol Extra Strength 650 mg 1 tablet as needed Orally every 6 hrs as needed Active Benzonatate 100 MG 1 capsule as needed Orally Three times a day Not-Taking Terbinafine HCl 1 % apply thick layer to groin e xternally three times a day for 30 Days Aug, Not-Taking Aspirin 81 81 MG 1 tablet Orally Once a day Active Vitamin D 1000 UNIT 4 tablet Orally Once a day Active Losartan Potassium 100 MG 1 tablet Orally Once a day Active Dexamethasone 2 MG 1 tablet Orally after finish ing 4 mg tabs Once a day for 7 day(s) Jul, Not-Taking Co Q 10 200 MG 1 capsule with a meal Orally BID Active Dicyclomine HCl 10 MG 1 capsules Orally every 6 ho urs as needed for irritable bowel symptoms Not-Taking Pantoprazole Sodium 40 MG take one tablet by mouth jerri ry day orally Daily for 30 Active ZyrTEC Allergy 10 MG 1 tablet Orally Once a day for 30 Days Active Paxil 20 MG 1 tablet in the morning Orally Once a day for 30 Active Combivent Respimat 20-100 mcg/act 1 puff Inhalation th ree times daily for 30 Days Active Albuterol Sulfate (2.5 MG/3ML) 0.083% 3 ml as needed Inhalation jerri ry 6 hrs Active PROCEDURES No Information RESULTS Component Value Reference Range Urinalysis, no Micro Reviewed date:02/14/2021 16:07:29 Interpretation: Performing Lab:[facility], ,[place] [address] Spec gravity 1.010 1.002 - 1.035 pH 5 5.0 - 9.0 Leukocyte neg Negative - Nitrate pos Negative - Protein neg Negative - mg/dl Glucose 1000 Negative - mg/dl Ketones neg Negative - mg/dl Urobili norm Normal - mg/dl Bilirubin neg Negative - Blood neg Negative - Internal QC Acceptable (Y/N) yes UA URINALYSIS Reviewed date:02/15/2021 11:15:12 Interpretation: Performing Lab:[facility] LABORATORY [address] [address] , ,[place] [address] URINE CULTURE Reviewed date:02/16/2021 09:22:31 Interpretation: Performing Lab:[facility] LABORAT[facility] [address] [address] , ,[place] [address] REASON FOR VISIT Pain L testicle MEDICAL (GENERAL) HISTORY Type Description Date Medical History LUCILA/ CPAP Pulmonary (last seen 06/16)- n ot using Medical History DM2: [place] Medical History Hypothyroidism: [place] Medical History GERD : diet controlled Medical [...] Surgical History septoplasty Surgical History cardiac cath ([facility]) 09/2012 Surgical History EGD/colonoscopy 2010 Surgical History Angioplasty- [facility] [place]: [place] 02/23 17 Surgical History Colonoscopy- Dr. Castellon. + adenoma: repe at due 04/2017 Surgical History Cardiac Stent: [facility] [place] 08/2017 Hospitalization History asthma exacerbation 09/2011 Hospitalization History unstable angina, angioplasty [facility] Hospitalization History [facility]/Stent 08/2017 Hospitalization History [facility]D-Colitis 06/2020 Goals Section No Information Health Concerns No Information MEDICAL EQUIPMENT No Information MENTAL STATUS No Information FUNCTIONAL STATUS No Information ASSESSMENTS Encounter Date Diagnosis Assessment Notes Treatment Notes Treatm ent Clinical Notes Feb, Testicular swelling, left (ICD-10 - N50.89) Feb, Left testicular pain (ICD-10 - N50.812) Feb, Other Total time spent caring for the patient on the day of the encounter was 30 min PLAN OF TREATMENT Medication Medication Name Sig Start Date Stop Date Levaquin 500 MG 1 tablet Orally Once a day for 10 day(s) Feb, traMADol HCl 50 MG 1 tablet as needed Orally QID prn pain f or 5 days Feb, Treatment Notes Test Name Order Date Ultrasound : Testicular 2021-02-14 Next Appt Details Provider Name:Galilea Roblero, 8 04:00:00 PM, [address], , [place], [address], Insurance Providers Payer Name Payer Address Payer Phone Insured Name Patient Relati onship to Insured Coverage Start Date Coverage End Date [facility] CLAIMS DEPT [address] ON LICENSE OF [facility] [phone] MARILYN SHIELDS self
--- OUTSIDE RECORDS SUMMARY | 2021-04-18 21:28 | CCD | Continuity of Care Document ---
Author Author Kuldip OTT ANP Organization Unknown Address [address] [place] [address] Phone [phone] Care Team Providers Care Forex Trader Name Role Phone Galilea Roblero AUTM [phone] Central Scheduling AUTM [phone] Problems Active Problems Provider Date Allergic asthma without status asthmaticus Onset: 05/08/2012 Essential hypertension Onset: 05/08/2012 Obstructive sleep apnea syndrome GABE Huerta Onset: 11/02/2019 Social History Type Date Description Comments Sex Unknown Tobacco Use Start: Unknown Never Smoked Cigarettes Smoking Status Reviewed: 01/23/21 Never Smoked Cigarettes ETOH Use Denies alcohol use Tobacco Use Start: Unknown Chewing Tobacco 1/2 can daily Allergies, Adverse Reactions, Alerts Active Allergies Reaction Severity Comments Date Sulfa 04/25/2016 Pseudoephedrine 04/25/2016 Augmentin 04/25/2016 Cefdinir 04/25/2016 [place] 04/25/2016 Inactive Allergies NKDA 05/08/2012 Medications Active Medications SIG Qnty Indications Ordering Provide r Date CPAP Device 6cm GABE Pacheco 12/15/2019 Milk Of Magnesia 7.75% Suspension take 45 milliliters by mouth about 1-2 days before colonoscopy prep 360ml R93.3 Rachel Castellon MD 07/14/2019 Suprep Bowel Prep Kit 17.5-3.13-1.6GM/177ML Solution as directed - see dr mena instructions 1Kit R93.3 Rachel Castellon MD 07/14/2019 Zinc Oxide 20% Ointment warm sitz bath after bm then apply a thin film at the anal verge Unknown Co-Enzyme Q10 100mg Capsules Unknown Admelog Solostar 100 Unit/ML Solution Pen-Inject Unknown Basaglar Kwikpen 100 Unit/ML Solution Pen-Inject 60 units Unknown Dicyclomine HCL 10mg Capsules 1 to 2 by mouth every 6 hours as needed abdominal cramping Unknown Vitamin D 50mcg (2000 Ut) Tablets Unknown Cetirizine HCL 10mg Tablets Unknown Aspirin [address] 1 by mouth every day Unknown Lactobacillus Tablets 1 by mouth three times a day wm Unknown Tessalon Perles 100mg Capsules 1 by mouth three times a day Unknown Albuterol Sulfate (2 .5mg/3ML) 0.083% Nebulizer 1 vial four times a day as needed Unknown Pantoprazole Sodium 40mg Tablets D R daily -- one tablet in morning 1/2 hour before breakfast Unknown Fluticasone Propionate 50mcg/Act Suspension [place] One [place] In Each Nostril Twice A Day Unknown Tobramycin 0.3% Solution Sonal Cain, F.N.P. Atorvastatin Calcium 40mg Tablets once daily Jessie Dueñas, P.A. 000 Paroxetine HCL 20mg Tablets Galilea Roblero, F.N.P.-C. BD Pen Needle/Original/Ultra-Fine/29G X 12.7mm 29G X 12.7mm Misc Unknown Levothyroxine Sodium 125mcg Tablets Unknown Losartan Potassium 50mg Tablets Take One Tablet By Mouth Every Day Unknown Freestyle Shabbir 14 Day/Sensor/Flash [facility] toring System Misc Use as Directed Change Every 14 Days Unknown Nitrostat 0.4mg Tablets Sub 1 tab subling, every 5 min up to 3x for chest pain Unknown Epipen 2-Carlos 0.3mg/0 .3ML Solution Auto-Inject as directed Unknown Trulicity 0.75mg/0.5 ML Solution Pen-Inject once weekly Unknown Immunizations Description No Information Available Vital Signs Date Vital Result Comment 01/23/2021 2:25pm BP Systolic 124 mmHg BP Diastolic 78 mmHg Heart Rate 78 /min O2 % BldC Oximetry 96 % Body Temperature 98.0 F 97.3 Height 70 inches 5'10" Weight 259.00 lb BMI (Body Mass Index) 37.2 kg/m2 [place] Body Weight 166 lb Weight 117.482 kg BSA (Body Surface Area) 2.33 m2 12/07/2020 9:56am BP Systolic 170 mmHg BP Diastolic 80 mmHg Heart Rate 69 /min O2 % BldC Oximetry 96 % Height 70 inches 5'10" Weight 258.00 lb BMI (Body Mass Index) 37.0 kg/m2 [place] Body Weight 166 lb Weight 117.029 kg BSA (Body Surface Area) 2.33 m2 Results Test Acquired Date Facility Test Result H/L Range Note FVL/Juan Alberto 12/07/2020 [facility] SEE IMAGE FVC-Pred 4.80 L FVC-Pre 2.82 L FVC-%Pred-Pre 58 L FVC-LLN 3.87 L Fev1-Pred 3.64 L Fev1-Pre 2.44 L Fev1-%Pred-Pre 67 L Fev1-LLN 2.85 L Fev6-Pred 4.59 L Fev6-Pre 2.81 L Fev6-%Pred-Pre 61 L Fev6-LLN 3.68 L Ygh0mxr-Pguh 76 % Mwz3awl-Fap 87 % Fkj5tkv-%Pred-Pre 114 % Dez2grl-NCP 66 % Uye6cyy-Dmbb 96 % Izh0fpp-Bzm 99 % Rjx5ysk-%Pred-Pre 103 % FEFMax-Pred 9.30 L/E/sec FEFMax-Pre 5.43 L/E/sec FEFMax-%Pred-Pre 58 L/E/sec FEFMax-LLN 6.97 L/E/sec Dlv5759-Jxhn 3.02 L/E/sec Nnt0000-Acr 2.76 L/E/sec Gbp5626-%Pred-Pre 91 L/E/sec Lvu9054-JYJ 1.42 L/E/sec ExpTime-Pre 7.20 sec Mfa8xsg1-Hvyt 79 % Zwp4ppr0-Ogk 87 % Nwu1yqt0-%Pred-Pre 110 % Qwg4bco1-NCS 70 % Antinuclear Antibodies 09/06/2020 [facility] Main Lab [address] [place] [address]68 [phone] Antinuclear Antibodies Direct Positive Abnormal Ne gative Anti Double Strand-Dna AB 1 IU/mL Normal 0-9 1 MEDICAID NURSE Antibodies 1.1 AI High 0.0-0.9 Hernandez Antibodies <0.2 AI Normal 0.0-0.9 Sjogren's Anti SS-A <0.2 AI Normal 0.0-0.9 Sjogren's Anti SS-B <0.2 AI Normal 0.0-0.9 Chad Comment (SEE NOTE) Normal . 2 Laboratory test finding 09/06/2020 [facility] Main Lab [address] [place] [address] 12998 [phone] Anti-Mitochondrial Antibody <20.0 units Normal 0.0 -20.0 3 Anti-Neutrophil Cytoplasmic AB 09/06/2020 [facility] Main Lab [address] [place] [address] 51460 [phone] Cytoplasmic Neutrop AB Anca-C <1:20 titer Normal N eg:<1:20 Perinuclear AB Anca-P <1:20 titer Normal Neg:<1:20 4 Anca-Atypical <1:20 titer Normal Neg:<1:20 5 Laboratory test finding 09/06/2020 [facility] Main Lab [address] [place] [address] 97919 [phone] Liver-Kidney Microsomal Lelo <20.1 units Normal 0.0 -20.0 6 Total Iron Binding Capacit 09/06/2020 [facility] Main Lab [address] [place] [address] 23280 [phone] Iron (Fe) 85 g/dL Normal 65-175 Total Iron Binding Capacity 280 g/dL Normal 250-450 Percent Saturation 30.4 % Normal 19.7-50.0 Laboratory test finding 09/06/2020 [facility] Main Lab [address] [place] [address] 73089 [phone] Ceruloplasmin 26.6 mg/dL Normal 16.0-31.0 7 Hepatitis Profile 09/06/2020 [facility] Main Lab [address] [id number] [phone] Hepatitis C Virus Lelo Index < 0.0 INDEX Normal <0. 8 Hepatitis B Surface Antigen NEGATIVE Normal Negative Hepatitis B Core Antibody Igm NEGATIVE Normal Negative Hepatitis A Antibody Igm NEGATIVE Normal Negative Liver Profile 09/06/2020 [facility]ter Main Lab [address] [place] [address] 35538 [phone] Ast/Sgot 16 U/L Normal 7-37 Alt/SGPT 67 U/L Normal 12-78 Alkaline Phosphatase 114 U/L Normal 45-117 Bilirubin,Total 0.7 mg/dL Normal 0.2-1.0 Bilirubin,Direct 0.2 mg/dL Normal 0.0-0.2 Total Protein 6.9 GM/DL Normal 6.4-8.2 Albumin 3.9 GM/DL Normal 3.2-5.2 Albumin/Globulin Ratio 1.3 Normal Prothrombin Time/Inr 09/06/2020 [facility] enter Main Lab [address] [place] [address] 27188 [phone] Prothrombin Time 13.6 seconds Normal 12.5-14.3 Inr 1.02 Normal 8 CBC With Differential 09/06/2020 [facility] Main Lab [address] [place] [address] 97624 [phone] White Blood Count 6.2 10 Normal 4.0-10.0 Red Blood Count 4.31 10 Normal 4.30-6.10 Hemoglobin 12.9 g/dL Low 13.5-17.5 Hematocrit 38.3 % Low 42.0-52.0 Mean Corpuscular Volume 88.9 fl Normal 80.0-96.0 Mean Corpuscular Hemoglobin 29.9 pg Normal 27.0-33.0 Mean Corpuscular HGB Conc 33.7 g/dL Normal 32.0-36.5 Red Cell Distribution Width 14.8 % High 11.5-14.5 Platelet Count, Automated 234 10 Normal 150-450 Neutrophils % 52.8 % Normal 36.0-66.0 Lymph % 34.1 % Normal 24.0-44.0 [place] % 8.0 % Normal 2.0-8.0 Eos % 3.3 % High 0.0-3.0 Baso % 1.0 % Normal 0.0-1.0 Immature Granulocyte % 0.8 % Normal 0-3.0 Nucleated Red Blood Cell % 0.0 % Normal 0-0 Neutrophils # 3.3 10 Normal 1.5-8.5 Lymph # 2.1 10 Normal 1.5-5.0 [place] # 0.5 10 Normal 0.0-0.8 Eos # 0.2 10 Normal 0.0-0.5 Baso # 0.1 10 Normal 0.0-0.2 Laboratory test finding 09/06/2020 [facility] Main Lab [address] [id number] [phone] Tissue Transglutaminase IgA <2 U/mL Normal 0-3 9 Immunoglobulin A 99.5 mg/dL Normal 70-400 10 1 Negative <5 Equivocal 5 - 9 Positive >9 2 . Autoantibody Disease Association Condition Frequency -------- --------- Antinuclear Antibody, SLE, mixed connective Direct (CHAD-D) tissue diseases -------- --------- dsDNA SLE 40 - 60% -------- --------- Chromatin Drug induced SLE 90% SLE 48 - 97% -------- --------- SSA (Ro) SLE 25 - 35% Sjogren's Syndrome 40 - 70% Lupus 100% -------- --------- SSB (La) SLE 10% Sjogren's Syndrome 30% ------- --------- Sm (anti-Hernandez) SLE 15 - 30% ------- --------- MEDICAID NURSE Mixed Connective Tissue Disease 95% (U1 nRNP, SLE 30 - 50% anti-ribonucleoprotein) Polymyositis and/or Dermatomyositis 20% -------- --------- Scl-70 (antiDNA Scleroderma (diffuse) 20 - 35% topoisomerase) Crest 13% -------- --------- Christine-1 Polymyositis and/or Dermatomyositis 20 - 40% -------- --------- Centromere B Scleroderma - Crest variant 80% 3 Negative 0.0 - 20.0 Equivocal 20.1 - 24.9 Positive >24.9 . Mitochondrial (M2) Antibodies are found in 90-96% of patients with primary biliary cirrhosis. 4 The presence of positive flu orescence exhibiting P-ANCA or C-ANCA patterns alone is not specific for the diagnosis of Ally's Granulomatosis (WG) or microscopic polyangiitis. Decisions about treatment should not be based solely on ANCA IFA results. The International ANCA Group Consensus recommends follow up testing of positive sera with both [place]- 3 and MPO-ANCA enzyme immunoassays. As m any as 5% serum samples are positive only by EIA. Ref. AM J Clin Pathol 1999;111:507-513. 5 The atypical pANCA pattern h as been observed in a significant percentage of patients with ulcerative colitis, primary sclerosing cholangitis and autoimmune hepatitis. 6 Negative 0.0 - 20.0 Equivocal 20.1 - 24.9 Positive >24.9 . LKM type 1 antibodies are detected in patients with autoimmune hepatitis type 2 and in up to 8% of patients with chronic HCV infection. 7 Performed at: [facility] [employer] [id number] Wound Treatment Rn: Js Marcelo MD, Phone: [phone] Performed at: [facility] [employer] [id number] Wound Treatment Rn: Santa Blackburn MD, Phone: [phone] THERAPUTIC HUMAN INR VALUES INDICATIONS NORMAL RANGES PROPHYLAXIS/TREATMENT OF: VENOUS THROMBOSIS 2.0-3.0 PULMONARY EMBOLISM 2.0-3.0 PREVENTION OF SYSTEMIC EMBOLISM FROM: TISSUE HEART VALVES 2.0-3.0 ACUTE MYOCARDIAL INFARCTION 2.0-3.0 VALVULAR HEART DISEASE 2.0-3.0 ATRIAL FIBRILLATION 2.0-3.0 MECHANICAL VALVES(HIGH RISK) 2.5-3.5 RECURRENT MYOCARDIAL INFARCTION 2.5-3.5 9 Negative 0 - 3 Weak Positive 4 - 10 Positive >10 . Tissue Transglutaminase (tTG) has been identified as the endomysial antigen. Studies have demonstr- ated that endomysial IgA antibodies have over 99% specificity for gluten sensitive enteropathy. 10 09/13/20 (FriSep 13) 12:58 PM RACHEL harp Procedures Date Code Description Status 01/15/2021 75280 Diffusing Capacity Completed 01/15/2021 56471 Plethysmography Determination Ama ng Volumes & Per Airway Resist Completed 01/15/2021 06422 Bronchospasm Evaluation Complete d 12/07/2020 27565 Office/Outpatient Established Mo d MDM 30-39 Min Completed 12/07/2020 97140 Spirometry Completed 11/29/2020 83507 Office/Outpatient Established Mo d MDM 30-39 Min Completed 09/06/2020 45672 Office/Outpatient Established Lo w MDM 20-29 Min Completed Medical Devices Description No Information Available Encounters Type Date Location Provider Dx Diagnosis Office Visit 11/29/2020 1:00p [facility] Gastroenterology [facility] ctice Rachel Castellon MD R93.3 Abnormal findings on dx imag ing of prt digestive tract K62.5 Hemorrhage of anus and rectu m K75.81 Nonalcoholic steatohepatitis (Russell) Office Visit 09/06/2020 2:30p [facility] ENT Practice Luda Estrada R93.3 Abnormal findings on dx imaging of prt digestive tract K62.5 Hemorrhage of anus and rectu m R94.5 Abnormal results of liver fu nction studies Z80.0 Family history of malignant neoplasm of digestive organs Assessments Date Code Description Provider 01/23/2021 J84.9 Interstitial pulmonary disease, unspecified Antonella Ott, GABE 01/23/2021 R91.8 Other nonspecific abnormal findi ng of lung field GABE Huerta 01/23/2021 G47.33 Obstructive sleep apnea (adult) (pediatric) GABE Huerta 01/23/2021 R94.2 Abnormal results of pulmonary fu nction studies GABE Huerta 01/15/2021 R06.02 Shortness of breath Pulmonary La b 12/07/2020 R06.02 Shortness of breath GABE Huerta 12/07/2020 R91.8 Other nonspecific abnormal findi ng of lung field GABE Huerta 12/07/2020 Z86.16 Personal history of Covid-19 GABE Swanson i 11/29/2020 R93.3 Abnormal findings on diagnostic imaging of other parts of digestive tract Rachel Castellon MD 11/29/2020 K62.5 Hemorrhage of anus and rectum Da polly Castellon MD 11/29/2020 K75.81 Nonalcoholic steatohepatitis (Na sh) Rachel Castellon MD 09/06/2020 R93.3 Abnormal findings on diagnostic imaging of other parts of digestive tract Rachel Castellon MD 09/06/2020 K62.5 Hemorrhage of anus and rectum Da visugey Castellon MD 09/06/2020 R94.5 Abnormal results of liver functi on studies Rachel Castellon MD 09/06/2020 Z80.0 Family history of malignant neop lasm of digestive organs Rachel Castellon MD Plan of Treatment Future Appointment(s):* 07/30/2021 3:00 pm - GABE Huerta at [facility] Pulmonary/Thoracic * 07/30/2021 2:00 pm - Pulmonary Lab at [facility] Pulmonary/Thoracic 01/23/2021 - GABE Huerta* J84.9 Interstitial pulmonary disease, unspecified * R91.8 Other nonspecific abnormal finding of lung field * G47.33 Obstructive sleep apnea (adult) (pediatric) * R94.2 Abnormal results of pulmonary function studies * * New Labs:* PFT/HGB Off/No Meds, Scheduled: 07/30/21 * Follow up:* Cancel March appt. Follow up 6 months with PFT. Functional Status Description No Information Available Mental Status Description No Information Available Referrals Refer to Reason for Referral Status Appt Date Radiology/Procedure 59705 Closed 01/15/2021 Antonella Ott, David.NAntonio. POST COVID Closed 12/07/2020 [facility] Medical Practice Pulmonary [address] [place], [place] [address] [phone]
--- OUTSIDE RECORDS SUMMARY | 2021-04-18 21:28 | CCD ---
Author Author [employer] [facility] [employer] Organization [employer] Address Unknown Phone Unavailable Care Team Providers Care Clinical Tech Name Role Phone JimenaNainatt Unavailable PROBLEMS ALLERGIES ENCOUNTERS from 1960 to 2021-02-03 IMMUNIZATIONS SOCIAL HISTORY REASON FOR REFERRAL No Information VITAL SIGNS MEDICATIONS PROCEDURES No Information RESULTS No Results REASON FOR VISIT MEDICAL (GENERAL) HISTORY Goals Section Health Concerns MEDICAL EQUIPMENT No Information MENTAL STATUS FUNCTIONAL STATUS ASSESSMENTS PLAN OF TREATMENT Insurance Providers
--- OUTSIDE RECORDS SUMMARY | 2021-04-18 21:28 | CCD | Continuity of Care Document ---
Author Author Kuldip OTT ANP Organization Unknown Address [address] [place] [address] Phone [phone] Care Team Providers Care Supervisor Sample Preparation Name Role Phone Galilea Roblero AUTM Central Scheduling AUTM [phone] Problems Active Problems Provider Date Allergic asthma [...] 04/25/2016 Pseudoephedrine 04/25/2016 Augmentin 04/25/2016 Cefdinir 04/25/2016 [place] 04/25/2016 Inactive Allergies NKDA 05/08/2012 Medications Active [...] before breakfast Unknown Fluticasone Propionate 50mcg/Act Suspension [place] One [place] In Each Nostril Twice A Day Unknown [...] lb BMI (Body Mass Index) 37.2 kg/m2 [place] Body Weight 166 lb Weight 117.482 kg BSA (Body Surface Area) 2.33 m2 12/07/2020 9:56am BP Systolic 170 mmHg BP Diastolic 80 mmHg Heart Rate 69 /min O2 % BldC Oximetry 96 % Height 70 inches 5'10" Weight 258.00 lb BMI (Body Mass Index) 37.0 kg/m2 [place] Body Weight 166 lb Weight 117.029 kg [...] L Fev6-%Pred-Pre 61 L Fev6-LLN 3.68 L Rvl6jhu-Zkjl 76 % Eai1hzx-Eil 87 % Myf5cmb-%Pred-Pre 114 % Mws2vyc-YTS 66 % Waw2hye-Rlak 96 % Olu9stk-Rmc 99 % Sgc4chp-%Pred-Pre 103 % FEFMax-Pred 9.30 L/E/sec FEFMax-Pre 5.43 L/E/sec FEFMax-%Pred-Pre 58 L/E/sec FEFMax-LLN 6.97 L/E/sec Rwh3085-Iqfl 3.02 L/E/sec Fba1518-Qku 2.76 L/E/sec Isw2184-%Pred-Pre 91 L/E/sec Wyq7556-ODA 1.42 L/E/sec ExpTime-Pre 7.20 sec Mrc5adr5-Ngtx 79 % Heq0jqg7-Hvl 87 % Joh7tll6-%Pred-Pre 110 % Ncm2cev7-CCD 70 % Antinuclear Antibodies 09/06/2020 [facility] Main Lab [address] [place] [address] 23751 [phone] Antinuclear Antibodies Direct Positive Abnormal Ne gative Anti Double Strand-Dna AB 1 IU/mL Normal 0-9 1 ANIMAL CARE PROVIDER Antibodies 1.1 AI High 0.0-0.9 Hernandez Antibodies <0.2 AI Normal 0.0-0.9 Sjogren's Anti SS-A <0.2 AI Normal 0.0-0.9 Sjogren's Anti SS-B <0.2 AI Normal 0.0-0.9 Chad Comment (SEE NOTE) Normal . 2 Laboratory test finding 09/06/2020 [facility] Main Lab [address] [place] [address] 39057 [phone] Anti-Mitochondrial Antibody <20.0 units Normal 0.0 -20.0 3 Anti-Neutrophil Cytoplasmic AB 09/06/2020 [facility] Main Lab [address] [place] [address] 74049 [phone] Cytoplasmic Neutrop AB Anca-C <1:20 titer Normal N eg:<1:20 Perinuclear AB Anca-P <1:20 titer Normal Neg:<1:20 4 Anca-Atypical <1:20 titer Normal Neg:<1:20 5 Laboratory test finding 09/06/2020 [facility] Main Lab [address] [place] [address] 39230 [phone] Liver-Kidney Microsomal Lelo <20.1 units Normal 0.0 -20.0 6 Total Iron Binding Capacit 09/06/2020 [facility] Main Lab [address] [place] [address] 32755 [phone] Iron (Fe) 85 g/dL Normal 65-175 Total Iron Binding Capacity 280 g/dL Normal 250-450 Percent Saturation 30.4 % Normal 19.7-50.0 Laboratory test finding 09/06/2020 [facility] Main Lab [address] [place] [address] 36080 [phone] Ceruloplasmin 26.6 mg/dL Normal 16.0-31.0 7 Hepatitis Profile 09/06/2020 [facility] Main Lab [address] [phone] Hepatitis C Virus Lelo Index < 0.0 INDEX Normal <0. 8 Hepatitis B Surface Antigen NEGATIVE Normal Negative Hepatitis B Core Antibody Igm NEGATIVE Normal Negative Hepatitis A Antibody Igm NEGATIVE Normal Negative Liver Profile 09/06/2020 [facility] nter Main Lab [address] [place] [address] 60075 [phone] Ast/Sgot 16 U/L Normal 7-37 Alt/SGPT 67 U/L Normal 12-78 Alkaline Phosphatase 114 U/L Normal 45-117 Bilirubin,Total 0.7 mg/dL Normal 0.2-1.0 Bilirubin,Direct 0.2 mg/dL Normal 0.0-0.2 Total Protein 6.9 GM/DL Normal 6.4-8.2 Albumin 3.9 GM/DL Normal 3.2-5.2 Albumin/Globulin Ratio 1.3 Normal Prothrombin Time/Inr 09/06/2020 [facility] enter Main Lab [address] [place] [address] 49604 [phone] Prothrombin Time 13.6 seconds Normal 12.5-14.3 Inr 1.02 Normal 8 CBC With Differential 09/06/2020 [facility] Main Lab [address] [place] [address] 81081 [phone] White Blood Count 6.2 10 Normal 4.0-10.0 [...] 36.0-66.0 Lymph % 34.1 % Normal 24.0-44.0 Schleicher % 8.0 % Normal 2.0-8.0 Eos % 3.3 % High 0.0-3.0 Baso % 1.0 % Normal 0.0-1.0 Immature Granulocyte % 0.8 % Normal 0-3.0 Nucleated Red Blood Cell % 0.0 % Normal 0-0 Neutrophils # 3.3 10 Normal 1.5-8.5 Lymph # 2.1 10 Normal 1.5-5.0 Schleicher # 0.5 10 Normal 0.0-0.8 Eos # 0.2 10 Normal 0.0-0.5 Baso # 0.1 10 Normal 0.0-0.2 Laboratory test finding 09/06/2020 [facility] Main Lab [address] [id number] [phone] Tissue Transglutaminase IgA <2 U/mL Normal 0-3 [...] (anti-Hernandez) SLE 15 - 30% ------- --------- ANIMAL CARE PROVIDER Mixed Connective Tissue Disease 95% (U1 nRNP, [...] up testing of positive sera with both [place]- 3 and MPO-ANCA enzyme immunoassays. As m [...] with chronic HCV infection. 7 Performed at: [facility] [employer] [id number] [employer]: Js Marcelo MD, Phone: [phone] Performed at: [facility] [employer] [id number] [employer]: Santa Blackburn MD, Phone: [phone] THERAPUTIC HUMAN INR VALUES INDICATIONS NORMAL [...] RACHEL harp Procedures Date Code Description Status 01/23/2021 42506 Office/Outpatient Established Mo d MDM 30-39 Min Completed 01/15/2021 49797 Diffusing Capacity Completed 01/15/2021 52314 Plethysmography Determination Ama ng Volumes & Per Airway Resist Completed 01/15/2021 46550 Bronchospasm Evaluation Complete d 12/07/2020 50705 Office/Outpatient Established Mo d MDM 30-39 Min Completed 12/07/2020 45903 Spirometry Completed 11/29/2020 49083 Office/Outpatient Established Mo d MDM 30-39 Min Completed 09/06/2020 57281 Office/Outpatient Established Lo w MDM 20-29 Min Completed Medical Devices Description No Information Available Encounters Type Date Location Provider Dx Diagnosis Office Visit 01/23/2021 2:30p [facility] Pulmonary/Thoracic Antonella lewis, GABE J84.9 Interstitial pulmonary disease, unspecif ied R91.8 Other nonspecific abnormal f inding of lung field G47.33 Obstructive sleep apnea (abel lt) (pediatric) R94.2 Abnormal results of pulmonar y function studies Office Visit 11/29/2020 1:00p [facility] Gastroenterology Pra ctice Rachel Castellon MD R93.3 Abnormal findings on dx imag ing of prt digestive tract K62.5 Hemorrhage of anus and rectu m K75.81 Nonalcoholic steatohepatitis (Russell) Office Visit 09/06/2020 2:30p [facility] ENT Practice Luda Estrada R93.3 Abnormal findings on dx imaging of prt digestive tract K62.5 Hemorrhage of anus and rectu m R94.5 Abnormal results of liver fu nction studies Z80.0 Family history of malignant neoplasm of digestive organs Assessments Date Code Description Provider 01/23/2021 J84.9 Interstitial pulmonary disease, unspecified GABE Huerta 01/23/2021 R91.8 Other nonspecific abnormal findi ng [...] 11/29/2020 K62.5 Hemorrhage of anus and rectum Armand Castellon MD 11/29/2020 K75.81 Nonalcoholic steatohepatitis (Na sh) Rachel Castellon MD 09/06/2020 R93.3 Abnormal findings on diagnostic imaging of other parts of digestive tract Rachel Castellon MD 09/06/2020 K62.5 Hemorrhage of anus and rectum Armand Castellon MD 09/06/2020 R94.5 Abnormal results of liver functi on studies Rachel Castellon MD 09/06/2020 Z80.0 Family history of malignant neop lasm of digestive organs Rachel Castellon MD Plan of Treatment Future Appointment(s):* 07/30/2021 3:00 pm - GABE Huerta at [facility] Pulmonary/Thoracic * 07/30/2021 2:00 pm - Pulmonary Lab at [facility] Pulmonary/Thoracic 01/23/2021 - GABE Huerta* [...] Reason for Referral Status Appt Date Radiology/Procedure 41531 Closed 01/15/2021 Antonella Ott A.N.P. POST COVID Closed 12/07/2020 [facility] Medical Practice Pulmonary [address] [place] [id number] [phone]
--- OUTSIDE RECORDS SUMMARY | 2021-04-18 21:28 | CCD | Continuity of Care Document ---
Author Kuldip Valdez Organization Unknown Address [address] [place] [address], [place] [address] Phone [phone] Care Team Providers Care Airplane Rigger Name Role Phone Galilea Roblero TEREZA AUTM [phone] Tristan Fatima MD AUTM [phone] Problems Active Problems Provider Date Essential hypertension Eren Gutierrez MD Onset: 03/13/2018 Hypothyroidism Eren Gutierrez MD Onset: 03/13/2018 Body mass index 30+ - obesity Eren Gutierrez MD Onset: 01/2018 Multi vessel coronary artery disease Eren Gutierrez MD Ons et: 03/13/2018 Precordial pain Eren Gutierrez MD Onset: 03/13/2018 Left bundle branch block Eren Gutierrez MD Onset: 03/13/20 18 Aortic valve disorder Eren Gutierrez MD Onset: 03/13/2018 Disturbance in sleep behavior Eren Gutierrez MD Onset: 01/2018 Electrocardiogram abnormal Eren Gutierrez MD Onset: 2018 Aneurysm of thoracic aorta Eren Gutierrez MD Onset: 2018 Pure hypercholesterolemia Eren Gutierrez MD Onset: 019 Benign hypertensive heart disease without congestive h eart failure Eren Gutierrez MD Onset: 09/10/2018 Obesity MONICA Jacobo Onset: 04/01/2019 Dietary management surveillance MONICA Jacobo Onset: 04/01/2019 Chest pain MONICA Jacobo Onset: 04/30/2019 Preoperative cardiovascular examination MONICA Jacobo Onset: 07/09/2019 Thoracic aortic ectasia MONICA Jacobo Onset: 12/03/19 20 Social History Type Date Description Comments Sex Unknown Smokeless Tobacco Current Smokeless Tobacco User , Uses Occasionally a pinch occasionally ETOH Use Occasionally consumes beer Tobacco Use Start: Unknown Patient has never smoked Smoking Status Reviewed: 11/16/20 Patient has never smoked Exercise Type/Frequency Does yardwork daily Exercise Type/Frequency General Activities Daily physically demanding job Exercise Limitations None Allergies, Adverse Reactions, Alerts Active Allergies Reaction Severity Comments Date Sulfa throat swells 07/25/2010 Medications Active Medications SIG Qnty Indications Ordering Provide r Date Dilt-XR 120mg Caps ER 24HR 1 by mouth every day in the morning 90caps I11.9 Eren Gutierrez MD 11/04 Trulicity 3mg/0.5ML Solution Pen-I nject 1 injection weekly as directed Unknown Basaglar Kwikpen 100 Unit/ML Solution Pen-Inject inject as directed Unknown Humalog Mix 75/25 Kwikpen (75-25)100Unit/ML Supn inject as directed on ss by pcp Unknown 10/01/2020 Vitamin D3 50mcg (2000 Ut) Capsule s 2 by mouth every day Galilea Roblero FNP 0 Losartan Potassium 100mg Tablets 1 by mouth every night at bedtime 90tabs I11.9 Luda Hooper 12/03/2019 Levothyroxine Sodium 125mcg Tablet s 1 by mouth every day Evan Gonzalez MD 07/08/2019 Pantoprazole Sodium 40mg Tablets D R 1 by mouth every day Galilea Roblero FNP 0 Coq10 100mg Capsules 2 tablets twice a day Eren Gutierrez MD 09/10/2018 Atorvastatin Calcium 40mg Tablets take one tablet by mouth at bedtime 90tabs I25.10 To Bernard MD 09/10/2018 Nitroglycerin 0.4mg Tablets Sub Place One Tablet Under The Tongue Every 5 Minutes For Up To 3 Doses as Needed For Chest Pain. If Chest Pain Still Persists Contact 911 75tabs D yulissa Bernard MD 03/12/[address] 1 by mouth every day Unknown 03/12/2018 Flonase Allergy Relief 50mcg/Act Suspension 1 inhalation each nostril daily Unknown 03/12/2018 Cetirizine HCL 10mg Tablets 1 by mouth every day Unknown 03/12/2018 Paroxetine HCL 20mg Tablets 1 po qd [place] Pat, RPA-C 07/25/2010 History Medications Doxycycline Hyclate 100mg Capsules 1 by mouth twice a day Unknown 10/01/2020 - 0 11/15/2020 Chlorthalidone 25mg Tablets 1/2 by mouth daily 45tabs Eren Gutierrez MD 09/14/2020 - 11/15/2020 Amlodipine Besylate 2.5mg Tablets 1 by mouth every day 90tabs Eren Gutierrez MD 09/04/2020 - 09/14/2020 Immunizations Description No Information Available Vital Signs Date Vital Result Comment 11/16/2020 2:03pm Weight 248.00 lb Home Weight 238lb Height 71 inches 5'11" BMI (Body Mass Index) 34.6 kg/m2 Heart Rate 91 /min BP Systolic Sitting 148 mmHg Ra, large cuff BP Diastolic Sitting 80 mmHg Ra, large cuff 10/02/2020 12:57pm Weight 247.00 lb Home Weight 239lb at home weight Height 71 inches 5'11" BMI (Body Mass Index) 34.4 kg/m2 BP Systolic Sitting 144 mmHg Ra, large cuff BP Diastolic Sitting 82 mmHg Ra, large cuff Results Test Acquired Date Facility Test Result H/L Range Note BMP 11/16/2020 [facility] nter [phone] Glucose, Fasting 246 mg/dL High 70-100 Blood Urea Nitrogen 16 mg/dL Normal 7-18 Creatinine For GFR 1.01 mg/dL Normal 0.70-1.30 Glomerular Filtration Rate > 60.0 Normal >56 1 Sodium Level 141 mEq/L Normal 136-145 Potassium Serum 4.0 mEq/L Normal 3.5-5.1 Chloride Level 109 mEq/L High 98-107 Carbon Dioxide Level 28 mEq/L Normal 21-32 Anion Gap 4 mEq/L Low 8-16 Calcium Level 9.2 mg/dL Normal 8.5-10.1 Laboratory test finding 11/16/2020 [facility] [phone] NT-Pro BNP 94 pg/mL Normal <125 Comprehensive Metabolic Profil 09/27/2020 [facility] [phone] Glucose, Fasting 150 mg/dL High 70-100 Blood Urea Nitrogen 19 mg/dL High 7-18 Creatinine For GFR 0.88 mg/dL Normal 0.70-1.30 Glomerular Filtration Rate > 60.0 Normal >56 2 Sodium Level 141 mEq/L Normal 136-145 Potassium Serum 4.1 mEq/L Normal 3.5-5.1 Chloride Level 107 mEq/L Normal 98-107 Carbon Dioxide Level 27 mEq/L Normal 21-32 Anion Gap 7 mEq/L Low 8-16 Calcium Level 9.2 mg/dL Normal 8.5-10.1 Ast/Sgot 5 U/L Low 7-37 Alt/SGPT 22 U/L Normal 12-78 Alkaline Phosphatase 101 U/L Normal 45-117 Bilirubin,Total 0.6 mg/dL Normal 0.2-1.0 Total Protein 7.2 GM/DL Normal 6.4-8.2 Albumin 4.2 GM/DL Normal 3.2-5.2 Albumin/Globulin Ratio 1.4 Normal 1 Units are mL/min/1.73 m2 Chronic Kidney Disease Staging per NKF: Stage I & II GFR >=60 Normal to Mildly Decreased Stage III GFR 30-59 Moderately Decreased Stage IV GFR 15-29 Severely Decreased Stage V GFR <15 Very Little GFR Left ESRD GFR <15 on FELT PULLER 2 Units are mL/min/1.73 m2 Chronic Kidney Disease Staging per NKF: Stage I & II GFR >=60 Normal to Mildly Decreased Stage III GFR 30-59 Moderately Decreased Stage IV GFR 15-29 Severely Decreased Stage V GFR <15 Very Little GFR Left ESRD GFR <15 on FELT PULLER Procedures Date Code Description Status 01/23/2021 67531 Echocardiogram 2-D Doppler Color Completed 11/16/2020 00468 Office/Outpatient Established Mo d MDM 30-39 Min Completed 11/16/2020 97300 ECG 12-Lead Completed 10/02/2020 95323 Office/Outpatient Established Lo w MDM 20-29 Min Completed 10/02/2020 25247 ECG 12-Lead Completed Medical Devices Description No Information Available Encounters Type Date Location Provider Dx Diagnosis Office Visit 11/16/2020 2:00p Main Office MONICA Quintana R06 .02 Shortness of breath 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 I11.9 [facility] Thoracic aortic ectasia I35.0 Nonrheumatic aortic (valve) stenosis R94.31 Abnormal electrocardiogram [ ECG] [EKG] E66.8 Other obesity Z71.3 Dietary counseling and surve illance Office Visit 10/02/2020 12:45p Main Office MONICA Quintana I11 .9 Hypertensive heart disease without heart failure R94.31 Abnormal electrocardiogram [ ECG] [EKG] Assessments Date Code Description Provider 01/23/2021 R06.02 Shortness of breath ECHO 11/16/2020 R06.02 Shortness of breath MONICA Quintana 11/16/2020 I25.10 Atherosclerotic heart disease of [place] coronary artery with MONICA Quintana 11/16/2020 I11.9 Hypertensive heart disease witho ut heart failure MONICA Quintana 11/16/2020 I77.810 Thoracic aortic ectasia MONICA Dutta 11/16/2020 I35.0 Nonrheumatic aortic (valve) sten osis MONICA Quintana 11/16/2020 R94.31 Abnormal electrocardiogram [ECG] [EKG] MONICA Quintana 11/16/2020 E66.8 Other obesity MONICA Mcnally Cha, se 11/16/2020 Z71.3 Dietary counseling and surveilla nce MONICA Quintana 10/02/2020 I11.9 Hypertensive heart disease witho tn heart failure MONICA Quintana 10/02/2020 R94.31 Abnormal electrocardiogram [ECG] [EKG] MONICA Quintana Plan of Treatment Future Appointment(s):* 05/22/2021 3:00 pm - MONICA Quintana at Main Office 11/16/2020 - MONICA Quintana* R06.02 Shortness of breath* New Labs:* BMP, Ordered: 11/16/20 * NT Probnp QN Ser/Plas, Ordered: 11/16/20 * Recommendations:* Echocardiogram Doppler and labs ordered for further evaluation Advised patient to monitor his weight daily and alert us with a weight gain of greater than 3 pounds in a day Encouraged patient to use his inhalers, especially his rescue inhaler prior to activities known to flare of his breathing to see if this helps alonso any symptoms Advised patient to please seek medical attention with the onset of any worsening shortness of breath * I25.10 Atherosclerotic heart disease of [place] coronary artery with* Recommendations:* Continue aspirin, losartan, and atorvastatin therapy at the current dosages Plan for repeat stress test in 2021 Patient has nitroglycerin to use if symptoms arise Advised patient to contact our office with any chest pain, shortness of breath, new or concerning symptoms * I11.9 Hypertensive heart disease without heart failure* New Medication:* Dilt- XR 120 mg - 1 by mouth every day in the morning * Recommendations:* Continue losartan at the current dosage Begin diltiazem once daily in the morning Advised patient to please monitor blood pressures at home and to alert our office with readings * I77.810 Thoracic aortic ectasia* Recommendations:* Repeat echocardiogram ordered as above * I35.0 Nonrheumatic aortic (valve) stenosis* Recommendations:* As per thoracic aortic ectasia category above * R94.31 Abnormal electrocardiogram [ECG] [EKG]* Recommendations:* No further evaluation is needed at this time. * E66.8 Other obesity * Z71.3 Dietary counseling and surveillance* Recommendations:* Recommended for patient to follow a more whole food diet. Advised patient to avoid overly processed foods and packaged foods. Advised patient to avoid sodas, juices and other liquid calories. Recommended at least 30 minutes of exercise 3 days a week. * All * Follow up:* Follow up in 6 months Functional Status Functional Condition Comment Date Status Independent with all ADL's Activ e Mental Status Description No Information Available Referrals Refer to Reason for Referral Status Appt Date Eren Gutierrez MD ECHO AUTH EMR-EXPIRES 04/15/21. [place] Created [id number] [facility] [id number] [phone]
--- OUTSIDE RECORDS SUMMARY | 2021-04-18 21:28 | CCD ---
Author Author [facility] Organization [facility] Address Unknown Phone Unavailable Care Team Providers Care Director Of Primary Care Name Role Phone Galilea Roblero Unavailable PROBLEMS Type Condition ICD9-CM Code RAF46-JT Code Onset Dates Condition S tatus W/U Status Risk SNOMED Code Notes Problem Obstructive sleep apnea G47.33 Active confirmed 55614365 Problem Asthma J45.909 Active confirmed 202384758 Problem Type 2 diabetes mellitus with hyperglycemia E11.65 Active confirmed 659264757371693 Problem Other and unspecified hyperlipidemia E78.5 Act artemio confirmed 20794642 Problem Other asthma J45.998 Active confirmed 606301 001 Problem Hypothyroidism, unspecified E03.9 Active confirmed 40616257 Problem Obstructive sleep apnea (adult) (pediatric) G47.33 Active confirmed 60596442 Problem Hypothyroidism E03.9 Active confirmed 09111 008 Problem Essential (primary) hypertension I10 Active conf irmed 87518281 Problem Other anxiety states F41.1 Active confirmed 521642126 Problem Type 2 diabetes mellitus without complications E11 .9 Active confirmed 644571614 Problem Depression, unspecified depression type F32.9 Active confirmed 41727249 Problem Coronary artery disease invo lving table [facility] with unstable angina pectoris, unspecified vessel or lesion type I25.110 Active confirmed 04919721 Problem LUCILA (obstructive sleep apnea) G47.33 Active confirm ed 36923770 Problem Other obesity E66.8 Active confirmed 131348 001 Problem Obesity E66.9 Active confirmed 137420029 Problem Right chronic serous otitis media H65.21 Active confirmed 466102362 Problem Other hyperlipidemia E78.4 Active confirmed 57434359 Problem DM w/o complication type II E11.9 Active confirmed 182607770 Problem Esophageal reflux K21.9 Active confirmed 23 0211916 Problem 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 Active confirmed 42447391 Problem Allergic rhinitis, unspecified J30.9 Active confir med 09962892 Problem Anxiety F41.9 Active confirmed 66870015 Problem 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 Active confirmed 52444434 ALLERGIES Allergen (clinical drug ingredient) Drug/Non Drug Allergy do cumented on EMR Reaction Allergy Type Onset Date Status pseudoephedrine Pseudoephedrine HCl([facility] Code:[address]- 61) hospitalized for hypertensive urgency Drug Allergy Active amoxicillin / clavulanate Augmentin(ND Code:[address]-36) Unkn own Drug Allergy Active cefdinir Cefdinir([facility] Code:[address]-42) Tongue tingling Drug Freddie rgy Active campo Anaphylaxis Non Drug Allergy Active Sulfa (for allergy use only) anaphylaxis Drug Allergy Active ENCOUNTERS from 1960 to 2021-02-14 Encounter Location Date Provider Diagnosis [place] [address] [facility] [phone] [place] [address] 11 Feb, 2021 Galilea Roblero IMMUNIZATIONS Vaccine Route Administration Date [...] Education Language: Question Answer Notes Languages spoken: Sudanese Nondenominational: Question Answer Notes Nondenominational 08 Anabaptism Sexual Hx: Question Answer Notes Had sex [...] Orally Once a day for 10 day(s) 1 Feb, Active Admelog SoloStar 100 UNIT/ML as [...] 6 hrs Active PROCEDURES No Information RESULTS No Results REASON FOR VISIT L testicle pain MEDICAL (GENERAL) HISTORY Type Description Date Medical [...] Surgical History septoplasty Surgical History cardiac cath ([facility]) 09/2012 Surgical History EGD/colonoscopy 2010 Surgical History Angioplasty- [facility]: Gerda 02/23 17 Surgical History Colonoscopy- Dr. Castellon. + adenoma: repe at due 04/2017 Surgical History Cardiac Stent: [facility] 08/2017 Hospitalization History asthma exacerbation 09/2011 Hospitalization History unstable angina, angioplasty [facility] Hospitalization History [facility] [place]/Stent 08/2017 Hospitalization History [facility] [place]-Colitis 06/2020 Goals Section No Information Health Concerns No Information MEDICAL EQUIPMENT No Information MENTAL STATUS No Information FUNCTIONAL STATUS No Information ASSESSMENTS No Information PLAN OF TREATMENT Medication Medication Name Sig Start Date Stop Date Levaquin 500 MG 1 tablet Orally Once a day for 10 day(s) Feb, traMADol HCl 50 MG 1 tablet as needed Orally QID prn pain f or 5 days Feb, Next Appt Details Provider Name:Galilea Roblero, 03-06 04:00:00 PM, [address], , [place], [address], Insurance Providers Payer Name Payer Address Payer Phone Insured Name Patient Relati onship to Insured Coverage Start Date Coverage End Date [facility] CORPORATE CLAIMS DEPT [address] [facility] [phone] MARILYN SHIELDS self
--- OUTSIDE RECORDS SUMMARY | 2021-04-18 21:28 | CCD | Continuity of Care Document ---
Author Kuldip Valdez Organization Unknown Address [address] [place] [address], [place] [address] Phone [phone] Care Team Providers Care Commercial Property Manager Name Role Phone Galilea Roblero TEREZA AUTM [phone] Tristan Fatima MD AUTM [phone] Problems Active Problems Provider Date Essential hypertension [...] Test Result H/L Range Note BMP 11/16/2020 [facility] nter [phone] Glucose, Fasting 246 mg/dL High 70-100 Blood [...] mg/dL Normal 8.5-10.1 Laboratory test finding 11/16/2020 [facility] [phone] NT-Pro BNP 94 pg/mL Normal <125 Comprehensive Metabolic Profil 09/27/2020 [facility] [phone] Glucose, Fasting 150 mg/dL High 70-100 Blood [...] Little GFR Left ESRD GFR <15 on COMPUTATIONAL GENETICIST 2 Units are mL/min/1.73 m2 Chronic Kidney Disease Staging per NKF: Stage I & II GFR >=60 Normal to Mildly Decreased Stage III GFR 30-59 Moderately Decreased Stage IV GFR 15-29 Severely Decreased Stage V GFR <15 Very Little GFR Left ESRD GFR <15 on COMPUTATIONAL GENETICIST Procedures Date Code Description Status 01/23/2021 74800 Echocardiogram 2-D Doppler Color Completed 11/16/2020 18832 Office/Outpatient Established Mo d MDM 30-39 Min Completed 11/16/2020 70516 ECG 12-Lead Completed 10/02/2020 53885 Office/Outpatient Established Lo w MDM 20-29 Min Completed 10/02/2020 32669 ECG 12-Lead Completed Medical Devices Description No Information Available Encounters Type Date Location Provider Dx Diagnosis Office Visit 11/16/2020 2:00p Main Office MONICA Quintana R06 .02 Shortness of breath 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[place] 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 I11.9 [facility]810 Thoracic aortic ectasia [...] Quintana 11/16/2020 I25.10 Atherosclerotic heart disease of [place] coronary artery with MONICA Quintana 11/16/2020 I11.9 Hypertensive heart disease witho ut heart failure MONICA Quintana 11/16/2020 I77.810 Thoracic aortic ectasia MONICA Dutta 11/16/2020 I35.0 Nonrheumatic aortic (valve) sten osis MONICA Quintana 11/16/2020 R94.31 Abnormal electrocardiogram [ECG] [EKG] MONICA Quintana 11/16/2020 E66.8 Other obesity MONICA Mcnally Cha, se 11/16/2020 Z71.3 Dietary counseling and surveilla nce MONICA Quintana 10/02/2020 I11.9 Hypertensive heart disease witho hi heart failure MONICA Quintana 10/02/2020 R94.31 Abnormal [...] breath * I25.10 Atherosclerotic heart disease of [place] coronary artery with* Recommendations:* Continue aspirin, losartan, [...] MD ECHO AUTH EMR-EXPIRES 04/15/21. [place] Created [address] [facility] [id number] [phone]
--- OUTSIDE RECORDS SUMMARY | 2021-04-18 21:29 | CCD ---
Author Author [facility] Organization [facility] Address Unknown Phone Unavailable Care Team Providers Care Support Team Member Name Role Phone Chase, L Antonella REAL ESTATE EXECUTIVE ASSISTANT Unavailable Unavailable Chase, L Antonella REAL ESTATE EXECUTIVE ASSISTANT Unavailable Unavailable Chase, L Antonella REAL ESTATE EXECUTIVE ASSISTANT Unavailable Unavailable Chase, L Antonella REAL ESTATE EXECUTIVE ASSISTANT Unavailable Unavailable Chase, L Antonella REAL ESTATE EXECUTIVE ASSISTANT Unavailable Unavailable Chase, L Antonella REAL ESTATE EXECUTIVE ASSISTANT Unavailable Unavailable Chase, L Antonella REAL ESTATE EXECUTIVE ASSISTANT Unavailable Unavailable Chase, L Antonella REAL ESTATE EXECUTIVE ASSISTANT Unavailable Unavailable Chase, L Antonella REAL ESTATE EXECUTIVE ASSISTANT Unavailable Unavailable Chase, L Antonella REAL ESTATE EXECUTIVE ASSISTANT Unavailable Unavailable Chase, L Antonella REAL ESTATE EXECUTIVE ASSISTANT Unavailable Unavailable Chase, L Antonella REAL ESTATE EXECUTIVE ASSISTANT Unavailable Unavailable Chase, L Antonella REAL ESTATE EXECUTIVE ASSISTANT Unavailable Unavailable Chase, L Antonella REAL ESTATE EXECUTIVE ASSISTANT Unavailable Unavailable Chase, L Antonella REAL ESTATE EXECUTIVE ASSISTANT Unavailable Unavailable Chase, L Antonella REAL ESTATE EXECUTIVE ASSISTANT Unavailable Unavailable Chase, L Antonella REAL ESTATE EXECUTIVE ASSISTANT Unavailable Unavailable Chase, L Antonella REAL ESTATE EXECUTIVE ASSISTANT Unavailable Unavailable Chase, L Antonella REAL ESTATE EXECUTIVE ASSISTANT Unavailable Unavailable Chase, L Antonella REAL ESTATE EXECUTIVE ASSISTANT Unavailable Unavailable Chase, L Antonella REAL ESTATE EXECUTIVE ASSISTANT Unavailable Unavailable Chase, L Antonella REAL ESTATE EXECUTIVE ASSISTANT Unavailable Unavailable Chase, L Antonella REAL ESTATE EXECUTIVE ASSISTANT Unavailable Unavailable Chase, L Antonella REAL ESTATE EXECUTIVE ASSISTANT Unavailable Unavailable Chase, L Antonella REAL ESTATE EXECUTIVE ASSISTANT Unavailable Unavailable Spenser, L Jessie PA Unavailable [...] Unavailable Spenser, L Jessie PA Unavailable Unavailable MAUREEN, RACHEL WRIGHT Unavailable Unavailable REINDL, RACHEL WRIGHT [...] Unavailable Unavailable REINDL, RACHEL WRIGHT Unavailable Unavailable MAUREEN, RACHEL WRIGHT Unavailable Unavailable MAUREEN, RACHEL WRIGHT Unavailable Unavailable REINRACHEL BECKER MD Unavailable Unavailable REINRACHEL BECKER MD Unavailable Unavailable REINDL, RACHEL WRIGHT Unavailable Unavailable REINDL, RACHEL WRIGHT Unavailable Unavailable REINDL, RACHEL WRIHGT Unavailable Unavailable REINDL, RACHEL WRIGHT Unavailable Unavailable REINDLRACHEL MD Unavailable Unavailable REINDL, RACHEL WRIGHT Unavailable Unavailable REINDL, RACHEL WRIGHT Unavailable Unavailable JOSÉ MIGUELDL, RACHEL WRIGHT Unavailable Unavailable REINEUGENIO, RACHEL WRIGHT Unavailable Unavailable REINDL, RACHEL WRIGHT Unavailable Unavailable REINDL, RACHEL WRIGHT Unavailable Unavailable REINDL, RACHEL WRIGHT Unavailable Unavailable JOSÉ MIGUELDL, RACHEL WRIGHT Unavailable Unavailable JOSÉ MIGUELDL, RACHEL WRIGHT Unavailable Unavailable MAUREEN, RACHEL WRIGHT Unavailable Unavailable REINEUGENIO, RACHEL WRIGHT Unavailable Unavailable REINEUGENIO, RACHEL WRIGHT Unavailable Unavailable MAUREEN, RACHEL WRIGHT Unavailable Unavailable REINDL, RACHEL WRIGHT Unavailable Unavailable REINDL, RACHEL WRIGHT Unavailable Unavailable REINDL, RACHEL WRIGHT Unavailable Unavailable Agustin Padilla MD Unavailable Unavailable Agustin Padilla MD Unavailable Unavailable Agustin Padilla MD Unavailable Unavailable Agustin Padilla MD Unavailable Unavailable Agustin Padilla MD Unavailable Unavailable Agustin Padilla MD Unavailable Unavailable Agustin Padilla MD Unavailable Unavailable Agustin Padilla MD Unavailable Unavailable Agustin Padilla MD Unavailable Unavailable Agustin Padilla MD Unavailable Unavailable Agustin Padilla MD Unavailable Unavailable Lisa, Ruban Unavailable Unavailable [...] Ruban Unavailable Unavailable Lisa, Ruban Unavailable Unavailable ARPIT, L TERESA PA Unavailable Unavailable ARPIT, L TERESA PA Unavailable Unavailable ARPIT, L TERESA PA Unavailable Unavailable ARPIT, L TERESA PA Unavailable Unavailable ARPIT, L TERESA PA Unavailable Unavailable ARPIT, L TERESA PA Unavailable Unavailable ARPIT, L TERESA PA Unavailable Unavailable ARPIT, L TERESA PA Unavailable Unavailable ARPIT, L TERESA PA Unavailable Unavailable ARPIT, L TERESA PA Unavailable Unavailable ARPIT, L TERESA PA Unavailable Unavailable ARPIT, L TERESA PA Unavailable Unavailable ARPIT, L TERESA PA Unavailable Unavailable ARPIT, L TERESA PA Unavailable Unavailable ARPIT, L TERESA PA Unavailable Unavailable ARPIT, L TERESA PA Unavailable Unavailable GENA, SATYA PA Unavailable [...] Unavailable Unavailable GENA, SATYA PA Unavailable Unavailable Re-disclosure Warning The records that [...] is protected by Article 27-F of the [facility] Public Health law. If you continue you may have access to information: Regarding HIV / AIDS; Provided by facilities licensed or operated by the [facility] Office of Mental Health; or Provided by the [facility] Office for People With Developmental Disabilities. If such information is present, then the following [facility] mandated warning applies: This information has been [...] law may result in a fine or senior living sentence or both. A general authorization for the release of medical or other information is NOT sufficient authorization for further disc losure. Family History Family Member Name Family Member Gender Family Member Status Date o f Status Description Data Source(s) Unknown Male Problem [facility] ([facility]) Unknown Unknown Problem MEDENT ([facility]) Unknown Unknown Problem MEDENT ([facility]) Unknown Unknown Problem MEDENT ([facility]) Unknown Female Problem MEDENT ([facility]) Unknown Female Problem MEDENT ([facility]) Encounters Encounter Providers Location Date Indications Data Source(s ) Outpatient Attender: Evan Gonzalez 11/12/2021 12:00:00 AM [facility] Outpatient Attender: Evan Gonzalez 10/29/2021 12:00:00 AM [facility] Outpatient Attender: SATYA ANDERSON 06/04/2021 12:00:0 0 AM [facility] Outpatient [address], [place] [facility] [address] 03/06/2021 12:00:00 AM EDT eCW1 ([facility]) Outpatient Attender: SATYA ANDERSON 03/02/2021 12:00:0 0 AM [facility] Outpatient Attender: Evan Gonzalez 03/01/2021 12:00:00 AM EDT [facility] [place] [address] [address] 02/14/2021 12:00:00 AM EDT eCW1 ([facility]) [place] [address] [address] 02/14/2021 12:00:00 AM EDT eCW1 ([facility]) [place] [address] [address] 02/02/2021 12:00:00 AM EDT eCW1 ([facility]) Outpatient Attender: Antonella Madera/Clarisa/Yasmany/Reindl 01/23/2021 02:30:00 PM EDT MED[facility] ([facility]) [place] [address] [address] 01/01/2021 12:00:00 AM EDT eCW1 ([facility]) Outpatient Attender: RACHEL Madera/Clarisa/Yasmany/Rein dl 11/29/2020 01:00:00 PM EDT [facility] ([facility]) [place] [address] [address] 11/24/2020 12:00:00 AM EDT eCW1 ([facility]) Outpatient Attender: TERESA ANDERSON Main Office 11/16/2020 0 2:00:00 PM EDT MEDENT ([facility]) Outpatient Attender: SATYA ANDERSON [id number] 11/01/2020 1 2:00:00 AM EDT intermediate card tender (current) use of insulin [facility] intermediate card tender (current) use of insulin Unknown [address] [address] 10/05/2020 12:00:00 AM EDT eCW1 ([facility]) Outpatient Attender: TERESA ANDERSON Main Office 10/02/2020 1 2:45:00 PM EDT MEDENT ([facility]) Outpatient Attender: Marilyn Padilla MD Physical Therapy 02:45:00 PM EDT MEDENT ([facility]) [place] [address] [address] 09/20/2020 12:00:00 AM EDT eCW1 ([facility]) Outpatient Attender: RACHEL Madera/Clarisa/Yasmany/José Miguel becker 09/06/2020 01:30:00 PM EST MED[facility] ([facility]) Outpatient Attender: SATYA ANDERSON [id number] 12:00:00 AM EST - 09/01/2020 03:34:09 PM EST intermediate card tender (current) use of insulin [facility] (current) use of insulin [place] [address] [address] 08/29/2020 12:00:00 AM EST eCW1 ([facility]) [place] [address] [address] 08/29/2020 12:00:00 AM EST eCW1 ([facility]) [place] [address] [address] 08/23/2020 12:00:00 AM EST [facility] Outpatient Attender: Evan Gonzalez 08/03/2020 12:00:00 AM EST [facility] [place] [address] [address] 07/31/2020 12:00:00 AM EST eCW1 [facility] [place] [address] [address] 07/31/2020 12:00:00 AM EST eCW1 [facility] [place] [address] [address] 07/28/2020 12:00:00 AM EST eCW1 ([facility]) [place] [address] [address] 07/27/2020 12:00:00 AM EST eCW1 ([facility]) [place] [address] [address] 07/24/2020 12:00:00 AM EST eCW1 ([facility]) [place] [address] [address] 07/21/2020 12:00:00 AM EST eCW1 ([facility]) [place] [address] [address] 07/20/2020 12:00:00 AM EST eCW1 ([facility]) [place] [address] [address] 07/20/2020 12:00:00 AM EST eCW1 ([facility]) [place] [address] [address] 07/20/2020 12:00:00 AM EST eCW1 ([facility]) [place] [address] [address] 07/13/2020 12:00:00 AM EST eCW1 ([facility]) [place] [address] [address] 07/13/2020 12:00:00 AM EST eCW1 ([facility]) [place] [address] [address] 07/11/2020 12:00:00 AM EST eCW1 ([facility]) [place] [address] [address] 07/11/2020 12:00:00 AM EST eCW1 ([facility]) [place] [address] [address] 07/10/2020 12:00:00 AM EST eCW1 ([facility]) [place] [address] [address] 07/05/2020 12:00:00 AM EST eCW1 ([facility]) [place] [address] [address] 07/04/2020 12:00:00 AM EST eCW1 ([facility]) [place] [address] [address] 06/15/2020 12:00:00 AM EST eCW1 ([facility]) [place] [address] [address] 06/09/2020 12:00:00 AM EST eCW1 ([facility]) [place] [address] [address] 06/08/2020 12:00:00 AM EST eCW1 ([facility]) [place] [address] [address] 05/26/2020 12:00:00 AM EST eCW1 ([facility]) [place] [address] [address] 05/24/2020 12:00:00 AM EST eCW1 ([facility]) Outpatient Attender: Jessie ANDERSON Main Office 05/12/2020 07:15:0 0 AM EST MEDENT ([facility]) Outpatient Attender: ASTYA ANDERSON [id number] 12:00:00 AM EDT - 04/20/2020 12:42:09 PM EDT Type 2 diabetes mellitus with hyperglycemia [facility] Type 2 diabetes mellitus with hyperglyce starla Outpatient Attender: Antonella Madera/Clarisa/Yasmany/Maureen 03/30/2020 10:00:00 AM EDT [facility] ([facility] Immunizations Vaccine Date Status Description Data Source(s) pneumococcal polysaccharide PPV23 03/06/2021 12:06:00 PM EDT comple allan eCW1 ([facility]) Tdap 03/06/2021 12:05:00 PM EDT completed e CW1 ([facility]) Medications Medication Brand Name Start Date Product Form Dose Route Admi nistrative Instructions Pharmacy Instructions Status Indications Reaction Description Data Source(s) tramadol hydrochloride 50 MG Oral Tablet traMADol HCl 50 MG traMADol HCl 50 MG 02/14/2021 12:00:00 AM EDT 1.0 {tablet_as_needed} active traMADol HCl 50 MG eCW1 ([facility]) Levofloxacin 500 MG Oral Tablet Levaquin 500 MG Levaquin 500 MG 02/14/2021 12:00:00 AM EDT 1.0 {tablet} active Le vaquin 500 MG eCW1 ([facility]) Levofloxacin 500 MG Oral Tablet Levaquin 500 MG Levaquin 500 MG 02/14/2021 12:00:00 AM EDT 1.0 {tablet} suspended Levaquin 500 MG eCW1 ([facility]) Levofloxacin 500 MG Oral Tablet Levaquin 500 MG Levaquin 500 MG 02/14/2021 12:00:00 AM EDT 1.0 {tablet} active Le vaquin 500 MG eCW1 ([facility]) tramadol hydrochloride 50 MG Oral Tablet traMADol HCl 50 MG traMADol HCl 50 MG 02/14/2021 12:00:00 AM EDT 1.0 {tablet_as_needed} active traMADol HCl 50 MG eCW1 ([facility]) tramadol hydrochloride 50 MG Oral Tablet traMADol HCl 50 MG traMADol HCl 50 MG 02/14/2021 12:00:00 AM EDT 1.0 {tablet_as_needed} active traMADol HCl 50 MG eCW1 ([facility]) 24 HR Diltiazem Hydrochloride 120 MG Extended Release Oral Capsule [Dilt] Dilt-XR 11/16/2020 12:00:00 AM EDT ORAL active MEDENT ([facility]) FreeStyle Shabbir 2 Sensor 44109-548-57 11/01/2020 12:00:00 AM EDT 1 {each} Does not apply active 1 each by Does not apply route every 14 (fourteen) days Use as directed. Dx:E11.65 [facility] 100 unit/mL 10/27/2020 12:00:00 AM EDT insulin pen 30 INJECT PER SLIDING SCALE, MAXIMUM DAILY DOSE = 100UNITS WITH PRIMING AND TITRATION INJECT PER SLIDING SCALE, MAXIMUM DAILY DOSE = 100UNITS WITH PRIMING AND TITRATION SOLD: 02/18/2021 [facility] 3 ML Insulin Lispro 100 UNT/ML Pen Injec tor Insulin Lispro (1 Unit Dial) 100 UNIT/ML Subcutaneous Solution Pen-injector (Admelog SoloStar) Insulin Lispro (1 Unit Dial) 100 UNIT/ML Subcutaneous Solution Pen-injector (Admelog SoloStar) 10/26/2020 12:00:00 AM EDT act artemio Type 2 diabetes mellitus with hyperglycemia, with long-term current use of insulin I nject as per sliding scale. MDD- 100 units with priming and titration.Dx: E11.65 [facility] Type 2 diabetes mellitus with hyperglyce starla, with long-term current use of insulin Chlorthalidone 25 MG Oral Tablet Chlorthalidone 25 MG Oral Tablet (HYGROTON) Chlorthalidone 25 MG Oral Tablet (HYGROTON) 10/25/2020 12:00:[address] [facility] Cholecalciferol 1999 UNT Oral Capsule Vitamin D3 50 MC G (1999) Oral Capsule Vitamin D3 50 MCG (1999) Oral Capsule 10/17/2020 12:00:00 AM EDT active TAKE TWO CAPSULES BY MOUTH EVERY DAY [facility] 120 ACTUAT Albuterol 0.1 MG/ACTUAT / Ipr atropium [place] 0.02 MG/ACTUAT Metered Dose Inhaler [Combivent] Combivent Respimat 20-100 MCG/ACT Inhalation Aerosol Solution Combivent Respimat 20-100 MCG/ACT Inhalation Aerosol S olution 10/02/2020 12:00:00 AM EDT active INHALE ONE PUFF BY MOUTH THREE TIMES A DAY [facility] doxycycline hyclate 100 MG Oral Capsule Doxycycline Hyclate 10/01/2020 12:00:00 AM EDT ORAL completed MEDENT ([facility]) 3 ML Insulin Lispro 25 UNT/ML / Insulin, Protamine Lispro, Human 75 UNT/ML Pen Injector [Humalog Mix] Humalog Mix 75/25 Kwikpen 10/01/2020 12:00:00 AM EDT active [facility] ([facility]) Basaglar Kwikpen Basaglar Kwikpen 10/01/2020 12:00:00 AM EDT active [facility] ([facility] Trulicity Trulicity 10/01/2020 12:00:00 AM EDT act artemio MEDENT ([facility]) Levothyroxine Sodium 0.125 MG Oral Table t Levothyroxine Sodium 125 MCG Oral Tablet (SYNTHROID) Levothyroxine Sodium 125 MCG Oral Tablet (SYNTHROID) 2020 12:00:00 AM EDT active Other specified hypothyroidism TAKE ONE TABLET BY MOUTH EVERY DAY [facility] Other specified hypothyroidism BD Pen Needle Original U/F 29G X 12.7MM (Insulin Pen Needle) [id number] 2020 12:00:00 AM EDT act artemio Type 2 diabetes mellitus with hyperglycemia, with long-term current use of insulin U se as directed. INJECT DIRECTED UP TO 6 TIMES PER DAY [facility] Type 2 diabetes mellitus with hyperglyce starla, with long-term current use of insulin doxycycline hyclate 100 MG Oral Capsule Doxycycline Hy clate 100 MG Doxycycline Hyclate 100 MG 09/20/2020 12:00:00 AM EDT 1.0 {capsule} active Doxycycline Hyclate 100 MG eCW1 ([facility]) doxycycline hyclate 100 MG Oral Capsule Doxycycline Hy clate 100 MG Doxycycline Hyclate 100 MG 09/20/2020 12:00:00 AM EDT 1.0 {capsule} active Doxycycline Hyclate 100 MG eCW1 ([facility]) doxycycline hyclate 100 MG Oral Capsule Doxycycline Hy clate 100 MG Doxycycline Hyclate 100 MG 09/20/2020 12:00:00 AM EDT 1.0 {capsule} active eCW1 ([facility]) doxycycline hyclate 100 MG Oral Capsule Doxycycline Hy clate 100 MG Doxycycline Hyclate 100 MG 09/20/2020 12:00:00 AM EDT 1.0 {capsule} active Doxycycline Hyclate 100 MG eCW1 ([facility]) doxycycline hyclate 100 MG Oral Capsule Doxycycline Hy clate 100 MG Doxycycline Hyclate 100 MG 09/20/2020 12:00:00 AM EDT 1.0 {capsule} active Doxycycline Hyclate 100 MG eCW1 ([facility]) Chlorthalidone 25 MG Oral Tablet Chlorthalidone 25 MG 2020 12:00:00 AM EST 1.0 {tablet_in_the_morning_with_food} active Chlorthalidone 25 MG eCW1 ([facility]) Chlorthalidone 25 MG Oral Tablet Chlorthalidone 25 MG 2020 12:00:00 AM EST 1.0 {tablet_in_the_morning_with_food} active Chlorthalidone 25 MG eCW1 ([facility]) Chlorthalidone 25 MG Oral Tablet Chlorthalidone 25 MG 2020 12:00:00 AM EST 1.0 {tablet_in_the_morning_with_food} active Chlorthalidone 25 MG eCW1 ([facility]) Chlorthalidone 25 MG Oral Tablet Chlorthalidone 25 MG 2020 12:00:00 AM EST 1.0 {tablet_in_the_morning_with_food} active Chlorthalidone 25 MG eCW1 ([facility]) Chlorthalidone 25 MG Oral Tablet Chlorthalidone 25 MG 2020 12:00:00 AM EST 1.0 {tablet_in_the_morning_with_food} active Chlorthalidone 25 MG eCW1 ([facility]) Chlorthalidone 25 MG Oral Tablet Chlorthalidone 25 MG 2020 12:00:00 AM EST 1.0 {tablet_in_the_morning_with_food} active Chlorthalidone 25 MG eCW1 ([facility]) Chlorthalidone 25 MG Oral Tablet Chlorthalidone 25 MG 2020 12:00:00 AM EST 1.0 {tablet_in_the_morning_with_food} active Chlorthalidone 25 MG eCW1 ([facility]) Chlorthalidone 25 MG Oral Tablet Chlorthalidone 25 MG 2020 12:00:00 AM EST 1.0 {tablet_in_the_morning_with_food} active eCW1 ([facility]) Chlorthalidone 25 MG Oral Tablet Chlorthalidone 09/14/2020 12:00:00 A M EST ORAL completed [facility] ([facility] 25 mg 09/14/2020 12:00:00 AM EST tablet 6 TAKE 1/2 TABLET ON FRIDAY, FRIDAY AND FRIDAY TAKE 1/2 TABLET ON FRIDAY, FRIDAY AND FRIDAY SOLD: 09/14/2020 [facility] 2.5 mg 09/04/2020 12:00:00 AM EST tablet 30 TAKE ONE TABLET BY MOUTH EVERY DAY TAKE ONE TABLET BY MOUTH EVERY DAY SOLD: 09/04/2020 [facility] Amlodipine 2.5 MG Oral Tablet amLODIPine Besylate 2.5 MG Oral Tablet (NORVASC) amLODIPine Besylate 2.5 MG Oral Tablet (NORVASC) 09/04/2020 12:00:00 AM EST 2.5 mg Oral active Take 2.5 mg by mouth [facility] Amlodipine 2.5 MG Oral Tablet Amlodipine Besylate 09/04/2020 12:00: 00 AM EST ORAL completed [facility] ([facility]) Trulicity 3 MG/0.5ML Subcutaneous Solution Pen-injecto r (Dulaglutide) [id number] 09/01/2020 12:00:00 AM EST 3 mg Subcutaneous active Inject 3 mg into the skin once a week [facility] 0.4 mg 08/10/2020 12:00:00 AM EST tablet, sublingual [address] ONE TABLET UNDER THE TONGUE EVERY 5 MINUTES FOR UP TO 3 DOSES NEEDED FOR CHEST PAIN. IF CHEST PAIN STILL PERSISTS CONTACT [address] ONE TABLET UNDER THE TONGUE EVERY 5 MINUTES FOR UP TO 3 DOSES NEEDED FOR CHEST PAIN. IF CHEST PAIN STILL PERSISTS CONTACT 911 SOLD: 08/17/2020 [facility] Dexamethasone 2 MG Oral Tablet Dexamethasone 2 MG 07/31/2020 12:00: 00 AM EST 1.0 {tablet} suspended Dexamethasone 2 M G eCW1 ([facility]) Dexamethasone 2 MG Oral Tablet Dexamethasone 2 MG 07/31/2020 12:00: 00 AM EST 1.0 {tablet} suspended Dexamethasone 2 M G eCW1 ([facility]) May Have - UNK 07/31/2020 12:00:00 AM EST active May Have - eCW1 ([facility]) Dexamethasone 2 MG Oral Tablet Dexamethasone 2 MG 07/31/2020 12:00: 00 AM EST 1.0 {tablet} active Dexamethasone 2 MG eCW1 ([facility]) May Have - UNK 07/31/2020 12:00:00 AM EST active May Have - eCW1 ([facility]) May Have - UNK 07/31/2020 12:00:00 AM EST active May Have - eCW1 ([facility]) May Have - UNK 07/31/2020 12:00:00 AM EST active May Have - eCW1 ([facility]) Dexamethasone 2 MG Oral Tablet Dexamethasone 2 MG 07/31/2020 12:00: 00 AM EST 1.0 {tablet} suspended Dexamethasone 2 M G eCW1 ([facility]) Dexamethasone 2 MG Oral Tablet Dexamethasone 2 MG 07/31/2020 12:00: 00 AM EST 1.0 {tablet} suspended Dexamethasone 2 M G eCW1 ([facility]) May Have - UNK 07/31/2020 12:00:00 AM EST active May Have - eCW1 ([facility]) May Have - UNK 07/31/2020 12:00:00 AM EST active May Have - eCW1 ([facility]) Dexamethasone 2 MG Oral Tablet Dexamethasone 2 MG 07/31/2020 12:00: 00 AM EST 1.0 {tablet} suspended Dexamethasone 2 M G eCW1 ([facility]) May Have - UNK 07/31/2020 12:00:00 AM EST active May Have - eCW1 ([facility]) May Have - UNK 07/31/2020 12:00:00 AM EST active May Have - eCW1 ([facility]) Dexamethasone 2 MG Oral Tablet Dexamethasone 2 MG 07/31/2020 12:00: 00 AM EST 1.0 {tablet} active Dexamethasone 2 MG eCW1 ([facility]) May Have - UNK 07/31/2020 12:00:00 AM EST active May Have - eCW1 ([facility]) Dexamethasone 2 MG Oral Tablet Dexamethasone 2 MG 07/31/2020 12:00: 00 AM EST 1.0 {tablet} suspended Dexamethasone 2 M G eCW1 ([facility]) Dexamethasone 2 MG Oral Tablet Dexamethasone 2 MG 07/31/2020 12:00: 00 AM EST 1.0 {tablet} suspended Dexamethasone 2 M G eCW1 ([facility]) May Have - UNK 07/31/2020 12:00:00 AM EST active May Have - eCW1 ([facility]) Dexamethasone 2 MG Oral Tablet Dexamethasone 2 MG 07/31/2020 12:00: 00 AM EST 1.0 {tablet} active Dexamethasone 2 MG eCW1 ([facility]) May Have - UNK 07/31/2020 12:00:00 AM EST active May Have - eCW1 ([facility]) Dexamethasone 2 MG Oral Tablet Dexamethasone 2 MG 07/31/2020 12:00: 00 AM EST 1.0 {tablet} suspended Dexamethasone 2 M G eCW1 ([facility]) May Have - UNK 07/31/2020 12:00:00 AM EST active May Have - eCW1 ([facility]) May Have - UNK 07/31/2020 12:00:00 AM EST active May Have - eCW1 ([facility]) Dexamethasone 2 MG Oral Tablet Dexamethasone 2 MG 07/31/2020 12:00: 00 AM EST 1.0 {tablet} suspended eCW1 ([facility]) Dexamethasone 2 MG Oral Tablet Dexamethasone 2 MG 07/31/2020 12:00: 00 AM EST 1.0 {tablet} suspended Dexamethasone 2 M G eCW1 ([facility]) May Have - UNK 07/31/2020 12:00:00 AM EST active eCW1 ([facility]) Dexamethasone 2 MG Oral Tablet Dexamethasone 2 MG 07/31/2020 12:00: 00 AM EST 1.0 {tablet} suspended Dexamethasone 2 M G eCW1 ([facility]) 50 mg 07/19/2020 12:00:00 AM EST tablet [...] MOUTH THREE TIMES A DAY SOLD: 07/19/2020 [facility] 125 mg 07/18/2020 12:00:00 AM EST capsule 36 TAKE ONE CAPSULE BY MOUTH FOUR TIMES A DAY TAKE ONE CAPSULE BY MOUTH FOUR TIMES A DAY SOLD: 07/19/2020 [facility] benzonatate 100 MG Oral Capsule BENZONATATE 07/12/2020 12:00:00 AM EST capsule 30 TAKE ONE CAPSULE BY MOUTH THREE TIMES A DAY FOR COUGH TAKE ONE CAPSULE BY MOUTH THREE TIMES A DAY FOR COUGH SOLD: 07/12/2020 [facility] 90 mcg/actuation 07/12/2020 12:00:00 AM EST HFA aerosol inha ler 8 USE 2 PUFFS BY MOUTH EVERY 6 HOURS NEEDED FOR SHORTNESS OF BREATH / COUGH USE 2 PUFFS BY MOUTH EVERY 6 HOURS NEEDED FOR SHORTNESS OF BREATH / COUGH SOLD: 07/12/2020 [facility] 750 mg 07/12/2020 12:00:00 AM EST tablet 7 TAKE ONE TABLET BY MOUTH EVERY DAY TAKE ONE TABLET BY MOUTH EVERY DAY SOLD: 07/12/2020 [facility] 125 mg 07/04/2020 [...] TIMES A DAY SOLD: 07/04/2020 [facility] 500 mg 06/06/2020 12:00:00 AM EST tablet 14 TAKE ONE TABLET BY MOUTH TWICE A DAY TAKE ONE TABLET BY MOUTH TWICE A DAY SOLD: 06/06/2020 [facility] Metronidazole 500 MG Oral Tablet METRONIDAZOLE 06/06/2020 12:0 0:00 AM EST tablet 30 TAKE ONE TABLET BY MOUTH THREE T IMES A DAY TAKE ONE TABLET BY MOUTH THREE TIMES A DAY SOLD: 06/06/2020 [facility] 4 mg 06/05/2020 12:00:00 AM EST tablet,disintegrating 8 DISSOLVE 1 TABLET BY MOUTH EVERY 6 TO 8 HOURS NEEDED FOR NAUSEA AND VOMITING DISSOLVE 1 TABLET BY MOUTH EVERY 6 TO 8 HOURS NEEDED FOR NAUSEA AND VOMITING SOLD: 06/06/2020 [facility] Cholecalciferol 2000 UNT Oral Capsule Vitamin D3 05/11/2020 12:00:00 AM EST ORAL active MEDENT ([facility]) 3 ML Insulin, Aspart, Human 100 UNT/ML P en Injector [NovoLog] NovoLOG FlexPen 100 UNIT/ML Subcutaneous Solution Pen-injector (insulin aspart) NovoLOG FlexPen 100 UNIT/ML Subcutaneous Solution Pen-injector (insulin aspart) 05/04/2020 12:00:00 AM EDT aborted Type 2 diabetes mellitus with hyperglycemia, with long-term current use of insulin INJECT UNDER THE SKIN THREE TIMES A DAY MAXIMUM DAILY DOSE = 125UNITS [facility] Type 2 diabetes mellitus with hyperglyce starla, with long-term current use of insulin 100 unit/mL 04/30/2020 12:00:00 AM EDT insulin pen 45 INJECT SUBCUTANEOUSLY DAILY PER INSULIN ORDERS MAXIMUM DAILY DOSE = 140 UNITS WITH TITRATION AND PRIMING INJECT SUBCUTANEOUSLY DAILY PER INSULIN ORDERS MAXIMUM DAILY DOSE = 140 UNITS WITH TITRATION AND PRIMING SOLD: 09/27/2020 [facility] 100 unit/mL 04/30/2020 12:00:00 AM [...] PRIMING SOLD: 05/26/2020 [facility] 100 unit/mL 04/30/2020 12:00:00 AM EDT insulin pen 45 INJECT SUBCUTANEOUSLY DAILY PER INSULIN ORDERS MAXIMUM DAILY DOSE = 140 UNITS WITH TITRATION AND PRIMING INJECT SUBCUTANEOUSLY DAILY PER INSULIN ORDERS MAXIMUM DAILY DOSE = 140 UNITS WITH TITRATION AND PRIMING SOLD: 07/26/2020 [facility] 100 unit/mL 04/30/2020 12:00:00 AM [...] 140 UNITS WITH TITRATION AND PRIMING SOLD: 08/24/2020 [facility] 3 ML Insulin Lispro 100 UNT/ML Pen Injec tor Insulin Lispro (1 Unit Dial) 100 UNIT/ML Subcutaneous Solution Pen-injector (Admelog SoloStar) Insulin Lispro (1 Unit Dial) 100 UNIT/ML Subcutaneous Solution Pen-injector (Admelog SoloStar) 04/27/2020 12:00:00 AM EDT act artemio Type 2 diabetes mellitus with hyperglycemia, with long-term current use of insulin I nject subq daily per insulin orders. Max daily dose 140 units with titration and priming. Dx: E11.65 [facility] Type 2 diabetes mellitus with hyperglyce starla, with long-term current use of insulin 100 unit/mL (3 mL) 04/25/2020 12:00:00 AM [...] 144 UNITS SOLD: 07/04/2020 [facility] Chastityagltessa GomesPen 100 UNIT/ML Subcutaneou s Solution Pen-injector (insulin glargine) [id number] 04/24/2020 12:00:00 AM EDT active Type 2 diabetes mellitus with hyperglycemia, with long-term current use of insulin Inject 60 units, QAM and 60 units QPM, Max Daily Dose: 144 units inclusive of priming and titiration. Dx code: E11.65 [facility] Type 2 diabetes mellitus with hyperglyce [...] 1 TABLET BY MOUTH AT BEDTIME SOLD: 09/27/2020 [facility] atorvastatin 40 MG Oral Tablet ATORVASTATIN CALCIUM 04/20/2020 1 2:00:00 AM EDT tablet 30 TAKE 1 TABLET BY MOUTH AT BEDTIME TAKE 1 TABLET BY MOUTH AT BEDTIME SOLD: 06/26/2020 [facility] atorvastatin 40 MG Oral Tablet ATORVASTATIN CALCIUM 04/20/2020 1 2:00:00 AM EDT tablet 30 TAKE 1 TABLET BY MOUTH AT BEDTIME TAKE 1 TABLET BY MOUTH AT BEDTIME SOLD: 08/24/2020 [facility] 0.4 mg 04/20/2020 12:00:00 AM [...] CONTACT 911 SOLD: 05/26/2020 [facility] 0.4 mg 04/20/2020 12:00:00 AM EDT tablet, [...] CONTACT 911 SOLD: 04/24/2020 [facility] atorvastatin 40 MG Oral Tablet ATORVASTATIN CALCIUM 04/20/2020 1 2:00:00 AM EDT tablet 30 TAKE 1 TABLET BY MOUTH AT BEDTIME TAKE 1 TABLET BY MOUTH AT BEDTIME SOLD: 05/26/2020 [facility] atorvastatin 40 MG Oral Tablet ATORVASTATIN CALCIUM 04/20/2020 1 2:00:00 AM EDT tablet 30 TAKE 1 TABLET BY MOUTH AT BEDTIME TAKE 1 TABLET BY MOUTH AT BEDTIME SOLD: 07/26/2020 [facility] 0.4 mg 04/20/2020 12:00:00 AM EDT tablet, sublingual [address]ACE ONE TABLET UNDER THE TONGUE EVERY 5 MINUTES FOR UP TO 3 DOSES NEEDED FOR CHEST PAIN. IF CHEST PAIN STILL PERSISTS CONTACT [address] ONE TABLET UNDER THE TONGUE EVERY 5 MINUTES FOR UP TO 3 DOSES NEEDED FOR CHEST PAIN. IF CHEST PAIN STILL PERSISTS CONTACT 911 SOLD: 07/19/2020 [facility] 3 ML Insulin, Aspart, Human 100 UNT/ML P en Injector [NovoLog] NovoLOG FlexPen 100 UNIT/ML Subcutaneous Solution Pen-injector (insulin aspart) NovoLOG FlexPen 100 UNIT/ML Subcutaneous Solution Pen-injector (insulin aspart) 04/20/2020 12:00:00 AM EDT active Type 2 diabetes mellitus with hyperglycemia, with long-term current use of insulin Inject subq malik y per insulin orders. MDD 140 units with titration and priming. Dx: E11.65. [facility] Type 2 diabetes mellitus with hyperglyce starla, with long-term current use of insulin FreeStyle Shabbir 14 Day Sensor [id number] 04/20/2020 12:00:00 AM EDT active Type 2 diabetes mellitus with hyperglyce starla, with long-term current use of insulin Use as directed. Change every 14 days. Dx: E11.65 [facility] Type 2 diabetes mellitus with hyperglyce [...] of priming and titiration. Dx code: E11.65 [facility] Type 2 diabetes mellitus with hyperglyce starla, with long-term current use of insulin 0.5 ML dulaglutide 3 MG/ML Auto-Injector [Trulicity] Trulicity 1.5 MG/0.5ML Subcutaneous Solution Pen-injector (dulaglutide) Trulicity 1.5 MG/0.5ML Subcutaneous Solution Pen-injector (dulaglutide) 04/20/2020 12:00:00 AM EDT 1.5 mg Subcutaneous aborted Type 2 diabetes mellitus with hyperglycemia, with long-term current use of insulin Inject 0.5 mLs i nto the skin once a week [facility] Type 2 diabetes mellitus with hyperglyce starla, with long-term current use of insulin Cholecalciferol 4000 UNT Oral Capsule Ch olecalciferol 100 MCG (4000 UT) Oral Capsule Cholecalciferol 100 MCG (4000 UT) Oral Capsule 020 12:00:00 AM EDT 1 {capsule} Oral active Take 1 capsu le by mouth daily [facility] Lancets 33G [phone] 04/20/2020 12:00:00 AM EDT aborted Type 2 diabetes mellitus with hyperglyce starla, with long-term current use of insulin Use to test blood sugar up to 4 times da adeola. Dx: e11.65 [facility] Type 2 diabetes mellitus with hyperglyce starla, with long-term current use of insulin atorvastatin 40 MG Oral Tablet ATORVASTATIN CALCIUM 04/20/2020 1 2:00:00 AM EDT tablet 30 TAKE 1 TABLET BY MOUTH AT BEDTIME TAKE 1 TABLET BY MOUTH AT BEDTIME SOLD: 04/24/2020 [facility] atorvastatin 40 MG Oral Tablet Atorvastatin Calcium 40 MG Oral Tablet (LIPITOR) Atorvastatin Calcium 40 MG Oral Tablet (LIPITOR) 04/20/2020 12:00:00 AM EDT aborted [facility] Losartan Potassium 100 MG Oral Tablet Lo sartan Potassium 100 MG Oral Tablet (COZAAR) Losartan Potassium 100 MG Oral Tablet (COZAAR) 020 12:00:00 AM EDT active [facility] Naproxen 500 MG Oral Tablet Naproxen 500 MG Oral Table t (NAPROSYN) Naproxen 500 MG Oral Tablet (NAPROSYN) 03/25/2020 12:00:00 AM EDT active TAKE ONE TABLET BY MOUTH EVERY 12 HOURS WITH FOOD OR MILK NEEDED [facility] BD Pen Needle Original U/F 29G X 12.7MM (Insulin Pen Needle) [id number] 03/21/2020 12:00:00 AM EDT act artemio Type 2 diabetes mellitus with hyperglycemia, with long-term current use of insulin U se as directed. INJECT DIRECTED UP TO 5 TIMES A DAY [facility] Type 2 diabetes mellitus with hyperglyce starla, with long-term current use of insulin Levothyroxine Sodium 0.125 MG Oral Table t Levothyroxine Sodium 125 MCG Oral Tablet (SYNTHROID) Levothyroxine Sodium 125 MCG Oral Tablet (SYNTHROID) 03/21/2020 12:00:00 AM EDT active Other specified hypothyroidism TAKE ONE TABLET BY MOUTH EVERY DAY [facility] Other specified hypothyroidism Cholecalciferol 1000 UNT Oral Tablet Vit olmedo D3 25 MCG (1000 UT) Oral Tablet (CHOLECALCIFEROL) Vitamin D3 25 MCG (1000 UT) Oral Tablet (CHOLECALCIFER OL) 03/21/2020 12:00:00 AM EDT aborted TAKE THREE TABLETS BY MOUTH EVERY DAY [facility] Cholecalciferol 1000 UNT Oral Capsule Vitamin D3 12/02/2019 12:00:00 AM EDT ORAL completed [facility] ([facility]) FreeStyle Shabbir 14 Day Sensor [id number] 11/23/2019 12:00:00 AM EDT aborted Type 2 diabetes mellitus with hyperglyce starla, with long-term current use of insulin Use as directed. Change every 14 days. Dx: E11.65 [facility] Type 2 diabetes mellitus with hyperglyce starla, with long-term current use of insulin Baclofen 10 MG Oral Tablet Baclofen 10 MG Oral Tablet (LIORESAL) Baclofen 10 MG Oral Tablet (LIORESAL) 11/18/2019 12:00:00 AM EDT aborted TAKE ONE TABLET BY MOUTH THREE TIMES A DAY NEEDED FOR MUSCLE SPASMS [facility] 0.5 ML dulaglutide 3 MG/ML Auto-Injector [Trulicity] Trulicity 1.5 MG/0.5ML Subcutaneous Solution Pen-injector (dulaglutide) Trulicity 1.5 MG/0.5ML Subcutaneous Solution Pen-injector (dulaglutide) 10/04/2019 12:00:00 AM EDT aborted Type 2 diabetes mellitus with hyperglycemia, with long-term current use of insulin INJECT 1.5MG WEEKLY [facility] Type 2 diabetes mellitus with hyperglyce starla, with long-term current use of insulin Losartan Potassium 50 MG Oral Tablet Los gavin Potassium 50 MG Oral Tablet (COZAAR) Losartan Potassium 50 MG Oral Tablet (COZAAR) 10/01/19 12:00:00 AM EDT aborted [facility] 3 ML [...] units with titration and priming. Dx: E11.65. [facility] Type 2 diabetes mellitus with hyperglyce starla, with long-term current use of insulin 0.5 ML dulaglutide 3 MG/ML Auto-Injector Dulaglutide 1.5 MG/0.5ML Subcutaneous Solution Pen-injector (TRULICITY) Dulaglutide 1.5 MG/0.5ML Subcutaneous So lution Pen-injector (TRULICITY) 07/28/2019 12:00:00 AM EST active Type 2 diabetes mellitus with hyperglycemia, with long-term current use of insulin Inject 1.5 mg once weekly. DX:E11.65 [facility] Type 2 diabetes mellitus with hyperglyce [...] of priming and titiration. Dx code: E11.65 [facility] Type 2 diabetes mellitus with hyperglyce starla, with long-term current use of insulin clopidogrel 75 MG Oral Tablet clopidogrel (PLAVIX) 75 MG tablet clopidogrel (PLAVIX) 75 MG tablet 08/25/2017 12:00:00 AM EST 75 mg Oral aborted Take 75 mg by mouth daily [facility] LANCETS 33G [facility] [phone] 06/17/2017 12:00:[address] aborted Type 2 diabetes idris itus with hyperglycemia, with long-term current use of insulin Use to test blood sugar up to 6 times da adeola. Dx: e11.65 [facility] Type 2 diabetes mellitus with hyperglyce starla, with long-term current use of insulin tramadol hydrochloride 50 MG Oral Tablet traMADol HCl 50 MG Oral Tablet (ULTRAM) traMADol HCl 50 MG Oral Tablet (ULTRAM) 50 mg Oral aborted Take 50 mg by mouth every 8 (eight) hours as needed [facility] Rosuvastatin calcium 20 MG Oral Tablet rosuvastatin (C RESTOR) 20 MG tablet rosuvastatin (CRESTOR) 20 MG tablet 20 mg Oral ab orted Take 20 mg by mouth 1 tab daily [facility] carvedilol 6.25 MG Oral Tablet carvedilol (COREG) 6.25 MG tablet carvedilol (COREG) 6.25 MG tablet 6.25 mg Oral aborted Take 6.25 mg by mouth Two times daily with meals [facility] FreeStyle Shabbir 2 Sensor [phone] 1 {each} Does not apply aborted 1 each by Does not apply route every 14 (fourteen) days Use as directed. Dx:E11.65 [facility] Insurance Providers Payer name Policy type / Coverage type Policy ID Covered constitution party ID Covered constitution party's relationship to patiño Policy Patiño Plan Information [facility] Anabel OSORIO Yoy,DAVI,[facility] Medigap Part B [id number] Self [id number] [facility] Tolu OSORIOtYuki,ZFTricia,[facility] Medigap Part B [id number] Self [id number] [facility] Anabel OSORIO Yoy,DAVI,[facility] Medigap Part B [id number] Self [id number] [facility] Anabel OSORIO Yoy,DAVI,[facility] Medigap Part B [id number] Self [id number] Anabel OSORIO,Yuki,DAVI,[facility] Medigap Part B [id number] Self Ghi FHP-(DO Not Use) Medigap Part B [id number] Self 0 [id number] Ghi FHP-(DO Not Use) Medigap Part B [id number] Self Ghi FHP-(DO Not Use) Medigap Part B [id number] Self 0 [id number] Ghi FHP-(DO Not Use) Medigap Part B [id number] Self 0 [id number] Ghi FHP-(DO Not Use) Medigap Part B [id number] Self 0 [id number] [place] [id number] Family Dependent BS [place] [employer] Part B [id number] Family Dependent S [id number] [place] [employer] Part B [id number] Family Dependent S [id number] BS [place] Med[employer] Part B [id number] Family Dependent S [id number] BS [place] [employer] Part B [id number] Family Dependent S [id number] EXCELLUS C [id number] Self [id number] BS [place] [id number] Family Dependent EXCELLUS H [id number] Spouse [id number] [employer] BCBS [id number] ORe YND [id number] BS [place] [id number] Family Dependent Y [id number] BS [place] [id number] Family Dependent Y [id number] BS [place] [id number] Family Dependent Y [id number] BS [place] [id number] Family Dependent Y [id number] [place] MEDICAID [id number] Liset 7 [id number] [place] EXCHANGE [id number] Liset 7 [id number] [place] EXCHANGE U [id number] Self [id number] [place] I [id number] Self [id number] ANSI-Not a Secondary Insurance [id number] [place] MEDICAID PI PI ANSI-Not a Secondary Insurance [id number] [place] 306/806 [id number] [place]2 [id number] [place] -[employer] Health Maintenance Organization (HMO) [id number] Self [id number] ANSI-Not a Secondary Insurance [id number] ANSI-Not a Secondary Insurance [id number] SELF PAY 2 UNAVAILABLE 1 UNAVAILA BLE SELF PAY ONLY [id number] SP [id number] [employer] BCBS Health Maintenance Organization (HMO) [id number] Family Dependent [id number] [place]BS [place] P[place] 302/307 [id number] [place] [id number] [employer] BCBS PI PI ANSI-Not a Secondary Insurance [id number] [place] -Exchange Health Maintenance Organization (HMO) [id number] Self [id number] [place] -[employer] Health Maintenance Organization (HMO) [id number] Self 7 [id number] EXC PLANS 1 [id number] ANSI-Not a Secondary Insurance [id number] ANSI-Not a Secondary Insurance [id number] MEDICAID [id number] SP [id number] MEDICAID M [id number] S [id number] MEDICAID [id number] SP [id number] [place] [id number] SP [id number] BCBS [place] PPO 302/307 [id number] WI2 [id number] [employer] BCBS B [id number] P [id number] BCBS [place] PPO 302/307 [id number] [place]2 [id number] [employer] BCBS Health Maintenance Organization (O) [id number] Family Dependent [place] [id number] SP [id number] EMEDNY [id number] SP [id number] [place] [place] O [id number] S [id number] BCBS [place] PPO 302/307 [id number] [place]2 [id number] [place] [id number] SP [id number] BCBS [place] O [id number] U VY [id number] [employer] BCBS P [id number] P KARINE [id number] ANSI-Not a Secondary Insurance [id number] [place] -Exchange Health Maintenance Organization ([facility]) [id number] Self [id number] ANSI-Not a Secondary Insurance [id number] [place] -Exchange Health Maintenance Organization (O) [id number] 800 [id number] Self [id number] ANSI-Not a Secondary Insurance [id number] ANSI-Not a Secondary Insurance [id number] ANSI-Not a Secondary Insurance [id number] Problems, Conditions, and Diagnoses Code Display Name Description Problem Type Effective Dates Data Source(s) H65.21 [id number] Right chronic serous otitis media Problem 09/20/2020 12:00:00 AM EDT eCW1 ([facility]) Surgeries/Procedures Procedure Description Date Indications Data Source(s) TDAP VACCINE 7/> YR IM 03/06/2021 12:00:00 AM EDT eCW1 ([facility]) PNEUMOCOCCAL POLYSAC VACCINE 23-V 2 />YR SUBQ/IM 03/06 12:00:00 AM EDT eCW1 ([facility]) OFFICE OUTPATIENT VISIT 25 MINUTES 01/23/2021 12:00:00 AM EDT [facility] ECHO TTHRC R-T 2D W/WOM-MODE COMPL SPEC&COLR DOP 01/23 12:00:00 AM EDT [facility] ([facility]) Bronchospasm Evaluation 01/15/2021 12:00:00 AM EDT [facility] Plethysmography Determination Lung Volumes & Per Airway Resi st 01/15/2021 12:00:00 AM EDT [facility] ([facility], ) DIFFUSING CAPACITY 01/15/2021 12:00:00 AM EDT [facility] Spirometry 12/07/2020 12:00:00 AM EDT [facility] OFFICE OUTPATIENT VISIT 25 MINUTES 12/07/2020 12:00:00 AM EDT MED[facility] ([facility]) OFFICE OUTPATIENT VISIT 25 MINUTES 11/29/2020 12:00:00 AM EDT [facility] ([facility]) ECG ROUTINE ECG W/LEAST 12 LDS W/I&R 11/16/2020 12:00: 00 AM EDT [facility] ([facility]) OFFICE OUTPATIENT VISIT 25 MINUTES 11/16/2020 12:00:00 AM EDT [facility] ([facility]) ECG ROUTINE ECG W/LEAST 12 LDS W/I&R 10/02/2020 12:00: 00 AM EDT [facility] ([facility]) OFFICE OUTPATIENT VISIT 15 MINUTES 10/02/2020 12:00:00 AM EDT [facility] ([facility]) ARTHROCENTESIS ASPIR&/INJECTION MAJOR JT/BURSA 021 12:00:00 AM EDT [facility] ([facility] ) RADEX SHOULDER COMPLETE MINIMUM 2 VIEWS 09/20/2020 12: 00:00 AM EDT [facility] ([facility] ) OFFICE OUTPATIENT VISIT 15 MINUTES 09/06/2020 12:00:00 AM EST [facility] ECHO TTHRC R-T 2D W/WOM-MODE COMPL SPEC&COLR DOP 06/26 12:00:00 AM EST [facility] ([facility]) ECG ROUTINE ECG W/LEAST 12 LDS W/I&R 05/12/2020 12:00: 00 AM EST [facility] ([facility]) POCT HEMOGLOBIN A1C, DOCKED <td>POCT HEMOGLOBIN A1C, DOCKED</td><td>Routine</td><td>04/20/2020 12:00 PM EDT</td><td></td><td> </td> 04/20/2020 12:00:00 PM [facility] POCT GLUCOSE, DOCKED <td>POCT GLUCOSE, DOCKED</td ><td>Routine</td><td>04/20/2020 11:58 AM EDT</td><td></td><td> </td> 04/20/2020 11:58:00 AM [facility] Results ID Date Data Source URINE CULTURE 02/14/2021 12:00:00 AM EDT eCW1 ([facility]) Name Value Range Interpretation Code Description Data Renetta rce(s) Supporting Document(s) URINE CULTURE eCW1 ([facility]) ID Date Data Source UA URINALYSIS 02/14/2021 12:00:00 AM EDT eCW1 ([facility]) Name Value Range Interpretation Code Description Data Renetta rce(s) Supporting Document(s) UA URINALYSIS eCW1 ([facility]) ID Date Data Source [id number] 12/07/2020 09:56:00 AM EDT [facility] ([facility], ) Name Value Range Interpretation Code Description Data Renetta rce(s) Supporting Document(s) PDFReport Laboratory test result [facility] FVC-Pred 4.80 L [facility] ([facility]) FVC-Pre 2.82 L [facility] ([facility]) FVC-%Pred-Pre 58 L [facility] ([facility], ) FVC-LLN 3.87 L [facility] ([facility]) Fev1-Pred 3.64 L [facility] ([facility]) Fev1-%Pred-Pre 67 L [facility] ([facility]) Fev1-Pre 2.44 L [facility] ([facility]) Fev6-Pre 2.81 L [facility] ([facility]) Fev6-Pred 4.59 L [facility] ([facility]) Fev1-LLN 2.85 L [facility] ([facility]) Fev6-LLN 3.68 L [facility] ([facility]) Fev6-%Pred-Pre 61 L [facility] ([facility], ) Jub9sfi-Ahe 87 % [facility] ([facility]) Nbm9gui-%Pred-Pre 114 % [facility] ([facility]) Crp0ppl-Kken 76 % [facility] ([facility]) Iee2xkk-Mmq 99 % [facility] ([facility]) Dsd9pxo-Dutx 96 % [facility] ([facility]) Otm7osd-QLX 66 % MEDENT ([facility]) FEFMax-Pre 5.43 L/E/sec MEDENT ([facility]) FEFMax-Pred 9.30 L/E/sec MEDENT ([facility]) Vld0zyl-%Pred-Pre 103 % MEDENT ([facility]) Jkx7120-Hwfm 3.02 L/E/sec MEDENT ([facility]) FEFMax-%Pred-Pre 58 L/E/sec MEDENT ([facility]) FEFMax-LLN 6.97 L/E/sec MEDENT ([facility]) Zom4034-PTI 1.42 L/E/sec MEDENT ([facility]) Zgf5862-%Pred-Pre 91 L/E/sec MEDENT ([facility]) Eix6470-Nko 2.76 L/E/sec MEDENT ([facility]) ExpTime-Pre 7.20 sec MEDENT ([facility]) Pdf7kgp2-Jryk 79 % MEDENT ([facility]) Fod5mdx0-Ufy 87 % [facility] ([facility]) [id number] 70 % [facility] ([facility]) Drd8zst8-%Pred-Pre 110 % [facility] ([facility]) ID Date Data Source [id number] 11/16/2020 03:33:00 PM EDT [facility] ([facility] [place]) Name Value Range Interpretation Code Description Data Renetta rce(s) Supporting Document(s) Natriuretic peptide.B prohormone N-Terminal [Mass/volu me] in Serum or Plasma 94 pg/mL [facility] ([facility]) ID Date Data Source [id number] 11/16/2020 03:33:00 PM EDT [facility] ([facility] [place]) Name Value Range Interpretation Code Description Data Renetta rce(s) Supporting Document(s) Glucose, Fasting 246 mg/dL 70-100 [facility] ([facility] [place]) Blood Urea Nitrogen 16 mg/dL 7-18 [facility] ([facility]) Creatinine For GFR 1.01 mg/dL 0.70-1.30 [facility] ([facility]) Glomerular Filtration Rate Laboratory test result [facility] ([facility]) <content>Units are mL/min/1.73 m2</content>
<content></content>
<content>Chronic Kidney Disease Staging per NKF:</content>
<content></content>
<content>Stage I & II GFR >=60 Normal to Mildly Decreased</content>
<content>Stage III GFR 30- 59 Moderately Decreased</content>
<content>Stage IV GFR 15-29 Severely Decreased</content>
<content>Stage V GFR <15 Very Little GFR Left</content>
<content>ESRD GFR <15 on TELLER SUPERVISOR</content>
<content></content> Potassium Serum 4.0 meq/L 3.5-5.1 [facility] ([facility]) Sodium Level 141 meq/L 136-145 [facility] ([facility]) Chloride Level 109 meq/L 98-107 [facility] ([facility]) Anion Gap 4 meq/L 8-16 [facility] ([facility]) Carbon Dioxide Level 28 meq/L 21-32 [facility] ([facility]) Calcium Level 9.2 mg/dL 8.5-10.1 [facility] ([facility]) ID Date Data Source [id number] 11/01/2020 11:36:31 AM EDT [facility] Name Value Range Interpretation Code Description Data Renetta rce(s) Supporting Document(s) Progress Note [facility] XKFCNk4xWwOREwHw72/IBDmwPBMjt9OmSKxgRQy9TNizOQMbS0IsZIU3qC6uDCT6FWbHYoZaFjIsTCT0 lbm [file] ICAgICAgICAgICAgICAgICAgICAgICAgICAgICAgICAgICAgICAgICAgICAgICAgICAgICAgICAgICAg SNCsYOZoRNDeLE5SKWMpXZGqGDJgYNEvAAFlNROaJTSnNFAdUBNeBIBhEVIwLLSeONHqJVYiVVNnMYUx ICAgICAgICAgICAgICAgICAgICAgICAgICAgICAgIC QyNCXvIJTkQPYgLIEhCNCnHEDgAE6ZTIEyJSClDSFePDYeOEOtUERqHMTkKJVtNEEeIQPjZZDpCCJwCI AgICAgICAgICAgICAgICAgICAgICAgICAgICAgICAgICAgICAgICAgICAgICAgICAgICAgICAgICAgIC LaEM2UCUEyMYQkUKEtFDMoELXiQZGbBJXjBBMgQQNl ICAgICAgICAgICAgICAgICAgICAgICAgICAgICAgICAgICAgICAgICAgICAgICAgICAgICAgICAgICAg LWUaZFXsEUSnNIUuHD4OYBAlHLPwTODfDSAmWJIsOLFpVFBwSMFwNYStEWUoKKHgNTDxKWLyKCYlSRGa ICAgICAgICAgICAgICAgICAgICAgICAgICAgICAgIC QqQOMiAEYqRBMzWLRvWLJhRSOaAPSfAN6MQIDwJFTtGLMlQWDkLZEiJCEwRCKzGAVpTNPfXHUtCLDjTV AgICAgICAgICAgICAgICAgICAgICAgICAgICAgICAgICAgICAgICAgICAgICAgICAgICAgICAgICAgIC QrASQnZX6FSNIgFSGsZFGzLFWrCRJxWQUgCJRzGJOm ICAgICAgICAgICAgICAgICAgICAgICAgICAgICAgICAgICAgICAgICAgICAgICAgICAgICAgICAgICAg YZGsBFVnGCRcFIJlDIFzQN1CUNUyIBEgYTBxLERxOBUjZUKiQDFcSVLeQEFyTRXbBZRsRZAwXBMfQQJo ICAgICAgICAgICAgICAgICAgICAgICAgICAgICAgIC VtGLHjLDXxCAEgIGJvOBVnTDViRFMfUHGxZS1EPOIkVVVwNUMkTUPeYXQzSRAuNVKaDCXtLBMdWYQxXP AgICAgICAgICAgICAgICAgICAgICAgICAgICAgICAgICAgICAgICAgICAgICAgICAgICAgICAgICAgIC NsANDpTYLgDM5CNPVoTXTnIQLxAQOaXFVdSTMtCZXl ICAgICAgICAgICAgICAgICAgICAgICAgICAgICAgICAgICAgICAgICAgICAgICAgICAgICAgICAgICAg SICfMMAvDYIhJVBmKFKgXJIcRC3SNZ63uHPjz2B8LZRgGS6beja/Sn6IZKgydtTpaCLkRX6HOlFqBT2k qc8ZTcSiZC4mmz1YNTuUByRnB4U7fRFvVSVdXHLHUr DvX79aQJyvZw59KCgnLBSbUtOhDKw9Us2TJuGvH0prPMKmLtU6QVQcJmF0JCRzEqM9FTTjJoXdOVWaHR DhNFArBYRAWWR8LZLdUaEdObDzMZZlWC9LOUHoN254prUyTm3VPl1HMeDlSD7gcg2ZAfGxLWOiFncJWk n9YTgtWX0KeGNfnAKgDpBhPVEWQcHhJ9age4DaYwTa OGWGQOxmOT1Ks2GxrDCwTUf+Vp2FYZ7jp3AaVTndQtEqCZ2cuv0BTNvETlHzF1AqjVpfQLMbw9saDEQh QM2fjKUjEGQ3IHWkmhjqsUhtEUSqYPHkdvljS8UnysdjCJTsJZXtTE5sSL6fOCSjJSXsMbMdEWTGFO5T BFFmHKPlyKEaRHCzXCQKVT0VBRmjTZN4JMHfczWxpT IzREqrCR8EXTDeivVfThVuDOPFBZl+Ct6PMK9wk8ZwEHsnJkUsUB5acs1NZMqSYiXpV1L7jVNqZ9J3GX wgPh8EDACoBRJaOmjuTYZEXLayJX9BNQ9vezN9DE7AaRFxJVTsELVtjXXhIUq7B16huGKaXMidSD8RQI A+Cristina+Uy7KWDCsJMTxNYRvSmDvXRQNPmMgF0IuW9HY b9FnT3JgNY03ePayqdPvFGueYB0DVV3jQRLiDSWLVD7UfFZtnK5fzpAdQWQpEYPWWwNnI85keDFfAPTg OQCgXTHdJg1QXCNkW8UfhlJneChjuzZsNDOcCVXCWR3IUZmjgcWqyKXsoLovDX31rXqtXO3UUy0JJrRa OI5zyu4HeTIdCw2TPZSeMK9BAKFnQQBsKERiJBX0DB RzMmMcYYpyXPTlGXAfLDJ3QJSnJRVqBQ9ZKgSsIJSnPICuIMilVEYlQKKdbl5GRJCaCMP5AOuyHpFtGJ AwXOBeCPvrRCQbBWYoOIL2TNTlRVLjJO6BSzUvZBArGXJ8AeBjATLpGRIhwy9AFWJnVGQvSCWyEVDrCF IrGUIhLDhvATMuNLF3BKOgUDZxISFmDK5BReHvMLBz BBsjVbFsVMMeHSArxg0BUOXzSEYaMeZ4FfIuIYYcHHLsRKcnGBPkONTgPHKmPTXrWJNvJD7OXdRoXGCz WTL1HpluDIUsBZTccw0OUBJjKJSaADy3HlChHVIzDEFgCDfvVFOgFOK3Ngv5HRWlXALxOV1ZUvNgMXOo LXf7UOWdIOIsRXOjkx3IURKlNMEaFVl5PRZvGUVhDN GgCBatTKVcUUNtSGBqIBWyDDHbLX8ALmJfRIHtCbT7PJXqTQMuMDLeku5WXQEiMVPrISW8IaZjSZEuGO EmIPcxRZCyDZN1AKD6WMGeJYBzAO1XEfQjAHMgGtUuETCsKZDnBGUpzm8WBXMdLZIrTfF9UtXjTCZoGN NjEVeyKNPxCUX9FQQ5SZNxKFQjOT4HZaBuXEWjBlk1 GFxiHGNfVFZysv9AIQSySHMhXidfLzCqWLOrKMQeDMyfULHoTTH3IeV1CORvVBOwSN9BSpWsFZDnNee4 NNChRNQlZSJehl7WHSOgAREhWJzxGLWlIXLcEKUqBHkoXHMxHLOsFOSdKVBhZGEaIE6MKkAmPPQqVYHz SVWuTQMlZMOnoa9HUZIoZVC7SPB0TjRrNQIgJYTlJY pnFZDxCGCrSAj1ZWGyEGCbZV3SSyYvUOYqHFJwQTCoGTIfTOTutz4LDEYgQGI0RuAuJsOdVRSvRFSbYF m0ejKrnTVaLFf9YR0WK8YbpjRuRaXPXy9Bv716EGPoCKEoKr0NH8kxWi8nONShOVHZFf2NCUf6MGTnDk XnZIdnTJHxPBBqMlZjExYbWBV7HQBxYFQiJOM+IDw4 ZNG4LDR3EZBnRoDcZbQtAKNbEbYkXZikJHO7WNZ7Zw7eJYNKRd8+HTogdPBaoLmsBWJABcAjIVG1NEgj LFXPDf9I ID Date Data Source [id number] 11/01/2020 11:36:26 AM EDT [facility] Name Value Range Interpretation Code Description Data Renetta rce(s) Supporting Document(s) Progress Note [facility] SYWAYj2xCkQGTvBg22/WLZtqERCfi3KfGKxpNVz9RNjdOPUhU0XlDTT7bW6dSJT1DWoPLxWsBbRaNBM5 lbm [file] sACFDB0OANEaHPkTpFpZtao4Q1VsZE3HNbtf// [file] BWHoQMi5OcBaAmWqDYM0MgRbLN3ABg9XYgF2ZZJ8vONePc5UBkTkVmMZIhVwQC2KLRm= ID Date Data Source [id number] 09/27/2020 04:17:00 PM EDT [facility] Name Value Range Interpretation Code Description Data Renetta rce(s) Supporting Document(s) Creatinine For GFR 0.88 mg/dL 0.70-1.30 [facility] ([facility]) Blood Urea Nitrogen 19 mg/dL 7-18 [facility] ([facility]) Glucose, Fasting 150 mg/dL 70-100 [facility] Glomerular Filtration Rate Laboratory test result [facility] ([facility]) <content>Units are mL/min/1.73 m2</content>
<content></content>
<content>Chronic Kidney Disease Staging per NKF:</content>
<content></content>
<content>Stage I & II GFR >=60 Normal to Mildly Decreased</content>
<content>Stage III GFR 30- 59 Moderately Decreased</content>
<content>Stage IV GFR 15-29 Severely Decreased</content>
<content>Stage V GFR <15 Very Little GFR Left</content>
<content>ESRD GFR <15 on TELLER SUPERVISOR</content>
<content></content> Sodium Level 141 meq/L 136-145 [facility] Chloride Level 107 meq/L 98-107 [facility]) Potassium Serum 4.1 meq/L 3.5-5.1 [facility]) Carbon Dioxide Level 27 meq/L 21-32 [facility] Anion Gap 7 meq/L 8-16 [facility] Calcium Level 9.2 mg/dL 8.5-10.1 [facility] ([facility]) Ast/Sgot 5 U/L 7-37 [facility] Alt/SGPT 22 U/L 12-78 [facility] Alkaline Phosphatase 101 U/L 45-117 [facility]) Bilirubin,Total 0.6 mg/dL 0.2-1.0 [facility]) Total Protein 7.2 GM/DL 6.4-8.2 [facility] Albumin 4.2 GM/DL 3.2-5.2 [facility] Albumin/Globulin Ratio 1.4 [facility] ([facility]) ID Date Data Source [id number] 09/06/2020 03:50:00 PM EST [facility] ([facility], ) Name Value Range Interpretation Code Description Data Renetta rce(s) Supporting Document(s) Ceruloplasmin [Mass/volume] in Serum or Plasma 26.6 mg/dL 1 6.0-31.0 Normal (applies to non-numeric results) [facility] ([facility] ) Performed at: [facility] [address] [id number] [employer]ape[employer] Helper: Js Marcelo MD, Phone: [phone] Performed at: - [facility] [id number] Wallpape[employer] Helper: Santa Blackburn MD, Phone: [phone] ID Date Data Source [id number] 09/06/2020 03:50:00 PM EST [facility]) Name Value Range Interpretation Code Description Data Renetta rce(s) Supporting Document(s) Iron (Fe) 85 ug/dL 65-175 Normal (applies to non-numeric resul ts) [facility] ([facility]) Percent Saturation 30.4 % 19.7-50.0 Normal (applies to non-numer ic results) [facility] ([facility]) Total Iron Binding Capacity 280 ug/dL 250-450 Norm al (applies to non-numeric results) [facility]) ID Date Data Source [id number] 09/06/2020 03:50:00 PM EST [facility] ([facility]) Name Value Range Interpretation Code Description Data Renetta rce(s) Supporting Document(s) Liver-Kidney Microsomal Lelo Laboratory test result 0.0-20.0 Normal (applies to non-numeric results) [facility] ([facility]) Negative 0.0 - 20.0 Equivocal 20.1 - 24.9 Positive >24.9 . LKM type 1 antibodies are detected in patients with autoimmune hepatitis type 2 and in up to 8% of patients with chronic HCV infection. ID Date Data Source [id number] 09/06/2020 03:50:00 PM EST [facility]) Name Value Range Interpretation Code Description Data Renetta rce(s) Supporting Document(s) Cytoplasmic Neutrop AB Anca-C Laboratory test result Normal (applies to non- numeric results) [facility] ([facility]) Perinuclear AB Anca-P Laboratory test result Nor mal (applies to non-numeric results) [facility]) The presence of positive fluorescence ex hibiting P-ANCA or C-ANCA patterns alone is not specific for the diagnosis of Ally's Granulomatosis (WG) or microscopic polyangiitis. Decisions about treatment should not be based solely on ANCA IFA results. The International ANCA Group Consensus recommends follow up testing of positive sera with both FL- 3 and MPO-ANCA enzyme immunoassays. As m any as 5% serum samples are positive only by EIA. Ref. AM J Clin Pathol 1999;111:507-513. Anca-Atypical Laboratory test result Normal (applies t o non-numeric results) [facility] The atypical pANCA pattern has been obse rved in a significant percentage of patients with ulcerative colitis, primary sclerosing cholangitis and autoimmune hepatitis. ID Date Data Source [id number] 09/06/2020 03:50:00 PM EST [facility] ([facility]) Name Value Range Interpretation Code Description Data Renetta rce(s) Supporting Document(s) Mitochondria Ab [Units/volume] in Serum Laboratory test result 0 .0-20.0 Normal (applies to non-numeric results) [facility] ([facility]) Negative 0.0 - 20.0 Equivocal 20.1 - 24.9 Positive >24.9 . Mitochondrial (M2) Antibodies are found in 90-96% of patients with primary biliary cirrhosis. ID Date Data Source [id number] 09/06/2020 03:50:00 PM EST [facility] ([facility]) Name Value Range Interpretation Code Description Data Renetta rce(s) Supporting Document(s) Antinuclear Antibodies Direct Laboratory test result Abnormal (applies to non- numeric results) [facility] REMEDIAL TEACHER Antibodies 1.1 AI 0.0-0.9 Above high normal [facility] ([facility]) Anti Double Strand-Dna AB 1 IU/ml 0-9 Normal (applies to no n-numeric results) [facility]) <content>Negative <5</content>
<content>Equivocal 5 - 9</content>
<content>Positive >9</content>
<content></content> Hernandez Antibodies Laboratory test result 0.0-0.9 Normal ( applies to non-numeric results) [facility] ([facility]) Sjogren's Anti SS-B Laboratory test result 0.0-0.9 Vannessa l (applies to non- numeric results) [facility] ([facility]) Sjogren's Anti SS-A Laboratory test result 0.0-0.9 Vannessa l (applies to non- numeric results) [facility] Chad Comment Laboratory test result Normal (applies to non- numeric results) [facility] ([facility] ) . Autoantibody Disease Association Condition Frequency -------- [...] (anti-Hernandez) SLE 15 - 30% ------- --------- REMEDIAL TEACHER Mixed Connective Tissue Disease 95% (U1 nRNP, SLE 30 - 50% anti-ribonucleoprotein) Polymyositis and/or Dermatomyositis 20% -------- --------- Scl-70 (antiDNA Scleroderma (diffuse) 20 - 35% topoisomerase) Crest 13% -------- --------- Christine-1 Polymyositis and/or Dermatomyositis 20 - 40% -------- --------- Centromere B Scleroderma - Crest variant 80% ID Date Data Source [id number] 09/06/2020 03:50:00 PM EST [facility] ([facility] ) Name Value Range Interpretation Code Description Data Renetta rce(s) Supporting Document(s) Tissue transglutaminase IgA Ab [Units/volume] in Serum Labor atory test result 0-3 Normal (applies to non-numeric results) [facility] Negative 0 - 3 Weak Positive 4 - 10 Positive >10 . Tissue Transglutaminase (tTG) has been identified as the endomysial antigen. Studies have demonstr- ated that endomysial IgA antibodies have over 99% specificity for gluten sensitive enteropathy. IgA [Mass/volume] in Serum or Plasma 99.5 mg/dL 70-400 Normal (applies to non- numeric results) [facility] ([facility] ) 09/13/20 (FriSep 13) 12:58 PM RACHEL RE INDL ok ID Date Data Source [id number] 09/06/2020 03:50:00 PM EST [facility] ([facility]) Name Value Range Interpretation Code Description Data Renetta rce(s) Supporting Document(s) White Blood Count 6.2 10 4.0-10.0 Normal (applies to non-numeri c results) [facility] ([facility]) Red Blood Count 4.31 10 4.30-6.10 Normal (applies to non-numeric results) [facility] ([facility]) Hemoglobin 12.9 g/dL 13.5-17.5 Below low [facility] Mean Corpuscular Hemoglobin 29.9 pg 27.0-33.0 Norm al (applies to non-numeric results) [facility] ([facility]) Hematocrit 38.3 % 42.0-52.0 Below low normal [facility] ( [facility]) Mean Corpuscular Volume 88.9 fl 80.0-96.0 Normal ( applies to non-numeric results) [facility] ([facility]) Red Cell Distribution Width 14.8 % 11.5-14.5 Above high normal [facility] ([facility]) Mean Corpuscular HGB Conc 33.7 g/dL 32.0-36.5 Normal (applies to non-numeric results) [facility] ([facility]) Platelet Count, Automated 234 10 150-450 Normal (applies to non-numeric results) [facility] ([facility]) Neutrophils % 52.8 % 36.0-66.0 Normal (applies to non-numeric re sults) [facility] ([facility]) Lymph % 34.1 % 24.0-44.0 Normal (applies to non-numeric resul ts) [facility] ([facility]) Pierce % 8.0 % 2.0-8.0 Normal (applies to non-numeric resul ts) [facility]) Eos % 3.3 % 0.0-3.0 Above high normal [facility] ([facility]) Baso % 1.0 % 0.0-1.0 Normal (applies to non-numeric resul ts) [facility] Nucleated Red Blood Cell % 0.0 % 0-0 Normal (applies to n on-numeric results) [facility] ([facility]) Immature Granulocyte % 0.8 % 0-3.0 Normal (applies to non-n umeric results) [facility] ([facility]) Lymph # 2.1 10 1.5-5.0 Normal (applies to non-numeric resul ts) [facility]) Neutrophils # 3.3 10 1.5-8.5 Normal (applies to non-numeric re sults) [facility] ([facility]) Pierce # 0.5 10 0.0-0.8 Normal (applies to non-numeric resul ts) [facility] ([facility]) Baso # 0.1 10 0.0-0.2 Normal (applies to non-numeric resul ts) [facility] ([facility]) Eos # 0.2 10 0.0-0.5 Normal (applies to non-numeric resul ts) [facility] ID Date Data Source [id number] 09/06/2020 03:50:00 PM [facility] Name Value Range Interpretation Code Description Data Renetta rce(s) Supporting Document(s) Inr 1.02 Normal (applies to non-numeric resul ts) [facility] ([facility]) THERAPUTIC HUMAN INR VALUES INDICATIONS NORMAL RANGES PROPHYLAXIS/TREATMENT OF: VENOUS THROMBOSIS 2.0-3.0 PULMONARY EMBOLISM 2.0-3.0 PREVENTION OF SYSTEMIC EMBOLISM FROM: TISSUE HEART VALVES 2.0-3.0 ACUTE MYOCARDIAL INFARCTION 2.0-3.0 VALVULAR HEART DISEASE 2.0-3.0 ATRIAL FIBRILLATION 2.0-3.0 MECHANICAL VALVES(HIGH RISK) 2.5-3.5 RECURRENT MYOCARDIAL INFARCTION 2.5-3.5 Prothrombin Time 13.6 s 12.5-14.3 Normal (applies to non-numeric results) [facility] ID Date Data Source [id number] 09/06/2020 03:50:00 PM EST [facility] ([facility]) Name Value Range Interpretation Code Description Data Renetta rce(s) Supporting Document(s) Alt/SGPT 67 U/L 12-78 Normal (applies to non-numeric resul ts) [facility] Ast/Sgot 16 U/L 7-37 Normal (applies to non-numeric resul ts) [facility]) Alkaline Phosphatase 114 U/L 45-117 Normal (applies to non-num sagar results) [facility]) Bilirubin,Total 0.7 mg/dL 0.2-1.0 Normal (applies to non-numeric results) [facility] ([facility]) Bilirubin,Direct 0.2 mg/dL 0.0-0.2 Normal (applies to non-numeric results) [facility] ([facility]) Total Protein 6.9 GM/DL 6.4-8.2 Normal (applies to non-numeric re sults) [facility] ([facility]) Albumin/Globulin Ratio 1.3 Normal (applies to non-n umeric results) [facility] ([facility]) Albumin 3.9 GM/DL 3.2-5.2 Normal (applies to non-numeric resul ts) [facility] ([facility]) ID Date Data Source [id number] 09/06/2020 03:50:00 PM EST [facility] ([facility]) Name Value Range Interpretation Code Description Data Renetta rce(s) Supporting Document(s) Hepatitis C Virus Lelo Index Laboratory test result Normal (applies to non- numeric results) [facility]) Hepatitis B Core Antibody Igm Laboratory test result Normal (applies to non- numeric results) [facility] ([facility]) Hepatitis B Surface Antigen Laboratory test result Normal (applies to non- numeric results) [facility] ([facility]) Hepatitis A Antibody Igm Laboratory test result Normal (applies to non-numeric results) [facility] ([facility]) ID Date Data Source [id number] 09/01/2020 03:21:06 PM EST [facility] Name Value Range Interpretation Code Description Data Renetta rce(s) Supporting Document(s) Progress Note [facility] CMVOAd1lBoLMJcMg04/NDNgrMZIid3JzNPopCDp5UQfxBUOmJ3PnMWM9wA4jQWZ5NTiEOgVnOgUtKtH8 lbm [file] AgICAgICAgICAgICAgICAgICAgICAgICAgICAgICAgICAgICAgICAgICAgICAgICAgICAgICAgICAgIC AgICAgICAgICAgICANCiAgICAgICAgICAgICAgICAgICAgICAgICAgICAgICAgICAgICAgICAgICAgIC AgICAgICAgICAgICAgICAgICAgICAgICAgICAgICAg ICAgICAgICAgICAgICAgICAgICAgICANCiAgICAgICAgICAgICAgICAgICAgICAgICAgICAgICAgICAg ICAgICAgICAgICAgICAgICAgICAgICAgICAgICAgICAgICAgICAgICAgICAgICAgICAgICAgICAgICAg ICAgICANCiAgICAgICAgICAgICAgICAgICAgICAgIC AgICAgICAgICAgICAgICAgICAgICAgICAgICAgICAgICAgICAgICAgICAgICAgICAgICAgICAgICAgIC AgICAgICAgICAgICAgICANCiAgICAgICAgICAgICAgICAgICAgICAgICAgICAgICAgICAgICAgICAgIC AgICAgICAgICAgICAgICAgICAgICAgICAgICAgICAg ICAgICAgICAgICAgICAgICAgICAgICAgICANCiAgICAgICAgICAgICAgICAgICAgICAgICAgICAgICAg ICAgICAgICAgICAgICAgICAgICAgICAgICAgICAgICAgICAgICAgICAgICAgICAgICAgICAgICAgICAg ICAgICAgICANCiAgICAgICAgICAgICAgICAgICAgIC AgICAgICAgICAgICAgICAgICAgICAgICAgICAgICAgICAgICAgICAgICAgICAgICAgICAgICAgICAgIC AgICAgICAgICAgICAgICAgICANCiAgICAgICAgICAgICAgICAgICAgICAgICAgICAgICAgICAgICAgIC AgICAgICAgICAgICAgICAgICAgICAgICAgICAgICAg ICAgICAgICAgICAgICAgICAgICAgICAgICAgICANCiAgICAgICAgICAgICAgICAgICAgICAgICAgICAg ICAgICAgICAgICAgICAgICAgICAgICAgICAgICAgICAgICAgICAgICAgICAgICAgICAgICAgICAgICAg ICAgICAgICAgICANCiAgICAgICAgICAgICAgICAgIC AgICAgICAgICAgICAgICAgICAgICAgICAgICAgICAgICAgICAgICAgICAgICAgICAgICAgICAgICAgIC AgICAgICAgICAgICAgICAgICAgICANCjw/iTTpW3melMDnixW4W2dsYy4YYa0VBE3dh0WwGPEcTBahlz UrGtkSQwDxGWAtNijKAys9KWvcYK4RiOFvC3XyX9Xj CDgfHN6TSOQvXDVpaIGcLCGnQPPiMgV9NXLbTPwxDU2BpHDjFYvyPRNvAUSuNwLoUDItFMPeVKRnTITp NZBCAVLlNYNuWnZaVCPwMVCkLYhjQNAKDB6APuFwN7MneF62KSpZGt8+BVchwhDjJmlFYpEzJUJdo9Pe MMz2WR2NWYWtWvltx7OlOpZoEADLHNxdEL1GGBA0GV YnLZBkTo1JUSIgQ061okQqSG5OSx7MRbRfMI9kkh8LEjJtIJFgHaeZLhe3EEmnDJ5XiAUcMCeFpe4pqx QyvtNJj4SqkfGknRNAUQ3bVIpoLEZPELiopzWbqhr7n19mIOTYSWL8FPCpVpXyDmEuMSDdYlw3FAQZJZ eXQjNeS0Yso3XwCsN3WKFuTeWqPIitWPEdAnU2HD24 nYedBU6DYOFfYOWwSW92BXIkXTEiFy2HRo5AOeVhPM0zyc7UVvIeOMMeLhlCHeg0QWmjEE8LqRFpQ6Ju iEFat9gCYnHzO9WURSO8DNCdSh1LRYLvWwJtXBRwFHbyDX1lCAMcPAKKgQfsotI1UZ1MIK4gkqDyQL6K GqHjRf8tEp5CPrZmU9ZkZ6VaHZGmZCOTLUnxSS6ORC vqZJ8xKP7Az3XJiSFndE5iax6YUUUuVLLiCrykgo4INrtbJ3P1pFgzYJAjEwFuLARRINhuDL8NWNFjUK C8DCMzQIAtSOKHDgUaL20kMD6ZU0Cvm09tWpR4WJCuXvRuTPtzYR84kBzzzpRxlWMirYtkWI7UMx7+DQ plbmRvYmoNCnhyZWYNCjAgMzQNCjAwMDAwMDAwMDAg XqA8DsBiPy0CVTZjWLUyEULoLqWzNHTtQGNyNTcbMXTcUPLrQFQ5JCLoZWWyNJ4ANyQoCIBqDGY1GFge BQSnJQOxuw0NVOIeLAXcHFF3XxRzUIPgWFCdJSoaPHRsOUN0TTOhWOWsJSAcYD1JKlQoGIYmTZHsCfHf BLKzEKWyoq4VLQUmQIOpXWhvIbEvUTBsORQtSLptAS WiMPH8HPBvWLKhCPTdJC8SLpZuZAEiGOM5NiLiHREvQMLmbw9YTVLjDVDsQin2CYJcJCMxNETcEKvsKG AeSTJ4XIZaBFXwZHVeUO5BSeKnSREmSDH3DXEfUXXqAWUycb5LFZCbPRBzVwimVkBoUNUzYNLaFTizOQ DzIUO5JVGzDBFdWQXwLQ5TIiQdXICzUpU2FWTeSABw MVSite5THPKjIMEnFXxkHQUfKXOwXRCvDNqzYJVfJRT5VwsqGVYtBUApTJ9MYyUdDMIqEkD7HChoDIZd NOJlue5BPKTgIQTwHSb6FMUcIWKdXXPmLMioBZSjBLU9QAI9UZWyQBJzKX2BIzOgSCYrEjCcJwwvHTTl GJHlhk9RQUUfYHUmNmZ6KrIvXZJgGYIoSIxxXVSzRV J5LZm8MMKeFFJwDG6SYtXoVYBzXdf9HNhzABOyLBDokp8FEKRkGVGgQEWfSaNrORXhTRPlFAanBHNeHQ A8PEQcZNRcLSRcJR9SRoXeMYGhShu1UFJcTFPkASXafo2TQWPoQAWsNWaqSGVmNCPeFUNjTFtcVVJyPA CaAKX8GODsPAQeVX3BCvQjHHAiVVF8LBuhUDImCUSt hp3HVZLsXFW3VLpkBrYsZNDlMLPzSAxtXMCkLTGaTXt5TGElDIZqEL1KDcQnNZEyABZkDAOpGLMnDTRr bl5FmFPwuEragi0DDMvNFc3GmLsoZJW1GIrcPp5lfYQzKnHsFJBSTl6GpnUhYHIlIKNDZQvjXRFmMVTv HLR0CrAdNGNnEWU9GPD6VmH8SLDoXSp1NGTiRDPbTv J9ZjX6KZTmRBV9CfDfGgutQUjlYDJoHCW8QkWnCBY3YNX+OU6gYJs+Dj1Vp6QbujM7svVxQYy9VqR9Sp 4ROBSCM7YPCy== ID Date Data Source [id number] 09/01/2020 03:21:01 PM [facility] Name Value Range Interpretation Code Description Data Renetta rce(s) Supporting Document(s) Progress Note [facility] RVIQMv9tJyOXGpPv55/VIMrxKZLgy3HgFPfmCDv8FJsyGHVjH0MfMLZ6kI9zPIY8PDdMMrXmVkBdJtH1 lbm [file] AgICAgICAgICAgICAgICAgICAgICAgICAgICAgICAgICAgICAgICAgICAgICAgICAgICAgICAgICAgIA 0KICAgICAgICAgICAgICAgICAgICAgICAgICAgICAg ICAgICAgICAgICAgICAgICAgICAgICAgICAgICAgICAgICAgICAgICAgICAgICAgICAgICAgICAgICAg JUWaECOpICNhCG7MJGQgZLIcPNFcVMOiUROwNZZyKPWySVHsPDHnBBSsRKCfTEAjASPfPYEjYNWoZJHf ICAgICAgICAgICAgICAgICAgICAgICAgICAgICAgIC CgKKUqACZrYVFyIUBdVGWsIIAzGA9OPLRwFTImPYOlFMGwLMUoNNOvYINqZJEkTELyTUKhJNCmWPKuVL AgICAgICAgICAgICAgICAgICAgICAgICAgICAgICAgICAgICAgICAgICAgICAgICAgICAgICAgICAgIC SkAK0BBJRjWZKfXMEoTELqOHSxPWTmMBOwJTEbYHSd ICAgICAgICAgICAgICAgICAgICAgICAgICAgICAgICAgICAgICAgICAgICAgICAgICAgICAgICAgICAg RKEiOHYuEBWwUBFgAD1JWWXtDXLyCKZfXSVbBPDpZEXvVLNdRMDhHIZjLNWrQHMqJJClYVMoEMSwAPCr ICAgICAgICAgICAgICAgICAgICAgICAgICAgICAgIC HtVNPcWOZnJRGrCQMeCLLjZFNyPAYiBP5PKAUxKFVqXLRwBOToYRLuJPEeCRXsCFLoOFYiYBYpAPTcTA AgICAgICAgICAgICAgICAgICAgICAgICAgICAgICAgICAgICAgICAgICAgICAgICAgICAgICAgICAgIC UnWLMuII4KXQFwMPNhORNwSXHkNJTtECYaPYRhOSNz ICAgICAgICAgICAgICAgICAgICAgICAgICAgICAgICAgICAgICAgICAgICAgICAgICAgICAgICAgICAg FUNzIUXuNNDuUVKrUZXjZC2SVSHdNIJlFZAaIDRjHEYwNNTeUZYiDNJyDLDkMJAqIJNsUBQdTPDeKJLf ICAgICAgICAgICAgICAgICAgICAgICAgICAgICAgIC JsBUAzCVDuECInOBZuYWMvUSReWOTgEKDsLT4VVSMrGNFcSBOpIXVnTWGeJKPpWOIlDNTgGKNrYMGmCR AgICAgICAgICAgICAgICAgICAgICAgICAgICAgICAgICAgICAgICAgICAgICAgICAgICAgICAgICAgIC DwIGYuBJOiFO1TYQ09zSFex6D2YETkDK2komd/Pg0K EGwenzMpzXTqUY2SQlDyGI2llr1RIgByJG7mzg9VQTtAIdIhC2V9nYTvJTUfEANNXdAgC22mZSxgGa81 LMzyQKEiWiErGHq3Kh6ADzTkP0tnEAZuMgD7BIUbNdMlALzlNV6Vg6LtpWQpNBz+Pl5AEN0wg3PsCXaq KkOcMD8iif7ETOoHOfFtZ7LkrcC9MVEvUTKrBo9JKJ TzAWQknHIgKhLjUYILChSbK8WtvK40JRDCRv0+VWcxgoVmPbsUDyNrVAOkd4HtDEk5GP5FLGWmAJo6eO MsKUGlV6Ddx2ZcSl39FCMmWvpoZHolIVZQEPl4xmJ7YAXPIU9yTTUrXh6jCy4eRSScZDQqJzMnFHHOUL 8GNMRuJLNcaMEmJNZhRWLGGZ6RUSszXAX8IPLdubYe uOXjPNmyXM5SMKGkfgVqPeCnXDTOCKt+Gn7OWL8bn4XpSIhnZHApYQ7jsm3UTXaADxPqO6N4oQJcO1B1 GFsdDm9UIASjEVIsTyBaXORLDWxuHV1ORJ0gyaW3LJ9ZeKXxAIHmLGRjrEAyTRy3Z44iuYBsQWipUH6U ICA+Cristina+Tu5ICEImSAHqJIBbVqAkOCRGXeMiB9MiW2 VIk5CbD8KzQF94bTitxkRePJkhYA1SDE5qAPUmCUZNOP6WxRZhsD9swpDmIyBsZTXZBvRaU97azUDdFW VdNIGwZQLkGg6COXLqB0StbtOxcNpktpWhXQUnOGRHUC9JREsifxSiiPQotQhuMY77sZdnHA8WIb4KSs UvLC2vyk9XwKWiVq4BLYVnRJ2HIYWvLYLxJPOvQBT2 BPWnZxIdIVrsOYPnQZKqJYS9UCGuNEIaVT9USgTvWYZaPQg2VDbnDWOlHRXpgv4IXPJoCZNnORVaNkEw SPCpPUKwHMufHCCuCMVfGBX5UPEhKZUeDX2IQaYxOZMcZTGxXUdaNFNtQWVoil6HBXOhDYHsSsKyTuKg VGFrWEVeGFlfAXDlWTGfLpvaTXNhBDZnIJ1VObUiWI XdCWN7JjmdPHUoYWZzer6DCFWlUSHoPiT7PwWbHNHqUMTvTKyjDFGeHCW4TuF2EMRfDAWlZB2XAgOaOO FxSBG8KLskSQWqKUDjrk6YGYKqAOMsKYJwHUDxPFKtIWFbSAwjHVNqKOT5KrN1GPOzPGVaHC8EWzAgQT HqDZV3YmSaPDLfONPdmr6LSPVrFLQcMpd3LMAzDPYg HMNtEFgjWFVeVYM2XXL5GZErRRFiJE1VTkBqIQHfUFicCkOkYPFzQFCosa3YNDRtTKCtYMIkWIRpGSNt EXEiPYmcRNHiQXN6Hpw7DFKnYYTgSO0ZAtIeKQLlRIo6DpGiSVEzQTAudr2KVNGcKZXlIMm4ChOpXYIb GJFaIPacTVPzBCCcAZLqSRHtHZHfDZ0QQkEmFAUuDo U3OGWfVKCuKVJwcf5RYOIfIEQySMWaDVIfKRWqCTHkCCm7tmLczCSsBWq1WQ1QM8TttqPkQnKXCq5Me2 95RMX7XCTnCy9CT0vcDo3rJKAoPNZOIe8HYSp5HnSrTHZrZLZsVkB2KBb0YLJxE5QyPFDiEUHlNsGaKE E+MXa5FYA2OIUnWVMmWKtmHaKzWMAoHHWuDURzQ5T0 DXYfPF0jAVRJGi5+JEpozUCbdVvtRQHEBbOsDTpyJLflTQTHWj8V ID Date Data Source [id number] 07/13/2020 01:35:00 PM EST [facility] Name Value Range Interpretation Code Description Data Renetta rce(s) Supporting Document(s) Respiratory pathogens identified [Type] in Nasopharynx by Probe and target amplification method SARS-CoV-2 (COVID 19) [facility] This lab was ordered by [facility] a nd reported by [facility]. ID Date Data Source [id number] 07/04/2020 12:00:00 AM EST [facility] Name Value Range Interpretation Code Description Data Renetta rce(s) Supporting Document(s) Carestart Rapid COVID Antigen Test [facility] This lab was reported by Alexander hernandez. ID Date Data Source [id number] 06/04/2020 03:54:00 PM EST [facility] Name Value Range Interpretation Code Description Data Renetta rce(s) Supporting Document(s) SARS-CoV-2 (COVID 19) [facility] This lab was ordered by [facility] a nd reported by [facility]. ID Date Data Source CBC with Differential 05/24/2020 12:00:00 AM EST eCW1 ([facility]) Name Value Range Interpretation Code Description Data Renetta rce(s) Supporting Document(s) 5.3 4.0-10.0 WHITE BLOOD COUNT eCW1 ([facility]) 4.70 4.30-6.10 RED BLOOD COUNT eCW1 ([facility]) 14.2 13.5-17.5 HEMOGLOBIN eCW1 ([facility]) 33.8 32.0-36.5 MEAN CORPUSCULAR HGB CONC eCW1 ([facility]) 42.0 42.0-52.0 HEMATOCRIT eCW1 ([facility]) 30.2 27.0-33.0 MEAN CORPUSCULAR HEMOGLOB IN eCW1 ([facility]) 89.4 80.0-96.0 MEAN CORPUSCULAR VOLUME e CW1 ([facility]) 8.8 0.0-5.0 MONO % eCW1 ([facility]) 12.5 11.5-14.5 RED CELL DISTRIBUTION WID TH eCW1 ([facility]) 51.8 36.0-66.0 NEUTROPHILS % eCW1 ([facility]) 34.5 24.0-44.0 LYMPH % eCW1 ([facility]) 184 150-450 PLATELET COUNT, AUTOMATED eCW1 ([facility]) 2.8 1.5-8.5 NEUTROPHILS # eCW1 ([facility]) 0.9 0.0-1.0 BASO % eCW1 ([facility]) 0.5 0.0-0.8 MONO # eCW1 ([facility]) 3.6 0.0-3.0 EOS % eCW1 ([facility]) 1.8 1.5-5.0 LYMPH # eCW1 ([facility]) 0.1 0.0-0.2 BASO # eCW1 ([facility]) 0.2 0.0-0.5 EOS # eCW1 ([facility]) ID Date Data Source [id number] 05/24/2020 12:00:00 AM EST eCW1 ([facility]) Name Value Range Interpretation Code Description Data Renetta rce(s) Supporting Document(s) Hemoglobin A1c/Hemoglobin.total in Blood 6.7 HEMOGLOBIN A1c eCW1 ([facility]) ID Date Data Source LIPID PANEL (CARDIAC RISK) 05/24/2020 12:00:00 AM EST eCW1 ( [facility]) Name Value Range Interpretation Code Description Data Renetta rce(s) Supporting Document(s) Triglyceride [Mass/volume] in Serum or Plasma by calculation 84 <150 TRIGLYCERIDES LEVEL eCW1 ([facility]) Cholesterol in HDL [Moles/volume] in Serum or Plasma 35 >40 HDL CHOLESTEROL eCW1 ([facility]) Cholesterol [Moles/volume] in Serum or Plasma 119 <200 CHOLESTEROL LEVEL eCW1 ([facility]) 84 NON-HDL-C eCW1 ([facility]) Cholesterol in LDL [Mass/volume] in Serum or Plasma by calculation 67 <100 LDL CHOLESTEROL eC1 ([facility]) 3.400 <5 CHOLESTEROL RISK RATIO eCW ([facility]) ID Date Data Source FREE T4 & TSH PANEL 05/24/2020 12:00:00 AM EST eCW1 ([facility]) Name Value Range Interpretation Code Description Data Renetta rce(s) Supporting Document(s) 2.800 0.358-3.740 eCW1 (Count includes the [facility]) 1.02 0.76-1.46 eCW1 ([facility]) ID Date Data Source Comprehensive Metabolic Profile (CMP) 05/24/2020 12:00:00 AM EST eCW1 ([facility]) Name Value Range Interpretation Code Description Data Renetta rce(s) Supporting Document(s) 109 70-100 GLUCOSE, FASTING eCW1 ([facility]) 14 7-18 BLOOD UREA NITROGEN eCW1 ([facility]) > 60.0 >56 GLOMERULAR FILTRATION RATE eCW 1 ([facility]) 110 98-107 CHLORIDE LEVEL eCW1 ([facility]) 1.00 0.70-1.30 CREATININE FOR GFR eCW1 ([facility]) 4.1 3.5-5.1 POTASSIUM SERUM eCW1 ([facility]) 143 136-145 SODIUM LEVEL eCW1 ([facility]) 8.6 8.5-10.1 CALCIUM LEVEL eCW1 ([facility]) 10 7-37 AST/SGOT eCW1 ([facility]) 28 21-32 CARBON DIOXIDE LEVEL eCW1 ([facility]) 27 12-78 ALT/SGPT eCW1 ([facility]) 3.8 3.2-5.2 ALBUMIN eCW1 ([facility]) 1.4 ALBUMIN/GLOBULIN RATIO eCW1 ([facility]) 0.7 0.2-1.0 BILIRUBIN,TOTAL eCW1 ([facility]) 6.6 6.4-8.2 TOTAL PROTEIN eCW1 ([facility]) 93 45-117 ALKALINE PHOSPHATASE eCW1 ([facility]) ID Date Data Source [id number] 04/20/2020 04:48:22 PM EDT [facility] Name Value Range Interpretation Code Description Data Renetta rce(s) Supporting Document(s) Progress Note [facility] UITAKe1aGaHPNbIw97/WDRiaZRXhz3AnLAkxVBb2DLdnZNFjQ0CpYXJ7yV8bNIT2QUuRJrDqOmOmRCU5 lbm [file] ICAgICAgICAgICAgICAgICAgICAgICAgICAgICAgIC AgICAgICAgICAgICAgICAgICAgICAgICAgICAgICAgDQogICAgICAgICAgICAgICAgICAgICAgICAgIC AgICAgICAgICAgICAgICAgICAgICAgICAgICAgICAgICAgICAgICAgICAgICAgICAgICAgICAgICAgIC AgICAgICAgICAgICAgDQogICAgICAgICAgICAgICAg ICAgICAgICAgICAgICAgICAgICAgICAgICAgICAgICAgICAgICAgICAgICAgICAgICAgICAgICAgICAg ICAgICAgICAgICAgICAgICAgICAgICAgDQogICAgICAgICAgICAgICAgICAgICAgICAgICAgICAgICAg ICAgICAgICAgICAgICAgICAgICAgICAgICAgICAgIC AgICAgICAgICAgICAgICAgICAgICAgICAgICAgICAgICAgDQogICAgICAgICAgICAgICAgICAgICAgIC AgICAgICAgICAgICAgICAgICAgICAgICAgICAgICAgICAgICAgICAgICAgICAgICAgICAgICAgICAgIC AgICAgICAgICAgICAgICAgDQogICAgICAgICAgICAg ICAgICAgICAgICAgICAgICAgICAgICAgICAgICAgICAgICAgICAgICAgICAgICAgICAgICAgICAgICAg ICAgICAgICAgICAgICAgICAgICAgICAgICAgDQogICAgICAgICAgICAgICAgICAgICAgICAgICAgICAg ICAgICAgICAgICAgICAgICAgICAgICAgICAgICAgIC AgICAgICAgICAgICAgICAgICAgICAgICAgICAgICAgICAgICAgDQogICAgICAgICAgICAgICAgICAgIC AgICAgICAgICAgICAgICAgICAgICAgICAgICAgICAgICAgICAgICAgICAgICAgICAgICAgICAgICAgIC AgICAgICAgICAgICAgICAgICAgDQogICAgICAgICAg ICAgICAgICAgICAgICAgICAgICAgICAgICAgICAgICAgICAgICAgICAgICAgICAgICAgICAgICAgICAg ICAgICAgICAgICAgICAgICAgICAgICAgICAgICAgDQogICAgICAgICAgICAgICAgICAgICAgICAgICAg ICAgICAgICAgICAgICAgICAgICAgICAgICAgICAgIC BjZQPuYHRxZPFzNFPfZRBvYLBmDLGtKTEyEIRhJAScXMSlYBGxEAWpNQq9Q9beYCWcNIDtYJ8zHZw1If 8+AEtNGjHjIQG6jtTrbB4MDR5fp1StJKyaBATzg2ScGAw8SS7IBFObETqpLW7PLGiiuy8NDJFvEZKilX SPc8scJqLbKNL5RVVkBwskWY5REUJyM9tzqsQmCBFn VVEIEMwiBIMHTZviFQKOXRBnZEXdDdAuOyCfBVSaOIFwKIULXRJ1PLMiVwUqEPPrVMPtXeDtFYGFOD5W OnLyH6CojW08QIrTAo5+ZWctegHkQdrTJyJ8WQHwg1CxCCh3OO4ZNNHtGknue4AxBjvmIFEJXMpaGV6P HNH4IWF7KACuRz7WQNRxS082gjYhOS7OKy4IIgUwMU 6cxb3HPltlLMEzZlpPZql7FAgtVJ9XhNTzZAtTtd4hflBvooULh2QybsIzdWDFJM4mZAhgAUHLJZS5fi pohLnbLAChYECoKLFoMYYfUpUdHZJwMZcnENHLWCdDGdCsX8Ipf6EzEyC6NIUzBrSjQSbeMUBdPnF2WK 84xWhjWN7UMVSjGGZwXV73MTE3CTGiYw9ADo2LZfSo UY2hgg2XGFWhJAStKqgREfg3XOiyCI0MeVHzC0MmqCBtl5wIYuDzU7IIYJF4TJZtPc7GSIRdJxKnCCBy OKmoCB4rYAIjGFMFyYpnqbA7TN9UAK7osqCaDE0PCrUcBw1lNg2NHaGbE6AlW8EeWETnQQPWSOeuLQ4K TLejKQ1qTN2Nj6SEqZLmnW6zbc6OPVJaZIZvPnpjtp 5XGdquQ9C8gLjrVFYbOgluMQLIZGdtDE3BZKCiNJE5BJEvJdXdDHAINpPvQ78tEZ1CH2Tbb59nIgE1OZ NvBpTwVJseXQ50cVlsorYknFFsfMcnAX0XBo1+DQplbmRvYmoNCnhyZWYNCjAgNDENCjAwMDAwMDAwMD WaKjP6TdLnGp7FATJmAPJmXMXzAtVxZZAiFOOyVOpc FHYxXGM2OUteDXUuTTMuVH7PAiQxHAAxDJs4KDhoVPFhQAAhuj6ELKRkSORlBGT9ErXxNYJoLSNqJGbt SYVoWIJ1FXf6TPXtTHKiEW3OSkSxLRVjQGF0WSqkQIIsQDQszb2HJILoLQRsMGA0FgQdQTCfXSJiZUua DDWwFPJ1RCgrIVCrQZFdIN2KPjDkWWFbSSUlJGUaPS DtSYMfzi9SQQZoUOHfWRR5FMUsZIVuDBHdYXfcPDFwFJY0ZSR1BPYmNTScQQ8VChEfHNNqNJQ7ZfOwDJ YrUPWrif7DNQSoHGVlXUFqAbYgLUUsFRQoZRrzDNHtKRL8ToGsRHQuBHYbVR8UEuTuPECdKvZ8OifzTO RkFZEqho2PYRViIVZfUDK9ZGDpQPMwHHHiEUpeMHPk WCFnSMGsVGJoUMXkLE7BHnFrBBYzUmFvBPReJVUyQWMdrg4OBJVnPMYmVavmONChBDUcJIBvKHscYZHj UPD7VJY8HVQxCSHcET9HJlPoCYByReq1EEGoYKMlVEHcit5AQREeZQFsFER2FMOwYQQmFXXeYVrdMEZk WFIfDmDvCJZwPTNrXM4BVdWbQHNnQjO9ATazDCTeNM Woao1HYEZwLXYgTBLlGDNrMQMsVBBsTFebUYShXFTzIYkjNCMvSKYwJT6DQfJbDNJvPbPlXOGeOLJxGK Kzfl9LVDSgREUnFnB2KAWwNPChUPEsAOxaLVJdUFNeKMCvPELgGKQwRU3BThMmBGYqUNErEoCxSVBwOO Kubu9BCJEeQXC8RNI7VCIdBEXsLBSbBBpnHMMwJEF4 YVg1MXBdMFXaFB9JEyQmZCQtKLM2OUCtYUSzZPRcms9TFPHfTHD0VMV2GBXvATVdTQAiYAxwKLPaURX9 SSayHQXpVABwLO7IKxVoRYVqIMCcGMZnLZNwZLLriv4VSOLcMAU9AxC2IuMsEIUeOSGdGDvaFKAkIRL4 PRT5YWKtSUQbPJ0VLlYwWKJjDNlkRwHyJQYrDSEuyp 4QXAItPIN8FHJ4EmQqDVMvLHVeDZw9akBtrBEaBZx7CB6TO3XrzbGeJTIAKn7Tg153WGAlGEGnQi1NP2 jsIk1rUIEdMDEWIc5GUEm0QGMuJSxlLYEfJUQ8AzP2UkP6VOJfVTd0WNC9TwVuABJ+ZEbyXQY7NZQ7FD TcIsXqPvxzDJzaPmB1VCpmYHe6CaW3Zn1oHDCINh5+AZebpWPrkJewQYCSAlW7FJA7HKdvMSUWVb2S ID Date Data Source [id number] 04/20/2020 12:13:55 PM EDT [facility] Name Value Range Interpretation Code Description Data Renetta rce(s) Supporting Document(s) Hemoglobin A1c/Hemoglobin.total in Blood 8.5 % 4.0-6.0 H [facility] Glucose mean value [Mass/volume] in Blood Estimated fr om glycated hemoglobin 197 mg/dL <126 H [facility] ID Date Data Source [id number] 04/20/2020 12:09:45 PM EDT [facility] Name Value Range Interpretation Code Description Data Renetta rce(s) Supporting Document(s) Glucose [Mass/volume] in Capillary blood by Glucometer 303 mg/dL 70- 140 H [facility] ID Date Data Source [id number] 04/20/2020 11:24:00 AM EDT [facility] ([facility] Name Value Range Interpretation Code Description Data Renetta rce(s) Supporting Document(s) Hemoglobin A1c/Hemoglobin.total in Blood 8.5 [facility] ([facility]) Procedure Social History Code Duration Value Status Description Data Source(s ) Smoking 03/06/2021 12:00:00 AM EDT Never Smoker completed Never S moker eCW1 ([facility]) Smoking 02/14/2021 12:00:00 AM EDT Never Smoker completed Never S moker eCW1 ([facility]) Smoking 02/14/2021 12:00:00 AM EDT Never Smoker completed Never S moker eCW1 ([facility]) Smoking 01/23/2021 12:00:00 AM EDT Never Smoked Cigarettes com pleted Never Smoked Cigarettes [facility] ([facility] ) Smoking 11/16/2020 12:00:00 AM EDT Patient has never smoked co mpleted Patient has never smoked [facility] ([facility]) Alcohol intake 11/01/2020 12:00:00 AM EDT Current drinker of al cohol (finding) completed Current drinker of alcohol (finding) [facility] Tobacco use and exposure 11/01/2020 12:00:00 AM EDT Current user co mpleted Current user [facility] Smoking 11/01/2020 12:00:00 AM EDT Never smoker completed Never s [facility] Smoking 09/20/2020 12:00:00 AM EDT Never Smoker completed Never S moker eCW1 ([facility]) Smoking 09/20/2020 12:00:00 AM EDT Never Smoker completed Never S moker eCW1 ([facility]) Smoking 09/20/2020 12:00:00 AM EDT Never Smoker completed Never S moker eCW1 ([facility]) Smoking 09/20/2020 12:00:00 AM EDT Never Smoker completed Never S moker eCW1 ([facility]) Smoking 09/20/2020 12:00:00 AM EDT Patient has never smoked co mpleted Patient has never smoked [facility] ([facility]) Smoking 09/20/2020 12:00:00 AM EDT Never Smoker completed Never S moker eCW1 ([facility]) Alcohol intake 09/01/2020 12:00:00 AM EST Current drinker of al cohol (finding) completed Current drinker of alcohol (finding) [facility] Smoking 08/23/2020 12:00:00 AM EST Never Smoker completed Never S moker eCW1 ([facility]) Smoking 08/23/2020 12:00:00 AM EST Never Smoker completed Never S moker eCW1 ([facility]) Smoking 08/23/2020 12:00:00 AM EST Never Smoker completed Never S moker eCW1 ([facility]) Smoking 07/31/2020 12:00:00 AM EST Never Smoker completed Never S moker eCW1 ([facility]) Smoking 07/31/2020 12:00:00 AM EST Never Smoker completed Never S moker eCW1 ([facility]) Smoking 07/31/2020 12:00:00 AM EST Never Smoker completed Never S moker eCW1 ([facility]) Smoking 06/15/2020 12:00:00 AM EST Never Smoker completed Never S moker eCW1 ([facility]) Smoking 06/15/2020 12:00:00 AM EST Never Smoker completed Never S moker eCW1 ([facility]) Smoking 06/15/2020 12:00:00 AM EST Never Smoker completed Never S moker eCW1 ([facility]) Smoking 06/15/2020 12:00:00 AM EST Never Smoker completed Never S moker eCW1 ([facility]) Smoking 06/15/2020 12:00:00 AM EST Never Smoker completed Never S moker eCW1 ([facility]) Smoking 06/15/2020 12:00:00 AM EST Never Smoker completed Never S moker eCW1 ([facility]) Smoking 06/15/2020 12:00:00 AM EST Never Smoker completed Never S moker eCW1 ([facility]) Smoking 06/15/2020 12:00:00 AM EST Never Smoker completed Never S moker eCW1 ([facility]) Smoking 06/15/2020 12:00:00 AM EST Never Smoker completed Never S moker eCW1 ([facility]) Smoking 06/15/2020 12:00:00 AM EST Never Smoker completed Never S moker eCW1 ([facility]) Smoking 06/15/2020 12:00:00 AM EST Never Smoker completed Never S moker eCW1 ([facility]) Smoking 06/15/2020 12:00:00 AM EST Never Smoker completed Never S moker eCW1 ([facility]) Smoking 06/15/2020 12:00:00 AM EST Never Smoker completed Never S moker eCW1 ([facility]) Smoking 06/15/2020 12:00:00 AM EST Never Smoker completed Never S moker eCW1 ([facility]) Smoking 05/24/2020 12:00:00 AM EST Never Smoker completed Never S moker eCW1 ([facility]) Smoking 05/24/2020 12:00:00 AM EST Never Smoker completed Never S moker eCW1 ([facility]) Smoking 05/24/2020 12:00:00 AM EST Never Smoker completed Never S moker eCW1 ([facility]) Smoking 05/24/2020 12:00:00 AM EST Never Smoker completed Never S moker eCW1 ([facility]) Vital Signs ID Date Data Source UNK Name Value Range Interpretation Code Description Data Source(s) Body weight 115.72 kg 115.72 kg eCW1 ([facility]) Body weight 255.12 [lb_av] 255.12 [lb_av] eCW1 ([facility]) Body mass index (BMI) [Ratio] 35.58 kg/m2 35.58 kg/m2 eCW1 ([facility]) Body height 71 [in_i] 71 [in_i] eCW1 ([facility]) Heart rate 78 /min 78 /min eCW1 ([facility]) Respiratory rate 18 /min 18 /min eCW1 ([facility]) Body temperature 98.3 [degF] 98.3 [degF] eCW1 ( [facility]) Systolic blood pressure 140 mm[Hg] 140 mm[Hg] e CW1 ([facility]) Diastolic blood pressure 90 mm[Hg] 90 mm[Hg] eCW1 ([facility]) Body weight 257 [lb_av] 257 [lb_av] eCW1 ([facility]) Body weight 116.57 kg 116.57 kg eCW1 ([facility]) Body height 71 [in_i] 71 [in_i] eCW1 ([facility]) Body mass index (BMI) [Ratio] 35.84 kg/m2 35.84 kg/m2 W1 ([facility]) Heart rate 81 /min 81 /min eCW1 ([facility]) Respiratory rate 18 /min 18 /min eCW1 ([facility]) Body temperature 97.4 [degF] 97.4 [degF] eCW1 ( [facility]) Systolic blood pressure 150 mm[Hg] 150 mm[Hg] e CW1 ([facility]) Diastolic blood pressure 84 mm[Hg] 84 mm[Hg] eCW1 ([facility]) Systolic blood pressure 124 mm[Hg] 124 mm[Hg] M EDENT ([facility] ) Diastolic blood pressure 78 mm[Hg] 78 mm[Hg] [facility] ([facility] ) Heart rate 78 /min 78 /min [facility] ([facility] ) Body weight 117.482 kg 117.482 kg MEDENT ([facility], ) Oxygen saturation in Arterial blood by Pulse oximetry 96 % 96 % [facility] ([facility] ) Body surface area Derived from formula 2.33 m2 2.[address] [facility] ([facility]) Body temperature 98.0 [degF] 98.0 [degF] [facility] ([facility]) 97.3 Body height 70 [in_i] 70 [in_i] [facility] ([facility]) 5'10" Body weight 259.00 [lb_av] 259.00 [lb_av] [facility] ([facility]) Body mass index (BMI) [Ratio] 37.2 kg/m2 37.2 k g/m2 [facility] ([facility]) [place] body weight 166 [lb_av] 166 [lb_av] [facility] ([facility]) Heart rate 69 /min 69 /min [facility] ([facility]) Body height 70 [in_i] 70 [in_i] [facility] ([facility]) 5'10" Body weight 258.00 [lb_av] 258.00 [lb_av] [facility] ([facility]) Oxygen saturation in Arterial blood by Pulse oximetry 96 % 96 % [facility] ([facility]) Body mass index (BMI) [Ratio] 37.0 kg/m2 37.0 k g/m2 [facility] ([facility]) Body weight 117.029 kg 117.[address] [facility] ([facility]) [place] body weight 166 [lb_av] 166 [lb_av] [facility] ([facility]) Body surface area Derived from formula 2.33 m2 2.[address] [facility] ([facility]) Oxygen saturation in Arterial blood by Pulse oximetry 96 % 96 % [facility] ([facility]) Body height 70 [in_i] 70 [in_i] [facility] ([facility]) 5'10" Body weight 258.00 [lb_av] 258.00 [lb_av] [facility] ([facility]) Body mass index (BMI) [Ratio] 37.0 kg/m2 37.0 k g/m2 [facility] ([facility]) [place] body weight 166 [lb_av] 166 [lb_av] [facility] ([facility]) Body weight 117.029 kg 117.[address] [facility] ([facility]) Body surface area Derived from formula 2.33 m2 2.[address] [facility] ([facility]) Systolic blood pressure 170 mm[Hg] 170 mm[Hg] [facility] ([facility]) Diastolic blood pressure 80 mm[Hg] 80 mm[Hg] [facility] ([facility]) Body height 70 [in_i] 70 [in_i] [facility] ([facility]) 5'10" Body weight 114.307 kg 114.[address] [facility] ([facility]) Body surface area Derived from formula 2.30 m2 2.[address] [facility] ([facility]) Body weight 252.00 [lb_av] 252.00 [lb_av] [facility] ([facility]) Body mass index (BMI) [Ratio] 36.2 kg/m2 36.2 k g/m2 [facility] ([facility]) [place] body weight 166 [lb_av] 166 [lb_av] [facility] ([facility]) Systolic blood pressure 174 mm[Hg] 174 mm[Hg] [facility] ([facility]) Diastolic blood pressure 86 mm[Hg] 86 mm[Hg] [facility] ([facility]) Diastolic blood pressure--sitting 80 mm[Hg] 80 mm[Hg] [facility] Ra, large cuff Body weight 248.00 [lb_av] 248.00 [lb_av] [facility] ([facility]) Body height 71 [in_i] 71 [in_i] [facility] 5'11" Body mass index (BMI) [Ratio] 34.6 kg/m2 34.6 k g/m2 [facility] Heart rate 91 /min 91 /min [facility] Systolic blood pressure--sitting 148 mm[Hg] 148 mm[Hg] [facility] ([facility]) Ra, large cuff Body height 71 [in_i] 71 [in_i] [facility] 5'11" Body mass index (BMI) [Ratio] 34.4 kg/m2 34.4 k g/m2 [facility] ([facility]) Systolic blood pressure--sitting 144 mm[Hg] 144 mm[Hg] [facility] ([facility]) Ra, large cuff Diastolic blood pressure--sitting 82 mm[Hg] 82 mm[Hg] [facility] ([facility]) Ra, large cuff Body weight 247.00 [lb_av] 247.00 [lb_av] [facility] ([facility]) Body temperature 97.5 [degF] 97.5 [degF] MEDENT ([facility]) Body height 69.5 [in_i] 69.5 [in_i] MEDENT ([facility]) 5'9.50" Body weight 246.50 [lb_av] 246.50 [lb_av] MEDEN T ([facility]) Body mass index (BMI) [Ratio] 35.9 kg/m2 35.9 k g/m2 MEDENT ([facility]) Systolic blood pressure 155 mm[Hg] 155 mm[Hg] e CW1 ([facility]) Body weight 247 [lb_av] 247 [lb_av] eCW1 ([facility]) Body height 71 [in_i] 71 [in_i] eCW1 ([facility]) Body mass index (BMI) [Ratio] 34.45 kg/m2 34.45 kg/m2 eCW1 ([facility]) Heart rate 78 /min 78 /min eCW1 ([facility]) Respiratory rate 18 /min 18 /min eCW1 ([facility]) Body temperature 98.1 [degF] 98.1 [degF] eCW1 ( [facility]) Diastolic blood pressure 73 mm[Hg] 73 mm[Hg] eCW1 ([facility]) Body mass index (BMI) [Ratio] 36.0 kg/m2 36.0 k g/m2 MEDENT ([facility]) Body weight 113.854 kg 113.854 kg MEDENT ([facility]) Body surface area Derived from formula 2.30 m2 2.[address] [facility] ([facility]) [place] body weight 166 [lb_av] 166 [lb_av] MEDEN T ([facility]) Systolic blood pressure 154 mm[Hg] 154 mm[Hg] M EDENT ([facility]) Diastolic blood pressure 73 mm[Hg] 73 mm[Hg] MEDENT ([facility]) Body height 70 [in_i] 70 [in_i] [facility] ([facility]) 5'10" Body weight 251.00 [lb_av] 251.00 [lb_av] MEDEN T ([facility]) Body weight 239 [lb_av] 239 [lb_av] eCW1 ([facility]) Body height 71 [in_i] 71 [in_i] eCW1 ([facility]) Body mass index (BMI) [Ratio] 33.33 kg/m2 33.33 kg/m2 W1 ([facility]) Heart rate 88 /min 88 /min eCW1 ([facility]) Respiratory rate 20 /min 20 /min eCW1 ([facility]) Body temperature 98.3 [degF] 98.3 [degF] eCW1 ( [facility]) Systolic blood pressure 145 mm[Hg] 145 mm[Hg] e CW1 ([facility]) Diastolic blood pressure 76 mm[Hg] 76 mm[Hg] eCW1 ([facility]) Body weight 231 [lb_av] 231 [lb_av] eCW1 ([facility]) Body height 71 [in_i] 71 [in_i] eCW1 ([facility]) Body mass index (BMI) [Ratio] 32.21 kg/m2 32.21 kg/m2 W1 ([facility]) Heart rate 78 /min 78 /min eCW1 ([facility]) Respiratory rate 20 /min 20 /min eCW1 ([facility]) Body temperature 97.9 [degF] 97.9 [degF] eCW1 ( [facility]) Systolic blood pressure 126 mm[Hg] 126 mm[Hg] e CW1 ([facility]) Diastolic blood pressure 66 mm[Hg] 66 mm[Hg] eCW1 ([facility]) Respiratory rate 16 /min 16 /min eCW1 ([facility]) Body temperature 96.8 [degF] 96.8 [degF] eCW1 ( [facility]) Diastolic blood pressure 68 mm[Hg] 68 mm[Hg] eCW1 ([facility]) Body weight 263 [lb_av] 263 [lb_av] eCW1 ([facility]) Body height 71 [in_i] 71 [in_i] eCW1 ([facility]) Body mass index (BMI) [Ratio] 36.68 kg/m2 36.68 kg/m2 eCW1 ([facility]) Heart rate 69 /min 69 /min eCW1 ([facility]) Systolic blood pressure 138 mm[Hg] 138 mm[Hg] e CW1 ([facility]) Body weight 261 [lb_av] 261 [lb_av] eCW1 ([facility]) Body height 71 [in_i] 71 [in_i] eCW1 ([facility]) Body mass index (BMI) [Ratio] 36.40 kg/m2 36.40 kg/m2 eCW1 ([facility]) Heart rate 67 /min 67 /min eCW1 ([facility]) Respiratory rate 16 /min 16 /min eCW1 ([facility]) Body temperature 97.1 [degF] 97.1 [degF] eCW1 ( [facility]) Systolic blood pressure 124 mm[Hg] 124 mm[Hg] e CW1 ([facility]) Diastolic blood pressure 78 mm[Hg] 78 mm[Hg] eCW1 ([facility]) Diastolic blood pressure--sitting 78 mm[Hg] 78 mm[Hg] MEDENT ([facility]) large cuff, Ra Body weight 261.00 [lb_av] 261.00 [lb_av] MEDEN T ([facility]) Body height 71 [in_i] 71 [in_i] MEDENT ([facility] 5'11" Body mass index (BMI) [Ratio] 36.4 kg/m2 36.4 k g/m2 MEDENT ([facility]) Heart rate 61 /min 61 /min MEDENT ([facility]) Systolic blood pressure--sitting 140 mm[Hg] 140 mm[Hg] MEDENT ([facility]) large cuff, Ra Systolic blood pressure 124 mm[Hg] 124 mm[facility]Hg[facility] Diastolic blood pressure 68 mm[Hg] 68 mm[Hg] [facility] ([facility]) Heart rate 65 /min 65 /min [facility] ([facility]) Oxygen saturation in Arterial blood by Pulse oximetry 96 % 96 % [facility] ([facility]) Body temperature 97.1 [degF] 97.1 [degF] [facility] ([facility]) Body height 70 [in_i] 70 [in_i] [facility] ([facility]) 5'10" Body weight 263.00 [lb_av] 263.00 [lb_av] MEDEN T ([facility]) Body mass index (BMI) [Ratio] 37.7 kg/m2 37.7 k g/m2 [facility] ([facility]) Body weight 119.297 kg 119.[address] [facility] ([facility]) ID Date Data Source [id number] 11/01/2020 11:36:31 AM [facility] Name Value Range Interpretation Code Description Data Source(s) WEIGHT RECORDED 240 lb 240 lb [facility] ID Date Data Source [id number] 04/24/2020 10:52:15 AM [facility] Name Value Range Interpretation Code Description Data Source(s) WEIGHT RECORDED 261.6 lb 261.6 lb [facility] Body height Measured 70.08 in 70.08 in [facility] Patient Treatment Plan of Care Planned Activity Planned Date Details Description Data Source (s) Levofloxacin 500 MG Oral Tablet 02/14/2021 12:00:00 AM EDT eCW1 ([facility]) tramadol hydrochloride 50 MG Oral Tablet 02/14/2021 12:00:00 AM EDT eCW1 ([facility]) Levofloxacin 500 MG Oral Tablet 02/14/2021 12:00:00 AM EDT eCW1 ([facility]) tramadol hydrochloride 50 MG Oral Tablet 02/14/2021 12:00:00 AM EDT eCW1 ([facility]) FreeStyle Shabbir 2 Sensor 11/01/2020 12:00:00 AM [facility] 3 ML Insulin Lispro 100 UNT/ML Pen Injector 10/26/2020 12:00:00 AM [facility] Chlorthalidone 25 MG Oral Tablet 10/25/2020 12:00:00 AM [facility] Cholecalciferol 2000 UNT Oral Capsule 10/17/2020 12:00:00 AM [facility] 120 ACTUAT Albuterol 0.1 MG/ACTUAT / Ipr atropium [place] 0.02 MG/ACTUAT Metered Dose Inhaler [Combivent] 10/02/2020 12:00:00 AM [facility] BD Pen Needle Original U/F 29G X 12.7MM (Insulin Pen N eedle) 2020 12:00:00 AM [facility] Levothyroxine Sodium 0.125 MG Oral Tablet 2020 12:00:00 AM [facility] doxycycline hyclate 100 MG Oral Capsule 09/20/2020 12:00:00 AM EDT eCW1 ([facility]) doxycycline hyclate 100 MG Oral Capsule 09/20/2020 12:00:00 AM EDT eCW1 ([facility]) doxycycline hyclate 100 MG Oral Capsule 09/20/2020 12:00:00 AM EDT eCW1 ([facility]) doxycycline hyclate 100 MG Oral Capsule 09/20/2020 12:00:00 AM EDT eCW1 ([facility]) doxycycline hyclate 100 MG Oral Capsule 09/20/2020 12:00:00 AM EDT eCW1 ([facility]) Amlodipine 2.5 MG Oral Tablet 09/04/2020 12:00:00 AM [facility] Trulicity 3 MG/0.5ML Subcutaneous Solution Pen-injecto r (Dulaglutide) 09/01/2020 12:00:00 AM [facility] Dexamethasone 2 MG Oral Tablet 07/31/2020 12:00:00 AM EST eCW1 ([facility]) Dexamethasone 2 MG Oral Tablet 07/31/2020 12:00:00 AM EST eCW1 ([facility]) May Have - 07/31/2020 12:00:00 AM EST e CW1 ([facility]) May Have - 07/31/2020 12:00:00 AM EST e CW1 ([facility]) Dexamethasone 2 MG Oral Tablet 07/31/2020 12:00:00 AM EST eCW1 ([facility]) May Have - 07/31/2020 12:00:00 AM EST e CW1 ([facility]) 3 ML Insulin, Aspart, Human 100 UNT/ML Pen Injector [N ovoLog] 05/04/2020 12:00:00 AM [facility] 3 ML Insulin Lispro 100 UNT/ML Pen Injector 04/27/2020 12:00:00 AM [facility] Basaglar KwikPen 100 UNIT/ML Subcutaneou s Solution Pen-injector (insulin glargine) 04/24/2020 12:00:00 AM [facility] FreeStyle Shabbir 14 Day Sensor 04/20/2020 12:00:00 AM [facility] Cholecalciferol 4000 UNT Oral Capsule 04/20/2020 12:00:00 AM [facility] 0.5 ML dulaglutide 3 MG/ML Auto-Injector [Trulicity] 020 12:00:00 AM [facility] FrankoBarry Delcandy Lancets 33G 04/20/2020 12:00:00 AM [facility] atorvastatin 40 MG Oral Tablet 04/20/2020 12:00:00 AM [facility] 3 ML insulin detemir 100 UNT/ML Pen Injector [Levemir] 04/20/2020 12:00:00 AM [facility] 3 ML Insulin, Aspart, Human 100 UNT/ML Pen Injector [N ovoLog] 04/20/2020 12:00:00 AM [facility] Losartan Potassium 100 MG Oral Tablet 04/19/2020 12:00:00 AM [facility] Naproxen 500 MG Oral Tablet 03/25/2020 12:00:00 AM [facility] BD Pen Needle Original U/F 29G X 12.7MM (Insulin Pen N eedle) 03/21/2020 12:00:00 AM [facility] Levothyroxine Sodium 0.125 MG Oral Tablet 03/21/2020 12:00:00 AM [facility] Cholecalciferol 1000 UNT Oral Tablet 03/21/2020 12:00:00 AM [facility] FreeStyle Shabbir 14 Day Sensor 11/23/2019 12:00:00 AM [facility] Baclofen 10 MG Oral Tablet 11/18/2019 12:00:00 AM [facility] 0.5 ML dulaglutide 3 MG/ML Auto-Injector [Trulicity] 020 12:00:00 AM [facility] Losartan Potassium 50 MG Oral Tablet 10/01/2019 12:00:00 AM [facility] 3 ML insulin detemir 100 UNT/ML Pen Injector 07/28/2019 12:00:00 AM [facility] 3 ML Insulin, Aspart, Human 100 UNT/ML Pen Injector 07/28/19 20 12:00:00 AM [facility] 0.5 ML dulaglutide 3 MG/ML Auto-Injector 07/28/2019 12:00:00 AM [facility] clopidogrel 75 MG Oral Tablet 08/25/2017 12:00:00 AM [facility] ONEBARRY DELCANDY LANCETS 33G MISC 06/17/2017 12:00:00 AM [facility] FreeStyle Shabbir 2 Sensor Ups [facility] tramadol hydrochloride 50 MG Oral Tablet [facility] Rosuvastatin calcium 20 MG Oral Tablet [facility] carvedilol 6.25 MG Oral Tablet [facility]
[2021-04-18] MEDS ORDERED: EPINEPHrine INJ 1 MG/ML 1ML AMP IM STA (21:39)
[2021-04-18] MEDS ORDERED: diphenhydrAMINE 50MG/ML VIAL (J1200) IV STA (21:41)
[2021-04-18] MEDS ORDERED: ISOVUE-370 76% 100ML VIAL As Ordered ONE (21:43)
[2021-04-18] MEDS ORDERED: FAMOTIDINE IV BAG 20 MG in IV 1 EA IV ONE (21:45)
[2021-04-18] MEDS ORDERED: COMBIVENT RESPIMAT 100-20MCG INHALER 4GM INH ONE (21:45)
[2021-04-18] MEDS ORDERED: methylPREDNISolone 125MG 2ML VIAL IV ONE (21:45)
[2021-04-18 21:48] LABS: BASO # 0.1 10^3/uL (0.0-0.2); BASO % 0.7 % (0.0-1.0); EOS # 0.2 10^3/uL (0.0-0.5); EOS % 2.3 % (0.0-3.0); HEMATOCRIT 44.4 % (42.0-52.0); HEMOGLOBIN 15.9 g/dl (13.5-17.5); LYMPH # 2.6 10^3/uL (1.5-5.0); LYMPH % 31.4 % (24.0-44.0); MEAN CORPUSCULAR HEMOGLOBIN 30.8 pg (27.0-33.0); MEAN CORPUSCULAR HGB CONC 35.8 g/dl (32.0-36.5); MONO # 0.6 10^3/uL (0.0-0.8); NEUTROPHILS # 4.9 10^3/uL (1.5-8.5); NEUTROPHILS % 58.1 % (36.0-66.0); PLATELET COUNT, AUTOMATED 207 10^3/uL (150-450); RED BLOOD COUNT 5.16 10^6/uL (4.30-6.10); WHITE BLOOD COUNT 8.3 10^3/uL (4.0-10.0)
[2021-04-18] MEDS ORDERED: RACEPINEPHrine 2.25 % UD INHA INH ONE (21:55)
[2021-04-18] MEDS ORDERED: CETACAINE SPRAY 5GM TOP ONE (22:05)
[2021-04-18 22:23] LABS: CK-MB VALUE MASS 1.9 NG/ML (<3.6); CPK CREATINE PHOSPHOKINASE 120 U/L (39-308); MB/CK RELATIVE INDEX 1.58 (< OR =4); TROPONIN I < 0.02 NG/ML (< 0.10)
--- OUTSIDE RECORDS SUMMARY | 2021-04-18 22:34 | CCD ---
Author Author [facility] Organization [facility] Address Unknown Phone Unavailable Care Team Providers [facility] Pelleter Name Role Phone Chase, L Antonella BOTANY TECHNICIAN Unavailable Unavailable Chase, L Antonella BOTANY TECHNICIAN Unavailable Unavailable Chase, L Antonella BOTANY TECHNICIAN Unavailable Unavailable Chase, L Antonella BOTANY TECHNICIAN Unavailable Unavailable Chase, L Antonella BOTANY TECHNICIAN Unavailable Unavailable Chase, L Antonella BOTANY TECHNICIAN Unavailable Unavailable Chase, L Antonella BOTANY TECHNICIAN Unavailable Unavailable Chase, L Antonella BOTANY TECHNICIAN Unavailable Unavailable Chase, L Antonella BOTANY TECHNICIAN Unavailable Unavailable Chase, L Antonella BOTANY TECHNICIAN Unavailable Unavailable Chase, L Antonella BOTANY TECHNICIAN Unavailable Unavailable Chase, L Antonella BOTANY TECHNICIAN Unavailable Unavailable Chase, L Antonella BOTANY TECHNICIAN Unavailable Unavailable Chase, L Antonella BOTANY TECHNICIAN Unavailable Unavailable Chase, L Antonella BOTANY TECHNICIAN Unavailable Unavailable Chase, L Antonella BOTANY TECHNICIAN Unavailable Unavailable Chase, L Antonella BOTANY TECHNICIAN Unavailable Unavailable Chase, L Antonella BOTANY TECHNICIAN Unavailable Unavailable Chase, L Antonella BOTANY TECHNICIAN Unavailable Unavailable Chase, L Antonella BOTANY TECHNICIAN Unavailable Unavailable Chase, L Antonella BOTANY TECHNICIAN Unavailable Unavailable Chase, L Antonella BOTANY TECHNICIAN Unavailable Unavailable Chase, L Antonella BOTANY TECHNICIAN Unavailable Unavailable Chase, L Antonella BOTANY TECHNICIAN Unavailable Unavailable Chase, L Antonella BOTANY TECHNICIAN Unavailable Unavailable Spenser, L Jessie PA Unavailable [...] Unavailable Unavailable REINEUGENIO, RACHEL WRIGHT Unavailable Unavailable REINRACHEL BECKER MD Unavailable Unavailable REINRACHEL BECKER MD Unavailable Unavailable REINDL, RACHEL WRIGHT Unavailable Unavailable REINDL, RACHEL WRIGHT Unavailable Unavailable REINDL, RACHEL WRIGHT Unavailable Unavailable REINDL, RACHEL WRIGHT Unavailable Unavailable REINDLRACHEL MD Unavailable Unavailable REINDL, RACHEL WRIGHT Unavailable Unavailable REINDL, RACHEL WRIGHT Unavailable Unavailable REINDL, RACHEL WRIGHT Unavailable Unavailable REINEUGENIO, RACHEL WRIGHT Unavailable Unavailable REINDL, RACHEL WRIGHT Unavailable Unavailable REINDL, RACHEL WRIGHT Unavailable Unavailable MAUREEN, RACHEL WRIGHT Unavailable Unavailable JOSÉ MIGUELDL, RACHEL WRIGHT Unavailable Unavailable REINDL, RACHEL WRIGHT Unavailable Unavailable REINEUGENIO, RACHEL WRIGHT Unavailable Unavailable MAUREEN, RACHEL WRIGHT Unavailable Unavailable REINEUGENIO, RACHEL WRIGHT Unavailable Unavailable MAUREEN, RACHEL WRIGHT Unavailable Unavailable MAUREEN, RACHEL WRIGHT Unavailable Unavailable JOSÉ MIGUELDL, RACHEL WRIGHT Unavailable Unavailable REINDL, RACHEL WRIGHT [...] Unavailable Unavailable GENA, SATYA PA Unavailable Unavailable GEAN, SATYA PA Unavailable Unavailable GENA, SATYA PA [...] Unavailable GENA, SATYA PA Unavailable Unavailable GENA, SATAY PA Unavailable Unavailable GENA, SATYA PA Unavailable [...] is protected by Article 27-F of the [facility] Public Health law. If you continue you may have access to information: Regarding HIV / AIDS; Provided by facilities licensed or operated by the [facility] Office of Mental Health; or Provided by the [facility] Office for People With Developmental Disabilities. If such information is present, then the following [facility] mandated warning applies: This information [...] law may result in a fine or long term sentence or both. A general authorization for the release of medical or other information is NOT sufficient authorization for further disc losure. Family History Family Member Name Family Member Gender Family Member Status Date o f Status Description Data Source(s) Unknown Male Problem [facility] ([facility] Unknown Unknown Problem [facility] ([facility]) Unknown Unknown Problem [facility] ([facility]) Unknown Unknown Problem [facility] ([facility]) Unknown Female Problem MEDENT ([facility]) Unknown Female Problem MEDENT ([facility]) Encounters Encounter Providers Location Date Indications Data Source(s ) Outpatient Attender: Evan Gonzalez 11/12/2021 12:00:00 AM [facility] Outpatient Attender: Evan Gonzalez 10/29/2021 12:00:00 AM [facility] Outpatient Attender: SATYA ANDERSON 06/04/2021 12:00:0 0 AM [facility] Outpatient [address] [facility], [facility] [address] 03/06/2021 12:00:00 AM EDT eCW1 ([facility]) Outpatient Attender: SATYA ANDERSON 03/02/2021 12:00:0 0 AM [facility] Outpatient Attender: Evan Gonzalez 03/01/2021 12:00:00 AM EDT [facility] Outpatient [address] [facility] [address] 02/14/2021 12:00:00 AM EDT eCW1 ([facility]) Unknown [address] [facility] [address] 02/14/2021 12:00:00 AM EDT eCW1 ([facility]) Unknown [address] [facility] [address] 02/02/2021 12:00:00 AM EDT eCW1 ([facility]) Outpatient Attender: Antonella Madera/Clarisa/Yasmany/Reindl 01/23/2021 02:30:00 PM EDT [facility] ([facility] Unknown [address] [facility] [address] 01/01/2021 12:00:00 AM EDT eCW1 ([facility]) Outpatient Attender: RACHEL Madera/Clarisa/Yasmany/Rein dl 11/29/2020 01:00:00 PM EDT [facility] ([facility]) Unknown [address] [facility] [address] 11/24/2020 12:00:00 AM EDT eCW1 ([facility]) Outpatient Attender: TERESA ANDERSON Main Office 11/16/2020 0 2:00:00 PM EDT MED[facility] ([facility]) Outpatient Attender: SATYA ANDERSON [id number] 11/01/2020 1 2:00:00 AM 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 [facility] USP (current) use of insulin Unknown [address] [facility] [address] 10/05/2020 12:00:00 AM EDT eCW1 ([facility]) Outpatient Attender: TERESA ANDERSON Main Office 10/02/2020 1 2:45:00 PM EDT MEDENT ([facility]) Outpatient Attender: Marilyn Padilla MD Physical Therapy 02:45:00 PM EDT MEDENT ([facility]) Outpatient [address] [facility] [address] 09/20/2020 12:00:00 AM EDT eCW1 ([facility]) Outpatient Attender: RACHEL Madera/Clarisa/Yasmany/José Miguel becker 09/06/2020 01:30:00 PM EST MEDENT ([facility]) Outpatient Attender: SATYA ANDERSON [id number] 12:00:00 AM EST - 09/01/2020 03:34:09 PM EST USP (current) use of insulin [facility] USP (current) use of insulin Unknown [address] [facility] [address] 08/29/2020 12:00:00 AM EST eCW1 ([facility]) Unknown [address] [facility] [address] 08/29/2020 12:00:00 AM EST eCW1 ([facility]) Outpatient [address] [facility] [address] 08/23/2020 12:00:00 AM EST eCW1 ([facility]) Outpatient Attender: Evan Gonzalez 08/03/2020 12:00:00 AM EST [facility] Outpatient [address] [facility] [address] 07/31/2020 12:00:00 AM EST eCW1 [facility] Unknown [address] [facility] [address] 07/31/2020 12:00:00 AM EST eCW1 [facility] Unknown [address] [facility] [address] 07/28/2020 12:00:00 AM EST eCW1 ([facility]) Unknown [address] [facility] [address] 07/27/2020 12:00:00 AM EST eCW1 ([facility]) Unknown [address] [facility] [address] 07/24/2020 12:00:00 AM EST eCW1 ([facility]) Unknown [address] [facility] [address] 07/21/2020 12:00:00 AM EST eCW1 ([facility]) Unknown [address] [facility] [address] 07/20/2020 12:00:00 AM EST eCW1 ([facility]) Unknown [address] [facility] [address] 07/20/2020 12:00:00 AM EST eCW1 ([facility]) Unknown [address] [facility] [address] 07/20/2020 12:00:00 AM EST eCW1 ([facility]) Unknown [address] [facility] [address] 07/13/2020 12:00:00 AM EST eCW1 ([facility]) Unknown [address] [facility] [address] 07/13/2020 12:00:00 AM EST eCW1 ([facility]) Unknown [address] [facility] [address] 07/11/2020 12:00:00 AM EST eCW1 ([facility]) Unknown [address] [facility] [address] 07/11/2020 12:00:00 AM EST eCW1 ([facility]) Unknown [address] [facility] [address] 07/10/2020 12:00:00 AM EST eCW1 ([facility]) Unknown [address] [facility] [address] 07/05/2020 12:00:00 AM EST eCW1 ([facility]) Unknown [address] [facility] [address] 07/04/2020 12:00:00 AM EST eCW1 ([facility]) Outpatient [address] [facility] [address] 06/15/2020 12:00:00 AM EST eCW1 ([facility]) Unknown [address] [facility] [address] 06/09/2020 12:00:00 AM EST eCW1 ([facility]) Unknown [address] [facility] [address] 06/08/2020 12:00:00 AM EST eCW1 ([facility]) Unknown [address] [facility] [address] 05/26/2020 12:00:00 AM EST eCW1 ([facility]) Outpatient [address] [facility] [address] 05/24/2020 12:00:00 AM EST eCW1 ([facility]) Outpatient Attender: Jessie ANDERSON Main Office 05/12/2020 07:15:0 0 AM EST MED[facility] ([facility]) Outpatient Attender: SATYA ANDERSON [id number] 12:00:00 AM EDT - 04/20/2020 12:42:09 PM EDT Type 2 diabetes mellitus with hyperglycemia [facility] Type 2 diabetes mellitus with hyperglyce starla Outpatient Attender: Antonella Madera/Clarisa/Yasmany/Maureen 03/30/2020 10:00:00 AM EDT MED[facility] ([facility]) Immunizations Vaccine Date Status Description Data Source(s) pneumococcal polysaccharide PPV23 03/06/2021 12:06:00 PM EDT comple allan eCW1 ([facility]) Tdap 03/06/2021 12:05:00 PM EDT completed e CW1 ([facility]) Medications Medication Brand Name Start Date Product Form Dose Route Admi nistrative Instructions Pharmacy Instructions Status Indications Reaction Description Data Source(s) tramadol hydrochloride 50 MG Oral Tablet traMADol HCl 50 MG traMADol HCl 50 MG 02/14/2021 12:00:00 AM EDT 1.0 {tablet_as_needed} active traMADol HCl 50 MG eCW1 ([facility]) Levofloxacin 500 MG Oral Tablet Levaquin 500 MG Levaquin 500 MG 02/14/2021 12:00:00 AM EDT 1.0 {tablet} active Le vaquin 500 MG eCW1 ([facility]) Levofloxacin 500 MG Oral Tablet Levaquin 500 MG Levaquin 500 MG 02/14/2021 12:00:00 AM EDT 1.0 {tablet} suspended Levaquin 500 MG eCW1 ([facility]) Levofloxacin 500 MG Oral Tablet Levaquin 500 MG Levaquin 500 MG 02/14/2021 12:00:00 AM EDT 1.0 {tablet} active Le vaquin 500 MG eCW1 ([facility]) tramadol hydrochloride 50 MG Oral Tablet traMADol HCl 50 MG traMADol HCl 50 MG 02/14/2021 12:00:00 AM EDT 1.0 {tablet_as_needed} active traMADol HCl 50 MG eCW1 ([facility]) tramadol hydrochloride 50 MG Oral Tablet traMADol HCl 50 MG traMADol HCl 50 MG 02/14/2021 12:00:00 AM EDT 1.0 {tablet_as_needed} active traMADol HCl 50 MG eCW1 ([facility]) 24 HR Diltiazem Hydrochloride 120 MG Extended Release Oral Capsule [Dilt] Dilt-XR 11/16/2020 12:00:00 AM EDT ORAL active MED[facility] ([facility]) FreeStyle Shabbir 2 Sensor 31043-008-77 11/01/2020 12:00:00 AM EDT 1 {each} Does not apply active 1 each by Does not apply route every 14 (fourteen) days Use as directed. Dx:E11.65 [facility] 100 unit/mL 10/27/2020 12:00:00 AM EDT insulin [...] 100 units with priming and titration.Dx: E11.65 [facility] Type 2 diabetes mellitus with hyperglyce starla, with long-term current use of insulin Chlorthalidone 25 MG Oral Tablet Chlorthalidone 25 MG Oral Tablet (HYGROTON) Chlorthalidone 25 MG Oral Tablet (HYGROTON) 10/25/2020 12:00:00 AM EDT active [facility] Cholecalciferol 1999 UNT Oral Capsule Vitamin D3 50 MC G (1999) Oral Capsule Vitamin D3 50 MCG (1999) Oral Capsule 10/17/2020 12:00:00 AM EDT active TAKE TWO CAPSULES BY MOUTH EVERY DAY [facility] 120 ACTUAT Albuterol 0.1 MG/ACTUAT / Ipr atropium Foreman 0.02 MG/ACTUAT Metered Dose Inhaler [Combivent] Combivent Respimat 20-100 MCG/ACT Inhalation Aerosol Solution Combivent Respimat 20-100 MCG/ACT Inhalation Aerosol S olution 10/02/2020 12:00:00 AM EDT active INHALE ONE PUFF BY MOUTH THREE TIMES A DAY [facility] doxycycline hyclate 100 MG Oral Capsule Doxycycline Hyclate 10/01/2020 12:00:00 AM EDT ORAL completed MEDENT ([facility]) 3 ML Insulin Lispro 25 UNT/ML / Insulin, Protamine Lispro, Human 75 UNT/ML Pen Injector [Humalog Mix] Humalog Mix 75/25 Kwikpen 10/01/2020 12:00:00 AM EDT active [facility] ([facility]) Basaglar Kwikpen Basaglar Kwikpen 10/01/2020 12:00:00 AM EDT active MEDENT ([facility]) Trulicity Trulicity 10/01/2020 12:00:00 AM EDT act artemio MEDENT ([facility]) Levothyroxine Sodium 0.125 MG Oral Table t Levothyroxine Sodium 125 MCG Oral Tablet (SYNTHROID) Levothyroxine Sodium 125 MCG Oral Tablet (SYNTHROID) 2020 12:00:00 AM EDT active Other specified hypothyroidism TAKE ONE TABLET BY MOUTH EVERY DAY [facility] Other specified hypothyroidism BD Pen Needle Original U/F 29G X 12.7MM (Insulin Pen Needle) [id number] 2020 12:00:00 AM EDT act artemio Type 2 diabetes mellitus with hyperglycemia, with long-term current use of insulin U se as directed. INJECT DIRECTED UP TO 6 TIMES PER DAY [facility] Type 2 diabetes mellitus with hyperglyce starla, with long-term current use of insulin doxycycline hyclate 100 MG Oral Capsule Doxycycline Hy clate 100 MG Doxycycline Hyclate 100 MG 09/20/2020 12:00:00 AM EDT 1.0 {capsule} active Doxycycline Hyclate 100 MG eCW1 ([facility]) doxycycline hyclate 100 MG Oral Capsule Doxycycline Hy clate 100 MG Doxycycline Hyclate 100 MG 09/20/2020 12:00:00 AM EDT 1.0 {capsule} active Doxycycline Hyclate 100 MG eCW1 ([facility]) doxycycline hyclate 100 MG Oral Capsule Doxycycline Hy clate 100 MG Doxycycline Hyclate 100 MG 09/20/2020 12:00:00 AM EDT 1.0 {capsule} active eCW1 ([facility]) doxycycline hyclate 100 MG Oral Capsule Doxycycline Hy clate 100 MG Doxycycline Hyclate 100 MG 09/20/2020 12:00:00 AM EDT 1.0 {capsule} active Doxycycline Hyclate 100 MG eCW1 ([facility]) doxycycline hyclate 100 MG Oral Capsule Doxycycline Hy clate 100 MG Doxycycline Hyclate 100 MG 09/20/2020 12:00:00 AM EDT 1.0 {capsule} active Doxycycline Hyclate 100 MG eCW1 ([facility]) Chlorthalidone 25 MG Oral Tablet Chlorthalidone 25 MG 2020 12:00:00 AM EST 1.0 {tablet_in_the_morning_with_food} active Chlorthalidone 25 MG eCW1 ([facility]) Chlorthalidone 25 MG Oral Tablet Chlorthalidone 25 MG 2020 12:00:00 AM EST 1.0 {tablet_in_the_morning_with_food} active Chlorthalidone 25 MG eCW1 ([facility]) Chlorthalidone 25 MG Oral Tablet Chlorthalidone 25 MG 2020 12:00:00 AM EST 1.0 {tablet_in_the_morning_with_food} active Chlorthalidone 25 MG eCW1 ([facility]) Chlorthalidone 25 MG Oral Tablet Chlorthalidone 25 MG 2020 12:00:00 AM EST 1.0 {tablet_in_the_morning_with_food} active Chlorthalidone 25 MG eCW1 ([facility]) Chlorthalidone 25 MG Oral Tablet Chlorthalidone 25 MG 2020 12:00:00 AM EST 1.0 {tablet_in_the_morning_with_food} active Chlorthalidone 25 MG eCW1 ([facility]) Chlorthalidone 25 MG Oral Tablet Chlorthalidone 25 MG 2020 12:00:00 AM EST 1.0 {tablet_in_the_morning_with_food} active Chlorthalidone 25 MG eCW1 ([facility]) Chlorthalidone 25 MG Oral Tablet Chlorthalidone 25 MG 2020 12:00:00 AM EST 1.0 {tablet_in_the_morning_with_food} active Chlorthalidone 25 MG eCW1 ([facility]) Chlorthalidone 25 MG Oral Tablet Chlorthalidone 25 MG 2020 12:00:00 AM EST 1.0 {tablet_in_the_morning_with_food} active eCW1 ([facility]) Chlorthalidone 25 MG Oral Tablet Chlorthalidone 09/14/2020 12:00:00 A M EST ORAL completed [facility] ([facility] 25 mg 09/14/2020 12:00:00 AM EST tablet 6 TAKE 1/2 TABLET ON FRIDAY, FRIDAY AND FRIDAY TAKE 1/2 TABLET ON FRIDAY, FRIDAY AND FRIDAY SOLD: 09/14/2020 [facility] 2.5 mg 09/04/2020 12:00:00 AM EST tablet 30 TAKE ONE TABLET BY MOUTH EVERY DAY TAKE ONE TABLET BY MOUTH EVERY DAY SOLD: 09/04/2020 [facility] Amlodipine 2.5 MG Oral Tablet amLODIPine Besylate 2.5 MG Oral Tablet (NORVASC) amLODIPine Besylate 2.5 MG Oral Tablet (NORVASC) 09/04/2020 12:00:00 AM EST 2.5 mg Oral active Take 2.5 mg by mouth [facility] Amlodipine 2.5 MG Oral Tablet Amlodipine Besylate 09/04/2020 12:00: 00 AM EST ORAL completed [facility] ([facility]) Trulicity 3 MG/0.5ML Subcutaneous Solution Pen-injecto r (Dulaglutide) 6634-2335-66 09/01/2020 12:00:00 AM EST 3 mg Subcutaneous active Inject 3 mg into the skin once a week [facility] 0.4 mg 08/10/2020 12:00:00 AM EST tablet, [...] {tablet} suspended Dexamethasone 2 M G eCW1 ([facility]) Dexamethasone 2 MG Oral Tablet Dexamethasone 2 MG 07/31/2020 12:00: 00 AM EST 1.0 {tablet} suspended Dexamethasone 2 M G eCW1 ([facility]) May Have - UNK 07/31/2020 12:00:00 AM EST active May Have - eCW1 ([facility]) Dexamethasone 2 MG Oral Tablet Dexamethasone 2 MG 07/31/2020 12:00: 00 AM EST 1.0 {tablet} active Dexamethasone 2 MG eCW1 ([facility]) May Have - UNK 07/31/2020 12:00:00 AM EST active May Have - eCW1 ([facility]) May Have - UNK 07/31/2020 12:00:00 AM EST active May Have - eCW1 ([facility]) May Have - UNK 07/31/2020 12:00:00 AM EST active May Have - eCW1 ([facility]) Dexamethasone 2 MG Oral Tablet Dexamethasone 2 MG 07/31/2020 12:00: 00 AM EST 1.0 {tablet} suspended Dexamethasone 2 M G eCW1 ([facility]) Dexamethasone 2 MG Oral Tablet Dexamethasone 2 MG 07/31/2020 12:00: 00 AM EST 1.0 {tablet} suspended Dexamethasone 2 M G eCW1 ([facility]) May Have - UNK 07/31/2020 12:00:00 AM EST active May Have - eCW1 ([facility]) May Have - UNK 07/31/2020 12:00:00 AM EST active May Have - eCW1 ([facility]) Dexamethasone 2 MG Oral Tablet Dexamethasone 2 MG 07/31/2020 12:00: 00 AM EST 1.0 {tablet} suspended Dexamethasone 2 M G eCW1 ([facility]) May Have - UNK 07/31/2020 12:00:00 AM EST active May Have - eCW1 ([facility]) May Have - UNK 07/31/2020 12:00:00 AM EST active May Have - eCW1 ([facility]) Dexamethasone 2 MG Oral Tablet Dexamethasone 2 MG 07/31/2020 12:00: 00 AM EST 1.0 {tablet} active Dexamethasone 2 MG eCW1 ([facility]) May Have - UNK 07/31/2020 12:00:00 AM EST active May Have - eCW1 ([facility]) Dexamethasone 2 MG Oral Tablet Dexamethasone 2 MG 07/31/2020 12:00: 00 AM EST 1.0 {tablet} suspended Dexamethasone 2 M G eCW1 ([facility]) Dexamethasone 2 MG Oral Tablet Dexamethasone 2 MG 07/31/2020 12:00: 00 AM EST 1.0 {tablet} suspended Dexamethasone 2 M G eCW1 ([facility]) May Have - UNK 07/31/2020 12:00:00 AM EST active May Have - eCW1 ([facility]) Dexamethasone 2 MG Oral Tablet Dexamethasone 2 MG 07/31/2020 12:00: 00 AM EST 1.0 {tablet} active Dexamethasone 2 MG eCW1 ([facility]) May Have - UNK 07/31/2020 12:00:00 AM EST active May Have - eCW1 ([facility]) Dexamethasone 2 MG Oral Tablet Dexamethasone 2 MG 07/31/2020 12:00: 00 AM EST 1.0 {tablet} suspended Dexamethasone 2 M G eCW1 ([facility]) May Have - UNK 07/31/2020 12:00:00 AM EST active May Have - eCW1 ([facility]) May Have - UNK 07/31/2020 12:00:00 AM EST active May Have - eCW1 ([facility]) Dexamethasone 2 MG Oral Tablet Dexamethasone 2 MG 07/31/2020 12:00: 00 AM EST 1.0 {tablet} suspended eCW1 ([facility]) Dexamethasone 2 MG Oral Tablet Dexamethasone 2 MG 07/31/2020 12:00: 00 AM EST 1.0 {tablet} suspended Dexamethasone 2 M G eCW1 ([facility]) May Have - UNK 07/31/2020 12:00:00 AM EST active eCW1 ([facility]) Dexamethasone 2 MG Oral Tablet Dexamethasone 2 MG 07/31/2020 12:00: 00 AM EST 1.0 {tablet} suspended Dexamethasone 2 M G eCW1 ([facility]) 50 mg 07/19/2020 12:00:00 AM EST tablet [...] MOUTH FOUR TIMES A DAY SOLD: 07/19/2020 [facility] benzonatate 100 MG Oral Capsule BENZONATATE 07/12/2020 12:00:00 AM EST capsule 30 TAKE ONE CAPSULE BY MOUTH THREE TIMES A DAY FOR COUGH TAKE ONE CAPSULE BY MOUTH THREE TIMES A DAY FOR COUGH SOLD: 07/12/2020 [facility] 90 mcg/actuation 07/12/2020 12:00:00 AM EST [...] ORAL active [facility] ([facility] 3 ML Insulin, Aspart, Human 100 UNT/ML P en Injector [NovoLog] NovoLOG FlexPen 100 UNIT/ML Subcutaneous Solution Pen-injector (insulin aspart) NovoLOG FlexPen 100 UNIT/ML Subcutaneous Solution Pen-injector (insulin aspart) 05/04/2020 12:00:00 AM EDT aborted Type 2 diabetes mellitus with hyperglycemia, with long-term current use of insulin INJECT UNDER THE SKIN THREE TIMES A DAY MAXIMUM DAILY DOSE = 125UNITS [facility] Type 2 diabetes mellitus with hyperglyce [...] units with titration and priming. Dx: E11.65 [facility] Type 2 diabetes mellitus with hyperglyce starla, with long-term current use of insulin 100 unit/mL (3 mL) 04/25/2020 12:00:00 AM EDT insulin pen 45 INJECT 60 UNITS EVERY MORNING AND 60 UNITS IN THE EVENING MAXIMUM DAILY DOSE = 144 UNITS INJECT 60 UNITS EVERY MORNING AND 60 UNITS IN THE EVENING MAXIMUM DAILY DOSE = 144 UNITS SOLD: 04/30/2020 [facility] 100 unit/mL (3 mL) 04/25/2020 [...] UNIT/ML Subcutaneou s Solution Pen-injector (insulin glargine) 0959-4145-20 04/24/2020 12:00:00 AM EDT active Type 2 diabetes mellitus with hyperglycemia, with long-term current use of insulin Inject 60 units, QAM and 60 units QPM, Max Daily Dose: 144 units inclusive of priming and titiration. Dx code: E11.65 [facility] Type 2 diabetes mellitus with hyperglyce [...] units with titration and priming. Dx: E11.65. [facility] Type 2 diabetes mellitus with hyperglyce starla, with long-term current use of insulin FreeStyle Shabbir 14 Day Sensor [id number] 04/20/2020 12:00:00 AM EDT active Type 2 diabetes mellitus with hyperglyce starla, with long-term current use of insulin Use as directed. Change every 14 days. Dx: E11.65 [facility] Type 2 diabetes mellitus with hyperglyce [...] of priming and titiration. Dx code: E11.65 [facility] Type 2 diabetes mellitus with hyperglyce [...] i nto the skin once a week [facility] Type 2 diabetes mellitus with hyperglyce starla, with long-term current use of insulin Cholecalciferol 4000 UNT Oral Capsule Ch olecalciferol 100 MCG (4000 UT) Oral Capsule Cholecalciferol 100 MCG (4000 UT) Oral Capsule 020 12:00:00 AM EDT 1 {capsule} Oral active Take 1 capsu le by mouth daily [facility] [place] Lancets 33G [phone] 04/20/2020 12:00:00 AM EDT aborted Type 2 diabetes mellitus with hyperglyce starla, with long-term current use of insulin Use to test blood sugar up to 4 times da adeola. Dx: e11.65 [facility] Type 2 diabetes mellitus with hyperglyce starla, with long-term current use of insulin atorvastatin 40 MG Oral Tablet ATORVASTATIN CALCIUM 04/20/2020 1 2:00:00 AM EDT tablet 30 TAKE 1 TABLET BY MOUTH AT BEDTIME TAKE 1 TABLET BY MOUTH AT BEDTIME SOLD: 04/24/2020 [employer] atorvastatin 40 MG Oral Tablet Atorvastatin Calcium 40 MG Oral Tablet (LIPITOR) Atorvastatin Calcium 40 MG Oral Tablet (LIPITOR) 04/20/2020 12:00:00 AM EDT aborted [facility] Losartan Potassium 100 MG Oral Tablet Lo sartan Potassium 100 MG Oral Tablet (COZAAR) Losartan Potassium 100 MG Oral Tablet (COZAAR) 020 12:00:00 AM EDT active [facility] Naproxen 500 MG Oral Tablet Naproxen 500 MG Oral Table t (NAPROSYN) Naproxen 500 MG Oral Tablet (NAPROSYN) 03/25/2020 12:00:00 AM EDT active TAKE ONE TABLET BY MOUTH EVERY 12 HOURS WITH FOOD OR MILK NEEDED [facility] BD Pen Needle Original U/F 29G X 12.7MM (Insulin Pen Needle) [id number] 03/21/2020 12:00:00 AM EDT act artemio Type 2 diabetes mellitus with hyperglycemia, with long-term current use of insulin U se as directed. INJECT DIRECTED UP TO 5 TIMES A DAY [facility] Type 2 diabetes mellitus with hyperglyce starla, with long-term current use of insulin Levothyroxine Sodium 0.125 MG Oral Table t Levothyroxine Sodium 125 MCG Oral Tablet (SYNTHROID) Levothyroxine Sodium 125 MCG Oral Tablet (SYNTHROID) 03/21/2020 12:00:00 AM EDT active Other specified hypothyroidism TAKE ONE TABLET BY MOUTH EVERY DAY [facility] Other specified hypothyroidism Cholecalciferol 1000 UNT Oral Tablet Vit olmedo D3 25 MCG (1000 UT) Oral Tablet (CHOLECALCIFEROL) Vitamin D3 25 MCG (1000 UT) Oral Tablet (CHOLECALCIFER OL) 03/21/2020 12:00:00 AM EDT aborted TAKE THREE TABLETS BY MOUTH EVERY DAY [facility] Cholecalciferol 1000 UNT Oral Capsule Vitamin D3 12/02/2019 12:00:00 AM EDT ORAL completed [facility] ([facility] FreeStyle Shabbir 14 Day Sensor [phone] 11/23/2019 12:00:00 AM EDT aborted Type 2 diabetes mellitus with hyperglyce starla, with long-term current use of insulin Use as directed. Change every 14 days. Dx: E11.65 [facility] Type 2 diabetes mellitus with hyperglyce starla, with long-term current use of insulin Baclofen 10 MG Oral Tablet Baclofen 10 MG Oral Tablet (LIORESAL) Baclofen 10 MG Oral Tablet (LIORESAL) 11/18/2019 12:00:00 AM EDT aborted TAKE ONE TABLET BY MOUTH THREE TIMES A DAY NEEDED FOR MUSCLE SPASMS [facility] 0.5 ML dulaglutide 3 MG/ML Auto-Injector [Trulicity] Trulicity 1.5 MG/0.5ML Subcutaneous Solution Pen-injector (dulaglutide) Trulicity 1.5 MG/0.5ML Subcutaneous Solution Pen-injector (dulaglutide) 10/04/2019 12:00:00 AM EDT aborted Type 2 diabetes mellitus with hyperglycemia, with long-term current use of insulin INJECT 1.5MG WEEKLY [facility] Type 2 diabetes mellitus with hyperglyce starla, with long-term current use of insulin Losartan Potassium 50 MG Oral Tablet Los gavin Potassium 50 MG Oral Tablet (COZAAR) Losartan Potassium 50 MG Oral Tablet (COZAAR) 10/01/19 12:00:00 AM EDT aborted [facility] 3 ML Insulin, Aspart, Human 100 UNT/ML P en Injector Insulin Aspart 100 UNIT/ML Subcutaneous Solution Pen-injector (NOVOLOG FLEXPEN) Insulin Aspart 100 UNIT/ML Subcutaneous Solution Pen-injector (NOVOLOG FLEXPEN) 07/28/2019 12:00:00 AM EST aborted Type 2 diabete s mellitus with hyperglycemia, with long-term current use of insulin Inject subq daily per insuli n orders. MDD 175 units with titration and priming. Dx: E11.65. [facility] Type 2 diabetes mellitus with hyperglyce starla, with long-term current use of insulin 0.5 ML dulaglutide 3 MG/ML Auto-Injector Dulaglutide 1.5 MG/0.5ML Subcutaneous Solution Pen-injector (TRULICITY) Dulaglutide 1.5 MG/0.5ML Subcutaneous So lution Pen-injector (TRULICITY) 07/28/2019 12:00:00 AM EST active Type 2 diabetes mellitus with hyperglycemia, with long-term current use of insulin Inject 1.5 mg once weekly. DX:E11.65 [facility] Type 2 diabetes mellitus with hyperglyce [...] of priming and titiration. Dx code: E11.65 [facility] Type 2 diabetes mellitus with hyperglyce starla, with long-term current use of insulin clopidogrel 75 MG Oral Tablet clopidogrel (PLAVIX) 75 MG tablet clopidogrel (PLAVIX) 75 MG tablet 08/25/2017 12:00:00 AM EST 75 mg Oral aborted Take 75 mg by mouth daily [facility] [employer]IM[employer] DELCANDY LANCETS [address] [facility] [phone] 06/17/2017 12:00:[address] aborted Type 2 diabetes idris itus with hyperglycemia, with long-term current use of insulin Use to test blood sugar up to 6 times da adeola. Dx: e11.65 [facility] Type 2 diabetes mellitus with hyperglyce starla, with long-term current use of insulin tramadol hydrochloride 50 MG Oral Tablet traMADol HCl 50 MG Oral Tablet (ULTRAM) traMADol HCl 50 MG Oral Tablet (ULTRAM) 50 mg Oral aborted Take 50 mg by mouth every 8 (eight) hours as needed [facility] Rosuvastatin calcium 20 MG Oral Tablet rosuvastatin (C RESTOR) 20 MG tablet rosuvastatin (CRESTOR) 20 MG tablet 20 mg Oral ab orted Take 20 mg by mouth 1 tab daily [facility] carvedilol 6.25 MG Oral Tablet carvedilol (COREG) 6.25 MG tablet carvedilol (COREG) 6.25 MG tablet 6.25 mg Oral aborted Take 6.25 mg by mouth Two times daily with meals [facility] FreeStyle Shabbir 2 Sensor [phone] 1 {each} Does not apply aborted 1 each by Does not apply route every 14 (fourteen) days Use as directed. Dx:E11.65 [facility] Insurance Providers Payer name Policy type / Coverage type Policy ID Covered alliance party ID Covered alliance party's relationship to patiño Policy Patiño Plan Information [facility] Anabel OSORIO Yoy, ZFH,[facility] Medigap Part B [id number] Self [id number] [facility] Anabel OSORIO Yoy,DAVI,[facility] Medigap Part B [id number] Self [id number] [facility] Anabel OSORIO Yoy, ZFH,[facility] Medigap Part B [id number] Self [id number] [facility] Anabel OSORIO Yoy, ZFH,[facility] Medigap Part B [id number] Self [id number] Anabel OSORIO Yoy,SARAH,[facility] Medigap Part B [id number] Self Ghi FHP-(DO Not Use) Medigap Part B [id number] Self 0 [id number] Ghi FHP-(DO Not Use) Medigap Part B [id number] Self Ghi FHP-(DO Not Use) Medigap Part B [id number] Self 0 [id number] Ghi FHP-(DO Not Use) Medigap Part B [id number] Self 0 [id number] Ghi FHP-(DO Not Use) Medigap Part B [id number] Self 0 [id number] BS [place] [employer] [id number] Family Dependent BS [place] Medigap Part B [id number] Family Dependent S [id number] BS [place] Medigap Part B [id number] Family Dependent S [id number] BS [place] Medigap Part B [id number] Family Dependent S [id number] BS [place] Medigap Part B [id number] Family Dependent S [id number] EXCELLUS C [id number] Self [id number] BS [place] [employer] [id number] Family Dependent EXCELLUS H [id number] Spouse [id number] EXCELLUS BCBS [id number] ORe YND [id number] BS [place] [employer] [id number] Family Dependent Y [id number] BS [place] [employer] [id number] Family Dependent Y [id number] BS [place] [employer] [id number] Family Dependent Y [id number] BS [place] [employer] [id number] Family Dependent Y [id number] [place] MEDICAID [id number] Liset 7 [id number] [place] EXCHANGE [id number] Liset 7 [id number] [place] EXCHANGE U [id number] Self [id number] [place] I [id number] Self [id number] ANSI-Not a Secondary Insurance [id number] [place] MEDICAID PI PI ANSI-Not a Secondary Insurance [id number] [place] 306/806 [id number] [place] [id number] [place] [employer] Health Maintenance Organization (HMO) [id number] Self [id number] ANSI-Not a Secondary Insurance [id number] ANSI-Not a Secondary Insurance [id number] SELF PAY 2 UNAVAILABLE 1 UNAVAILA BLE SELF PAY ONLY [id number] SP [id number] [place] BC[employer] Health Maintenance Organization (HMO) [id number] Family Dependent [id number] [place] 302/307 [id number] [place]2 [id number] [place] BCBS PI PI ANSI-Not a Secondary Insurance [id number] [place] [employer] Health Maintenance Organization (HMO) [id number] Self [id number] [place] [employer] Maintenance [employer] (HMO) [id number] Self [id number] EXC PLANS 1 [id number] ANSI-Not a Secondary Insurance [id number] ANSI-Not a Secondary Insurance [id number] MEDICAID [id number] SP [id number] MEDICAID M [id number] S [id number] MEDICAID [id number] SP [id number] [place] [id number] SP [id number] [place] 302/307 [id number] WI2 [id number] [employer] BCBS B [id number] P YND [id number] [place]BS [place] P[place] 302/307 [id number] WI2 [id number] [employer] BCBS Health Maintenance Organization (O) [id number] Family Dependent [place] MAINE [id number] SP 7 [id number] EMEDNY [id number] SP [id number] [place] [id number] S [id number] [place] P[place] 302/307 [id number] WI2 [id number] [place] [id number] SP [id number] BCBS [place] O [id number] U VY [id number] [employer] BCBS P [id number] P KARINE [id number] ANSI-Not a Secondary Insurance [id number] [place] [employer] Health Maintenance Organization ([facility]) [id number] 800 [id number] Self [id number] ANSI-Not a Secondary Insurance [id number] [place] -[employer] Health Maintenance Organization (O) [id number] Self 7 [id number] ANSI-Not a Secondary Insurance [id number] ANSI-Not a Secondary Insurance [id number] ANSI-Not a Secondary Insurance [id number] Problems, Conditions, and Diagnoses Code Display Name Description Problem Type Effective Dates Data Source(s) H65.21 [id number] Right chronic serous otitis media Problem 09/20/2020 12:00:00 AM EDT eCW1 ([facility]) Surgeries/Procedures Procedure Description Date Indications Data Source(s) TDAP VACCINE 7/> YR IM 03/06/2021 12:00:00 AM EDT eCW1 ([facility]) PNEUMOCOCCAL POLYSAC VACCINE 23-V 2 />YR SUBQ/IM 03/06 12:00:00 AM EDT eCW1 ([facility]) OFFICE OUTPATIENT VISIT 25 MINUTES 01/23/2021 12:00:00 AM EDT [facility] ([facility]) ECHO TTHRC R-T 2D W/WOM-MODE COMPL SPEC&COLR DOP 01/23 12:00:00 AM EDT [facility] ([facility]) Bronchospasm Evaluation 01/15/2021 12:00:00 AM EDT [place] ([facility]) Plethysmography Determination Lung Volumes & Per Airway Resi st 01/15/2021 12:00:00 AM EDT MED[facility] ([facility], ) DIFFUSING CAPACITY 01/15/2021 12:00:00 AM EDT [facility] ([facility]) Spirometry 12/07/2020 12:00:00 AM EDT M EDENT ([facility]) OFFICE OUTPATIENT VISIT 25 MINUTES 12/07/2020 12:00:00 AM EDT [facility] ([facility]) OFFICE OUTPATIENT VISIT 25 MINUTES 11/29/2020 12:00:00 AM EDT [facility] ([facility]) ECG ROUTINE ECG W/LEAST 12 LDS W/I&R 11/16/2020 12:00: 00 AM EDT [facility] ([facility]) OFFICE OUTPATIENT VISIT 25 MINUTES 11/16/2020 12:00:00 AM EDT [facility] ([facility]) ECG ROUTINE ECG W/LEAST 12 LDS W/I&R 10/02/2020 12:00: 00 AM EDT [facility] ([facility]) OFFICE OUTPATIENT VISIT 15 MINUTES 10/02/2020 12:00:00 AM EDT [facility] ([facility]) ARTHROCENTESIS ASPIR&/INJECTION MAJOR JT/BURSA 021 12:00:00 AM EDT MED[facility] ([facility] ) RADEX SHOULDER COMPLETE MINIMUM 2 VIEWS 09/20/2020 12: 00:00 AM EDT MED[facility] ([facility] ) OFFICE OUTPATIENT VISIT 15 MINUTES 09/06/2020 12:00:00 AM EST MED[facility] ([facility], ) ECHO TTHRC R-T 2D W/WOM-MODE COMPL SPEC&COLR DOP 06/26 12:00:00 AM EST [facility] ([facility]) ECG ROUTINE ECG W/LEAST 12 LDS W/I&R 05/12/2020 12:00: 00 AM EST [facility] ([facility]) POCT HEMOGLOBIN A1C, DOCKED <td>POCT HEMOGLOBIN A1C, DOCKED</td><td>Routine</td><td>04/20/2020 12:00 PM EDT</td><td></td><td> </td> 04/20/2020 12:00:00 PM [facility] POCT GLUCOSE, DOCKED <td>POCT GLUCOSE, DOCKED</td ><td>Routine</td><td>04/20/2020 11:58 AM EDT</td><td></td><td> </td> 04/20/2020 11:58:00 AM [facility] Results ID Date Data Source URINE CULTURE 02/14/2021 12:00:00 AM EDT eCW1 ([facility]) Name Value Range Interpretation Code Description Data Renetta rce(s) Supporting Document(s) URINE CULTURE eCW1 ([facility]) ID Date Data Source UA URINALYSIS 02/14/2021 12:00:00 AM EDT eCW1 ([facility]) Name Value Range Interpretation Code Description Data Renetta rce(s) Supporting Document(s) UA URINALYSIS eCW1 ([facility]) ID Date Data Source [id number] 12/07/2020 09:56:00 AM EDT MED[facility] ([facility], ) Name Value Range Interpretation Code Description Data Renetta rce(s) Supporting Document(s) PDFReport Laboratory test result MEDENT ([facility], ) FVC-Pred 4.80 L [facility] ([facility]) FVC-Pre 2.82 L [facility] ([facility]) FVC-%Pred-Pre 58 L MED[facility] ([facility], ) FVC-LLN 3.87 L [facility] ([facility]) Fev1-Pred 3.64 L [facility] ([facility]) Fev1-%Pred-Pre 67 L [facility] ([facility]) Fev1-Pre 2.44 L [facility] ([facility]) Fev6-Pre 2.81 L [facility] ([facility]) Fev6-Pred 4.59 L [facility] ([facility]) Fev1-LLN 2.85 L [facility] ([facility]) Fev6-LLN 3.68 L [facility] ([facility]) Fev6-%Pred-Pre 61 L [facility] ([facility], ) Qsk7umi-Jec 87 % [facility] ([facility]) Cwv0whj-%Pred-Pre 114 % [facility] ([facility]) Ips3dzy-Xzpn 76 % [facility] ([facility]) Kfo0kzy-Dfy 99 % [facility] ([facility]) Wsj8dcd-Mysl 96 % [facility] ([facility]) Fuk2plk-PMB 66 % [facility] ([facility]) FEFMax-Pre 5.43 L/E/sec MED[facility] ([facility]) FEFMax-Pred 9.30 L/E/sec [facility] ([facility]) Jwo0fzb-%Pred-Pre 103 % [facility] ([facility]) Rzu9998-Quep 3.02 L/E/sec [facility] ([facility]) FEFMax-%Pred-Pre 58 L/E/sec [facility] ([facility]) FEFMax-LLN 6.97 L/E/sec [facility] ([facility]) Xkd3958-SEC 1.42 L/E/sec [facility] ([facility]) Inh7074-%Pred-Pre 91 L/E/sec [facility] ([facility]) Hkx3063-Www 2.76 L/E/sec [facility] ([facility]) ExpTime-Pre 7.20 sec [facility] ([facility]) Nhn9rbs8-Wqez 79 % [facility] ([facility]) Dxa0kgo7-Kee 87 % [facility] ([facility]) Rmg0mqk3-NDN 70 % [facility] ([facility]) Vvd8gfq2-%Pred-Pre 110 % [facility] ([facility]) ID Date Data Source [id number] 11/16/2020 03:33:00 PM EDT MED[facility] ([facility]) Name Value Range Interpretation Code Description Data Renetta rce(s) Supporting Document(s) Natriuretic peptide.B prohormone N-Terminal [Mass/volu me] in Serum or Plasma 94 pg/mL [facility] ([employer] [facility]) ID Date Data Source [id number] 11/16/2020 03:33:00 PM EDT MED[facility] ([facility]) Name Value Range Interpretation Code Description Data Renetta rce(s) Supporting Document(s) Glucose, Fasting 246 mg/dL 70-100 [facility] ([facility]) Blood Urea Nitrogen 16 mg/dL 7-18 [facility] ([facility]) Creatinine For GFR 1.01 mg/dL 0.70-1.30 [facility] ([facility]) Glomerular Filtration Rate Laboratory test result [facility] ([facility]) <content>Units are mL/min/1.73 m2</content>
<content></content>
<content>Chronic Kidney Disease Staging per NKF:</content>
<content></content>
<content>Stage I & II GFR >=60 Normal to Mildly Decreased</content>
<content>Stage III GFR 30- 59 Moderately Decreased</content>
<content>Stage IV GFR 15-29 Severely Decreased</content>
<content>Stage V GFR <15 Very Little GFR Left</content>
<content>ESRD GFR <15 on CUSTOMS COMPLIANCE DIRECTOR</content>
<content></content> Potassium Serum 4.0 meq/L 3.5-5.1 [facility] ([facility]) Sodium Level 141 meq/L 136-145 [facility] ([facility]) Chloride Level 109 meq/L 98-107 [facility] ([facility]) Anion Gap 4 meq/L 8-16 [facility] ([facility]) Carbon Dioxide Level 28 meq/L 21-32 [facility] ([facility]) Calcium Level 9.2 mg/dL 8.5-10.1 [facility] ([facility]) ID Date Data Source [id number] 11/01/2020 11:36:31 AM EDT [facility] Name Value Range Interpretation Code Description Data Renetta rce(s) Supporting Document(s) Progress Note [facility] NNNIZv3nXkZLLxUs53/YFRavDLOct4ZaMMchZVc8EUdbBHUoL9VzNRX5zZ5hRIN2YUcQErKxQeBgBKN2 lbm [file] ICAgICAgICAgICAgICAgICAgICAgICAgICAgICAgICAgICAgICAgICAgICAgICAgICAgICAgICAgICAg AOGjKUZcEQPzYN9NURUjCKPxMDIbCSYtNAYfAGQnLGUiOWNlOSVuBXYfDJMnSEEaEPExUXStXINpWUYm ICAgICAgICAgICAgICAgICAgICAgICAgICAgICAgIC IlYDOpFBBzWUJrHSXaRIOsNYGeIL9YNJCoSUWsISKtEQOtNLFdXPUqBRXcAZWfDOUrLYPqYEOgAINbIU AgICAgICAgICAgICAgICAgICAgICAgICAgICAgICAgICAgICAgICAgICAgICAgICAgICAgICAgICAgIC NdYY1DMWTfMTUhQXGzRKYvWIHiPLGgRUHhSEIpPDNw ICAgICAgICAgICAgICAgICAgICAgICAgICAgICAgICAgICAgICAgICAgICAgICAgICAgICAgICAgICAg NVRxWNBeCRLzTGQpEB3VBJDpRTUeIMLsUHMsKHBiUWLsGAVgLYQtZQHjZWSdAYGuSSZdEEFwIOZnKTMm ICAgICAgICAgICAgICAgICAgICAgICAgICAgICAgIC JkHDYjGHYhZFDaVYIyWANiGUVyPLIuQN2QNUQhITRxGKYmGTSgVDAeSTIpRINmIEJfOWVnRHBmHXJyXM AgICAgICAgICAgICAgICAgICAgICAgICAgICAgICAgICAgICAgICAgICAgICAgICAgICAgICAgICAgIC IjPVHoZC9VDHIwBCEwFCHoXLVtLTOdATIjBFDxZCYc ICAgICAgICAgICAgICAgICAgICAgICAgICAgICAgICAgICAgICAgICAgICAgICAgICAgICAgICAgICAg FFGcPVFfQUMzVPFyGKNrRO2EIDAyCMXnYAGgHHMlGUHeRMGyHHMtNVLvPHNdSDBaINDaEEHzZQXrCDDh ICAgICAgICAgICAgICAgICAgICAgICAgICAgICAgIC PfFMRgELFeHSDtGPFrXCDcJLLpPTFxZCAlKB8NHYOzJYFtYQEsJJEuVLNqBAHjLTRsAQRjPSAeWKYkZW AgICAgICAgICAgICAgICAgICAgICAgICAgICAgICAgICAgICAgICAgICAgICAgICAgICAgICAgICAgIC MqAEJjSVOwTA4EKIFtNIDlVDTtCNJqWMOnVVIyFEHa ICAgICAgICAgICAgICAgICAgICAgICAgICAgICAgICAgICAgICAgICAgICAgICAgICAgICAgICAgICAg EIXxZXSlOIWiDPWtFOEiDHOkTG4AZR29fLLky4Y0YQGcTY8bkqu/Kx2HCWezxeLjsMMrHZ0ILuHbWC2y tf9KNnAoOQ4bij9FEOwOJjBeJ1H3oJGwMSRyENUAAy LwW51gISdeFz65PEmcRPEgTiOpGLx3Cx8FSdQtP8roAVCpVpU1EWIpLjE6CHHgNxB2KNBpMqAyMGCuAX OaXEEjWYYAUFY6METeOhPcWuPsTZNzZA4ASXGzK926kyYlHp9MXk1GZgFvIQ7onz6JBlFpUIHlMjuTNd z1LNksNG9UqEVzoSFdYbWoEJODKsRbS1tcd3ZvZiAg ZKQGVMklJG1Sh4BkkKOjSPn+Vt7ENZ2kw1ZbIJudDmSgNR6tzh9XBNbAYdGrB3YtvRekYSByj9emIROz KS3ocTOqOQI4QQFtbsrymLmfSIVmKBRhxxzeC1ZdwerkEWApTWBnLM7oQC4pTRDnSURyUxTsCBGKDO3A USXeAKRxcHOjZPGkMPBHQO5YKLxmRYA5SGRtwrVmsF KaTBmyBN3BXPIdpbWeFuYjMVDRNWu+Vu5GSW8tw7KbDLqiSkXpCE8tqz9FSRfNMaFbL4W5zQAeS2R8PY edUg7SAYLxLSTmEggpAVGODTjuYR5LLW2sldO2OL1BgFOlEDBuAPYeeMZyPRu1A11dyCSzJJsaQA6ELF A+Cristina+Ey3KIJAiPRNlSYDjXdFjNMCAPtAaB3SrJ9EB r0XhE2KvYB63sGpoksIrBXktLX9BTV4wANCoYLGPRV2VrNPyxD1pgpFdIBGqPPJDPiAzI36pkDWeVIGd YGEwSVTxBp4FKZOvX7HimeQfjXjgpkNqOOFkREQPBR2FJJbnnxVreJNtkGddNI86xOssXF5RMk2OZfNs MB4bqc4KvEVvVz9SBELsOE0OYFQfODWuIEWsLSN1RZ SgFxKeWLcwVMYeHLWwJKN0OTSgRASkYQ3WLgQrPDLvEKZrXOogMCBsHRAiaz9ORXLkUHE2HFprPlHiDX SoKAMoERbmFVOtGPKjZXM3EVPlDCAyKE9PLgXrZLMzDZM1VuKxDNNfBHFxwv5AMGXqRTFqLHAjOKCsQS PjHXCyFXhnHXUjDKI2DHRlQVLtVOMgQB7ZLcXuAAJz SSizUzNwSSWwZYSxpi2FSONoNYIiNiX9OiIiKABsGCThPZqpOLPaJYFdPQSpPHMsMZFxDE8PTySsBGMc LJX6XxlvJHFxSGCsks2QLAMbFYAbNGq6GrRoZRFdEVVgEQuePTWsVRF1Zze7PHNqNPSuGW1SEmDcPQHp NWk3DTRlALMfTLMsaz4ARRNdEJDkMDi9XAIhEXVaJG XpNFihTXWcJOBwPKQkOOJhOYZiJL2WYaKzGLToUuV9QGBcEVDzPBMjbs7LISBhKWLuLDD8XcNiOBLiFP EgZUwdRQPzFWO8EUO2RLSfFIJcEP2PGdLaIPGqCtUbPCFwXIPrNQRjlk0POUWoYZFwZnU4GvNrVEPlLL UjRXseLFJzYQR6PJW7DLFtYYHrRP0RHaJuPICzOaw9 ESanDAVfFDBckh7QFTDfECEdAxrzXbAhQZKbEYAuTNuqHPQxMPS3ZwL9CZObDTRcES7NWaXyPDGgHqh1 XUVaCMOuZLMtzp3ENDOhEJEzQMakLYSkUAXmBYBeLZjeLJZaBFIcAPAbWRNhVKKaRP3CAcNuJWJoVHCq NXBwABRvCQBhtp9OCBRfVBN6SAS2HwSyMMJiNHYcMY smGPGcPYLjZSg4PRLfSWLeOJ9QZiJkNPEyKABlYOBzWPQpXBQwak9QFQPlMCP8LtLrEfFlOOVnVMWdAA x9axKwtNVmHAh9GU6II6PbriPfGqGVWs4Ee826SYUlWGDbQi7PD3znDs3dLRJnVELQEz6LMVt2NALaSc XlTYsnQUKdDYLwWoItZhEeIFF3GZBmHBQaHIX+IDw4 BFJ3DBP3SPWdNtRjXsXxMANbHvGqOBvoGHS1KFG0Zs6aFVAREx5+YPrchLTdgPnuAXAHIfMxWJQ2WXxs FVSCQs6P ID Date Data Source [id number] 11/01/2020 11:36:26 AM EDT [facility] Name Value Range Interpretation Code Description Data Renetta rce(s) Supporting Document(s) Progress Note [facility] VVNBPy0mEuKESnDi93/JQIkjFWSfj2MeGYohVYr6XIkhUYDaT8WzUMX5fF6vEKA7HWaAMbQrOqAjFOA0 lbm [file] aNLIMQ1INZAjMSnIaIlYrbs0X2KfRM0TDahe// [file] OYMhIXi4DkQbKaQwBMQ9PnLkHR4STo1QDsT9YRG2hPEvTv7KDbXhXaCHWzHgNH6BTFt= ID Date Data Source [id number] 09/27/2020 04:17:00 PM EDT [facility] [facility]) Name Value Range Interpretation Code Description Data Renetta rce(s) Supporting Document(s) Creatinine For GFR 0.88 mg/dL 0.70-1.30 [facility] ([facility]) Blood Urea Nitrogen 19 mg/dL 7-18 [facility] ([facility]) Glucose, Fasting 150 mg/dL 70-100 [facility] ([facility]) Glomerular Filtration Rate Laboratory test result [facility] ([facility]) <content>Units are mL/min/1.73 m2</content>
<content></content>
<content>Chronic Kidney Disease Staging per NKF:</content>
<content></content>
<content>Stage I & II GFR >=60 Normal to Mildly Decreased</content>
<content>Stage III GFR 30- 59 Moderately Decreased</content>
<content>Stage IV GFR 15-29 Severely Decreased</content>
<content>Stage V GFR <15 Very Little GFR Left</content>
<content>ESRD GFR <15 on CUSTOMS COMPLIANCE DIRECTOR</content>
<content></content> Sodium Level 141 meq/L 136-145 [facility] [...] U/L 45-117 [facility] Bilirubin,Total 0.6 mg/dL 0.2-1.0 [facility] ([facility] Total Protein 7.2 GM/DL 6.4-8.2 [facility] ([facility]) Albumin 4.2 GM/DL 3.2-5.2 [facility] ([facility] Albumin/Globulin Ratio 1.4 [facility] ([facility]) ID Date Data Source [id number] 09/06/2020 03:50:00 PM EST [facility] ([facility], ) Name Value Range Interpretation Code Description Data Renetta rce(s) Supporting Document(s) Ceruloplasmin [Mass/volume] in Serum or Plasma 26.6 mg/dL 1 6.0-31.0 Normal (applies to non-numeric results) [facility] ([facility] ) Performed at: [facility] [address] [id number] Operations Supervisor [employer] Cleaning: Js Marcelo MD, Phone: [phone] Performed at: - [facility] [address] [id number] Operations Supervisor Chemical Cleaning: Santa Blackburn MD, Phone: [phone] ID Date Data Source [id number] 09/06/2020 03:50:00 PM EST [facility]) Name Value Range Interpretation Code Description Data Renetta rce(s) Supporting Document(s) Iron (Fe) 85 ug/dL 65-175 Normal (applies to non-numeric resul ts) [facility] ([facility]) Percent Saturation 30.4 % 19.7-50.0 Normal (applies to non-numer ic results) [facility] ([facility]) Total Iron Binding Capacity 280 ug/dL 250-450 Norm al (applies to non-numeric results) [facility]) ID Date Data Source [id number] 09/06/2020 03:50:00 PM EST [facility] ([facility]) Name Value Range Interpretation Code Description Data Renetta rce(s) Supporting Document(s) Liver-Kidney Microsomal Lelo Laboratory test result 0.0-20.0 Normal (applies to non-numeric results) [facility] ([facility]) Negative 0.0 - 20.0 Equivocal 20.1 - 24.9 Positive >24.9 . LKM type 1 antibodies are detected in patients with autoimmune hepatitis type 2 and in up to 8% of patients with chronic HCV infection. ID Date Data Source [id number] 09/06/2020 03:50:00 PM EST [facility]) Name Value Range Interpretation Code Description Data Renetta rce(s) Supporting Document(s) Cytoplasmic Neutrop AB Anca-C Laboratory test result Normal (applies to non- numeric results) [facility] ([facility]) Perinuclear AB Anca-P Laboratory test result Nor mal (applies to non-numeric results) [facility]) The presence of positive fluorescence ex hibiting P-ANCA or C-ANCA patterns alone is not specific for the diagnosis of Ally's Granulomatosis (WG) or microscopic polyangiitis. Decisions about treatment should not be based solely on ANCA IFA results. The International ANCA Group Consensus recommends follow up testing of positive sera with both IA- 3 and MPO-ANCA enzyme immunoassays. As m any as 5% serum samples are positive only by EIA. Ref. AM J Clin Pathol 1999;111:507-513. Anca-Atypical Laboratory test result Normal (applies t o non-numeric results) [facility] ([facility]) The atypical pANCA pattern has been obse rved in a significant percentage of patients with ulcerative colitis, primary sclerosing cholangitis and autoimmune hepatitis. ID Date Data Source [id number] 09/06/2020 03:50:00 PM EST [facility] ([facility]) Name Value Range Interpretation Code Description Data Renetta rce(s) Supporting Document(s) Mitochondria Ab [Units/volume] in Serum Laboratory test result 0 .0-20.0 Normal (applies to non-numeric results) [facility] ([facility]) Negative 0.0 - 20.0 Equivocal 20.1 - 24.9 Positive >24.9 . Mitochondrial (M2) Antibodies are found in 90-96% of patients with primary biliary cirrhosis. ID Date Data Source [id number] 09/06/2020 03:50:00 PM EST [facility] ([facility]) Name Value Range Interpretation Code Description Data Renetta rce(s) Supporting Document(s) Antinuclear Antibodies Direct Laboratory test result Abnormal (applies to non- numeric results) [facility] ([facility]) PAINTING TRADES WORKER Antibodies 1.1 AI 0.0-0.9 Above high normal [facility] ([facility]) Anti Double Strand-Dna AB 1 IU/ml 0-9 Normal (applies to no n-numeric results) [facility] ([facility]) <content>Negative <5</content>
<content>Equivocal 5 - 9</content>
<content>Positive >9</content>
<content></content> Hernandez Antibodies Laboratory test result 0.0-0.9 Normal ( applies to non-numeric results) [facility] ([facility]) Sjogren's Anti SS-B Laboratory test result 0.0-0.9 Vannessa l (applies to non- numeric results) [facility] ([facility]) Sjogren's Anti SS-A Laboratory test result 0.0-0.9 Vannessa l (applies to non- numeric results) [facility] ([facility] ) Chad Comment Laboratory test result Normal (applies to non- numeric results) [facility] ([facility], ) . Autoantibody Disease Association Condition Frequency [...] (anti-Hernandez) SLE 15 - 30% ------- --------- PAINTING TRADES WORKER Mixed Connective Tissue Disease 95% (U1 nRNP, SLE 30 - 50% anti-ribonucleoprotein) Polymyositis and/or Dermatomyositis 20% -------- --------- Scl-70 (antiDNA Scleroderma (diffuse) 20 - 35% topoisomerase) Crest 13% -------- --------- Christine-1 Polymyositis and/or Dermatomyositis 20 - 40% -------- --------- Centromere B Scleroderma - Crest variant 80% ID Date Data Source [id number] 09/06/2020 03:50:00 PM EST [facility] ([facility], ) Name Value Range Interpretation Code Description Data Renetta rce(s) Supporting Document(s) Tissue transglutaminase IgA Ab [Units/volume] in Serum Labor atory test result 0-3 Normal (applies to non-numeric results) [facility] ([facility], ) Negative 0 - 3 Weak Positive 4 - 10 Positive >10 . Tissue Transglutaminase (tTG) has been identified as the endomysial antigen. Studies have demonstr- ated that endomysial IgA antibodies have over 99% specificity for gluten sensitive enteropathy. IgA [Mass/volume] in Serum or Plasma 99.5 mg/dL 70-400 Normal (applies to non- numeric results) [facility] ([facility], ) 09/13/20 (FriSep 13) 12:58 PM RACHEL RE INDL ok ID Date Data Source [id number] 09/06/2020 03:50:00 PM EST [facility] ([facility]) Name Value Range Interpretation Code Description Data Renetta rce(s) Supporting Document(s) White Blood Count 6.2 10 4.0-10.0 Normal (applies to non-numeri c results) [facility] ([facility]) Red Blood Count 4.31 10 4.30-6.10 Normal (applies to non-numeric results) [facility] ([facility]) Hemoglobin 12.9 g/dL 13.5-17.5 Below low normal [facility] ( [facility]) Mean Corpuscular Hemoglobin 29.9 pg 27.0-33.0 Norm al (applies to non-numeric results) [facility] ([facility]) Hematocrit 38.3 % 42.0-52.0 Below low normal [facility] ( [facility]) Mean Corpuscular Volume 88.9 fl 80.0-96.0 Normal ( applies to non-numeric results) [facility] ([facility]) Red Cell Distribution Width 14.8 % 11.5-14.5 Above high normal [facility] ([facility]) Mean Corpuscular HGB Conc 33.7 g/dL 32.0-36.5 Normal (applies to non-numeric results) [facility] ([facility]) Platelet Count, Automated 234 10 150-450 Normal (applies to non-numeric results) [facility] ([facility]) Neutrophils % 52.8 % 36.0-66.0 Normal (applies to non-numeric re sults) [facility] ([facility]) Lymph % 34.1 % 24.0-44.0 Normal (applies to non-numeric resul ts) [facility]) Noble % 8.0 % 2.0-8.0 Normal (applies to non-numeric resul ts) [facility]) Eos % 3.3 % 0.0-3.0 Above high normal [facility] ([facility]) Baso % 1.0 % 0.0-1.0 Normal (applies to non-numeric resul ts) [facility] ([facility], ) Nucleated Red Blood Cell % 0.0 % 0-0 Normal (applies to n on-numeric results) [facility] ([facility]) Immature Granulocyte % 0.8 % 0-3.0 Normal (applies to non-n umeric results) [facility] ([facility]) Lymph # 2.1 10 1.5-5.0 Normal (applies to non-numeric resul ts) [facility]) Neutrophils # 3.3 10 1.5-8.5 Normal (applies to non-numeric re sults) [facility] ([facility]) Noble # 0.5 10 0.0-0.8 Normal (applies to non-numeric resul ts) [facility] ([facility]) Baso # 0.1 10 0.0-0.2 Normal (applies to non-numeric resul ts) [facility] ([facility]) Eos # 0.2 10 0.0-0.5 Normal (applies to non-numeric resul ts) [facility] ([facility]) ID Date Data Source [id number] 09/06/2020 03:50:00 PM EST [facility] Name Value Range Interpretation Code Description Data Renetta rce(s) Supporting Document(s) Inr 1.02 Normal (applies to non-numeric resul ts) [facility] ([facility]) THERAPUTIC HUMAN INR VALUES INDICATIONS NORMAL RANGES PROPHYLAXIS/TREATMENT OF: VENOUS THROMBOSIS 2.0-3.0 PULMONARY EMBOLISM 2.0-3.0 PREVENTION OF SYSTEMIC EMBOLISM FROM: TISSUE HEART VALVES 2.0-3.0 ACUTE MYOCARDIAL INFARCTION 2.0-3.0 VALVULAR HEART DISEASE 2.0-3.0 ATRIAL FIBRILLATION 2.0-3.0 MECHANICAL VALVES(HIGH RISK) 2.5-3.5 RECURRENT MYOCARDIAL INFARCTION 2.5-3.5 Prothrombin Time 13.6 s 12.5-14.3 Normal (applies to non-numeric results) [facility] ID Date Data Source [id number] 09/06/2020 03:50:00 PM EST [facility] ([facility]) Name Value Range Interpretation Code Description Data Renetta rce(s) Supporting Document(s) Alt/SGPT 67 U/L 12-78 Normal (applies to non-numeric resul ts) [facility] ([facility], ) Ast/Sgot 16 U/L 7-37 Normal (applies to non-numeric resul ts) [facility] ([facility]) Alkaline Phosphatase 114 U/L 45-117 Normal (applies to non-num sagar results) [facility] ([facility]) Bilirubin,Total 0.7 mg/dL 0.2-1.0 Normal (applies to non-numeric results) [facility] ([facility]) Bilirubin,Direct 0.2 mg/dL 0.0-0.2 Normal (applies to non-numeric results) [facility] ([facility]) Total Protein 6.9 GM/DL 6.4-8.2 Normal (applies to non-numeric re sults) [facility] ([facility]) Albumin/Globulin Ratio 1.3 Normal (applies to non-n umeric results) [facility] ([facility]) Albumin 3.9 GM/DL 3.2-5.2 Normal (applies to non-numeric resul ts) [facility] ([facility]) ID Date Data Source [id number] 09/06/2020 03:50:00 PM EST [facility] ([facility]) Name Value Range Interpretation Code Description Data Renetta rce(s) Supporting Document(s) Hepatitis C Virus Lelo Index Laboratory test result Normal (applies to non- numeric results) [facility] ([facility]) Hepatitis B Core Antibody Igm Laboratory test result Normal (applies to non- numeric results) [facility] ([facility]) Hepatitis B Surface Antigen Laboratory test result Normal (applies to non- numeric results) [facility] ([facility]) Hepatitis A Antibody Igm Laboratory test result Normal (applies to non-numeric results) [facility] ([facility]) ID Date Data Source [id number] 09/01/2020 03:21:06 PM EST [facility] Name Value Range Interpretation Code Description Data Renetta rce(s) Supporting Document(s) Progress Note [facility] LJGGJe0dGrSULmUi13/ISWcvMOZbn4OlDOtzXKs2CTlyTZBkX0MrQSH7gQ8bJOC7QKbPFjSmOmQnQkA9 lbm [file] AgICAgICAgICAgICAgICAgICAgICAgICAgICAgICAgICAgICAgICAgICAgICAgICAgICAgICAgICAgIC AgICAgICAgICAgICANCiAgICAgICAgICAgICAgICAgICAgICAgICAgICAgICAgICAgICAgICAgICAgIC AgICAgICAgICAgICAgICAgICAgICAgICAgICAgICAg ICAgICAgICAgICAgICAgICAgICAgICANCiAgICAgICAgICAgICAgICAgICAgICAgICAgICAgICAgICAg ICAgICAgICAgICAgICAgICAgICAgICAgICAgICAgICAgICAgICAgICAgICAgICAgICAgICAgICAgICAg ICAgICANCiAgICAgICAgICAgICAgICAgICAgICAgIC AgICAgICAgICAgICAgICAgICAgICAgICAgICAgICAgICAgICAgICAgICAgICAgICAgICAgICAgICAgIC AgICAgICAgICAgICAgICANCiAgICAgICAgICAgICAgICAgICAgICAgICAgICAgICAgICAgICAgICAgIC AgICAgICAgICAgICAgICAgICAgICAgICAgICAgICAg ICAgICAgICAgICAgICAgICAgICAgICAgICANCiAgICAgICAgICAgICAgICAgICAgICAgICAgICAgICAg ICAgICAgICAgICAgICAgICAgICAgICAgICAgICAgICAgICAgICAgICAgICAgICAgICAgICAgICAgICAg ICAgICAgICANCiAgICAgICAgICAgICAgICAgICAgIC AgICAgICAgICAgICAgICAgICAgICAgICAgICAgICAgICAgICAgICAgICAgICAgICAgICAgICAgICAgIC AgICAgICAgICAgICAgICAgICANCiAgICAgICAgICAgICAgICAgICAgICAgICAgICAgICAgICAgICAgIC AgICAgICAgICAgICAgICAgICAgICAgICAgICAgICAg ICAgICAgICAgICAgICAgICAgICAgICAgICAgICANCiAgICAgICAgICAgICAgICAgICAgICAgICAgICAg ICAgICAgICAgICAgICAgICAgICAgICAgICAgICAgICAgICAgICAgICAgICAgICAgICAgICAgICAgICAg ICAgICAgICAgICANCiAgICAgICAgICAgICAgICAgIC AgICAgICAgICAgICAgICAgICAgICAgICAgICAgICAgICAgICAgICAgICAgICAgICAgICAgICAgICAgIC AgICAgICAgICAgICAgICAgICAgICANCjw/vJTmZ3sbrEXecqL7S7ogLr2DFz7BWP7hd2FkXGVfACiawo PoVhvIMpLkXEHsBmuYXlb4LMjrCJ9VxPGyN0JaT9Tu KUcyQV5FZVHxUHVuvCMvOPMpAKPvSjG3XIHdOSejCD8VzEOzMCvnZNRwMTJaNgYeNIQxVFGcPSKsEPFz YTILSKHrIFPjPhAxLGNqSYUqSBswYRAEBK3CQsXjQ1EhwC91YEbACf4+BPqyaeIuAgvBIzUhOZNkx9Ju NPe7JI3QWHOuPqxxo7QnFiEgSQTFDSttSB1PUSW9VS UfGJQxRf1FNLFxX554wjPcKS1OBl9MSwJyRX3qni6PUnDtWBGvMexGPcu7JIkwZM1SoTDiKJpQub6hen VlllAEr0FuhkXmfKXCVP9tTVneXKOETIllitQfssn9w87eWITSHIX7NZQpBqRaXiLkVAEsGpd0FNINPR aWFuLgH7Ifl5MrEjD3UEUoJeBtSTzxYFNhKmP1IW27 hVxiYF5TYAVvIFRsGX65KACgUFTkDl9YVn1OOqSqEN8mpg5JHmFqBSXrLlsMCce1YHtlVQ0YkZIpB5Dh qSOih0xWVoDyA0BIOSH7MROxTc2PVMFrJdAcELUiDWpnJK3hCPOiGNSJaPcoucY7ZA9LCC3ybfUbEM6X WaQdWq5aZl2IWoWvA4UpU8JeSCAxHFSLPKlsIZ2BUA eoHW5bNT5Pj7ALrCRjxV9kgb6SDXGyRJHwCkqwic1OChewT0Z2lWhcFJNnMrKwOGASKUqePS6FSRHlYG Y8SIFpAWWuSPFZCdMgA15cIP4LX6Uzl64sPjT7QWZfKvTnGFljEV13rRtjvjDbxSOdzWsmEY7IAw4+DQ plbmRvYmoNCnhyZWYNCjAgMzQNCjAwMDAwMDAwMDAg XxE1JgCaBz7KZCInKLBjZKIeSbAqRRMlMHHoCLvuJRCpBDLfUHK1DEJuTVRyML6AKeIwBDQrGHF6YGsq XRUmPTLrmp8EQDBxXIZtWIT7TiTpPXJxMNRuYHrhKBBwVJF1MBHqCMOwCLYaHM9QZpSsIPBlLXWxZfUx XOEhZJMacy4UELJmCRFuYJmmIxCeKMKaTSOrRMqoER SiJVC6ZQSiYAIlWWVnGE6KKrDkXNZmTFC1NsRsNROgVQYpsv6MCFZwTDDfEtd4UPKfHVWdWYPfUFmyQB QvGNX8HMLfLAFdCVYkLQ5RUdGgCDUxTLQ7GRBdHDXsSAPpfp4UBOAzLKZkEbkrJcRuIVIaNPBiFDsnLB GlUOZ8CKErBOYtEQTyGR9XEuYeUFPfZpN4XTZzXGPu VORysl2PVUMwMFCgEDbgRJHwOFTfKIVfYLmzIYYrBJQ1YncjEMXyLUZbIV0DKkLaJXOlVtJ0VQemYZVo PZGtkv3BLFRjYQSvUPa6UTYnZSMrKJSbXTwuUNFsEUX0VMU9ZFQiVWYdXQ1XWwZwAYLjKrPvYdorRLGi OWJiqf9OEJViXYHoGyQ2StWfLZFwFKGjWXopYAAdHH Q3IOv4LKDiDWLpDC3QJmNhGMNkQfb3XLfgJICxPWEulf9NQTElWGGfTAWmGyYkDIKxZSGjPAhhBYGyZW Y7WADhRYHaXXLpCO5HLwVzTRMtOtl8VLWmESCsUANgnu7NDWQoWLMvRLlqRMEkHZItTAGhOBfeNHHkNN MfVJD6ZBFmEOXeRK1JQeQoMRLeEVN7FJjdSFDtNWKq md1LIGJcDWM7XWhxTeHvZMBgLDTyXReuTMAwUTReXNn6WXBjEZZaVN4JWnNbSKMnQBEaCIFxQSQqSLEe tx7IbGKmwBfift6EJQvGUi7KyTbeEAY2AFivBk3dsUMjEkEqMMAUFi3IfxLnHTGhXRLLVJimPCGoSEUn FLW7ArBoOKJiLKY2MWX4BqR5TFYlNWd1TVYzGGWxCv I2QhV7OGIfRDJ1CiEyNqraFAqcRHZqCWC8RbCvTEK2VOW+PV8nYUv+Fb6Ft2IgnaQ5yqTuZQl9UkT0Wd 1ZZDMMF6MFQz== ID Date Data Source [id number] 09/01/2020 03:21:01 PM [facility] Name Value Range Interpretation Code Description Data Renetta rce(s) Supporting Document(s) Progress Note [facility] CUAQAf1yYhYBXcZf22/BCXyuNLNni9XcUXbgHPi0NYsaCECdV9SkJYL1hF9hHXN2JBwKKvTjWvTpYjD0 lbm [file] AgICAgICAgICAgICAgICAgICAgICAgICAgICAgICAgICAgICAgICAgICAgICAgICAgICAgICAgICAgIA 0KICAgICAgICAgICAgICAgICAgICAgICAgICAgICAg ICAgICAgICAgICAgICAgICAgICAgICAgICAgICAgICAgICAgICAgICAgICAgICAgICAgICAgICAgICAg KEEtQMFzJLGoWD8NYSUpTCDaBTBeLXZcFRKnEECeEXMmHJGmTRBgRZGmLJYvKKTxRENtITDbYAYxOOVw ICAgICAgICAgICAgICAgICAgICAgICAgICAgICAgIC VqZROzEWUnFDStHGCiXFOtMPWjBO3BGBXhAJWaQSZmKCMlXZDwUXLrSOLjBMRdSUYyWJNfKDWlPAPwID AgICAgICAgICAgICAgICAgICAgICAgICAgICAgICAgICAgICAgICAgICAgICAgICAgICAgICAgICAgIC HfWR0SMHZhETXlDYEzBZWuRCEgDCEdQLKaLTNjRYPk ICAgICAgICAgICAgICAgICAgICAgICAgICAgICAgICAgICAgICAgICAgICAgICAgICAgICAgICAgICAg KWFcPDDdYTUiYOEsOL6HXNRvDZWxRDOuZCXcEWFxMCQxXGDdAZDkDFBlHZAkGETlEMPkLPWlNHDeLGXk ICAgICAgICAgICAgICAgICAgICAgICAgICAgICAgIC DbZUHyGQKmOTYwXLQzXVXcVDQvOIWqHR0GNLYuPBChFCRuXLUsURBlBBTsODFpWEPnADAiNAMwMICmHP AgICAgICAgICAgICAgICAgICAgICAgICAgICAgICAgICAgICAgICAgICAgICAgICAgICAgICAgICAgIC YjEIHtUK9GOWCxJYKyJUUoHFXwWPTvIGYyYDAeKPPk ICAgICAgICAgICAgICAgICAgICAgICAgICAgICAgICAgICAgICAgICAgICAgICAgICAgICAgICAgICAg WNLyUUDzRWTmJVGgRACrZD5RUGDrAJMtDPGkTNUeUOZdZLDuUNFoAKLrIFFdMSFrQOMuSBPjSDCgIEEm ICAgICAgICAgICAgICAgICAgICAgICAgICAgICAgIC BtERNvSEHmBUBgRLFhIZDgRXEtSAHqBCOrMA7QIJEfIVEhKEIlOPTyTAXjGWCgEMZtCVAiNJAjIXDsZY AgICAgICAgICAgICAgICAgICAgICAgICAgICAgICAgICAgICAgICAgICAgICAgICAgICAgICAgICAgIC RzAFOmNDCnYN3JUV69iLJyb6M6UUFqEV8vfpl/Pg0K YIekgmRmhPDeCV3OQnCeEI1awh0EUrEmZX0rpz5ODJyAPhRiS2H5bRIuVGSzCEXWRoDuP27lEAbvJw63 NYooYMRrVzTwACq9Iq6UCkJlG9qzSIHpCgM4JNTsEkOuRFgaDN5Zl6VctJXaORh+Gp0NVO6me8BrDRer MeOfGJ0qqs1PKVnOQjFlA6IpvtS2NMZfMWDtRm4COM CuUKJibKYdVkMsPBIRVwEzB6EokV92BNMSQp7+QPuoplCeBciJCuOvSNCth3GkZOs1FK4JRKSqQUh4gA AfVFCpM9Mfw5MeYx77NIFcGieqMZjnUBOLEXx6wzX8IJNXLM2sGTXnAf3vJp8bEMCtBBAgFoSlFQGDHW 2QDOEmPOAxoITpSPQgSXHIRD4NRHuzSLU9LPNtebPn uROyXKzbEM7AOOQzfiCeHdCjGXQSPJt+Gj4ECI4fb9TsPQbgILNkPP2vyi1GTWrXPfYsM9B9mYTdP1P8 XTlxKq5WTOHhIDQhAhZnDRRDOBwtGI3SSH3bblU3QA9GhKVvPWZwRRKdaPDwCFv0A25qsZCsLHcsTE4A ICA+Cristina+Ow0DXTObFQSfIFAmKyTuWIWLNhIeO8FxM8 KJf5WaZ0DiBL12iDdzphBoXPdgEU5FFF7qKXAsPJSXPJ2PmYMceI4qgvToRsUdAWRXSbTwK36geXLgSR TyKRNmAUOwXg3HMOSqT7RnmeBnrUxxkdDgJFIfUJTJDR2MENoqkdYrlICnmEzpUC76lOweCV7TLd8ODz DuJC0vff5CoFCjAq5OTGSsLF4HJPDwMZPfOYHpPFO8 QQLwDxBxCTmxFGQfVPCkOPL2SBBhZECnIR1OPyNiEJQyWEj2MAbqVQCmFTTdoi2LRUPnCPXlHCJsBfVe DVBxXPKiZCapVTKrVCEsQLS9TSNpBXXqJE1OEoEeYSTxBYHiJWioEXGpVCJgyz7AENXiNRFeYuVaGwWi NPLjZHQmHGcgMVAnKNNpDcfkEHXfSBGbPO6AWyAzEQ ZnYBD7GkizFGTxFVZrik6YKJYkSMZxPiM0XeXuYYZzTYHvXEmcZPHxMLY0GqZ1DBHeFAVjIG3KRpXbJM BwZBR7BNvqCXWrQRJyfj5GUTGkGHEbJOMaDYKuVKWiCNWoZMahHSPbTQG0YlO4ATXcPNUrNB7SNaHlHD GsAMC6RdNxZIFpMJToax7IRKJlANVpLnj1YIWmDBFn TXZqZLmjNZHeHOR9KWK4EZJnGAEeRY7SFwMeXSTaVIumMoTuFOBpQEBrpu6RSBMiPRSnMEYvWCDrBQWa GVJkSLelMAVpHSG4Dor4HEWoXAGhMD6VEsOlLBQcYYm3MpHaBZKxTKLbta9MYKPuOEFtOKa6FdPqBSYa UFQiSKsqGFKmLZIxTLJoHBZaWMXeZX4YXjFgCZOyQp W8QPFxDLEhIECjej0CCBOoRTHwSNAiMKJkCMJwOGHmZCo4osZphWTyFTe8OD9YT5BxylAkLjTRUg9Xv7 03MMQ2UMBsKp3OJ0ncRr8eVEEdRUBYWc8WDOt5LwMyERShDYNeTgE3TRu4HSWpA2QeGXCaTVWbWtSlEG E+BXc8VGU8MJEnNBQeEWvzTvYwUTYoJBWjYIGcD7V4 MFIlNO7wZSIAFj5+CUzjfZNafDkeSDUCOeOoXGymBSjtLBAILb9K ID Date Data Source [id number] 07/13/2020 01:35:00 PM EST [facility] Name Value Range Interpretation Code Description Data Renetta rce(s) Supporting Document(s) Respiratory pathogens identified [Type] in Nasopharynx by Probe and target amplification method SARS-CoV-2 (COVID 19) [facility] This lab was ordered by [facility] a nd reported by [facility]. ID Date Data Source [id number] 07/04/2020 12:00:00 AM EST [facility] Name Value Range Interpretation Code Description Data Renetta rce(s) Supporting Document(s) Carestart Rapid COVID Antigen Test [facility] This lab was reported by [facility]. ID Date Data Source [id number] 06/04/2020 03:54:00 PM EST [facility] Name Value Range Interpretation Code Description Data Renetta rce(s) Supporting Document(s) SARS-CoV-2 (COVID 19) [facility] This lab was ordered by [facility] a nd reported by [facility]. ID Date Data Source CBC with Differential 05/24/2020 12:00:00 AM EST eCW1 ([facility]) Name Value Range Interpretation Code Description Data Renetta rce(s) Supporting Document(s) 5.3 4.0-10.0 WHITE BLOOD COUNT eCW1 ([facility]) 4.70 4.30-6.10 RED BLOOD COUNT eCW1 ([facility]) 14.2 13.5-17.5 HEMOGLOBIN eCW1 ([facility]) 33.8 32.0-36.5 MEAN CORPUSCULAR HGB CONC eCW1 ([facility]) 42.0 42.0-52.0 HEMATOCRIT eCW1 ([facility]) 30.2 27.0-33.0 MEAN CORPUSCULAR HEMOGLOB IN eCW1 ([facility]) 89.4 80.0-96.0 MEAN CORPUSCULAR VOLUME e CW1 ([facility]) 8.8 0.0-5.0 MONO % eCW1 (Formerly [facility], [facility]) 12.5 11.5-14.5 RED CELL DISTRIBUTION WID TH eCW1 ([facility]) 51.8 36.0-66.0 NEUTROPHILS % eCW1 ([facility]) 34.5 24.0-44.0 LYMPH % eCW1 ([facility], [facility]) 184 150-450 PLATELET COUNT, AUTOMATED eCW1 ([facility]) 2.8 1.5-8.5 NEUTROPHILS # eCW1 ([facility]) 0.9 0.0-1.0 BASO % eCW1 ([facility], [facility]) 0.5 0.0-0.8 MONO # eCW1 ([facility], [facility]) 3.6 0.0-3.0 EOS % eCW1 ([facility]) 1.8 1.5-5.0 LYMPH # eCW1 ([facility], [facility]) 0.1 0.0-0.2 BASO # eCW1 ([facility]) 0.2 0.0-0.5 EOS # eCW1 ([facility], [facility]) ID Date Data Source [id number] 05/24/2020 12:00:00 AM EST eCW1 ([facility]) Name Value Range Interpretation Code Description Data Renetta rce(s) Supporting Document(s) Hemoglobin A1c/Hemoglobin.total in Blood 6.7 HEMOGLOBIN A1c eCW1 ([facility]) ID Date Data Source LIPID PANEL (CARDIAC RISK) 05/24/2020 12:00:00 AM EST eCW1 ( [facility]) Name Value Range Interpretation Code Description Data Renetta rce(s) Supporting Document(s) Triglyceride [Mass/volume] in Serum or Plasma by calculation 84 <150 TRIGLYCERIDES LEVEL eCW1 ([facility]) Cholesterol in HDL [Moles/volume] in Serum or Plasma 35 >40 HDL CHOLESTEROL eCW1 ([facility]) Cholesterol [Moles/volume] in Serum or Plasma 119 <200 CHOLESTEROL LEVEL eCW1 ([facility]) 84 NON-HDL-C eCW1 ([facility], [facility]) Cholesterol in LDL [Mass/volume] in Serum or Plasma by calculation 67 <100 LDL CHOLESTEROL eC1 ([facility]) 3.400 <5 CHOLESTEROL RISK RATIO eCW1 ([facility]) ID Date Data Source FREE T4 & TSH PANEL 05/24/2020 12:00:00 AM EST eCW1 ([facility]) Name Value Range Interpretation Code Description Data Renetta rce(s) Supporting Document(s) 2.800 0.358-3.740 eCW1 ([facility]) 1.02 0.76-1.46 eCW1 ([facility]ly [facility], [facility]) ID Date Data Source Comprehensive Metabolic Profile (CMP) 05/24/2020 12:00:00 AM EST eCW1 ([facility]) Name Value Range Interpretation Code Description Data Renetta rce(s) Supporting Document(s) 109 70-100 GLUCOSE, FASTING eCW1 ([facility]) 14 7-18 BLOOD UREA NITROGEN eCW1 (formerly [facility]) > 60.0 >56 GLOMERULAR FILTRATION RATE eCW 1 ([facility]) 110 98-107 CHLORIDE LEVEL eCW1 ([facility]) 1.00 0.70-1.30 CREATININE FOR GFR eCW1 ([facility]) 4.1 3.5-5.1 POTASSIUM SERUM eCW1 ([facility]) 143 136-145 SODIUM LEVEL eCW1 ([facility]) 8.6 8.5-10.1 CALCIUM LEVEL eCW1 ([facility]) 10 7-37 AST/SGOT eCW1 (Formerly [facility], [facility]) 28 21-32 CARBON DIOXIDE LEVEL eCW1 ([facility]) 27 12-78 ALT/SGPT eCW1 ([facility], [facility]) 3.8 3.2-5.2 ALBUMIN eCW1 ([facility], [facility]) 1.4 ALBUMIN/GLOBULIN RATIO eCW1 ([facility]) 0.7 0.2-1.0 BILIRUBIN,TOTAL eCW1 ([facility]) 6.6 6.4-8.2 TOTAL PROTEIN eCW1 ([facility]) 93 45-117 ALKALINE PHOSPHATASE eCW1 ([facility]) ID Date Data Source [id number] 04/20/2020 04:48:22 PM EDT [facility] Name Value Range Interpretation Code Description Data Renetta rce(s) Supporting Document(s) Progress Note [facility] [id number]/TSBsyPQKel8CjPEtkNZi0BXomSTFrD3DxHLY3qG6mWXB6VHaNVzOdIbQwJGH8 lbm [file] ICAgICAgICAgICAgICAgICAgICAgICAgICAgICAgIC AgICAgICAgICAgICAgICAgICAgICAgICAgICAgICAgDQogICAgICAgICAgICAgICAgICAgICAgICAgIC AgICAgICAgICAgICAgICAgICAgICAgICAgICAgICAgICAgICAgICAgICAgICAgICAgICAgICAgICAgIC AgICAgICAgICAgICAgDQogICAgICAgICAgICAgICAg ICAgICAgICAgICAgICAgICAgICAgICAgICAgICAgICAgICAgICAgICAgICAgICAgICAgICAgICAgICAg ICAgICAgICAgICAgICAgICAgICAgICAgDQogICAgICAgICAgICAgICAgICAgICAgICAgICAgICAgICAg ICAgICAgICAgICAgICAgICAgICAgICAgICAgICAgIC AgICAgICAgICAgICAgICAgICAgICAgICAgICAgICAgICAgDQogICAgICAgICAgICAgICAgICAgICAgIC AgICAgICAgICAgICAgICAgICAgICAgICAgICAgICAgICAgICAgICAgICAgICAgICAgICAgICAgICAgIC AgICAgICAgICAgICAgICAgDQogICAgICAgICAgICAg ICAgICAgICAgICAgICAgICAgICAgICAgICAgICAgICAgICAgICAgICAgICAgICAgICAgICAgICAgICAg ICAgICAgICAgICAgICAgICAgICAgICAgICAgDQogICAgICAgICAgICAgICAgICAgICAgICAgICAgICAg ICAgICAgICAgICAgICAgICAgICAgICAgICAgICAgIC AgICAgICAgICAgICAgICAgICAgICAgICAgICAgICAgICAgICAgDQogICAgICAgICAgICAgICAgICAgIC AgICAgICAgICAgICAgICAgICAgICAgICAgICAgICAgICAgICAgICAgICAgICAgICAgICAgICAgICAgIC AgICAgICAgICAgICAgICAgICAgDQogICAgICAgICAg ICAgICAgICAgICAgICAgICAgICAgICAgICAgICAgICAgICAgICAgICAgICAgICAgICAgICAgICAgICAg ICAgICAgICAgICAgICAgICAgICAgICAgICAgICAgDQogICAgICAgICAgICAgICAgICAgICAgICAgICAg ICAgICAgICAgICAgICAgICAgICAgICAgICAgICAgIC ZyKGAgYQZgEUNdNRBfEWYwLPJyCYIgTUDmYAEtYETzIQTpSAFxJNGrUQy1Y7bjWIGnPUPlMJ9cABz2Jr 8+PRdJEhHrBRK6eiQqwE1SNC9cn7QsMCgoSEAzc7KnJUt7DH4BSYZqJAzcTU0RZGherk4CXCEbPLFxpR XTt0qyMrUgLZK7OQGmDldpKJ8CPFBpJ4zsvhCdLIUu TTTQHIthKCBZIPyrBTRZPTHuZLLuHyWiJxMcWLDuDUCdZMICCVI3EZTzMeDuOOInHDYeMtSsRZSFYK2B XvEzM1HrcN82WIuPKr3+NMtzklWpQgoHYtX3ZPKut2UlLZa3ZG0OMRMxFxfsj1UjXbwcMYHNJOoiNF9P ZBQ4JQC0NWChEy4PPONjB760ayGqRI8BYd5WYwYzJG 0ufo5JKrvkISNiTjsJYle5YNqaXF1XoKHwBGgIkk6okuIfijBMa3VxzgMlkVGHTA4pLSdhBGBNGMQ1qz pbqZajGLVfGMJjBAYoECMkEcPqNYCjFQdlGOWIHCuCAwQsR1Bsp4PaTsX5SVWwMrVmXEfiEYZeTkV5KW 16lRqkOK7SCQQuGXTvOT49PHU3ZSBcAj2JAo1WCgAa GL1uuk7MDOFnSNDfEtoCQzx3ZVuoLC8AdIPuR2FwmGKxs1nINuKiL2CPHDP1JDTfNm1YPZBiWdOwRRHd ZSzgEM8cDRRsATTQuMomqmJ5LQ3IZC7pujRiKQ9FIdUyLr1cTh9ZFuDnW6XcT9BcAFJcWANEMVlnXY5F PAdkXT8eVJ1Qf1HGhZJuqB4gtk5YSBSrYYFmEcqxyu 0GOhjaD4C2cDcbAMEmNygiCKGJLUmtKB2DWNTrXPL0KRTlGeXmKGPJQgLeF99qZO2OS1Xln33iMeY8SB XcWzEaMLegOA80hYlgkqGwsIBuzZksPL8BAs9+DQplbmRvYmoNCnhyZWYNCjAgNDENCjAwMDAwMDAwMD KxBzR1McNsRe1PYMDeIYJxKCClQrTuFWGuGORbMAlq LJNuJLC6UEhaDZZnUWJcCX0ESuUuNNDaHZw8BNlnCDIqEIXonz2ELHRxSNGsPKZ6VtBrVPWhRWYnZZqz XIQzLTS3FKt0OQSfQVAwWM0BUhRmGKMnNPU0HItnYBSvQJIrxq3UPUZcMAHiWRT3BcWsMNJiFWMoSJfl CJFtHBO3ZFsrZSUxVNPmBA0FLnXuMAObXSRzTUSkEP WaZOWmaj3OZTJvSNSoPED1SPLnMZTgMNLtHRusCXSpYXA1FEW9EURrCYZhUK4ILnPyTYCkDCS9MeZpGF NwSKVvwt1ACNGoCHOoCUTpJrYsIMUrZFUfGNkmBRPnYLF8WlVtMNHuPWVzSM4UBzDgBFGfVpI1IjgsOT HaLKFmbo2JJEXaHVJzHRZ9KJYnOXEoTTKrDQqkCRAo JRZnVGIuNJDnCEBwZN9BTkLzOSJtXoPmKYOtCZLzVGAbgq5GEOPiLXJcVandLQVuFTKjMHPePJtwRHYb SIS5IWK9RMIuOPGoCR4HEbBeODWqPts4ZXRiPNQyMRMxqd5KBYCdPKWwOEZ9HFJrTQLaKDYpHQhmMGDo LJHiZnJsXJNtQCKjPR6PPpKvCTQxXxG6QBxkUSGwKW Zwpl0FSJJjUKYqKFInPQWuMNZiJSYnYSciTQEkBUNaJKkfKXKfQRXhSD0OZoLlUXIlCdJeKHAiPPXaBO Wrlw5PXNBfOWWaDyC0YJQcCGSyXZFkJCcvDEKjCWOuNMRnMYLaSCDaHJ5SXhDvYJDrSSErBgEeNITdTT Vtsx6IHGHuJLA1AJT6KMUcCKYiSZGaPUckIRXnSHM8 AVd4ACKmESUbFF6DAhWvZOOyEFY3ODAiQYMgNMBogk8YTPQdVPU2RWH6HEOtSDVaIROqITjxJQGvPLO3 DZkxTIBqIFOxSL3ANePbPEVyNZYzXRAiKGOzFPWveb8PHXUdDKM1TqD6LaWsIPLjDFZzVQwaUJGmCWN3 GYO1FABhXKWwQM3PGbStRSWbOErlSnPiPEQcBAEtmi 8TUDNpBIS5SJQ6MiMkCOOpUPRpDAn9ljDpzYDiTHk9WT1UQ8DpmiXeKQZRAm8Fl123NBQtRZXtCw7CS1 paKl3sKKFbPDUSZq5KJCo4GSPvJHcyZXWzFLN7MmE9HuV9AEVsNKa8FMQ5IiLhOQM+AFdhRUH4THC2OE AyDfEeYhusPBriEzV1HOcmTFe2SrQ3Wg5jRRLHMx4+XEclsUMqwYjwUOAFRaK4JJM3RZheVKNZHo6N ID Date Data Source [id number] 04/20/2020 12:13:55 PM EDT [facility] Name Value Range Interpretation Code Description Data Renetta rce(s) Supporting Document(s) Hemoglobin A1c/Hemoglobin.total in Blood 8.5 % 4.0-6.0 H [facility] Glucose mean value [Mass/volume] in Blood Estimated fr om glycated hemoglobin 197 mg/dL <126 H [facility] ID Date Data Source [id number] 04/20/2020 12:09:45 PM EDT [facility] Name Value Range Interpretation Code Description Data Renetta rce(s) Supporting Document(s) Glucose [Mass/volume] in Capillary blood by Glucometer 303 mg/dL 70- 140 H [facility] ID Date Data Source [id number] 04/20/2020 11:24:00 AM EDT [facility] ([facility]) Name Value Range Interpretation Code Description Data Renetta rce(s) Supporting Document(s) Hemoglobin A1c/Hemoglobin.total in Blood 8.5 [facility] ([facility]) Procedure Social History Code Duration Value Status Description Data Source(s ) Smoking 03/06/2021 12:00:00 AM EDT Never Smoker completed Never S moker eCW1 ([facility]) Smoking 02/14/2021 12:00:00 AM EDT Never Smoker completed Never S moker eCW1 ([facility]) Smoking 02/14/2021 12:00:00 AM EDT Never Smoker completed Never S moker eCW1 ([facility]) Smoking 01/23/2021 12:00:00 AM EDT Never Smoked Cigarettes com pleted Never Smoked Cigarettes [facility] ([facility] ) Smoking 11/16/2020 12:00:00 AM EDT Patient has never smoked co mpleted Patient has never smoked [facility] ([facility]) Alcohol intake 11/01/2020 12:00:00 AM EDT Current drinker of al cohol (finding) completed Current drinker of alcohol (finding) [facility] Tobacco use and exposure 11/01/2020 12:00:00 AM EDT Current user co mpleted Current user [facility] Smoking 11/01/2020 12:00:00 AM EDT Never smoker completed Never s [facility] Smoking 09/20/2020 12:00:00 AM EDT Never Smoker completed Never S moker eCW1 ([facility]) Smoking 09/20/2020 12:00:00 AM EDT Never Smoker completed Never S moker eCW1 ([facility]) Smoking 09/20/2020 12:00:00 AM EDT Never Smoker completed Never S moker eCW1 ([facility]) Smoking 09/20/2020 12:00:00 AM EDT Never Smoker completed Never S moker eCW1 ([facility]) Smoking 09/20/2020 12:00:00 AM EDT Patient has never smoked co mpleted Patient has never smoked [facility] ([facility]) Smoking 09/20/2020 12:00:00 AM EDT Never Smoker completed Never S moker eCW1 ([facility]) Alcohol intake 09/01/2020 12:00:00 AM EST Current drinker of al cohol (finding) completed Current drinker of alcohol (finding) [facility] Smoking 08/23/2020 12:00:00 AM EST Never Smoker completed Never S moker eCW1 ([facility]) Smoking 08/23/2020 12:00:00 AM EST Never Smoker completed Never S moker eCW1 ([facility]) Smoking 08/23/2020 12:00:00 AM EST Never Smoker completed Never S moker eCW1 ([facility]) Smoking 07/31/2020 12:00:00 AM EST Never Smoker completed Never S moker eCW1 ([facility]) Smoking 07/31/2020 12:00:00 AM EST Never Smoker completed Never S moker eCW1 ([facility]) Smoking 07/31/2020 12:00:00 AM EST Never Smoker completed Never S moker eCW1 ([facility]) Smoking 06/15/2020 12:00:00 AM EST Never Smoker completed Never S moker eCW1 ([facility]) Smoking 06/15/2020 12:00:00 AM EST Never Smoker completed Never S moker eCW1 ([facility]) Smoking 06/15/2020 12:00:00 AM EST Never Smoker completed Never S moker eCW1 ([facility]) Smoking 06/15/2020 12:00:00 AM EST Never Smoker completed Never S moker eCW1 ([facility]) Smoking 06/15/2020 12:00:00 AM EST Never Smoker completed Never S moker eCW1 ([facility]) Smoking 06/15/2020 12:00:00 AM EST Never Smoker completed Never S moker eCW1 ([facility]) Smoking 06/15/2020 12:00:00 AM EST Never Smoker completed Never S moker eCW1 ([facility]) Smoking 06/15/2020 12:00:00 AM EST Never Smoker completed Never S moker eCW1 ([facility]) Smoking 06/15/2020 12:00:00 AM EST Never Smoker completed Never S moker eCW1 ([facility]) Smoking 06/15/2020 12:00:00 AM EST Never Smoker completed Never S moker eCW1 ([facility]) Smoking 06/15/2020 12:00:00 AM EST Never Smoker completed Never S moker eCW1 ([facility]) Smoking 06/15/2020 12:00:00 AM EST Never Smoker completed Never S moker eCW1 ([facility]) Smoking 06/15/2020 12:00:00 AM EST Never Smoker completed Never S moker eCW1 ([facility]) Smoking 06/15/2020 12:00:00 AM EST Never Smoker completed Never S moker eCW1 ([facility]) Smoking 05/24/2020 12:00:00 AM EST Never Smoker completed Never S moker eCW1 ([facility]) Smoking 05/24/2020 12:00:00 AM EST Never Smoker completed Never S moker eCW1 ([facility]) Smoking 05/24/2020 12:00:00 AM EST Never Smoker completed Never S moker eCW1 ([facility]) Smoking 05/24/2020 12:00:00 AM EST Never Smoker completed Never S moker eCW1 ([facility]) Vital Signs ID Date Data Source UNK Name Value Range Interpretation Code Description Data Source(s) Body weight 255.12 [lb_av] 255.12 [lb_av] eCW1 ([facility]) Body weight 115.72 kg 115.72 kg eCW1 ([facility]) Body mass index (BMI) [Ratio] 35.58 kg/m2 35.58 kg/m2 eCW1 ([facility]) Heart rate 78 /min 78 /min eCW1 ([facility]) Respiratory rate 18 /min 18 /min eCW1 ([facility]) Body temperature 98.3 [degF] 98.3 [degF] eCW1 ( [facility]) Systolic blood pressure 140 mm[Hg] 140 mm[Hg] e CW1 ([facility]) Diastolic blood pressure 90 mm[Hg] 90 mm[Hg] eCW1 ([facility]) Body height 71 [in_i] 71 [in_i] eCW1 ([facility]) Body weight 257 [lb_av] 257 [lb_av] eCW1 ([facility]) Body weight 116.57 kg 116.57 kg eCW1 ([facility]) Body height 71 [in_i] 71 [in_i] eCW1 ([facility]) Body mass index (BMI) [Ratio] 35.84 kg/m2 35.84 kg/m2 eCW1 ([facility]) Heart rate 81 /min 81 /min eCW1 ([facility]) Respiratory rate 18 /min 18 /min eCW1 ([facility]) Body temperature 97.4 [degF] 97.4 [degF] eCW1 ( [facility]) Systolic blood pressure 150 mm[Hg] 150 mm[Hg] e CW1 ([facility]) Diastolic blood pressure 84 mm[Hg] 84 mm[Hg] eCW1 ([facility]) Oxygen saturation in Arterial blood by Pulse oximetry 96 % 96 % MEDENT ([facility] ) Systolic blood pressure 124 mm[Hg] 124 mm[Hg] M EDENT ([facility], ) Heart rate 78 /min 78 /min [facility] ([facility] ) Diastolic blood pressure 78 mm[Hg] 78 mm[Hg] [facility] ([facility] ) Body temperature 98.0 [degF] 98.0 [degF] [facility] ([facility], ) 97.3 Body weight 117.482 kg 117.482 kg MEDENT ([facility]) Body weight 259.00 [lb_av] 259.00 [lb_av] MEDEN T ([facility]) Body height 70 [in_i] 70 [in_i] MEDENT ([facility]) 5'10" Body surface area Derived from formula 2.33 m2 2.33 m2 [facility] ([facility]) Body mass index (BMI) [Ratio] 37.2 kg/m2 37.2 k g/m2 [facility] ([facility]) [place] body weight 166 [lb_av] 166 [lb_av] MEDEN T ([facility]) Body height 70 [in_i] 70 [in_i] [facility] ([facility]) 5'10" Oxygen saturation in Arterial blood by Pulse oximetry 96 % 96 % [facility] ([facility]) Heart rate 69 /min 69 /min [facility] ([facility]) [place] body weight 166 [lb_av] 166 [lb_av] MEDEN T ([facility]) Body mass index (BMI) [Ratio] 37.0 kg/m2 37.0 k g/m2 [facility] ([facility]) Body weight 258.00 [lb_av] 258.00 [lb_av] MEDEN T ([facility]) Body weight 117.029 kg 117.029 kg [facility] ([facility]) Body surface area Derived from formula 2.33 m2 2.33 m2 [facility] ([facility]) Oxygen saturation in Arterial blood by Pulse oximetry 96 % 96 % [facility] ([facility]) Body height 70 [in_i] 70 [in_i] [facility] ([facility]) 5'10" Body weight 258.00 [lb_av] 258.00 [lb_av] MEDEN T ([facility]) Body mass index (BMI) [Ratio] 37.0 kg/m2 37.0 k g/m2 [facility] ([facility]) [place] body weight 166 [lb_av] 166 [lb_av] MED[facility] T ([facility]) Body weight 117.029 kg 117.029 kg [facility] ([facility]) Body surface area Derived from formula 2.33 m2 2.33 m2 [facility] ([facility]) Systolic blood pressure 170 mm[Hg] 170 mm[Hg] [facility] ([facility]) Diastolic blood pressure 80 mm[Hg] 80 mm[Hg] [facility] ([facility]) Body height 70 [in_i] 70 [in_i] [facility] ([facility]) 5'10" Body weight 114.307 kg 114.307 kg [facility] ([facility]) Body surface area Derived from formula 2.30 m2 2.30 m2 [facility] ([facility]) Body weight 252.00 [lb_av] 252.00 [lb_av] [facility] T ([facility]) Body mass index (BMI) [Ratio] 36.2 kg/m2 36.2 k g/m2 [facility] ([facility]) [place] body weight 166 [lb_av] 166 [lb_av] MED[facility] T ([facility]) Systolic blood pressure 174 mm[Hg] 174 mm[Hg] [facility] ([facility]) Diastolic blood pressure 86 mm[Hg] 86 mm[Hg] [facility] ([facility]) Diastolic blood pressure--sitting 80 mm[Hg] 80 mm[Hg] [facility] ([facility]) Ra, large cuff Body height 71 [in_i] 71 [in_i] [facility] ([facility] 5'11" Body mass index (BMI) [Ratio] 34.6 kg/m2 34.6 k g/m2 [facility] ([facility]) Heart rate 91 /min 91 /min [facility] ([facility]) Systolic blood pressure--sitting 148 mm[Hg] 148 mm[Hg] [facility] ([facility]) Ra, large cuff Body weight 248.00 [lb_av] 248.00 [lb_av] MEDEN T ([facility]) Body height 71 [in_i] 71 [in_i] [facility] ([facility] 5'11" Body mass index (BMI) [Ratio] 34.4 kg/m2 34.4 k g/m2 [facility] ([facility]) Systolic blood pressure--sitting 144 mm[Hg] 144 mm[Hg] [facility] ([facility]) Ra, large cuff Diastolic blood pressure--sitting 82 mm[Hg] 82 mm[Hg] [facility] ([facility]) Ra, large cuff Body weight 247.00 [lb_av] 247.00 [lb_av] MEDEN T ([facility]) Body temperature 97.5 [degF] 97.5 [degF] [facility] ([facility] Body height 69.5 [in_i] 69.5 [in_i] [facility] ([facility]) 5'9.50" Body weight 246.50 [lb_av] 246.50 [lb_av] MEDEN T ([facility]) Body mass index (BMI) [Ratio] 35.9 kg/m2 35.9 k g/m2 [facility] ([facility] ) Systolic blood pressure 155 mm[Hg] 155 mm[Hg] e CW1 ([facility]) Body weight 247 [lb_av] 247 [lb_av] eCW1 ([facility]) Body height 71 [in_i] 71 [in_i] eCW1 ([facility]) Body mass index (BMI) [Ratio] 34.45 kg/m2 34.45 kg/m2 eCW1 ([facility]) Heart rate 78 /min 78 /min eCW1 ([facility]) Diastolic blood pressure 73 mm[Hg] 73 mm[Hg] eCW1 ([facility]) Respiratory rate 18 /min 18 /min eCW1 ([facility]) Body temperature 98.1 [degF] 98.1 [degF] eCW1 ( [facility]) Body mass index (BMI) [Ratio] 36.0 kg/m2 36.0 k g/m2 [facility] ([facility]) [place] body weight 166 [lb_av] 166 [lb_av] MEDEN T ([facility]) Body surface area Derived from formula 2.30 m2 2.30 m2 [facility] ([facility]) Body weight 113.854 kg 113.854 kg [facility] ([facility]) Systolic blood pressure 154 mm[Hg] 154 mm[Hg] M EDENT ([facility]) Diastolic blood pressure 73 mm[Hg] 73 mm[Hg] [place] ([facility]) Body height 70 [in_i] 70 [in_i] [facility] ([facility]) 5'10" Body weight 251.00 [lb_av] 251.00 [lb_av] MEDEN T ([facility]) Body weight 239 [lb_av] 239 [lb_av] eCW1 ([facility]) Body height 71 [in_i] 71 [in_i] eCW1 ([facility]) Body mass index (BMI) [Ratio] 33.33 kg/m2 33.33 kg/m2 W1 ([facility]) Heart rate 88 /min 88 /min eCW1 ([facility]) Respiratory rate 20 /min 20 /min eCW1 ([facility]) Body temperature 98.3 [degF] 98.3 [degF] eCW1 ( [facility]) Systolic blood pressure 145 mm[Hg] 145 mm[Hg] e CW1 ([facility]) Diastolic blood pressure 76 mm[Hg] 76 mm[Hg] eCW1 ([facility]) Body weight 231 [lb_av] 231 [lb_av] eCW1 ([facility]) Body height 71 [in_i] 71 [in_i] eCW1 ([facility]) Body mass index (BMI) [Ratio] 32.21 kg/m2 32.21 kg/m2 W1 ([facility]) Heart rate 78 /min 78 /min eCW1 ([facility]) Respiratory rate 20 /min 20 /min eCW1 ([facility]) Body temperature 97.9 [degF] 97.9 [degF] eCW1 ( [facility]) Systolic blood pressure 126 mm[Hg] 126 mm[Hg] e CW1 ([facility]) Diastolic blood pressure 66 mm[Hg] 66 mm[Hg] eCW1 ([facility]) Respiratory rate 16 /min 16 /min eCW1 ([facility]) Diastolic blood pressure 68 mm[Hg] 68 mm[Hg] eCW1 ([facility]) Body temperature 96.8 [degF] 96.8 [degF] eCW1 ( [facility]) Body weight 263 [lb_av] 263 [lb_av] eCW1 ([facility]) Body height 71 [in_i] 71 [in_i] eCW1 ([facility]) Body mass index (BMI) [Ratio] 36.68 kg/m2 36.68 kg/m2 eCW1 ([facility]) Heart rate 69 /min 69 /min eCW1 ([facility]) Systolic blood pressure 138 mm[Hg] 138 mm[Hg] e CW1 ([facility]) Body weight 261 [lb_av] 261 [lb_av] eCW1 ([facility]) Body height 71 [in_i] 71 [in_i] eCW1 ([facility]) Body mass index (BMI) [Ratio] 36.40 kg/m2 36.40 kg/m2 eCW1 ([facility]) Heart rate 67 /min 67 /min eCW1 ([facility]) Respiratory rate 16 /min 16 /min eCW1 ([facility]) Body temperature 97.1 [degF] 97.1 [degF] eCW1 ( [facility]) Systolic blood pressure 124 mm[Hg] 124 mm[Hg] e CW1 ([facility]) Diastolic blood pressure 78 mm[Hg] 78 mm[Hg] eCW1 ([facility]) Body weight 261.00 [lb_av] 261.00 [lb_av] [place] T ([facility]) Body height 71 [in_i] 71 [in_i] [facility] ([facility]) 5'11" Diastolic blood pressure--sitting 78 mm[Hg] 78 mm[Hg] [facility] ([facility]) large cuff, Ra Body mass index (BMI) [Ratio] 36.4 kg/m2 36.4 k g/m2 [facility] ([facility]) Heart rate 61 /min 61 /min [facility] ([facility]) Systolic blood pressure--sitting 140 mm[Hg] 140 mm[Hg] [facility] ([facility]) large cuff, Ra Systolic blood pressure 124 mm[Hg] 124 mm[Hg] M EDENT ([facility]) Diastolic blood pressure 68 mm[Hg] 68 mm[Hg] [facility] ([facility]) Heart rate 65 /min 65 /min [facility] ([facility]) Oxygen saturation in Arterial blood by Pulse oximetry 96 % 96 % [facility] ([facility]) Body temperature 97.1 [degF] 97.1 [degF] [facility] ([facility]) Body height 70 [in_i] 70 [in_i] [place] ([facility]) 5'10" Body weight 263.00 [lb_av] 263.00 [[facility]_av] [facility] Body mass index (BMI) [Ratio] 37.7 kg/m2 37.7 k g/m2 [facility] ([facility]) Body weight 119.297 kg 119.297 kg [facility] ([facility]) ID Date Data Source [id number] 11/01/2020 11:36:31 AM [facility] Name Value Range Interpretation Code Description Data Source(s) WEIGHT RECORDED 240 lb 240 lb [facility] ID Date Data Source [id number] 04/24/2020 10:52:15 AM [facility] Name Value Range Interpretation Code Description Data Source(s) WEIGHT RECORDED 261.6 lb 261.6 lb [facility] Body height Measured 70.08 in 70.08 in [facility] Patient Treatment Plan of Care Planned Activity Planned Date Details Description Data Source (s) Levofloxacin 500 MG Oral Tablet 02/14/2021 12:00:00 AM EDT eCW1 ([facility]) tramadol hydrochloride 50 MG Oral Tablet 02/14/2021 12:00:00 AM EDT eCW1 ([facility]) Levofloxacin 500 MG Oral Tablet 02/14/2021 12:00:00 AM EDT eCW1 ([facility]) tramadol hydrochloride 50 MG Oral Tablet 02/14/2021 12:00:00 AM EDT eCW1 ([facility]) FreeStyle Shabbir 2 Sensor 11/01/2020 12:00:00 AM [facility] 3 ML Insulin Lispro 100 UNT/ML Pen Injector 10/26/2020 12:00:00 AM [facility] Chlorthalidone 25 MG Oral Tablet 10/25/2020 12:00:00 AM [facility] Cholecalciferol 2000 UNT Oral Capsule 10/17/2020 12:00:00 AM [facility] 120 ACTUAT Albuterol 0.1 MG/ACTUAT / Ipr atropium [place] 0.02 MG/ACTUAT Metered Dose Inhaler [Combivent] 10/02/2020 12:00:00 AM [facility] BD Pen Needle Original U/F 29G X 12.7MM (Insulin Pen [place]) 2020 12:00:00 AM [facility] Levothyroxine Sodium 0.125 MG Oral Tablet 2020 12:00:[address] [facility] doxycycline hyclate 100 MG Oral Capsule 09/20/2020 12:00:00 AM EDT eCW1 ([facility]) doxycycline hyclate 100 MG Oral Capsule 09/20/2020 12:00:00 AM EDT eCW1 ([facility]) doxycycline hyclate 100 MG Oral Capsule 09/20/2020 12:00:00 AM EDT eCW1 ([facility]) doxycycline hyclate 100 MG Oral Capsule 09/20/2020 12:00:00 AM EDT eCW1 ([facility]) doxycycline hyclate 100 MG Oral Capsule 09/20/2020 12:00:00 AM EDT eCW1 ([facility]) Amlodipine 2.5 MG Oral Tablet 09/04/2020 12:00:00 AM [facility] Trulicity 3 MG/0.5ML Subcutaneous Solution Pen-injecto r (Dulaglutide) 09/01/2020 12:00:00 AM [facility] Dexamethasone 2 MG Oral Tablet 07/31/2020 12:00:00 AM EST eCW1 ([facility]) Dexamethasone 2 MG Oral Tablet 07/31/2020 12:00:00 AM EST eCW1 ([facility]) May Have - 07/31/2020 12:00:00 AM EST e CW1 ([facility]) May Have - 07/31/2020 12:00:00 AM EST e CW1 ([facility]) Dexamethasone 2 MG Oral Tablet 07/31/2020 12:00:00 AM EST eCW1 ([facility]) May Have - 07/31/2020 12:00:00 AM EST e CW1 ([facility]) 3 ML Insulin, Aspart, Human 100 UNT/ML Pen Injector [N ovoLog] 05/04/2020 12:00:00 AM [facility] 3 ML Insulin Lispro 100 UNT/ML Pen Injector 04/27/2020 12:00:00 AM [facility] Basaglar KwikPen 100 UNIT/ML Subcutaneou s Solution Pen-injector (insulin glargine) 04/24/2020 12:00:00 AM [facility] FreeStyle Shabbir 14 Day Sensor 04/20/2020 12:00:00 AM [facility] Cholecalciferol 4000 UNT Oral Capsule 04/20/2020 12:00:00 AM [facility] 0.5 ML dulaglutide 3 MG/ML Auto-Injector [Trulicity] 020 12:00:00 AM [facility] FrankoBarry Kimcandy Lancets 33G 04/20/2020 12:00:00 AM [facility] atorvastatin 40 MG Oral Tablet 04/20/2020 12:00:00 AM [facility] 3 ML insulin detemir 100 UNT/ML Pen Injector [Levemir] 04/20/2020 12:00:00 AM [facility] 3 ML Insulin, Aspart, Human 100 UNT/ML Pen Injector [N ovoLog] 04/20/2020 12:00:00 AM [facility] Losartan Potassium 100 MG Oral Tablet 04/19/2020 12:00:00 AM [place] [facility] Naproxen 500 MG Oral Tablet 03/25/2020 12:00:00 AM [facility] BD Pen Needle Original U/F 29G X 12.7MM (Insulin Pen N eedle) 03/21/2020 12:00:00 AM [facility] ospital Levothyroxine Sodium 0.125 MG Oral Tablet 03/21/2020 12:00:[address] [facility] Cholecalciferol 1000 UNT Oral Tablet 03/21/2020 12:00:00 AM [facility] FreeStyle Shabbir 14 Day Sensor 11/23/2019 12:00:00 AM [facility] Baclofen 10 MG Oral Tablet 11/18/2019 12:00:00 AM [facility] 0.5 ML dulaglutide 3 MG/ML Auto-Injector [Trulicity] 020 12:00:00 AM [facility] Losartan Potassium 50 MG Oral Tablet 10/01/2019 12:00:00 AM [facility] 3 ML insulin detemir 100 UNT/ML Pen Injector 07/28/2019 12:00:00 AM [facility] 3 ML Insulin, Aspart, Human 100 UNT/ML Pen Injector 07/28/19 20 12:00:00 AM [facility] 0.5 ML dulaglutide 3 MG/ML Auto-Injector 07/28/2019 12:00:00 AM [facility] clopidogrel 75 MG Oral Tablet 08/25/2017 12:00:00 AM [facility] FRANKOBARRY DELCANDY LANCETS 33G MISC 06/17/2017 12:00:00 AM [facility] FreeStyle Shabbir 2 Sensor Ups [facility] tramadol hydrochloride 50 MG Oral Tablet [facility] Rosuvastatin calcium 20 MG Oral Tablet [facility] carvedilol 6.25 MG Oral Tablet [facility]
[2021-04-18] MEDS ORDERED: PROPOFOL 1,000 MG/100 ML VIAL As Ordered ONE (22:48)
[2021-04-18 23:39] LABS: ABG BASE EXCESS -3.1 (-2.0-2.0); ABG HCO3 24.7 MEQ/L (22.0-26.0); ABG O2 SATURATION 98.5 % (95.0-99.0); ABG TOTAL CO2 26.3 MEQ/L (22.0-29.0); ABG pH (ARTERIAL) 7.278 UNITS (7.350-7.450)
[2021-04-18] MEDS ORDERED: ETOMIDATE INJ 20MG/10ML VIAL IV STA (23:44)
[2021-04-18] MEDS ORDERED: propofoL 1,000 MG in IV 1 EA IV SCH (23:45)
[2021-04-19] VITALS (9 sets, daily range): BP systolic 90–118; BP diastolic 50–68
--- NOTE | 2021-04-19 00:30 | REPVR ---
PROCEDURE INFORMATION: Exam: XR Chest Exam date and time: 04/18/2021 11:23 PM Age: 60 years old Clinical indication: Pain; On breathing; Additional info: Ett ngt TECHNIQUE: Imaging protocol: XR of the chest. Views: 1 view. COMPARISON: CT Chest without contrast 01/15/2021 9:34 AM FINDINGS: Tubes, catheters and devices: ET tube in position just below the level of the clavicular heads, approximately 2 cm above the raquel. NG tube extending to at least the GE junction. Lungs: There is decreased inflation of the lungs. Bilateral pulmonary infiltrates. Pleural spaces: Unremarkable. No pleural effusion. No pneumothorax. Heart/Mediastinum: The heart is within normal limits for size. Bones/joints: Unremarkable. Soft tissues: There are generous overlying soft tissues. IMPRESSION: 1. Poor inspiratory chest with bilateral pulmonary infiltrates. 2. ET tube in position with the tip just below the clavicular heads, approximately 2 cm above the raquel. 3. NG tube extending to at least the GE junction. Electronically signed by: Kuldip Bai On 04/19/2021 00:29:56 AM
[2021-04-19 00:37] LABS: CK-MB VALUE MASS 1.4 NG/ML (<3.6); CPK CREATINE PHOSPHOKINASE 121 U/L (39-308); MB/CK RELATIVE INDEX 1.16 (< OR =4); TROPONIN I < 0.02 NG/ML (< 0.10)
[2021-04-19 00:39] LABS: RSV AMPLIFICATION NEGATIVE (NEGATIVE)
[2021-04-19] MEDS ORDERED: diphenhydrAMINE 50MG/ML VIAL (J1200) IV SCH (01:00)
[2021-04-19] MEDS ORDERED: propofoL 1,000 MG in IV 1 EA IV SCH (01:00)
[2021-04-19] MEDS ORDERED: NS 1,000 ML IV SCH (01:00)
[2021-04-19] MEDS ORDERED: MIDAZOLAM INJ 2MG/2ML VIAL (J2250 PER 1MG) IV PRN (01:00)
[2021-04-19] MEDS ORDERED: dexameTHASONE 4 MG/ML 1ML VIAL (J1100 PER 1MG) IV SCH (01:00)
--- NOTE | 2021-04-19 01:02 | REPVR ---
PROCEDURE INFORMATION: Exam: CT Neck With Contrast Exam date and time: 04/18/2021 11:58 PM Age: 60 years old Clinical indication: Other: Laryngeal edema; Additional info: Larygeal edema, TECHNIQUE: Imaging protocol: Computed tomography images of the neck with contrast. Radiation optimization: All CT scans at this facility use at least one of these dose optimization techniques: automated exposure control; mA and/or kV adjustment per patient size (includes targeted exams where dose is matched to clinical indication); or iterative reconstruction. Contrast material: ISO; Contrast volume: 75 ml; Contrast route: INTRAVENOUS (IV); COMPARISON: CT ANGIO CHEST 04/19/2021 12:38 AM FINDINGS: Nasopharynx: Unremarkable. Oropharynx: Unremarkable. No significant tonsillar enlargement. Hypopharynx: Unremarkable. Larynx: The larynx is within normal limits with limited evaluation considering passage of the ET tube through the larynx. Retropharyngeal space: Unremarkable. Submandibular/Parotid glands: Normal. Glands are normal in size. Thyroid: Normal. No enlarged or calcified nodules. Lymph nodes: Unremarkable. No lymphadenopathy. Trachea: Visualized trachea is unremarkable. Lungs: Bilateral upper lobe infiltrates and some consolidation posteriorly on the left. Bones/joints: Unremarkable. No acute fracture. Soft tissues: OG tube and ET tube in position. IMPRESSION: 1. OG tube and ET tube in position. 2. Bilateral upper lobe infiltrates with some atelectasis or consolidation in the posterior left upper lobe. 3. Otherwise negative CT neck. Electronically signed by: Kuldip Bai On 04/19/2021 01:01:42 AM
--- OUTSIDE RECORDS SUMMARY | 2021-04-19 01:15 | CCD ---
Author Author [facility] Organization [facility] Address Unknown Phone Unavailable Care Team Providers Care Superintendent Terminal Name Role Phone Chase, L Antonella SOFTWARE WRITER Unavailable Unavailable Hcase, L Antonella SOFTWARE WRITER Unavailable Unavailable Chase, L Antonella SOFTWARE WRITER Unavailable Unavailable Chase, L Antonella SOFTWARE WRITER Unavailable Unavailable Chase, L Antonella SOFTWARE WRITER Unavailable Unavailable Chase, L Antonella SOFTWARE WRITER Unavailable Unavailable Chase, L Antonella SOFTWARE WRITER Unavailable Unavailable Chase, L Antonella SOFTWARE WRITER Unavailable Unavailable Chase, L Antonella SOFTWARE WRITER Unavailable Unavailable Chase, L Antonella SOFTWARE WRITER Unavailable Unavailable Chase, L Antonella SOFTWARE WRITER Unavailable Unavailable Chase, L Antonella SOFTWARE WRITER Unavailable Unavailable Chase, L Antonella SOFTWARE WRITER Unavailable Unavailable Chase, L Antonella SOFTWARE WRITER Unavailable Unavailable Chase, L Antonella SOFTWARE WRITER Unavailable Unavailable Chase, L Antonella SOFTWARE WRITER Unavailable Unavailable Chase, L Antonella SOFTWARE WRITER Unavailable Unavailable Chase, L Antonella SOFTWARE WRITER Unavailable Unavailable Chase, L Antonella SOFTWARE WRITER Unavailable Unavailable Chase, L Antonella SOFTWARE WRITER Unavailable Unavailable Chase, L Antonella SOFTWARE WRITER Unavailable Unavailable Chase, L Antonella SOFTWARE WRITER Unavailable Unavailable Chase, L Antonella SOFTWARE WRITER Unavailable Unavailable Chase, L Antonella SOFTWARE WRITER Unavailable Unavailable Chase, L Antonella SOFTWARE WRITER Unavailable Unavailable Spenser, L Jessie PA Unavailable [...] Unavailable REINEUGENIO, RACHEL WRIGHT Unavailable Unavailable REINRACHEL BECEKR MD Unavailable Unavailable REINRACHEL BECKER MD Unavailable Unavailable REINDL, RACHEL WRIGHT Unavailable Unavailable REINDL, RACHEL WRIGHT Unavailable Unavailable REINDL, RACHEL WRIGHT Unavailable Unavailable REINDL, RACHEL WRIGHT Unavailable Unavailable REINDLRACHEL MD Unavailable Unavailable REINDL, RACHEL WRIGHT Unavailable Unavailable REINDL, RACHEL WRIGHT Unavailable Unavailable REINDL, RACHEL WRIGHT Unavailable Unavailable REINEUGENIO, RACHEL WRIGHT Unavailable Unavailable REINDL, RCAHEL WRIGHT Unavailable Unavailable REINDL, RACHEL WRIGHT Unavailable [...] is protected by Article 27-F of the [facility] Public Health law. If you continue you may have access to information: Regarding HIV / AIDS; Provided by facilities licensed or operated by the [facility] Office of Mental Health; or Provided by the [facility] Office for People With Developmental Disabilities. If such information is present, then the following [facility] mandated warning applies: This information has [...] law may result in a fine or longterm sentence or both. A general authorization for the release of medical or other information is NOT sufficient authorization for further disc losure. Family History Family Member Name Family Member Gender Family Member Status Date o f Status Description Data Source(s) Unknown Male Problem [facility] Unknown Unknown Problem [facility] ([facility]) Unknown Unknown Problem [facility] ([facility]) Unknown Unknown Problem [facility] ([facility]) Unknown Female Problem [facility] ([facility]) Unknown Female Problem [facility] ([facility]) Encounters Encounter Providers Location Date Indications Data Source(s ) Outpatient Attender: Evan Gonzalez 11/12/2021 12:00:00 AM [facility] Outpatient Attender: Evan Gonzalez 10/29/2021 12:00:00 AM [facility] Outpatient Attender: SATYA ANDERSON 06/04/2021 12:00:0 0 AM [facility] Outpatient [address], [facility] [id number] 03/06/2021 12:00:00 AM EDT eCW1 (On license of [facility]) Outpatient Attender: SATYA ANDERSON 03/02/2021 12:00:0 0 AM [facility] Outpatient Attender: Evan Gonzalez 03/01/2021 12:00:[address] [facility] [place] [address] [address] 02/14/2021 12:00:00 AM EDT eCW1 (On license of [facility]) [place] [address] [address] 02/14/2021 12:00:00 AM EDT eCW1 (On license of [facility]) [place] [address] [address] 02/02/2021 12:00:00 AM EDT eCW1 (On license of [facility]) Outpatient Attender: Antonella Madera/Clarisa/Yasmany/Reindl 01/23/2021 02:30:00 PM EDT [facility] ([facility]) [place] [address] [address] 01/01/2021 12:00:00 AM EDT eCW1 (On license of [facility]) Outpatient Attender: RACHEL Madera/Clarisa/Yasmany/Rein dl 11/29/2020 01:00:00 PM EDT [facility] ([facility]) [place] [address] [address] 11/24/2020 12:00:00 AM EDT eCW1 (On license of [facility]) Outpatient Attender: TERESA ANDERSON Main Office 11/16/2020 0 2:00:00 PM EDT MED[facility] ([facility]) Outpatient Attender: SATYA ANDERSON [id number] 11/01/2020 1 2:00:00 AM EDT middle or intermediate [employer] principal (current) use of insulin [facility] custodial (current) use of insulin [place] [address] [address] 10/05/2020 12:00:00 AM EDT eCW1 (On license of [facility]) Outpatient Attender: TERESA ANDERSON Main Office 10/02/2020 1 2:45:00 PM EDT [facility] ([facility]) Outpatient Attender: Marilyn Padilla MD Physical Therapy 02:45:00 PM EDT [facility] ([facility]) [place] [address] [address] 09/20/2020 12:00:00 AM EDT eCW1 ([facility]) Outpatient Attender: RACHEL Madera/Clarisa/Yasmany/José Miguel becker 09/06/2020 01:30:00 PM EST MED[facility] ([facility] Outpatient Attender: SATYA ANDERSON [id number] 12:00:00 AM EST - 09/01/2020 03:34:09 PM EST custodial (current) use of insulin [facility] custodial (current) use of insulin [place] [address] [address] 08/29/2020 12:00:00 AM EST eCW1 ([facility]) [place] [address] [address] 08/29/2020 12:00:00 AM EST eCW1 ([facility]) [place] [address] [address] 08/23/2020 12:00:00 AM EST eCW1 ([facility]) Outpatient Attender: Evan Gonzalez 08/03/2020 12:00:[address] [facility] [address] [address] 07/31/2020 12:00:00 AM EST [facility]CW1 [facility] [place] [address] [address] 07/31/2020 12:00:00 AM EST eCW1 [facility] [place] [address] [address] 07/28/2020 12:00:00 AM EST eCW1 ([facility]) [place] [address] [address] 07/27/2020 12:00:00 AM EST eCW1 ([facility]) [place] [address] [address] 07/24/2020 12:00:00 AM EST [facility]CW1 [facility] [place] [address] [address] 07/21/2020 12:00:00 AM EST eCW1 ([facility]) [place] [address] [address] 07/20/2020 12:00:00 AM EST eCW1 ([facility]) [place] [address] [address] 07/20/2020 12:00:00 AM EST eCW1 ([facility]) [place] [address] [address] 07/20/2020 12:00:00 AM EST eCW1 ([facility]) [place] [address] [address] 07/13/2020 12:00:00 AM EST eCW1 ([facility]) [place] [address] [address] 07/13/2020 12:00:00 AM EST eCW1 ([facility]) [place] [address] [address] 07/11/2020 12:00:00 AM EST eCW1 ([facility]) [place] [address] [address] 07/11/2020 12:00:00 AM EST eCW1 ([facility]) [place] [address] [address] 07/10/2020 12:00:00 AM EST eCW1 ([facility]) [place] [address] [address] 07/05/2020 12:00:00 AM EST eCW1 ([facility]) [place] [address] [address] 07/04/2020 12:00:00 AM EST eCW1 ([facility]) [place] [address] [address] 06/15/2020 12:00:00 AM EST eCW1 (On license of [facility]) [place] [address] [address] 06/09/2020 12:00:00 AM EST eCW1 (On license of [facility]) [place] [address] [address] 06/08/2020 12:00:00 AM EST eCW1 (On license of [facility]) [place] [address] [address] 05/26/2020 12:00:00 AM EST eCW1 (On license of [facility]) [place] [address] [address] 05/24/2020 12:00:00 AM EST eCW1 (On license of [facility]) Outpatient Attender: Jessie ANDERSON Main Office 05/12/2020 07:15:0 0 AM EST MED[facility] ([facility]) Outpatient Attender: SATYA ANDERSON [id number] 12:00:00 AM EDT - 04/20/2020 12:42:09 PM EDT Type 2 diabetes mellitus with hyperglycemia [facility] Type 2 diabetes mellitus with hyperglyce starla Outpatient Attender: Antonella Madera/Clarisa/Yasmany/Maureen 03/30/2020 10:00:00 AM EDT MED[facility] ([facility]) Immunizations Vaccine Date Status Description Data Source(s) pneumococcal polysaccharide PPV23 03/06/2021 12:06:00 PM EDT comple alaln eCW1 ([facility]) Tdap 03/06/2021 12:05:00 PM EDT completed e CW1 ([facility]) Medications Medication Brand Name Start Date Product Form Dose Route Admi nistrative Instructions Pharmacy Instructions Status Indications Reaction Description Data Source(s) tramadol hydrochloride 50 MG Oral Tablet traMADol HCl 50 MG traMADol HCl 50 MG 02/14/2021 12:00:00 AM EDT 1.0 {tablet_as_needed} active traMADol HCl 50 MG eCW1 ([facility]) Levofloxacin 500 MG Oral Tablet Levaquin 500 MG Levaquin 500 MG 02/14/2021 12:00:00 AM EDT 1.0 {tablet} active Le vaquin 500 MG eCW1 ([facility]) Levofloxacin 500 MG Oral Tablet Levaquin 500 MG Levaquin 500 MG 02/14/2021 12:00:00 AM EDT 1.0 {tablet} suspended Levaquin 500 MG eCW1 ([facility]) Levofloxacin 500 MG Oral Tablet Levaquin 500 MG Levaquin 500 MG 02/14/2021 12:00:00 AM EDT 1.0 {tablet} active Le vaquin 500 MG eCW1 ([facility]) tramadol hydrochloride 50 MG Oral Tablet traMADol HCl 50 MG traMADol HCl 50 MG 02/14/2021 12:00:00 AM EDT 1.0 {tablet_as_needed} active traMADol HCl 50 MG eCW1 ([facility]) tramadol hydrochloride 50 MG Oral Tablet traMADol HCl 50 MG traMADol HCl 50 MG 02/14/2021 12:00:00 AM EDT 1.0 {tablet_as_needed} active traMADol HCl 50 MG eCW1 ([facility]) 24 HR Diltiazem Hydrochloride 120 MG Extended Release Oral Capsule [Dilt] Dilt-XR 11/16/2020 12:00:00 AM EDT ORAL active MED[facility] ([facility]) FreeStyle Shabbir 2 Sensor 47544-532-20 11/01/2020 12:00:00 AM EDT 1 {each} Does not apply active 1 each by Does not apply route every 14 (fourteen) days Use as directed. Dx:E11.65 [facility] 100 unit/mL 10/27/2020 12:00:00 AM EDT [...] 100 units with priming and titration.Dx: E11.65 [facility] Type 2 diabetes mellitus with hyperglyce starla, with long-term current use of insulin Chlorthalidone 25 MG Oral Tablet Chlorthalidone 25 MG Oral Tablet (HYGROTON) Chlorthalidone 25 MG Oral Tablet (HYGROTON) 10/25/2020 12:00:00 AM EDT active [facility] Cholecalciferol 1999 UNT Oral Capsule Vitamin D3 50 MC G (1999) Oral Capsule Vitamin D3 50 MCG (1999) Oral Capsule 10/17/2020 12:00:00 AM EDT active TAKE TWO CAPSULES BY MOUTH EVERY DAY [facility] 120 ACTUAT Albuterol 0.1 MG/ACTUAT / Ipr atropium [place] 0.02 MG/ACTUAT Metered Dose Inhaler [Combivent] Combivent Respimat 20-100 MCG/ACT Inhalation Aerosol Solution Combivent Respimat 20-100 MCG/ACT Inhalation Aerosol S olution 10/02/2020 12:00:00 AM EDT active INHALE ONE PUFF BY MOUTH THREE TIMES A DAY [facility] doxycycline hyclate 100 MG Oral Capsule Doxycycline Hyclate 10/01/2020 12:00:00 AM EDT ORAL completed MED[facility] ([facility]) 3 ML Insulin Lispro 25 UNT/ML / Insulin, Protamine Lispro, Human 75 UNT/ML Pen Injector [Humalog Mix] Humalog Mix 75/25 Kwikpen 10/01/2020 12:00:00 AM EDT active [facility] ([facility] Basaglar Kwikpen Basaglar Kwikpen 10/01/2020 12:00:00 AM EDT active [facility] ([facility] Trulicity Trulicity 10/01/2020 12:00:00 AM EDT act artemio MED[facility] ([facility]) Levothyroxine Sodium 0.125 MG Oral Table t Levothyroxine Sodium 125 MCG Oral Tablet (SYNTHROID) Levothyroxine Sodium 125 MCG Oral Tablet (SYNTHROID) 2020 12:00:00 AM EDT active Other specified hypothyroidism TAKE ONE TABLET BY MOUTH EVERY DAY [facility] Other specified hypothyroidism BD Pen Needle Original U/F 29G X 12.7MM (Insulin Pen Needle) [id number] 2020 12:00:00 AM EDT act artemio Type 2 diabetes mellitus with hyperglycemia, with long-term current use of insulin U se as directed. INJECT DIRECTED UP TO [address] [facility] Type 2 diabetes mellitus with hyperglyce starla, with long-term current use of insulin doxycycline hyclate 100 MG Oral Capsule Doxycycline Hy clate 100 MG Doxycycline Hyclate 100 MG 09/20/2020 12:00:00 AM EDT 1.0 {capsule} active Doxycycline Hyclate 100 MG eCW1 ([facility]) doxycycline hyclate 100 MG Oral Capsule Doxycycline Hy clate 100 MG Doxycycline Hyclate 100 MG 09/20/2020 12:00:00 AM EDT 1.0 {capsule} active Doxycycline Hyclate 100 MG eCW1 ([facility]) doxycycline hyclate 100 MG Oral Capsule Doxycycline Hy clate 100 MG Doxycycline Hyclate 100 MG 09/20/2020 12:00:00 AM EDT 1.0 {capsule} active eCW1 ([facility]) doxycycline hyclate 100 MG Oral Capsule Doxycycline Hy clate 100 MG Doxycycline Hyclate 100 MG 09/20/2020 12:00:00 AM EDT 1.0 {capsule} active Doxycycline Hyclate 100 MG eCW1 ([facility]) doxycycline hyclate 100 MG Oral Capsule Doxycycline Hy clate 100 MG Doxycycline Hyclate 100 MG 09/20/2020 12:00:00 AM EDT 1.0 {capsule} active Doxycycline Hyclate 100 MG eCW1 ([facility]) Chlorthalidone 25 MG Oral Tablet Chlorthalidone 25 MG 2020 12:00:00 AM EST 1.0 {tablet_in_the_morning_with_food} active Chlorthalidone 25 MG eCW1 ([facility]) Chlorthalidone 25 MG Oral Tablet Chlorthalidone 25 MG 2020 12:00:00 AM EST 1.0 {tablet_in_the_morning_with_food} active Chlorthalidone 25 MG eCW1 ([facility]) Chlorthalidone 25 MG Oral Tablet Chlorthalidone 25 MG 2020 12:00:00 AM EST 1.0 {tablet_in_the_morning_with_food} active Chlorthalidone 25 MG eCW1 ([facility]) Chlorthalidone 25 MG Oral Tablet Chlorthalidone 25 MG 2020 12:00:00 AM EST 1.0 {tablet_in_the_morning_with_food} active Chlorthalidone 25 MG eCW1 ([facility]) Chlorthalidone 25 MG Oral Tablet Chlorthalidone 25 MG 2020 12:00:00 AM EST 1.0 {tablet_in_the_morning_with_food} active Chlorthalidone 25 MG eCW1 ([facility]) Chlorthalidone 25 MG Oral Tablet Chlorthalidone 25 MG 2020 12:00:00 AM EST 1.0 {tablet_in_the_morning_with_food} active Chlorthalidone 25 MG eCW1 ([facility]) Chlorthalidone 25 MG Oral Tablet Chlorthalidone 25 MG 2020 12:00:00 AM EST 1.0 {tablet_in_the_morning_with_food} active Chlorthalidone 25 MG eCW1 ([facility]) Chlorthalidone 25 MG Oral Tablet Chlorthalidone 25 MG 2020 12:00:00 AM EST 1.0 {tablet_in_the_morning_with_food} active eCW1 ([facility]) Chlorthalidone 25 MG Oral Tablet Chlorthalidone 09/14/2020 12:00:00 A M EST ORAL completed [facility] ([facility] 25 mg 09/14/2020 12:00:00 AM EST tablet [...] active Take 2.5 mg by mouth [facility] Amlodipine 2.5 MG Oral Tablet Amlodipine Besylate 09/04/2020 12:00: 00 AM EST ORAL completed [facility] ([facility]) Trulicity 3 MG/0.5ML Subcutaneous Solution Pen-injecto r (Dulaglutide) 6542-9101-01 09/01/2020 12:00:00 AM EST 3 mg Subcutaneous active Inject 3 mg into the skin once a week [facility] 0.4 mg 08/10/2020 12:00:00 AM EST [...] {tablet} suspended Dexamethasone 2 M G eCW1 ([facility]) Dexamethasone 2 MG Oral Tablet Dexamethasone 2 MG 07/31/2020 12:00: 00 AM EST 1.0 {tablet} suspended Dexamethasone 2 M G eCW1 ([facility]) May Have - UNK 07/31/2020 12:00:00 AM EST active May Have - eCW1 ([facility]) Dexamethasone 2 MG Oral Tablet Dexamethasone 2 MG 07/31/2020 12:00: 00 AM EST 1.0 {tablet} active Dexamethasone 2 MG eCW1 ([facility]) May Have - UNK 07/31/2020 12:00:00 AM EST active May Have - eCW1 ([facility]) May Have - UNK 07/31/2020 12:00:00 AM EST active May Have - eCW1 ([facility]) May Have - UNK 07/31/2020 12:00:00 AM EST active May Have - eCW1 ([facility]) Dexamethasone 2 MG Oral Tablet Dexamethasone 2 MG 07/31/2020 12:00: 00 AM EST 1.0 {tablet} suspended Dexamethasone 2 M G eCW1 ([facility]) Dexamethasone 2 MG Oral Tablet Dexamethasone 2 MG 07/31/2020 12:00: 00 AM EST 1.0 {tablet} suspended Dexamethasone 2 M G eCW1 ([facility]) May Have - UNK 07/31/2020 12:00:00 AM EST active May Have - eCW1 ([facility]) May Have - UNK 07/31/2020 12:00:00 AM EST active May Have - eCW1 ([facility]) Dexamethasone 2 MG Oral Tablet Dexamethasone 2 MG 07/31/2020 12:00: 00 AM EST 1.0 {tablet} suspended Dexamethasone 2 M G eCW1 ([facility]) May Have - UNK 07/31/2020 12:00:00 AM EST active May Have - eCW1 ([facility]) May Have - UNK 07/31/2020 12:00:00 AM EST active May Have - eCW1 ([facility]) Dexamethasone 2 MG Oral Tablet Dexamethasone 2 MG 07/31/2020 12:00: 00 AM EST 1.0 {tablet} active Dexamethasone 2 MG eCW1 ([facility]) May Have - UNK 07/31/2020 12:00:00 AM EST active May Have - eCW1 ([facility]) Dexamethasone 2 MG Oral Tablet Dexamethasone 2 MG 07/31/2020 12:00: 00 AM EST 1.0 {tablet} suspended Dexamethasone 2 M G eCW1 ([facility]) Dexamethasone 2 MG Oral Tablet Dexamethasone 2 MG 07/31/2020 12:00: 00 AM EST 1.0 {tablet} suspended Dexamethasone 2 M G eCW1 ([facility]) May Have - UNK 07/31/2020 12:00:00 AM EST active May Have - eCW1 ([facility]) Dexamethasone 2 MG Oral Tablet Dexamethasone 2 MG 07/31/2020 12:00: 00 AM EST 1.0 {tablet} active Dexamethasone 2 MG eCW1 ([facility]) May Have - UNK 07/31/2020 12:00:00 AM EST active May Have - eCW1 ([facility]) Dexamethasone 2 MG Oral Tablet Dexamethasone 2 MG 07/31/2020 12:00: 00 AM EST 1.0 {tablet} suspended Dexamethasone 2 M G eCW1 ([facility]) May Have - UNK 07/31/2020 12:00:00 AM EST active May Have - eCW1 ([facility]) May Have - UNK 07/31/2020 12:00:00 AM EST active May Have - eCW1 ([facility]) Dexamethasone 2 MG Oral Tablet Dexamethasone 2 MG 07/31/2020 12:00: 00 AM EST 1.0 {tablet} suspended eCW1 ([facility]) Dexamethasone 2 MG Oral Tablet Dexamethasone 2 MG 07/31/2020 12:00: 00 AM EST 1.0 {tablet} suspended Dexamethasone 2 M G eCW1 ([facility]) May Have - UNK 07/31/2020 12:00:00 AM EST active eCW1 ([facility]) Dexamethasone 2 MG Oral Tablet Dexamethasone 2 MG 07/31/2020 12:00: 00 AM EST 1.0 {tablet} suspended Dexamethasone 2 M G eCW1 ([facility]) 50 mg 07/19/2020 12:00:00 AM EST [...] ORAL active [facility] ([facility] 3 ML Insulin, Aspart, Human 100 UNT/ML P en Injector [NovoLog] NovoLOG FlexPen 100 UNIT/ML Subcutaneous Solution Pen-injector (insulin aspart) NovoLOG FlexPen 100 UNIT/ML Subcutaneous Solution Pen-injector (insulin aspart) 05/04/2020 12:00:00 AM EDT aborted Type 2 diabetes mellitus with hyperglycemia, with long-term current use of insulin INJECT UNDER THE SKIN THREE TIMES A DAY MAXIMUM DAILY DOSE = 125UNITS [facility] Type 2 diabetes mellitus with hyperglyce [...] units with titration and priming. Dx: E11.65 [facility] Type 2 diabetes mellitus with hyperglyce [...] UNIT/ML Subcutaneou s Solution Pen-injector (insulin glargine) 9445-8007-45 04/24/2020 12:00:00 AM EDT active Type 2 diabetes mellitus with hyperglycemia, with long-term current use of insulin Inject 60 units, QAM and 60 units QPM, Max Daily Dose: 144 units inclusive of priming and titiration. Dx code: E11.65 [facility] Type 2 diabetes mellitus with hyperglyce [...] units with titration and priming. Dx: E11.65. [facility] Type 2 diabetes mellitus with hyperglyce starla, with long-term current use of insulin FreeStyle Shabbir 14 Day Sensor 47787-742-19 04/20/2020 12:00:00 AM EDT active Type 2 diabetes mellitus with hyperglyce starla, with long-term current use of insulin Use as directed. Change every 14 days. Dx: E11.65 [facility] Type 2 diabetes mellitus with hyperglyce [...] of priming and titiration. Dx code: E11.65 [facility] Type 2 diabetes mellitus with hyperglyce stalra, with long-term current use of insulin 0.5 ML dulaglutide 3 MG/ML Auto-Injector [Trulicity] Trulicity 1.5 MG/0.5ML Subcutaneous Solution Pen-injector (dulaglutide) Trulicity 1.5 MG/0.5ML Subcutaneous Solution Pen-injector (dulaglutide) 04/20/2020 12:00:00 AM EDT 1.5 mg Subcutaneous aborted Type 2 diabetes mellitus with hyperglycemia, with long-term current use of insulin Inject 0.5 mLs i nto the skin once a week [facility] Type 2 diabetes mellitus with hyperglyce starla, with long-term current use of insulin Cholecalciferol 4000 UNT Oral Capsule Ch olecalciferol 100 MCG (4000 UT) Oral Capsule Cholecalciferol 100 MCG (4000 UT) Oral Capsule 020 12:00:00 AM EDT 1 {capsule} Oral active Take 1 capsu le by mouth daily [facility] Lancets 33G [id number] 04/20/2020 12:00:00 AM EDT aborted Type 2 diabetes mellitus with hyperglyce starla, with long-term current use of insulin Use to test blood sugar up to 4 times da adeola. Dx: e11.65 [facility] Type 2 diabetes mellitus with hyperglyce starla, with long-term current use of insulin atorvastatin 40 MG Oral Tablet ATORVASTATIN CALCIUM 04/20/2020 1 2:00:00 AM EDT tablet 30 TAKE 1 TABLET BY MOUTH AT BEDTIME TAKE 1 TABLET BY MOUTH AT BEDTIME SOLD: 04/24/2020 [employer] atorvastatin 40 MG Oral Tablet Atorvastatin Calcium 40 MG Oral Tablet (LIPITOR) Atorvastatin Calcium 40 MG Oral Tablet (LIPITOR) 04/20/2020 12:00:00 AM EDT aborted [facility] Losartan Potassium 100 MG Oral Tablet Lo sartan Potassium 100 MG Oral Tablet (COZAAR) Losartan Potassium 100 MG Oral Tablet (COZAAR) 020 12:00:00 AM EDT active [facility] Naproxen 500 MG Oral Tablet Naproxen 500 MG Oral Table t (NAPROSYN) Naproxen 500 MG Oral Tablet (NAPROSYN) 03/25/2020 12:00:00 AM EDT active TAKE ONE TABLET BY MOUTH EVERY 12 HOURS WITH FOOD OR MILK NEEDED [facility] BD Pen Needle Original U/F 29G X 12.7MM (Insulin Pen Needle) [id number] 03/21/2020 12:00:00 AM EDT act artemio Type 2 diabetes mellitus with hyperglycemia, with long-term current use of insulin U se as directed. INJECT DIRECTED UP TO [address] [facility] Type 2 diabetes mellitus with hyperglyce starla, with long-term current use of insulin Levothyroxine Sodium 0.125 MG Oral Table t Levothyroxine Sodium 125 MCG Oral Tablet (SYNTHROID) Levothyroxine Sodium 125 MCG Oral Tablet (SYNTHROID) 03/21/2020 12:00:00 AM EDT active Other specified hypothyroidism TAKE ONE TABLET BY MOUTH EVERY DAY [facility] Other specified hypothyroidism Cholecalciferol 1000 UNT Oral Tablet Vit olmedo D3 25 MCG (1000 UT) Oral Tablet (CHOLECALCIFEROL) Vitamin D3 25 MCG (1000 UT) Oral Tablet (CHOLECALCIFER OL) 03/21/2020 12:00:00 AM EDT aborted TAKE THREE TABLETS BY MOUTH EVERY DAY [facility] Cholecalciferol 1000 UNT Oral Capsule Vitamin D3 12/02/2019 12:00:00 AM EDT ORAL completed [facility] ([facility]) FreeStyle Shabbir 14 Day Sensor [id number] 11/23/2019 12:00:00 AM EDT aborted Type 2 diabetes mellitus with hyperglyce starla, with long-term current use of insulin Use as directed. Change every 14 days. Dx: E11.65 [facility] Type 2 diabetes mellitus with hyperglyce starla, with long-term current use of insulin Baclofen 10 MG Oral Tablet Baclofen 10 MG Oral Tablet (LIORESAL) Baclofen 10 MG Oral Tablet (LIORESAL) 11/18/2019 12:00:00 AM EDT aborted TAKE ONE TABLET BY MOUTH THREE TIMES A DAY NEEDED FOR MUSCLE SPASMS [facility] 0.5 ML dulaglutide 3 MG/ML Auto-Injector [Trulicity] Trulicity 1.5 MG/0.5ML Subcutaneous Solution Pen-injector (dulaglutide) Trulicity 1.5 MG/0.5ML Subcutaneous Solution Pen-injector (dulaglutide) 10/04/2019 12:00:00 AM EDT aborted Type 2 diabetes mellitus with hyperglycemia, with long-term current use of insulin INJECT 1.5MG WEEKLY [facility] Type 2 diabetes mellitus with hyperglyce starla, with long-term current use of insulin Losartan Potassium 50 MG Oral Tablet Los gavin Potassium 50 MG Oral Tablet (COZAAR) Losartan Potassium 50 MG Oral Tablet (COZAAR) 10/01/19 12:00:00 AM EDT aborted [facility] 3 ML Insulin, Aspart, Human 100 UNT/ML P en Injector Insulin Aspart 100 UNIT/ML Subcutaneous Solution Pen-injector (NOVOLOG FLEXPEN) Insulin Aspart 100 UNIT/ML Subcutaneous Solution Pen-injector (NOVOLOG FLEXPEN) 07/28/2019 12:00:00 AM EST aborted Type 2 diabete s mellitus with hyperglycemia, with long-term current use of insulin Inject subq daily per insuli n orders. MDD 175 units with titration and priming. Dx: E11.65. [facility] Type 2 diabetes mellitus with hyperglyce starla, with long-term current use of insulin 0.5 ML dulaglutide 3 MG/ML Auto-Injector Dulaglutide 1.5 MG/0.5ML Subcutaneous Solution Pen-injector (TRULICITY) Dulaglutide 1.5 MG/0.5ML Subcutaneous So lution Pen-injector (TRULICITY) 07/28/2019 12:00:00 AM EST active Type 2 diabetes mellitus with hyperglycemia, with long-term current use of insulin Inject 1.5 mg once weekly. DX:E11.65 [facility] Type 2 diabetes mellitus with hyperglyce [...] of priming and titiration. Dx code: E11.65 [facility] Type 2 diabetes mellitus with hyperglyce starla, with long-term current use of insulin clopidogrel 75 MG Oral Tablet clopidogrel (PLAVIX) 75 MG tablet clopidogrel (PLAVIX) 75 MG tablet 08/25/2017 12:00:00 AM EST 75 mg Oral aborted Take 75 mg by mouth daily [facility] FRANKOKIMBERLY DELCANDY LANCETS [facility]G [facility] [id number] 06/17/2017 12:00:[address] aborted Type 2 diabetes idris itus with hyperglycemia, with long-term current use of insulin Use to test blood sugar up to 6 times da adeola. Dx: e11.65 [facility] Type 2 diabetes mellitus with hyperglyce starla, with long-term current use of insulin tramadol hydrochloride 50 MG Oral Tablet traMADol HCl 50 MG Oral Tablet (ULTRAM) traMADol HCl 50 MG Oral Tablet (ULTRAM) 50 mg Oral aborted Take 50 mg by mouth every 8 (eight) hours as needed [facility] Rosuvastatin calcium 20 MG Oral Tablet rosuvastatin (C RESTOR) 20 MG tablet rosuvastatin (CRESTOR) 20 MG tablet 20 mg Oral ab orted Take 20 mg by mouth [address] [facility] carvedilol 6.25 MG Oral Tablet carvedilol (COREG) 6.25 MG tablet carvedilol (COREG) 6.25 MG tablet 6.25 mg Oral aborted Take 6.25 mg by mouth Two times daily with meals [facility] FreeStyle Shabbir 2 Sensor [id number] 1 {each} Does not apply aborted 1 each by Does not apply route every 14 (fourteen) days Use as directed. Dx:E11.65 [facility] Insurance Providers Payer name Policy type / Coverage type Policy ID Covered republican ID Covered republican's relationship to patiño Policy Patiño Plan Information [facility] Anabel OSORIO Yoy, ZFH,[facility] Medigap Part B [id number] Self [id number] [facility] Anabel OSORIO Yoy,DAVI,[facility] Medigap Part B [id number] Self [id number] [facility] Anabel OSORIO Yoy, ZFH,[facility] Medigap Part B [id number] Self [id number] [facility] Anabel OSORIO Yoy, ZFH,[facility] Medigap Part B [id number] Self [id number] [facility] Anabel OSORIO Yoy,SARAH,[facility] Medigap Part B [id number] Self Ghi FHP-(DO Not Use) Medigap Part B [id number] Self 0 [id number] Ghi FHP-(DO Not Use) Medigap Part B [id number] Self Ghi FHP-(DO Not Use) Medigap Part B [id number] Self 0 [id number] Ghi FHP-(DO Not Use) Medigap Part B [id number] Self 0 [id number] Ghi FHP-(DO Not Use) Medigap Part B [id number] Self 0 [id number] BS [employer] [employer] [id number] Family Dependent [employer] [place] Medigap Part B [id number] Family Dependent S [id number] [employer] Medigap Part B [id number] Family Dependent S [id number] [employer] Medig[employer] Part B [id number] Family Dependent S [id number] [employer] [place] Medig[employer] Part B [id number] Family Dependent S [id number] EXCELLUS C [id number] Self [id number] [employer] [employer] [id number] Family Dependent EXCELLUS H [id number] Spouse [id number] [employer]CELLUS BCBS [id number] ORe YND [id number] BS [employer] [employer] [id number] Family Dependent Y [id number] [employer] [employer] [id number] Family Dependent Y [id number] [employer] [employer] [id number] Family Dependent Y [id number] [employer] [employer] [id number] Family Dependent Y [id number] [place] MEDICAID [id number] Liset 7 [id number] [place] EXCHANGE [id number] Liset 7 [id number] [place] EXCHANGE U [id number] Self [id number] [place] I [id number] Self [id number] ANSI-Not a Secondary Insurance [id number] [place] MEDICAID PI PI ANSI-Not a Secondary Insurance [id number] [place] 306/806 [id number] [place] [id number] [place] -[employer] Health Maintenance Organization (HMO) [id number] 800 [id number] Self [id number] ANSI-Not a Secondary Insurance [id number] ANSI-Not a Secondary Insurance [id number] SELF PAY 2 UNAVAILABLE 1 UNAVAILA BLE SELF PAY ONLY [id number] SP [id number] [place] BC[employer] Health Maintenance Organization (HMO) [id number] Family Dependent [id number] [place] 302/307 [id number] [place] [id number] [place] BCBS PI PI ANSI-Not a Secondary Insurance [id number] [place] -[employer] Health Maintenance Organization (HMO) [id number] Self [id number] [place] [employer] Health Maintenance Organization (HMO) [id number] 800 [id number] Self 7 [id number] BC EXC PLANS 1 [id number] ANSI-Not a Secondary Insurance [id number] ANSI-Not a Secondary Insurance [id number] MEDICAID [id number] SP [id number] MEDICAID M [id number] S [id number] MEDICAID [id number] SP [id number] [place] [id number] SP [id number] BCBS [place] PPO 302/307 [id number] [place]2 [id number] [employer] BCBS B [id number] P [id number] BCBS [place] PPO 302/307 [id number] [place]2 [id number] [employer] BCBS Health Maintenance Organization (O) [id number] Family Dependent [place] [id number] SP 7 [id number] EMEDNY [id number] SP [id number] [place] [id number] S [id number] BCBS [place] P[place] 302/307 [id number] WI2 [id number] [place] [id number] SP [id number] BCBS [place] O [id number] U VY [id number] [employer] BCBS P [id number] P KARINE [id number] ANSI-Not a Secondary Insurance [id number] [place] -Exchange Health Maintenance Organization ([facility] [place]) [id number] 800 [id number] Self [id number] ANSI-Not a Secondary Insurance [id number] [place] -Exchange Health Maintenance Organization (O) [id number] 800 [id number] Self [id number] ANSI-Not a Secondary Insurance [id number] ANSI-Not a Secondary Insurance [id number] ANSI-Not a Secondary Insurance [id number] Problems, Conditions, and Diagnoses Code Display Name Description Problem Type Effective Dates Data Source(s) H65.21 [id number] Right chronic serous otitis media Problem 09/20/2020 12:00:00 AM EDT eCW1 ([facility]) Surgeries/Procedures Procedure Description Date Indications Data Source(s) TDAP VACCINE 7/> YR IM 03/06/2021 12:00:00 AM EDT eCW1 ([facility]) PNEUMOCOCCAL POLYSAC VACCINE 23-V 2 />YR SUBQ/IM 03/06 12:00:00 AM EDT eCW1 ([facility]) OFFICE OUTPATIENT VISIT 25 MINUTES 01/23/2021 12:00:00 AM EDT [facility] ([facility]) ECHO TTHRC R-T 2D W/WOM-MODE COMPL SPEC&COLR DOP 01/23 12:00:00 AM EDT [facility] ([facility]) Bronchospasm Evaluation 01/15/2021 12:00:00 AM [facility]T [facility] Plethysmography Determination Lung Volumes & Per Airway Resi st 01/15/2021 12:00:00 AM EDT MED[facility] ([facility], ) DIFFUSING CAPACITY 01/15/2021 12:00:00 AM EDT MED[facility] ([facility]) Spirometry 12/07/2020 12:00:00 AM EDT M EDENT ([facility]) OFFICE OUTPATIENT VISIT 25 MINUTES 12/07/2020 12:00:00 AM EDT [facility] ([facility]) OFFICE OUTPATIENT VISIT 25 MINUTES 11/29/2020 12:00:00 AM EDT [facility] ([facility]) ECG ROUTINE ECG W/LEAST 12 LDS W/I&R 11/16/2020 12:00: 00 AM EDT [facility] ([facility]) OFFICE OUTPATIENT VISIT 25 MINUTES 11/16/2020 12:00:00 AM EDT [facility] ([facility]) ECG ROUTINE ECG W/LEAST 12 LDS W/I&R 10/02/2020 12:00: 00 AM EDT MED[facility] ([facility]) OFFICE OUTPATIENT VISIT 15 MINUTES 10/02/2020 12:00:00 AM EDT [facility] ([facility]) ARTHROCENTESIS ASPIR&/INJECTION MAJOR JT/BURSA 021 12:00:00 AM EDT [facility] ([facility] ) RADEX SHOULDER COMPLETE MINIMUM 2 VIEWS 09/20/2020 12: 00:00 AM EDT MED[facility] ([facility] ) OFFICE OUTPATIENT VISIT 15 MINUTES 09/06/2020 12:00:00 AM EST MED[facility] ([facility], ) ECHO TTHRC R-T 2D W/WOM-MODE COMPL SPEC&COLR DOP 06/26 12:00:00 AM EST [facility] ([facility]) ECG ROUTINE ECG W/LEAST 12 LDS W/I&R 05/12/2020 12:00: 00 AM EST [facility] ([facility]) POCT HEMOGLOBIN A1C, DOCKED <td>POCT HEMOGLOBIN A1C, DOCKED</td><td>Routine</td><td>04/20/2020 12:00 PM EDT</td><td></td><td> </td> 04/20/2020 12:00:00 PM [facility] POCT GLUCOSE, DOCKED <td>POCT GLUCOSE, DOCKED</td ><td>Routine</td><td>04/20/2020 11:58 AM EDT</td><td></td><td> </td> 04/20/2020 11:58:00 AM [facility] Results ID Date Data Source URINE CULTURE 02/14/2021 12:00:00 AM EDT eCW1 ([facility]) Name Value Range Interpretation Code Description Data Renetta rce(s) Supporting Document(s) URINE CULTURE eCW1 ([facility]) ID Date Data Source UA URINALYSIS 02/14/2021 12:00:00 AM EDT eCW1 ([facility]) Name Value Range Interpretation Code Description Data Renetta rce(s) Supporting Document(s) UA URINALYSIS eCW1 ([facility]) ID Date Data Source [id number] 12/07/2020 09:56:00 AM EDT MED[facility] ([facility], ) Name Value Range Interpretation Code Description Data Renetta rce(s) Supporting Document(s) PDFReport Laboratory test result MEDENT ([facility], ) FVC-Pred 4.80 L MED[facility] ([facility]) FVC-Pre 2.82 L [facility] ([facility]) FVC-%Pred-Pre 58 L MED[facility] ([facility], ) FVC-LLN 3.87 L [facility] ([facility]) Fev1-Pred 3.64 L [facility] ([facility]) Fev1-%Pred-Pre 67 L [facility] ([facility]) Fev1-Pre 2.44 L [facility] ([facility]) Fev6-Pre 2.81 L [facility] ([facility]) Fev6-Pred 4.59 L [facility] ([facility]) Fev1-LLN 2.85 L [facility] ([facility]) Fev6-LLN 3.68 L [facility] ([facility]) Fev6-%Pred-Pre 61 L MED[facility] ([facility], ) Eqh4yqs-Knv 87 % [facility] ([facility]) Ars9pvt-%Pred-Pre 114 % MED[facility] ([facility]) Dco9ezf-Qbtq 76 % [facility] ([facility]) Aqp4wpo-Hat 99 % [facility] ([facility]) Lcl7nqx-Pomr 96 % [facility] ([facility]) Kcq6tus-VYW 66 % [facility] ([facility]) FEFMax-Pre 5.43 L/E/sec [facility] ([facility]) FEFMax-Pred 9.30 L/E/sec MED[facility] ([facility]) Jmt1zsr-%Pred-Pre 103 % [facility] ([facility]) Cdw5684-Rvzz 3.02 L/E/sec MED[facility] ([facility]) FEFMax-%Pred-Pre 58 L/E/sec [facility] ([facility]) FEFMax-LLN 6.97 L/E/sec [facility] ([facility]) Ouj4471-DNQ 1.42 L/E/sec [facility] ([facility]) Sep2473-%Pred-Pre 91 L/E/sec [facility] ([facility]) Utj7827-Jsn 2.76 L/E/sec [facility] ([facility]) ExpTime-Pre 7.20 sec [facility] ([facility]) Dpo4dcj2-Evsh 79 % [facility] ([facility]) Yxn2aal8-Kzu 87 % [facility] ([facility]) Fcz3bru4-FAW 70 % [facility] ([facility]) Inf8elf2-%Pred-Pre 110 % [facility] ([facility]) ID Date Data Source [id number] 11/16/2020 03:33:00 PM EDT [facility] [place] Name Value Range Interpretation Code Description Data Renetta rce(s) Supporting Document(s) Natriuretic peptide.B prohormone N-Terminal [Mass/volu me] in Serum or Plasma 94 pg/mL [facility] ([facility]) ID Date Data Source [id number] 11/16/2020 03:33:00 PM EDT [facility] [place] Name Value Range Interpretation Code Description Data Renetta rce(s) Supporting Document(s) Glucose, Fasting 246 mg/dL 70-100 [facility] [place] Blood Urea Nitrogen 16 mg/dL 7-18 [facility] ([facility]) Creatinine For GFR 1.01 mg/dL 0.70-1.30 [facility] ([facility]) Glomerular Filtration Rate Laboratory test result [facility] ([facility]) <content>Units are mL/min/1.73 m2</content>
<content></content>
<content>Chronic Kidney Disease Staging per NKF:</content>
<content></content>
<content>Stage I & II GFR >=60 Normal to Mildly Decreased</content>
<content>Stage III GFR 30- 59 Moderately Decreased</content>
<content>Stage IV GFR 15-29 Severely Decreased</content>
<content>Stage V GFR <15 Very Little GFR Left</content>
<content>ESRD GFR <15 on FINAL INSPECTOR AND TESTER</content>
<content></content> Potassium Serum 4.0 meq/L 3.5-5.1 [facility] ([facility]) Sodium Level 141 meq/L 136-145 [facility] ([facility]) Chloride Level 109 meq/L 98-107 [facility] ([facility]) Anion Gap 4 meq/L 8-16 [facility] ([facility] Carbon Dioxide Level 28 meq/L 21-32 [facility] ([facility]) Calcium Level 9.2 mg/dL 8.5-10.1 [facility] ([facility]) ID Date Data Source [id number] 11/01/2020 11:36:31 AM EDT [facility] Name Value Range Interpretation Code Description Data Renetta rce(s) Supporting Document(s) Progress Note [facility] NDINRp5wYlDOBsSp45/ODIquJQJad2DpZVazBAm1XQxhLVWtK2HcYTR9gK4tZXQ8RYzMPdEiPoLxBOK4 lbm [file] ICAgICAgICAgICAgICAgICAgICAgICAgICAgICAgICAgICAgICAgICAgICAgICAgICAgICAgICAgICAg RVKuDUUzHYTeBU7VKEMrDEOtYVWfCUNoKOYjNDKpYPYeZXTaXYIuZYDwMNEhRVXrGOJqHBKrSFDtQLQk ICAgICAgICAgICAgICAgICAgICAgICAgICAgICAgIC SgXMBxJPFqYPSbKUZrNAVuMUUkXJ5CDBViAPWdKMVeVHKtCHGsWLLtBXOrZDWiUUNpJGSkATLgHPBvYN AgICAgICAgICAgICAgICAgICAgICAgICAgICAgICAgICAgICAgICAgICAgICAgICAgICAgICAgICAgIC BqVD1JRNKcCKFqUHVnPHBcJVWnTEXwMIStUYCrCZDz ICAgICAgICAgICAgICAgICAgICAgICAgICAgICAgICAgICAgICAgICAgICAgICAgICAgICAgICAgICAg DYShAYEtVPPyXFUuUR4QZHCbFVLdQUVoZHRpWLVhCEWsUTUgHLWjBFZkFTXyUSJaSJVkBDUtIPYgYMKt ICAgICAgICAgICAgICAgICAgICAgICAgICAgICAgIC VfHQLaKIStBSTdEYCbBXMlYORzAAWrCF6XSWGbOGYwGNZjNHWnIAXwKBHhLDUgFAOkYXYgWGHcGNDmPJ AgICAgICAgICAgICAgICAgICAgICAgICAgICAgICAgICAgICAgICAgICAgICAgICAgICAgICAgICAgIC OwSMTmYV7WXTEcKMChRSQrWDKnRSWwLRMsHFCnCBJf ICAgICAgICAgICAgICAgICAgICAgICAgICAgICAgICAgICAgICAgICAgICAgICAgICAgICAgICAgICAg XQBcDLUwFRZxQIGtBQXfFD1SWYRnCXMmESAhOYQpCISkCACpMGLxGBFuCXNgKHTzTJKmDQHaQVInWSOf ICAgICAgICAgICAgICAgICAgICAgICAgICAgICAgIC RxUOZuOSXfIICqOYJmRZOuFWOmORArXMEaWM9EGFHcWSSbPRFlMCIsMHDzMZTqPGRzJEHrUXOrLIHhLS AgICAgICAgICAgICAgICAgICAgICAgICAgICAgICAgICAgICAgICAgICAgICAgICAgICAgICAgICAgIC YwFQWmSJJwLS2MRIPtKAAhQQHwAZDqXAGsEZVoUPAj ICAgICAgICAgICAgICAgICAgICAgICAgICAgICAgICAgICAgICAgICAgICAgICAgICAgICAgICAgICAg SNTkFXRxCDDfDYClWORcPRXbFP8RHJ91oUWew2K8ZJBqVO5hbuy/Lh5QXSzisvUnwHNvFG0WCyKaTD4m ur3OMfYiXI0alz9OCHaGJqDsD3C7eNPxMBSbGQICUw SzW60fKWrcRx76GNoaMXWvQdTyNOr3Jn8WNtMrM9wkESQnZwM6KMVyZqE8VJFzFkK7JHDgBoCrCLDfNF ZzPIIjABXLEAB1QYWxDeEaJdQzXZUuBV6YLLIyP803moXyPe4AEu0EGoHvNV2kda1DToWtRMGpBngBUh r0HImbYT7XgXMcfZZiBoPlPVCLZdNoM9fcz4IaPkQt ZSZNEWfnYC4Tk2BriMPxIRo+Jd6EHK1wk0ZqJPvrFgAgPC6wol4DLVuJUfIvL2VpgAbiUPJkr8hjWLJx JW3mgKFdYVA3QQRzitxnwRqzITNyDSKrakpxP0OympbqUNTnAEQwDQ9lJU9mUEZmGDNiCdRnMVZXUZ3F RIRtYPMclGQrTDSdQQVNHV3VRZvkEAL9HGUtthXqfY RqWUvtAD4QWQVnbrKzQqZuCBBFTXc+Nq9OPR8vv3EkSGzyViXeKI7vgv9CNJtVVmOdM1Z1gMDkF2Q7FI opEo0MWXVgGGPzAespVPBDQRgaQH5HDW8bazC7AB7TrVPfALZfCRHvcOXoXTt0H39qaKYcCVnrJG0LQO A+Cristina+Pd7VNWUmHLZaZVGjKeVqQOLXWhYfC6OhC4SD n2FzF6NhOV41rEamipPfLWasIW2EUS0bCIJxSDFFTK5KtLKwhT2trvSoWXGhQRCYZzQxH68eaVHhSDXz EGWgVHMdGa2GWHWcR7WzkyRxzCatxcBnKCRgAWNBSR9DBCtjywUwiWIbfAuzBY35uVqmEJ1DKw3EOmZx TY8ojy3XkCCjGb0KCZQtNY4GUJJaFHHgUHXgWVS0LG MkPqSeBAsfMMXbXQUtGHN1FZDpRYLtOZ4GPdNhXBZvFIRsPReyYJBkNQRmyb9RUCQoGLY0OWjfEyBjTR DlGTKxHGxjXOLlAZVcPFU3FMEdIPUrWV2XBbCuENAnSKW0FcBzRFWrTOLkgc6YQWHmRYZfGSAzLIWsYT SgQKMpJSgoUJHfQER1RBAnKNQvTEEuIR7FQeIfYADu VSeeIuEyXMVsGILhgs2IAZCzWCWoLfS9YoCjIRRyXYUbAPupJJQwPCYaMVAfKLNlMTApVS8UCiCpHGLh WDI9TiiuEROzCMTfoz3CMWCuMYPxHHh2JkQeLCFtCZBgLFbaJFJxYHL0Fxd1LZKiXFVyHL7NFeFhOLRt JHu7CJZbQFZyXIInzl1OZIQhJEHdOCo0MDPyVDEuBH OzSWhbNPQdKTJrJLMpXQJfFNUdDG1XNoDhOMXbAoQ8FYMvHDUcMUXevn9AWPApZGHrAUR0FuWqQNNuTS ArUHjkSIHqHCN0MFH1JIBeVYCmFI7VZsMsTAIeGmPyEJPoYYIcAHErvd9FKHUbOCJiFyY4RiMxAKEmGQ BnUQltBKZeRWW7JXI3IPMhDOYhGH8UVbMbHMXdKpi0 JApvOVElQGYkyg9OCRRcWHVcEqqtCoPwMHDcNJRmGJzmRMWnRZW1XoQ7UYIaMIJzTA8CPvIpNNBaJmn6 JGAcYPMkHYIoff0WKXLkIIJfSXpiLIHmPDClJKReYUpaRSUkTLYlOEPeZAHdEZAeAN7CXtHyLXNtXZXn YTPpZCEtIXZwyf1HJLMrEDI4SPB3EmSdNXIoUWYzOX wzVTKaXCLoJRf8RLRfFYLpBP9XHkXkKXYyOXQtPYOuZXMkABDjtr6GTOYyRCS3PlOuYmErRQJkMRJuSH o0tnDsbZUuOLq9OR9DX1DzstBbRsHDCr5Uu788FGIkFLJcSs5YB9tnIc7pTBEwDTRYYw7PREl4OPZiIk HlJYllVDZsYCXwFhEnFpDvPEX5EQPoREPdOQJ+IDw4 FSI4TBA5GEKlPpWbFsVbXUCoKcAqHJynOIX3ZPC9Ov0yWSTLUw5+AGjjxWYnwNwxJIPSBdLzWLO0AVas GCOKRh3N ID Date Data Source [id number] 11/01/2020 11:36:26 AM EDT [facility] Name Value Range Interpretation Code Description Data Renetta rce(s) Supporting Document(s) Progress Note [facility] DOSQZj7dVcBBBbHm11/XWTjoCZJvu5UlFVajAZv1BGwxGYWiI8RfUQU6xT9sWRS5SZmTMuObTcFxKOJ6 lbm [file] kJHMDD3HHLSnPTsMxJbIvkr7J5IsYI9FEvgf// [file] RGJaWJa4GvMfCdAwPTF8BpKvFS6HTc9LSsT1ISF9dHQhRq8TRzBoIbNBOaMdOZ3LXMa= ID Date Data Source [id number] 09/27/2020 04:17:00 PM EDT [facility] ([facility]) Name Value Range Interpretation Code Description Data Renetta rce(s) Supporting Document(s) Creatinine For GFR 0.88 mg/dL 0.70-1.30 [facility] ([facility]) Blood Urea Nitrogen 19 mg/dL 7-18 [facility] ([facility]) Glucose, Fasting 150 mg/dL 70-100 [facility] ([facility]) Glomerular Filtration Rate Laboratory test result [facility] ([facility]) <content>Units are mL/min/1.73 m2</content>
<content></content>
<content>Chronic Kidney Disease Staging per NKF:</content>
<content></content>
<content>Stage I & II GFR >=60 Normal to Mildly Decreased</content>
<content>Stage III GFR 30- 59 Moderately Decreased</content>
<content>Stage IV GFR 15-29 Severely Decreased</content>
<content>Stage V GFR <15 Very Little GFR Left</content>
<content>ESRD GFR <15 on [employer]</content>
<content></content> Sodium Level 141 meq/L 136-145 [facility]) ID Date Data Source [id number] 09/06/2020 03:50:00 PM EST [facility] ([facility] ) Name Value Range Interpretation Code Description Data Renetta rce(s) Supporting Document(s) Ceruloplasmin [Mass/volume] in Serum or Plasma 26.6 mg/dL 1 6.0-31.0 Normal (applies to non-numeric results) [facility] ([facility] ) Performed at: [facility] [address] [id number] Communications Executive: Js Marcelo MD, Phone: [phone] Performed at: - [facility] [address] [id number] Communications Executive: Santa Blackburn MD, Phone: [phone] ID Date Data Source [id number] 09/06/2020 03:50:00 PM EST [facility]) Name Value Range Interpretation Code Description Data Renetta rce(s) Supporting Document(s) Iron (Fe) 85 ug/dL 65-175 Normal (applies to non-numeric resul ts) [facility] ([facility]) Percent Saturation 30.4 % 19.7-50.0 Normal (applies to non-numer ic results) [facility] ([facility]) Total Iron Binding Capacity 280 ug/dL 250-450 Norm al (applies to non-numeric results) [facility]) ID Date Data Source [id number] 09/06/2020 03:50:00 PM EST [facility] ([facility]) Name Value Range Interpretation Code Description Data Renetta rce(s) Supporting Document(s) Liver-Kidney Microsomal Lelo Laboratory test result 0.0-20.0 Normal (applies to non-numeric results) [facility] ([facility]) Negative 0.0 - 20.0 Equivocal 20.1 - 24.9 Positive >24.9 . LKM type 1 antibodies are detected in patients with autoimmune hepatitis type 2 and in up to 8% of patients with chronic HCV infection. ID Date Data Source [id number] 09/06/2020 03:50:00 PM EST [facility]) Name Value Range Interpretation Code Description Data Renetta rce(s) Supporting Document(s) Cytoplasmic Neutrop AB Anca-C Laboratory test result Normal (applies to non- numeric results) [facility] ([facility]) Perinuclear AB Anca-P Laboratory test result Nor mal (applies to non-numeric results) [facility]) The presence of positive fluorescence ex hibiting P-ANCA or C-ANCA patterns alone is not specific for the diagnosis of Ally's Granulomatosis (WG) or microscopic polyangiitis. Decisions about treatment should not be based solely on ANCA IFA results. The International [employer] Consensus recommends follow up testing of positive sera with both TX- 3 and MPO-ANCA enzyme immunoassays. As m any as 5% serum samples are positive only by EIA. Ref. AM J Clin Pathol 1999;111:507-513. Anca-Atypical Laboratory test result Normal (applies t o non-numeric results) [facility]) The atypical pANCA pattern has been obse rved in a significant percentage of patients with ulcerative colitis, primary sclerosing cholangitis and autoimmune hepatitis. ID Date Data Source [id number] 09/06/2020 03:50:00 PM EST [facility] ([facility]) Name Value Range Interpretation Code Description Data Renetta rce(s) Supporting Document(s) Mitochondria Ab [Units/volume] in Serum Laboratory test result 0 .0-20.0 Normal (applies to non-numeric results) [facility]) Negative 0.0 - 20.0 Equivocal 20.1 - 24.9 Positive >24.9 . Mitochondrial (M2) Antibodies are found in 90-96% of patients with primary biliary cirrhosis. ID Date Data Source [id number] 09/06/2020 03:50:00 PM EST [facility] ([facility]) Name Value Range Interpretation Code Description Data Renetta rce(s) Supporting Document(s) Antinuclear Antibodies Direct Laboratory test result Abnormal (applies to non- numeric results) [facility] ([facility]) SENIOR BIOINFORMATICS SCIENTIST Antibodies 1.1 AI 0.0-0.9 Above high normal [facility] ([facility]) Anti Double Strand-Dna AB 1 IU/ml 0-9 Normal (applies to no n-numeric results) [facility] ([facility]) <content>Negative <5</content>
<content>Equivocal 5 - 9</content>
<content>Positive >9</content>
<content></content> Hernandez Antibodies Laboratory test result 0.0-0.9 Normal ( applies to non-numeric results) [facility] ([facility]) Sjogren's Anti SS-B Laboratory test result 0.0-0.9 Vannessa l (applies to non- numeric results) [facility] ([facility]) Sjogren's Anti SS-A Laboratory test result 0.0-0.9 Vannessa l (applies to non- numeric results) [facility] ([facility] ) Chad Comment Laboratory test result Normal (applies to non- numeric results) [facility] ([facility], ) . Autoantibody Disease Association Condition Frequency [...] (anti-Hernandez) SLE 15 - 30% ------- --------- SENIOR BIOINFORMATICS SCIENTIST Mixed Connective Tissue Disease 95% (U1 nRNP, SLE 30 - 50% anti-ribonucleoprotein) Polymyositis and/or Dermatomyositis 20% -------- --------- Scl-70 (antiDNA Scleroderma (diffuse) 20 - 35% topoisomerase) Crest 13% -------- --------- Christine-1 Polymyositis and/or Dermatomyositis 20 - 40% -------- --------- Centromere B Scleroderma - Crest variant 80% ID Date Data Source [id number] 09/06/2020 03:50:00 PM EST [facility] ([facility], ) Name Value Range Interpretation Code Description Data Renetta rce(s) Supporting Document(s) Tissue transglutaminase IgA Ab [Units/volume] in Serum Labor atory test result 0-3 Normal (applies to non-numeric results) [facility] ([facility], ) Negative 0 - 3 Weak Positive 4 - 10 Positive >10 . Tissue Transglutaminase (tTG) has been identified as the endomysial antigen. Studies have demonstr- ated that endomysial IgA antibodies have over 99% specificity for gluten sensitive enteropathy. IgA [Mass/volume] in Serum or Plasma 99.5 mg/dL 70-400 Normal (applies to non- numeric results) [facility] ([facility], ) 09/13/20 (FriSep 13) 12:58 PM RACHEL RE INDL ok ID Date Data Source [id number] 09/06/2020 03:50:00 PM EST [facility] ([facility]) Name Value Range Interpretation Code Description Data Renetta rce(s) Supporting Document(s) White Blood Count 6.2 10 4.0-10.0 Normal (applies to non-numeri c results) [facility] ([facility]) Red Blood Count 4.31 10 4.30-6.10 Normal (applies to non-numeric results) [facility] ([facility]) Hemoglobin 12.9 g/dL 13.5-17.5 Below low normal [facility] ( [facility]) Mean Corpuscular Hemoglobin 29.9 pg 27.0-33.0 Norm al (applies to non-numeric results) [facility] ([facility]) Hematocrit 38.3 % 42.0-52.0 Below low normal [facility] ( [facility]) Mean Corpuscular Volume 88.9 fl 80.0-96.0 Normal ( applies to non-numeric results) [facility] ([facility]) Red Cell Distribution Width 14.8 % 11.5-14.5 Above high normal [facility] ([facility]) Mean Corpuscular HGB Conc 33.7 g/dL 32.0-36.5 Normal (applies to non-numeric results) [facility] ([facility]) Platelet Count, Automated 234 10 150-450 Normal (applies to non-numeric results) [facility] ([facility]) Neutrophils % 52.8 % 36.0-66.0 Normal (applies to non-numeric re sults) [facility] ([facility]) Lymph % 34.1 % 24.0-44.0 Normal (applies to non-numeric resul ts) [facility]) [place] % 8.0 % 2.0-8.0 Normal (applies to non-numeric resul ts) [facility]) Eos % 3.3 % 0.0-3.0 Above high normal [facility] ([facility]) Baso % 1.0 % 0.0-1.0 Normal (applies to non-numeric resul ts) [facility] ([facility], ) Nucleated Red Blood Cell % 0.0 % 0-0 Normal (applies to n on-numeric results) [facility] ([facility]) Immature Granulocyte % 0.8 % 0-3.0 Normal (applies to non-n umeric results) [facility] ([facility]) Lymph # 2.1 10 1.5-5.0 Normal (applies to non-numeric resul ts) [facility]) Neutrophils # 3.3 10 1.5-8.5 Normal (applies to non-numeric re sults) [facility] ([facility]) [place] # 0.5 10 0.0-0.8 Normal (applies to non-numeric resul ts) [facility] ([facility]) Baso # 0.1 10 0.0-0.2 Normal (applies to non-numeric resul ts) [facility] ([facility]) Eos # 0.2 10 0.0-0.5 Normal (applies to non-numeric resul ts) [facility] ([facility]) ID Date Data Source [id number] 09/06/2020 03:50:00 PM EST [facility] Name Value Range Interpretation Code Description Data Renetta rce(s) Supporting Document(s) Inr 1.02 Normal (applies to non-numeric resul ts) [facility]) THERAPUTIC HUMAN INR VALUES INDICATIONS NORMAL RANGES PROPHYLAXIS/TREATMENT OF: VENOUS THROMBOSIS 2.0-3.0 PULMONARY EMBOLISM 2.0-3.0 PREVENTION OF SYSTEMIC EMBOLISM FROM: TISSUE HEART VALVES 2.0-3.0 ACUTE MYOCARDIAL INFARCTION 2.0-3.0 VALVULAR HEART DISEASE 2.0-3.0 ATRIAL FIBRILLATION 2.0-3.0 MECHANICAL VALVES(HIGH RISK) 2.5-3.5 RECURRENT MYOCARDIAL INFARCTION 2.5-3.5 Prothrombin Time 13.6 s 12.5-14.3 Normal (applies to non-numeric results) [facility] ID Date Data Source [id number] 09/06/2020 03:50:00 PM EST [facility] ([facility]) Name Value Range Interpretation Code Description Data Renetta rce(s) Supporting Document(s) Alt/SGPT 67 U/L 12-78 Normal (applies to non-numeric resul ts) [facility] ([facility], ) Ast/Sgot 16 U/L 7-37 Normal (applies to non-numeric resul ts) [facility] ([facility]) Alkaline Phosphatase 114 U/L 45-117 Normal (applies to non-num sagar results) [facility] ([facility]) Bilirubin,Total 0.7 mg/dL 0.2-1.0 Normal (applies to non-numeric results) [facility] ([facility]) Bilirubin,Direct 0.2 mg/dL 0.0-0.2 Normal (applies to non-numeric results) [facility] ([facility]) Total Protein 6.9 GM/DL 6.4-8.2 Normal (applies to non-numeric re sults) [facility] ([facility]) Albumin/Globulin Ratio 1.3 Normal (applies to non-n umeric results) [facility] ([facility]) Albumin 3.9 GM/DL 3.2-5.2 Normal (applies to non-numeric resul ts) [facility] ([facility]) ID Date Data Source [id number] 09/06/2020 03:50:00 PM EST [facility] ([facility]) Name Value Range Interpretation Code Description Data Renetta rce(s) Supporting Document(s) Hepatitis C Virus Lelo Index Laboratory test result Normal (applies to non- numeric results) [facility]) Hepatitis B Core Antibody Igm Laboratory test result Normal (applies to non- numeric results) [facility] ([facility]) Hepatitis B Surface Antigen Laboratory test result Normal (applies to non- numeric results) [facility] ([facility]) Hepatitis A Antibody Igm Laboratory test result Normal (applies to non-numeric results) [facility] ([facility]) ID Date Data Source [id number] 09/01/2020 03:21:06 PM EST [facility] Name Value Range Interpretation Code Description Data Renetta rce(s) Supporting Document(s) Progress Note [facility] GASNYx9iByBSVbSy84/PFFbaTLOix0OmEAfjFPg7QEnlMROlK9GfNYW3qA1wJQC2NGaBIlNoMxYwYlL3 lbm [file] AgICAgICAgICAgICAgICAgICAgICAgICAgICAgICAgICAgICAgICAgICAgICAgICAgICAgICAgICAgIC AgICAgICAgICAgICANCiAgICAgICAgICAgICAgICAgICAgICAgICAgICAgICAgICAgICAgICAgICAgIC AgICAgICAgICAgICAgICAgICAgICAgICAgICAgICAg ICAgICAgICAgICAgICAgICAgICAgICANCiAgICAgICAgICAgICAgICAgICAgICAgICAgICAgICAgICAg ICAgICAgICAgICAgICAgICAgICAgICAgICAgICAgICAgICAgICAgICAgICAgICAgICAgICAgICAgICAg ICAgICANCiAgICAgICAgICAgICAgICAgICAgICAgIC AgICAgICAgICAgICAgICAgICAgICAgICAgICAgICAgICAgICAgICAgICAgICAgICAgICAgICAgICAgIC AgICAgICAgICAgICAgICANCiAgICAgICAgICAgICAgICAgICAgICAgICAgICAgICAgICAgICAgICAgIC AgICAgICAgICAgICAgICAgICAgICAgICAgICAgICAg ICAgICAgICAgICAgICAgICAgICAgICAgICANCiAgICAgICAgICAgICAgICAgICAgICAgICAgICAgICAg ICAgICAgICAgICAgICAgICAgICAgICAgICAgICAgICAgICAgICAgICAgICAgICAgICAgICAgICAgICAg ICAgICAgICANCiAgICAgICAgICAgICAgICAgICAgIC AgICAgICAgICAgICAgICAgICAgICAgICAgICAgICAgICAgICAgICAgICAgICAgICAgICAgICAgICAgIC AgICAgICAgICAgICAgICAgICANCiAgICAgICAgICAgICAgICAgICAgICAgICAgICAgICAgICAgICAgIC AgICAgICAgICAgICAgICAgICAgICAgICAgICAgICAg ICAgICAgICAgICAgICAgICAgICAgICAgICAgICANCiAgICAgICAgICAgICAgICAgICAgICAgICAgICAg ICAgICAgICAgICAgICAgICAgICAgICAgICAgICAgICAgICAgICAgICAgICAgICAgICAgICAgICAgICAg ICAgICAgICAgICANCiAgICAgICAgICAgICAgICAgIC AgICAgICAgICAgICAgICAgICAgICAgICAgICAgICAgICAgICAgICAgICAgICAgICAgICAgICAgICAgIC AgICAgICAgICAgICAgICAgICAgICANCjw/nREmY4gbpMBthhR4B8imOu4KAo4DVG2yj9UzPBWgPTudvr DySanAVrWnQLMvDcxCLbu9GAfeAH5SwQJaF0AoG4Zz SXgfGW0XZNPgPHUdjZTmIYTkZNGwFuA4CSSxXJglTQ2MmBUmTFlkWXEnSVEyPlZrCFArTMMvUHWlUZNv HLURHHUgUAKzWaMyFVDwHNRkTCnnRFKAOK0OYkKzB7CrvA95OOkBUq2+EQdjqgYqPlsBIsIbZXFlw6Ay EOi2TU2YRJVgPeruw4EfVyZtVXZVCXfmRD3BPIF8OI VnXHUeLl1GTZTyJ741yaJfRD6WCz0EZhEpSU5ngd5HWxIoTVZwGjySWmb1DUkvGO2IfIFpVStPcd9dzi DvriTGl3ThymEidUDOKR7xIDvhBJAXDWflxuSsztm3g31zLUCCTJW6JJJqGrQmXuSuWZLfWxf8BMKMHY tZMdUqH3Rbg6IuWoT5QAZxDkHmNJlaAXOqSrL6LN09 xWioBV8KYVVtDSHaBY80EQYsGEKzIn1PXi2CCsQiLI0kga8DZoFtKNQtRezOXpj0WPglBK9QyASwI5Wk gSChn9lNAsEqR7MQOPP8MIXxZh2UDBGeGdHmPCPrKIspZS5iTJBwEYXAaBinkpK3BY0MIG3kdwTrPL6U YyFpNn8nCa4ORgKjD8YdB8DmKFQcQRYRQVhnCL2SAH fgGY1kUZ4Oe1USqZGqvI8syv1VKLHySZKkHqyrud1TZsdqQ6N6tUgqZVFjBzIxNCTSSAutJZ1CAELyYP I2INJoXRGyPKXFWpNiG86eUQ0FH6Mkt23xHzG3RXXdEzTuDMqzCP55iJmjufDznTKpdRhlMK8PVm7+DQ plbmRvYmoNCnhyZWYNCjAgMzQNCjAwMDAwMDAwMDAg NbQ5ToRaQc3RIVEeXHYvFDEfWrEiTFCrRMBnOGmwMVBuFCWsCJR4FGRwZRCuTI3VVuMwGAAcCNZ0OLhy CQXiSETtbm5QANKhQYXnWMN2SxZnUQZuDTOsWJdlNYLuSCB7SLIjIWLqEWAxNG4AUlBfOAQdHIFoZeFv BZWcWRLzlb7IENVbQRDeZSuyNzAqCWDhPBOwZXajGR IlDQE8UIIiYBGiPQKnUL1OVsDdBZOoGHD0XnSyKAPoEUExje8UFRNwUVSkIje7PKJaNOOtYRYlKRauJV AbKOD3UNUaVPIwWRSgZA4MNnMeITNrNBK7FXDlIWVnPVAtnp8BECGtSEFsWfbeZaBxRSGiVFHvJNvfJA AkXCB2WSJwGJHmJSLnTB8XGvFdVLRnZyV7SHNiUWJp EAGhez0LZKMjVLRgTTeeDZVmHDIfCTJzVRitZAQtZML9InyxIXCqOUFqKP5BJjJbKKEuLbZ9FWtuDFId MAPohu1MIBToZJKpXGa1FBIuMAFlECIpDZlnGAKkHBP8NWS0NHVpIEHvCH1VRoVxOZRtVaOwPmodTXVb OEOwlo8HSFGuKGTcXdK8LlNwMJMkBYLiNSdnNORaLZ R6GPx7TIQmHGIkIB3JGnHpIUMwTxp5HPpsSOJyYAOaxf5TWSVhMTSvBNDgRbEnKYUhSRKtUGsaLAStAJ W2UAEvAXEiVTReXS2VMsGpISJmZkg9SDFqBQRfMAQkxu0DWIVwYTIjOXjhVKIqGTOtRVItTJedEFQxPR XrCQM5NASoBXJnQK0EQmUfPIJfPNG8TBjfMRBiUBJt tx8NVSOoLGE1CKvnYvHzTTOvLYZvEXekDOSuGEZgTQu4LGYoKKLvLF7DClPySYZsBAMuMOEsGPKuEOPr rp0WoEOicXgnbc5SODzYZy7ZaTdqFUA3IIzmBh2yyUElCfQbOIMQYc2JzgOjNWZiWHZHBQchUTQfPJKv WKU4FfCrAIUjVDZ7JIW4RmJ0BLSnNTe0XSSyKUXoSq W0MsF8DEHhPHN2SjZqNmvmHZvwDXHwDFS0KhStGOR6MIV+SG3fCWc+Tr4Pa1LaugQ1ipIbCAt8QeO3Xz 3GCVNSA7JMLg== ID Date Data Source [id number] 09/01/2020 03:21:01 PM [facility] Name Value Range Interpretation Code Description Data Renetta rce(s) Supporting Document(s) Progress Note [facility] IZWVQa7cMiJDWbNi55/QTPeyDWFdn5NfRFqiYNm0PAdgFYYyZ8PoVDN0jZ4wBWT5PYfDOuVcYdVjAeK7 lbm [file] AgICAgICAgICAgICAgICAgICAgICAgICAgICAgICAgICAgICAgICAgICAgICAgICAgICAgICAgICAgIA 0KICAgICAgICAgICAgICAgICAgICAgICAgICAgICAg ICAgICAgICAgICAgICAgICAgICAgICAgICAgICAgICAgICAgICAgICAgICAgICAgICAgICAgICAgICAg BGZgFKScQJKzEG9NHBYqRJKcBTGyQRScVAJiSJJbBJRpZGJjDMZzJJJqYUIlDXPoWSRnRNVvJOEbGGFh ICAgICAgICAgICAgICAgICAgICAgICAgICAgICAgIC RrCMYuGHCmXKUxOIXxSIMwPHRuXJ3WACYaXMZkWVHnOHQiBCItKMFuMSOmSOPgEZXpQEScMSGuBXUsDO AgICAgICAgICAgICAgICAgICAgICAgICAgICAgICAgICAgICAgICAgICAgICAgICAgICAgICAgICAgIC ZxPM8YBQDhJDBwUXXoOTQmUCUhMISnKRQmSBRiJMTz ICAgICAgICAgICAgICAgICAgICAgICAgICAgICAgICAgICAgICAgICAgICAgICAgICAgICAgICAgICAg YUEhXHIfOXZhLSGsHL9RRLIqUYBhQXTzBIHjXBEgXRLsSLNnQVIfJROdJHYxJYUqHKYjWSPhFQTuEIJv ICAgICAgICAgICAgICAgICAgICAgICAgICAgICAgIC FdBIUfSKObWJWxJIIfCOTaMPAoOVLdLN3NQQPmTWRvFQWeIZZoJPVvIACoPMCpPIXfRWCjZLBwRJAwVB AgICAgICAgICAgICAgICAgICAgICAgICAgICAgICAgICAgICAgICAgICAgICAgICAgICAgICAgICAgIC GvJITjRK7LSDEmXEIeOWJcSJHqDJQoYMLcFPWrFMKr ICAgICAgICAgICAgICAgICAgICAgICAgICAgICAgICAgICAgICAgICAgICAgICAgICAgICAgICAgICAg FREaEMEnMQVbEQXjIDXuTK6KBCRdOKXkJLSuZXYiZQIbWUFyATTqARFnIRVpPALyRJNrRBEiJVVnWQFe ICAgICAgICAgICAgICAgICAgICAgICAgICAgICAgIC GcNHIkONFiLCDaHKNnHPKgVJWxXNJtSKInSV2EUNUhRBVdQAViBUJzHSBrEXMbTRMtGYHqTKQhWXIvRM AgICAgICAgICAgICAgICAgICAgICAgICAgICAgICAgICAgICAgICAgICAgICAgICAgICAgICAgICAgIC AoKMAjUSBkAO3KGT11vSRgl0H5EPMaFS1plfi/Pg0K YFfkurGulPHlKB4UNpLbMO3kzc0JDyWiKV5wyt9QDVfDXnCnW4I4cJLdMLUyVZIYZfFaE46oYKykSo18 PJsfOAAtSqXnODa6Af0MPyJlZ3ptERQeFkH8LAUnDrEmFXkaVP0Pw9WcsXGaYDq+Tv6OGO6sv5HwKPvy LeWzYT1ccx5INNdDIqHgM1GbpzR9CTLoYYFuEi9HHM RqDTXmyFGqCsXrMJZFRtZzX3ClaV90QXUDRa5+MDsgkmOvUerFUeUaEQWxy8PqQTc2FG2AATJiEYp7lS TiQNHgN5Hvh6RkLk30URMwOttzUStfRLUUBFh7dmV6FTXRAH1zUCKzMg1zHs7mGKShVGXnPpRdNOQLCN 3UJNGfGYSidWEuPWMnSUEXIC9SLPplKDM0NIPlxxHu pGLoNNjeQO4GVKGmzeFpHqVfWDUWRUy+Tb2JNA6xp5DjHUmtVVBqVQ0xry5LMPjGFdUnC2W2kTUuH9C2 PKhzEt3XRCFwUMSoWhSsSNYWJWswYU3VAY7irlX1GR5HkKWwDWVpKMPodQDpPXe5C85ivVZiNGhgPA6M ICA+Cristina+Ce2LKCByDGQoBUUjQpHhCXVUFaFfI1SmE8 CHp5NwI0WaUH92oIybaoVpRCooFZ1ONU3lXIEfOHUSNC0LwBDpjU8dqzTvMqSnLADAJqVwY68obMIjNU AlVGMkZQMmKt5COHNqZ3LqmqGneDohmqJaPMOyFXQTUM8TNMnbflIekSNwvSecNW56tGuuTB7JQt3HRe SsJO0fot8BvBWoEp0VMTXcZB5YAJNtDDHuIOLoAQT6 VCHsTvLpBXpbMTWrLNYpSNJ6FEOzOKPrTL8YSdRzBDMnLAf7GMjqRZZpBZMmvr3ZXCYpQXCaVMZiUpBo NVSxQUGjJBwsJGZhVGBmRAH1LYPkQKIiIB9VCgWfZXDyHLFwUFceEZJsZPYzkt3NMSIzBSAiDcZpRtZy ZQJzUZYsYFcyRAEqOHQaVejpFLMfMJEvDI9DQvAtTO QyTTF2HjijZUUlBGIarb7ZAGVzIRCqPxC0WeJiOVWwMBWhDSvkAIEaMQX2IpW5EASsLFVoGH8EQwWbSH WtZIO0QIqzWMWmEMBfwr5WYAXgHJAlHELnZEEnARVqJTLzWOpoCMWpWTU9WlF4ZFCkKHNkZR6DJhGrXC UsQJT1XhXvTTJkZGGtlf1BOOPvUTLyEzd0PABkFIPf BQMjGXzqFKKcLFM2LZR9YKYxEYOvVL5PGlCuRZGnEKroIhJvRGYgNDFhmd1GHQWwEFCqOVHfCPMdQYDh XBYaQKdlSCTpYLE4Jpb5EJAbVMXsOV6WAfRySHHzYEi8LpHtZUFzYWVidr0QGTZqGSBkOBp2MuNoZHOo ABSeIOluKSJsGGXtTTSkAAMvBFHqVX5XSbKiSSKoWi Q6SNIlDXUcYBGvwb5IYUPpFXPxMIUbBRQaYDAaAPDzJNa2qaLlzKFeARg7FD4KY8EvizViKjMWCo0Yi5 85ZTH7WLDrTt5BL2yxGv5eYYYgPJGFSp5LJSt5UvGaBWTrHLNoBnK6SRj6DNAiQ1SeHYXjEOWvGjOaZP E+JZd1HGP1SBEyFAGfCNahVgYdSHHcYFGeONGdE4P4 LAEwVT4yICSOIy0+GBkhlKNnfEsnHHWXSjElECzyDEkbSOTUXk2P ID Date Data Source [id number] 07/13/2020 01:35:00 PM EST [facility] Name Value Range Interpretation Code Description Data Renetta rce(s) Supporting Document(s) Respiratory pathogens identified [Type] in Nasopharynx by Probe and target amplification method SARS-CoV-2 (COVID 19) [facility] This lab was ordered by [facility] a nd reported by [facility]. ID Date Data Source [id number] 07/04/2020 12:00:00 AM EST [facility] Name Value Range Interpretation Code Description Data Renetta rce(s) Supporting Document(s) Carestart Rapid COVID Antigen Test [facility] This lab was reported by [facility]. ID Date Data Source [id number] 06/04/2020 03:54:00 PM EST [facility] Name Value Range Interpretation Code Description Data Renetta rce(s) Supporting Document(s) SARS-CoV-2 (COVID 19) [facility] This lab was ordered by [facility] a nd reported by [facility]. ID Date Data Source CBC with Differential 05/24/2020 12:00:00 AM EST eCW1 ([facility]) Name Value Range Interpretation Code Description Data Renetta rce(s) Supporting Document(s) 5.3 4.0-10.0 WHITE BLOOD COUNT eCW1 ([facility]) 4.70 4.30-6.10 RED BLOOD COUNT eCW1 ([facility]) 14.2 13.5-17.5 HEMOGLOBIN eCW1 ([facility]) 33.8 32.0-36.5 MEAN CORPUSCULAR HGB CONC eCW1 ([facility]) 42.0 42.0-52.0 HEMATOCRIT eCW1 ([facility]) 30.2 27.0-33.0 MEAN CORPUSCULAR HEMOGLOB IN eCW1 ([facility]) 89.4 80.0-96.0 MEAN CORPUSCULAR VOLUME e CW1 ([facility]) 8.8 0.0-5.0 MONO % eCW1 ([facility] hospital) 12.5 11.5-14.5 RED CELL DISTRIBUTION WID TH eCW1 ([facility]) 51.8 36.0-66.0 NEUTROPHILS % eCW1 ([facility]) 34.5 24.0-44.0 LYMPH % eCW1 ([facility] access hospital) 184 150-450 PLATELET COUNT, AUTOMATED eCW1 ([facility]) 2.8 1.5-8.5 NEUTROPHILS # eCW1 ([facility]) 0.9 0.0-1.0 BASO % eCW1 ([facility] access hospital) 0.5 0.0-0.8 MONO # eCW1 (Critical access hospital) 3.6 0.0-3.0 EOS % eCW1 (Critical access hospital) 1.8 1.5-5.0 LYMPH # eCW1 (Critical access hospital) 0.1 0.0-0.2 BASO # eCW1 (Critical access hospital) 0.2 0.0-0.5 EOS # eCW1 (Critical access hospital) ID Date Data Source [id number] 05/24/2020 12:00:00 AM EST eCW1 ([facility]) Name Value Range Interpretation Code Description Data Renetta rce(s) Supporting Document(s) Hemoglobin A1c/Hemoglobin.total in Blood 6.7 HEMOGLOBIN A1c eCW1 ([facility]) ID Date Data Source LIPID PANEL (CARDIAC RISK) 05/24/2020 12:00:00 AM EST eCW1 ( [facility]) Name Value Range Interpretation Code Description Data Renetta rce(s) Supporting Document(s) Triglyceride [Mass/volume] in Serum or Plasma by calculation 84 <150 TRIGLYCERIDES LEVEL eCW1 ([facility]) Cholesterol in HDL [Moles/volume] in Serum or Plasma 35 >40 HDL CHOLESTEROL eCW1 ([facility]) Cholesterol [Moles/volume] in Serum or Plasma 119 <200 CHOLESTEROL LEVEL eCW1 ([facility]) 84 NON-HDL-C eCW1 (Critical access hospital) Cholesterol in LDL [Mass/volume] in Serum or Plasma by calculation 67 <100 LDL CHOLESTEROL eC1 ([facility]) 3.400 <5 CHOLESTEROL RISK RATIO eCW1 ([facility]) ID Date Data Source FREE T4 & TSH PANEL 05/24/2020 12:00:00 AM EST eCW1 ([facility]) Name Value Range Interpretation Code Description Data Renetta rce(s) Supporting Document(s) 2.800 0.358-3.740 eCW1 ([facility]) 1.02 0.76-1.46 eCW1 ([facility] hospital) ID Date Data Source Comprehensive Metabolic Profile (CMP) 05/24/2020 12:00:00 AM EST eCW1 ([facility]) Name Value Range Interpretation Code Description Data Renetta rce(s) Supporting Document(s) 109 70-100 GLUCOSE, FASTING eCW1 ([facility]) 14 7-18 BLOOD UREA NITROGEN eCW1 ([facility]) > 60.0 >56 GLOMERULAR FILTRATION RATE eCW 1 ([facility]) 110 98-107 CHLORIDE LEVEL eCW1 ([facility]) 1.00 0.70-1.30 CREATININE FOR GFR eCW1 ([facility]) 4.1 3.5-5.1 POTASSIUM SERUM eCW1 ([facility]) 143 136-145 SODIUM LEVEL eCW1 ([facility]) 8.6 8.5-10.1 CALCIUM LEVEL eCW1 ([facility]) 10 7-37 AST/SGOT eCW1 ([facility]) 28 21-32 CARBON DIOXIDE LEVEL eCW1 ([facility]) 27 12-78 ALT/SGPT eCW1 (Critical access hospital) 3.8 3.2-5.2 ALBUMIN eCW1 (Critical access hospital) 1.4 ALBUMIN/GLOBULIN RATIO eCW1 ([facility]) 0.7 0.2-1.0 BILIRUBIN,TOTAL eCW1 ([facility]) 6.6 6.4-8.2 TOTAL PROTEIN eCW1 ([facility]) 93 45-117 ALKALINE PHOSPHATASE eCW1 ([facility]) ID Date Data Source [id number] 04/20/2020 04:48:22 PM EDT [facility] Name Value Range Interpretation Code Description Data Renetta rce(s) Supporting Document(s) Progress Note [facility] CISLOu1qYvONPcUq19/GBWheXRToo4ZdWOcjHIh4JBxvHHLsA9HfVEN3fB6sYFX1NNwZWsUsPuKsKPV2 lbm [file] ICAgICAgICAgICAgICAgICAgICAgICAgICAgICAgIC AgICAgICAgICAgICAgICAgICAgICAgICAgICAgICAgDQogICAgICAgICAgICAgICAgICAgICAgICAgIC AgICAgICAgICAgICAgICAgICAgICAgICAgICAgICAgICAgICAgICAgICAgICAgICAgICAgICAgICAgIC AgICAgICAgICAgICAgDQogICAgICAgICAgICAgICAg ICAgICAgICAgICAgICAgICAgICAgICAgICAgICAgICAgICAgICAgICAgICAgICAgICAgICAgICAgICAg ICAgICAgICAgICAgICAgICAgICAgICAgDQogICAgICAgICAgICAgICAgICAgICAgICAgICAgICAgICAg ICAgICAgICAgICAgICAgICAgICAgICAgICAgICAgIC AgICAgICAgICAgICAgICAgICAgICAgICAgICAgICAgICAgDQogICAgICAgICAgICAgICAgICAgICAgIC AgICAgICAgICAgICAgICAgICAgICAgICAgICAgICAgICAgICAgICAgICAgICAgICAgICAgICAgICAgIC AgICAgICAgICAgICAgICAgDQogICAgICAgICAgICAg ICAgICAgICAgICAgICAgICAgICAgICAgICAgICAgICAgICAgICAgICAgICAgICAgICAgICAgICAgICAg ICAgICAgICAgICAgICAgICAgICAgICAgICAgDQogICAgICAgICAgICAgICAgICAgICAgICAgICAgICAg ICAgICAgICAgICAgICAgICAgICAgICAgICAgICAgIC AgICAgICAgICAgICAgICAgICAgICAgICAgICAgICAgICAgICAgDQogICAgICAgICAgICAgICAgICAgIC AgICAgICAgICAgICAgICAgICAgICAgICAgICAgICAgICAgICAgICAgICAgICAgICAgICAgICAgICAgIC AgICAgICAgICAgICAgICAgICAgDQogICAgICAgICAg ICAgICAgICAgICAgICAgICAgICAgICAgICAgICAgICAgICAgICAgICAgICAgICAgICAgICAgICAgICAg ICAgICAgICAgICAgICAgICAgICAgICAgICAgICAgDQogICAgICAgICAgICAgICAgICAgICAgICAgICAg ICAgICAgICAgICAgICAgICAgICAgICAgICAgICAgIC QgQSMyHKVcLRUnMEGdDIGwIOTbXFHeRDQpBJFfCKFySETbNQZuLHXcBOp9Y7ugSTRuTDFpVS3qTVk5Mf 8+DAnQOsCbBYW9mnNjzP5PBM9kt0XcCLnoXBPgb8VhOLm1RI0RXHTiWIetWW1MOWrsnx0GHKEnUCMdyD ORi4twNkNiBSQ8LZSxTmqpPP0QWGRnV2iopcQeHFTx XGJFFWceELVXRUxoJKDQWFRhICLjBpWyNoJgBIYsWHIdZZKZVKD9AFEbZiLeXIKnGZBwMmOsBPZLCV9P HkWwS1KepW52QQsRLv0+YFoflwDzOrdXSrK3EJNuq2SiBGm4SR0RUPMkYrjsn1AyWrxfMZMQVDkyPH8C NGN3VFX2DCFgQc2NHLNzN624qxAiFG7RVv6SNpVaKX 4pbb0BWdtsEGMpUjjRXwb9DEtrMC1MtVBxYLoGqj5pltOnibGJk8TbcwBzwULRHA0vZSkqIGUERXE9cf dwiMolOOJyXGClVWUnHTCvZnErQXRbKNgkBBAAALdQXrGwB1Yhx6BuLlF6DDZbNsOuIUqnCOUeDvS7VY 96tLcoOY3UBGZvKZBwDB16AGL5NFHrEf5LJi2FWgAd EY8cei3RCODbONRsRshKZvk7HEglBV0ZfTKzW1HspFKwd9jBJyMyF9TRQVB4NPLlEj6YAVXzGeIeZQZf UIedUH6aHVSgHYUEyFjqaoI0XS8JWX0hhgMqYU7OIjCvDr8zUe0VAiHgM4BkY5KpJYUgYEEGBYhzYZ1O VRzsUN5aQZ9Kg6GNyTMpsV8wsw4IJGJvANUeCmhdug 3JZhplK6W3rSotXXSmNmwsVGCTXBwbBU9ZLPVlKNP7IWCqWoXgUAUZFjTrM24wJF5SD3Srr14rFvB9VL JcIsMjFMduET78oSsvoxWdeJIpnXafUB3JZb2+DQplbmRvYmoNCnhyZWYNCjAgNDENCjAwMDAwMDAwMD AyZeX5UaPuTn0OSKAoJDGiNMTfVtPfVKNaTZXdPAnm PMIoKGN2JJwjBVZmEFEmDE0JXvCyLUBfJPj1RYvlYSAmSKBlab2ZNAOwFSSpGGN3CrCnVRClKFMgXOrf JZViNQB3YXn8RFApNVAzQA5LWhHmMMDoJKK4EJrrVWYaIQSplk2PAERaJMWvTEB1RrFvZILgUHEgPWup KLGeMZN7PInqVFLlCUFcGD9CAxBdVWPeUUSmEWLlMT YnYOUimi4WXHJkPOQnIFX8HIZcUVIoYJQdMPmoJVSmLVF4CSK4KUXlJVKqGR5WRkSxYONgNUK5UbHwUO OfESBnqm6TCZUsNPRpCAWrIxKsLIVeVVMnHIuuXCBkMGU5FtElWKZkPFFaYA6EBfBgLVRwPhK8ShxpUQ YgBXTyjm7YVRWbNNNsAFP9EYEeKVZeEUZoGYopFJPp DRNqGDChIAFhNBSbAE6WTqCtLUQqKqChEACvDOXnNOIhbw9JLGNeNWMwRabnNJMfKYPuQVDnRTclLYOk BBD1FSY6WBVsLMEuGN1EGgBkJEHgImf5AUEuQKOzGPOdjm3HMLUpENCoWZA8XAUjUWSoZAZbFUvpMZDn AXFtSaUrYRIwFPDlKI9MXfYpKYZbMrK8WQclOGGbOW Lypp6NLJCaHJNvZEQaPWGoNKXnWRZhCIlgBQWmCZCsFRanRLNcOZCfEF7IMnFaVOGaOzWeADCmPKZtOW Kjul6MJKZaXFOsJvK6RFEnMDVjHQBkHTwrHQMkZWSwFMMyLXSbYWDvBQ6BAiMdXGCpMHNyXiXsTBXsHE Lvlk0GIUXwRRT6CEO9TFWgNBLpDROtLRtuSFLaVTF2 LUh5PIIfZAOgMQ4DHhMxLDGdIIM0UKFpOEIhMBQrgn6JRKXdVHL1XQA5VEAeMCDsQRNmFOdxXDOhQAK3 CExpHRDfNBDeLN0KHeFmOGIuDJVpKQRuEXWyMVJica9YAKTtPTL8GgW9GmGiUBGxSGYdHMxgYVAlZLT8 KGJ6AEUwTSCoEB6CErNfHLMpDLbfOxDdXNOwMZZcmw 5WHFCmCWT5POG8MhIjVKOmOHNcASk4qpYgtRBkFJq7AN2VP3NbtvXjVWJEQf0Gm880YBPrINMeDs7SL3 rvIj6sPODgCALLRc5AAGx8MXFxVDoyIYPaROD2ExD5GmM0XLPmXCl0CWF6MxOzSGC+SHfoERR6JQW5DD CfYeJzDasoOEteXxL0QFdcEOf2JjW0Dr6pGBJKVd8+FBxrwQFdpWvzYTTYOlD8YRX3HKgwIOPELo1H ID Date Data Source [id number] 04/20/2020 12:13:55 PM EDT [facility] Name Value Range Interpretation Code Description Data Renetta rce(s) Supporting Document(s) Hemoglobin A1c/Hemoglobin.total in Blood 8.5 % 4.0-6.[address] [facility] Glucose mean value [Mass/volume] in Blood Estimated fr om glycated hemoglobin 197 mg/dL <[address] [facility] ID Date Data Source [id number] 04/20/2020 12:09:45 PM EDT [facility] Name Value Range Interpretation Code Description Data Renetta rce(s) Supporting Document(s) Glucose [Mass/volume] in Capillary blood by Glucometer 303 mg/dL 70- [address] [facility] ID Date Data Source [id number] 04/20/2020 11:24:00 AM EDT [facility] ([facility] Name Value Range Interpretation Code Description Data Renetta rce(s) Supporting Document(s) Hemoglobin A1c/Hemoglobin.total in Blood 8.5 [facility] ([facility]) Procedure Social History Code Duration Value Status Description Data Source(s ) Smoking 03/06/2021 12:00:00 AM EDT Never Smoker completed Never S moker eCW1 ([facility]) Smoking 02/14/2021 12:00:00 AM EDT Never Smoker completed Never S moker eCW1 ([facility]) Smoking 02/14/2021 12:00:00 AM EDT Never Smoker completed Never S moker eCW1 ([facility]) Smoking 01/23/2021 12:00:00 AM EDT Never Smoked Cigarettes com pleted Never Smoked Cigarettes MED[facility] ([facility], ) Smoking 11/16/2020 12:00:00 AM EDT Patient has never smoked co mpleted Patient has never smoked MED[facility] ([facility]) Alcohol intake 11/01/2020 12:00:00 AM EDT Current drinker of al cohol (finding) completed Current drinker of alcohol (finding) [facility] Tobacco use and exposure 11/01/2020 12:00:00 AM EDT Current user co mpleted Current user [facility] Smoking 11/01/2020 12:00:00 AM EDT Never smoker completed Never s [facility] Smoking 09/20/2020 12:00:00 AM EDT Never Smoker completed Never S moker eCW1 ([facility]) Smoking 09/20/2020 12:00:00 AM EDT Never Smoker completed Never S moker eCW1 ([facility]) Smoking 09/20/2020 12:00:00 AM EDT Never Smoker completed Never S moker eCW1 ([facility]) Smoking 09/20/2020 12:00:00 AM EDT Never Smoker completed Never S moker eCW1 ([facility]) Smoking 09/20/2020 12:00:00 AM EDT Patient has never smoked co mpleted Patient has never smoked [facility] ([facility]) Smoking 09/20/2020 12:00:00 AM EDT Never Smoker completed Never S moker eCW1 ([facility]) Alcohol intake 09/01/2020 12:00:00 AM EST Current drinker of al cohol (finding) completed Current drinker of alcohol (finding) [facility] Smoking 08/23/2020 12:00:00 AM EST Never Smoker completed Never S moker eCW1 ([facility]) Smoking 08/23/2020 12:00:00 AM EST Never Smoker completed Never S moker eCW1 ([facility]) Smoking 08/23/2020 12:00:00 AM EST Never Smoker completed Never S moker eCW1 ([facility]) Smoking 07/31/2020 12:00:00 AM EST Never Smoker completed Never S moker eCW1 ([facility]) Smoking 07/31/2020 12:00:00 AM EST Never Smoker completed Never S moker eCW1 ([facility]) Smoking 07/31/2020 12:00:00 AM EST Never Smoker completed Never S moker eCW1 ([facility]) Smoking 06/15/2020 12:00:00 AM EST Never Smoker completed Never S moker eCW1 ([facility]) Smoking 06/15/2020 12:00:00 AM EST Never Smoker completed Never S moker eCW1 ([facility]) Smoking 06/15/2020 12:00:00 AM EST Never Smoker completed Never S moker eCW1 ([facility]) Smoking 06/15/2020 12:00:00 AM EST Never Smoker completed Never S moker eCW1 ([facility]) Smoking 06/15/2020 12:00:00 AM EST Never Smoker completed Never S moker eCW1 ([facility]) Smoking 06/15/2020 12:00:00 AM EST Never Smoker completed Never S moker eCW1 ([facility]) Smoking 06/15/2020 12:00:00 AM EST Never Smoker completed Never S moker eCW1 ([facility]) Smoking 06/15/2020 12:00:00 AM EST Never Smoker completed Never S moker eCW1 ([facility]) Smoking 06/15/2020 12:00:00 AM EST Never Smoker completed Never S moker eCW1 ([facility]) Smoking 06/15/2020 12:00:00 AM EST Never Smoker completed Never S moker eCW1 ([facility]) Smoking 06/15/2020 12:00:00 AM EST Never Smoker completed Never S moker eCW1 ([facility]) Smoking 06/15/2020 12:00:00 AM EST Never Smoker completed Never S moker eCW1 ([facility]) Smoking 06/15/2020 12:00:00 AM EST Never Smoker completed Never S moker eCW1 ([facility]) Smoking 06/15/2020 12:00:00 AM EST Never Smoker completed Never S moker eCW1 ([facility]) Smoking 05/24/2020 12:00:00 AM EST Never Smoker completed Never S moker eCW1 ([facility]) Smoking 05/24/2020 12:00:00 AM EST Never Smoker completed Never S moker eCW1 ([facility]) Smoking 05/24/2020 12:00:00 AM EST Never Smoker completed Never S moker eCW1 ([facility]) Smoking 05/24/2020 12:00:00 AM EST Never Smoker completed Never S moker eCW1 ([facility]) Vital Signs ID Date Data Source UNK Name Value Range Interpretation Code Description Data Source(s) Body weight 115.72 kg 115.72 kg eCW1 ([facility]) Body weight 255.12 [lb_av] 255.12 [lb_av] eCW1 ([facility]) Heart rate 78 /min 78 /min eCW1 ([facility]) Respiratory rate 18 /min 18 /min eCW1 ([facility]) Body temperature 98.3 [degF] 98.3 [degF] eCW1 ( [facility]) Systolic blood pressure 140 mm[Hg] 140 mm[Hg] e CW1 ([facility]) Diastolic blood pressure 90 mm[Hg] 90 mm[Hg] eCW1 ([facility]) Body mass index (BMI) [Ratio] 35.58 kg/m2 35.58 kg/m2 eCW1 ([facility]) Body height 71 [in_i] 71 [in_i] eCW1 ([facility]) Body weight 257 [lb_av] 257 [lb_av] eCW1 ([facility]) Body weight 116.57 kg 116.57 kg eCW1 ([facility]) Body height 71 [in_i] 71 [in_i] eCW1 ([facility]) Body mass index (BMI) [Ratio] 35.84 kg/m2 35.84 kg/m2 eCW1 ([facility]) Heart rate 81 /min 81 /min eCW1 ([facility]) Respiratory rate 18 /min 18 /min eCW1 ([facility]) Body temperature 97.4 [degF] 97.4 [degF] eCW1 ( [facility]) Systolic blood pressure 150 mm[Hg] 150 mm[Hg] e CW1 ([facility]) Diastolic blood pressure 84 mm[Hg] 84 mm[Hg] eCW1 ([facility]) Systolic blood pressure 124 mm[Hg] 124 mm[Hg] M EDENT ([facility], ) Diastolic blood pressure 78 mm[Hg] 78 mm[Hg] MED[facility] ([facility], ) Heart rate 78 /min 78 /min [facility] ([facility], ) Body weight 117.482 kg 117.482 kg MED[facility] ([facility], ) Oxygen saturation in Arterial blood by Pulse oximetry 96 % 96 % [facility] ([facility], ) Body temperature 98.0 [degF] 98.0 [degF] [facility] ([facility]) 97.3 Body height 70 [in_i] 70 [in_i] [facility] ([facility]) 5'10" Body weight 259.00 [lb_av] 259.00 [lb_av] [facility] T ([facility]) Body surface area Derived from formula 2.33 m2 2.33 m2 [facility] ([facility]) Body mass index (BMI) [Ratio] 37.2 kg/m2 37.2 k g/m2 [facility] ([facility]) [place] body weight 166 [lb_av] 166 [lb_av] [facility] T ([facility]) Body height 70 [in_i] 70 [in_i] [facility] ([facility]) 5'10" Oxygen saturation in Arterial blood by Pulse oximetry 96 % 96 % [facility] ([facility]) Heart rate 69 /min 69 /min [facility] ([facility]) [place] body weight 166 [lb_av] 166 [lb_av] [facility] T ([facility]) Body mass index (BMI) [Ratio] 37.0 kg/m2 37.0 k g/m2 [facility] ([facility]) Body surface area Derived from formula 2.33 m2 2.33 m2 [facility] ([facility]) Body weight 117.029 kg 117.029 kg [facility] ([facility]) Body weight 258.00 [lb_av] 258.00 [lb_av] [facility] T ([facility]) Oxygen saturation in Arterial blood by Pulse oximetry 96 % 96 % [facility] ([facility]) Body height 70 [in_i] 70 [in_i] [facility] ([facility]) 5'10" Body weight 258.00 [lb_av] 258.00 [lb_av] [facility] T ([facility]) Body mass index (BMI) [Ratio] 37.0 kg/m2 37.0 k g/m2 [facility] ([facility]) [place] body weight 166 [lb_av] 166 [lb_av] [facility] T ([facility]) Body weight 117.029 kg 117.029 kg [facility] ([facility]) Body surface area Derived from formula 2.33 m2 2.33 m2 [facility] ([facility]) Systolic blood pressure 170 mm[Hg] 170 mm[Hg] [facility] ([facility]) Diastolic blood pressure 80 mm[Hg] 80 mm[Hg] [facility] ([facility]) Body height 70 [in_i] 70 [in_i] [facility] ([facility]) 5'10" Body weight 114.307 kg 114.307 kg [facility] ([facility]) Body surface area Derived from formula 2.30 m2 2.30 m2 [facility] ([facility]) Body weight 252.00 [lb_av] 252.00 [lb_av] [facility] T ([facility]) Body mass index (BMI) [Ratio] 36.2 kg/m2 36.2 k g/m2 [facility] ([facility]) [place] body weight 166 [lb_av] 166 [lb_av] [facility] T ([facility]) Systolic blood pressure 174 mm[Hg] 174 mm[Hg] [facility] ([facility]) Diastolic blood pressure 86 mm[Hg] 86 mm[Hg] [facility] ([facility]) Diastolic blood pressure--sitting 80 mm[Hg] 80 mm[Hg] [facility] ([facility]) Ra, large cuff Body height 71 [in_i] 71 [in_i] [facility] ([facility]) 5'11" Body mass index (BMI) [Ratio] 34.6 kg/m2 34.6 k g/m2 [facility] ([facility]) Heart rate 91 /min 91 /min [facility] ([facility]) Systolic blood pressure--sitting 148 mm[Hg] 148 mm[Hg] [facility] ([facility]) Ra, large cuff Body weight 248.00 [lb_av] 248.00 [lb_av] MEDEN T ([facility]) Body height 71 [in_i] 71 [in_i] [facility] ([facility] 5'11" Body mass index (BMI) [Ratio] 34.4 kg/m2 34.4 k g/m2 [facility] ([facility]) Systolic blood pressure--sitting 144 mm[Hg] 144 mm[Hg] [facility] ([facility]) Ra, large cuff Diastolic blood pressure--sitting 82 mm[Hg] 82 mm[Hg] [facility] ([facility]) Ra, large cuff Body weight 247.00 [lb_av] 247.00 [lb_av] MEDEN T ([facility]) Body temperature 97.5 [degF] 97.5 [degF] [facility] ([facility]) Body height 69.5 [in_i] 69.5 [in_i] [facility] ([facility]) 5'9.50" Body weight 246.50 [lb_av] 246.50 [lb_av] MEDEN T ([facility]) Body mass index (BMI) [Ratio] 35.9 kg/m2 35.9 k g/m2 [facility] ([facility] ) Body weight 247 [lb_av] 247 [lb_av] eCW1 ([facility]) Body height 71 [in_i] 71 [in_i] eCW1 ([facility]) Body mass index (BMI) [Ratio] 34.45 kg/m2 34.45 kg/m2 eCW1 ([facility]) Heart rate 78 /min 78 /min eCW1 ([facility]) Respiratory rate 18 /min 18 /min eCW1 ([facility]) Body temperature 98.1 [degF] 98.1 [degF] eCW1 ( [facility]) Systolic blood pressure 155 mm[Hg] 155 mm[Hg] e CW1 ([facility]) Diastolic blood pressure 73 mm[Hg] 73 mm[Hg] eCW1 ([facility]) [place] body weight 166 [lb_av] 166 [lb_av] MEDEN T ([facility]) Body mass index (BMI) [Ratio] 36.0 kg/m2 36.0 k g/m2 [facility] ([facility]) Body surface area Derived from formula 2.30 m2 2.30 m2 [facility] ([facility]) Body weight 113.854 kg 113.854 kg [facility] ([facility]) Systolic blood pressure 154 mm[Hg] 154 mm[Hg] M EDENT ([facility]) Diastolic blood pressure 73 mm[Hg] 73 mm[Hg] [facility] Body height 70 [in_i] 70 [in_i] [facility] ([facility]) 5'10" Body weight 251.00 [lb_av] 251.00 [lb_av] MED[facility] T ([facility]) Body weight 239 [lb_av] 239 [lb_av] eCW1 ([facility]) Body height 71 [in_i] 71 [in_i] eCW1 ([facility]) Body mass index (BMI) [Ratio] 33.33 kg/m2 33.33 kg/m2 W1 ([facility]) Heart rate 88 /min 88 /min eCW1 ([facility]) Respiratory rate 20 /min 20 /min eCW1 ([facility]) Body temperature 98.3 [degF] 98.3 [degF] eCW1 ( [facility]) Systolic blood pressure 145 mm[Hg] 145 mm[Hg] e CW1 ([facility]) Diastolic blood pressure 76 mm[Hg] 76 mm[Hg] eCW1 ([facility]) Body weight 231 [lb_av] 231 [lb_av] eCW1 ([facility]) Body height 71 [in_i] 71 [in_i] eCW1 ([facility]) Body mass index (BMI) [Ratio] 32.21 kg/m2 32.21 kg/m2 W1 ([facility]) Heart rate 78 /min 78 /min eCW1 ([facility]) Respiratory rate 20 /min 20 /min eCW1 ([facility]) Body temperature 97.9 [degF] 97.9 [degF] eCW1 ( [facility]) Systolic blood pressure 126 mm[Hg] 126 mm[Hg] e CW1 ([facility]) Diastolic blood pressure 66 mm[Hg] 66 mm[Hg] eCW1 ([facility]) Respiratory rate 16 /min 16 /min eCW1 ([facility]) Diastolic blood pressure 68 mm[Hg] 68 mm[Hg] eCW1 ([facility]) Body weight 263 [lb_av] 263 [lb_av] eCW1 ([facility]) Body height 71 [in_i] 71 [in_i] eCW1 ([facility]) Systolic blood pressure 138 mm[Hg] 138 mm[Hg] e CW1 ([facility]) Body temperature 96.8 [degF] 96.8 [degF] eCW1 ( [facility]) Body mass index (BMI) [Ratio] 36.68 kg/m2 36.68 kg/m2 eCW1 ([facility]) Heart rate 69 /min 69 /min eCW1 ([facility]) Body weight 261 [lb_av] 261 [lb_av] eCW1 ([facility]) Body height 71 [in_i] 71 [in_i] eCW1 ([facility]) Body mass index (BMI) [Ratio] 36.40 kg/m2 36.40 kg/m2 eCW1 ([facility]) Heart rate 67 /min 67 /min eCW1 ([facility]) Respiratory rate 16 /min 16 /min eCW1 ([facility]) Body temperature 97.1 [degF] 97.1 [degF] eCW1 ( [facility]) Systolic blood pressure 124 mm[Hg] 124 mm[Hg] e CW1 ([facility]) Diastolic blood pressure 78 mm[Hg] 78 mm[Hg] eCW1 ([facility]) Diastolic blood pressure--sitting 78 mm[Hg] 78 mm[Hg] FLIP ([facility]) large cuff, Ra Body weight 261.00 [lb_av] 261.00 [lb_av] MEDEN T ([facility]) Body height 71 [in_i] 71 [in_i] [facility] ([facility]) 5'11" Body mass index (BMI) [Ratio] 36.4 kg/m2 36.4 k g/m2 [facility] ([facility]) Heart rate 61 /min 61 /min [facility] ([facility]) Systolic blood pressure--sitting 140 mm[Hg] 140 mm[Hg] MED[facility] ([facility]) large cuff, Ra Systolic blood pressure 124 mm[Hg] 124 mm[Hg] [facility] Diastolic blood pressure 68 mm[Hg] 68 mm[Hg] [facility] ([facility]) Heart rate 65 /min 65 /min [facility] ([facility]) Oxygen saturation in Arterial blood by Pulse oximetry 96 % 96 % [facility] ([facility]) Body temperature 97.1 [degF] 97.1 [degF] [facility] ([facility]) Body height 70 [in_i] 70 [in_i] [facility] ([facility]) 5'10" Body weight 263.00 [lb_av] 263.00 [lb_av] MEDEN T ([facility]) Body mass index (BMI) [Ratio] 37.7 kg/m2 37.7 k g/m2 [facility] ([facility]) Body weight 119.297 kg 119.297 kg [facility] ([facility]) ID Date Data Source [id number] 11/01/2020 11:36:31 AM [facility] Name Value Range Interpretation Code Description Data Source(s) WEIGHT RECORDED 240 lb 240 lb [facility] ID Date Data Source [id number] 04/24/2020 10:52:15 AM [facility] Name Value Range Interpretation Code Description Data Source(s) WEIGHT RECORDED 261.6 lb 261.6 lb [facility] Body height Measured 70.08 in 70.08 in [facility] Patient Treatment Plan of Care Planned Activity Planned Date Details Description Data Source (s) Levofloxacin 500 MG Oral Tablet 02/14/2021 12:00:00 AM EDT eCW1 ([facility]) tramadol hydrochloride 50 MG Oral Tablet 02/14/2021 12:00:00 AM EDT eCW1 ([facility]) Levofloxacin 500 MG Oral Tablet 02/14/2021 12:00:00 AM EDT eCW1 ([facility]) tramadol hydrochloride 50 MG Oral Tablet 02/14/2021 12:00:00 AM EDT eCW1 ([facility]) FreeStyle Shabbir 2 Sensor 11/01/2020 12:00:00 AM [facility] 3 ML Insulin Lispro 100 UNT/ML Pen Injector 10/26/2020 12:00:00 AM [facility] Chlorthalidone 25 MG Oral Tablet 10/25/2020 12:00:00 AM [facility] Cholecalciferol 2000 UNT Oral Capsule 10/17/2020 12:00:00 AM [facility] 120 ACTUAT Albuterol 0.1 MG/ACTUAT / Ipr atropium [place] 0.02 MG/ACTUAT Metered Dose Inhaler [Combivent] 10/02/2020 12:00:00 AM [facility] BD Pen Needle Original U/F 29G X 12.7MM (Insulin Pen N eedle) 2020 12:00:00 AM [facility] Levothyroxine Sodium 0.125 MG Oral Tablet 2020 12:00:00 AM [facility] doxycycline hyclate 100 MG Oral Capsule 09/20/2020 12:00:00 AM EDT eCW1 ([facility]) doxycycline hyclate 100 MG Oral Capsule 09/20/2020 12:00:00 AM EDT eCW1 ([facility]) doxycycline hyclate 100 MG Oral Capsule 09/20/2020 12:00:00 AM EDT eCW1 ([facility]) doxycycline hyclate 100 MG Oral Capsule 09/20/2020 12:00:00 AM EDT eCW1 ([facility]) doxycycline hyclate 100 MG Oral Capsule 09/20/2020 12:00:00 AM EDT eCW1 ([facility]) Amlodipine 2.5 MG Oral Tablet 09/04/2020 12:00:00 AM [facility] Trulicity 3 MG/0.5ML Subcutaneous Solution Pen-injecto r (Dulaglutide) 09/01/2020 12:00:00 AM [facility] Dexamethasone 2 MG Oral Tablet 07/31/2020 12:00:00 AM EST eCW1 ([facility]) Dexamethasone 2 MG Oral Tablet 07/31/2020 12:00:00 AM EST eCW1 ([facility]) May Have - 07/31/2020 12:00:00 AM EST e CW1 ([facility]) May Have - 07/31/2020 12:00:00 AM EST e CW1 ([facility]) Dexamethasone 2 MG Oral Tablet 07/31/2020 12:00:00 AM EST eCW1 ([facility]) May Have - 07/31/2020 12:00:00 AM EST e CW1 ([facility]) 3 ML Insulin, Aspart, Human 100 UNT/ML Pen Injector [N ovoLog] 05/04/2020 12:00:00 AM [facility] 3 ML Insulin Lispro 100 UNT/ML Pen Injector 04/27/2020 12:00:00 AM [facility] Basaglar KwikPen 100 UNIT/ML Subcutaneou s Solution Pen-injector (insulin glargine) 04/24/2020 12:00:00 AM [facility] FreeStyle Shabbir 14 Day Sensor 04/20/2020 12:00:00 AM [facility] Cholecalciferol 4000 UNT Oral Capsule 04/20/2020 12:00:00 AM [facility] 0.5 ML dulaglutide 3 MG/ML Auto-Injector [Trulicity] 020 12:00:00 AM [facility] FrankoBarry Kimcandy Lancets 33G 04/20/2020 12:00:00 AM [facility] atorvastatin 40 MG Oral Tablet 04/20/2020 12:00:00 AM [facility] 3 ML insulin detemir 100 UNT/ML Pen Injector [Levemir] 04/20/2020 12:00:00 AM [facility] 3 ML Insulin, Aspart, Human 100 UNT/ML Pen Injector [N ovoLog] 04/20/2020 12:00:00 AM [facility] Losartan Potassium 100 MG Oral Tablet 04/19/2020 12:00:00 AM [facility] Naproxen 500 MG Oral Tablet 03/25/2020 12:00:00 AM [facility] BD Pen Needle Original U/F 29G X 12.7MM (Insulin Pen N eedle) 03/21/2020 12:00:00 AM [facility] Levothyroxine Sodium 0.125 MG Oral Tablet 03/21/2020 12:00:00 AM [facility] Cholecalciferol 1000 UNT Oral Tablet 03/21/2020 12:00:00 AM [facility] FreeStyle Shabbir 14 Day Sensor 11/23/2019 12:00:00 AM [facility] Baclofen 10 MG Oral Tablet 11/18/2019 12:00:00 AM [facility] 0.5 ML dulaglutide 3 MG/ML Auto-Injector [Trulicity] 020 12:00:00 AM [facility] Losartan Potassium 50 MG Oral Tablet 10/01/2019 12:00:00 AM [facility] 3 ML insulin detemir 100 UNT/ML Pen Injector 07/28/2019 12:00:00 AM [facility] 3 ML Insulin, Aspart, Human 100 UNT/ML Pen Injector 07/28/19 20 12:00:00 AM [facility] 0.5 ML dulaglutide 3 MG/ML Auto-Injector 07/28/2019 12:00:00 AM [facility] clopidogrel 75 MG Oral Tablet 08/25/2017 12:00:00 AM [facility] FRANKOBARRY DELCANDY LANCETS 33G MISC 06/17/2017 12:00:00 AM [facility] FreeStyle Shabbir 2 Sensor Ups [facility] tramadol hydrochloride [address] [facility] Rosuvastatin calcium [address] [facility] carvedilol 6.[address] [facility]
--- NOTE | 2021-04-19 01:38 | HPEPDOC ---
[facility] Medical History & Physical Date of Admission Apr 19, 2021 Date of Service: Apr 19, 2021 Attending Physician: CRISTIN CROCKER MD History and Physical CHIEF COMPLAINT: Chest pain HISTORY OF PRESENT ILLNESS: This is a 60-year-old gentleman with significant past medical history of severe LUCILA noncompliant with CPAP use, diabetes, hypothyroidism, GERD, hypertension, morbid obesity, hyperlipidemia, history is of Covid, thoracic aneurysm, known history of left bundle branch block, anxiety presented to the hospital with complaint of chest pain. Patient is currently intubated and therefore history was obtained from chart review and from the emergency department. Basically, patient was out hunting a nd started experiencing chest pain. Therefore, he called the ambulance which brought him to the emergency department. In the emergency department he was found to have a take on his hand which was removed. Serial cardiac biomarkers were done in the emergency department which were negative. EKG showed old left bundle branch block. While being evaluated in the emergency department, he started developing rash in the upper back migrating up to his neck and around. That he started experiencing shortness of breath and unable to talk. He was noted to have stridor and therefore he was emergently intubated in the emergency department. Rest of the blood work including CBC and BMP are unremarkable. Further work-up revealed significant bilateral patchy infiltrate in the lung consistent with pulmonary edema. There was also evidence of bilateral pleural effusion. CT of the neck showed no evidence of soft tissue swelling or airway compromise. CT of the abdomen on my independent review showed no evidence of acute pathology. Bedside echocardiogram done show apical left ventricular ballooning/hypokinesis. Right ventricle is fully zara. Patient is currently intubated and will be admitted to ICU for further care. PAST MEDICAL HISTORY (from chart review): LUCILA/ CPAP Pulmonary (last seen 06/16)- not using. DM2: Cris. Hypothyroidism: Cris. GERD : diet controlled. HTN. Obesity. Dyslipidemia. H/O Anxiety. Allergic rhinitis. Pneumovax- REFUSES. Thoracic anuerysm. LBBB. Echocardiogram 05/[address] Gutierrez: moderately thickened aortic valve, dilated throacic aorta at 4.2 cm. CAD. Prior history of COVID-19. PAST SURGICAL HISTORY: hernia repair appendectomy septoplasty cardiac cath ([facility]) 09/2012 EGD/colonoscopy 2010 Angioplasty- [place]: [place] 02/2017 Colonoscopy- Dr. Castellon. + adenoma: repeat due 04/2017 Cardiac Stent: 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 1 son(s) , 2 daughter(s) - healthy. Brother in October d/t colorectal cancer Brother - MVA Sister- Lung CA (2). ALLERGIES: Please see below. Home medications: Please see below. REVIEW OF SYSTEMS: Unable to be obtained as patient is currently intubated and sedated. HOME MEDICATIONS: Please see below. PHYSICAL EXAMINATION: VITAL SIGNS: Please see below for vital signs GENERAL APPEARANCE: Patient is obese but not in any acute distress, patient is currently sedated. HEENT: JVD very hard to assess. No evidence of cervical adenopathy. Anterior neck has slight soft tissue swelling. CARDIOVASCULAR: S1-S2 with midsystolic murmur. LUNGS: Bilateral crackles in all lung field. ABDOMEN: Distended but not tender and soft. MUSCULOSKELETAL: No joint swelling or effusion. EXTREMITIES: No clubbing of the fingers. NEUROLOGICAL: Unable to be assessed. Pupils are equal and reactive to light PSYCHIATRIC: Unable to be assessed. LABORATORY DATA: See below. IMAGING: CT scan of the chest shows bilateral groundglass opacity with bilateral pleural effusion consistent with pulmonary edema. There is evidence of airspace disease in the lower lobes bilaterally. MICROBIOLOGY: Please see below. ASSESSMENT/Plan: This is a 60-year-old gentleman with significant past medical history of severe LUCILA noncompliant with CPAP use, diabetes, hypothyroidism, GERD, hypertension, morbid obesity, hyperlipidemia, history is of Covid, thoracic aneurysm, known history of left bundle branch block, anxiety presented to the hospital with complaint of chest pain. #Acute respiratory failure secondary to inability to protect airway due to stridor -Currently intubated. On mechanical ventilation with high PEEP setting. Daily sedation holiday. #Pulmonary edema -Differential include cardiogenic pulmonary edema versus Takotsubo car diomyopathy versus negative pressure pulmonary edema -Official echo has been ordered -We will serial cardiac biomarkers. Also check proBNP. -May consider cardiology consultation later in the day after all the work-up done. #Stridor -Unclear at this is related to anaphylactic reaction or angioedema. CT scan of the neck showed no evidence of soft tissue swelling or airway compromise. I will give him 24 hours of Decadron, Benadryl and Pepcid. There is evidence of cuff leak when I examined him. #History is of diabetes, hypertension, hyperlipidemia, hypothyroidism -I am going to restart him on his home thyroid supplementation. For his diabetes I will put him on insulin sliding scale and will add long-acting later in the day today. I have restarted him back on Lipitor. I am going to hold the rest of his medications for now. DVT prophylaxis: Lovenox subcutaneous GI prophylaxis: Pepcid Diet: N.p.o. CODE STATUS: Full code Critical care time excluding procedure is 60 minutes. Vital Signs Vital Signs Date Time Temp Pulse Resp B/P (MAP) Pulse Ox O2 Delivery O2 Flow Rate FiO2 04/19/21 01:31 74 16 101/57 (72) 96 04/19/21 00:59 Ventilator 100 04/18/21 22:00 2.0 Laboratory Data Labs 24H Laboratory Tests 2 04/18/21 21:33: POC Glucose (Misc Panel) 302H, POC Sodium (Misc Panel) 138, POC Potassium (Misc Panel) 3.9, POC Chloride (Misc Panel) 104, POC Total CO2 (Misc Panel) 20.0L, POC Blood Urea Nitrogen (Misc Panel 18, POC Ionized Calcium (Misc Panel) 4.3L, POC Creatinine (Misc Panel) 0.8, POC Hematocrit (Misc Panel) 44.0 04/18/21 21:36: Immature Granulocyte % (Auto) 0.5, Neutrophils (%) (Auto) 58.1, Lymphocytes (%) (Auto) 31.4, Monocytes (%) (Auto) 7.0, Eosinophils (%) (Auto) 2.3, Basophils (%) (Auto) 0.7, Neutrophils # (Auto) 4.9, Lymphocytes # (Auto) 2.6, Monocytes # (Auto) 0.6, Eosinophils # (Auto) 0.2, Basophils # (Auto) 0.1, Nucleated Red Blood Cells % (auto) 0.0, POC Troponin I (Misc) 0.01, Total Creatine Kinase 120, Creatine Kinase MB 1.9, Creatine Kinase MB Relative Index 1.58, Troponin I < 0.02 04/18/21 23:27: Blood Gas Bicarbonate Standard 22.0, Arterial Blood pH 7.278L, Arterial Blood Pa rtial Pressure CO2 54.0H, Arterial Blood Partial Pressure O2 141.0H, Arterial Blood Total CO2 26.3, Arterial Blood HCO3 24.7, Arterial Blood Base Excess - 3.1L, Arterial Blood Oxygen Saturation 98.5 04/18/21 23:39: Total Creatine Kinase 121, Creatine Kinase MB 1.4, Creatine Kinase MB Relative Index 1.16, Troponin I < 0.02, Coronavirus (COVID-19)(PCR) NEGATIVE, Influenza Type A (RT-PCR) NEGATIVE, Influenza Type B (RT-PCR) NEGATIVE, Respiratory Syncytial Virus (PCR) NEGATIVE CBC/BMP Laboratory Tests 04/18/21 21:36 Home Medications Scheduled Aspirin (Aspirin) 81 Mg Chw, 81 MG PO QHS Atorvastatin Calcium (Atorvastatin Calcium) 40 Mg Tablet, 40 MG PO QHS Cetirizine HCl (Cetirizine HCl) 10 Mg Tablet, 10 MG PO QHS Cholecalciferol (Vitamin D3) (Vitamin D3) 50 Mcg Capsule, 100 MCG PO DAILY Dulaglutide (Trulicity) 1.5 Mg/0.5 Ml Pen.injctr, 3 MG IM QWEEK FRIDAY Insulin Glargine,Hum.rec.anlog (Basaglar Kwikpen U-100) 100 Unit/1 Ml Insuln.pen, 45 UNIT SC BID Ipratropium/Albuterol Sulfate (Combivent Respimat 20-100 Mcg) 4 Gm Mist.inhal, 2 PUFF INH TID Lactobacillus 3/Fos/Pantethine (Probiotic & Acidophilus Cap) 1 Each Capsule, 1 CAP PO DAILY Levothyroxine Sodium (Levo-T) 125 Mcg Tablet, 125 MCG PO DAILY Losartan Potassium (Losartan Potassium) 100 Mg Tablet, 100 MG PO QHS Pantoprazole Sodium (Pantoprazole Sodium) 40 Mg Tablet.dr, 40 MG PO QHS Paroxetine HCl (Paroxetine HCl) 20 Mg Tab, 20 MG PO QHS Ubidecarenone (Coenzyme Q10) 100 Mg Cap, 200 MG PO BID Scheduled PRN Acetaminophen (Acetaminophen) 500 Mg Tablet, 1,000 MG PO Q8H PRN for PAIN Albuterol Sulf (Albuterol Sulfate) 2.5 Mg/3 Ml Vial.neb, 1 VIAL NEB Q4HP PRN for wheezing Albuterol Sulfate (Ventolin Hfa) 18 Gm Hfa.aer.ad, 2 PUFFS INH QID PRN for SOB/WHEEZING Insulin Lispro (Admelog Solostar) 100 Unit/1 Ml Insuln.pen, 1 DOSE SC ASDIRECTED PRN for SLIDING SCALE Nitroglycerin (Nitrostat) 0.4 Mg Subl, 0.4 MG SL NITRO PRN for CHEST PAIN Tramadol HCl (Tramadol HCl) 50 Mg Tablet, 50 MG PO Q8H PRN for PAIN Miscellaneous Medications Chlorthalidone (Chlorthalidone) 25 Mg Tablet Allergies Coded Allergies: Sulfa (Sulfonamide Antibiotics) (Verified Allergy, Severe, ANAPHYLAXIS, 07/21/20) [place] (Verified Allergy, Severe, ANAPHYLAXIS, 07/21/20) amoxicillin (Verified Allergy, Unknown, 07/21/20) cefdinir (Verified Allergy, Unknown, 07/21/20) clavulanic acid (Verified Allergy, Unknown, 07/21/20) pseudoephedrine (Verified Adverse Reaction, Severe, high bp, 07/21/20) lisinopril (Verified Adverse Reaction, Intermediate, BRADYKININ COUGH, 07/21/20) A-FIB/CHADSVASC A-FIB History Current/History of A-Fib/PAF?: No CRISTIN CROCKER MD Apr 19, 2021 01:38
[2021-04-19 01:43] LABS: MAGNESIUM LEVEL 1.8 MG/DL (1.8-2.4); NT-PRO BNP 84 PG/ML (<125); PHOSPHORUS LEVEL 4.4 MG/DL (2.5-4.9)
[2021-04-19] MEDS ORDERED: FUROSEMIDE 20MG/2ML VIAL (J1940) IV ONE (01:50)
[2021-04-19] MEDS ORDERED: DEXTROSE 50% 50 ML SYRINGE IV PRN (01:50)
[2021-04-19] MEDS ORDERED: GLUCAGON INJ 1MG VIAL SC PRN (01:50)
[2021-04-19] MEDS ORDERED: GLUCOSE 4GM CHEW TABLET PO PRN (01:50)
--- NOTE | 2021-04-19 01:56 | REPVR ---
PROCEDURE INFORMATION: Exam: CTA Chest With Contrast Exam date and time: 04/18/2021 11:58 PM Age: 60 years old Clinical indication: Other: Laryngeal edema; Additional info: Rule out dissection TECHNIQUE: Imaging protocol: Computed tomographic angiography of the chest with contrast. 3D rendering (Not supervised by radiologist): MIP and/or 3D reconstructed images were created by the technologist. Radiation optimization: All CT scans at this facility use at least one of these dose optimization techniques: automated exposure control; mA and/or kV adjustment per patient size (includes targeted exams where dose is matched to clinical indication); or iterative reconstruction. Contrast material: ISO; Contrast volume: 75 ml; Contrast route: INTRAVENOUS (IV); COMPARISON: CT ANGIO CHEST 09/17/2020 9:04 AM FINDINGS: Tubes, catheters and devices: ET tube above the raquel. NG tube extending into the proximal stomach. Pulmonary arteries: The main pulmonary artery measures 28 mm. No gross central pulmonary embolism is identified. Emboli beyond first order branching are not excluded. Aorta: Suboptimal opacification of the aorta and pulmonary arteries. The ascending thoracic aorta measures 34 mm. No gross or obvious aortic dissection is identified distal to the mid arch. Artifact and image degradation precludes detailed evaluation of the ascending thoracic aorta. Lungs: Bilateral pulmonary infiltrates with areas of atelectasis and consolidation, greatest in the lower lobes and posterior left upper lobe. Pleural spaces: Unremarkable. No pneumothorax. No pleural effusion. Heart: Unremarkable. No cardiomegaly. No pericardial effusion. Lymph nodes: Unremarkable. No enlarged lymph nodes. Bones/joints: Mild anterior wedge configuration of T11 which appears to be chronic and is unchanged from 09/17/2020. Soft tissues: Unremarkable. IMPRESSION: 1. Bilateral pulmonary infiltrates with areas of atelectasis and consolidation, greatest in the lower lobes and posterior left upper lobe which appears increased overall since 09/17/2020. 2. ET tube above the raquel and NG tube extending into the stomach. 3. Suboptimal opacification of the aorta and pulmonary arteries. No gross or obvious aortic dissection is identified distal to the mid arch. Artifact and image degradation precludes detailed evaluation of the ascending thoracic aorta. No gross central pulmonary embolism is identified. Emboli beyond first order branching are not excluded. Electronically signed by: Kuldip Bai On 04/19/2021 01:56:05 AM
--- NOTE | 2021-04-19 02:00 | REPVR ---
PROCEDURE INFORMATION: Exam: CT Angiography Abdomen With Contrast Exam date and time: 04/18/2021 11:58 PM Age: 60 years old Clinical indication: Other: Laryngeal edema; Additional info: Rule out dissection TECHNIQUE: Imaging protocol: Computed tomographic angiography images of the abdomen with intravenous contrast material. 3D rendering (Not supervised by radiologist): MIP and/or 3D reconstructed images were created by the technologist. Radiation optimization: All CT scans at this facility use at least one of these dose optimization techniques: automated exposure control; mA and/or kV adjustment per patient size (includes targeted exams where dose is matched to clinical indication); or iterative reconstruction. Contrast material: ISO; Contrast volume: 75 ml; Contrast route: INTRAVENOUS (IV); COMPARISON: CT ABD/PEL W/IV CONTRAST ONLY 06/04/2020 5:56 PM FINDINGS: Tubes, catheters and devices: NG tube extending into the stomach at the level of the fundus/body. Aorta: The abdominal aorta is of normal size without aneurysm or dissection. Celiac trunk and mesenteric arteries: The celiac artery and branches appear to be patent. The SMA and proximal branches appear to be patent. The DEONTE is patent. Renal arteries: There are single patent bilateral renal arteries. Other arteries: Suboptimal opacification of the arterial structures. Liver: Normal. No mass. Gallbladder and bile ducts: Normal. No calcified stones. No ductal dilation. Pancreas: Normal. No ductal dilation. Spleen: Normal. No splenomegaly. Adrenals: Normal. No mass. Kidneys and ureters: Normal. No hydronephrosis. Stomach and bowel: Unremarkable. No obstruction. No mucosal thickening. Appendix: There are no changes of appendicitis. A normal appendix is not seen. Lymph nodes: Unremarkable. No enlarged lymph nodes. Intraperitoneal space: Unremarkable. No free air. No significant fluid collection. Bones/joints: Unremarkable. No acute fracture. No dislocation. Soft tissues: Unremarkable. IMPRESSION: 1. NG tube extending into the stomach. 2. Grossly negative CTA abdomen. No abdominal aortic aneurysm or dissection. Electronically signed by: Kuldip Bai On 04/19/2021 01:59:35 AM
[2021-04-19] MEDS ORDERED: HEPARIN SOD (PORCINE) 5000UNITS/ML 1ML VIAL/SYRINGE IV STA (02:25)
[2021-04-19] MEDS ORDERED: CLOPIDOGREL 300 MG TAB (PLAVIX) PO STA (02:25)
[2021-04-19 02:32] LABS: CK-MB VALUE MASS 1.5 NG/ML (<3.6); MB/CK RELATIVE INDEX 1.34 (< OR =4); TROPONIN I 0.03 NG/ML (< 0.10)
[2021-04-19] MEDS ORDERED: ENOXAPARIN 120MG/0.8ML SYRINGE (J1650 PER 10MG) SC SCH (03:00)
--- NOTE | 2021-04-19 03:33 | DS.PDOC ---
Discharge Summary General Date of Admission Apr 19, 2021 at 00:58 Date of Discharge April 19, 2021 Attending Physician: CRISTIN CROCKER MD Specialist/Consultants Involve: Eren Gutierrez Discharge Summary PROCEDURES PERFORMED DURING STAY: None. ADMITTING DIAGNOSES: 1. Acute respiratory failure. 2. Stridor 3. Cardiogenic pulmonary edema 4. Acute coronary syndrome 5. Possible anaphylaxis DISCHARGE DIAGNOSES: 1. Acute respiratory failure. 2. Stridor 3. Cardiogenic pulmonary edema 4. Acute coronary syndrome 5. Possible anaphylaxis COMPLICATIONS/CHIEF COMPLAINT: Anaphylaxis, Chest Pain, Laryngeal edema. HISTORY OF PRESENT ILLNESS: This is a 60-year-old gentleman with significant past medical history of severe LUCILA noncompliant with CPAP use, diabetes, hypothyroidism, GERD, hypertension, morbid obesity, hyperlipidemia, history is of Covid, thoracic aneurysm, known history of left bundle branch block, anxiety presented to the hospital with complaint of chest pain. Patient is currently intubated and therefore history was obtained from chart review and from the emergency department. Basically, patient was out hunting and started experiencing substernal chest pain and diaphoresis. Therefore, he called the ambulance which brought him to the emergency department. In the emergency department he was found to have a tick on his hand which was removed. He was given nitroglycerin without any relief of his chest pain. Serial cardiac biomarkers were done in the emergency department which were negative. EKG showed old left bundle branch block. While being evaluated in the emergency department, he started developing rash in the upper back migrating up to his neck and around. That he started experiencing shortness of breath and unable to talk. He was noted to have stridor and therefore he was emergently intubated in the emergency department. Rest of the blood work including CBC and BMP are unremarkable. proBNP is not elevated at 80. Further work-up revealed significant bilateral patchy infiltrate with groundglass in the lung consistent with pulmonary edema. There was also evidence of small bilateral pleural effusion. CT of the neck showed no evidence of soft tissue swelling or airway compromise. CT of the abdomen on my in dependent review showed no evidence of acute pathology. Bedside echocardiogram done show apical left ventricular ballooning/hypokinesis. Right ventricle is fully zara. Patient is currently intubated and in the process of being transferred to [facility] for further care and possible cardiac catheterization. Patient has been loaded with aspirin, Plavix, Lovenox, m etoprolol, Lipitor. DISCHARGE MEDICATIONS: Please see below. ALLERGIES: Please see below. PHYSICAL EXAMINATION ON DISCHARGE: VITAL SIGNS: Please see below. Please see my HPI LABORATORY DATA: Please see below. DISCHARGE PLAN: Transfer to [facility] DISCHARGE CONDITION: Critical. TIME SPENT ON DISCHARGE: 30 minutes. Vital Signs/I&Os Vital Signs Date Time Temp Pulse Resp B/P (MAP) Pulse Ox O2 Delivery O2 Flow Rate FiO2 04/19/21 02:30 75 04/19/21 02:05 75 118/68 (85) 97 04/19/21 02:05 97.9 18 Ventilator 04/18/21 22:00 2.0 Laboratory Data Labs 24H Laboratory Tests 2 04/18/21 21:33: POC Glucose (Misc Panel) 302H, POC Sodium (Misc Panel) 138, POC Potassium (Misc Panel) 3.9, POC Chloride (Misc Panel) 104, POC Total CO2 (Misc Panel) 20.0L, POC Blood Urea Nitrogen (Misc Panel 18, POC Ionized Calcium (Misc Panel) 4.3L, POC Creatinine (Misc Panel) 0.8, POC Hematocrit (Misc Panel) 44.0 04/18/21 21:36: Immature Granulocyte % (Auto) 0.5, Neutrophils (%) (Auto) 58.1, Lymphocytes (%) (Auto) 31.4, Monocytes (%) (Auto) 7.0, Eosinophils (%) (Auto) 2.3, Basophils (%) (Auto) 0.7, Neutrophils # (Auto) 4.9, Lymphocytes # (Auto) 2.6, Monocytes # (Auto) 0.6, Eosinophils # (Auto) 0.2, Basophils # (Auto) 0.1, Nucleated Red Blood Cells % (auto) 0.0, POC Troponin I (Misc) 0.01, Total Creatine Kinase 120, Creatine Kinase MB 1.9, Creatine Kinase MB Relative Index 1.58, Troponin I < 0.02 04/18/21 23:27: Blood Gas Bicarbonate Standard 22.0, Arterial Blood pH 7.278L, Arterial Blood Partial Pressure CO2 54.0H, Arterial Blood Partial Pressure O2 141.0H, Arterial Blood Total CO2 26.3, Arterial Blood HCO3 24.7, Arterial Blood Base Excess - 3.1L, Arterial Blood Oxygen Saturation 98.5 04/18/21 23:39: Total Creatine Kinase 121, Creatine Kinase MB 1.4, Creatine Kinase MB Relative Index 1.16, Troponin I < 0.02, Phosphorus Level 4.4, Magnesium Level 1.8, YZ-Joe-[id number]-Type Natriuretic Peptide 84, Coronavirus (COVID-19)(PCR) NEGATIVE, Influenza Type A (RT-PCR) NEGATIVE, Influenza Type B (RT-PCR) NEGATIVE, Respiratory Syncytial Virus (PCR) NEGATIVE 04/19/21 01:50: Total Creatine Kinase 112, Creatine Kinase MB 1.5, Creatine Kinase MB Relative Index 1.34, Troponin I 0.03# CBC/BMP Laboratory Tests 04/18/21 21:36 Discharge Medications Scheduled Aspirin (Aspirin) 81 Mg Chw, 81 MG PO QHS, (Reported) Atorvastatin Calcium (Atorvastatin Calcium) 40 Mg Tablet, 40 MG PO QHS, (Reported) Cetirizine HCl (Cetirizine HCl) 10 Mg Tablet, 10 MG PO QHS, (Reported) Cholecalciferol (Vitamin D3) (Vitamin D3) 50 Mcg Capsule, 100 MCG PO DAILY, (Reported) Dulaglutide (Trulicity) 1.5 Mg/0.5 Ml Pen.injctr, 3 MG IM QWEEK, (Reported) FRIDAY Insulin Glargine,Hum.rec.anlog (Basaglar Kwikpen U-100) 100 Unit/1 Ml Insuln.pen, 45 UNIT SC BID Ipratropium/Albuterol Sulfate (Combivent Respimat 20-100 Mcg) 4 Gm Mist.inhal, 2 PUFF INH TID, (Reported) Lactobacillus 3/Fos/Pantethine (Probiotic & Acidophilus Cap) 1 Each Capsule, 1 CAP PO DAILY, (Reported) Levothyroxine Sodium (Levo-T) 125 Mcg Tablet, 125 MCG PO DAILY, (Reported) Losartan Potassium (Losartan Potassium) 100 Mg Tablet, 100 MG PO QHS, (Reported) Pantoprazole Sodium (Pantoprazole Sodium) 40 Mg Tablet.dr, 40 MG PO QHS, (Reported) Paroxetine HCl (Paroxetine HCl) 20 Mg Tab, 20 MG PO QHS, (Reported) Ubidecarenone (Coenzyme Q10) 100 Mg Cap, 200 MG PO BID, (Reported) Scheduled PRN Acetaminophen (Acetaminophen) 500 Mg Tablet, 1,000 MG PO Q8H PRN for PAIN, (Reported) Albuterol Sulf (Albuterol Sulfate) 2.5 Mg/3 Ml Vial.neb, 1 VIAL NEB Q4HP PRN for wheezing Albuterol Sulfate (Ventolin Hfa) 18 Gm Hfa.aer.ad, 2 PUFFS INH QID PRN for SOB/WHEEZING Insulin Lispro (Admelog Solostar) 100 Unit/1 Ml Insuln.pen, 1 DOSE SC ASDIRECTED PRN for SLIDING SCALE, (Reported) Nitroglycerin (Nitrostat) 0.4 Mg Subl, 0.4 MG SL NITRO PRN for CHEST PAIN, (Reported) Tramadol HCl (Tramadol HCl) 50 Mg Tablet, 50 MG PO Q8H PRN for PAIN, (Reported) Miscellaneous Medications Chlorthalidone (Chlorthalidone) 25 Mg Tablet, (Reported) Allergies Coded Allergies: Sulfa (Sulfonamide Antibiotics) (Verified Allergy, Severe, ANAPHYLAXIS, 07/21/20) [place] (Verified Allergy, Severe, ANAPHYLAXIS, 07/21/20) amoxicillin (Verified Allergy, Unknown, 07/21/20) cefdinir (Verified Allergy, Unknown, 07/21/20) clavulanic acid (Verified Allergy, Unknown, 07/21/20) pseudoephedrine (Verified Adverse Reaction, Severe, high bp, 07/21/20) lisinopril (Verified Adverse Reaction, Intermediate, BRADYKININ COUGH, 07/21/20) CRISTIN CROCKER MD Apr 19, 2021 03:33
[2021-04-19] MEDS ORDERED: HumaLOG INSULIN (NovoLOG) PER UNIT SC SCH (06:00)
--- NOTE | 2021-04-19 07:44 | ECGEPIP ---
- ED Test Date: 2021-04-18 Pat Name: MARILYN SHIELDS Department: Room: - Gender: Male Arterial Embalmer: GONZALEZ : 1960 Requested By: SARAH Castro Order Number: [id number] Reading MD: Prasanna Calloway Measurements Intervals [place] Rate: 70 P: 50 GA: 186 QRS: -15 QRSD: 162 T: 139 QT: 434 QTc: 468 Interpretive Statements Normal sinus rhythm Left bundle branch block, new compared to 09/17/20 [facility] BY VOLTAGE Electronically Signed on 04-19-2021 7:44:17 EDT by Prasanna Calloway
[2021-04-19] MEDS ORDERED: IPRATROPIUM 0.5MG/ALBUTEROL 2.5MG INH SOL UD 3ML (DUONEB) NEB SCH (08:00)
[2021-04-19] MEDS ORDERED: ASPIRIN 81 MG CHEW TABLET NG SCH (09:00)
[2021-04-19] MEDS ORDERED: ENOXAPARIN 40MG/0.4ML SYRINGE (J1650 PER 10MG) SC SCH (09:00)
[2021-04-19] MEDS ORDERED: FAMOTIDINE 20 MG TAB NG SCH (09:00)
[2021-04-19] MEDS ORDERED: METOPROLOL TART 25 MG TABLET NG SCH (09:00)
[2021-04-19] MEDS ORDERED: CHLORHEXIDINE GLUCONATE 0.12 % 15ML UDC (PERIDEX ORAL RINSE) MT SCH (09:00)
[2021-04-19] MEDS ORDERED: ATORVASTATIN 20 MG TAB NG SCH ×2 (21:00)
== END 2021-04-19 05:05 | disposition short-term general hospital (02) | DRG 133 ==
LOC: M ED 21:22 → M ED INP 04-19 00:58 → M PCU 04-19 02:05
PROVIDERS: ADMIT Internal Medicine Critical Care Medicine; ATTEND Internal Medicine Critical Care Medicine
PROC: 0BH17EZ Insertion of Endotracheal Airway into Trachea, Via Natural or Artificial Opening (ICD-10-PCS; principal; 2021-04-19)
PROC: 5A1935Z Respiratory Ventilation, Less than 24 Consecutive Hours (ICD-10-PCS; 2021-04-19)
DX: J96.00 Acute respiratory failure, unspecified whether with hypoxia or hypercapnia (principal); J81.1 Chronic pulmonary edema; I24.8 Other forms of acute ischemic heart disease; R06.1 Stridor; T78.2XXA Anaphylactic shock, unspecified, initial encounter; E11.9 Type 2 diabetes mellitus without complications; I10 Essential (primary) hypertension; E78.5 Hyperlipidemia, unspecified; E03.9 Hypothyroidism, unspecified; G47.33 Obstructive sleep apnea (adult) (pediatric); K21.9 Gastro-esophageal reflux disease without esophagitis; Z86.16 Personal history of COVID-19; I44.7 Left bundle-branch block, unspecified; F17.220 Nicotine dependence, chewing tobacco, uncomplicated; Z20.822 Contact with and (suspected) exposure to COVID-19; Z79.82 Long term (current) use of aspirin; Z79.4 Long term (current) use of insulin; Z79.899 Other long term (current) drug therapy; Z88.2 Allergy status to sulfonamides; Z88.0 Allergy status to penicillin; Z88.1 Allergy status to other antibiotic agents; Z88.8 Allergy status to other drugs, medicaments and biological substances; Z91.018 Allergy to other foods

== ENCOUNTER 2021-05-26 16:15 | Emergency (ER) | payer OTHER ==
[~2021-05-26] VITALS: Ht 177.8 cm; Wt 113.7 kg
--- OUTSIDE RECORDS SUMMARY | 2021-05-26 16:24 | CCD | Continuity of Care Document ---
Author Organization Unknown Address Unknown Phone Unavailable Care Team Providers Care Varnisher Apprentice Name Role Phone Galilea Roblero TEREZA AUTM [phone] Tristan Fatima MD AUTM Problems Active Problems Provider Date Essential hypertension [...] Daily physically demanding job Exercise Limitations None Allergies and adverse reactions Active Allergies Criticality Reaction | Severity Comments Date Sulfa Unable to assess criticality throat swell s 07/25/2010 Amoxicillin Unable to assess criticality 03/27/2021 Cefdinir Unable to assess criticality 03/27/2021 [place] Unable to assess criticality 03/27/2021 Pseudoephedrine Unable to assess criticality 03/27/2021 Medications Active Medications SIG Qnty Indications Ordering Provide r Date Dilt-XR 120mg Caps ER 24HR 1 by mouth every day in the morning 90caps I11.9 Eren Gutierrez MD 11/04 Basaglar Kwikpen 100 Unit/ML Solution Pen-Inject inject as directed Unknown Humalog Mix 75/25 Kwikpen (75-25)100Unit/ML Supn inject as directed on ss by pcp Unknown 10/01/2020 Levothyroxine Sodium 125mcg Tablet s 1 by mouth every day Evan Gonzalez MD 07/08/2019 Pantoprazole Sodium 40mg Tablets D R 1 by mouth every day Galilea Roblero FNP 0 Atorvastatin Calcium 40mg Tablets take one tablet by mouth at bedtime 90tabs I25.10 To Bernard MD 09/10/2018 Coq10 100mg Capsules 2 tablets twice a day Eren Gutierrez MD 09/10/2018 Nitroglycerin 0.4mg Tablets Sub Place [...] Paroxetine HCL 20mg Tablets 1 po qd Pat Ku, RPA-C 07/25/2010 Admelog Solostar 100 Unit/ML Solution Pen-Inject Unknown Dicyclomine HCL 10mg Capsules 1 to 2 by mouth every 6 hours as needed abdominal cramping Unknown Vitamin D 50mcg (1999 Ut) Tablets Unknown Lactobacillus Tablets 1 by mouth three times a day wm Unknown Tessalon Perles 100mg Capsules 1 by mouth three times a day Unknown Albuterol Sulfate (2 .5mg/3ML) 0.083% Nebulizer 1 vial four times a day as needed Unknown Tobramycin 0.3% Solution Jeimy Cain NP Losartan Potassium 50mg Tablets Take One Tablet By Mouth Every Day Unknown Epipen 2-Carlos 0.3mg/0 .3ML Solution Auto-Inject [...] Date Facility Test Result H/L Range Note Poct glucose, docked 04/23/2021 N2N/Direct [facility] Impo rt Poc Glucose 202 mg/dL High 70 - 140 Poct glucose, docked 04/23/2021 N2N/Direct [facility] Impo rt Poc Glucose 244 mg/dL High 70 - 140 Poct glucose, docked 04/23/2021 N2N/Direct [facility] Impo rt Poc Glucose 294 mg/dL High 70 - 140 Poct glucose, docked 04/22/2021 N2N/Direct [facility] Impo rt Poc Glucose 135 mg/dL 70 - 140 Poct glucose, docked 04/22/2021 N2N/Direct [facility] Impo rt Poc Glucose 317 mg/dL High 70 - 140 Poct glucose, docked 04/22/2021 N2N/[facility] Impo rt Poc Glucose 212 mg/dL High 70 - 140 Basic Metabolic Panel 04/22/2021 N2N/Direct CCD Imp ort Bicarbonate 25 mmol/L 22 - 29 Chloride 104 mmol/L 98 - 107 Creatinine 0.88 mg/dL 0.70 - 1.20 Glucose 199 mg/dL High 70 - 140 Potassium 4.0 mmol/L 3.4 - 5.1 Sodium 139 mmol/L 136 - 145 Blood Urea Nitrogen 20 mg/dL 6 - 20 Anion Gap 10 mmol/L 8 - 15 Osmolality, Heladio 296 mosm/kg 275.0 - 300.0 BUN/Cre Ratio 23 Calcium 8.4 mg/dL Low 8.6 - 10.0 GFR Non 2008 CDK-Epi >90 >60 mL/min/1.73m2 GFR 2008 CKD-Epi >90 >60 mL/ min/1.73m2 CBC and Differential 04/22/2021 N2N/Direct CCD Impo rt White Blood Cell 6.7 10*3/uL 4.00 - 10.00 Red Blood Cell 4.48 10*6/uL Low 4.60 - 6.10 Hemoglobin 13.9 g/dL 13.5 - 18.0 Hematocrit 39.4 % Low 41.0 - 53.0 Mean Cell Volume 88.0 fL 80.0 - 96.0 Mean Cell Hemoglobin 31.0 pg 27.0 - 33.0 Mean Cell Hgb Conc 35.2 g/dL 32 - 36 Red Cell Dist Width 13.2 % 11.5 - 14.5 Platelet Count 163 10*3/uL 150 - 400 Differential Type Automated Diff Neutrophil 48 % Lymphocyte 40 % Monocyte 8 % Eosinophil 3 % Basophil 1 % Abs Neutrophil 3.23 10*3/uL 1.80 - 7.00 Abs Lymphocyte 2.68 10*3/uL 1.20 - 4.00 Abs Monocyte 0.51 10*3/uL 0.00 - 0.80 Abs Eosinophil 0.19 10*3/uL 0.00 - 0.50 Abs Basophil 0.05 10*3/uL 0.00 - 0.20 Nucleated Red Blood Cells 0 /100{WBCs} 0 - 0 Poct glucose, docked 04/22/2021 N2N/Direct [facility] Impo rt Poc Glucose 218 mg/dL High 70 - 140 CBC and Differential 04/21/2021 N2N/Direct CCD Impo rt White Blood Cell 8.7 10*3/uL 4.00 - 10.00 Red Blood Cell 4.32 10*6/uL Low 4.60 - 6.10 Hemoglobin 13.3 g/dL Low 13.5 - 18.0 Hematocrit 38.1 % Low 41.0 - 53.0 Mean Cell Volume 88.3 fL 80.0 - 96.0 Mean Cell Hemoglobin 30.8 pg 27.0 - 33.0 Mean Cell Hgb Conc 34.8 g/dL 32 - 36 Red Cell Dist Width 13.7 % 11.5 - 14.5 Platelet Count 165 10*3/uL 150 - 400 Differential Type Automated Diff Neutrophil 75 % Lymphocyte 18 % Monocyte 7 % Eosinophil 0 % Basophil 0 % Abs Neutrophil 6.55 10*3/uL 1.80 - 7.00 Abs Lymphocyte 1.55 10*3/uL 1.20 - 4.00 Abs Monocyte 0.61 10*3/uL 0.00 - 0.80 Abs Eosinophil 0.01 10*3/uL 0.00 - 0.50 Abs Basophil 0.01 10*3/uL 0.00 - 0.20 Nucleated Red Blood Cells 0 /100{WBCs} 0 - 0 Poct glucose, docked 04/21/2021 N2N/Direct CCD Impo rt Poc Glucose 324 mg/dL High 70 - 140 anti-Xa unfractionated heparin level 04/21/2021 N2N /Direct CCD Import Heparin Unfractionated 0.20 U/ml Poct glucose, docked 04/21/2021 N2N/Direct CCD Impo rt Poc Glucose 276 mg/dL High 70 - 140 anti-Xa unfractionated heparin level 04/21/2021 N2N /Direct CCD Import Heparin Unfractionated 0.14 U/ml Protime-Inr 04/21/2021 N2N/Direct CCD Impor t PT Patient 13.4 s 11.6 - 14.0 Int'l Normalized Ratio 1.06 1 Basic Metabolic Panel 04/21/2021 N2N/Direct CCD Imp ort Bicarbonate 23 mmol/L 22 - 29 Chloride 107 mmol/L 98 - 107 Creatinine 0.84 mg/dL 0.70 - 1.20 Glucose 209 mg/dL High 70 - 140 Potassium 3.7 mmol/L 3.4 - 5.1 2 Sodium 140 mmol/L 136 - 145 Blood Urea Nitrogen 24 mg/dL High 6 - 20 Anion Gap 11 mmol/L 8 - 15 Osmolality, Heladio 301 mosm/kg High 275.0 - 300.0 BUN/Cre Ratio 29 Calcium 8.5 mg/dL Low 8.6 - 10.0 GFR Non 2008 CDK-Epi >90 >60 mL/min/1.73m2 GFR 2008 CKD-Epi >90 >60 mL/ min/1.73m2 Poct glucose, docked 04/21/2021 N2N/Direct CCD Impo rt Poc Glucose 270 mg/dL High 70 - 140 Sputum Culture; Sputum 04/21/2021 N2N/Direct CCD Im port Special Request None Gram Stain 1+ WBC'S Seen. Abnormal Gram Stain 2+ Mixed simon Poct glucose, docked 04/21/2021 N2N/Direct CCD Impo rt Poc Glucose 225 mg/dL High 70 - 140 Poct glucose, docked 04/21/2021 N2N/Direct CCD Impo rt Poc Glucose 153 mg/dL High 70 - 140 Poct glucose, docked 04/20/2021 N2N/Direct CCD Impo rt Poc Glucose 173 mg/dL High 70 - 140 Blood gas, arterial 04/20/2021 N2N/Direct CCD Impor t pH 7.36 Low 7.38 - 7.44 pCO2, Arterial 42 mm[Hg] High 35 - 40 pO2, Arterial 92 Low 95 - 100 mmHg Oxygen Saturation 98 % 94 - 100 Base Excess Neg 2 Total Co2 25 mmol/L Fio2 0.40 Poct glucose, docked 04/20/2021 N2N/Direct CCD Impo rt Poc Glucose 229 mg/dL High 70 - 140 anti-Xa unfractionated heparin level 04/20/2021 N2N /Direct CCD Import Heparin Unfractionated 0.31 U/ml CBC and Differential 04/20/2021 N2N/Direct CCD Impo rt White Blood Cell 13.3 10*3/uL High 4.00 - 10.00 Red Blood Cell 4.55 10*6/uL Low 4.60 - 6.10 Hemoglobin 13.9 g/dL 13.5 - 18.0 Hematocrit 40.5 % Low 41.0 - 53.0 Mean Cell Volume 89.1 fL 80.0 - 96.0 Mean Cell Hemoglobin 30.6 pg 27.0 - 33.0 Mean Cell Hgb Conc 34.3 g/dL 32 - 36 Red Cell Dist Width 13.8 % 11.5 - 14.5 Platelet Count 195 10*3/uL 150 - 400 Differential Type Automated Diff Neutrophil 82 % Lymphocyte 11 % Monocyte 7 % Eosinophil 0 % Basophil 0 % Abs Neutrophil 10.83 10*3/uL High 1.80 - 7.00 Abs Lymphocyte 1.50 10*3/uL 1.20 - 4.00 Abs Monocyte 0.94 10*3/uL High 0.00 - 0.80 Abs Eosinophil 0.01 10*3/uL 0.00 - 0.50 Abs Basophil 0.03 10*3/uL 0.00 - 0.20 Nucleated Red Blood Cells 0 /100{WBCs} 0 - 0 Lactic Acid Level, Plasma 04/20/2021 N2N/Direct CCD Import Lactic Acid 2.4 mmol/L High 0.5 - 2.2 Basic Metabolic Panel 04/20/2021 N2N/Direct CCD Imp ort Bicarbonate 22 mmol/L 22 - 29 Chloride 105 mmol/L 98 - 107 Creatinine 1.15 mg/dL 0.70 - 1.20 Glucose 223 mg/dL High 70 - 140 Potassium 4.2 mmol/L 3.4 - 5.1 Sodium 137 mmol/L 136 - 145 Blood Urea Nitrogen 29 mg/dL High 6 - 20 Anion Gap 10 mmol/L 8 - 15 Osmolality, Heladio 297 mosm/kg 275.0 - 300.0 BUN/Cre Ratio 25 Calcium 8.1 mg/dL Low 8.6 - 10.0 GFR Non 2008 CDK-Epi 68 >60 mL/min/1.73m2 GFR 2008 CKD-Epi 79 >60 mL/ min/1.73m2 Poct glucose, docked 04/20/2021 N2N/Direct CCD Impo rt Poc Glucose 226 mg/dL High 70 - 140 anti-Xa unfractionated heparin level 04/20/2021 N2N /Direct CCD Import Heparin Unfractionated 0.25 U/ml Lactic Acid Level, Plasma 04/20/2021 N2N/Direct CCD Import Lactic Acid 2.1 mmol/L 0.5 - 2.2 Troponin T High Sensitivity 04/20/2021 N2N/Direct C CD Import Troponin T High Sensitivity 33 ng/L High <22 Lyme IgG, IgM antibody 04/20/2021 N2N/Direct CCD Im port Lyme IgG antibody Negative Negative Lyme IgM antibody Negative Negative Poct glucose, docked 04/20/2021 N2N/Direct CCD Impo rt Poc Glucose 157 mg/dL High 70 - 140 Blood gas, arterial 04/20/2021 N2N/Direct CCD Impor t pH 7.40 7.38 - 7.44 pCO2, Arterial 39 mm[Hg] 35 - 40 pO2, Arterial 143 High 95 - 100 mmHg Oxygen Saturation 99 % 94 - 100 Base Excess Neg 1 Total Co2 25 mmol/L Fio2 0.40 Poct glucose, docked 04/20/2021 N2N/Direct CCD Impo rt Poc Glucose 250 mg/dL High 70 - 140 anti-Xa unfractionated heparin level 04/20/2021 N2N /Direct CCD Import Heparin Unfractionated 0.22 U/ml Troponin T High Sensitivity 04/20/2021 N2N/Direct C CD Import Troponin T High Sensitivity 22 ng/L High <22 Poct glucose, docked 04/20/2021 N2N/Direct CCD Impo rt Poc Glucose 298 mg/dL High 70 - 140 Protime-Inr 04/20/2021 N2N/Direct CCD Impor t PT Patient 13.6 s 11.6 - 14.0 Int'l Normalized Ratio 1.08 3 CBC and Differential 04/19/2021 N2N/Direct CCD Impo rt White Blood Cell 13.6 10*3/uL High 4.00 - 10.00 Red Blood Cell 5.00 10*6/uL 4.60 - 6.10 Hemoglobin 15.6 g/dL 13.5 - 18.0 Hematocrit 44.6 % 41.0 - 53.0 Mean Cell Volume 89.2 fL 80.0 - 96.0 Mean Cell Hemoglobin 31.2 pg 27.0 - 33.0 Mean Cell Hgb Conc 35.0 g/dL 32 - 36 Red Cell Dist Width 13.9 % 11.5 - 14.5 Platelet Count 195 10*3/uL 150 - 400 Differential Type Automated Diff Neutrophil 92 % Lymphocyte 6 % Monocyte 2 % Eosinophil 0 % Basophil 0 % Abs Neutrophil 12.46 10*3/uL High 1.80 - 7.00 Abs Lymphocyte 0.77 10*3/uL Low 1.20 - 4.00 Abs Monocyte 0.26 10*3/uL 0.00 - 0.80 Abs Eosinophil 0.01 10*3/uL 0.00 - 0.50 Abs Basophil 0.05 10*3/uL 0.00 - 0.20 Nucleated Red Blood Cells 0 /100{WBCs} 0 - 0 Drugs Of Abuse, Urine 04/19/2021 N2N/Direct CCD Imp ort Amphetamine Negative Negative Cutoff 1000 Benzodiazepine Negative Negative Cutoff 300 Cannabinoids Urine Negative Negative Cutoff 50 Cocaine Negative Negative Cutoff 300 Methadone (Dolophine) Negative Negative Cutoff 300 Opiates Positive Abnormal Negative Cutoff 300 4 Oxycodone Negative Negative Cutoff 100 Fentanyl Negative Negative Cutoff 1 Drug Interpretation (Note) 5 Metabolic Panel, Comprehensive 04/19/2021 N2N/Direc t CCD Import Albumin 4.3 g/dL 3.5 - 5.2 Bilirubin, Total 0.7 mg/dL <1.2 Calcium 8.3 mg/dL Low 8.6 - 10.0 Chloride 100 mmol/L 98 - 107 Creatinine 1.35 mg/dL High 0.70 - 1.20 Glucose 365 mg/dL High 70 - 140 Alkaline Phosphatase 110 U/L 40 - 129 Potassium 4.5 mmol/L 3.4 - 5.1 6 Total Protein 6.6 g/dL 6.4 - 8.3 Sodium 136 mmol/L 136 - 145 Ast/Sgo 17 U/L <40 7 Blood Urea Nitrogen 23 mg/dL High 6 - 20 Osmolality, Heladio 300 mosm/kg 275.0 - 300.0 BUN/Cre Ratio 17 Bicarbonate 19 mmol/L Low 22 - 29 Alt/SGP 20 U/L <41 Anion Gap 17 mmol/L High 8 - 15 GFR Non 2008 CDK-Epi 56 Low >60 mL/min/1.73m2 GFR 2008 CKD-Epi 65 >60 mL/ min/1.73m2 Troponin T High Sensitivity 04/19/2021 N2N/Direct C CD Import Troponin T High Sensitivity 30 ng/L High <22 Inflammatory C-Reactive Protein (CRP) 04/19/2021 N2 N/Direct CCD Import C Reactive Protein <3.0 <8.0 mg/L T4, free 04/19/2021 N2N/Direct CCD Impor t Free Thyroxine 1.09 ng/dL 0.93 - 1.70 TSH 04/19/2021 N2N/Direct CCD Impor t TSH 5.500 u[IU]/mL High 0.27 - 4.20 Lipid panel 04/19/2021 N2N/Direct CCD Impor t Cholesterol 177 mg/dL <200 Triglyceride 153 mg/dL High <150 HDL Cholesterol 43 mg/dL >40 LDL Cholesterol 104 mg/dL High <100 VLDL Cholesterol 31 mg/dL 16 - 42 Non HDL Cholesterol 134 mg/dL High <130 Blood gas, arterial 04/19/2021 N2N/Direct CCD Impor t pH 7.33 Low 7.38 - 7.44 pCO2, Arterial 42 mm[Hg] High 35 - 40 pO2, Arterial 117 High 95 - 100 mmHg Oxygen Saturation 99 % 94 - 100 Base Excess Neg 4 Total Co2 23 mmol/L Fio2 0.60 Protime-Inr 04/19/2021 N2N/Direct CCD Impor t PT Patient 13.6 s 11.6 - 14.0 Int'l Normalized Ratio 1.09 8 anti-Xa unfractionated heparin level 04/19/2021 N2N /Direct CCD Import Heparin Unfractionated 0.60 U/ml Hemoglobin A1c 04/19/2021 N2N/Direct CCD Impor t Hemoglobin A1c 8.3 % High 4.0 - 6.0 9 Estimated Avg Glucose 192 mg/dL High <126 Poct glucose, docked 04/19/2021 N2N/Direct CCD Impo rt Poc Glucose 329 mg/dL High 70 - 140 Sedimentation rate, automated 04/19/2021 N2N/Direct CCD Import Sed Rate - Esr Specimen unlabeled/mislabeled. Floor notified. <20 mm/hr Poct glucose, docked 04/19/2021 N2N/Direct CCD Impo rt Poc Glucose 278 mg/dL High 70 - 140 anti-Xa unfractionated heparin level 04/19/2021 N2N /Direct CCD Import Heparin Unfractionated 0.55 U/ml Blood gas, arterial 04/19/2021 N2N/Direct CCD Impor t pH 7.34 Low 7.38 - 7.44 pCO2, Arterial 41 mm[Hg] High 35 - 40 pO2, Arterial 109 High 95 - 100 mmHg Oxygen Saturation 98 % 94 - 100 Base Excess Neg 4 Total Co2 23 mmol/L Fio2 0.40 Covid-19 PCR 04/19/2021 N2N/Direct CCD Impor t Specimen Description Nasopharyngeal Swab Sars CoV-2 2018 nCoV Real-Time RT-PCR: Not Detected 2018 nCoV Real-Time RT-P Assay performed See Note 10 First Covid-19 Test? 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 No Date of symptom onset? (Yyyymmdd) Unknown Hospitalized for Covid-19? No Admitted to [facility] for Covid-19? Unknown Resident in a congregate (group) care setting? No ? Unknown Poct glucose, docked 04/19/2021 N2N/Direct CCD Impo rt Poc Glucose 260 mg/dL High 70 - 140 anti-Xa unfractionated heparin level 04/19/2021 N2N /Direct CCD Import Heparin Unfractionated 0.43 U/ml Lactic Acid Level, Plasma 04/19/2021 N2N/Direct CCD Import Lactic Acid 3.5 mmol/L High 0.5 - 2.2 BMP 11/16/2020 [facility] nter [phone] Glucose, Fasting 246 mg/dL High 70-100 Blood Urea Nitrogen 16 mg/dL Normal 7-18 Creatinine For GFR 1.01 mg/dL Normal 0.70-1.30 Glomerular Filtration Rate > 60.0 Normal >56 1 1 Sodium Level 141 mEq/L Normal 136-145 Potassium Serum 4.0 mEq/L Normal 3.5-5.1 Chloride Level 109 mEq/L High 98-107 Carbon Dioxide Level 28 mEq/L Normal 21-32 Anion Gap 4 mEq/L Low 8-16 Calcium Level 9.2 mg/dL Normal 8.5-10.1 Laboratory test finding 11/16/2020 [facility] [phone] NT-Pro BNP 94 pg/mL Normal <125 1 Routine intensity oral antic oagulation INR is typically 2.0-3.0. Target INR must be clinically individualized. 2 Hemolyzed 3 Routine intensity oral antic oagulation INR is typically 2.0-3.0. Target INR must be clinically individualized. 4 (NOTE) Positive results are presumptive and unconfirmed;confirmatory testing can be ordered at the [facility] at [phone] or [facility] at [phone] within 5 days of collection. 5 Results below the indicated cutoff (ng/mL), are reported as "Negative." Note: for medical purposes only; not valid for legal or employment testing. 6 Hemolyzed 7 Hemolyzed 8 Routine intensity oral antic oagulation INR is typically 2.0-3.0. Target INR must be clinically individualized. 9 (NOTE) <5.7% Average risk of diabetes(ADA) 5.7-6.4% Increased risk of diabetes(ADA) >/= 6.5% Diagnostic for diabetes(ADA) 10 Test performed using [employer] Covid-19 Direct Assay. This test is only for use under Food and Drug Administration's Emergency Use Authorization. Additional information is available on the following Fda websites for healthcare providers and patients. https://www.fda.gov/media/122160/download, https://www.fda.gov/media/368536/download 11 Units are mL/min/1.73 m2 Chronic Kidney Disease Staging per NKF: Stage I & II GFR >=60 Normal to Mildly Decreased Stage III GFR 30-59 Moderately Decreased Stage IV GFR 15-29 Severely Decreased Stage V GFR <15 Very Little GFR Left ESRD GFR <15 on PATTERN RULER Procedures Date Code Description Status 01/23/2021 31220 Echocardiogram 2-D Doppler Color Completed 11/16/2020 14792 Office/Outpatient Established Mo d MDM 30-39 Min Completed 11/16/2020 85475 ECG 12-Lead Completed Medical Devices Description No Information Available Encounters Type Date Location Provider Dx Diagnosis Office Visit 11/16/2020 2:00p Main Office MONICA Quintana R06 .02 Shortness of breath 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 I11.9 Hypertensive heart disease w ithout heart failure I77.810 Thoracic aortic ectasia I35.0 Nonrheumatic aortic (valve) stenosis R94.31 Abnormal electrocardiogram [ ECG] [EKG] E66.8 Other obesity Z71.3 Dietary counseling and surve illance Assessments Date Code Description Provider 01/23/2021 R06.02 Shortness of breath ECHO 11/16/2020 R06.02 Shortness of breath MONICA Quintana 11/16/2020 I25.10 Atherosclerotic heart disease of [place] coronary artery with MONICA Quintana 11/16/2020 I11.9 Hypertensive heart disease witho ut heart failure MONICA Quintana 11/16/2020 I77.810 Thoracic aortic ectasia MONICA Dutta 11/16/2020 I35.0 Nonrheumatic aortic (valve) sten osis MONICA Quintnaa 11/16/2020 R94.31 Abnormal electrocardiogram [ECG] [EKG] MONICA Quintana 11/16/2020 E66.8 Other obesity MONICA Mcnally Cha, se 11/16/2020 Z71.3 Dietary counseling and surveilla nce MONICA Quintana Plan of Treatment Future Appointment(s):* [...] breath * I25.10 Atherosclerotic heart disease of [place] coronary artery with* Recommendations:* Continue aspirin, losartan, [...] MD ECHO AUTH EMR-EXPIRES 04/15/21. [place] Created [id number] [facility] [id number] [phone]
--- OUTSIDE RECORDS SUMMARY | 2021-05-26 16:24 | CCD ---
Author Author [facility] Organization [facility] Address Unknown Phone Unavailable Care Team Providers Care Collection Supervisor Name Role Phone Galilea Roblero Unavailable PROBLEMS Type Condition ICD9-CM Code [id number] Code Onset Dates Condition S tatus W/U Status Risk SNOMED Code Notes Problem Obstructive sleep apnea G47.33 Active confirmed 81489451 Problem Asthma J45.909 Active confirmed 446597416 Problem Type 2 diabetes mellitus with hyperglycemia E11.65 Active confirmed 458772963333928 Problem Other and unspecified hyperlipidemia E78.5 Act artemio confirmed 11945127 Problem Other asthma J45.998 Active confirmed 696392 001 Problem Hypothyroidism, unspecified E03.9 Active confirmed 03438089 Problem Obstructive sleep apnea (adult) (pediatric) G47.33 Active confirmed 62632409 Problem Hypothyroidism E03.9 Active confirmed 08346 008 Problem Essential (primary) hypertension I10 Active conf irmed 01537277 Problem Other anxiety states F41.1 Active confirmed 471792575 Problem Type 2 diabetes mellitus without complications E11 .9 Active confirmed 482910764 Problem Depression, unspecified depression type F32.9 Active confirmed 05570658 Problem Coronary artery disease invo lving [place] heart with unstable angina pectoris, unspecified vessel or lesion type I25.110 Active confirmed 20568759 Problem LUCILA (obstructive sleep apnea) G47.33 Active confirm ed 33497928 Problem Other obesity E66.8 Active confirmed 738117 001 Problem Obesity E66.9 Active confirmed 055619132 Problem Right chronic serous otitis media H65.21 Active confirmed 702439949 Problem Other hyperlipidemia E78.4 Active confirmed 19413403 Problem DM w/o complication type II E11.9 Active confirmed 697117435 Problem Esophageal reflux K21.9 Active confirmed 23 0606895 Problem 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 Active confirmed 85790176 Problem Allergic rhinitis, unspecified J30.9 Active confir med 00341604 Problem Anxiety F41.9 Active confirmed 79949471 Problem 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 Active confirmed 13637063 ALLERGIES Allergen (clinical drug ingredient) Drug/Non Drug Allergy do cumented on EMR Reaction Allergy Type Onset Date Status pseudoephedrine Pseudoephedrine HCl([facility] Code:[address]- 61) hospitalized for hypertensive urgency Drug Allergy Active amoxicillin / clavulanate Augmentin([facility] Code:[address]-32) Unkn own Drug Allergy Active cefdinir Cefdinir([facility] Code:[address]-82) Tongue tingling Drug Freddie rgy Active Sulfasalazine Sulfa Antibiotics Anaphylaxis Drug Allergy A ctive Sulfur Anaphylaxis Drug Allergy Active [place] Ii Anaphylaxis Drug Allergy Active ENCOUNTERS from 1960 to 2021-05-01 Encounter Location Date Provider Diagnosis [address] [phone] [place] [address] Apr, 2021 Galileagonzales Roblero Anaphylaxis, subsequent encounter T78.2X XD and Right hand pain M79.641 IMMUNIZATIONS Vaccine Route Administration Date Status TDAP [...] Education Language: Question Answer Notes Languages spoken: Bulgarian Anabaptism: Question Answer Notes Anabaptism 08 Religion Sexual Hx: Question Answer Notes Had sex [...] c an per day REASON FOR REFERRAL from 1960 to 2021-05-01 Reason anaphylactic reaction to unk nown substance. please eval and treat Diagnosis 1 Anaphylaxis, subsequent enco unter (T78.2XXD) Referral Organization [facility] Referring Provider First Name Galilea Referring Provider Last Name Osbaldo Referring Provider Specialty Family Medicine Referred Provider Jesus Chun Referred Provider Specialty Allergy/Immunology Referral Priority Routine General Notes Amy Love 04/30/2021 11:42:55 AM > Referral sent. Reason right hand pain. please eval and treat. tendon tightening with pain along 3rd digit. Diagnosis 1 Right hand pain (M79.641) Referral Organization [facility] Referring Provider First Name Galilea Referring Provider Last Name Osbaldo Referring Provider Specialty Family Medicine Referred Provider Brice Shah Referred Provider Specialty Orthopedic Surgery Referral Priority Routine General Notes Amy Love 04/30/2021 11:43:08 AM > Referral sent. VITAL SIGNS Weight 249 lbs Apr, Weight-kg 112.95 kg Apr, Height 71 in Apr, BMI 34.72 kg/m2 Apr, Heart Rate 71 /min Apr, Respiratory Rate 20 /min Apr, Temperature 98.5 degrees Fahrenheit Apr, Oximetry 96 Apr, Blood pressure systolic 126 mm Hg Apr, Blood pressure diastolic 76 mm Hg Apr, MEDICATIONS Medication SIG (Take, Route, Frequency, Duration) Notes Start Da te End Date Status Paxil 20 MG 1 tablet in the morning Orally Once a day for 30 Days Active May Have - as directed BP cuff: I10.0 - for 30 Days Jul Active Admelog SoloStar 100 UNIT/ML as directed Subcutaneous sliding scale Active traMADol HCl 50 MG 1 tablet as needed Orally QID prn pain for 5 days Feb, Active Dexamethasone 2 MG 1 tablet Orally after finish ing 4 mg tabs Once a day for 7 day(s) Jul, Not-Taking tiZANidine HCl 4 MG 1 tablet as needed Orally Three times a day for 5 day(s) November, Not-Taking Pantoprazole Sodium 40 MG TAKE ONE TABLET BY MOUTH EVERY DAY for 30 Active Co Q 10 200 MG 1 capsule with a meal Orally BID Active Albuterol Sulfate HFA 108 (90 Base) MCG/ACT 1 puff as needed Inhalation every 6 hrs Active Zinc Oxide 12 % as directed Externally no percentage listed on d/c paper work Not-Taking Paxil 20 MG 1 tablet in the morning Orally Once a day for 30 Not-Taking Levothyroxine Sodium 125 MCG 1 tablet on an empty stom ach in the morning Orally Once a day Active Terbinafine HCl 1 % apply thick layer to groin e xternally three times a day for 30 Days Aug, Not-Taking Albuterol Sulfate (2.5 MG/3ML) 0.083% 3 ml as needed Inhalation jerri ry 6 hrs Active Benzonatate 100 MG 1 capsule as needed Orally Three times a day Not-Taking Levaquin 500 MG 1 tablet Orally Once a day for 10 day(s) 1 Feb, Not-Taking Flonase 50 MCG/ACT 1 spray in each nostril Nasally bid for 90 days Active Aspirin 81 81 MG 1 tablet Orally Once a day Active Probiotic Acidophilus - as directed Orally daily Not-Taking Combivent Respimat 20-100 mcg/act 1 puff Inhalation th ree times daily for 30 Days Active NovoLOG FlexPen 100 UNIT/ML sliding scale Subcutaneous between 10 and 28 units (Dr. Felipe) Not-Taking Chlorthalidone 25 MG 1 tablet in the morning with food Orally Once a day for 30 day(s) 1/2 tab M-W-F Sep, Active Nitroglycerin 0.4 MG Sublingual Act artemio Trulicity 1.5 MG/0.5ML Subcutaneous Active EpiPen Active Dicyclomine HCl 10 MG 1 capsules Orally every 6 ho urs as needed for irritable bowel symptoms Not-Taking Dexamethasone 4 MG 1 tablet Orally Once a day for 7 day(s) Not-Taking Losartan Potassium 100 MG 1 tablet Orally Once a day Active Naproxen 500 MG 1 tablet with food or milk a s needed Orally every 12 hrs for 5 day(s) November, Not-Taking Basaglar KwikPen 100 UNIT/ML 45 units Subcutaneous twice daily Active Omeprazole 20 MG ONE BY MOUTH EVERY DAY for 30 Not-Taking Tylenol Extra Strength 650 mg 1 tablet as needed Orally every 6 hrs as needed Active Atorvastatin Calcium 80 MG 1 tablet Orally Once a day Active Levemir 100 UNIT/ML DX : 250 Subcutaneous 60 units twice daily Not-Taking Vitamin D 1000 UNIT 2 tablet Orally twice daily Active ZyrTEC Allergy 10 MG 1 tablet Orally Once a day for 30 Days Active PROCEDURES No Information RESULTS No Results REASON FOR VISIT [facility] d/c 04/23 Anaphylaxix, Unstable angina, CAD, LBBB MEDICAL (GENERAL) HISTORY Type Description Date Medical [...] Surgical History EGD/colonoscopy 2010 Surgical History Angioplasty- [place]: Gerda 02/23 17 Surgical History Colonoscopy- Dr. Castellon. + adenoma: repe at due 04/2017 Surgical History Cardiac Stent: [facility] [place] 08/2017 Hospitalization History asthma exacerbation 09/2011 Hospitalization History unstable angina, angioplasty [facility] Hospitalization History [facility] [place]/Stent 08/2017 Hospitalization History [facility]-N/V/D-Colitis 06/[address] [facility] - Anaphylaxis 04/2021 Goals Section No Information Health Concerns No Information MEDICAL EQUIPMENT No Information MENTAL STATUS No Information FUNCTIONAL STATUS No Information ASSESSMENTS Encounter Date Diagnosis Assessment Notes Treatment Notes Treatm ent Clinical Notes Apr, Anaphylaxis, subsequent encounter (ICD-10 - T78. 2XXD) ? reaction to sulfur containing substance. Apr, Right hand pain (ICD-10 - M79.641) PLAN OF TREATMENT Medication Medication Name Sig Start Date Stop Date EpiPen Treatment Notes Assessment Notes Clinical Notes Anaphylaxis, subsequent encounter ? reac tion to sulfur containing substance. Referrals Referral Date Details anaphylactic reaction to unk nown substance. please eval and treat, Jesus Chun right hand pain. please eval and treat. tendon tightening with pain along 3rd digit., Brice Shah Next Appt Details as scheduled Reason: Provider Name:Galilea Roblero, 09-03 11:00:00 AM, [address], , [place], [address], Insurance Providers Payer Name Payer Address Payer Phone Insured Name Patient Relati onship to Insured Coverage Start Date Coverage End Date [facility] CORPORATE CLAIMS DEPT [address] [facility] [phone] MARILYN SHIELDS self
--- OUTSIDE RECORDS SUMMARY | 2021-05-26 16:24 | CCD ---
Author Author [facility] Organization [facility] Address Unknown Phone Unavailable Care Team Providers Care Parts Counter Clerk Name Role Phone Galilea Roblero Unavailable PROBLEMS Type Condition ICD9-CM Code [id number] Code Onset Dates Condition S tatus W/U Status Risk SNOMED Code Notes Problem Obstructive sleep apnea G47.33 Active confirmed 14573701 Problem Asthma J45.909 Active confirmed 070758415 Problem Type 2 diabetes mellitus with hyperglycemia E11.65 Active confirmed 694000879239617 Problem Other and unspecified hyperlipidemia E78.5 Act artemio confirmed 18088126 Problem Other asthma J45.998 Active confirmed 352695 001 Problem Hypothyroidism, unspecified E03.9 Active confirmed 28949495 Problem Obstructive sleep apnea (adult) (pediatric) G47.33 Active confirmed 19331938 Problem Hypothyroidism E03.9 Active confirmed 88648 008 Problem Essential (primary) hypertension I10 Active conf irmed 13963074 Problem Other anxiety states F41.1 Active confirmed 608821949 Problem Type 2 diabetes mellitus without complications E11 .9 Active confirmed 024168646 Problem Depression, unspecified depression type F32.9 Active confirmed 84520603 Problem Coronary artery disease invo lving [place] heart with unstable angina pectoris, unspecified vessel or lesion type I25.110 Active confirmed 38920726 Problem LUCILA (obstructive sleep apnea) G47.33 Active confirm ed 70842866 Problem Other obesity E66.8 Active confirmed 791711 001 Problem Obesity E66.9 Active confirmed 375604859 Problem Right chronic serous otitis media H65.21 Active confirmed 482945858 Problem Other hyperlipidemia E78.4 Active confirmed 52118709 Problem DM w/o complication type II E11.9 Active confirmed 660858167 Problem Esophageal reflux K21.9 Active confirmed 23 8722070 Problem 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 Active confirmed 38319878 Problem Allergic rhinitis, unspecified J30.9 Active confir med 68290211 Problem Anxiety F41.9 Active confirmed 94428159 Problem 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 Active confirmed 36425149 ALLERGIES Allergen (clinical drug ingredient) Drug/Non Drug Allergy do cumented on EMR Reaction Allergy Type Onset Date Status pseudoephedrine Pseudoephedrine HCl([facility] Code:[address]- 61) hospitalized for hypertensive urgency Drug Allergy Active amoxicillin / clavulanate Augmentin([facility] Code:[address]-86) Unkn own Drug Allergy Active cefdinir Cefdinir([facility] Code:[address]-86) Tongue tingling Drug Freddie rgy Active Sulfasalazine Sulfa Antibiotics anaphylaxis Drug Allergy A ctive [place] Anaphylaxis Drug Allergy Active ENCOUNTERS from 1960 to 2021-04-25 Encounter Location Date Provider Diagnosis [address] [facility] [phone] [place] [address] Apr, Galilea Roblero IMMUNIZATIONS Vaccine Route Administration Date Status TDAP [...] Education Language: Question Answer Notes Languages spoken: Taiwanese Presybeterian: Question Answer Notes Presybeterian 08 Tenriism Sexual Hx: Question Answer Notes Had sex [...] Notes Start Da te End Date Status Vitamin D 1000 UNIT 2 tablet Orally twice daily Active Dexamethasone 4 MG 1 tablet Orally Once a day for 7 day(s) Not-Taking Zinc Oxide 12 % as directed Externally no percentage listed on d/c paper work Not-Taking ZyrTEC Allergy 10 MG 1 tablet Orally Once a day for 30 Days Active Aspirin 81 81 MG 1 tablet Orally Once a day Active Combivent Respimat 20-100 mcg/act 1 puff Inhalation th ree times daily for 30 Days Active Admelog SoloStar 100 UNIT/ML as directed Subcutaneous sliding scale Active Dicyclomine HCl 10 MG 1 capsules Orally every 6 ho urs as needed for irritable bowel symptoms Not-Taking EpiPen Active Probiotic Acidophilus - as directed Orally daily Not-Taking Chlorthalidone 25 MG 1 tablet in the morning with food Orally Once a day for 30 day(s) 1/2 tab M-W-F Sep, Active Flonase 50 MCG/ACT 1 spray in each nostril Nasally bid for 90 days Active Benzonatate 100 MG 1 capsule as needed Orally Three times a day Not-Taking Levothyroxine Sodium 125 MCG 1 tablet on an empty stom ach in the morning Orally Once a day Active Paxil 20 MG 1 tablet in the morning Orally Once a day for 30 Not-Taking Basaglar KwikPen 100 UNIT/ML 45 units Subcutaneous twice daily Active tiZANidine HCl 4 MG 1 tablet as needed Orally Three times a day for 5 day(s) November, Not-Taking Co Q 10 200 MG 1 capsule with a meal Orally BID Active traMADol HCl 50 MG 1 tablet as needed Orally QID prn pain for 5 days Feb, Active Nitroglycerin 0.4 MG Sublingual Act artemio Albuterol Sulfate (2.5 MG/3ML) 0.083% 3 ml as needed Inhalation jerri ry 6 hrs Active Tylenol Extra Strength 650 mg 1 tablet as needed Orally every 6 hrs as needed Active Atorvastatin Calcium 80 MG 1 tablet Orally Once a day Active Levemir 100 UNIT/ML DX : 250 Subcutaneous 60 units twice daily Not-Taking Paxil 20 MG 1 tablet in the morning Orally Once a day for 30 Days Active Levaquin 500 MG 1 tablet Orally Once a day for 10 day(s) Feb, Not-Taking Dexamethasone 2 MG 1 tablet Orally after finish ing 4 mg tabs Once a day for 7 day(s) Jul, Not-Taking Terbinafine HCl 1 % apply thick layer to groin e xternally three times a day for 30 Days Aug, Not-Taking Losartan Potassium 100 MG 1 tablet Orally Once a day Active Trulicity 1.5 MG/0.5ML Subcutaneous Active Pantoprazole Sodium 40 MG TAKE ONE TABLET BY MOUTH EVERY DAY for 30 Active NovoLOG FlexPen 100 UNIT/ML sliding scale Subcutaneous between 10 and 28 units (Dr. Felipe) Not-Taking Naproxen 500 MG 1 tablet with food or milk a s needed Orally every 12 hrs for 5 day(s) November, Not-Taking May Have - as directed BP cuff: I10.0 - for 30 Days Jul Active Omeprazole 20 MG ONE BY MOUTH EVERY DAY for 30 Not-Taking Albuterol Sulfate HFA 108 (90 Base) MCG/ACT 1 puff as needed Inhalation every 6 hrs Active PROCEDURES No Information RESULTS No Results REASON FOR VISIT [address] d/c 04/23 MEDICAL (GENERAL) HISTORY Type Description Date Medical History LUCILA/ CPAP Pulmonary (last seen 06/16)- n ot using Medical History DM2: [place] Medical History Hypothyroidism: [place] Medical History GERD : diet controlled Medical [...] Surgical History septoplasty Surgical History cardiac cath ([facility]) 09/2012 Surgical History EGD/colonoscopy 2010 Surgical History Angioplasty- [facility] [place]: Gerda 02/23 17 Surgical History Colonoscopy- Dr. Castellon. + adenoma: repe at due 04/2017 Surgical History Cardiac Stent: [facility] 08/2017 Hospitalization History asthma exacerbation 09/2011 Hospitalization History unstable angina, angioplasty [facility] Hospitalization History [facility] [place]/St[place] 08/2017 Hospitalization History [facility]-N/V/D-Colitis 06/2020 Goals Section No Information Health Concerns No Information MEDICAL EQUIPMENT No Information MENTAL STATUS No Information FUNCTIONAL STATUS No Information ASSESSMENTS Encounter Date Diagnosis Assessment Notes Treatment Notes Treatm ent Clinical Notes Apr, Other [id number] @ 094 0: Outside Solar Sales Consultant called and spoke with pt and pt's spouse Olga. Pt reports he is doing a little better. Pt reports a tickle in throat and a dry cough. Pt 's spouse believes pt has had a dry cough for the past three months since medication changes but is unsure of which medication could be causing the cough. Pt reports he has been taking his nasal spray to help with current congestions. Pt reports he is in need of a referral to an varnishing unit tool setter. Pt verified current medications. Pt verified upcoming appointment. Please advise further on cough if needing to be addressed before appointment. Mervin Gleason RN. PLAN OF TREATMENT Next Appt Details Provider Name:Galilea Roblero, 2020-07 0 10:30:00 AM, [address] , , [place], [address], Provider Name:Galilea Roblero, 09-03 11:00:00 AM, [address], , [place], [address], Insurance Providers Payer Name Payer Address Payer Phone Insured Name Patient Relati onship to Insured Coverage Start Date Coverage End Date [facility] CLAIM[facility] DEPT [address] [facility] [phone] MARILYN SHIELDS self
--- OUTSIDE RECORDS SUMMARY | 2021-05-26 16:24 | CCD | Continuity of Care Document ---
Author Author [facility] Organization Unknown Address [address] [place] [address] Phone [phone] Care Team Providers Care Laboratory Mechanical Technician Name Role Phone Galilea Roblero-Gloria AUTM Central Scheduling AUTM [phone] AUTM Unavailable Problems Active Problems Provider Date Allergic asthma without status asthmaticus Onset: 05/08/2012 Essential hypertension Onset: 05/08/2012 Obstructive sleep apnea syndrome David Huerta.N.PRachael Onset: 11/02/2019 Social History Type Date Description Comments Sex Unknown Tobacco Use Start: Unknown Never Smoked Cigarettes Smoking Status Reviewed: 01/23/21 Never Smoked Cigarettes ETOH Use Denies alcohol use Tobacco Use Start: Unknown Chewing Tobacco 1/2 can daily Allergies and adverse reactions Active Allergies Criticality Reaction | Severity Comments Date Sulfa Unable to assess criticality 04/25/2016 Pseudoephedrine Unable to assess criticality 04/25/2016 Augmentin Unable to assess criticality 04/25/2016 Cefdinir Unable to assess criticality 04/25/2016 [place] Unable to assess criticality 04/25/2016 Inactive Allergies NKDA Unable to assess criticality 05/08/2012 Medications Active Medications SIG Qnty Indications Ordering Provide r Date CPAP Device 6cm marras Mervin HuertaNRachaelPRachael 12/15/2019 Milk Of Magnesia 7.75% Suspension take 45 milliliters by mouth about 1-2 days before colonoscopy prep 360ml R93.3 To Castellon MD 07/14/2019 Suprep Bowel Prep Kit 17.5-3.13-1.6GM/177ML Solution as directed - see dr mena instructions 1Kit R93.3 To Castellon MD 07/14/2019 Zinc Oxide 20% Ointment [...] before breakfast Unknown Fluticasone Propionate 50mcg/Act Suspension [place] One [place] In Each Nostril Twice A Day Unknown Tobramycin 0.3% Solution Sonal Cain, F.N.P. Atorvastatin Calcium 40mg Tablets once daily Jessie Dueñas, P.A. 000 Paroxetine HCL 20mg Tablets Galilea Roblero F.N.P.-C. BD Pen Needle/Original/Ultra-Fine/29G X 12.7mm 29G [...] lb BMI (Body Mass Index) 37.2 kg/m2 [place] Body Weight 166 lb Weight 117.482 kg BSA (Body Surface Area) 2.33 m2 12/07/2020 9:56am BP Systolic 170 mmHg BP Diastolic 80 mmHg Heart Rate 69 /min O2 % BldC Oximetry 96 % Height 70 inches 5'10" Weight 258.00 lb BMI (Body Mass Index) 37.0 kg/m2 [place] Body Weight 166 lb Weight 117.029 kg [...] L Fev6-%Pred-Pre 61 L Fev6-LLN 3.68 L Qlp6nkf-Rhad 76 % Wnx2aqd-Dyz 87 % Yxb3mnr-%Pred-Pre 114 % Nuh0qod-WZO 66 % Tai5rym-Xnus 96 % Bec1far-Poq 99 % Abz9zsh-%Pred-Pre 103 % FEFMax-Pred 9.30 L/E/sec FEFMax-Pre 5.43 L/E/sec FEFMax-%Pred-Pre 58 L/E/sec FEFMax-LLN 6.97 L/E/sec Qjv7322-Tqnr 3.02 L/E/sec Kwg9442-Pdv 2.76 L/E/sec Inh4149-%Pred-Pre 91 L/E/sec Yla3881-HCL 1.42 L/E/sec ExpTime-Pre 7.20 sec Fin7ahr1-Iqmd 79 % Qen6gtl3-Rab 87 % Psk9ubm1-%Pred-Pre 110 % Dcz5nqw9-RRJ 70 % Procedures Date Code Description Status 01/23/2021 71459 Office/Outpatient Established Mo d MDM 30-39 Min Completed 01/15/2021 98406 Diffusing Capacity Completed 01/15/2021 87220 Plethysmography Determination Ama ng Volumes & Per Airway Resist Completed 01/15/2021 75483 Bronchospasm Evaluation Complete d 12/07/2020 26224 Office/Outpatient Established Mo d MDM 30-39 Min Completed 12/07/2020 17428 Spirometry Completed 11/29/2020 07245 Office/Outpatient Established Mo d MDM 30-39 Min Completed Medical Devices Description No Information Available Encounters Type Date Location Provider Dx Diagnosis Office Visit 01/23/2021 2:30p [facility] Pulmonary/Thoracic Antonella lewsi A.N.PRachael J84.9 Interstitial pulmonary disease, unspecif ied R91.8 Other nonspecific abnormal f inding of lung field G47.33 Obstructive sleep apnea (abel lt) (pediatric) R94.2 Abnormal results of pulmonar y function studies Office Visit 11/29/2020 1:00p [facility] Gastroenterology Pra ajit Castellon MD R93.3 Abnormal findings on dx imag ing of prt digestive tract K62.5 Hemorrhage of anus and rectu m K75.81 Nonalcoholic steatohepatitis ([place]) Assessments Date Code Description Provider 01/23/2021 J84.9 Interstitial pulmonary disease, unspecified David Huerta.N.P. 01/23/2021 R91.8 Other nonspecific abnormal findi ng of lung field David Huerta.N.P. 01/23/2021 G47.33 Obstructive sleep apnea (adult) (pediatric) David Huerta.N.P. 01/23/2021 R94.2 Abnormal results of pulmonary fu nction studies David Huerta.N.P. 01/15/2021 R06.02 Shortness of breath Pulmonary La b 12/07/2020 R06.02 Shortness of breath David Huerta.N.P. 12/07/2020 R91.8 Other nonspecific abnormal findi ng of lung field Tiffanie Huerta 12/07/2020 Z86.16 Personal history of Covid-19 Mart Swanson i. 11/29/2020 R93.3 Abnormal findings on diagnostic imaging of other parts of digestive tract To Castellon MD 11/29/2020 K62.5 Hemorrhage of anus and rectum Da polly Castellon MD 11/29/2020 K75.81 Nonalcoholic steatohepatitis ([place]) To Castellon MD Plan of Treatment Future Appointment(s):* 07/30/2021 3:00 pm - Mervin HuertaNIsi at [facility] Pulmonary/Thoracic * 07/30/2021 2:00 pm - Pulmonary Lab at [facility] Pulmonary/Thoracic 01/23/2021 - Mervin HuertaNIsi* J84.9 Interstitial pulmonary disease, unspecified * R91.8 [...] Reason for Referral Status Appt Date Radiology/Procedure 82922 Closed 01/15/2021
--- OUTSIDE RECORDS SUMMARY | 2021-05-26 16:25 | CCD | Continuity of Care Document ---
Author Organization Unknown Address Unknown Phone Unavailable Care Team Providers Care Bodywork Therapist Name Role Phone Galilea Roblero TEREZA AUTM [phone] Tristan Fatima MD AUTM [phone] Problems Active Problems Provider Date Essential hypertension [...] 03/27/2021 Cefdinir Unable to assess criticality 03/27/2021 [place] Unable to assess criticality 03/27/2021 Pseudoephedrine Unable [...] mmol/L High 0.5 - 2.2 BMP 11/16/2020 [facility] nter [phone] Glucose, Fasting 246 mg/dL High 70-100 Blood [...] mg/dL Normal 8.5-10.1 Laboratory test finding 11/16/2020 [facility] [phone] NT-Pro BNP 94 pg/mL Normal <125 1 Routine intensity oral antic oagulation INR is typically 2.0-3.0. Target INR must be clinically individualized. 2 Hemolyzed 3 Routine intensity oral antic oagulation INR is typically 2.0-3.0. Target INR must be clinically individualized. 4 (NOTE) Positive results are presumptive and unconfirmed;confirmatory testing can be ordered at the [facility] at [phone] or [facility] at [phone] within 5 days of collection. 5 Results [...] Fda websites for healthcare providers and patients. https://www.fda.gov/media/980040/download, https://www.fda.gov/media/736539/download 11 Units are mL/min/1.73 m2 Chronic Kidney Disease Staging per NKF: Stage I & II GFR >=60 Normal to Mildly Decreased Stage III GFR 30-59 Moderately Decreased Stage IV GFR 15-29 Severely Decreased Stage V GFR <15 Very Little GFR Left ESRD GFR <15 on REFINERY OPERATOR ASSISTANT Procedures Date Code Description Status 01/23/2021 83365 Echocardiogram 2-D Doppler Color Completed 11/16/2020 71232 Office/Outpatient Established Mo d MDM 30-39 Min Completed 11/16/2020 24225 ECG 12-Lead Completed Medical Devices Description No [...] Quintana 11/16/2020 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 [place] Created [address] [facility] [address] [phone]
--- OUTSIDE RECORDS SUMMARY | 2021-05-26 16:25 | CCD | Continuity of Care Document ---
Author Organization Unknown Address Unknown Phone Unavailable Care Team Providers Care Machine Packager Name Role Phone Galilea Roblero TEREZA AUTM [phone] Tristan Fatima MD AUTM [phone] Problems Active Problems Provider Date Essential hypertension [...] 03/27/2021 Cefdinir Unable to assess criticality 03/27/2021 [place] Unable to assess criticality 03/27/2021 Pseudoephedrine Unable [...] mmol/L High 0.5 - 2.2 BMP 11/16/2020 [facility] nter [phone] Glucose, Fasting 246 mg/dL High 70-100 Blood [...] mg/dL Normal 8.5-10.1 Laboratory test finding 11/16/2020 [facility] [phone] NT-Pro BNP 94 pg/mL Normal <125 1 Routine intensity oral antic oagulation INR is typically 2.0-3.0. Target INR must be clinically individualized. 2 Hemolyzed 3 Routine intensity oral antic oagulation INR is typically 2.0-3.0. Target INR must be clinically individualized. 4 (NOTE) Positive results are presumptive and unconfirmed;confirmatory testing can be ordered at the [facility] at [phone] or [facility] at [phone] within 5 days of collection. 5 Results [...] Fda websites for healthcare providers and patients. https://www.fda.gov/media/477850/download, https://www.fda.gov/media/643805/download 11 Units are mL/min/1.73 m2 Chronic Kidney Disease Staging per NKF: Stage I & II GFR >=60 Normal to Mildly Decreased Stage III GFR 30-59 Moderately Decreased Stage IV GFR 15-29 Severely Decreased Stage V GFR <15 Very Little GFR Left ESRD GFR <15 on SHELLFISH MEAT SEPARATOR OPERATOR Procedures Date Code Description Status 01/23/2021 57440 Echocardiogram 2-D Doppler Color Completed 11/16/2020 62988 Office/Outpatient Established Mo d MDM 30-39 Min Completed 11/16/2020 74620 ECG 12-Lead Completed Medical Devices Description No [...] Quintana 11/16/2020 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 [place] Created [address] [facility] [address] [phone]
--- OUTSIDE RECORDS SUMMARY | 2021-05-26 16:25 | CCD | Continuity of Care Document ---
Author Organization Unknown Address Unknown Phone Unavailable Care Team Providers Care Hardboard Panel Printer Name Role Phone Galilea Roblero TEREZA AUTM [phone] Tristan Fatima MD AUTM [phone] Problems Active Problems Provider Date Essential hypertension [...] 03/27/2021 Cefdinir Unable to assess criticality 03/27/2021 [place] Unable to assess criticality 03/27/2021 Pseudoephedrine Unable [...] mmol/L High 0.5 - 2.2 BMP 11/16/2020 [facility] nter [phone] Glucose, Fasting 246 mg/dL High 70-100 Blood [...] mg/dL Normal 8.5-10.1 Laboratory test finding 11/16/2020 [facility] [phone] NT-Pro BNP 94 pg/mL Normal <125 1 Routine intensity oral antic oagulation INR is typically 2.0-3.0. Target INR must be clinically individualized. 2 Hemolyzed 3 Routine intensity oral antic oagulation INR is typically 2.0-3.0. Target INR must be clinically individualized. 4 (NOTE) Positive results are presumptive and unconfirmed;confirmatory testing can be ordered at the [facility] at [phone] or [facility] at [phone] within 5 days of collection. 5 Results [...] Fda websites for healthcare providers and patients. https://www.fda.gov/media/752688/download, https://www.fda.gov/media/313585/download 11 Units are mL/min/1.73 m2 Chronic Kidney Disease Staging per NKF: Stage I & II GFR >=60 Normal to Mildly Decreased Stage III GFR 30-59 Moderately Decreased Stage IV GFR 15-29 Severely Decreased Stage V GFR <15 Very Little GFR Left ESRD GFR <15 on OVERNIGHT CASHIER Procedures Date Code Description Status 01/23/2021 23115 Echocardiogram 2-D Doppler Color Completed 11/16/2020 06340 Office/Outpatient Established Mo d MDM 30-39 Min Completed 11/16/2020 60043 ECG 12-Lead Completed Medical Devices Description No [...] Quintana 11/16/2020 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 [place] Created [address] [facility] [address] [phone]
--- OUTSIDE RECORDS SUMMARY | 2021-05-26 16:25 | CCD | Continuity of Care Document ---
Author Organization Unknown Address Unknown Phone Unavailable Care Team Providers Care First Grade Teacher Name Role Phone Galilea Roblero TEREZA AUTM [phone] Tristan Fatima MD AUTM Problems Active Problems [...] 03/27/2021 Cefdinir Unable to assess criticality 03/27/2021 [place] Unable to assess criticality 03/27/2021 Pseudoephedrine Unable to assess criticality 03/27/2021 Medications Active Medications SIG Qnty Indications Ordering Provide r Date Dilt-XR 120mg Caps ER 24HR 1 by mouth every day in the morning 90caps I11.9 Eren uGtierrez MD 11/04 Basaglar Kwikpen 100 Unit/ML Solution [...] mmol/L High 0.5 - 2.2 BMP 11/16/2020 [facility] nter [phone] Glucose, Fasting 246 mg/dL High 70-100 Blood [...] mg/dL Normal 8.5-10.1 Laboratory test finding 11/16/2020 [facility] [phone] NT-Pro BNP 94 pg/mL Normal <125 1 Routine intensity oral antic oagulation INR is typically 2.0-3.0. Target INR must be clinically individualized. 2 Hemolyzed 3 Routine intensity oral antic oagulation INR is typically 2.0-3.0. Target INR must be clinically individualized. 4 (NOTE) Positive results are presumptive and unconfirmed;confirmatory testing can be ordered at the [facility] at [phone] or [facility] at [phone] within 5 days of collection. 5 Results [...] Fda websites for healthcare providers and patients. https://www.fda.gov/media/108266/download, https://www.fda.gov/media/024705/download 11 Units are mL/min/1.73 m2 Chronic Kidney Disease Staging per NKF: Stage I & II GFR >=60 Normal to Mildly Decreased Stage III GFR 30-59 Moderately Decreased Stage IV GFR 15-29 Severely Decreased Stage V GFR <15 Very Little GFR Left ESRD GFR <15 on SENIOR PROGRAM ANALYST Procedures Date Code Description Status 01/23/2021 37269 Echocardiogram 2-D Doppler Color Completed 11/16/2020 31433 Office/Outpatient Established Mo d MDM 30-39 Min Completed 11/16/2020 04133 ECG 12-Lead Completed Medical Devices Description No [...] Quintana 11/16/2020 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 [place] Created [address] [facility] [address] [phone]
--- OUTSIDE RECORDS SUMMARY | 2021-05-26 16:25 | CCD | Continuity of Care Document ---
Author Organization Unknown Address Unknown Phone Unavailable Care Team Providers Care Naval Architect Specialist Name Role Phone Galilea Roblero TEREZA AUTM [phone] Tristan Fatima MD AUTM Problems Active Problems [...] 03/27/2021 Cefdinir Unable to assess criticality 03/27/2021 [place] Unable to assess criticality 03/27/2021 Pseudoephedrine Unable [...] mmol/L High 0.5 - 2.2 BMP 11/16/2020 [facility] nter [phone] Glucose, Fasting 246 mg/dL High 70-100 Blood [...] mg/dL Normal 8.5-10.1 Laboratory test finding 11/16/2020 [facility] [phone] NT-Pro BNP 94 pg/mL Normal <125 1 Routine intensity oral antic oagulation INR is typically 2.0-3.0. Target INR must be clinically individualized. 2 Hemolyzed 3 Routine intensity oral antic oagulation INR is typically 2.0-3.0. Target INR must be clinically individualized. 4 (NOTE) Positive results are presumptive and unconfirmed;confirmatory testing can be ordered at the [facility] at [phone] or [facility] at [phone] within 5 days of collection. 5 Results [...] Fda websites for healthcare providers and patients. https://www.fda.gov/media/153392/download, https://www.fda.gov/media/670979/download 11 Units are mL/min/1.73 m2 Chronic Kidney Disease Staging per NKF: Stage I & II GFR >=60 Normal to Mildly Decreased Stage III GFR 30-59 Moderately Decreased Stage IV GFR 15-29 Severely Decreased Stage V GFR <15 Very Little GFR Left ESRD GFR <15 on MILITARY TECHNOLOGY MANAGER Procedures Date Code Description Status 01/23/2021 03874 Echocardiogram 2-D Doppler Color Completed 11/16/2020 27408 Office/Outpatient Established Mo d MDM 30-39 Min Completed 11/16/2020 03103 ECG 12-Lead Completed Medical Devices Description No [...] Quintana 11/16/2020 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 [place] Created [address] [facility] [address] [phone]
--- OUTSIDE RECORDS SUMMARY | 2021-05-26 16:25 | CCD | Continuity of Care Document ---
Author Organization Unknown Address Unknown Phone Unavailable Care Team Providers Care Road Monkey Name Role Phone Galilea Roblero TEREZA AUTM [phone] Tristan Fatima MD AUTM Problems Active Problems [...] heart disease without congestive h eart failure Erne Gutierrez MD Onset: 09/10/2018 Obesity MONICA Jacobo [...] 03/27/2021 Cefdinir Unable to assess criticality 03/27/2021 [place] Unable to assess criticality 03/27/2021 Pseudoephedrine Unable [...] mmol/L High 0.5 - 2.2 BMP 11/16/2020 [facility] nter [phone] Glucose, Fasting 246 mg/dL High 70-100 Blood [...] mg/dL Normal 8.5-10.1 Laboratory test finding 11/16/2020 [facility] [phone] NT-Pro BNP 94 pg/mL Normal <125 1 Routine intensity oral antic oagulation INR is typically 2.0-3.0. Target INR must be clinically individualized. 2 Hemolyzed 3 Routine intensity oral antic oagulation INR is typically 2.0-3.0. Target INR must be clinically individualized. 4 (NOTE) Positive results are presumptive and unconfirmed;confirmatory testing can be ordered at the [facility] at [phone] or [facility] at [phone] within 5 days of collection. 5 Results [...] Fda websites for healthcare providers and patients. https://www.fda.gov/media/623556/download, https://www.fda.gov/media/776659/download 11 Units are mL/min/1.73 m2 Chronic Kidney Disease Staging per NKF: Stage I & II GFR >=60 Normal to Mildly Decreased Stage III GFR 30-59 Moderately Decreased Stage IV GFR 15-29 Severely Decreased Stage V GFR <15 Very Little GFR Left ESRD GFR <15 on PARACHUTE CROWN SEWER Procedures Date Code Description Status 01/23/2021 68567 Echocardiogram 2-D Doppler Color Completed 11/16/2020 44204 Office/Outpatient Established Mo d MDM 30-39 Min Completed 11/16/2020 78135 ECG 12-Lead Completed Medical Devices Description No [...] Quintana 11/16/2020 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 [place] Created [address] [facility] [address] [phone]
--- OUTSIDE RECORDS SUMMARY | 2021-05-26 16:26 | CCD | Continuity of Care Document ---
Author Organization Unknown Address Unknown Phone Unavailable Care Team Providers Care Contact Center Analyst Name Role Phone Galilea Roblero TEREZA AUTM [phone] Tristan Fatima MD AUTM Problems Active Problems [...] 03/27/2021 Cefdin[place] Unable to assess criticality 03/27/2021 [place] Unable to assess criticality 03/27/2021 Pseudoephedrine Unable [...] mmol/L High 0.5 - 2.2 BMP 11/16/2020 [facility] nter [phone] Glucose, Fasting 246 mg/dL High 70-100 Blood [...] mg/dL Normal 8.5-10.1 Laboratory test finding 11/16/2020 [facility] [phone] NT-Pro BNP 94 pg/mL Normal <125 1 Routine intensity oral antic oagulation INR is typically 2.0-3.0. Target INR must be clinically individualized. 2 Hemolyzed 3 Routine intensity oral antic oagulation INR is typically 2.0-3.0. Target INR must be clinically individualized. 4 (NOTE) Positive results are presumptive and unconfirmed;confirmatory testing can be ordered at the [facility] at [phone] or [facility] at [phone] within 5 days of collection. 5 Results [...] Fda websites for healthcare providers and patients. https://www.fda.gov/media/817086/download, https://www.fda.gov/media/141417/download 11 Units are mL/min/1.73 m2 Chronic Kidney Disease Staging per NKF: Stage I & II GFR >=60 Normal to Mildly Decreased Stage III GFR 30-59 Moderately Decreased Stage IV GFR 15-29 Severely Decreased Stage V GFR <15 Very Little GFR Left ESRD GFR <15 on FIELD SUPERVISOR SEED PRODUCTION Procedures Date Code Description Status 01/23/2021 19154 Echocardiogram 2-D Doppler Color Completed 11/16/2020 80447 Office/Outpatient Established Mo d MDM 30-39 Min Completed 11/16/2020 49720 ECG 12-Lead Completed Medical Devices Description No Information Available Encounters Type Date Location Provider Dx Diagnosis Office Visit 11/16/2020 2:00p Main Office MONICA Quintana R06 .02 Shortness of breath 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 I11.9 Hypertensive heart disease w ithout heart failure I77.810 Thoracic aortic ectasia I35.0 Nonrheumatic aortic (valve) stenosis R94.31 Abnormal electrocardiogram [ ECG] [EKG] E66.8 Other obesity Z71.3 Dietary counseling and surve illance Assessments Date Code Description Provider 01/23/2021 R06.02 Shortness of breath ECHO 11/16/2020 R06.02 Shortness of breath MONICA Quintana 11/16/2020 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 [place] Created [address] [facility] [address] [phone]
--- OUTSIDE RECORDS SUMMARY | 2021-05-26 16:26 | CCD | Continuity of Care Document ---
Author Organization Unknown Address Unknown Phone Unavailable Care Team Providers Care Pyrometer Mechanic Name Role Phone Galilea Roblero TEREZA AUTM [phone] Tristan Fatima MD AUTM [phone] Problems Active Problems Provider Date Essential hypertension [...] 03/27/2021 Cefdin[place] Unable to assess criticality 03/27/2021 [place] [place] Unable to assess criticality 03/27/2021 Pseudoephedrine Unable [...] mmol/L High 0.5 - 2.2 BMP 11/16/2020 [facility] nter [phone] Glucose, Fasting 246 mg/dL High 70-100 Blood [...] mg/dL Normal 8.5-10.1 Laboratory test finding 11/16/2020 [facility] [phone] NT-Pro BNP 94 pg/mL Normal <125 1 Routine intensity oral antic oagulation INR is typically 2.0-3.0. Target INR must be clinically individualized. 2 Hemolyzed 3 Routine intensity oral antic oagulation INR is typically 2.0-3.0. Target INR must be clinically individualized. 4 (NOTE) Positive results are presumptive and unconfirmed;confirmatory testing can be ordered at the [facility] at [phone] or [facility] at [phone] within 5 days of collection. 5 Results [...] Fda websites for healthcare providers and patients. https://www.fda.gov/media/539054/download, https://www.fda.gov/media/437017/download 11 Units are mL/min/1.73 m2 Chronic Kidney Disease Staging per NKF: Stage I & II GFR >=60 Normal to Mildly Decreased Stage III GFR 30-59 Moderately Decreased Stage IV GFR 15-29 Severely Decreased Stage V GFR <15 Very Little GFR Left ESRD GFR <15 on LAMP SHADE SEWER Procedures Date Code Description Status 01/23/2021 25175 Echocardiogram 2-D Doppler Color Completed 11/16/2020 39411 Office/Outpatient Established Mo d MDM 30-39 Min Completed 11/16/2020 19229 ECG 12-Lead Completed Medical Devices Description No [...] Quintana 11/16/2020 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 [place] Created [address] [facility] [address] [phone]
--- OUTSIDE RECORDS SUMMARY | 2021-05-26 16:26 | CCD | Continuity of Care Document ---
Author Organization Unknown Address Unknown Phone Unavailable Care Team Providers Care Aoc Director Intelligence Officer Name Role Phone Galilea Roblero TEREZA AUTM [phone] Tristan Fatima MD AUTM Problems Active Problems Provider Date Essential hypertension Eren Gutierrez MD Onset: 03/13/2018 Hypothyroidism Eren Gutierrez MD Onset: 03/13/2018 Body mass index 30+ - obesity rEen Gutierrez MD Onset: 01/2018 Multi vessel coronary [...] 03/27/2021 Cefdin[place] Unable to assess criticality 03/27/2021 [place] Unable to assess criticality 03/27/2021 Pseudoephedrine Unable [...] mmol/L High 0.5 - 2.2 BMP 11/16/2020 [facility] nter [phone] Glucose, Fasting 246 mg/dL High 70-100 Blood [...] mg/dL Normal 8.5-10.1 Laboratory test finding 11/16/2020 [facility] [phone] NT-Pro BNP 94 pg/mL Normal <125 1 Routine intensity oral antic oagulation INR is typically 2.0-3.0. Target INR must be clinically individualized. 2 Hemolyzed 3 Routine intensity oral antic oagulation INR is typically 2.0-3.0. Target INR must be clinically individualized. 4 (NOTE) Positive results are presumptive and unconfirmed;confirmatory testing can be ordered at the [facility] at [phone] or [facility] at [phone] within 5 days of collection. 5 Results [...] Fda websites for healthcare providers and patients. https://www.fda.gov/media/935121/download, https://www.fda.gov/media/390345/download 11 Units are mL/min/1.73 m2 Chronic Kidney Disease Staging per NKF: Stage I & II GFR >=60 Normal to Mildly Decreased Stage III GFR 30-59 Moderately Decreased Stage IV GFR 15-29 Severely Decreased Stage V GFR <15 Very Little GFR Left ESRD GFR <15 on RECYCLING SPECIALIST Procedures Date Code Description Status 01/23/2021 75284 Echocardiogram 2-D Doppler Color Completed 11/16/2020 16633 Office/Outpatient Established Mo d MDM 30-39 Min Completed 11/16/2020 70466 ECG 12-Lead Completed Medical Devices Description No [...] Quintana 11/16/2020 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 [place] Created [address] [facility] [address] [phone]
--- OUTSIDE RECORDS SUMMARY | 2021-05-26 16:26 | CCD | Continuity of Care Document ---
Author Organization Unknown Address Unknown Phone Unavailable Care Team Providers Care Material Preparation Worker Name Role Phone Galilea Roblero TEREZA AUTM [phone] Tristan Fatima MD AUTM [phone] Problems Active Problems Provider Date Essential hypertension [...] 03/27/2021 Cefdin[place] Unable to assess criticality 03/27/2021 [place] Unable to assess criticality 03/27/2021 Pseudoephedrine Unable [...] mmol/L High 0.5 - 2.2 BMP 11/16/2020 [facility] nter [phone] Glucose, Fasting 246 mg/dL High 70-100 Blood [...] mg/dL Normal 8.5-10.1 Laboratory test finding 11/16/2020 [facility] [phone] NT-Pro BNP 94 pg/mL Normal <125 1 Routine intensity oral antic oagulation INR is typically 2.0-3.0. Target INR must be clinically individualized. 2 Hemolyzed 3 Routine intensity oral antic oagulation INR is typically 2.0-3.0. Target INR must be clinically individualized. 4 (NOTE) Positive results are presumptive and unconfirmed;confirmatory testing can be ordered at the [facility] at [phone] or [facility] at [phone] within 5 days of collection. 5 Results [...] Fda websites for healthcare providers and patients. https://www.fda.gov/media/687538/download, https://www.fda.gov/media/480105/download 11 Units are mL/min/1.73 m2 Chronic Kidney Disease Staging per NKF: Stage I & II GFR >=60 Normal to Mildly Decreased Stage III GFR 30-59 Moderately Decreased Stage IV GFR 15-29 Severely Decreased Stage V GFR <15 Very Little GFR Left ESRD GFR <15 on REGIONAL OPERATIONS DIRECTOR Procedures Date Code Description Status 01/23/2021 95972 Echocardiogram 2-D Doppler Color Completed 11/16/2020 74692 Office/Outpatient Established Mo d MDM 30-39 Min Completed 11/16/2020 19748 ECG 12-Lead Completed Medical Devices Description No [...] Quintana 11/16/2020 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 [place] Created [address] [facility] [address] [phone]
--- OUTSIDE RECORDS SUMMARY | 2021-05-26 16:26 | CCD | Continuity of Care Document ---
Author Organization Unknown Address Unknown Phone Unavailable Care Team Providers Care Mortar Mixer Operator Name Role Phone Galilea Roblero TEREZA AUTM [phone] Tristan Fatima MD AUTM [phone] Problems Active Problems Provider Date Essential hypertension [...] 03/27/2021 Cefdinir Unable to assess criticality 03/27/2021 [place] Unable to assess criticality 03/27/2021 Pseudoephedrine Unable [...] mmol/L High 0.5 - 2.2 BMP 11/16/2020 [facility] nter [phone] Glucose, Fasting 246 mg/dL High 70-100 Blood [...] mg/dL Normal 8.5-10.1 Laboratory test finding 11/16/2020 [facility] [phone] NT-Pro BNP 94 pg/mL Normal <125 1 Routine intensity oral antic oagulation INR is typically 2.0-3.0. Target INR must be clinically individualized. 2 Hemolyzed 3 Routine intensity oral antic oagulation INR is typically 2.0-3.0. Target INR must be clinically individualized. 4 (NOTE) Positive results are presumptive and unconfirmed;confirmatory testing can be ordered at the [facility] at [phone] or [facility] at [phone] within 5 days of collection. 5 Results [...] Fda websites for healthcare providers and patients. https://www.fda.gov/media/070497/download, https://www.fda.gov/media/840519/download 11 Units are mL/min/1.73 m2 Chronic Kidney Disease Staging per NKF: Stage I & II GFR >=60 Normal to Mildly Decreased Stage III GFR 30-59 Moderately Decreased Stage IV GFR 15-29 Severely Decreased Stage V GFR <15 Very Little GFR Left ESRD GFR <15 on SUPPLY CHAIN SPECIALIST Procedures Date Code Description Status 01/23/2021 03259 Echocardiogram 2-D Doppler Color Completed 11/16/2020 34489 Office/Outpatient Established Mo d MDM 30-39 Min Completed 11/16/2020 38776 ECG 12-Lead Completed Medical Devices Description No [...] Quintana 11/16/2020 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 [place] Created [address] [facility] [address] [phone]
--- OUTSIDE RECORDS SUMMARY | 2021-05-26 16:26 | CCD | Continuity of Care Document ---
Author Organization Unknown Address Unknown Phone Unavailable Care Team Providers Care Rack Carrier Name Role Phone Galilea Roblero TEREZA AUTM [phone] Tristan Fatima MD AUTM Problems Active Problems [...] failure Eren Gutierrez MD Onset: 09/10/2018 Obesity OMNICA aJcobo Onset: 04/01/2019 Dietary management surveillance MONICA Jacobo [...] 03/27/2021 Cefdinir Unable to assess criticality 03/27/2021 [place] Unable to assess criticality 03/27/2021 Pseudoephedrine Unable [...] mmol/L High 0.5 - 2.2 BMP 11/16/2020 [facility] nter [phone] Glucose, Fasting 246 mg/dL High 70-100 Blood [...] mg/dL Normal 8.5-10.1 Laboratory test finding 11/16/2020 [facility] [phone] NT-Pro BNP 94 pg/mL Normal <125 1 Routine intensity oral antic oagulation INR is typically 2.0-3.0. Target INR must be clinically individualized. 2 Hemolyzed 3 Routine intensity oral antic oagulation INR is typically 2.0-3.0. Target INR must be clinically individualized. 4 (NOTE) Positive results are presumptive and unconfirmed;confirmatory testing can be ordered at the [facility] at [phone] or [facility] at [phone] within 5 days of collection. 5 Results [...] Fda websites for healthcare providers and patients. https://www.fda.gov/media/775451/download, https://www.fda.gov/media/497704/download 11 Units are mL/min/1.73 m2 Chronic Kidney Disease Staging per NKF: Stage I & II GFR >=60 Normal to Mildly Decreased Stage III GFR 30-59 Moderately Decreased Stage IV GFR 15-29 Severely Decreased Stage V GFR <15 Very Little GFR Left ESRD GFR <15 on ROUSTABOUT CREW Procedures Date Code Description Status 01/23/2021 73641 Echocardiogram 2-D Doppler Color Completed 11/16/2020 90757 Office/Outpatient Established Mo d MDM 30-39 Min Completed 11/16/2020 20260 ECG 12-Lead Completed Medical Devices Description No [...] Quintana 11/16/2020 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 [place] Created [address] [facility] [address] [phone]
--- OUTSIDE RECORDS SUMMARY | 2021-05-26 16:27 | CCD | Continuity of Care Document ---
Author Organization Unknown Address Unknown Phone Unavailable Care Team Providers Care Certified Professional Controller Name Role Phone Galilea Roblero TEREZA AUTM [phone] Tristan Fatima MD AUTM [phone] Problems Active Problems Provider Date Essential hypertension [...] 03/27/2021 Cefdinir Unable to assess criticality 03/27/2021 [place] Unable to assess criticality 03/27/2021 Pseudoephedrine Unable [...] mmol/L High 0.5 - 2.2 BMP 11/16/2020 [facility] nter [phone] Glucose, Fasting 246 mg/dL High 70-100 Blood [...] 8.5-10.1 Laboratory test finding 11/16/2020 [facility] [phone] NT-Pro BNP 94 pg/mL Normal <125 1 Routine intensity oral antic oagulation INR is typically 2.0-3.0. Target INR must be clinically individualized. 2 Hemolyzed 3 Routine intensity oral antic oagulation INR is typically 2.0-3.0. Target INR must be clinically individualized. 4 (NOTE) Positive results are presumptive and unconfirmed;confirmatory testing can be ordered at the [facility] at [phone] or [facility] at [phone] within 5 days of collection. 5 Results [...] Fda websites for healthcare providers and patients. https://www.fda.gov/media/841733/download, https://www.fda.gov/media/976176/download 11 Units are mL/min/1.73 m2 Chronic Kidney Disease Staging per NKF: Stage I & II GFR >=60 Normal to Mildly Decreased Stage III GFR 30-59 Moderately Decreased Stage IV GFR 15-29 Severely Decreased Stage V GFR <15 Very Little GFR Left ESRD GFR <15 on AUDIOLOGY DIRECTOR Procedures Date Code Description Status 01/23/2021 62224 Echocardiogram 2-D Doppler Color Completed 11/16/2020 06387 Office/Outpatient Established Mo d MDM 30-39 Min Completed 11/16/2020 52576 ECG 12-Lead Completed Medical Devices Description No [...] 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 [place] Created [address] [facility] [address] [phone]
--- OUTSIDE RECORDS SUMMARY | 2021-05-26 16:27 | CCD | Continuity of Care Document ---
Author Organization Unknown Address Unknown Phone Unavailable Care Team Providers Care Ct Scan Tech Name Role Phone Galilea Roblero TEREZA AUTM [phone] Tristan Fatima MD AUTM Problems Active Problems [...] 03/27/2021 Cefdinir Unable to assess criticality 03/27/2021 [place] Unable to assess criticality 03/27/2021 Pseudoephedrine Unable [...] mmol/L High 0.5 - 2.2 BMP 11/16/2020 [facility] nter [phone] Glucose, Fasting 246 mg/dL High 70-100 Blood [...] mg/dL Normal 8.5-10.1 Laboratory test finding 11/16/2020 [facility] [phone] NT-Pro BNP 94 pg/mL Normal <125 1 Routine intensity oral antic oagulation INR is typically 2.0-3.0. Target INR must be clinically individualized. 2 Hemolyzed 3 Routine intensity oral antic oagulation INR is typically 2.0-3.0. Target INR must be clinically individualized. 4 (NOTE) Positive results are presumptive and unconfirmed;confirmatory testing can be ordered at the [facility] at [phone] or [facility] at [phone] within 5 days of collection. 5 Results [...] Fda websites for healthcare providers and patients. https://www.fda.gov/media/089626/download, https://www.fda.gov/media/938196/download 11 Units are mL/min/1.73 m2 Chronic Kidney Disease Staging per NKF: Stage I & II GFR >=60 Normal to Mildly Decreased Stage III GFR 30-59 Moderately Decreased Stage IV GFR 15-29 Severely Decreased Stage V GFR <15 Very Little GFR Left ESRD GFR <15 on [employer] Procedures Date Code Description Status 01/23/2021 95372 Echocardiogram 2-D Doppler Color Completed 11/16/2020 58387 Office/Outpatient Established Mo d MDM 30-39 Min Completed 11/16/2020 62562 ECG 12-Lead Completed Medical Devices Description No [...] Quintana 11/16/2020 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 [place] Created [address] [facility] [address] [phone]
--- OUTSIDE RECORDS SUMMARY | 2021-05-26 16:27 | CCD | Continuity of Care Document ---
Author Organization Unknown Address Unknown Phone Unavailable Care Team Providers Care Inspector Plating Name Role Phone Galilea Roblero TEREZA AUTM [phone] Tristan Fatima MD AUTM Problems Active Problems [...] MONICA Jacobo Onset: 04/01/2019 Chest pain MONICA Jacoob Onset: 04/30/2019 Preoperative cardiovascular examination MONICA Jacobo [...] 03/27/2021 Cefdinir Unable to assess criticality 03/27/2021 [place] Unable to assess criticality 03/27/2021 Pseudoephedrine Unable [...] mmol/L High 0.5 - 2.2 BMP 11/16/2020 [facility] nter [phone] Glucose, Fasting 246 mg/dL High 70-100 Blood [...] mg/dL Normal 8.5-10.1 Laboratory test finding 11/16/2020 [facility] [phone] NT-Pro BNP 94 pg/mL Normal <125 1 Routine intensity oral antic oagulation INR is typically 2.0-3.0. Target INR must be clinically individualized. 2 Hemolyzed 3 Routine intensity oral antic oagulation INR is typically 2.0-3.0. Target INR must be clinically individualized. 4 (NOTE) Positive results are presumptive and unconfirmed;confirmatory testing can be ordered at the [facility] at [phone] or [facility] at [phone] within 5 days of collection. 5 Results [...] Fda websites for healthcare providers and patients. https://www.fda.gov/media/303881/download, https://www.fda.gov/media/776234/download 11 Units are mL/min/1.73 m2 Chronic Kidney Disease Staging per NKF: Stage I & II GFR >=60 Normal to Mildly Decreased Stage III GFR 30-59 Moderately Decreased Stage IV GFR 15-29 Severely Decreased Stage V GFR <15 Very Little GFR Left ESRD GFR <15 on RADAR SIGNAL PROCESSING ENGINEER Procedures Date Code Description Status 01/23/2021 92628 Echocardiogram 2-D Doppler Color Completed 11/16/2020 64087 Office/Outpatient Established Mo d MDM 30-39 Min Completed 11/16/2020 86545 ECG 12-Lead Completed Medical Devices Description No [...] Quintana 11/16/2020 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 [place] Created [address] [facility] [address] [phone]
--- OUTSIDE RECORDS SUMMARY | 2021-05-26 16:27 | CCD | Continuity of Care Document ---
Author Organization Unknown Address Unknown Phone Unavailable Care Team Providers Care Master Sheet Clerk Name Role Phone Galilea Roblero TEREZA AUTM [phone] Tristan Fatima MD AUTM Problems Active Problems [...] 03/27/2021 Cefdinir Unable to assess criticality 03/27/2021 [place] Unable to assess criticality 03/27/2021 Pseudoephedrine Unable [...] mmol/L High 0.5 - 2.2 BMP 11/16/2020 [facility] nter [phone] Glucose, Fasting 246 mg/dL High 70-100 Blood [...] mg/dL Normal 8.5-10.1 Laboratory test finding 11/16/2020 [facility] [phone] NT-Pro BNP 94 pg/mL Normal <125 1 Routine intensity oral antic oagulation INR is typically 2.0-3.0. Target INR must be clinically individualized. 2 Hemolyzed 3 Routine intensity oral antic oagulation INR is typically 2.0-3.0. Target INR must be clinically individualized. 4 (NOTE) Positive results are presumptive and unconfirmed;confirmatory testing can be ordered at the [facility] at [phone] or [facility] at [phone] within 5 days of collection. 5 Results [...] Fda websites for healthcare providers and patients. https://www.fda.gov/media/891376/download, https://www.fda.gov/media/014604/download 11 Units are mL/min/1.73 m2 Chronic Kidney Disease Staging per NKF: Stage I & II GFR >=60 Normal to Mildly Decreased Stage III GFR 30-59 Moderately Decreased Stage IV GFR 15-29 Severely Decreased Stage V GFR <15 Very Little GFR Left ESRD GFR <15 on SPA ASSISTANT MANAGER Procedures Date Code Description Status 01/23/2021 09815 Echocardiogram 2-D Doppler Color Completed 11/16/2020 98578 Office/Outpatient Established Mo d MDM 30-39 Min Completed 11/16/2020 94031 ECG 12-Lead Completed Medical Devices Description No [...] Quintana 11/16/2020 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 [place] Created [address] [facility] [address] [phone]
--- OUTSIDE RECORDS SUMMARY | 2021-05-26 16:27 | CCD | Continuity of Care Document ---
Author Organization Unknown Address Unknown Phone Unavailable Care Team Providers Care Insert Operator Name Role Phone Galilea Roblero TEREZA AUTM [phone] Tristan Fatima MD AUTM Problems Active Problems [...] 03/27/2021 Cefdin[place] Unable to assess criticality 03/27/2021 [place] Unable to assess criticality 03/27/2021 Pseudoephedrine Unable [...] mmol/L High 0.5 - 2.2 BMP 11/16/2020 [facility] nter [phone] Glucose, Fasting 246 mg/dL High 70-100 Blood [...] mg/dL Normal 8.5-10.1 Laboratory test finding 11/16/2020 [facility] [phone] NT-Pro BNP 94 pg/mL Normal <125 1 Routine intensity oral antic oagulation INR is typically 2.0-3.0. Target INR must be clinically individualized. 2 Hemolyzed 3 Routine intensity oral antic oagulation INR is typically 2.0-3.0. Target INR must be clinically individualized. 4 (NOTE) Positive results are presumptive and unconfirmed;confirmatory testing can be ordered at the [facility] at [phone] or [facility] at [phone] within 5 days of collection. 5 Results [...] Fda websites for healthcare providers and patients. https://www.fda.gov/media/040892/download, https://www.fda.gov/media/507388/download 11 Units are mL/min/1.73 m2 Chronic Kidney Disease Staging per NKF: Stage I & II GFR >=60 Normal to Mildly Decreased Stage III GFR 30-59 Moderately Decreased Stage IV GFR 15-29 Severely Decreased Stage V GFR <15 Very Little GFR Left ESRD GFR <15 on GASOLINE ENGINE INSPECTOR Procedures Date Code Description Status 01/23/2021 97277 Echocardiogram 2-D Doppler Color Completed 11/16/2020 46844 Office/Outpatient Established Mo d MDM 30-39 Min Completed 11/16/2020 76743 ECG 12-Lead Completed Medical Devices Description No [...] 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 [place] Created [address] [facility] [address] [phone]
--- OUTSIDE RECORDS SUMMARY | 2021-05-26 16:27 | CCD | Continuity of Care Document ---
Author Organization Unknown Address Unknown Phone Unavailable Care Team Providers Care Bite Block Maker Name Role Phone Galilea Roblero TEREZA AUTM [phone] Tristan Fatima MD AUTM Problems Active Problems [...] 03/27/2021 Cefdinir Unable to assess criticality 03/27/2021 [place] Unable to assess criticality 03/27/2021 Pseudoephedrine Unable [...] mmol/L High 0.5 - 2.2 BMP 11/16/2020 [facility] nter [phone] Glucose, Fasting 246 mg/dL High 70-100 Blood [...] 8.5-10.1 Laboratory test finding 11/16/2020 [facility] [phone] NT-Pro BNP 94 pg/mL Normal <125 1 Routine intensity oral antic oagulation INR is typically 2.0-3.0. Target INR must be clinically individualized. 2 Hemolyzed 3 Routine intensity oral antic oagulation INR is typically 2.0-3.0. Target INR must be clinically individualized. 4 (NOTE) Positive results are presumptive and unconfirmed;confirmatory testing can be ordered at the [facility] at [phone] or [facility] at [phone] within 5 days of collection. 5 Results [...] Fda websites for healthcare providers and patients. https://www.fda.gov/media/248417/download, https://www.fda.gov/media/293521/download 11 Units are mL/min/1.73 m2 Chronic Kidney Disease Staging per NKF: Stage I & II GFR >=60 Normal to Mildly Decreased Stage III GFR 30-59 Moderately Decreased Stage IV GFR 15-29 Severely Decreased Stage V GFR <15 Very Little GFR Left ESRD GFR <15 on CELL ATTENDANT HELPER Procedures Date Code Description Status 01/23/2021 95312 Echocardiogram 2-D Doppler Color Completed 11/16/2020 71937 Office/Outpatient Established Mo d MDM 30-39 Min Completed 11/16/2020 30348 ECG 12-Lead Completed Medical Devices Description No [...] Quintana 11/16/2020 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 [place] Created [address] [facility] [address] [phone]
--- OUTSIDE RECORDS SUMMARY | 2021-05-26 16:28 | CCD | Continuity of Care Document ---
Author Organization Unknown Address Unknown Phone Unavailable Care Team Providers Care Bead Builder Name Role Phone Galilea Roblero TEREZA AUTM [phone] Tristan Fatima MD AUTM [phone] Problems Active Problems Provider Date Essential hypertension [...] 03/27/2021 Cefdinir Unable to assess criticality 03/27/2021 [place] Unable to assess criticality 03/27/2021 Pseudoephedrine [...] BMP 11/16/2020 [facility] nter [phone] Glucose, Fasting 246 mg/dL High 70-100 Blood [...] mg/dL Normal 8.5-10.1 Laboratory test finding 11/16/2020 [facility] [phone] NT-Pro BNP 94 pg/mL Normal <125 1 Routine intensity oral antic oagulation INR is typically 2.0-3.0. Target INR must be clinically individualized. 2 Hemolyzed 3 Routine intensity oral antic oagulation INR is typically 2.0-3.0. Target INR must be clinically individualized. 4 (NOTE) Positive results are presumptive and unconfirmed;confirmatory testing can be ordered at the [facility] at [phone] or [facility] at [phone] within 5 days of collection. 5 Results [...] Fda websites for healthcare providers and patients. https://www.fda.gov/media/668101/download, https://www.fda.gov/media/263834/download 11 Units are mL/min/1.73 m2 Chronic Kidney Disease Staging per NKF: Stage I & II GFR >=60 Normal to Mildly Decreased Stage III GFR 30-59 Moderately Decreased Stage IV GFR 15-29 Severely Decreased Stage V GFR <15 Very Little GFR Left ESRD GFR <15 on CERTIFIED BREASTFEEDING EDUCATOR Procedures Date Code Description Status 01/23/2021 82172 Echocardiogram 2-D Doppler Color Completed 11/16/2020 08365 Office/Outpatient Established Mo d MDM 30-39 Min Completed 11/16/2020 07793 ECG 12-Lead Completed Medical Devices Description No [...] Quintana 11/16/2020 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 [place] Created [address] [facility] [address] [phone]
--- OUTSIDE RECORDS SUMMARY | 2021-05-26 16:28 | CCD | Continuity of Care Document ---
Author Organization Unknown Address Unknown Phone Unavailable Care Team Providers Care Utility Driver Name Role Phone Galilea Roblero TEREZA AUTM [phone] Tristan Fatima MD AUTM Problems Active Problems [...] 03/27/2021 Cefdinir Unable to assess criticality 03/27/2021 [place] Unable to assess criticality 03/27/2021 Pseudoephedrine Unable [...] mmol/L High 0.5 - 2.2 BMP 11/16/2020 [facility] nter [phone] Glucose, Fasting 246 mg/dL High 70-100 Blood [...] test finding 11/16/2020 [facility] [phone] NT-Pro BNP 94 pg/mL Normal <125 1 Routine intensity oral antic oagulation INR is typically 2.0-3.0. Target INR must be clinically individualized. 2 Hemolyzed 3 Routine intensity oral antic oagulation INR is typically 2.0-3.0. Target INR must be clinically individualized. 4 (NOTE) Positive results are presumptive and unconfirmed;confirmatory testing can be ordered at the [facility] at [phone] or [facility] at [phone] within 5 days of collection. 5 Results [...] Fda websites for healthcare providers and patients. https://www.fda.gov/media/227074/download, https://www.fda.gov/media/096182/download 11 Units are mL/min/1.73 m2 Chronic Kidney Disease Staging per NKF: Stage I & II GFR >=60 Normal to Mildly Decreased Stage III GFR 30-59 Moderately Decreased Stage IV GFR 15-29 Severely Decreased Stage V GFR <15 Very Little GFR Left ESRD GFR <15 on MARKETING PR INTERN Procedures Date Code Description Status 01/23/2021 10576 Echocardiogram 2-D Doppler Color Completed 11/16/2020 86942 Office/Outpatient Established Mo d MDM 30-39 Min Completed 11/16/2020 85252 ECG 12-Lead Completed Medical Devices Description No [...] Quintana 11/16/2020 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 [place] Created [address] [facility] [address] [phone]
--- OUTSIDE RECORDS SUMMARY | 2021-05-26 16:28 | CCD | Continuity of Care Document ---
Author Organization Unknown Address Unknown Phone Unavailable Care Team Providers Care Student Affairs Vice President Name Role Phone Galilea Roblero TEREZA AUTM [phone] Tristan Fatima MD AUTM [phone] Problems Active Problems Provider Date Essential hypertension [...] Onset: 03/13/2018 Disturbance in sleep behavior Eren Guiterrez MD Onset: 01/2018 Electrocardiogram abnormal Eren Gutierrez [...] 03/27/2021 Cefdinir Unable to assess criticality 03/27/2021 [place] Unable to assess criticality 03/27/2021 Pseudoephedrine Unable [...] mmol/L High 0.5 - 2.2 BMP 11/16/2020 [facility] nter [phone] Glucose, Fasting 246 mg/dL High 70-100 Blood [...] mg/dL Normal 8.5-10.1 Laboratory test finding 11/16/2020 [facility] [phone] NT-Pro BNP 94 pg/mL Normal <125 1 Routine intensity oral antic oagulation INR is typically 2.0-3.0. Target INR must be clinically individualized. 2 Hemolyzed 3 Routine intensity oral antic oagulation INR is typically 2.0-3.0. Target INR must be clinically individualized. 4 (NOTE) Positive results are presumptive and unconfirmed;confirmatory testing can be ordered at the [facility] at [phone] or [facility] at [phone] within 5 days of collection. 5 Results [...] Fda websites for healthcare providers and patients. https://www.fda.gov/media/797966/download, https://www.fda.gov/media/467740/download 11 Units are mL/min/1.73 m2 Chronic Kidney Disease Staging per NKF: Stage I & II GFR >=60 Normal to Mildly Decreased Stage III GFR 30-59 Moderately Decreased Stage IV GFR 15-29 Severely Decreased Stage V GFR <15 Very Little GFR Left ESRD GFR <15 on [employer] Procedures Date Code Description Status 01/23/2021 86031 Echocardiogram 2-D Doppler Color Completed 11/16/2020 93443 Office/Outpatient Established Mo d MDM 30-39 Min Completed 11/16/2020 15540 ECG 12-Lead Completed Medical Devices Description No [...] MD ECHO AUTH EMR-EXPIRES 04/15/21. [place] Created [address] [facility] [address] [phone]
--- OUTSIDE RECORDS SUMMARY | 2021-05-26 16:30 | CCD ---
Author Author [facility] Organization [facility] Address Unknown Phone Unavailable Care Team Providers Care Tailings Worker Name Role Phone Chase, L Antonella HOME ENERGY CONSULTANT SUPERVISOR Unavailable Unavailable Chase, L Antonella HOME ENERGY CONSULTANT SUPERVISOR Unavailable Unavailable Chase, L Antonella HOME ENERGY CONSULTANT SUPERVISOR Unavailable Unavailable Chase, L Antonella HOME ENERGY CONSULTANT SUPERVISOR Unavailable Unavailable Chase, L Antonella HOME ENERGY CONSULTANT SUPERVISOR Unavailable Unavailable Chase, L Antonella HOME ENERGY CONSULTANT SUPERVISOR Unavailable Unavailable Chase, L Antonella HOME ENERGY CONSULTANT SUPERVISOR Unavailable Unavailable Chase, L Antonella HOME ENERGY CONSULTANT SUPERVISOR Unavailable Unavailable Chase, L Antonella HOME ENERGY CONSULTANT SUPERVISOR Unavailable Unavailable Chase, L Antonella HOME ENERGY CONSULTANT SUPERVISOR Unavailable Unavailable Chase, L Antonella HOME ENERGY CONSULTANT SUPERVISOR Unavailable Unavailable Chase, L Antonella HOME ENERGY CONSULTANT SUPERVISOR Unavailable Unavailable Chase, L Antonella HOME ENERGY CONSULTANT SUPERVISOR Unavailable Unavailable Chase, L Antonella HOME ENERGY CONSULTANT SUPERVISOR Unavailable Unavailable Chase, L Antonella HOME ENERGY CONSULTANT SUPERVISOR Unavailable Unavailable Chase, L Antonella HOME ENERGY CONSULTANT SUPERVISOR Unavailable Unavailable Chase, L Antonella HOME ENERGY CONSULTANT SUPERVISOR Unavailable Unavailable Chase, L Antonella HOME ENERGY CONSULTANT SUPERVISOR Unavailable Unavailable Chase, L Antonella HOME ENERGY CONSULTANT SUPERVISOR Unavailable Unavailable Chase, L Antonella HOME ENERGY CONSULTANT SUPERVISOR Unavailable Unavailable Chase, L Antonella HOME ENERGY CONSULTANT SUPERVISOR Unavailable Unavailable Chase, L Antonella HOME ENERGY CONSULTANT SUPERVISOR Unavailable Unavailable Chase, L Antonella HOME ENERGY CONSULTANT SUPERVISOR Unavailable Unavailable Chase, L Antonella HOME ENERGY CONSULTANT SUPERVISOR Unavailable Unavailable Chase, L Antonella HOME ENERGY CONSULTANT SUPERVISOR Unavailable Unavailable Spenser, L Jessie PA Unavailable Unavailable Spenser, L Jessie PA Unavailable Unavailable Spenser, L Jessie PA Unavailable Unavailable Spenser, L Jessie PA Unavailable Unavailable Spenser, L Jessie PA Unavailable Unavailable Spenser, L Jessie PA Unavailable Unavailable Spenser, L Jessie PA Unavailable Unavailable Spenser, L Jessie PA Unavailable Unavailable Spenser, L Jessei PA Unavailable Unavailable Spenser, L Jessie PA [...] L Jessie PA Unavailable Unavailable MAUREEN, RACHEL WRIHGT Unavailable Unavailable REINDL, RACHEL WRIGHT [...] Unavailable Unavailable Agustin Padilla MD Unavailable Unavailable Bere Rodriguez MD Unavailable Unavailable Bere Rodriguez MD Unavailable Unavailable Bere Rodriguez MD Unavailable Unavailable Bere Rodriguez MD Unavailable Unavailable Bere Rodriguez MD Unavailable Unavailable Bere Rodriguez MD Unavailable Unavailable Bere Rodriguez MD Unavailable Unavailable Bere Rodriguez MD Unavailable Unavailable Bere Rodriguez MD Unavailable Unavailable Bere Rodriguez MD Unavailable Unavailable Bere Rodriguez MD Unavailable Unavailable Bere Rodriguez MD Unavailable Unavailable Bere Rodriguez MD Unavailable Unavailable Bere Rodriguez MD Unavailable Unavailable Bere Rodriguez MD Unavailable Unavailable Bere Rodriguez MD Unavailable Unavailable Bere Rodriguez MD Unavailable Unavailable Bere Rodriguez MD Unavailable Unavailable Bere Rodriguez MD Unavailable Unavailable Bere Rodriguez MD Unavailable Unavailable Bere Rodriguez MD Unavailable Unavailable Bere Rodriguez MD Unavailable Unavailable Bere Rodriguez MD Unavailable Unavailable Bere Rodriguez MD Unavailable Unavailable Bere Rodriguez MD Unavailable Unavailable Bere Rodriguez MD Unavailable Unavailable Bere Rodriguez MD Unavailable Unavailable Bere Rodriguez MD Unavailable Unavailable Bere Rodriguez MD Unavailable Unavailable Bere Rodriguez MD Unavailable Unavailable Bere Rodriguez MD Unavailable Unavailable Bere Rodriguez MD Unavailable Unavailable Bere Rodriguez MD Unavailable Unavailable Bere Rodriguez MD Unavailable Unavailable Bere Rodriguez MD Unavailable Unavailable Bere Rodriguez MD Unavailable Unavailable Bere Rodriguez MD Unavailable Unavailable Bere Rodriguez MD Unavailable Unavailable Bere Rodriguez MD Unavailable Unavailable Bere Rodriguez MD Unavailable Unavailable Bere Rodriguez MD Unavailable Unavailable Bere Rodriguez MD Unavailable Unavailable Bere Rodriguez MD Unavailable Unavailable Bere Rodriguez MD Unavailable Unavailable Bere Rodriguez MD Unavailable Unavailable Evan Gonzalez Unavailable Unavailable Lisa, Ruban Unavailable Unavailable Lisa, [...] Unavailable ARPIT, L TERESA PA Unavailable Unavailable Balibna'Juliana Torres MD Unavailable Unavailable Balbina'Juliana Torres MD Unavailable Unavailable O'Melissa, S Tony MD Unavailable Unavailable Juliana Anthony MD Unavailable Unavailable Juliana Anthony MD Unavailable Unavailable Juliana Anthony MD Unavailable Unavailable Juliana Anthony MD Unavailable Unavailable Juliana Anthony MD Unavailable Unavailable Juliana Anthony MD Unavailable Unavailable Juliana Anthony MD Unavailable Unavailable Juliana Anthony MD Unavailable Unavailable Juliana Anthony MD Unavailable Unavailable Juliana Anthony MD Unavailable Unavailable Juliana Anthony MD Unavailable Unavailable Juliana Anthony MD Unavailable Unavailable Juliana Anthony MD Unavailable Unavailable Juliana Anthony MD Unavailable Unavailable Juliana Anthony MD Unavailable Unavailable Juliana Anthony MD Unavailable Unavailable Juliana Anthony MD Unavailable Unavailable Juliana Anthony MD Unavailable Unavailable Juliana Anthony MD Unavailable Unavailable Juliana Anthony MD Unavailable Unavailable Juliana Anthony MD Unavailable Unavailable Juliana Anthony MD Unavailable Unavailable Juliana Anthony MD Unavailable Unavailable Juliana Anthony MD Unavailable Unavailable Juliana Anthony MD Unavailable Unavailable Juliana Anthony MD Unavailable Unavailable Juliana Anthony MD Unavailable Unavailable Juliana Anthony MD Unavailable Unavailable Juliana Anthony MD Unavailable Unavailable Juliana Anthony MD Unavailable Unavailable Juliana Anthony MD Unavailable Unavailable Juliana Anthony MD Unavailable Unavailable Juliana Anthony MD Unavailable Unavailable Juliana Anthony MD Unavailable Unavailable Juliana Anthony MD Unavailable Unavailable Juliana Anthony MD Unavailable Unavailable Juliana Anthony MD Unavailable Unavailable Juliana Anthony MD Unavailable Unavailable Juliana Anthony MD Unavailable Unavailable Juliana Anthony MD Unavailable Unavailable Juliana Anthony MD Unavailable Unavailable Juliana Anthony MD Unavailable Unavailable Juliana Anthony MD Unavailable Unavailable Juliana Anthony MD Unavailable Unavailable Juliana Anthony MD Unavailable Unavailable Juliana Anthony MD Unavailable Unavailable Juliana Anthony MD Unavailable Unavailable Juliana Anthony MD Unavailable Unavailable Juliana Anthony MD Unavailable Unavailable Juliana Anthony MD Unavailable Unavailable Juliana Anthony MD Unavailable Unavailable GENA, SATYA PA Unavailable Unavailable [...] Unavailable Unavailable GENA, SATYA PA Unavailable Unavailable GNEA, SATYA PA Unavailable Unavailable GENA, SATYA PA Unavailable Unavailable GENA, SATYA PA Unavailable Unavailable GENA, SATYA PA Unavailable Unavailable GENA, SATYA PA Unavailable Unavailable GENA, SATYA PA Unavailable Unavailable PEREZJeannette Machado MD Unavailable Unavailable PEREZJeannette Machado MD Unavailable Unavailable PEREZJeannette Machado MD Unavailable Unavailable PEREZJeannette Machado MD Unavailable Unavailable PEREZJeannette Machado MD Unavailable Unavailable PEREZJeannette Machado MD Unavailable Unavailable PEREZJeannette Machado MD Unavailable Unavailable PEREZJeannette Machado MD Unavailable Unavailable PEREZJeannette Machado MD Unavailable Unavailable PEREZJeannette Machado MD Unavailable Unavailable PEREZJeannette Machado MD Unavailable Unavailable PEREZJeannette Machado MD Unavailable Unavailable PEREZJeannette Machado MD Unavailable Unavailable PEREZ, D LLOYD MD Unavailable Unavailable PEREZ, D LLOYD MD Unavailable Unavailable PEREZ, D LLOYD MD Unavailable Unavailable PEREZ, D LLOYD MD Unavailable Unavailable PEREZ, D LLOYD MD Unavailable Unavailable PEREZ, D LLOYD MD Unavailable Unavailable PEREZ, D LLOYD MD Unavailable Unavailable PEREZ, D LLOYD MD Unavailable Unavailable PEREZ, D LLOYD MD Unavailable Unavailable PEREZ, D LLOYD MD Unavailable Unavailable PEREZ, D LLOYD MD Unavailable Unavailable PEREZ, D LLOYD MD Unavailable Unavailable PEREZ, D LLOYD MD Unavailable Unavailable PERZE, D LLOYD MD Unavailable Unavailable PEREZ, D LLOYD MD Unavailable Unavailable PEREZ, D LLOYD MD Unavailable Unavailable PEREZ, D LLOYD MD Unavailable Unavailable PEREZ, D LLOYD MD Unavailable Unavailable PEREZ, D LLOYD MD Unavailable Unavailable PEREZ, D LLOYD MD Unavailable Unavailable PEREZ, D LLOYD MD Unavailable Unavailable PEREZ, D LLOYD MD Unavailable Unavailable PEREZ, D LLOYD MD Unavailable Unavailable PEREZ, D LLOYD MD Unavailable Unavailable PEREZ, D LLOYD MD Unavailable Unavailable PEREZ, D LLOYD MD Unavailable Unavailable PEREZ, D LLOYD MD Unavailable Unavailable PEREZ, D LLOYD MD Unavailable Unavailable PEREZ, D LLOYD MD Unavailable Unavailable PEREZ, D LLOYD MD Unavailable Unavailable PEREZ, D LLOYD MD Unavailable Unavailable PEREZ, D LLOYD MD Unavailable Unavailable PEREZ, D LLOYD MD Unavailable Unavailable PEREZ, D LLOYD MD Unavailable Unavailable PEREZ, D LLOYD MD Unavailable Unavailable PEREZ, D LLOYD MD Unavailable Unavailable PEREZ, D LLOYD MD Unavailable Unavailable PEREZ, D LLOYD MD Unavailable Unavailable PEREZ, D LLOYD MD Unavailable Unavailable PEREZ, D LLOYD MD Unavailable Unavailable PEREZ, D LLOYD MD Unavailable Unavailable PEREZ, D LLOYD MD Unavailable Unavailable PEREZ, D LLOYD MD Unavailable Unavailable PEREZ, D LLOYD MD Unavailable Unavailable PEREZ, D LLOYD MD Unavailable Unavailable PEREZ, D LLOYD MD Unavailable Unavailable PEREZ, D LLOYD MD Unavailable Unavailable PEREZ, D LLOYD MD Unavailable Unavailable ZENON, MADHAB Unavailable Unavailable Zenon, Madhab Unavailable Re-disclosure Warning The records that you [...] is protected by Article 27-F of the [facility] Public Health law. If you continue you may have access to information: Regarding HIV / AIDS; Provided by facilities licensed or operated by the [facility] Office of Mental Health; or Provided by the [facility] Office for People With Developmental Disabilities. If such information is present, then the following [facility] mandated warning applies: This information has [...] law may result in a fine or skilled nursing sentence or both. A general authorization for the release of medical or other information is NOT sufficient authorization for further disc losure. Allergies and Adverse Reactions Type Description Substance Reaction Status Data Source(s ) Propensity to adverse reactions SULFA ANTIBIOTICS SULFA ANTIBIOT ICS Itching [facility] Family History Family Member Name Family Member Gender Family Member Status Date o f Status Description Data Source(s) Unknown Male Problem [facility] ([facility] Unknown Unknown Problem [facility] ([facility] Unknown Unknown Problem [facility] ([facility] Unknown Unknown Problem [facility] ([facility] Unknown Female Problem MEDENT ([facility]) Unknown Female Problem MEDENT ([facility]) Encounters Encounter Providers Location Date Indications Data Source(s ) Outpatient Attender: Evan Gonzalez 11/12/2021 12:00:00 AM [facility] Outpatient Attender: Evan Gonzalez 10/29/2021 12:00:00 AM [facility] Outpatient Attender: SATYA ANDERSON 06/04/2021 12:00:0 0 AM EST [facility] [place] [address] [address] 04/30/2021 12:00:00 AM EDT eCW1 ([facility]) [place] [address] [address] 04/24/2021 12:00:00 AM EDT eCW1 ([facility]) Outpatient Attender: Chris Blue ttender: CHRIS Robertoferrer: CHRIS YARBROUGH 04/23/2021 12:00:00 AM EDT [facility] Outpatient Attender: Chris Blue ttender: CHRIS Robertoferrer: CHRIS YARBROUGH 04/23/2021 12:00:00 AM EDT [facility] Inpatient Attender: Stephanie Huerta nder: LLOYD PEREZ MDAttender: Chris Bluettender: CHRIS BLUEttender: Tony Anthony MDAdmitter: CHRIS Robertoferrer: CHRIS YARBROUGH [id number] 04/19/2021 12:00 :00 AM EDT - 04/23/2021 12:00:00 AM [facility] Patient discharged. [place] [address] [address] 03/06/2021 12:00:00 AM EDT eCW1 ([facility]) Outpatient Attender: SATYA ANDERSON 03/02/2021 12:00:0 0 AM [facility] Outpatient Attender: Evan Gonzalez 03/01/2021 12:00:00 AM [facility] [place]patient [address] [address] 02/14/2021 12:00:00 AM EDT eCW1 ([facility]) [place] [address] [address] 02/14/2021 12:00:00 AM EDT eCW1 ([facility]) [place] [address] [address] 02/02/2021 12:00:00 AM EDT eCW1 ([facility]) Outpatient Attender: Antonella Madera/Clarisa/Yasmany/Reindl 01/23/2021 02:30:00 PM EDT [facility] ([facility]) [place] [address] [address] 01/01/2021 12:00:00 AM EDT eCW1 ([facility]) Outpatient Attender: RACHEL Madera/Clarisa/Yasmany/Rein dl 11/29/2020 01:00:00 PM EDT [facility] ([facility]) [place] [address] [address] 11/24/2020 12:00:00 AM EDT eCW1 ([facility]) Outpatient Attender: TERESA ANDERSON Main Office 11/16/2020 0 2:00:00 PM EDT MEDENT ([facility]) Outpatient Attender: SATYA ANDERSON [id number] 11/01/2020 1 2:00:00 AM EDT [facility] (current) use of insulin [facility] (current) use of insulin [place] [address] [address] 10/05/2020 12:00:00 AM EDT eCW1 ([facility]) Outpatient Attender: TERESA ANDERSON Main Office 10/02/2020 1 2:45:00 PM EDT MED[facility] ([facility]) Outpatient Attender: Marilyn Padilla MD Physical Therapy 02:45:00 PM EDT MED[facility] ([facility]) [place] [address] [address] 09/20/2020 12:00:00 AM EDT eCW1 ([facility]) Outpatient Attender: RACHEL Madera/Clarisa/Yasmany/Rein dl 09/06/2020 01:30:00 PM EST MEDENT ([facility]) Outpatient Attender: SATYA ANDERSON [id number] 12:00:00 AM EST - 09/01/2020 03:34:09 PM EST [facility] (current) use of insulin [facility] (current) use of insulin [place] [address] [address] 08/29/2020 12:00:00 AM EST [facility]CW1 [facility] [place] [address] [address] 08/29/2020 12:00:00 AM EST eCW1 ([facility]) [place] [address] [address] 08/23/2020 12:00:00 AM EST [facility]CW1 [facility]) Outpatient Attender: Evan Gonzalez 08/03/2020 12:00:00 AM EST [facility] [address] [address] 07/31/2020 12:00:00 AM EST eCW1 ([facility]) Unknown [address] [address] 07/31/2020 12:00:00 AM EST eCW1 ([facility]) [place] [address] [address] 07/28/2020 12:00:00 AM EST eCW1 ([facility]) [place] [address] [address] 07/27/2020 12:00:00 AM EST [facility]CW1 [facility] [place] [address] [address] 07/24/2020 12:00:00 AM EST eCW1 ([facility]) [place] [address] [address] 07/21/2020 12:00:00 AM EST [facility]CW1 [facility] [place] [address] [address] 07/20/2020 12:00:00 AM EST eCW1 ([facility]) [place] [address] [address] 07/20/2020 12:00:00 AM EST eCW1 ([facility]) [place] [address] [address] 07/20/2020 12:00:00 AM EST eCW1 ([facility]) [place] [address] [address] 07/13/2020 12:00:00 AM EST eCW1 ([facility]) [place] [address] [address] 07/13/2020 12:00:00 AM EST eCW1 ([facility]) [place] [address] [address] 07/11/2020 12:00:00 AM EST eCW1 ([facility]) [place] [address] [address] 07/11/2020 12:00:00 AM EST eCW1 ([facility]) [place] [address] [address] 07/10/2020 12:00:00 AM EST eCW1 ([facility]) [place] [address] [address] 07/05/2020 12:00:00 AM EST eCW1 ([facility]) [place] [address] [address] 07/04/2020 12:00:00 AM EST eCW1 ([facility]) [place]patient [address] [address] 06/15/2020 12:00:00 AM EST eCW1 ([facility]) [place] [address] [address] 06/09/2020 12:00:00 AM EST eCW1 ([facility]) [place] [address] [address] 06/08/2020 12:00:00 AM EST eCW1 ([facility]) Unknown [address] [address] 05/26/2020 12:00:00 AM EST eCW1 ([facility]) [place]patient [address] [address] 05/24/2020 12:00:00 AM EST eCW1 ([facility]) Outpatient Attender: Jessie ANDERSON Main Office 05/12/2020 07:15:0 0 AM EST MED[facility] ([facility]) Outpatient Attender: SATYA ANDERSON [id number] 12:00:00 AM EDT - 04/20/2020 12:42:09 PM EDT Type 2 diabetes mellitus with hyperglycemia [facility] Type 2 diabetes mellitus with hyperglyce starla Outpatient Attender: Antonella Madera/Clarisa/Yasmany/Maureen 03/30/2020 10:00:00 AM EDT [facility] ([facility] Immunizations Vaccine Date Status Description Data Source(s) pneumococcal polysaccharide PPV23 03/06/2021 12:06:00 PM EDT [facility] pneumococcal polysaccharide PPV23 03/06/2021 12:06:00 PM EDT comple allan [facility]CW[facility]) pneumococcal polysaccharide PPV23 03/06/2021 12:06:00 PM EDT comple allan eCW1 [facility]) Tdap 03/06/2021 12:05:00 PM EDT completed e CW[facility]) Tdap 03/06/2021 12:05:00 PM EDT completed e CW1 [facility]) Tdap 03/06/2021 12:05:00 PM EDT completed e CW1 [facility]) Medications Medication Brand Name Start Date Product Form Dose Route Admi nistrative Instructions Pharmacy Instructions Status Indications Reaction Description Data Source(s) tramadol hydrochloride 50 MG Oral Tablet traMADol HCl 50 MG traMADol HCl 50 MG 02/14/2021 12:00:00 AM EDT 1.0 {tablet_as_needed} active traMADol HCl 50 MG [facility] tramadol hydrochloride 50 MG Oral Tablet traMADol HCl 50 MG traMADol HCl 50 MG 02/14/2021 12:00:00 AM EDT 1.0 {tablet_as_needed} active traMADol HCl 50 MG [facility]CW1 [facility]) Levofloxacin 500 MG Oral Tablet Levaquin 500 MG Levaquin 500 MG 02/14/2021 12:00:00 AM EDT 1.0 {tablet} active Le vaquin 500 MG [facility]CW1 [facility]) Levofloxacin 500 MG Oral Tablet Levaquin 500 MG Levaquin 500 MG 02/14/2021 12:00:00 AM EDT 1.0 {tablet} suspended Levaquin 500 MG eCW1 [facility]) Levofloxacin 500 MG Oral Tablet Levaquin 500 MG Levaquin 500 MG 02/14/2021 12:00:00 AM EDT 1.0 {tablet} suspended Levaquin 500 MG eCW1 [facility]) Levofloxacin 500 MG Oral Tablet Levaquin 500 MG Levaquin 500 MG 02/14/2021 12:00:00 AM EDT 1.0 {tablet} active Le vaquin 500 MG [facility]CW1 [facility]) tramadol hydrochloride 50 MG Oral Tablet traMADol HCl 50 MG traMADol HCl 50 MG 02/14/2021 12:00:00 AM EDT 1.0 {tablet_as_needed} active traMADol HCl 50 MG [facility]CW1 [facility]) tramadol hydrochloride 50 MG Oral Tablet traMADol HCl 50 MG traMADol HCl 50 MG 02/14/2021 12:00:00 AM EDT 1.0 {tablet_as_needed} active traMADol HCl 50 MG eCW1 [facility]) Levofloxacin 500 MG Oral Tablet Levaquin 500 MG Levaquin 500 MG 02/14/2021 12:00:00 AM EDT 1.0 {tablet} suspended Levaquin 500 MG eCW1 [facility]) tramadol hydrochloride 50 MG Oral Tablet traMADol HCl 50 MG traMADol HCl 50 MG 02/14/2021 12:00:00 AM EDT 1.0 {tablet_as_needed} active traMADol HCl 50 MG [facility]CW1 [facility]) 24 HR Diltiazem Hydrochloride 120 MG Extended Release Oral Capsule [Dilt] Dilt-XR 11/16/2020 12:00:00 AM EDT ORAL active MEDENT ([facility]) SharanStyle Shabbir 2 Sensor 29950-634-68 11/01/2020 12:00:00 AM EDT 1 {each} Does not apply active 1 each by Does not apply route every 14 (fourteen) days Use as directed. Dx:E11.65 [facility] 100 unit/mL 10/27/2020 12:00:00 AM EDT insulin [...] (Admelog SoloStar) 10/26/2020 12:00:00 AM EDT act aretmio Type 2 diabetes mellitus with hyperglycemia, with long-term current use of insulin I nject as per sliding scale. MDD- 100 units with priming and titration.Dx: E11.65 [facility] Type 2 diabetes mellitus with hyperglyce starla, with long-term current use of insulin Chlorthalidone 25 MG Oral Tablet Chlorthalidone 25 MG Oral Tablet (HYGROTON) Chlorthalidone 25 MG Oral Tablet (HYGROTON) 10/25/2020 12:00:00 AM EDT active [facility] Cholecalciferol 1999 UNT Oral Capsule Vitamin D3 50 MC G (1999) Oral Capsule Vitamin D3 50 MCG (1999) Oral Capsule 10/17/2020 12:00:00 AM EDT active TAKE TWO CAPSULES BY MOUTH EVERY DAY [facility] 120 ACTUAT Albuterol 0.1 MG/ACTUAT / Ipr atropium [place] 0.02 MG/ACTUAT Metered Dose Inhaler [Combivent] Combivent Respimat 20-100 MCG/ACT Inhalation Aerosol Solution Combivent Respimat 20-100 MCG/ACT Inhalation Aerosol S olution 10/02/2020 12:00:00 AM EDT active INHALE ONE PUFF BY MOUTH THREE TIMES A DAY [facility] doxycycline hyclate 100 MG Oral Capsule Doxycycline Hyclate 10/01/2020 12:00:00 AM EDT ORAL completed MEDENT ([facility]) 3 ML Insulin Lispro 25 UNT/ML / Insulin, Protamine Lispro, Human 75 UNT/ML Pen Injector [Humalog Mix] Humalog Mix 75/25 Kwikpen 10/01/2020 12:00:00 AM EDT active [facility] ([facility]) Basaglar Kwikpen Basaglar Kwikpen 10/01/2020 12:00:00 AM EDT active [facility] ([facility]) Trulicity Trulicity 10/01/2020 12:00:00 AM EDT act artemio MEDENT ([facility]) Levothyroxine Sodium 0.125 MG Oral Table t Levothyroxine Sodium 125 MCG Oral Tablet (SYNTHROID) Levothyroxine Sodium 125 MCG Oral Tablet (SYNTHROID) 2020 12:00:00 AM EDT active Other specified hypothyroidism TAKE ONE TABLET BY MOUTH EVERY DAY [facility] Other specified hypothyroidism BD Pen Needle Original U/F 29G X 12.7MM (Insulin Pen Needle) [id number] 2020 12:00:00 AM EDT act artemio Type 2 diabetes mellitus with hyperglycemia, with long-term current use of insulin U se as directed. INJECT DIRECTED UP TO 6 TIMES PER DAY [facility] Type 2 diabetes mellitus with hyperglyce starla, with long-term current use of insulin doxycycline hyclate 100 MG Oral Capsule Doxycycline Hy clate 100 MG Doxycycline Hyclate 100 MG 09/20/2020 12:00:00 AM EDT 1.0 {capsule} active Doxycycline Hyclate 100 MG [facility] doxycycline hyclate 100 MG Oral Capsule Doxycycline Hy clate 100 MG Doxycycline Hyclate 100 MG 09/20/2020 12:00:00 AM EDT 1.0 {capsule} active Doxycycline Hyclate 100 MG [facility]CW1 [facility] doxycycline hyclate 100 MG Oral Capsule Doxycycline Hy clate 100 MG Doxycycline Hyclate 100 MG 09/20/2020 12:00:00 AM EDT 1.0 {capsule} active [facility]) doxycycline hyclate 100 MG Oral Capsule Doxycycline Hy clate 100 MG Doxycycline Hyclate 100 MG 09/20/2020 12:00:00 AM EDT 1.0 {capsule} active Doxycycline Hyclate 100 MG eCW1 [facility]) doxycycline hyclate 100 MG Oral Capsule Doxycycline Hy clate 100 MG Doxycycline Hyclate 100 MG 09/20/2020 12:00:00 AM EDT 1.0 {capsule} active Doxycycline Hyclate 100 MG eCW1 [facility]) Chlorthalidone 25 MG Oral Tablet Chlorthalidone 25 MG 2020 12:00:00 AM EST 1.0 {tablet_in_the_morning_with_food} active Chlorthalidone 25 MG eCW1 [facility]) Chlorthalidone 25 MG Oral Tablet Chlorthalidone 25 MG 2020 12:00:00 AM EST 1.0 {tablet_in_the_morning_with_food} active Chlorthalidone 25 MG eCW1 ([facility]) Chlorthalidone 25 MG Oral Tablet Chlorthalidone 25 MG 2020 12:00:00 AM EST 1.0 {tablet_in_the_morning_with_food} active Chlorthalidone 25 MG eCW1 [facility]) Chlorthalidone 25 MG Oral Tablet Chlorthalidone 25 MG 2020 12:00:00 AM EST 1.0 {tablet_in_the_morning_with_food} active Chlorthalidone 25 MG eCW1 [facility]) Chlorthalidone 25 MG Oral Tablet Chlorthalidone 25 MG 2020 12:00:00 AM EST 1.0 {tablet_in_the_morning_with_food} active Chlorthalidone 25 MG eCW1 [facility]) Chlorthalidone 25 MG Oral Tablet Chlorthalidone 25 MG 2020 12:00:00 AM EST 1.0 {tablet_in_the_morning_with_food} active Chlorthalidone 25 MG eCW1 [facility]) Chlorthalidone 25 MG Oral Tablet Chlorthalidone 25 MG 2020 12:00:00 AM EST 1.0 {tablet_in_the_morning_with_food} active Chlorthalidone 25 MG eCW1 [facility]) Chlorthalidone 25 MG Oral Tablet Chlorthalidone 25 MG 2020 12:00:00 AM EST 1.0 {tablet_in_the_morning_with_food} active Chlorthalidone 25 MG eCW1 [facility]) Chlorthalidone 25 MG Oral Tablet Chlorthalidone 25 MG 2020 12:00:00 AM EST 1.0 {tablet_in_the_morning_with_food} active Chlorthalidone 25 MG eCW1 [facility]) Chlorthalidone 25 MG Oral Tablet Chlorthalidone 25 MG 2020 12:00:00 AM EST 1.0 {tablet_in_the_morning_with_food} active [facility]CW1 [facility]) Chlorthalidone 25 MG Oral Tablet Chlorthalidone 09/14/2020 12:00:00 A M EST ORAL completed [facility] ([facility]) 25 mg 09/14/2020 12:00:00 AM EST tablet [...] Oral active Take 2.5 mg by mouth [facility] Amlodipine 2.5 MG Oral Tablet Amlodipine Besylate 09/04/2020 12:00: 00 AM EST ORAL completed [facility]) Trulicity 3 MG/0.5ML Subcutaneous Solution Pen-injecto r (Dulaglutide) 8781-5925-19 09/01/2020 12:00:00 AM EST 3 mg Subcutaneous active Inject 3 mg into the skin once a week [facility] 0.4 mg 08/10/2020 12:00:00 AM EST tablet, sublingual [address] ONE TABLET UNDER THE TONGUE EVERY 5 MINUTES FOR UP TO 3 DOSES NEEDED FOR CHEST PAIN. IF CHEST PAIN STILL PERSISTS CONTACT [address] ONE TABLET UNDER THE TONGUE EVERY 5 MINUTES FOR UP TO 3 DOSES NEEDED FOR CHEST PAIN. IF CHEST PAIN STILL PERSISTS CONTACT 911 SOLD: 08/17/2020 [facility] Dexamethasone 2 MG Oral Tablet Dexamethasone 2 MG 07/31/2020 12:00: 00 AM EST 1.0 {tablet} suspended Dexamethasone 2 M G [facility]CW[facility] Dexamethasone 2 MG Oral Tablet Dexamethasone 2 MG 07/31/2020 12:00: 00 AM EST 1.0 {tablet} suspended Dexamethasone 2 M G eCW1 ([facility]) May Have - UNK 07/31/2020 12:00:00 AM EST active May Have - eCW1 ([facility]) Dexamethasone 2 MG Oral Tablet Dexamethasone 2 MG 07/31/2020 12:00: 00 AM EST 1.0 {tablet} active Dexamethasone 2 MG eCW1 ([facility]) May Have - UNK 07/31/2020 12:00:00 AM EST active May Have - eCW1 ([facility]) May Have - UNK 07/31/2020 12:00:00 AM EST active May Have - eCW1 ([facility]) May Have - UNK 07/31/2020 12:00:00 AM EST active May Have - eCW1 ([facility]) May Have - UNK 07/31/2020 12:00:00 AM EST active May Have - eCW1 ([facility]) Dexamethasone 2 MG Oral Tablet Dexamethasone 2 MG 07/31/2020 12:00: 00 AM EST 1.0 {tablet} suspended Dexamethasone 2 M G eCW1 ([facility]) Dexamethasone 2 MG Oral Tablet Dexamethasone 2 MG 07/31/2020 12:00: 00 AM EST 1.0 {tablet} suspended Dexamethasone 2 M G eCW1 ([facility]) Dexamethasone 2 MG Oral Tablet Dexamethasone 2 MG 07/31/2020 12:00: 00 AM EST 1.0 {tablet} suspended Dexamethasone 2 M G eCW1 [facility]) May Have - UNK 07/31/2020 12:00:00 AM EST active May Have - eCW1 ([facility]) May Have - UNK 07/31/2020 12:00:00 AM EST active May Have - eCW1 ([facility]) Dexamethasone 2 MG Oral Tablet Dexamethasone 2 MG 07/31/2020 12:00: 00 AM EST 1.0 {tablet} suspended Dexamethasone 2 M G eCW1 ([facility]) May Have - UNK 07/31/2020 12:00:00 AM EST active May Have - eCW1 ([facility]) May Have - UNK 07/31/2020 12:00:00 AM EST active May Have - eCW1 ([facility]) Dexamethasone 2 MG Oral Tablet Dexamethasone 2 MG 07/31/2020 12:00: 00 AM EST 1.0 {tablet} active Dexamethasone 2 MG eCW1 ([facility]) May Have - UNK 07/31/2020 12:00:00 AM EST active May Have - eCW1 ([facility]) Dexamethasone 2 MG Oral Tablet Dexamethasone 2 MG 07/31/2020 12:00: 00 AM EST 1.0 {tablet} suspended Dexamethasone 2 M G eCW1 ([facility]) Dexamethasone 2 MG Oral Tablet Dexamethasone 2 MG 07/31/2020 12:00: 00 AM EST 1.0 {tablet} suspended Dexamethasone 2 M G eCW1 ([facility]) May Have - UNK 07/31/2020 12:00:00 AM EST active May Have - eCW1 ([facility]) Dexamethasone 2 MG Oral Tablet Dexamethasone 2 MG 07/31/2020 12:00: 00 AM EST 1.0 {tablet} active Dexamethasone 2 MG eCW1 ([facility]) May Have - UNK 07/31/2020 12:00:00 AM EST active May Have - eCW1 ([facility]) Dexamethasone 2 MG Oral Tablet Dexamethasone 2 MG 07/31/2020 12:00: 00 AM EST 1.0 {tablet} suspended Dexamethasone 2 M G eCW1 ([facility]) May Have - UNK 07/31/2020 12:00:00 AM EST active May Have - eCW1 ([facility]) Dexamethasone 2 MG Oral Tablet Dexamethasone 2 MG 07/31/2020 12:00: 00 AM EST 1.0 {tablet} suspended Dexamethasone 2 M G eCW1 ([facility]) May Have - UNK 07/31/2020 12:00:00 AM EST active May Have - eCW1 ([facility]) May Have - UNK 07/31/2020 12:00:00 AM EST active May Have - eCW1 ([facility]) Dexamethasone 2 MG Oral Tablet Dexamethasone 2 MG 07/31/2020 12:00: 00 AM EST 1.0 {tablet} suspended eCW[facility] Dexamethasone 2 MG Oral Tablet Dexamethasone 2 MG 07/31/2020 12:00: 00 AM EST 1.0 {tablet} suspended Dexamethasone 2 M G eCW1 ([facility]) May Have - UNK 07/31/2020 12:00:00 AM EST active eCW1 ([facility]) Dexamethasone 2 MG Oral Tablet Dexamethasone 2 MG 07/31/2020 12:00: 00 AM EST 1.0 {tablet} suspended Dexamethasone 2 M G eCW1 [facility]) 50 mg 07/19/2020 12:00:00 AM EST [...] ORAL active [facility] ([facility]) 3 ML Insulin, Aspart, Human 100 UNT/ML P en Injector [NovoLog] NovoLOG FlexPen 100 UNIT/ML Subcutaneous Solution Pen-injector (insulin aspart) NovoLOG FlexPen 100 UNIT/ML Subcutaneous Solution Pen-injector (insulin aspart) 05/04/2020 12:00:00 AM EDT aborted Type 2 diabetes mellitus with hyperglycemia, with long-term current use of insulin INJECT UNDER THE SKIN THREE TIMES A DAY MAXIMUM DAILY DOSE = 125UNITS [facility] Type 2 diabetes mellitus with hyperglyce starla, [...] UNITS WITH TITRATION AND PRIMING SOLD: 08/24/2020 [facility] 3 ML Insulin Lispro 100 UNT/ML [...] units with titration and priming. Dx: E11.65 [facility] Type 2 diabetes mellitus with hyperglyce starla, [...] DAILY DOSE = 144 UNITS SOLD: 07/04/2020 [facility] Basaglar KwikPen 100 UNIT/ML Subcutaneou s Solution Pen-injector (insulin glargine) [id number] 04/24/2020 12:00:00 AM EDT active Type 2 diabetes mellitus with hyperglycemia, with long-term current use of insulin Inject 60 units, QAM and 60 units QPM, Max Daily Dose: 144 units inclusive of priming and titiration. Dx code: E11.65 [facility] Type 2 diabetes mellitus with hyperglyce starla, [...] units with titration and priming. Dx: E11.65. [facility] Type 2 diabetes mellitus with hyperglyce starla, with long-term current use of insulin FreeStyle Shabbir 14 Day Sensor [id number] 04/20/2020 12:00:00 AM EDT active Type 2 diabetes mellitus with hyperglyce starla, with long-term current use of insulin Use as directed. Change every 14 days. Dx: E11.65 [facility] Type 2 diabetes mellitus with hyperglyce starla, [...] of priming and titiration. Dx code: E11.65 [facility] Type 2 diabetes mellitus with hyperglyce starla, [...] i nto the skin once a week [facility] Type 2 diabetes mellitus with hyperglyce starla, with long-term current use of insulin Cholecalciferol 4000 UNT Oral Capsule Ch olecalciferol 100 MCG (4000 UT) Oral Capsule Cholecalciferol 100 MCG (4000 UT) Oral Capsule 020 12:00:00 AM EDT 1 {capsule} Oral active Take 1 capsu le by mouth daily [facility] Jazzy Mendoza Lancets 33G 04363-689-90 04/20/2020 12:00:00 AM EDT aborted Type 2 diabetes mellitus with hyperglyce starla, with long-term current use of insulin Use to test blood sugar up to 4 times da adeola. Dx: e11.65 [facility] Type 2 diabetes mellitus with hyperglyce starla, with long-term current use of insulin atorvastatin 40 MG Oral Tablet ATORVASTATIN CALCIUM 04/20/2020 1 2:00:00 AM EDT tablet 30 TAKE 1 TABLET BY MOUTH AT BEDTIME TAKE 1 TABLET BY MOUTH AT BEDTIME SOLD: 04/24/2020 [facility] atorvastatin 40 MG Oral Tablet Atorvastatin Calcium 40 MG Oral Tablet (LIPITOR) Atorvastatin Calcium 40 MG Oral Tablet (LIPITOR) 04/20/2020 12:00:00 AM EDT aborted [facility] Losartan Potassium 100 MG Oral Tablet Lo sartan Potassium 100 MG Oral Tablet (COZAAR) Losartan Potassium 100 MG Oral Tablet (COZAAR) 020 12:00:00 AM EDT active [facility] Cholecalciferol 1000 UNT Oral Tablet Vit olmedo D3 25 MCG (1000 UT) Oral Tablet (CHOLECALCIFEROL) Vitamin D3 25 MCG (1000 UT) Oral Tablet (CHOLECALCIFER OL) 03/21/2020 12:00:00 AM EDT aborted TAKE THREE TABLETS BY MOUTH EVERY DAY [facility] Cholecalciferol 1000 UNT Oral Capsule Vitamin D3 12/02/2019 12:00:00 AM EDT ORAL completed [facility] ([facility]) FreeStyle Shabbir 14 Day Sensor [id number] 11/23/2019 12:00:00 AM EDT aborted Type 2 diabetes mellitus with hyperglyce starla, with long-term current use of insulin Use as directed. Change every 14 days. Dx: E11.65 [facility] Type 2 diabetes mellitus with hyperglyce starla, with long-term current use of insulin Baclofen 10 MG Oral Tablet Baclofen 10 MG Oral Tablet (LIORESAL) Baclofen 10 MG Oral Tablet (LIORESAL) 11/18/2019 12:00:00 AM EDT aborted TAKE ONE TABLET BY MOUTH THREE TIMES A DAY NEEDED FOR MUSCLE SPASMS [facility] 0.5 ML dulaglutide 3 MG/ML Auto-Injector [Trulicity] Trulicity 1.5 MG/0.5ML Subcutaneous Solution Pen-injector (dulaglutide) Trulicity 1.5 MG/0.5ML Subcutaneous Solution Pen-injector (dulaglutide) 10/04/2019 12:00:00 AM EDT aborted Type 2 diabetes mellitus with hyperglycemia, with long-term current use of insulin INJECT 1.5MG WEEKLY [facility] Type 2 diabetes mellitus with hyperglyce starla, with long-term current use of insulin Losartan Potassium 50 MG Oral Tablet Los gavin Potassium 50 MG Oral Tablet (COZAAR) Losartan Potassium 50 MG Oral Tablet (COZAAR) 10/01/19 12:00:00 AM EDT aborted [facility] 3 ML Insulin, Aspart, Human 100 UNT/ML P en Injector Insulin Aspart 100 UNIT/ML Subcutaneous Solution Pen-injector (NOVOLOG FLEXPEN) Insulin Aspart 100 UNIT/ML Subcutaneous Solution Pen-injector (NOVOLOG FLEXPEN) 07/28/2019 12:00:00 AM EST aborted Type 2 diabete s mellitus with hyperglycemia, with long-term current use of insulin Inject subq daily per insuli n orders. MDD 175 units with titration and priming. Dx: E11.65. [facility] Type 2 diabetes mellitus with hyperglyce starla, with long-term current use of insulin 0.5 ML dulaglutide 3 MG/ML Auto-Injector Dulaglutide 1.5 MG/0.5ML Subcutaneous Solution Pen-injector (TRULICITY) Dulaglutide 1.5 MG/0.5ML Subcutaneous So lution Pen-injector (TRULICITY) 07/28/2019 12:00:00 AM EST active Type 2 diabetes mellitus with hyperglycemia, with long-term current use of insulin Inject 1.5 mg once weekly. DX:E11.65 [facility] Type 2 diabetes mellitus with hyperglyce starla, [...] of priming and titiration. Dx code: E11.65 [facility] Type 2 diabetes mellitus with hyperglyce starla, with long-term current use of insulin clopidogrel 75 MG Oral Tablet clopidogrel (PLAVIX) 75 MG tablet clopidogrel (PLAVIX) 75 MG tablet 08/25/2017 12:00:00 AM EST 75 mg Oral aborted Take 75 mg by mouth daily [facility] [place] [id number] 06/17/2017 12:00:[address] aborted Type 2 diabetes idris itus with hyperglycemia, with long-term current use of insulin Use to test blood sugar up to 6 times da adeola. Dx: e11.65 [facility] Type 2 diabetes mellitus with hyperglyce starla, with long-term current use of insulin tramadol hydrochloride 50 MG Oral Tablet traMADol HCl 50 MG Oral Tablet (ULTRAM) traMADol HCl 50 MG Oral Tablet (ULTRAM) 50 mg Oral aborted Take 50 mg by mouth every 8 (eight) hours as needed [facility] Rosuvastatin calcium 20 MG Oral Tablet rosuvastatin (C RESTOR) 20 MG tablet rosuvastatin (CRESTOR) 20 MG tablet 20 mg Oral ab orted Take 20 mg by mouth 1 tab daily [facility] carvedilol 6.25 MG Oral Tablet carvedilol (COREG) 6.25 MG tablet carvedilol (COREG) 6.25 MG tablet 6.25 mg Oral aborted Take 6.25 mg by mouth Two times daily with meals [facility] FreeStyle Shabbir 2 Sensor [id number] 1 {each} Does not apply aborted 1 each by Does not apply route every 14 (fourteen) days Use as directed. Dx:E11.65 [facility] Insurance Providers Payer name Policy type / Coverage type Policy ID Covered alliance party ID Covered alliance party's relationship to patiño Policy Patiño Plan Information Bso ZFC,Yot,Yoy,ZFH,ZFP Medigap Part B [id number] Self Z [id number] Bso ZFC,Yot,Yoy,ZFH,ZFP Medigap Part B [id number] Self Z [id number] Bso ZFC,Yot,Yoy,ZFH,ZFP Medigap Part B [id number] Self Z [id number] [facility],ZFH,ZFP Medigap Part B [id number] Self Z [id number] Bso ZFC,Yot,Yoy,ZFH,ZFP Medigap Part B [id number] Self Ghi FHP-(DO Not Use) Medigap Part B [id number] Self 0 [id number] Ghi FHP-(DO Not Use) Medigap Part B [id number] Self Ghi FHP-(DO Not Use) Medigap Part B [id number] Self 0 [id number] Ghi FHP-(DO Not Use) Medigap Part B [id number] Self 0 [id number] Ghi FHP-(DO Not Use) Medigap Part B [id number] Self 0 [id number] BS [place] [id number] Family Dependent [place] Medigap Part B [id number] Family Dependent S [id number] BS [place] Medigap Part B [id number] Family Dependent S [id number] BS [place] Medigap Part B [id number] Family Dependent S [id number] [place] Medigap Part B [id number] Family Dependent S [id number] EXCELLUS C [id number] Self [id number] BS [place] [id number] Family Dependent EXCELLUS H [id number] Spouse [id number] EXCELLUS BCBS [id number] ORe YND [id number] BS [place] [employer] [id number] Family Dependent Y [id number] BS [place] [id number] Family Dependent Y [id number] [employer] [place] [id number] Family Dependent Y [id number] BS [place] [id number] Family Dependent Y [id number] [place] EXCHANGE [id number] Liset 7 [id number] [place] MEDICAID [id number] Liset 7 [id number] [place] EXCHANGE U [id number] Self [id number] D[place] I [id number] Self [id number] D[place] I [id number] Self [id number] ANSI-Not a Secondary Insurance [id number] [place] MEDICAID PI PI [place] [employer] Health Maintenance Organization (HMO) [id number] Self 7 [id number] [employer] 306/806 [id number] WI2 [id number] ANSI-Not a Secondary Insurance [id number] ANSI-Not a Secondary Insurance [id number] ANSI-Not a Secondary Insurance [id number] SELF PAY 2 UNAVAILABLE 1 UNAVAILA BLE SELF PAY ONLY [id number] SP [id number] [employer] BC[employer] Health Maintenance Organization (HMO) [id number] Family Dependent [id number] BCBS [place] P[place] 302/307 [id number] [id number] [employer] BCBS PI PI [place] -[employer] Health Maintenance Organization (HMO) [id number] Self [id number] [place] [employer] Health Maintenance Organization (O) [id number] Self [id number] ANSI-Not a Secondary Insurance [id number] EXC PLANS 1 [id number] ANSI-Not a Secondary Insurance [id number] MEDICAID [id number] SP [id number] MEDICAID M [id number] S [id number] MEDICAID [id number] SP [id number] [place] [id number] SP 7 [id number] [place] [id number] SP [id number] BCBS [place] PPO 302/307 [id number] WI2 [id number] [employer] BCBS B [id number] P [id number] [id number] BCBS [place] PPO 302/307 [id number] [place]2 [id number] [employer] BCBS Health Maintenance Organization ([facility]) [id number] Family Dependent EMEDNY [id number] SP [id number] [place] [id number] S [id number] BCBS [place] PPO 302/307 [id number] WI2 [id number] [place] [id number] SP [id number] BCBS [place] O [id number] U VY [id number] [employer] BCBS P [id number] P KARINE [id number] ANSI-Not a Secondary Insurance [id number] ANSI-Not a Secondary Insurance [id number] [place] -[employer] Maintenance Organization ([facility]) [id number] Self [id number] [place] [employer] Therapies Maintenance Organization ([facility]) [id number] 800 [id number] Self [id number] ANSI-Not a Secondary Insurance [id number] ANSI-Not a Secondary Insurance [id number] ANSI-Not a Secondary Insurance [id number] ANSI-Not a Secondary Insurance [id number] Problems, Conditions, and Diagnoses Code Display Name Description Problem Type Effective Dates Data Source(s) H65.21 [id number] Right chronic serous otitis media Problem 09/20/2020 12:00:00 AM EDT [facility] Surgeries/Procedures Procedure Description Date Indications Data Source(s) TDAP VACCINE 7/> YR IM 03/06/2021 12:00:00 AM EDT [facility] PNEUMOCOCCAL POLYSAC VACCINE 23-V 2 />YR SUBQ/IM 03/06 12:00:00 AM EDT [facility]1 [facility]) ECHO TTHRC R-T 2D W/WOM-MODE COMPL SPEC&COLR DOP 01/23 12:00:00 AM EDT [facility] OFFICE OUTPATIENT VISIT 25 MINUTES 01/23/2021 12:00:00 AM EDT [facility]) Bronchospasm Evaluation 01/15/2021 12:00:00 AM EDT [facility]) Plethysmography Determination Lung Volumes & Per Airway Resi st 01/15/2021 12:00:00 AM EDT [facility] DIFFUSING CAPACITY 01/15/2021 12:00:00 AM EDT [facility]) Spirometry 12/07/2020 12:00:00 AM ED[facility] OFFICE OUTPATIENT VISIT 25 MINUTES 12/07/2020 12:00:00 AM EDT [facility]) OFFICE OUTPATIENT VISIT 25 MINUTES 11/29/2020 12:00:00 AM EDT [facility]) ECG ROUTINE ECG W/LEAST 12 LDS W/I&R 11/16/2020 12:00: 00 AM EDT [facility]) OFFICE OUTPATIENT VISIT 25 MINUTES 11/16/2020 12:00:00 AM EDT [facility]) ECG ROUTINE ECG W/LEAST 12 LDS W/I&R 10/02/2020 12:00: 00 AM EDT [facility]) OFFICE OUTPATIENT VISIT 15 MINUTES 10/02/2020 12:00:00 AM EDT [facility]) ARTHROCENTESIS ASPIR&/INJECTION MAJOR JT/BURSA 021 12:00:00 AM EDT [facility]) RADEX SHOULDER COMPLETE MINIMUM 2 VIEWS 09/20/2020 12: 00:00 AM EDT [facility] ([facility]) OFFICE OUTPATIENT VISIT 15 MINUTES 09/06/2020 12:00:00 AM EST [facility] ([facility], ) ECHO TTHRC R-T 2D W/WOM-MODE COMPL SPEC&COLR DOP 06/26 12:00:00 AM EST [facility] ([facility]) ECG ROUTINE ECG W/LEAST 12 LDS W/I&R 05/12/2020 12:00: 00 AM EST [facility] POCT HEMOGLOBIN A1C, DOCKED <td>POCT HEMOGLOBIN A1C, DOCKED</td><td>Routine</td><td>04/20/2020 12:00 PM EDT</td><td></td><td> </td> 04/20/2020 12:00:00 PM EDT [facility] POCT GLUCOSE, DOCKED <td>POCT GLUCOSE, DOCKED</td ><td>Routine</td><td>04/20/2020 11:58 AM EDT</td><td></td><td> </td> 04/20/2020 11:58:00 AM [facility] Results ID Date Data Source [id number] 04/23/2021 05:12:00 PM EDT [facility] Name Value Range Interpretation Code Description Data Renetta rce(s) Supporting Document(s) Glucose [Mass/volume] in Capillary blood by Glucometer 294 mg/dL 70- 140 [facility] ([facility]) ID Date Data Source [id number] 04/23/2021 02:54:32 PM EDT [facility] Name Value Range Interpretation Code Description Data Renetta rce(s) Supporting Document(s) Discharge Summary [facility] BFQWTj2wLgPEIiYu83/IFNhbXUZtz6EsCMrxRSg6KOoeYRUdP6XxNGB8sW6gMBK5CKdOKmJhQzVfKXO9 lbm [file] YBqfEA02pYiAmPJ8gh/S9OfZ5vW9r5bobcVTwCt5V7CvT0+mZSR7GqOL5yD57CwcSpIybfVUoHXA+social work program coordinator [file] ICAgICAgICAgICAgICAgICAgICAgICAgICAgICAgIC AgICAgICAgICAgICAgICAgICAgICAgICAgICAgICAgICAgDQogICAgICAgICAgICAgICAgICAgICAgIC AgICAgICAgICAgICAgICAgICAgICAgICAgICAgICAgICAgICAgICAgICAgICAgICAgICAgICAgICAgIC AgICAgICAgICAgICAgICAgDQogICAgICAgICAgICAg ICAgICAgICAgICAgICAgICAgICAgICAgICAgICAgICAgICAgICAgICAgICAgICAgICAgICAgICAgICAg ICAgICAgICAgICAgICAgICAgICAgICAgICAgDQogICAgICAgICAgICAgICAgICAgICAgICAgICAgICAg ICAgICAgICAgICAgICAgICAgICAgICAgICAgICAgIC AgICAgICAgICAgICAgICAgICAgICAgICAgICAgICAgICAgICAgDQogICAgICAgICAgICAgICAgICAgIC AgICAgICAgICAgICAgICAgICAgICAgICAgICAgICAgICAgICAgICAgICAgICAgICAgICAgICAgICAgIC AgICAgICAgICAgICAgICAgICAgDQogICAgICAgICAg ICAgICAgICAgICAgICAgICAgICAgICAgICAgICAgICAgICAgICAgICAgICAgICAgICAgICAgICAgICAg ICAgICAgICAgICAgICAgICAgICAgICAgICAgICAgDQogICAgICAgICAgICAgICAgICAgICAgICAgICAg ICAgICAgICAgICAgICAgICAgICAgICAgICAgICAgIC AgICAgICAgICAgICAgICAgICAgICAgICAgICAgICAgICAgICAgICAgDQogICAgICAgICAgICAgICAgIC AgICAgICAgICAgICAgICAgICAgICAgICAgICAgICAgICAgICAgICAgICAgICAgICAgICAgICAgICAgIC AgICAgICAgICAgICAgICAgICAgICAgDQogICAgICAg ICAgICAgICAgICAgICAgICAgICAgICAgICAgICAgICAgICAgICAgICAgICAgICAgICAgICAgICAgICAg ICAgICAgICAgICAgICAgICAgICAgICAgICAgICAgICAgDQogICAgICAgICAgICAgICAgICAgICAgICAg ICAgICAgICAgICAgICAgICAgICAgICAgICAgICAgIC ZaWNAdUGJiCABoCFHsPHVcNEGiBBHjFTAlZKWvTYWoOTKnEDOoJXIvFBZaMIg2A2saOVFhVHEyKP6eOQ d3Jz8+QBlUNzQwYBR9jhUbaH0QSL1zm5GeQDyeMEPdg6MuTRj4YR7HERUgJWzmSQ3MKHsmsu5LQQIqCU ZazZIAm0coIeLqQCS8MGGsCarwQM0QFBPlZ3pjewHw ZBKdRLZZICdkVZBOLDcpEZPJCALmOZMbXqSjXwGrZCQmTCVyJQWJIRS6XDPiLhWuCAynNY1Qt6SzsZJ1 DQo+Wx4JNO0iz6XnBAjeFdNuTJ3bhk5LHYgUGnEwX5VotyP6BYN2ZJTjKa5CEHAyEWJqqGGeFFQcYSQD UqFzC4ZnyG46GXQKVw6+HIspbkAqMioBFzO3UZJqc5 FzKLc0FC9DBPPhFGc4yPSlNGdaK5mulcuuVSS4gM6knyoyFwrhUQCwYX1aC2C7iYfpVN2FCIV5SSKnMp W4BbVtXoXnJQX7VlTrFI7mBTkrYA2CIAM4MWarKMBwZFJoM7cWCcAiGWXrZpOveSplOP1OZuOjU1Eqig VudCAzNyAwIFINCj4+MKkjysSgUwtZUnR2CGLbh7Rs EEa9ER0UXGNkKWreZW7BQTBqvT8tPLksIK8FIkOgXCOdRCZFEdOpL65sgTYlGBl0M5EaUfSpNVHqCfix ZXMgPDwvTmFtZXMgWyBdDQogID4+ID4+MBarZS4YXZiqyuGnGHMgOi5BBSMvMVTkCB8iCXSdVRQpU5V4 aWpgIAGLSmOuX2msgqlkTZ8gKVIzA988oVwartVxNO C4KIDeIr8WXZCaYKC3IPKnwJTyXwCrPHQBMRqfCE6WeNBcYKJ8vN0vUZfdFPRmCQVdR3eGQuEtjVhyVI 51bGwgbnVsbCBdDQo+Ej5LSM3vt8RfUJx1vyEhZTfyQIZaEWpvDBYyTSRpIEEeVVW0XSJ5QZXQPdJiFO YrOIRgEAvlSGAyNTGfbg2QIECjZKTeEkT1JKEbRDXa IQZoSCmoITVpVGZ3UYNaHBOvUWCpSP8DSkCwXFLnDMVjTGkrCBCsMSIlus8KNOSdFOJxGYWzXKIzLTYl JUUgWKsuSHOxMUY9DPYbXTXtJBEpHP0ALhWrTJHqIMrkPjTgNTYbDEEbbx2CHNEiPDRmXHRyNDRoVRJr FQDhEUboWICaVBYpUjS8NCLlSDRjOC6KFhQmFHHzRL J7EpujAJUgTNGohw0OOBThQGLnXnQjSHSmQSDxJZYeHRdtQVWfJHA2MfR1DDOgUZJpDW8UAnVhDLBtWI g1EURsANPkKWVdjv0QJJHtSYGlOQe4TYIsVSUcPTRhMQmvBDEhSHVaGBs2GSAzSWLyCE5VZrIiYWHeOk FtJYCoHATuTBInww0EHWTkRMOsKGC5PsVtBUWtYPRa GJlbYPKiAAB9LHoeRFLhXKEsKT4GQcKbYNDzIsS8TOBhBXLbDIRgga3CXUIiVRHdPeZpMZVzCRTpIGTe SVryFVZkFCG4OmUoIHEsMKNdKB4OAmDoUZJlYsnbGCIeWDRnDAGsgw6VITOcSXWeYhH3SeRxUKLhJDXe ZKcwGXUjZCL8KCifAAFgLCTjYH2IHoJkEMPoDkl9Ud KmSMHoSKHtsg1ZNEWzPTFaFNnbKIYhJDGuKCSbURxwLBYyICM2GOVoRCVhAAKbWE1MAhJwRCNvFap1Yd JxNQGsIFLhrq9ZZKJjUVVgCPC8RUSjQTYiBQQqVPwtJYTtLNUjAnQ0AITcAVClNV9QThJyDAQpPzCuKn JgXJPiYUKudb0XWIDjXMQgBCSzRAGsKUQwTMGeFCrt EYXgFUN5NxSpPNEuCZQyCF8TXdDeCBZyCtK0OCOzGEBaNQTdcz1ILCJhAAVwLmBbMMUgGGWvVGUzIQjf UWOmKEE6XQvqAYIqZWPiDZ7WXjDjIGHtZzu2CTsmPMCtYOHiwt1JBBHwVARfBSDsYEVdSOUuYBSzGEng CYFcQZO5VDfxLFKsNGHvVM5NIcJzBZvvQDYPLws2MF foO7u6ICB7WD5HL7Mjd8SgEhlvJMWYULytWD9sreSlTFJwGc5AK7cPJffxZLx0LGQyRGH5EdXwFWEiCC IrVRP9RcPgN0J1FxU1Ri8vEUN4WoHoOkP1QlusVTL5TjN3TNW2YdhlB1VnQSidWpUcTjGcHA1YJy8CYf Z9KTZ7mQNqOq4XDhk4DMDSOgMsJG0AVYt= ID Date Data Source [id number] 04/23/2021 01:12:23 PM EDT [facility] Name Value Range Interpretation Code Description Data Renetta rce(s) Supporting Document(s) Glucose [Mass/volume] in Capillary blood by Glucometer 294 mg/dL 70- 140 [facility] ID Date Data Source [id number] 04/23/2021 12:34:00 PM EDT [facility] ([facility] [place]) Name Value Range Interpretation Code Description Data Renetta rce(s) Supporting Document(s) Glucose [Mass/volume] in Capillary blood by Glucometer 202 mg/dL 70- 140 [facility] ([facility]) ID Date Data Source [id number] 04/23/2021 08:34:18 AM EDT [facility] Name Value Range Interpretation Code Description Data Renetta rce(s) Supporting Document(s) Glucose [Mass/volume] in Capillary blood by Glucometer 202 mg/dL 70- 140 [facility] ID Date Data Source [id number] 04/23/2021 01:16:00 AM EDT [facility] ([facility] [place]) Name Value Range Interpretation Code Description Data Renetta rce(s) Supporting Document(s) Glucose [Mass/volume] in Capillary blood by Glucometer 244 mg/dL 70- 140 [facility] ([facility]) ID Date Data Source [id number] 04/22/2021 09:50:00 PM EDT [facility] ([facility] [place]) Name Value Range Interpretation Code Description Data Renetta rce(s) Supporting Document(s) Glucose [Mass/volume] in Capillary blood by Glucometer 135 mg/dL 70- 140 [facility] ([facility]) ID Date Data Source [id number] 04/22/2021 09:16:29 PM EDT [facility] Value Range Interpretation Code Description Data Renetta rce(s) Supporting Document(s) Glucose [Mass/volume] in Capillary blood by Glucometer 244 mg/dL 70- 140 [facility] ID Date Data Source [id number] [facility] Code Description Data Renetta rce(s) Supporting Document(s) Glucose [Mass/volume] in Capillary blood by Glucometer 135 mg/dL 70- 140 [facility] ID Date Data Source [id number] 04/22/2021 04:56:00 PM EDT [facility] ([facility] [place]) Name Value Range Interpretation Code Description Data Renetta rce(s) Supporting Document(s) Glucose [Mass/volume] in Capillary blood by Glucometer 317 mg/dL 70- 140 [facility] ([facility]) ID Date Data Source [id number] 04/22/2021 12:56:00 PM EDT [facility] ([facility] [place]) Name Value Range Interpretation Code Description Data Renetta rce(s) Supporting Document(s) Glucose [Mass/volume] in Capillary blood by Glucometer 212 mg/dL 70- 140 [facility] ([facility]) ID Date Data Source [id number] 04/22/2021 12:56:16 PM [facility] Value Range Interpretation Code Description Data Renetta rce(s) Supporting Document(s) Glucose [Mass/volume] in Capillary blood by Glucometer 317 mg/dL 70- 140 [facility] ID Date Data Source [id number] 04/22/2021 08:56:47 AM EDT [facility] Value Range Interpretation Code Description Data Renetta rce(s) Supporting Document(s) Glucose [Mass/volume] in Capillary blood by Glucometer 212 mg/dL 70- 140 [facility] ID Date Data Source [id number] 04/22/2021 07:32:00 AM EDT [facility] ([facility]) Name Value Range Interpretation Code Description Data Renetta rce(s) Supporting Document(s) Chloride [Moles/volume] in Serum or Plasma 104 mmol/L 98-107 [facility] ([facility]) Bicarbonate [Moles/volume] in Serum 25 mmol/L 22-29 [facility] ([facility]) Glucose [Mass/volume] in Serum or Plasma 199 mg/dL 70-140 [facility] ([facility]) Creatinine [Mass/volume] in Serum or Plasma 0.88 mg/dL 0.70-1.20 [facility] ([facility]) Potassium [Moles/volume] in Serum or Plasma 4.0 mmol/L 3.4-5.1 [facility] ([facility]) Sodium [Moles/volume] in Serum or Plasma 139 mmol/L 136-145 [facility] ([facility]) Anion gap in Serum or Plasma 10 mmol/L 8-15 [facility] ([facility]) Osmolality of Serum or Plasma by calculation 296 mosm/kg 275.0-300.0 [facility] ([facility]) Urea nitrogen [Mass/volume] in Serum or Plasma 20 mg/dL 6-20 [facility] ([facility]) Glomerular filtration rate/1.73 sq M pre dicted among non-blacks [Volume Rate/Area] in Serum or Plasma by Creatinine-based formula (MDRD) Laboratory test result [facility] ([facility]) Creatinine/Urea nitrogen [Mass Ratio] in Serum or Plasma 23 [facility] ([facility]) Calcium [Mass/volume] in Serum or Plasma 8.4 mg/dL 8.6-10.0 [facility] ([facility]) Glomerular filtration rate/1.73 sq M pre dicted among blacks [Volume Rate/Area] in Serum or Plasma by Creatinine-based formula (MDRD) Laboratory test result [facility] ([facility]) ID Date Data Source [id number] 04/22/2021 07:14:00 AM EDT [facility] ([facility]) Name Value Range Interpretation Code Description Data Renetta rce(s) Supporting Document(s) Leukocytes [#/volume] in Blood by Automated count 6.7 10*3/uL 4.00-10 .00 [facility] ([facility]) Erythrocytes [#/volume] in Blood by Automated count 4.48 10*6/uL 4.60 -6.10 [facility] ([facility]) Hematocrit [Volume Fraction] of Blood by Automated count 39.4 % 4 1.0-53.0 [facility] ([facility]) Hemoglobin [Mass/volume] in Blood 13.9 g/dL 13.5-18.0 [facility] ([facility]) Erythrocyte mean corpuscular volume [Entitic volume] by Auto mated count 88.0 fL 80.0-96.0 [facility] ([facility]) Erythrocyte mean corpuscular hemoglobin [Entitic mass] by Automated count 31.0 pg 27.0-33.0 [facility] ([facility]) Erythrocyte mean corpuscular hemoglobin concentration [Mass/volume] by Automated count 35.2 g/dL 32-36 [facility] Platelets [#/volume] in Blood by Automated count 163 10*3/uL 150-400 [facility] ([facility]) Erythrocyte distribution width [Ratio] by Automated count 13.2 % 11.5-14.5 [facility] ([facility]) Differential cell count method - Blood Laboratory test result [facility] ([facility]) Neutrophils/100 leukocytes in Blood by Automated count 48 % [facility] ([facility]) Lymphocytes/100 leukocytes in Blood by Automated count 40 % [facility] ([facility]) Monocytes/100 leukocytes in Blood by Automated count 8 % [facility] ([facility]) Eosinophils/100 leukocytes in Blood by Automated count 3 % [facility] ([facility]) Lymphocytes [#/volume] in Blood by Automated count 2.68 10*3/uL 1.20- 4.00 [facility] ([facility]) Basophils/100 leukocytes in Blood by Automated count 1 % [facility] ([facility]) Neutrophils [#/volume] in Blood by Automated count 3.23 10*3/uL 1.80- 7.00 [facility] ([facility]) Monocytes [#/volume] in Blood by Automated count 0.51 10*3/uL 0.00-0. 80 [facility] ([facility]) Eosinophils [#/volume] in Blood by Automated count 0.19 10*3/uL 0.00- 0.50 [facility] ([facility]) Basophils [#/volume] in Blood by Automated count 0.05 10*3/uL 0.00-0. 20 [facility] ([facility]) Nucleated erythrocytes/100 leukocytes [Ratio] in Blood by Automated count 0 /100{WBCs} 0-0 [facility] ([facility]) ID Date Data Source [id number] 04/22/2021 03:14:35 AM EDT [facility] Name Value Range Interpretation Code Description Data Renetta rce(s) Supporting Document(s) Leukocytes [#/volume] in Blood by Automated count 6.7 10*3/uL 4-10 [facility] Erythrocytes [#/volume] in Blood by Automated count 4.48 10*6/uL 4.6- 6.1 L [facility] Hemoglobin [Mass/volume] in Blood 13.9 g/dL 13.5-18 [facility] Hematocrit [Volume Fraction] of Blood by Automated count 39.4 % 4 1-53 [facility] Erythrocyte mean corpuscular volume [Entitic volume] by Auto mated count 88.0 fL 80-96 [facility] Erythrocyte mean corpuscular hemoglobin [Entitic mass] by Automated count 31.0 pg 27-33 [facility] Erythrocyte mean corpuscular hemoglobin concentration [Mass/volume] by Automated count 35.2 g/dL 32.0-[facility] width [Ratio] by Automated count 13.2 % 11.5-14.5 [facility] Platelets [#/volume] in Blood by Automated count 163 10*3/uL 150-400 [facility] Differential cell count method - Blood [facility] Neutrophils/100 leukocytes in Blood by Automated count 48 % [facility] Lymphocytes/100 leukocytes in Blood by Automated count 40 % [facility] Monocytes/100 leukocytes in Blood by Automated count 8 % [facility] Eosinophils/100 leukocytes in Blood by Automated count 3 % [facility] Basophils/100 leukocytes in Blood by Automated count 1 % [facility] Neutrophils [#/volume] in Blood by Automated count 3.23 10*3/uL 1.8-7 .0 [facility] Lymphocytes [#/volume] in Blood by Automated count 2.68 10*3/uL 1.2-4 .0 [facility] Monocytes [#/volume] in Blood by Automated count 0.51 10*3/uL 0-0.8 [facility] Eosinophils [#/volume] in Blood by Automated count 0.19 10*3/uL 0-0.5 [facility] Basophils [#/volume] in Blood by Automated count 0.05 10*3/uL 0-0.2 [facility] Nucleated erythrocytes/100 leukocytes [Ratio] in Blood by Automated count 0 /100{WBCs} 0-0 [facility] ID Date Data Source [id number] 04/22/2021 03:32:58 AM EDT [facility] Name Value Range Interpretation Code Description Data Renetta rce(s) Supporting Document(s) Bicarbonate [Moles/volume] in Serum 25 mmol/L 22-29 [facility] Chloride [Moles/volume] in Serum or Plasma 104 mmol/L 98-107 [facility] Creatinine [Mass/volume] in Serum or Plasma 0.88 mg/dL 0.70-1.20 [facility] Glucose [Mass/volume] in Serum or Plasma 199 mg/dL 70-140 [facility] Potassium [Moles/volume] in Serum or Plasma 4.0 mmol/L 3.4-5.1 [facility] Sodium [Moles/volume] in Serum or Plasma 139 mmol/L 136-145 [facility] Urea nitrogen [Mass/volume] in Serum or Plasma 20 mg/dL 6-20 [facility] Anion gap 3 in Serum or Plasma 10 mmol/L 8-15 [facility] Osmolality of Serum or Plasma by calculation 296 mosm/kg 275-300 [facility] Creatinine/Urea nitrogen [Mass Ratio] in Serum or Plasma 23 [facility] Calcium [Mass/volume] in Serum or Plasma 8.4 mg/dL 8.6-10.0 L [facility] Glomerular filtration rate/1.73 sq M pre dicted among non-blacks [Volume Rate/Area] in Serum or Plasma by Creatinine-based formula (MDRD) >6 0 [facility] Glomerular filtration rate/1.73 sq M pre dicted among blacks [Volume Rate/Area] in Serum or Plasma by Creatinine-based formula (MDRD) >60 [facility] ID Date Data Source [id number] 04/22/2021 12:27:00 AM EDT [facility] ([facility] [place]) Name Value Range Interpretation Code Description Data Renetta rce(s) Supporting Document(s) Glucose [Mass/volume] in Capillary blood by Glucometer 218 mg/dL 70- 140 [facility] ([facility]) ID Date Data Source [id number] 04/21/2021 10:04:00 PM EDT [facility] ([facility] [place]) Name Value Range Interpretation Code Description Data Renetta rce(s) Supporting Document(s) Glucose [Mass/volume] in Capillary blood by Glucometer 153 mg/dL 70- 140 [facility] ([facility]) ID Date Data Source [id number] 04/21/2021 08:27:54 PM [facility] Name Value Range Interpretation Code Description Data Renetta rce(s) Supporting Document(s) Glucose [Mass/volume] in Capillary blood by Glucometer 218 mg/dL 70- 140 [facility] ID Date Data Source [id number] 04/21/2021 06:04:26 PM [facility] Name Value Range Interpretation Code Description Data Renetta rce(s) Supporting Document(s) Glucose [Mass/volume] in Capillary blood by Glucometer 153 mg/dL 70- 140 [facility] ID Date Data Source [id number] 04/21/2021 04:59:00 PM EDT [facility] ([facility] [place]) Name Value Range Interpretation Code Description Data Renetta rce(s) Supporting Document(s) Glucose [Mass/volume] in Capillary blood by Glucometer 225 mg/dL 70- 140 [facility] ([facility]) ID Date Data Source [id number] 04/21/2021 03:39:00 PM EDT [facility] ([facility] [place]) Name Value Range Interpretation Code Description Data Renetta rce(s) Supporting Document(s) Microscopic observation [Identifier] in Unspecified sp ecimen by Gram stain Laboratory test result Abnormal (applies to non-numeric results) [facility] ([facility]) Microscopic observation [Identifier] in Unspecified sp ecimen by Gram stain Laboratory test result [facility] ([facility]) Service comment Laboratory test result [facility] ([facility]) ID Date Data Source [id number] 04/21/2021 01:11:00 PM EDT [facility] ([facility] [place]) Name Value Range Interpretation Code Description Data Renetta rce(s) Supporting Document(s) Glucose [Mass/volume] in Capillary blood by Glucometer 270 mg/dL 70- 140 [facility] ([facility]) ID Date Data Source [id number] 04/21/2021 12:59:03 PM [facility] Name Value Range Interpretation Code Description Data Renetta rce(s) Supporting Document(s) Glucose [Mass/volume] in Capillary blood by Glucometer 225 mg/dL 70- 140 [facility] ID Date Data Source [id number] 04/21/2021 09:11:18 AM [facility] Name Value Range Interpretation Code Description Data Renetta rce(s) Supporting Document(s) Glucose [Mass/volume] in Capillary blood by Glucometer 270 mg/dL 70- 140 [facility] ID Date Data Source [id number] 04/21/2021 08:36:00 AM EDT [facility] ([facility] [place]) Name Value Range Interpretation Code Description Data Renetta rce(s) Supporting Document(s) Chloride [Moles/volume] in Serum or Plasma 107 mmol/L 98-107 [facility] ([facility]) Creatinine [Mass/volume] in Serum or Plasma 0.84 mg/dL 0.70-1.20 [facility] ([facility]) Bicarbonate [Moles/volume] in Serum 23 mmol/L 22-29 [facility] ([facility]) Glucose [Mass/volume] in Serum or Plasma 209 mg/dL 70-140 [facility] ([facility]) Potassium [Moles/volume] in Serum or Plasma 3.7 mmol/L 3.4-5.1 [facility] ([facility]) Hemolyzed Sodium [Moles/volume] in Serum or Plasma 140 mmol/L 136-145 [facility] ([facility]) Urea nitrogen [Mass/volume] in Serum or Plasma 24 mg/dL 6-20 [facility] ([facility]) Osmolality of Serum or Plasma by calculation 301 mosm/kg 275.0-300.0 [facility] ([facility]) Anion gap in Serum or Plasma 11 mmol/L 8-15 [facility] ([facility]) Creatinine/Urea nitrogen [Mass Ratio] in Serum or Plasma 29 [facility] ([facility]) Glomerular filtration rate/1.73 sq M pre dicted among non-blacks [Volume Rate/Area] in Serum or Plasma by Creatinine-based formula (MDRD) Laboratory test result [facility] ([facility]) Glomerular filtration rate/1.73 sq M pre dicted among blacks [Volume Rate/Area] in Serum or Plasma by Creatinine-based formula (MDRD) Laboratory test result [facility] ([facility]) Calcium [Mass/volume] in Serum or Plasma 8.5 mg/dL 8.6-10.0 [facility] ([facility]) ID Date Data Source [id number] 04/21/2021 08:33:00 AM EDT [facility] ([facility]) Name Value Range Interpretation Code Description Data Renetta rce(s) Supporting Document(s) Leukocytes [#/volume] in Blood by Automated count 8.7 10*3/uL 4.00-10 .00 [facility] ([facility]) Erythrocytes [#/volume] in Blood by Automated count 4.32 10*6/uL 4.60 -6.10 [facility] ([facility]) Hemoglobin [Mass/volume] in Blood 13.3 g/dL 13.5-18.0 [facility] ([facility]) Erythrocyte mean corpuscular volume [Entitic volume] by Auto mated count 88.3 fL 80.0-96.0 [facility] ([facility]) Hematocrit [Volume Fraction] of Blood by Automated count 38.1 % 4 1.0-53.0 [facility] ([facility]) Erythrocyte mean corpuscular hemoglobin [Entitic mass] by Automated count 30.8 pg 27.0-33.0 [facility] ([facility]) Erythrocyte distribution width [Ratio] by Automated count 13.7 % 11.5-14.5 [facility] ([facility]) Erythrocyte mean corpuscular hemoglobin concentration [Mass/volume] by Automated count 34.8 g/dL 32-36 [facility] Differential cell count method - Blood Laboratory test result [facility] ([facility]) Platelets [#/volume] in Blood by Automated count 165 10*3/uL 150-400 [facility] ([facility]) Monocytes/100 leukocytes in Blood by Automated count 7 % [facility] ([facility]) Lymphocytes/100 leukocytes in Blood by Automated count 18 % [facility] ([facility]) Neutrophils/100 leukocytes in Blood by Automated count 75 % [facility] ([facility]) Eosinophils/100 leukocytes in Blood by Automated count 0 % [facility] ([facility]) Basophils/100 leukocytes in Blood by Automated count 0 % [facility] ([facility]) Lymphocytes [#/volume] in Blood by Automated count 1.55 10*3/uL 1.20- 4.00 [facility] ([facility]) Neutrophils [#/volume] in Blood by Automated count 6.55 10*3/uL 1.80- 7.00 [facility] ([facility]) Eosinophils [#/volume] in Blood by Automated count 0.01 10*3/uL 0.00- 0.50 [facility] ([facility]) Monocytes [#/volume] in Blood by Automated count 0.61 10*3/uL 0.00-0. 80 [facility] ([facility]) Nucleated erythrocytes/100 leukocytes [Ratio] in Blood by Automated count 0 /100{WBCs} 0-0 [facility] ([facility]) Basophils [#/volume] in Blood by Automated count 0.01 10*3/uL 0.00-0. 20 [facility] ([facility]) ID Date Data Source [id number] 04/21/2021 08:27:00 AM EDT [facility] ([facility] [place]) Name Value Range Interpretation Code Description Data Renetta rce(s) Supporting Document(s) Prothrombin time (PT) 13.4 s 11.6-14.0 MED ENT ([facility]) INR in Platelet poor plasma by Coagulation assay 1.06 [facility] ([facility]) Routine intensity oral anticoagulation I NR is typically 2.0-3.0. Target INR must be clinically individualized. ID Date Data Source [id number] 04/21/2021 08:27:00 AM EDT [facility] ([facility] Name Value Range Interpretation Code Description Data Renetta rce(s) Supporting Document(s) Heparin unfractionated [Units/volume] in Platelet poor plasma by Chromogenic method 0.14 U/ml [facility] ([facility]) ID Date Data Source [id number] 04/21/2021 08:05:19 AM EDT [facility] Name Value Range Interpretation Code Description Data Renetta rce(s) Supporting Document(s) [facility] RXBGQc9qGkUOYsTcj3VaCkDaGKOuQM6xola5Z6Y8eJYtG0FrePFmr0hzY1JmW9CwYEBmUPGQPI5ZyNTq jb2 [file] ++XH5z/20jnnqw54O642+yU7JAUw/v6vv/v2V99+80 9f/yfcqg200Ct+l0nAwIo3cN1wm/inv/Gx2we/P/Yvv/bcs81ckl46111/9/rJf/nq0y/vL3x8+4vXzD gP5/VgrvEPP/6JAM3uTI78/9U/qLWw3utgoGg4DT8IIb3s7/vIU6w70r3/6a9dOhh/+cWf//Qff/jLH3 /494///X99/PYP//mfv/fFB4487T/+w8fPf/enP/zw nx//9j/K+re///uoz54v6Icg/BTXsz67+mevJffzr//x0BP23t4I7W/840//y8+9G0gRT4aaEk/xt4aD oWyiyw8c/bLMF9SW0K93/cW2EMg571xz+1/7VAd4VumxDj3+8q4aKmicrh82dHlA22bxCSsk+wPf/fAf W9h09P6zmp5+vvj8q0+/+uqbj19+/eOAa99XImASEy 873fyz+9kw2UMu/lWkwZ+58LNfey+jYMsB5/Juam+T6Lc//Om///HjL7/77x/rsb73Hb7jOM38X6/0h4 ZQx9T3rgqcCm17b99//Om/f/jL//1XF8+hok76Zs//PKnxN34+wX/+7vuPf/+fr4v/w5//3CBhU8r2N/ 0+f+LB/vnTT//50+/0Bk4KivxyWK8f4qbVkiI5Vw9a BofbSq88Ug9pD1449ukC29Z781cjKI/+yXc/+fTxu//nh//529qoTOyIw6b7+Xc/rZc1uDXd1p//6y// 9vc/+nQ+ia9/905iH5l/oV/87n/+/nf/9Yff/emvv//0w3d//fMeV7xiVmO/+khe86/+/MqAVo4oo94f Yxc8neuWn205/f/5pz/8/bTico38jnUv+0efhRQIP/ tf//0aO//+2Re//PL7T7/+/Ktv/pw5rUGi1q7+/lND70i4/jN/0+EPuf/ol0cidhiTeNM/7v/44aN8/P k/Zwb7M9ydvO/M//6e+Eaiwzv5nv4By3e///QbQb5P0vF8PcW+9rvXa/josJ1M6O7nk/HSy5G2rmMp3z XalJf/lyf6/uQGJDmyHoKuJDD7gwIyjEmgnqLeWjhL PIwfNXVeTho3DW1JzFBfCKAlE9L6WSZdnj9fRFPzWTLenVPxOoNzXSMRBN7KeBPgFR0OQNm3QRHwRTIn HtHrBLHtbpM7EXVmOKMoMNOzE9XsjlSmjHWaIWYcSa5+BT9tp3NmHxDsLBKrEzi3RZ2ZdOAfUP7TcOCm xE5vnnNgZ517dhGfGMVwMoojc5FxIGzxIMATYC9ODC N5SIF3LCYpGf2+PS2sk4ZqDtRnSEVzQzr7BJ5UmUQch8YsFZ5UF1HkOUHlWAOXZXZ2h8DsEAOarqotdt nwI4WdQPZ6wG1nDXV6WYTwCVjgMQCtRSAbJwG0ICTuIJsvBEOxOZRcWDDdTMRcRBx6tVDrDR5GS3VoBE AyPTTDAHAntdAmYf6jKLVPTURXM08QKQKJIIPQTCOL WKLiLALfCUcoJX1AeCTdGLY4LWiNRHDMMKxHNAyoOaXeo1K6DHWoP9PmIQJkmwNaZSUHZRzgPizaKV5w sSozbxgeL6LrtJEzUZYBYLUaMPMlIBRyMYFfF0Opy3L7M1UbBBpEJKQJKUfCKKfnCzG5h51ofeNMSHKk ZXMpID4+JC7cf9XxOx6TBSCnUK7xwod4DW4DjHUtTS 0CAIncqjBjD9iyujVtPgBsSJRZOB6fJ8UrrF95NKV+NkQxGR8fztw3fkToNgYbCZVgDTLvZTLxLOahJH OfQHAuBIXtACZ9OPC9RRKoEePrCNNbPcA4VxTbEUEbKSGnrcPCNMEfFAI6CZVwURHbZFNhMNMiSYujHW BkMJq9FHF2NFPwWTSyQV9zXnWuHCUoHHPaMCLuOkA1 NsIyFuNGXCNdNJZrUQYeInXeRKRvKPVqUKqdUAFmKBTgVUc5DVXvVIIdPZ0dCwBwLYEpFLNrMCRxFNAc ETRkqpPKJXWvLMNiZNX5ODDcBMJgRBHhQDfyQEUkABClTCL6MSBlLYWwZE0sSrYuKMJgIHL2TwIbYQQl CROacpREOJHjXINqOFL3QVXaFZMjNRRuKJgtTLRpLX GsEuH8DQBiVZQrHN8zMtYyBYKgONL9ZMXvQYXxHCTxurLDNCFuNPEyFOr7UrNrPDWyXLBxRKuoCTFaVU ChTIebKPTcXTUaTO4eMzCjSYTsTYYnGFTiOMCjNEYmxfJOMFDzHMPjHEC0FrCwMUWvQMBoXHzzJTWtTL BvMST1UFPqYNFuHM5bGuEsWNOcQtSzCyOaIWOqQXZf xnHLJVBpIEEtHWRwJAYwIPYtBCMqSLqhETLbSEFbSwK2DZGcWIVkTF5bNeKaXJRyDBB4DUOrOBAuMSHn efNZOJTwQQAmGYLmAQA2HTFgRHCjVUf9csXjpRPiLof0Cp0YkFexEER4Yq7NytRyNOQxQWGGWd5Vn456 IDUgMCBSCgo+IbcyaHUpaRjnFYFXLxU9HrqYENSCN0W= ID Date Data Source [id number] 04/21/2021 04:13:00 AM EDT [facility] Name Value Range Interpretation Code Description Data Renetta rce(s) Supporting Document(s) Glucose [Mass/volume] in Capillary blood by Glucometer 276 mg/dL 70- 140 [facility] ([facility]) ID Date Data Source [id number] 04/21/2021 04:27:49 AM [facility] Name Value Range Interpretation Code Description Data Renetta rce(s) Supporting Document(s) Heparin unfractionated [Units/volume] in Platelet poor plasma by Chromogenic method 0.14 U/ml [facility] ID Date Data Source [id number] 04/21/2021 04:27:49 AM [facility] Name Value Range Interpretation Code Description Data Renetta rce(s) Supporting Document(s) Prothrombin time (PT) 13.4 s 11.6-14.0 [facility] INR in Platelet poor plasma by Coagulation assay 1.06 [facility] Routine intensity oral anticoagulation I NR is typically 2.0-3.0. Target INR must be clinically individualized. ID Date Data Source [id number] 04/21/2021 04:33:18 AM [facility] Name Value Range Interpretation Code Description Data Renetta rce(s) Supporting Document(s) Leukocytes [#/volume] in Blood by Automated count 8.7 10*3/uL 4-10 [facility] Erythrocytes [#/volume] in Blood by Automated count 4.32 10*6/uL 4.6- 6.1 L [facility] Hemoglobin [Mass/volume] in Blood 13.3 g/dL 13.5-18 L [facility] Hematocrit [Volume Fraction] of Blood by Automated count 38.1 % 4 1-53 L [facility] Erythrocyte mean corpuscular volume [Entitic volume] by Auto mated count 88.3 fL 80-96 [facility] Erythrocyte mean corpuscular hemoglobin [Entitic mass] by Automated count 30.8 pg 27-33 [facility] Erythrocyte mean corpuscular hemoglobin concentration [Mass/volume] by Automated count 34.8 g/dL 32.0-[facility] width [Ratio] by Automated count 13.7 % 11.5-14.5 [facility] Platelets [#/volume] in Blood by Automated count 165 10*3/uL 150-400 [facility] Differential cell count method - Blood [facility] Neutrophils/100 leukocytes in Blood by Automated count 75 % [facility] Lymphocytes/100 leukocytes in Blood by Automated count 18 % [facility] Monocytes/100 leukocytes in Blood by Automated count 7 % [facility] Eosinophils/100 leukocytes in Blood by Automated count 0 % [facility] Basophils/100 leukocytes in Blood by Automated count 0 % [facility] Neutrophils [#/volume] in Blood by Automated count 6.55 10*3/uL 1.8-7 .0 [facility] Lymphocytes [#/volume] in Blood by Automated count 1.55 10*3/uL 1.2-4 .0 [facility] Monocytes [#/volume] in Blood by Automated count 0.61 10*3/uL 0-0.8 [facility] Eosinophils [#/volume] in Blood by Automated count 0.01 10*3/uL 0-0.5 [facility] Basophils [#/volume] in Blood by Automated count 0.01 10*3/uL 0-0.2 [facility] Nucleated erythrocytes/100 leukocytes [Ratio] in Blood by Automated count 0 /100{WBCs} 0-0 [facility] ID Date Data Source [id number] 04/21/2021 04:36:19 AM EDT [facility] Name Value Range Interpretation Code Description Data Renetta rce(s) Supporting Document(s) Bicarbonate [Moles/volume] in Serum 23 mmol/L 22-29 [facility] Chloride [Moles/volume] in Serum or Plasma 107 mmol/L 98-107 [facility] Creatinine [Mass/volume] in Serum or Plasma 0.84 mg/dL 0.70-1.20 [facility] Glucose [Mass/volume] in Serum or Plasma 209 mg/dL 70-140 H [facility] Potassium [Moles/volume] in Serum or Plasma 3.7 mmol/L 3.4-5.1 [facility] Hemolyzed Sodium [Moles/volume] in Serum or Plasma 140 mmol/L 136-145 [facility] Urea nitrogen [Mass/volume] in Serum or Plasma 24 mg/dL 6-20 H [facility] Anion gap 3 in Serum or Plasma 11 mmol/L 8-15 [facility] Osmolality of Serum or Plasma by calculation 301 mosm/kg 275-300 H [facility] Creatinine/Urea nitrogen [Mass Ratio] in Serum or Plasma 29 [facility] Calcium [Mass/volume] in Serum or Plasma 8.5 mg/dL 8.6-10.0 L [facility] Glomerular filtration rate/1.73 sq M pre dicted among non-blacks [Volume Rate/Area] in Serum or Plasma by Creatinine-based formula (MDRD) >6 0 [facility] Glomerular filtration rate/1.73 sq M pre dicted among blacks [Volume Rate/Area] in Serum or Plasma by Creatinine-based formula (MDRD) >60 [facility] ID Date Data Source [id number] 04/21/2021 02:07:00 AM EDT [facility] ([facility]) Name Value Range Interpretation Code Description Data Renetta rce(s) Supporting Document(s) Heparin unfractionated [Units/volume] in Platelet poor plasma by Chromogenic method 0.20 U/ml [facility] ID Date Data Source [id number] 04/21/2021 01:47:00 AM EDT [facility] ([facility] [place]) Name Value Range Interpretation Code Description Data Renetta rce(s) Supporting Document(s) Glucose [Mass/volume] in Capillary blood by Glucometer 324 mg/dL 70- 140 [facility] ([facility]) ID Date Data Source [id number] 04/21/2021 12:13:25 AM EDT [facility] Name Value Range Interpretation Code Description Data Renetta rce(s) Supporting Document(s) Glucose [Mass/volume] in Capillary blood by Glucometer 276 mg/dL 70- 140 H [facility] ID Date Data Source [id number] 04/20/2021 10:04:00 PM EDT [facility] ([facility] [place]) Name Value Range Interpretation Code Description Data Renetta rce(s) Supporting Document(s) Glucose [Mass/volume] in Capillary blood by Glucometer 298 mg/dL 70- 140 [facility] ([facility]) ID Date Data Source [id number] 04/20/2021 09:47:18 PM EDT [facility] Name Value Range Interpretation Code Description Data Renetta rce(s) Supporting Document(s) Glucose [Mass/volume] in Capillary blood by Glucometer 324 mg/dL 70- 140 H [facility] ID Date Data Source [id number] 04/20/2021 10:07:43 PM EDT [facility] Name Value Range Interpretation Code Description Data Renetta rce(s) Supporting Document(s) Heparin unfractionated [Units/volume] in Platelet poor plasma by Chromogenic method 0.20 U/ml [facility] ID Date Data Source [id number] 04/20/2021 09:19:00 PM EDT [facility] ([facility] [place]) Name Value Range Interpretation Code Description Data Renetta rce(s) Supporting Document(s) Troponin T High Sensitivity 22 ng/L [facility] ([facility]) ID Date Data Source [id number] 04/20/2021 07:15:00 PM EDT [facility] ([facility] [place]) Name Value Range Interpretation Code Description Data Renetta rce(s) Supporting Document(s) Heparin unfractionated [Units/volume] in Platelet poor plasma by Chromogenic method 0.22 U/ml [facility] ([facility]) ID Date Data Source [id number] 04/20/2021 06:51:00 PM EDT [facility] ([facility] [place]) Name Value Range Interpretation Code Description Data Renetta rce(s) Supporting Document(s) Glucose [Mass/volume] in Capillary blood by Glucometer 250 mg/dL 70- 140 [facility] ([facility]) ID Date Data Source [id number] 04/20/2021 06:04:13 PM EDT [facility] Name Value Range Interpretation Code Description Data Renetta rce(s) Supporting Document(s) Glucose [Mass/volume] in Capillary blood by Glucometer 298 mg/dL 70- 140 H [facility] ID Date Data Source [id number] 04/20/2021 05:19:08 PM EDT [facility] Name Value Range Interpretation Code Description Data Renetta rce(s) Supporting Document(s) Cardiactroponin T pnl SerPlHS 22 ng/L <22 H [facility] ID Date Data Source [id number] 04/20/2021 02:51:20 PM EDT [facility] Name Value Range Interpretation Code Description Data Renetta rce(s) Supporting Document(s) Glucose [Mass/volume] in Capillary blood by Glucometer 250 mg/dL 70- 140 H [facility] ID Date Data Source [id number] 04/20/2021 03:15:29 PM EDT [facility] Name Value Range Interpretation Code Description Data Renetta rce(s) Supporting Document(s) Heparin unfractionated [Units/volume] in Platelet poor plasma by Chromogenic method 0.22 U/ml [facility] ID Date Data Source [id number] 04/20/2021 02:12:00 PM EDT [facility] ([facility] [place]) Name Value Range Interpretation Code Description Data Renetta rce(s) Supporting Document(s) pH of Arterial blood 7.40 7.38-7.44 [facility] ([facility]) Oxygen [Partial pressure] in Arterial blood 143 95-100 [facility] ([facility]) Carbon dioxide [Partial pressure] in Arterial blood 39 mm[Hg] 35-40 [facility] ([facility]) Base excess in Arterial blood by calculation Laboratory test result [facility] ([facility]) Oxygen saturation in Arterial blood 99 % 94-100 [facility] ([facility]) Carbon dioxide, total [Moles/volume] in Arterial blood 25 mmol/L [facility] ([facility]) Oxygen/Inspired gas setting [Volume Fraction] Ventilator 0.40 [facility] ([facility]) ID Date Data Source [id number] 04/20/2021 02:03:00 PM EDT [facility] ([facility] [place]) Name Value Range Interpretation Code Description Data Renetta rce(s) Supporting Document(s) Glucose [Mass/volume] in Capillary blood by Glucometer 157 mg/dL 70- 140 [facility] ([facility]) ID Date Data Source [id number] 04/20/2021 01:46:00 PM EDT [facility] ([facility] [place]) Name Value Range Interpretation Code Description Data Renetta rce(s) Supporting Document(s) Borrelia burgdorferi IgM Ab [Presence] in Serum by Imm unoassay Laboratory test result [facility] ([facility]) Borrelia burgdorferi IgG Ab [Presence] in Serum by Imm unoassay Laboratory test result [facility] ([facility] [place]) ID Date Data Source [id number] 04/20/2021 12:54:00 PM EDT [facility] ([facility] [place]) Name Value Range Interpretation Code Description Data Renetta rce(s) Supporting Document(s) Troponin T High Sensitivity 33 ng/L [facility] ([facility]) ID Date Data Source [id number] 04/20/2021 11:50:00 AM EDT [facility] ([facility] [place]) Name Value Range Interpretation Code Description Data Renetta rce(s) Supporting Document(s) Lactate [Moles/volume] in Serum or Plasma 2.1 mmol/L 0.5-2.2 [facility] ([facility]) ID Date Data Source [id number] 04/20/2021 11:25:00 AM EDT [facility] ([facility] [place]) Name Value Range Interpretation Code Description Data Renetta rce(s) Supporting Document(s) INR in Platelet poor plasma by Coagulation assay 1.08 [facility] ([facility] Routine intensity oral anticoagulation I NR is typically 2.0-3.0. Target INR must be clinically individualized. Prothrombin time (PT) 13.6 s 11.6-14.0 [facility] ([facility]) ID Date Data Source [id number] 04/20/2021 11:25:00 AM EDT [facility] ([facility] [place]) Name Value Range Interpretation Code Description Data Renetta rce(s) Supporting Document(s) Heparin unfractionated [Units/volume] in Platelet poor plasma by Chromogenic method 0.25 U/ml [facility] ([facility]) ID Date Data Source [id number] 04/20/2021 10:48:04 AM EDT [facility] XR CHEST FRONTAL ONLY [id number] RESULTI nterpreted by:Wilma Marr MDINDICATION: Concern for pneumonia.TECHNIQUE: XR CHEST FRONTAL ONLY [id number], 04/20/2021 9:14 AM.COMPARISON: Chest radiograph dated 04/19/2021.FINDINGS: Endotracheal tube and retracted in the interval and now projects in appropriate position. The enteric tube is stable in position.The chest wall is unchanged in appearance.The mediastinal contours are stable.There is no evidence of pleural disease.Low lung volumes with bilateral atelectasis. 2 cardiac opacity could be atelectasis or pneumonia or aspiration. Clinical correlation is suggested.IMPRESSION: Low lung volumes with left retrocardiac opacity which could be atelectasis or pneumonia or aspiration in appropriate clinical context.This document has been electronically signed by AUSTIN Marr on 04/20/2021 10:45 AM Name Value Range Interpretation Code Description Data Renetta rce(s) Supporting Document(s) ID Date Data Source [id number] 04/20/2021 10:18:00 AM EDT [facility] ([facility]) Name Value Range Interpretation Code Description Data Renetta rce(s) Supporting Document(s) Glucose [Mass/volume] in Capillary blood by Glucometer 173 mg/dL 70- 140 [facility] ([facility]) ID Date Data Source [id number] 04/20/2021 10:03:19 AM [facility] Name Value Range Interpretation Code Description Data Renetta rce(s) Supporting Document(s) Glucose [Mass/volume] in Capillary blood by Glucometer 157 mg/dL 70- 140 H [facility] ID Date Data Source [id number] 04/20/2021 10:12:27 AM [facility] Name Value Range Interpretation Code Description Data Renetta rce(s) Supporting Document(s) pH of Arterial blood 7.40 7.38-7.44 [facility] Carbon dioxide [Partial pressure] in Arterial blood 39 mm[Hg] 35-40 [facility] Oxygen [Partial pressure] in Arterial blood 143 mmHg 95-100 H [facility] Oxygen saturation in Arterial blood 99 % 94-100 [facility] Base excess in Arterial blood by calculation [facility] Carbon dioxide, total [Moles/volume] in Arterial blood 25 mmol/L [facility] Oxygen/Inspired gas setting [Volume Fraction] Ventilator 0.40 [facility] ID Date Data Source [id number] 04/20/2021 09:46:43 AM [facility] Name Value Range Interpretation Code Description Data Renetta rce(s) Supporting Document(s) Borrelia burgdorferi IgG Ab [Presence] in Serum by Immunoassay Negative [facility] Borrelia burgdorferi IgM Ab [Presence] in Serum by Immunoassay Negative [facility] ID Date Data Source [id number] [facility] Code Description Data Renetta rce(s) Supporting Document(s) Cardiactroponin T pnl SerPlHS 33 ng/L <22 H [facility] ID Date Data Source [id number] 04/20/2021 07:50:41 AM EDT [facility] Name Value Range Interpretation Code Description Data Renetta rce(s) Supporting Document(s) Lactate [Moles/volume] in Serum or Plasma 2.1 mmol/l 0.5-2.2 [facility] ID Date Data Source [id number] 04/20/2021 07:25:26 AM [facility] Name Value Range Interpretation Code Description Data Renetta rce(s) Supporting Document(s) Prothrombin time (PT) 13.6 s 11.6-14.0 [facility] INR in Platelet poor plasma by Coagulation assay 1.08 [facility] Routine intensity oral anticoagulation I NR is typically 2.0-3.0. Target INR must be clinically individualized. ID Date Data Source [id number] 04/20/2021 07:25:26 AM [facility] Name Value Range Interpretation Code Description Data Renetta rce(s) Supporting Document(s) Heparin unfractionated [Units/volume] in Platelet poor plasma by Chromogenic method 0.25 U/ml [facility] ID Date Data Source [id number] 04/20/2021 06:18:30 AM [facility] Value Range Interpretation Code Description Data Renetta rce(s) Supporting Document(s) Glucose [Mass/volume] in Capillary blood by Glucometer 173 mg/dL 70- 140 H [facility] ID Date Data Source [id number] 04/20/2021 05:54:00 AM EDT [facility] ([facility]) Name Value Range Interpretation Code Description Data Renetta rce(s) Supporting Document(s) Glucose [Mass/volume] in Capillary blood by Glucometer 226 mg/dL 70- 140 [facility] ([facility]) ID Date Data Source [id number] 04/20/2021 04:57:00 AM EDT [facility] ([facility] [place]) Name Value Range Interpretation Code Description Data Renetta rce(s) Supporting Document(s) Bicarbonate [Moles/volume] in Serum 22 mmol/L 22-29 [facility] ([facility]) Glucose [Mass/volume] in Serum or Plasma 223 mg/dL 70-140 [facility] ([facility]) Chloride [Moles/volume] in Serum or Plasma 105 mmol/L 98-107 [facility] ([facility]) Creatinine [Mass/volume] in Serum or Plasma 1.15 mg/dL 0.70-1.20 [facility] ([facility]) Sodium [Moles/volume] in Serum or Plasma 137 mmol/L 136-145 [facility] ([facility]) Potassium [Moles/volume] in Serum or Plasma 4.2 mmol/L 3.4-5.1 [facility] ([facility]) Osmolality of Serum or Plasma by calculation 297 mosm/kg 275.0-300.0 [facility] ([facility]) Urea nitrogen [Mass/volume] in Serum or Plasma 29 mg/dL 6-20 [facility] ([facility]) Anion gap in Serum or Plasma 10 mmol/L 8-15 [facility] ([facility]) Creatinine/Urea nitrogen [Mass Ratio] in Serum or Plasma 25 [facility] ([facility]) Calcium [Mass/volume] in Serum or Plasma 8.1 mg/dL 8.6-10.0 [facility] ([facility]) Glomerular filtration rate/1.73 sq M pre dicted among non-blacks [Volume Rate/Area] in Serum or Plasma by Creatinine-based formula (MDRD) 68 [facility] ([facility]) Glomerular filtration rate/1.73 sq M pre dicted among blacks [Volume Rate/Area] in Serum or Plasma by Creatinine-based formula (MDRD) 79 [facility] ([facility]) ID Date Data Source [id number] 04/20/2021 04:54:00 AM EDT [facility] ([facility] [place]) Name Value Range Interpretation Code Description Data Renetta rce(s) Supporting Document(s) Lactate [Moles/volume] in Serum or Plasma 2.4 mmol/L 0.5-2.2 [facility] ([facility]) ID Date Data Source [id number] 04/20/2021 04:36:00 AM EDT [facility] Name Value Range Interpretation Code Description Data Renetta rce(s) Supporting Document(s) Leukocytes [#/volume] in Blood by Automated count 13.3 10*3/uL 4.00-1 0.00 [facility] ([facility]) Hemoglobin [Mass/volume] in Blood 13.9 g/dL 13.5-18.0 [facility] ([facility]) Erythrocytes [#/volume] in Blood by Automated count 4.55 10*6/uL 4.60 -6.10 [facility] ([facility]) Erythrocyte mean corpuscular volume [Entitic volume] by Auto mated count 89.1 fL 80.0-96.0 [facility] ([facility]) Erythrocyte mean corpuscular hemoglobin [Entitic mass] by Automated count 30.6 pg 27.0-33.0 [facility] ([facility]) Hematocrit [Volume Fraction] of Blood by Automated count 40.5 % 4 1.0-53.0 [facility] ([facility]) Platelets [#/volume] in Blood by Automated count 195 10*3/uL 150-400 [facility] ([facility]) Erythrocyte distribution width [Ratio] by Automated count 13.8 % 11.5-14.5 [facility] ([facility]) Erythrocyte mean corpuscular hemoglobin concentration [Mass/volume] by Automated count 34.3 g/dL 32-36 [facility] ([facility]) Differential cell count method - Blood Laboratory test result [facility] ([facility]) Lymphocytes/100 leukocytes in Blood by Automated count 11 % [facility] ([facility]) Neutrophils/100 leukocytes in Blood by Automated count 82 % [facility] ([facility]) Monocytes/100 leukocytes in Blood by Automated count 7 % [facility] ([facility]) Basophils/100 leukocytes in Blood by Automated count 0 % [facility] ([facility]) Eosinophils/100 leukocytes in Blood by Automated count 0 % [facility] ([facility]) Neutrophils [#/volume] in Blood by Automated count 10.83 10*3/uL 1.80 -7.00 [facility] ([facility]) Monocytes [#/volume] in Blood by Automated count 0.94 10*3/uL 0.00-0. 80 [facility] ([facility]) Lymphocytes [#/volume] in Blood by Automated count 1.50 10*3/uL 1.20- 4.00 [facility] ([facility]) Basophils [#/volume] in Blood by Automated count 0.03 10*3/uL 0.00-0. 20 [facility] ([facility]) Eosinophils [#/volume] in Blood by Automated count 0.01 10*3/uL 0.00- 0.50 [facility] ([facility]) Nucleated erythrocytes/100 leukocytes [Ratio] in Blood by Automated count 0 /100{WBCs} 0-0 [facility] ([facility]) ID Date Data Source [id number] 04/20/2021 02:31:00 AM EDT [facility] ([facility] [place]) Name Value Range Interpretation Code Description Data Renetta rce(s) Supporting Document(s) Heparin unfractionated [Units/volume] in Platelet poor plasma by Chromogenic method 0.31 U/ml [facility] ID Date Data Source [id number] 04/20/2021 01:54:13 AM EDT [facility] Name Value Range Interpretation Code Description Data Renetta rce(s) Supporting Document(s) Glucose [Mass/volume] in Capillary blood by Glucometer 226 mg/dL 70- 140 [facility] ID Date Data Source [id number] 04/20/2021 01:38:00 AM EDT [facility] ([facility] [place]) Name Value Range Interpretation Code Description Data Renetta rce(s) Supporting Document(s) Glucose [Mass/volume] in Capillary blood by Glucometer 229 mg/dL 70- 140 [facility] ([facility]) ID Date Data Source [id number] 04/20/2021 01:22:00 AM EDT [facility] ([facility] [place]) Name Value Range Interpretation Code Description Data Renetta rce(s) Supporting Document(s) pH of Arterial blood 7.36 7.38-7.44 [facility] ([facility]) Carbon dioxide [Partial pressure] in Arterial blood 42 mm[Hg] 35-40 [facility] ([facility]) Oxygen [Partial pressure] in Arterial blood 92 95-100 [facility] ([facility]) Oxygen saturation in Arterial blood 98 % 94-100 [facility] ([facility]) Base excess in Arterial blood by calculation Laboratory test result [facility] ([facility]) Carbon dioxide, total [Moles/volume] in Arterial blood 25 mmol/L [facility] ([facility]) Oxygen/Inspired gas setting [Volume Fraction] Ventilator 0.40 [facility] ([facility]) ID Date Data Source [id number] 04/20/2021 12:36:44 AM [facility] Name Value Range Interpretation Code Description Data Renetta rce(s) Supporting Document(s) Leukocytes [#/volume] in Blood by Automated count 13.3 10*3/uL 4-10 [facility] Erythrocytes [#/volume] in Blood by Automated count 4.55 10*6/uL 4.6- 6.1 L [facility] Hemoglobin [Mass/volume] in Blood 13.9 g/dL 13.5-18 [facility] Hematocrit [Volume Fraction] of Blood by Automated count 40.5 % 4 1-53 L [facility] Erythrocyte mean corpuscular volume [Entitic volume] by Auto mated count 89.1 fL 80-96 [facility] Erythrocyte mean corpuscular hemoglobin [Entitic mass] by Automated count 30.6 pg 27-33 [facility] Erythrocyte mean corpuscular hemoglobin concentration [Mass/volume] by Automated count 34.3 g/dL 32.0-36.[facility] width [Ratio] by Automated count 13.8 % 11.5-14.5 [facility] Platelets [#/volume] in Blood by Automated count 195 10*3/uL 150-400 [facility] Differential cell count method - Blood [facility] Neutrophils/100 leukocytes in Blood by Automated count 82 % [facility] Lymphocytes/100 leukocytes in Blood by Automated count 11 % [facility] Monocytes/100 leukocytes in Blood by Automated count 7 % [facility] Eosinophils/100 leukocytes in Blood by Automated count 0 % [facility] Basophils/100 leukocytes in Blood by Automated count 0 % [facility] Neutrophils [#/volume] in Blood by Automated count 10.83 10*3/uL 1.8- 7.0 H [facility] Lymphocytes [#/volume] in Blood by Automated count 1.50 10*3/uL 1.2-4 .0 [facility] Monocytes [#/volume] in Blood by Automated count 0.94 10*3/uL 0-0.8 [facility] Eosinophils [#/volume] in Blood by Automated count 0.01 10*3/uL 0-0.5 [facility] Basophils [#/volume] in Blood by Automated count 0.03 10*3/uL 0-0.2 [facility] Nucleated erythrocytes/100 leukocytes [Ratio] in Blood by Automated count 0 /100{WBCs} 0-0 [facility] ID Date Data Source [id number] 04/20/2021 12:57:42 AM EDT [facility] Name Value Range Interpretation Code Description Data Renetta rce(s) Supporting Document(s) Bicarbonate [Moles/volume] in Serum 22 mmol/L 22-29 [facility] Chloride [Moles/volume] in Serum or Plasma 105 mmol/L 98-107 [facility] Creatinine [Mass/volume] in Serum or Plasma 1.15 mg/dL 0.70-1.20 [facility] Glucose [Mass/volume] in Serum or Plasma 223 mg/dL 70-140 H [facility] Potassium [Moles/volume] in Serum or Plasma 4.2 mmol/L 3.4-5.1 [facility] Sodium [Moles/volume] in Serum or Plasma 137 mmol/L 136-145 [facility] Urea nitrogen [Mass/volume] in Serum or Plasma 29 mg/dL 6-20 [facility] Anion gap 3 in Serum or Plasma 10 mmol/L 8-15 [facility] Osmolality of Serum or Plasma by calculation 297 mosm/kg 275-300 [facility] Creatinine/Urea nitrogen [Mass Ratio] in Serum or Plasma 25 [facility] Calcium [Mass/volume] in Serum or Plasma 8.1 mg/dL 8.6-10.0 L [facility] Glomerular filtration rate/1.73 sq M pre dicted among non-blacks [Volume Rate/Area] in Serum or Plasma by Creatinine-based formula (MDRD) 68 mL/min/1.73m2 >60 [facility] Glomerular filtration rate/1.73 sq M pre dicted among blacks [Volume Rate/Area] in Serum or Plasma by Creatinine-based formula (MDRD) 79 mL/min/1.73m2 >60 [facility] ID Date Data Source [id number] 04/20/2021 12:54:56 AM EDT [facility] Name Value Range Interpretation Code Description Data Renetta rce(s) Supporting Document(s) Lactate [Moles/volume] in Serum or Plasma 2.4 mmol/l 0.5-2.2 H [facility] ID Date Data Source [id number] 04/19/2021 10:24:00 PM EDT [facility] ([facility] [place]) Name Value Range Interpretation Code Description Data Renetta rce(s) Supporting Document(s) Lactate [Moles/volume] in Serum or Plasma 3.5 mmol/L 0.5-2.2 [facility] ([facility]) ID Date Data Source [id number] 04/19/2021 10:21:00 PM EDT [facility] ([facility] [place]) Name Value Range Interpretation Code Description Data Renetta rce(s) Supporting Document(s) Heparin unfractionated [Units/volume] in Platelet poor plasma by Chromogenic method 0.43 U/ml [facility] ([facility]) ID Date Data Source [id number] 04/19/2021 09:59:00 PM EDT [facility] ([facility] [place]) Name Value Range Interpretation Code Description Data Renetta rce(s) Supporting Document(s) Glucose [Mass/volume] in Capillary blood by Glucometer 260 mg/dL 70- 140 [facility] ([facility]) ID Date Data Source [id number] 04/19/2021 10:31:07 PM EDT [facility] Value Range Interpretation Code Description Data Renetta rce(s) Supporting Document(s) Heparin unfractionated [Units/volume] in Platelet poor plasma by Chromogenic method 0.31 U/ml [facility] ID Date Data Source [id number] 04/19/2021 09:38:07 PM EDT [facility] Name Value Range Interpretation Code Description Data Renetta rce(s) Supporting Document(s) Glucose [Mass/volume] in Capillary blood by Glucometer 229 mg/dL 70- 140 H [facility] ID Date Data Source [id number] 04/19/2021 09:05:00 PM EDT [facility] Name Value Range Interpretation Code Description Data Renetta rce(s) Supporting Document(s) Laboratory test finding (navigational concept) Laboratory test result [facility] ([facility]) Test performed using [employer] Simplex[employer] C ovid-19 Direct Assay. This test is only for use under Food and Drug Administration's Emergency Use Authorization. Additional information is available on the following Fda websites for healthcare providers and patients. https://www.[employer].gov/media/552992/download, https://www.[employer].gov/[place]kin/087347/download Specimen source [Identifier] of Unspecified specimen Laboratory cosme t result [facility] ([facility]) Sars CoV-2 Laboratory test result [facility] ([facility]) First Covid-19 Test? 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 Laboratory test result [facility] ([facility]) Symptomatic for Covid-19 as defined by CDC? Laboratory test result [facility] ([facility]) When did you start to experience these symptoms [Date and time] [PhenX] Laboratory test result [facility] ([facility]) Patient was hospitalized because of this condition Laboratory test re sult [facility] ([facility]) Admitted to [facility] for Covid-19? Laboratory test result [facility] ([facility]) ? Laboratory test result [facility] ([facility]) Resident in a congregate (group) care setting? Laboratory test result [facility] ([facility]) ID Date Data Source [id number] 04/19/2021 09:22:22 PM EDT [facility] Name Value Range Interpretation Code Description Data Renetta rce(s) Supporting Document(s) pH of Arterial blood 7.36 7.38-7.44 L [facility] Carbon dioxide [Partial pressure] in Arterial blood 42 mm[Hg] 35-40 H [facility] Oxygen [Partial pressure] in Arterial blood 92 mmHg 95-100 L [facility] Oxygen saturation in Arterial blood 98 % 94-100 [facility] Base excess in Arterial blood by calculation [facility] Carbon dioxide, total [Moles/volume] in Arterial blood 25 mmol/L [facility] Oxygen/Inspired gas setting [Volume Fraction] Ventilator 0.40 [facility] ID Date Data Source [id number] 04/19/2021 08:16:00 PM EDT [facility] ([facility]) Name Value Range Interpretation Code Description Data Renetta rce(s) Supporting Document(s) Carbon dioxide [Partial pressure] in Arterial blood 41 mm[Hg] 35-40 [facility] ([facility]) pH of Arterial blood 7.34 7.38-7.44 [facility] ([facility]) Oxygen [Partial pressure] in Arterial blood 109 95-100 [facility] ([facility]) Oxygen saturation in Arterial blood 98 % 94-100 [facility] ([facility]) Base excess in Arterial blood by calculation Laboratory test result [facility] ([facility]) Carbon dioxide, total [Moles/volume] in Arterial blood 23 mmol/L [facility] ([facility]) Oxygen/Inspired gas setting [Volume Fraction] Ventilator 0.40 [facility] ([facility]) ID Date Data Source [id number] 04/19/2021 07:18:00 PM EDT [facility] ([facility] [place]) Name Value Range Interpretation Code Description Data Renetta rce(s) Supporting Document(s) Heparin unfractionated [Units/volume] in Platelet poor plasma by Chromogenic method 0.55 U/ml [facility] ([facility]) ID Date Data Source [id number] 04/19/2021 06:18:00 PM EDT [facility] ([facility] [place]) Name Value Range Interpretation Code Description Data Renetta rce(s) Supporting Document(s) Glucose [Mass/volume] in Capillary blood by Glucometer 278 mg/dL 70- 140 [facility] ([facility]) ID Date Data Source [id number] 04/19/2021 06:24:24 PM EDT [facility] Name Value Range Interpretation Code Description Data Renetta rce(s) Supporting Document(s) Lactate [Moles/volume] in Serum or Plasma 3.5 mmol/l 0.5-2.2 H [facility] ID Date Data Source [id number] 04/19/2021 06:21:46 PM EDT [facility] Name Value Range Interpretation Code Description Data Renetta rce(s) Supporting Document(s) Heparin unfractionated [Units/volume] in Platelet poor plasma by Chromogenic method 0.43 U/ml [facility] ID Date Data Source [id number] 04/19/2021 05:59:26 PM EDT [facility] Name Value Range Interpretation Code Description Data Renetta rce(s) Supporting Document(s) Glucose [Mass/volume] in Capillary blood by Glucometer 260 mg/dL 70- 140 H [facility] ID Date Data Source [id number] 04/19/2021 04:37:00 PM EDT [facility] ([facility]) Name Value Range Interpretation Code Description Data Renetta rce(s) Supporting Document(s) Amphetamine [Presence] in Urine by Screen method Laboratory test resu lt [facility] ([facility]) Benzoylecgonine [Presence] in Urine by Screen method Laboratory cosme t result [facility] ([facility]) Cannabinoids [Presence] in Urine by Screen method Laboratory test res ult [facility] ([facility]) Benzodiazepines [Presence] in Urine by Screen method Laboratory cosme t result [facility] ([facility]) Methadone [Presence] in Urine by Screen method Laboratory test result [facility] ([facility]) Opiates [Presence] in Urine by Screen method Laboratory test res ult Abnormal (applies to non-numeric results) [facility] ([facility]) (NOTE) Positive results are presumptive and unconfirmed;confirmatory testing can be ordered at the [facility] at [phone] or [facility] at [phone] within 5 days of collection. Oxycodone [Presence] in Urine by Screen method Laboratory test result [facility] ([facility]) Fentanyl+Norfentanyl [Presence] in Urine by Screen met hod Laboratory test result [facility] ([facility]) Service comment Laboratory test result [facility] ([facility]) Results below the indicated cutoff (ng/m L), are reported as "Negative." Note: for medical purposes only; not valid for legal or employment testing. ID Date Data Source [id number] 04/19/2021 04:35:00 PM EDT [facility] ([facility] [place]) Name Value Range Interpretation Code Description Data Renetta rce(s) Supporting Document(s) Erythrocyte sedimentation rate Laboratory test result [facility] ([facility]) ID Date Data Source [id number] 04/19/2021 04:32:00 PM EDT [facility] ([facility] [place]) Name Value Range Interpretation Code Description Data Renetta rce(s) Supporting Document(s) Glucose [Mass/volume] in Capillary blood by Glucometer 329 mg/dL 70- 140 [facility] ([facility]) ID Date Data Source [id number] 04/19/2021 04:29:00 PM EDT [facility] ([facility] [place]) Name Value Range Interpretation Code Description Data Renetta rce(s) Supporting Document(s) Hemoglobin A1c/Hemoglobin.total in Blood by HPLC 8.3 % 4.0-6.0 [facility] ([facility]) (NOTE) <5.7% Average risk of diabetes(AD A) 5.7-6.4% Increased risk of diabetes(ADA) >/= 6.5% Diagnostic for diabetes(ADA) Glucose mean value [Mass/volume] in Blood Estimated fr om glycated hemoglobin 192 mg/dL [facility] ([facility]) ID Date Data Source [id number] 04/19/2021 04:16:30 PM EDT [facility] Name Value Range Interpretation Code Description Data Renetta rce(s) Supporting Document(s) pH of Arterial blood 7.34 7.38-7.44 L [facility] Carbon dioxide [Partial pressure] in Arterial blood 41 mm[Hg] 35-40 H [facility] Oxygen [Partial pressure] in Arterial blood 109 mmHg 95-100 H [facility] Oxygen saturation in Arterial blood 98 % 94-100 [facility] Base excess in Arterial blood by calculation [facility] Carbon dioxide, total [Moles/volume] in Arterial blood 23 mmol/L [facility] Oxygen/Inspired gas setting [Volume Fraction] Ventilator 0.40 [facility] ID Date Data Source [id number] 04/19/2021 02:58:00 PM EDT [facility] ([facility] [place]) Name Value Range Interpretation Code Description Data Renetta rce(s) Supporting Document(s) Leukocytes [#/volume] in Blood by Automated count 13.6 10*3/uL 4.00-1 0.00 [facility] ([facility]) Hemoglobin [Mass/volume] in Blood 15.6 g/dL 13.5-18.0 [facility] ([facility]) Erythrocytes [#/volume] in Blood by Automated count 5.00 10*6/uL 4.60 -6.10 [facility] ([facility]) Erythrocyte mean corpuscular volume [Entitic volume] by Auto mated count 89.2 fL 80.0-96.0 [facility] ([facility]) Hematocrit [Volume Fraction] of Blood by Automated count 44.6 % 4 1.0-53.0 [facility] ([facility]) Erythrocyte mean corpuscular hemoglobin [Entitic mass] by Automated count 31.2 pg 27.0-33.0 [facility] ([facility]) Erythrocyte mean corpuscular hemoglobin concentration [Mass/volume] by Automated count 35.0 g/dL 32-36 [facility] ([facility]) Erythrocyte distribution width [Ratio] by Automated count 13.9 % 11.5-14.5 [facility] ([facility]) Platelets [#/volume] in Blood by Automated count 195 10*3/uL 150-400 [facility] ([facility]) Neutrophils/100 leukocytes in Blood by Automated count 92 % [facility] ([facility]) Differential cell count method - Blood Laboratory test result [facility] ([facility]) Monocytes/100 leukocytes in Blood by Automated count 2 % [facility] ([facility]) Lymphocytes/100 leukocytes in Blood by Automated count 6 % [facility] ([facility]) Basophils/100 leukocytes in Blood by Automated count 0 % [facility] ([facility]) Neutrophils [#/volume] in Blood by Automated count 12.46 10*3/uL 1.80 -7.00 [facility] ([facility]) Eosinophils/100 leukocytes in Blood by Automated count 0 % [facility] ([facility]) Monocytes [#/volume] in Blood by Automated count 0.26 10*3/uL 0.00-0. 80 [facility] ([facility]) Eosinophils [#/volume] in Blood by Automated count 0.01 10*3/uL 0.00- 0.50 [facility] ([facility]) Lymphocytes [#/volume] in Blood by Automated count 0.77 10*3/uL 1.20- 4.00 [facility] ([facility]) Nucleated erythrocytes/100 leukocytes [Ratio] in Blood by Automated count 0 /100{WBCs} 0-0 [facility] ([facility] Basophils [#/volume] in Blood by Automated count 0.05 10*3/uL 0.00-0. 20 [facility] ([facility]) ID Date Data Source [id number] 04/19/2021 02:29:00 PM EDT [facility] ([facility] [place]) Name Value Range Interpretation Code Description Data Renetta rce(s) Supporting Document(s) Triglyceride [Mass/volume] in Serum or Plasma 153 mg/dL [facility] ([facility]) Cholesterol [Mass/volume] in Serum or Plasma 177 mg/dL [facility] ([facility]) Cholesterol in HDL [Mass/volume] in Serum or Plasma 43 mg/dL [facility] ([facility]) Cholesterol in LDL [Mass/volume] in Serum or Plasma by calculati on 104 mg/dL [facility] ([facility]) Cholesterol in VLDL [Mass/volume] in Serum or Plasma by calc ulation 31 mg/dL 16-42 [facility] ([facility]) Cholesterol non HDL [Mass/volume] in Serum or Plasma 134 mg/dL [facility] ([facility]) ID Date Data Source [id number] 04/19/2021 02:29:00 PM EDT [facility] ([facility] [place]) Name Value Range Interpretation Code Description Data Renetta rce(s) Supporting Document(s) Thyrotropin [Units/volume] in Serum or Plasma 5.500 u[IU]/mL 0.27-4.2 0 [facility] ([facility]) ID Date Data Source [id number] 04/19/2021 02:29:00 PM EDT [facility] ([facility] [place]) Name Value Range Interpretation Code Description Data Renetta rce(s) Supporting Document(s) Thyroxine (T4) free [Mass/volume] in Serum or Plasma 1.09 ng/dL 0.93- 1.70 [facility] ([facility]) ID Date Data Source [id number] 04/19/2021 02:29:00 PM EDT [facility] ([facility] [facility] [place]) Name Value Range Interpretation Code Description Data Renetta rce(s) Supporting Document(s) C reactive protein [Mass/volume] in Serum or Plasma Laboratory test result [facility] ([facility] [place]) ID Date Data Source [id number] 04/19/2021 02:29:00 PM EDT [facility] ([facility] [place]) Name Value Range Interpretation Code Description Data Renetta rce(s) Supporting Document(s) Troponin T High Sensitivity 30 ng/L NE [facility] ([facility] [place]) ID Date Data Source [id number] 04/19/2021 02:29:00 PM EDT [facility] ([facility] [place]) Name Value Range Interpretation Code Description Data Renetta rce(s) Supporting Document(s) Bilirubin.total [Mass/volume] in Serum or Plasma 0.7 mg/dL [facility] ([facility]) Albumin [Mass/volume] in Serum or Plasma by Bromocresol green (BCG) dye binding method 4.3 g/dL 3.5-5.2 [facility] ([facility]) Chloride [Moles/volume] in Serum or Plasma 100 mmol/L 98-107 [facility] ([facility]) Calcium [Mass/volume] in Serum or Plasma 8.3 mg/dL 8.6-10.0 [facility] ([facility]) Glucose [Mass/volume] in Serum or Plasma 365 mg/dL 70-140 [facility] ([facility]) Creatinine [Mass/volume] in Serum or Plasma 1.35 mg/dL 0.70-1.20 [facility] ([facility]) Alkaline phosphatase [Enzymatic activity/volume] in Serum or Plasma 110 U/L 40-129 [facility] ([facility]) Potassium [Moles/volume] in Serum or Plasma 4.5 mmol/L 3.4-5.1 [facility] ([facility]) Hemolyzed Protein [Mass/volume] in Serum or Plasma 6.6 g/dL 6.4-8.3 [facility] ([facility]) Aspartate aminotransferase [Enzymatic activity/volume] in Serum or Plasma 17 U/L [facility] ([facility]) Hemolyzed Sodium [Moles/volume] in Serum or Plasma 136 mmol/L 136-145 [facility] ([facility]) Urea nitrogen [Mass/volume] in Serum or Plasma 23 mg/dL 6-20 [facility] ([facility]) Osmolality of Serum or Plasma by calculation 300 mosm/kg 275.0-300.0 [facility] ([facility]) Bicarbonate [Moles/volume] in Serum 19 mmol/L 22-29 [facility] ([facility]) Creatinine/Urea nitrogen [Mass Ratio] in Serum or Plasma 17 [facility] ([facility]) Glomerular filtration rate/1.73 sq M pre dicted among non-blacks [Volume Rate/Area] in Serum or Plasma by Creatinine-based formula (MDRD) 56 [facility] ([facility]) Alanine aminotransferase [Enzymatic activity/volume] in Seru m or Plasma 20 U/L [facility] ([facility]) Anion gap in Serum or Plasma 17 mmol/L 8-15 [facility] ([facility]) Glomerular filtration rate/1.73 sq M pre dicted among blacks [Volume Rate/Area] in Serum or Plasma by Creatinine-based formula (MDRD) 65 [facility] ([facility]) ID Date Data Source [id number] 04/24/2021 11:34:32 AM EDT [facility] Service Cmnt XXX-Imp : L HANDMicroorgani sm XXX Cult : No growth 5 days Name Value Range Interpretation Code Description Data Renetta rce(s) Supporting Document(s) ID Date Data Source [id number] 04/19/2021 03:18:09 PM EDT [facility] Name Value Range Interpretation Code Description Data Renetta rce(s) Supporting Document(s) Heparin unfractionated [Units/volume] in Platelet poor plasma by Chromogenic method 0.55 U/ml [facility] ID Date Data Source [id number] 04/19/2021 02:14:00 PM EDT [facility] ([facility]) Name Value Range Interpretation Code Description Data Renetta rce(s) Supporting Document(s) pH of Arterial blood 7.33 7.38-7.44 [facility] ([facility]) Oxygen [Partial pressure] in Arterial blood 117 95-100 [facility] Carbon dioxide [Partial pressure] in Arterial blood 42 mm[Hg] 35-40 [facility] Carbon dioxide, total [Moles/volume] in Arterial blood 23 mmol/L [facility] ([facility]) Oxygen saturation in Arterial blood 99 % 94-100 [facility] Base excess in Arterial blood by calculation Laboratory test result [facility] ([facility]) Oxygen/Inspired gas setting [Volume Fraction] Ventilator 0.60 [facility] ([facility]) ID Date Data Source [id number] 04/24/2021 11:34:32 AM EDT [facility] XXX-Imp : R HANDMicroorgani sm XXX Cult : No growth 5 days Name Value Range Interpretation Code Description Data Renetta rce(s) Supporting Document(s) ID Date Data Source [id number] 04/19/2021 02:09:00 PM EDT [facility] ([facility] [place]) Name Value Range Interpretation Code Description Data Renetta rce(s) Supporting Document(s) Heparin unfractionated [Units/volume] in Platelet poor plasma by Chromogenic method 0.60 U/ml [facility] ([facility]) ID Date Data Source [id number] 04/19/2021 02:09:00 PM EDT [facility] ([facility] [place]) Name Value Range Interpretation Code Description Data Renetta rce(s) Supporting Document(s) Prothrombin time (PT) 13.6 s 11.6-14.0 [facility] ([facility]) INR in Platelet poor plasma by Coagulation assay 1.09 [facility] ([facility]) Routine intensity oral anticoagulation I NR is typically 2.0-3.0. Target INR must be clinically individualized. ID Date Data Source [id number] 04/19/2021 02:18:13 PM EDT [facility] Name Value Range Interpretation Code Description Data Renetta rce(s) Supporting Document(s) Glucose [Mass/volume] in Capillary blood by Glucometer 278 mg/dL 70- 140 [facility] ID Date Data Source [id number] 04/19/2021 12:48:52 PM EDT [facility] Name Value Range Interpretation Code Description Data Renetta rce(s) Supporting Document(s) History and Physical [facility] DIXBDb9lJnZLOnBw11/UQDiwMQFrr1CnKHvtETb9RLryVTFmN5HqDBA4bT9xVXZ7RVaOEdGoHjJlJYQ6 lbm [file] ZG++I3BoUsLn2IEO5M+D73fJ+xWzyHj7N3CtVV [file] ICAgICAgICAgICAgICAgICAgICAgICAgICAgICAgIC AgICAgICAgICAgICAgICAgICAgICAgICAgICAgDQogICAgICAgICAgICAgICAgICAgICAgICAgICAgIC AgICAgICAgICAgICAgICAgICAgICAgICAgICAgICAgICAgICAgICAgICAgICAgICAgICAgICAgICAgIC AgICAgICAgICAgDQogICAgICAgICAgICAgICAgICAg ICAgICAgICAgICAgICAgICAgICAgICAgICAgICAgICAgICAgICAgICAgICAgICAgICAgICAgICAgICAg ICAgICAgICAgICAgICAgICAgICAgDQogICAgICAgICAgICAgICAgICAgICAgICAgICAgICAgICAgICAg ICAgICAgICAgICAgICAgICAgICAgICAgICAgICAgIC AgICAgICAgICAgICAgICAgICAgICAgICAgICAgICAgDQogICAgICAgICAgICAgICAgICAgICAgICAgIC AgICAgICAgICAgICAgICAgICAgICAgICAgICAgICAgICAgICAgICAgICAgICAgICAgICAgICAgICAgIC AgICAgICAgICAgICAgDQogICAgICAgICAgICAgICAg ICAgICAgICAgICAgICAgICAgICAgICAgICAgICAgICAgICAgICAgICAgICAgICAgICAgICAgICAgICAg ICAgICAgICAgICAgICAgICAgICAgICAgDQogICAgICAgICAgICAgICAgICAgICAgICAgICAgICAgICAg ICAgICAgICAgICAgICAgICAgICAgICAgICAgICAgIC AgICAgICAgICAgICAgICAgICAgICAgICAgICAgICAgICAgDQogICAgICAgICAgICAgICAgICAgICAgIC AgICAgICAgICAgICAgICAgICAgICAgICAgICAgICAgICAgICAgICAgICAgICAgICAgICAgICAgICAgIC AgICAgICAgICAgICAgICAgDQogICAgICAgICAgICAg ICAgICAgICAgICAgICAgICAgICAgICAgICAgICAgICAgICAgICAgICAgICAgICAgICAgICAgICAgICAg ICAgICAgICAgICAgICAgICAgICAgICAgICAgDQogICAgICAgICAgICAgICAgICAgICAgICAgICAgICAg ICAgICAgICAgICAgICAgICAgICAgICAgICAgICAgIC CtOPMyNPRcPBNpIJLhNMRjPTIzYBFkZBIoQAQgPTHhDBQwEDYlKLs4Q6mvIKPdESTlKD0mPEr0Gv3+DQ eMCxVvFFX6kcIooB1RAT8qz1MoWJhtZEDzj6MrUCm7HY0YWLXxNZqyHH7ZTLcilv7XKBRhOGAwqQELx6 uzBaAxYHD2EGHlMqmtMJ9KLWXyV7rjlzKvDWWrQBNG OSjxZRKIRAywNARYRLTqBEPzNlJdGrKyQVItHQUyABZQKDN8MXWqDkXzDVScKTPvMB9BYLCtL721tuRy PB6KPp1CRjLfZS8zyu9UYQFeZPHnZjzQTsp8PChbXX8MeKYgcRA5HiUiOFKVIeQaT5siq5PmTXMjSOPY JHfhIB1Ap6MklOXiDMw+Su8OJS4zs7EuWPg2IrLzQS 4ojz9OECtOGpTwI8BhfJbkVJfuABIxsATTgRopNBUXcyavikssENOrQEPdETAeXCBdMxGpFGNdThszTW ZQIKuZCpBhU6Kcg7KjQjI6ETCiPsTiGHgaCJOjTjX6AK33nMkmQM6CAEElKIHeHB66RRZhSVJiFa6QIs 1GLgEsGQ6hyq1TYVVvIVBxOqaHOxb5PPyoJZ1VnGOk S3KhiCObm5vBKcZhY3FLWALqHVGnQz9YBJDcGuXtVBNqHUajQL7dJSXoIYYCvTlhjtA4FH0HJZ4xiwUf MI1OKxHgOh9pYd2YBzPlR9OgZ1YvANThILOTJOalWZ6KARspVC9qCV3Bu5RZuADqnE6hjy7AVPTeNJNl Jlppdf6LZfqqQ5W9nEoeZAVkTDMcXATIYKbfAR3ZEK ShZGF1UKO1KADfHDJNEvGxQ48xZN8UQ1Skq94rSoH8PRMdVxKwGAooQA90hEnssmQgtVIpfTguOW0HRj 4+GKllovVhXfjKVewoCKPPMfHeWGEPZdNjSJSuSJWdRVXxPrW6HcKoAe6XHVQiMIDbXGKgJjWgYHHpRU TrQHviTRKmAKN3RGB8ARFeWMEpNR1LXdTeMOOpAKm6 RGZkHFRgITAjcy7MRBCrOUQjIRD8IhLcTCYoCQKcQFtdFNQwTKV9ClKyHWLrMIXeMY5NQoWhDQGoPSN4 GSChFFUmPSOqky5BLPMzRALsMNI4EJXqHQQnSMAfGTniAPWhHQO8NYB7YLDhAWXuTL8KPxTuSYVhOJY4 GBcvXGMvEDTreb4XYKVyUKRlRdGuMnXxRRIrAYHvXA ofUBDlFOH1Rfw8LKYsAIQnIC8ZRqSmKDQiVRF6YFJtRXNtFWGurr7AHMVrODJkQOP0HxIgPRUdFRXhLK wcLEGeZGB9WjcgJPVnMEVvPG9XRoBkBFVaCgIpEIGoMPWyWHYptv6SYASiGSEqXzM9XCPoCPUpBXTqGE ieJSQhPKE5ShquXDUcBDCxSE5ASsOdJHRnDhG9QHwm YVBfLYToeb4LBIOsDQSaWvorVgDuJFRzNATcQYmvVHNvAOV2VLB9XWTsRRKhKP3BBoSfCWZfZzu3ZVlz NNJaDKZkuq4YKZUiQGNxQEL3FmHhKMHmVKPmDShmRDLvSEK0Tss2NRRvFCLiNC8KHdMkCRPhXiNcQuxw HKNwHESzui3PFBZrYYEvDCO7YSZyTSTuHJFmCGfgDM QlDQWpCkD1DAFuMCNlOS3BJmZfAQPeHvA7GXyhXFJvZTXqlh1BIBAbWARnZLg7EJWlWPYxTJSmPAldLL HaYKTcUGL6WGCcTRFkGM2EDjLtIQTiOsS1IaibILRuTYVrsi0CGIKyZPKiReBiDJFpSNXmALFuDHxdLL AsXZYhBkZ8SIEpTCVnTI2OHhDpAPTqDXX2DLVqQQRs AYRllc8ODLPfUDP7PFIjUDCdZGXzTRTxCCwcLNViNQY8VkD4TFQuUVQuCO3DGuWuPEAlOYM7WkgyVZEc MQRnud7WWRKdGOH1XLMqYAGcVJRgLXMiBBruWMUzJYX6PUI1GRMfRTAnTO2CQgVlUDVrVUO6ZZBmXRQw VLXolc5QAXCdAEX3ObikFPWgTNGsADMuIEqkHSRuXG C7GdbfRWSnZCWgNF0HSoOoCEIaYFv6AGpiSGXdPKOege3HLBOcEBN8ESgaKXIcGNStXMLuZOwfUUDzGC B9PJJ4GRCsGXUjNF6PEyLgVNkaKFTEXwo3ZHwxZ2l1UGI4MZ0ZL2Pco1XqBPWvZUSNDHapDK7sabCeKA DqHr7IT1hDTfv3Hcq3CUp2VFFsWaQlBTHbLFEyVWQv MrVnWJTlBXNxPE2nPBGfLEh4TQotBQSjDRBiJGDpBXMzVeObGFLhBqN9MWMvNvMiAA3SMc4XTnN7LDX6 wMNmVb4GZVhlZMcVWtJeRD2THQg= ID Date Data Source [id number] 04/19/2021 12:32:29 PM EDT [facility] Name Value Range Interpretation Code Description Data Renetta rce(s) Supporting Document(s) Glucose [Mass/volume] in Capillary blood by Glucometer 329 mg/dL 70- 140 H [facility] ID Date Data Source [id number] 04/19/2021 11:53:00 AM EDT [facility] Name Value Range Interpretation Code Description Data Renetta rce(s) Supporting Document(s) SARS-CoV-2 RNA 2019 nCoV Real-Time RT-PCR: NOT DETECTED [facility] This lab was ordered by [facility] and reported by [facility]. 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 [facility] Patient has symptoms related to [facility] When did you start to experience these symptoms [Date and time] [Phen X] [facility] Patient was hospitalized because of this condition [facility] patient was admitted to ICU for [facility] Patient resides in a congregate care setting [facility] status [facility] ID Date Data Source [id number] 04/19/2021 10:54:23 AM EDT [facility] Value Range Interpretation Code Description Data Renetta rce(s) Supporting Document(s) [facility] GMVTBk4qNhMTCeIay3XqFeTrCBCyQP5qanj8Z9Q4pSWxD3UxqWAgt5ykE5DrI8ArHUZqADUYVZ6SuZYe jb2 [file] hnNBUtKRDbFU5c4GvlnaIccsDocTO2MiLgkn/YXqg4YZ1JkSw/[place]/0cvpNNCMftwkUC9zmj7csy9URK GQn0gXjWeVv5GZUtsa1aVVUOw+ykou9P8nO7hdIWrP Ew6pEsjlc2bbJH6lajpfj841nVx4zOqQ3oO4L/a98/c0T7nBrEMW/eKuzmjVkCD0fwm4zbQ5keBhNvbp WBr0knb55Gq3trYVnrsdpR7JV65MCxV/qJM/7FCFXDeHagTKQd0ciZ2gmfnt+lF0OxSqrNZ6GTzRrrzq +uy6S7dsnWS0tvvFhcpkqquA8KS0hnsE6H9MYWZC1K noG+kZ6FvGpKmcP4/pLDtFb8nNpudsQVbx0uRbOUUDQca9feJEqhCB5xJGHB9J2R0OpgpIQSY5REGf80 iGB+5wjmKA1VCSsONRIg6QLDFEcwg9genkajTnovLLx/cXJ+0iM1yLt1pALaJhleG66BK7xyeir9Z1Tg bzC0jHzpKn62tx2n9GnDtadEj/MTJ+zcTm9RkWznOS 3zHHXluMXqB3sfNZWnnTTeR4sgLGhSgJd5khY4hLrqELdjSRoEGXBuVxeITMut7Vlqhfs+90WkEWlEOp ORYHDiS0w1WJPopG5Pu/fCZj/E5Iipbiw6A3HimxLkZM/2IQJPdXJ+8rD6nOpudSTJdzDj/MTJ+YmT8x Ye5zfQfc+npR47OE1oyl5f1QwMzy0FnEIO8qrg/Nbk 4GCeql+4F/xCP/GWU5Hk7oW9JXBpyCN0WPNraUF23ct9NG/oTkdbb842ES4UNMKq36cw3/xE5/xE5/xE 5/xE5/xE5/xE5/xE5/sGY624uM6eFuXUiTJjehowUdgSLOIvpUuqUbKDJWGNnQN+m5mSA/qJTj/R6Sc6 /USnn+j0E51+otNPdPqJTj/R6Sc6/USnn+j0E51+ot NPdPqJTj/R6Sc6/USnn+j0E51+otNPdPqJTj/R6Sc6/USnn+j0E51+otNPdOpEp5/g8AZuhgFBQ5F1uZ 4/2lqvDc5Xy7/l0XNbkkXUS2TcP7VEcOsIZYHyEIGMmPRIK/4ZbDdywD+K7UYO+Wvv3bvY/3Q5WkyE6R QYj9kVXblv/ETn/ETn/ETn/ETn/DUm8YRvF13qE01b X96lV91nZ27gF50uT79eA65yS13vE81jU81vY5v5cfAwy76vxn9SgzQ4MAA5MpU3v/Xegrk2fBHlKMRI F7pKeZHTJCddNPlK67mnf5vjSZlfrklzc82Uw1Cg+562o9a+p/uuyp5xE8g1yVkTvQqlXEN/0eknOucn Oucn+j0/MQMiTsSJyD/zWwk4PGl0GV2/4ZDPR4VsOW 2QXopKe6WuNVyVuBI7ZxbC3gHjE31RYuC+3uZCmeDeNG6YJVHT5hClMt4BQRLTctderqEzpntNqpfyA1 lP1KciU27M5VCG44UPx66WrOI/yBoWC8Vl8joV0/xE5/xE5/xEv+xvEzMdGnKu6R3scKRWcwfB4/xE5/ zExfmJi/MTF+coVs8DTEuw9jFXYIAKPPYBHAWUKBwJ Y0lJTaKLWJZ7LFvQ7toc7evYfGFKZij8eDXN8wYCBxiBGVJORW8+6vhogYnwTh5QWXU9rjUAV1476EgV a6l8tmxL5v2j5as31+iYjd62dmLr+54m2Uo/yBl6ndxFa4Ywbw50MgK9kFrBOwowwpcSYmvHIbT1wk65 P7o5ZZzCmiu+OJAH+h06D23iUNe+/6x9/7sRgy71z+ 2/Wvn+br/h377oMy1bo/+ZIDDa4ErV6z91tjp/x/l4ay5jcf4mue+9epu72i+1f3L3e+U0T7FUnpXd7S YPswP2Z4go6wJ+33KptF9M81CpK+2oaj4uiF4p/+t6kcR9M91fdv8muv9G/+Ob0uZGrX+e37mk/dt+5d 95/8WkWj1m4v5kFP99hFcEFrGnTI/55vuVMn+1st3n f7F2ofa9/d3ID1jK9a7tv4I/+Y0laJ6s17b/0T60PZ/z24mUqkgub4AskQlg2wY60NA7w/pD44rCs+iI dzw8feMdUbe1oJlqP/LNP63+zddOcPhV/41lTHma3538uJwnM8pQ0bbeS6sX0y/5mq7dV/Q6skh5ki90 ez9vka++s0W+Q5cc30gJi/rkV+x/+jA54fEwW/U/ki 14/ws450njBwpFQQp0Y8WJ+Dk8F59S4g6p07hoo6V/1/Z+7yPb7/1ocf+gW6emuwF8C8n/mvgt4kEdYc +30d7x+bh/PY4/4/69t9Fu+DeqZWIMd4t1qFttY3uA4csbG1kV7s/l4vlLctVxG8s+4qQj4V098hs99K vbhnZD+8K3PLfg3gO+4Z6PmsPi+ap/euSrPuyRr/rq ogxIb6hjx7zT9I3jFb1zfO+c46fwWXgfo/quzZI90xHKneu17540+msDB9ph/+uwj5blwobiL+3ffI/6 79yyq7mS/o35gXOCkhb0/WUSg398C221PpromJ3vUT+L96jchXZx/eKU8oF1w4DYHLEbDw85C8l7D+vM ISx11PqSW3lIiJ/3xoxIeN5p4gq26n/t58+fw4Wi23 dEL4uNK3pc+j4c1bsxTYTggiJjlpaRo4yp8gYct844Dv/jfl17Hdlv+6tZsrP1LWuIo0p26ej7cffQrO V5F6gm9nU4k6911zjBA0mm/+T76Qdq/+bbdH2/Ccmz3MX+kisTayf2Tw/R47KfIbgt6Vl1T6vY4fnr2/ Uec+O8B9/mpGd23tF/60wh671ADPMJVZQ6kNZnp2vT j7o1cndE6zIuA6mEI+exdDyvUawcz+sYC8fz+rn68tqenDb5+0OsGs8+W2oYP63W37UgbUwh5KL0HuiH m96rJ9siS4g04anqpKy717eSXJ06BugMc/zl7hweBLgKlhX+eCLcwq708MvqY/zX24MfS4/zOSbK43qP p3WgZQ863ias0CXA3cc6gkQg39Qeo8HlkV+3b2gR60 FwTO0zDpiYy+0Y6df2ilrP5bZ8wUTVz8Y5zm2j1aBjgR6xK8wkhL7cJ8y/b/gQryH6WoL7uR6WokF3By M8uW8VfzD6PyY0nL0UygZ7KjF4uC4PpdL0ZsT8iJ6iZ1N+hnwN+Entry Level Financial Analyst/3tLcckdtXO4dQnk7s16An1O5wo 0c9kXszW0nX0uwvJ4lK7b/b/t834+22ARlP4I6R0+J 3nnslPqf01K8zqw+E8i80heEGG+X2krpfGsp15W5bsf+K8e25wpDCM/B4UEcY5p8jFenU83LsM81CrM0 7Bo4pHTS+ureRru/12m7DN2Hhzl3mL0lt4N8z/2g/iMJif96uv0QD/w88qajvGDa7M3SxuRcz5TOaT88 F4lJ6KLeN+9Jz4ldizS5qL4oVmsbyW5R9/PG9d3v+3 2i5M1819f0awgb8cy+H8uzP+/7z+vabGtHtblFdfEy9H749d6Ru8it52AT+3fj/t37HU/2xvc/aD9v+7 kubL/UNth3JXW2qVt3U0x8QN0BqbzU9nutyWiLgj8Di7Qi8uMjz3eGozjD0didmTnxkWCei71qvJs3a2 c31l2/99ntrR1wH1Verc9wwpYZ1uZwoGc4onA6WKXo tG+c9+W9c6941i/HypT7vBtr4d33H1gnd1dsdpHYfa8oPeMbYuHr1lkwT52cC/8w9qg5oFyBEsP2qwS3 fB7SV+35i+LPMcO/2boqLP5VLsYRxdailjeSt77Pldq3HUHu/jCokW9lM51rRxHrypLBjt9BKvbzkE+x mRm3fOvT4gv2eCOr0waVb4QabqYk4a2f/I2l7xz+Rm 5nxNfb8yr9I1qS+/hFF6w3bRsWW62skTi2yhC13KwUUghZx9wYnVZ1EnHUQO0+GErwTi5vsq7b8rTmcv 8ZnoXTc65zW/1ad6sziqGVhf+r/uabq/YUA9qUkqSK8csWwfgtYm//q24jto86hYYKYv/d2+YG2ExDn8 IqcvlXOq/8K31n+VfqP/CwRs5B3Db4c7s2X35z+Vee r4Hz2UNI+Lr73eQj1O8bS7wbl8h97DJ9yXWlNjuI51+6kvGSA4isj/gP0BW7aivL5i46lboJhnK4lQ8a wgQiQ61a4lu5NxS1/q339G4VxiP+7T8kwOK2fG+qnX91Htam6DSQz9l7uDSLnN5BlEG5zR8v/fXrhr9+ 3XBH+2S2ZejQ+0a7/Lql7W+88hVtd7Vu9/S6ku9acv b8qwH/qtmx8iNDe/qBIdhtQ21hY/8B58s7P33q3f1QIYB+4f60e38jhC/SPSX/SuOM/Cvds/Yp5YlsJ+ m+ln+l+32/7/tD/pXGB/lXGt/dA2xBdQ72j6K37ve8W4W+wt4Ig2fN10eqayvZBAuI2/BBoLD3WnMeJu 6p88j2T1A+le5H+Vam3uDhvRnvp2hhJ/1C0zqKp2S7 Xl2B70x1U/Vn+Vfqq/YbamjeqcB2ML7TFFIDpxbML9/vi93Vh3gJ/4nFy8+1f30IptA+6A5CmtWnm06h ns36KIUe5dvKTQh1zbWSpTeBh9br3i9/Jv/P4H2eTz9+FJ8i1z3v949JqkB4T5DrPB1LB1m/UefQz9fp l584dmE/0qrk/fQ3k3+8mhof3txUe3a9/fR/k381cv u5jwz+lcG/WtqZhFY701+Fx0NSWuDBVWhQIgi02y58DQt8uvunrYHHF5uT9lc9Ms9ii84682jA/8rSv4 rt/w8UkM4ue6marB1f63eqxC6eZ5Ax6nntO3be0Q41zfpE1o06qBcg05LnSH3Z+S3qZ1GzCB1B+Q7kO5 DvQL4D+Z7wZ5BuEC4J+V2uQ4ZdED2D+C9cF9CkIK5R sqL7FuwRo5L0LR9be46/w+e6C6pJ6Wu8hgfJlet0a92bgmL6o67y/sR96Ye52/g0xhkaZ8ik1fxrA6lG L/vlj63w2L6U/yQSarN8Fty/gxBpPnyrc07d0Y4D/aGGdtZ7Tbp/shQrSlzif73c8G2C/pVJX+m6O/qz oz87+rOjP/coP10sDEd+8grlyxx64G7Zsxlyu/bz6D pb7++amc9TaR9NUqz/sp1uk5F4u04nelU27++htgztE+5Zo9h1t0sn46lxFR6fY55+VeaykRfyXa9+tv 3qZ5N/CD3VeFsrQ/gnov91fj2yFS/5V7mY+ODcHI1GnbSvz1v+VW6//gPt422r+FcG/7y7SqkC++tfGf txi77n25P84+oNtt3kl1+h39Ihh82nO38zeIy9F1cN [file] C3a7swhJoMDwn73EJdDgvYngbf64XIt24uxqKb00kt440wWfYpl1gOOs+hernan/MNnKiJ9jO2gZl/dqD08l 1cQ+dP2bv+hIa9KmV89WF808PgesMdP4fyeUdfC5wAo/rm6IvkN0yXXQkBgDUWTUroM4hEpgEpaAsIhu vJYx3ylOpGmCeM5/XPrbiL/ScwZ/tWu7laaqwrhke+ xPxV/T1kaBVbthayv/uvTM9/sVDxMHMcxxNcVf+Y7TQ5nF2N2mmpvICMg8oQw1a5nHhRJQaD0zN/yV+o Pir/y39/tVLFZT/TK6keAx5IjTq/Y4NyxMdGCn8ITaO91hfDb3GeXQEypN/rm0oevXzWfs6quH4neeo4 3rK/Zy2FcBz25+BW1kfX9W7e2512ex8K+a+Cs9p/gr tAb2uX2I1Zclt092AtNa0Grzl6J6fB+SnxV/5XJ/2zrxcvDnMVH6ZXukL4cCQ+1y2/xYc/yV6hV/FWXx O1lx6u3pSiVJknOMAtgEN5+ld+P1K5BNjanKK7m0zV2qdg9bJdHu/3tpi3E3iT4pz28PFwOuAiZjTtGl NcRfNcRfNfFXer+Nj0V5ax4jmD4mcK6vhG5rec4Vfa JVVH/hyzxukbkbpbnrd7e9n9F6rL+p/sRfNcRfNcRfNcRfNcRfNcRfNcRfNcRfNcRfNcRfNcRfNcRfNc MgUkUJZdbJpXEqX9vR/FW8U/BXDfxVA3/HjC358KgV/DNws77JdqK/VwWeu4JJuE+pD4i/Uv8Lg7G+IP 1YvXN2xp67+Cu9d/KWSxrSO9MMv/432S2hn+P6HfXR Jd8LeChQUv22E3k33An6I47gcq+6+Apf7mLGOEbhl7oYYO+IJu7dbuv2R+2xk7ORlJYZSlbZpf9E7J4+ tl+offal [file] shahana/HMm0E5tg0Sj5/81x//+fwt5WlgZ510+qD3S32q6zdoB/3qq0/c48Cc4Xq/d3z9y/uM8lGniP60PB 8/GcwKm2WuCxRJPWmyh+pbz/zdj3/+2z9+/WYXs87x /fWF+1C+m/tHf+KLitqDvfY+P736Bn/z7ccf//y3H//6//zwb3/n8tupf+/ht8vn6ndT3+A/ffvdxx/+ 1+vh//iXP//0+dNi0kgR2sAn2M++/8U/xg07tm65WjZ24d+8Zg0zG06jjIUH7GFEaPr4kNiPN9dKNuhz U23sNz//9ufff/zw//747/9x/DwvLueff/Xptz+/M+ V8FgVjo/q///ov//CTX+8X8dUP//b2gtcb+tkP/+v3P/z7H3/483/8+8cN3/7lL3/65LpT9/7kJ/uZv/ bJ3b27ec8lxwY9HfZ+3z/4/sff//c///Z1c6s32aGfa/32M92FrJ718w//9uo6f/jkn77/7OPvzLrSUo tn/+arrz7/+rvvXwIM00s4+//fT+1iBA7Rwi6/88N/ +/EjffzlXz/5Sk1V16jU/tr38JwI2ZFqp9YQr+e/+a8TBFxx/Pp88+3ry/ZJUBQzTrZ8+tln3/z269dv i4apc4Lq+r7R/ffvI7JjIiMxNMP1bxNrzAbdzbPfVtnGGFrrATNxZyt1DC1ZtLAcGVUtQ6E4NBYldt8s HLKkFWSuvOCgSqBtUDZFPE9IvRMlOG5XSHj1MEYkHQ DwQtJbLIVsgmS7HDLtSLOjUMDzW3SnkwHeiCUyKVAtHw7+HD0hj0ZxRwKdBVYfUng7GV2EcJEyWM4MaM YloL7qkdElM439afRzVMUiUcqak8HoBEzmQSCHHB8MLJW7QAU2KGCbOi2+FA2cm9GdOdJwJCVfWjw8QR 7ZtCZpx4JuLP4HW5JxMYYbQJFYIWE5e6EaIJKhbmgd bldrA6AyXWL5pE8hNIG0NQTzCYdjRRBjJVXaZKHtLFAfPXskDCGhUHUrXPVaMQEgVNd4bOHqXZ3NE1Ul KLDvBBTLLULgocCeYo1rZNAOOHVNA99ARJGIVLQESOYFISCwORUkELayMN4MxNTtZYE7JFpDXVEBNTkH GPawByXod4C1YFFyH5QpPHYqtbIaNSMLNGskHcxzFV 7luKqferahC0RhdMTpOWRTUFGlDPVtUEEkDVEeX3Dxa7Y7E3KpUJkZPLCNVVyTSRltQkF6k59lhiCDBD JpZXMpID4+ZN6fg0YsAv1DZNLcXL8clfi5RK3JfFRaFU8OJEixojMaE1odiyAhBlMxNXNZGV2uH6CwkI 50IDE+AuYiWJ8hcle2arGyKqCyBJUxGZWcJRMjHQap EOYnACEkJXJcLBD9KXA3YTQeDiQyRXTjVxNeEgvoLHIjDURdjxFMHCXqVRQ5WOvxFNMjQVPwRGSnSIta XCNcHUtyMkglWMFaEMGuLV1aHnNzXTNdMXJsYSIbXyC7LqWeIfANFZOgQGErXPGsOkTdNTThKYFeNCny LVJlQISgVFa3QIBsCXWzJS3mOgGpOWUhPDNmLCCbZR EpQRJhuhSWMJXvJGHeTSV1XTJkAEYiZQLeROntGWEvDKKnEYC8DHWsCIIjYJ4eSmFwTIUsETA2VvUbYA QiOYHgmwAABBJvFOObSWN6TYTiYHSbJVNtIKeyYUZnWVCmDxK1GYOfYVBgAI3lDhViCKEhXVE8YVLfZS FyCTTtfyCRUVGlXLJnSUr2ZqBfSJChKZBkELkcNQFw GLWiXAanDHDwIODiQB6xNzKvCFKkLVUpDSOgXDJfVKBnzxKDNWTqZGYgLZO0OfQgIHSeRMUjONyzFRBy VQQyZSU7NVZmADMjDO1hCiBfCOWfVgW3UWXsZNFfYOSjnzDEHFYwMHRbUYUgBCKsEUTsLRSrMIuvVFKj XKPkXnC6POBbUIPnPH7mMuPwRZQgJAM8TMKuJFDcCE TxecRUBBZeZRIeKMWgABX4RYDkJATxAYw2qyAzbRPdHln7Je6TxVklLWI1Tg6AtlDsCMCwOZLTJp1Fc8 90IDUgMCBSCgo+GsybkTZenHamBVDHFtNfXLUDANZDQ8W= ID Date Data Source [id number] 04/26/2021 10:12:45 AM EDT [facility] Service Cmnt XXX-Imp : NoneMicroorganism XXX Cult : No Legionella pneumophila isolated Name Value Range Interpretation Code Description Data Renetta rce(s) Supporting Document(s) ID Date Data Source [id number] 04/21/2021 11:39:01 AM EDT [facility] Service Cmnt XXX-Imp : NoneGram Stn XXX : 1+WBC'S Seen.2+Mixed floraMicroorganism XXX Cult : Indigenous microorganisms. Name Value Range Interpretation Code Description Data Renetta rce(s) Supporting Document(s) ID Date Data Source [id number] 04/19/2021 12:29:40 PM EDT [facility] Name Value Range Interpretation Code Description Data Renetta rce(s) Supporting Document(s) Hemoglobin A1c/Hemoglobin.total in Blood by HPLC 8.3 % 4.0-6.0 H [facility] (NOTE)<5.7% Average risk of diabetes (ADA)5.7-6.4% Increased risk of diabetes(ADA)>/= 6.5% Diagnostic for diabetes(ADA) Glucose mean value [Mass/volume] in Blood Estimated fr om glycated hemoglobin 192 mg/dL <126 H [facility] ID Date Data Source [id number] 04/19/2021 10:58:15 AM EDT [facility] Name Value Range Interpretation Code Description Data Renetta rce(s) Supporting Document(s) Leukocytes [#/volume] in Blood by Automated count 13.6 10*3/uL 4-10 H [facility] Erythrocytes [#/volume] in Blood by Automated count 5.00 10*6/uL 4.6- 6.1 [facility] Hemoglobin [Mass/volume] in Blood 15.6 g/dL 13.5-18 [facility] Hematocrit [Volume Fraction] of Blood by Automated count 44.6 % 4 1-53 [facility] Erythrocyte mean corpuscular volume [Entitic volume] by Auto mated count 89.2 fL 80-96 [facility] Erythrocyte mean corpuscular hemoglobin [Entitic mass] by Automated count 31.2 pg 27-33 [facility] Erythrocyte mean corpuscular hemoglobin concentration [Mass/volume] by Automated count 35.0 g/dL 32.0[facility] width [Ratio] by Automated count 13.9 % 11.5-14.5 [facility] Platelets [#/volume] in Blood by Automated count 195 10*3/uL 150-400 [facility] Differential cell count method - Blood [facility] Neutrophils/100 leukocytes in Blood by Automated count 92 % [facility] Lymphocytes/100 leukocytes in Blood by Automated count 6 % [facility] Monocytes/100 leukocytes in Blood by Automated count 2 % [facility] Eosinophils/100 leukocytes in Blood by Automated count 0 % [facility] Basophils/100 leukocytes in Blood by Automated count 0 % [facility] Neutrophils [#/volume] in Blood by Automated count 12.46 10*3/uL 1.8- 7.0 H [facility] Lymphocytes [#/volume] in Blood by Automated count 0.77 10*3/uL 1.2-4 .0 L [facility] Monocytes [#/volume] in Blood by Automated count 0.26 10*3/uL 0-0.8 [facility] Eosinophils [#/volume] in Blood by Automated count 0.01 10*3/uL 0-0.5 [facility] Basophils [#/volume] in Blood by Automated count 0.05 10*3/uL 0-0.2 [facility] Nucleated erythrocytes/100 leukocytes [Ratio] in Blood by Automated count 0 /100{WBCs} 0-0 [facility] ID Date Data Source [id number] 04/19/2021 10:14:10 AM [facility] Name Value Range Interpretation Code Description Data Renetta rce(s) Supporting Document(s) pH of Arterial blood 7.33 7.38-7.44 L [facility] Carbon dioxide [Partial pressure] in Arterial blood 42 mm[Hg] 35-40 H [facility] Oxygen [Partial pressure] in Arterial blood 117 mmHg 95-100 H [facility] Oxygen saturation in Arterial blood 99 % 94-100 [facility] Base excess in Arterial blood by calculation [facility] Carbon dioxide, total [Moles/volume] in Arterial blood 23 mmol/L [facility] Oxygen/Inspired gas setting [Volume Fraction] Ventilator 0.60 [facility] ID Date Data Source [id number] 04/19/2021 09:50:06 AM [facility] XR CHEST FRONTAL ONLY [id number] RESULTI nterpreted by:Wilma Marr MDINDICATION: Endotracheal tube placement and endotracheal tube placement.TECHNIQUE: XR CHEST FRONTAL ONLY [id number], 04/19/2021 8:50 AM.COMPARISON: None available.FINDINGS: Endotracheal tube tip terminates 1 cm above the raquel and needs to be retracted at 2 cm for appropriate positioning. Enteric tube side-port is below the gastroesophageal junction and tip terminates in the left upper quadrant.The chest wall is normal in appearance.The mediastinal contours are normal.There is no evidence of pleural disease.Hypoinflated lungs with bilateral atelectasis.IMPRESSION: 1. Endotracheal tube tip terminates 1 cm above the raquel and needs to be retracted 2 cm for appropriate positioning. 2. Enteric tube side-port is below the gastroesophageal junction and tip terminates in the left upper quadrant.3. Hypoinflated lungs with bilateral atelectasis.This document has been electronically signed by AUSTIN Marr on 04/19/2021 9:47 AM Name Value Range Interpretation Code Description Data Renetta rce(s) Supporting Document(s) ID Date Data Source [id number] 04/19/2021 09:45:20 AM [facility] Name Value Range Interpretation Code Description Data Renetta rce(s) Supporting Document(s) Consultation [facility] BEBTPa4xMfSHSfDc72/XOOkgIPCdr7JoSFsuPQd2TIteFFSyV7QsWYA4mM8iXUX8BObEIpAcVrOzUUT6 lbm [file] ICAgICAgICAgICAgICAgICAgICAgICAgICAgICAgIC AgICAgICAgICAgICAgICAgICAgICAgICAgICAgICAgICAgICAgICAgICAgICAgICAgDQogICAgICAgIC AgICAgICAgICAgICAgICAgICAgICAgICAgICAgICAgICAgICAgICAgICAgICAgICAgICAgICAgICAgIC AgICAgICAgICAgICAgICAgICAgICAgICAgICAgICAg DQogICAgICAgICAgICAgICAgICAgICAgICAgICAgICAgICAgICAgICAgICAgICAgICAgICAgICAgICAg ICAgICAgICAgICAgICAgICAgICAgICAgICAgICAgICAgICAgICAgICAgDQogICAgICAgICAgICAgICAg ICAgICAgICAgICAgICAgICAgICAgICAgICAgICAgIC AgICAgICAgICAgICAgICAgICAgICAgICAgICAgICAgICAgICAgICAgICAgICAgICAgICAgDQogICAgIC AgICAgICAgICAgICAgICAgICAgICAgICAgICAgICAgICAgICAgICAgICAgICAgICAgICAgICAgICAgIC AgICAgICAgICAgICAgICAgICAgICAgICAgICAgICAg ICAgDQogICAgICAgICAgICAgICAgICAgICAgICAgICAgICAgICAgICAgICAgICAgICAgICAgICAgICAg ICAgICAgICAgICAgICAgICAgICAgICAgICAgICAgICAgICAgICAgICAgICAgDQogICAgICAgICAgICAg ICAgICAgICAgICAgICAgICAgICAgICAgICAgICAgIC AgICAgICAgICAgICAgICAgICAgICAgICAgICAgICAgICAgICAgICAgICAgICAgICAgICAgICAgDQogIC AgICAgICAgICAgICAgICAgICAgICAgICAgICAgICAgICAgICAgICAgICAgICAgICAgICAgICAgICAgIC AgICAgICAgICAgICAgICAgICAgICAgICAgICAgICAg ICAgICAgDQogICAgICAgICAgICAgICAgICAgICAgICAgICAgICAgICAgICAgICAgICAgICAgICAgICAg ICAgICAgICAgICAgICAgICAgICAgICAgICAgICAgICAgICAgICAgICAgICAgICAgDQogICAgICAgICAg ICAgICAgICAgICAgICAgICAgICAgICAgICAgICAgIC AgICAgICAgICAgICAgICAgICAgICAgICAgICAgICAgICAgICAgICAgICAgICAgICAgICAgICAgICAgDQ v0E4uiZSQwEYVfWK9dOTp0Bb1+EWeCJsSiAYW5pcHpzU3HVK5gk3UcZPzeXQVzy1QtJHk2HM1EXPMgWQ tkDA1ULBimtr9CTTPrHDJwgJOEc8udWoBpUEZ2CGAu NqsaZY0ZMQIsT2vazlLdWFMiLDJAVU8BAwGhN2UzvN38EBAGXe9+BLguxlPnHjmUBkB4WTBlb9WnGAy0 GD8GMHZvSravr1PcLVftBHSMIPzaFW2EKUB9URZ9WAJpVt2GKALwI885giYbDH0JKb4ISyTpWF9gut2U ACxbZADkPriJUbq6RCpxWT3GqPMyZCuSv56ipYd2pm PijSCOSGI8XZFkv5BgVOYCc5OaKHhqVU0HGjCpeIVxLE6sSC3aWCElPLI7HjBaTXVZOY3JQHXgCXWtwP RxJJEeUMBOYK2SUIvuHWQ4YPNghjRorZTgROweNP2MFGVlvqIwRIcwHASHEJg+Xb0AKC5sm5EwLVszPS RdXD0sgs4EVScRAfBgO7C3zZUpV2V7XVxyYp1CMDBw FJYkBLHrZRESRFloDO0LDX6xlsR5JK8UdUThCWHgYXPvnBJgRJm0W72ueEVpXGzgKM9OOBV+Cristina+Pg0K BEKpWTIlEDJoKbXaPNMJAoEeI4CrB2CJr1JvQ0FmQA38vWuvpiYcKOmjUQ7TPR3mIKQwAXWEFY8IaOCf pB3aimXjNkXcXARGVoNdU45ffQEfSRJaPOV6CHBhRb 4LRXRuQ1ZyqbBlmKprhsVnHNPfLRBNRM6CQAruxqJslKInkJljQO75rQyaJY4MAg3ONaLjJG2wis2NcR SyUq6IBRKyAF4UZHZcEGJpVHObRYA7BWDjVrLqVBieQEYaKXQkPHS1BPGfPYOuOX6KHrZjLIUeVXPxQQ XdTPIgITOnad3NCPKxSCAjJHMhKzHyCCNhNUHwENlv UTFhPCFiIQI3METbPPKpJM8BBfXvOINqTWNbBGZpXAXuWHRqyw3PIWWcWTOjFaC0IZZoRFEkZBQwJNad WAJvQIBlOqY7CAKpRYQmZW3NRuBrIGUdSCM9ZZHzQPPqTDKbpk4MOPScPEDhFxG0OmMmEZRyNGJnCNok VJHnHGV7DjZlHZXfUTReGV3MSoYnDHAfGXJ0OJOjOD MjWHVtcx5MFCOoLLMcOKSjNEFlRPOxYPWgIZnjHNSwBKB9VTqbQLZtUMYhCU2FCtZkYCYfWMVnFXubEQ RpNTTlek8QVHDdSIWhPdA3DZWqQOIzDEUuWRmlIZQeGAW8KhtlUWNhTQMcQF5ABaRfXHEqNSbbTkGnMM VnOJZwlq4LOPDxOPFaMJBqVIGqRSYlTQMdUSwwUKNl IOF1PWCaXIMgGVNqMX6QQdInEBntEVPGAaz7JXuaX8q6HJBmXI8SM8Mmq6AdOKhsPXPWBHyeML4ygmAs LRYgVu2VS9mOOyhlOlRbAaNjHzn3FvY3QFF5ALepWDO4UTUiQsPdUdJeBG7jVCOuGeLfHWTvIMvrKCdp XGjsQcR9WvnwHnN4FQU6NrR1DgTaLE7ZHy7ZDxL1FOG0dSFbNp3KHPG9SR4MKGYEW4KDCt== ID Date Data Source [id number] [facility] Value [facility] Interpretation Code Description Data Renetta rce(s) Supporting Document(s) Hepatitis C virus Ab [Presence] in Serum or Plasma by Immuno assay Non Reactive [facility] No serological evidence of active infect ion. If recent exposure is suspected, test for HCV RNA. ID Date Data Source [id number] 04/19/2021 10:17:40 AM [facility] Name Value Range Interpretation Code Description Data Renetta rce(s) Supporting Document(s) Color of Urine [facility] Clarity of Urine [facility] Specific gravity of Urine by Refractometry automated 1.030 1.003 -1.030 [facility] pH of Urine by Automated test strip 5.0 5.0-8.0 [facility] Protein [Mass/volume] in Urine by Automated test strip 30 mg/dL Neg [facility] Glucose [Mass/volume] in Urine by Automated test strip Neg [facility] Ketones [Mass/volume] in Urine by Automated test strip Neg [facility] Bilirubin.total [Presence] in Urine by Automated test strip Negative [facility] Hemoglobin [Presence] in Urine by Automated test strip Neg [facility] Leukocyte esterase [Presence] in Urine by Automated test strip Negative [facility] Nitrite [Presence] in Urine by Automated test strip Negati [facility] Leukocytes [#/area] in Urine sediment by Automated count 2 /HPF 0 -5 [facility] Erythrocytes [#/area] in Urine sediment by Automated count 24 /HPF 0-3 H [facility] Service comment [facility] Mucus [#/area] in Urine sediment by Microscopy low power field None [facility] ID Date Data Source [id number] 04/19/2021 12:37:50 PM [facility] Name Value Range Interpretation Code Description Data Renetta rce(s) Supporting Document(s) Amphetamine [Presence] in Urine by Screen method Negative [facility] Benzodiazepines [Presence] in Urine by Screen method Negat [facility] Cannabinoids [Presence] in Urine by Screen method Negative [facility] Benzoylecgonine [Presence] in Urine by Screen method Negat [facility] Methadone [Presence] in Urine by Screen method Negative [facility] Opiates [Presence] in Urine by Screen method Negative A [facility] (NOTE)Positive results are presumptive a nd unconfirmed;confirmatorytesting can be ordered at the [facility] at [phone] [facility] at [phone] within 5 days of collection. Oxycodone [Presence] in Urine by Screen method Negative [facility] Fentanyl+Norfentanyl [Presence] in Urine by Screen method Negative [facility] Service comment [facility] Results below the indicated cutoff (ng/m L), are reported as"Negative." Note: for medical purposes only; not valid for legalor employment testing. ID Date Data Source [id number] 04/19/2021 10:09:15 AM [facility] Value Range Interpretation Code Description Data Renetta rce(s) Supporting Document(s) Heparin unfractionated [Units/volume] in Platelet poor plasma by Chromogenic method 0.60 U/ml [facility] ID Date Data Source [id number] 04/19/2021 10:09:15 AM [facility] Value Range Interpretation Code Description Data Renetta rce(s) Supporting Document(s) Prothrombin time (PT) 13.6 s 11.6-14.0 [facility] INR in Platelet poor plasma by Coagulation assay 1.09 [facility] Routine intensity oral anticoagulation I NR is typically 2.0-3.0. Target INR must be clinically individualized. ID Date Data Source [id number] 04/19/2021 10:29:10 AM [facility] Value Range Interpretation Code Description Data Renetta rce(s) Supporting Document(s) Natriuretic peptide.B prohormone N-Terminal [Mass/volu me] in Serum or Plasma 213 pg/mL <125 H [facility] ID Date Data Source [id number] 04/19/2021 10:29:10 AM [facility] Value Range Interpretation Code Description Data Renetta rce(s) Supporting Document(s) C reactive protein [Mass/volume] in Serum or Plasma <8.0 [facility] ID Date Data Source [id number] 04/19/2021 10:29:10 AM [facility] Value Range Interpretation Code Description Data Renetta rce(s) Supporting Document(s) Thyroxine (T4) free [Mass/volume] in Serum or Plasma 1.09 ng/dL 0.93- 1.70 [facility] ID Date Data Source [id number] 04/19/2021 10:29:10 AM [facility] Name Value Range Interpretation Code Description Data Renetta rce(s) Supporting Document(s) Cardiactroponin T pnl SerPlHS 30 ng/L <22 H [facility] ID Date Data Source [id number] 04/19/2021 10:29:10 AM [facility] Name Value Range Interpretation Code Description Data Renetta rce(s) Supporting Document(s) Cholesterol [Mass/volume] in Serum or Plasma 177 mg/dL <200 [facility] Triglyceride [Mass/volume] in Serum or Plasma 153 mg/dL <150 H [facility] Cholesterol in HDL [Mass/volume] in Serum or Plasma 43 mg/dL >40 [facility] Cholesterol in LDL [Mass/volume] in Serum or Plasma by calcu lation 104 mg/dL <100 H [facility] Cholesterol in VLDL [Mass/volume] in Serum or Plasma by calc ulation 31 mg/dl 16-42 [facility] Cholesterol non HDL [Mass/volume] in Serum or Plasma 134 mg/dL <130 H [facility] ID Date Data Source [id number] 04/19/2021 10:29:10 AM [facility] Value Range Interpretation Code Description Data Renetta rce(s) Supporting Document(s) Albumin [Mass/volume] in Serum or Plasma by Bromocresol green (BCG) dye binding method 4.3 g/dL 3.5[facility].2 [facility] Bil[facility] [Mass/volume] in Serum or Plasma 0.7 mg/dL <1.2 [facility] Calcium [Mass/volume] in Serum or Plasma 8.3 mg/dL 8.6-10.0 L [facility] Chloride [Moles/volume] in Serum or Plasma 100 mmol/L 98-107 [facility] Creatinine [Mass/volume] in Serum or Plasma 1.35 mg/dL 0.70-1.20 H [facility] Glucose [Mass/volume] in Serum or Plasma 365 mg/dL 70-140 H [facility] Alkaline phosphatase [Enzymatic activity/volume] in Serum or Plasma 110 U/L 40-129 [facility] Potassium [Moles/volume] in Serum or Plasma 4.5 mmol/L 3.4-5.1 [facility] Hemolyzed Protein [Mass/volume] in Serum or Plasma 6.6 g/dL 6.4-8.3 [facility] Sodium [Moles/volume] in Serum or Plasma 136 mmol/L 136-145 [facility] Aspartate aminotransferase [Enzymatic activity/volume] in Serum or Plasma 17 U/L <40 [facility] Hemolyzed Urea nitrogen [Mass/volume] in Serum or Plasma 23 mg/dL 6-20 H [facility] Osmolality of Serum or Plasma by calculation 300 mosm/kg 275-300 [facility] Creatinine/Urea nitrogen [Mass Ratio] in Serum or Plasma 17 [facility] Bicarbonate [Moles/volume] in Serum 19 mmol/L 22-29 L [facility] Alanine aminotransferase [Enzymatic activity/volume] in Seru m or Plasma 20 U/L <41 [facility] Anion gap 3 in Serum or Plasma 17 mmol/L 8-15 H [facility] Glomerular filtration rate/1.73 sq M pre dicted among non-blacks [Volume Rate/Area] in Serum or Plasma by Creatinine-based formula (MDRD) 56 mL/min/1.73m2 >60 L [facility] Glomerular filtration rate/1.73 sq M pre dicted among blacks [Volume Rate/Area] in Serum or Plasma by Creatinine-based formula (MDRD) 65 mL/min/1.73m2 >60 [facility] ID Date Data Source [id number] 04/19/2021 10:29:10 AM [facility] Value Range Interpretation Code Description Data Renetta rce(s) Supporting Document(s) Thyrotropin [Units/volume] in Serum or Plasma 5.500 u[IU]/mL 0.270-4. 200 H [facility] ID Date Data Source [id number] 04/19/2021 12:35:58 PM [facility] Value Range Interpretation Code Description Data Renetta rce(s) Supporting Document(s) Erythrocyte sedimentation rate <20 [facility] ID Date Data Source [id number] 04/19/2021 10:12:19 AM [facility] Value Range Interpretation Code Description Data Renetta rce(s) Supporting Document(s) Lactate [Moles/volume] in Serum or Plasma 3.6 mmol/l 0.5-2.2 H [facility] ID Date Data Source [id number] 04/19/2021 10:20:13 AM EDT [facility] Name Value Range Interpretation Code Description Data Renetta rce(s) Supporting Document(s) Glucose [Mass/volume] in Capillary blood by Glucometer 348 mg/dL 70- 140 H [facility] ID Date Data Source [id number] 04/18/2021 11:39:00 PM EDT [facility] Name Value Range Interpretation Code Description Data Renetta rce(s) Supporting Document(s) SARS coronavirus 2 RNA [Presence] in Res piratory specimen by BAN with probe detection NEGATIVE [facility] This lab was ordered by [facility] a nd reported by [facility]. ID Date Data Source URINE CULTURE 02/14/2021 12:00:00 AM EDT eCW1 ([facility]) Name Value Range Interpretation Code Description Data Renetta rce(s) Supporting Document(s) [facility] ID Date Data Source UA URINALYSIS 02/14/2021 12:00:00 AM EDT eCW1 ([facility]) Name Value Range Interpretation Code Description Data Renetta rce(s) Supporting Document(s) UA URINALYSIS [facility]) ID Date Data Source [id number] 12/07/2020 09:56:00 AM EDT [facility] ([facility], ) Name Value Range Interpretation Code Description Data Renetta rce(s) Supporting Document(s) PDFReport Laboratory test result [facility] ([facility], ) FVC-Pred 4.80 L [facility] ([facility], ) FVC-Pre 2.82 L [facility] ([facility]) FVC-%Pred-Pre 58 L [facility] ([facility], ) FVC-LLN 3.87 L [facility] ([facility]) Fev1-Pred 3.64 L [facility] ([facility], ) Fev1-%Pred-Pre 67 L [facility] ([facility], ) Fev1-Pre 2.44 L [facility] ([facility], ) Fev6-Pre 2.81 L [facility] ([facility], ) Fev6-Pred 4.59 L [facility] ([facility]) Fev1-LLN 2.85 L [facility] ([facility]) Fev6-LLN 3.68 L [facility] ([facility]) Fev6-%Pred-Pre 61 L [facility] ([facility], ) Eht5aqk-Mar 87 % [facility] ([facility]) Dbl4vcr-%Pred-Pre 114 % [facility] ([facility]) Mwj7sbb-Jyyq 76 % [facility] ([facility]) Zbq0iaa-Ahx 99 % [facility] ([facility]) Roe1moo-Praj 96 % [facility] ([facility]) Yal9pwp-BDO 66 % [facility] ([facility]) FEFMax-Pre 5.43 L/E/sec [facility] ([facility]) FEFMax-Pred 9.30 L/E/sec [facility] ([facility]) Bup0bss-%Pred-Pre 103 % [facility] ([facility]) Mfp7268-Jasj 3.02 L/E/sec [facility] ([facility]) FEFMax-%Pred-Pre 58 L/E/sec [facility] ([facility]) FEFMax-LLN 6.97 L/E/sec [facility] ([facility]) [id number]-UXR 1.42 L/E/sec [facility] ([facility]) Vcm8941-%Pred-Pre 91 L/E/sec [facility] ([facility]) Pki1185-Cri 2.76 L/E/sec [facility] ([facility]) ExpTime-Pre 7.20 sec [facility] ([facility]) Dqh3mgs0-Hzmi 79 % [facility] ([facility]) Nnd7xdz1-Gku 87 % [facility] ([facility]) Fhu6goh3-DGC 70 % [facility] ([facility]) Aav9qal9-%Pred-Pre 110 % [facility] ([facility]) ID Date Data Source [id number] 11/16/2020 03:33:00 PM EDT [facility] ([facility]) Name Value Range Interpretation Code Description Data Renetta rce(s) Supporting Document(s) Natriuretic peptide.B prohormone N-Terminal [Mass/volu me] in Serum or Plasma 94 pg/mL [facility] ([facility]) ID Date Data Source [id number] 11/16/2020 03:33:00 PM EDT [facility] Name Value Range Interpretation Code Description Data Renetta rce(s) Supporting Document(s) Blood Urea Nitrogen 16 mg/dL 7-18 [facility] ([facility]) Creatinine For GFR 1.01 mg/dL 0.70-1.30 [facility] ([facility]) Glucose, Fasting 246 mg/dL 70-100 [facility] ([facility]) Glomerular Filtration Rate Laboratory test result [facility] ([facility]) <content>Units are mL/min/1.73 m2</content>
<content></content>
<content>Chronic Kidney Disease Staging per NKF:</content>
<content></content>
<content>Stage I & II GFR >=60 Normal to Mildly Decreased</content>
<content>Stage III GFR 30- 59 Moderately Decreased</content>
<content>Stage IV GFR 15-29 Severely Decreased</content>
<content>Stage V GFR <15 Very Little GFR Left</content>
<content>ESRD GFR <15 on [employer]</content>
<content></content> Sodium Level 141 meq/L 136-145 [facility] ([facility]) Carbon Dioxide Level 28 meq/L 21-32 [facility] ([facility]) Potassium Serum 4.0 meq/L 3.5-5.1 [facility] ([facility] Chloride Level 109 meq/L 98-107 [facility] ([facility]) Anion Gap 4 meq/L 8-16 [facility] Calcium Level 9.2 mg/dL 8.5-10.1 [facility] ([facility]) ID Date Data Source [id number] 11/01/2020 11:36:31 AM EDT [facility] Name Value Range Interpretation Code Description Data Renetta rce(s) Supporting Document(s) [facility] QPZQFs3oWuECNbXx94/MGMzgVJGpm4GsFKluYWk3ZXtiITZoS7XcCCC9fX5iTAX0XRxCYkXpZlBfWZE0 lbm [file] ICAgICAgICAgICAgICAgICAgICAgICAgICAgICAgICAgICAgICAgICAgICAgICAgICAgICAgICAgICAg GEJrTMGxPOTtPP5FYFEzHJIyWLMqBPFyYGAbTLBmFVIsBLPjZVIdBYHiRVTbSLQoMAFzMFKmTOZtNLUi ICAgICAgICAgICAgICAgICAgICAgICAgICAgICAgIC EsYGCiSRUbERHqLQUoAQTjFRPxDD1DALIrRYXlNNNpWTOrSIFhYJOfEJLkFCYxTISjXQRtDQPvHSLySJ AgICAgICAgICAgICAgICAgICAgICAgICAgICAgICAgICAgICAgICAgICAgICAgICAgICAgICAgICAgIC MdZK1ZUTOcDTPzJNEaDZXxPAHpNWGhFRQxDFRnSTPv ICAgICAgICAgICAgICAgICAgICAgICAgICAgICAgICAgICAgICAgICAgICAgICAgICAgICAgICAgICAg XIBgLQAhTJYiFDDjWS1RRIUfRENjOEDqOXUiAHRiEPJrTCYsERRyQCJaFBIlYGJlEFWmEHPoSXRaBFOt ICAgICAgICAgICAgICAgICAgICAgICAgICAgICAgIC HtMOLdZZQoEFPaMKMbHQDnOQDxSQMvTZ5IXFAlODPoTIJjDJGhEBJgBOHgEYElKJMsJDFaXWIkHLRnCK AgICAgICAgICAgICAgICAgICAgICAgICAgICAgICAgICAgICAgICAgICAgICAgICAgICAgICAgICAgIC LfVGNyUM7GLUViBOZcCGTmFGMnABTaULHzXNKvWTUk ICAgICAgICAgICAgICAgICAgICAgICAgICAgICAgICAgICAgICAgICAgICAgICAgICAgICAgICAgICAg CLJnYSApWZClILCcXYJiSE3WABQnZNQlBQFtJSVgTQOzBORsLRJqTBByVRAxPWXaRUBuGIZdUPWfBQFv ICAgICAgICAgICAgICAgICAgICAgICAgICAgICAgIC ZmPYFiHOEfDHNpBGToQKYiYLIjZAUxYBYzWL1XABPmNIBtAPPkBVRhHIGbVUZdXYXyNEFmNSOlKSJlPA AgICAgICAgICAgICAgICAgICAgICAgICAgICAgICAgICAgICAgICAgICAgICAgICAgICAgICAgICAgIC WcGTFlOOAqAQ3QIUAxSSVjPSPpYJSwZRBjWYSdDDPw ICAgICAgICAgICAgICAgICAgICAgICAgICAgICAgICAgICAgICAgICAgICAgICAgICAgICAgICAgICAg YQEjZUVbWLYvFIRdMSUdEFEiCE1UQO78hVTxx5O9BGEbWO5axll/Nb1BKWokrkXxsEKlGA6RXuImAV6b bl1AFnGfQM9dzl8ALHiLOyWvS5B4nBTvVTHtOCVZFi HzF66uKIllIu30QPkiKLAsMzQxNEj4Ne7JWsFnL2boIFUwWfD9ELOsQxV5PBHbJiG4ZQJgLuBvOCReXR BjAKZnTTLHNLY5JUViHaWbTjVrRQPdTH7VLNBsB820fmWzKs6LJe8UQbYxAC7nel1BEqJlCGObFjfRPm n8XCozKS1PcPQrqAQiJvFsZGCNXoIdR6ant2GlAwWq OBXEOGpoPI0Mt2ScvHHiSLi+Hb8SLW8jx2OwNOdlYhOfXD4ajg9LNQmYDuPxN0HodWkySATbg1kxFTLd ZX1ojMToVLZ4WRVajqtanLwtBDIjOCIrmxydZ3OkeugzMMNpFQIpUJ1kUU0qETCbGYKcFrJzJECRFI2P GZHrZFXplAXeCXPlRWTKGQ5MJYgjXMU1QMWbsaOnzM WyUMhoAM2BAHWzlbRyQzRmJSADYGr+Nf5OUI3gd7UeRWgaAaLzQJ0rpp6LFTeMTdXyH1V4xVXzK1R9CV xpEz5GRQPuUPFuLucePCVFHPnyTA4INX3qemR4LT5CkRLcAIMxQQAjlMGbITs1B38yhAEsWTalFR8JHP A+Cristina+Cu9PJKOyGFLcGQRiGpEzITOEQjKgP6WbP5QD o0OiB0QcOS76yZlarvKqJPmbUG8IGV2qQXRxPCHZGV4PpOIcqQ7gahQjGHLeOWRLRkOeD90fbNAvNYVq ULLwCXJiUp6XTRKyB8TbglYxnIuwabDmVJDhCUYXCN3FBKeqkdVwjQBhlDfwJX44vYgfHU2XIw7LArTx AN4cwm1QuDYhXg6FHDYyME0AEAHoXSIpWYTvOUD9CV DcVjLlWOlpDZFmBGTeGLY8TKZmQXVzSG1AUsBrAUZqJVAiITjkFWEgXATnjv3VYYBtIEY4VBdeCxPtJK YoZHGwWTbhWCBwRDEqEUD8XPWrGXTyAI1ZBpPkYYDdLTH1MsIeUMYhFJBdev4ALXIrWAYuFMOhLPEgGM BxXXIqKVajJIBwGXX4MPUzNDTuDHZuUI9SMbJyVEKw WAfzXrLwXLVgSAYmdd8CHUGrJRRyKdU6KkTyNAGkYTJhVXpuXCBtISTfALCrLPRaKZIbKO9VCrIpRJVj UTB9XostIWMwPJViru8AVHQiEHFmRGb3CzTsQXHhLYGuGOwoZYVkAAV2Lmh2IRYrUSKpPJ0ENdUgQUSs JWt9LILnZEDnGHZaxn0PJIOpQYNiEYe3EHKbJGUzXM CgVNfsQLRqYYJhUXBnMPHmPFSyAW6SSvQnAIRpNuP0IEEbXKCaJRSzrx9EXGJkMURaVOZ4YtVhOXIuIT GbNLavIVEhMDH0CUV9AIOjXQRuWT2SFrCcHCGyLxNdHTEcIWCvHELvpi9PWHAaELKxBsU7UvVvKUUmKR WlRUngQRZjZEI6EBM7KTOoVWUbKW9LHxVaOGZfVzu0 MYbcXAWxNICnkq4YGQAdCVMsHcpaYqGbIVMiYJDeVFfuOKTnGSY5LyT7RBZzMLIcMI0HKyMbNELlYmr6 BKRhJRJlSHHsrd8WLQSpIWEoFHfsPKLfNRBvEOBvOCziVYXpGXMqYBFuIUMxVERhTN7XMxCdIFAnDQEu ZXHjPVRqEIBfdx0HTRVfMTF1OAJ5VtNjUXWkTPAmKH bgJKMdZVEtDJm6DOHfNYReOW6MBpNqGKDhTPJfMNUvGKLrZHQjgu2PYKAxHYX5RdRuFqEfOCIzAFQxAW s5vtVveBGsBEq7ZA2FH7XrkfFxDdOAZz8Ww222JPJrINLeXh6UI5xcTd1vKCRdCCLPHb3QIJx3KWKgFh NeUUgzTCTwBEBgSmQpVgUbOVY7IAWdNEHoFZA+IDw4 NGQ5FFJ0FXWbSaSfJgLqPQXyBzJbCNqwBLK0JUW0Lj6nUHXKHm4+CWjunJShbSlyYFUOSeDlJNS8LFvc JCZSNx9M ID Date Data Source [id number] 11/01/2020 11:36:26 AM EDT [facility] Name Value Range Interpretation Code Description Data Renetta rce(s) Supporting Document(s) Progress Note [facility] system DOZASd3dRlSDUiIv40/OKRfhLVZto7CeBQdfIQu8EHsxMWBmW1HcXMF6oD2uZUZ9EQqIVmUlPwZpLPQ2 lbm [file] nBHPRJ2ZXJKyZQuWnRzKexz3L8LuKK9HTbpq// [file] [id number]3MVbX0MSI8xHYjUh8NPoNsGlCFWwZnCQ5QFDh= ID Date Data Source [id number] 09/27/2020 04:17:00 PM EDT [facility] ([facility]) Name Value Range Interpretation Code Description Data Renetta rce(s) Supporting Document(s) Creatinine For GFR 0.88 mg/dL 0.70-1.30 [facility] ([facility]) Blood Urea Nitrogen 19 mg/dL 7-18 [facility] ([facility]) Glucose, Fasting 150 mg/dL 70-100 [facility] ([facility]) Glomerular Filtration Rate Laboratory test result [facility] ([facility]) <content>Units are mL/min/1.73 m2</content>
<content></content>
<content>Chronic Kidney Disease Staging per NKF:</content>
<content></content>
<content>Stage I & II GFR >=60 Normal to Mildly Decreased</content>
<content>Stage III GFR 30- 59 Moderately Decreased</content>
<content>Stage IV GFR 15-29 Severely Decreased</content>
<content>Stage V GFR <15 Very Little GFR Left</content>
<content>ESRD GFR <15 on BRIQUETTE [employer]</content>
<content></content> Sodium Level 141 meq/L 136-145 [facility] ([facility]) Chloride Level 107 meq/L 98-107 [facility] ([facility]) Potassium Serum 4.1 meq/L 3.5-5.1 [facility] ([facility]) Carbon Dioxide Level 27 meq/L 21-32 [facility] ([facility] Anion Gap 7 meq/L 8-16 [facility] ([facility]) Calcium Level 9.2 mg/dL 8.5-10.1 [facility] ([facility]) Ast/Sgot 5 U/L 7-37 [facility] ([facility]) Alt/SGPT 22 U/L 12-78 [facility] Alkaline Phosphatase 101 U/L 45-117 [facility] ([facility]) Bilirubin,Total 0.6 mg/dL 0.2-1.0 [facility] ([facility]) Total Protein 7.2 GM/DL 6.4-8.2 [facility] ([facility]) Albumin 4.2 GM/DL 3.2-5.2 [facility]) Albumin/Globulin Ratio 1.4 [facility] ([facility]) ID Date Data Source [id number] 09/06/2020 03:50:00 PM EST [facility] ([facility]) Name Value Range Interpretation Code Description Data Renetta rce(s) Supporting Document(s) Ceruloplasmin [Mass/volume] in Serum or Plasma 26.6 mg/dL 1 6.0-31.0 Normal (applies to non-numeric results) [facility] ([facility]) Performed at: - [facility] [id number] [employer] Test Grader: Js Marcelo MD, Phone: [phone] Performed at: [facility] [address] [id number] [employer] Test Grader: Santa Blackburn MD, Phone: [phone] ID Date Data Source [id number] 09/06/2020 03:50:00 PM EST [facility] ([facility]) Name Value Range Interpretation Code Description Data Renetta rce(s) Supporting Document(s) Iron (Fe) 85 ug/dL 65-175 Normal (applies to non-numeric resul ts) [facility] ([facility]) Percent Saturation 30.4 % 19.7-50.0 Normal (applies to non-numer ic results) [facility] ([facility]) Total Iron Binding Capacity 280 ug/dL 250-450 Norm al (applies to non-numeric results) [facility] ([facility]) ID Date Data Source [id number] 09/06/2020 03:50:00 PM EST [facility] ([facility]) Name Value Range Interpretation Code Description Data Renetta rce(s) Supporting Document(s) Liver-Kidney Microsomal Lelo Laboratory test result 0.0-20.0 Normal (applies to non-numeric results) [facility] ([facility]) Negative 0.0 - 20.0 Equivocal 20.1 - 24.9 Positive >24.9 . LKM type 1 antibodies are detected in patients with autoimmune hepatitis type 2 and in up to 8% of patients with chronic HCV infection. ID Date Data Source [id number] 09/06/2020 03:50:00 PM EST [facility]) Name Value Range Interpretation Code Description Data Renetta rce(s) Supporting Document(s) Cytoplasmic Neutrop AB Anca-C Laboratory test result Normal (applies to non- numeric results) [facility] ([facility]) Perinuclear AB Anca-P Laboratory test result Nor mal (applies to non-numeric results) [facility] ([facility]) The presence of positive fluorescence ex hibiting P-ANCA or C-ANCA patterns alone is not specific for the diagnosis of Ally's Granulomatosis (WG) or microscopic polyangiitis. Decisions about treatment should not be based solely on ANCA IFA results. The International ANCA [employer] Consensus recommends follow up testing of positive sera with both ME- 3 and MPO-ANCA enzyme immunoassays. As m any as 5% serum samples are positive only by EIA. Ref. AM J Clin Pathol 1999;111:507-513. Anca-Atypical Laboratory test result Normal (applies t o non-numeric results) [facility]) The atypical pANCA pattern has been obse rved in a significant percentage of patients with ulcerative colitis, primary sclerosing cholangitis and autoimmune hepatitis. ID Date Data Source [id number] 09/06/2020 03:50:00 PM [facility]) Name Value Range Interpretation Code Description Data Renetta rce(s) Supporting Document(s) Mitochondria Ab [Units/volume] in Serum Laboratory test result 0 .0-20.0 Normal (applies to non-numeric results) [facility]) Negative 0.0 - 20.0 Equivocal 20.1 - 24.9 Positive >24.9 . Mitochondrial (M2) Antibodies are found in 90-96% of patients with primary biliary cirrhosis. ID Date Data Source [id number] 09/06/2020 03:50:00 PM EST [facility]) Name Value Range Interpretation Code Description Data Renetta rce(s) Supporting Document(s) Antinuclear Antibodies Direct Laboratory test result Abnormal (applies to non- numeric results) [facility] ([facility]) PARANORMAL INVESTIGATOR Antibodies 1.1 AI 0.0-0.9 Above high normal [facility] ([facility]) Anti Double Strand-Dna AB 1 IU/ml 0-9 Normal (applies to no n-numeric results) [facility] ([facility]) <content>Negative <5</content>
<content>Equivocal 5 - 9</content>
<content>Positive >9</content>
<content></content> Hernandez Antibodies Laboratory test result 0.0-0.9 Normal ( applies to non-numeric results) [facility] ([facility]) Sjogren's Anti SS-B Laboratory test result 0.0-0.9 Vannessa l (applies to non- numeric results) [facility] ([facility]) Sjogren's Anti SS-A Laboratory test result 0.0-0.9 Vannessa l (applies to non- numeric results) [facility] ([facility]) Chad Comment Laboratory test result Normal (applies to non- numeric results) [facility] ([facility]) . Autoantibody Disease Association Condition Frequency -------- [...] (anti-Hernandez) SLE 15 - 30% ------- --------- PARANORMAL INVESTIGATOR Mixed Connective Tissue Disease 95% (U1 nRNP, SLE 30 - 50% anti-ribonucleoprotein) Polymyositis and/or Dermatomyositis 20% -------- --------- Scl-70 (antiDNA Scleroderma (diffuse) 20 - 35% topoisomerase) Crest 13% -------- --------- Christine-1 Polymyositis and/or Dermatomyositis 20 - 40% -------- --------- Centromere B Scleroderma - Crest variant 80% ID Date Data Source [id number] 09/06/2020 03:50:00 PM [facility] ([facility]) Name Value Range Interpretation Code Description Data Renetta rce(s) Supporting Document(s) Tissue transglutaminase IgA Ab [Units/volume] in Serum Labor atory test result 0-3 Normal (applies to non-numeric results) [facility]) Negative 0 - 3 Weak Positive 4 - 10 Positive >10 . Tissue Transglutaminase (tTG) has been identified as the endomysial antigen. Studies have demonstr- ated that endomysial IgA antibodies have over 99% specificity for gluten sensitive enteropathy. IgA [Mass/volume] in Serum or Plasma 99.5 mg/dL 70-400 Normal (applies to non- numeric results) [facility] ([facility]) 09/13/20 (FriSep 13) 12:58 PM RACHEL CURIEL ok ID Date Data Source [id number] 09/06/2020 03:50:00 PM [facility] ([facility]) Name Value Range Interpretation Code Description Data Renetta e(s) Supporting Document(s) White Blood Count 6.2 10 4.0-10.0 Normal (applies to non-numeri c results) [facility] ([facility]) Red Blood Count 4.31 10 4.30-6.10 Normal (applies to non-numeric results) [facility]) Hemoglobin 12.9 g/dL 13.5-17.5 Below low normal [facility] ( [facility]) Mean Corpuscular Hemoglobin 29.9 pg 27.0-33.0 Norm al (applies to non-numeric results) [facility]) Hematocrit 38.3 % 42.0-52.0 Below low normal [facility] ( [facility]) Mean Corpuscular Volume 88.9 fl 80.0-96.0 Normal ( applies to non-numeric results) [facility]) Red Cell Distribution Width 14.8 % 11.5-14.5 Above high normal [facility]) Mean Corpuscular HGB Conc 33.7 g/dL 32.0-36.5 Normal (applies to non-numeric results) [facility] ([facility]) Platelet Count, Automated 234 10 150-450 Normal (applies to non-numeric results) [facility] ([facility]) Neutrophils % 52.8 % 36.0-66.0 Normal (applies to non-numeric re sults) [facility] ([facility]) Lymph % 34.1 % 24.0-44.0 Normal (applies to non-numeric resul ts) [facility] ([facility]) [place] % 8.0 % 2.0-8.0 Normal (applies to non-numeric resul ts) [facility]) Eos % 3.3 % 0.0-3.0 Above high normal [facility] ([facility]) Baso % 1.0 % 0.0-1.0 Normal (applies to non-numeric resul ts) [facility] ([facility]) Nucleated Red Blood Cell % 0.0 % 0-0 Normal (applies to n on-numeric results) [facility] ([facility]) Immature Granulocyte % 0.8 % 0-3.0 Normal (applies to non-n umeric results) [facility]) Lymph # 2.1 10 1.5-5.0 Normal (applies to non-numeric resul ts) [facility] Neutrophils # 3.3 10 1.5-8.5 Normal (applies to non-numeric re sults) [facility] ([facility]) [place] # 0.5 10 0.0-0.8 Normal (applies to non-numeric resul ts) [facility] ([facility]) Baso # 0.1 10 0.0-0.2 Normal (applies to non-numeric resul ts) [facility]) Eos # 0.2 10 0.0-0.5 Normal (applies to non-numeric resul ts) [facility]) ID Date Data Source [id number] 09/06/2020 03:50:00 PM EST [facility] ([facility]) Name Value Range Interpretation Code Description Data Renetta e(s) Supporting Document(s) Inr 1.02 Normal (applies to non-numeric resul ts) [facility] ([facility]) THERAPUTIC HUMAN INR VALUES INDICATIONS NORMAL RANGES PROPHYLAXIS/TREATMENT OF: VENOUS THROMBOSIS 2.0-3.0 PULMONARY EMBOLISM 2.0-3.0 PREVENTION OF SYSTEMIC EMBOLISM FROM: TISSUE HEART VALVES 2.0-3.0 ACUTE MYOCARDIAL INFARCTION 2.0-3.0 VALVULAR HEART DISEASE 2.0-3.0 ATRIAL FIBRILLATION 2.0-3.0 MECHANICAL VALVES(HIGH RISK) 2.5-3.5 RECURRENT MYOCARDIAL INFARCTION 2.5-3.5 Prothrombin Time 13.6 s 12.5-14.3 Normal (applies to non-numeric results) [facility]) ID Date Data Source [id number] 09/06/2020 03:50:00 PM [facility]) Name Value Range Interpretation Code Description Data [facility] Supporting Document(s) Alt/SGPT 67 U/L 12-78 Normal (applies to non-numeric resul ts) [facility] ([facility]) Ast/Sgot 16 U/L 7-37 Normal (applies to non-numeric resul ts) [facility]) Alkaline Phosphatase 114 U/L 45-117 Normal (applies to non-num sagar results) [facility]) Bilirubin,Total 0.7 mg/dL 0.2-1.0 Normal (applies to non-numeric results) [facility]) Bilirubin,Direct 0.2 mg/dL 0.0-0.2 Normal (applies to non-numeric results) [facility]) Total Protein 6.9 GM/DL 6.4-8.2 Normal (applies to non-numeric re sults) [facility]) Albumin/Globulin Ratio 1.3 Normal (applies to non-n umeric results) [facility]) Albumin 3.9 GM/DL 3.2-5.2 Normal (applies to non-numeric resul ts) [facility]) ID Date Data Source [id number] 09/06/2020 03:50:00 PM EST [facility] Name Value Range Interpretation Code Description Data Renetta rce(s) Supporting Document(s) Hepatitis C Virus Lelo Index Laboratory test result Normal (applies to non- numeric results) [facility] ([facility]) Hepatitis B Core Antibody Igm Laboratory test result Normal (applies to non- numeric results) [facility] ([facility]) Hepatitis B Surface Antigen Laboratory test result Normal (applies to non- numeric results) [facility] ([facility]) Hepatitis A Antibody Igm Laboratory test result Normal (applies to non-numeric results) [facility] ([facility]) ID Date Data Source [id number] 09/01/2020 03:21:06 PM [facility] Name Value Range Interpretation Code Description Data Renetta rce(s) Supporting Document(s) Progress Note [facility] system CQUKEl9zFkLEUoLo66/VHExfJBIpc2NjFOcaUXn9EJcfTWYkD4XoSMV1uL3mJLQ9CNiTBtIlObStDsO5 [facility] [file] AgICAgICAgICAgICAgICAgICAgICAgICAgICAgICAgICAgICAgICAgICAgICAgICAgICAgICAgICAgIC AgICAgICAgICAgICANCiAgICAgICAgICAgICAgICAgICAgICAgICAgICAgICAgICAgICAgICAgICAgIC AgICAgICAgICAgICAgICAgICAgICAgICAgICAgICAg ICAgICAgICAgICAgICAgICAgICAgICANCiAgICAgICAgICAgICAgICAgICAgICAgICAgICAgICAgICAg ICAgICAgICAgICAgICAgICAgICAgICAgICAgICAgICAgICAgICAgICAgICAgICAgICAgICAgICAgICAg ICAgICANCiAgICAgICAgICAgICAgICAgICAgICAgIC AgICAgICAgICAgICAgICAgICAgICAgICAgICAgICAgICAgICAgICAgICAgICAgICAgICAgICAgICAgIC AgICAgICAgICAgICAgICANCiAgICAgICAgICAgICAgICAgICAgICAgICAgICAgICAgICAgICAgICAgIC AgICAgICAgICAgICAgICAgICAgICAgICAgICAgICAg ICAgICAgICAgICAgICAgICAgICAgICAgICANCiAgICAgICAgICAgICAgICAgICAgICAgICAgICAgICAg ICAgICAgICAgICAgICAgICAgICAgICAgICAgICAgICAgICAgICAgICAgICAgICAgICAgICAgICAgICAg ICAgICAgICANCiAgICAgICAgICAgICAgICAgICAgIC AgICAgICAgICAgICAgICAgICAgICAgICAgICAgICAgICAgICAgICAgICAgICAgICAgICAgICAgICAgIC AgICAgICAgICAgICAgICAgICANCiAgICAgICAgICAgICAgICAgICAgICAgICAgICAgICAgICAgICAgIC AgICAgICAgICAgICAgICAgICAgICAgICAgICAgICAg ICAgICAgICAgICAgICAgICAgICAgICAgICAgICANCiAgICAgICAgICAgICAgICAgICAgICAgICAgICAg ICAgICAgICAgICAgICAgICAgICAgICAgICAgICAgICAgICAgICAgICAgICAgICAgICAgICAgICAgICAg ICAgICAgICAgICANCiAgICAgICAgICAgICAgICAgIC AgICAgICAgICAgICAgICAgICAgICAgICAgICAgICAgICAgICAgICAgICAgICAgICAgICAgICAgICAgIC AgICAgICAgICAgICAgICAgICAgICANCjw/bMPcW2noaXBplvI2R1vjNd0RNb4PKL9wp0YdEPQcDLohbx OqEypYGmBxFWXoNbjCHwe9EXvuUJ0ElHIxK9FyU4Ut GRimZX7NPCVeTJDnbWBjLVZwNVZqLoD8OHFcIDuiER8NwTLaERvgYVYwEMErGsRgJQYnDYQzNDMcJAZz XWLYDUSqHNBzFoSoHNChYMHfRNwtYBBUXR3RLgItK3IibK15LLuPZg2+UItgrsTwJdfMKqSvMAUnb5Wq AEh0LU3IQQQhKyrjq8WyOcTcRHVKOKnnNK0SCPK9HK IuQQOxMs2MPLKtD621qaDmCS6QAo0TTdGoQC3vwl0YPeQyPGHxChfGVcr4QMatSL7EiSHvTMbJrb0hiy IvzqRHl4VzscKilFWJSK7lKDfjHJKUZLdzbnRvifc1y33tOIJZCKJ5BPPsRnLtGzPpNMRjGmu5VTGCJG sAWpPhO7Vkx9XjTrF3FWReDrFlMPutVWUzAbW5EH92 sWtbYI7CXYHuYPPmJP94IBYfABCbQg6SYe7JYdWkEN8xhz9JOxRtLRMyUpdTHws6WEwoND8PqPOrR0Gh pMHab9pDXjCpV9PCLXW2YTCpAg9EZOAeAtQjFHJsBSelGT9xWBVzWYQClKzkqdA3RV7CIU9zniBdOL4W EeSmCp0iKv9JUpSzL7NnG1ZyMKKnJUOWHTwkEX2PGH gpIA5eST0Si9GViMUmyE1nqb5HTUTrENYsOocbyj1ZYfhhT0T7eAytTPFsErGaRPFQWCcyJO9HHRWmYP B1OVUkIJZyPTVFZfHkV17hAS1VY6Zfa19iVtL9GPMhRhWyEJazAQ90mOwfaaSfmTFzmXwgNO2GAr7+DQ plbmRvYmoNCnhyZWYNCjAgMzQNCjAwMDAwMDAwMDAg TkA6IgInTc5JDDLoVBWyKWGtJvIhCZPlIUVmNObbRAZgBZNiJZN2CGLoJUXaKP8XEgMkUIRzMKI8OSnb KYOrJECynn6JVSYbUNBaPFS5ImGeBXFqNSFxOVipSYLtDAZ7HTFkLWZzOBAbQG5OKrQqMMUvAXCjZnRq MHLfRLWsfj6BSPAgUPAxUQgeIvKlARNfWCVuZPscGV VyQAV5YFNsYUViZAEuYJ0DBjOcVTEsUQM2XrSqRGDoYQFggw7PLVSpYRMbKsc8QIXySMHbYORfZPpdWT TrSSS7AFBjLUWuXONxOI3LOhWnUSBoZYR6VXYuUTRtNYJjog0SFUFeXKDvHthsScQlGJShDUHrJEitSA TnNQG9XEWiGPMsSBGhDB4XBmOsKWDnXiV3QVXhHMUz CNVsns6OKJToELCbWGgxYFPlGMFxTZVaJBxmJULsZQI4AuzjVHHbGPMmRO5PCmXiECBlQrR3BLweMEDx HQQnuk4SZJXxBVDcVDm8PPAqJOMqMSXkDNxcNHLcWYG7XOL3IPKwPSUmCC5LKxBeJXWpUeHxJludCPDn JFLkcf5VPLMnOWNbWnL0FzEoBDNnFPJpYQjsPVTaBZ W3KMw6CMEiEVDvHM2GQaJcOFGqCmq2BCfuLGVmEKDguf2JQSCwCRDvHAXgQeEvGUSlNOBcAAriQNYgFQ Q1CGKhJRHkRVNyRH1JStQxSFPhAko7UBBrWLHuBVRkaz7HHKMgYZTfSZheUBZcPCEtYUWxFImkQTOeII QyGBH9VXPqWMOtST8BObQdPDPsERL9OBpcUQGrWMSq zt6AGRKgCYA5EPhkGoFcVKFtZGRwKPpaDQAwJISeZAx9VLNsMYTrEG7ZWjTlTEFxXIYzAEKzCAMrUHAv tt0OnHJwkOikcp9FHVzYNe2XwGovNFQ7GOrsRg2tqLEdToIzYFODJn4OoyWaHWOxKXXMJFkaAVQwODLe OFH9OpCdQYGaNKP4IHP7BjO9CGAfSBc4PDFnAXYfUo R3LgN3UYZiMJW1LgSwAkagRBzgPVBlXHP8AiDfHHY1RHM+VI3vBTn+Zi4Ch7ZitnX7eeJpEZb9NbQ1Xb 1YNTAML7GRCq== ID Date Data Source [id number] 09/01/2020 03:21:01 PM [facility] Name Value Range Interpretation Code Description Data Renetta rce(s) Supporting Document(s) Progress Note Health system EXGTRv7dOnWNLtGk35/DMVziQBBtg8MnCLoqAVf1ILgfSWUsD9LbMQJ4eI3wCUQ5WHgVXyVeBpCxZdN7 lbm [file] AgICAgICAgICAgICAgICAgICAgICAgICAgICAgICAgICAgICAgICAgICAgICAgICAgICAgICAgICAgIA 0KICAgICAgICAgICAgICAgICAgICAgICAgICAgICAg ICAgICAgICAgICAgICAgICAgICAgICAgICAgICAgICAgICAgICAgICAgICAgICAgICAgICAgICAgICAg JFTeLEFxGMFyYT9VEFMlNUQgEJDyPEIwJGEiEADcMRCiGQXdPYKkGJMiYXJrWTReMBOwFOMjYJElLHPb ICAgICAgICAgICAgICAgICAgICAgICAgICAgICAgIC OlJEIyJYRmXLNaLBWwIHMlVUFkKT7OJTSeRDQpJQPgCARjDAWrPQXxUNDsUIFvQLOjKSXxCPVmHUQeYG AgICAgICAgICAgICAgICAgICAgICAgICAgICAgICAgICAgICAgICAgICAgICAgICAgICAgICAgICAgIC TwNP3QXOAuDWIjLEXtBZBbNOUaQQCwEKPrLOTtRDCh ICAgICAgICAgICAgICAgICAgICAgICAgICAgICAgICAgICAgICAgICAgICAgICAgICAgICAgICAgICAg BILjHNVhGGHiPEDgNI5IKYKwPENhLQBxTKFrWFXuBDBfTFLgJGDfYSMrRRDlRGIzCKKvBKAsGUWhDPZb ICAgICAgICAgICAgICAgICAgICAgICAgICAgICAgIC ZnDGNyHKEmLTIeYWRvWFBlMNMbXWJyVR2RZMBoCRKxKRKgRMVcGDPhWZNfMJHrTZMmHWEnKJBrBWIrPB AgICAgICAgICAgICAgICAgICAgICAgICAgICAgICAgICAgICAgICAgICAgICAgICAgICAgICAgICAgIC ZrZJUgXJ2YZFCuDEGxQTKgDOTyAKJbRNRnHGBpNAEn ICAgICAgICAgICAgICAgICAgICAgICAgICAgICAgICAgICAgICAgICAgICAgICAgICAgICAgICAgICAg TZSfMOIgXWLaMSSzFBFoDB2PHXZhRTWjURWmTKCkNFThFEJnYVTaOQMgAEFnBDTlMPQbSMOmFFUcBOKm ICAgICAgICAgICAgICAgICAgICAgICAgICAgICAgIC BlLXXiRUWsUTYmPQIeLQItHPYmJAEuICMaHO9KULZyHLZsSVVhAVLyWTKcKXWoOQUjIOOxSQFhLKGfWB AgICAgICAgICAgICAgICAgICAgICAgICAgICAgICAgICAgICAgICAgICAgICAgICAgICAgICAgICAgIC XlUAClILMpOH5CUF98kRBht4H4QZEgCN9jwhb/Pg0K SDlyuhGneAOkTA5MZiUsSU4hnf1QVsOwWP0xps3NTAcFTuKuJ2E5qYDeJHPjGMSLNbVlF00dOExfVh98 VAbjRSOwUaVcDNa9Ye3EMpZbX7dwLKZlVmK6GWBiObRpCUwxKS2Av5JcgWJzIZe+Jc5HUS2dm0TjEZtu MvDwXF6wxz0HKRtSDuTaX0WguxF7VNErZCGhNl1TOH TlIREpxARcLxRuEVSCUyQpV9VanD68EMNPPe3+IYvujpGnDyxMYqWbFBXnz9NuBXl1PO6MPQMpCGw0lY CaZPYrG6Btf7RlUs60IRLiIguwHNqqIXWZQZf2tbE5YJIPVO7qNVKjUf8kDw1bTNQgNJPcCnQuYAENJH 1UPVUgMXWmmZAxYFZcBZPPEP6WOSfpMVW1IUObwuNh iIYiTUuzFD9ZBSRqyuJrQvXnSZBKKHw+Ht7VMV0ad5LpRLvgPWEuPP4lnv0SJPaJRwEdW8D2pODsW1W6 MZbkEi7UTGAmOQXlJnPtZSLZBQqiAB1ZIZ3sfdY8CE9MmNHyOPLrBHBcgKAjKSu2L63eqWAlNIibDC8V ICA+Cristina+Gp8RDEXzYSYaSOEeTgSsIYPBLgPvU0DaM1 RGh9EgG8DoJO56vGukmjAfQOjjAD7NJF8hSWJaHJOVWK2HoKUtrG8xdzWpNcMfAVXXXnYvB41gaRTuOQ YdLVNcBUUlPg5JREOdG1XgkwErwPmajkGkLRMxWLUUXD5JGSnvxoVakHVscGdyCG98tBjdKS1KSc4VTj QhER3hom5CoUJkZb3LEABrMD8DQTBzZNAqQWQfMRZ4 MGTwDeGqVAwcXZWzHGTkDMP7AMTyYMUhRK1RXnUqUIRkHZh3MCqwLZEdJTSbas0HOHJmLIHrCTMoPsHr UFClXYCgFTniCYGzFZPvNWH2UYEhVUUeTE5GAgBqFCUeBLLwLQqaXJYtNCDcmv5ISUYyFHLfUbWiQmUa VZNpPNVbUGqlTXVrZYYzFzeoFJGkWYIlMV8VApQqWE IjJXR1QbmrKMJqWZNslt0BEAHaQKLjOqG0WwHgZGNkONBkLSsmETLqHKS8BcC4ZTObQVLaAG1OEwKfLY ZdDGJ7BFhdMCYzTMSayg5UHVVtMLYhYVFzOKJdBIJhXNExHTipGMQpFTV6LrA4KANbCJJlME1LDyZtIC JtSFU6AjGvEIFxKXMydx6TGCEoEABgXvp5UDMhSPWe PSJkBBmgQVFjBVF3YOW9AGUcFDCpPX0BPsQfEIRtAHoyScQeOUEqIEPcsk9SWDNwIGLmLJBeNIUwKMWi XAXfHXokRBOwJIK9Jbc4OHSyQCNqDE6BRgWjGXScMQj9OhPgDQEwBGGpql3QKPZzIAFrZVp0LzAcSYTz TJTnFThsNXCuWKXzIOXiDFLtXPZeNC4JTmYcAINeOh U7YPGuGMPuINDnxt3CLOSbYXZcVXQbYUYaRDZkELFiDEl2khWchRJjOLj0WY1YQ4VozwEuTgDKQe6Xi9 74DSN2LMMbJv8DM5zgZv1eYEQfDHMYXs8ICSg4IqLaLZZaYKEgMsL4RXs7LWWyI9BbEYOyNOZyNhEgPM E+RJw3NVM7SEEkIXYcNYhrQrNlFIZdDFIaRCYbN4A2 UUFbTQ5sEYOCWt9+VBqecKZabBivGDPHRgFgQEhcYBucGMRREt5O ID Date Data Source [id number] 07/13/2020 01:35:00 PM EST [facility] Name Value Range Interpretation Code Description Data Renetta rce(s) Supporting Document(s) Respiratory pathogens identified [Type] in Nasopharynx by Probe and target amplification method SARS-CoV-2 (COVID 19) [facility] This lab was ordered by [facility] a nd reported by [facility]. ID Date Data Source [id number] 07/04/2020 12:00:00 AM EST [facility] Name Value Range Interpretation Code Description Data Renetta rce(s) Supporting Document(s) Carestart Rapid COVID Antigen Test [facility] This lab was reported by [facility]. ID Date Data Source [id number] 06/04/2020 03:54:00 PM EST [facility] Name Value Range Interpretation Code Description Data Renetta rce(s) Supporting Document(s) [facility] This lab was ordered by [facility] a nd reported by [facility]. ID Date Data Source CBC with Differential 05/24/2020 12:00:00 AM EST eCW1 ([facility]) Name Value Range Interpretation Code Description Data Renetta rce(s) Supporting Document(s) 5.3 4.0-10.0 WHITE BLOOD COUNT eCW1 ([facility]) 4.70 4.30-6.10 RED BLOOD COUNT eCW1 ([facility]) 14.2 13.5-17.5 HEMOGLOBIN eCW1 ([facility]) 33.8 32.0-36.5 MEAN CORPUSCULAR HGB CONC [facility] 42.0 42.0-52.0 HEMATOCRIT eCW1 ([facility]) 30.2 27.0-33.0 MEAN CORPUSCULAR HEMOGLOB IN eCW1 ([facility]) 89.4 80.0-96.0 MEAN CORPUSCULAR VOLUME e CW1 ([facility]) 8.8 0.0-5.0 MONO % eCW1 ([facility]) 12.5 11.5-14.5 RED CELL DISTRIBUTION WID TH eCW1 ([facility]) 51.8 36.0-66.0 NEUTROPHILS % eCW1 ([facility]) 34.5 24.0-44.0 LYMPH % eCW1 ([facility]) 184 150-450 PLATELET COUNT, AUTOMATED eCW1 ([facility]) 2.8 1.5-8.5 NEUTROPHILS # eCW1 ([facility]) 0.9 0.0-1.0 BASO % eCW1 ([facility]) 0.5 0.0-0.8 MONO # eCW1 ([facility]) 3.6 0.0-3.0 EOS % eCW1 ([facility]) 1.8 1.5-5.0 LYMPH # eCW1 ([facility]) 0.1 0.0-0.2 BASO # eCW1 ([facility]) 0.2 0.0-0.5 EOS # eCW1 ([facility]) ID Date Data Source [id number] 05/24/2020 12:00:00 AM EST eCW1 ([facility]) Name Value Range Interpretation Code Description Data Renetta rce(s) Supporting Document(s) Hemoglobin A1c/Hemoglobin.total in Blood 6.7 HEMOGLOBIN A1c W1 ([facility]) ID Date Data Source LIPID PANEL (CARDIAC RISK) 05/24/2020 12:00:00 AM EST eCW1 ( [facility]) Name Value Range Interpretation Code Description Data Renetta rce(s) Supporting Document(s) Triglyceride [Mass/volume] in Serum or Plasma by calculation 84 <150 TRIGLYCERIDES LEVEL eCW1 ([facility]) Cholesterol in HDL [Moles/volume] in Serum or Plasma 35 >40 HDL CHOLESTEROL eCW1 ([facility]) Cholesterol [Moles/volume] in Serum or Plasma 119 <200 CHOLESTEROL LEVEL eCW1 ([facility]) 84 NON-HDL-C eCW1 ([facility]) Cholesterol in LDL [Mass/volume] in Serum or Plasma by calculation 67 <100 LDL CHOLESTEROL eCW1 ([facility]) 3.400 <5 CHOLESTEROL RISK RATIO eCW1 ([facility]) ID Date Data Source FREE T4 & TSH PANEL 05/24/2020 12:00:00 AM EST eCW1 ([facility]) Name Value Range Interpretation Code Description Data Renetta rce(s) Supporting Document(s) 2.800 0.358-3.740 eCW1 ([facility]) 1.02 0.76-1.46 eCW1 ([facility]) ID Date Data Source Comprehensive Metabolic Profile (CMP) 05/24/2020 12:00:00 AM EST eCW1 ([facility]) Name Value Range Interpretation Code Description Data Renetta rce(s) Supporting Document(s) 109 70-100 GLUCOSE, FASTING eCW1 ([facility]) 14 7-18 BLOOD UREA NITROGEN eCW1 ([facility]) > 60.0 >56 GLOMERULAR FILTRATION RATE eCW 1 ([facility]) 110 98-107 CHLORIDE LEVEL eCW1 ([facility]) 1.00 0.70-1.30 CREATININE FOR GFR eCW1 ([facility]) 4.1 3.5-5.1 POTASSIUM SERUM eCW1 ([facility]) 143 136-145 SODIUM LEVEL eCW1 ([facility]) 8.6 8.5-10.1 CALCIUM LEVEL eCW1 ([facility]) 10 7-37 AST/SGOT eCW1 ([facility]) 28 21-32 CARBON DIOXIDE LEVEL eCW1 ([facility]) 27 12-78 ALT/SGPT eCW1 ([facility]) 3.8 3.2-5.2 ALBUMIN eCW1 ([facility]) 1.4 ALBUMIN/GLOBULIN RATIO eCW1 ([facility]) 0.7 0.2-1.0 BILIRUBIN,TOTAL eCW1 ([facility]) 6.6 6.4-8.2 TOTAL PROTEIN eCW1 ([facility]) 93 45-117 ALKALINE PHOSPHATASE eCW1 ([facility]) ID Date Data Source [id number] 04/20/2020 04:48:22 PM EDT [facility] Name Value Range Interpretation Code Description Data Renetta rce(s) Supporting Document(s) [facility] EHKNRf8lVrDPDvBs13/CXTvmMAQii1GfAOgzJSf6YCheMUIiC1JaUCB5yD2rPVF8WXkKRlYyEbVrXDK3 lbm [file] ICAgICAgICAgICAgICAgICAgICAgICAgICAgICAgIC AgICAgICAgICAgICAgICAgICAgICAgICAgICAgICAgDQogICAgICAgICAgICAgICAgICAgICAgICAgIC AgICAgICAgICAgICAgICAgICAgICAgICAgICAgICAgICAgICAgICAgICAgICAgICAgICAgICAgICAgIC AgICAgICAgICAgICAgDQogICAgICAgICAgICAgICAg ICAgICAgICAgICAgICAgICAgICAgICAgICAgICAgICAgICAgICAgICAgICAgICAgICAgICAgICAgICAg ICAgICAgICAgICAgICAgICAgICAgICAgDQogICAgICAgICAgICAgICAgICAgICAgICAgICAgICAgICAg ICAgICAgICAgICAgICAgICAgICAgICAgICAgICAgIC AgICAgICAgICAgICAgICAgICAgICAgICAgICAgICAgICAgDQogICAgICAgICAgICAgICAgICAgICAgIC AgICAgICAgICAgICAgICAgICAgICAgICAgICAgICAgICAgICAgICAgICAgICAgICAgICAgICAgICAgIC AgICAgICAgICAgICAgICAgDQogICAgICAgICAgICAg ICAgICAgICAgICAgICAgICAgICAgICAgICAgICAgICAgICAgICAgICAgICAgICAgICAgICAgICAgICAg ICAgICAgICAgICAgICAgICAgICAgICAgICAgDQogICAgICAgICAgICAgICAgICAgICAgICAgICAgICAg ICAgICAgICAgICAgICAgICAgICAgICAgICAgICAgIC AgICAgICAgICAgICAgICAgICAgICAgICAgICAgICAgICAgICAgDQogICAgICAgICAgICAgICAgICAgIC AgICAgICAgICAgICAgICAgICAgICAgICAgICAgICAgICAgICAgICAgICAgICAgICAgICAgICAgICAgIC AgICAgICAgICAgICAgICAgICAgDQogICAgICAgICAg ICAgICAgICAgICAgICAgICAgICAgICAgICAgICAgICAgICAgICAgICAgICAgICAgICAgICAgICAgICAg ICAgICAgICAgICAgICAgICAgICAgICAgICAgICAgDQogICAgICAgICAgICAgICAgICAgICAgICAgICAg ICAgICAgICAgICAgICAgICAgICAgICAgICAgICAgIC EqOESbZTCpRFUuEIWzJFAcSCMyNLYpRYMuALTpISFiRWMrJVBrQCJlYRm6I4wkDAYfTMQpJN0vDMl7Th 8+ZEgOOgVoRKL9vjLkcC5MMP3xn7DaJRkxQHIol3TjAKb6AD9QUCHfVIigQH5MTBonkp0SEXAwNFAovI VCj1dgTtLrSPS6XZJePipiGB4ROQVxJ8ghiuZsROQw GZAGMHsfAFNBWXpbSGYOTOPeZWRhIhHuHkUmXJUaOLZoHUGCMFQ2VKPpHiKrAUHeMDYaVvQxWNDBJZ8M MuUnM4LesB15ENjLRv0+GXlmmyXuYlgVKsN5IZUoa3MtDQy7ZL5KAEXcOmuch6HeXxmyLVTHWEwkJW7S QUG2SHY9TTRbWl7XZDErI117hhNrPS9RWt2ANvXvTN 3kax5ZRhfnTOQpBusBAht7COddZP6BzUFlULySgv1nzrFhzvJJc9VfxxSnsLCGES8sQExqFVECJYP4jd mmfPffMYXnHOTdJAZxTJAxUnTpOWGgCTjuAFUAEZiGUsPgE9Izk8QlBmN2JZGcXhTqAYbcLIInThV2WW 19fUoxNM8JLXLdHMMeYL87ENC6DTGqNe7GHa8OEuHz IR2cmt7HSRHnXOKoEvqWVri4PYbhQS5MmKCgS0BtcJLgu5aLJlCrS5VOULN2OOCnSz9GIYFmXiBiZVBl GXlcOB3sWHKeTRJRwOrbaqW1FT1YVT6obwTkFM6MBiEcSc5fGa9WNeFxT0AcQ5NxWVRjNABWVJoiTJ3K YSplPT5zFZ2Rw4RDeFEljB8jyk1VRLGsEFNkBbmopx 0GRwwvR0H3jNciAPMqSjdeZYBBJOkrFK9JPVIeRLI2GAZrObHnKQJVTtZmL50aZY4BR9Fhk50aUrI2LB HwGvLfKSlmWC31hMmfqjSjaYMuyWnhJT3OKd9+DQplbmRvYmoNCnhyZWYNCjAgNDENCjAwMDAwMDAwMD CgGjV3KmPqYm3LIDNsZFDoYZXhUkDdABNoUPCeWQsb DAXxQEY1MBcxHNNxXNJcJW8RAcWzIPTvIZc3IHlbYYBdNAOkde9DGAFzLJThEKU1RyZoMOKkSLAaENgk KRKgYJG3OQu8BFEgZHFhAW0BLuKsMOKmQHF8DCyqMFLdFNLsmr3OILMeVETxXSX6KfKjMUToLUGpBFcq EAOfOGS4UOmiYFYzMRYnAA7ORxNpCMPcBTBsTHVhJA QjPFAyvn4JFKYvPTJnMVA6NLRvZLKhQCZfGScvDRQzZWA7DBL7YBEeAFAkCW3AUfCeCPGuHRZ9LqFtAQ MbIOOiue1FEQImPAOyWLJaCuPxXTQpJIXsRWegCHWfCWL4BnGyGUTeZUNhOS9URtSxPQHnRjP1QlilHA WxVJBjtj9BJVZfIBLrERU4MDNdLFEtRXZtBSenVPHt CVXdRKTlIDEcQEQkVS6WTmUrRFYnMkDqVREgPCUcVOSqvl2ECSTyRRXuRslnDHDtOJQfACFuFLriMBNy KEN8WKN9NTVjYXQeKV9YGnSgEBSzBnl5TOKpFQBaZOOycj4IXCGnIXEyKJO7SYGfURQyAFTaSRgvPTMe IMNmBjEtNXFsEKApET5NTxCiXUPhQzH3RNznQDHfDA Dfut4DIECiXSBjFBJeNCLyXTDyAXPkQWysRIBvVWNgZCdbXTLkAJEeYW4QKkVrAQTlFpQmUKWjCMIdSN Bxmd5VAEIrBISwWhV4QUDoTGKeMIEkFMisJADgFLQlRFOnFHBqGSHcQJ3QMcDlQXYiHVAwPsXzGYJeWN Npnf4LQJKyURF6BYV9BTEbLSNfYSOgZKwxRMQpBOK3 QKq3RRHqEHEjWL7UTfNmOKBqAQE7KUXxGXZvBWKcyi1DQBGrNUJ4JAS5EUHzOJUbASIxKBwkEONlUIH1 HXkuVFItQHSwYB1CNyZxJDApYVWnPZTsOAGoBUWigw9SVNSbQBZ1MwR4YzAwCLFcURGpHZihGTCxHCV6 FII6LBUjQOBkVY2ORxGtHCByVNqrMhDkWVFxATSfwn 6IDHDzVVO4KBD5DsJmNZJzJYPeKHd8ipPcbLWpFJw4KT8KA4GqjzYxPEFBSf9Ad459CDVyLYJeNo6KT0 prNz0yOQCtLFMJBr1EMOc6AUXrXGaxGNWfVKH7GyJ3IrV2QMAuODz4CXE4FuRhNQW+BZomLGS4VYT5LR JrDhPrNjktKBfnZkI0ZAfaOZf7VwE3Lx7tLFOTOe0+VWbrrEBmuCwkPBANVkV7ENT8RHdqXJMBOs9P ID Date Data Source [id number] 04/20/2020 12:13:55 PM EDT [facility] Name Value Range Interpretation Code Description Data Renetta rce(s) Supporting Document(s) Hemoglobin A1c/Hemoglobin.total in Blood 8.5 % 4.0-6.0 [facility] Glucose mean value [Mass/volume] in Blood Estimated fr om glycated hemoglobin 197 mg/dL <126 [facility] ID Date Data Source [id number] 04/20/2020 12:09:45 PM EDT [facility] Name Value Range Interpretation Code Description Data Renetta rce(s) Supporting Document(s) Glucose [Mass/volume] in Capillary blood by Glucometer 303 mg/dL 70- 140 [facility] ID Date Data Source [id number] 04/20/2020 11:24:00 AM EDT [facility] ([facility] Name Value Range Interpretation Code Description Data Renetta rce(s) Supporting Document(s) Hemoglobin A1c/Hemoglobin.total in Blood 8.5 [facility] ([facility]) Procedure Social History Code Duration Value Status Description Data Source(s ) Smoking 04/30/2021 12:00:00 AM EDT Never Smoker completed Never S moker [facility] Smoking 04/24/2021 12:00:00 AM EDT Never Smoker completed Never S moker eCW1 ([facility]) Smoking 03/06/2021 12:00:00 AM EDT Never Smoker completed Never S moker eCW1 ([facility]) Smoking 02/14/2021 12:00:00 AM EDT Never Smoker completed Never S moker eCW1 ([facility]) Smoking 02/14/2021 12:00:00 AM EDT Never Smoker completed Never S moker eCW1 ([facility]) Smoking 01/23/2021 12:00:00 AM EDT Never Smoked Cigarettes com pleted Never Smoked Cigarettes [facility] ([facility], ) Smoking 11/16/2020 12:00:00 AM EDT Patient has never smoked co mpleted Patient has never smoked [facility] ([facility]) Alcohol intake 11/01/2020 12:00:00 AM EDT Current drinker of al cohol (finding) completed Current drinker of alcohol (finding) [facility] Tobacco use and exposure 11/01/2020 12:00:00 AM EDT Current user co mpleted Current user [facility] Smoking 11/01/2020 12:00:00 AM EDT Never smoker completed Never s [facility] Smoking 09/20/2020 12:00:00 AM EDT Never Smoker completed Never S moker eCW1 [facility] Smoking 09/20/2020 12:00:00 AM EDT Never Smoker completed Never S moker eCW1 ([facility]) Smoking 09/20/2020 12:00:00 AM EDT Never Smoker completed Never S moker eCW1 ([facility]) Smoking 09/20/2020 12:00:00 AM EDT Never Smoker completed Never S moker eCW1 ([facility]) Smoking 09/20/2020 12:00:00 AM EDT Patient has never smoked co mpleted Patient has never smoked [facility] ([facility]) Smoking 09/20/2020 12:00:00 AM EDT Never Smoker completed Never S moker eCW1 ([facility]) Alcohol intake 09/01/2020 12:00:00 AM EST Current drinker of al cohol (finding) completed Current drinker of alcohol (finding) [facility] Smoking 08/23/2020 12:00:00 AM EST Never Smoker completed Never S moker eCW1 ([facility]) Smoking 08/23/2020 12:00:00 AM EST Never Smoker completed Never S moker eCW1 ([facility]) Smoking 08/23/2020 12:00:00 AM EST Never Smoker completed Never S moker eCW1 ([facility]) Smoking 07/31/2020 12:00:00 AM EST Never Smoker completed Never S moker eCW1 ([facility]) Smoking 07/31/2020 12:00:00 AM EST Never Smoker completed Never S moker eCW1 ([facility]) Smoking 07/31/2020 12:00:00 AM EST Never Smoker completed Never S moker eCW1 ([facility]) Smoking 06/15/2020 12:00:00 AM EST Never Smoker completed Never S moker eCW1 ([facility]) Smoking 06/15/2020 12:00:00 AM EST Never Smoker completed Never S moker eCW1 ([facility]) Smoking 06/15/2020 12:00:00 AM EST Never Smoker completed Never S moker eCW1 ([facility]) Smoking 06/15/2020 12:00:00 AM EST Never Smoker completed Never S moker eCW1 ([facility]) Smoking 06/15/2020 12:00:00 AM EST Never Smoker completed Never S moker eCW1 ([facility]) Smoking 06/15/2020 12:00:00 AM EST Never Smoker completed Never S moker eCW1 ([facility]) Smoking 06/15/2020 12:00:00 AM EST Never Smoker completed Never S moker eCW1 ([facility]) Smoking 06/15/2020 12:00:00 AM EST Never Smoker completed Never S moker eCW1 ([facility]) Smoking 06/15/2020 12:00:00 AM EST Never Smoker completed Never S moker eCW1 ([facility]) Smoking 06/15/2020 12:00:00 AM EST Never Smoker completed Never S moker eCW1 ([facility]) Smoking 06/15/2020 12:00:00 AM EST Never Smoker completed Never S moker eCW1 ([facility]) Smoking 06/15/2020 12:00:00 AM EST Never Smoker completed Never S moker eCW1 ([facility]) Smoking 06/15/2020 12:00:00 AM EST Never Smoker completed Never S moker eCW1 ([facility]) Smoking 06/15/2020 12:00:00 AM EST Never Smoker completed Never S moker eCW1 ([facility]) Smoking 05/24/2020 12:00:00 AM EST Never Smoker completed Never S moker eCW1 ([facility]) Smoking 05/24/2020 12:00:00 AM EST Never Smoker completed Never S moker eCW1 ([facility]) Smoking 05/24/2020 12:00:00 AM EST Never Smoker completed Never S moker eCW1 ([facility]) Smoking 05/24/2020 12:00:00 AM EST Never Smoker completed Never S moker eCW1 ([facility]) Vital Signs ID Date Data Source UNK Name Value Range Interpretation Code Description Data Source(s) Body weight 249 [lb_av] 249 [lb_av] eCW1 ([facility]) Body weight 112.95 kg 112.95 kg eCW1 ([facility]) Body height 71 [in_i] 71 [in_i] eCW1 ([facility]) Body mass index (BMI) [Ratio] 34.72 kg/m2 34.72 kg/m2 W1 ([facility]) Heart rate 71 /min 71 /min eCW1 ([facility]) Respiratory rate 20 /min 20 /min eCW1 ([facility]) Body temperature 98.5 [degF] 98.5 [degF] eCW1 ( [facility]) Systolic blood pressure 126 mm[Hg] 126 mm[Hg] e CW1 ([facility]) Diastolic blood pressure 76 mm[Hg] 76 mm[Hg] eCW1 ([facility]) Body weight 115.72 kg 115.72 kg eCW1 ([facility]) Body weight 255.12 [lb_av] 255.12 [lb_av] eCW1 ([facility]) Heart rate 78 /min 78 /min eCW1 ([facility]) Respiratory rate 18 /min 18 /min eCW1 ([facility]) Body temperature 98.3 [degF] 98.3 [degF] eCW1 ( [facility]) Systolic blood pressure 140 mm[Hg] 140 mm[Hg] e CW1 ([facility]) Diastolic blood pressure 90 mm[Hg] 90 mm[Hg] eCW1 ([facility]) Body mass index (BMI) [Ratio] 35.58 kg/m2 35.58 kg/m2 W1 ([facility]) Body height 71 [in_i] 71 [in_i] eCW1 ([facility]) Body weight 257 [lb_av] 257 [lb_av] eCW1 ([facility]) Body weight 116.57 kg 116.57 kg eCW1 ([facility]) Body height 71 [in_i] 71 [in_i] eCW1 ([facility]) Body mass index (BMI) [Ratio] 35.84 kg/m2 35.84 kg/m2 W1 ([facility]) Heart rate 81 /min 81 /min eCW1 ([facility]) Respiratory rate 18 /min 18 /min eCW1 ([facility]) Body temperature 97.4 [degF] 97.4 [degF] eCW1 ( [facility]) Systolic blood pressure 150 mm[Hg] 150 mm[Hg] e CW1 ([facility]) Diastolic blood pressure 84 mm[Hg] 84 mm[Hg] eCW1 ([facility]) Oxygen saturation in Arterial blood by Pulse oximetry 96 % 96 % MEDENT ([facility], ) Systolic blood pressure 124 mm[Hg] 124 mm[Hg] M EDENT ([facility], ) Body temperature 98.0 [degF] 98.0 [degF] [facility] ([facility], ) 97.3 Diastolic blood pressure 78 mm[Hg] 78 mm[Hg] [facility] ([facility], ) Heart rate 78 /min 78 /min [facility] ([facility]) Body weight 117.482 kg 117.482 [facility] Body height 70 [in_i] 70 [in_i] [facility] ([facility]) 5'10" Body weight 259.00 [lb_av] 259.00 [lb_av] MEDEN T ([facility]) Body surface area Derived from formula 2.33 m2 2.33 m2 [facility] ([facility]) Body mass index (BMI) [Ratio] 37.2 kg/m2 37.2 k g/m2 [facility] ([facility]) [place] body weight 166 [lb_av] 166 [lb_av] MEDEN T ([facility]) Oxygen saturation in Arterial blood by Pulse oximetry 96 % 96 % [facility] ([facility]) Heart rate 69 /min 69 /min [facility] ([facility]) Body height 70 [in_i] 70 [in_i] [facility] 5'10" [place] body weight 166 [lb_av] 166 [lb_av] MEDEN T ([facility]) Body mass index (BMI) [Ratio] 37.0 kg/m2 37.0 k g/m2 [facility] ([facility]) Body weight 258.00 [lb_av] 258.00 [lb_av] MEDEN T ([facility]) Body weight 117.029 kg 117.029 kg [facility] ([facility]) Body surface area Derived from formula 2.33 m2 2.33 m2 [facility] ([facility]) Oxygen saturation in Arterial blood by Pulse oximetry 96 % 96 % [facility] ([facility]) Body height 70 [in_i] 70 [in_i] [facility] ([facility]) 5'10" Body weight 258.00 [lb_av] 258.00 [lb_av] MEDEN T ([facility]) Body mass index (BMI) [Ratio] 37.0 kg/m2 37.0 k g/m2 [facility] ([facility]) [place] body weight 166 [lb_av] 166 [lb_av] MEDEN T ([facility]) Body weight 117.029 kg 117.029 kg [facility] ([facility]) Body surface area Derived from formula 2.33 m2 2.33 m2 [facility] ([facility]) Systolic blood pressure 170 mm[Hg] 170 mm[Hg] [facility] ([facility]) Diastolic blood pressure 80 mm[Hg] 80 mm[Hg] [facility] ([facility]) Body height 70 [in_i] 70 [in_i] [facility] ([facility]) 5'10" Body weight 114.307 kg 114.307 kg [facility] ([facility]) Body surface area Derived from formula 2.30 m2 2.30 m2 [facility] ([facility]) Body weight 252.00 [lb_av] 252.00 [lb_av] MEDEN T ([facility]) Body mass index (BMI) [Ratio] 36.2 kg/m2 36.2 k g/m2 [facility] ([facility]) [place] body weight 166 [lb_av] 166 [lb_av] MEDEN T ([facility]) Systolic blood pressure 174 mm[Hg] 174 mm[Hg] [facility] ([facility]) Diastolic blood pressure 86 mm[Hg] 86 mm[Hg] [facility] ([facility]) Heart rate 91 /min 91 /min [facility] ([facility]) Body weight 248.00 [lb_av] 248.00 [lb_av] MEDEN T ([facility]) Body height 71 [in_i] 71 [in_i] [facility] 5'11" Body mass index (BMI) [Ratio] 34.6 kg/m2 34.6 k g/m2 [facility] ([facility]) Systolic blood pressure--sitting 148 mm[Hg] 148 mm[Hg] [facility]) Ra, large cuff Diastolic blood pressure--sitting 80 mm[Hg] 80 mm[Hg] [facility] ([facility]) Ra, large cuff Diastolic blood pressure--sitting 82 mm[Hg] 82 mm[Hg] [facility] ([facility]) Ra, large cuff Body weight 247.00 [lb_av] 247.00 [lb_av] MEDEN T ([facility]) Body height 71 [in_i] 71 [in_i] [facility] ([facility] 5'11" Body mass index (BMI) [Ratio] 34.4 kg/m2 34.4 k g/m2 [facility] ([facility]) Systolic blood pressure--sitting 144 mm[Hg] 144 mm[Hg] [facility] ([facility]) Ra, large cuff Body temperature 97.5 [degF] 97.5 [degF] [facility] ([facility]) Body height 69.5 [in_i] 69.5 [in_i] [facility] ([facility]) 5'9.50" Body weight 246.50 [lb_av] 246.50 [lb_av] MEDEN T ([facility]) Body mass index (BMI) [Ratio] 35.9 kg/m2 35.9 k g/m2 [facility] ([facility] Body weight 247 [lb_av] 247 [lb_av] eCW1 ([facility]) Body height 71 [in_i] 71 [in_i] eCW1 ([facility]) Body mass index (BMI) [Ratio] 34.45 kg/m2 34.45 kg/m2 eCW1 [facility]) Heart rate 78 /min 78 /min eCW1 ([facility]) Respiratory rate 18 /min 18 /min eCW1 ([facility]) Body temperature 98.1 [degF] 98.1 [degF] eCW1 ( [facility]) Systolic blood pressure 155 mm[Hg] 155 mm[Hg] e CW1 ([facility]) Diastolic blood pressure 73 mm[Hg] 73 mm[Hg] eCW1 ([facility]) Body mass index (BMI) [Ratio] 36.0 kg/m2 36.0 k g/m2 [facility] ([facility]) [place] body weight 166 [lb_av] 166 [lb_av] MEDEN T ([facility]) Body weight 113.854 kg 113.854 kg [facility] ([facility]) Body surface area Derived from formula 2.30 m2 2.30 m2 [facility] ([facility]) Systolic blood pressure 154 mm[Hg] 154 mm[Hg] M EDENT ([facility]) Diastolic blood pressure 73 mm[Hg] 73 mm[Hg] [facility]) Body height 70 [in_i] 70 [in_i] [facility] ([facility]) 5'10" Body weight 251.00 [lb_av] 251.00 [lb_av] MEDEN T ([facility]) Body weight 239 [lb_av] 239 [lb_av] eCW1 ([facility]) Body height 71 [in_i] 71 [in_i] eCW1 ([facility]) Body mass index (BMI) [Ratio] 33.33 kg/m2 33.33 kg/m2 eCW1 ([facility]) Heart rate 88 /min 88 /min eCW1 ([facility]) Respiratory rate 20 /min 20 /min eCW1 ([facility]) Body temperature 98.3 [degF] 98.3 [degF] eCW1 ( [facility]) Systolic blood pressure 145 mm[Hg] 145 mm[Hg] e CW1 ([facility]) Diastolic blood pressure 76 mm[Hg] 76 mm[Hg] eCW1 ([facility]) Body weight 231 [lb_av] 231 [lb_av] eCW1 ([facility]) Body height 71 [in_i] 71 [in_i] eCW1 ([facility]) Body mass index (BMI) [Ratio] 32.21 kg/m2 32.21 kg/m2 W1 ([facility]) Heart rate 78 /min 78 /min eCW1 ([facility]) Respiratory rate 20 /min 20 /min eCW1 ([facility]) Body temperature 97.9 [degF] 97.9 [degF] eCW1 ( [facility]) Systolic blood pressure 126 mm[Hg] 126 mm[Hg] e CW1 ([facility]) Diastolic blood pressure 66 mm[Hg] 66 mm[Hg] eCW1 ([facility]) Diastolic blood pressure 68 mm[Hg] 68 mm[Hg] eCW1 ([facility]) Respiratory rate 16 /min 16 /min eCW1 ([facility]) Body temperature 96.8 [degF] 96.8 [degF] eCW1 ( [facility]) Systolic blood pressure 138 mm[Hg] 138 mm[Hg] e CW1 ([facility]) Body weight 263 [lb_av] 263 [lb_av] eCW1 ([facility]) Body height 71 [in_i] 71 [in_i] eCW1 ([facility]) Body mass index (BMI) [Ratio] 36.68 kg/m2 36.68 kg/m2 eCW1 ([facility]) Heart rate 69 /min 69 /min eCW1 ([facility]) Body weight 261 [lb_av] 261 [lb_av] eCW1 ([facility]) Body height 71 [in_i] 71 [in_i] eCW1 ([facility]) Body mass index (BMI) [Ratio] 36.40 kg/m2 36.40 kg/m2 eCW1 ([facility]) Heart rate 67 /min 67 /min eCW1 ([facility]) Respiratory rate 16 /min 16 /min eCW1 ([facility]) Body temperature 97.1 [degF] 97.1 [degF] eCW1 ( [facility]) Systolic blood pressure 124 mm[Hg] 124 mm[Hg] e CW1 ([facility]) Diastolic blood pressure 78 mm[Hg] 78 mm[Hg] eCW1 ([facility]) Body weight 261.00 [lb_av] 261.00 [lb_av] MEDEN T ([facility]) Body height 71 [in_i] 71 [in_i] [facility] ([facility]) 5'11" Diastolic blood pressure--sitting 78 mm[Hg] 78 mm[Hg] [facility] ([facility]) large cuff, Ra Body mass index (BMI) [Ratio] 36.4 kg/m2 36.4 k g/m2 [facility] ([facility]) Heart rate 61 /min 61 /min [facility] ([facility]) Systolic blood pressure--sitting 140 mm[Hg] 140 mm[Hg] [facility] ([facility]) large cuff, Ra Systolic blood pressure 124 mm[Hg] 124 mm[Hg] M EDENT ([facility]) Diastolic blood pressure 68 mm[Hg] 68 mm[Hg] [facility]) Heart rate 65 /min 65 /min [facility] ([facility]) Oxygen saturation in Arterial blood by Pulse oximetry 96 % 96 % [facility] ([facility]) Body temperature 97.1 [degF] 97.1 [degF] [facility] ([facility]) Body height 70 [in_i] 70 [in_i] [facility] ([facility]) 5'10" Body weight 263.00 [lb_av] 263.00 [lb_av] MEDEN T ([facility]) Body mass index (BMI) [Ratio] 37.7 kg/m2 37.7 k g/m2 [facility] ([facility]) Body weight 119.297 kg 119.297 kg [facility] ([facility]) ID Date Data Source [id number] 04/26/2021 10:12:55 AM [facility] Name Value Range Interpretation Code Description Data Source(s) TRANSFER FROM [facility] ID Date Data Source [id number] 11/01/2020 11:36:31 AM [facility] Name Value Range Interpretation Code Description Data Source(s) WEIGHT RECORDED 240 lb 240 lb [facility] ID Date Data Source [id number] 04/24/2020 10:52:15 AM [facility] Name Value Range Interpretation Code Description Data Source(s) WEIGHT RECORDED 261.6 lb 261.6 lb [facility] Body height Measured 70.08 in 70.08 in [facility] Patient Treatment Plan of Care Planned Activity Planned Date Details Description Data Source (s) Levofloxacin 500 MG Oral Tablet 02/14/2021 12:00:00 AM EDT [facility] tramadol hydrochloride 50 MG Oral Tablet 02/14/2021 12:00:00 AM EDT eC ([facility]) Levofloxacin 500 MG Oral Tablet 02/14/2021 12:00:00 AM EDT eCW ([facility]) tramadol hydrochloride 50 MG Oral Tablet 02/14/2021 12:00:00 AM EDT eC ([facility]) FreeStyle Shabbir 2 Sensor 11/01/2020 12:00:00 AM [facility] 3 ML Insulin Lispro 100 UNT/ML Pen Injector 10/26/2020 12:00:00 AM [facility] Chlorthalidone 25 MG Oral Tablet 10/25/2020 12:00:00 AM [facility] Cholecalciferol 2000 UNT Oral Capsule 10/17/2020 12:00:00 AM [facility] 120 ACTUAT Albuterol 0.1 MG/ACTUAT / Ipr atropium [place] 0.02 MG/ACTUAT Metered Dose Inhaler [Combivent] 10/02/2020 12:00:00 AM [facility] BD Pen Needle Original U/F 29G X 12.7MM (Insulin Pen N e[place]) 2020 12:00:00 AM [facility] Levothyroxine Sodium 0.125 MG Oral Tablet 2020 12:00:00 AM [facility] doxycycline hyclate 100 MG Oral Capsule 09/20/2020 12:00:00 AM EDT eC ([facility]) doxycycline hyclate 100 MG Oral Capsule 09/20/2020 12:00:00 AM EDT eC ([facility]) doxycycline hyclate 100 MG Oral Capsule 09/20/2020 12:00:00 AM EDT eCW1 ([facility]) doxycycline hyclate 100 MG Oral Capsule 09/20/2020 12:00:00 AM EDT eCW1 ([facility]) doxycycline hyclate 100 MG Oral Capsule 09/20/2020 12:00:00 AM EDT eCW1 ([facility]) Amlodipine 2.5 MG Oral Tablet 09/04/2020 12:00:00 AM [facility] Trulicity 3 MG/0.5ML Subcutaneous Solution Pen-injecto r (Dulaglutide) 09/01/2020 12:00:00 AM [facility] [facility] Dexamethasone 2 MG Oral Tablet 07/31/2020 12:00:00 AM EST [facility] ([facility] Dexamethasone 2 MG Oral Tablet 07/31/2020 12:00:00 AM EST [facility] ([facility]) May Have - 07/31/2020 12:00:00 AM EST e CW1 ([facility]) May Have - 07/31/2020 12:00:00 AM EST e CW1 ([facility]) Dexamethasone 2 MG Oral Tablet 07/31/2020 12:00:00 AM EST [facility]1 ([facility]) May Have - 07/31/2020 12:00:00 AM EST e CW1 ([facility]) 3 ML Insulin, Aspart, Human 100 UNT/ML Pen Injector [N ovoLog] 05/04/2020 12:00:00 AM [facility] 3 ML Insulin Lispro 100 UNT/ML Pen Injector 04/27/2020 12:00:00 AM [facility] Basaglar KwikPen 100 UNIT/ML Subcutaneou s Solution Pen-injector (insulin glargine) 04/24/2020 12:00:00 AM [facility] FreeStyle Shabbir 14 Day Sensor 04/20/2020 12:00:00 AM [facility] Cholecalciferol 4000 UNT Oral Capsule 04/20/2020 12:00:00 AM [facility] 0.5 ML dulaglutide 3 MG/ML Auto-Injector [Trulicity] 020 12:00:00 AM [facility] Jazzy Mendoza Lancets 33G 04/20/2020 12:00:00 AM [facility] atorvastatin 40 MG Oral Tablet 04/20/2020 12:00:00 AM [facility] 3 ML insulin detemir 100 UNT/ML Pen Injector [Levemir] 04/20/2020 12:00:00 AM [facility] 3 ML Insulin, Aspart, Human 100 UNT/ML Pen Injector [N ovoLog] 04/20/2020 12:00:00 AM [facility] Losartan Potassium 100 MG Oral Tablet 04/19/2020 12:00:00 AM [facility] Cholecalciferol 1000 UNT Oral Tablet 03/21/2020 12:00:00 AM [facility] FreeStyle Shabbir 14 Day Sensor 11/23/2019 12:00:00 AM [facility] Baclofen 10 MG Oral Tablet 11/18/2019 12:00:00 AM [facility] 0.5 ML dulaglutide 3 MG/ML Auto-Injector [Trulicity] 020 12:00:00 AM [facility] Losartan Potassium 50 MG Oral Tablet 10/01/2019 12:00:00 AM [facility] 3 ML insulin detemir 100 UNT/ML Pen Injector 07/28/2019 12:00:00 AM [facility] 3 ML Insulin, Aspart, Human 100 UNT/ML Pen Injector 07/28/19 20 12:00:00 AM [facility] 0.5 ML dulaglutide 3 MG/ML Auto-Injector 07/28/2019 12:00:00 AM [facility] clopidogrel 75 MG Oral Tablet 08/25/2017 12:00:00 AM [facility] JAZZY MENDOZA LANCETS 33G MISC 06/17/2017 12:00:00 AM [facility] FreeStyle Shabbir 2 Sensor Ups [facility] tramadol hydrochloride 50 MG Oral Tablet [facility] Rosuvastatin calcium 20 MG Oral Tablet [facility] carvedilol 6.25 MG Oral Tablet [facility]
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
[2021-05-26] MEDS ORDERED: MORPHINE 4 MG/ML 1ML VIAL/SYRINGE (J2270) IV PRN (17:00)
[2021-05-26 17:22] LABS: APPEARANCE, URINE CLEAR (CLEAR); BACTERIA, URINE AUTO NEGATIVE (NEGATIVE); BILIRUBIN, URINE AUTO NEGATIVE (NEGATIVE); BLOOD, URINE BLOOD NEGATIVE (NEGATIVE); COLOR, URINE YELLOW (YELLOW); GLUCOSE, URINE (UA) AUTO 3+ mg/dL (NEGATIVE); KETONE, URINE AUTO NEGATIVE (NEGATIVE); LEUKOCYTE ESTERASE, URINE AUTO NEGATIVE (NEGATIVE); MUCUS, URINE SMALL (NEGATIVE); NITRITE, URINE AUTO NEGATIVE (NEGATIVE); PROTEIN, URINE AUTO NEGATIVE (NEGATIVE); RBC, URINE AUTO 1 /HPF (0-3); SPECIFIC GRAVITY URINE AUTO 1.021 (1.002-1.035); SQUAMOUS EPITHELIAL CELL UR AU 0 /HPF (0-6); UROBILINOGEN, URINE AUTO 0.2 mg/dL (0.0-2.0); WBC, URINE AUTO 0 /HPF (0-3)
[2021-05-26 17:37] LABS: BASO % 0.3 % (0.0-1.0); EOS # 0.2 10^3/uL (0.0-0.5); EOS % 1.7 % (0.0-3.0); HEMATOCRIT 42.2 % (42.0-52.0); HEMOGLOBIN 14.8 g/dl (13.5-17.5); LYMPH # 2.2 10^3/uL (1.5-5.0); LYMPH % 24.4 % (24.0-44.0); MEAN CORPUSCULAR HEMOGLOBIN 30.9 pg (27.0-33.0); MEAN CORPUSCULAR HGB CONC 35.1 g/dl (32.0-36.5); MEAN CORPUSCULAR VOLUME 88.1 fl (80.0-96.0); MONO # 0.6 10^3/uL (0.0-0.8); MONO % 6.2 % (2.0-8.0); NEUTROPHILS # 5.9 10^3/uL (1.5-8.5); NEUTROPHILS % 67.2 % (36.0-66.0); PLATELET COUNT, AUTOMATED 171 10^3/uL (150-450); RED BLOOD COUNT 4.79 10^6/uL (4.30-6.10); WHITE BLOOD COUNT 8.8 10^3/uL (4.0-10.0)
--- OUTSIDE RECORDS SUMMARY | 2021-05-26 17:37 | CCD ---
Author Author [facility] Organization [facility] Address Unknown Phone Unavailable Care Team Providers Care Developmental Specialist Name Role Phone Chase, L Antonella ROUTE DELIVERY DRIVER Unavailable Unavailable Chase, L Antonella ROUTE DELIVERY DRIVER Unavailable Unavailable Chase, L Antonella ROUTE DELIVERY DRIVER Unavailable Unavailable Chase, L Antonella ROUTE DELIVERY DRIVER Unavailable Unavailable Chase, L Antonella ROUTE DELIVERY DRIVER Unavailable Unavailable Chase, L Antonella ROUTE DELIVERY DRIVER Unavailable Unavailable Chase, L Antonella ROUTE DELIVERY DRIVER Unavailable Unavailable Chase, L Antonella ROUTE DELIVERY DRIVER Unavailable Unavailable Chase, L Antonella ROUTE DELIVERY DRIVER Unavailable Unavailable Chase, L Antonella ROUTE DELIVERY DRIVER Unavailable Unavailable Chase, L Antonella ROUTE DELIVERY DRIVER Unavailable Unavailable Chase, L Antonella ROUTE DELIVERY DRIVER Unavailable Unavailable Chase, L Antonella ROUTE DELIVERY DRIVER Unavailable Unavailable Chase, L Antonella ROUTE DELIVERY DRIVER Unavailable Unavailable Chase, L Antonella ROUTE DELIVERY DRIVER Unavailable Unavailable Chase, L Antonella ROUTE DELIVERY DRIVER Unavailable Unavailable Chase, L Antonella ROUTE DELIVERY DRIVER Unavailable Unavailable Chase, L Antonella ROUTE DELIVERY DRIVER Unavailable Unavailable Chase, L Antonella ROUTE DELIVERY DRIVER Unavailable Unavailable Chase, L Antonella ROUTE DELIVERY DRIVER Unavailable Unavailable Chase, L Antonella ROUTE DELIVERY DRIVER Unavailable Unavailable Chase, L Antonella ROUTE DELIVERY DRIVER Unavailable Unavailable Chase, L Antonella ROUTE DELIVERY DRIVER Unavailable Unavailable Chase, L Antonella ROUTE DELIVERY DRIVER Unavailable Unavailable Chase, L Antonella ROUTE DELIVERY DRIVER Unavailable Unavailable Spenser, L Jessie PA Unavailable [...] Unavailable Unavailable REINEUGENIO, RACHEL WRIGHT Unavailable Unavailable JOSÉ MIGUELDL, RACHEL [...] L TERESA PA Unavailable Unavailable ARPIT, L TREESA PA Unavailable Unavailable ARPIT, L TERESA PA Unavailable Unavailable ARPIT, L TERESA PA Unavailable Unavailable ARPIT, L TERESA PA Unavailable Unavailable ARPIT, L TERESA PA Unavailable Unavailable ARPIT, L TERESA PA Unavailable Unavailable ARPIT, L TERESA PA Unavailable Unavailable Juliana Anthony MD Unavailable Unavailable [...] Unavailable Juliana Anthony MD Unavailable Unavailable Juliana Anthnoy MD Unavailable Unavailable Juliana Anthony MD Unavailable [...] Unavailable Unavailable PEREZJeannette Machado MD Unavailable Unavailable Jeannette PEREZ MD Unavailable Unavailable Jeannette PEREZ MD Unavailable Unavailable PEREZ, D LLOYD MD [...] is protected by Article 27-F of the [facility] Public Health law. If you continue you may have access to information: Regarding HIV / AIDS; Provided by facilities licensed or operated by the [facility] Office of Mental Health; or Provided by the [facility] Office for People With Developmental Disabilities. If such information is present, then the following [facility] mandated warning applies: This information has [...] law may result in a fine or group home sentence or both. A general authorization for the release of medical or other information is NOT sufficient authorization for further disc losure. Allergies and Adverse Reactions Type Description Substance Reaction Status Data Source(s ) Propensity to adverse reactions SULFA ANTIBIOTICS SULFA ANTIBIOT ICS Itching [facility] Family History Family Member Name [facility] Female Problem [facility] ([facility]) Encounters Encounter Providers Location Date Indications Data Source(s ) Outpatient Attender: Evan Gonzalez 11/12/2021 12:00:00 AM [facility] Outpatient Attender: Evan Gonzalez 10/29/2021 12:00:00 AM [facility] Outpatient Attender: SATYA ANDERSON 06/04/2021 12:00:0 0 AM [facility] Outpatient [address] [facility] [address] 04/30/2021 12:00:00 AM EDT eCW1 ([facility]) Unknown [address] [facility] [address] 04/24/2021 12:00:00 AM EDT eCW1 ([facility]) Outpatient Attender: Chris Blue ttender: CHRIS Robertoferrer: CHRIS YARBROUGH 04/23/2021 12:00:00 AM EDT [facility] Outpatient Attender: Chris Blue ttender: CHRIS Robertoferrer: CHRIS YARBROUGH 04/23/2021 12:00:00 AM EDT [facility] Inpatient Attender: Stephanie Huerta nder: LLOYD PEREZ MDAttender: Chris Bluettender: CHRIS BLUEttender: Tony Anthony MDAdmitter: CHRIS Robertoferrer: CHRIS YARBROUGH [id number] 04/19/2021 12:00 :00 AM EDT - 04/23/2021 12:00:00 AM [facility] Patient discharged. Outpatient [address] [address] 03/06/2021 12:00:00 AM EDT eCW1 ([facility]) Outpatient Attender: SATYA ANDERSON 03/02/2021 12:00:0 0 AM [facility] Outpatient Attender: Evan Gonzalez 03/01/2021 12:00:00 AM [facility] Outpatient [address] [facility] [address] 02/14/2021 12:00:00 AM EDT eCW1 ([facility]) Unknown [address] [facility] [address] 02/14/2021 12:00:00 AM EDT eCW1 ([facility]) Unknown [address] [facility] [address] 02/02/2021 12:00:00 AM EDT eCW1 ([facility]) Outpatient Attender: Antonella [place]/Yasmany/Reindl 01/23/2021 02:30:00 PM EDT [facility] ([facility]) Unknown [address] [facility] [address] 01/01/2021 12:00:00 AM EDT eCW1 ([facility]) Outpatient Attender: RACHEL [place]/Clarisa/Yasmany/Rein dl 11/29/2020 01:00:00 PM EDT MEDENT ([facility]) Unknown [address] [facility] [address] 11/24/2020 12:00:00 AM EDT eCW1 ([facility]) Outpatient Attender: TERESA ANDERSON Main Office 11/16/2020 0 2:00:00 PM EDT MEDENT ([facility]) Outpatient Attender: SATYA ANDERSON [id number] 11/01/2020 1 2:00:00 AM EDT assisted (current) use of insulin [facility] intermission coordinator (current) use of insulin Unknown [address] [facility] [address] 10/05/2020 12:00:00 AM EDT eCW1 ([facility]) Outpatient Attender: TERESA ANDERSON Main Office 10/02/2020 1 2:45:00 PM EDT MEDENT ([facility]) Outpatient Attender: Marilyn Padilla MD Physical Therapy 02:45:00 PM EDT MED[facility] ([facility]) Outpatient [address] [facility] [address] 09/20/2020 12:00:00 AM EDT eCW1 ([facility]) Outpatient Attender: RACHEL [place]/Clarisa/Yasmany/Rein dl 09/06/2020 01:30:00 PM EST MEDENT ([facility]) Outpatient Attender: SATYA ANDERSON [id number] 12:00:00 AM EST - 09/01/2020 03:34:09 PM EST assisted (current) use of insulin [facility] intermission coordinator (current) use of insulin Unknown [address] [facility] [facility] [address] 08/29/2020 12:00:00 AM EST eCW1 [facility] [place] [address] [facility] [address] 08/29/2020 12:00:00 AM EST eCW1 ([facility]) [place] [address] [facility] [place] [address] 08/23/2020 12:00:00 AM EST eCW1 ([facility]) Outpatient Attender: Evan Gonzalez 08/03/2020 12:00:00 AM EST [facility] Outpatient [address] [facility] [address] 07/31/2020 12:00:00 AM EST eCW1 ([facility]) Unknown [address] [facility] [address] 07/31/2020 12:00:00 AM EST eCW1 ([facility]) Unknown [address] [facility] [address] 07/28/2020 12:00:00 AM EST eCW1 [facility] Unknown [address] [facility] [address] 07/27/2020 12:00:00 AM EST eCW1 ([facility] Unknown [address] [facility] [address] 07/24/2020 12:00:00 AM EST eCW1 ([facility]) Unknown [address] [facility] [facility] [address] 07/21/2020 12:00:00 AM EST eCW1 ([facility] Unknown [address] [facility] [facility] [address] 07/20/2020 12:00:00 AM EST eCW1 ([facility]) Unknown [address] [facility] [address] 07/20/2020 12:00:00 AM EST eCW1 ([facility]) Unknown [address] [facility] [facility] [address] 07/20/2020 12:00:00 AM EST eCW1 ([facility]) Unknown [address] [facility] [facility] [address] 07/13/2020 12:00:00 AM EST eCW1 ([facility]) Unknown [address] [facility] [facility] [address] 07/13/2020 12:00:00 AM EST eCW1 ([facility]) Unknown [address] [facility] [facility] [address] 07/11/2020 12:00:00 AM EST eCW1 ([facility]) Unknown [address] [facility] [facility] [address] 07/11/2020 12:00:00 AM EST eCW1 ([facility]) Unknown [address] [facility] [facility] [address] 07/10/2020 12:00:00 AM EST eCW1 ([facility]) Unknown [address] [facility] [facility] [address] 07/05/2020 12:00:00 AM EST eCW1 ([facility]) Unknown [address] [facility] [place] [address] 07/04/2020 12:00:00 AM EST eCW1 ([facility]) Outpatient [address] [facility] [address] 06/15/2020 12:00:00 AM EST eCW1 ([facility]) [place] [address] [facility] [place] [address] 06/09/2020 12:00:00 AM EST eCW1 ([facility]) Unknown [address] [facility] [facility] [facility] [address] 06/08/2020 12:00:00 AM EST eCW1 ([facility]) Unknown [address] [facility] [facility] [address] 05/26/2020 12:00:00 AM EST eCW1 ([facility]) Outpatient [address] [facility] [address] 05/24/2020 12:00:00 AM EST eCW1 ([facility]) Outpatient Attender: Jessie ANDERSON Main Office 05/12/2020 07:15:0 0 AM EST MEDENT ([facility]) Outpatient Attender: SATYA ANDERSON [id number] 12:00:00 AM EDT - 04/20/2020 12:42:09 PM EDT Type 2 diabetes mellitus with hyperglycemia [facility] Type 2 diabetes mellitus with hyperglyce starla Outpatient Attender: Antonella Madera/Clarisa/Yasmany/Maureen 03/30/2020 10:00:00 AM EDT MED[facility] ([facility] Immunizations Vaccine Date Status Description Data Source(s) pneumococcal polysaccharide PPV23 03/06/2021 12:06:00 PM EDT comple allan eCW1 ([facility]) pneumococcal polysaccharide PPV23 03/06/2021 12:06:00 PM EDT comple allan eCW1 ([facility]) pneumococcal polysaccharide PPV23 03/06/2021 12:06:00 PM EDT comple allan eCW1 ([facility]) Tdap 03/06/2021 12:05:00 PM EDT completed e CW1 ([facility]) Tdap 03/06/2021 12:05:00 PM EDT completed e CW1 ([facility]) Tdap 03/06/2021 12:05:00 PM EDT completed e CW1 ([facility]) Medications Medication Brand Name Start Date Product Form Dose Route Admi nistrative Instructions Pharmacy Instructions Status Indications Reaction Description Data Source(s) tramadol hydrochloride 50 MG Oral Tablet traMADol HCl 50 MG traMADol HCl 50 MG 02/14/2021 12:00:00 AM EDT 1.0 {tablet_as_needed} active traMADol HCl 50 MG eCW1 ([facility]) tramadol hydrochloride 50 MG Oral Tablet traMADol HCl 50 MG traMADol HCl 50 MG 02/14/2021 12:00:00 AM EDT 1.0 {tablet_as_needed} active traMADol HCl 50 MG eCW1 ([facility]) Levofloxacin 500 MG Oral Tablet Levaquin 500 MG Levaquin 500 MG 02/14/2021 12:00:00 AM EDT 1.0 {tablet} active Le vaquin 500 MG eCW1 ([facility]) Levofloxacin 500 MG Oral Tablet Levaquin 500 MG Levaquin 500 MG 02/14/2021 12:00:00 AM EDT 1.0 {tablet} suspended Levaquin 500 MG eCW1 ([facility]) Levofloxacin 500 MG Oral Tablet Levaquin 500 MG Levaquin 500 MG 02/14/2021 12:00:00 AM EDT 1.0 {tablet} suspended Levaquin 500 MG eCW1 ([facility]) Levofloxacin 500 MG Oral Tablet Levaquin 500 MG Levaquin 500 MG 02/14/2021 12:00:00 AM EDT 1.0 {tablet} active Le vaquin 500 MG eCW1 ([facility]) tramadol hydrochloride 50 MG Oral Tablet traMADol HCl 50 MG traMADol HCl 50 MG 02/14/2021 12:00:00 AM EDT 1.0 {tablet_as_needed} active traMADol HCl 50 MG eCW1 ([facility]) tramadol hydrochloride 50 MG Oral Tablet traMADol HCl 50 MG traMADol HCl 50 MG 02/14/2021 12:00:00 AM EDT 1.0 {tablet_as_needed} active traMADol HCl 50 MG eCW1 ([facility]) Levofloxacin 500 MG Oral Tablet Levaquin 500 MG Levaquin 500 MG 02/14/2021 12:00:00 AM EDT 1.0 {tablet} suspended Levaquin 500 MG eCW1 ([facility]) tramadol hydrochloride 50 MG Oral Tablet traMADol HCl 50 MG traMADol HCl 50 MG 02/14/2021 12:00:00 AM EDT 1.0 {tablet_as_needed} active traMADol HCl 50 MG eCW1 ([facility]) 24 HR Diltiazem Hydrochloride 120 MG Extended Release Oral Capsule [Dilt] Dilt-XR 11/16/2020 12:00:00 AM EDT ORAL active MEDENT ([facility]) FreeStyle Shabbir 2 Sensor 71622-465-51 11/01/2020 12:00:00 AM EDT 1 {each} Does not apply active 1 each by Does not apply route every 14 (fourteen) days Use as directed. Dx:E11.65 [facility] 100 unit/mL 10/27/2020 12:00:00 AM EDT [...] 100 units with priming and titration.Dx: E11.65 [facility] Type 2 diabetes mellitus with hyperglyce starla, with long-term current use of insulin Chlorthalidone 25 MG Oral Tablet Chlorthalidone 25 MG Oral Tablet (HYGROTON) Chlorthalidone 25 MG Oral Tablet (HYGROTON) 10/25/2020 12:00:00 AM EDT active [facility] Cholecalciferol 1999 Oral Capsule Vitamin D3 50 MC G (1999) Oral Capsule Vitamin D3 50 MCG (1999) Oral Capsule 10/17/2020 12:00:00 AM EDT active TAKE TWO CAPSULES BY MOUTH EVERY DAY [facility] 120 ACTUAT Albuterol 0.1 MG/ACTUAT / Ipr atropium [place] 0.02 MG/ACTUAT Metered Dose Inhaler [Combivent] Combivent Respimat 20-100 MCG/ACT Inhalation Aerosol Solution Combivent Respimat 20-100 MCG/ACT Inhalation Aerosol S olution 10/02/2020 12:00:00 AM EDT active INHALE ONE PUFF BY MOUTH THREE TIMES A DAY [facility] doxycycline hyclate 100 MG Oral Capsule Doxycycline Hyclate 10/01/2020 12:00:00 AM EDT ORAL completed MEDENT ([facility]) 3 ML Insulin Lispro 25 UNT/ML / Insulin, Protamine Lispro, Human 75 UNT/ML Pen Injector [Humalog Mix] Humalog Mix 75/25 Kwikpen 10/01/2020 12:00:00 AM EDT active [facility] ([facility]) Basaglar Kwikpen Basaglar Kwikpen 10/01/2020 12:00:00 AM EDT active MEDENT ([facility] [employer]) Trulicity Trulicity 10/01/2020 12:00:00 AM EDT act artemio MEDENT ([facility]) Levothyroxine Sodium 0.125 MG Oral Table t Levothyroxine Sodium 125 MCG Oral Tablet (SYNTHROID) Levothyroxine Sodium 125 MCG Oral Tablet (SYNTHROID) 2020 12:00:00 AM EDT active Other specified hypothyroidism TAKE ONE TABLET BY MOUTH EVERY DAY [facility] Other specified hypothyroidism BD Pen Needle Original U/F 29G X 12.7MM (Insulin Pen Needle) [id number] 2020 12:00:00 AM EDT act artemio Type 2 diabetes mellitus with hyperglycemia, with long-term current use of insulin U se as directed. INJECT DIRECTED UP TO 6 TIMES PER DAY [facility] Type 2 diabetes mellitus with hyperglyce starla, with long-term current use of insulin doxycycline hyclate 100 MG Oral Capsule Doxycycline Hy clate 100 MG Doxycycline Hyclate 100 MG 09/20/2020 12:00:00 AM EDT 1.0 {capsule} active Doxycycline Hyclate 100 MG eCW1 ([facility]) doxycycline hyclate 100 MG Oral Capsule Doxycycline Hy clate 100 MG Doxycycline Hyclate 100 MG 09/20/2020 12:00:00 AM EDT 1.0 {capsule} active Doxycycline Hyclate 100 MG eCW1 ([facility]) doxycycline hyclate 100 MG Oral Capsule Doxycycline Hy clate 100 MG Doxycycline Hyclate 100 MG 09/20/2020 12:00:00 AM EDT 1.0 {capsule} active eCW1 ([facility]) doxycycline hyclate 100 MG Oral Capsule Doxycycline Hy clate 100 MG Doxycycline Hyclate 100 MG 09/20/2020 12:00:00 AM EDT 1.0 {capsule} active Doxycycline Hyclate 100 MG eCW1 ([facility]) doxycycline hyclate 100 MG Oral Capsule Doxycycline Hy clate 100 MG Doxycycline Hyclate 100 MG 09/20/2020 12:00:00 AM EDT 1.0 {capsule} active Doxycycline Hyclate 100 MG eCW1 ([facility]) Chlorthalidone 25 MG Oral Tablet Chlorthalidone 25 MG 2020 12:00:00 AM EST 1.0 {tablet_in_the_morning_with_food} active Chlorthalidone 25 MG eCW1 ([facility]) Chlorthalidone 25 MG Oral Tablet Chlorthalidone 25 MG 2020 12:00:00 AM EST 1.0 {tablet_in_the_morning_with_food} active Chlorthalidone 25 MG eCW1 ([facility]) Chlorthalidone 25 MG Oral Tablet Chlorthalidone 25 MG 2020 12:00:00 AM EST 1.0 {tablet_in_the_morning_with_food} active Chlorthalidone 25 MG eCW1 ([facility]) Chlorthalidone 25 MG Oral Tablet Chlorthalidone 25 MG 2020 12:00:00 AM EST 1.0 {tablet_in_the_morning_with_food} active Chlorthalidone 25 MG eCW1 ([facility]) Chlorthalidone 25 MG Oral Tablet Chlorthalidone 25 MG 2020 12:00:00 AM EST 1.0 {tablet_in_the_morning_with_food} active Chlorthalidone 25 MG eCW1 ([facility]) Chlorthalidone 25 MG Oral Tablet Chlorthalidone 25 MG 2020 12:00:00 AM EST 1.0 {tablet_in_the_morning_with_food} active Chlorthalidone 25 MG eCW1 ([facility]) Chlorthalidone 25 MG Oral Tablet Chlorthalidone 25 MG 2020 12:00:00 AM EST 1.0 {tablet_in_the_morning_with_food} active Chlorthalidone 25 MG eCW1 ([facility]) Chlorthalidone 25 MG Oral Tablet Chlorthalidone 25 MG 2020 12:00:00 AM EST 1.0 {tablet_in_the_morning_with_food} active Chlorthalidone 25 MG eCW1 ([facility]) Chlorthalidone 25 MG Oral Tablet Chlorthalidone 25 MG 2020 12:00:00 AM EST 1.0 {tablet_in_the_morning_with_food} active Chlorthalidone 25 MG eCW1 ([facility]) Chlorthalidone 25 MG Oral Tablet Chlorthalidone 25 MG 2020 12:00:00 AM EST 1.0 {tablet_in_the_morning_with_food} active eCW1 ([facility]) Chlorthalidone 25 MG Oral Tablet Chlorthalidone 09/14/2020 12:00:00 A M EST ORAL completed [facility] ([facility] 25 mg 09/14/2020 12:00:00 AM EST [...] Oral active Take 2.[address] [facility] Amlodipine 2.5 MG Oral Tablet Amlodipine Besylate 09/04/2020 12:00: 00 AM EST ORAL completed [facility] ([facility]) Trulicity 3 MG/0.5ML Subcutaneous Solution Pen-injecto r (Dulaglutide) 9977-2094-62 09/01/2020 12:00:00 AM EST 3 mg Subcutaneous active Inject 3 mg into the skin once a week [facility] 0.4 mg 08/10/2020 12:00:00 AM EST tablet, sublingual [address] ONE TABLET UNDER THE TONGUE EVERY 5 MINUTES FOR UP TO 3 DOSES NEEDED FOR CHEST PAIN. IF CHEST PAIN STILL PERSISTS CONTACT [address] ONE TABLET UNDER THE TONGUE EVERY 5 MINUTES FOR UP TO 3 DOSES NEEDED FOR CHEST PAIN. IF CHEST PAIN STILL PERSISTS CONTACT 911 SOLD: 08/17/2020 [facility]ingsley s Dexamethasone 2 MG Oral Tablet Dexamethasone 2 MG 07/31/2020 12:00: 00 AM EST 1.0 {tablet} suspended Dexamethasone 2 M G eCW1 ([facility]) Dexamethasone 2 MG Oral Tablet Dexamethasone 2 MG 07/31/2020 12:00: 00 AM EST 1.0 {tablet} suspended Dexamethasone 2 M G eCW1 ([facility]) May Have - UNK 07/31/2020 12:00:00 AM EST active May Have - eCW1 ([facility]) Dexamethasone 2 MG Oral Tablet Dexamethasone 2 MG 07/31/2020 12:00: 00 AM EST 1.0 {tablet} active Dexamethasone 2 MG eCW1 ([facility]) May Have - UNK 07/31/2020 12:00:00 AM EST active May Have - eCW1 ([facility]) May Have - UNK 07/31/2020 12:00:00 AM EST active May Have - eCW1 ([facility]) May Have - UNK 07/31/2020 12:00:00 AM EST active May Have - eCW1 ([facility]) May Have - UNK 07/31/2020 12:00:00 AM EST active May Have - eCW1 ([facility]) Dexamethasone 2 MG Oral Tablet Dexamethasone 2 MG 07/31/2020 12:00: 00 AM EST 1.0 {tablet} suspended Dexamethasone 2 M G eCW1 ([facility]) Dexamethasone 2 MG Oral Tablet Dexamethasone 2 MG 07/31/2020 12:00: 00 AM EST 1.0 {tablet} suspended Dexamethasone 2 M G eCW1 ([facility]) Dexamethasone 2 MG Oral Tablet Dexamethasone 2 MG 07/31/2020 12:00: 00 AM EST 1.0 {tablet} suspended Dexamethasone 2 M G eCW1 ([facility]) May Have - UNK 07/31/2020 12:00:00 AM EST active May Have - eCW1 ([facility]) May Have - UNK 07/31/2020 12:00:00 AM EST active May Have - eCW1 ([facility]) Dexamethasone 2 MG Oral Tablet Dexamethasone 2 MG 07/31/2020 12:00: 00 AM EST 1.0 {tablet} suspended Dexamethasone 2 M G eCW1 ([facility]) May Have - UNK 07/31/2020 12:00:00 AM EST active May Have - eCW1 ([facility]) May Have - UNK 07/31/2020 12:00:00 AM EST active May Have - eCW1 ([facility]) Dexamethasone 2 MG Oral Tablet Dexamethasone 2 MG 07/31/2020 12:00: 00 AM EST 1.0 {tablet} active Dexamethasone 2 MG eCW1 ([facility]) May Have - UNK 07/31/2020 12:00:00 AM EST active May Have - eCW1 ([facility]) Dexamethasone 2 MG Oral Tablet Dexamethasone 2 MG 07/31/2020 12:00: 00 AM EST 1.0 {tablet} suspended Dexamethasone 2 M G eCW1 ([facility]) Dexamethasone 2 MG Oral Tablet Dexamethasone 2 MG 07/31/2020 12:00: 00 AM EST 1.0 {tablet} suspended Dexamethasone 2 M G eCW1 ([facility]) May Have - UNK 07/31/2020 12:00:00 AM EST active May Have - eCW1 ([facility]) Dexamethasone 2 MG Oral Tablet Dexamethasone 2 MG 07/31/2020 12:00: 00 AM EST 1.0 {tablet} active Dexamethasone 2 MG eCW1 ([facility]) May Have - UNK 07/31/2020 12:00:00 AM EST active May Have - eCW1 ([facility]) Dexamethasone 2 MG Oral Tablet Dexamethasone 2 MG 07/31/2020 12:00: 00 AM EST 1.0 {tablet} suspended Dexamethasone 2 M G eCW1 ([facility]) May Have - UNK 07/31/2020 12:00:00 AM EST active May Have - eCW1 ([facility]) Dexamethasone 2 MG Oral Tablet Dexamethasone 2 MG 07/31/2020 12:00: 00 AM EST 1.0 {tablet} suspended Dexamethasone 2 M G eCW1 ([facility]) May Have - UNK 07/31/2020 12:00:00 AM EST active May Have - eCW1 ([facility]) May Have - UNK 07/31/2020 12:00:00 AM EST active May Have - eCW1 ([facility]) Dexamethasone 2 MG Oral Tablet Dexamethasone 2 MG 07/31/2020 12:00: 00 AM EST 1.0 {tablet} suspended [facility] Dexamethasone 2 MG Oral Tablet Dexamethasone 2 MG 07/31/2020 12:00: 00 AM EST 1.0 {tablet} suspended Dexamethasone 2 M G eCW1 ([facility]) May Have - UNK 07/31/2020 12:00:00 AM EST active eCW1 ([facility]) Dexamethasone 2 MG Oral Tablet Dexamethasone 2 MG 07/31/2020 12:00: 00 AM EST 1.0 {tablet} suspended Dexamethasone 2 M G eCW1 ([facility]) 50 mg 07/19/2020 12:00:00 AM EST tablet [...] MOUTH THREE TIMES A DAY SOLD: 07/19/2020 [facility] 125 mg 07/18/2020 12:00:00 AM EST [...] ORAL active [facility] ([facility] 3 ML Insulin, Aspart, Human 100 UNT/ML P en Injector [NovoLog] NovoLOG FlexPen 100 UNIT/ML Subcutaneous Solution Pen-injector (insulin aspart) NovoLOG FlexPen 100 UNIT/ML Subcutaneous Solution Pen-injector (insulin aspart) 05/04/2020 12:00:00 AM EDT aborted Type 2 diabetes mellitus with hyperglycemia, with long-term current use of insulin INJECT UNDER THE SKIN THREE TIMES A DAY MAXIMUM DAILY DOSE = 125UNITS [facility] Type 2 diabetes mellitus with hyperglyce [...] UNITS WITH TITRATION AND PRIMING SOLD: 06/26/2020 [facility] 100 unit/mL 04/30/2020 12:00:00 AM EDT insulin pen 45 INJECT SUBCUTANEOUSLY DAILY PER INSULIN ORDERS MAXIMUM DAILY DOSE = 140 UNITS WITH TITRATION AND PRIMING INJECT SUBCUTANEOUSLY DAILY PER INSULIN ORDERS MAXIMUM DAILY DOSE = 140 UNITS WITH TITRATION AND PRIMING SOLD: 08/24/2020 [facility] 3 ML Insulin Lispro 100 UNT/ML [...] units with titration and priming. Dx: E11.65 [facility] Type 2 diabetes mellitus with hyperglyce [...] DAILY DOSE = 144 UNITS SOLD: 07/04/2020 [facility] Basaglar KwikPen 100 UNIT/ML Subcutaneou s Solution Pen-injector (insulin glargine) [id number] 04/24/2020 12:00:00 AM EDT active Type 2 diabetes mellitus with hyperglycemia, with long-term current use of insulin Inject 60 units, QAM and 60 units QPM, Max Daily Dose: 144 units inclusive of priming and titiration. Dx code: E11.65 [facility] Type 2 diabetes mellitus with hyperglyce [...] units with titration and priming. Dx: E11.65. [facility] Type 2 diabetes mellitus with hyperglyce starla, with long-term current use of insulin FreeStyle Shabbir 14 Day Sensor [id number] 04/20/2020 12:00:00 AM EDT active Type 2 diabetes mellitus with hyperglyce starla, with long-term current use of insulin Use as directed. Change every 14 days. Dx: E11.65 [facility] Type 2 diabetes mellitus with hyperglyce [...] of priming and titiration. Dx code: E11.65 [facility] Type 2 diabetes mellitus with hyperglyce [...] i nto the skin once a week [facility] Type 2 diabetes mellitus with hyperglyce starla, with long-term current use of insulin Cholecalciferol 4000 UNT Oral Capsule Ch olecalciferol 100 MCG (4000 UT) Oral Capsule Cholecalciferol 100 MCG (4000 UT) Oral Capsule 020 12:00:00 AM EDT 1 {capsule} Oral active Take 1 capsu le by mouth daily [facility] Jazzy Mendoza Lancets 33G [phone] 04/20/2020 12:00:00 AM EDT aborted Type 2 diabetes mellitus with hyperglyce starla, with long-term current use of insulin Use to test blood sugar up to 4 times da adeola. Dx: e11.65 [facility] Type 2 diabetes mellitus with hyperglyce [...] Tablet (LIPITOR) 04/20/2020 12:00:00 AM EDT aborted [facility] Losartan Potassium 100 MG Oral Tablet Lo sartan Potassium 100 MG Oral Tablet (COZAAR) Losartan Potassium 100 MG Oral Tablet (COZAAR) 020 12:00:00 AM EDT active [facility] Cholecalciferol 1000 UNT Oral Tablet Vit olmedo D3 25 MCG (1000 UT) Oral Tablet (CHOLECALCIFEROL) Vitamin D3 25 MCG (1000 UT) Oral Tablet (CHOLECALCIFER OL) 03/21/2020 12:00:00 AM EDT aborted TAKE THREE TABLETS BY MOUTH EVERY DAY [facility] Cholecalciferol 1000 UNT Oral Capsule Vitamin D3 12/02/2019 12:00:00 AM EDT ORAL completed [facility] ([facility] FreeStyle Shabbir 14 Day Sensor [phone] 11/23/2019 12:00:00 AM EDT aborted Type 2 diabetes mellitus with hyperglyce starla, with long-term current use of insulin Use as directed. Change every 14 days. Dx: E11.65 [facility] Type 2 diabetes mellitus with hyperglyce starla, with long-term current use of insulin Baclofen 10 MG Oral Tablet Baclofen 10 MG Oral Tablet (LIORESAL) Baclofen 10 MG Oral Tablet (LIORESAL) 11/18/2019 12:00:00 AM EDT aborted TAKE ONE TABLET BY MOUTH THREE TIMES A DAY NEEDED FOR MUSCLE SPASMS [facility] 0.5 ML dulaglutide 3 MG/ML Auto-Injector [Trulicity] Trulicity 1.5 MG/0.5ML Subcutaneous Solution Pen-injector (dulaglutide) Trulicity 1.5 MG/0.5ML Subcutaneous Solution Pen-injector (dulaglutide) 10/04/2019 12:00:00 AM EDT aborted Type 2 diabetes mellitus with hyperglycemia, with long-term current use of insulin INJECT 1.5MG WEEKLY [facility] Type 2 diabetes mellitus with hyperglyce starla, with long-term current use of insulin Losartan Potassium 50 MG Oral Tablet Los gavin Potassium 50 MG Oral Tablet (COZAAR) Losartan Potassium 50 MG Oral Tablet (COZAAR) 10/01/19 12:00:00 AM EDT aborted [facility] 3 ML Insulin, Aspart, Human 100 UNT/ML P en Injector Insulin Aspart 100 UNIT/ML Subcutaneous Solution Pen-injector (NOVOLOG FLEXPEN) Insulin Aspart 100 UNIT/ML Subcutaneous Solution Pen-injector (NOVOLOG FLEXPEN) 07/28/2019 12:00:00 AM EST aborted Type 2 diabete s mellitus with hyperglycemia, with long-term current use of insulin Inject subq daily per insuli n orders. MDD 175 units with titration and priming. Dx: E11.65. [facility] Type 2 diabetes mellitus with hyperglyce starla, with long-term current use of insulin 0.5 ML dulaglutide 3 MG/ML Auto-Injector Dulaglutide 1.5 MG/0.5ML Subcutaneous Solution Pen-injector (TRULICITY) Dulaglutide 1.5 MG/0.5ML Subcutaneous So lution Pen-injector (TRULICITY) 07/28/2019 12:00:00 AM EST active Type 2 diabetes mellitus with hyperglycemia, with long-term current use of insulin Inject 1.5 mg once weekly. DX:E11.65 [facility] Type 2 diabetes mellitus with hyperglyce [...] of priming and titiration. Dx code: E11.65 [facility] Type 2 diabetes mellitus with hyperglyce starla, with long-term current use of insulin clopidogrel 75 MG Oral Tablet clopidogrel (PLAVIX) 75 MG tablet clopidogrel (PLAVIX) 75 MG tablet 08/25/2017 12:00:00 AM EST 75 mg Oral aborted Take 75 mg by mouth daily [facility] L[facility]G [facility] [phone] 06/17/2017 12:00:[address] aborted Type 2 diabetes idris itus with hyperglycemia, with long-term current use of insulin Use to test blood sugar up to 6 times da adeola. Dx: e11.65 [facility] Type 2 diabetes mellitus with hyperglyce starla, with long-term current use of insulin tramadol hydrochloride 50 MG Oral Tablet traMADol HCl 50 MG Oral Tablet (ULTRAM) traMADol HCl 50 MG Oral Tablet (ULTRAM) 50 mg Oral aborted Take 50 mg by mouth every 8 (eight) hours as needed [facility] Rosuvastatin calcium 20 MG Oral Tablet rosuvastatin (C RESTOR) 20 MG tablet rosuvastatin (CRESTOR) 20 MG tablet 20 mg Oral ab orted Take 20 mg by mouth 1 tab daily [facility] carvedilol 6.25 MG Oral Tablet carvedilol (COREG) 6.25 MG tablet carvedilol (COREG) 6.25 MG tablet 6.25 mg Oral aborted Take 6.25 mg by mouth Two times daily with meals [facility] FreeStyle Shabbir 2 Sensor [id number] 1 {each} Does not apply aborted 1 each by Does not apply route every 14 (fourteen) days Use as directed. Dx:E11.65 [facility] Insurance Providers Payer name Policy type / Coverage type Policy ID Covered republican ID Covered republican's relationship to patiño Policy Patiño Plan Information Bso ZFC,Yot,Yoy,ZFH,ZFP Medigap Part B [id number] Self Z [id number] Bso ZFC,Yot,Yoy,ZFH,ZFP Medigap Part B [id number] Self Z [id number] Bso ZFC,Yot,Yoy,ZFH,ZFP Medigap Part B [id number] Self Z [id number] [facility],ZFH,ZFP Medigap Part B [id number] [id number] Self Z [id number] Bso ZFC,Yot,Yoy,ZFH,ZFP Medigap Part B [id number] Self Ghi FHP-(DO Not Use) Medigap Part B [id number] Self 0 [id number] Ghi FHP-(DO Not Use) Medigap Part B [id number] Self Ghi FHP-(DO Not Use) Medigap Part B [id number] [id number] Self 0 [id number] Ghi FHP-(DO Not Use) Medigap Part B [id number] Self 0 [id number] Ghi FHP-(DO Not Use) Medigap Part B [id number] Self 0 [id number] [place] Commercial [id number] Family Dependent BS [place] Medigap Part B [id number] Family Dependent S [id number] BS [place] Medigap Part B [id number] [id number] Family Dependent S [id number] BS [place] Medigap Part B [id number] 2...[id number] Family Dependent S [id number] BS [place] Medigap Part B [id number] 2...[id number] Family Dependent S [id number] EXCELLUS C [id number] Self [id number] BS [place] Commercial [id number] Family Dependent EXCELLUS H [id number] Spouse [id number] EXCELLUS BCBS [id number] ORe YND [id number] BS [place] [employer] [id number] 2...[id number] Family Dependent Y [id number] BS [place] Commercial [id number] [id number] Family Dependent Y [id number] BS [place] Commercial [id number] [id number] Family Dependent Y [id number] BS [place] Commercial [id number] Family Dependent Y [id number] [place] EXCHANGE [id number] Liset 7 [id number] D[place] MEDICAID [id number] Liset 7 [id number] DALTON EXCHANGE U [id number] Self [id number] DALTON I [id number] Self [id number] DALTON I [id number] Self [id number] ANSI-Not a Secondary Insurance [id number] [place] MEDICAID PI PI [place] [employer] Health Maintenance Organization (HMO) [id number] Self [id number] [place] 306/806 [id number] [place]2 [id number] ANSI-Not a Secondary Insurance [id number] ANSI-Not a Secondary Insurance [id number] ANSI-Not a Secondary Insurance [id number] SELF PAY 2 UNAVAILABLE 1 UNAVAILA BLE SELF PAY ONLY [id number] SP [id number] [place] BCBS Health Maintenance Organization (HMO) [id number] Family Dependent [id number] [place]BS [place] P[place] 302/307 [id number] [place]2 [id number] EX[place]LL[place] BCBS PI PI [place] [employer] Health Maintenance Organization (HMO) [id number] Self [id number] [place] [employer] Health Maintenance Organization (O) [id number] Self [id number] ANSI-Not a Secondary Insurance [id number] EXC PLANS 1 [id number] ANSI-Not a Secondary Insurance [id number] MEDICAID [id number] SP [id number] MEDICAID M [id number] S [id number] MEDICAID [id number] SP [id number] [place] [id number] SP 7 [id number] D[place] [id number] SP [id number] BCBS [place] PPO 302/307 [id number] WI2 [id number] EXCELL[place] BCBS B [id number] P [id number] BCBS [place] PPO 302/307 [id number] WI2 [id number] [employer] BCBS Health Maintenance Organization (O) [id number] Family Dependent EMEDNY [id number] SP [id number] [place] [facility] [place] O [id number] S [id number] BCBS [place] PPO 302/307 [id number] WI2 [id number] D[place]TON [id number] SP [id number] BCBS [place] O [id number] U VY [id number] EXCELLUS BCBS P [id number] P KARINE [id number] ANSI-Not a Secondary Insurance [id number] ANSI-Not a Secondary Insurance [id number] [place] -[place] Health Maintenance Organization ([facility]) [id number] Self 7 [id number] [place] [employer] [employer] Maintenance Organization ([facility]) [id number] 800 [id number] Self [id number] ANSI-Not a Secondary Insurance [id number] ANSI-Not a Secondary Insurance [id number] ANSI-Not a Secondary Insurance [id number] ANSI-Not a Secondary Insurance [id number] Problems, Conditions, and Diagnoses Code Display Name Description Problem Type Effective Dates Data Source(s) H65.21 [id number] Right chronic serous otitis media Problem 09/20/2020 12:00:00 AM EDT eCW1 ([facility]) Surgeries/Procedures Procedure Description Date Indications Data Source(s) TDAP VACCINE 7/> YR IM 03/06/2021 12:00:00 AM EDT eCW1 ([facility]) PNEUMOCOCCAL POLYSAC VACCINE 23-V 2 />YR SUBQ/IM 03/06 12:00:00 AM EDT eC1 ([facility]) ECHO TTHRC R-T 2D W/WOM-MODE COMPL SPEC&COLR DOP 01/23 12:00:00 AM EDT [facility] OFFICE OUTPATIENT VISIT 25 MINUTES 01/23/2021 12:00:00 AM EDT [facility] ([facility]) Bronchospasm Evaluation 01/15/2021 12:00:00 AM EDT [facility] ([facility]) Plethysmography Determination Lung Volumes & Per Airway Resi st 01/15/2021 12:00:00 AM EDT [facility] DIFFUSING CAPACITY 01/15/2021 12:00:00 AM EDT [facility] ([facility]) Spirometry 12/07/2020 12:00:00 AM EDT [facility] ([facility]) OFFICE OUTPATIENT VISIT 25 MINUTES 12/07/2020 12:00:00 AM EDT [facility] ([facility]) OFFICE OUTPATIENT VISIT 25 MINUTES 11/29/2020 12:00:00 AM EDT [facility] ([facility]) ECG ROUTINE ECG W/LEAST 12 LDS W/I&R 11/16/2020 12:00: 00 AM EDT [facility] ([facility]) OFFICE OUTPATIENT VISIT 25 MINUTES 11/16/2020 12:00:00 AM EDT [facility] ([facility]) ECG ROUTINE ECG W/LEAST 12 LDS W/I&R 10/02/2020 12:00: 00 AM EDT [facility] ([facility]) OFFICE OUTPATIENT VISIT 15 MINUTES 10/02/2020 12:00:00 AM EDT [facility] ([facility]) ARTHROCENTESIS ASPIR&/INJECTION MAJOR JT/BURSA 021 12:00:00 AM EDT [facility] ([facility]) RADEX SHOULDER COMPLETE MINIMUM 2 VIEWS 09/20/2020 12: 00:00 AM EDT [facility] ([facility]) OFFICE OUTPATIENT VISIT 15 MINUTES 09/06/2020 12:00:00 AM EST FLIP ([facility], ) ECHO TTHRC R-T 2D W/WOM-MODE COMPL SPEC&COLR DOP 06/26 12:00:00 AM EST [facility] ([facility]) ECG ROUTINE ECG W/LEAST 12 LDS W/I&R 05/12/2020 12:00: 00 AM EST [facility] ([facility]) POCT HEMOGLOBIN A1C, DOCKED <td>POCT HEMOGLOBIN A1C, DOCKED</td><td>Routine</td><td>04/20/2020 12:00 PM EDT</td><td></td><td> </td> 04/20/2020 12:00:00 PM EDT [facility] POCT GLUCOSE, DOCKED <td>POCT GLUCOSE, DOCKED</td ><td>Routine</td><td>04/20/2020 11:58 AM EDT</td><td></td><td> </td> 04/20/2020 11:58:00 AM T [facility] Results ID Date Data Source [id number] 04/23/2021 05:12:00 PM EDT [facility] ([facility]) Name Value Range Interpretation Code Description Data Renetta rce(s) Supporting Document(s) Glucose [Mass/volume] in Capillary blood by Glucometer 294 mg/dL 70- 140 [facility] ([facility]) ID Date Data Source [id number] 04/23/2021 02:54:32 PM EDT [facility] Name Value Range Interpretation Code Description Data Renetta rce(s) Supporting Document(s) Discharge Summary [facility] MQRFHp4kVkCVHvXb36/UAAlnSKQiq3BhSInfSXj7THhmSNEmQ7ReHIA9pC9xBBR9QDtGIvQeTeYiCVH3 lbm [file] CMnyGJ22dBlMnSH4up/Z4TpU8oB8t9joewJJiTr6K0ZjR1+jWGM5PgIA4aZ88TdxVsXtytMHcSWS+fulfillment coordinator [file] ICAgICAgICAgICAgICAgICAgICAgICAgICAgICAgIC AgICAgICAgICAgICAgICAgICAgICAgICAgICAgICAgICAgDQogICAgICAgICAgICAgICAgICAgICAgIC AgICAgICAgICAgICAgICAgICAgICAgICAgICAgICAgICAgICAgICAgICAgICAgICAgICAgICAgICAgIC AgICAgICAgICAgICAgICAgDQogICAgICAgICAgICAg ICAgICAgICAgICAgICAgICAgICAgICAgICAgICAgICAgICAgICAgICAgICAgICAgICAgICAgICAgICAg ICAgICAgICAgICAgICAgICAgICAgICAgICAgDQogICAgICAgICAgICAgICAgICAgICAgICAgICAgICAg ICAgICAgICAgICAgICAgICAgICAgICAgICAgICAgIC AgICAgICAgICAgICAgICAgICAgICAgICAgICAgICAgICAgICAgDQogICAgICAgICAgICAgICAgICAgIC AgICAgICAgICAgICAgICAgICAgICAgICAgICAgICAgICAgICAgICAgICAgICAgICAgICAgICAgICAgIC AgICAgICAgICAgICAgICAgICAgDQogICAgICAgICAg ICAgICAgICAgICAgICAgICAgICAgICAgICAgICAgICAgICAgICAgICAgICAgICAgICAgICAgICAgICAg ICAgICAgICAgICAgICAgICAgICAgICAgICAgICAgDQogICAgICAgICAgICAgICAgICAgICAgICAgICAg ICAgICAgICAgICAgICAgICAgICAgICAgICAgICAgIC AgICAgICAgICAgICAgICAgICAgICAgICAgICAgICAgICAgICAgICAgDQogICAgICAgICAgICAgICAgIC AgICAgICAgICAgICAgICAgICAgICAgICAgICAgICAgICAgICAgICAgICAgICAgICAgICAgICAgICAgIC AgICAgICAgICAgICAgICAgICAgICAgDQogICAgICAg ICAgICAgICAgICAgICAgICAgICAgICAgICAgICAgICAgICAgICAgICAgICAgICAgICAgICAgICAgICAg ICAgICAgICAgICAgICAgICAgICAgICAgICAgICAgICAgDQogICAgICAgICAgICAgICAgICAgICAgICAg ICAgICAgICAgICAgICAgICAgICAgICAgICAgICAgIC VlLZBjUSAuTLMxTSAzXVMcPPUcBJUuGJKvOVNjNXErOLJvFIHjAAStIAPjCKz5U0phMGVgDUZxHM3mVY d3Jz8+EUbVSpKaUWI5ttLlwM0ZGJ4hz9JeNGdsDHBvj2AiMZc5JC4VHXWlRWgqEQ9EUBdeex4PVINvAH HgdUVNr0vuXlRbLLN1SXBcTrwxQZ3TATPpF4zusiMa YPKrXTCYSUdlBVSUFSbfINLMDKWvTGRsYqKoAhVnNNFzUWMeNALZCLB1PONuEhFbFNpsFW9Du4WyqPG5 DQo+Yv8EKF8hc6DeCRqsFqGmXI3hod4YWEoYNkFvR3TlmkR3HVD5UNRkQa2EVELcOTLsuWBrVLQfTWTO HwHyP0SgnW31ISOFPs5+VIwpqrKgIwvOHtL2QTPsn4 AuOMz8VC7SXBBqPAw9aBGnAJxmY8kwtwapQVH4nX5ptrdnKrpoGFVwQE7gQ9R6gImqJN8XDON7PDQpMm K7YbTvOzTlUZL9JmOpTO9sVHxlEO5WLOB1APdtHPQvLRCgP0pWHtWyDWWqOgLrgGudEF0UXxGdY7Qchp VudCAzNyAwIFINCj4+GGrkdsBeOomMMjW9TOOso6Tg PDm6MA3QWICnXXnrAK0JTSHptH3jKKlaNB1UIlQuCBSmNAQCNaThZ86hrRNwBSm1D1CdFqUjQQYvLgog ZXMgPDwvTmFtZXMgWyBdDQogID4+ID4+GNkyVT0FJWphppIgOSTnCa5LVHHpECUwPW4yOVBbETGiJ6X3 xLmhHKSWBrNnX5jxwmxvYA3bRFOgX464lBkbmfClHA P2PBYzUr6VMODxCUO5ZRKvgYFfIuKbRKEPPBkgIQ3QgBQcWJH5xJ1eJIdrASXjMBHxD5qNErLodIjjRR 51bGwgbnVsbCBdDQo+Wb6ECR0qn5HqQFj3hpYaBOqfEERyWZqbZPHgWWSoVSZxWKU9MAP5HFJUDlGeJH WvWMHaFRfiIOQwDNUqtw7MWIPcWQCpLbU6ZTCgKUZv LRGbUZtlJIVmROJ1NJQqNJAzOHLrMY5VVhRkVLVxLXZjTNkkOIDqQSErbn3VCQXbLNOuCLMpUDGgKFRh ZROwMEcnEDQkTEL8NHNkZZWlWXJiOS0TMuAcJTVgYPhrKwJfZKXwCTOydj8QDWKvGOYiJRQlHHMyWAFe UBTrSDucMRJwJCRmAuE5SLUfZPZpUR2PMhZeDNEhUZ A3SmivQGCpEBNogd3FGTDiHVYnIzZyVXPaDJOsTZDeMGvxSPIzKXT9VtH1JOIiXLCfHI4DGbBkFEEuAI d0EOEvETOiWPRnwl1OENPxFUXsTKq7FKWfUVZuQTZiIAtcHRRqVCFzQLo6YEGjGMUdRA2PBuBnTHNqLt XpSBTcRSLvTYRyro3OJGNxWHPwLCL0GrUhVMCvXIDy EKqaKLBtMXP9SPstAIHoNTSyWF2XSpTnKAOdZuE3GHZkLVLtTSPrds9BYYSePTGgKvVsLERhFGXyCJWh ASwcMLSxZPR6TkXlADMqDJOmAN5FRyOaDZRcJlafVJWdMEQqZCKxad7TAFToCADgFfD2XfBcYLRkGAGj AUrwNMDbCNP1BUiuJNRmNUBoBI0NCgTtVUDnToz4Wo MbWIInKKCazb2RVCFhTTPlHBizVTJsGSFsJBBsFWygJMIrIRH0KTUrOPVpQXZeRN3FTvPyCBIqNkt6Fw GlMCXoYYJxox4JWHWuNTSfXSI8TOByRMHwSKBjVXuzWWVxPLOjNhZ9YXAiUDKxDL8DNwLkJBXwBrCbUe GgZVVpZCWpby6ZCRKbOPZpMSBgPIIhMAIzSGAaITtc XWLgONN6KdTrKYKeLTDrAG9KHlXxCDRsWnO7ISJzNBDlUGBboa8SHFVlWDBjVlHkJUOvMPNvDMEvDXhh FZPiWIR7LSdmQQVfFHNmWM7WIkFtZTFoNfs2JRnuOLRsOOKpez7MNFHnPGVtOVKqNSDpZZBbXTJxMUdb LXUhSIU4ZIctDOPvPZQyON4KLcMvYXlaTEKVXpq0LR qvA7z8DKG0UZ2PQ2Dgb2ZrJqfiXYWNPCyoDY4dgcPfBJZvJb9IR3yTMxwoIFw4LBNpGAX0YxEpFICmGY ZxFLQ4JmCmA7M8KgH3Wj1aUJN9XpNrKfP0XpkiHNO5ByC1TWK8FafbQ1UaRYjoEpSeLiTpJU1ETe6SPb C7BXB6jRQdSb2GSun3FJKASdRoMW0IABm= ID Date Data Source [id number] 04/23/2021 01:12:23 PM EDT [facility] Name Value Range Interpretation Code Description Data Renetta rce(s) Supporting Document(s) Glucose [Mass/volume] in Capillary blood by Glucometer 294 mg/dL 70- 140 [facility] ID Date Data Source [id number] 04/23/2021 12:34:00 PM EDT [facility] Name Value Range Interpretation Code Description Data Renetta rce(s) Supporting Document(s) Glucose [Mass/volume] in Capillary blood by Glucometer 202 mg/dL 70- 140 [facility] ([facility]) ID Date Data Source [id number] 04/23/2021 08:34:18 AM EDT [facility] Name Value Range Interpretation Code Description Data Renetta rce(s) Supporting Document(s) Glucose [Mass/volume] in Capillary blood by Glucometer 202 mg/dL 70- 140 [facility] ID Date Data Source [id number] 04/23/2021 01:16:00 AM EDT [facility] ([facility]) Name Value Range Interpretation Code Description Data Renetta rce(s) Supporting Document(s) Glucose [Mass/volume] in Capillary blood by Glucometer 244 mg/dL 70- 140 [facility]) ID Date Data Source [id number] 04/22/2021 09:50:00 PM EDT [facility] ([facility]) Name Value Range Interpretation Code Description Data Renetta rce(s) Supporting Document(s) Glucose [Mass/volume] in Capillary blood by Glucometer 135 mg/dL 70- 140 [facility] ([facility]) ID Date Data Source [id number] 04/22/2021 09:16:29 PM EDT [facility] Value Range Interpretation Code Description Data Renetta rce(s) Supporting Document(s) Glucose [Mass/volume] in Capillary blood by Glucometer 244 mg/dL 70- 140 [facility] ID Date Data Source [id number] [facility] Code Description Data Renetta rce(s) Supporting Document(s) Glucose [Mass/volume] in Capillary blood by Glucometer 135 mg/dL 70- 140 [facility] ID Date Data Source [id number] 04/22/2021 04:56:00 PM EDT [facility] ([facility]) Name Value Range Interpretation Code Description Data Renetta rce(s) Supporting Document(s) Glucose [Mass/volume] in Capillary blood by Glucometer 317 mg/dL 70- 140 [facility] ([facility]) ID Date Data Source [id number] 04/22/2021 12:56:00 PM EDT [facility] ([facility]) Name Value Range Interpretation Code Description Data Renetta rce(s) Supporting Document(s) Glucose [Mass/volume] in Capillary blood by Glucometer 212 mg/dL 70- 140 [facility] ([facility]) ID Date Data Source [id number] 04/22/2021 12:56:16 PM [facility] Value Range Interpretation Code Description Data Renetta rce(s) Supporting Document(s) Glucose [Mass/volume] in Capillary blood by Glucometer 317 mg/dL 70- 140 [facility] ID Date Data Source [id number] 04/22/2021 08:56:47 AM EDT [facility] Value Range Interpretation Code Description Data Renetta rce(s) Supporting Document(s) Glucose [Mass/volume] in Capillary blood by Glucometer 212 mg/dL 70- 140 [facility] ID Date Data Source [id number] 04/22/2021 07:32:00 AM EDT [facility] ([facility]) Name Value Range Interpretation Code Description Data Renetta rce(s) Supporting Document(s) Chloride [Moles/volume] in Serum or Plasma 104 mmol/L 98-107 [facility] ([facility]) Bicarbonate [Moles/volume] in Serum 25 mmol/L 22-29 [facility] ([facility]) Glucose [Mass/volume] in Serum or Plasma 199 mg/dL 70-140 [facility] ([facility]) Creatinine [Mass/volume] in Serum or Plasma 0.88 mg/dL 0.70-1.20 [facility] ([facility]) Potassium [Moles/volume] in Serum or Plasma 4.0 mmol/L 3.4-5.1 [facility] ([facility]) Sodium [Moles/volume] in Serum or Plasma 139 mmol/L 136-145 [facility] ([facility]) Anion gap in Serum or Plasma 10 mmol/L 8-15 [facility] ([facility]) Osmolality of Serum or Plasma by calculation 296 mosm/kg 275.0-300.0 [facility] ([facility]) Urea nitrogen [Mass/volume] in Serum or Plasma 20 mg/dL 6-20 [facility] ([facility]) Glomerular filtration rate/1.73 sq M pre dicted among non-blacks [Volume Rate/Area] in Serum or Plasma by Creatinine-based formula (MDRD) Laboratory test result [facility] ([facility] [employer] [facility] Creatinine/Urea nitrogen [Mass Ratio] in Serum or Plasma 23 [facility] ([facility]) Calcium [Mass/volume] in Serum or Plasma 8.4 mg/dL 8.6-10.0 [facility] ([facility]) Glomerular filtration rate/1.73 sq M pre dicted among blacks [Volume Rate/Area] in Serum or Plasma by Creatinine-based formula (MDRD) Laboratory test result [facility] ([facility]) ID Date Data Source [id number] 04/22/2021 07:14:00 AM EDT [facility] ([facility]) Name Value Range Interpretation Code Description Data Renetta rce(s) Supporting Document(s) Leukocytes [#/volume] in Blood by Automated count 6.7 10*3/uL 4.00-10 .00 [facility] ([facility]) Erythrocytes [#/volume] in Blood by Automated count 4.48 10*6/uL 4.60 -6.10 [facility] ([facility]) Hematocrit [Volume Fraction] of Blood by Automated count 39.4 % 4 1.0-53.0 [facility] ([facility]) Hemoglobin [Mass/volume] in Blood 13.9 g/dL 13.5-18.0 [facility] ([facility]) Erythrocyte mean corpuscular volume [Entitic volume] by Auto mated count 88.0 fL 80.0-96.0 [facility] ([facility]) Erythrocyte mean corpuscular hemoglobin [Entitic mass] by Automated count 31.0 pg 27.0-33.0 [facility] ([employer] [facility]) Erythrocyte mean corpuscular hemoglobin concentration [Mass/volume] by Automated count 35.2 g/dL 32-36 [facility] ([facility]) Platelets [#/volume] in Blood by Automated count 163 10*3/uL 150-400 [facility] ([facility]) Erythrocyte distribution width [Ratio] by Automated count 13.2 % 11.5-14.5 [facility] ([facility]) Differential cell count method - Blood Laboratory test result [facility] ([facility]) Neutrophils/100 leukocytes in Blood by Automated count 48 % [facility] ([facility]) Lymphocytes/100 leukocytes in Blood by Automated count 40 % [facility] ([facility]) Monocytes/100 leukocytes in Blood by Automated count 8 % [facility] ([facility]) Eosinophils/100 leukocytes in Blood by Automated count 3 % [facility] ([facility]) Lymphocytes [#/volume] in Blood by Automated count 2.68 10*3/uL 1.20- 4.00 [facility] ([facility]) Basophils/100 leukocytes in Blood by Automated count 1 % [facility] ([facility]) Neutrophils [#/volume] in Blood by Automated count 3.23 10*3/uL 1.80- 7.00 [facility] ([facility]) Monocytes [#/volume] in Blood by Automated count 0.51 10*3/uL 0.00-0. 80 [facility] ([facility]) Eosinophils [#/volume] in Blood by Automated count 0.19 10*3/uL 0.00- 0.50 [facility] ([facility]) Basophils [#/volume] in Blood by Automated count 0.05 10*3/uL 0.00-0. 20 [facility] ([facility]) Nucleated erythrocytes/100 leukocytes [Ratio] in Blood by Automated count 0 /100{WBCs} 0-0 [facility] ([employer] [facility]) ID Date Data Source [id number] 04/22/2021 03:14:35 AM EDT [facility] Name Value Range Interpretation Code Description Data Renetta rce(s) Supporting Document(s) Leukocytes [#/volume] in Blood by Automated count 6.7 10*3/uL 4-10 [facility] Erythrocytes [#/volume] in Blood by Automated count 4.48 10*6/uL 4.6- 6.1 L [facility] Hemoglobin [Mass/volume] in Blood 13.9 g/dL 13.5-18 [facility] Hematocrit [Volume Fraction] of Blood by Automated count 39.4 % 4 1-53 L [facility] Erythrocyte mean corpuscular volume [Entitic volume] by Auto mated count 88.0 fL 80-96 [facility] Erythrocyte mean corpuscular hemoglobin [Entitic mass] by Automated count 31.0 pg 27-33 [facility] Erythrocyte mean corpuscular hemoglobin concentration [Mass/volume] by Automated count 35.2 g/dL 32.0-36.0 [facility] Erythrocyte distribution width [Ratio] by Automated count 13.2 % 11.5-14.5 [facility] Platelets [#/volume] in Blood by Automated count 163 10*3/uL 150-400 [facility] Differential cell count method - Blood [facility] Neutrophils/100 leukocytes in Blood by Automated count 48 % [facility] Lymphocytes/100 leukocytes in Blood by Automated count 40 % [facility] Monocytes/100 leukocytes in Blood by Automated count 8 % [facility] Eosinophils/100 leukocytes in Blood by Automated count 3 % [facility] Basophils/100 leukocytes in Blood by Automated count 1 % [facility] Neutrophils [#/volume] in Blood by Automated count 3.23 10*3/uL 1.8-7 .0 [facility] Lymphocytes [#/volume] in Blood by Automated count 2.68 10*3/uL 1.2-4 .0 [facility] Monocytes [#/volume] in Blood by Automated count 0.51 10*3/uL 0-0.8 [facility] Eosinophils [#/volume] in Blood by Automated count 0.19 10*3/uL 0-0.5 [facility] Basophils [#/volume] in Blood by Automated count 0.05 10*3/uL 0-0.2 [facility] Nucleated erythrocytes/100 leukocytes [Ratio] in Blood by Automated count 0 /100{WBCs} 0-0 [facility] ID Date Data Source [id number] 04/22/2021 03:32:58 AM EDT [facility] Name Value Range Interpretation Code Description Data Renetta rce(s) Supporting Document(s) Bicarbonate [Moles/volume] in Serum 25 mmol/L 22-29 [facility] Chloride [Moles/volume] in Serum or Plasma 104 mmol/L 98-107 [facility] Creatinine [Mass/volume] in Serum or Plasma 0.88 mg/dL 0.70-1.20 [facility] Glucose [Mass/volume] in Serum or Plasma 199 mg/dL 70-140 H [facility] Potassium [Moles/volume] in Serum or Plasma 4.0 mmol/L 3.4-5.1 [facility] Sodium [Moles/volume] in Serum or Plasma 139 mmol/L 136-145 [facility] Urea nitrogen [Mass/volume] in Serum or Plasma 20 mg/dL 6-20 [facility] Anion gap 3 in Serum or Plasma 10 mmol/L 8-15 [facility] Osmolality of Serum or Plasma by calculation 296 mosm/kg 275-300 [facility] Creatinine/Urea nitrogen [Mass Ratio] in Serum or Plasma 23 [facility] Calcium [Mass/volume] in Serum or Plasma 8.4 mg/dL 8.6-10.0 L [facility] Glomerular filtration rate/1.73 sq M pre dicted among non-blacks [Volume Rate/Area] in Serum or Plasma by Creatinine-based formula (MDRD) >6 0 [facility] Glomerular filtration rate/1.73 sq M pre dicted among blacks [Volume Rate/Area] in Serum or Plasma by Creatinine-based formula (MDRD) >60 [facility] ID Date Data Source [id number] 04/22/2021 12:27:00 AM EDT [facility] Name Value Range Interpretation Code Description Data Renetta rce(s) Supporting Document(s) Glucose [Mass/volume] in Capillary blood by Glucometer 218 mg/dL 70- 140 [facility]) ID Date Data Source [id number] 04/21/2021 10:04:00 PM EDT [facility] ([facility]) Name Value Range Interpretation Code Description Data Renetta rce(s) Supporting Document(s) Glucose [Mass/volume] in Capillary blood by Glucometer 153 mg/dL 70- 140 [facility]) ID Date Data Source [id number] 04/21/2021 08:27:54 PM T [facility] Name Value Range Interpretation Code Description Data Renetta rce(s) Supporting Document(s) Glucose [Mass/volume] in Capillary blood by Glucometer 218 mg/dL 70- 140 H [facility] ID Date Data Source [id number] 04/21/2021 06:04:26 PM [facility] Name Value Range Interpretation Code Description Data Renetta rce(s) Supporting Document(s) Glucose [Mass/volume] in Capillary blood by Glucometer 153 mg/dL 70- 140 H [facility] ID Date Data Source [id number] 04/21/2021 04:59:00 PM EDT [facility] ([facility]) Name Value Range Interpretation Code Description Data Renetta rce(s) Supporting Document(s) Glucose [Mass/volume] in Capillary blood by Glucometer 225 mg/dL 70- 140 [facility] ([facility]) ID Date Data Source [id number] 04/21/2021 03:39:00 PM EDT [facility] ([facility]) Name Value Range Interpretation Code Description Data Renetta rce(s) Supporting Document(s) Microscopic observation [Identifier] in Unspecified sp ecimen by Gram stain Laboratory test result Abnormal (applies to non-numeric results) [facility] ([facility]) Microscopic observation [Identifier] in Unspecified sp ecimen by Gram stain Laboratory test result [facility] ([facility]) Service comment Laboratory test result [facility] ([facility]) ID Date Data Source [id number] 04/21/2021 01:11:00 PM EDT [facility] ([facility]) Name Value Range Interpretation Code Description Data Renetta rce(s) Supporting Document(s) Glucose [Mass/volume] in Capillary blood by Glucometer 270 mg/dL 70- 140 [facility] ([facility]) ID Date Data Source [id number] 04/21/2021 12:59:03 PM EDT [facility] Name Value Range Interpretation Code Description Data Renetta rce(s) Supporting Document(s) Glucose [Mass/volume] in Capillary blood by Glucometer 225 mg/dL 70- 140 H [facility] ID Date Data Source [id number] 04/21/2021 09:11:18 AM [facility] Name Value Range Interpretation Code Description Data Renetta rce(s) Supporting Document(s) Glucose [Mass/volume] in Capillary blood by Glucometer 270 mg/dL 70- 140 [facility] ID Date Data Source [id number] 04/21/2021 08:36:00 AM EDT [facility] ([facility]) Name Value Range Interpretation Code Description Data Renetta rce(s) Supporting Document(s) Chloride [Moles/volume] in Serum or Plasma 107 mmol/L 98-107 [facility] ([facility]) Creatinine [Mass/volume] in Serum or Plasma 0.84 mg/dL 0.70-1.20 [facility] ([facility]) Bicarbonate [Moles/volume] in Serum 23 mmol/L 22-29 [facility] ([facility]) Glucose [Mass/volume] in Serum or Plasma 209 mg/dL 70-140 [facility] ([facility]) Potassium [Moles/volume] in Serum or Plasma 3.7 mmol/L 3.4-5.1 [facility] ([facility]) Hemolyzed Sodium [Moles/volume] in Serum or Plasma 140 mmol/L 136-145 [facility] ([facility]) Urea nitrogen [Mass/volume] in Serum or Plasma 24 mg/dL 6-20 [facility] ([facility]) Osmolality of Serum or Plasma by calculation 301 mosm/kg 275.0-300.0 [facility] ([facility]) Anion gap in Serum or Plasma 11 mmol/L 8-15 [facility] ([facility]) Creatinine/Urea nitrogen [Mass Ratio] in Serum or Plasma 29 [facility] ([facility]) Glomerular filtration rate/1.73 sq M pre dicted among non-blacks [Volume Rate/Area] in Serum or Plasma by Creatinine-based formula (MDRD) Laboratory test result [facility] ([employer] [facility]) Glomerular filtration rate/1.73 sq M pre dicted among blacks [Volume Rate/Area] in Serum or Plasma by Creatinine-based formula (MDRD) Laboratory test result [facility] ([facility]) Calcium [Mass/volume] in Serum or Plasma 8.5 mg/dL 8.6-10.0 [facility] ([facility]) ID Date Data Source [id number] 04/21/2021 08:33:00 AM EDT [facility]) Name Value Range Interpretation Code Description Data Renetta rce(s) Supporting Document(s) Leukocytes [#/volume] in Blood by Automated count 8.7 10*3/uL 4.00-10 .00 [facility] ([facility]) Erythrocytes [#/volume] in Blood by Automated count 4.32 10*6/uL 4.60 -6.10 [facility] ([facility]) Hemoglobin [Mass/volume] in Blood 13.3 g/dL 13.5-18.0 [facility] ([facility]) Erythrocyte mean corpuscular volume [Entitic volume] by Auto mated count 88.3 fL 80.0-96.0 [facility] ([facility]) Hematocrit [Volume Fraction] of Blood by Automated count 38.1 % 4 1.0-53.0 [facility] ([facility]) Erythrocyte mean corpuscular hemoglobin [Entitic mass] by Automated count 30.8 pg 27.0-33.0 [facility] ([employer] [facility]) Erythrocyte distribution width [Ratio] by Automated count 13.7 % 11.5-14.5 [facility] ([facility]) Erythrocyte mean corpuscular hemoglobin concentration [Mass/volume] by Automated count 34.8 g/dL 32-36 [facility] Differential cell count method - Blood Laboratory test result [facility] ([facility]) Platelets [#/volume] in Blood by Automated count 165 10*3/uL 150-400 [facility] ([facility]) Monocytes/100 leukocytes in Blood by Automated count 7 % [facility] ([facility]) Lymphocytes/100 leukocytes in Blood by Automated count 18 % [facility] ([facility]) Neutrophils/100 leukocytes in Blood by Automated count 75 % [facility] ([facility]) Eosinophils/100 leukocytes in Blood by Automated count 0 % [facility] ([facility]) Basophils/100 leukocytes in Blood by Automated count 0 % [facility] ([facility]) Lymphocytes [#/volume] in Blood by Automated count 1.55 10*3/uL 1.20- 4.00 [facility] ([facility]) Neutrophils [#/volume] in Blood by Automated count 6.55 10*3/uL 1.80- 7.00 [facility] ([facility]) Eosinophils [#/volume] in Blood by Automated count 0.01 10*3/uL 0.00- 0.50 [facility] ([facility]) Monocytes [#/volume] in Blood by Automated count 0.61 10*3/uL 0.00-0. 80 [facility] ([facility]) Nucleated erythrocytes/100 leukocytes [Ratio] in Blood by Automated count 0 /100{WBCs} 0-0 [facility] ([employer] [facility]) Basophils [#/volume] in Blood by Automated count 0.01 10*3/uL 0.00-0. 20 [facility] ([facility]) ID Date Data Source [id number] 04/21/2021 08:27:00 AM EDT [facility] ([facility]) Name Value Range Interpretation Code Description Data Renetta rce(s) Supporting Document(s) Prothrombin time (PT) 13.4 s 11.6-14.0 [facility] ([facility]) INR in Platelet poor plasma by Coagulation assay 1.06 [facility] ([facility]) Routine intensity oral anticoagulation I NR is typically 2.0-3.0. Target INR must be clinically individualized. ID Date Data Source [id number] 04/21/2021 08:27:00 AM EDT [facility] ([facility]) Name Value Range Interpretation Code Description Data Renetta rce(s) Supporting Document(s) Heparin unfractionated [Units/volume] in Platelet poor plasma by Chromogenic method 0.14 U/ml [facility] ([facility]) ID Date Data Source [id number] 04/21/2021 08:05:19 AM EDT [facility] Name Value Range Interpretation Code Description Data Renetta rce(s) Supporting Document(s) [facility] ZESZQg6dJmKFMiGlo6UhFbSzOFIsWM0hlik0T9N1kLQtA3SikVJup2wdH9HdL7JgSVUwSOAEGM4MiYIy jb2 [file] ++XH5z/12evccc80S862+mN7LLEh/v6vv/v2V99+80 9f/vjycd339Mk+r3ePyGs2jU6xg/inv/Gx2we/P/Yvv/ens74acr12992/9/rJf/nq0y/vL3x8+4vXzD gP5/VgrvEPP/9TIC7kBD39/9U/sDYz4aptxMr6SS9IDo5v4/bAD6g28x3/8o0jReb/+cWf//Qff/jLH3 /494///X99/PYP//mfv/jGP1275C/+w8fPf/enP/zw nx//9j/K+re///pnx77i6Vuw/BTXsz67+mevJffzr//y9AI22k1T3O/840//y8+6I6pJU3ayBv/xt4aD eBkmdn3r/rNRX5HP7K41/hU2BGk636gj+1/5LSp7NxuuRu0+1d6fCkxsev28gSpA85iqTEuv+wPf/fAf J4n49T5lfd2+vvj8q0+/+uqbj19+/ySGs45EWqDTPz 873fyz+9me4ZMn/lWkwZ+58LNfey+jYMsB5/Juam+T6Lc//Om///HjL7/77x/ctr72Bl0gHM61W5/0h4 DKm1Q9tpckWi90n82//Om/f/jL//1XF8+yrl72Tc//PKnxN34+wX/+7vuPf/+fr4v/w5//9XXmY4e1O/ 0+f+LB/vnTT//50+/4Iv5AqyudSQ5n7csJmaS4Ds2l HnyeRu66Bl1pA7928ucU45E333zeTK/+yXc/+fTxu//nh//236xqGEiMx0t8+Xc/iQh7pVAf8e//6y// 9vc/+nQ+ia9/340qC0g/oV/87n/+/nf/9Yff/emvv//0w3d//cOrF8joTnG/+khe86/+/QrHNx6ka73n Eal5cwyYl238/f/5pz/8/jEkcb03rbVs+0efhRQIP/ tf//0aO//+2Re//PL7T7/+/Ktv/bd3oZTv2p8+/dZF15h6/jN/0+EPuf/ah4wfgjhOmGB/7v/44aN8/P k/Zto9H8lfaJ/M//6e+Bpetnc3mb1Lm3o///JkAr9R0tS6ReO+9rvXa/ackN0H6N6vc/XUw7N4oqRv4o XalJf/lyf6/qZAHZyrIdAoBAP0bkWoaQdrayWwNyaT KWauWRFuOdw7FN6PyJYvUFYxQ9A2MBQbqh1bIWLuZAIfyGJkRfUxGMZSUT2FjDNwMC7HZFe1EUBoVXPg GoZoQPXfteR0BHElDTNlNBCgC3YggbFzgKVuKMAcDi9+AW1gh5PgSiAoWCAjRzw9MZ7ChWCqOW5VdMHb cZ8qopPcJ637cgSbEXCmFpblw7KhQVhiYPIXTH4VCV K6RCS8QOZaQx3+KL8ci4SjBdCiHALzQlu3YO2ByWYys7IjBI3QY1UyQSDkXETHHJY7k0TyWRShxmuckb plB3WzQET9wY5tHAT3MKFxGGxyFFHpGEWmRhA1YJVjVDyfTYUqLJCoPMAkZYDiOSn4xZQpQQ8QG0LfCE FyOSPEFVLncoEsOb3rZPOUROPMX77MEZDGDGSLSLLV XXQjJBAsMSwyNW7UhAZdTLF4BMqIAZNVMWlYBQmuMeDfk0G7CLCdP4QnFXVzmbOlBBAUKDwjFhcuFZ5c oEmcznmtX6FhlNWcHNYXTHKzNHUoMMKrKAMaD0Osd7I4W5FmUKvGPRIDNPfDIFowBcS6e42ijmMRNXTp ZXMpID4+PN1dk5TrRx1LWCHoVU2zzje1VK4VtABuMC 2LUXtfpoSyY1ojcbGlVkYxSFFCZP7xW2NjvB50GQO+VyLvOT1cjhm7bvAkVpGrZTHkNNEzYUWcWEqsLX UhVIWjJWXqVHA8UVE4ITXeFeYvOFWtMgH4OhDdOCXjUZFupxUIIHVgNMS5EEUdOVBqGNPtTEGvTOpjPA YqRIt5KWB7EXFiEPRwNG9sNnShVVCuYTVbTAHsLpE7 ZnLbWqZJOATaHZWgXXYnQiXsHOZpVEAtSMcoNTYgGFSxXSd9VIRjFMLtNL0fSrHjWUDsEYMqBYAyXPMh FXKptmEDIHVnTKDnMQV2ZVNhWWPvPKHaLJzjIXCkDIUaCTZ6ZWHmJNPeER1uZqScKVEnBZQ3IvPfLYNi TZPurmXPEEFkWAMoCHY1FTNcKHZfTBQzGByfJSYnWW MsSfF8TYFxQSNaGA5mVwYyUHYcEAQ3FVNgSAOoEUQeuxVIQTMqTMEtFJj1WkIrXMQlRXOkHCvuZCRjKY EdKUliJFJjYDSmMK0eOdOzAGRtUVUfLZWsVYDgGPCxgwZBWYMuSEXaCLS2GaUtMLJiOEJzYNhyDBSvAY ZcAKU7LALdNCCxID4fXmRaDUMuHmJyHwGzYSRxPGYn vgVMSYQuARTnRRXtHVXpRTPaZDApPKonPGWgDKNiBcL2BKMqQNSqHB4wQlCxMAApHBD9IOTrWPEwMKMx geHIAZPxUXYfDDRoCMR0DGKjEOEiEJy1noLoiZAdAnt5Jn0OkFowTAU5Xq8KmfXbTRIjWMRTEd3Nx829 IDUgMCBSCgo+BftmkYBmdQnaELJPUiZ8HiaJRFOVO2W= ID Date Data Source [id number] 04/21/2021 04:13:00 AM EDT [facility] ([facility]) Name Value Range Interpretation Code Description Data Renetta rce(s) Supporting Document(s) Glucose [Mass/volume] in Capillary blood by Glucometer 276 mg/dL 70- 140 [facility] ([facility]) ID Date Data Source [id number] 04/21/2021 04:27:49 AM [facility] Name Value Range Interpretation Code Description Data Renetta rce(s) Supporting Document(s) Heparin unfractionated [Units/volume] in Platelet poor plasma by Chromogenic method 0.14 U/ml [facility] ID Date Data Source [id number] 04/21/2021 04:27:49 AM [facility] Name Value Range Interpretation Code Description Data Renetta rce(s) Supporting Document(s) Prothrombin time (PT) 13.4 s 11.6-14.0 [facility] INR in Platelet poor plasma by Coagulation assay 1.06 [facility] Routine intensity oral anticoagulation I NR is typically 2.0-3.0. Target INR must be clinically individualized. ID Date Data Source [id number] 04/21/2021 04:33:18 AM [facility] Name Value Range Interpretation Code Description Data Renetta rce(s) Supporting Document(s) Leukocytes [#/volume] in Blood by Automated count 8.7 10*3/uL 4-10 [facility] Erythrocytes [#/volume] in Blood by Automated count 4.32 10*6/uL 4.6- 6.1 L [facility] Hemoglobin [Mass/volume] in Blood 13.3 g/dL 13.5-18 L [facility] Hematocrit [Volume Fraction] of Blood by Automated count 38.1 % 4 1-53 L [facility] Erythrocyte mean corpuscular volume [Entitic volume] by Auto mated count 88.3 fL 80-96 [facility] Erythrocyte mean corpuscular hemoglobin [Entitic mass] by Automated count 30.8 pg 27-33 [facility] Erythrocyte mean corpuscular hemoglobin concentration [Mass/volume] by Automated count 34.8 g/dL 32.0-36.0 [facility] Erythrocyte distribution width [Ratio] by Automated count 13.7 % 11.5-14.5 [facility] Platelets [#/volume] in Blood by Automated count 165 10*3/uL 150-400 [facility] Differential cell count method - Blood [facility] Neutrophils/100 leukocytes in Blood by Automated count 75 % [facility] Lymphocytes/100 leukocytes in Blood by Automated count 18 % [facility] Monocytes/100 leukocytes in Blood by Automated count 7 % [facility] Eosinophils/100 leukocytes in Blood by Automated count 0 % [facility] Basophils/100 leukocytes in Blood by Automated count 0 % [facility] Neutrophils [#/volume] in Blood by Automated count 6.55 10*3/uL 1.8-7 .0 [facility] [facility] [#/volume] in Blood by Automated count 1.55 10*3/uL 1.2-4 .0 [facility] Monocytes [#/volume] in Blood by Automated count 0.61 10*3/uL 0-0.8 [facility] Eosinophils [#/volume] in Blood by Automated count 0.01 10*3/uL 0-0.5 [facility] Basophils [#/volume] in Blood by Automated count 0.01 10*3/uL 0-0.2 [facility] Nucleated erythrocytes/100 leukocytes [Ratio] in Blood by Automated count 0 /100{WBCs} 0-0 [facility] ID Date Data Source [id number] 04/21/2021 04:36:19 AM EDT [facility] Name Value Range Interpretation Code Description Data Renetta rce(s) Supporting Document(s) Bicarbonate [Moles/volume] in Serum 23 mmol/L 22-29 [facility] Chloride [Moles/volume] in Serum or Plasma 107 mmol/L 98-107 [facility] Creatinine [Mass/volume] in Serum or Plasma 0.84 mg/dL 0.70-1.20 [facility] Glucose [Mass/volume] in Serum or Plasma 209 mg/dL 70-140 H [facility] Potassium [Moles/volume] in Serum or Plasma 3.7 mmol/L 3.4-5.1 [facility] Hemolyzed Sodium [Moles/volume] in Serum or Plasma 140 mmol/L 136-145 [facility] Urea nitrogen [Mass/volume] in Serum or Plasma 24 mg/dL 6-20 [facility] Anion gap 3 in Serum or Plasma 11 mmol/L 8-15 [facility] Osmolality of Serum or Plasma by calculation 301 mosm/kg 275-300 [facility] Creatinine/Urea nitrogen [Mass Ratio] in Serum or Plasma 29 [facility] Calcium [Mass/volume] in Serum or Plasma 8.5 mg/dL 8.6-10.0 L [facility] Glomerular filtration rate/1.73 sq M pre dicted among non-blacks [Volume Rate/Area] in Serum or Plasma by Creatinine-based formula (MDRD) >6 0 [facility] Glomerular filtration rate/1.73 sq M pre dicted among blacks [Volume Rate/Area] in Serum or Plasma by Creatinine-based formula (MDRD) >60 [facility] ID Date Data Source [id number] 04/21/2021 02:07:00 AM EDT [facility] ([facility]) Name Value Range Interpretation Code Description Data Renetta rce(s) Supporting Document(s) Heparin unfractionated [Units/volume] in Platelet poor plasma by Chromogenic method 0.20 U/ml [facility] ([facility]) ID Date Data Source [id number] 04/21/2021 01:47:00 AM EDT [facility] ([facility]) Name Value Range Interpretation Code Description Data Renetta rce(s) Supporting Document(s) Glucose [Mass/volume] in Capillary blood by Glucometer 324 mg/dL 70- 140 [facility] ([facility]) ID Date Data Source [id number] 04/21/2021 12:13:25 AM EDT [facility] Name Value Range Interpretation Code Description Data Renetta rce(s) Supporting Document(s) Glucose [Mass/volume] in Capillary blood by Glucometer 276 mg/dL 70- 140 H [facility] ID Date Data Source [id number] 04/20/2021 10:04:00 PM EDT [facility] ([facility]) Name Value Range Interpretation Code Description Data Renetta rce(s) Supporting Document(s) Glucose [Mass/volume] in Capillary blood by Glucometer 298 mg/dL 70- 140 [facility] ([facility]) ID Date Data Source [id number] 04/20/2021 09:47:18 PM EDT [facility] Name Value Range Interpretation Code Description Data Renetta rce(s) Supporting Document(s) Glucose [Mass/volume] in Capillary blood by Glucometer 324 mg/dL 70- 140 H [facility] ID Date Data Source [id number] 04/20/2021 10:07:43 PM EDT [facility] Name Value Range Interpretation Code Description Data Renetta rce(s) Supporting Document(s) Heparin unfractionated [Units/volume] in Platelet poor plasma by Chromogenic method 0.20 U/ml [facility] ID Date Data Source [id number] 04/20/2021 09:19:00 PM EDT [facility] ([facility]) Name Value Range Interpretation Code Description Data Renetta rce(s) Supporting Document(s) Troponin T High Sensitivity 22 ng/L [facility] ([facility]) ID Date Data Source [id number] 04/20/2021 07:15:00 PM EDT [facility] ([facility]) Name Value Range Interpretation Code Description Data Renetta rce(s) Supporting Document(s) Heparin unfractionated [Units/volume] in Platelet poor plasma by Chromogenic method 0.22 U/ml [facility] ([facility]) ID Date Data Source [id number] 04/20/2021 06:51:00 PM EDT [facility] ([facility]) Name Value Range Interpretation Code Description Data Renetta rce(s) Supporting Document(s) Glucose [Mass/volume] in Capillary blood by Glucometer 250 mg/dL 70- 140 [facility] ([facility]) ID Date Data Source [id number] 04/20/2021 06:04:13 PM EDT [facility] Name Value Range Interpretation Code Description Data Renetta rce(s) Supporting Document(s) Glucose [Mass/volume] in Capillary blood by Glucometer 298 mg/dL 70- 140 H [facility] ID Date Data Source [id number] 04/20/2021 05:19:08 PM EDT [facility] Name Value Range Interpretation Code Description Data Renetta rce(s) Supporting Document(s) Cardiactroponin T pnl SerPlHS 22 ng/L <22 H [facility] ID Date Data Source [id number] 04/20/2021 02:51:20 PM EDT [facility] Name Value Range Interpretation Code Description Data Renetta rce(s) Supporting Document(s) Glucose [Mass/volume] in Capillary blood by Glucometer 250 mg/dL 70- 140 H [facility] ID Date Data Source [id number] 04/20/2021 03:15:29 PM EDT [facility] Name Value Range Interpretation Code Description Data Renetta rce(s) Supporting Document(s) Heparin unfractionated [Units/volume] in Platelet poor plasma by Chromogenic method 0.22 U/ml [facility] ID Date Data Source [id number] 04/20/2021 02:12:00 PM EDT [facility] ([facility]) Name Value Range Interpretation Code Description Data Renetta rce(s) Supporting Document(s) pH of Arterial blood 7.40 7.38-7.44 [facility] ([facility]) Oxygen [Partial pressure] in Arterial blood 143 95-100 [facility] ([facility]) Carbon dioxide [Partial pressure] in Arterial blood 39 mm[Hg] 35-40 [facility] ([facility]) Base excess in Arterial blood by calculation Laboratory test result [facility] ([facility]) Oxygen saturation in Arterial blood 99 % 94-100 [facility] ([facility]) Carbon dioxide, total [Moles/volume] in Arterial blood 25 mmol/L [facility] ([facility]) Oxygen/Inspired gas setting [Volume Fraction] Ventilator 0.40 [facility] ([facility]) ID Date Data Source [id number] 04/20/2021 02:03:00 PM EDT [facility] ([facility]) Name Value Range Interpretation Code Description Data Renetta rce(s) Supporting Document(s) Glucose [Mass/volume] in Capillary blood by Glucometer 157 mg/dL 70- 140 [facility] ([facility]) ID Date Data Source [id number] 04/20/2021 01:46:00 PM EDT [facility] ([facility]) Name Value Range Interpretation Code Description Data Renetta rce(s) Supporting Document(s) Borrelia burgdorferi IgM Ab [Presence] in Serum by Imm unoassay Laboratory test result [facility] ([employer] [facility]) Borrelia burgdorferi IgG Ab [Presence] in Serum by Imm unoassay Laboratory test result [facility] ([facility] [place]) ID Date Data Source [id number] 04/20/2021 12:54:00 PM EDT [facility] ([facility]) Name Value Range Interpretation Code Description Data Renetta rce(s) Supporting Document(s) Troponin T High Sensitivity 33 ng/L [facility] ([facility]) ID Date Data Source [id number] 04/20/2021 11:50:00 AM EDT [facility] ([facility]) Name Value Range Interpretation Code Description Data Renetta rce(s) Supporting Document(s) Lactate [Moles/volume] in Serum or Plasma 2.1 mmol/L 0.5-2.2 [facility] ([facility]) ID Date Data Source [id number] 04/20/2021 11:25:00 AM EDT [facility] ([facility]) Name Value Range Interpretation Code Description Data Renetta rce(s) Supporting Document(s) INR in Platelet poor plasma by Coagulation assay 1.08 [facility] ([facility]) Routine intensity oral anticoagulation I NR is typically 2.0-3.0. Target INR must be clinically individualized. Prothrombin time (PT) 13.6 s 11.6-14.0 [facility] ([facility]) ID Date Data Source [id number] 04/20/2021 11:25:00 AM EDT [facility] ([facility]) Name Value Range Interpretation Code Description Data Renetta rce(s) Supporting Document(s) Heparin unfractionated [Units/volume] in Platelet poor plasma by Chromogenic method 0.25 U/ml [facility] ([facility]) ID Date Data Source [id number] 04/20/2021 10:48:04 AM EDT [facility] XR CHEST FRONTAL ONLY [id number] RESULTI nterpreted by:Wilma Marr MDINDICATION: Concern for pneumonia.TECHNIQUE: XR CHEST FRONTAL ONLY [id number], 04/20/2021 9:14 AM.COMPARISON: Chest radiograph dated 04/19/2021.FINDINGS: [...] rce(s) Supporting Document(s) ID Date Data Source [id number] 04/20/2021 10:18:00 AM EDT [facility] ([facility]) Name Value Range Interpretation Code Description Data Renetta rce(s) Supporting Document(s) Glucose [Mass/volume] in Capillary blood by Glucometer 173 mg/dL 70- 140 [facility] ([facility]) ID Date Data Source [id number] 04/20/2021 10:03:19 AM [facility] Name Value Range Interpretation Code Description Data Renetta rce(s) Supporting Document(s) Glucose [Mass/volume] in Capillary blood by Glucometer 157 mg/dL 70- 140 H [facility] ID Date Data Source [id number] 04/20/2021 10:12:27 AM [facility] Value Range Interpretation Code Description Data Renetta rce(s) Supporting Document(s) pH of Arterial blood 7.40 7.38-7.44 [facility] Carbon dioxide [Partial pressure] in Arterial blood 39 mm[Hg] 35-40 [facility] Oxygen [Partial pressure] in Arterial blood 143 mmHg 95-100 H [facility] Oxygen saturation in Arterial blood 99 % 94-100 [facility] Base excess in Arterial blood by calculation [facility] Carbon dioxide, total [Moles/volume] in Arterial blood 25 mmol/L [facility] Oxygen/Inspired gas setting [Volume Fraction] Ventilator 0.40 [facility] ID Date Data Source [id number] 04/20/2021 09:46:43 AM [facility] Name Value Range Interpretation Code Description Data Renetta rce(s) Supporting Document(s) Borrelia burgdorferi IgG Ab [Presence] in Serum by Immunoassay Negative [facility] Borrelia burgdorferi IgM Ab [Presence] in Serum by Immunoassay Negative [facility] ID Date Data Source [id number] 04/20[facility] Code Description Data Renetta rce(s) Supporting Document(s) Cardiactroponin T pnl SerPlHS 33 ng/L <22 H [facility] ID Date Data Source [id number] 04/20/2021 07:50:41 AM EDT [facility] Value Range Interpretation Code Description Data Renetta rce(s) Supporting Document(s) Lactate [Moles/volume] in Serum or Plasma 2.1 mmol/l 0.5-2.2 [facility] ID Date Data Source [id number] 04/20/2021 07:25:26 AM [facility] Value Range Interpretation Code Description Data Renetta rce(s) Supporting Document(s) Prothrombin time (PT) 13.6 s 11.6-14.0 [facility] INR in Platelet poor plasma by Coagulation assay 1.08 [facility] Routine intensity oral anticoagulation I NR is typically 2.0-3.0. Target INR must be clinically individualized. ID Date Data Source [id number] 04/20/2021 07:25:26 AM T [facility] Value Range Interpretation Code Description Data Renetta rce(s) Supporting Document(s) Heparin unfractionated [Units/volume] in Platelet poor plasma by Chromogenic method 0.25 U/ml [facility] ID Date Data Source [id number] 04/20/2021 [facility] Interpretation Code Description Data Renetta rce(s) Supporting Document(s) Glucose [Mass/volume] in Capillary blood by Glucometer 173 mg/dL 70- 140 H [facility] ID Date Data Source [id number] 04/20/2021 05:54:00 AM EDT [facility] ([facility]) Name Value Range Interpretation Code Description Data Renetta rce(s) Supporting Document(s) Glucose [Mass/volume] in Capillary blood by Glucometer 226 mg/dL 70- 140 [facility] ([facility]) ID Date Data Source [id number] 04/20/2021 04:57:00 AM EDT [facility] ([facility]) Name Value Range Interpretation Code Description Data Renetta rce(s) Supporting Document(s) Bicarbonate [Moles/volume] in Serum 22 mmol/L 22-29 [facility] ([facility]) Glucose [Mass/volume] in Serum or Plasma 223 mg/dL 70-140 [facility] ([facility]) Chloride [Moles/volume] in Serum or Plasma 105 mmol/L 98-107 [facility] ([facility]) Creatinine [Mass/volume] in Serum or Plasma 1.15 mg/dL 0.70-1.20 [facility] ([facility]) Sodium [Moles/volume] in Serum or Plasma 137 mmol/L 136-145 [facility] ([facility]) Potassium [Moles/volume] in Serum or Plasma 4.2 mmol/L 3.4-5.1 [facility] ([facility]) Osmolality of Serum or Plasma by calculation 297 mosm/kg 275.0-300.0 [facility] ([facility]) Urea nitrogen [Mass/volume] in Serum or Plasma 29 mg/dL 6-20 [facility] ([facility]) Anion gap in Serum or Plasma 10 mmol/L 8-15 [facility] ([facility]) Creatinine/Urea nitrogen [Mass Ratio] in Serum or Plasma 25 [facility] ([facility]) Calcium [Mass/volume] in Serum or Plasma 8.1 mg/dL 8.6-10.0 [facility] ([facility]) Glomerular filtration rate/1.73 sq M pre dicted among non-blacks [Volume Rate/Area] in Serum or Plasma by Creatinine-based formula (MDRD) 68 [facility] ([facility]) Glomerular filtration rate/1.73 sq M pre dicted among blacks [Volume Rate/Area] in Serum or Plasma by Creatinine-based formula (MDRD) 79 [facility] ([facility]) ID Date Data Source [id number] 04/20/2021 04:54:00 AM EDT [facility] ([facility]) Name Value Range Interpretation Code Description Data Renetta rce(s) Supporting Document(s) Lactate [Moles/volume] in Serum or Plasma 2.4 mmol/L 0.5-2.2 [facility] ([facility]) ID Date Data Source [id number] 04/20/2021 04:36:00 AM EDT [facility] ([facility]) Name Value Range Interpretation Code Description Data Renetta rce(s) Supporting Document(s) Leukocytes [#/volume] in Blood by Automated count 13.3 10*3/uL 4.00-1 0.00 [facility] ([facility]) Hemoglobin [Mass/volume] in Blood 13.9 g/dL 13.5-18.0 [facility] ([facility]) Erythrocytes [#/volume] in Blood by Automated count 4.55 10*6/uL 4.60 -6.10 [facility] ([facility]) Erythrocyte mean corpuscular volume [Entitic volume] by Auto mated count 89.1 fL 80.0-96.0 [facility] ([facility]) Erythrocyte mean corpuscular hemoglobin [Entitic mass] by Automated count 30.6 pg 27.0-33.0 [facility] ([employer] [facility]) Hematocrit [Volume Fraction] of Blood by Automated count 40.5 % 4 1.0-53.0 [facility] ([facility]) Platelets [#/volume] in Blood by Automated count 195 10*3/uL 150-400 [facility] ([facility]) Erythrocyte distribution width [Ratio] by Automated count 13.8 % 11.5-14.5 [facility] ([facility]) Erythrocyte mean corpuscular hemoglobin concentration [Mass/volume] by Automated count 34.3 g/dL 32-36 [facility] ([facility]) Differential cell count method - Blood Laboratory test result [facility] ([facility]) Lymphocytes/100 leukocytes in Blood by Automated count 11 % [facility] ([facility]) Neutrophils/100 leukocytes in Blood by Automated count 82 % [facility] ([facility]) Monocytes/100 leukocytes in Blood by Automated count 7 % [facility] ([facility]) Basophils/100 leukocytes in Blood by Automated count 0 % [facility] ([facility]) Eosinophils/100 leukocytes in Blood by Automated count 0 % [facility] ([facility]) Neutrophils [#/volume] in Blood by Automated count 10.83 10*3/uL 1.80 -7.00 [facility] ([facility]) Monocytes [#/volume] in Blood by Automated count 0.94 10*3/uL 0.00-0. 80 [facility] ([facility]) Lymphocytes [#/volume] in Blood by Automated count 1.50 10*3/uL 1.20- 4.00 [facility] ([facility]) Basophils [#/volume] in Blood by Automated count 0.03 10*3/uL 0.00-0. 20 [facility] ([facility]) Eosinophils [#/volume] in Blood by Automated count 0.01 10*3/uL 0.00- 0.50 [facility] ([facility]) Nucleated erythrocytes/100 leukocytes [Ratio] in Blood by Automated count 0 /100{WBCs} 0-0 [facility] ([employer] [facility]) ID Date Data Source [id number] 04/20/2021 02:31:00 AM EDT [facility] ([facility]) Name Value Range Interpretation Code Description Data Renteta rce(s) Supporting Document(s) Heparin unfractionated [Units/volume] in Platelet poor plasma by Chromogenic method 0.31 U/ml [facility] Date Data Source [id number] 04/20/2021 01:54:13 AM EDT [facility] Name Value Range Interpretation Code Description Data Renetta rce(s) Supporting Document(s) Glucose [Mass/volume] in Capillary blood by Glucometer 226 mg/dL 70- 140 H [facility] ID Date Data Source [id number] 04/20/2021 01:38:00 AM EDT [facility] ([facility]) Name Value Range Interpretation Code Description Data Renetta rce(s) Supporting Document(s) Glucose [Mass/volume] in Capillary blood by Glucometer 229 mg/dL 70- 140 [facility] ([facility]) ID Date Data Source [id number] 04/20/2021 01:22:00 AM EDT [facility] ([facility]) Name Value Range Interpretation Code Description Data Renetta rce(s) Supporting Document(s) pH of Arterial blood 7.36 7.38-7.44 [facility] ([facility]) Carbon dioxide [Partial pressure] in Arterial blood 42 mm[Hg] 35-40 [facility] ([facility]) Oxygen [Partial pressure] in Arterial blood 92 95-100 [facility] ([facility]) Oxygen saturation in Arterial blood 98 % 94-100 [facility] ([facility]) Base excess in Arterial blood by calculation Laboratory test result [facility] ([facility]) Carbon dioxide, total [Moles/volume] in Arterial blood 25 mmol/L [facility] ([facility]) Oxygen/Inspired gas setting [Volume Fraction] Ventilator 0.40 [facility] ([facility]) ID Date Data Source [id number] 04/20/2021 12:36:44 AM EDT [facility] Name Value Range Interpretation Code Description Data Renetta rce(s) Supporting Document(s) Leukocytes [#/volume] in Blood by Automated count 13.3 10*3/uL 4-10 H [facility] Erythrocytes [#/volume] in Blood by Automated count 4.55 10*6/uL 4.6- 6.1 L [facility] Hemoglobin [Mass/volume] in Blood 13.9 g/dL 13.5-18 [facility] Hematocrit [Volume Fraction] of Blood by Automated count 40.5 % 4 1-53 L [facility] Erythrocyte mean corpuscular volume [Entitic volume] by Auto mated count 89.1 fL 80-96 [facility] Erythrocyte mean corpuscular hemoglobin [Entitic mass] by Automated count 30.6 pg 27-33 [facility] Erythrocyte mean corpuscular hemoglobin concentration [Mass/volume] by Automated count 34.3 g/dL 32.0-36.0 [facility] E[facility] distribution width [Ratio] by Automated count 13.8 % 11.5-14.5 [facility] Platelets [#/volume] in Blood by Automated count 195 10*3/uL 150-400 [facility] Differential cell count method - Blood [facility] Neutrophils/100 leukocytes in Blood by Automated count 82 % [facility] Lymphocytes/100 leukocytes in Blood by Automated count 11 % [facility] Monocytes/100 leukocytes in Blood by Automated count 7 % [facility] Eosinophils/100 leukocytes in Blood by Automated count 0 % [facility] Basophils/100 leukocytes in Blood by Automated count 0 % [facility] Neutrophils [#/volume] in Blood by Automated count 10.83 10*3/uL 1.8- 7.0 H [facility] Lymphocytes [#/volume] in Blood by Automated count 1.50 10*3/uL 1.2-4 .0 [facility] Monocytes [#/volume] in Blood by Automated count 0.94 10*3/uL 0-0.8 H [facility] Eosinophils [#/volume] in Blood by Automated count 0.01 10*3/uL 0-0.5 [facility] Basophils [#/volume] in Blood by Automated count 0.03 10*3/uL 0-0.2 [facility] Nucleated erythrocytes/100 leukocytes [Ratio] in Blood by Automated count 0 /100{WBCs} 0-0 [facility] ID Date Data Source [id number] 04/20/2021 12:57:42 AM EDT [facility] Name Value Range Interpretation Code Description Data Renetta rce(s) Supporting Document(s) Bicarbonate [Moles/volume] in Serum 22 mmol/L 22-29 [facility] Chloride [Moles/volume] in Serum or Plasma 105 mmol/L 98-107 [facility] Creatinine [Mass/volume] in Serum or Plasma 1.15 mg/dL 0.70-1.20 [facility] Glucose [Mass/volume] in Serum or Plasma 223 mg/dL 70-140 H [facility] Potassium [Moles/volume] in Serum or Plasma 4.2 mmol/L 3.4-5.1 [facility] Sodium [Moles/volume] in Serum or Plasma 137 mmol/L 136-145 [facility] Urea nitrogen [Mass/volume] in Serum or Plasma 29 mg/dL 6-20 H [facility] Anion gap 3 in Serum or Plasma 10 mmol/L 8-15 [facility] Osmolality of Serum or Plasma by calculation 297 mosm/kg 275-300 [facility] Creatinine/Urea nitrogen [Mass Ratio] in Serum or Plasma 25 [facility] Calcium [Mass/volume] in Serum or Plasma 8.1 mg/dL 8.6-10.0 L [facility] Glomerular filtration rate/1.73 sq M pre dicted among non-blacks [Volume Rate/Area] in Serum or Plasma by Creatinine-based formula (MDRD) 68 mL/min/1.73m2 >60 [facility] Glomerular filtration rate/1.73 sq M pre dicted among blacks [Volume Rate/Area] in Serum or Plasma by Creatinine-based formula (MDRD) 79 mL/min/1.73m2 >60 [facility] ID Date Data Source [id number] 04/20/2021 12:54:56 AM EDT [facility] Name Value Range Interpretation Code Description Data Renetta rce(s) Supporting Document(s) Lactate [Moles/volume] in Serum or Plasma 2.4 mmol/l 0.5-2.2 H [facility] ID Date Data Source [id number] 04/19/2021 10:24:00 PM EDT [facility] ([facility]) Name Value Range Interpretation Code Description Data Renetta rce(s) Supporting Document(s) Lactate [Moles/volume] in Serum or Plasma 3.5 mmol/L 0.5-2.2 [facility] ([facility]) ID Date Data Source [id number] 04/19/2021 10:21:00 PM EDT [facility] ([facility]) Name Value Range Interpretation Code Description Data Renetta rce(s) Supporting Document(s) Heparin unfractionated [Units/volume] in Platelet poor plasma by Chromogenic method 0.43 U/ml [facility]) ID Date Data Source [id number] 04/19/2021 09:59:00 PM EDT [facility] ([facility]) Name Value Range Interpretation Code Description Data Renetta rce(s) Supporting Document(s) Glucose [Mass/volume] in Capillary blood by Glucometer 260 mg/dL 70- 140 [facility] ([facility]) ID Date Data Source [id number] 04/19/2021 10:31:07 PM EDT [facility] Value Range Interpretation Code Description Data Renetta rce(s) Supporting Document(s) Heparin unfractionated [Units/volume] in Platelet poor plasma by Chromogenic method 0.31 U/ml [facility] ID Date Data Source [id number] 04/19/2021 09:38:07 PM EDT [facility] Name Value Range Interpretation Code Description Data Renetta rce(s) Supporting Document(s) Glucose [Mass/volume] in Capillary blood by Glucometer 229 mg/dL 70- 140 H [facility] ID Date Data Source [id number] 04/19/2021 09:05:00 PM EDT [facility]) Name Value Range Interpretation Code Description Data Renetta rce(s) Supporting Document(s) Laboratory test finding (navigational concept) Laboratory test result [facility] ([facility]) Test performed using [employer] Simplexa C ovid-19 Direct Assay. This test is only for use under Food and Drug Administration's Emergency Use Authorization. Additional information is available on the following [employer] websites for healthcare providers and patients. https://www.Faves.gov/media/012454/download, https://www.Faves.gov/C8 [employer]/912121/download Specimen source [Identifier] of Unspecified specimen Laboratory cosme t result [facility] ([facility]) Sars CoV-2 Laboratory test result [facility] ([facility]) First Covid-19 Test? 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 Laboratory test result [facility] ([facility]) Symptomatic for Covid-19 as defined by CDC? Laboratory test result [facility] ([facility]) When did you start to experience these symptoms [Date and time] [PhenX] Laboratory test result [facility] ([facility]) Patient was hospitalized because of this condition Laboratory test re sult [facility] ([facility]) Admitted to [facility] for Covid-19? Laboratory test result [facility] ([facility]) ? Laboratory test result [facility] ([facility]) Resident in a congregate (group) care setting? Laboratory test result [facility] ([facility]) ID Date Data Source [id number] 04/19/2021 09:22:22 PM EDT [facility] Name Value Range Interpretation Code Description Data Renetta rce(s) Supporting Document(s) pH of Arterial blood 7.36 7.38-7.44 L [facility] Carbon dioxide [Partial pressure] in Arterial blood 42 mm[Hg] 35-40 H [facility] Oxygen [Partial pressure] in Arterial blood 92 mmHg 95-100 L [facility] Oxygen saturation in Arterial blood 98 % 94-100 [facility] Base excess in Arterial blood by calculation [facility] Carbon dioxide, total [Moles/volume] in Arterial blood 25 mmol/L [facility] Oxygen/Inspired gas setting [Volume Fraction] Ventilator 0.40 [facility] ID Date Data Source [id number] 04/19/2021 08:16:00 PM EDT [facility] ([facility]) Name Value Range Interpretation Code Description Data Renetta rce(s) Supporting Document(s) Carbon dioxide [Partial pressure] in Arterial blood 41 mm[Hg] 35-40 [facility] ([facility]) pH of Arterial blood 7.34 7.38-7.44 [facility] ([facility]) Oxygen [Partial pressure] in Arterial blood 109 95-100 [facility] ([facility]) Oxygen saturation in Arterial blood 98 % 94-100 [facility] ([facility]) Base excess in Arterial blood by calculation Laboratory test result [facility] ([facility]) Carbon dioxide, total [Moles/volume] in Arterial blood 23 mmol/L [facility] ([facility]) Oxygen/Inspired gas setting [Volume Fraction] Ventilator 0.40 [facility] ([facility]) ID Date Data Source [id number] 04/19/2021 07:18:00 PM EDT [facility] ([facility]) Name Value Range Interpretation Code Description Data Renetta rce(s) Supporting Document(s) Heparin unfractionated [Units/volume] in Platelet poor plasma by Chromogenic method 0.55 U/ml [facility] ([facility]) ID Date Data Source [id number] 04/19/2021 06:18:00 PM EDT [facility] ([facility]) Name Value Range Interpretation Code Description Data Renetta rce(s) Supporting Document(s) Glucose [Mass/volume] in Capillary blood by Glucometer 278 mg/dL 70- 140 [facility] ([facility]) ID Date Data Source [id number] 04/19/2021 06:24:24 PM EDT [facility] Name Value Range Interpretation Code Description Data Renetta rce(s) Supporting Document(s) Lactate [Moles/volume] in Serum or Plasma 3.5 mmol/l 0.5-2.2 H [facility] ID Date Data Source [id number] 04/19/2021 06:21:46 PM EDT [facility] Name Value Range Interpretation Code Description Data Renetta rce(s) Supporting Document(s) Heparin unfractionated [Units/volume] in Platelet poor plasma by Chromogenic method 0.43 U/ml [facility] ID Date Data Source [id number] 04/19/2021 05:59:26 PM EDT [facility] Name Value Range Interpretation Code Description Data Renetta rce(s) Supporting Document(s) Glucose [Mass/volume] in Capillary blood by Glucometer 260 mg/dL 70- 140 H [facility] ID Date Data Source [id number] 04/19/2021 04:37:00 PM EDT [facility] ([facility]) Name Value Range Interpretation Code Description Data Renetta rce(s) Supporting Document(s) Amphetamine [Presence] in Urine by Screen method Laboratory test resu lt [facility] ([facility]) Benzoylecgonine [Presence] in Urine by Screen method Laboratory cosme t result [facility] ([facility]) Cannabinoids [Presence] in Urine by Screen method Laboratory test res ult [facility] ([facility]) Benzodiazepines [Presence] in Urine by Screen method Laboratory cosme t result [facility] ([facility]) Methadone [Presence] in Urine by Screen method Laboratory test result [facility] ([facility]) Opiates [Presence] in Urine by Screen method Laboratory test res ult Abnormal (applies to non-numeric results) [facility] ([facility]) (NOTE) Positive results are presumptive and unconfirmed;confirmatory testing can be ordered at the [facility] at [phone] or [facility] at [phone] within 5 days of collection. Oxycodone [Presence] in Urine by Screen method Laboratory test result [facility] ([facility]) Fentanyl+Norfentanyl [Presence] in Urine by Screen met hod Laboratory test result [facility] ([employer] [facility]) Service comment Laboratory test result [facility] ([facility]) Results below the indicated cutoff (ng/m L), are reported as "Negative." Note: for medical purposes only; not valid for legal or employment testing. ID Date Data Source [id number] 04/19/2021 04:35:00 PM EDT [facility] ([facility]) Name Value Range Interpretation Code Description Data Renetta rce(s) Supporting Document(s) Erythrocyte sedimentation rate Laboratory test result [facility] ([facility]) ID Date Data Source [id number] 04/19/2021 04:32:00 PM EDT [facility] ([facility]) Name Value Range Interpretation Code Description Data Renetta rce(s) Supporting Document(s) Glucose [Mass/volume] in Capillary blood by Glucometer 329 mg/dL 70- 140 [facility] ([facility]) ID Date Data Source [id number] 04/19/2021 04:29:00 PM EDT [facility] ([facility]) Name Value Range Interpretation Code Description Data Renetta rce(s) Supporting Document(s) Hemoglobin A1c/Hemoglobin.total in Blood by HPLC 8.3 % 4.0-6.0 [facility] ([facility]) (NOTE) <5.7% Average risk of diabetes(AD A) 5.7-6.4% Increased risk of diabetes(ADA) >/= 6.5% Diagnostic for diabetes(ADA) Glucose mean value [Mass/volume] in Blood Estimated fr om glycated hemoglobin 192 mg/dL [facility] ([employer] [facility]) ID Date Data Source [id number] 04/19/2021 04:16:30 PM EDT [facility] Name Value Range Interpretation Code Description Data Renetta rce(s) Supporting Document(s) pH of Arterial blood 7.34 7.38-7.44 L [facility] Carbon dioxide [Partial pressure] in Arterial blood 41 mm[Hg] 35-40 H [facility] Oxygen [Partial pressure] in Arterial blood 109 mmHg 95-100 H [facility] Oxygen saturation in Arterial blood 98 % 94-100 [facility] Base excess in Arterial blood by calculation [facility] Carbon dioxide, total [Moles/volume] in Arterial blood 23 mmol/L [facility] Oxygen/Inspired gas setting [Volume Fraction] Ventilator 0.40 [facility] ID Date Data Source [id number] 04/19/2021 02:58:00 PM EDT [facility] ([facility]) Name Value Range Interpretation Code Description Data Renetta rce(s) Supporting Document(s) Leukocytes [#/volume] in Blood by Automated count 13.6 10*3/uL 4.00-1 0.00 [facility] ([facility]) Hemoglobin [Mass/volume] in Blood 15.6 g/dL 13.5-18.0 [facility] ([facility]) Erythrocytes [#/volume] in Blood by Automated count 5.00 10*6/uL 4.60 -6.10 [facility] ([facility]) Erythrocyte mean corpuscular volume [Entitic volume] by Auto mated count 89.2 fL 80.0-96.0 [facility] ([facility]) Hematocrit [Volume Fraction] of Blood by Automated count 44.6 % 4 1.0-53.0 [facility] ([facility]) Erythrocyte mean corpuscular hemoglobin [Entitic mass] by Automated count 31.2 pg 27.0-33.0 [facility] ([employer] [facility]) Erythrocyte mean corpuscular hemoglobin concentration [Mass/volume] by Automated count 35.0 g/dL 32-36 [facility] Erythrocyte distribution width [Ratio] by Automated count 13.9 % 11.5-14.5 [facility] ([facility]) Platelets [#/volume] in Blood by Automated count 195 10*3/uL 150-400 [facility] ([facility]) Neutrophils/100 leukocytes in Blood by Automated count 92 % [facility] ([facility]) Differential cell count method - Blood Laboratory test result [facility] ([facility]) Monocytes/100 leukocytes in Blood by Automated count 2 % [facility] ([facility]) Lymphocytes/100 leukocytes in Blood by Automated count 6 % [facility] ([facility]) Basophils/100 leukocytes in Blood by Automated count 0 % [facility] ([facility]) Neutrophils [#/volume] in Blood by Automated count 12.46 10*3/uL 1.80 -7.00 [facility] ([facility]) Eosinophils/100 leukocytes in Blood by Automated count 0 % [facility] ([facility]) Monocytes [#/volume] in Blood by Automated count 0.26 10*3/uL 0.00-0. 80 [facility] ([facility]) Eosinophils [#/volume] in Blood by Automated count 0.01 10*3/uL 0.00- 0.50 [facility] ([facility]) Lymphocytes [#/volume] in Blood by Automated count 0.77 10*3/uL 1.20- 4.00 [facility] ([facility]) Nucleated erythrocytes/100 leukocytes [Ratio] in Blood by Automated count 0 /100{WBCs} 0-0 [facility] ([facility] [place]) Basophils [#/volume] in Blood by Automated count 0.05 10*3/uL 0.00-0. 20 [facility] ([facility]) ID Date Data Source [id number] 04/19/2021 02:29:00 PM EDT [facility] ([facility]) Name Value Range Interpretation Code Description Data Renetta rce(s) Supporting Document(s) Triglyceride [Mass/volume] in Serum or Plasma 153 mg/dL [facility] ([facility]) Cholesterol [Mass/volume] in Serum or Plasma 177 mg/dL [facility] ([facility]) Cholesterol in HDL [Mass/volume] in Serum or Plasma 43 mg/dL [facility] ([facility]) Cholesterol in LDL [Mass/volume] in Serum or Plasma by calculati on 104 mg/dL [facility] ([facility]) Cholesterol in VLDL [Mass/volume] in Serum or Plasma by calc ulation 31 mg/dL 16-42 [facility] ([facility]) Cholesterol non HDL [Mass/volume] in Serum or Plasma 134 mg/dL [facility] ([facility]) ID Date Data Source [id number] 04/19/2021 02:29:00 PM EDT [facility] ([facility]) Name Value Range Interpretation Code Description Data Renetta rce(s) Supporting Document(s) Thyrotropin [Units/volume] in Serum or Plasma 5.500 u[IU]/mL 0.27-4.2 0 [facility] ([facility]) ID Date Data Source [id number] 04/19/2021 02:29:00 PM EDT [facility] ([facility]) Name Value Range Interpretation Code Description Data Renetta rce(s) Supporting Document(s) Thyroxine (T4) free [Mass/volume] in Serum or Plasma 1.09 ng/dL 0.93- 1.70 [facility] ([facility]) ID Date Data Source [id number] 04/19/2021 02:29:00 PM EDT [facility] ([facility]) Name Value Range Interpretation Code Description Data Renetta rce(s) Supporting Document(s) C reactive protein [Mass/volume] in Serum or Plasma Laboratory test result [facility] ([facility]) ID Date Data Source [id number] 04/19/2021 02:29:00 PM EDT [facility] ([facility]) Name Value Range Interpretation Code Description Data Renetta rce(s) Supporting Document(s) Troponin T High Sensitivity 30 ng/L [facility] ([facility]) ID Date Data Source [id number] 04/19/2021 02:29:00 PM EDT [facility] ([facility]) Name Value Range Interpretation Code Description Data Renetta rce(s) Supporting Document(s) Bilirubin.total [Mass/volume] in Serum or Plasma 0.7 mg/dL [facility] ([facility]) Albumin [Mass/volume] in Serum or Plasma by Bromocresol green (BCG) dye binding method 4.3 g/dL 3.5-5.2 [facility] ([facility]) Chloride [Moles/volume] in Serum or Plasma 100 mmol/L 98-107 [facility] ([facility]) Calcium [Mass/volume] in Serum or Plasma 8.3 mg/dL 8.6-10.0 [facility] ([facility]) Glucose [Mass/volume] in Serum or Plasma 365 mg/dL 70-140 [facility] ([facility]) Creatinine [Mass/volume] in Serum or Plasma 1.35 mg/dL 0.70-1.20 [facility] ([facility]) Alkaline phosphatase [Enzymatic activity/volume] in Serum or Plasma 110 U/L 40-129 [facility] ([facility]) Potassium [Moles/volume] in Serum or Plasma 4.5 mmol/L 3.4-5.1 [facility] ([facility]) Hemolyzed Protein [Mass/volume] in Serum or Plasma 6.6 g/dL 6.4-8.3 [facility] ([facility]) Aspartate aminotransferase [Enzymatic activity/volume] in Serum or Plasma 17 U/L [facility] ([employer] [employer] [facility]) Hemolyzed Sodium [Moles/volume] in Serum or Plasma 136 mmol/L 136-145 [facility] ([facility]) Urea nitrogen [Mass/volume] in Serum or Plasma 23 mg/dL 6-20 [facility] ([facility]) Osmolality of Serum or Plasma by calculation 300 mosm/kg 275.0-300.0 [facility] ([facility]) Bicarbonate [Moles/volume] in Serum 19 mmol/L 22-29 [facility] ([facility]) Creatinine/Urea nitrogen [Mass Ratio] in Serum or Plasma 17 [facility] ([facility]) Glomerular filtration rate/1.73 sq M pre dicted among non-blacks [Volume Rate/Area] in Serum or Plasma by Creatinine-based formula (MDRD) 56 [facility] ([facility]) Alanine aminotransferase [Enzymatic activity/volume] in Seru m or Plasma 20 U/L [facility] ([facility]) Anion gap in Serum or Plasma 17 mmol/L 8-15 [facility] ([facility]) Glomerular filtration rate/1.73 sq M pre dicted among blacks [Volume Rate/Area] in Serum or Plasma by Creatinine-based formula (MDRD) 65 [facility] ([facility]) ID Date Data Source [id number] 04/24/2021 11:34:32 AM EDT [facility] Service Cmnt XXX-Imp : L HANDMicroorgani sm XXX Cult : No growth 5 days Name Value Range Interpretation Code Description Data Renetta rce(s) Supporting Document(s) ID Date Data Source [id number] 04/19/2021 03:18:09 PM EDT [facility] Name Value Range Interpretation Code Description Data Renetta rce(s) Supporting Document(s) Heparin unfractionated [Units/volume] in Platelet poor plasma by Chromogenic method 0.55 U/ml [facility] ID Date Data Source [id number] 04/19/2021 02:14:00 PM EDT [facility] ([facility]) Name Value Range Interpretation Code Description Data Renetta rce(s) Supporting Document(s) pH of Arterial blood 7.33 7.38-7.44 [facility] ([facility]) Oxygen [Partial pressure] in Arterial blood 117 95-100 [facility]) Carbon dioxide [Partial pressure] in Arterial blood 42 mm[Hg] 35-40 [facility] ([facility]) Carbon dioxide, total [Moles/volume] in Arterial blood 23 mmol/L [facility] ([facility]) Oxygen saturation in Arterial blood 99 % 94-100 [facility] ([facility]) Base excess in Arterial blood by calculation Laboratory test result [facility] ([facility]) Oxygen/Inspired gas setting [Volume Fraction] Ventilator 0.60 [facility] ([facility]) ID Date Data Source [id number] 04/24/2021 11:34:32 AM EDT [facility] Cmnt XXX-Imp : R HANDMicroorgani sm XXX Cult : No growth 5 days Name Value Range Interpretation Code Description Data Renetta rce(s) Supporting Document(s) ID Date Data Source [id number] 04/19/2021 02:09:00 PM EDT [facility] ([facility]) Name Value Range Interpretation Code Description Data Renetta rce(s) Supporting Document(s) Heparin unfractionated [Units/volume] in Platelet poor plasma by Chromogenic method 0.60 U/ml [facility] ([facility]) ID Date Data Source [id number] 04/19/2021 02:09:00 PM EDT [facility] ([facility]) Name Value Range Interpretation Code Description Data Renetta rce(s) Supporting Document(s) Prothrombin time (PT) 13.6 s 11.6-14.0 [facility] ([facility]) INR in Platelet poor plasma by Coagulation assay 1.09 [facility] ([facility]) Routine intensity oral anticoagulation I NR is typically 2.0-3.0. Target INR must be clinically individualized. ID Date Data Source [id number] 04/19/2021 02:18:13 PM EDT [facility] Name Value Range Interpretation Code Description Data Renetta rce(s) Supporting Document(s) Glucose [Mass/volume] in Capillary blood by Glucometer 278 mg/dL 70- 140 H [facility] ID Date Data Source [id number] 04/19/2021 12:48:52 PM EDT [facility] Name Value Range Interpretation Code Description Data Renetta rce(s) Supporting Document(s) History and Physical [facility] VVLIDb1vMjPGJyIz25/UBYuhRRRsx1NlBMsmHRs2ZCmsVRMnA1JjJSG8bI2nRNB8FGkZMbCvGgImEMJ6 lbm [file] ZG++U0BwNpNe0WHZ1X+D73fJ+fJiaTo0G2DlYZ [file] ICAgICAgICAgICAgICAgICAgICAgICAgICAgICAgIC AgICAgICAgICAgICAgICAgICAgICAgICAgICAgDQogICAgICAgICAgICAgICAgICAgICAgICAgICAgIC AgICAgICAgICAgICAgICAgICAgICAgICAgICAgICAgICAgICAgICAgICAgICAgICAgICAgICAgICAgIC AgICAgICAgICAgDQogICAgICAgICAgICAgICAgICAg ICAgICAgICAgICAgICAgICAgICAgICAgICAgICAgICAgICAgICAgICAgICAgICAgICAgICAgICAgICAg ICAgICAgICAgICAgICAgICAgICAgDQogICAgICAgICAgICAgICAgICAgICAgICAgICAgICAgICAgICAg ICAgICAgICAgICAgICAgICAgICAgICAgICAgICAgIC AgICAgICAgICAgICAgICAgICAgICAgICAgICAgICAgDQogICAgICAgICAgICAgICAgICAgICAgICAgIC AgICAgICAgICAgICAgICAgICAgICAgICAgICAgICAgICAgICAgICAgICAgICAgICAgICAgICAgICAgIC AgICAgICAgICAgICAgDQogICAgICAgICAgICAgICAg ICAgICAgICAgICAgICAgICAgICAgICAgICAgICAgICAgICAgICAgICAgICAgICAgICAgICAgICAgICAg ICAgICAgICAgICAgICAgICAgICAgICAgDQogICAgICAgICAgICAgICAgICAgICAgICAgICAgICAgICAg ICAgICAgICAgICAgICAgICAgICAgICAgICAgICAgIC AgICAgICAgICAgICAgICAgICAgICAgICAgICAgICAgICAgDQogICAgICAgICAgICAgICAgICAgICAgIC AgICAgICAgICAgICAgICAgICAgICAgICAgICAgICAgICAgICAgICAgICAgICAgICAgICAgICAgICAgIC AgICAgICAgICAgICAgICAgDQogICAgICAgICAgICAg ICAgICAgICAgICAgICAgICAgICAgICAgICAgICAgICAgICAgICAgICAgICAgICAgICAgICAgICAgICAg ICAgICAgICAgICAgICAgICAgICAgICAgICAgDQogICAgICAgICAgICAgICAgICAgICAgICAgICAgICAg ICAgICAgICAgICAgICAgICAgICAgICAgICAgICAgIC McITGrXIVmFTGqACUiWVEfKCZmXCToARJdZIXgIHKcOQSlWGSuWNn1D3pnPWWyRHHsWH8aNCn8Ei4+DQ yUGpYiQJF4jyFsdU3DGZ7cu9UpEHylWXDtc4BxKYa8DQ3BNYFhSCmwFB3NNKzxtq4LSMNnTYAzeGAXl5 aqErSoGLG6FOYeZdmwLH4QRNYmO1srlaTtBZFhZXOV GAycMPUMOAiyPJIKORCtOKMaCoRyKgCeKBNvQCQrLIJVIFS1IGWeWgKcDDXqAAUjED8BMGAfE088oeMk AY8UGr3ONaBqAQ9xnv2RBQMvUSAuZfgRRxa1KAtoKQ4EdUBdqPI2DsJhDXPDOkEjJ9bpw4DkPEUaMWKB NCwcQE0Tf1ZvqFVkKQt+Uu8IAX3ls5QxHHx8XpWmSD 1nps8OMBbPWgAwP1LyeUpaQAjwMTLoyKYLiNrmSLMPlozidyodHZQbDJCcRUZcIOSwTwJpZLYyEhrhPU WRVEeASuTkE5Xfe2OgOyU3REMeImIbBSwwPOJwEzV9TN76vLbiMX5PXLWbEIOmOF23TRRiGAPyUd6YPl 6MJiOiPW5oun8KKAFrRFPtLhyOGdw7HJxrNY3DsPLe K5LhmWGea2aOUuRdO2IYNKBqJZBnUx2CYXCjReOpBDDnKHfeGZ8jPWPbUIQAmCgkbuQ2AI7SKL8emuHj UC8KUvLuMz6lUx3YNkMyY8QpE4PlCSMfJVZLNBzuES8AKKcyOX0zBI0Br0ZSsNRsoV9rwo3RWSWoYVGw Jowyme7RRrpeX7O6jWxwHVBaXQTrZVYDWOoaOB2HCX LiWPO1SIB7QDGiVVNKGmFoV26mQZ9QY7Grz40iKgK8PNPzKtNaMFtdBR65qTwvuuElfXSftJgcAE9UPg 4+FWyjuzTfJthTPxoqICKQVbRzTCCVPpUmGJFdQQIaDHWrAyI9SiZjNx5NQOBtHSQpHBSxQbXeBTJeRA QuUWrrTVYuYNP1MAD0IKZbUITkPZ8ZFrQoOFXfWQx9 OCGfFTYgZWRbar1VDKLrVYZdNPH0CxEoWJEgBRKeVVvbVBCtDPT6TvJxPLKzMIAkGW5QLsLrOOQyAOX5 QZMhFNIqVZXgnc8BPHAeJOIgMSM4PVKnZVUcYASoAUcrPFFoSJH9XIG9GKEgYSLcCE3QPkXiEIQrHKQ5 KTfbXCDiEGShur5ESXXgQPVgBhHqHiTqMXJxKWRyDE unIMFaPDN3Cio0KYGjXLPqZS7TOdMoMSJcRUQ0BKCvOKPtIALuuq9BDWCiCSXfWOD5KzKdRHWvIKQgSL qzSLEaNRK8XrzrSCYzSHCrXI1WXgIgOZHiFyReIIErQGIoGPInsn3USYFaHXPqReD7PHTtMDWgZZVlBP awVSGsMYZ9EhtwMNHbPMLfUE3WIxLzGDKbMxR4TGci ERQhZGCfte1UKCHuGODzGfsnOgFwXTBoANZhAQkaYRErVYO6SLQ1OOAlVEKlXI5UMnKtVUEmXli1PXde FXYeJGQzke6TYIFlBGBwIGB5JeEtXIQwFDSbKBgeURZeZHH3Stp4IWFfCNNiDJ5SIlSwORYkHaEaUydh TERqBRSpnz5KSPXpUDWaCGP4NSLvZFTxAPUkFQhrYZ ZnKMChYxP3MARqQSAzXB3CPoCmNAMmHiJ5RFphNBYgDZYnpe5KZMInMSXcBWy0PRJfLDIwGXDeZYtjZP QfTRHgEAC2DBEvWAFmBP3AXbTvIIMzYiT7HiwrNYPiVZJujh8ZIQCqVPDnVzDqFKQlDGCzKKBxSXihPN RuXDKwRqN7TYQwQKBwQF2NEcMhHCPlDOB0SKFfYONx CEFvgz8OCODgWHY6LQNcUXJdAQPnSPJjFFbgSDChEFW7GpD6SARzBKLiHS8HVnWlUJZrBNN8FoqlOFSe HOTyjx6NKLLzIQY9QDDvWPYmMRXxRGCpCDjoBWRoSWL7CHN2AMMgIEYqCZ6MUsXnFBZeFTD2GVLuOOOt SSWtak6SHDWrZVP9JxmuLVVxPCThROVkPNrxPMJcPQ T5GjhsQBBiGWZvMH6IBcWjQNDkRCd8UEanXZYeBQIclw8UUGNdYPO2RTxjFKDgMDTlSRPnLJcsUAQrNE H6TVG4PLMtOVTtNZ0NDcBhBVbfORJGOej2WUsdL8b9VFI0TR6GK7Blz6KiFHKsOMQPKYghWV9coxFnSU MeNf2GS4rOIet6Izh0XCg7MFYuLgTiGJIgIKQtMJIk BmOoKKTrNVMoTT7fEYQbNNa9SJpgWUCnJYJpKGUaXPJjXlAwGLJaYkR9UYAfHvCwHO0TFf7MQzS9NWM0 jILwAu2FLQerDHcBQyChRI5FCRb= ID Date Data Source [id number] 04/19/2021 12:32:29 PM EDT [facility] Name Value Range Interpretation Code Description Data Renetta rce(s) Supporting Document(s) Glucose [Mass/volume] in Capillary blood by Glucometer 329 mg/dL 70- 140 H [facility] ID Date Data Source [id number] 04/19/2021 11:53:00 AM EDT [facility] Name Value Range Interpretation Code Description Data Renetta rce(s) Supporting Document(s) SARS-CoV-2 RNA 2019 nCoV Real-Time RT-PCR: NOT DETECTED [facility] This lab was ordered by [facility] and reported by Health system [facility]. 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 [facility] Patient has symptoms related to [facility] When did you start to experience these symptoms [Date and time] [Phen X] [facility] Patient was hospitalized because of this condition [facility] patient was admitted to ICU for [facility] Patient resides in a congregate care setting [facility] status [facility] ID Date Data Source [id number] 04/19/2021 10:54:23 AM EDT [facility] Value Range Interpretation Code Description Data Renetta rce(s) Supporting Document(s) [facility] PZTSMg2gNqHEXxDhj9XkWbYdNMHxAV1mlga4M3W7aSPnK0HfaVAjg0wlY6BaT7MyDIZqWQOLAU9HyKSh jb2 [file] tzUWQvCWJmMH5q1DsxvlIxkpRrtWZ3GoQalf/VNsa8OB6XnZd/[place]/9hhgZRUMabyuNW2juz2yph7VIG ZTo8zBdAyUu9GPCtdg7eCNWGl+btgn8Q6yY8igWDhW Ij0kCozij2ypYD6hgfbew182wVu8eHtW2xU8Y/a98/d8S7qRoTVZ/oEwjusZwEK2gbv5aiR0vtLbXkwm CGg9vdn75Ka2hoTZmdmcnU8EQ70UFdL/qJM/4TYPHPvKhlUGXc1jzU0fekch+cR8BmFkpZR7RPsBbthi +ml9J2werMO4xokCmfvkyxcM6XW6gqnE3O8FMRWT8R noG+mP8MbXiKlcX8/oKGoDh4iSewizGPaf1wSbCZZTSsv0hsYJflWX3cBPYI0N7G2KcnlMYKX5YPPm16 iGB+5aqpIC4XKEzBXIXx3NMIGOyxc5smpdllKmvtHEq/cXJ+4uH9hTp1hJZsNzinZ76YB6rdqkc3D2Kx orU9fAhfVo28vi9r5NmUaizCt/MTJ+ajIn3RjVgdMU 7lFRWriZCgB0nyPZVktIQhP0liUHdBeDc8ffN1lJhlMLylDWlAPYYoHkoVTZol6Gbrzko+90WkEWlEOp CWVIMmZ4f2SHEgxZ8Uq/fCZj/H5Gbadst4X2QrebEiSI/2IQJPdXJ+4yC9lCofdGBVivCe/MTJ+YmT8x Vy8rkBch+xfW42ON6ntc2s0PzOro3ExXSA3vti/Nbk 4GCeql+4F/xCP/AIQ3Nu8oG0SIIdaER8CSIrsHM60qv9TX/bHgrxw177NP4OKKWo48gc7/xE5/xE5/xE 5/xE5/xE5/xE5/xE5/rPX685rO4oWbNBlBZmlzzcGsoCGRIyhCshHbWWNNVViSC+m5mSA/qJTj/R6Sc6 /USnn+j0E51+otNPdPqJTj/R6Sc6/USnn+j0E51+ot NPdPqJTj/R6Sc6/USnn+j0E51+otNPdPqJTj/R6Sc6/USnn+j0E51+otNPdOpEp5/i8ABjriAJX7H3gF 4/8ptlRi7Ap7/b0PQnmqHMQ4IrH9SMbUbKKVZoGHJPpGXTX/4ZbDdywD+K7UYO+Qyx9tbF/1U5UcvP4J HFr8zYWwnj/ETn/ETn/ETn/ETn/CKo2CUyK27tS41p Z43jB39eW74vI25nT27yX93oJ56iQ51eU09gB6v7jhEsy08ndo8SoeN6YPI8SmH1f/Brxcu4fYLeXISM V5uZeZDSSMkjMEyM50qan3cfFSbrzckdr64Ba6Bq+562o9a+p/clmg4mB1m7zWaScKqaUGQ/0eknOucn Oucn+j0/MQMiTsSJyD/sUtq5ZZb2SD6/0OJTS4LoJR 2AUbyIg9RtTOwFdJR2NoiY7hPqN37FXdN+8cRXkuBjKQ1QNIPJ4jFkIb4AGXRVsbuffcElreoSdqauD6 cL2EalW66J8TGZ01CPv80AgSX/uIqPJ2Vy2fkC9/xE5/xE5/xEv+ttWtAoVwSb1C6uzKJVvowZ3/xE5/ zExfmJi/MTF+ytAe6BXMbo6gFXMYQDIDEZWCQDGNpY A9aQNjLFHLJ1CZzE3rxx3neAiZGRWyo8fIPL4qJCSifDMQPFQX4+3lddaDqdJh2QVMR1hrBUX7647RsA y7g8gxfI2w9g2ak14+rOtf24oeOw+54m2Uo/jTk4ocnOs2Qauj05HdR4hGxCXnrrursFOyxPQmC9kn31 C6q8ZEiPxtx+OJAH+f76P57lZXn+/6x9/3nWti63z+ 2/Wvn+br/p103pLo8xr/+EQXMr2PjX8n29tvy/x/f7wz7esg1iza+6ngs83m+1f3L3e+J9A1JJnyCc3J EAhnM9S4nu2zG+82OdgU2P45NdB+3tni0tnW3r/+s2ikB4D91sal5itb4D/+Tp0vXQqK+e37mk/dt+5d 95/1SsMs3z8e0jCV32pEfREtJcUT/55vuVMn+1st3n l9S3pwx1/g9RR2nT1n2el3Y/+I6anR5l04o/0T60PZ/m23rEayjkb6FouDin6dI52IZ4v/eE19aEi+iI gip5jzSvSyt7kOvyB/LNP63+zddOcPhV/20kYYgc7910yKadN8mN0uefU8hU4f/5mq7dV/H4rev8xk80 ez9vka++s0W+A2fl17rCs/rkV+x/+lS20cNpB/U/ki 14/mh653mmIkmQUZu5W7SN+Px4Q18Z8z5p90xtw8S/1/Z+7yPb7/1ocf+sY0sqmbB1M7c/kzto6eLxUe +30d7x+bh/PY4/4/69t9Fu+SrhTGZYu5o6xTqiY2yH5oooC2fU9q/e8fcFpzWjK5w+3tUk1F209yn02E vbhnZD+7A1YKpi6fU+2T6GqzWa+ap/euSrPuyRr/rq rkfAv7cni3fW4A8fJx9juX+y52jkFWdfw/titOM31bPMbvk57198+qlVR7fl/+ccu3ymiusnT+3ffI/6 74wdw8sI/d64xEDPbyt5/CSIl970V318CzvdvO9yBD+U90bhpTPl/aED9lX8t3QGWYJsFe01B9t1Y+vM FEo41BeQO0xWhH/1oaeUfH2u5ho20t/t58+ll6Xk54 oVQ1sNB0lk+a4q6gruGNKxxqVsghvTp7wh2vBdr306Vj/vxm54Gfho+3fAjaT2ZYtIr3k76by5pdrKxF B1N0wi5hH3t6260psXH2oq/+T76Qdq/+bbdH2/Dnet1QY+iibTbzw1Pk/A23YhYjvb0So2G0dG1zda1/ Uec+O8B9/shZz60eK/41ca440XVERNQNH8sVXgs4gV r7s9zntD4yPyA2aEC+exdDyvUawcz+sYC8fz+re40vbxgSo6+0OsGs8+Z6oVF88I32RwhJqg9ZJ0HmbF u19kQ6zgV6y31lwukOa723jTHD34RbmOm/ij0ruiFAuFylA+kZZpsv986GqjZ/oV64CaA5/dCWlL41qA v4FbIW491hof3TFJ7ir1veJo41Enx0JcvS+5w2sP15 CwIH5bNyjSl+9H1hk4yreT6lA2yULMv9H9gz5a8mJksP4pZ4aikK6zQ0o/b/sDrwN5NfC5pE0LoyR4Ij X5sC3XcrB8ZuG4eH7AfvB5PcH1cX0FvpE1GeN6pV9aV9X+hnwN+Qa Reviewer/6gZvnwdsKK6zQgj2d23Cb3U9yc 6p5aWnxB8kU3pstG4tS1o/b/t834+32KCkU9L2F3+J 2tklsBau55S8evx+T6o77hlLGP+W4xluhXbu62N6xzc+P8m42grTGE/T8VLyW6z2kXpoI94NrP61BfM7 8Pa3xATC+ureRru/02z6AJ5Gpcb0fM8xp5W5s/2g/yHDcy40so3FF/p75gyksVYn8Q3EktEqm6ABdA29 Y9oH4TGcV+2Hc9tzwiV3wJ7dBcibxY4J8/PG9d3v+3 0p7A1265z2ntkc7eg+H8uzP+/7z+ljeHbVuijWbdFn7P900k6Yf6aj66GA+3fj/t37HU/2xvc/aD9v+7 kubL/SHjj7STF8zOo5I6q7FG1JzweB6pvnaBlQew2Lv7Vy8bIwp8jTcpoH6kpzdYbcyRPps38tzFb7z4 c31l2/19cbgV6nV9Wefq1phoTR0dQtaVa6fkW5KHWl tG+c9+K5b3356e/UtfN4jPkp9n75N5cdw2yucoQDbw8fLzEmIcYg0oaxH42pH/3z2lu0bWmRMsZ5ecH0 fB7SV+35i+LPMcO/2yjlTU4FGuROfayztdeOj78Xjug2MEXr/gBsuM5tN95yMlPcisACpj0JRjwgaW+x dFe0nPzQ6cl9wPZm7baUb2JwsxZp6s5k/I2l7xz+Rm 2hbBsp1by8O0bM+/hXW2c4dBrUJ08mqAv0omF85RiEUyuEb3pTcNG8YxHZWU6+RWlrWn2ntk9v5uXosv 9VhrZQi31tQ/3fq4mkstVPoa+r/uabq/DXC5hSslEZ1iiDdltgPi//m78apu85mSPCMt/d2+IU5YkWn4 IqcvlXOq/8K31n+VfqP/InWg8P2Bj5u7y1U50m+Vee z0Ft9BCO+Lk46nHr3O5eN2vga5f24VV0bSHiPnhX09+1rjHQU9cma/tR9ZN8tjaG3z82zgqQyiK4tZ6t hoLqE32u7zb9FhH7/m290V6SwiA+1O2flAN4hO+gtJ11Cuaz1ASRt2p7tFOYdV1XaJZ5zY6v/fXrhr9+ 3XBH+0J1XyiC+0a7/Lql7W+43eScc5Fs0/X9gh2vdp b8qwH/hemh6dKVy/gNGlihD51mO/0B48t9F86j8h0XYVW+6a32c14kbE/SPSX/SuOM/Cvds/Fz9NqzT+ m+ln+l+32/7/tD/pXGB/lXGt/wI9hVfW19d7W71rn9G9X+ze7El6bC03liwapFZVcN3/JGkPV9HjImAm 3z51b0A7M+le5H+Bsn2nSswHgsm9ijB/4D2stWk9A1 Aj1W53w8L/Vn+Vfqq/LbhtauppJ4NX1KBIIRveuBA9/ij82Bx1iW/4nFy8+3j62KkbA+9S6DrsJnf47n wo28GVAz3rhNLCa5hlHDcXfTa9ro0w1/Jv/L3K5aNp2+FS1z0i8d686JknC4S3QtOT5QK5f/PmfUt0rw e986pvK/0qrk/fQ3k3+4pgxm8fcYa3t4/fR/k381cv u5jwz+lcG/ZrtYmWQ643+Vy3SVGrAGSFxTPzn43m52FYw7nnjtoTQRL8cI6gn8Tn1mo35365eL/8rSv4 rt/t6YyS2bt0hsiC2y94mejW0yK7Gr1oekV4ld5O47yexX2g50lFte68BcYF2U+E8jB5WhTO6B+Q7kO5 DvQL4D+Y4mH5IdDA8W+Z4oW9WhOJ7V+H6zR6YyLM1F dzF5OgeCo3Z4EN6ey60/w+a7S5iR2Jg4bnfMini0k26saqX4n69z/gC88He92/y3uovpP8gc6xdrB8iC L/sqv62c5D8Q/rPViiR5Son/lxQoKanbj56q9E3X/cPRxwT8Wwq/vdBdYnepz45a5V3N/pVJX+m6O/qz oz87+rOjP/biV91nKIc+3ucdeur04X6Uhmhba/bz6D pb7++vfi4KzN2HRvh/rp7ja4E2f26fqiG29++htgztE+7Ya6z9o7xv79szTD6xP56+VeaykRfyXa9+tv 3qZ5N/GL7UrUjtL/mtvr53pt4bIH/5V7mY+UFdHN8BjhZql4k+VW6//oEh670u+FcG/2c6TssF++tfGf mjo17d44N42+pIlb4ky2+v59Ysr82lS53hcZu5B1qB [file] K6y6juxDcYYvc77UGzNmmKkody66QNk25yfrUa81ir288aIxPsd0aDEl+hernan/QXrSjG8wB8aIe/dqD08l 1cQ+dP2bv+ePf9QyN22WH185LwzkUyT7nmvRhrZ2oNn/lo5GfbH5sJUFhOnEDORYrhJ6uLyxDvdNrKfe zOQw5yjRuCbZnK8/XPrbiL/ScwZ/nPp2hgtgwiteq+ xPxV/Y0ftURaazruk/uvTM9/sVDxMHMcxxNcVf+E4DF5qI4K4dqcyKCKg9dOi4w5cKdVSRvO9dI/yV+o Pir/y39/tVLFZT/IS1inSk1UeBk/Q6YosIjNNa9BOjL80spXi8SvYUNfgC/th4azeWsQbs7uvG1rglz3 3rK/Be0AtTd30+MS2cfN7R0z8608gk4U+a+Cs9p/gr qUr4pL7A8Dwcw481ZtJs2Cuep6X0aD+SnxV/5XJ/7hlpwyAeMGV4JBhzH8nNT+1y2/xYc/yV6hV/FWXx W5ok3e8zLlETatIAGaqIB4+ld+V2D0AUysnNC4g7xZ4osp9fHnVp/6fub4V1kV2jw21YJkQkHqKuSrHa NcRfNcRfNfFXer+Ed9J5qf2tfU2eqG9ufW8jqu9Cuw JVVH/tacyqslsyqubqk2s6s6F1gX+p/sRfNcRfNcRfNcRfNcRfNcRfNcRfNcRfNcRfNcRfNcRfNcRfNc HpXfCUOnhPiSGjV1cF/FW8U/BXDfxVA3/JqD940FxD/UPez59PkhV/RdGsr7FMxS+pD4i/Nn3De6E+IP 0WkUX5qr16+Cu9d/JGVvdUI1PMz/288H0rc+P6HfXR Cw4HsZnDCw05C8g30Ll0B10tbe+6+Jyu3cWUMVcri2bNZL+JPx2lgdq7B+4in9FJpPGMFobUwb3J8E5+ tl+health plan advisor/bLP0gtdNWC6Icl/qkd6dHwVhZTW0u1X9v5biEDz2koC51R5clNUeuU0DFDaqgkId7l2yBn2Emk [file] shahana/HNx4E1tk4Gi7/81x//+gye1TxhL385+bG7V90k1cguV/3qq0/b07Xx8Yz/d3z9y/dU7yVqvQ82TK 8/CvfOg0UyHjCNXDutk+pbz/zdj3/+2z9+/XFFx96q /fWF+1C+m/tHf+KLitqDvfY+P736Bn/z7ccf//y3H//6//zwb3/n8tupf+/sb9eg3fwJ9+A/ffvdxx/+ 1+vh//iXP//0+qZr1bhG5yAm3N++/8U/dv41ah09WfJ03z+0Lw6wE11qiIPN8KKMkTa0bQrJQ3fWYtah U23sNz//9ufff/zw//747/9x/DwvLueff/Xptz+/M+ K6XdHqi/q///ov//CTX+8X8dUP//b2gtcb+tkP/+v3P/z7H3/483/8+8cN3/7lL3/65LpT9/7kJ/uZv/ tU0l97mu8aymX8QgU+3z/4/sff//c///M4l2k54nBeo/06X01WiM682s//9uo6f/jkn77/7OPvzLrSUo tn/+arrz7/+jvlDrAX61n2+//fT+2vTT4Fqu9/88N/ +/EjffzlXz/4It3B07tW/zr05GoD5ZNvl2LFc+e/+w9EBGed/Pp88+3ry/ZJUBQzTrZ8+tln3/z269dv o0yxo4Sa+r7R/cuvU7HtMlOnDRL7ccNipUtqrpDyPzdHOJuwDMXwJwj8XG4JnDWuQZPbI2X7MBMucn6g SNXdNZLydUViMlObNWEBYP8WnYApSW8WIKu4YJPiTP JzUcDpPXZpmfZ8LGIlEGYkSIGwF2YzvyDgxDKoJKBhNk6+DQ1zs3VvHxQxDMQqJzp1XG3AdSOkZO3MlH CjxG8ylbPcK088syOcKTSjGdqqz1NxEGnsORLVAU0RYJQ9IFG1DNHbEv2+KR5jf7XlNhZeISGhFqi2LD 7PlQJqf2SmGW7MO9XmXOBpLDDRNIR4e2CmGINsbuha xjtbD7TxUNB7fE5gBEN5UFQaKZhuWZHlKDKrYNXuZSPeNTrnYXDtHQHcILHfXIArTTf2mZFpDY7KP4Df UTThEFYISOYnjrNiHj4nGKOZHQUFG43IZIENKDLQWOVWOLGqYWHfVTiiCI5XqYCbNLU8AMpZGHJSHJqN WGcpMlEgd0T1RWFyU8UmLFEgphSzEGOWMJysUsyhWM 5lsZblwrskG0XzaNAiDQAVCKTlIFWsAQZiPNXbF1Nez5P1J2PhPOrYDBOQQCjVQDwlSrX2c98allIEYD JpZXMpID4+LI2oa2McNs5AINOyYM3pnkk2VP1AfIImVS4IQZmbroTwM6orizUaNqTlSVOMXN6zR2OrzY 50IDE+SjEgFF8kzno9vsYwKvPjOPFsJVVtCHMbYBsj IAGrUBSiMNGzEYH2WFS5BEJiDjCvQXJqNzRmMldtZOEdUJSjifEKKXWkXGF2JAzaMZJpTSUeVYXkWGrq NJRjDVbjLilhMHFaTUNuHP8xRgHtNBFcZWBuDJXyYkG5KrNeXbFDDPAvYOPtIZQdFuWzUTExJHYhGTld WRKzZMOnNGl3NYZxBYDqLG2yBtRzDLIiIVRjAPWaII BqNPSnduZHKDWgXUZsNTY7CTEiBNUaVYGzFOypMIBeXKOcAYZ8ULJoZITiQX4iKaReCQIzBMY4IjAfMG VhAUScovUHVZBfFLQaPBM2BMWzCEHxDEKyQXoeSCKgUPVhKxD9XCBiDSPcXE0nEpMoHEGmHXE5TCCpYM UoUVWiwlMZQDGhWJGgKLy8QiIwVXDmOPXlBIgqVYIu NKCtVOulUISyJGXvYH1iArNoRQGqQXOzHEIsHVNqFLCwuiKBSODhETBeIYN9IbRlWSYlWYRxJXpqSGVk XNIoCCK1NTZjUMQjLF8xFbVcINKcLyT6KHSzDLQhGJNhjgJPIXYpYHWnBFTfREPvYSIrLEQeROifISHx QSWsZvK4TUCzVWRpVS5pFtYoVOYzYWB3HPAaYSFiNO MrpwJOPATgCVVxKKJoCLI1ORHxCUScPAj3baGdrQFfJxv4Mo8SlRazQYP5Co7RphTxWBIcZWHJDy7Ei7 90IDUgMCBSCgo+LsjgzBFkrAbwRIQCPhWdVDDWQEPEE5U= ID Date Data Source [id number] 04/26/2021 10:12:45 AM EDT [facility] C[facility]nt XXX-Imp : NoneMicroorganism XXX Cult : No Legionella pneumophila isolated Name Value Range Interpretation Code Description Data Renetta rce(s) Supporting Document(s) ID Date Data Source [id number] 04/21/2021 11:39:01 AM EDT [facility] XXX-Imp : NoneGram Stn XXX : 1+WBC'S Seen.2+Mixed floraMicroorganism XXX Cult : Indigenous microorganisms. Name Value Range Interpretation Code Description Data Renetta rce(s) Supporting Document(s) ID Date Data Source [id number] 04/19/2021 12:29:40 PM EDT [facility] Name Value Range Interpretation Code Description Data Renetta rce(s) Supporting Document(s) Hemoglobin A1c/Hemoglobin.total in Blood by HPLC 8.3 % 4.0-6.0 H [facility] (NOTE)<5.7% Average risk of diabetes (ADA)5.7-6.4% Increased risk of diabetes(ADA)>/= 6.5% Diagnostic for diabetes(ADA) Glucose mean value [Mass/volume] in Blood Estimated fr om glycated hemoglobin 192 mg/dL <126 H [facility] ID Date Data Source [id number] 04/19/2021 10:58:15 AM EDT [facility] Name Value Range Interpretation Code Description Data Renetta rce(s) Supporting Document(s) Leukocytes [#/volume] in Blood by Automated count 13.6 10*3/uL 4-10 H [facility] Erythrocytes [#/volume] in Blood by Automated count 5.00 10*6/uL 4.6- 6.1 [facility] Hemoglobin [Mass/volume] in Blood 15.6 g/dL 13.5-18 [facility] Hematocrit [Volume Fraction] of Blood by Automated count 44.6 % 4 1-53 [facility] Erythrocyte mean corpuscular volume [Entitic volume] by Auto mated count 89.2 fL 80-96 [facility] Erythrocyte mean corpuscular hemoglobin [Entitic mass] by Automated count 31.2 pg 27-33 [facility] Erythrocyte mean corpuscular hemoglobin concentration [Mass/volume] by Automated count 35.0 g/[facility] distribution width [Ratio] by Automated count 13.9 % 11.5-14.5 [facility] Platelets [#/volume] in Blood by Automated count 195 10*3/uL 150-400 [facility] Differential cell count method - Blood [facility] Neutrophils/100 leukocytes in Blood by Automated count 92 % [facility] Lymphocytes/100 leukocytes in Blood by Automated count 6 % [facility] Monocytes/100 leukocytes in Blood by Automated count 2 % [facility] Eosinophils/100 leukocytes in Blood by Automated count 0 % [facility] Basophils/100 leukocytes in Blood by Automated count 0 % [facility] Neutrophils [#/volume] in Blood by Automated count 12.46 10*3/uL 1.8- 7.0 H [facility] Lymphocytes [#/volume] in Blood by Automated count 0.77 10*3/uL 1.2-4 .0 L [facility] Monocytes [#/volume] in Blood by Automated count 0.26 10*3/uL 0-0.8 [facility] Eosinophils [#/volume] in Blood by Automated count 0.01 10*3/uL 0-0.5 [facility] Basophils [#/volume] in Blood by Automated count 0.05 10*3/uL 0-0.2 [facility] Nucleated erythrocytes/100 leukocytes [Ratio] in Blood by Automated count 0 /100{WBCs} 0-0 [facility] ID Date Data Source [id number] 04/19/2021 10:14:10 AM [facility] Name Value Range Interpretation Code Description Data Renetta rce(s) Supporting Document(s) pH of Arterial blood 7.33 7.38-7.44 L [facility] Carbon dioxide [Partial pressure] in Arterial blood 42 mm[Hg] 35-40 H [facility] Oxygen [Partial pressure] in Arterial blood 117 mmHg 95-100 H [facility] Oxygen saturation in Arterial blood 99 % 94-100 [facility] Base excess in Arterial blood by calculation [facility] Carbon dioxide, total [Moles/volume] in Arterial blood 23 mmol/L [facility] Oxygen/Inspired gas setting [Volume Fraction] Ventilator 0.60 [facility] ID Date Data Source [id number] 04/19/2021 09:50:06 AM [facility] XR CHEST FRONTAL ONLY [id number] RESULTI nterpreted by:Wilma Marr MDINDICATION: Endotracheal tube placement and endotracheal tube placement.TECHNIQUE: XR CHEST FRONTAL ONLY [id number], 04/19/2021 8:50 AM.COMPARISON: None available.FINDINGS: Endotracheal tube [...] rce(s) Supporting Document(s) ID Date Data Source [id number] 04/19/2021 09:45:20 AM EDT [facility] Name Value Range Interpretation Code Description Data Renetta rce(s) Supporting Document(s) Consultation [facility] WXBKPu2dMxDSYiWe62/RILvxGNLcf6ScHCwkVMe1NJamQUEgA8DyALD3jY6kMZT7YReOFfNqAlHnOFN7 lbm [file] ICAgICAgICAgICAgICAgICAgICAgICAgICAgICAgIC AgICAgICAgICAgICAgICAgICAgICAgICAgICAgICAgICAgICAgICAgICAgICAgICAgDQogICAgICAgIC AgICAgICAgICAgICAgICAgICAgICAgICAgICAgICAgICAgICAgICAgICAgICAgICAgICAgICAgICAgIC AgICAgICAgICAgICAgICAgICAgICAgICAgICAgICAg DQogICAgICAgICAgICAgICAgICAgICAgICAgICAgICAgICAgICAgICAgICAgICAgICAgICAgICAgICAg ICAgICAgICAgICAgICAgICAgICAgICAgICAgICAgICAgICAgICAgICAgDQogICAgICAgICAgICAgICAg ICAgICAgICAgICAgICAgICAgICAgICAgICAgICAgIC AgICAgICAgICAgICAgICAgICAgICAgICAgICAgICAgICAgICAgICAgICAgICAgICAgICAgDQogICAgIC AgICAgICAgICAgICAgICAgICAgICAgICAgICAgICAgICAgICAgICAgICAgICAgICAgICAgICAgICAgIC AgICAgICAgICAgICAgICAgICAgICAgICAgICAgICAg ICAgDQogICAgICAgICAgICAgICAgICAgICAgICAgICAgICAgICAgICAgICAgICAgICAgICAgICAgICAg ICAgICAgICAgICAgICAgICAgICAgICAgICAgICAgICAgICAgICAgICAgICAgDQogICAgICAgICAgICAg ICAgICAgICAgICAgICAgICAgICAgICAgICAgICAgIC AgICAgICAgICAgICAgICAgICAgICAgICAgICAgICAgICAgICAgICAgICAgICAgICAgICAgICAgDQogIC AgICAgICAgICAgICAgICAgICAgICAgICAgICAgICAgICAgICAgICAgICAgICAgICAgICAgICAgICAgIC AgICAgICAgICAgICAgICAgICAgICAgICAgICAgICAg ICAgICAgDQogICAgICAgICAgICAgICAgICAgICAgICAgICAgICAgICAgICAgICAgICAgICAgICAgICAg ICAgICAgICAgICAgICAgICAgICAgICAgICAgICAgICAgICAgICAgICAgICAgICAgDQogICAgICAgICAg ICAgICAgICAgICAgICAgICAgICAgICAgICAgICAgIC AgICAgICAgICAgICAgICAgICAgICAgICAgICAgICAgICAgICAgICAgICAgICAgICAgICAgICAgICAgDQ g0W0jmHFIjVZGdXN8fYYb3Hb9+XVwAGcShYRW4daRujB3FKG6iw8LiMAxfGRLim3YlHXt5UR2BVVPfBS jlUX9MOGtzxs5AORHeQEEyyHEDe5epPnRvXMG3AKKh UhtyYY0PJLSdF5psfqYnQKReKYNMIG0KVsRaL0AacL55BUHRCm8+BFadplTsKovNNeY9SNVcj5XyRNh7 EK7BJVRpZaimo4QdFPrjFNVYLUbmAE3EMAO8QJE6NWTyCq9RLYRnP148feArXE4NUy8SUzAaAH7wuw2V HZfkWVQsErlHIjb4JQdzBY9KbAPwIKiCy66unGo4kr GdwOESXMO7BAZpu3XpDBVGw6PaJXntNU2DPfMrnYXeVI7nCU9lTEHmKRD8WjWrKDKGZP0VKLCkIHMooY DeMGDaAUCGYL6WTZvgHJJ1TIJpljXwoBYvALsgFV2FCMBpjjAkCKtxZPAQHOk+Xb1TLC2do8OrAUnzDH BkXC0eqm3VETtTPnPeV6L4sSXwJ8G4LAzqEf5IKOXo PXMiUFKdDDBNDRvmXF7EEM5jccP9CQ3McWYjSQKlYAYwoIRzBFm8W09gsMIgUXhwAL8RNCT+Cristina+Pg0K TOXwOZUdXWJwHlCpNMHDRkAoH4ZmC9IXd4JwU3CgHC35nWpbipJqSFiwEX7ODX6qHLKpADMWTS5ZxQAv bZ0nsjVyTeDlEIIDLxSpI78neYJdNSLgIWK9MXSfTl 0BXLZdP1TlfyUseXhrztIrPIQlBXKVEJ7VBXsdmiZtzFTswKyzKR38pYlxAD0RGi0RVrAtQO3zip6YjS IxUy0FRJKgMJ2QCKRtJMIjAXFbURC3ZYYtKzJtEZfaMCVaITOkUBH1VOHoWERnTT3QFnAhPEQqBIOzXE DhNXWnABFrss8FDQDvHROpMNOjDbQzZMPrXJQlWQdy UROeOWWeRRH6EFNcJNPvRS0AGiLjEOGiBHIgNUZaXOVfAWObej5HYNLnTGVhBtD2PRAeCRNfXKCiEEjj VFUcGQMdShB4YCZwMLJnIT3TOiCyWWAhKPV4VYLqDGSyIYXlua6LLVHtKBNbHhR2WeRwEEKqVNVwYVae TSMiGPF7RzYpSMYtBGNdIV7TRyAqTUQjWLR8JJFuXQ CqRAAodz8AWUSeGUAdFWAxEOKfAPHtSXEoHGulDLZbXOI3TXgzACFdWMNdYC9HSfNjVBDeGDLmGAteLP XsFJVjcl7XYLNkPTAtHoD7ZNDvBBSsRGLbQPyuTDZcVNI2GishQOTdGYFqVK0EFiWcTGUfQHmkOnEbMB XuSRTiax6ADYQaXWBnWWVdYICcFKPhMHPaPTfuDKNj EXM1FIVgUQUhRGFzJC4QBpHaDIkiNSTSWkt9HBbkC6f8OBSlUY9OZ8Wjt7ZuPNdvDVEFBYvxXW9fckHw JIYnPc0JT4hZQlxhGoGvVvQdThn7XsB0ZBC7VNvxNIO1FATuFeYiQnNnTG8iCCMyUjPaEKZuJXwbDVyw VNdgApK8CmisPsL1VSQ1FbI3WeXfHG3OWv1TCzJ7QTQ2zNYbNh2LVEJ7KQ9KZBWQJ8GPNw== ID Date Data Source [id number] [facility] Range Interpretation Code Description Data Renetta rce(s) Supporting Document(s) Hepatitis C virus Ab [Presence] in Serum or Plasma by Immuno assay Non Reactive [facility] No serological evidence of active infect ion. If recent exposure is suspected, test for HCV RNA. ID Date Data Source [id number] 04/19/2021 10:17:40 AM [facility] Name Value Range Interpretation Code Description Data Renetta rce(s) Supporting Document(s) Color of Urine [facility] Clarity of Urine [facility] Specific gravity of Urine by Refractometry automated 1.030 1.003 -1.030 [facility] pH of Urine by Automated test strip 5.0 5.0-8.0 [facility] Protein [Mass/volume] in Urine by Automated test strip 30 mg/dL Neg [facility] Glucose [Mass/volume] in Urine by Automated test strip Neg [facility] Ketones [Mass/volume] in Urine by Automated test strip Neg [facility] Bilirubin.total [Presence] in Urine by Automated test strip Negative [facility] Hemoglobin [Presence] in Urine by Automated test strip Neg [facility] Leukocyte esterase [Presence] in Urine by Automated test strip Negative [facility] Nitrite [Presence] in Urine by Automated test strip [facility] Leukocytes [#/area] in Urine sediment by Automated count 2 /HPF 0 -5 [facility] Erythrocytes [#/area] in Urine sediment by Automated count 24 /HPF 0-3 H [facility] Service comment [facility] Mucus [#/area] in Urine sediment by Microscopy low power field None [facility] ID Date Data Source [id number] 04/19/2021 12:37:50 PM [facility] Name Value Range Interpretation Code Description Data Renetta rce(s) Supporting Document(s) Amphetamine [Presence] in Urine by Screen method Negative [facility] Benzodiazepines [Presence] in Urine by Screen method Negat [facility] Cannabinoids [Presence] in Urine by Screen method Negative [facility] Benzoylecgonine [Presence] in Urine by Screen method Negat [facility] Methadone [Presence] in Urine by Screen method Negative [facility] Opiates [Presence] in Urine by Screen method Negative A [facility] (NOTE)Positive results are presumptive a nd unconfirmed;confirmatorytesting can be ordered at the [facility] at [phone] [facility] at [phone] within 5 days of collection. Oxycodone [Presence] in Urine by Screen method Negative [facility] Fentanyl+Norfentanyl [Presence] in Urine by Screen method Negative [facility] Service comment [facility] Results below the indicated cutoff (ng/m L), are reported as"Negative." Note: for medical purposes only; not valid for legalor employment testing. ID Date Data Source [id number] 04/19/2021 10:09:15 AM [facility] Value Range Interpretation Code Description Data Renetta rce(s) Supporting Document(s) Heparin unfractionated [Units/volume] in Platelet poor plasma by Chromogenic method 0.60 U/ml [facility] ID Date Data Source [id number] 04/19/2021 10:09:15 AM [facility] Value Range Interpretation Code Description Data Renetta rce(s) Supporting Document(s) Prothrombin time (PT) 13.6 s 11.6-14.0 [facility] INR in Platelet poor plasma by Coagulation assay 1.09 [facility] Routine intensity oral anticoagulation I NR is typically 2.0-3.0. Target INR must be clinically individualized. ID Date Data Source [id number] 04/19/2021 10:29:10 AM [facility] Value Range Interpretation Code Description Data Renetta rce(s) Supporting Document(s) Natriuretic peptide.B prohormone N-Terminal [Mass/volu me] in Serum or Plasma 213 pg/mL <125 H [facility] ID Date Data Source [id number] 04/19/2021 10:29:10 AM [facility] Value Range Interpretation Code Description Data Renetta rce(s) Supporting Document(s) C reactive protein [Mass/volume] in Serum or Plasma <8.0 [facility] ID Date Data Source [id number] 04/19/2021 10:29:10 AM [facility] Value Range Interpretation Code Description Data Renetta rce(s) Supporting Document(s) Thyroxine (T4) free [Mass/volume] in Serum or Plasma 1.09 ng/dL 0.93- 1.70 [facility] ID Date Data Source [id number] 04/19/2021 10:29:10 AM [facility] Name Value Range Interpretation Code Description Data Renetta rce(s) Supporting Document(s) Cardiactroponin T pnl SerPlHS 30 ng/L <22 H [facility] ID Date Data Source [id number] 04/19/2021 10:29:10 AM [facility] Name Value Range Interpretation Code Description Data Renetta rce(s) Supporting Document(s) Cholesterol [Mass/volume] in Serum or Plasma 177 mg/dL <200 [facility] Triglyceride [Mass/volume] in Serum or Plasma 153 mg/dL <150 H [facility] Cholesterol in HDL [Mass/volume] in Serum or Plasma 43 mg/dL >40 [facility] Cholesterol in LDL [Mass/volume] in Serum or Plasma by calcu lation 104 mg/dL <100 H [facility] Cholesterol in VLDL [Mass/volume] in Serum or Plasma by calc ulation 31 mg/dl 16-42 [facility] Cholesterol non HDL [Mass/volume] in Serum or Plasma 134 mg/dL <130 H [facility] ID Date Data Source [id number] 04/19/2021 10:29:10 AM [facility] Value Range Interpretation Code Description Data Renetta rce(s) Supporting Document(s) Albumin [Mass/volume] in Serum or Plasma by Bromocresol green (BCG) dye binding method 4.3 g/dL 3.5[facility] Bilirubin.total [Mass/volume] in Serum or Plasma 0.7 mg/dL <1.2 [facility] Calcium [Mass/volume] in Serum or Plasma 8.3 mg/dL 8.6-10.0 L [facility] Chloride [Moles/volume] in Serum or Plasma 100 mmol/L 98-107 [facility] Creatinine [Mass/volume] in Serum or Plasma 1.35 mg/dL 0.70-1.20 H [facility] Glucose [Mass/volume] in Serum or Plasma 365 mg/dL 70-140 H [facility] Alkaline phosphatase [Enzymatic activity/volume] in Serum or Plasma 110 U/L 40-129 [facility] Potassium [Moles/volume] in Serum or Plasma 4.5 mmol/L 3.4-5.1 [facility] Hemolyzed Protein [Mass/volume] in Serum or Plasma 6.6 g/dL 6.4-8.3 [facility] Sodium [Moles/volume] in Serum or Plasma 136 mmol/L 136-145 [facility] Aspartate aminotransferase [Enzymatic activity/volume] in Serum or Plasma 17 U/L <40 [facility] Hemolyzed Urea nitrogen [Mass/volume] in Serum or Plasma 23 mg/dL 6-20 H [facility] Osmolality of Serum or Plasma by calculation 300 mosm/kg 275-300 [facility] Creatinine/Urea nitrogen [Mass Ratio] in Serum or Plasma 17 [facility] Bicarbonate [Moles/volume] in Serum 19 mmol/L 22-29 L [facility] Alanine aminotransferase [Enzymatic activity/volume] in Seru m or Plasma 20 U/L <41 [facility] Anion gap 3 in Serum or Plasma 17 mmol/L 8-15 H [facility] Glomerular filtration rate/1.73 sq M pre dicted among non-blacks [Volume Rate/Area] in Serum or Plasma by Creatinine-based formula (MDRD) 56 mL/min/1.73m2 >60 L [facility] Glomerular filtration rate/1.73 sq M pre dicted among blacks [Volume Rate/Area] in Serum or Plasma by Creatinine-based formula (MDRD) 65 mL/min/1.73m2 >60 [facility] ID Date Data Source [id number] 04/19/2021 10:29:10 AM [facility] Value Range Interpretation Code Description Data Renetta rce(s) Supporting Document(s) Thyrotropin [Units/volume] in Serum or Plasma 5.500 u[IU]/mL 0.270-4. 200 H [facility] ID Date Data Source [id number] 04/19/2021 12:35:58 PM [facility] Value Range Interpretation Code Description Data Renetta rce(s) Supporting Document(s) Erythrocyte sedimentation rate <20 [facility] ID Date Data Source [id number] 04/19/2021 10:12:19 AM [facility] Value Range Interpretation Code Description Data Renetta rce(s) Supporting Document(s) Lactate [Moles/volume] in Serum or Plasma 3.6 mmol/l 0.5-2.2 H [facility] ID Date Data Source [id number] 04/19/2021 10:20:13 AM EDT [facility] Name Value Range Interpretation Code Description Data Renetta rce(s) Supporting Document(s) Glucose [Mass/volume] in Capillary blood by Glucometer 348 mg/dL 70- 140 H [facility] ID Date Data Source [id number] 04/18/2021 11:39:00 PM EDT [facility] Name Value Range Interpretation Code Description Data Renetta rce(s) Supporting Document(s) SARS coronavirus 2 RNA [Presence] in Res piratory specimen by BAN with probe detection NEGATIVE [facility] This lab was ordered by [facility] a nd reported by [facility]. ID Date Data Source URINE CULTURE 02/14/2021 12:00:00 AM EDT eCW1 ([facility]) Name Value Range Interpretation Code Description Data Renetta rce(s) Supporting Document(s) URINE CULTURE eCW1 ([facility]) ID Date Data Source UA URINALYSIS 02/14/2021 12:00:00 AM EDT eCW1 ([facility]) Name Value Range Interpretation Code Description Data Renetta rce(s) Supporting Document(s) UA URINALYSIS eCW1 ([facility]) ID Date Data Source [id number] 12/07/2020 09:56:00 AM EDT [facility] ([facility], ) Name Value Range Interpretation Code Description Data Renetta rce(s) Supporting Document(s) PDFReport Laboratory test result [facility] ([facility], ) FVC-Pred 4.80 L [facility] ([facility]) FVC-Pre 2.82 L [facility] ([facility]) FVC-%Pred-Pre 58 L [facility] ([facility]) FVC-LLN 3.87 L [facility] ([facility]) Fev1-Pred 3.64 L [facility] ([facility]) Fev1-%Pred-Pre 67 L [facility] ([facility], ) Fev1-Pre 2.44 L [facility] ([facility], ) Fev6-Pre 2.81 L [facility] ([facility], ) Fev6-Pred 4.59 L [facility] ([facility]) Fev1-LLN 2.85 L [facility] ([facility]) Fev6-LLN 3.68 L [facility] ([facility], ) Fev6-%Pred-Pre 61 L [facility] ([facility], ) Trl9apk-Pzd 87 % [facility] ([facility]) Dka3tee-%Pred-Pre 114 % [facility] ([facility]) Whw8xop-Bchr 76 % [facility] ([facility]) Exp0qxa-Zeq 99 % [facility] ([facility]) Bnf2tfu-Mbcr 96 % [facility] ([facility]) Iby8bsi-YSQ 66 % [facility] ([facility]) FEFMax-Pre 5.43 L/E/sec [facility] ([facility]) FEFMax-Pred 9.30 L/E/sec [facility] ([facility]) Bjb1xuv-%Pred-Pre 103 % [facility] ([facility]) Hjo1145-Kudz 3.02 L/E/sec [facility] ([facility]) FEFMax-%Pred-Pre 58 L/E/sec [facility] ([facility]) FEFMax-LLN 6.97 L/E/sec [facility] ([facility]) Vxy8253-XTI 1.42 L/E/sec [facility] ([facility]) Uni6541-%Pred-Pre 91 L/E/sec [facility] ([facility]) Ard7331-Ilq 2.76 L/E/sec [facility] ([facility]) ExpTime-Pre 7.20 sec [facility] ([facility]) Zji5rjx3-Ffpa 79 % [facility] ([facility]) Upc7rrg2-Dln 87 % [facility] ([facility]) Zor4bhk2-DSF 70 % [facility] ([facility]) Sca1qkj6-%Pred-Pre 110 % [facility] ([facility]) ID Date Data Source [id number] 11/16/2020 03:33:00 PM EDT [facility] ([facility]) Name Value Range Interpretation Code Description Data Renetta rce(s) Supporting Document(s) Natriuretic peptide.B prohormone N-Terminal [Mass/volu me] in Serum or Plasma 94 pg/mL [facility] ([employer] [facility]) ID Date Data Source [id number] 11/16/2020 03:33:00 PM EDT [facility] ([facility]) Name Value Range Interpretation Code Description Data Renetta rce(s) Supporting Document(s) Blood Urea Nitrogen 16 mg/dL 7-18 [facility] ([facility]) Creatinine For GFR 1.01 mg/dL 0.70-1.30 [facility] ([facility]) Glucose, Fasting 246 mg/dL 70-100 [facility] ([facility]) Glomerular Filtration Rate Laboratory test result [facility]) <content>Units are mL/min/1.73 m2</content>
<content></content>
<content>Chronic Kidney Disease Staging per NKF:</content>
<content></content>
<content>Stage I & II GFR >=60 Normal to Mildly Decreased</content>
<content>Stage III GFR 30- 59 Moderately Decreased</content>
<content>Stage IV GFR 15-29 Severely Decreased</content>
<content>Stage V GFR <15 Very Little GFR Left</content>
<content>ESRD GFR <15 on [employer]OUTE SALES PERSON</content>
<content></content> Sodium Level 141 meq/L 136-145 [facility] ([facility]) Carbon Dioxide Level 28 meq/L 21-32 [facility] ([facility]) Potassium Serum 4.0 meq/L 3.5-5.1 [facility] ([facility]) Chloride Level 109 meq/L 98-107 [facility] ([facility]) Anion Gap 4 meq/L 8-16 [facility] ([facility] Calcium Level 9.2 mg/dL 8.5-10.1 [facility] ([facility]) ID Date Data Source [id number] 11/01/2020 11:36:31 AM EDT [facility] Name Value Range Interpretation Code Description Data Renetta rce(s) Supporting Document(s) Progress Note [facility] TNCXNw5fPjNKWzBk22/ZCTtxTGWqx2PeKTnfTWi4ZTfjPPLsY8ZlBLX1jR5pSXQ4WJfDIuXuAtVdLDR5 lbm [file] ICAgICAgICAgICAgICAgICAgICAgICAgICAgICAgICAgICAgICAgICAgICAgICAgICAgICAgICAgICAg LOXeMALrDNBpXM5ZZOGkVQWjTXItWJUxCZYsOLYfAFDzBJIpVPHjUOMiOTWaCVKbVPEuAPWvOEMbZMFl ICAgICAgICAgICAgICAgICAgICAgICAgICAgICAgIC LaIDMpIWMcRLZoKHUjZGPbEHPdET6SKYLxJNLaYGWiPUObYIHuMCZsMEOrVGOtNLFcEGUbFQWbMBAdXR AgICAgICAgICAgICAgICAgICAgICAgICAgICAgICAgICAgICAgICAgICAgICAgICAgICAgICAgICAgIC ZdIZ5QPBIgTZTuLABxULAwLJJgDHXlINHmHKEyWMYy ICAgICAgICAgICAgICAgICAgICAgICAgICAgICAgICAgICAgICAgICAgICAgICAgICAgICAgICAgICAg HJUyWBWxJWZbWPSuJW0RMYDiFEOiYOBsQSBzHDKhLIExCEAgYRTvOSKbXNWkKQNxCYZrSQVuINJiSPIj ICAgICAgICAgICAgICAgICAgICAgICAgICAgICAgIC MrLQEyGWSyWFHfIEGtHRKbEAQqSBPtCD4RXOJoSPXlDATwPBSmAULgGDJsHKWaFPTwSUWtXGUdIQVeTO AgICAgICAgICAgICAgICAgICAgICAgICAgICAgICAgICAgICAgICAgICAgICAgICAgICAgICAgICAgIC LoEZJyZD0WORRbZAAeZIMcDCRmZFRkPOAlABPfWVPi ICAgICAgICAgICAgICAgICAgICAgICAgICAgICAgICAgICAgICAgICAgICAgICAgICAgICAgICAgICAg BWUbCYPjBOMcIKJyTGYvLY3TYBQpBFFvPRIwGULmTZLsXPZpHAIbKRFcXEQePFVvPVIxLOMuANGwFGWj ICAgICAgICAgICAgICAgICAgICAgICAgICAgICAgIC KsSNBuGJBfLTUcHXDwBEKwWTAcVGMtJVFjHG8GRCEtNGWrGXXjIKWaRMVhBGPaCRAiMUTyVRXqJWYoTD AgICAgICAgICAgICAgICAgICAgICAgICAgICAgICAgICAgICAgICAgICAgICAgICAgICAgICAgICAgIC DiEELsPSVdIG2WJAZkHGLiNYRjNPUiWALwMMZvCHMe ICAgICAgICAgICAgICAgICAgICAgICAgICAgICAgICAgICAgICAgICAgICAgICAgICAgICAgICAgICAg QIJcQQMdCWCiEWOuYZVhNDCcWE9HZG55qCIwn4P8BRUuMD3xhjp/Go4FVUvdbjSijEFwWE1YGmNhMG0z vi6GDeMgIJ2erg3ZBObFKvEpL5A1xJPaYTPsKFONZy XkV90cOBbeQf53ICbtKSJfTkRdKVq3To6ATuPsT2fkARWgZmL3WTVnEyB3FBKcTsB3DWGjYeEoEXDmWY CwHQPsAGWLXHI4CRMuChDkCdXeNBWyPJ3FZVJpA808qvKbJf1XBo4UOfMhUS9tzj2AXwCkHKMbTdjAMo f1EGslGO3NpQAvlASwKyNdTNMJUbUvN0dmw1DgPuMz LSNGJDagUK0So4TygXOtIHx+Gx0QGE7ut9KyWEgvPvCtMQ6iaj2ADKsTVzTsM2HijObwRVLjp5fuEIMj TR5dvPDhPUU1PXBuwvqjkMrdTDLoWGCiyfphR6AohhdjENAzNZNuTE1iAB4tRVFeSVWoViNiDDHARP9K UOKvXNQdcFWeTSMwZAQIML0TKEmvDXB6RLXadsPgrT OjYNbeHC5IZBTpmeNmFpJzOHXCKLr+Vb4GQK0gf3CeTVpkAwCmIR4tkm9OYKpARpKeD3U6eNPeR4R6KR ayEk1KQKAtKHPoTpixCDCQMEupAZ6MUQ4geiR7ES1VdCXrDSUuEFKivTLuADc6B33vnAHqSWghVX3YHX A+Cristina+Po5SIINmKVHiFXEuMhJaVNLPLfYkQ1KbM1FY m4VkI4AcQQ81iJhbcyXlNQleHU2DLK8fWYMjSRZIKB6RwHZcuA4qsuMmFXHdALNEJsCyV22gnKPxFLUb BFYsTRPtWt4BIOPfJ6OzeqPbxSzppyUzVHStKWIPTL6HGQvgckYydTAasRayIC85uZszDB4NTk5RVmHm FH0rlg7MiWJzJr0FUASzMF9GBHWhNDZmSCGzUCE6HS ApFpUpIHrhZPVlGKHjBIO3SARtCOAiYT3XQxDxKSUrVRVlTWwaHEVrGJVwui2GKQSdGWR1AIiqWcKqUF VqFYSnUYduPZYcNYHfOQK2YAIpIBPzAC5CSeItUDRpAPF3LrDuGNEwBJLofm3IRVIlRRDfEKCiGJQdHN JqOQFpSVrvSMAzTIF9WWMaQXYuQUCuUV2HVrWkIZMs JEpsWrBlXBThZWDvnw6TUMCnDSUhAuQ0UfZcQJDxBPYwUBsoGTBnEMAjUQRaPFXzEFXfDF2RIrTsKDAj QEV3MrcbYKTnDRAxyz9MVNCpRJYzMUb5IrSaMZNcPCIrTQsxNTOpEXD8Ykv2BUSsPFByDU0LBcTjDQVg DHh0EJKpHEYvDFUtnv1EGMUsJGYiYMc0XACpWBUsJK WuFUyaHQQzPNNhHBOfRHGxYONlVA2KZkXcEUIbFaN1KSMpDXLlSZCfep0SBILdQXBbDVR6LgJbGDUjQU EdLLlnYIJgGMJ4KXX1CRMxEQRcUA6BLwIkTAZwJcNpLELuJBHsRQDacs5HWZZiTURjSxN6BkHbKZGhNS WdVDdbKNZiFKO1ECU6ZYNnIAImKY0SIwWgOKWuPmc4 VLtuUUJzUYAoso7JRUJlUJDzGjtoPyPkRTUjNHMnUBmfSXQuIEG7ZkH1PUYmTBSrIX4YKbRiBARzUko7 LSMaHLRwOSQnhf2FGKUdRHAyFXnyRCYyVMHqRLNgYHcsDXQiTDAzUHQlPNRhYAAsUA7AXmBrJSVpCIEh PSXmIXOrRCNvrd9IAZEzXOY5DLW7LjSuKWXwVVPsJF rpIOEeNVCeKLk2FYEpIHCfCC9WBiWgYKVxFPXdWLXlKMIsROBjdp9TEFBzRUO7EzJrDjTzSCMhLLTqMQ n7waEmeYCyQCh1PV5TB6SftlPnRkCOSm5Tf126IKHuXVQuZq1RR0juUy4mBDZnQPDDTh9GQYn0KBYtBk ThWDurDBHxRXGqJgBiIvXaYUI5FZCtZKSqKCB+IDw4 ZQQ4IAY3KVRqWoTsHkUqWKKkLrYiIThvQMY8SWD1Tp4kYJUUNx7+DQnfgSNrbAtsABBPWlTtJAB9YYyg EGDNCn7J ID Date Data Source [id number] 11/01/2020 11:36:26 AM EDT [facility] Name Value Range Interpretation Code Description Data Renetta rce(s) Supporting Document(s) Progress Note [facility] DNTZOl1pSlRMXpYi33/ZCSmtRNCjf3KjSFdcDEp6RLqtBLNbN7ZbSBM4uP4qKXT5WQcZOfYqSfWmNSU8 lbm [file] gIOPIV4TUAOcLQaWuZgMnho3E4ItDT6MVora// [file] KRLzJOg8KwLyHbQpEYY3YaBgAB2BCz5ZZaE2WWM0pVFgZo8EJrJhSiYOEcOwUP7ERCg= ID Date Data Source [id number] 09/27/2020 04:17:00 PM EDT [facility] ([facility]) Name Value Range Interpretation Code Description Data Renetta rce(s) Supporting Document(s) Creatinine For GFR 0.88 mg/dL 0.70-1.30 [facility] ([facility]) Blood Urea Nitrogen 19 mg/dL 7-18 [facility] ([facility]) Glucose, Fasting 150 mg/dL 70-100 [facility] ([facility]) Glomerular Filtration Rate Laboratory test result [facility] ([facility]) <content>Units are mL/min/1.73 m2</content>
<content></content>
<content>Chronic Kidney Disease Staging per NKF:</content>
<content></content>
<content>Stage I & II GFR >=60 Normal to Mildly Decreased</content>
<content>Stage III GFR 30- 59 Moderately Decreased</content>
<content>Stage IV GFR 15-29 Severely Decreased</content>
<content>Stage V GFR <15 Very Little GFR Left</content>
<content>ESRD GFR <15 on [employer] SAL[employer] PERSON</content>
<content></content> Sodium Level 141 meq/L 136-145 [facility] ([facility]) Chloride Level 107 meq/L 98-107 [facility] ([facility]) Potassium Serum 4.1 meq/L 3.5-5.1 [facility] ([facility]) Carbon Dioxide Level 27 meq/L 21-32 [facility] ([facility]) Anion Gap 7 meq/L 8-16 [facility] ([facility]) Calcium Level 9.2 mg/dL 8.5-10.1 [facility] ([facility]) Ast/Sgot 5 U/L 7-37 [facility] ([facility]) Alt/SGPT 22 U/L 12-78 [facility] ([facility]) Alkaline Phosphatase 101 U/L 45-117 [facility] ([facility]) Bilirubin,Total 0.6 mg/dL 0.2-1.0 [facility] ([facility]) Total Protein 7.2 GM/DL 6.4-8.2 [facility] ([facility]) Albumin 4.2 GM/DL 3.2-5.2 [facility] ([facility]) Albumin/Globulin Ratio 1.4 [facility]) ID Date Data Source [id number] 09/06/2020 03:50:00 PM EST [facility] ([facility]) Name Value Range Interpretation Code Description Data Renetta rce(s) Supporting Document(s) Ceruloplasmin [Mass/volume] in Serum or Plasma 26.6 mg/dL 1 6.0-31.0 Normal (applies to non-numeric results) [facility] ([facility]) Performed at: - [facility] [id number] [employer] Setter: Js Marcelo MD, Phone: [phone] Performed at: [facility] [address] [id number] [employer] Setter: Santa Blackburn MD, Phone: [phone] ID Date Data Source [id number] 09/06/2020 03:50:00 PM EST [facility] ([facility]) Name Value Range Interpretation Code Description Data Renetta rce(s) Supporting Document(s) Iron (Fe) 85 ug/dL 65-175 Normal (applies to non-numeric resul ts) [facility] ([facility]) Percent Saturation 30.4 % 19.7-50.0 Normal (applies to non-numer ic results) [facility] ([facility]) Total Iron Binding Capacity 280 ug/dL 250-450 Norm al (applies to non-numeric results) [facility] ([facility]) ID Date Data Source [id number] 09/06/2020 03:50:00 PM EST [facility] ([facility]) Name Value Range Interpretation Code Description Data Renetta rce(s) Supporting Document(s) Liver-Kidney Microsomal Lelo Laboratory test result 0.0-20.0 Normal (applies to non-numeric results) [facility] ([facility]) Negative 0.0 - 20.0 Equivocal 20.1 - 24.9 Positive >24.9 . LKM type 1 antibodies are detected in patients with autoimmune hepatitis type 2 and in up to 8% of patients with chronic HCV infection. ID Date Data Source [id number] 09/06/2020 03:50:00 PM EST [facility]) Name Value Range Interpretation Code Description Data Renetta rce(s) Supporting Document(s) Cytoplasmic Neutrop AB Anca-C Laboratory test result Normal (applies to non- numeric results) [facility] ([facility]) Perinuclear AB Anca-P Laboratory test result Nor mal (applies to non-numeric results) [facility] ([facility]) The presence of positive fluorescence ex hibiting P-ANCA or C-ANCA patterns alone is not specific for the diagnosis of Ally's Granulomatosis (WG) or microscopic polyangiitis. Decisions about treatment should not be based solely on ANCA IFA results. The International ANCA [employer] Consensus recommends follow up testing of positive sera with both RI- 3 and MPO-ANCA enzyme immunoassays. As m any as 5% serum samples are positive only by EIA. Ref. AM J Clin Pathol 1999;111:507-513. Anca-Atypical Laboratory test result Normal (applies t o non-numeric results) [facility] ([facility]) The atypical pANCA pattern has been obse rved in a significant percentage of patients with ulcerative colitis, primary sclerosing cholangitis and autoimmune hepatitis. ID Date Data Source [id number] 09/06/2020 03:50:00 PM [facility] ([facility]) Name Value Range Interpretation Code Description Data Renetta rce(s) Supporting Document(s) Mitochondria Ab [Units/volume] in Serum Laboratory test result 0 .0-20.0 Normal (applies to non-numeric results) [facility]) Negative 0.0 - 20.0 Equivocal 20.1 - 24.9 Positive >24.9 . Mitochondrial (M2) Antibodies are found in 90-96% of patients with primary biliary cirrhosis. ID Date Data Source [id number] 09/06/2020 03:50:00 PM EST [facility] ([facility]) Name Value Range Interpretation Code Description Data Renetta rce(s) Supporting Document(s) Antinuclear Antibodies Direct Laboratory test result Abnormal (applies to non- numeric results) [facility] ([facility]) [employer] Antibodies 1.1 AI 0.0-0.9 Above high normal [facility] ([facility]) Anti Double Strand-Dna AB 1 IU/ml 0-9 Normal (applies to no n-numeric results) [facility] ([facility]) <content>Negative <5</content>
<content>Equivocal 5 - 9</content>
<content>Positive >9</content>
<content></content> Hernandez Antibodies Laboratory test result 0.0-0.9 Normal ( applies to non-numeric results) [facility] ([facility]) Sjogren's Anti SS-B Laboratory test result 0.0-0.9 Vannessa l (applies to non- numeric results) [facility] ([facility]) Sjogren's Anti SS-A Laboratory test result 0.0-0.9 Vannessa l (applies to non- numeric results) [facility] ([facility]) Chad Comment Laboratory test result Normal (applies to non- numeric results) [facility] ([facility]) . Autoantibody Disease Association Condition Frequency -------- [...] (anti-Hernandez) SLE 15 - 30% ------- --------- [employer]OR [employer]ING Mixed Connective Tissue Disease 95% (U1 nRNP, SLE 30 - 50% anti-ribonucleoprotein) Polymyositis and/or Dermatomyositis 20% -------- --------- Scl-70 (antiDNA Scleroderma (diffuse) 20 - 35% topoisomerase) Crest 13% -------- --------- Christine-1 Polymyositis and/or Dermatomyositis 20 - 40% -------- --------- Centromere B Scleroderma - Crest variant 80% ID Date Data Source [id number] 09/06/2020 03:50:00 PM [facility] ([facility]) Name Value Range Interpretation Code Description Data Renetta rce(s) Supporting Document(s) Tissue transglutaminase IgA Ab [Units/volume] in Serum Labor atory test result 0-3 Normal (applies to non-numeric results) [facility]) Negative 0 - 3 Weak Positive 4 - 10 Positive >10 . Tissue Transglutaminase (tTG) has been identified as the endomysial antigen. Studies have demonstr- ated that endomysial IgA antibodies have over 99% specificity for gluten sensitive enteropathy. IgA [Mass/volume] in Serum or Plasma 99.5 mg/dL 70-400 Normal (applies to non- numeric results) [facility] ([facility]) 09/13/20 (FriSep 13) 12:58 PM RACHEL CURIEL ok ID Date Data Source [id number] 09/06/2020 03:50:00 PM [facility] ([facility]) Name Value Range Interpretation Code Description Data Renetta rce(s) Supporting Document(s) White Blood Count 6.2 10 4.0-10.0 Normal (applies to non-numeri c results) [facility] ([facility]) Red Blood Count 4.31 10 4.30-6.10 Normal (applies to non-numeric results) [facility] ([facility]) Hemoglobin 12.9 g/dL 13.5-17.5 Below low normal [facility] ( [facility]) Mean Corpuscular Hemoglobin 29.9 pg 27.0-33.0 Norm al (applies to non-numeric results) [facility] ([facility]) Hematocrit 38.3 % 42.0-52.0 Below low normal [facility] ( [facility]) Mean Corpuscular Volume 88.9 fl 80.0-96.0 Normal ( applies to non-numeric results) [facility]) Red Cell Distribution Width 14.8 % 11.5-14.5 Above high normal [facility]) Mean Corpuscular HGB Conc 33.7 g/dL 32.0-36.5 Normal (applies to non-numeric results) [facility] ([facility]) Platelet Count, Automated 234 10 150-450 Normal (applies to non-numeric results) [facility]) Neutrophils % 52.8 % 36.0-66.0 Normal (applies to non-numeric re sults) [facility] ([facility]) Lymph % 34.1 % 24.0-44.0 Normal (applies to non-numeric resul ts) [facility] ([facility]) [place] % 8.0 % 2.0-8.0 Normal (applies to non-numeric resul ts) [facility] Eos % 3.3 % 0.0-3.0 Above high normal [facility] ([facility]) Baso % 1.0 % 0.0-1.0 Normal (applies to non-numeric resul ts) [facility] ([facility]) Nucleated Red Blood Cell % 0.0 % 0-0 Normal (applies to n on-numeric results) [facility]) Immature Granulocyte % 0.8 % 0-3.0 Normal (applies to non-n umeric results) [facility] ([facility]) Lymph # 2.1 10 1.5-5.0 Normal (applies to non-numeric resul ts) [facility] Neutrophils # 3.3 10 1.5-8.5 Normal (applies to non-numeric re sults) [facility]) [place] # 0.5 10 0.0-0.8 Normal (applies to non-numeric resul ts) [facility]) Baso # 0.1 10 0.0-0.2 Normal (applies to non-numeric resul ts) [facility] Eos # 0.2 10 0.0-0.5 Normal (applies to non-numeric resul ts) [facility]) ID Date Data Source [id number] 09/06/2020 03:50:00 PM EST [facility] ([facility]) Name Value Range Interpretation Code Description Data Renetta rce(s) Supporting Document(s) Inr 1.02 Normal (applies to non-numeric resul ts) [facility]) THERAPUTIC HUMAN INR VALUES INDICATIONS NORMAL RANGES PROPHYLAXIS/TREATMENT OF: VENOUS THROMBOSIS 2.0-3.0 PULMONARY EMBOLISM 2.0-3.0 PREVENTION OF SYSTEMIC EMBOLISM FROM: TISSUE HEART VALVES 2.0-3.0 ACUTE MYOCARDIAL INFARCTION 2.0-3.0 VALVULAR HEART DISEASE 2.0-3.0 ATRIAL FIBRILLATION 2.0-3.0 MECHANICAL VALVES(HIGH RISK) 2.5-3.5 RECURRENT MYOCARDIAL INFARCTION 2.5-3.5 Prothrombin Time 13.6 s 12.5-14.3 Normal (applies to non-numeric results) [facility]) ID Date Data Source [id number] 09/06/2020 03:50:00 PM [facility]) Name Value Range Interpretation Code Description Data Renetta rce(s) Supporting Document(s) Alt/SGPT 67 U/L 12-78 Normal (applies to non-numeric resul ts) [facility] ([facility], ) Ast/Sgot 16 U/L 7-37 Normal (applies to non-numeric resul ts) [facility]) Alkaline Phosphatase 114 U/L 45-117 Normal (applies to non-num sagar results) [facility] ([facility]) Bilirubin,Total 0.7 mg/dL 0.2-1.0 Normal (applies to non-numeric results) [facility]) Bilirubin,Direct 0.2 mg/dL 0.0-0.2 Normal (applies to non-numeric results) [facility]) Total Protein 6.9 GM/DL 6.4-8.2 Normal (applies to non-numeric re sults) [facility]) Albumin/Globulin Ratio 1.3 Normal (applies to non-n umeric results) [facility]) Albumin 3.9 GM/DL 3.2-5.2 Normal (applies to non-numeric resul ts) [facility] ([facility], ) ID Date Data Source [id number] 09/06/2020 03:50:00 PM EST [facility] Name Value Range Interpretation Code Description Data Renetta rce(s) Supporting Document(s) Hepatitis C Virus Lelo Index Laboratory test result Normal (applies to non- numeric results) [facility] ([facility], ) Hepatitis B Core Antibody Igm Laboratory test result Normal (applies to non- numeric results) [facility] ([facility]) Hepatitis B Surface Antigen Laboratory test result Normal (applies to non- numeric results) [facility] ([facility]) Hepatitis A Antibody Igm Laboratory test result Normal (applies to non-numeric results) [facility] ([facility]) ID Date Data Source [id number] 09/01/2020 03:21:[address] [facility] Name Value Range Interpretation Code Description Data Renetta rce(s) Supporting Document(s) [facility] LSRSHc6dVaJFYvJo51/WZLagUDJag7LvDRwkHXz7CDrnNNOtE7WwGLB7nB8xMJM5NCrZZhOdRlMsWgJ9 [facility] [file] AgICAgICAgICAgICAgICAgICAgICAgICAgICAgICAgICAgICAgICAgICAgICAgICAgICAgICAgICAgIC AgICAgICAgICAgICANCiAgICAgICAgICAgICAgICAgICAgICAgICAgICAgICAgICAgICAgICAgICAgIC AgICAgICAgICAgICAgICAgICAgICAgICAgICAgICAg ICAgICAgICAgICAgICAgICAgICAgICANCiAgICAgICAgICAgICAgICAgICAgICAgICAgICAgICAgICAg ICAgICAgICAgICAgICAgICAgICAgICAgICAgICAgICAgICAgICAgICAgICAgICAgICAgICAgICAgICAg ICAgICANCiAgICAgICAgICAgICAgICAgICAgICAgIC AgICAgICAgICAgICAgICAgICAgICAgICAgICAgICAgICAgICAgICAgICAgICAgICAgICAgICAgICAgIC AgICAgICAgICAgICAgICANCiAgICAgICAgICAgICAgICAgICAgICAgICAgICAgICAgICAgICAgICAgIC AgICAgICAgICAgICAgICAgICAgICAgICAgICAgICAg ICAgICAgICAgICAgICAgICAgICAgICAgICANCiAgICAgICAgICAgICAgICAgICAgICAgICAgICAgICAg ICAgICAgICAgICAgICAgICAgICAgICAgICAgICAgICAgICAgICAgICAgICAgICAgICAgICAgICAgICAg ICAgICAgICANCiAgICAgICAgICAgICAgICAgICAgIC AgICAgICAgICAgICAgICAgICAgICAgICAgICAgICAgICAgICAgICAgICAgICAgICAgICAgICAgICAgIC AgICAgICAgICAgICAgICAgICANCiAgICAgICAgICAgICAgICAgICAgICAgICAgICAgICAgICAgICAgIC AgICAgICAgICAgICAgICAgICAgICAgICAgICAgICAg ICAgICAgICAgICAgICAgICAgICAgICAgICAgICANCiAgICAgICAgICAgICAgICAgICAgICAgICAgICAg ICAgICAgICAgICAgICAgICAgICAgICAgICAgICAgICAgICAgICAgICAgICAgICAgICAgICAgICAgICAg ICAgICAgICAgICANCiAgICAgICAgICAgICAgICAgIC AgICAgICAgICAgICAgICAgICAgICAgICAgICAgICAgICAgICAgICAgICAgICAgICAgICAgICAgICAgIC AgICAgICAgICAgICAgICAgICAgICANCjw/jPEbH7ridCNxpqI0M7uxZa2UNn5SFS1qo3ZvFYTzXZtnbs LwHekSQkWmFPCcMxeTRzp1ZXxrJO3PnHShY0BzS2Ni IZswNQ4AJHQiMCWcnMNnKDWmRNBmVzC4VNMaFJbxZL9IjTGmNSluMIEiGQBoQeStSEXdYUUcPUWhKVRy WXHPVVUfLRYuGmErFMXfDSWrBBfeNYEZEW2HOfRuF5RonM97IRyPYf8+OVdxoxPkHcoAJzVnJBQcg4Vy ZQu4KN3LIOKnGbbdq9WyEnRmDBCWRDhoBU2RUKB7WR UnHICtVm8RXQTjO042ctImZB0ZMg1IXcFgHA0exy0NXdVhHJYqZpmPPod0MJvhIM5RkIEbQYsPca8ysq DzldDUe9ZldtZrfIXOBR3lIBxnHCWHEMypaiPvquu2y42dEPHTDHH7RBSpDpZbUdLiOVFfFfa7KWKAQG qXBbCiO2Oxa2JdPrP6TZLkOlNgKSlnDYHbFsB4YK36 lAvjHQ6FSZWtBUOiIH60PWLgLPEdMz3ZSd5VAyMqFK2mdv1NTnFnSPSuMqeHTni5YRjlKR0VvFVoZ9Xp jEMus3lEHsCbA8LZPOG6OWVpFv3CQJZvJgYoDITjYIagBG2pNGEyTXTIqDchpvM6LP1MAX2psrEbPS2U KeReWb9yMi0YWjSgV9IwF1MyOERmXOVLBQfdRM2JRZ btMU2oEK6Af0MHgIVzhJ2oax7AIYGmQFGzVxrruu3GKrzyH3H1iFfjMCLaBrCiGZIJDVujMW7FDRIoFC T7RJRsZZEvSMYBZnRvU20bYP1SR8Siz88oYnS5EUXxEhUdCGdqIX68xKngnbXhfKOltNkhBC4MSi0+DQ plbmRvYmoNCnhyZWYNCjAgMzQNCjAwMDAwMDAwMDAg TiU8NfWsVd9DNFAiLTOpZBCpLkAbYYRzBNPjUXxuHQHnTNAaEWU3XBItYFDeAW0QEaDcULQmWSG3NEdt NMCcANWzle2TJBBzEVHjPNW8JgToTSJgMZZsUBnyAEMtUQU5VXWbZUWvSOUoKI0KFsDpPSEvWFVjSfCr ANCmHGLkwd7EKLCrMHNpPEbpTtDbNLRaTQJvAKgjPG EqGDK8ZPTsJPVgCHMyIF0QHaYuZGTkDZK3QhRyTXQuHGNdyw8WNBBsDIEsYeu5HCTjMIIwLFRxCKlzCL TiGTI7FZBuBNQuFEVuUF8HRpWgAWXrGAM1NJUcEQIuXUNqyt3CONVyTFMkXphqYlUxBLLqUIOnTTowHW VbNCI2NLAuOLTzLCYkWB3TQpXhKPPpZsM9QXXsWUIa EGZshs7LJGJyWUKeVLbgJTPrDWOmTHJrGFjoZKWiBQQ5RnpfQWKgQAQfIC4ORsCkWRKvZuB4RTsvOVHy LBZpgl2CSDDhTYCcCXn5OFCeGKTzFITaRChnMBJjQPB0LTQ4GZAdYGUlVD9YNfIeOIQfYzHsRivaFIYu ZAPmam2NFMIfTTHxJtE8DkLeZCNvYVMnRHpbWDDkOH J4FBv1LGJaSGJhCT3UNrTjKHUwXtr5TWjbBSTiEQPsgh1OLUHdOXJiXIPfWkTeBDXyMJNzFEehLXFsPJ H7ZRKoPPQtKZHkIY3HHqYvKRSwFce8BTIeBFLkAMOrif4YLBVfOXEhULnqRLDoWKQvISPbYWlaPUVwXE NjCYX0FPEoOANuSD6SEdLzIXAaEGG1PSocYMHtMYZf sc4JWWIqZVO7OWlpKmFvSEGqLPXqJGkrFWVzFUScXIn2EDMwPLJeJM8SJwRtYMGdUBPoWMNiSKJmUPEb ae4PkFHrmPeonb7OMJbGBc8ZbNyxMMK2GWadHs6gjMWzThItPISUFs3UdsMsRYObOSKCQUyaVKWmFAAs QDD5UzTjIYEjSGE5MHT5OgH3ZZZtCJu5AEFsTQRmLv C6AeB0ENQbMQP9MwPxMeblCJyqMAJgLRA6QdRhGGC8XNU+IP7bKWp+Bg8Pi9StcyI7ezGzXZd4SwA8Th 2QONRGC8HYOy== ID Date Data Source [id number] 09/01/2020 03:21:[address] [facility] Name Value Range Interpretation Code Description Data Renetta rce(s) Supporting Document(s) Progress Note [facility] WGIIXk9zUoWWJbHi32/LEYhsQAXoh0LlPZtoFPh5KSshTTBqS2YfLQK1rA6pUBN7JQrOCvLhObSnOuL6 lbm [file] AgICAgICAgICAgICAgICAgICAgICAgICAgICAgICAgICAgICAgICAgICAgICAgICAgICAgICAgICAgIA 0KICAgICAgICAgICAgICAgICAgICAgICAgICAgICAg ICAgICAgICAgICAgICAgICAgICAgICAgICAgICAgICAgICAgICAgICAgICAgICAgICAgICAgICAgICAg DPBeJOYfRGJaYH2CLVHnSDUhVWPuLHRcCYLdEEJoHGLcFLXjMAOiBMAxWKBiTSFbXNLcQIMrTJJaYADy ICAgICAgICAgICAgICAgICAgICAgICAgICAgICAgIC ZlYMEpSEBnUFFnEZHfPVQbQHFyIT6LSWZxGUNfQGXoJORiXVCgKYEnMZJuBPJfKLVtWGLpWARhNGBzCN AgICAgICAgICAgICAgICAgICAgICAgICAgICAgICAgICAgICAgICAgICAgICAgICAgICAgICAgICAgIC QaIO1BFIMuHEKhAZEfGXNzEEKcWTOeSEJqKJLoTUBz ICAgICAgICAgICAgICAgICAgICAgICAgICAgICAgICAgICAgICAgICAgICAgICAgICAgICAgICAgICAg BEGoIOUyQVKfPLTnQJ5SOFYzORVrFZItOMJtXGAuTMHlAUDxJIMaAYNpJHBiZCDtKWMmLCMdHIAkNUAx ICAgICAgICAgICAgICAgICAgICAgICAgICAgICAgIC UyPQDsZEBkJZKiUTGhZSSbYXEvJKYeUA3PVXGnYDGdXUIaKKDvBVExURSfBBOkBVDfBEXtMPNqNBYfQW AgICAgICAgICAgICAgICAgICAgICAgICAgICAgICAgICAgICAgICAgICAgICAgICAgICAgICAgICAgIC FfGKXxSX0YNFYyGBSwKQKoDFHmPBMdRZQmBVNhEHBu ICAgICAgICAgICAgICAgICAgICAgICAgICAgICAgICAgICAgICAgICAgICAgICAgICAgICAgICAgICAg ORVhFFSaTKCiZNHmBMVqRE7SLKBkVFGiSZCkMIJwFSJlDEHhQKTqNGRkLFIbSOItYAWeEDAgAGMnUZSx ICAgICAgICAgICAgICAgICAgICAgICAgICAgICAgIC IqPTZwRWLhEGUxDTUaSMRnVOLoBJUhOVNfDL4ZOXAqEOOlSPZeRGWxCSDnVHDsUJTyKRIrWQFsGGCrGT AgICAgICAgICAgICAgICAgICAgICAgICAgICAgICAgICAgICAgICAgICAgICAgICAgICAgICAgICAgIC LxHIXyLPOsRW5ZTW38iXXhh4S5VDUwWJ4atdn/Pg0K NKwjuePyuQEhOJ0ITfVcZJ2gmv3GEzAyXH5ted1LCWkFDdHnJ5O9dYYjQXTdVMUITwBkX49jVWdhFm82 GWzbAYXjGjQwNPi4Rm4ELbYtL6fvYSIvAgR0GMFsJkWpJMeqWN7Gj5WmjOYeIYq+Ww3YIJ1uo5JuAOnc TfEaEX0mzs9GFQrJJuKkN8OpymF6BMHdSKFlHt6ALG OzAPAikNAaItXhUXYXTfCkN8EjeS48YUXDSe2+QAekycAbMlcSEwQjTCUum3ApJTr4MY9QWZXvMJu1cP NeQBEoQ3Rgc9AmFy28QXYpSrhbKDlfLHFMSNn0rlP8DQPVIJ0tPEMxHu1mHa9pPTNbTRMmVwSeTZOIZI 2IHAUtTMNmuNDcELFsNLFPGG2FELzoEMO9UBCerySw qVMuOSscQD6SRQRcdcCyGmJqGWYIRWy+Hy4CTA0ds5TmRTeuIBJhAO2phl4KJXiZHyCuL3L9cBMkN1B8 GNqeXi7DNOYzLMYtVaNnDLGPPKogZR8ELX0qtkW6DP6MxENlNNRnTPLoaDJuOJy3J98inKMoXZmzNO4O ICA+Cristina+Xj4HCNJmBLOeGDOjWuWgVIKTUjYbB9PdR7 NIj0WdQ2RwPV10oRkoacOwSMunCC0NHI0uCDNvWJTALA1SpCFgvQ9akxZbPsKiMMTUTgBmK90lpTLnOV McSIFqYJWoSi3AMFIsQ1WyduVfmChobeDvRLZpCYIKTH9ONGveilDlkNGoyLcyQD59dTwlFR6WAp3UOx MgUP6uhw7KqRMlHe4DFJRpPU9KNXLxFVYzRXMfIED3 YLEpReRdSXjgBKBbGWJpKUN3KWLiERCzZA8VScUqAYQsXRr5ZFxzBOShUGTtde1KFPCvLGUgKREgLlMb PSPqNZIyNGjgYRJlTGNxGCY7ENUnQOYzMJ1ZPlAeRPHrRROrYTzzQDZpSTCuzy3QLNGoYBAcWpFuSfWk VSGlKGLgQGvwXPTjBRUnDtljYJYaEBOoIT1FPeKhKA ZbNOO3GkveEDXuXWMxyw0LHAXaHGDrEtM4YhEzJTXtNDQmOGasJCYmZBK0EcW3JJAfHYCdIZ9QPiGmQL YfFTZ4CRkfLONlEJHfdx4XBLTvSZZoVRFbEBArLBQyZSZrQQekRGYaRVZ1QqI5PQTxGRAkSC5MQbBaXR DfCOO4LzGeHEScHFYebu7OXNGzIUMsMsg0YGObDHMw TYNiMFngXRAbQZX5FFR1LMEnMMOcUC1KUgYrRZLeXQijIqBpFVFfBKHdlx9REPBeFOYoYXKzRBHoWZOw CSBjNXslFUWgMKY9Dyp1QCDfAMHiON5ZBdSjLGNuVHz0NsWeRGMfVVFqhr5XJFViVMRrLXr5AcUtTQMw DETuCIxuOORrDBIzJJLzJBMoIUTxBI8IIrPvPJSfSe N1CHLvRZEcQTQryl0JTJLvYQUqXUWoTOIiWRNtGCDgWCn1ecLueYCaWBb6YI1KG7UmmbMwRdOJBe9Ue7 43GHM9ROKyEb3FT0rfWe7gLBAmHQFSOm4ROMd3QiCkFECpZZUiKvO0XMs5EBStG9JuPCSeYEUcDfNeMB E+ECo7RRB8ZLPhPPJeXIooSdCxLBZzRCOlTRAaM7S3 SKXaWF3lXDBLQi1+MGqcfFEztGxwPIZIJsRhCJzrYBphYMBVNr7L ID Date Data Source [id number] 07/13/2020 01:35:00 PM EST [facility] Name Value Range Interpretation Code Description Data Renetta rce(s) Supporting Document(s) Respiratory pathogens identified [Type] in Nasopharynx by Probe and target amplification method SARS-CoV-2 (COVID 19) [facility] [place] This lab was ordered by [facility] a nd reported by [facility]. ID Date Data Source [id number] 07/04/2020 12:00:00 AM EST [facility] Name Value Range Interpretation Code Description Data Renetta rce(s) Supporting Document(s) Carestart Rapid [facility] Antigen [facility] This lab was reported by Alexander hernandez. ID Date Data Source [id number] 06/04/2020 03:54:00 PM EST [facility] Name Value Range Interpretation Code Description Data Renetta rce(s) Supporting Document(s) SARS-CoV-2 (COVID 19) [facility] This lab was ordered by [facility] a nd reported by [facility]. ID Date Data Source CBC with Differential 05/24/2020 12:00:00 AM EST eCW1 ([facility]) Name Value Range Interpretation Code Description Data Renetta rce(s) Supporting Document(s) 5.3 4.0-10.0 WHITE BLOOD COUNT eCW1 ([facility]) 4.70 4.30-6.10 RED BLOOD COUNT eCW1 ([facility]) 14.2 13.5-17.5 HEMOGLOBIN eCW1 ([facility]) 33.8 32.0-36.5 MEAN CORPUSCULAR HGB CONC eCW1 ([facility]) 42.0 42.0-52.0 HEMATOCRIT eCW1 ([facility]) 30.2 27.0-33.0 MEAN CORPUSCULAR HEMOGLOB IN eCW1 ([facility]) 89.4 80.0-96.0 MEAN CORPUSCULAR VOLUME e CW1 ([facility]) 8.8 0.0-5.0 MONO % eCW1 ([facility]) 12.5 11.5-14.5 RED CELL DISTRIBUTION WID TH eCW1 ([facility]) 51.8 36.0-66.0 NEUTROPHILS % eCW1 ([facility]) 34.5 24.0-44.0 LYMPH % eCW1 ([facility]) 184 150-450 PLATELET COUNT, AUTOMATED eCW1 ([facility]) 2.8 1.5-8.5 NEUTROPHILS # eCW1 ([facility]) 0.9 0.0-1.0 BASO % eCW1 ([facility]) 0.5 0.0-0.8 MONO # eCW1 ([facility]) 3.6 0.0-3.0 EOS % eCW1 ([facility]) 1.8 1.5-5.0 LYMPH # eCW1 ([facility]) 0.1 0.0-0.2 BASO # eCW1 ([facility]) 0.2 0.0-0.5 EOS # eCW1 ([facility]) ID Date Data Source [id number] 05/24/2020 12:00:00 AM EST eCW1 ([facility]) Name Value Range Interpretation Code Description Data Renetta rce(s) Supporting Document(s) Hemoglobin A1c/Hemoglobin.total in Blood 6.7 HEMOGLOBIN A1c W1 ([facility]) ID Date Data Source LIPID PANEL (CARDIAC RISK) 05/24/2020 12:00:00 AM EST eCW1 ( [facility]) Name Value Range Interpretation Code Description Data Renetta rce(s) Supporting Document(s) Triglyceride [Mass/volume] in Serum or Plasma by calculation 84 <150 TRIGLYCERIDES LEVEL eCW1 ([facility]) Cholesterol in HDL [Moles/volume] in Serum or Plasma 35 >40 HDL CHOLESTEROL eCW1 ([facility]) Cholesterol [Moles/volume] in Serum or Plasma 119 <200 CHOLESTEROL LEVEL eCW1 ([facility]) 84 NON-HDL-C eCW1 ([facility]) Cholesterol in LDL [Mass/volume] in Serum or Plasma by calculation 67 <100 LDL CHOLESTEROL eCW1 ([facility]) 3.400 <5 CHOLESTEROL RISK RATIO eCW1 ([facility]) ID Date Data Source FREE T4 & TSH PANEL 05/24/2020 12:00:00 AM EST eCW1 ([facility]) Name Value Range Interpretation Code Description Data Renetta rce(s) Supporting Document(s) 2.800 0.358-3.740 eCW1 ([facility]) 1.02 0.76-1.46 eCW1 ([facility]) ID Date Data Source Comprehensive Metabolic Profile (CMP) 05/24/2020 12:00:00 AM EST eCW1 ([facility]) Name Value Range Interpretation Code Description Data Renetta rce(s) Supporting Document(s) 109 70-100 GLUCOSE, FASTING eCW1 ([facility]) 14 7-18 BLOOD UREA NITROGEN eCW1 ([facility]) > 60.0 >56 GLOMERULAR FILTRATION RATE eCW 1 ([facility]) 110 98-107 CHLORIDE LEVEL eCW1 ([facility]) 1.00 0.70-1.30 CREATININE FOR GFR eCW1 ([facility]) 4.1 3.5-5.1 POTASSIUM SERUM eCW1 ([facility]) 143 136-145 SODIUM LEVEL eCW1 ([facility]) 8.6 8.5-10.1 CALCIUM LEVEL eCW1 ([facility]) 10 7-37 AST/SGOT eCW1 ([facility]) 28 21-32 CARBON DIOXIDE LEVEL eCW1 ([facility]) 27 12-78 ALT/SGPT eCW1 ([facility]) 3.8 3.2-5.2 ALBUMIN eCW1 ([facility]) 1.4 ALBUMIN/GLOBULIN RATIO eCW1 ([facility]) 0.7 0.2-1.0 BILIRUBIN,TOTAL eCW1 ([facility]) 6.6 6.4-8.2 TOTAL PROTEIN eCW1 ([facility]) 93 45-117 ALKALINE PHOSPHATASE eCW1 ([facility]) ID Date Data Source [id number] 04/20/2020 04:48:22 PM EDT [facility] Name Value Range Interpretation Code Description Data Renetta rce(s) Supporting Document(s) Progress Note [facility] QLZKMb3lIePBMxRb94/IZIvxUFBil6XvEHzhGJz9SMxmIAVpQ7IgBHD4xX2nTBL5UIfTXzLeSdEdHGW4 lbm [file] ICAgICAgICAgICAgICAgICAgICAgICAgICAgICAgIC AgICAgICAgICAgICAgICAgICAgICAgICAgICAgICAgDQogICAgICAgICAgICAgICAgICAgICAgICAgIC AgICAgICAgICAgICAgICAgICAgICAgICAgICAgICAgICAgICAgICAgICAgICAgICAgICAgICAgICAgIC AgICAgICAgICAgICAgDQogICAgICAgICAgICAgICAg ICAgICAgICAgICAgICAgICAgICAgICAgICAgICAgICAgICAgICAgICAgICAgICAgICAgICAgICAgICAg ICAgICAgICAgICAgICAgICAgICAgICAgDQogICAgICAgICAgICAgICAgICAgICAgICAgICAgICAgICAg ICAgICAgICAgICAgICAgICAgICAgICAgICAgICAgIC AgICAgICAgICAgICAgICAgICAgICAgICAgICAgICAgICAgDQogICAgICAgICAgICAgICAgICAgICAgIC AgICAgICAgICAgICAgICAgICAgICAgICAgICAgICAgICAgICAgICAgICAgICAgICAgICAgICAgICAgIC AgICAgICAgICAgICAgICAgDQogICAgICAgICAgICAg ICAgICAgICAgICAgICAgICAgICAgICAgICAgICAgICAgICAgICAgICAgICAgICAgICAgICAgICAgICAg ICAgICAgICAgICAgICAgICAgICAgICAgICAgDQogICAgICAgICAgICAgICAgICAgICAgICAgICAgICAg ICAgICAgICAgICAgICAgICAgICAgICAgICAgICAgIC AgICAgICAgICAgICAgICAgICAgICAgICAgICAgICAgICAgICAgDQogICAgICAgICAgICAgICAgICAgIC AgICAgICAgICAgICAgICAgICAgICAgICAgICAgICAgICAgICAgICAgICAgICAgICAgICAgICAgICAgIC AgICAgICAgICAgICAgICAgICAgDQogICAgICAgICAg ICAgICAgICAgICAgICAgICAgICAgICAgICAgICAgICAgICAgICAgICAgICAgICAgICAgICAgICAgICAg ICAgICAgICAgICAgICAgICAgICAgICAgICAgICAgDQogICAgICAgICAgICAgICAgICAgICAgICAgICAg ICAgICAgICAgICAgICAgICAgICAgICAgICAgICAgIC LfDCYlNQQcJPIpRPAwOCRtRRRmJKBsKQLxMSOuWQVoLTWsJQYaQHRjCQh9V9jxLKXlJHHeTK0bNVk8Yo 8+RZmMDtMqEHA7flNzcZ8LUA9bw1AjICceGKFht7DbOOi2BO8YKNPhFNhgHI5SMHjkjd8AFAUuXBOejE LZc4ecOdQtEHX8FKFvLjftIR4DXYBpV3yutkNiUGUs RARYHFgpIGXJDYwxRCBAOBWkOKFeJuLiMjYmIPPwEWZdBHXZBRD8RXQhUvTtGUTrALRyZfAtODYUPL4A LxKpY0JdsS03WJnXZl7+AWlqhrQwCcpLMmV2KZYdd8FlTEk8JV3SFJYsMbyue4BmPsujGXPEOFouJR7N HQQ7VYH8YSAfZo1WNMRaD420phVwWW5IHw9DVoPvZL 5vkc0VMxxpACWnTtzALim6WScsPF2WoPXcGQeGwx2wcvRxvtTQr7ZybeItcRVFUO4zUTryRKZAAMZ3ft cnxTshBKHtXLPyFOUoGWPkIsQuREJaLTmmFDGMYMlGZgCyS4Jxu7BpTpS7DRWpEyXgPLxwOEWqZtC5KV 93vScdYG7YBUKjODEpXB86ISS2TOWuXr7TPg6WAxJu TU4cgt5QSXXzSSHsRewVHbe7ZVtdII3MlQWkC0PsgZBje2rMJxDwN1HPRWY5IHCcWt2FCODsVxXrQROk JMyaDA3xFKSdCLMPnCkdykN0YI8MDD0uuiKjJG2AVgWgCh1yWh4BRlCvJ1AyV2TxJYKbVKRDRDfkWX4R ZVfyWG4iUO3Yf3WAcXYzcV0qoo4AURTbTHJiEdqpne 9OZiskP0Y1yFnzSQZvEhvsWXWVMEneWS2PRQIwLZW6VPGrVnWjZDAPXdAkT70aXE1DL5Zld02kFuH6YN BoOqGpDEtrQV86vBbwivGbhCHeuMwdAK3ZWm6+DQplbmRvYmoNCnhyZWYNCjAgNDENCjAwMDAwMDAwMD FiYmB8QsZmPl6YIEAcPZFsCNFoGkIiEBFsKTMbZIxd IWIzIXW1NAtjIAEyXGKrOE6HEwKwEHCdQQo4CQosODEhUHQfwn1ICJQoAMEaOFM1FgJsTSQvAWRmQGzv MYAnGBG0MYl5BLPpQMWbBL3MWgSnEXDqUBY4BCtgEEXyOXAlvc9NKZLsJHYnPXJ0RrRoERFkPGCzDOcp QMFkKEU3MKgiLBWgFYEeMQ9IMtNlHCYhUPIcSSZiVP MlHAKelj5ZLFDsQCIbTAX7VKLtXAWwQXRgTMgtSBQvTAK1XDE6XTPxJDPjNL0WYbFqLQChOXY1FlKlBS KbNTExmc8IFZRoIYKkUEUpNtVeDGIsRYShUDriCVXaPUQ2RuUvAIJqNRIbTH8MKdRhWDJrBjD3NyebMZ AjRSXarp4SBPHrFHFvWSF5YMLfXHXgKLFgMInjHKTm VOCyVRJpKQHpOHMlML8RTxIgPSImFyBqLZVzTWKmTGLakq4FOKWgYCBcHsceJZTeDFOaVRXhRLmjEMKh ZDK1UBB8YAQyCFFbBF6NHxBnSWFaFpf1YEOoLSVcTVSmkl6TQQLhRBEvCFZ0EDLrRCWqDHGqJMeoQOXj LKIjNnKaTOFpYFRfPU4GNrXkSSMxJxK0VDurOZShSA Zaih6DBFTlNWSvBLWqENDhBRHqRLOgVBhqPXSjQOFoWUkaRQJoYTMxDK2WCsNpFGCiUxMsIRDrTAMlQX Xrle7FKDUtZJAtJlF0IEDrXNFdVCNqNKzaNTUpCERyXLOcQQNoCYLxGU8UFrYaZGLyAEAwWoPcVKAjLL Ziwj7HZCTrMWB7WWW6URBsDLPnHADzLFwaOCHtEDP8 XLr2ENDlUQIaXO5TOrNmAIRrKZB1FOUmKPNsIIDvky4DOVTfUAH8FRT5NTJrSKAfQSLeOSiqTTFjVOM1 DZrfDRCdASQlWH9MZiVzHFAwTBZbPEJjBUIdOEGbhj4KCHKgFCM1WmL4ArNvYAHqQYVnYHrrMEYaVGN6 HUM7TLPjQANeKC6UBeWnZULuFEiuVyOmCHOpQBJxzt 9JEFRlSBS6AIP5EgDlKNDiSOMzESa8qfJlrWNuMUr4TM4QD3HzhfSvWKUQUi8Im606DKGgBGAwIp0OO5 jcZm3sVPMvIJSJXv5PENd1YSVjPKngCCLgKKY9LkP2BzT7ZBZyPRe5QIY5BpXvBHG+YNjeULB2ROM1XO AxTaPnPgauQGnmLwN3TCazYQk1MxO0Tl7xYVQSAc7+[id number] ID Date Data Source [id number] 04/20/2020 12:13:55 PM EDT [facility] Name Value Range Interpretation Code Description Data Renetta rce(s) Supporting Document(s) Hemoglobin A1c/Hemoglobin.total in Blood 8.5 % 4.0-6.0 [facility] Glucose mean value [Mass/volume] in Blood Estimated fr om glycated hemoglobin 197 mg/dL <126 [facility] ID Date Data Source [id number] 04/20/2020 12:09:45 PM EDT [facility] Name Value Range Interpretation Code Description Data Renetta rce(s) Supporting Document(s) Glucose [Mass/volume] in Capillary blood by Glucometer 303 mg/dL 70- 140 [facility] ID Date Data Source [id number] 04/20/2020 11:24:00 AM EDT [facility] ([facility]) Name Value Range Interpretation Code Description Data Renetta rce(s) Supporting Document(s) Hemoglobin A1c/Hemoglobin.total in Blood 8.5 [facility] ([facility]) Procedure Social History Code Duration Value Status Description Data Source(s ) Smoking 04/30/2021 12:00:00 AM EDT Never Smoker completed Never S moker eCW1 ([facility]) Smoking 04/24/2021 12:00:00 AM EDT Never Smoker completed Never S moker eCW1 ([facility]) Smoking 03/06/2021 12:00:00 AM EDT Never Smoker completed Never S moker eCW1 ([facility]) Smoking 02/14/2021 12:00:00 AM EDT Never Smoker completed Never S moker eCW1 ([facility]) Smoking 02/14/2021 12:00:00 AM EDT Never Smoker completed Never S moker eCW1 ([facility]) Smoking 01/23/2021 12:00:00 AM EDT Never Smoked Cigarettes com pleted Never Smoked Cigarettes [facility] ([facility], ) Smoking 11/16/2020 12:00:00 AM EDT Patient has never smoked co mpleted Patient has never smoked [facility] ([facility]) Alcohol intake 11/01/2020 12:00:00 AM EDT Current drinker of al cohol (finding) completed Current drinker of alcohol (finding) [facility] Tobacco use and exposure 11/01/2020 12:00:00 AM EDT Current user co mpleted Current user [facility] Smoking 11/01/2020 12:00:00 AM EDT Never smoker completed Never s [facility] Smoking 09/20/2020 12:00:00 AM EDT Never Smoker completed Never S moker eCW1 ([facility]) Smoking 09/20/2020 12:00:00 AM EDT Never Smoker completed Never S moker eCW1 ([facility]) Smoking 09/20/2020 12:00:00 AM EDT Never Smoker completed Never S moker eCW1 ([facility]) Smoking 09/20/2020 12:00:00 AM EDT Never Smoker completed Never S moker eCW1 ([facility]) Smoking 09/20/2020 12:00:00 AM EDT Patient has never smoked co mpleted Patient has never smoked MEDENT ([facility]) Smoking 09/20/2020 12:00:00 AM EDT Never Smoker completed Never S moker eCW1 ([facility]) Alcohol intake 09/01/2020 12:00:00 AM EST Current drinker of al cohol (finding) completed Current drinker of alcohol (finding) [facility] Smoking 08/23/2020 12:00:00 AM EST Never Smoker completed Never S moker eCW1 ([facility]) Smoking 08/23/2020 12:00:00 AM EST Never Smoker completed Never S moker eCW1 ([facility]) Smoking 08/23/2020 12:00:00 AM EST Never Smoker completed Never S moker eCW1 ([facility]) Smoking 07/31/2020 12:00:00 AM EST Never Smoker completed Never S moker eCW1 ([facility]) Smoking 07/31/2020 12:00:00 AM EST Never Smoker completed Never S moker eCW1 ([facility]) Smoking 07/31/2020 12:00:00 AM EST Never Smoker completed Never S moker eCW1 ([facility]) Smoking 06/15/2020 12:00:00 AM EST Never Smoker completed Never S moker eCW1 ([facility]) Smoking 06/15/2020 12:00:00 AM EST Never Smoker completed Never S moker eCW1 ([facility]) Smoking 06/15/2020 12:00:00 AM EST Never Smoker completed Never S moker eCW1 ([facility]) Smoking 06/15/2020 12:00:00 AM EST Never Smoker completed Never S moker eCW1 ([facility]) Smoking 06/15/2020 12:00:00 AM EST Never Smoker completed Never S moker eCW1 ([facility]) Smoking 06/15/2020 12:00:00 AM EST Never Smoker completed Never S moker eCW1 ([facility]) Smoking 06/15/2020 12:00:00 AM EST Never Smoker completed Never S moker eCW1 ([facility]) Smoking 06/15/2020 12:00:00 AM EST Never Smoker completed Never S moker eCW1 ([facility]) Smoking 06/15/2020 12:00:00 AM EST Never Smoker completed Never S moker eCW1 ([facility]) Smoking 06/15/2020 12:00:00 AM EST Never Smoker completed Never S moker eCW1 ([facility]) Smoking 06/15/2020 12:00:00 AM EST Never Smoker completed Never S moker eCW1 ([facility]) Smoking 06/15/2020 12:00:00 AM EST Never Smoker completed Never S moker eCW1 ([facility]) Smoking 06/15/2020 12:00:00 AM EST Never Smoker completed Never S moker eCW1 ([facility]) Smoking 06/15/2020 12:00:00 AM EST Never Smoker completed Never S moker eCW1 ([facility]) Smoking 05/24/2020 12:00:00 AM EST Never Smoker completed Never S moker eCW1 ([facility]) Smoking 05/24/2020 12:00:00 AM EST Never Smoker completed Never S moker eCW1 ([facility]) Smoking 05/24/2020 12:00:00 AM EST Never Smoker completed Never S moker eCW1 ([facility]) Smoking 05/24/2020 12:00:00 AM EST Never Smoker completed Never S moker eCW1 ([facility]) Vital Signs ID Date Data Source UNK Name Value Range Interpretation Code Description Data Source(s) Body weight 249 [lb_av] 249 [lb_av] eCW1 ([facility]) Body weight 112.95 kg 112.95 kg eCW1 ([facility]) Body height 71 [in_i] 71 [in_i] eCW1 ([facility]) Body mass index (BMI) [Ratio] 34.72 kg/m2 34.72 kg/m2 W1 ([facility]) Heart rate 71 /min 71 /min eCW1 ([facility]) Respiratory rate 20 /min 20 /min eCW1 ([facility]) Body temperature 98.5 [degF] 98.5 [degF] eCW1 ( [facility]) Systolic blood pressure 126 mm[Hg] 126 mm[Hg] e CW1 ([facility]) Diastolic blood pressure 76 mm[Hg] 76 mm[Hg] eCW1 ([facility]) Body weight 255.12 [lb_av] 255.12 [lb_av] eCW1 ([facility]) Heart rate 78 /min 78 /min eCW1 ([facility]) Respiratory rate 18 /min 18 /min eCW1 ([facility]) Body temperature 98.3 [degF] 98.3 [degF] eCW1 ( [facility]) Systolic blood pressure 140 mm[Hg] 140 mm[Hg] e CW1 ([facility]) Diastolic blood pressure 90 mm[Hg] 90 mm[Hg] eCW1 ([facility]) Body weight 115.72 kg 115.72 kg eCW1 ([facility]) Body height 71 [in_i] 71 [in_i] eCW1 ([facility]) Body mass index (BMI) [Ratio] 35.58 kg/m2 35.58 kg/m2 eCW1 ([facility]) Body weight 257 [lb_av] 257 [lb_av] eCW1 ([facility]) Body weight 116.57 kg 116.57 kg eCW1 ([facility]) Body height 71 [in_i] 71 [in_i] eCW1 ([facility]) Body mass index (BMI) [Ratio] 35.84 kg/m2 35.84 kg/m2 W1 ([facility]) Heart rate 81 /min 81 /min eCW1 ([facility]) Respiratory rate 18 /min 18 /min eCW1 ([facility]) Body temperature 97.4 [degF] 97.4 [degF] eCW1 ( [facility]) Systolic blood pressure 150 mm[Hg] 150 mm[Hg] e CW1 ([facility]) Diastolic blood pressure 84 mm[Hg] 84 mm[Hg] eCW1 ([facility]) Oxygen saturation in Arterial blood by Pulse oximetry 96 % 96 % MEDENT ([facility] ) Systolic blood pressure 124 mm[Hg] 124 mm[Hg] M EDENT ([facility], ) Heart rate 78 /min 78 /min MEDENT ([facility] ) Diastolic blood pressure 78 mm[Hg] 78 mm[Hg] MEDENT ([facility] ) Body temperature 98.0 [degF] 98.0 [degF] [facility] 97.3 Body weight 117.482 kg 117.482 [facility] Body height 70 [in_i] 70 [in_i] [facility] ([facility]) 5'10" Body weight 259.00 [lb_av] 259.00 [lb_av] MEDEN T ([facility]) Body surface area Derived from formula 2.33 m2 2.33 m2 [facility] ([facility]) Body mass index (BMI) [Ratio] 37.2 kg/m2 37.2 k g/m2 [facility] ([facility]) Cedar body weight 166 [lb_av] 166 [lb_av] MEDEN T ([facility]) Oxygen saturation in Arterial blood by Pulse oximetry 96 % 96 % [facility] ([facility]) Heart rate 69 /min 69 /min [facility] ([facility]) Body height 70 [in_i] 70 [in_i] [facility] 5'10" [place] body weight 166 [lb_av] 166 [lb_av] MEDEN T ([facility]) Body mass index (BMI) [Ratio] 37.0 kg/m2 37.0 k g/m2 [facility] ([facility]) Body weight 258.00 [lb_av] 258.00 [lb_av] MEDEN T ([facility]) Body weight 117.029 kg 117.029 kg [facility]) Body surface area Derived from formula 2.33 m2 2.33 m2 [facility] ([facility]) Oxygen saturation in Arterial blood by Pulse oximetry 96 % 96 % [facility] Body height 70 [in_i] 70 [in_i] [facility] 5'10" Body weight 258.00 [lb_av] 258.00 [lb_av] MEDEN T ([facility]) Body mass index (BMI) [Ratio] 37.0 kg/m2 37.0 k g/m2 [facility] ([facility]) [place]edar body weight 166 [lb_av] 166 [lb_av] MEDEN T ([facility]) Body weight 117.029 kg 117.029 kg [facility] ([facility]) Body surface area Derived from formula 2.33 m2 2.33 m2 [facility] ([facility]) Systolic blood pressure 170 mm[Hg] 170 mm[Hg] [facility] ([facility]) Diastolic blood pressure 80 mm[Hg] 80 mm[Hg] [facility] ([facility]) Body height 70 [in_i] 70 [in_i] [facility] ([facility]) 5'10" Body weight 114.307 kg 114.307 kg [facility] ([facility]) Body surface area Derived from formula 2.30 m2 2.30 m2 [facility] ([facility]) Body weight 252.00 [lb_av] 252.00 [lb_av] MEDEN T ([facility]) Body mass index (BMI) [Ratio] 36.2 kg/m2 36.2 k g/m2 [facility] ([facility]) Cedar body weight 166 [lb_av] 166 [lb_av] MEDEN T ([facility]) Systolic blood pressure 174 mm[Hg] 174 mm[Hg] [facility] ([facility]) Diastolic blood pressure 86 mm[Hg] 86 mm[Hg] [facility] ([facility]) Heart rate 91 /min 91 /min [facility] Body weight 248.00 [lb_av] 248.00 [lb_av] MEDEN T ([facility]) Body height 71 [in_i] 71 [in_i] [facility] 5'11" Body mass index (BMI) [Ratio] 34.6 kg/m2 34.6 k g/m2 [facility]) Systolic blood pressure--sitting 148 mm[Hg] 148 mm[Hg] MEDENT ([facility]) Ra, large cuff Diastolic blood pressure--sitting 80 mm[Hg] 80 mm[Hg] MEDENT ([facility]) Ra, large cuff Body weight 247.00 [lb_av] 247.00 [lb_av] MEDEN T ([facility]) Body height 71 [in_i] 71 [in_i] MED[facility] ([facility]) 5'11" Body mass index (BMI) [Ratio] 34.4 kg/m2 34.4 k g/m2 MED[facility] ([facility]) Systolic blood pressure--sitting 144 mm[Hg] 144 mm[Hg] MED[facility] ([facility]) Ra, large cuff Diastolic blood pressure--sitting 82 mm[Hg] 82 mm[Hg] MED[facility] ([facility]) Ra, large cuff Body temperature 97.5 [degF] 97.5 [degF] MEDENT ([facility]) Body height 69.5 [in_i] 69.5 [in_i] MEDENT ([facility]) 5'9.50" Body weight 246.50 [lb_av] 246.50 [lb_av] MEDEN T ([facility]) Body mass index (BMI) [Ratio] 35.9 kg/m2 35.9 k g/m2 MED[facility] ([facility]) Systolic blood pressure 155 mm[Hg] 155 mm[Hg] e CW1 ([facility]) Body weight 247 [lb_av] 247 [lb_av] eCW1 ([facility]) Body height 71 [in_i] 71 [in_i] eCW1 ([facility]) Body mass index (BMI) [Ratio] 34.45 kg/m2 34.45 kg/m2 eCW1 ([facility]) Heart rate 78 /min 78 /min eCW1 ([facility]) Respiratory rate 18 /min 18 /min eCW1 ([facility]) Body temperature 98.1 [degF] 98.1 [degF] eCW1 ( [facility]) Diastolic blood pressure 73 mm[Hg] 73 mm[Hg] eCW1 ([facility]) Body weight 113.854 kg 113.854 kg MEDENT ([facility]) Body mass index (BMI) [Ratio] 36.0 kg/m2 36.0 k g/m2 MED[facility] ([facility]) Body surface area Derived from formula 2.30 m2 2.30 m2 MED[facility] ([facility]) Systolic blood pressure 154 mm[Hg] 154 mm[Hg] M EDENT ([facility]) Diastolic blood pressure 73 mm[Hg] 73 mm[Hg] [facility] ([facility]) Cedar body weight 166 [lb_av] 166 [lb_av] MEDEN T ([facility]) Body height 70 [in_i] 70 [in_i] MEDENT ([facility]) 5'10" Body weight 251.00 [lb_av] 251.00 [lb_av] MEDEN T ([facility]) Body weight 239 [lb_av] 239 [lb_av] eCW1 ([facility]) Body height 71 [in_i] 71 [in_i] eCW1 ([facility]) Body mass index (BMI) [Ratio] 33.33 kg/m2 33.33 kg/m2 W1 ([facility]) Heart rate 88 /min 88 /min eCW1 ([facility]) Respiratory rate 20 /min 20 /min eCW1 ([facility]) Body temperature 98.3 [degF] 98.3 [degF] eCW1 ( [facility]) Systolic blood pressure 145 mm[Hg] 145 mm[Hg] e CW1 ([facility]) Diastolic blood pressure 76 mm[Hg] 76 mm[Hg] eCW1 ([facility]) Body weight 231 [lb_av] 231 [lb_av] eCW1 ([facility]) Body height 71 [in_i] 71 [in_i] eCW1 ([facility]) Body mass index (BMI) [Ratio] 32.21 kg/m2 32.21 kg/m2 W1 ([facility]) Heart rate 78 /min 78 /min eCW1 ([facility]) Respiratory rate 20 /min 20 /min eCW1 ([facility]) Body temperature 97.9 [degF] 97.9 [degF] eCW1 ( [facility]) Systolic blood pressure 126 mm[Hg] 126 mm[Hg] e CW1 ([facility]) Diastolic blood pressure 66 mm[Hg] 66 mm[Hg] eCW1 ([facility]) Diastolic blood pressure 68 mm[Hg] 68 mm[Hg] eCW1 ([facility]) Respiratory rate 16 /min 16 /min eCW1 ([facility]) Systolic blood pressure 138 mm[Hg] 138 mm[Hg] e CW1 ([facility]) Body weight 263 [lb_av] 263 [lb_av] eCW1 ([facility]) Body height 71 [in_i] 71 [in_i] eCW1 ([facility]) Body mass index (BMI) [Ratio] 36.68 kg/m2 36.68 kg/m2 eCW1 ([facility]) Heart rate 69 /min 69 /min eCW1 ([facility]) Body temperature 96.8 [degF] 96.8 [degF] eCW1 ( [facility]) Body weight 261 [lb_av] 261 [lb_av] eCW1 ([facility]) Body height 71 [in_i] 71 [in_i] eCW1 ([facility]) Body mass index (BMI) [Ratio] 36.40 kg/m2 36.40 kg/m2 eCW1 ([facility]) Heart rate 67 /min 67 /min eCW1 ([facility]) Respiratory rate 16 /min 16 /min eCW1 ([facility]) Body temperature 97.1 [degF] 97.1 [degF] eCW1 ( [facility]) Systolic blood pressure 124 mm[Hg] 124 mm[Hg] e CW1 ([facility]) Diastolic blood pressure 78 mm[Hg] 78 mm[Hg] eCW1 ([facility]) Body weight 261.00 [lb_av] 261.00 [lb_av] MEDEN T ([facility]) Diastolic blood pressure--sitting 78 mm[Hg] 78 mm[Hg] MEDENT ([facility]) large cuff, Ra Body height 71 [in_i] 71 [in_i] [facility] ([facility]) 5'11" Body mass index (BMI) [Ratio] 36.4 kg/m2 36.4 k g/m2 MED[facility] ([facility]) Heart rate 61 /min 61 /min [facility] ([facility]) Systolic blood pressure--sitting 140 mm[Hg] 140 mm[Hg] MEDENT ([facility]) large cuff, Ra Systolic blood pressure 124 mm[Hg] 124 mm[Hg] M EDENT ([facility]) Diastolic blood pressure 68 mm[Hg] 68 mm[Hg] [facility] ([facility]) Heart rate 65 /min 65 /min [facility] ([facility]) Oxygen saturation in Arterial blood by Pulse oximetry 96 % 96 % [facility] ([facility]) Body temperature 97.1 [degF] 97.1 [degF] [facility] ([facility]) Body height 70 [in_i] 70 [in_i] [facility] 5'10" Body weight 263.00 [lb_av] 263.00 [lb_av] MEDEN T ([facility]) Body mass index (BMI) [Ratio] 37.7 kg/m2 37.7 k g/m2 [facility] ([facility]) Body weight 119.297 kg 119.297 kg [facility] ([facility]) ID Date Data Source [id number] 04/26/2021 10:12:55 AM [facility] Name Value Range Interpretation Code Description Data Source(s) TRANSFER FROM [facility] ID Date Data Source [id number] 11/01/2020 11:36:31 AM [facility] Name Value Range Interpretation Code Description Data Source(s) WEIGHT RECORDED 240 lb 240 lb [facility] ID Date Data Source [id number] 04/24/2020 10:52:15 AM EDT [facility] Name Value Range Interpretation Code Description Data Source(s) WEIGHT RECORDED 261.6 lb 261.6 lb [facility] Body height Measured 70.08 in 70.08 in [facility] Patient Treatment Plan of Care Planned Activity Planned Date Details Description Data Source (s) Levofloxacin 500 MG Oral Tablet 02/14/2021 12:00:00 AM EDT [facility] ([facility]) tramadol hydrochloride 50 MG Oral Tablet 02/14/2021 12:00:00 AM EDT eC ([facility]) Levofloxacin 500 MG Oral Tablet 02/14/2021 12:00:00 AM EDT eCW ([facility]) tramadol hydrochloride 50 MG Oral Tablet 02/14/2021 12:00:00 AM EDT eC ([facility]) FreeStyle Shabbir 2 Sensor 11/01/2020 12:00:00 AM [facility] 3 ML Insulin Lispro 100 UNT/ML Pen Injector 10/26/2020 12:00:00 AM [facility] Chlorthalidone 25 MG Oral Tablet 10/25/2020 12:00:00 AM [facility] Cholecalciferol 2000 UNT Oral Capsule 10/17/2020 12:00:00 AM [facility] 120 ACTUAT Albuterol 0.1 MG/ACTUAT / Ipr atropium [place] 0.02 MG/ACTUAT Metered Dose Inhaler [Combivent] 10/02/2020 12:00:00 AM [facility] BD Pen Needle Original U/F 29G X 12.7MM (Insulin Pen N eedle) 2020 12:00:00 AM [facility] Levothyroxine Sodium 0.125 MG Oral Tablet 2020 12:00:00 AM ED [facility] doxycycline hyclate 100 MG Oral Capsule 09/20/2020 12:00:00 AM EDT eC ([facility]) doxycycline hyclate 100 MG Oral Capsule 09/20/2020 12:00:00 AM EDT eC ([facility]) doxycycline hyclate 100 MG Oral Capsule 09/20/2020 12:00:00 AM EDT eCW1 ([facility]) doxycycline hyclate 100 MG Oral Capsule 09/20/2020 12:00:00 AM EDT eCW1 ([facility]) doxycycline hyclate 100 MG Oral Capsule 09/20/2020 12:00:00 AM EDT eCW1 ([facility]) Amlodipine 2.5 MG Oral Tablet 09/04/2020 12:00:00 AM [facility] Trulicity 3 MG/0.5ML Subcutaneous Solution Pen-injecto r (Dulaglutide) 09/01/2020 12:00:00 AM [facility] Dexamethasone 2 MG Oral Tablet 07/31/2020 12:00:00 AM EST eCW1 ([facility]) Dexamethasone 2 MG Oral Tablet 07/31/2020 12:00:00 AM EST eCW1 ([facility]) May Have - 07/31/2020 12:00:00 AM EST e CW1 ([facility]) May Have - 07/31/2020 12:00:00 AM EST e CW1 ([facility]) Dexamethasone 2 MG Oral Tablet 07/31/2020 12:00:00 AM EST eCW1 ([facility]) May Have - 07/31/2020 12:00:00 AM EST e CW1 ([facility]) 3 ML Insulin, Aspart, Human 100 UNT/ML Pen Injector [N ovoLog] 05/04/2020 12:00:00 AM [facility] 3 ML Insulin Lispro 100 UNT/ML Pen Injector 04/27/2020 12:00:00 AM [facility] Basaglar KwikPen 100 UNIT/ML Subcutaneou s Solution Pen-injector (insulin glargine) 04/24/2020 12:00:00 AM [facility] FreeStyle Shabbir 14 Day Sensor 04/20/2020 12:00:00 AM [facility] Cholecalciferol 4000 UNT Oral Capsule 04/20/2020 12:00:00 AM [facility] 0.5 ML dulaglutide 3 MG/ML Auto-Injector [Trulicity] 020 12:00:00 AM [facility] Jazzy Mendoza Lancets 33G 04/20/2020 12:00:00 AM [facility] atorvastatin 40 MG Oral Tablet 04/20/2020 12:00:00 AM [facility] 3 ML insulin detemir 100 UNT/ML Pen Injector [Levemir] 04/20/2020 12:00:00 AM [facility] 3 ML Insulin, Aspart, Human 100 UNT/ML Pen Injector [N ovoLog] 04/20/2020 12:00:00 AM [facility] Losartan Potassium 100 MG Oral Tablet 04/19/2020 12:00:00 AM [facility] Cholecalciferol 1000 UNT Oral Tablet 03/21/2020 12:00:00 AM [facility] FreeStyle Shabbir 14 Day Sensor 11/23/2019 12:00:00 AM [facility] Baclofen 10 MG Oral Tablet 11/18/2019 12:00:00 AM [facility] 0.5 ML dulaglutide 3 MG/ML Auto-Injector [Trulicity] 020 12:00:00 AM [facility] Losartan Potassium 50 MG Oral Tablet 10/01/2019 12:00:00 AM [facility] 3 ML insulin detemir 100 UNT/ML Pen Injector 07/28/2019 12:00:00 AM [facility] 3 ML Insulin, Aspart, Human 100 UNT/ML Pen Injector 07/28/19 20 12:00:00 AM [facility] 0.5 ML dulaglutide 3 MG/ML Auto-Injector 07/28/2019 12:00:00 AM [facility] clopidogrel 75 MG Oral Tablet 08/25/2017 12:00:00 AM [facility] JAZZY MENDOZA LANCETS 33G MISC 06/17/2017 12:00:00 AM [facility] FreeStyle Shabbir 2 Sensor Ups [facility] tramadol hydrochloride 50 MG Oral Tablet [facility] Rosuvastatin calcium 20 MG Oral Tablet [facility] carvedilol 6.25 MG Oral Tablet [facility]
[2021-05-26 17:40] LABS: CALCIUM LEVEL 8.9 MG/DL (8.5-10.1); CREATININE FOR GFR 1.33 MG/DL (0.70-1.30); GLOMERULAR FILTRATION RATE 58.6 (>56); POTASSIUM SERUM 4.4 MEQ/L (3.5-5.1)
[2021-05-26] MEDS ORDERED: ISOVUE-370 76% 100ML VIAL As Ordered ONE (17:45)
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
[2021-05-26 22:10] VITALS: BP 148/85
--- NOTE | 2021-05-27 07:16 | ED PDOC ---
Post-Departure Follow-Up radiology report faxed to Jacquelyn Roblero Sarah MD May 27, 2021 07:16
== END 2021-05-26 22:33 | disposition home or self-care (01) ==
LOC: M ED 16:15
DX: S30.0XXA Contusion of lower back and pelvis, initial encounter (principal); S60.221A Contusion of right hand, initial encounter; V86.55XA Driver of 3- or 4- wheeled all-terrain vehicle (ATV) injured in nontraffic accident, initial encounter; I25.10 Atherosclerotic heart disease of native coronary artery without angina pectoris; E11.9 Type 2 diabetes mellitus without complications; G47.33 Obstructive sleep apnea (adult) (pediatric); E66.9 Obesity, unspecified; I71.2 Thoracic aortic aneurysm, without rupture; F41.9 Anxiety disorder, unspecified; F17.220 Nicotine dependence, chewing tobacco, uncomplicated; Z88.1 Allergy status to other antibiotic agents; Z88.8 Allergy status to other drugs, medicaments and biological substances; Z79.4 Long term (current) use of insulin; Z79.899 Other long term (current) drug therapy
CPT/HCPCS: 70450; 71260; 72125; 72128; 72131; 73130; 73502; 74177; 80048; 81001; 85025; 93041; 94760; 96374; 99284; J2270; Q9967

== ENCOUNTER → 2021-06-26 | Outpatient (REF) | payer OTHER ==
[2021-06-26 22:39] LABS: RSV AMPLIFICATION NEGATIVE (NEGATIVE)
== END ==
LOC: M LAB REF 21:14
PROVIDERS: ATTEND Physician Assistant Medical
DX: Z11.9 Encounter for screening for infectious and parasitic diseases, unspecified (principal)

== ENCOUNTER 2021-06-27 12:25 | Outpatient (CLI) | payer OTHER ==
[~2021-06-27] VITALS: Ht 180.3 cm; Wt 108.9 kg
[~2021-06-27 12:25] MED LIST changes: +ALBUTEROL 90 MCG/ACT 8GM HFA INHALER INH PRN; +ALBUTEROL SULFATE 2.5 MG/0.5 ML INH NEB SOLN INH PRN; +EPINEPHrine INJ 1 MG/ML 1ML AMP IM PRN; +NS 1,000 ML IV SCH; +diphenhydrAMINE 50MG/ML VIAL (J1200) IV PRN; +methylPREDNISolone 125MG 2ML VIAL IV PRN
[2021-06-27 12:47] VITALS: BP 157/74
[2021-06-27] MEDS ORDERED: CASIRIVIMAB/IMDEVIMAB 1,200 MG in NS 250 ML IV ONE (13:00)
[2021-06-27 13:17] VITALS: BP 150/71
[2021-06-27 13:47] VITALS: BP 154/72
[2021-06-27 14:47] VITALS: BP 143/70
== END 2021-06-27 14:47 | disposition home or self-care (01) ==
LOC: M OPCLI4PR 12:25
PROVIDERS: ATTEND Nurse Practitioner Family
DX: U07.1 COVID-19 (principal); Z88.1 Allergy status to other antibiotic agents; Z88.8 Allergy status to other drugs, medicaments and biological substances

== ENCOUNTER 2021-08-23 03:47 | Emergency (ER) | payer OTHER ==
[~2021-08-23] VITALS: Ht 177.8 cm; Wt 110.6 kg
[~2021-08-23 03:47] MED LIST changes: -ALBUTEROL 90 MCG/ACT 8GM HFA INHALER INH PRN; -ALBUTEROL SULFATE 2.5 MG/0.5 ML INH NEB SOLN INH PRN; -EPINEPHrine INJ 1 MG/ML 1ML AMP IM PRN; +LOSA100T45 PO; -LOSA100T50 PO; +LOSA50TA28 PO; -LOSA50TA88 PO; -NS 1,000 ML IV SCH; +OMEP-173 PO; -OMEP-218 PO; -diphenhydrAMINE 50MG/ML VIAL (J1200) IV PRN; -methylPREDNISolone 125MG 2ML VIAL IV PRN
[2021-08-23] MEDS ORDERED: NS 1,000 ML IV ONE ×3 (04:10→06:25)
[2021-08-23] MEDS ORDERED: ONDANSETRON 4MG/2ML VIAL IV ONE (04:10)
[2021-08-23 04:34] LABS: BASO % 0.2 % (0.0-1.0); EOS # 0.2 10^3/uL (0.0-0.5); EOS % 1.9 % (0.0-3.0); HEMATOCRIT 49.3 % (42.0-52.0); HEMOGLOBIN 17.5 g/dl (13.5-17.5); LYMPH # 1.6 10^3/uL (1.5-5.0); LYMPH % 14.1 % (24.0-44.0); MEAN CORPUSCULAR HEMOGLOBIN 30.2 pg (27.0-33.0); MEAN CORPUSCULAR HGB CONC 35.5 g/dl (32.0-36.5); MONO # 0.8 10^3/uL (0.0-0.8); MONO % 6.7 % (2.0-8.0); NEUTROPHILS # 8.7 10^3/uL (1.5-8.5); NEUTROPHILS % 76.7 % (36.0-66.0); PLATELET COUNT, AUTOMATED 199 10^3/uL (150-450); WHITE BLOOD COUNT 11.3 10^3/uL (4.0-10.0)
[2021-08-23 05:00] VITALS: BP 154/73
[2021-08-23 05:04] LABS: ALBUMIN 4.1 GM/DL (3.2-5.2); ALT/SGPT 28 U/L (12-78); BILIRUBIN,TOTAL 1.5 MG/DL (0.2-1.0); BLOOD UREA NITROGEN 23 MG/DL (7-18); CALCIUM LEVEL 8.9 MG/DL (8.5-10.1); CARBON DIOXIDE LEVEL 24 MEQ/L (21-32); CHLORIDE LEVEL 106 MEQ/L (98-107); GLOMERULAR FILTRATION RATE > 60.0 (>56); GLUCOSE, FASTING 260 MG/DL (70-100); POTASSIUM SERUM 3.6 MEQ/L (3.5-5.1); SODIUM LEVEL 140 MEQ/L (136-145)
[2021-08-23 05:56] LABS: RSV AMPLIFICATION NEGATIVE (NEGATIVE)
[2021-08-23] MEDS ORDERED: KETO10TAB PO (07:35)
[2021-08-23] MEDS ORDERED: ONDA4TAB6 PO (07:35)
[2021-08-23] MEDS ORDERED: METOCLOPRAMIDE INJ 10MG/2ML VIAL (J2765 PER 1) IV ONE (07:40)
[2021-08-23] MEDS ORDERED: traMADol 50 MG TAB PO ONE (07:40)
== END 2021-08-23 08:17 | disposition home or self-care (01) ==
LOC: M ED 03:47
DX: A08.4 Viral intestinal infection, unspecified (principal); R10.9 Unspecified abdominal pain; E11.9 Type 2 diabetes mellitus without complications; I10 Essential (primary) hypertension; E78.5 Hyperlipidemia, unspecified; E03.9 Hypothyroidism, unspecified; F17.210 Nicotine dependence, cigarettes, uncomplicated; Z95.5 Presence of coronary angioplasty implant and graft; Z88.8 Allergy status to other drugs, medicaments and biological substances; Z88.0 Allergy status to penicillin; Z88.1 Allergy status to other antibiotic agents; Z91.018 Allergy to other foods; Z91.048 Other nonmedicinal substance allergy status; Z79.899 Other long term (current) drug therapy; Z79.4 Long term (current) use of insulin; Z79.82 Long term (current) use of aspirin
CPT/HCPCS: 80053; 83605; 85025; 87505; 87631; 96361; 96374; 96375; 99284; J2405; J2765

== ENCOUNTER → 2021-09-27 | Outpatient (CLI) | payer OTHER ==
[~2021-09-27] MED LIST changes: -D31000TA2 PO; +KETO10TAB PO; +VITA100093 PO
[2021-09-27 17:22] LABS: COMPLEMENT C3 123 MG/DL (90-180); COMPLEMENT C4 27 MG/DL (10-40)
== END ==
LOC: M WUC 15:41
PROVIDERS: ATTEND Allergy & Immunology Allergy
DX: T78.2XXA Anaphylactic shock, unspecified, initial encounter (principal); T78.3XXA Angioneurotic edema, initial encounter

== ENCOUNTER 2021-10-14 15:11 | Observation (INO) | payer OTHER ==
[~2021-10-14] VITALS: Ht 177.8 cm; Wt 113.8 kg
[~2021-10-14 15:11] MED LIST changes: -TRUL0.5I IM; +TRUL0.5I SC
[2021-10-14 16:04] LABS: BASO # 0.1 10^3/uL (0.0-0.2); BASO % 0.9 % (0.0-1.0); EOS # 0.3 10^3/uL (0.0-0.5); EOS % 4.2 % (0.0-3.0); HEMATOCRIT 41.1 % (42.0-52.0); HEMOGLOBIN 14.8 g/dl (13.5-17.5); LYMPH # 1.8 10^3/uL (1.5-5.0); LYMPH % 27.4 % (24.0-44.0); MEAN CORPUSCULAR HEMOGLOBIN 30.8 pg (27.0-33.0); MEAN CORPUSCULAR VOLUME 85.6 fl (80.0-96.0); MONO # 0.4 10^3/uL (0.0-0.8); MONO % 6.6 % (2.0-8.0); NEUTROPHILS # 3.9 10^3/uL (1.5-8.5); NEUTROPHILS % 60.4 % (36.0-66.0); PLATELET COUNT, AUTOMATED 168 10^3/uL (150-450); WHITE BLOOD COUNT 6.4 10^3/uL (4.0-10.0)
[2021-10-14] MEDS ORDERED: ISOVUE-370 76% 100ML VIAL As Ordered ONE (16:16)
[2021-10-14 16:26] LABS: CK-MB VALUE MASS 1.8 NG/ML (<3.6); MB/CK RELATIVE INDEX 1.1 (< OR =4)
[2021-10-14 16:32] LABS: ALBUMIN 3.5 GM/DL (3.2-5.2); ALT/SGPT 28 U/L (12-78); BILIRUBIN,DIRECT 0.2 MG/DL (0.0-0.2); BILIRUBIN,TOTAL 0.6 MG/DL (0.2-1.0); BLOOD UREA NITROGEN 13 MG/DL (7-18); CALCIUM LEVEL 8.2 MG/DL (8.8-10.2); CARBON DIOXIDE LEVEL 25 MEQ/L (21-32); CHLORIDE LEVEL 107 MEQ/L (98-107); CREATININE FOR GFR 1.17 MG/DL (0.70-1.30); FREE T4 0.78 NG/DL (0.76-1.46); GLOMERULAR FILTRATION RATE > 60.0 (>49); GLUCOSE, FASTING 358 MG/DL (70-100); LIPASE 227 U/L (73-393); POTASSIUM SERUM 4.1 MEQ/L (3.5-5.1); SODIUM LEVEL 140 MEQ/L (136-145); TOTAL PROTEIN 6.2 GM/DL (6.4-8.2)
[2021-10-14 16:46] LABS: INR 0.97; PROTHROMBIN TIME 13.3 SECONDS (12.7-14.5)
[2021-10-14 17:56] LABS: CK-MB VALUE MASS 2.1 NG/ML (<3.6); MB/CK RELATIVE INDEX 1.42 (< OR =4)
[2021-10-14] MEDS ORDERED: FEXO-112 PO (18:23)
[2021-10-14] MEDS ORDERED: ATOR80TA59 PO (18:23)
[2021-10-14] MEDS ORDERED: DILT120C31 PO (18:23)
[2021-10-14] MEDS ORDERED: INSU100I36 SC (18:23)
[2021-10-14] MEDS ORDERED: MAALOX 30 ML SUSP *UDC PO PRN (18:40)
[2021-10-14] MEDS ORDERED: DEXTROSE 50% 50 ML SYRINGE IV PRN (18:40)
[2021-10-14] MEDS ORDERED: GLUCOSE 4GM CHEW TABLET PO PRN (18:40)
[2021-10-14] MEDS ORDERED: MOM 30ML SUSPENSION UDC PO PRN (18:40)
[2021-10-14] MEDS ORDERED: GLUCAGON INJ 1MG VIAL SC PRN (18:40)
[2021-10-14] MEDS ORDERED: FLUT15.820 NARES (18:53)
[2021-10-14] MEDS ORDERED: ALBU8.5H INH (18:53)
[2021-10-14] MEDS ORDERED: HOME MED LIST COMPLETE! XX SCH (18:55)
[2021-10-14] MEDS: HumaLOG INSULIN (NovoLOG) PER UNIT SC SCH ×2 (19:18→23:30)
[2021-10-14] MEDS ORDERED: NITROGLYCERIN 0.4 MG SUBL TABLET SL PRN (19:30)
[2021-10-14] MEDS ORDERED: ALBUTEROL 90 MCG/ACT 8GM HFA INHALER INH PRN (19:30)
[2021-10-14] MEDS ORDERED: guaiFENesin DM LIQ 10ML UD PO PRN (19:30)
[2021-10-14] MEDS: LEVEMIR (INSULIN DETEMIR) 1 UNITS/0.01ML SC SCH (23:30)
[2021-10-14 23:37] VITALS: BP 139/81
[2021-10-15] MEDS: PANTOPRAZOLE 40MG TAB (PROTONIX) PO SCH ×2 (00:30→21:02)
[2021-10-15] MEDS: PARoxetine 20MG TABLET PO SCH ×2 (00:31→21:02)
[2021-10-15] MEDS: ATORVASTATIN 20 MG TAB PO SCH ×2 (00:32→21:01)
[2021-10-15] MEDS: CETIRIZINE (ZyrTEC) 10 MG TAB PO SCH ×2 (00:32→21:02)
[2021-10-15] MEDS: DOXYCYCLINE HYCLATE 100MG TABLET PO SCH ×3 (00:32→21:02)
[2021-10-15] MEDS: ASPIRIN 81 MG CHEW TABLET PO SCH ×2 (00:32→21:01)
[2021-10-15] MEDS: CO-ENZYME Q10 50 MG CAP PO SCH ×3 (01:51→21:01)
[2021-10-15 04:59] VITALS: BP 146/67
[2021-10-15 05:58] LABS: HEMATOCRIT 38.7 % (42.0-52.0); HEMOGLOBIN 14.2 g/dl (13.5-17.5); MEAN CORPUSCULAR HEMOGLOBIN 31.4 pg (27.0-33.0); MEAN CORPUSCULAR VOLUME 85.6 fl (80.0-96.0); PLATELET COUNT, AUTOMATED 142 10^3/uL (150-450); RED BLOOD COUNT 4.52 10^6/uL (4.30-6.10); WHITE BLOOD COUNT 5.6 10^3/uL (4.0-10.0)
[2021-10-15 06:02] LABS: MEAN CORPUSCULAR HGB CONC 36.5 g/dl (32.0-36.5)
[2021-10-15 06:22] LABS: HEMOGLOBIN A1c 8.2 %
[2021-10-15 06:26] LABS: BLOOD UREA NITROGEN 14 MG/DL (7-18); CALCIUM LEVEL 7.8 MG/DL (8.8-10.2); CARBON DIOXIDE LEVEL 29 MEQ/L (21-32); CHLORIDE LEVEL 108 MEQ/L (98-107); CHOLESTEROL LEVEL 110 MG/DL (<200); CHOLESTEROL RISK RATIO 3.437 (<5); CK-MB VALUE MASS 2.2 NG/ML (<3.6); CREATININE FOR GFR 0.86 MG/DL (0.70-1.30); GLOMERULAR FILTRATION RATE > 60.0 (>49); GLUCOSE, FASTING 176 MG/DL (70-100); HDL CHOLESTEROL 32 MG/DL (>40); LDL CHOLESTEROL 56 MG/DL (<100); MB/CK RELATIVE INDEX 1.91 (< OR =4); NON-HDL-C 78 MG/DL; POTASSIUM SERUM 3.6 MEQ/L (3.5-5.1); SODIUM LEVEL 142 MEQ/L (136-145); TRIGLYCERIDES LEVEL 112 MG/DL (<150)
[2021-10-15] MEDS: LEVOTHYROXINE 125MCG TABLET (0.125MG) PO SCH (06:33)
[2021-10-15] MEDS: HumaLOG INSULIN (NovoLOG) PER UNIT SC SCH ×4 (07:30→21:02)
[2021-10-15] MEDS: LEVEMIR (INSULIN DETEMIR) 1 UNITS/0.01ML SC SCH ×2 (08:33→21:03)
[2021-10-15] MEDS: FLUTICASONE PROP 0.05% NASAL SPRAY 16 GM (FLONASE) NARES SCH (08:40)
[2021-10-15] MEDS ORDERED: KETOROLAC 30 MG/ML 1ML VIAL IV ONE (09:20)
[2021-10-15 14:00] VITALS: BP 138/70
[2021-10-15 18:00] VITALS: BP 139/71
[2021-10-15 22:00] VITALS: BP 154/74
[2021-10-16] MEDS: LEVOTHYROXINE 125MCG TABLET (0.125MG) PO SCH (05:41)
[2021-10-16 06:30] LABS: HEMATOCRIT 39.5 % (42.0-52.0); HEMOGLOBIN 14.4 g/dl (13.5-17.5); MEAN CORPUSCULAR HEMOGLOBIN 31.3 pg (27.0-33.0); MEAN CORPUSCULAR HGB CONC 36.5 g/dl (32.0-36.5); MEAN CORPUSCULAR VOLUME 85.9 fl (80.0-96.0); PLATELET COUNT, AUTOMATED 154 10^3/uL (150-450)
[2021-10-16 07:06] LABS: BLOOD UREA NITROGEN 13 MG/DL (7-18); CALCIUM LEVEL 8.4 MG/DL (8.8-10.2); CARBON DIOXIDE LEVEL 29 MEQ/L (21-32); CHLORIDE LEVEL 110 MEQ/L (98-107); CREATININE FOR GFR 0.84 MG/DL (0.70-1.30); GLOMERULAR FILTRATION RATE > 60.0 (>49); GLUCOSE, FASTING 158 MG/DL (70-100); POTASSIUM SERUM 3.8 MEQ/L (3.5-5.1); SODIUM LEVEL 143 MEQ/L (136-145)
[2021-10-16] MEDS: CO-ENZYME Q10 50 MG CAP PO SCH ×2 (08:27→22:01)
[2021-10-16] MEDS: DOXYCYCLINE HYCLATE 100MG TABLET PO SCH ×2 (08:28→22:02)
[2021-10-16] MEDS: LEVEMIR (INSULIN DETEMIR) 1 UNITS/0.01ML SC SCH ×2 (08:29→22:02)
[2021-10-16] MEDS: HumaLOG INSULIN (NovoLOG) PER UNIT SC SCH ×4 (08:30→21:00)
[2021-10-16] MEDS: FLUTICASONE PROP 0.05% NASAL SPRAY 16 GM (FLONASE) NARES SCH (08:33)
[2021-10-16 14:00] VITALS: BP 168/89
[2021-10-16] MEDS: ACETAMINOPHEN TAB 650MG DOSE (2X325MG) PO PRN (15:30)
[2021-10-16] MEDS ORDERED: PROHANCE 279.3MG/ML 5ML VIAL As Ordered ONE (16:45)
[2021-10-16] MEDS ORDERED: PROHANCE 279.3MG/ML 15ML VIAL As Ordered ONE (16:46)
[2021-10-16] MEDS: PARoxetine 20MG TABLET PO SCH (22:01)
[2021-10-16] MEDS: ATORVASTATIN 20 MG TAB PO SCH (22:01)
[2021-10-16] MEDS: ASPIRIN 81 MG CHEW TABLET PO SCH (22:02)
[2021-10-16] MEDS: CETIRIZINE (ZyrTEC) 10 MG TAB PO SCH (22:02)
[2021-10-16] MEDS: PANTOPRAZOLE 40MG TAB (PROTONIX) PO SCH (22:02)
[2021-10-17 02:26] VITALS: BP 151/73
[2021-10-17] MEDS: LEVOTHYROXINE 125MCG TABLET (0.125MG) PO SCH (05:38)
[2021-10-17 06:00] VITALS: BP 149/64
[2021-10-17 07:44] LABS: BASO # 0.1 10^3/uL (0.0-0.2); BASO % 1.2 % (0.0-1.0); EOS # 0.4 10^3/uL (0.0-0.5); EOS % 5.8 % (0.0-3.0); HEMATOCRIT 39.9 % (42.0-52.0); HEMOGLOBIN 14.3 g/dl (13.5-17.5); LYMPH # 2.8 10^3/uL (1.5-5.0); LYMPH % 37.6 % (24.0-44.0); MEAN CORPUSCULAR HEMOGLOBIN 30.6 pg (27.0-33.0); MEAN CORPUSCULAR HGB CONC 35.8 g/dl (32.0-36.5); MEAN CORPUSCULAR VOLUME 85.3 fl (80.0-96.0); MONO # 0.6 10^3/uL (0.0-0.8); MONO % 7.9 % (2.0-8.0); NEUTROPHILS # 3.4 10^3/uL (1.5-8.5); NEUTROPHILS % 46.4 % (36.0-66.0); PLATELET COUNT, AUTOMATED 159 10^3/uL (150-450); RED BLOOD COUNT 4.68 10^6/uL (4.30-6.10); WHITE BLOOD COUNT 7.4 10^3/uL (4.0-10.0)
[2021-10-17 08:18] LABS: ALBUMIN 3.3 GM/DL (3.2-5.2); ALT/SGPT 34 U/L (12-78); BILIRUBIN,TOTAL 0.6 MG/DL (0.2-1.0); BLOOD UREA NITROGEN 12 MG/DL (7-18); CALCIUM LEVEL 8.8 MG/DL (8.8-10.2); CARBON DIOXIDE LEVEL 29 MEQ/L (21-32); CHLORIDE LEVEL 106 MEQ/L (98-107); CREATININE FOR GFR 0.99 MG/DL (0.70-1.30); GLOMERULAR FILTRATION RATE > 60.0 (>49); GLUCOSE, FASTING 223 MG/DL (70-100); SODIUM LEVEL 141 MEQ/L (136-145); TOTAL PROTEIN 5.9 GM/DL (6.4-8.2)
[2021-10-17] MEDS: DOXYCYCLINE HYCLATE 100MG TABLET PO SCH ×2 (09:03→21:32)
[2021-10-17] MEDS: FLUTICASONE PROP 0.05% NASAL SPRAY 16 GM (FLONASE) NARES SCH (09:04)
[2021-10-17] MEDS: HumaLOG INSULIN (NovoLOG) PER UNIT SC SCH ×4 (09:04→21:47)
[2021-10-17] MEDS: LEVEMIR (INSULIN DETEMIR) 1 UNITS/0.01ML SC SCH ×2 (09:04→21:48)
[2021-10-17] MEDS: CO-ENZYME Q10 50 MG CAP PO SCH ×2 (09:09→21:30)
[2021-10-17 14:00] VITALS: BP 150/85
[2021-10-17 18:52] VITALS: BP 152/83
[2021-10-17] MEDS ORDERED: TOPIRAMATE (TopAMAX) 25 MG TAB PO SCH (21:00)
[2021-10-17] MEDS: ASPIRIN 81 MG CHEW TABLET PO SCH (21:30)
[2021-10-17] MEDS: ATORVASTATIN 20 MG TAB PO SCH (21:30)
[2021-10-17] MEDS: PARoxetine 20MG TABLET PO SCH (21:31)
[2021-10-17] MEDS: CETIRIZINE (ZyrTEC) 10 MG TAB PO SCH (21:32)
[2021-10-17] MEDS: PANTOPRAZOLE 40MG TAB (PROTONIX) PO SCH (21:32)
[2021-10-18 06:04] VITALS: BP 145/70
[2021-10-18] MEDS: LEVOTHYROXINE 125MCG TABLET (0.125MG) PO SCH (06:06)
[2021-10-18 06:32] LABS: BASO # 0.1 10^3/uL (0.0-0.2); BASO % 1.2 % (0.0-1.0); EOS # 0.4 10^3/uL (0.0-0.5); EOS % 5.4 % (0.0-3.0); HEMATOCRIT 42.3 % (42.0-52.0); HEMOGLOBIN 15.1 g/dl (13.5-17.5); LYMPH # 2.8 10^3/uL (1.5-5.0); LYMPH % 37.7 % (24.0-44.0); MEAN CORPUSCULAR HEMOGLOBIN 30.7 pg (27.0-33.0); MEAN CORPUSCULAR HGB CONC 35.7 g/dl (32.0-36.5); MONO # 0.6 10^3/uL (0.0-0.8); MONO % 8.5 % (2.0-8.0); NEUTROPHILS # 3.5 10^3/uL (1.5-8.5); NEUTROPHILS % 46.4 % (36.0-66.0); PLATELET COUNT, AUTOMATED 172 10^3/uL (150-450); RED BLOOD COUNT 4.92 10^6/uL (4.30-6.10); WHITE BLOOD COUNT 7.5 10^3/uL (4.0-10.0)
[2021-10-18 06:55] LABS: BLOOD UREA NITROGEN 16 MG/DL (7-18); CALCIUM LEVEL 8.7 MG/DL (8.8-10.2); CARBON DIOXIDE LEVEL 28 MEQ/L (21-32); CHLORIDE LEVEL 105 MEQ/L (98-107); CREATININE FOR GFR 0.93 MG/DL (0.70-1.30); GLOMERULAR FILTRATION RATE > 60.0 (>49); GLUCOSE, FASTING 224 MG/DL (70-100); MAGNESIUM LEVEL 2.1 MG/DL (1.8-2.4); POTASSIUM SERUM 3.9 MEQ/L (3.5-5.1); SODIUM LEVEL 139 MEQ/L (136-145)
[2021-10-18] MEDS: HumaLOG INSULIN (NovoLOG) PER UNIT SC SCH ×2 (08:57→12:15)
[2021-10-18] MEDS: LEVEMIR (INSULIN DETEMIR) 1 UNITS/0.01ML SC SCH (08:57)
[2021-10-18 08:58] VITALS: BP 153/85
[2021-10-18] MEDS: CO-ENZYME Q10 50 MG CAP PO SCH (08:59)
[2021-10-18] MEDS: DOXYCYCLINE HYCLATE 100MG TABLET PO SCH (08:59)
[2021-10-18] MEDS: FLUTICASONE PROP 0.05% NASAL SPRAY 16 GM (FLONASE) NARES SCH (08:59)
[2021-10-18] MEDS: ACETAMINOPHEN TAB 650MG DOSE (2X325MG) PO PRN (09:01)
[2021-10-18] MEDS ORDERED: FIORICET TAB PO ONE (10:25)
[2021-10-18] MEDS ORDERED: HumuLIN R (REGULAR) INSULIN (NovoLIN R) **100U/ML** PER UNIT SC STA ×2 (12:36→14:22)
[2021-10-18] MEDS ORDERED: DOXY100T PO (12:47)
[2021-10-18] MEDS ORDERED: INSU100I36 SC (12:47)
[2021-10-18] MEDS ORDERED: TOPA1TAB PO (12:47)
[2021-10-18 14:00] VITALS: BP 152/78
[2021-10-18] MEDS ORDERED: HumuLIN R (REGULAR) INSULIN (NovoLIN R) **100U/ML** PER UNIT IV STA (14:05)
== END 2021-10-18 16:09 | disposition home or self-care (01) ==
LOC: M ED 15:11 → M ED INP 15:12 → ENRESERV 21:41 → M MSPAV 23:48
PROVIDERS: ADMIT Family Medicine; ATTEND Family Medicine
DX: R20.2 Paresthesia of skin (principal); J01.90 Acute sinusitis, unspecified; G43.909 Migraine, unspecified, not intractable, without status migrainosus; M47.812 Spondylosis without myelopathy or radiculopathy, cervical region; J45.909 Unspecified asthma, uncomplicated; E11.9 Type 2 diabetes mellitus without complications; I25.10 Atherosclerotic heart disease of native coronary artery without angina pectoris; Z98.61 Coronary angioplasty status; I10 Essential (primary) hypertension; K21.9 Gastro-esophageal reflux disease without esophagitis; E03.9 Hypothyroidism, unspecified; E78.5 Hyperlipidemia, unspecified; F41.9 Anxiety disorder, unspecified; F32.9 Major depressive disorder, single episode, unspecified; Z79.82 Long term (current) use of aspirin; Z79.4 Long term (current) use of insulin; Z79.899 Other long term (current) drug therapy; Z91.018 Allergy to other foods; Z88.1 Allergy status to other antibiotic agents; Z88.2 Allergy status to sulfonamides; Z88.8 Allergy status to other drugs, medicaments and biological substances
CPT/HCPCS: 36415; 70450; 70496; 70498; 70551; 71045; 71552; 72125; 80047; 80048; 80053; 80061; 80076; 82550; 82553; 83036; 83690; 83735; 84439; 84443; 85025; 85027; 85610; 85730; 87798; 93005; 93041; 93306; 94760; 96374; 97116; 97161; 99285; A9576; J1815; J1885; Q9967

== ENCOUNTER 2021-11-26 20:23 | Emergency (ER) | payer OTHER ==
[~2021-11-26] VITALS: Ht 177.8 cm; Wt 108.6 kg
[~2021-11-26 20:23] MED LIST changes: +ATOR80TA59 PO; +DILT120C31 PO; +FEXO-112 PO; +FLUT15.820 NARES; +INSU100I36 SC; +TOPA1TAB PO
[2021-11-26] MEDS ORDERED: NITROGLYCERIN 0.4 MG SUBL TABLET SL PRN (21:10)
[2021-11-26 21:29] LABS: BASO % 0.4 % (0.0-1.0); EOS # 0.1 10^3/uL (0.0-0.5); EOS % 1.7 % (0.0-3.0); HEMATOCRIT 42.8 % (42.0-52.0); HEMOGLOBIN 15.2 g/dl (13.5-17.5); LYMPH # 2.2 10^3/uL (1.5-5.0); LYMPH % 30.4 % (24.0-44.0); MEAN CORPUSCULAR HEMOGLOBIN 30.6 pg (27.0-33.0); MEAN CORPUSCULAR HGB CONC 35.5 g/dl (32.0-36.5); MEAN CORPUSCULAR VOLUME 86.1 fl (80.0-96.0); MONO # 0.6 10^3/uL (0.0-0.8); NEUTROPHILS # 4.2 10^3/uL (1.5-8.5); NEUTROPHILS % 58.9 % (36.0-66.0); PLATELET COUNT, AUTOMATED 167 10^3/uL (150-450); RED BLOOD COUNT 4.97 10^6/uL (4.30-6.10); WHITE BLOOD COUNT 7.2 10^3/uL (4.0-10.0)
[2021-11-26 21:41] LABS: INR 1.02; PROTHROMBIN TIME 13.8 SECONDS (12.7-14.5)
[2021-11-26 22:04] LABS: CK-MB VALUE MASS 3.3 NG/ML (<3.6); MB/CK RELATIVE INDEX 1.53 (< OR =4)
[2021-11-26 22:10] LABS: ALBUMIN 3.7 GM/DL (3.2-5.2); ALT/SGPT 26 U/L (12-78); BILIRUBIN,DIRECT 0.2 MG/DL (0.0-0.2); BILIRUBIN,TOTAL 0.8 MG/DL (0.2-1.0); BLOOD UREA NITROGEN 16 MG/DL (7-18); CALCIUM LEVEL 8.5 MG/DL (8.8-10.2); CARBON DIOXIDE LEVEL 29 MEQ/L (21-32); CHLORIDE LEVEL 111 MEQ/L (98-107); CREATININE FOR GFR 0.92 MG/DL (0.70-1.30); FREE T4 0.72 NG/DL (0.76-1.46); GLOMERULAR FILTRATION RATE > 60.0 (>49); GLUCOSE, FASTING 102 MG/DL (70-100); LIPASE 121 U/L (73-393); POTASSIUM SERUM 3.7 MEQ/L (3.5-5.1); SODIUM LEVEL 144 MEQ/L (136-145); TOTAL PROTEIN 6.5 GM/DL (6.4-8.2)
[2021-11-26 22:46] LABS: D-DIMER QUANT < 270 ng/ml (<500)
[2021-11-27 01:55] VITALS: BP 108/52
== END 2021-11-27 02:04 | disposition home or self-care (01) ==
LOC: M ED 20:23 → EDBD 20:23 → M ED 11-27 02:04
DX: R07.9 Chest pain, unspecified (principal); I11.9 Hypertensive heart disease without heart failure; E11.9 Type 2 diabetes mellitus without complications; Z95.5 Presence of coronary angioplasty implant and graft; I44.7 Left bundle-branch block, unspecified; Z88.0 Allergy status to penicillin; Z88.1 Allergy status to other antibiotic agents; Z88.8 Allergy status to other drugs, medicaments and biological substances; Z91.018 Allergy to other foods; Z79.899 Other long term (current) drug therapy; Z79.4 Long term (current) use of insulin; Z79.82 Long term (current) use of aspirin; Z79.84 Long term (current) use of oral hypoglycemic drugs

== ENCOUNTER → 2021-12-26 | Outpatient (REF) | payer OTHER ==
[~2021-12-26] MED LIST changes: +ALBU2.5V10 INH; +ALBU2.5V10 NEB; -ALBU83IN INH; -ALBU83IN NEB
== END ==
LOC: M SFHCCLAY 14:29
PROVIDERS: ATTEND Nurse Practitioner Family
DX: N52.9 Male erectile dysfunction, unspecified (principal)

== ENCOUNTER → 2022-01-21 | Outpatient (CLI) | payer OTHER ==
[2022-01-21 12:46] LABS: HEMATOCRIT 45.5 % (42.0-52.0); HEMOGLOBIN 15.6 g/dl (13.5-17.5); MEAN CORPUSCULAR HEMOGLOBIN 30.8 pg (27.0-33.0); MEAN CORPUSCULAR HGB CONC 34.3 g/dl (32.0-36.5); MEAN CORPUSCULAR VOLUME 89.9 fl (80.0-96.0); PLATELET COUNT, AUTOMATED 179 10^3/uL (150-450); RED BLOOD COUNT 5.06 10^6/uL (4.30-6.10); WHITE BLOOD COUNT 5.8 10^3/uL (4.0-10.0)
[2022-01-21 13:00] LABS: ALBUMIN 3.9 GM/DL (3.2-5.2); ALT/SGPT 30 U/L (12-78); BILIRUBIN,TOTAL 0.9 MG/DL (0.2-1.0); BLOOD UREA NITROGEN 21 MG/DL (7-18); CALCIUM LEVEL 8.8 MG/DL (8.8-10.2); CARBON DIOXIDE LEVEL 25 MEQ/L (21-32); CHLORIDE LEVEL 109 MEQ/L (98-107); CREATININE FOR GFR 1.15 MG/DL (0.70-1.30); GLOMERULAR FILTRATION RATE > 60.0 (>49); GLUCOSE, FASTING 221 MG/DL (70-100); POTASSIUM SERUM 4.2 MEQ/L (3.5-5.1); SODIUM LEVEL 141 MEQ/L (136-145)
[2022-01-21 13:35] LABS: FOLLICLE STIMULATING HORMONE 7.8 mIU/mL (1.4-18.1); LUTEINIZING HORMONE 5.3 mIU/mL (1.5-9.3); PROLACTIN 11.8 NG/ML (2.1-17.7)
== END ==
LOC: M WUC 09:16
PROVIDERS: ATTEND Urology
DX: R79.89 Other specified abnormal findings of blood chemistry (principal)

== ENCOUNTER → 2022-03-04 | Outpatient (CLI) | payer OTHER ==
[~2022-03-04] MED LIST changes: +LEVO1TAB40 PO; -LEVO750T13 PO
== END ==
LOC: M SOG 09:29
PROVIDERS: ATTEND Physician Assistant
DX: M79.641 Pain in right hand (principal)

== ENCOUNTER → 2022-05-23 | Outpatient (CLI) | payer OTHER ==
[2022-05-23 13:21] LABS: CREATININE, URINE 231.4 MG/DL; MALB URINE SIEMENS < 5.0 MG/DL; MAU/CREAT RATIO 2.1 MCG/MG (0.0-30.0)
[2022-05-23 13:48] LABS: ALBUMIN 4.2 G/DL (3.2-5.2); ALT/SGPT 33 U/L (7.0-40); BILIRUBIN,TOTAL 0.9 MG/DL (0.3-1.2); BLOOD UREA NITROGEN 23 MG/DL (9-23); CALCIUM LEVEL 10.6 MG/DL (8.3-10.6); CARBON DIOXIDE LEVEL 26 MMOL/L (20-31); CHLORIDE LEVEL 105 MMOL/L (98-107); CHOLESTEROL LEVEL 110 MG/DL (<200); CHOLESTEROL RISK RATIO 2.98 (<5); CREATININE FOR GFR 1.07 MG/DL (0.70-1.30); GLOMERULAR FILTRATION RATE > 60.0 (>49); GLUCOSE, FASTING 156 MG/DL (74-106); HDL CHOLESTEROL 36.8 MG/DL (>40); LDL CHOLESTEROL 61.2 MG/DL (<100); NON-HDL-C 73 MG/DL; POTASSIUM SERUM 3.7 MMOL/L (3.5-5.1); SODIUM LEVEL 141 MMOL/L (136-145); THYROID STIMULATING HORMONE 10.857 uIU/ML (0.55-4.78); TOTAL 25(OH) VITAMIN D 29.6 NG/ML (20.0-100.0); TOTAL PROTEIN 6.6 G/DL (5.7-8.2); TRIGLYCERIDES LEVEL 60 MG/DL (<150)
[2022-05-23 13:50] LABS: HEMOGLOBIN A1c 8.8 % (4.0-6.0)
== END ==
LOC: M WUC 08:58
PROVIDERS: ATTEND Physician Assistant
DX: E55.9 Vitamin D deficiency, unspecified (principal); E11.65 Type 2 diabetes mellitus with hyperglycemia; Z79.4 Long term (current) use of insulin

== ENCOUNTER → 2022-05-23 | Outpatient (CLI) | payer OTHER ==
[2022-05-24 19:06] LABS: TESTOSTERONE FREE (DIRECT) 24.7 pg/mL (6.6-18.1)
== END ==
LOC: M WUC 08:55
PROVIDERS: ATTEND Urology
DX: R79.89 Other specified abnormal findings of blood chemistry (principal)

== ENCOUNTER 2022-08-22 15:54 | Emergency (ER) | payer OTHER ==
[~2022-08-22] VITALS: Ht 177.8 cm; Wt 108.2 kg
[2022-08-22] MEDS ORDERED: ASPIRIN 81MG CHEW TABLET PO ONE (16:35)
[2022-08-22 16:36] LABS: BASO # 0.1 10^3/uL (0.0-0.2); BASO % 0.8 % (0.0-1.0); EOS # 0.2 10^3/uL (0.0-0.5); EOS % 2.6 % (0.0-3.0); HEMATOCRIT 43.1 % (42.0-52.0); HEMOGLOBIN 15.4 g/dl (13.5-17.5); LYMPH % 32.6 % (24.0-44.0); MEAN CORPUSCULAR HEMOGLOBIN 31.4 pg (27.0-33.0); MEAN CORPUSCULAR HGB CONC 35.7 g/dl (32.0-36.5); MONO # 0.5 10^3/uL (0.0-0.8); MONO % 7.8 % (2.0-8.0); NEUTROPHILS # 3.4 10^3/uL (1.5-8.5); NEUTROPHILS % 55.7 % (36.0-66.0); PLATELET COUNT, AUTOMATED 167 10^3/uL (150-450); WHITE BLOOD COUNT 6.1 10^3/uL (4.0-10.0)
[2022-08-22 16:47] LABS: PARTIAL THROMBOPLASTIN TIME 27.3 SECONDS (24.8-34.2); PROTHROMBIN TIME 13.4 SECONDS (12.5-14.5)
[2022-08-22 16:55] LABS: CK-MB VALUE MASS 2.1 NG/ML (<3.6)
[2022-08-22 16:59] LABS: FREE T4 0.88 NG/DL (0.89-1.76); LIPASE 38 U/L (12-53)
[2022-08-22 17:00] LABS: CPK CREATINE PHOSPHOKINASE 195 U/L (46-171); MB/CK RELATIVE INDEX 1.07 (< OR =4); THYROID STIMULATING HORMONE 2.982 uIU/ML (0.55-4.78)
[2022-08-22 17:01] LABS: ALBUMIN 3.7 G/DL (3.2-5.2); ALKALINE PHOSPHATASE 90 U/L (46-116); ALT/SGPT 29 U/L (7.0-40); AST/SGOT 14 U/L (<34); BILIRUBIN,DIRECT 0.3 MG/DL (<0.4); BILIRUBIN,TOTAL 0.8 MG/DL (0.3-1.2); BLOOD UREA NITROGEN 16 MG/DL (9-23); CALCIUM LEVEL 8.4 MG/DL (8.3-10.6); CARBON DIOXIDE LEVEL 25 MMOL/L (20-31); CHLORIDE LEVEL 111 MMOL/L (98-107); CREATININE FOR GFR 0.99 MG/DL (0.70-1.30); GLOMERULAR FILTRATION RATE > 60.0 (>49); GLUCOSE, FASTING 173 MG/DL (74-106); POTASSIUM SERUM 3.8 MMOL/L (3.5-5.1); SODIUM LEVEL 143 MMOL/L (136-145); TOTAL PROTEIN 5.9 G/DL (5.7-8.2)
[2022-08-22] MEDS ORDERED: ISOVUE-370 76% 100ML VIAL As Ordered ONE (17:53)
[2022-08-22] MEDS: NITROGLYCERIN 0.4MG SUBL TABLET SL PRN ×3 (18:10→20:25)
[2022-08-22 18:35] LABS: CK-MB VALUE MASS 2.9 NG/ML (<3.6)
[2022-08-22 18:36] LABS: MB/CK RELATIVE INDEX 1.47 (< OR =4)
[2022-08-22] MEDS ORDERED: PANTOPRAZOLE 40MG VIAL IV ONE (20:10)
[2022-08-22] MEDS ORDERED: GI COCKTAIL 50ML BTL(HYOSCYAMINE/MAALOX/LIDOCAINE VISCOUS)(1:3:1) PO ONE (20:10)
[2022-08-22 20:17] LABS: CK-MB VALUE MASS 1.9 NG/ML (<3.6)
[2022-08-22 20:18] LABS: MB/CK RELATIVE INDEX 1.1 (< OR =4)
[2022-08-22 20:25] VITALS: BP 136/67
[2022-08-22 22:00] VITALS: BP 152/68
== END 2022-08-22 22:38 | disposition home or self-care (01) ==
LOC: M ED 15:54
DX: R07.9 Chest pain, unspecified (principal); R06.02 Shortness of breath; I10 Essential (primary) hypertension; E11.9 Type 2 diabetes mellitus without complications; E78.5 Hyperlipidemia, unspecified; I25.10 Atherosclerotic heart disease of native coronary artery without angina pectoris; G47.33 Obstructive sleep apnea (adult) (pediatric); I44.4 Left anterior fascicular block; E06.9 Thyroiditis, unspecified; Z95.5 Presence of coronary angioplasty implant and graft; Z82.49 Family history of ischemic heart disease and other diseases of the circulatory system
CPT/HCPCS: 71045; 71275; 74177; 80048; 80076; 82550; 82553; 83690; 84439; 84443; 85025; 85610; 85730; 93005; 93041; 94760; 96374; 99285; C9113

== ENCOUNTER → 2022-08-26 | Outpatient (CLI) | payer OTHER | LOC: M LAB 16:11 | PROVIDERS: ATTEND Physician Assistant | DX: E11.65 Type 2 diabetes mellitus with hyperglycemia (principal); Z79.4 Long term (current) use of insulin ==

== ENCOUNTER → 2022-08-29 | Outpatient (CLI) | payer OTHER ==
[~2022-08-29] MED LIST changes: +PROHANCE 279.3MG/ML 15ML VIAL As Ordered ONE; +PROHANCE 279.3MG/ML 5ML VIAL As Ordered ONE
== END ==
LOC: M RAD 12:20
PROVIDERS: ATTEND Nurse Practitioner Family
DX: G54.0 Brachial plexus disorders (principal)
CPT/HCPCS: 71552; A9576

== ENCOUNTER 2022-09-08 20:47 | Emergency (ER) | payer OTHER ==
[~2022-09-08] VITALS: Ht 177.8 cm; Wt 107.9 kg
[~2022-09-08 20:47] MED LIST changes: -PROHANCE 279.3MG/ML 15ML VIAL As Ordered ONE; -PROHANCE 279.3MG/ML 5ML VIAL As Ordered ONE
[2022-09-08] MEDS ORDERED: NS 1,000 ML IV ONE (21:30)
[2022-09-08] MEDS ORDERED: KETOROLAC 30 MG/ML 1ML VIAL IV ONE (21:30)
[2022-09-08] MEDS ORDERED: ONDANSETRON 4MG 2ML VIAL IV ONE (21:30)
[2022-09-08 22:25] LABS: BASO % 0.2 % (0.0-1.0); EOS # 0.3 10^3/uL (0.0-0.5); EOS % 2.1 % (0.0-3.0); HEMOGLOBIN 17.8 g/dl (13.5-17.5); LYMPH # 1.6 10^3/uL (1.5-5.0); LYMPH % 12.7 % (24.0-44.0); MEAN CORPUSCULAR HEMOGLOBIN 30.9 pg (27.0-33.0); MEAN CORPUSCULAR HGB CONC 35.6 g/dl (32.0-36.5); MEAN CORPUSCULAR VOLUME 86.8 fl (80.0-96.0); MONO # 0.8 10^3/uL (0.0-0.8); MONO % 6.7 % (2.0-8.0); NEUTROPHILS # 9.7 10^3/uL (1.5-8.5); NEUTROPHILS % 77.8 % (36.0-66.0); PLATELET COUNT, AUTOMATED 183 10^3/uL (150-450); RED BLOOD COUNT 5.76 10^6/uL (4.30-6.10); WHITE BLOOD COUNT 12.5 10^3/uL (4.0-10.0)
[2022-09-08 22:33] LABS: RSV AMPLIFICATION NEGATIVE (NEGATIVE)
[2022-09-08 22:36] LABS: INR 1.03; PROTHROMBIN TIME 13.7 SECONDS (12.5-14.5)
[2022-09-08 22:56] LABS: LIPASE 23 U/L (12-53)
[2022-09-08 22:57] LABS: AMYLASE 35 U/L (30-118)
[2022-09-08 23:01] LABS: ALBUMIN 3.8 G/DL (3.2-5.2); ALKALINE PHOSPHATASE 118 U/L (46-116); ALT/SGPT 31 U/L (7.0-40); AST/SGOT 13 U/L (<34); BILIRUBIN,DIRECT 0.5 MG/DL (<0.4); BILIRUBIN,TOTAL 1.5 MG/DL (0.3-1.2); BLOOD UREA NITROGEN 19 MG/DL (9-23); CALCIUM LEVEL 8.1 MG/DL (8.3-10.6); CARBON DIOXIDE LEVEL 22 MMOL/L (20-31); CHLORIDE LEVEL 108 MMOL/L (98-107); CREATININE FOR GFR 0.94 MG/DL (0.70-1.30); GLOMERULAR FILTRATION RATE > 60.0 (>49); GLUCOSE, FASTING 217 MG/DL (74-106); POTASSIUM SERUM 3.4 MMOL/L (3.5-5.1); SODIUM LEVEL 141 MMOL/L (136-145)
[2022-09-08 23:04] VITALS: BP 116/55
[2022-09-08 23:05] LABS: CPK CREATINE PHOSPHOKINASE 128 U/L (46-171); MB/CK RELATIVE INDEX 1.56 (< OR =4)
[2022-09-08 23:48] LABS: CK-MB VALUE MASS 1.6 NG/ML (<3.6)
[2022-09-08] MEDS ORDERED: METOCLOPRAMIDE INJ 10MG/2ML VIAL IV ONE (23:50)
[2022-09-08 23:51] LABS: MB/CK RELATIVE INDEX 1.4 (< OR =4)
[2022-09-08] MEDS ORDERED: ISOVUE-370 76% 100ML VIAL As Ordered ONE (23:59)
[2022-09-09] MEDS ORDERED: NS 1,000 ML IV ONE (01:15)
[2022-09-09] MEDS ORDERED: TRAM50TA2 PO (01:56)
[2022-09-09] MEDS ORDERED: ONDA4TAB6 PO (01:56)
[2022-09-09] MEDS ORDERED: ONDANSETRON 4MG 2ML VIAL IV ONE (02:35)
== END 2022-09-09 02:48 | disposition home or self-care (01) ==
LOC: M ED 20:47
DX: K52.9 Noninfective gastroenteritis and colitis, unspecified (principal); R05.9 Cough, unspecified; R07.9 Chest pain, unspecified; I10 Essential (primary) hypertension; I25.10 Atherosclerotic heart disease of native coronary artery without angina pectoris; I25.2 Old myocardial infarction; E11.9 Type 2 diabetes mellitus without complications; F32.A Depression, unspecified; E78.5 Hyperlipidemia, unspecified; E07.9 Disorder of thyroid, unspecified; G43.909 Migraine, unspecified, not intractable, without status migrainosus; Z88.0 Allergy status to penicillin; Z88.1 Allergy status to other antibiotic agents; Z88.8 Allergy status to other drugs, medicaments and biological substances; Z91.018 Allergy to other foods; Z79.899 Other long term (current) drug therapy; Z79.82 Long term (current) use of aspirin; Z79.84 Long term (current) use of oral hypoglycemic drugs; Z79.4 Long term (current) use of insulin; Z79.890 Hormone replacement therapy
CPT/HCPCS: 71260; 74177; 76705; 80053; 80076; 82150; 82550; 82553; 83690; 85025; 85610; 87507; 87631; 93005; 93041; 96374; 96375; 96376; 99284; J1885; J2405; J2765

== ENCOUNTER 2022-10-02 02:10 | Emergency (ER) | payer OTHER ==
[~2022-10-02] VITALS: Ht 177.8 cm; Wt 110.0 kg
[~2022-10-02 02:10] MED LIST changes: +FLUT15.820; -FLUT15.820 NARES
[2022-10-02] MEDS ORDERED: ISOVUE-370 76% 100ML VIAL As Ordered ONE (02:28)
[2022-10-02 02:42] LABS: INR 0.98; PROTHROMBIN TIME 13.2 SECONDS (12.5-14.5)
[2022-10-02 02:43] LABS: PARTIAL THROMBOPLASTIN TIME 26.5 SECONDS (24.8-34.2)
[2022-10-02 02:45] LABS: BASO # 0.1 10^3/uL (0.0-0.2); BASO % 0.8 % (0.0-1.0); EOS # 0.8 10^3/uL (0.0-0.5); EOS % 10.3 % (0.0-3.0); HEMATOCRIT 42.8 % (42.0-52.0); HEMOGLOBIN 15.5 g/dl (13.5-17.5); LYMPH % 39.6 % (24.0-44.0); MEAN CORPUSCULAR HEMOGLOBIN 31.2 pg (27.0-33.0); MEAN CORPUSCULAR HGB CONC 36.2 g/dl (32.0-36.5); MEAN CORPUSCULAR VOLUME 86.1 fl (80.0-96.0); MONO # 0.5 10^3/uL (0.0-0.8); NEUTROPHILS # 3.2 10^3/uL (1.5-8.5); NEUTROPHILS % 41.9 % (36.0-66.0); PLATELET COUNT, AUTOMATED 171 10^3/uL (150-450); RED BLOOD COUNT 4.97 10^6/uL (4.30-6.10); WHITE BLOOD COUNT 7.6 10^3/uL (4.0-10.0)
[2022-10-02] MEDS ORDERED: MORPHINE 4 MG/ML 1ML VIAL IV ONE (02:55)
[2022-10-02] MEDS ORDERED: ONDANSETRON 4MG 2ML VIAL IV ONE (02:55)
[2022-10-02 02:59] LABS: BLOOD UREA NITROGEN 18 MG/DL (9-23); CALCIUM LEVEL 8.5 MG/DL (8.3-10.6); CARBON DIOXIDE LEVEL 24 MMOL/L (20-31); CHLORIDE LEVEL 106 MMOL/L (98-107); CK-MB VALUE MASS 1.6 NG/ML (<3.6); GLOMERULAR FILTRATION RATE > 60.0 (>49); GLUCOSE, FASTING 270 MG/DL (74-106); POTASSIUM SERUM 3.8 MMOL/L (3.5-5.1); SODIUM LEVEL 138 MMOL/L (136-145)
[2022-10-02 03:05] LABS: CPK CREATINE PHOSPHOKINASE 204 U/L (46-171); MB/CK RELATIVE INDEX 0.78 (< OR =4)
[2022-10-02] MEDS ORDERED: LORazepam 2 MG/ML 1ML VIAL IV STA (03:46)
[2022-10-02 03:55] LABS: CK-MB VALUE MASS 1.5 NG/ML (<3.6)
[2022-10-02 04:05] LABS: MB/CK RELATIVE INDEX 0.9 (< OR =4)
[2022-10-02 05:45] VITALS: BP 123/59
[2022-10-02] MEDS ORDERED: GI COCKTAIL 50ML BTL(HYOSCYAMINE/MAALOX/LIDOCAINE VISCOUS)(1:3:1) PO ONE (06:00)
[2022-10-02] MEDS ORDERED: ONDANSETRON 4MG ORAL DISINTEGRATING TAB PO ONE (06:20)
[2022-10-02] MEDS ORDERED: ONDA4TAB6 PO (06:47)
[2022-10-03] MEDS ORDERED: ASPI-161 PO (01:54)
[2022-10-03] MEDS ORDERED: INSU100V12 SC (01:54)
[2022-10-03] MEDS ORDERED: TRAM50TA2 PO (02:01)
[2022-10-03] MEDS ORDERED: ONDA4TAB6 PO (02:01)
[2022-10-03] MEDS ORDERED: EPIP0.3I2 IM (02:01)
[2022-10-03] MEDS ORDERED: SYNT137T7 PO (02:01)
[2022-10-03] MEDS ORDERED: TEST200I14 IM (02:01)
== END 2022-10-02 06:49 | disposition home or self-care (01) ==
LOC: M ED 02:10 → EDBD 02:10 → M ED 06:49
DX: G43.909 Migraine, unspecified, not intractable, without status migrainosus (principal); A05.9 Bacterial foodborne intoxication, unspecified; R07.9 Chest pain, unspecified; I25.2 Old myocardial infarction; I10 Essential (primary) hypertension; E11.9 Type 2 diabetes mellitus without complications; K21.9 Gastro-esophageal reflux disease without esophagitis; E07.9 Disorder of thyroid, unspecified; R29.704 NIHSS score 4; J45.909 Unspecified asthma, uncomplicated; Z95.5 Presence of coronary angioplasty implant and graft; Z88.0 Allergy status to penicillin; Z88.1 Allergy status to other antibiotic agents; Z88.8 Allergy status to other drugs, medicaments and biological substances; Z91.018 Allergy to other foods; Z79.899 Other long term (current) drug therapy; Z79.82 Long term (current) use of aspirin; Z79.84 Long term (current) use of oral hypoglycemic drugs; Z79.890 Hormone replacement therapy; Z79.4 Long term (current) use of insulin
CPT/HCPCS: 70450; 70496; 70498; 71045; 80047; 80048; 82550; 82553; 85025; 85610; 85730; 93005; 93041; 94760; 96374; 96375; 99285; J2060; Q9967

== ENCOUNTER 2022-10-02 19:48 | Observation (INO) | payer OTHER ==
[~2022-10-02] VITALS: Ht 177.8 cm; Wt 110.0 kg
[2022-10-02] MEDS ORDERED: NS 1,000 ML IV ONE (20:20)
[2022-10-02 20:42] LABS: BASO % 0.1 % (0.0-1.0); EOS # 0.3 10^3/uL (0.0-0.5); EOS % 3.3 % (0.0-3.0); HEMATOCRIT 45.3 % (42.0-52.0); HEMOGLOBIN 16.2 g/dl (13.5-17.5); LYMPH # 1.7 10^3/uL (1.5-5.0); LYMPH % 23.2 % (24.0-44.0); MEAN CORPUSCULAR HEMOGLOBIN 31.2 pg (27.0-33.0); MEAN CORPUSCULAR HGB CONC 35.8 g/dl (32.0-36.5); MEAN CORPUSCULAR VOLUME 87.3 fl (80.0-96.0); MONO # 0.4 10^3/uL (0.0-0.8); MONO % 5.7 % (2.0-8.0); NEUTROPHILS # 5.1 10^3/uL (1.5-8.5); NEUTROPHILS % 67.4 % (36.0-66.0); PLATELET COUNT, AUTOMATED 168 10^3/uL (150-450); RED BLOOD COUNT 5.19 10^6/uL (4.30-6.10); WHITE BLOOD COUNT 7.5 10^3/uL (4.0-10.0)
[2022-10-02 21:04] LABS: BLOOD UREA NITROGEN 18 MG/DL (9-23); CALCIUM LEVEL 8.6 MG/DL (8.3-10.6); CARBON DIOXIDE LEVEL 26 MMOL/L (20-31); CHLORIDE LEVEL 108 MMOL/L (98-107); CREATININE FOR GFR 0.77 MG/DL (0.70-1.30); GLOMERULAR FILTRATION RATE > 60.0 (>49); GLUCOSE, FASTING 185 MG/DL (74-106); SODIUM LEVEL 141 MMOL/L (136-145)
[2022-10-02] MEDS ORDERED: ONDANSETRON 4MG 2ML VIAL IV ONE (21:25)
[2022-10-02 21:53] LABS: CK-MB VALUE MASS 1.1 NG/ML (<3.6)
[2022-10-02 22:06] LABS: MB/CK RELATIVE INDEX 1.03 (< OR =4)
[2022-10-02 23:17] LABS: C REACTIVE PROTEIN QUANTITATIV < 0.40 MG/DL (<1.0)
[2022-10-02 23:51] LABS: ERYTHROCYTE SEDIMENTATION RATE 4 mm/hr (0-20)
[2022-10-02 23:56] LABS: RSV AMPLIFICATION NEGATIVE (NEGATIVE)
[2022-10-03] MEDS ORDERED: ONDANSETRON 4MG 2ML VIAL IV PRN
[2022-10-03] MEDS ORDERED: KETOROLAC 30 MG/ML 1ML VIAL IV PRN
[2022-10-03] MEDS ORDERED: ACETAMINOPHEN TAB 650MG DOSE (2X325MG) PO PRN
[2022-10-03] MEDS: LR 1,000 ML IV SCH ×2 (00:26→07:33)
[2022-10-03] MEDS: METOCLOPRAMIDE INJ 10MG/2ML VIAL IV SCH ×4 (00:26→18:13)
[2022-10-03] MEDS ORDERED: INSU100V12 SC (01:54)
[2022-10-03] MEDS ORDERED: ASPI-161 PO (01:54)
[2022-10-03 01:55] VITALS: BP 145/77
[2022-10-03] MEDS ORDERED: TEST200I14 IM (02:01)
[2022-10-03] MEDS ORDERED: ONDA4TAB6 PO (02:01)
[2022-10-03] MEDS ORDERED: TRAM50TA2 PO (02:01)
[2022-10-03] MEDS ORDERED: EPIP0.3I2 IM (02:01)
[2022-10-03] MEDS ORDERED: SYNT137T7 PO (02:01)
[2022-10-03] MEDS ORDERED: DEXTROSE 50% 50ML SYRINGE IV PRN (02:05)
[2022-10-03] MEDS ORDERED: traMADol 50 MG TAB PO PRN (02:05)
[2022-10-03] MEDS ORDERED: HOME MED LIST COMPLETE! XX SCH (02:05)
[2022-10-03] MEDS ORDERED: GLUCOSE 4GM CHEW TABLET PO PRN (02:05)
[2022-10-03] MEDS ORDERED: ALBUTEROL 90 MCG/ACT 8GM HFA INHALER INH PRN (02:05)
[2022-10-03] MEDS ORDERED: GLUCAGON INJ 1MG VIAL SC PRN (02:05)
[2022-10-03] MEDS ORDERED: MECLIZINE 25 MG TABLET PO PRN (02:35)
[2022-10-03 05:39] VITALS: BP 130/58
[2022-10-03] MEDS: LEVOTHYROXINE 137MCG TABLET (0.137MG) PO SCH (06:25)
[2022-10-03 07:09] LABS: HEMATOCRIT 41.2 % (42.0-52.0); HEMOGLOBIN 14.3 g/dl (13.5-17.5); MEAN CORPUSCULAR HEMOGLOBIN 31.2 pg (27.0-33.0); MEAN CORPUSCULAR HGB CONC 34.7 g/dl (32.0-36.5); PLATELET COUNT, AUTOMATED 142 10^3/uL (150-450); RED BLOOD COUNT 4.58 10^6/uL (4.30-6.10); WHITE BLOOD COUNT 5.7 10^3/uL (4.0-10.0)
[2022-10-03 07:44] LABS: ALBUMIN 3.4 G/DL (3.2-5.2); ALKALINE PHOSPHATASE 91 U/L (46-116); ALT/SGPT 26 U/L (7.0-40); AST/SGOT 14 U/L (<34); BILIRUBIN,TOTAL 1.2 MG/DL (0.3-1.2); BLOOD UREA NITROGEN 19 MG/DL (9-23); CALCIUM LEVEL 8.2 MG/DL (8.3-10.6); CARBON DIOXIDE LEVEL 29 MMOL/L (20-31); CHLORIDE LEVEL 106 MMOL/L (98-107); CREATININE FOR GFR 0.96 MG/DL (0.70-1.30); GLOMERULAR FILTRATION RATE > 60.0 (>49); GLUCOSE, FASTING 164 MG/DL (74-106); MAGNESIUM LEVEL 1.8 MG/DL (1.8-2.4); POTASSIUM SERUM 3.6 MMOL/L (3.5-5.1); SODIUM LEVEL 140 MMOL/L (136-145); TOTAL PROTEIN 5.4 G/DL (5.7-8.2)
[2022-10-03] MEDS: LEVEMIR (INSULIN DETEMIR) 1 UNITS/0.01ML SC SCH ×2 (08:40→21:58)
[2022-10-03] MEDS: INSULIN LISPRO (NovoLOG) PER UNIT SC SCH ×3 (08:41→18:14)
[2022-10-03] MEDS: ENOXAPARIN 40MG/0.4ML SYRINGE (J1650 PER 10MG) SC SCH (08:41)
[2022-10-03] MEDS ORDERED: ASPIRIN 81MG CHEW TABLET PO STA (09:04)
[2022-10-03] MEDS ORDERED: CALCIUM CARBONATE 500 MG CHEW U/D PO PRN (11:45)
[2022-10-03 14:00] VITALS: BP 128/50
[2022-10-03 20:00] VITALS: BP 147/72
[2022-10-03] MEDS ORDERED: INSULIN LISPRO (NovoLOG) PER UNIT SC SCH (21:00)
[2022-10-03] MEDS ORDERED: CETIRIZINE (ZyrTEC) 10 MG TAB PO SCH (21:00)
[2022-10-03] MEDS ORDERED: PARoxetine 20MG TABLET PO SCH (21:00)
[2022-10-03] MEDS ORDERED: ASPIRIN 81MG ENTERIC TABLET PO SCH (21:00)
[2022-10-03] MEDS ORDERED: PANTOPRAZOLE 40MG TAB (PROTONIX) PO SCH (21:00)
[2022-10-03] MEDS ORDERED: ATORVASTATIN 20 MG TAB PO SCH (21:00)
[2022-10-03] MEDS ORDERED: LOSARTAN 50MG TABLET PO SCH (21:00)
[2022-10-03] MEDS ORDERED: TOPIRAMATE (TopAMAX) 25 MG TAB PO SCH (21:30)
[2022-10-03 21:57] VITALS: BP 147/72
[2022-10-04] MEDS: METOCLOPRAMIDE INJ 10MG/2ML VIAL IV SCH ×3 (00:55→12:00)
[2022-10-04] MEDS: LEVOTHYROXINE 137MCG TABLET (0.137MG) PO SCH (05:33)
[2022-10-04 05:41] VITALS: BP 141/75
[2022-10-04 07:43] LABS: BASO % 0.6 % (0.0-1.0); EOS % 16.2 % (0.0-3.0); HEMATOCRIT 41.1 % (42.0-52.0); HEMOGLOBIN 14.3 g/dl (13.5-17.5); LYMPH # 2.3 10^3/uL (1.5-5.0); LYMPH % 37.6 % (24.0-44.0); MEAN CORPUSCULAR HGB CONC 34.8 g/dl (32.0-36.5); MONO # 0.5 10^3/uL (0.0-0.8); MONO % 7.6 % (2.0-8.0); NEUTROPHILS # 2.3 10^3/uL (1.5-8.5); NEUTROPHILS % 37.7 % (36.0-66.0); PLATELET COUNT, AUTOMATED 143 10^3/uL (150-450); RED BLOOD COUNT 4.62 10^6/uL (4.30-6.10); WHITE BLOOD COUNT 6.2 10^3/uL (4.0-10.0)
[2022-10-04 08:01] LABS: ALBUMIN 3.3 G/DL (3.2-5.2); BILIRUBIN,DIRECT 0.2 MG/DL (<0.4); BILIRUBIN,TOTAL 0.6 MG/DL (0.3-1.2); TOTAL PROTEIN 5.4 G/DL (5.7-8.2)
[2022-10-04] MEDS: LEVEMIR (INSULIN DETEMIR) 1 UNITS/0.01ML SC SCH (09:28)
[2022-10-04] MEDS: INSULIN LISPRO (NovoLOG) PER UNIT SC SCH ×2 (09:28→12:51)
[2022-10-04] MEDS: ENOXAPARIN 40MG/0.4ML SYRINGE (J1650 PER 10MG) SC SCH (09:29)
[2022-10-04] MEDS ORDERED: TOPA1TAB PO (10:55)
[2022-10-04] MEDS ORDERED: ACET1TAB55 PO (10:55)
== END 2022-10-04 14:36 | disposition home or self-care (01) ==
LOC: M ED 19:48 → INTOOBSV 23:57 → M ED INP 23:57 → ENRESERV 10-03 01:00 → M MSPAV 10-03 01:45
PROVIDERS: ADMIT Family Medicine; ATTEND Internal Medicine
DX: G45.9 Transient cerebral ischemic attack, unspecified (principal); K52.9 Noninfective gastroenteritis and colitis, unspecified; R07.9 Chest pain, unspecified; E03.9 Hypothyroidism, unspecified; G43.909 Migraine, unspecified, not intractable, without status migrainosus; I25.10 Atherosclerotic heart disease of native coronary artery without angina pectoris; Z98.61 Coronary angioplasty status; I10 Essential (primary) hypertension; E78.5 Hyperlipidemia, unspecified; J45.909 Unspecified asthma, uncomplicated; F41.9 Anxiety disorder, unspecified; F32.A Depression, unspecified; G47.33 Obstructive sleep apnea (adult) (pediatric); K21.9 Gastro-esophageal reflux disease without esophagitis; E11.9 Type 2 diabetes mellitus without complications; Z79.899 Other long term (current) drug therapy; Z79.4 Long term (current) use of insulin; Z91.018 Allergy to other foods; Z88.2 Allergy status to sulfonamides; Z88.0 Allergy status to penicillin; Z88.8 Allergy status to other drugs, medicaments and biological substances
CPT/HCPCS: 36415; 70450; 70544; 70547; 70551; 72141; 80047; 80048; 80053; 80076; 80503; 82550; 82553; 83010; 83615; 83735; 85025; 85027; 85652; 86140; 86618; 87507; 87631; 92526; 92610; 93005; 96361; 96372; 96374; 96375; 96376; 99285; J1650; J1815; J1885; J2405; J2765

== ENCOUNTER → 2022-11-05 | Outpatient (CLI) | payer OTHER ==
[~2022-11-05] MED LIST changes: +ACET1TAB55 PO; +ASPI-161 PO; +EPIP0.3I2 IM; +INSU100V12 SC; -LOSA100T45 PO; +LOSA100T46 PO; +SYNT137T7 PO; +TEST200I14 IM
[2022-11-05 10:23] LABS: HEMOGLOBIN 16.6 g/dl (13.5-17.5); MEAN CORPUSCULAR HEMOGLOBIN 30.7 pg (27.0-33.0); MEAN CORPUSCULAR HGB CONC 34.6 g/dl (32.0-36.5); MEAN CORPUSCULAR VOLUME 88.7 fl (80.0-96.0); PLATELET COUNT, AUTOMATED 176 10^3/uL (150-450); RED BLOOD COUNT 5.41 10^6/uL (4.30-6.10); WHITE BLOOD COUNT 6.3 10^3/uL (4.0-10.0)
[2022-11-06 15:13] LABS: TESTOSTERONE FREE (DIRECT) 2.7 pg/mL (6.6-18.1)
== END ==
LOC: M LAB 09:37
PROVIDERS: ATTEND Urology
DX: R79.89 Other specified abnormal findings of blood chemistry (principal)

== ENCOUNTER → 2022-11-08 | Outpatient (REF) | payer OTHER ==
[2022-11-08 18:05] LABS: APPEARANCE, URINE CLEAR (CLEAR); BACTERIA, URINE AUTO NEGATIVE (NEGATIVE); BILIRUBIN, URINE AUTO NEGATIVE (NEGATIVE); BLOOD, URINE BLOOD NEGATIVE (NEGATIVE); COLOR, URINE YELLOW (YELLOW); GLUCOSE, URINE (UA) AUTO 1+ mg/dL (NEGATIVE); KETONE, URINE AUTO NEGATIVE (NEGATIVE); LEUKOCYTE ESTERASE, URINE AUTO NEGATIVE (NEGATIVE); NITRITE, URINE AUTO NEGATIVE (NEGATIVE); PROTEIN, URINE AUTO NEGATIVE (NEGATIVE); RBC, URINE AUTO 0 /HPF (0-3); SPECIFIC GRAVITY URINE AUTO 1.012 (1.002-1.035); SQUAMOUS EPITHELIAL CELL UR AU 0 /HPF (0-6); UROBILINOGEN, URINE AUTO 0.2 mg/dL (0.0-2.0); WBC, URINE AUTO 0 /HPF (0-3)
== END ==
LOC: M SFHCCLAY 16:57
PROVIDERS: ATTEND Physician Assistant
DX: R10.30 Lower abdominal pain, unspecified (principal)

== ENCOUNTER → 2022-11-14 | Outpatient (CLI) | payer OTHER | LOC: M RAD 15:56 | PROVIDERS: ATTEND Nurse Practitioner Adult Health | DX: R06.02 Shortness of breath (principal) ==

== ENCOUNTER 2023-05-01 23:01 | Emergency (ER) | payer OTHER ==
[~2023-05-01] VITALS: Ht 177.8 cm; Wt 115.9 kg
[~2023-05-01 23:01] MED LIST changes: +DICY-61 PO; -DICY10CA13 PO
[2023-05-01 23:46] LABS: BASO % 0.2 % (0.0-1.0); EOS # 0.2 10^3/uL (0.0-0.5); EOS % 2.4 % (0.0-3.0); HEMATOCRIT 43.3 % (42.0-52.0); HEMOGLOBIN 15.3 g/dl (13.5-17.5); LYMPH # 0.7 10^3/uL (1.5-5.0); LYMPH % 7.3 % (24.0-44.0); MEAN CORPUSCULAR HEMOGLOBIN 31.3 pg (27.0-33.0); MEAN CORPUSCULAR HGB CONC 35.3 g/dl (32.0-36.5); MEAN CORPUSCULAR VOLUME 88.5 fl (80.0-96.0); MONO # 0.6 10^3/uL (0.0-0.8); MONO % 5.8 % (2.0-8.0); NEUTROPHILS # 8.2 10^3/uL (1.5-8.5); PLATELET COUNT, AUTOMATED 169 10^3/uL (150-450); RED BLOOD COUNT 4.89 10^6/uL (4.30-6.10); WHITE BLOOD COUNT 9.7 10^3/uL (4.0-10.0)
[2023-05-02 00:10] LABS: BLOOD UREA NITROGEN 22 MG/DL (9-23); CALCIUM LEVEL 8.4 MG/DL (8.3-10.6); CARBON DIOXIDE LEVEL 26 MMOL/L (20-31); CHLORIDE LEVEL 107 MMOL/L (98-107); CK-MB VALUE MASS 3.2 NG/ML (<3.6); CPK CREATINE PHOSPHOKINASE 429 U/L (46-171); GLOMERULAR FILTRATION RATE > 60.0 (>49); GLUCOSE, FASTING 115 MG/DL (74-106); MB/CK RELATIVE INDEX 0.74 (< OR =4); POTASSIUM SERUM 3.9 MMOL/L (3.5-5.1); SODIUM LEVEL 144 MMOL/L (136-145)
[2023-05-02 03:23] LABS: CK-MB VALUE MASS 2.1 NG/ML (<3.6)
[2023-05-02 03:27] LABS: MB/CK RELATIVE INDEX 0.56 (< OR =4)
[2023-05-02] MEDS ORDERED: ISOVUE-370 76% 100ML VIAL As Ordered ONE (04:11)
[2023-05-02] MEDS ORDERED: MORPHINE 4 MG/ML 1ML VIAL IV ONE (04:20)
[2023-05-02 04:24] LABS: LIPASE 25 U/L (12-53)
[2023-05-02 04:26] LABS: ALBUMIN 3.8 G/DL (3.2-5.2); ALKALINE PHOSPHATASE 89 U/L (46-116); ALT/SGPT 24 U/L (7.0-40); AST/SGOT 20 U/L (<34); BILIRUBIN,DIRECT 0.5 MG/DL (<0.4); BILIRUBIN,TOTAL 1.3 MG/DL (0.3-1.2); TOTAL PROTEIN 6.2 G/DL (5.7-8.2)
[2023-05-02] MEDS ORDERED: ONDANSETRON 4MG 2ML VIAL As Ordered ONE (04:30)
[2023-05-02] MEDS ORDERED: ONDANSETRON 4MG 2ML VIAL IV ONE (04:30)
[2023-05-02 05:04] LABS: MB/CK RELATIVE INDEX 0.56 (< OR =4)
[2023-05-02] MEDS ORDERED: MAALOX 30 ML SUSP *UDC PO ONE (05:05)
[2023-05-02] MEDS ORDERED: KETOROLAC 30 MG/ML 1ML VIAL IV ONE (06:50)
[2023-05-02 07:27] VITALS: BP 149/70; TEMP 99.7; O2SAT 95
== END 2023-05-02 07:32 | disposition home or self-care (01) ==
LOC: M ED 23:01 → EDBD 23:01 → M ED 05-02 07:32
DX: R07.89 Other chest pain (principal); R16.1 Splenomegaly, not elsewhere classified; R91.8 Other nonspecific abnormal finding of lung field; I25.10 Atherosclerotic heart disease of native coronary artery without angina pectoris; I25.2 Old myocardial infarction; E11.9 Type 2 diabetes mellitus without complications; I10 Essential (primary) hypertension; E78.5 Hyperlipidemia, unspecified; K21.9 Gastro-esophageal reflux disease without esophagitis; J45.909 Unspecified asthma, uncomplicated; Z95.5 Presence of coronary angioplasty implant and graft; Z87.891 Personal history of nicotine dependence; Z82.49 Family history of ischemic heart disease and other diseases of the circulatory system; Z79.4 Long term (current) use of insulin; Z79.899 Other long term (current) drug therapy; Z88.0 Allergy status to penicillin; Z88.1 Allergy status to other antibiotic agents; Z88.8 Allergy status to other drugs, medicaments and biological substances; Z88.2 Allergy status to sulfonamides; Z91.018 Allergy to other foods
CPT/HCPCS: 36415; 71045; 71275; 80048; 80076; 82550; 82553; 83690; 83880; 84484; 85025; 87040; 87486; 87581; 87633; 87798; 93005; 93041; 94760; 96374; 96375; 99285; J1885; J2405; Q9967

== ENCOUNTER → 2023-06-01 | Outpatient (CLI) | payer OTHER ==
[2023-06-01 09:36] LABS: BASO # 0.1 10^3/uL (0.0-0.2); BASO % 0.8 % (0.0-1.0); EOS # 0.3 10^3/uL (0.0-0.5); EOS % 4.5 % (0.0-3.0); HEMATOCRIT 46.9 % (42.0-52.0); HEMOGLOBIN 16.3 g/dl (13.5-17.5); LYMPH % 32.2 % (24.0-44.0); MEAN CORPUSCULAR HEMOGLOBIN 30.9 pg (27.0-33.0); MEAN CORPUSCULAR HGB CONC 34.8 g/dl (32.0-36.5); MONO # 0.6 10^3/uL (0.0-0.8); MONO % 8.8 % (2.0-8.0); NEUTROPHILS # 3.3 10^3/uL (1.5-8.5); NEUTROPHILS % 53.1 % (36.0-66.0); PLATELET COUNT, AUTOMATED 163 10^3/uL (150-450); RED BLOOD COUNT 5.27 10^6/uL (4.30-6.10); WHITE BLOOD COUNT 6.3 10^3/uL (4.0-10.0)
[2023-06-01 09:49] LABS: HEMOGLOBIN A1c 7.1 % (4.0-6.0)
[2023-06-01 09:59] LABS: ALBUMIN 3.7 G/DL (3.2-5.2); ALKALINE PHOSPHATASE 104 U/L (46-116); ALT/SGPT 28 U/L (7.0-40); AST/SGOT 13 U/L (<34); BILIRUBIN,TOTAL 0.8 MG/DL (0.3-1.2); BLOOD UREA NITROGEN 16 MG/DL (9-23); CALCIUM LEVEL 8.7 MG/DL (8.3-10.6); CARBON DIOXIDE LEVEL 29 MMOL/L (20-31); CHLORIDE LEVEL 108 MMOL/L (98-107); CHOLESTEROL LEVEL 110 MG/DL (<200); CHOLESTEROL RISK RATIO 3.52 (<5); CREATININE FOR GFR 0.95 MG/DL (0.70-1.30); GLOMERULAR FILTRATION RATE > 60.0 (>49); GLUCOSE, FASTING 175 MG/DL (74-106); HDL CHOLESTEROL 31.2 MG/DL (>40); LDL CHOLESTEROL 63.6 MG/DL (<100); NON-HDL-C 78.8 MG/DL; POTASSIUM SERUM 4.7 MMOL/L (3.5-5.1); SODIUM LEVEL 144 MMOL/L (136-145); TOTAL PROTEIN 6.3 G/DL (5.7-8.2); TRIGLYCERIDES LEVEL 76 MG/DL (<150)
[2023-06-01 10:01] LABS: THYROID STIMULATING HORMONE 3.141 uIU/ML (0.55-4.78)
[2023-06-01 10:02] LABS: FREE T4 1.18 NG/DL (0.89-1.76)
== END ==
LOC: M LAB 08:29
PROVIDERS: ATTEND Nurse Practitioner Family
DX: M47.12 Other spondylosis with myelopathy, cervical region (principal); M54.50 Low back pain, unspecified; G47.33 Obstructive sleep apnea (adult) (pediatric); R79.89 Other specified abnormal findings of blood chemistry; E11.9 Type 2 diabetes mellitus without complications

== ENCOUNTER → 2023-06-01 | Outpatient (CLI) | payer OTHER ==
[2023-06-01 09:36] LABS: HEMATOCRIT 46.3 % (42.0-52.0); HEMOGLOBIN 16.4 g/dl (13.5-17.5); MEAN CORPUSCULAR HEMOGLOBIN 31.3 pg (27.0-33.0); MEAN CORPUSCULAR HGB CONC 35.4 g/dl (32.0-36.5); MEAN CORPUSCULAR VOLUME 88.4 fl (80.0-96.0); PLATELET COUNT, AUTOMATED 149 10^3/uL (150-450); RED BLOOD COUNT 5.24 10^6/uL (4.30-6.10); WHITE BLOOD COUNT 6.3 10^3/uL (4.0-10.0)
[2023-06-01 09:59] LABS: ALBUMIN 3.8 G/DL (3.2-5.2); ALKALINE PHOSPHATASE 104 U/L (46-116); ALT/SGPT 29 U/L (7.0-40); AST/SGOT 13 U/L (<34); BILIRUBIN,TOTAL 0.8 MG/DL (0.3-1.2); BLOOD UREA NITROGEN 17 MG/DL (9-23); CALCIUM LEVEL 8.7 MG/DL (8.3-10.6); CARBON DIOXIDE LEVEL 28 MMOL/L (20-31); CHLORIDE LEVEL 107 MMOL/L (98-107); CREATININE FOR GFR 0.89 MG/DL (0.70-1.30); GLOMERULAR FILTRATION RATE > 60.0 (>49); GLUCOSE, FASTING 175 MG/DL (74-106); POTASSIUM SERUM 4.6 MMOL/L (3.5-5.1); SODIUM LEVEL 144 MMOL/L (136-145); TOTAL PROTEIN 6.3 G/DL (5.7-8.2)
[2023-06-03 13:07] LABS: PSA TOTAL 0.4 ng/mL (0.0-4.0); TESTOSTERONE FREE (DIRECT) 10.1 pg/mL (6.6-18.1)
== END ==
LOC: M LAB 08:31
PROVIDERS: ATTEND Urology
DX: R79.89 Other specified abnormal findings of blood chemistry (principal)

== ENCOUNTER → 2023-06-01 | Outpatient (CLI) | payer OTHER ==
[2023-06-01 09:58] LABS: CREATININE, URINE 216.2 MG/DL; MAU/CREAT RATIO 12.9 MCG/MG (0.0-30.0)
[2023-06-01 10:02] LABS: CHOLESTEROL RISK RATIO 3.46 (<5); HDL CHOLESTEROL 31.2 MG/DL (>40); LDL CHOLESTEROL 63.2 MG/DL (<100); NON-HDL-C 76.8 MG/DL; THYROID STIMULATING HORMONE 3.187 uIU/ML (0.55-4.78)
== END ==
LOC: M LAB 08:27
PROVIDERS: ATTEND Physician Assistant
DX: E11.65 Type 2 diabetes mellitus with hyperglycemia (principal); Z79.4 Long term (current) use of insulin

== ENCOUNTER → 2023-06-10 | Outpatient (REF) | payer OTHER ==
[~2023-06-10] MED LIST changes: -INSU100I36 SC; +INSU100I60 SC
[2023-06-10 14:25] LABS: C REACTIVE PROTEIN QUANTITATIV < 0.40 MG/DL (<1.0)
[2023-06-10 14:30] LABS: RHEUMATOID FACTOR QUANT 9.5 IU/ML (<14)
== END ==
LOC: M LAB REF 13:04
PROVIDERS: ATTEND Nurse Practitioner Adult Health
DX: R06.02 Shortness of breath (principal)
CPT/HCPCS: 82164; 85652; 86037; 86038; 86140; 86200; 86235; 86331; 86431; 86602; 86606; 86671; 94010; G0463

== ENCOUNTER → 2023-06-12 | Outpatient (CLI) | payer OTHER | LOC: M RAD 08:09 | PROVIDERS: ATTEND Nurse Practitioner Family | DX: K80.20 Calculus of gallbladder without cholecystitis without obstruction (principal); R16.1 Splenomegaly, not elsewhere classified ==

== ENCOUNTER → 2023-07-04 | Outpatient (CLI) | payer OTHER ==
[2023-07-05 12:07] LABS: SSA SJOGRENS A <0.2 AI (0.0-0.9); SSB SJOGRENS B <0.2 AI (0.0-0.9)
== END ==
LOC: M LAB 12:12
PROVIDERS: ATTEND Nurse Practitioner Adult Health
DX: J84.9 Interstitial pulmonary disease, unspecified (principal)

== ENCOUNTER → 2023-07-10 | Outpatient (CLI) | payer OTHER ==
[~2023-07-10] MED LIST changes: +METHACHOLINE KIT INH ONE
== END ==
LOC: M CARPUL 10:38
PROVIDERS: ATTEND Nurse Practitioner Adult Health
DX: R06.02 Shortness of breath (principal)

== ENCOUNTER 2023-07-18 17:38 | Inpatient (IN) | payer OTHER ==
[~2023-07-18] VITALS: Ht 177.8 cm; Wt 114.8 kg
[~2023-07-18 17:38] MED LIST changes: -METHACHOLINE KIT INH ONE
[2023-07-18] MEDS ORDERED: NS 1,000 ML IV ONE (18:15)
[2023-07-18] MEDS ORDERED: SUCRALFATE SUSP 1GM/10ML UD PO ONE (18:15)
[2023-07-18] MEDS ORDERED: METOCLOPRAMIDE INJ 10MG/2ML VIAL IV ONE (18:15)
[2023-07-18] MEDS ORDERED: PANTOPRAZOLE 40MG VIAL IV ONE (18:15)
[2023-07-18 18:35] LABS: BASO % 0.2 % (0.0-1.0); EOS # 0.4 10^3/uL (0.0-0.5); EOS % 3.9 % (0.0-3.0); HEMATOCRIT 54.7 % (42.0-52.0); HEMOGLOBIN 18.8 g/dl (13.5-17.5); LYMPH # 2.7 10^3/uL (1.5-5.0); LYMPH % 27.1 % (24.0-44.0); MEAN CORPUSCULAR HEMOGLOBIN 29.9 pg (27.0-33.0); MEAN CORPUSCULAR HGB CONC 34.4 g/dl (32.0-36.5); MEAN CORPUSCULAR VOLUME 87.1 fl (80.0-96.0); MONO # 0.9 10^3/uL (0.0-0.8); MONO % 8.6 % (2.0-8.0); NEUTROPHILS # 5.9 10^3/uL (1.5-8.5); PLATELET COUNT, AUTOMATED 196 10^3/uL (150-450); RED BLOOD COUNT 6.28 10^6/uL (4.30-6.10); WHITE BLOOD COUNT 9.8 10^3/uL (4.0-10.0)
[2023-07-18 18:53] LABS: LIPASE 149 U/L (12-53)
[2023-07-18 18:55] LABS: ALBUMIN 3.8 G/DL (3.2-5.2); ALKALINE PHOSPHATASE 114 U/L (46-116); ALT/SGPT 57 U/L (7.0-40); AST/SGOT 28 U/L (<34); BILIRUBIN,DIRECT 0.3 MG/DL (<0.4); BILIRUBIN,TOTAL 0.9 MG/DL (0.3-1.2); BLOOD UREA NITROGEN 23 MG/DL (9-23); CALCIUM LEVEL 8.3 MG/DL (8.3-10.6); CARBON DIOXIDE LEVEL 21 MMOL/L (20-31); CHLORIDE LEVEL 109 MMOL/L (98-107); CREATININE FOR GFR 0.92 MG/DL (0.70-1.30); GLOMERULAR FILTRATION RATE > 60.0 (>49); GLUCOSE, FASTING 149 MG/DL (74-106); POTASSIUM SERUM 3.9 MMOL/L (3.5-5.1); SODIUM LEVEL 137 MMOL/L (136-145); TOTAL PROTEIN 6.6 G/DL (5.7-8.2)
[2023-07-18] MEDS ORDERED: ISOVUE-370 76% 100ML VIAL As Ordered ONE (19:10)
[2023-07-18] MEDS: LEVEMIR (INSULIN DETEMIR) 1 UNITS/0.01ML SC SCH (21:00)
[2023-07-18] MEDS ORDERED: ONDA4TAB6 PO (21:21)
[2023-07-18 21:50] LABS: RSV AMPLIFICATION NEGATIVE (NEGATIVE)
[2023-07-18] MEDS ORDERED: MORPHINE 4 MG/ML 1ML VIAL IV ONE (21:50)
[2023-07-18] MEDS ORDERED: ONDANSETRON 4MG 2ML VIAL IV ONE (21:50)
[2023-07-18] MEDS ORDERED: TIRZ10PE INJ (22:49)
[2023-07-18] MEDS ORDERED: PROBCAP14 PO (22:49)
[2023-07-18] MEDS ORDERED: JARD1TAB PO (22:49)
[2023-07-18] MEDS ORDERED: LANTINJ4 SC (22:49)
[2023-07-18] MEDS ORDERED: HOME MED LIST COMPLETE! XX SCH (22:50)
[2023-07-18] MEDS ORDERED: hydrALAZINE 20MG/ML 1ML VIAL IV PRN (23:50)
[2023-07-19] VITALS (10 sets, daily range): BP systolic 126–149; BP diastolic 68–71; TEMP 97.4–97.8; O2SAT 92–98
[2023-07-19] MEDS ORDERED: GLUCAGON INJ 1MG VIAL SC PRN (00:20)
[2023-07-19] MEDS ORDERED: NITROGLYCERIN 0.4MG SUBL TABLET SL PRN (00:20)
[2023-07-19] MEDS ORDERED: HYDROmorphone HCL 2MG/ML 1ML VIAL IV PRN ×2 (00:20→08:45)
[2023-07-19] MEDS ORDERED: NS 1,000 ML IV ONE (00:20)
[2023-07-19] MEDS ORDERED: LR 1,000 ML IV SCH (00:20)
[2023-07-19] MEDS ORDERED: GLUCOSE 4GM CHEW TABLET PO PRN (00:20)
[2023-07-19] MEDS ORDERED: ONDANSETRON 4MG 2ML VIAL IV PRN (00:20)
[2023-07-19] MEDS ORDERED: DEXTROSE 50% 50ML SYRINGE IV PRN (00:20)
[2023-07-19] MEDS: HYDROMORPHONE HCL 0.5 MG/ 0.5 ML SYRINGE IV PRN ×2 (01:37→06:32)
[2023-07-19] MEDS: HEPARIN SOD (PORCINE) 5000UNITS/ML 1ML VIAL/SYRINGE SC SCH ×3 (06:00→23:36)
[2023-07-19] MEDS: INSULIN LISPRO (NovoLOG) PER UNIT SC SCH ×4 (06:00→23:36)
[2023-07-19] MEDS: LEVOTHYROXINE 137MCG TABLET (0.137MG) PO SCH (07:27)
[2023-07-19] MEDS: dilTIAZem 120MG **CD** CAPSULE PO SCH (08:22)
[2023-07-19] MEDS: LEVEMIR (INSULIN DETEMIR) 1 UNITS/0.01ML SC SCH (08:24)
[2023-07-19 08:39] LABS: HEMATOCRIT 47.2 % (42.0-52.0); MEAN CORPUSCULAR HEMOGLOBIN 30.8 pg (27.0-33.0); MEAN CORPUSCULAR HGB CONC 34.7 g/dl (32.0-36.5); MEAN CORPUSCULAR VOLUME 88.6 fl (80.0-96.0); PLATELET COUNT, AUTOMATED 165 10^3/uL (150-450); RED BLOOD COUNT 5.33 10^6/uL (4.30-6.10); WHITE BLOOD COUNT 8.1 10^3/uL (4.0-10.0)
[2023-07-19 08:40] LABS: HEMOGLOBIN 16.4 g/dl (13.5-17.5)
[2023-07-19] MEDS ORDERED: HYDROMORPHONE HCL 0.5 MG/ 0.5 ML SYRINGE IV PRN (08:45)
[2023-07-19] MEDS: D5W/0.9% SODIUM CHLORIDE 1,000 ML IV SCH (09:00)
[2023-07-19 09:01] LABS: URIC ACID 6.5 MG/DL (3.7-9.2)
[2023-07-19 09:02] LABS: LIPASE 22 U/L (12-53)
[2023-07-19 09:13] LABS: ALBUMIN 3.2 G/DL (3.2-5.2); ALKALINE PHOSPHATASE 96 U/L (46-116); ALT/SGPT 41 U/L (7.0-40); AST/SGOT 12 U/L (<34); BILIRUBIN,TOTAL 0.8 MG/DL (0.3-1.2); BLOOD UREA NITROGEN 22 MG/DL (9-23); CALCIUM LEVEL 7.7 MG/DL (8.3-10.6); CARBON DIOXIDE LEVEL 23 MMOL/L (20-31); CHLORIDE LEVEL 112 MMOL/L (98-107); GLOMERULAR FILTRATION RATE > 60.0 (>49); GLUCOSE, FASTING 111 MG/DL (74-106); MAGNESIUM LEVEL 1.9 MG/DL (1.8-2.4); PHOSPHORUS LEVEL 2.9 MG/DL (2.4-5.1); POTASSIUM SERUM 3.8 MMOL/L (3.5-5.1); SODIUM LEVEL 144 MMOL/L (136-145); TOTAL PROTEIN 5.5 G/DL (5.7-8.2); TRIGLYCERIDES LEVEL 78 MG/DL (<150)
[2023-07-20] VITALS (30 sets, daily range): BP systolic 120–148; BP diastolic 58–80; TEMP 97.2–98.3; O2SAT 93–99
[2023-07-20] MEDS: D5W/0.9% SODIUM CHLORIDE 1,000 ML IV SCH ×2 (04:30→18:14)
[2023-07-20 05:06] LABS: BASO % 0.5 % (0.0-1.0); EOS # 0.3 10^3/uL (0.0-0.5); EOS % 4.3 % (0.0-3.0); HEMATOCRIT 44.6 % (42.0-52.0); HEMOGLOBIN 15.6 g/dl (13.5-17.5); LYMPH # 1.5 10^3/uL (1.5-5.0); LYMPH % 25.9 % (24.0-44.0); MEAN CORPUSCULAR HEMOGLOBIN 30.6 pg (27.0-33.0); MEAN CORPUSCULAR VOLUME 87.5 fl (80.0-96.0); MONO # 0.5 10^3/uL (0.0-0.8); MONO % 7.8 % (2.0-8.0); NEUTROPHILS # 3.5 10^3/uL (1.5-8.5); NEUTROPHILS % 61.3 % (36.0-66.0); PLATELET COUNT, AUTOMATED 151 10^3/uL (150-450); WHITE BLOOD COUNT 5.8 10^3/uL (4.0-10.0)
[2023-07-20 05:28] LABS: LIPASE 27 U/L (12-53)
[2023-07-20 05:29] LABS: BLOOD UREA NITROGEN 20 MG/DL (9-23); CALCIUM LEVEL 7.6 MG/DL (8.3-10.6); CARBON DIOXIDE LEVEL 24 MMOL/L (20-31); CHLORIDE LEVEL 113 MMOL/L (98-107); CREATININE FOR GFR 0.92 MG/DL (0.70-1.30); GLOMERULAR FILTRATION RATE > 60.0 (>49); GLUCOSE, FASTING 105 MG/DL (74-106); MAGNESIUM LEVEL 1.8 MG/DL (1.8-2.4); POTASSIUM SERUM 3.4 MMOL/L (3.5-5.1); SODIUM LEVEL 143 MMOL/L (136-145)
[2023-07-20] MEDS: INSULIN LISPRO (NovoLOG) PER UNIT SC SCH ×4 (06:00→20:30)
[2023-07-20] MEDS: LEVOTHYROXINE 137MCG TABLET (0.137MG) PO SCH (06:23)
[2023-07-20] MEDS: HEPARIN SOD (PORCINE) 5000UNITS/ML 1ML VIAL/SYRINGE SC SCH ×3 (06:24→20:30)
[2023-07-20] MEDS ORDERED: KCL 10MEQ/100ML SWI (KRUN) 10 MEQ in IV 1 EA IV ONE (07:35)
[2023-07-20] MEDS ORDERED: ALBUTEROL 90 MCG/ACT 8GM HFA INHALER INH PRN (09:05)
[2023-07-20] MEDS: dilTIAZem 120MG **CD** CAPSULE PO SCH (09:33)
[2023-07-20] MEDS ORDERED: DEXTROSE 50% 50ML SYRINGE IV PRN (14:50)
[2023-07-20] MEDS ORDERED: GLUCAGON INJ 1MG VIAL SC PRN (14:50)
[2023-07-20] MEDS ORDERED: GLUCOSE 4GM CHEW TABLET PO PRN (14:50)
[2023-07-20] MEDS: ASPIRIN 81MG ENTERIC TABLET PO SCH (20:29)
[2023-07-20] MEDS: ATORVASTATIN 20 MG TAB PO SCH (20:29)
[2023-07-20] MEDS: LOSARTAN 50MG TABLET PO SCH (20:30)
[2023-07-21] VITALS (11 sets, daily range): BP systolic 124–147; BP diastolic 66–72; TEMP 97.4–97.6; O2SAT 94–99
[2023-07-21] MEDS: HEPARIN SOD (PORCINE) 5000UNITS/ML 1ML VIAL/SYRINGE SC SCH ×3 (06:10→21:26)
[2023-07-21] MEDS: LEVOTHYROXINE 137MCG TABLET (0.137MG) PO SCH (06:10)
[2023-07-21 07:08] LABS: BASO % 0.2 % (0.0-1.0); EOS # 0.2 10^3/uL (0.0-0.5); EOS % 4.3 % (0.0-3.0); HEMOGLOBIN 15.2 g/dl (13.5-17.5); LYMPH # 1.7 10^3/uL (1.5-5.0); LYMPH % 35.8 % (24.0-44.0); MEAN CORPUSCULAR HEMOGLOBIN 30.3 pg (27.0-33.0); MEAN CORPUSCULAR HGB CONC 35.3 g/dl (32.0-36.5); MEAN CORPUSCULAR VOLUME 85.7 fl (80.0-96.0); MONO # 0.4 10^3/uL (0.0-0.8); MONO % 8.8 % (2.0-8.0); NEUTROPHILS # 2.5 10^3/uL (1.5-8.5); NEUTROPHILS % 50.7 % (36.0-66.0); PLATELET COUNT, AUTOMATED 146 10^3/uL (150-450); RED BLOOD COUNT 5.02 10^6/uL (4.30-6.10); WHITE BLOOD COUNT 4.9 10^3/uL (4.0-10.0)
[2023-07-21 07:36] LABS: BLOOD UREA NITROGEN 10 MG/DL (9-23); CALCIUM LEVEL 8.1 MG/DL (8.3-10.6); CARBON DIOXIDE LEVEL 27 MMOL/L (20-31); CHLORIDE LEVEL 107 MMOL/L (98-107); CREATININE FOR GFR 0.93 MG/DL (0.70-1.30); GLOMERULAR FILTRATION RATE > 60.0 (>49); GLUCOSE, FASTING 133 MG/DL (74-106); MAGNESIUM LEVEL 1.7 MG/DL (1.8-2.4); POTASSIUM SERUM 3.3 MMOL/L (3.5-5.1); SODIUM LEVEL 140 MMOL/L (136-145)
[2023-07-21] MEDS: dilTIAZem 120MG **CD** CAPSULE PO SCH (08:19)
[2023-07-21] MEDS: INSULIN LISPRO (NovoLOG) PER UNIT SC SCH ×4 (08:19→21:00)
[2023-07-21] MEDS ORDERED: KCL 10MEQ/100ML SWI (KRUN) 10 MEQ in IV 1 EA IV SCH (19:00)
[2023-07-21] MEDS ORDERED: POTASSIUM CHLORIDE 10% LIQ 20MEQ/15ML UDC PO SCH (21:00)
[2023-07-21] MEDS: LOSARTAN 50MG TABLET PO SCH (21:24)
[2023-07-21] MEDS: MAGNESIUM OXIDE 400MG TAB (MAG-OX) PO SCH (21:25)
[2023-07-21] MEDS: ATORVASTATIN 20 MG TAB PO SCH (21:25)
[2023-07-21] MEDS: ASPIRIN 81MG ENTERIC TABLET PO SCH (21:25)
[2023-07-22 04:44] VITALS: BP 118/57; TEMP 97.8; O2SAT 96
[2023-07-22] MEDS: LEVOTHYROXINE 137MCG TABLET (0.137MG) PO SCH (06:07)
[2023-07-22] MEDS: HEPARIN SOD (PORCINE) 5000UNITS/ML 1ML VIAL/SYRINGE SC SCH (06:08)
[2023-07-22 06:48] LABS: BASO % 0.6 % (0.0-1.0); EOS # 0.3 10^3/uL (0.0-0.5); EOS % 5.8 % (0.0-3.0); HEMATOCRIT 43.9 % (42.0-52.0); HEMOGLOBIN 15.5 g/dl (13.5-17.5); LYMPH # 1.9 10^3/uL (1.5-5.0); LYMPH % 39.2 % (24.0-44.0); MEAN CORPUSCULAR HEMOGLOBIN 30.1 pg (27.0-33.0); MEAN CORPUSCULAR HGB CONC 35.3 g/dl (32.0-36.5); MEAN CORPUSCULAR VOLUME 85.2 fl (80.0-96.0); MONO # 0.4 10^3/uL (0.0-0.8); MONO % 8.7 % (2.0-8.0); NEUTROPHILS # 2.2 10^3/uL (1.5-8.5); NEUTROPHILS % 45.3 % (36.0-66.0); PLATELET COUNT, AUTOMATED 155 10^3/uL (150-450); RED BLOOD COUNT 5.15 10^6/uL (4.30-6.10); WHITE BLOOD COUNT 4.9 10^3/uL (4.0-10.0)
[2023-07-22 07:15] LABS: BLOOD UREA NITROGEN 10 MG/DL (9-23); CALCIUM LEVEL 8.2 MG/DL (8.3-10.6); CARBON DIOXIDE LEVEL 26 MMOL/L (20-31); CHLORIDE LEVEL 108 MMOL/L (98-107); CREATININE FOR GFR 0.89 MG/DL (0.70-1.30); GLOMERULAR FILTRATION RATE > 60.0 (>49); GLUCOSE, FASTING 155 MG/DL (74-106); MAGNESIUM LEVEL 1.8 MG/DL (1.8-2.4); POTASSIUM SERUM 3.7 MMOL/L (3.5-5.1); SODIUM LEVEL 141 MMOL/L (136-145)
[2023-07-22 07:42] VITALS: BP 115/58; TEMP 98; O2SAT 96
[2023-07-22] MEDS: INSULIN LISPRO (NovoLOG) PER UNIT SC SCH ×2 (08:57→13:14)
[2023-07-22 08:58] VITALS: BP 115/58
[2023-07-22] MEDS: MAGNESIUM OXIDE 400MG TAB (MAG-OX) PO SCH (08:58)
[2023-07-22] MEDS: dilTIAZem 120MG **CD** CAPSULE PO SCH (08:58)
[2023-07-22] MEDS: LEVEMIR (INSULIN DETEMIR) 1 UNITS/0.01ML SC SCH (08:58)
[2023-07-22] MEDS ORDERED: POTASSIUM CHLORIDE 10MEQ SR TABLET PO ONE (09:00)
== END 2023-07-22 14:17 | disposition home or self-care (01) | DRG 440 ==
LOC: M ED 17:38 → M ED INP 23:47 → M PCU 07-19 14:15
PROVIDERS: ADMIT Internal Medicine; ATTEND Student in an Organized Health Care Education/Training Program
DX: K85.30 Drug induced acute pancreatitis without necrosis or infection (principal); E11.9 Type 2 diabetes mellitus without complications; F32.A Depression, unspecified; I25.10 Atherosclerotic heart disease of native coronary artery without angina pectoris; E83.42 Hypomagnesemia; I10 Essential (primary) hypertension; J45.909 Unspecified asthma, uncomplicated; E03.9 Hypothyroidism, unspecified; E87.6 Hypokalemia; K21.9 Gastro-esophageal reflux disease without esophagitis; T50.905A Adverse effect of unspecified drugs, medicaments and biological substances, initial encounter; Z90.49 Acquired absence of other specified parts of digestive tract; Z87.891 Personal history of nicotine dependence; Z79.4 Long term (current) use of insulin; Z79.82 Long term (current) use of aspirin; Z79.890 Hormone replacement therapy; Z79.899 Other long term (current) drug therapy; Z95.1 Presence of aortocoronary bypass graft; Z88.0 Allergy status to penicillin; Z88.8 Allergy status to other drugs, medicaments and biological substances; Z91.018 Allergy to other foods

== ENCOUNTER → 2023-09-10 | Outpatient (CLI) | payer OTHER ==
[~2023-09-10] MED LIST changes: -ASPI-161 PO; +ASPI-615 PO; +JARD1TAB PO; +LANTINJ4 SC; +PROBCAP14 PO; +TIRZ10PE INJ
== END ==
LOC: M SOG 07:58
PROVIDERS: ATTEND Orthopaedic Surgery
DX: M25.511 Pain in right shoulder (principal)

== ENCOUNTER 2023-10-10 13:27 | Observation (INO) | payer OTHER ==
[~2023-10-10] VITALS: Ht 177.8 cm; Wt 118.5 kg
[2023-10-10 14:16] LABS: BASO # 0.1 10^3/uL (0.0-0.2); BASO % 0.4 % (0.0-1.0); EOS # 0.1 10^3/uL (0.0-0.5); EOS % 0.7 % (0.0-3.0); HEMATOCRIT 51.2 % (42.0-52.0); HEMOGLOBIN 17.9 g/dl (13.5-17.5); LYMPH # 0.6 10^3/uL (1.5-5.0); LYMPH % 4.6 % (24.0-44.0); MEAN CORPUSCULAR HEMOGLOBIN 30.1 pg (27.0-33.0); MEAN CORPUSCULAR VOLUME 86.2 fl (80.0-96.0); MONO # 0.4 10^3/uL (0.0-0.8); MONO % 3.5 % (2.0-8.0); NEUTROPHILS # 11.1 10^3/uL (1.5-8.5); NEUTROPHILS % 90.4 % (36.0-66.0); PLATELET COUNT, AUTOMATED 151 10^3/uL (150-450); RED BLOOD COUNT 5.94 10^6/uL (4.30-6.10); WHITE BLOOD COUNT 12.3 10^3/uL (4.0-10.0)
[2023-10-10 14:30] LABS: INR 1.02; PARTIAL THROMBOPLASTIN TIME 26.5 SECONDS (24.8-34.2); PROTHROMBIN TIME 13.1 SECONDS (12.5-14.5)
[2023-10-10] MEDS: NITROGLYCERIN 0.4MG SUBL TABLET SL STA (14:38)
[2023-10-10 14:39] LABS: LIPASE 31 U/L (12-53)
[2023-10-10 14:41] LABS: ALBUMIN 3.9 G/DL (3.2-5.2); ALKALINE PHOSPHATASE 94 U/L (46-116); ALT/SGPT 32 U/L (7.0-40); AST/SGOT 15 U/L (<34); BILIRUBIN,DIRECT 0.4 MG/DL (<0.4); BILIRUBIN,TOTAL 1.1 MG/DL (0.3-1.2); BLOOD UREA NITROGEN 26 MG/DL (9-23); CALCIUM LEVEL 8.7 MG/DL (8.3-10.6); CARBON DIOXIDE LEVEL 22 MMOL/L (20-31); CHLORIDE LEVEL 110 MMOL/L (98-107); CK-MB VALUE MASS 2.7 NG/ML (<3.6); CPK CREATINE PHOSPHOKINASE 153 U/L (46-171); CREATININE FOR GFR 0.81 MG/DL (0.70-1.30); GLOMERULAR FILTRATION RATE > 60.0 (>49); GLUCOSE, FASTING 138 MG/DL (74-106); MB/CK RELATIVE INDEX 1.76 (< OR =4); POTASSIUM SERUM 4.3 MMOL/L (3.5-5.1); SODIUM LEVEL 139 MMOL/L (136-145); TOTAL PROTEIN 6.5 G/DL (5.7-8.2)
[2023-10-10 14:45] LABS: FREE T4 0.93 NG/DL (0.89-1.76)
[2023-10-10 14:46] LABS: THYROID STIMULATING HORMONE 3.002 uIU/ML (0.55-4.78)
[2023-10-10] MEDS: MORPHINE 4 MG/ML 1ML VIAL IV ONE (14:48)
[2023-10-10] MEDS ORDERED: ISOVUE-370 76% 100ML VIAL As Ordered ONE (14:56)
[2023-10-10] MEDS: fentaNYL 100 MCG/2 ML INJECTION IV ONE (15:05)
[2023-10-10] MEDS: HYDROMORPHONE HCL 0.5 MG/ 0.5 ML SYRINGE IV ONE (16:15)
[2023-10-10 16:56] LABS: CK-MB VALUE MASS 2.4 NG/ML (<3.6); MB/CK RELATIVE INDEX 1.98 (< OR =4)
[2023-10-10] MEDS: PANTOPRAZOLE 40MG VIAL IV ONE (17:52)
[2023-10-10] MEDS: SUCRALFATE 1 GM TAB PO ONE (17:59)
[2023-10-10] MEDS: MAALOX 30 ML SUSP *UDC PO ONE (17:59)
[2023-10-10] MEDS: ONDANSETRON 4MG 2ML VIAL IV ONE (18:00)
[2023-10-10] MEDS ORDERED: ACETAMINOPHEN TAB 650MG DOSE (2X325MG) PO PRN (20:20)
[2023-10-10] MEDS ORDERED: MAALOX 30 ML SUSP *UDC PO PRN (20:20)
[2023-10-10] MEDS ORDERED: MOM 30ML SUSPENSION UDC PO PRN (20:20)
[2023-10-10] MEDS ORDERED: NITROGLYCERIN 0.4MG SUBL TABLET SL PRN (20:20)
[2023-10-10] MEDS ORDERED: ALPRAZolam 0.25 MG TAB PO PRN (20:25)
[2023-10-10] MEDS ORDERED: ONDANSETRON 4MG 2ML VIAL IV PRN (20:25)
[2023-10-10] MEDS: INSULIN LISPRO (NovoLOG) PER UNIT SC SCH (21:00)
[2023-10-10] MEDS: DOCUSATE SODIUM 100MG CAPSULE PO SCH (21:00)
[2023-10-10] MEDS: LEVEMIR (INSULIN DETEMIR) 1 UNITS/0.01ML SC SCH (21:00)
[2023-10-10] MEDS ORDERED: CO Q200C10 PO (21:17)
[2023-10-10] MEDS ORDERED: ACIDCAP PO (21:17)
[2023-10-10] MEDS ORDERED: HOME MED LIST COMPLETE! XX SCH (21:25)
[2023-10-10] MEDS ORDERED: DEXTROSE 50% 50ML SYRINGE IV PRN (21:25)
[2023-10-10] MEDS ORDERED: GLUCOSE 4GM CHEW TABLET PO PRN (21:25)
[2023-10-10] MEDS ORDERED: GLUCAGON INJ 1MG VIAL SC PRN (21:25)
[2023-10-10] MEDS ORDERED: MORPHINE 4 MG/ML 1ML VIAL IV PRN (21:45)
[2023-10-10] MEDS ORDERED: ALBUTEROL 90 MCG/ACT 8GM HFA INHALER INH PRN (21:45)
[2023-10-10] MEDS: PANTOPRAZOLE 40MG TAB (PROTONIX) PO SCH (22:24)
[2023-10-10] MEDS: ASPIRIN 81MG ENTERIC TABLET PO SCH (22:24)
[2023-10-10] MEDS: ATORVASTATIN 20 MG TAB PO SCH (22:24)
[2023-10-10] MEDS: ENOXAPARIN 40MG/0.4ML SYRINGE (J1650 PER 10MG) SC SCH (22:25)
[2023-10-10] MEDS: LOSARTAN 50MG TABLET PO SCH (22:25)
[2023-10-11] VITALS (11 sets, daily range): BP systolic 115–133; BP diastolic 61–63; TEMP 98–98.7; O2SAT 89–99
[2023-10-11] MEDS: LEVOTHYROXINE 137MCG TABLET (0.137MG) PO SCH (06:37)
[2023-10-11] MEDS ORDERED: PERCOCET 5MG/325MG TAB PO PRN (06:50)
[2023-10-11] MEDS ORDERED: MORPHINE 2 MG/ML 1ML VIAL IV PRN (06:50)
[2023-10-11] MEDS: INSULIN LISPRO (NovoLOG) PER UNIT SC SCH (07:30)
[2023-10-11 08:15] LABS: ALBUMIN 3.4 G/DL (3.2-5.2); ALKALINE PHOSPHATASE 83 U/L (46-116); ALT/SGPT 27 U/L (7.0-40); AST/SGOT 18 U/L (<34); BLOOD UREA NITROGEN 30 MG/DL (9-23); CALCIUM LEVEL 8.1 MG/DL (8.3-10.6); CARBON DIOXIDE LEVEL 27 MMOL/L (20-31); CHLORIDE LEVEL 106 MMOL/L (98-107); CHOLESTEROL LEVEL 99 MG/DL (<200); CHOLESTEROL RISK RATIO 3.76 (<5); CREATININE FOR GFR 1.03 MG/DL (0.70-1.30); GLOMERULAR FILTRATION RATE > 60.0 (>49); GLUCOSE, FASTING 112 MG/DL (74-106); HDL CHOLESTEROL 26.3 MG/DL (>40); LDL CHOLESTEROL 41.9 MG/DL (<100); MAGNESIUM LEVEL 2.1 MG/DL (1.8-2.4); NON-HDL-C 72.7 MG/DL; POTASSIUM SERUM 3.8 MMOL/L (3.5-5.1); SODIUM LEVEL 136 MMOL/L (136-145); TOTAL PROTEIN 5.8 G/DL (5.7-8.2); TRIGLYCERIDES LEVEL 154 MG/DL (<150)
[2023-10-11] MEDS: CETIRIZINE (ZyrTEC) 10 MG TAB PO SCH (10:24)
[2023-10-12 02:00] VITALS: BP 131/61; TEMP 97.7; O2SAT 97
[2023-10-12 06:00] VITALS: BP 133/63; TEMP 97.9; O2SAT 97
[2023-10-12 06:44] LABS: HEMATOCRIT 46.5 % (42.0-52.0); MEAN CORPUSCULAR HEMOGLOBIN 30.3 pg (27.0-33.0); MEAN CORPUSCULAR HGB CONC 33.3 g/dl (32.0-36.5); PLATELET COUNT, AUTOMATED 144 10^3/uL (150-450); RED BLOOD COUNT 5.11 10^6/uL (4.30-6.10)
[2023-10-12 06:49] LABS: ALBUMIN 3.5 G/DL (3.2-5.2); ALKALINE PHOSPHATASE 86 U/L (46-116); ALT/SGPT 32 U/L (7.0-40); AST/SGOT 19 U/L (<34); BILIRUBIN,TOTAL 0.7 MG/DL (0.3-1.2); BLOOD UREA NITROGEN 20 MG/DL (9-23); CALCIUM LEVEL 8.1 MG/DL (8.3-10.6); CARBON DIOXIDE LEVEL 30 MMOL/L (20-31); CHLORIDE LEVEL 106 MMOL/L (98-107); CK-MB VALUE MASS 2.2 NG/ML (<3.6); CREATININE FOR GFR 1.04 MG/DL (0.70-1.30); GLOMERULAR FILTRATION RATE > 60.0 (>49); GLUCOSE, FASTING 124 MG/DL (74-106); SODIUM LEVEL 141 MMOL/L (136-145); TOTAL PROTEIN 5.9 G/DL (5.7-8.2)
[2023-10-12 06:51] LABS: MB/CK RELATIVE INDEX 1.41 (< OR =4)
[2023-10-12 06:52] LABS: HEMOGLOBIN 15.5 g/dl (13.5-17.5)
[2023-10-12] MEDS: ENOXAPARIN 40MG/0.4ML SYRINGE (J1650 PER 10MG) SC SCH (08:53)
[2023-10-12 08:58] VITALS: O2SAT 92
[2023-10-12] MEDS: LOPERAMIDE 2 MG CAPLET PO PRN (08:58)
[2023-10-12 09:50] VITALS: BP 111/52; TEMP 97.8; O2SAT 92
[2023-10-12 14:05] VITALS: BP 126/58; TEMP 98.1; O2SAT 95
[2023-10-12 18:37] VITALS: BP 138/65; TEMP 97.8; O2SAT 96
== END 2023-10-12 19:48 | disposition home or self-care (01) ==
LOC: EDBD 13:27 → M ED 13:27 → M ED INP 13:28 → M MS4PR 10-11 13:08
PROVIDERS: ADMIT Preventive Medicine Undersea and Hyperbaric Medicine; ATTEND Internal Medicine
DX: R07.89 Other chest pain (principal); R42 Dizziness and giddiness; R20.2 Paresthesia of skin; R19.7 Diarrhea, unspecified; R10.11 Right upper quadrant pain; E11.9 Type 2 diabetes mellitus without complications; G47.33 Obstructive sleep apnea (adult) (pediatric); I25.10 Atherosclerotic heart disease of native coronary artery without angina pectoris; Z98.61 Coronary angioplasty status; Z95.0 Presence of cardiac pacemaker; F41.9 Anxiety disorder, unspecified; Z79.82 Long term (current) use of aspirin; Z79.4 Long term (current) use of insulin; Z79.899 Other long term (current) drug therapy; Z91.018 Allergy to other foods; Z88.0 Allergy status to penicillin; Z88.2 Allergy status to sulfonamides; Z88.8 Allergy status to other drugs, medicaments and biological substances
CPT/HCPCS: 36415; 70450; 70496; 70498; 71045; 71260; 74177; 76705; 80048; 80053; 80061; 80076; 82550; 82553; 83690; 83735; 83880; 84439; 84443; 84484; 85025; 85027; 85610; 85730; 93005; 93041; 94760; 96372; 96374; 96375; 97161; 99285; C9113; J1170; J1650; J1815; J2405; J3010; Q9967

== ENCOUNTER → 2023-10-23 | Outpatient (CLI) | payer OTHER ==
[~2023-10-23] MED LIST changes: +ACIDCAP PO; +CO Q200C10 PO
== END ==
LOC: M SOG 13:00
PROVIDERS: ATTEND Orthopaedic Surgery
DX: M25.511 Pain in right shoulder (principal)

== ENCOUNTER 2024-01-01 20:00 | Emergency (ER) | payer OTHER ==
[~2024-01-01] VITALS: Ht 177.8 cm; Wt 120.5 kg
[2024-01-01 20:00] VITALS: TEMP 98.1
[~2024-01-01 20:00] MED LIST changes: +ONDA-282 PO; -ONDA4TAB6 PO
[2024-01-01 20:47] LABS: BASO # 0.1 10^3/uL (0.0-0.2); BASO % 0.5 % (0.0-1.0); EOS # 0.1 10^3/uL (0.0-0.5); EOS % 0.7 % (0.0-3.0); HEMATOCRIT 52.4 % (42.0-52.0); HEMOGLOBIN 18.3 g/dl (13.5-17.5); LYMPH # 2.7 10^3/uL (1.5-5.0); MEAN CORPUSCULAR HEMOGLOBIN 30.6 pg (27.0-33.0); MEAN CORPUSCULAR HGB CONC 34.9 g/dl (32.0-36.5); MEAN CORPUSCULAR VOLUME 87.6 fl (80.0-96.0); MONO # 0.7 10^3/uL (0.0-0.8); MONO % 7.1 % (2.0-8.0); NEUTROPHILS # 6.9 10^3/uL (1.5-8.5); NEUTROPHILS % 65.4 % (36.0-66.0); PLATELET COUNT, AUTOMATED 167 10^3/uL (150-450); RED BLOOD COUNT 5.98 10^6/uL (4.30-6.10); WHITE BLOOD COUNT 10.5 10^3/uL (4.0-10.0)
[2024-01-01] MEDS: KETOROLAC 30 MG/ML 1ML VIAL IV ONE (20:47)
[2024-01-01 21:17] LABS: LIPASE 34 U/L (12-53)
[2024-01-01 21:21] LABS: ALBUMIN 4.4 G/DL (3.2-5.2); ALKALINE PHOSPHATASE 110 U/L (46-116); ALT/SGPT 37 U/L (7.0-40); AST/SGOT 24 U/L (<34); BILIRUBIN,DIRECT 0.2 MG/DL (<0.4); BILIRUBIN,TOTAL 0.8 MG/DL (0.3-1.2); BLOOD UREA NITROGEN 18 MG/DL (9-23); CALCIUM LEVEL 9.4 MG/DL (8.3-10.6); CARBON DIOXIDE LEVEL 25 MMOL/L (20-31); CHLORIDE LEVEL 110 MMOL/L (98-107); CREATININE FOR GFR 0.85 MG/DL (0.70-1.30); GLOMERULAR FILTRATION RATE > 60.0 (>49); GLUCOSE, FASTING 98 MG/DL (74-106); POTASSIUM SERUM 4.2 MMOL/L (3.5-5.1); SODIUM LEVEL 144 MMOL/L (136-145); TOTAL PROTEIN 7.2 G/DL (5.7-8.2)
[2024-01-01] MEDS: MORPHINE 2 MG/ML 1ML VIAL IV ONE (21:56)
[2024-01-01] MEDS ORDERED: ONDA-282 PO (22:52)
[2024-01-01] MEDS ORDERED: PERC5TAB12 PO (22:52)
[2024-01-01] MEDS: OXYCODONE/APAP 5MG/325MG(HOME DOSE PACK) PO ONE (23:15)
[2024-01-01] MEDS: ONDANSETRON 4MG ORAL DISINTEGRATING TAB PO ONE (23:15)
[2024-01-01 23:16] VITALS: BP 135/72; O2SAT 96
[2024-01-01] MEDS: PERCOCET 5MG/325MG TAB PO ONE (23:16)
== END 2024-01-01 23:22 | disposition home or self-care (01) ==
LOC: M ED 20:00
DX: K80.66 Calculus of gallbladder and bile duct with acute and chronic cholecystitis without obstruction (principal); K76.0 Fatty (change of) liver, not elsewhere classified; Z87.442 Personal history of urinary calculi; Z86.79 Personal history of other diseases of the circulatory system; Z90.89 Acquired absence of other organs; Z88.1 Allergy status to other antibiotic agents; Z88.2 Allergy status to sulfonamides; Z88.8 Allergy status to other drugs, medicaments and biological substances; Z79.52 Long term (current) use of systemic steroids; Z79.82 Long term (current) use of aspirin; Z79.02 Long term (current) use of antithrombotics/antiplatelets; Z79.811 Long term (current) use of aromatase inhibitors; Z79.83 Long term (current) use of bisphosphonates; Z79.899 Other long term (current) drug therapy
CPT/HCPCS: 76705; 80048; 80076; 83690; 85025; 93041; 96374; 96375; 99284; J1885

== ENCOUNTER 2024-01-17 04:19 | Emergency (ER) | payer OTHER ==
[~2024-01-17 04:19] MED LIST changes: +PERC5TAB12 PO
[2024-01-17 05:15] LABS: BASO # 0.1 10^3/uL (0.0-0.2); BASO % 0.9 % (0.0-1.0); EOS # 0.2 10^3/uL (0.0-0.5); EOS % 2.4 % (0.0-3.0); HEMATOCRIT 45.8 % (42.0-52.0); HEMOGLOBIN 15.9 g/dl (13.5-17.5); LYMPH # 2.2 10^3/uL (1.5-5.0); LYMPH % 32.6 % (24.0-44.0); MEAN CORPUSCULAR HEMOGLOBIN 30.4 pg (27.0-33.0); MEAN CORPUSCULAR HGB CONC 34.7 g/dl (32.0-36.5); MEAN CORPUSCULAR VOLUME 87.6 fl (80.0-96.0); MONO # 0.6 10^3/uL (0.0-0.8); MONO % 8.6 % (2.0-8.0); NEUTROPHILS # 3.7 10^3/uL (1.5-8.5); NEUTROPHILS % 55.1 % (36.0-66.0); PLATELET COUNT, AUTOMATED 158 10^3/uL (150-450); RED BLOOD COUNT 5.23 10^6/uL (4.30-6.10); WHITE BLOOD COUNT 6.7 10^3/uL (4.0-10.0)
[2024-01-17] MEDS: FAMOTIDINE 20MG/2ML VIAL IVP ONE (05:30)
[2024-01-17 05:39] LABS: CK-MB VALUE MASS 3.5 NG/ML (<3.6)
[2024-01-17] MEDS: ONDANSETRON 4MG 2ML VIAL IV ONE (05:40)
[2024-01-17 05:41] LABS: BLOOD UREA NITROGEN 28 MG/DL (9-23); CALCIUM LEVEL 8.6 MG/DL (8.3-10.6); CARBON DIOXIDE LEVEL 25 MMOL/L (20-31); CHLORIDE LEVEL 110 MMOL/L (98-107); CREATININE FOR GFR 0.79 MG/DL (0.70-1.30); GLOMERULAR FILTRATION RATE > 60.0 (>49); GLUCOSE, FASTING 203 MG/DL (74-106); POTASSIUM SERUM 3.7 MMOL/L (3.5-5.1); SODIUM LEVEL 143 MMOL/L (136-145)
[2024-01-17 05:42] LABS: CPK CREATINE PHOSPHOKINASE 232 U/L (46-171)
[2024-01-17] MEDS: MORPHINE 4 MG/ML 1ML VIAL IV ONE (05:43)
[2024-01-17] MEDS: NS 1,000 ML IV ONE (05:46)
[2024-01-17] MEDS ORDERED: ISOVUE-370 76% 100ML VIAL As Ordered ONE (06:03)
[2024-01-17 07:42] LABS: LIPASE 49 U/L (12-53)
[2024-01-17 07:44] LABS: ALBUMIN 3.8 G/DL (3.2-5.2); ALKALINE PHOSPHATASE 103 U/L (46-116); ALT/SGPT 28 U/L (7.0-40); AST/SGOT 11 U/L (<34); BILIRUBIN,DIRECT 0.2 MG/DL (<0.4); BILIRUBIN,TOTAL 0.6 MG/DL (0.3-1.2); TOTAL PROTEIN 6.1 G/DL (5.7-8.2)
[2024-01-17] MEDS ORDERED: PERC5TAB12 PO (09:03)
[2024-01-17 09:06] VITALS: BP 140/65; TEMP 96.3; O2SAT 96
== END 2024-01-17 09:22 | disposition home or self-care (01) ==
LOC: M ED 04:19 → EDBD 04:19 → M ED 09:22
DX: R07.9 Chest pain, unspecified (principal); I71.9 Aortic aneurysm of unspecified site, without rupture; K80.80 Other cholelithiasis without obstruction; R91.1 Solitary pulmonary nodule; I44.7 Left bundle-branch block, unspecified; I25.119 Atherosclerotic heart disease of native coronary artery with unspecified angina pectoris; I25.2 Old myocardial infarction; E11.9 Type 2 diabetes mellitus without complications; I10 Essential (primary) hypertension; E03.9 Hypothyroidism, unspecified; K21.9 Gastro-esophageal reflux disease without esophagitis; Z88.1 Allergy status to other antibiotic agents; Z88.8 Allergy status to other drugs, medicaments and biological substances; Z79.51 Long term (current) use of inhaled steroids; Z79.1 Long term (current) use of non-steroidal anti-inflammatories (NSAID); Z79.4 Long term (current) use of insulin; Z79.84 Long term (current) use of oral hypoglycemic drugs; Z79.899 Other long term (current) drug therapy
CPT/HCPCS: 71045; 71275; 80048; 80076; 82550; 82553; 83690; 84484; 85025; 87486; 87581; 87633; 87798; 93005; 93041; 94760; 96361; 96374; 96375; 99285; J2405; Q9967; S0028

== ENCOUNTER → 2024-01-30 | Outpatient (CLI) | payer OTHER ==
[~2024-01-30] MED LIST changes: +ISOVUE-300 61% 100ML VIAL As Ordered ONE; +LIDOCAINE 1% MDV 20ML VIAL As Ordered ONE
== END ==
LOC: M RAD 13:31
PROVIDERS: ATTEND Physician Assistant
DX: M25.512 Pain in left shoulder (principal); S46.012A Strain of muscle(s) and tendon(s) of the rotator cuff of left shoulder, initial encounter; X58.XXXA Exposure to other specified factors, initial encounter; Y92.9 Unspecified place or not applicable
CPT/HCPCS: 23350; 73201; 77002; Q9967

== ENCOUNTER → 2024-02-09 | Outpatient (CLI) | payer OTHER ==
[2024-02-09 18:02] LABS: HEMATOCRIT 48.5 % (42.0-52.0); HEMOGLOBIN 16.8 g/dl (13.5-17.5); MEAN CORPUSCULAR HEMOGLOBIN 30.7 pg (27.0-33.0); MEAN CORPUSCULAR HGB CONC 34.6 g/dl (32.0-36.5); MEAN CORPUSCULAR VOLUME 88.5 fl (80.0-96.0); PLATELET COUNT, AUTOMATED 176 10^3/uL (150-450); RED BLOOD COUNT 5.48 10^6/uL (4.30-6.10); WHITE BLOOD COUNT 6.6 10^3/uL (4.0-10.0)
[2024-02-09 18:26] LABS: ALBUMIN 4.1 G/DL (3.2-5.2); ALKALINE PHOSPHATASE 107 U/L (46-116); ALT/SGPT 24 U/L (7.0-40); AST/SGOT 12 U/L (<34); BILIRUBIN,TOTAL 0.6 MG/DL (0.3-1.2); BLOOD UREA NITROGEN 19 MG/DL (9-23); CALCIUM LEVEL 9.1 MG/DL (8.3-10.6); CARBON DIOXIDE LEVEL 27 MMOL/L (20-31); CHLORIDE LEVEL 108 MMOL/L (98-107); CREATININE FOR GFR 0.88 MG/DL (0.70-1.30); GLOMERULAR FILTRATION RATE > 60.0 (>49); GLUCOSE, FASTING 127 MG/DL (74-106); POTASSIUM SERUM 4.1 MMOL/L (3.5-5.1); SODIUM LEVEL 142 MMOL/L (136-145)
[2024-02-09 18:26] LABS: CREATININE, URINE 68.3 MG/DL
[2024-02-09 18:27] LABS: MALB URINE SIEMENS < 3.0 MG/L; MAU/CREAT RATIO 4.3 MCG/MG (0.0-30.0)
[2024-02-12 11:11] LABS: PSA FREE 0.1 ng/mL; PSA TOTAL 0.4 ng/mL (< OR = 4.0)
== END ==
LOC: M RAD 14:41
PROVIDERS: ATTEND Physician Assistant
DX: M25.511 Pain in right shoulder (principal); R16.2 Hepatomegaly with splenomegaly, not elsewhere classified; R60.0 Localized edema; I25.110 Atherosclerotic heart disease of native coronary artery with unstable angina pectoris; R79.89 Other specified abnormal findings of blood chemistry; E29.1 Testicular hypofunction; S46.011A Strain of muscle(s) and tendon(s) of the rotator cuff of right shoulder, initial encounter; X58.XXXA Exposure to other specified factors, initial encounter; Y92.9 Unspecified place or not applicable
CPT/HCPCS: 23350; 36415; 73200; 77002; 80053; 82043; 83880; 84154; 84402; 84403; 85027; Q9967

== ENCOUNTER → 2024-03-17 | Outpatient (CLI) | payer OTHER ==
[~2024-03-17] MED LIST changes: +ASHW300C2 PO; -ISOVUE-300 61% 100ML VIAL As Ordered ONE; +LEXA1TAB PO; -LIDOCAINE 1% MDV 20ML VIAL As Ordered ONE
[2024-03-18 09:32] LABS: ANA SCREEN, IFA NEGATIVE (NEGATIVE)
[2024-03-18 16:57] LABS: ANGIOTENSIN 1 CONVERTING ENZYM 21 U/L (9-67)
[2024-03-19 12:27] LABS: QuantiFERON-TB Gold Plus NEGATIVE (NEGATIVE)
== END ==
LOC: M LAB 09:42
PROVIDERS: ATTEND Nurse Practitioner Family
DX: L92.0 Granuloma annulare (principal); D22.5 Melanocytic nevi of trunk; L82.1 Other seborrheic keratosis; L81.4 Other melanin hyperpigmentation; L81.8 Other specified disorders of pigmentation; L82.0 Inflamed seborrheic keratosis; L29.8 Other pruritus; L30.4 Erythema intertrigo

== ENCOUNTER 2024-03-22 12:26 | Day surgery (SDC) | payer OTHER ==
[~2024-03-22] VITALS: Ht 177.8 cm; Wt 120.8 kg
[2024-03-22] MEDS ORDERED: LR 1,000 ML IV SCH ×2 (12:35→16:10)
[2024-03-22] MEDS ORDERED: GLUCOSE 4 GM CHEW PO PRN (13:25)
[2024-03-22] MEDS ORDERED: GLUCAGON INJ 1MG VIAL SC PRN (13:25)
[2024-03-22] MEDS ORDERED: DEXTROSE 50% 50ML SYRINGE IV PRN (13:25)
[2024-03-22] MEDS: INSULIN LISPRO (NovoLOG) PER UNIT SC PRN ×2 (13:31→17:27)
[2024-03-22] MEDS ORDERED: fentaNYL 100 MCG/2 ML INJECTION As Ordered ONE (13:59)
[2024-03-22] MEDS ORDERED: MIDAZOLAM INJ 2MG/2ML VIAL As Ordered ONE (13:59)
[2024-03-22] MEDS ORDERED: ROCURONIUM BROMIDE 50MG/5ML VIAL As Ordered ONE (14:00)
[2024-03-22] MEDS ORDERED: propofoL 200 MG/20 ML VIAL As Ordered ONE (14:00)
[2024-03-22] MEDS ORDERED: SUGAMMADEX SODIUM 500 MG/5 ML VIAL (BRIDION) As Ordered ONE (14:00)
[2024-03-22] MEDS ORDERED: KETOROLAC 60MG 2ML VIAL As Ordered ONE (14:00)
[2024-03-22] MEDS ORDERED: LIDOCAINE 2% 100MG/5ML SDV (FOR ANES.) As Ordered ONE (14:00)
[2024-03-22] MEDS ORDERED: ONDANSETRON 4MG 2ML VIAL As Ordered ONE (14:00)
[2024-03-22] MEDS: INDOCYANINE GREEN 25MG VIAL (IC-GREEN) IV ONE (14:42)
[2024-03-22] MEDS: ceFAZolin SOD 2 GM in IV 1 EA IV ONE (15:00)
[2024-03-22] MEDS: HEPARIN SOD (PORCINE) 5000UNITS/ML 1ML VIAL/SYRINGE SQ ONE (15:00)
[2024-03-22] MEDS ORDERED: ePHEDrine SULFATE 25 MG/5 ML(5MG/ML) SYRINGE As Ordered ONE (15:09)
[2024-03-22] MEDS ORDERED: ACETAMINOPHEN 1000MG 100ML IV BAG As Ordered ONE (15:10)
[2024-03-22] MEDS: HYDROMORPHONE HCL 0.5 MG/ 0.5 ML SYRINGE IV PRN (16:41)
[2024-03-22] MEDS: ONDANSETRON 4MG 2ML VIAL IV PRN (16:42)
[2024-03-22] MEDS: oxyCODONE 5MG TAB PO PRN ×2 (16:42→17:52)
[2024-03-22] MEDS ORDERED: ASPIRIN 81MG CHEW TABLET As Ordered ONE (16:58)
[2024-03-22] MEDS: ASPIRIN 81MG CHEW TABLET PO ONE (16:59)
[2024-03-22] MEDS: fentaNYL 100 MCG/2 ML INJECTION IV PRN (17:38)
[2024-03-22] MEDS: METOCLOPRAMIDE INJ 10MG/2ML VIAL IV PRN (17:39)
[2024-03-22 18:01] LABS: CK-MB VALUE MASS 1.2 NG/ML (<3.6)
[2024-03-22 18:03] LABS: MB/CK RELATIVE INDEX 0.93 (< OR =4)
[2024-03-22 19:06] VITALS: BP 162/80; TEMP 97.5; O2SAT 97
== END 2024-03-22 19:26 | disposition home or self-care (01) ==
LOC: M SDC 12:26
PROVIDERS: ATTEND Surgery
DX: K80.10 Calculus of gallbladder with chronic cholecystitis without obstruction (principal); I10 Essential (primary) hypertension; I42.8 Other cardiomyopathies; I25.10 Atherosclerotic heart disease of native coronary artery without angina pectoris; E11.9 Type 2 diabetes mellitus without complications; E03.9 Hypothyroidism, unspecified; E78.00 Pure hypercholesterolemia, unspecified; Z79.4 Long term (current) use of insulin; Z79.899 Other long term (current) drug therapy; Z79.84 Long term (current) use of oral hypoglycemic drugs; Z79.890 Hormone replacement therapy; Z79.82 Long term (current) use of aspirin; Z95.0 Presence of cardiac pacemaker; Z95.5 Presence of coronary angioplasty implant and graft; G47.30 Sleep apnea, unspecified; K21.9 Gastro-esophageal reflux disease without esophagitis; Z90.49 Acquired absence of other specified parts of digestive tract; Z88.0 Allergy status to penicillin; Z88.1 Allergy status to other antibiotic agents; Z88.8 Allergy status to other drugs, medicaments and biological substances; Z88.2 Allergy status to sulfonamides; Z86.010 Personal history of colon polyps
CPT/HCPCS: 36415; 47562; 82550; 82553; 84484; 88304; 93005; J0131; J0665; J0690; J1170; J1815; J1885; J2250; J2405; J2765; J3010; Q9968; S2900

== ENCOUNTER 2024-05-18 15:39 | Emergency (ER) | payer OTHER ==
[~2024-05-18] VITALS: Ht 177.8 cm; Wt 122.0 kg
[2024-05-18 21:48] LABS: BASO # 0.1 10^3/uL (0.0-0.2); BASO % 0.6 % (0.0-1.0); EOS # 0.2 10^3/uL (0.0-0.5); EOS % 2.5 % (0.0-3.0); HEMATOCRIT 46.4 % (42.0-52.0); HEMOGLOBIN 16.4 g/dl (13.5-17.5); LYMPH # 4.4 10^3/uL (1.5-5.0); LYMPH % 45.8 % (24.0-44.0); MEAN CORPUSCULAR HEMOGLOBIN 31.7 pg (27.0-33.0); MEAN CORPUSCULAR HGB CONC 35.3 g/dl (32.0-36.5); MEAN CORPUSCULAR VOLUME 89.6 fl (80.0-96.0); MONO # 0.7 10^3/uL (0.0-0.8); MONO % 6.8 % (2.0-8.0); NEUTROPHILS # 4.2 10^3/uL (1.5-8.5); NEUTROPHILS % 43.9 % (36.0-66.0); PLATELET COUNT, AUTOMATED 159 10^3/uL (150-450); RED BLOOD COUNT 5.18 10^6/uL (4.30-6.10); WHITE BLOOD COUNT 9.5 10^3/uL (4.0-10.0)
[2024-05-18 22:01] LABS: INR 1.01; PARTIAL THROMBOPLASTIN TIME 27.9 SECONDS (24.8-34.2); PROTHROMBIN TIME 13.6 SECONDS (12.5-14.5)
[2024-05-18 22:14] LABS: ALBUMIN 4.1 G/DL (3.2-5.2); ALKALINE PHOSPHATASE 119 U/L (40-129); ALT/SGPT 23 U/L (7.0-40); AST/SGOT < 8 U/L (<34); BILIRUBIN,DIRECT 0.3 MG/DL (<0.4); TOTAL PROTEIN 7.3 G/DL (5.7-8.2)
[2024-05-18] MEDS: DOXYCYCLINE HYCLATE 100MG TABLET PO ONE (22:57)
[2024-05-18] MEDS: KETOROLAC TROMETHAMINE 10 MG TAB PO ONE (22:57)
[2024-05-18] MEDS: methocarbamoL 750 MG TAB PO ONE (23:00)
[2024-05-18] MEDS ORDERED: METH-1165 PO (23:18)
[2024-05-18 23:33] VITALS: BP 157/81; TEMP 97.2; O2SAT 98
== END 2024-05-18 23:34 | disposition home or self-care (01) ==
LOC: M ED 15:39
DX: S76.212A Strain of adductor muscle, fascia and tendon of left thigh, initial encounter (principal); Y92.9 Unspecified place or not applicable; Y93.9 Activity, unspecified; Y99.9 Unspecified external cause status; F10.10 Alcohol abuse, uncomplicated; Z88.1 Allergy status to other antibiotic agents; Z88.8 Allergy status to other drugs, medicaments and biological substances; Z91.018 Allergy to other foods; Z79.51 Long term (current) use of inhaled steroids; Z79.1 Long term (current) use of non-steroidal anti-inflammatories (NSAID); Z79.4 Long term (current) use of insulin; Z79.899 Other long term (current) drug therapy

== ENCOUNTER 2024-07-07 23:32 | Emergency (ER) | payer OTHER ==
[~2024-07-07] VITALS: Ht 177.8 cm; Wt 122.7 kg
[~2024-07-07 23:32] MED LIST changes: +METH-1165 PO
[2024-07-08] MEDS: ACETAMINOPHEN 325 MG TAB PO ONE (00:08)
[2024-07-08 00:33] LABS: LIPASE 56 U/L (12-53)
[2024-07-08 00:34] LABS: CK-MB VALUE MASS 1.5 NG/ML (<3.6)
[2024-07-08 00:35] LABS: BASO % 0.3 % (0.0-1.0); EOS % 0.4 % (0.0-3.0); HEMATOCRIT 42.1 % (42.0-52.0); HEMOGLOBIN 15.1 g/dl (13.5-17.5); LYMPH # 0.9 10^3/uL (1.5-5.0); LYMPH % 8.9 % (24.0-44.0); MEAN CORPUSCULAR HEMOGLOBIN 31.7 pg (27.0-33.0); MEAN CORPUSCULAR HGB CONC 35.9 g/dl (32.0-36.5); MEAN CORPUSCULAR VOLUME 88.3 fl (80.0-96.0); MONO # 0.6 10^3/uL (0.0-0.8); MONO % 6.6 % (2.0-8.0); NEUTROPHILS % 83.6 % (36.0-66.0); RED BLOOD COUNT 4.77 10^6/uL (4.30-6.10); WHITE BLOOD COUNT 9.6 10^3/uL (4.0-10.0)
[2024-07-08 00:36] LABS: ALBUMIN 3.8 G/DL (3.2-5.2); ALKALINE PHOSPHATASE 100 U/L (40-129); ALT/SGPT 23 U/L (7.0-40); AST/SGOT 23 U/L (<34); BILIRUBIN,DIRECT 0.3 MG/DL (<0.4); BILIRUBIN,TOTAL 1.1 MG/DL (0.3-1.2); BLOOD UREA NITROGEN 16 MG/DL (9-23); CALCIUM LEVEL 8.4 MG/DL (8.3-10.6); CARBON DIOXIDE LEVEL 23 MMOL/L (20-31); CHLORIDE LEVEL 108 MMOL/L (98-107); CPK CREATINE PHOSPHOKINASE 159 U/L (46-171); CREATININE FOR GFR 0.92 MG/DL (0.70-1.30); GLOMERULAR FILTRATION RATE > 60.0 (>49); GLUCOSE, FASTING 124 MG/DL (74-106); MB/CK RELATIVE INDEX 0.94 (< OR =4); POTASSIUM SERUM 4.3 MMOL/L (3.5-5.1); SODIUM LEVEL 142 MMOL/L (136-145); TOTAL PROTEIN 6.3 G/DL (5.7-8.2)
[2024-07-08 01:01] LABS: PLATELET COUNT, AUTOMATED 161 10^3/uL (150-450)
[2024-07-08 02:01] LABS: CK-MB VALUE MASS 1.2 NG/ML (<3.6)
[2024-07-08 02:03] LABS: MB/CK RELATIVE INDEX 0.78 (< OR =4)
[2024-07-08] MEDS ORDERED: ISOVUE-370 76% 100ML VIAL As Ordered ONE (02:46)
[2024-07-08] MEDS: KETOROLAC 30 MG/ML 1ML VIAL IV ONE (02:46)
[2024-07-08 02:50] LABS: KETONE, URINE AUTO RFX NEGATIVE (NEGATIVE); LEUKOCYTE ESTERASE UR AUTO RFX NEGATIVE (NEGATIVE); MUCUS, URINE RFX SMALL (NEGATIVE)
[2024-07-08 04:29] VITALS: BP 122/58; TEMP 97.1; O2SAT 94
[2024-07-08] MEDS: LOPERAMIDE 2 MG CAPLET PO ONE (04:29)
== END 2024-07-08 04:38 | disposition home or self-care (01) ==
LOC: M ED 23:32 → EDBD 23:32 → M ED 07-08 04:38
DX: R07.89 Other chest pain (principal); R00.0 Tachycardia, unspecified; I45.81 Long QT syndrome; I44.7 Left bundle-branch block, unspecified; I25.2 Old myocardial infarction; E11.9 Type 2 diabetes mellitus without complications; K21.9 Gastro-esophageal reflux disease without esophagitis; I10 Essential (primary) hypertension; E78.5 Hyperlipidemia, unspecified; F41.9 Anxiety disorder, unspecified; Z88.1 Allergy status to other antibiotic agents; Z88.8 Allergy status to other drugs, medicaments and biological substances; Z79.51 Long term (current) use of inhaled steroids; Z79.1 Long term (current) use of non-steroidal anti-inflammatories (NSAID); Z79.4 Long term (current) use of insulin; Z79.899 Other long term (current) drug therapy
CPT/HCPCS: 71045; 71275; 74177; 80048; 80076; 81001; 82550; 82553; 83690; 84484; 85025; 87486; 87581; 87633; 87798; 93005; 93041; 94760; 96374; 99285; J1885; Q9967

== ENCOUNTER → 2024-09-23 | Outpatient (CLI) | payer OTHER ==
[~2024-09-23] MED LIST changes: +VANC125C13 PO; -VANC125C3 PO
[2024-09-23 17:13] LABS: HEMOGLOBIN A1c 7.2 % (4.0-6.0)
[2024-09-23 17:14] LABS: FREE T4 1.1 NG/DL (0.89-1.76)
[2024-09-23 17:15] LABS: THYROID STIMULATING HORMONE 3.786 uIU/ML (0.55-4.78)
== END ==
LOC: M PLALAB 16:06 → M LAB 16:06
PROVIDERS: ATTEND Physician Assistant
DX: E11.65 Type 2 diabetes mellitus with hyperglycemia (principal); Z79.4 Long term (current) use of insulin

== ENCOUNTER 2024-10-23 19:38 | Emergency (ER) | payer OTHER ==
[~2024-10-23] VITALS: Ht 177.8 cm; Wt 121.5 kg
[2024-10-23 20:22] LABS: BASO % 0.6 % (0.0-1.0); EOS # 0.3 10^3/uL (0.0-0.5); EOS % 5.7 % (0.0-3.0); HEMATOCRIT 43.8 % (42.0-52.0); HEMOGLOBIN 15.2 g/dl (13.5-17.5); LYMPH # 2.2 10^3/uL (1.5-5.0); LYMPH % 45.9 % (24.0-44.0); MEAN CORPUSCULAR HEMOGLOBIN 30.4 pg (27.0-33.0); MEAN CORPUSCULAR HGB CONC 34.7 g/dl (32.0-36.5); MEAN CORPUSCULAR VOLUME 87.6 fl (80.0-96.0); MONO # 0.5 10^3/uL (0.0-0.8); MONO % 9.8 % (2.0-8.0); NEUTROPHILS # 1.8 10^3/uL (1.5-8.5); NEUTROPHILS % 37.8 % (36.0-66.0); PLATELET COUNT, AUTOMATED 157 10^3/uL (150-450); WHITE BLOOD COUNT 4.7 10^3/uL (4.0-10.0)
[2024-10-23 20:44] LABS: ALBUMIN 3.9 G/DL (3.2-5.2); BILIRUBIN,DIRECT 0.2 MG/DL (<0.4); BILIRUBIN,TOTAL 0.6 MG/DL (0.3-1.2); TOTAL PROTEIN 6.7 G/DL (5.7-8.2)
[2024-10-23] MEDS ORDERED: ISOVUE-370 76% 100ML VIAL As Ordered ONE (21:12)
[2024-10-23] MEDS: KETOROLAC 30 MG/ML 1ML VIAL IV ONE (21:16)
[2024-10-23] MEDS: NS (Normal Saline) 0.9% 1,000 ML IV ONE (21:16)
[2024-10-23] MEDS: ONDANSETRON 4MG 2ML VIAL IV ONE (21:16)
[2024-10-23] MEDS: INSULIN LISPRO (NovoLOG) PER UNIT SC ONE (21:17)
[2024-10-23 22:25] VITALS: BP 140/67; TEMP 98.3; O2SAT 98
== END 2024-10-23 22:42 | disposition home or self-care (01) ==
LOC: M ED 19:38
DX: R10.9 Unspecified abdominal pain (principal); J10.1 Influenza due to other identified influenza virus with other respiratory manifestations; I25.119 Atherosclerotic heart disease of native coronary artery with unspecified angina pectoris; E11.9 Type 2 diabetes mellitus without complications; Z88.1 Allergy status to other antibiotic agents; Z88.8 Allergy status to other drugs, medicaments and biological substances; Z79.1 Long term (current) use of non-steroidal anti-inflammatories (NSAID); Z79.51 Long term (current) use of inhaled steroids; Z79.4 Long term (current) use of insulin; Z79.899 Other long term (current) drug therapy
CPT/HCPCS: 74177; 80047; 80076; 83690; 85025; 87486; 87507; 87581; 87633; 87798; 96361; 96372; 96374; 99284; J1815; J1885; J2405; Q9967

== ENCOUNTER 2025-02-05 19:48 | Observation (INO) | payer OTHER ==
[~2025-02-05] VITALS: Ht 177.8 cm; Wt 115.1 kg
[~2025-02-05 19:48] MED LIST changes: +LIDO1ADH93 TOP; -LIDO5DIS41 TOP
[2025-02-05 20:23] LABS: BASO # 0.0 10^3/uL (0.0-0.2); BASO % 0.6 % (0.0-1.0); EOS # 0.2 10^3/uL (0.0-0.5); EOS % 3.9 % (0.0-3.0); LYMPH # 2.1 10^3/uL (1.5-5.0); LYMPH % 33.4 % (24.0-44.0); MONO # 0.4 10^3/uL (0.0-0.8); MONO % 6.9 % (2.0-8.0); NEUTROPHILS # 3.4 10^3/uL (1.5-8.5); NEUTROPHILS % 55.0 % (36.0-66.0); PLATELET COUNT, AUTOMATED 159 10^3/uL (150-450)
[2025-02-05] MEDS: NITROGLYCERIN 0.4 MG SUBL TABLET SL PRN (20:27)
[2025-02-05 20:40] LABS: INR 1.47
[2025-02-05 20:46] LABS: CK-MB VALUE MASS 3.3 NG/ML (<3.6)
[2025-02-05 20:48] LABS: ALT/SGPT 23.0 U/L (7.0-40); AST/SGOT 20.0 U/L (<34); CALCIUM LEVEL 8.3 MG/DL (8.3-10.6); CARBON DIOXIDE LEVEL 26.0 MMOL/L (20-31); CHLORIDE LEVEL 106.0 MMOL/L (98-107); CPK CREATINE PHOSPHOKINASE 184.0 U/L (46-171); CREATININE FOR GFR 1.14 MG/DL (0.70-1.30); GLOMERULAR FILTRATION RATE 72.3 (>49); MB/CK RELATIVE INDEX 1.79 (< OR =4); POTASSIUM SERUM 3.9 MMOL/L (3.5-5.1); SODIUM LEVEL 146.0 MMOL/L (136-145)
[2025-02-05] MEDS ORDERED: ISOVUE-370 76% 100 ML VIAL As Ordered ONE (21:26)
[2025-02-05 22:17] LABS: CK-MB VALUE MASS 3.2 NG/ML (<3.6)
[2025-02-05 22:21] LABS: CPK CREATINE PHOSPHOKINASE 166.0 U/L (46-171); MB/CK RELATIVE INDEX 1.92 (< OR =4)
[2025-02-05] MEDS: FUROSEMIDE 40 MG/4 ML VIAL IV ONE (23:05)
[2025-02-06] VITALS (8 sets, daily range): BP systolic 129–153; BP diastolic 60–72; TEMP 97–98; O2SAT 95–98
[2025-02-06] MEDS ORDERED: LOSA25TA13 PO (00:35)
[2025-02-06] MEDS ORDERED: FAMO40TA3 PO (00:35)
[2025-02-06] MEDS ORDERED: CARV12.5 PO (00:53)
[2025-02-06] MEDS ORDERED: FURO40TA2 PO (00:53)
[2025-02-06] MEDS ORDERED: METO1TAB87 PO (00:53)
[2025-02-06] MEDS ORDERED: WARF-58 PO (00:53)
[2025-02-06] MEDS ORDERED: TRUL0.5I SC (00:53)
[2025-02-06] MEDS ORDERED: WARF4TAB51 PO (00:53)
[2025-02-06] MEDS ORDERED: FUROSEMIDE 40 MG/4 ML VIAL IV SCH (00:55)
[2025-02-06] MEDS: WARFARIN SOD 4MG TAB PO SCH (00:55)
[2025-02-06] MEDS ORDERED: MAALOX 30 ML SUSP *UDC PO PRN (00:55)
[2025-02-06] MEDS ORDERED: MOM 30 ML SUSPENSION UDC PO PRN (00:55)
[2025-02-06] MEDS ORDERED: ACETAMINOPHEN 325 MG TAB PO PRN (00:55)
[2025-02-06] MEDS ORDERED: INSU100I24 SC (00:59)
[2025-02-06] MEDS: WARFARIN SOD 3MG TAB PO SCH (01:00)
[2025-02-06] MEDS ORDERED: DEXTROSE 50% 50 ML SYRINGE IV PRN (01:05)
[2025-02-06] MEDS ORDERED: GLUCOSE 4 GM CHEW PO PRN (01:05)
[2025-02-06] MEDS ORDERED: POTASSIUM CHLORIDE 10MEQ SR TABLET PO SCH (01:05)
[2025-02-06] MEDS ORDERED: GLUCAGON INJ 1 MG VIAL SC PRN (01:05)
[2025-02-06] MEDS ORDERED: HOME MED LIST COMPLETE! XX SCH (01:05)
[2025-02-06 04:48] LABS: PLATELET COUNT, AUTOMATED 148 10^3/uL (150-450)
[2025-02-06 05:04] LABS: INR 1.3
[2025-02-06 05:12] LABS: ALT/SGPT 23.0 U/L (7.0-40); AST/SGOT 18.0 U/L (<34); CALCIUM LEVEL 8.3 MG/DL (8.3-10.6); CARBON DIOXIDE LEVEL 28.0 MMOL/L (20-31); CHLORIDE LEVEL 106.0 MMOL/L (98-107); CREATININE FOR GFR 0.96 MG/DL (0.70-1.30); GLOMERULAR FILTRATION RATE 88.8 (>49); MAGNESIUM LEVEL 1.9 MG/DL (1.8-2.4); POTASSIUM SERUM 3.8 MMOL/L (3.5-5.1); SODIUM LEVEL 146.0 MMOL/L (136-145)
[2025-02-06] MEDS: DOCUSATE SODIUM 100 MG CAPSULE PO SCH (09:00)
[2025-02-06] MEDS: INSULIN LISPRO (NovoLOG) PER UNIT SC SCH ×2 (09:11→20:22)
[2025-02-06] MEDS: ENOXAPARIN 120 MG/0.8 ML SYRINGE SC SCH (09:11)
[2025-02-06 10:46] LABS: ESTIMATED AVERAGE GLUCOSE 140.0 MG/DL (60-110)
[2025-02-06] MEDS: LanTUS (INSULIN GLARGINE INJ) 1 UNITS/0.01 ML SC SCH (11:54)
[2025-02-06] MEDS: ESCITALOPRAM OXALATE 10 MG TABLET PO SCH (11:54)
[2025-02-06] MEDS: LOSARTAN 25 MG TAB PO SCH (11:55)
[2025-02-06] MEDS: LEVOTHYROXINE 137 MCG TABLET (0.137 MG) PO SCH (11:55)
[2025-02-06] MEDS: CETIRIZINE 10 MG TAB PO SCH (11:56)
[2025-02-06] MEDS: ASPIRIN 81 MG ENTERIC TABLET PO SCH (11:56)
[2025-02-06] MEDS: NS 500 ML IV ONE (11:57)
[2025-02-06] MEDS: WARFARIN SOD 5MG TAB PO ONE (17:39)
[2025-02-06] MEDS: ATORVASTATIN 20 MG TAB PO SCH (20:21)
[2025-02-06] MEDS: FAMOTIDINE 20 MG TAB PO SCH (20:22)
[2025-02-07] VITALS (9 sets, daily range): BP systolic 105–144; BP diastolic 44–65; TEMP 96.9–97.7; O2SAT 94–98
[2025-02-07 07:31] LABS: PLATELET COUNT, AUTOMATED 147 10^3/uL (150-450)
[2025-02-07 07:40] LABS: INR 1.28
[2025-02-07 07:49] LABS: ALT/SGPT 20 U/L (7.0-40); AST/SGOT 16 U/L (<34); CALCIUM LEVEL 8.6 MG/DL (8.3-10.6); CARBON DIOXIDE LEVEL 27 MMOL/L (20-31); CHLORIDE LEVEL 106 MMOL/L (98-107); CREATININE FOR GFR 0.83 MG/DL (0.70-1.30); GLOMERULAR FILTRATION RATE > 90.0 (>49); MAGNESIUM LEVEL 1.8 MG/DL (1.8-2.4); POTASSIUM SERUM 4.0 MMOL/L (3.5-5.1); SODIUM LEVEL 144 MMOL/L (136-145)
[2025-02-07] MEDS: WARFARIN SOD 5MG TAB PO ONE (18:37)
[2025-02-08] VITALS: BP 152/67; TEMP 97.2; O2SAT 95
[2025-02-08 04:52] VITALS: BP 133/67; TEMP 97.9; O2SAT 99
[2025-02-08 07:26] VITALS: BP 146/67; TEMP 97.4; O2SAT 97
[2025-02-08 07:34] LABS: INR 1.51
[2025-02-08 07:48] LABS: CALCIUM LEVEL 8.3 MG/DL (8.3-10.6); CARBON DIOXIDE LEVEL 26 MMOL/L (20-31); CHLORIDE LEVEL 108 MMOL/L (98-107); CREATININE FOR GFR 0.79 MG/DL (0.70-1.30); GLOMERULAR FILTRATION RATE > 90.0 (>49); POTASSIUM SERUM 3.9 MMOL/L (3.5-5.1); SODIUM LEVEL 144 MMOL/L (136-145)
[2025-02-08 08:29] VITALS: BP 146/67
[2025-02-08 12:00] VITALS: BP 162/71; TEMP 96.8; O2SAT 96
[2025-02-08] MEDS ORDERED: ENOX40IN3 SC (14:50)
[2025-02-08] MEDS ORDERED: INSULANT SC (14:58)
[2025-02-08] MEDS ORDERED: WARFARIN SOD 5MG TAB PO ONE (17:00)
== END 2025-02-08 16:20 | disposition home or self-care (01) ==
LOC: M ED 19:48 → INTOOBSV 23:46 → M ED INP 23:46 → M ICU 02-06 01:15 → M MS4PR 02-06 20:30
PROVIDERS: ADMIT Student in an Organized Health Care Education/Training Program; ATTEND General Practice
DX: I50.9 Heart failure, unspecified (principal); I25.10 Atherosclerotic heart disease of native coronary artery without angina pectoris; R79.89 Other specified abnormal findings of blood chemistry; Z95.2 Presence of prosthetic heart valve; Z91.148 Patient's other noncompliance with medication regimen for other reason; R55 Syncope and collapse; E86.0 Dehydration; E87.0 Hyperosmolality and hypernatremia; R07.9 Chest pain, unspecified; I71.21 Aneurysm of the ascending aorta, without rupture; Z95.828 Presence of other vascular implants and grafts; E03.9 Hypothyroidism, unspecified; I10 Essential (primary) hypertension; K21.9 Gastro-esophageal reflux disease without esophagitis; E78.5 Hyperlipidemia, unspecified; F41.9 Anxiety disorder, unspecified; F32.A Depression, unspecified; E11.9 Type 2 diabetes mellitus without complications; I44.2 Atrioventricular block, complete; Z95.0 Presence of cardiac pacemaker; G47.33 Obstructive sleep apnea (adult) (pediatric); R63.5 Abnormal weight gain; K59.00 Constipation, unspecified; D50.9 Iron deficiency anemia, unspecified; Z95.5 Presence of coronary angioplasty implant and graft; Z90.89 Acquired absence of other organs; Z90.49 Acquired absence of other specified parts of digestive tract; Z80.1 Family history of malignant neoplasm of trachea, bronchus and lung; Z80.0 Family history of malignant neoplasm of digestive organs; Z82.3 Family history of stroke; Z83.3 Family history of diabetes mellitus; Z82.49 Family history of ischemic heart disease and other diseases of the circulatory system; Z82.0 Family history of epilepsy and other diseases of the nervous system; F17.221 Nicotine dependence, chewing tobacco, in remission; Z88.0 Allergy status to penicillin; Z88.2 Allergy status to sulfonamides; Z88.8 Allergy status to other drugs, medicaments and biological substances; Z88.1 Allergy status to other antibiotic agents; Z91.018 Allergy to other foods; Z79.899 Other long term (current) drug therapy; Z79.82 Long term (current) use of aspirin; Z79.890 Hormone replacement therapy; Z79.85 Long-term (current) use of injectable non-insulin antidiabetic drugs; Z79.01 Long term (current) use of anticoagulants
CPT/HCPCS: 36415; 71045; 71275; 80048; 80053; 80076; 82550; 82553; 83036; 83735; 83880; 84484; 85025; 85027; 85610; 85730; 87486; 87581; 87633; 87798; 93005; 93041; 93306; 94760; 96372; 96374; 99285; J1650; J1815; J1938; Q9967

== ENCOUNTER → 2025-02-16 | Outpatient (CLI) | payer OTHER ==
[~2025-02-16] MED LIST changes: +CARV12.5 PO; +ENOX40IN3 SC; +FAMO40TA3 PO; +FURO40TA2 PO; +INSU100I24 SC; +INSULANT SC; +LOSA25TA13 PO; +METO1TAB87 PO; +WARF-58 PO; +WARF4TAB51 PO
[2025-02-16 17:49] LABS: PLATELET COUNT, AUTOMATED 206 10^3/uL (150-450)
[2025-02-16 18:15] LABS: ALT/SGPT 43.0 U/L (7.0-40); AST/SGOT 19.0 U/L (<34); CALCIUM LEVEL 9.3 MG/DL (8.3-10.6); CARBON DIOXIDE LEVEL 27.0 MMOL/L (20-31); CHLORIDE LEVEL 108.0 MMOL/L (98-107); CREATININE FOR GFR 1.02 MG/DL (0.70-1.30); GLOMERULAR FILTRATION RATE 82.6 (>49); POTASSIUM SERUM 4.3 MMOL/L (3.5-5.1); SODIUM LEVEL 148.0 MMOL/L (136-145)
== END ==
LOC: M PLALAB 16:06
DX: E11.9 Type 2 diabetes mellitus without complications (principal); I50.9 Heart failure, unspecified

== ENCOUNTER 2025-05-14 00:03 | Observation (INO) | payer OTHER ==
[~2025-05-14] VITALS: Ht 177.8 cm; Wt 113.8 kg
[2025-05-14 00:48] LABS: VENOUS BASE EXCESS 1.0 (-2.0-2.0); VENOUS HCO3 20.1 MMOL/L (23.0-27.0); VENOUS O2 SATURATION 99.1 % (60.0-80.0); VENOUS PARTIAL PRESSURE CO2 21.8 mmHg (38.0-50.0); VENOUS PARTIAL PRESSURE O2 150.6 mmHg (30.0-50.0); VENOUS PH 7.583 UNITS (7.330-7.430); VENOUS STANDARD HCO3 25.4 MMOL/L; VENOUS TOTAL CO2 20.8 MMOL/L (24.0-28.0)
[2025-05-14] MEDS: PANTOPRAZOLE 40MG VIAL IV ONE (00:51)
[2025-05-14] MEDS: MORPHINE 4 MG/ML 1 ML VIAL IV ONE ×3 (00:51→02:26)
[2025-05-14 00:58] LABS: BASO # 0.0 10^3/uL (0.0-0.2); BASO % 0.2 % (0.0-1.0); EOS # 0.1 10^3/uL (0.0-0.5); EOS % 1.1 % (0.0-3.0); LYMPH # 2.2 10^3/uL (1.5-5.0); LYMPH % 18.2 % (24.0-44.0); MONO # 0.8 10^3/uL (0.0-0.8); MONO % 6.8 % (2.0-8.0); NEUTROPHILS # 9.0 10^3/uL (1.5-8.5); NEUTROPHILS % 73.2 % (36.0-66.0); PLATELET COUNT, AUTOMATED 151 10^3/uL (150-450)
[2025-05-14 01:20] LABS: CK-MB VALUE MASS 2.8 NG/ML (<3.6)
[2025-05-14 01:21] LABS: FREE T4 1.10 NG/DL (0.89-1.76)
[2025-05-14] MEDS ORDERED: ISOVUE-370 76% 100 ML VIAL As Ordered ONE (01:25)
[2025-05-14 01:27] LABS: C REACTIVE PROTEIN QUANTITATIV < 0.50 MG/DL (<1.0); INR 1.31
[2025-05-14 01:28] LABS: ALT/SGPT 19 U/L (7.0-40); AST/SGOT 18 U/L (<34); CALCIUM LEVEL 8.8 MG/DL (8.3-10.6); CARBON DIOXIDE LEVEL 19 MMOL/L (20-31); CHLORIDE LEVEL 108 MMOL/L (98-107); CREATININE FOR GFR 0.92 MG/DL (0.70-1.30); GLOMERULAR FILTRATION RATE > 90.0 (>49); POTASSIUM SERUM 3.7 MMOL/L (3.5-5.1); SODIUM LEVEL 142 MMOL/L (136-145)
[2025-05-14 01:33] LABS: CPK CREATINE PHOSPHOKINASE 136 U/L (46-171); MB/CK RELATIVE INDEX 2.05 (< OR =4)
[2025-05-14] MEDS: ONDANSETRON 4MG/2ML VIAL IV ONE (01:38)
[2025-05-14] MEDS: NS (Normal Saline) 0.9% 1,000 ML IV ONE ×2 (02:27→02:35)
[2025-05-14 03:20] LABS: CK-MB VALUE MASS 2.6 NG/ML (<3.6)
[2025-05-14 03:33] LABS: CPK CREATINE PHOSPHOKINASE 127.0 U/L (46-171); MB/CK RELATIVE INDEX 2.04 (< OR =4)
[2025-05-14 05:34] LABS: KETONE, URINE AUTO RFX 1+ mg/dL (NEGATIVE); LEUKOCYTE ESTERASE UR AUTO RFX NEGATIVE (NEGATIVE); NITRITE, URINE AUTO RFX NEGATIVE (NEGATIVE); RBC, URINE AUTO RFX 0 /HPF (0-3); SQUAM EPITHELIAL CELL UR AURFX 0 /HPF (0-6); WBC, URINE AUTO RFX 1 /HPF (0-3)
[2025-05-14] MEDS: LEVOTHYROXINE 137 MCG TABLET (0.137 MG) PO SCH (06:00)
[2025-05-14] MEDS ORDERED: DULA3PEN SQ (06:52)
[2025-05-14] MEDS ORDERED: INSULANT SC (06:52)
[2025-05-14] MEDS ORDERED: WARF-23 PO (06:52)
[2025-05-14] MEDS ORDERED: JARD1TAB PO (06:54)
[2025-05-14] MEDS ORDERED: HOME MED LIST COMPLETE! XX SCH (06:55)
[2025-05-14] MEDS: LanTUS (INSULIN GLARGINE INJ) 1 UNITS/0.01 ML SC SCH (09:00)
[2025-05-14 09:01] LABS: CALCIUM LEVEL 8.0 MG/DL (8.3-10.6); CARBON DIOXIDE LEVEL 29.0 MMOL/L (20-31); CHLORIDE LEVEL 105.0 MMOL/L (98-107); CREATININE FOR GFR 1.07 MG/DL (0.70-1.30); GLOMERULAR FILTRATION RATE 78.0 (>49); POTASSIUM SERUM 5.2 MMOL/L (3.5-5.1); SODIUM LEVEL 144.0 MMOL/L (136-145)
[2025-05-14] MEDS ORDERED: MAALOX 30 ML SUSP *UDC PO PRN (10:15)
[2025-05-14] MEDS ORDERED: WARFARIN SOD 5MG TAB PO SCH (10:20)
[2025-05-14] MEDS: DOXYCYCLINE HYCLATE 100 MG TABLET PO SCH (10:45)
[2025-05-14] MEDS: FUROSEMIDE 40 MG TAB PO SCH (11:21)
[2025-05-14] MEDS: CETIRIZINE 10 MG TAB PO SCH (11:21)
[2025-05-14] MEDS ORDERED: ONDANSETRON 4MG/2ML VIAL IV PRN (12:05)
[2025-05-14] MEDS: MAALOX 30 ML SUSP *UDC PO ONE (12:13)
[2025-05-14 12:34] LABS: INR 1.28
[2025-05-14 13:26] VITALS: BP 134/63; TEMP 98.6; O2SAT 93
[2025-05-14] MEDS ORDERED: GLUCOSE 4 GM CHEW PO PRN (14:00)
[2025-05-14] MEDS ORDERED: GLUCAGON INJ 1 MG VIAL SC PRN (14:00)
[2025-05-14] MEDS ORDERED: DEXTROSE 50% 50 ML SYRINGE IV PRN (14:00)
[2025-05-14] MEDS: ENOXAPARIN 100 MG/1 ML SYRINGE (J1650 PER 10MG) SC SCH (14:05)
[2025-05-14] MEDS: ACETAMINOPHEN 325 MG TAB PO PRN (15:59)
[2025-05-14] MEDS: WARFARIN SOD 5MG TAB PO SCH (16:43)
[2025-05-14] MEDS: WARFARIN SOD 3MG TAB PO SCH (16:43)
[2025-05-14] MEDS: INSULIN LISPRO (NovoLOG) PER UNIT SC SCH ×2 (16:43→20:21)
[2025-05-14 20:03] VITALS: BP 117/58; TEMP 98.3; O2SAT 93
[2025-05-14] MEDS: FAMOTIDINE 20 MG TAB PO SCH (20:48)
[2025-05-14] MEDS: ESCITALOPRAM OXALATE 10 MG TABLET PO SCH (20:49)
[2025-05-15 04:09] VITALS: BP 109/51; TEMP 98.3; O2SAT 92
[2025-05-15 06:22] LABS: CALCIUM LEVEL 8.2 MG/DL (8.3-10.6); CARBON DIOXIDE LEVEL 28.0 MMOL/L (20-31); CHLORIDE LEVEL 106.0 MMOL/L (98-107); CREATININE FOR GFR 0.99 MG/DL (0.70-1.30); GLOMERULAR FILTRATION RATE 85.6 (>49); INR 1.59; MAGNESIUM LEVEL 2.0 MG/DL (1.8-2.4); POTASSIUM SERUM 3.8 MMOL/L (3.5-5.1); SODIUM LEVEL 142.0 MMOL/L (136-145)
[2025-05-15 09:51] VITALS: BP 136/63; TEMP 97.9
[2025-05-15 15:19] LABS: INR 1.56
[2025-05-15] MEDS: WARFARIN SOD 1MG TAB PO ONE (18:11)
[2025-05-15 20:00] VITALS: BP 122/72; TEMP 97.7; O2SAT 96
[2025-05-16 04:00] VITALS: BP 127/79; TEMP 98.6; O2SAT 97
[2025-05-16 06:21] LABS: INR 1.61
[2025-05-16 08:35] VITALS: BP 143/63
[2025-05-16] MEDS ORDERED: DOXY100T PO (10:18)
[2025-05-19 05:12] LABS: BORRELIA SPECIES DNA NOT DETECTED (NOT DETECT)
== END 2025-05-16 12:00 | disposition home or self-care (01) ==
LOC: M ED 00:03 → M ED INP 00:04 → M MS4PR 13:26
PROVIDERS: ADMIT Student in an Organized Health Care Education/Training Program; ATTEND Student in an Organized Health Care Education/Training Program
DX: K52.9 Noninfective gastroenteritis and colitis, unspecified (principal); E11.9 Type 2 diabetes mellitus without complications; I50.9 Heart failure, unspecified; Z95.2 Presence of prosthetic heart valve; Z79.01 Long term (current) use of anticoagulants; Z95.0 Presence of cardiac pacemaker; E03.9 Hypothyroidism, unspecified; K21.9 Gastro-esophageal reflux disease without esophagitis; I11.0 Hypertensive heart disease with heart failure; E66.01 Morbid (severe) obesity due to excess calories; E78.5 Hyperlipidemia, unspecified; F41.9 Anxiety disorder, unspecified; F90.9 Attention-deficit hyperactivity disorder, unspecified type; F32.A Depression, unspecified; D50.9 Iron deficiency anemia, unspecified; E87.5 Hyperkalemia; G47.33 Obstructive sleep apnea (adult) (pediatric); Z79.82 Long term (current) use of aspirin; Z79.4 Long term (current) use of insulin; Z79.890 Hormone replacement therapy; Z88.0 Allergy status to penicillin; Z88.2 Allergy status to sulfonamides; Z88.8 Allergy status to other drugs, medicaments and biological substances
CPT/HCPCS: 36415; 70450; 71045; 71275; 74177; 80048; 80076; 81001; 82550; 82553; 82803; 83605; 83690; 83735; 83880; 84439; 84443; 84484; 85025; 85610; 85652; 85730; 86140; 87040; 87077; 87154; 87468; 87469; 87478; 87484; 87486; 87507; 87581; 87633; 87798; 87801; 93005; 93041; 94760; 96361; 96372; 96374; 96375; 96376; 99285; J1650; J1815; J2405; J2470; J2550; Q9967

== ENCOUNTER → 2025-06-20 | Outpatient (REF) | payer OTHER ==
[~2025-06-20] MED LIST changes: -COEN100C4 PO; +DULA3PEN SQ; +UBID100C3 PO; +WARF-23 PO
== END ==
LOC: M SFHCPLAZ 10:15
DX: Z53.9 Procedure and treatment not carried out, unspecified reason (principal); E03.9 Hypothyroidism, unspecified

== ENCOUNTER → 2025-06-20 | Outpatient (CLI) | payer OTHER | LOC: M PLALAB 10:48 | DX: E03.9 Hypothyroidism, unspecified (principal) ==

== ENCOUNTER → 2025-06-20 | Outpatient (CLI) | payer OTHER ==
[2025-06-20 13:51] LABS: PLATELET COUNT, AUTOMATED 187 10^3/uL (150-450)
[2025-06-20 13:59] LABS: ALT/SGPT 24.0 U/L (7.0-40); AST/SGOT 19.0 U/L (<34); CALCIUM LEVEL 9.1 MG/DL (8.3-10.6); CARBON DIOXIDE LEVEL 28.0 MMOL/L (20-31); CHLORIDE LEVEL 109.0 MMOL/L (98-107); CHOLESTEROL LEVEL 225.0 MG/DL (<200); CHOLESTEROL RISK RATIO 5.92 (<5); CREATININE FOR GFR 0.97 MG/DL (0.70-1.30); GLOMERULAR FILTRATION RATE 87.7 (>49); LDL CHOLESTEROL 151.0 MG/DL (<100); NON-HDL-C 187.0 MG/DL; POTASSIUM SERUM 4.4 MMOL/L (3.5-5.1); SODIUM LEVEL 143.0 MMOL/L (136-145); TRIGLYCERIDES LEVEL 180.0 MG/DL (<150)
[2025-06-20 14:31] LABS: ESTIMATED AVERAGE GLUCOSE 134.0 MG/DL (60-110)
== END ==
LOC: M PLALAB 10:45
PROVIDERS: ATTEND Family Medicine
DX: E11.65 Type 2 diabetes mellitus with hyperglycemia (principal); D64.9 Anemia, unspecified; I25.110 Atherosclerotic heart disease of native coronary artery with unstable angina pectoris; K76.0 Fatty (change of) liver, not elsewhere classified